=== PATIENT | male | born 1940 | race African-American/Black ===

== ENCOUNTER 2017-01-29 12:52 | Inpatient (IN) | payer OTHER ==
[2017-01-29 13:03] VITALS: BMI 38.0
--- NOTE | 2017-01-29 13:22 | PDOC ---
History of Present Illness - General History Source: Patient, EMS Exam Limitations: No Limitations <Jaden Ponce - Last Filed: 01/29/17 14:12> - History of Present Illness Initial Comments: 01/29/17 13:28 The patient is a 76 year old male with a past medical hx of diabetes, pulmonary HTN, hyperlipidemia, CHF, coronary artery disease s/p stent placement who presents to the ED via EMS from Dr. Sigala office for evaluation of tachycardia. The patient notes he had a routine check up today with his Raw Products Director, Dr. Lyle, who noticed he was tachycardic. He states he was then sent to the ED for further work up and evaluation. The patient reports he has been feel short of breath for the past few days but denies any chest pain or palpitations. The patient denies any nausea, vomiting, diarrhea, fever, chills Raw Products Director: Dr. Lyle <Pam Corrigan - Last Filed: 01/29/17 14:51> - General Chief Complaint: Shortness of Breath Stated Complaint: TACHYCARDIA Time Seen by Provider: 01/29/17 13:02 Past History - Past Medical History Cardiac Disorders: Yes (cardiomyopathy,cad) Diabetes: Yes HTN: Yes Hypercholesterolemia: Yes - Surgical History Cardiac Surgery: Yes - Psycho/Social/Smoking Cessation Hx Anxiety: No Suicidal Ideation: No Smoking Status: No Smoking History: Never smoked Have you smoked in the past 12 months: No Number of Cigarettes Smoked Daily: 0 Information on smoking cessation initiated: No Hx Alcohol Use: No Drug/Substance Use Hx: No Substance Use Type: None Hx Substance Use Treatment: No <Jaden Ponce - Last Filed: 01/29/17 14:12> <Pam Corrigan - Last Filed: 01/29/17 14:51> - Past Medical History Allergies/Adverse Reactions: Allergies Allergy/AdvReac Type Severity Reaction Status Date / Time No Known Allergies Allergy Unverified 01/29/17 12:58 Home Medications: Ambulatory Orders Alendronate Na [Fosamax] 70 mg PO Q7D 01/29/17 Amlodipine Besylate [Norvasc -] 5 mg PO DAILY 01/29/17 Aspirin [Ecotrin] 81 mg PO HS 01/29/17 Atorvastatin Calcium 40 mg PO DAILY 01/29/17 Escitalopram Oxalate [Lexapro -] 10 mg PO DAILY 01/29/17 Furosemide [Lasix] 80 mg PO DAILY 01/29/17 Isosorbide Mononitrate [Imdur -] 0 mg PO DAILY 01/29/17 Linagliptin [Tradjenta] 5 mg PO DAILY 01/29/17 Metoclopramide HCl [Reglan] 5 mg PO BID 01/29/17 Sacubitril/Valsartan [Entresto 24 mg-26 mg Tablet] 1 tab PO BID 01/29/17 Tamsulosin HCl [Flomax] 0.4 mg PO HS 01/29/17 Review of Systems - Review of Systems Able to Perform ROS?: Yes Comments:: 01/29/17 13:29 GENERAL/CONSTITUTIONAL: No fever or chills. No weakness. HEAD, EYES, EARS, NOSE AND THROAT: No change in vision. No ear pain or discharge. No sore throat. CARDIOVASCULAR: No chest pain, palpitations RESPIRATORY: +Shortness of breath. No cough, wheezing, or hemoptysis. GASTROINTESTINAL: No nausea, vomiting, diarrhea or constipation. GENITOURINARY: No dysuria, frequency, or change in urination. MUSCULOSKELETAL: No joint or muscle swelling or pain. No neck or back pain. SKIN: No rash NEUROLOGIC: No headache, vertigo, loss of consciousness, or change in strength/ sensation. ENDOCRINE: No increased thirst. No abnormal weight change. HEMATOLOGIC/LYMPHATIC: No anemia, easy bleeding, or history of blood clots. ALLERGIC/IMMUNOLOGIC: No hives or skin allergy. <Pam Corrigan - Last Filed: 01/29/17 14:51> *Physical Exam - Vital Signs Last Vital Signs Temp Pulse Resp BP Pulse Ox 98.4 F 91 H 22 138/95 100 01/29/17 12:59 01/29/17 12:59 01/29/17 12:59 01/29/17 12:59 01/29/17 12:59 <Jaden Ponce - Last Filed: 01/29/17 14:12> - Vital Signs Last Vital Signs Temp Pulse Resp BP Pulse Ox 98.4 F 91 H 22 138/95 98 01/29/17 12:59 01/29/17 12:59 01/29/17 12:59 01/29/17 12:59 01/29/17 13:17 - Physical Exam Comments: 01/29/17 13:29 GENERAL: Awake, alert, and fully oriented, in no acute distress HEAD: No signs of trauma EYES: PERRLA, EOMI, sclera anicteric, conjunctiva clear ENT: Auricles normal inspection, hearing grossly normal, nares patent, oropharynx clear without exudates. Moist mucosa NECK: Normal ROM, supple, no lymphadenopathy, JVD, or masses LUNGS: Breath sounds equal, clear to auscultation bilaterally. No wheezes, and no crackles HEART: Regular rate and rhythm, normal S1 and S2, no murmurs, rubs or gallops ABDOMEN: Soft, nontender, normoactive bowel sounds. No guarding, no rebound. No masses EXTREMITIES: +Bilateral trace lower extremity edema. Normal range of motion. No clubbing or cyanosis. No cords, erythema, or tenderness NEUROLOGICAL: Cranial nerves II through XII grossly intact. Normal speech, normal gait SKIN: Warm, Dry, normal turgor, no rashes or lesions noted. <Pam Corrigan - Last Filed: 01/29/17 14:51> Heart Score/ECG Review #1 ECG reviewed & interpreted by me at: 13:05 01/29/17 13:17 NSR 86, left axis deviation, RBBB, Q wave V1, no std/ccee, T wave flat III, avF, QTC 512 msec <Jaden Ponce - Last Filed: 01/29/17 14:12> ED Treatment Course - LABORATORY CBC & Chemistry Diagram: 01/29/17 13:25 01/29/17 13:25 - RADIOLOGY Radiology Studies Ordered: Category Date Time Status CHEST X-RAY PORTABLE* [RAD] Stat Radiology 01/29/17 13:03 Ordered <Jaden Ponce - Last Filed: 01/29/17 14:12> - LABORATORY CBC & Chemistry Diagram: 01/29/17 13:25 01/29/17 13:25 - RADIOLOGY Radiograph Interpretation: 01/29/17 14:51 RAD/CHEST X-RAY PORTABLE* Chest: HISTORY: Tachycardia. Frontal view of the chest is provided. Cardiac silhouette appears markedly enlarged and recommend clinical correlation for possible pericardial effusion. There is suspected elevation of the left hemidiaphragm which is at least partially obscured raising possibility of left base infiltrate and/or effusion. There is some cephalization of the vasculature which may reflect pulmonary venous congestion. Right lung appears clear. IMPRESSION: Markedly enlarged cardiac silhouette and recommend clinical correlation for pericardial effusion. Elevation of the left hemidiaphragm is suspected and the left hemidiaphragm is not clearly delineated raising possibility of infiltrate/effusion. Reported By: Pola Davenport MD 01/29/17 1420 <Pam Corrigan - Last Filed: 01/29/17 14:51> Medical Decision Making - Medical Decision Making 01/29/17 13:17 \A portion of this note was documented by scribe services under my direction. I have reviewed the details of the note, within reason, and agree with the documentation with the following case summary and management plan written by me. Patient treated in the ED. Patient arrives by ambulance to the emergency department. Nursing notes are reviewed and incorporated into the medical decision-making. Vital signs reviewed. Peripheral IV access obtained by the nurse, laboratory studies are drawn and sent, reviewed and interpreted by myself. Vital Signs Temp Pulse Resp BP Pulse Ox 98.4 F 91 H 22 138/95 100 01/29/17 12:59 01/29/17 12:59 01/29/17 12:59 01/29/17 12:59 01/29/17 12:59 76-year-old male with past medical history of hypertension, diabetes, hyperlipidemia, coronary disease status post stent, congestive heart failure, pulmonary hypertension sent in by computer programmer Dr. Lyle for SVT. Patient reports feeling short of breath for the last several days but denies any chest pain. Patient went to the computer programmer office and was noted to be SVT at a heart rate 162 with a right bundle branch block. He was given IV adenosine 6 mg and then 5 mg of Lopressor which eventually slowed her heart rate down. Patient' s BNP was checked and was 115. Patient denied palpitations or chest pain. Denies recent illnesses. Came into the ED for further evaluation. Patient continues to report some shortness of breath but denies other symptoms. I suspected that the SVT was the source of the patient's symptoms. However, at the office, patient's SVT appear to be refractory and intermittent tachycardic and normal. Given the nature of the tachycardia, the patient will be admitted. He is complaining of persistent of SOB. Differential includes ACS, CHF, fluid overload. 01/29/17 14:13 CBC, BMP 01/29/17 13:25 01/29/17 13:25 CMP Sodium 144 mmol/L (136-145) 01/29/17 13:25 Potassium 3.9 mmol/L (3.5-5.1) 01/29/17 13:25 Chloride 99 mmol/L (98-107) 01/29/17 13:25 Carbon Dioxide 35 mmol/L (21-32) H 01/29/17 13:25 Anion Gap 10 (8-16) 01/29/17 13:25 BUN 30 mg/dL (7-18) H D 01/29/17 13:25 Creatinine 1.4 mg/dL (0.7-1.3) H 01/29/17 13:25 Creat Clearance w eGFR 49.41 (>60) 01/29/17 13:25 Random Glucose 174 mg/dL (74-106) H D 01/29/17 13:25 Calcium 9.2 mg/dL (8.5-10.1) 01/29/17 13:25 Magnesium 1.5 mg/dL (1.8-2.4) L 01/29/17 13:25 Total Bilirubin 0.5 mg/dL (0.2-1.0) D 01/29/17 13:25 AST 21 U/L (15-37) D 01/29/17 13:25 ALT 30 U/L (12-78) D 01/29/17 13:25 Alkaline Phosphatase 132 U/L (45-117) H D 01/29/17 13:25 Creatine Kinase 147 IU/L (39-308) 01/29/17 13:25 Troponin I 0.07 ng/ml (0.00-0.05) H D 01/29/17 13:25 B-Natriuretic Peptide 504.25 pg/ml (5-450) H 01/29/17 13:25 Total Protein 6.6 g/dl (6.4-8.2) 01/29/17 13:25 Albumin 4.1 g/dl (3.4-5.0) 01/29/17 13:25 Magnesium repletion ordered. Trop 0.07. Likely demand. Pt seen and examined by Dr. Alvarado. Recommends 40 mg IV lasix and aspirin. Case discussed with Dr. Matos who accepts patient for tele observation. <Jaden Ponce - Last Filed: 01/29/17 14:12> *DC/Admit/Observation/Transfer - Discharge Dispostion Admit: Yes <Jaden Ponce - Last Filed: 01/29/17 14:12> - Attestations Scribe Attestion: 01/29/17 13:29 Documentation prepared by Pam Corrigan, acting as medical records coordinator for Jaden Ponce MD, MD/DO. <Pam Corrigan - Last Filed: 01/29/17 14:51> Diagnosis at time of Disposition: Congestive heart failure, Supraventricular tachycardia - Referrals Referrals: Hung Friedman MD [Primary Care Provider] -
[2017-01-29 13:40] LABS: BASOPHIL 0.6 % (0-2.0); EOSINOPHIL 2.6 % (0-4.5); MCH 33.8 pg (25.7-33.7); MCHC 32.6 g/dl (32.0-35.9); MEAN CELL VOLUME 103.7 fl (80-96); MEAN PLT VOLUME 8.6 fl (7.5-11.1); NEUTROPHILS 71.4 % (42.8-82.8); PLATELET COUNT 194 K/MM3 (134-434); RDW 14.2 % (11.9-15.9); WHITE BLOOD COUNT 6.7 K/mm3 (4.0-10.0)
[2017-01-29 13:53] LABS: INR 1.2 (0.82-1.09); PROTHROMBIN TIME (PATIENT) 13.2 SEC (9.98-11.88)
[2017-01-29 13:58] LABS: ALBUMIN 4.1 g/dl (3.4-5.0); BILIRUBIN,TOTAL 0.5 mg/dL (0.2-1.0); CALCIUM 9.2 mg/dL (8.5-10.1); CREATININE 1.4 mg/dL (0.7-1.3); MAGNESIUM 1.5 mg/dL (1.8-2.4); TOT PROT 6.6 g/dl (6.4-8.2)
[2017-01-29 14:01] LABS: TROPONIN I 0.07 ng/ml (0.00-0.05)
[2017-01-29] MEDS ORDERED: ASPIRIN 81 MG CHEWABLE TABLETS PO ONE (14:02)
[2017-01-29] MEDS ORDERED: FUROSEMIDE 40 MG/4 ML INJECTABLE VIAL IVPB ONE (14:02)
[2017-01-29] MEDS ORDERED: ASPIRIN 81 MG CHEWABLE TABLETS ONE (14:06)
[2017-01-29] MEDS ORDERED: FUROSEMIDE 40 MG/4 ML INJECTABLE VIAL ONE (14:06)
--- NOTE | 2017-01-29 14:11 | CON.CARD ---
Consult Consult Specialty:: Cardiology Referred by:: Dr. Friedman/ER Reason for Consultation:: SVT - History of Present Illness Chief Complaint: sent from PMD for SVT History of Present Illness: 75 year old man with a history of HTN, HLD, DM II, CAD with prior stent, chronic diastolic CHF, pulm HTN seen by PMD today found to have in SVT 170bpm, given adenosine x 2 in office but SVT recurred thus referred to ER. Pt. seen and examined in the er in nad. pt c/o sob that has worsened recently, le edema. no chest pain. +palpitations. +edema - History Source History Provided By: Patient, Medical Record Limitations to Obtaining History: No Limitations - Past Medical History Cardio/Vascular: Yes: CAD, HTN, Hyperlipdemia, Pulmonary Hypertension Endocrine: Yes: Diabetes Mellitus - Alcohol/Substance Use Hx Alcohol Use: No - Smoking History Smoking history: Never smoked Have you smoked in the past 12 months: No Aproximately how many cigarettes per day: 0 - Social History Usual Living Arrangement: With Spouse ADL: Independent History of Recent Travel: No Home Medications - Allergies Allergies/Adverse Reactions: Allergies Allergy/AdvReac Type Severity Reaction Status Date / Time No Known Allergies Allergy Unverified 01/29/17 12:58 - Home Medications Home Medications: Ambulatory Orders Alendronate Na [Fosamax] 70 mg PO Q7D 01/29/17 Amlodipine Besylate [Norvasc -] 5 mg PO DAILY 01/29/17 Aspirin [Ecotrin] 81 mg PO HS 01/29/17 Atorvastatin Calcium 40 mg PO DAILY 01/29/17 Escitalopram Oxalate [Lexapro -] 10 mg PO DAILY 01/29/17 Furosemide [Lasix] 80 mg PO DAILY 01/29/17 Isosorbide Mononitrate [Imdur -] 30 mg PO BID 01/29/17 Linagliptin [Tradjenta] 5 mg PO DAILY 01/29/17 Metoclopramide HCl [Reglan] 5 mg PO BID 01/29/17 Sacubitril/Valsartan [Entresto 24 mg-26 mg Tablet] 1 tab PO BID 01/29/17 Tamsulosin HCl [Flomax] 0.4 mg PO HS 01/29/17 Family Disease History - Family Disease History Family History: Denies Review of Systems - Review of Systems Constitutional: reports: Weakness. denies: No Symptoms, Chills, Diaphoresis, Fever, Lethargy, Loss of Appetite, Malaise, Night Sweats, Unintentional Wgt. Loss, Other Eyes: denies: No Symptoms, Blind Spots, Blurred Vision, Double Vision, Eye Pain , Floaters, Photophobia, Recent Change in Vision, Other HENT: denies: No Symptoms, Difficult Swallowing, Ear Discharge, Ear Pain, Epistaxis, Gingival Bleeding, Hearing Loss, Mouth Swelling, Nasal Congestion, Ocular Prosthesis, Throat Pain, Toothache, Ringing in Ears, Other Neck: denies: No Symptoms, Decreased ROM, Lumps, Pain on Movement, Stiffness, Swollen Glands, Tenderness, Other Cardiovascular: reports: Edema, Palpitations, Shortness of Breath. denies: No Symptoms, Chest Pain, Other Respiratory: reports: Exercise Intolerance, Orthopnea, SOB, SOB on Exertion. denies: No Symptoms, Cough, Hemoptysis, PND, Snoring, Wheezing, Other Gastrointestinal: reports: Bloating. denies: No Symptoms, Abdominal Pain, Constipation, Diarrhea, Dysphagia, Indigestion, Melena, Nausea, Rectal Bleeding , Vomiting, Vomiting Blood, Other Breasts: denies: No Symptoms Reported, See HPI, Breast Implants, Discharge from Nipple, Lumps, Pain, Skin Changes, Other Musculoskeletal: denies: No Symptoms, Back Pain, Crepitus, Decreased ROM, Extremity Pain, Joint Pain, Joint Swelling, Muscle Pain, Muscle Cramps, Muscle Weakness, Other Integumentary: denies: No Symptoms, Blister, Bruising, Change in Color, Eczema, Erythema, Incision, Lesions, Lump, Pallor, Pruritis, Rash, Wound, Other Neurological: denies: No Symptoms, Change in LOC, Change in Speech, Confusion, Dizziness, Headache, Incoordination, Numbness, Parasthesia, Pre-Existing Deficit , Seizure, Syncope, Tremors, Unsteady Gait, Weakness, Other Endocrine: denies: No Symptoms, Excessive Sweating, Flushing, Increased Hunger, Increased Thirst, Intolerance to Cold, Intolerance to Heat, Unexplained Weight Gain, Unexplained Weight Loss, Other Hematology/Lymphatic: denies: No Symptoms, Easily Bruised, Excessive Bleeding, Swollen Glands, Other Psychiatric: denies: No Symptoms, Altered Sleep Pattern, Anxiety, Depression, Hallucinations, Panic, Paranoia, Suicidal, Other - Risk Factors Known Risk Factors: Yes: Diabetes Mellitus, Hypercholesterolemia, Hypertension Vital Signs: Vital Signs Temperature 98.4 F 01/29/17 12:59 Pulse Rate 91 H 01/29/17 12:59 Respiratory Rate 22 01/29/17 12:59 Blood Pressure 138/95 01/29/17 12:59 O2 Sat by Pulse Oximetry (%) 98 01/29/17 13:17 Constitutional: Yes: No Distress, Calm, Obese Eyes: Yes: Conjunctiva Clear, EOM Intact, PERRL HENT: Yes: Atraumatic, Normocephalic Neck: Yes: Supple, Trachea Midline Respiratory: Yes: Regular, Diminished, On Nasal O2, Rales. No: Rhonchi, SOB, Wheezes Gastrointestinal: Yes: Normal Bowel Sounds, Soft. No: Distention, Tenderness Cardiovascular: Yes: Regular Rate and Rhythm. No: Bradycardia, Tachycardia, Pulse Irregular, Gallop, Rub, Varicosities JVD: No Carotid Bruit: No PMI: Non-Displaced Heart Sounds: Yes: S1, S2. No: Split S2, S3, S4, Clicks, Gallop, Rub, Bruit Murmur: No: Systolic Murmur, Diastolic Murmur Extremities: Yes: WNL Edema: Yes Edema: LLE: 1+, RLE: 1+ Peripheral Pulses WNL: Yes Peripheral Pulses: 2+ Left Doralis Pedis, 2+ Right Dorsalis Pedis Integumentary: Yes: WNL Neurological: Yes: Alert, Oriented Psychiatric: Yes: Alert, Oriented - Other Data Labs, Other Data: CBC, BMP 01/29/17 13:25 01/29/17 13:25 INR, PTT INR 1.20 (0.82-1.09) H 01/29/17 13:25 Troponin, BNP 01/29/17 13:25 Troponin I 0.07 H D B-Natriuretic Peptide 504.25 H Troponin, BNP 01/29/17 13:25 Troponin I 0.07 H D B-Natriuretic Peptide 504.25 H ekg-nsr Echo: Report Reviewed Prior Cardiac Procedures: PTCA with Stent Imaging - Results Chest X-ray: Report Reviewed, Image Reviewed EKG: Report Reviewed, Image Reviewed Other: Report Reviewed, Image Reviewed Assessment/Plan 75 year old man with a history of HTN, HLD, DM II, CAD with prior stent, chronic diastolic CHF, pulm HTN seen by PMD today found to have in SVT 170bpm, given adenosine x 2 in office but SVT recurred thus referred to ER. Pt. seen and examined in the er in nad. pt c/o sob that has worsened recently, le edema. no chest pain. +palpitations. +edema PSVT-broke to NSR after adenosine in office -tele monitoring -plan to start bblocker if tolerates from pulm perspective SOB-Acute on chronic combined systolic/diastolic chf, pulm hnt -start IV lasix -cont other home meds -supp O2 -follow up pulm htn at [facility] -cont adcirca CAD- prior cath as below Cardiac cath 12/08/14 One vessel CAD, left circumflex, patent intervention sites of proximal LAD diag1 and ramus intermedius, minimal systolic dysfunction of the left ventricle, right sided pressures are elevated. Pulmonary capillary wedge pressures increased. LVEDP is moderately elevated, post-nitroglycerin right-sided pressures are increased, mild pulmonary hypertension, pulmonary capillary wedge pressure is increased likely consistent with LV diastolic dysfunction as opposed to primary pulmonary hypertension.
[2017-01-29] MEDS ORDERED: MAGNESIUM SULF 50% (8.12 MEQ/2 ML-1 GM VIAL) IVPB ONE (14:13)
[2017-01-29] MEDS ORDERED: MAGNESIUM SULF 50% (8.12 MEQ/2 ML-1 GM VIAL) ONE (14:25)
[2017-01-29 15:12] LABS: THYROID STIMULATING HORMONE 2.48 uIU/ml (0.358-3.74)
--- NOTE | 2017-01-29 17:07 | EKG ---
Test Reason : Blood Pressure : / mmHG Vent. Rate : 086 BPM Atrial Rate : 086 BPM P-R Int : 164 ms QRS Dur : 168 ms QT Int : 428 ms P-R-T Axes : 052 -51 020 degrees QTc Int : 512 ms SINUS RHYTHM WITH PREMATURE ATRIAL COMPLEXES WITH ABERRANT CONDUCTION LEFT AXIS DEVIATION RIGHT BUNDLE BRANCH BLOCK SEPTAL INFARCT , AGE UNDETERMINED ABNORMAL ECG WHEN COMPARED WITH ECG OF 11-AUG-2013 09:37, SEPTAL INFARCT IS NOW PRESENT CRITERIA FOR INFERIOR INFARCT ARE NO LONGER PRESENT NONSPECIFIC T WAVE ABNORMALITY HAS REPLACED INVERTED T WAVES IN INFERIOR LEADS T WAVE INVERSION NO LONGER EVIDENT IN ANTERIOR LEADS Confirmed by RUDDY HO MD ([id number]) on 01/29/2017 5:07:15 PM Referred By: Confirmed By:RUDDY HO MD
[2017-01-29] MEDS ORDERED: PT OWN MED DRAWER 7, Y5N ONE (21:50)
--- NOTE | 2017-01-30 01:00 | HP ---
Admitting History and Physical - Admission Chief Complaint: Tachycardia History of Present Illness: Pt is a 76 y/o morbidly obese male w/ PMH significant for HTN, HLD, CAD s/p cardiac stents, CHF, anxiety and diabetes. 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 In the ER pt found to have heart rate of 90's. However pt complained of generalized abdominal pain w/ nausea. Pt denies any chest pain, sob or palpitationss. Pt is anxious. History Source: Patient - Past Medical History Cardiovascular: Yes: CAD, HTN, Hyperlipdemia, Pulmonary Hypertension Endocrine: Yes: Diabetes Mellitus - Smoking History Smoking history: Never smoked Have you smoked in the past 12 months: No Aproximately how many cigarettes per day: 0 - Alcohol/Substance Use Hx Alcohol Use: No - Social History ADL: Independent History of Recent Travel: No Home Medications - Allergies Allergies/Adverse Reactions: Allergies Allergy/AdvReac Type Severity Reaction Status Date / Time No Known Allergies Allergy Unverified 01/29/17 12:58 - Home Medications Home Medications: Ambulatory Orders Alendronate Na [Fosamax] 70 mg PO Q7D 01/29/17 Amlodipine Besylate [Norvasc -] 5 mg PO DAILY 01/29/17 Aspirin [Ecotrin] 81 mg PO HS 01/29/17 Atorvastatin Calcium 40 mg PO DAILY 01/29/17 Escitalopram Oxalate [Lexapro -] 10 mg PO DAILY 01/29/17 Furosemide [Lasix] 80 mg PO DAILY 01/29/17 Isosorbide Mononitrate [Imdur -] 30 mg PO BID 01/29/17 Linagliptin [Tradjenta] 5 mg PO DAILY 01/29/17 Metoclopramide HCl [Reglan] 5 mg PO BID 01/29/17 Sacubitril/Valsartan [Entresto 24 mg-26 mg Tablet] 1 tab PO BID 01/29/17 Tamsulosin HCl [Flomax] 0.4 mg PO HS 01/29/17 Family Disease History - Family Disease History Family History: Unremarkable Review of Systems - Review of Systems Constitutional: reports: No Symptoms Eyes: reports: No Symptoms HENT: reports: No Symptoms Neck: reports: No Symptoms Cardiovascular: reports: Palpitations Respiratory: reports: No Symptoms Gastrointestinal: reports: Abdominal Pain Physical Examination Vital Signs: Vital Signs Temperature 98 F 01/29/17 21:55 Pulse Rate 84 01/29/17 21:55 Respiratory Rate 16 01/29/17 21:55 Blood Pressure 155/67 01/29/17 21:55 O2 Sat by Pulse Oximetry (%) 100 01/29/17 20:16 Constitutional: Yes: Well Nourished, Obese Eyes: Yes: WNL HENT: Yes: WNL Neck: Yes: Supple Cardiovascular: Yes: Tachycardia Respiratory: Yes: WNL, Regular, CTA Bilaterally Gastrointestinal: Yes: WNL, Normal Bowel Sounds, Soft, Abdomen, Obese Musculoskeletal: Yes: WNL Extremities: Yes: WNL Edema: No Neurological: Yes: WNL, Alert, Oriented ...Motor Strength: WNL Problem List - Problems (1) PSVT (paroxysmal supraventricular tachycardia) Assessment/Plan: Admitted to tele Elevated troponin due to demand iscxhemia Cardio consult Code(s): I47.1 - SUPRAVENTRICULAR TACHYCARDIA (2) CHF (congestive heart failure) Assessment/Plan: Cont lasix/entresta Check echo Cardio consult Code(s): I50.9 - HEART FAILURE, UNSPECIFIED (3) Diabetes Assessment/Plan: Cont tradjenta Code(s): E11.9 - TYPE 2 DIABETES MELLITUS WITHOUT COMPLICATIONS (4) Hypertension Assessment/Plan: BP stable Cont asa/norvasc/imdur Code(s): I10 - ESSENTIAL (PRIMARY) HYPERTENSION (5) HLD (hyperlipidemia) Assessment/Plan: Cont lipitor Code(s): E78.5 - HYPERLIPIDEMIA, UNSPECIFIED (6) BPH (benign prostatic hyperplasia) Assessment/Plan: Cont flomax Code(s): N40.0 - BENIGN PROSTATIC HYPERPLASIA WITHOUT LOWER URINRY TRACT SYMP (7) Depression Assessment/Plan: Contr lexapro Code(s): F32.9 - MAJOR DEPRESSIVE DISORDER, SINGLE EPISODE, UNSPECIFIED (8) Morbid obesity Code(s): E66.01 - MORBID (SEVERE) OBESITY DUE TO EXCESS CALORIES
[2017-01-30] MEDS ORDERED: PT OWN MED DRAWER 7, Y5N ONE ×3 (02:17→21:22)
[2017-01-30] MEDS: sitaGLIPtin PHOSPHATE 100 MG TABLET (FP) PO SCH (06:20)
[2017-01-30] MEDS: METOCLOPRAMIDE HCL 10 MG TABLET (FP) PO SCH ×2 (06:20→16:50)
[2017-01-30 07:42] LABS: TROPONIN I 0.06 ng/ml (0.00-0.05)
--- NOTE | 2017-01-30 09:08 | PN ---
Progress Note, Physician Chief Complaint: no distress History of Present Illness: recurrent PSVT overnight broke w/ valsalva - Current Medication List Current Medications: Active Medications Amlodipine Besylate (Norvasc -) 5 mg PO DAILY [facility] Aspirin (Ecotrin -) 81 mg PO HS [facility] Atorvastatin Calcium (Lipitor -) 40 mg PO HS [facility] Escitalopram Oxalate (Lexapro -) 10 mg PO DAILY [facility] Furosemide (Lasix Injection -) 40 mg IVPB DAILY [facility] Heparin Sodium (Porcine) (Heparin -) 5,000 unit SQ BID [facility] Isosorbide Mononitrate (Imdur -) 30 mg PO BID [facility] Metoclopramide HCl (Reglan -) 5 mg PO BIDAC [facility] Last Admin: 01/30/17 06:20 Dose: 5 mg Metoprolol Succinate (Toprol Xl -) 25 mg PO DAILY [facility] Non-Formulary Medication (Alendronate Na [Fosamax (Weekly)]) 70 mg PO Mo@0630 [facility] Sitagliptin Phosphate (Januvia -) 100 mg PO DAILY@0700 [facility] Last Admin: 01/30/17 06:20 Dose: 100 mg Tamsulosin HCl (Flomax -) 0.4 mg PO HS [facility] - Objective Vital Signs: Vital Signs Temperature 98.4 F 01/30/17 06:00 Pulse Rate 81 01/30/17 06:00 Respiratory Rate 20 01/30/17 06:00 Blood Pressure 129/65 01/30/17 06:00 O2 Sat by Pulse Oximetry (%) 100 01/29/17 20:16 Constitutional: Yes: No Distress Eyes: Yes: Conjunctiva Clear Cardiovascular: Yes: Regular Rate and Rhythm Respiratory: Yes: CTA Bilaterally Gastrointestinal: Yes: Soft, Abdomen, Obese Edema: No Neurological: Yes: Alert Labs: INR, PTT INR 1.20 (0.82-1.09) H 01/29/17 13:25 Assessment/Plan PSVT PHTN REC: Add Toprol 25mg daily Continue tele. Echo today.
[2017-01-30] MEDS: SACUBITRIL/VALSARTAN 24 MG-26 MG TABLET PO SCH ×2 (09:32→21:27)
[2017-01-30] MEDS: METOPROLOL SUCCINATE 25 MG TAB.SR.24H (FP) PO SCH (09:32)
[2017-01-30] MEDS: ISOSORBIDE MONONITRATE 30 MG TAB.SR.24H (FP) PO SCH ×2 (09:32→21:27)
[2017-01-30] MEDS: amLODIPine BESYLATE 5 MG TABLET (FP) PO SCH (09:32)
[2017-01-30] MEDS: ESCITALOPRAM OXALATE 10 MG TABLET (FP) PO SCH (09:32)
[2017-01-30] MEDS: HEPARIN NA (PORCINE) 5,000 UNITS/ML 1ML VIAL SQ SCH ×2 (09:33→21:27)
[2017-01-30] MEDS: FUROSEMIDE 40 MG/4 ML INJECTABLE VIAL IVPB SCH (09:33)
[2017-01-30] MEDS ORDERED: PATIENT'S OWN MEDICATION (NON-FORMULARY) (Furosemide [Lasix] 80 MG) PO SCH (10:00)
[2017-01-30] MEDS ORDERED: METOPROLOL TARTRATE 5 MG/5 ML VIAL ONE (10:11)
[2017-01-30] MEDS ORDERED: METOPROLOL TARTRATE 5 MG/5 ML VIAL IVPUSH ONE (10:30)
[2017-01-30 13:24] LABS: THYROID STIMULATING HORMONE 1.85 uIU/ml (0.358-3.74)
--- NOTE | 2017-01-30 15:44 | PN ---
Progress Note (short form) - Note Progress Note: PULMONARY CONSULTATION DICTATED 01/30/17 IMP DYSPNEA DECOMPENSATED CHF PULMONARY HTN DM HTN MORBID OBESITY LIKELY OSAS PLAN LASIX O2 INHALED BRONCHODILATORS PRN DAILY WTS CHEST CT SLEEP STUDIES OUTPATIENT DR CARPENTER Problem List - Problems (1) CHF (congestive heart failure) Code(s): I50.9 - HEART FAILURE, UNSPECIFIED (2) Pulmonary HTN Code(s): I27.2 - OTHER SECONDARY PULMONARY HYPERTENSION (3) Diabetes Code(s): E11.9 - TYPE 2 DIABETES MELLITUS WITHOUT COMPLICATIONS (4) Hypertension Code(s): I10 - ESSENTIAL (PRIMARY) HYPERTENSION (5) Morbid obesity Code(s): E66.01 - MORBID (SEVERE) OBESITY DUE TO EXCESS CALORIES
--- NOTE | 2017-01-30 17:16 | CONS ---
DATE OF CONSULTATION: 01/30/2017 PULMONARY CONSULTATION REFERRING PHYSICIAN: Ariana Matos M.D. HISTORY OF PRESENT ILLNESS: The patient is a 76-year-old black male past medical history of chronic diastolic CHF, pulmonary hypertension, chronic hypoxemia maintained on home O2, hypertension, hyperlipidemia, type 2 diabetes mellitus, ASHD status post stent, admitted to [facility], found by PMD to have SVT with a heart rate of 170. The patient was given adenosine in the office, but the SVT recurred, at which time the patient presented to the emergency room. Patient also noticed the past month or so progressive increasing shortness of breath and dyspnea on exertion, also having increasing lower extremity edema. He complained of no chest pain, had some palpitations. He also noted increasing lower extremity swelling. Denies any nausea, vomiting, diaphoresis. Denies any fevers or chills. He is a nonsmoker. He denies any history of COPD or asthma in the past. Patient complains of orthopnea, states that he snores, and has occasional daytime sleepiness. PAST MEDICAL HISTORY: Again, was hypertension, hyperlipidemia, type 2 diabetes mellitus, ASHD status post stent, chronic diastolic CHF, pulmonary hypertension. SOCIAL HISTORY: Nonsmoker. 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 REVIEW OF SYSTEMS: Positive orthopnea. Positive dyspnea. Positive palpitations. No chest pain. No nausea. No vomiting. Positive lower extremity edema. CURRENT MEDICATIONS: Include Flomax, heparin, lexapro, Toprol, Norvasc, Januvia , Lipitor, Lasix, Imdur, Ecotrin, and Reglan. PHYSICAL EXAMINATION: General: The patient is a well-developed, male, awake, alert, in no acute distress. He is out of bed in chair. Vital signs: He is afebrile. Blood pressure is 119/72, respiratory rate 20, O2 saturation is 100% on 3 L, and heart rate is 78. HEENT: Head is normocephalic, atraumatic. Neck: Supple. Heart: Regular. S1, S2. Chest: Bilateral crackles throughout. Abdomen: Soft. Bowel sounds positive. Extremities: 1+ edema bilaterally. LABORATORY: WBCs 6.7, hematocrit 11.5, hematocrit 35.4, platelet count 194, 000. INR 1.2 BUN 30, creatinine 1.4, hemoglobin A1c is 7.3. BNP is 504. Chest x-ray, cardiomegaly, marked cardiomegaly. Elevated left hemidiaphragm. Mild pulmonary vascular congestion. IMPRESSION: 1. Dyspnea, most likely secondary to mild decompensated congestive heart failure. 2. Pulmonary hypertension. 3. Atherosclerotic heart disease status post stent. 4. Diabetes. PLAN: Continue IV Lasix. Supplemental O2. Daily weights. Inhaled bronchodilators p.r.n. Followup chest x-ray. Also consider sleep study as an outpatient to rule out obstructive sleep apnea. Also will get a CT scan of the chest to further evaluate pulmonary parenchyma . RAFAL CARPENTER M.D. [id number] MTDD
[2017-01-30] MEDS ORDERED: KETOROLAC TROMETHAMINE 30 MG/1 ML VIAL IVPB ONE (20:00)
[2017-01-30] MEDS ORDERED: KETOROLAC TROMETHAMINE 30 MG/1 ML VIAL IVPUSH ONE (20:15)
[2017-01-30] MEDS: ASPIRIN COATED 81 MG TABLET.EC PO SCH (21:27)
[2017-01-30] MEDS: ATORVASTATIN CA 40 MG TABLET (FP) PO SCH (21:27)
[2017-01-30] MEDS: TAMSULOSIN HCL 0.4 MG CAP.ER.24H (FP) PO SCH (21:27)
--- NOTE | 2017-01-30 23:32 | PN ---
Progress Note, Physician History of Present Illness: No new complaints - Current Medication List Current Medications: Active Medications Amlodipine Besylate (Norvasc -) 5 mg PO DAILY [facility] Last Admin: 01/30/17 09:32 Dose: 5 mg Aspirin (Ecotrin -) 81 mg PO HS [facility] Last Admin: 01/30/17 21:27 Dose: 81 mg Atorvastatin Calcium (Lipitor -) 40 mg PO HS [facility] Last Admin: 01/30/17 21:27 Dose: 40 mg Escitalopram Oxalate (Lexapro -) 10 mg PO DAILY [facility] Last Admin: 01/30/17 09:32 Dose: 10 mg Furosemide (Lasix Injection -) 40 mg IVPB DAILY [facility] Last Admin: 01/30/17 09:33 Dose: 40 mg Heparin Sodium (Porcine) (Heparin -) 5,000 unit SQ BID [facility] Last Admin: 01/30/17 21:27 Dose: 5,000 unit Isosorbide Mononitrate (Imdur -) 30 mg PO BID [facility] Last Admin: 01/30/17 21:27 Dose: 30 mg Metoclopramide HCl (Reglan -) 5 mg PO BIDAC [facility] Last Admin: 01/30/17 16:50 Dose: Not Given Metoprolol Succinate (Toprol Xl -) 25 mg PO DAILY [facility] Last Admin: 01/30/17 09:32 Dose: 25 mg Sitagliptin Phosphate (Januvia -) 100 mg PO DAILY@0700 [facility] Last Admin: 01/30/17 06:20 Dose: 100 mg Tamsulosin HCl (Flomax -) 0.4 mg PO HS [facility] Last Admin: 01/30/17 21:27 Dose: 0.4 mg - Objective Vital Signs: Vital Signs Temperature 98.6 F 01/30/17 22:00 Pulse Rate 74 01/30/17 22:00 Respiratory Rate 18 01/30/17 22:00 Blood Pressure 130/74 01/30/17 22:00 O2 Sat by Pulse Oximetry (%) 100 01/30/17 20:45 Constitutional: Yes: Well Nourished, Obese Neck: Yes: WNL Cardiovascular: Yes: WNL, Regular Rate and Rhythm Respiratory: Yes: WNL, Regular, CTA Bilaterally Gastrointestinal: Yes: WNL, Normal Bowel Sounds, Soft, Abdomen, Obese Labs: INR, PTT INR 1.20 (0.82-1.09) H 01/29/17 13:25 Problem List - Problems (1) BPH (benign prostatic hyperplasia) Code(s): N40.0 - BENIGN PROSTATIC HYPERPLASIA WITHOUT LOWER URINRY TRACT SYMP (2) CHF (congestive heart failure) Code(s): I50.9 - HEART FAILURE, UNSPECIFIED (3) Diabetes Code(s): E11.9 - TYPE 2 DIABETES MELLITUS WITHOUT COMPLICATIONS (4) HLD (hyperlipidemia) Code(s): E78.5 - HYPERLIPIDEMIA, UNSPECIFIED (5) Hypertension Code(s): I10 - ESSENTIAL (PRIMARY) HYPERTENSION (6) PSVT (paroxysmal supraventricular tachycardia) Code(s): I47.1 - SUPRAVENTRICULAR TACHYCARDIA
[2017-01-31] MEDS: sitaGLIPtin PHOSPHATE 100 MG TABLET (FP) PO SCH (06:05)
[2017-01-31] MEDS: METOCLOPRAMIDE HCL 10 MG TABLET (FP) PO SCH ×2 (06:05→16:29)
[2017-01-31 07:56] LABS: BASOPHIL 0.5 % (0-2.0); EOSINOPHIL 3.8 % (0-4.5); MCH 33.5 pg (25.7-33.7); MCHC 32.1 g/dl (32.0-35.9); MEAN CELL VOLUME 104.2 fl (80-96); MEAN PLT VOLUME 8.7 fl (7.5-11.1); NEUTROPHILS 67.6 % (42.8-82.8); PLATELET COUNT 168 K/MM3 (134-434); RDW 14.5 % (11.9-15.9); WHITE BLOOD COUNT 5.3 K/mm3 (4.0-10.0)
[2017-01-31 08:15] LABS: ALBUMIN 3.5 g/dl (3.4-5.0); CALCIUM 8.6 mg/dL (8.5-10.1); CREATININE 1.2 mg/dL (0.7-1.3)
[2017-01-31 08:17] LABS: BILIRUBIN,TOTAL 0.5 mg/dL (0.2-1.0); TOT PROT 6.1 g/dl (6.4-8.2)
[2017-01-31] MEDS: ESCITALOPRAM OXALATE 10 MG TABLET (FP) PO SCH (09:01)
[2017-01-31] MEDS: ISOSORBIDE MONONITRATE 30 MG TAB.SR.24H (FP) PO SCH ×2 (09:01→21:23)
[2017-01-31] MEDS: FUROSEMIDE 40 MG/4 ML INJECTABLE VIAL IVPB SCH (09:02)
[2017-01-31] MEDS: HEPARIN NA (PORCINE) 5,000 UNITS/ML 1ML VIAL SQ SCH ×2 (09:02→21:20)
[2017-01-31] MEDS: METOPROLOL SUCCINATE 25 MG TAB.SR.24H (FP) PO SCH (09:02)
[2017-01-31] MEDS: amLODIPine BESYLATE 5 MG TABLET (FP) PO SCH (09:02)
[2017-01-31] MEDS: SACUBITRIL/VALSARTAN 24 MG-26 MG TABLET PO SCH ×2 (09:02→21:22)
--- NOTE | 2017-01-31 09:37 | PN ---
Progress Note, Physician Chief Complaint: Pt A&OX3; occasional palpitations and SOB; sitting up at bedside. History of Present Illness: The patient is a 76 year old black male with a past medical hx of diabetes, pulmonary HTN, hyperlipidemia, obesity, CHF, coronary artery disease s/p stent placement (x 2; the latest about 4 yrs ago at [facility], per pt's ), who presents to the ED via EMS from Dr. Sigala office for evaluation of tachycardia. The patient notes he had a routine check up today with his Sustainment Logistics Analyst, Dr. Lyle, who noticed he was tachycardic. He states he was then sent to the ED for further work up and evaluation. The patient reports he has been feel short of breath for the past few days but denies any chest pain or palpitations. The patient denies any nausea, vomiting, diarrhea, fever, chills Sustainment Logistics Analyst: Dr. Lyle - Current Medication List Current Medications: Active Medications Amlodipine Besylate (Norvasc -) 5 mg PO DAILY [facility] Last Admin: 01/31/17 09:02 Dose: 5 mg Aspirin (Ecotrin -) 81 mg PO HS [facility] Last Admin: 01/30/17 21:27 Dose: 81 mg Atorvastatin Calcium (Lipitor -) 40 mg PO HS [facility] Last Admin: 01/30/17 21:27 Dose: 40 mg Escitalopram Oxalate (Lexapro -) 10 mg PO DAILY [facility] Last Admin: 01/31/17 09:01 Dose: 10 mg Furosemide (Lasix Injection -) 40 mg IVPB DAILY [facility] Last Admin: 01/31/17 09:02 Dose: 40 mg Heparin Sodium (Porcine) (Heparin -) 5,000 unit SQ BID [facility] Last Admin: 01/31/17 09:02 Dose: 5,000 unit Isosorbide Mononitrate (Imdur -) 30 mg PO BID [facility] Last Admin: 01/31/17 09:01 Dose: 30 mg Metoclopramide HCl (Reglan -) 5 mg PO BIDAC [facility] Last Admin: 01/31/17 06:05 Dose: 5 mg Metoprolol Succinate (Toprol Xl -) 25 mg PO DAILY [facility] Last Admin: 01/31/17 09:02 Dose: 25 mg Sitagliptin Phosphate (Januvia -) 100 mg PO DAILY@0700 [facility] Last Admin: 01/31/17 06:05 Dose: 100 mg Tamsulosin HCl (Flomax -) 0.4 mg PO HS [facility] Last Admin: 01/30/17 21:27 Dose: 0.4 mg - Objective Vital Signs: Vital Signs Temperature 98.8 F 01/31/17 06:22 Pulse Rate 88 01/31/17 06:22 Respiratory Rate 20 01/31/17 06:22 Blood Pressure 126/78 01/31/17 06:22 O2 Sat by Pulse Oximetry (%) 100 01/30/17 20:45 Constitutional: Yes: No Distress Eyes: Yes: WNL HENT: Yes: WNL Neck: Yes: WNL Respiratory: Yes: Regular Gastrointestinal: Yes: Soft ...Rectal Exam: Yes: Deferred Genitourinary: No: Anuria Breast(s): Yes: WNL Musculoskeletal: Yes: WNL Extremities: Yes: WNL Edema: Yes Edema: LLE: Trace, RLE: Trace Peripheral Pulses WNL: Yes Integumentary: Yes: WNL Neurological: Yes: Alert, Oriented Labs: CBC, BMP 01/31/17 05:35 01/31/17 05:35 INR, PTT INR 1.20 (0.82-1.09) H 01/29/17 13:25 Problem List - Problems (1) Diabetes Code(s): E11.9 - TYPE 2 DIABETES MELLITUS WITHOUT COMPLICATIONS (2) Hypertension Code(s): I10 - ESSENTIAL (PRIMARY) HYPERTENSION (3) Morbid obesity Code(s): E66.01 - MORBID (SEVERE) OBESITY DUE TO EXCESS CALORIES (4) Pulmonary HTN Code(s): I27.2 - OTHER SECONDARY PULMONARY HYPERTENSION (5) PSVT (paroxysmal supraventricular tachycardia) Assessment/Plan: recurrent PSVT this morning; pt "bears down" to make it stop. Will increase metoprolol ER to 50 mg daily. F/u electrolytes (Mg 1.5 recently). Code(s): I47.1 - SUPRAVENTRICULAR TACHYCARDIA
[2017-01-31 10:25] LABS: MAGNESIUM 1.8 mg/dL (1.8-2.4)
[2017-01-31] MEDS: METOPROLOL SUCCINATE 50 MG TAB.SR.24H (FP) PO SCH (10:40)
[2017-01-31] MEDS ORDERED: METOPROLOL SUCCINATE 25 MG TAB.SR.24H (FP) ONE (10:41)
--- NOTE | 2017-01-31 11:32 | PN ---
Progress Note, Physician History of Present Illness: PULMONARY ALERT,FEELING BETTER ,LESS DYSPNEIC. - Current Medication List Current Medications: Active Medications Amlodipine Besylate (Norvasc -) 5 mg PO DAILY [facility] Last Admin: 01/31/17 09:02 Dose: 5 mg Aspirin (Ecotrin -) 81 mg PO HS [facility] Last Admin: 01/30/17 21:27 Dose: 81 mg Atorvastatin Calcium (Lipitor -) 40 mg PO HS [facility] Last Admin: 01/30/17 21:27 Dose: 40 mg Escitalopram Oxalate (Lexapro -) 10 mg PO DAILY [facility] Last Admin: 01/31/17 09:01 Dose: 10 mg Furosemide (Lasix Injection -) 40 mg IVPB DAILY [facility] Last Admin: 01/31/17 09:02 Dose: 40 mg Heparin Sodium (Porcine) (Heparin -) 5,000 unit SQ BID [facility] Last Admin: 01/31/17 09:02 Dose: 5,000 unit Isosorbide Mononitrate (Imdur -) 30 mg PO BID [facility] Last Admin: 01/31/17 09:01 Dose: 30 mg Metoclopramide HCl (Reglan -) 5 mg PO BIDAC [facility] Last Admin: 01/31/17 06:05 Dose: 5 mg Metoprolol Succinate (Toprol Xl -) 50 mg PO DAILY [facility] Last Admin: 01/31/17 10:40 Dose: Not Given Sitagliptin Phosphate (Januvia -) 100 mg PO DAILY@0700 [facility] Last Admin: 01/31/17 06:05 Dose: 100 mg Tamsulosin HCl (Flomax -) 0.4 mg PO HS [facility] Last Admin: 01/30/17 21:27 Dose: 0.4 mg - Objective Vital Signs: Vital Signs Temperature 98.8 F 01/31/17 09:00 Pulse Rate 77 01/31/17 09:00 Respiratory Rate 20 01/31/17 09:00 Blood Pressure 124/66 01/31/17 09:00 O2 Sat by Pulse Oximetry (%) 100 01/31/17 09:00 Constitutional: Yes: Well Nourished, Calm Eyes: Yes: WNL HENT: Yes: WNL Neck: Yes: WNL Cardiovascular: Yes: Regular Rate and Rhythm, S1, S2 Respiratory: Yes: Rales (BILATERAL CRACKLES) Gastrointestinal: Yes: Normal Bowel Sounds, Soft Extremities: Yes: WNL Edema: Yes Labs: CBC, BMP 01/31/17 05:35 01/31/17 05:35 INR, PTT INR 1.20 (0.82-1.09) H 01/29/17 13:25 Problem List - Problems (1) CHF (congestive heart failure) Code(s): I50.9 - HEART FAILURE, UNSPECIFIED (2) Pulmonary HTN Code(s): I27.2 - OTHER SECONDARY PULMONARY HYPERTENSION (3) Diabetes Code(s): E11.9 - TYPE 2 DIABETES MELLITUS WITHOUT COMPLICATIONS (4) Hypertension Code(s): I10 - ESSENTIAL (PRIMARY) HYPERTENSION (5) Morbid obesity Code(s): E66.01 - MORBID (SEVERE) OBESITY DUE TO EXCESS CALORIES Assessment/Plan IMP DYSPNEA DECOMPENSATED CHF PULMONARY HTN DM HTN MORBID OBESITY LIKELY OSAS PLAN LASIX O2 INHALED BRONCHODILATORS PRN DAILY WTS CHEST CT SLEEP STUDIES OUTPATIENT DR CARPENTER Problem List - Problems (1) CHF (congestive heart failure) Code(s): I50.9 - HEART FAILURE, UNSPECIFIED (2) Pulmonary HTN Code(s): I27.2 - OTHER SECONDARY PULMONARY HYPERTENSION (3) Diabetes Code(s): E11.9 - TYPE 2 DIABETES MELLITUS WITHOUT COMPLICATIONS (4) Hypertension Code(s): I10 - ESSENTIAL (PRIMARY) HYPERTENSION (5) Morbid obesity Code(s): E66.01 - MORBID (SEVERE) OBESITY DUE TO EXCESS CALORIES
[2017-01-31 15:52] LABS: URINE APPEARANCE CLEAR; URINE BILIRUBIN NEGATIVE (NEGATIVE); URINE BLOOD NEGATIVE (NEGATIVE); URINE COLOR YELLOW; URINE GLUCOSE (UA) NEGATIVE (NEGATIVE); URINE KETONE NEGATIVE (NEGATIVE); URINE LEUK ESTERASE NEGATIVE (NEGATIVE); URINE NITRITE NEGATIVE (NEGATIVE); URINE PROTEIN NEGATIVE (NEGATIVE); URINE UROBILINOGEN NEGATIVE E.U./dl (0.2-1.0)
[2017-01-31] MEDS ORDERED: PT OWN MED DRAWER 7, Y5N ONE (21:11)
[2017-01-31] MEDS: ATORVASTATIN CA 40 MG TABLET (FP) PO SCH (21:21)
[2017-01-31] MEDS: TAMSULOSIN HCL 0.4 MG CAP.ER.24H (FP) PO SCH (21:22)
[2017-01-31] MEDS: ASPIRIN COATED 81 MG TABLET.EC PO SCH (21:22)
[2017-01-31] MEDS ORDERED: KETOROLAC TROMETHAMINE 30 MG/1 ML VIAL IVPUSH ONE (22:30)
--- NOTE | 2017-01-31 23:21 | PN ---
Progress Note, Physician History of Present Illness: Pt is anxious w/ multiple complaints: generalized abdominal pain and pain tingling in his fingers and sob - Current Medication List Current Medications: Active Medications Amlodipine Besylate (Norvasc -) 5 mg PO DAILY [facility] Last Admin: 01/31/17 09:02 Dose: 5 mg Aspirin (Ecotrin -) 81 mg PO HS [facility] Last Admin: 01/31/17 21:22 Dose: 81 mg Atorvastatin Calcium (Lipitor -) 40 mg PO HS [facility] Last Admin: 01/31/17 21:21 Dose: 40 mg Escitalopram Oxalate (Lexapro -) 10 mg PO DAILY [facility] Last Admin: 01/31/17 09:01 Dose: 10 mg Furosemide (Lasix Injection -) 40 mg IVPB DAILY [facility] Last Admin: 01/31/17 09:02 Dose: 40 mg Heparin Sodium (Porcine) (Heparin -) 5,000 unit SQ BID [facility] Last Admin: 01/31/17 21:20 Dose: 5,000 unit Isosorbide Mononitrate (Imdur -) 30 mg PO BID [facility] Last Admin: 01/31/17 21:23 Dose: 30 mg Metoclopramide HCl (Reglan -) 5 mg PO BIDAC [facility] Last Admin: 01/31/17 16:29 Dose: 5 mg Metoprolol Succinate (Toprol Xl -) 50 mg PO DAILY [facility] Last Admin: 01/31/17 10:40 Dose: Not Given Sitagliptin Phosphate (Januvia -) 100 mg PO DAILY@0700 [facility] Last Admin: 01/31/17 06:05 Dose: 100 mg Tamsulosin HCl (Flomax -) 0.4 mg PO HS [facility] Last Admin: 01/31/17 21:22 Dose: 0.4 mg - Objective Vital Signs: Vital Signs Temperature 97.8 F 01/31/17 18:40 Pulse Rate 78 01/31/17 18:40 Respiratory Rate 20 01/31/17 21:00 Blood Pressure 112/69 01/31/17 18:40 O2 Sat by Pulse Oximetry (%) 100 01/31/17 21:00 Constitutional: Yes: Well Nourished, Obese Neck: Yes: Supple Cardiovascular: Yes: WNL, Regular Rate and Rhythm Respiratory: Yes: WNL, Regular, CTA Bilaterally Gastrointestinal: Yes: WNL, Normal Bowel Sounds, Soft Labs: CBC, BMP 01/31/17 05:35 01/31/17 05:35 INR, PTT INR 1.20 (0.82-1.09) H 01/29/17 13:25 Problem List - Problems (1) Abdominal discomfort Code(s): R10.9 - UNSPECIFIED ABDOMINAL PAIN (2) BPH (benign prostatic hyperplasia) Code(s): N40.0 - BENIGN PROSTATIC HYPERPLASIA WITHOUT LOWER URINRY TRACT SYMP (3) CHF (congestive heart failure) Code(s): I50.9 - HEART FAILURE, UNSPECIFIED (4) Depression Code(s): F32.9 - MAJOR DEPRESSIVE DISORDER, SINGLE EPISODE, UNSPECIFIED (5) Diabetes Code(s): E11.9 - TYPE 2 DIABETES MELLITUS WITHOUT COMPLICATIONS (6) HLD (hyperlipidemia) Code(s): E78.5 - HYPERLIPIDEMIA, UNSPECIFIED (7) Hypertension Code(s): I10 - ESSENTIAL (PRIMARY) HYPERTENSION (8) Morbid obesity Code(s): E66.01 - MORBID (SEVERE) OBESITY DUE TO EXCESS CALORIES (9) PSVT (paroxysmal supraventricular tachycardia) Code(s): I47.1 - SUPRAVENTRICULAR TACHYCARDIA (10) Dyspnea Code(s): R06.00 - DYSPNEA, UNSPECIFIED
[2017-02-01] MEDS: sitaGLIPtin PHOSPHATE 100 MG TABLET (FP) PO SCH (06:04)
[2017-02-01] MEDS: METOCLOPRAMIDE HCL 10 MG TABLET (FP) PO SCH ×2 (06:04→17:28)
[2017-02-01] MEDS: SACUBITRIL/VALSARTAN 24 MG-26 MG TABLET PO SCH ×2 (09:35→21:20)
[2017-02-01] MEDS: HEPARIN NA (PORCINE) 5,000 UNITS/ML 1ML VIAL SQ SCH ×2 (09:35→21:20)
[2017-02-01] MEDS: ISOSORBIDE MONONITRATE 30 MG TAB.SR.24H (FP) PO SCH ×2 (09:35→21:20)
[2017-02-01] MEDS: amLODIPine BESYLATE 5 MG TABLET (FP) PO SCH (09:35)
[2017-02-01] MEDS: METOPROLOL SUCCINATE 50 MG TAB.SR.24H (FP) PO SCH (09:35)
[2017-02-01] MEDS: ESCITALOPRAM OXALATE 10 MG TABLET (FP) PO SCH (09:35)
[2017-02-01] MEDS: FUROSEMIDE 40 MG/4 ML INJECTABLE VIAL IVPB SCH (09:36)
--- NOTE | 2017-02-01 10:10 | PN ---
Progress Note, Physician Chief Complaint: Pt A&OX3; c/o abdominal discomfort (x one month), with no BM x 2 days; no palpitations, chest pain, or dyspnea. History of Present Illness: The patient is a 76 year old black male with a past medical hx of diabetes, pulmonary HTN, hyperlipidemia, obesity, CHF, coronary artery disease s/p stent placement (x 2; the latest about 4 yrs ago at [facility], per pt's ), who presents to the ED via EMS from Dr. Sigala office for evaluation of tachycardia. The patient notes he had a routine check up today with his Technology Training Associate, Dr. Lyle, who noticed he was tachycardic. He states he was then sent to the ED for further work up and evaluation. The patient reports he has been feel short of breath for the past few days but denies any chest pain or palpitations. The patient denies any nausea, vomiting, diarrhea, fever, chills Technology Training Associate: Dr. Lyle - Current Medication List Current Medications: Active Medications Amlodipine Besylate (Norvasc -) 5 mg PO DAILY [facility] Last Admin: 02/01/17 09:35 Dose: 5 mg Aspirin (Ecotrin -) 81 mg PO HS [facility] Last Admin: 01/31/17 21:22 Dose: 81 mg Atorvastatin Calcium (Lipitor -) 40 mg PO HS [facility] Last Admin: 01/31/17 21:21 Dose: 40 mg Escitalopram Oxalate (Lexapro -) 10 mg PO DAILY [facility] Last Admin: 02/01/17 09:35 Dose: 10 mg Furosemide (Lasix Injection -) 40 mg IVPB DAILY [facility] Last Admin: 02/01/17 09:36 Dose: 40 mg Heparin Sodium (Porcine) (Heparin -) 5,000 unit SQ BID [facility] Last Admin: 02/01/17 09:35 Dose: 5,000 unit Isosorbide Mononitrate (Imdur -) 30 mg PO BID [facility] Last Admin: 02/01/17 09:35 Dose: 30 mg Metoclopramide HCl (Reglan -) 5 mg PO BIDAC [facility] Last Admin: 02/01/17 06:04 Dose: 5 mg Metoprolol Succinate (Toprol Xl -) 50 mg PO DAILY [facility] Last Admin: 02/01/17 09:35 Dose: 50 mg Sitagliptin Phosphate (Januvia -) 100 mg PO DAILY@0700 [facility] Last Admin: 02/01/17 06:04 Dose: 100 mg Tamsulosin HCl (Flomax -) 0.4 mg PO HS [facility] Last Admin: 01/31/17 21:22 Dose: 0.4 mg - Objective Vital Signs: Vital Signs Temperature 98 F 02/01/17 06:00 Pulse Rate 75 02/01/17 06:00 Respiratory Rate 16 02/01/17 06:00 Blood Pressure 123/68 02/01/17 06:00 O2 Sat by Pulse Oximetry (%) 100 01/31/17 21:00 Constitutional: Yes: Mild Distress Eyes: Yes: WNL HENT: Yes: WNL Neck: Yes: WNL Cardiovascular: Yes: Regular Rate and Rhythm Respiratory: Yes: Regular Gastrointestinal: Yes: Soft, Abdomen, Obese ...Rectal Exam: Yes: Deferred Genitourinary: No: Anuria Breast(s): Yes: Gynecomastia Musculoskeletal: Yes: WNL Extremities: Yes: Cool Edema: Yes Edema: LLE: Trace, RLE: Trace Peripheral Pulses WNL: Yes Integumentary: Yes: WNL Neurological: Yes: WNL Psychiatric: Yes: WNL Labs: CBC, BMP 01/31/17 05:35 01/31/17 05:35 INR, PTT INR 1.20 (0.82-1.09) H 01/29/17 13:25 - ....Imaging Other: Image Reviewed (telemetry: NSR; frequent PVCs, couplets; no PSVT since yesterday) Problem List - Problems (1) Diabetes Code(s): E11.9 - TYPE 2 DIABETES MELLITUS WITHOUT COMPLICATIONS (2) Hypertension Code(s): I10 - ESSENTIAL (PRIMARY) HYPERTENSION (3) Morbid obesity Code(s): E66.01 - MORBID (SEVERE) OBESITY DUE TO EXCESS CALORIES (4) Pulmonary HTN Code(s): I27.2 - OTHER SECONDARY PULMONARY HYPERTENSION (5) PSVT (paroxysmal supraventricular tachycardia) Assessment/Plan: increased metoprolol ER to 50 mg daily; frequent PVCs and couplets; no significant PSVT since dose increase. K and Mg nl yesterday. Code(s): I47.1 - SUPRAVENTRICULAR TACHYCARDIA (6) Abdominal discomfort Assessment/Plan: f/u with GI; for imaging study. Code(s): R10.9 - UNSPECIFIED ABDOMINAL PAIN
--- NOTE | 2017-02-01 11:14 | PN ---
Progress Note, Physician History of Present Illness: PULMONARY ALERT,STILL DYSPNEIC WITH MIN EXERTION,-CP - Current Medication List Current Medications: Active Medications Amlodipine Besylate (Norvasc -) 5 mg PO DAILY [facility] Last Admin: 02/01/17 09:35 Dose: 5 mg Aspirin (Ecotrin -) 81 mg PO HS [facility] Last Admin: 01/31/17 21:22 Dose: 81 mg Atorvastatin Calcium (Lipitor -) 40 mg PO HS [facility] Last Admin: 01/31/17 21:21 Dose: 40 mg Escitalopram Oxalate (Lexapro -) 10 mg PO DAILY [facility] Last Admin: 02/01/17 09:35 Dose: 10 mg Furosemide (Lasix Injection -) 40 mg IVPB DAILY [facility] Last Admin: 02/01/17 09:36 Dose: 40 mg Heparin Sodium (Porcine) (Heparin -) 5,000 unit SQ BID [facility] Last Admin: 02/01/17 09:35 Dose: 5,000 unit Isosorbide Mononitrate (Imdur -) 30 mg PO BID [facility] Last Admin: 02/01/17 09:35 Dose: 30 mg Metoclopramide HCl (Reglan -) 5 mg PO BIDAC [facility] Last Admin: 02/01/17 06:04 Dose: 5 mg Metoprolol Succinate (Toprol Xl -) 50 mg PO DAILY [facility] Last Admin: 02/01/17 09:35 Dose: 50 mg Sitagliptin Phosphate (Januvia -) 100 mg PO DAILY@0700 [facility] Last Admin: 02/01/17 06:04 Dose: 100 mg Tamsulosin HCl (Flomax -) 0.4 mg PO HS [facility] Last Admin: 01/31/17 21:22 Dose: 0.4 mg - Objective Vital Signs: Vital Signs Temperature 98 F 02/01/17 06:00 Pulse Rate 75 02/01/17 06:00 Respiratory Rate 16 02/01/17 06:00 Blood Pressure 123/68 02/01/17 06:00 O2 Sat by Pulse Oximetry (%) 100 01/31/17 21:00 Constitutional: Yes: Well Nourished, Calm Eyes: Yes: WNL HENT: Yes: WNL Neck: Yes: WNL Cardiovascular: Yes: Regular Rate and Rhythm, S1, S2 Respiratory: Yes: Diminished Gastrointestinal: Yes: Normal Bowel Sounds, Soft, Abdomen, Obese Extremities: Yes: WNL Edema: Yes Labs: CBC, BMP 03/25/17 05:35 01/31/17 05:35 INR, PTT INR 1.20 (0.82-1.09) H 01/29/17 13:25 Problem List - Problems (1) CHF (congestive heart failure) Code(s): I50.9 - HEART FAILURE, UNSPECIFIED (2) Pulmonary HTN Code(s): I27.2 - OTHER SECONDARY PULMONARY HYPERTENSION (3) Diabetes Code(s): E11.9 - TYPE 2 DIABETES MELLITUS WITHOUT COMPLICATIONS (4) Hypertension Code(s): I10 - ESSENTIAL (PRIMARY) HYPERTENSION (5) Morbid obesity Code(s): E66.01 - MORBID (SEVERE) OBESITY DUE TO EXCESS CALORIES Assessment/Plan IMP DYSPNEA DECOMPENSATED CHF PULMONARY HTN DM HTN MORBID OBESITY LIKELY OSAS PLAN LASIX O2 INHALED BRONCHODILATORS PRN DAILY WTS CHEST CT SLEEP STUDIES OUTPATIENT DR CARPENTER Problem List - Problems (1) CHF (congestive heart failure) Code(s): I50.9 - HEART FAILURE, UNSPECIFIED (2) Pulmonary HTN Code(s): I27.2 - OTHER SECONDARY PULMONARY HYPERTENSION (3) Diabetes Code(s): E11.9 - TYPE 2 DIABETES MELLITUS WITHOUT COMPLICATIONS (4) Hypertension Code(s): I10 - ESSENTIAL (PRIMARY) HYPERTENSION (5) Morbid obesity Code(s): E66.01 - MORBID (SEVERE) OBESITY DUE TO EXCESS CALORIES
[2017-02-01] MEDS ORDERED: LORAZEPAM CARPU-JECT 2 MG/ML DISP.SYRIN IVPUSH SCH (16:30)
[2017-02-01] MEDS: ATORVASTATIN CA 40 MG TABLET (FP) PO SCH (21:20)
[2017-02-01] MEDS: ASPIRIN COATED 81 MG TABLET.EC PO SCH (21:20)
[2017-02-01] MEDS: TAMSULOSIN HCL 0.4 MG CAP.ER.24H (FP) PO SCH (21:20)
--- NOTE | 2017-02-01 22:17 | PN ---
Progress Note, Physician History of Present Illness: Pt is anxious w/ multiple complaints: generalized abdominal pain and pain tingling in his fingers and sob - Current Medication List Current Medications: Active Medications Amlodipine Besylate (Norvasc -) 5 mg PO DAILY [facility] Last Admin: 02/01/17 09:35 Dose: 5 mg Aspirin (Ecotrin -) 81 mg PO HS [facility] Last Admin: 02/01/17 21:20 Dose: 81 mg Atorvastatin Calcium (Lipitor -) 40 mg PO HS [facility] Last Admin: 02/01/17 21:20 Dose: 40 mg Escitalopram Oxalate (Lexapro -) 10 mg PO DAILY [facility] Last Admin: 02/01/17 09:35 Dose: 10 mg Furosemide (Lasix Injection -) 40 mg IVPB DAILY [facility] Last Admin: 02/01/17 09:36 Dose: 40 mg Heparin Sodium (Porcine) (Heparin -) 5,000 unit SQ BID [facility] Last Admin: 02/01/17 21:20 Dose: 5,000 unit Isosorbide Mononitrate (Imdur -) 30 mg PO BID [facility] Last Admin: 02/01/17 21:20 Dose: 30 mg Metoclopramide HCl (Reglan -) 5 mg PO BIDAC [facility] Last Admin: 02/01/17 17:28 Dose: 5 mg Metoprolol Succinate (Toprol Xl -) 50 mg PO DAILY [facility] Last Admin: 02/01/17 09:35 Dose: 50 mg Sitagliptin Phosphate (Januvia -) 100 mg PO DAILY@0700 [facility] Last Admin: 02/01/17 06:04 Dose: 100 mg Tamsulosin HCl (Flomax -) 0.4 mg PO HS [facility] Last Admin: 02/01/17 21:20 Dose: 0.4 mg - Objective Vital Signs: Vital Signs Temperature 98.2 F 02/01/17 20:52 Pulse Rate 82 02/01/17 20:52 Respiratory Rate 18 02/01/17 21:00 Blood Pressure 113/68 02/01/17 20:52 O2 Sat by Pulse Oximetry (%) 100 02/01/17 21:00 Constitutional: Yes: Well Nourished, Obese Neck: Yes: Supple Cardiovascular: Yes: WNL, Regular Rate and Rhythm Respiratory: Yes: WNL, Regular, CTA Bilaterally Gastrointestinal: Yes: WNL, Normal Bowel Sounds, Soft, Abdomen, Obese Musculoskeletal: Yes: WNL Extremities: Yes: WNL Edema: No Labs: CBC, BMP 01/31/17 05:35 01/31/17 05:35 INR, PTT INR 1.20 (0.82-1.09) H 01/29/17 13:25 Problem List - Problems (1) PSVT (paroxysmal supraventricular tachycardia) Assessment/Plan: Metoprolol dose increased Code(s): I47.1 - SUPRAVENTRICULAR TACHYCARDIA (2) Dyspnea Assessment/Plan: Multifactorial Sleep study as outpt Encpourage OOB PT eval Ct scan chest pending Code(s): R06.00 - DYSPNEA, UNSPECIFIED (3) Abdominal discomfort Assessment/Plan: CT scan abd/pelvis pending Will get GI consult Start protonix Pt also has some constipation Will start miralx also Encourage OOB Code(s): R10.9 - UNSPECIFIED ABDOMINAL PAIN (4) CHF (congestive heart failure) Assessment/Plan: Cont IVlasix Cont entresta Check echo As per cardio Code(s): I50.9 - HEART FAILURE, UNSPECIFIED (5) Hypertension Assessment/Plan: BP stable Cont asa/norvasc/imdur Code(s): I10 - ESSENTIAL (PRIMARY) HYPERTENSION (6) HLD (hyperlipidemia) Code(s): E78.5 - HYPERLIPIDEMIA, UNSPECIFIED (7) Diabetes Assessment/Plan: Cont tradjenta Code(s): E11.9 - TYPE 2 DIABETES MELLITUS WITHOUT COMPLICATIONS (8) BPH (benign prostatic hyperplasia) Assessment/Plan: Cont flomax Code(s): N40.0 - BENIGN PROSTATIC HYPERPLASIA WITHOUT LOWER URINRY TRACT SYMP (9) Depression Assessment/Plan: Contr lexapro Code(s): F32.9 - MAJOR DEPRESSIVE DISORDER, SINGLE EPISODE, UNSPECIFIED (10) Morbid obesity Code(s): E66.01 - MORBID (SEVERE) OBESITY DUE TO EXCESS CALORIES
[2017-02-02] MEDS: METOCLOPRAMIDE HCL 10 MG TABLET (FP) PO SCH ×2 (06:23→16:40)
[2017-02-02] MEDS: sitaGLIPtin PHOSPHATE 100 MG TABLET (FP) PO SCH (06:23)
[2017-02-02] MEDS ORDERED: PATIENT'S OWN MEDICATION (NON-FORMULARY) (Alendronate Na [Fosamax (Weekly)] 70 MG) PO SCH (06:30)
[2017-02-02 07:42] LABS: BASOPHIL 0.4 % (0-2.0); EOSINOPHIL 3.7 % (0-4.5); MCH 34.1 pg (25.7-33.7); MCHC 32.5 g/dl (32.0-35.9); MEAN CELL VOLUME 104.8 fl (80-96); MEAN PLT VOLUME 8.4 fl (7.5-11.1); NEUTROPHILS 70.8 % (42.8-82.8); PLATELET COUNT 167 K/MM3 (134-434); RDW 14.6 % (11.9-15.9); WHITE BLOOD COUNT 5.8 K/mm3 (4.0-10.0)
[2017-02-02 07:53] LABS: ALBUMIN 3.6 g/dl (3.4-5.0); AMYLASE 88 U/L (25-115); ANION GAP 6 (8-16); BILIRUBIN,TOTAL 0.4 mg/dL (0.2-1.0); CO2 38 mmol/L (21-32); GLUCOSE,RANDOM 142 mg/dL (74-106); SGOT/AST 21 U/L (15-37); SGPT/ALT 38 U/L (12-78)
[2017-02-02 07:55] LABS: ALK PHOS 138 U/L (45-117); CREATININE 1.1 mg/dL (0.7-1.3)
[2017-02-02] MEDS ORDERED: PT OWN MED DRAWER 7, Y5N ONE (09:29)
[2017-02-02] MEDS: ESCITALOPRAM OXALATE 10 MG TABLET (FP) PO SCH (09:37)
[2017-02-02] MEDS: ISOSORBIDE MONONITRATE 30 MG TAB.SR.24H (FP) PO SCH ×2 (09:37→22:34)
[2017-02-02] MEDS: PANTOPRAZOLE 40 MG TABLET (FP) PO SCH (09:37)
[2017-02-02] MEDS: SACUBITRIL/VALSARTAN 24 MG-26 MG TABLET PO SCH ×2 (09:37→22:35)
[2017-02-02] MEDS: METOPROLOL SUCCINATE 50 MG TAB.SR.24H (FP) PO SCH (09:37)
[2017-02-02] MEDS: amLODIPine BESYLATE 5 MG TABLET (FP) PO SCH (09:37)
[2017-02-02] MEDS: FUROSEMIDE 40 MG/4 ML INJECTABLE VIAL IVPB SCH (09:40)
[2017-02-02] MEDS: HEPARIN NA (PORCINE) 5,000 UNITS/ML 1ML VIAL SQ SCH ×2 (09:40→22:35)
[2017-02-02] MEDS ORDERED: POLYETHYLENE GLYCOL 3350 119 GM BTL PO SCH (10:00)
--- NOTE | 2017-02-02 10:59 | PN ---
Progress Note, Physician History of Present Illness: PULMONARY ALERT,+PATEL (SHORT DISTANCE),+ GENERALIZED ABD DISCOMFORT - Current Medication List Current Medications: Active Medications Amlodipine Besylate (Norvasc -) 5 mg PO DAILY [facility] Last Admin: 02/02/17 09:37 Dose: 5 mg Aspirin (Ecotrin -) 81 mg PO HS [facility] Last Admin: 02/01/17 21:20 Dose: 81 mg Atorvastatin Calcium (Lipitor -) 40 mg PO HS [facility] Last Admin: 02/01/17 21:20 Dose: 40 mg Escitalopram Oxalate (Lexapro -) 10 mg PO DAILY [facility] Last Admin: 02/02/17 09:37 Dose: 10 mg Furosemide (Lasix Injection -) 40 mg IVPB DAILY [facility] Last Admin: 02/02/17 09:40 Dose: 40 mg Heparin Sodium (Porcine) (Heparin -) 5,000 unit SQ BID [facility] Last Admin: 02/02/17 09:40 Dose: 5,000 unit Isosorbide Mononitrate (Imdur -) 30 mg PO BID [facility] Last Admin: 02/02/17 09:37 Dose: 30 mg Metoclopramide HCl (Reglan -) 5 mg PO BIDAC [facility] Last Admin: 02/02/17 06:23 Dose: 5 mg Metoprolol Succinate (Toprol Xl -) 50 mg PO DAILY [facility] Last Admin: 02/02/17 09:37 Dose: 50 mg Pantoprazole Sodium (Protonix -) 40 mg PO DAILY [facility] Last Admin: 02/02/17 09:37 Dose: 40 mg Polyethylene Glycol (Miralax (For Daily Use) -) 17 gm PO DAILY [facility] Last Admin: 02/02/17 09:38 Dose: 17 grams Sitagliptin Phosphate (Januvia -) 100 mg PO DAILY@0700 [facility] Last Admin: 02/02/17 06:23 Dose: 100 mg Tamsulosin HCl (Flomax -) 0.4 mg PO HS [facility] Last Admin: 02/01/17 21:20 Dose: 0.4 mg - Objective Vital Signs: Vital Signs Temperature 97.9 F 02/02/17 09:33 Pulse Rate 73 02/02/17 09:33 Respiratory Rate 18 02/02/17 09:33 Blood Pressure 105/70 02/02/17 09:33 O2 Sat by Pulse Oximetry (%) 98 02/02/17 09:00 Constitutional: Yes: Well Nourished, Calm Eyes: Yes: WNL HENT: Yes: WNL Neck: Yes: WNL Cardiovascular: Yes: Regular Rate and Rhythm, S1, S2 Respiratory: Yes: Diminished Gastrointestinal: Yes: Normal Bowel Sounds, Soft Extremities: Yes: WNL Edema: Yes Labs: CBC, BMP 02/02/17 05:32 02/02/17 05:32 INR, PTT INR 1.20 (0.82-1.09) H 01/29/17 13:25 Problem List - Problems (1) CHF (congestive heart failure) Code(s): I50.9 - HEART FAILURE, UNSPECIFIED (2) Pulmonary HTN Code(s): I27.2 - OTHER SECONDARY PULMONARY HYPERTENSION (3) Diabetes Code(s): E11.9 - TYPE 2 DIABETES MELLITUS WITHOUT COMPLICATIONS (4) Hypertension Code(s): I10 - ESSENTIAL (PRIMARY) HYPERTENSION (5) Morbid obesity Code(s): E66.01 - MORBID (SEVERE) OBESITY DUE TO EXCESS CALORIES Assessment/Plan IMP DYSPNEA DECOMPENSATED CHF PULMONARY HTN DM HTN MORBID OBESITY LIKELY OSAS PLAN LASIX O2 INHALED BRONCHODILATORS PRN DAILY WTS SLEEP STUDIES OUTPATIENT PFTS OUTPATIENT DR CARPENTER Problem List - Problems (1) CHF (congestive heart failure) Code(s): I50.9 - HEART FAILURE, UNSPECIFIED (2) Pulmonary HTN Code(s): I27.2 - OTHER SECONDARY PULMONARY HYPERTENSION (3) Diabetes Code(s): E11.9 - TYPE 2 DIABETES MELLITUS WITHOUT COMPLICATIONS (4) Hypertension Code(s): I10 - ESSENTIAL (PRIMARY) HYPERTENSION (5) Morbid obesity Code(s): E66.01 - MORBID (SEVERE) OBESITY DUE TO EXCESS CALORIES
--- NOTE | 2017-02-02 11:08 | PN ---
Progress Note, Physician History of Present Illness: seen and examined today in nad. no overnight events. no new complaints. - Current Medication List Current Medications: Active Medications Amlodipine Besylate (Norvasc -) 5 mg PO DAILY [facility] Last Admin: 02/02/17 09:37 Dose: 5 mg Aspirin (Ecotrin -) 81 mg PO HS [facility] Last Admin: 02/01/17 21:20 Dose: 81 mg Atorvastatin Calcium (Lipitor -) 40 mg PO HS [facility] Last Admin: 02/01/17 21:20 Dose: 40 mg Escitalopram Oxalate (Lexapro -) 10 mg PO DAILY [facility] Last Admin: 02/02/17 09:37 Dose: 10 mg Furosemide (Lasix Injection -) 40 mg IVPB DAILY [facility] Last Admin: 02/02/17 09:40 Dose: 40 mg Heparin Sodium (Porcine) (Heparin -) 5,000 unit SQ BID [facility] Last Admin: 02/02/17 09:40 Dose: 5,000 unit Isosorbide Mononitrate (Imdur -) 30 mg PO BID [facility] Last Admin: 02/02/17 09:37 Dose: 30 mg Metoclopramide HCl (Reglan -) 5 mg PO BIDAC [facility] Last Admin: 02/02/17 06:23 Dose: 5 mg Metoprolol Succinate (Toprol Xl -) 50 mg PO DAILY [facility] Last Admin: 02/02/17 09:37 Dose: 50 mg Pantoprazole Sodium (Protonix -) 40 mg PO DAILY [facility] Last Admin: 02/02/17 09:37 Dose: 40 mg Polyethylene Glycol (Miralax (For Daily Use) -) 17 gm PO DAILY [facility] Last Admin: 02/02/17 09:38 Dose: 17 grams Sitagliptin Phosphate (Januvia -) 100 mg PO DAILY@0700 [facility] Last Admin: 02/02/17 06:23 Dose: 100 mg Tamsulosin HCl (Flomax -) 0.4 mg PO HS [facility] Last Admin: 02/01/17 21:20 Dose: 0.4 mg - Objective Vital Signs: Vital Signs Temperature 97.9 F 02/02/17 09:33 Pulse Rate 73 02/02/17 09:33 Respiratory Rate 18 02/02/17 09:33 Blood Pressure 105/70 02/02/17 09:33 O2 Sat by Pulse Oximetry (%) 98 02/02/17 09:00 Constitutional: Yes: No Distress, Calm, Obese Eyes: Yes: Conjunctiva Clear, EOM Intact, PERRL HENT: Yes: Atraumatic, Normocephalic Neck: Yes: Supple, Trachea Midline Cardiovascular: Yes: Regular Rate and Rhythm, S1, S2. No: Bradycardia, Tachycardia, Pulse Irregular, Bruit, JVD, Gallop, Murmur, Rub, S3, S4, Varicosities Respiratory: Yes: Regular, Diminished. No: Rales, Rhonchi, Wheezes Gastrointestinal: Yes: Normal Bowel Sounds, Soft. No: Distention, Tenderness Genitourinary: Yes: Other (dysuria) Musculoskeletal: Yes: WNL Extremities: Yes: WNL Edema: Yes Edema: LLE: Trace, RLE: Trace Peripheral Pulses WNL: Yes Peripheral Pulses: Left Doralis Pedis: 2+, Right Dorsalis Pedis: 2+ Integumentary: Yes: WNL Neurological: Yes: Alert, Oriented, Cran Nerves II-XII Intact Psychiatric: Yes: Alert, Oriented Labs: CBC, BMP 02/02/17 05:32 02/02/17 05:32 INR, PTT INR 1.20 (0.82-1.09) H 01/29/17 13:25 - ....Imaging Chest X-ray: Report Reviewed, Image Reviewed EKG: Report Reviewed, Image Reviewed Other: Report Reviewed, Image Reviewed (tele-nsr, frequent pvcs, couplets, no further psvt overnight) Assessment/Plan 75 year old man with a history of HTN, HLD, DM II, CAD with prior stent, chronic diastolic CHF, pulm HTN, admitted with PSVT, sob, chf. PSVT-broke to NSR after adenosine in office -adequately suppressed currently with Toprol XL 50mg daily -cont tele monitoring as long as remains inpatient -no additional work up needed at this point for this condition SOB-Acute on chronic combined systolic/diastolic chf, pulm htn -cont IV lasix -monitor strict I/Os and daily weights -monitor bun/creat, electrolytes closely and replete as needed -cont supp O2 -follow up pulm htn [facility] -resume home adcirca when possible CAD-stable -cont home medical regimen Abdominal distention-reported foul smelling urine -UA wnl -f/up abd CT
--- NOTE | 2017-02-02 15:48 | CON.GI ---
Consult Consult Specialty:: GI Referred by:: Dr Mendieta Reason for Consultation:: Abdominal bloating - History of Present Illness Chief Complaint: SOB History of Present Illness: 75 M with metastatic prostate ca s/p radioactive seed placement, HTN, HLD, CAD, DM, s/p PCI, admitted with SVT diagnosed at PCP. Given adenosine x 2 but recurred and admitted. Now called for abdominal distention. Currently no CP or SOB. - History Source History Provided By: Patient, Medical Record Limitations to Obtaining History: No Limitations - Past Medical History Cardio/Vascular: Yes: CAD, HTN, Hyperlipdemia, Pulmonary Hypertension Endocrine: Yes: Diabetes Mellitus - Alcohol/Substance Use Hx Alcohol Use: No - Smoking History Smoking history: Never smoked Have you smoked in the past 12 months: No Aproximately how many cigarettes per day: 0 - Social History Usual Living Arrangement: With Spouse ADL: Independent History of Recent Travel: No Home Medications - Allergies Allergies/Adverse Reactions: Allergies Allergy/AdvReac Type Severity Reaction Status Date / Time No Known Allergies Allergy Unverified 01/29/17 12:58 - Home Medications Home Medications: Ambulatory Orders Alendronate Na [Fosamax] 70 mg PO Q7D 01/29/17 Amlodipine Besylate [Norvasc -] 5 mg PO DAILY 01/29/17 Aspirin [Ecotrin] 81 mg PO HS 01/29/17 Atorvastatin Calcium 40 mg PO DAILY 01/29/17 Escitalopram Oxalate [Lexapro -] 10 mg PO DAILY 01/29/17 Furosemide [Lasix] 80 mg PO DAILY 01/29/17 Isosorbide Mononitrate [Imdur -] 30 mg PO BID 01/29/17 Linagliptin [Tradjenta] 5 mg PO DAILY 01/29/17 Metoclopramide HCl [Reglan] 5 mg PO BID 01/29/17 Sacubitril/Valsartan [Entresto 24 mg-26 mg Tablet] 1 tab PO BID 01/29/17 Tamsulosin HCl [Flomax] 0.4 mg PO HS 01/29/17 Physical Exam-GI Vital Signs: Vital Signs Temperature 98.3 F 02/02/17 15:27 Pulse Rate 78 02/02/17 15:27 Respiratory Rate 20 02/02/17 15:27 Blood Pressure 108/53 02/02/17 15:27 O2 Sat by Pulse Oximetry (%) 98 02/02/17 09:00 Constitutional: Yes: No Distress, Obese HENT: Yes: Normocephalic Neck: Yes: Supple Cardiovascular: Yes: Regular Rate and Rhythm Respiratory: Yes: CTA Bilaterally Gastrointestinal Inspection: Yes: Distention ...Auscultate: Yes: Normoactive Bowel Sounds ...Palpate: No: Tenderness ...Percussion: Yes: Tympanitic Labs: CBC, BMP 02/02/17 05:32 02/02/17 05:32 INR, PTT INR 1.20 (0.82-1.09) H 01/29/17 13:25 Hepatic Panel Total Bilirubin 0.4 mg/dL (0.2-1.0) 02/02/17 05:32 AST 21 U/L (15-37) D 02/02/17 05:32 ALT 38 U/L (12-78) D 02/02/17 05:32 Alkaline Phosphatase 138 U/L (45-117) H 02/02/17 05:32 Albumin 3.6 g/dl (3.4-5.0) 02/02/17 05:32 Imaging - Results Cat Scan: Report Reviewed (paraumbilical hernia noted with loop of sigmoid but no obstruction noted.) Assessment/Plan 78 M with above history with prostate ca with mets to bone on CT done this admission, now with distention. Likely related to fecal impaction. Will order laxative regimen. Avoid narcotic pain meds
[2017-02-02] MEDS ORDERED: BISACODYL 5 MG TABLET.DR (FP) PO PRN (16:02)
[2017-02-02] MEDS: ATORVASTATIN CA 40 MG TABLET (FP) PO SCH (22:34)
[2017-02-02] MEDS: LACTULOSE 20 GM/30 ML UDC (FOR ORAL USE ONLY) PO SCH (22:35)
[2017-02-02] MEDS: ASPIRIN COATED 81 MG TABLET.EC PO SCH (22:35)
[2017-02-02] MEDS: TAMSULOSIN HCL 0.4 MG CAP.ER.24H (FP) PO SCH (22:35)
[2017-02-02] MEDS: POLYETHYLENE GLYCOL 3350 119 GM BTL PO SCH (22:36)
--- NOTE | 2017-02-02 23:31 | PN ---
Progress Note, Physician - Current Medication List Current Medications: Active Medications Amlodipine Besylate (Norvasc -) 5 mg PO DAILY [facility] Last Admin: 02/02/17 09:37 Dose: 5 mg Aspirin (Ecotrin -) 81 mg PO HS [facility] Last Admin: 02/02/17 22:35 Dose: 81 mg Atorvastatin Calcium (Lipitor -) 40 mg PO HS [facility] Last Admin: 02/02/17 22:34 Dose: 40 mg Bisacodyl (Dulcolax -) 5 mg PO DAILY PRN PRN Reason: CONSTIPATION Escitalopram Oxalate (Lexapro -) 10 mg PO DAILY [facility] Last Admin: 02/02/17 09:37 Dose: 10 mg Furosemide (Lasix Injection -) 40 mg IVPB DAILY [facility] Last Admin: 02/02/17 09:40 Dose: 40 mg Heparin Sodium (Porcine) (Heparin -) 5,000 unit SQ BID [facility] Last Admin: 02/02/17 22:35 Dose: 5,000 unit Isosorbide Mononitrate (Imdur -) 30 mg PO BID [facility] Last Admin: 02/02/17 22:34 Dose: 30 mg Lactulose (Cephulac (Oral Use)) 20 gm PO BID [facility] Last Admin: 02/02/17 22:35 Dose: Not Given Metoclopramide HCl (Reglan -) 5 mg PO BIDAC [facility] Last Admin: 02/02/17 16:40 Dose: 5 mg Metoprolol Succinate (Toprol Xl -) 50 mg PO DAILY [facility] Last Admin: 02/02/17 09:37 Dose: 50 mg Pantoprazole Sodium (Protonix -) 40 mg PO DAILY [facility] Last Admin: 02/02/17 09:37 Dose: 40 mg Polyethylene Glycol (Miralax (For Daily Use) -) 17 gm PO BID [facility] Last Admin: 02/02/17 22:36 Dose: Not Given Sitagliptin Phosphate (Januvia -) 100 mg PO DAILY@0700 [facility] Last Admin: 02/02/17 06:23 Dose: 100 mg Tamsulosin HCl (Flomax -) 0.4 mg PO HS [facility] Last Admin: 02/02/17 22:35 Dose: 0.4 mg - Objective Vital Signs: Vital Signs Temperature 98.8 F 02/02/17 17:00 Pulse Rate 64 02/02/17 17:00 Respiratory Rate 18 02/02/17 17:00 Blood Pressure 106/63 02/02/17 17:00 O2 Sat by Pulse Oximetry (%) 98 02/02/17 09:00 Labs: CBC, BMP 02/02/17 05:32 02/02/17 05:32 INR, PTT INR 1.20 (0.82-1.09) H 01/29/17 13:25 Problem List - Problems (1) PSVT (paroxysmal supraventricular tachycardia) Code(s): I47.1 - SUPRAVENTRICULAR TACHYCARDIA (2) Dyspnea Code(s): R06.00 - DYSPNEA, UNSPECIFIED (3) Abdominal discomfort Code(s): R10.9 - UNSPECIFIED ABDOMINAL PAIN (4) CHF (congestive heart failure) Code(s): I50.9 - HEART FAILURE, UNSPECIFIED (5) Hypertension Code(s): I10 - ESSENTIAL (PRIMARY) HYPERTENSION (6) HLD (hyperlipidemia) Code(s): E78.5 - HYPERLIPIDEMIA, UNSPECIFIED (7) Diabetes Code(s): E11.9 - TYPE 2 DIABETES MELLITUS WITHOUT COMPLICATIONS (8) BPH (benign prostatic hyperplasia) Code(s): N40.0 - BENIGN PROSTATIC HYPERPLASIA WITHOUT LOWER URINRY TRACT SYMP (9) Depression Code(s): F32.9 - MAJOR DEPRESSIVE DISORDER, SINGLE EPISODE, UNSPECIFIED (10) Morbid obesity Code(s): E66.01 - MORBID (SEVERE) OBESITY DUE TO EXCESS CALORIES
[2017-02-03] MEDS: METOCLOPRAMIDE HCL 10 MG TABLET (FP) PO SCH ×2 (06:44→17:30)
[2017-02-03] MEDS: sitaGLIPtin PHOSPHATE 100 MG TABLET (FP) PO SCH (06:45)
[2017-02-03] MEDS ORDERED: PT OWN MED DRAWER 7, Y5N ONE (08:30)
--- NOTE | 2017-02-03 09:46 | PN ---
Progress Note, Physician Chief Complaint: continues to have short bursts PSVT, self limited. Overall burden PSVT improved. - Current Medication List Current Medications: Active Medications Amlodipine Besylate (Norvasc -) 5 mg PO DAILY [facility] Last Admin: 02/02/17 09:37 Dose: 5 mg Aspirin (Ecotrin -) 81 mg PO HS [facility] Last Admin: 02/02/17 22:35 Dose: 81 mg Atorvastatin Calcium (Lipitor -) 40 mg PO HS [facility] Last Admin: 02/02/17 22:34 Dose: 40 mg Bisacodyl (Dulcolax -) 5 mg PO DAILY PRN PRN Reason: CONSTIPATION Escitalopram Oxalate (Lexapro -) 10 mg PO DAILY [facility] Last Admin: 02/02/17 09:37 Dose: 10 mg Furosemide (Lasix Injection -) 40 mg IVPB DAILY [facility] Last Admin: 02/02/17 09:40 Dose: 40 mg Heparin Sodium (Porcine) (Heparin -) 5,000 unit SQ BID [facility] Last Admin: 02/02/17 22:35 Dose: 5,000 unit Isosorbide Mononitrate (Imdur -) 30 mg PO BID [facility] Last Admin: 02/02/17 22:34 Dose: 30 mg Lactulose (Cephulac (Oral Use)) 20 gm PO BID [facility] Last Admin: 02/02/17 22:35 Dose: Not Given Metoclopramide HCl (Reglan -) 5 mg PO BIDAC [facility] Last Admin: 02/03/17 06:44 Dose: 5 mg Metoprolol Succinate (Toprol Xl -) 50 mg PO DAILY [facility] Last Admin: 02/02/17 09:37 Dose: 50 mg Pantoprazole Sodium (Protonix -) 40 mg PO DAILY [facility] Last Admin: 02/02/17 09:37 Dose: 40 mg Polyethylene Glycol (Miralax (For Daily Use) -) 17 gm PO BID [facility] Last Admin: 02/02/17 22:36 Dose: Not Given Sitagliptin Phosphate (Januvia -) 100 mg PO DAILY@0700 [facility] Last Admin: 02/03/17 06:45 Dose: 100 mg Tamsulosin HCl (Flomax -) 0.4 mg PO HS [facility] Last Admin: 02/02/17 22:35 Dose: 0.4 mg - Objective Vital Signs: Vital Signs Temperature 98.4 F 02/03/17 06:00 Pulse Rate 70 02/03/17 06:00 Respiratory Rate 20 02/03/17 06:00 Blood Pressure 124/64 02/03/17 06:00 O2 Sat by Pulse Oximetry (%) 100 02/02/17 21:00 Constitutional: Yes: No Distress, Calm Cardiovascular: Yes: Regular Rate and Rhythm Respiratory: Yes: CTA Bilaterally (decreased basilar breath sounds) Gastrointestinal: Yes: Soft, Abdomen, Obese Edema: Yes Edema: LLE: 1+, RLE: 1+ Neurological: Yes: Alert, Oriented Labs: CBC, BMP 02/02/17 05:32 02/02/17 05:32 INR, PTT INR 1.20 (0.82-1.09) H 01/29/17 13:25 - ....Imaging EKG: Image Reviewed (NSR. Short self limited bursts PSVT) Assessment/Plan Assessment/Plan 75 year old man with a history of HTN, HLD, DM II, CAD with prior stent, chronic diastolic CHF, pulm HTN, admitted with PSVT, sob, chf. PSVT-broke to NSR after adenosine in office -adequately suppressed currently with Toprol XL 50mg daily -cont tele monitoring as long as remains inpatient -no additional work up needed at this point for this condition SOB-Acute on chronic combined systolic/diastolic chf, pulm htn -cont IV lasix -cont supp O2 -[facility] -resume home adcirca when possible -Could not lay flat for V/Q scan (to r/o chronic PE) -Could not have CTA chest due to elevated creatinine -Will check LE venous duplex CAD-stable -cont home medical regimen Abdominal distention-reported foul smelling urine -no obstruction on CT, but mixed blastic/lytic lesions in pelvis suggestive metastatic disease.
[2017-02-03] MEDS: LACTULOSE 20 GM/30 ML UDC (FOR ORAL USE ONLY) PO SCH ×2 (10:01→22:25)
[2017-02-03] MEDS: HEPARIN NA (PORCINE) 5,000 UNITS/ML 1ML VIAL SQ SCH ×2 (10:02→22:26)
[2017-02-03] MEDS: SACUBITRIL/VALSARTAN 24 MG-26 MG TABLET PO SCH ×2 (10:02→22:25)
[2017-02-03] MEDS: FUROSEMIDE 40 MG/4 ML INJECTABLE VIAL IVPB SCH (10:03)
[2017-02-03] MEDS: ISOSORBIDE MONONITRATE 30 MG TAB.SR.24H (FP) PO SCH ×2 (10:03→22:25)
[2017-02-03] MEDS: ESCITALOPRAM OXALATE 10 MG TABLET (FP) PO SCH (10:03)
[2017-02-03] MEDS: POLYETHYLENE GLYCOL 3350 119 GM BTL PO SCH ×2 (10:04→22:30)
[2017-02-03] MEDS: PANTOPRAZOLE 40 MG TABLET (FP) PO SCH (10:04)
[2017-02-03] MEDS: METOPROLOL SUCCINATE 50 MG TAB.SR.24H (FP) PO SCH (10:04)
[2017-02-03] MEDS: amLODIPine BESYLATE 5 MG TABLET (FP) PO SCH (10:04)
--- NOTE | 2017-02-03 13:33 | PN ---
Progress Note (short form) - Note Progress Note: PULMONARY Still short of breath. No cough or wheezing. LE dopplers done today negative. Last Vital Signs Temp Pulse Resp BP Pulse Ox 98.4 F 70 20 124/64 100 02/03/17 06:00 02/03/17 06:00 02/03/17 06:00 02/03/17 06:00 02/02/17 21:00 Gen: NAD at rest Heart: RRR Lung: decreased breath sounds at the bases Abd: soft, nontender, obese Ext: + edema CBC, BMP 02/02/17 05:32 02/02/17 05:32 Active Medications Amlodipine Besylate (Norvasc -) 5 mg PO DAILY [facility] Last Admin: 02/03/17 10:04 Dose: 5 mg Aspirin (Ecotrin -) 81 mg PO HS [facility] Last Admin: 02/02/17 22:35 Dose: 81 mg Atorvastatin Calcium (Lipitor -) 40 mg PO HS [facility] Last Admin: 02/02/17 22:34 Dose: 40 mg Bisacodyl (Dulcolax -) 5 mg PO DAILY PRN PRN Reason: CONSTIPATION Escitalopram Oxalate (Lexapro -) 10 mg PO DAILY [facility] Last Admin: 02/03/17 10:03 Dose: 10 mg Furosemide (Lasix Injection -) 40 mg IVPB DAILY [facility] Last Admin: 02/03/17 10:03 Dose: 40 mg Heparin Sodium (Porcine) (Heparin -) 5,000 unit SQ BID [facility] Last Admin: 02/03/17 10:02 Dose: 5,000 unit Isosorbide Mononitrate (Imdur -) 30 mg PO BID [facility] Last Admin: 02/03/17 10:03 Dose: 30 mg Lactulose (Cephulac (Oral Use)) 20 gm PO BID [facility] Last Admin: 02/03/17 10:01 Dose: 20 gm Metoclopramide HCl (Reglan -) 5 mg PO BIDAC [facility] Last Admin: 02/03/17 06:44 Dose: 5 mg Metoprolol Succinate (Toprol Xl -) 50 mg PO DAILY [facility] Last Admin: 02/03/17 10:04 Dose: 50 mg Pantoprazole Sodium (Protonix -) 40 mg PO DAILY [facility] Last Admin: 02/03/17 10:04 Dose: 40 mg Polyethylene Glycol (Miralax (For Daily Use) -) 17 gm PO BID [facility] Last Admin: 02/03/17 10:04 Dose: 17 gm Sitagliptin Phosphate (Januvia -) 100 mg PO DAILY@0700 [facility] Last Admin: 02/03/17 06:45 Dose: 100 mg Tamsulosin HCl (Flomax -) 0.4 mg PO HS [facility] Last Admin: 02/02/17 22:35 Dose: 0.4 mg A/P Pulmonary HTN Mitral Regurgitation HTN DM Morbid Obesity Likely ALY - continue lasix - monitor urine output, creatinine - beta quirino - discuss with cardiology EUGENIA-I - O2 as needed - will need PSG, PFTs as outpt - DVT prophylaxis
--- NOTE | 2017-02-03 20:27 | PN ---
Progress Note, Physician - Current Medication List Current Medications: Active Medications Amlodipine Besylate (Norvasc -) 5 mg PO DAILY [facility] Last Admin: 02/03/17 10:04 Dose: 5 mg Aspirin (Ecotrin -) 81 mg PO HS [facility] Last Admin: 02/02/17 22:35 Dose: 81 mg Atorvastatin Calcium (Lipitor -) 40 mg PO HS [facility] Last Admin: 02/02/17 22:34 Dose: 40 mg Bisacodyl (Dulcolax -) 5 mg PO DAILY PRN PRN Reason: CONSTIPATION Escitalopram Oxalate (Lexapro -) 10 mg PO DAILY [facility] Last Admin: 02/03/17 10:03 Dose: 10 mg Furosemide (Lasix Injection -) 40 mg IVPB DAILY [facility] Last Admin: 02/03/17 10:03 Dose: 40 mg Heparin Sodium (Porcine) (Heparin -) 5,000 unit SQ BID [facility] Last Admin: 02/03/17 10:02 Dose: 5,000 unit Isosorbide Mononitrate (Imdur -) 30 mg PO BID [facility] Last Admin: 02/03/17 10:03 Dose: 30 mg Lactulose (Cephulac (Oral Use)) 20 gm PO BID [facility] Last Admin: 02/03/17 10:01 Dose: 20 gm Metoclopramide HCl (Reglan -) 5 mg PO BIDAC [facility] Last Admin: 02/03/17 17:30 Dose: 5 mg Metoprolol Succinate (Toprol Xl -) 50 mg PO DAILY [facility] Last Admin: 02/03/17 10:04 Dose: 50 mg Pantoprazole Sodium (Protonix -) 40 mg PO DAILY [facility] Last Admin: 02/03/17 10:04 Dose: 40 mg Polyethylene Glycol (Miralax (For Daily Use) -) 17 gm PO BID [facility] Last Admin: 02/03/17 10:04 Dose: 17 gm Sitagliptin Phosphate (Januvia -) 100 mg PO DAILY@0700 [facility] Last Admin: 02/03/17 06:45 Dose: 100 mg Tamsulosin HCl (Flomax -) 0.4 mg PO HS [facility] Last Admin: 02/02/17 22:35 Dose: 0.4 mg - Objective Vital Signs: Vital Signs Temperature 98.8 F 02/03/17 17:00 Pulse Rate 65 02/03/17 17:00 Respiratory Rate 18 02/03/17 17:00 Blood Pressure 103/45 02/03/17 17:00 O2 Sat by Pulse Oximetry (%) 98 02/03/17 10:00 Labs: CBC, BMP 02/02/17 05:32 02/02/17 05:32 INR, PTT INR 1.20 (0.82-1.09) H 01/29/17 13:25 Problem List - Problems (1) PSVT (paroxysmal supraventricular tachycardia) Code(s): I47.1 - SUPRAVENTRICULAR TACHYCARDIA (2) Dyspnea Code(s): R06.00 - DYSPNEA, UNSPECIFIED (3) Abdominal discomfort Code(s): R10.9 - UNSPECIFIED ABDOMINAL PAIN (4) CHF (congestive heart failure) Code(s): I50.9 - HEART FAILURE, UNSPECIFIED (5) Hypertension Code(s): I10 - ESSENTIAL (PRIMARY) HYPERTENSION (6) HLD (hyperlipidemia) Code(s): E78.5 - HYPERLIPIDEMIA, UNSPECIFIED (7) Diabetes Code(s): E11.9 - TYPE 2 DIABETES MELLITUS WITHOUT COMPLICATIONS (8) BPH (benign prostatic hyperplasia) Code(s): N40.0 - BENIGN PROSTATIC HYPERPLASIA WITHOUT LOWER URINRY TRACT SYMP (9) Depression Code(s): F32.9 - MAJOR DEPRESSIVE DISORDER, SINGLE EPISODE, UNSPECIFIED (10) Morbid obesity Code(s): E66.01 - MORBID (SEVERE) OBESITY DUE TO EXCESS CALORIES
[2017-02-03] MEDS: TAMSULOSIN HCL 0.4 MG CAP.ER.24H (FP) PO SCH (22:25)
[2017-02-03] MEDS: ATORVASTATIN CA 40 MG TABLET (FP) PO SCH (22:25)
[2017-02-03] MEDS: ASPIRIN COATED 81 MG TABLET.EC PO SCH (22:25)
[2017-02-04] MEDS: METOCLOPRAMIDE HCL 10 MG TABLET (FP) PO SCH ×2 (06:01→18:32)
[2017-02-04] MEDS: sitaGLIPtin PHOSPHATE 100 MG TABLET (FP) PO SCH (06:01)
--- NOTE | 2017-02-04 09:45 | PN ---
Progress Note, Physician Chief Complaint: TELE: NSR, Rare VPCs - Current Medication List Current Medications: Active Medications Amlodipine Besylate (Norvasc -) 5 mg PO DAILY [facility] Last Admin: 02/03/17 10:04 Dose: 5 mg Aspirin (Ecotrin -) 81 mg PO HS [facility] Last Admin: 02/03/17 22:25 Dose: 81 mg Atorvastatin Calcium (Lipitor -) 40 mg PO HS [facility] Last Admin: 02/03/17 22:25 Dose: 40 mg Bisacodyl (Dulcolax -) 5 mg PO DAILY PRN PRN Reason: CONSTIPATION Escitalopram Oxalate (Lexapro -) 10 mg PO DAILY [facility] Last Admin: 02/03/17 10:03 Dose: 10 mg Furosemide (Lasix Injection -) 40 mg IVPB DAILY [facility] Last Admin: 02/03/17 10:03 Dose: 40 mg Heparin Sodium (Porcine) (Heparin -) 5,000 unit SQ BID [facility] Last Admin: 02/03/17 22:26 Dose: 5,000 unit Isosorbide Mononitrate (Imdur -) 30 mg PO BID [facility] Last Admin: 02/03/17 22:25 Dose: 30 mg Lactulose (Cephulac (Oral Use)) 20 gm PO BID [facility] Last Admin: 02/03/17 22:25 Dose: 20 gm Metoclopramide HCl (Reglan -) 5 mg PO BIDAC [facility] Last Admin: 02/04/17 06:01 Dose: 5 mg Metoprolol Succinate (Toprol Xl -) 50 mg PO DAILY [facility] Last Admin: 02/03/17 10:04 Dose: 50 mg Pantoprazole Sodium (Protonix -) 40 mg PO DAILY [facility] Last Admin: 02/03/17 10:04 Dose: 40 mg Polyethylene Glycol (Miralax (For Daily Use) -) 17 gm PO BID [facility] Last Admin: 02/03/17 22:30 Dose: 17 gm Sitagliptin Phosphate (Januvia -) 100 mg PO DAILY@0700 [facility] Last Admin: 02/04/17 06:01 Dose: 100 mg Tamsulosin HCl (Flomax -) 0.4 mg PO HS [facility] Last Admin: 02/03/17 22:25 Dose: 0.4 mg - Objective Vital Signs: Vital Signs Temperature 97.5 F L 02/04/17 06:00 Pulse Rate 72 02/04/17 06:00 Respiratory Rate 18 02/04/17 06:00 Blood Pressure 116/75 02/04/17 06:00 O2 Sat by Pulse Oximetry (%) 100 02/04/17 06:00 Constitutional: Yes: Calm Cardiovascular: Yes: Regular Rate and Rhythm Respiratory: Yes: Regular, CTA Bilaterally Gastrointestinal: Yes: Soft, Abdomen, Obese Edema: No Neurological: Yes: Alert Labs: CBC, BMP 02/02/17 05:32 02/02/17 05:32 INR, PTT INR 1.20 (0.82-1.09) H 01/29/17 13:25 - ....Imaging EKG: Image Reviewed Assessment/Plan Assessment/Plan 75 year old man with a history of HTN, HLD, DM II, CAD with prior stent, chronic diastolic CHF, pulm HTN, admitted with PSVT, sob, chf. PSVT-now controlled -adequately suppressed currently with Toprol XL 50mg daily -cont tele monitoring as long as remains inpatient -no additional work up needed at this point for this condition SOB-Acute on chronic combined systolic/diastolic chf, pulm htn -cont IV lasix another day. Plan to switch to PO tomorrow -cont supp O2 -follow up pulm htn at [facility] -resume home adcirca when possible -Could not lay flat for V/Q scan (to r/o chronic PE) -Could not have CTA chest due to elevated creatinine -LE venous dopplers negative CAD-stable -cont home medical regimen Abdominal distention-reported foul smelling urine -no obstruction on CT, but mixed blastic/lytic lesions in pelvis suggestive metastatic disease. -D/W patient. Outpatient f/u Dr. Friedman
[2017-02-04] MEDS: LACTULOSE 20 GM/30 ML UDC (FOR ORAL USE ONLY) PO SCH ×4 (10:00→21:50)
[2017-02-04] MEDS: HEPARIN NA (PORCINE) 5,000 UNITS/ML 1ML VIAL SQ SCH ×2 (10:05→22:00)
[2017-02-04] MEDS: FUROSEMIDE 40 MG/4 ML INJECTABLE VIAL IVPB SCH (10:05)
[2017-02-04] MEDS: SACUBITRIL/VALSARTAN 24 MG-26 MG TABLET PO SCH ×2 (10:05→21:59)
[2017-02-04] MEDS: ISOSORBIDE MONONITRATE 30 MG TAB.SR.24H (FP) PO SCH ×2 (10:05→21:59)
[2017-02-04] MEDS: POLYETHYLENE GLYCOL 3350 119 GM BTL PO SCH ×2 (10:05→21:51)
[2017-02-04] MEDS: ESCITALOPRAM OXALATE 10 MG TABLET (FP) PO SCH (10:06)
[2017-02-04] MEDS: PANTOPRAZOLE 40 MG TABLET (FP) PO SCH (10:06)
[2017-02-04] MEDS: METOPROLOL SUCCINATE 50 MG TAB.SR.24H (FP) PO SCH (10:06)
[2017-02-04] MEDS: amLODIPine BESYLATE 5 MG TABLET (FP) PO SCH (10:06)
--- NOTE | 2017-02-04 12:22 | PN ---
Progress Note, Physician History of Present Illness: PULMONARY ALERT,FEELING BETTER,LESS DYSPNEIC - Current Medication List Current Medications: Active Medications Amlodipine Besylate (Norvasc -) 5 mg PO DAILY [facility] Last Admin: 02/04/17 10:06 Dose: 5 mg Aspirin (Ecotrin -) 81 mg PO HS [facility] Last Admin: 02/03/17 22:25 Dose: 81 mg Atorvastatin Calcium (Lipitor -) 40 mg PO HS [facility] Last Admin: 02/03/17 22:25 Dose: 40 mg Bisacodyl (Dulcolax -) 5 mg PO DAILY PRN PRN Reason: CONSTIPATION Escitalopram Oxalate (Lexapro -) 10 mg PO DAILY [facility] Last Admin: 02/04/17 10:06 Dose: 10 mg Furosemide (Lasix Injection -) 40 mg IVPB DAILY [facility] Last Admin: 02/04/17 10:05 Dose: 40 mg Heparin Sodium (Porcine) (Heparin -) 5,000 unit SQ BID [facility] Last Admin: 02/04/17 10:05 Dose: 5,000 unit Isosorbide Mononitrate (Imdur -) 30 mg PO BID [facility] Last Admin: 02/04/17 10:05 Dose: 30 mg Lactulose (Cephulac (Oral Use)) 20 gm PO BID [facility] Last Admin: 02/04/17 10:04 Dose: 20 gm Metoclopramide HCl (Reglan -) 5 mg PO BIDAC [facility] Last Admin: 02/04/17 06:01 Dose: 5 mg Metoprolol Succinate (Toprol Xl -) 50 mg PO DAILY [facility] Last Admin: 02/04/17 10:06 Dose: 50 mg Pantoprazole Sodium (Protonix -) 40 mg PO DAILY [facility] Last Admin: 02/04/17 10:06 Dose: 40 mg Polyethylene Glycol (Miralax (For Daily Use) -) 17 gm PO BID [facility] Last Admin: 02/04/17 10:05 Dose: 17 gm Sitagliptin Phosphate (Januvia -) 100 mg PO DAILY@0700 [facility] Last Admin: 02/04/17 06:01 Dose: 100 mg Tamsulosin HCl (Flomax -) 0.4 mg PO HS [facility] Last Admin: 02/03/17 22:25 Dose: 0.4 mg - Objective Vital Signs: Vital Signs Temperature 97.5 F L 02/04/17 06:00 Pulse Rate 72 02/04/17 06:00 Respiratory Rate 18 02/04/17 06:00 Blood Pressure 116/75 02/04/17 06:00 O2 Sat by Pulse Oximetry (%) 100 02/04/17 06:00 Constitutional: Yes: Well Nourished, Calm Eyes: Yes: WNL HENT: Yes: WNL Neck: Yes: Supple Cardiovascular: Yes: Regular Rate and Rhythm, S1, S2 Respiratory: Yes: Diminished Gastrointestinal: Yes: Normal Bowel Sounds, Soft Extremities: Yes: WNL Edema: Yes Labs: Problem List - Problems (1) CHF (congestive heart failure) Code(s): I50.9 - HEART FAILURE, UNSPECIFIED (2) Pulmonary HTN Code(s): I27.2 - OTHER SECONDARY PULMONARY HYPERTENSION (3) Diabetes Code(s): E11.9 - TYPE 2 DIABETES MELLITUS WITHOUT COMPLICATIONS (4) Hypertension Code(s): I10 - ESSENTIAL (PRIMARY) HYPERTENSION (5) Morbid obesity Code(s): E66.01 - MORBID (SEVERE) OBESITY DUE TO EXCESS CALORIES Assessment/Plan IMP DYSPNEA DECOMPENSATED CHF PULMONARY HTN DM HTN MORBID OBESITY LIKELY OSAS R/O CA PLAN LASIX O2 INHALED BRONCHODILATORS PRN DAILY WTS SLEEP STUDIES OUTPATIENT PFTS OUTPATIENT BONE SCAN DR CARPENTER Problem List - Problems (1) CHF (congestive heart failure) Code(s): I50.9 - HEART FAILURE, UNSPECIFIED (2) Pulmonary HTN Code(s): I27.2 - OTHER SECONDARY PULMONARY HYPERTENSION (3) Diabetes Code(s): E11.9 - TYPE 2 DIABETES MELLITUS WITHOUT COMPLICATIONS (4) Hypertension Code(s): I10 - ESSENTIAL (PRIMARY) HYPERTENSION (5) Morbid obesity Code(s): E66.01 - MORBID (SEVERE) OBESITY DUE TO EXCESS CALORIES
[2017-02-04] MEDS ORDERED: LORAZEPAM CARPU-JECT 2 MG/ML DISP.SYRIN IVPUSH ONE (12:30)
[2017-02-04] MEDS: ATORVASTATIN CA 40 MG TABLET (FP) PO SCH (21:59)
[2017-02-04] MEDS: ASPIRIN COATED 81 MG TABLET.EC PO SCH (21:59)
[2017-02-04] MEDS: TAMSULOSIN HCL 0.4 MG CAP.ER.24H (FP) PO SCH (21:59)
--- NOTE | 2017-02-04 22:48 | PN ---
Progress Note, Physician - Current Medication List Current Medications: Active Medications Amlodipine Besylate (Norvasc -) 5 mg PO DAILY [facility] Last Admin: 02/04/17 10:06 Dose: 5 mg Aspirin (Ecotrin -) 81 mg PO HS [facility] Last Admin: 02/04/17 21:59 Dose: 81 mg Atorvastatin Calcium (Lipitor -) 40 mg PO HS [facility] Last Admin: 02/04/17 21:59 Dose: 40 mg Bisacodyl (Dulcolax -) 5 mg PO DAILY PRN PRN Reason: CONSTIPATION Last Admin: 02/04/17 18:34 Dose: 5 mg Escitalopram Oxalate (Lexapro -) 10 mg PO DAILY [facility] Last Admin: 02/04/17 10:06 Dose: 10 mg Furosemide (Lasix Injection -) 40 mg IVPB DAILY [facility] Last Admin: 02/04/17 10:05 Dose: 40 mg Heparin Sodium (Porcine) (Heparin -) 5,000 unit SQ BID [facility] Last Admin: 02/04/17 22:00 Dose: 5,000 unit Isosorbide Mononitrate (Imdur -) 30 mg PO BID [facility] Last Admin: 02/04/17 21:59 Dose: 30 mg Lactulose (Cephulac (Oral Use)) 20 gm PO BID [facility] Last Admin: 02/04/17 21:50 Dose: Not Given Metoclopramide HCl (Reglan -) 5 mg PO BIDAC [facility] Last Admin: 02/04/17 18:32 Dose: 5 mg Metoprolol Succinate (Toprol Xl -) 50 mg PO DAILY [facility] Last Admin: 02/04/17 10:06 Dose: 50 mg Pantoprazole Sodium (Protonix -) 40 mg PO DAILY [facility] Last Admin: 02/04/17 10:06 Dose: 40 mg Polyethylene Glycol (Miralax (For Daily Use) -) 17 gm PO BID [facility] Last Admin: 02/04/17 21:51 Dose: Not Given Sitagliptin Phosphate (Januvia -) 100 mg PO DAILY@0700 [facility] Last Admin: 02/04/17 06:01 Dose: 100 mg Tamsulosin HCl (Flomax -) 0.4 mg PO HS [facility] Last Admin: 02/04/17 21:59 Dose: 0.4 mg - Objective Vital Signs: Vital Signs Temperature 98.8 F 02/04/17 17:00 Pulse Rate 73 02/04/17 17:00 Respiratory Rate 18 02/04/17 17:00 Blood Pressure 134/81 02/04/17 17:00 O2 Sat by Pulse Oximetry (%) 100 02/04/17 10:00 Labs: CBC, BMP 02/02/17 05:32 02/02/17 05:32 INR, PTT INR 1.20 (0.82-1.09) H 01/29/17 13:25 Problem List - Problems (1) PSVT (paroxysmal supraventricular tachycardia) Code(s): I47.1 - SUPRAVENTRICULAR TACHYCARDIA (2) Dyspnea Code(s): R06.00 - DYSPNEA, UNSPECIFIED (3) Abdominal discomfort Code(s): R10.9 - UNSPECIFIED ABDOMINAL PAIN (4) CHF (congestive heart failure) Code(s): I50.9 - HEART FAILURE, UNSPECIFIED (5) Hypertension Code(s): I10 - ESSENTIAL (PRIMARY) HYPERTENSION (6) HLD (hyperlipidemia) Code(s): E78.5 - HYPERLIPIDEMIA, UNSPECIFIED (7) Diabetes Code(s): E11.9 - TYPE 2 DIABETES MELLITUS WITHOUT COMPLICATIONS (8) BPH (benign prostatic hyperplasia) Code(s): N40.0 - BENIGN PROSTATIC HYPERPLASIA WITHOUT LOWER URINRY TRACT SYMP (9) Depression Code(s): F32.9 - MAJOR DEPRESSIVE DISORDER, SINGLE EPISODE, UNSPECIFIED (10) Morbid obesity Code(s): E66.01 - MORBID (SEVERE) OBESITY DUE TO EXCESS CALORIES
[2017-02-05] MEDS: METOCLOPRAMIDE HCL 10 MG TABLET (FP) PO SCH ×2 (06:53→17:28)
[2017-02-05] MEDS: sitaGLIPtin PHOSPHATE 100 MG TABLET (FP) PO SCH (06:55)
[2017-02-05] MEDS: ISOSORBIDE MONONITRATE 30 MG TAB.SR.24H (FP) PO SCH ×2 (09:07→22:49)
[2017-02-05] MEDS: amLODIPine BESYLATE 5 MG TABLET (FP) PO SCH (09:08)
[2017-02-05] MEDS: METOPROLOL SUCCINATE 50 MG TAB.SR.24H (FP) PO SCH (09:08)
[2017-02-05] MEDS: ESCITALOPRAM OXALATE 10 MG TABLET (FP) PO SCH (09:08)
[2017-02-05] MEDS: FUROSEMIDE 40 MG/4 ML INJECTABLE VIAL IVPB SCH (09:08)
[2017-02-05] MEDS: PANTOPRAZOLE 40 MG TABLET (FP) PO SCH (09:08)
[2017-02-05] MEDS: HEPARIN NA (PORCINE) 5,000 UNITS/ML 1ML VIAL SQ SCH ×2 (09:09→22:49)
[2017-02-05] MEDS: LACTULOSE 20 GM/30 ML UDC (FOR ORAL USE ONLY) PO SCH ×2 (09:09→22:49)
[2017-02-05] MEDS: POLYETHYLENE GLYCOL 3350 119 GM BTL PO SCH ×2 (09:10→22:49)
[2017-02-05] MEDS: SACUBITRIL/VALSARTAN 24 MG-26 MG TABLET PO SCH ×2 (09:21→22:49)
--- NOTE | 2017-02-05 09:40 | PN ---
Progress Note, Physician Chief Complaint: TELE: NSR, rare VPC Some self limited PSVT but overall much improved Bone scan noted, lesions felt to be less likely metastatic. - Current Medication List Current Medications: Active Medications Amlodipine Besylate (Norvasc -) 5 mg PO DAILY [facility] Last Admin: 02/05/17 09:08 Dose: 5 mg Aspirin (Ecotrin -) 81 mg PO HS [facility] Last Admin: 02/04/17 21:59 Dose: 81 mg Atorvastatin Calcium (Lipitor -) 40 mg PO HS [facility] Last Admin: 02/04/17 21:59 Dose: 40 mg Bisacodyl (Dulcolax -) 5 mg PO DAILY PRN PRN Reason: CONSTIPATION Last Admin: 02/04/17 18:34 Dose: 5 mg Escitalopram Oxalate (Lexapro -) 10 mg PO DAILY [facility] Last Admin: 02/05/17 09:08 Dose: 10 mg Furosemide (Lasix Injection -) 40 mg IVPB DAILY [facility] Last Admin: 02/05/17 09:08 Dose: 40 mg Heparin Sodium (Porcine) (Heparin -) 5,000 unit SQ BID [facility] Last Admin: 02/05/17 09:09 Dose: 5,000 unit Isosorbide Mononitrate (Imdur -) 30 mg PO BID [facility] Last Admin: 02/05/17 09:07 Dose: 30 mg Lactulose (Cephulac (Oral Use)) 20 gm PO BID [facility] Last Admin: 02/05/17 09:09 Dose: Not Given Metoclopramide HCl (Reglan -) 5 mg PO BIDAC [facility] Last Admin: 02/05/17 06:53 Dose: 5 mg Metoprolol Succinate (Toprol Xl -) 50 mg PO DAILY [facility] Last Admin: 02/05/17 09:08 Dose: 50 mg Pantoprazole Sodium (Protonix -) 40 mg PO DAILY [facility] Last Admin: 02/05/17 09:08 Dose: 40 mg Polyethylene Glycol (Miralax (For Daily Use) -) 17 gm PO BID [facility] Last Admin: 02/05/17 09:10 Dose: 17 gm Sitagliptin Phosphate (Januvia -) 100 mg PO DAILY@0700 [facility] Last Admin: 02/05/17 06:55 Dose: 100 mg Tamsulosin HCl (Flomax -) 0.4 mg PO HS [facility] Last Admin: 02/04/17 21:59 Dose: 0.4 mg - Objective Vital Signs: Vital Signs Temperature 97.9 F 02/05/17 02:00 Pulse Rate 76 02/05/17 02:00 Respiratory Rate 20 02/05/17 02:00 Blood Pressure 118/80 02/05/17 02:00 O2 Sat by Pulse Oximetry (%) 98 02/04/17 21:00 Constitutional: Yes: No Distress Cardiovascular: Yes: Regular Rate and Rhythm Respiratory: Yes: CTA Bilaterally Gastrointestinal: Yes: Soft, Abdomen, Obese Edema: No Neurological: Yes: Alert Labs: CBC, BMP 02/02/17 05:32 02/02/17 05:32 INR, PTT INR 1.20 (0.82-1.09) H 01/29/17 13:25 - ....Imaging EKG: Image Reviewed Assessment/Plan Assessment/Plan 75 year old man with a history of HTN, HLD, DM II, CAD with prior stent, chronic diastolic CHF, pulm HTN, admitted with PSVT, sob, chf. PSVT-now controlled -adequately suppressed currently with Toprol XL 50mg daily -no additional work up needed at this point for this condition, will follow closely as outpatient SOB-Acute on chronic combined systolic/diastolic chf, pulm htn -switch to PO Lasix -cont supp O2; evaluate for home O2 -follow up pulm htn [facility] -resume home adcirca when possible -Could not lay flat for V/Q scan (to r/o chronic PE) -Could not have CTA chest due to elevated creatinine -LE venous dopplers negative CAD-stable -cont home medical regimen Abdominal distention -GI following -bone scan noted.
--- NOTE | 2017-02-05 12:55 | PN ---
Progress Note (short form) - Note Progress Note: PULMONARY Breathing better today. No cough or wheezing. Last Vital Signs Temp Pulse Resp BP Pulse Ox 97.9 F 96 H 18 118/80 94 L 02/05/17 02:00 02/05/17 11:51 02/05/17 08:00 02/05/17 02:00 02/05/17 11:51 Gen: NAD at rest Heart: RRR Lung: decreased breath sounds at the bases Abd: soft, nontender, obese Ext: + edema CBC, BMP 02/02/17 05:32 02/02/17 05:32 Active Medications Amlodipine Besylate (Norvasc -) 5 mg PO DAILY [facility] Last Admin: 02/05/17 09:08 Dose: 5 mg Aspirin (Ecotrin -) 81 mg PO HS [facility] Last Admin: 02/04/17 21:59 Dose: 81 mg Atorvastatin Calcium (Lipitor -) 40 mg PO HS [facility] Last Admin: 02/04/17 21:59 Dose: 40 mg Bisacodyl (Dulcolax -) 5 mg PO DAILY PRN PRN Reason: CONSTIPATION Last Admin: 02/04/17 18:34 Dose: 5 mg Escitalopram Oxalate (Lexapro -) 10 mg PO DAILY [facility] Last Admin: 02/05/17 09:08 Dose: 10 mg Furosemide (Lasix Injection -) 40 mg IVPB DAILY [facility] Last Admin: 02/05/17 09:08 Dose: 40 mg Heparin Sodium (Porcine) (Heparin -) 5,000 unit SQ BID [facility] Last Admin: 02/05/17 09:09 Dose: 5,000 unit Isosorbide Mononitrate (Imdur -) 30 mg PO BID [facility] Last Admin: 02/05/17 09:07 Dose: 30 mg Lactulose (Cephulac (Oral Use)) 20 gm PO BID [facility] Last Admin: 02/05/17 09:09 Dose: Not Given Metoclopramide HCl (Reglan -) 5 mg PO BIDAC [facility] Last Admin: 02/05/17 06:53 Dose: 5 mg Metoprolol Succinate (Toprol Xl -) 50 mg PO DAILY [facility] Last Admin: 02/05/17 09:08 Dose: 50 mg Pantoprazole Sodium (Protonix -) 40 mg PO DAILY [facility] Last Admin: 02/05/17 09:08 Dose: 40 mg Polyethylene Glycol (Miralax (For Daily Use) -) 17 gm PO BID [facility] Last Admin: 02/05/17 09:10 Dose: 17 gm Sitagliptin Phosphate (Januvia -) 100 mg PO DAILY@0700 [facility] Last Admin: 02/05/17 06:55 Dose: 100 mg Tamsulosin HCl (Flomax -) 0.4 mg PO HS [facility] Last Admin: 02/04/17 21:59 Dose: 0.4 mg A/P Pulmonary HTN Mitral Regurgitation HTN DM Morbid Obesity Likely ALY - continue lasix - monitor urine output, creatinine - beta quirino - discuss with cardiology EUGENIA-I/ARB - resume adcirca as outpt - O2 as needed - will need PSG, PFTs as outpt - DVT prophylaxis - can discharge home from pulmonary standpoint
[2017-02-05] MEDS ORDERED: PT OWN MED DRAWER 7, Y5N ONE (22:44)
[2017-02-05] MEDS: ASPIRIN COATED 81 MG TABLET.EC PO SCH (22:48)
[2017-02-05] MEDS: ATORVASTATIN CA 40 MG TABLET (FP) PO SCH (22:49)
[2017-02-05] MEDS: TAMSULOSIN HCL 0.4 MG CAP.ER.24H (FP) PO SCH (22:49)
--- NOTE | 2017-02-05 23:40 | PN ---
Progress Note, Physician - Current Medication List Current Medications: Active Medications Amlodipine Besylate (Norvasc -) 5 mg PO DAILY [facility] Last Admin: 02/05/17 09:08 Dose: 5 mg Aspirin (Ecotrin -) 81 mg PO HS [facility] Last Admin: 02/05/17 22:48 Dose: 81 mg Atorvastatin Calcium (Lipitor -) 40 mg PO HS [facility] Last Admin: 02/05/17 22:49 Dose: 40 mg Bisacodyl (Dulcolax -) 5 mg PO DAILY PRN PRN Reason: CONSTIPATION Last Admin: 02/04/17 18:34 Dose: 5 mg Escitalopram Oxalate (Lexapro -) 10 mg PO DAILY [facility] Last Admin: 02/05/17 09:08 Dose: 10 mg Furosemide (Lasix Injection -) 40 mg IVPB DAILY [facility] Last Admin: 02/05/17 09:08 Dose: 40 mg Heparin Sodium (Porcine) (Heparin -) 5,000 unit SQ BID [facility] Last Admin: 02/05/17 22:49 Dose: 5,000 unit Isosorbide Mononitrate (Imdur -) 30 mg PO BID [facility] Last Admin: 02/05/17 22:49 Dose: 30 mg Lactulose (Cephulac (Oral Use)) 20 gm PO BID [facility] Last Admin: 02/05/17 22:49 Dose: 20 gm Metoclopramide HCl (Reglan -) 5 mg PO BIDAC [facility] Last Admin: 02/05/17 17:28 Dose: 5 mg Metoprolol Succinate (Toprol Xl -) 50 mg PO DAILY [facility] Last Admin: 02/05/17 09:08 Dose: 50 mg Pantoprazole Sodium (Protonix -) 40 mg PO DAILY [facility] Last Admin: 02/05/17 09:08 Dose: 40 mg Polyethylene Glycol (Miralax (For Daily Use) -) 17 gm PO BID [facility] Last Admin: 02/05/17 22:49 Dose: Not Given Sitagliptin Phosphate (Januvia -) 100 mg PO DAILY@0700 [facility] Last Admin: 02/05/17 06:55 Dose: 100 mg Tamsulosin HCl (Flomax -) 0.4 mg PO HS [facility] Last Admin: 02/05/17 22:49 Dose: 0.4 mg - Objective Vital Signs: Vital Signs Temperature 98.8 F 02/05/17 17:00 Pulse Rate 83 02/05/17 17:00 Respiratory Rate 18 02/05/17 17:00 Blood Pressure 111/60 02/05/17 17:00 O2 Sat by Pulse Oximetry (%) 94 L 02/05/17 11:51 Labs: CBC, BMP 02/02/17 05:32 02/02/17 05:32 INR, PTT INR 1.20 (0.82-1.09) H 01/29/17 13:25 Problem List - Problems (1) PSVT (paroxysmal supraventricular tachycardia) Code(s): I47.1 - SUPRAVENTRICULAR TACHYCARDIA (2) Dyspnea Code(s): R06.00 - DYSPNEA, UNSPECIFIED (3) Abdominal discomfort Code(s): R10.9 - UNSPECIFIED ABDOMINAL PAIN (4) CHF (congestive heart failure) Code(s): I50.9 - HEART FAILURE, UNSPECIFIED (5) Hypertension Code(s): I10 - ESSENTIAL (PRIMARY) HYPERTENSION (6) HLD (hyperlipidemia) Code(s): E78.5 - HYPERLIPIDEMIA, UNSPECIFIED (7) Diabetes Code(s): E11.9 - TYPE 2 DIABETES MELLITUS WITHOUT COMPLICATIONS (8) BPH (benign prostatic hyperplasia) Code(s): N40.0 - BENIGN PROSTATIC HYPERPLASIA WITHOUT LOWER URINRY TRACT SYMP (9) Depression Code(s): F32.9 - MAJOR DEPRESSIVE DISORDER, SINGLE EPISODE, UNSPECIFIED (10) Morbid obesity Code(s): E66.01 - MORBID (SEVERE) OBESITY DUE TO EXCESS CALORIES
[2017-02-06] MEDS: METOCLOPRAMIDE HCL 10 MG TABLET (FP) PO SCH ×2 (07:01→16:50)
[2017-02-06] MEDS: sitaGLIPtin PHOSPHATE 100 MG TABLET (FP) PO SCH (07:01)
[2017-02-06] MEDS: FUROSEMIDE 40 MG/4 ML INJECTABLE VIAL IVPB SCH (09:27)
[2017-02-06] MEDS: SACUBITRIL/VALSARTAN 24 MG-26 MG TABLET PO SCH (09:27)
[2017-02-06] MEDS: HEPARIN NA (PORCINE) 5,000 UNITS/ML 1ML VIAL SQ SCH (09:27)
[2017-02-06] MEDS: PANTOPRAZOLE 40 MG TABLET (FP) PO SCH (09:28)
[2017-02-06] MEDS: ISOSORBIDE MONONITRATE 30 MG TAB.SR.24H (FP) PO SCH (09:28)
[2017-02-06] MEDS: amLODIPine BESYLATE 5 MG TABLET (FP) PO SCH (09:28)
[2017-02-06] MEDS: LACTULOSE 20 GM/30 ML UDC (FOR ORAL USE ONLY) PO SCH (09:28)
[2017-02-06] MEDS: POLYETHYLENE GLYCOL 3350 119 GM BTL PO SCH (09:28)
[2017-02-06] MEDS: METOPROLOL SUCCINATE 50 MG TAB.SR.24H (FP) PO SCH (09:28)
[2017-02-06] MEDS: ESCITALOPRAM OXALATE 10 MG TABLET (FP) PO SCH (09:28)
--- NOTE | 2017-02-06 09:51 | PN ---
Progress Note, Physician Chief Complaint: no new complaints TELE: NSR, frequent APCs and VPCs - Current Medication List Current Medications: Active Medications Amlodipine Besylate (Norvasc -) 5 mg PO DAILY [facility] Last Admin: 02/06/17 09:28 Dose: 5 mg Aspirin (Ecotrin -) 81 mg PO HS [facility] Last Admin: 02/05/17 22:48 Dose: 81 mg Atorvastatin Calcium (Lipitor -) 40 mg PO HS [facility] Last Admin: 02/05/17 22:49 Dose: 40 mg Bisacodyl (Dulcolax -) 5 mg PO DAILY PRN PRN Reason: CONSTIPATION Last Admin: 02/04/17 18:34 Dose: 5 mg Escitalopram Oxalate (Lexapro -) 10 mg PO DAILY [facility] Last Admin: 02/06/17 09:28 Dose: 10 mg Furosemide (Lasix Injection -) 40 mg IVPB DAILY [facility] Last Admin: 02/06/17 09:27 Dose: 40 mg Heparin Sodium (Porcine) (Heparin -) 5,000 unit SQ BID [facility] Last Admin: 02/06/17 09:27 Dose: 5,000 unit Isosorbide Mononitrate (Imdur -) 30 mg PO BID [facility] Last Admin: 02/06/17 09:28 Dose: 30 mg Lactulose (Cephulac (Oral Use)) 20 gm PO BID [facility] Last Admin: 02/06/17 09:28 Dose: Not Given Metoclopramide HCl (Reglan -) 5 mg PO BIDAC [facility] Last Admin: 02/06/17 07:01 Dose: 5 mg Metoprolol Succinate (Toprol Xl -) 50 mg PO DAILY [facility] Last Admin: 02/06/17 09:28 Dose: 50 mg Pantoprazole Sodium (Protonix -) 40 mg PO DAILY [facility] Last Admin: 02/06/17 09:28 Dose: 40 mg Polyethylene Glycol (Miralax (For Daily Use) -) 17 gm PO BID [facility] Last Admin: 02/06/17 09:28 Dose: Not Given Sitagliptin Phosphate (Januvia -) 100 mg PO DAILY@0700 [facility] Last Admin: 02/06/17 07:01 Dose: 100 mg Tamsulosin HCl (Flomax -) 0.4 mg PO HS [facility] Last Admin: 02/05/17 22:49 Dose: 0.4 mg - Objective Vital Signs: Vital Signs Temperature 98.7 F 02/06/17 06:00 Pulse Rate 65 02/06/17 06:00 Respiratory Rate 18 02/06/17 06:00 Blood Pressure 124/66 02/06/17 06:00 O2 Sat by Pulse Oximetry (%) 100 02/05/17 21:00 Constitutional: Yes: No Distress Cardiovascular: Yes: Regular Rate and Rhythm Respiratory: Yes: CTA Bilaterally Gastrointestinal: Yes: Soft, Abdomen, Obese Edema: No Labs: CBC, BMP 02/02/17 05:32 02/02/17 05:32 INR, PTT INR 1.20 (0.82-1.09) H 01/29/17 13:25 - ....Imaging EKG: Image Reviewed Assessment/Plan Assessment/Plan 75 year old man with a history of HTN, HLD, DM II, CAD with prior stent, chronic diastolic CHF, pulm HTN, admitted with PSVT, sob, chf. PSVT-now controlled -adequately suppressed currently with Toprol XL 50mg daily -no additional work up needed at this point for this condition, will follow closely as outpatient SOB-Acute on chronic combined systolic/diastolic chf, pulm htn -switch to PO Lasix -cont supp O2; evaluate for home O2 -follow up pulm htn at [facility] -resume home adcirca when possible -Could not lay flat for V/Q scan (to r/o chronic PE) -Could not have CTA chest due to elevated creatinine -LE venous dopplers negative CAD-stable -cont home medical regimen Abdominal distention -GI following -bone scan noted. D/C planning
[2017-02-06] MEDS ORDERED: FUROSEMIDE 40 MG TABLET (FP) PO SCH (10:00)
--- NOTE | 2017-02-06 11:54 | PN ---
Progress Note, Physician History of Present Illness: pulmonary alert feeling better,ambulating, less dyspneic. - Current Medication List Current Medications: Active Medications Amlodipine Besylate (Norvasc -) 5 mg PO DAILY [facility] Last Admin: 02/06/17 09:28 Dose: 5 mg Aspirin (Ecotrin -) 81 mg PO HS [facility] Last Admin: 02/05/17 22:48 Dose: 81 mg Atorvastatin Calcium (Lipitor -) 40 mg PO HS [facility] Last Admin: 02/05/17 22:49 Dose: 40 mg Bisacodyl (Dulcolax -) 5 mg PO DAILY PRN PRN Reason: CONSTIPATION Last Admin: 02/04/17 18:34 Dose: 5 mg Escitalopram Oxalate (Lexapro -) 10 mg PO DAILY [facility] Last Admin: 02/06/17 09:28 Dose: 10 mg Furosemide (Lasix -) 80 mg PO DAILY [facility] Last Admin: 02/06/17 10:09 Dose: Not Given Isosorbide Mononitrate (Imdur -) 30 mg PO BID [facility] Last Admin: 02/06/17 09:28 Dose: 30 mg Lactulose (Cephulac (Oral Use)) 20 gm PO BID [facility] Last Admin: 02/06/17 09:28 Dose: Not Given Metoclopramide HCl (Reglan -) 5 mg PO BIDAC [facility] Last Admin: 02/06/17 07:01 Dose: 5 mg Metoprolol Succinate (Toprol Xl -) 50 mg PO DAILY [facility] Last Admin: 02/06/17 09:28 Dose: 50 mg Pantoprazole Sodium (Protonix -) 40 mg PO DAILY [facility] Last Admin: 02/06/17 09:28 Dose: 40 mg Polyethylene Glycol (Miralax (For Daily Use) -) 17 gm PO BID [facility] Last Admin: 02/06/17 09:28 Dose: Not Given Sitagliptin Phosphate (Januvia -) 100 mg PO DAILY@0700 [facility] Last Admin: 02/06/17 07:01 Dose: 100 mg Tamsulosin HCl (Flomax -) 0.4 mg PO HS [facility] Last Admin: 02/05/17 22:49 Dose: 0.4 mg - Objective Vital Signs: Vital Signs Temperature 98.7 F 02/06/17 06:00 Pulse Rate 65 02/06/17 06:00 Respiratory Rate 18 02/06/17 08:00 Blood Pressure 124/66 02/06/17 06:00 O2 Sat by Pulse Oximetry (%) 98 02/06/17 08:00 Constitutional: Yes: Well Nourished, Calm Eyes: Yes: WNL HENT: Yes: WNL Neck: Yes: WNL Cardiovascular: Yes: Regular Rate and Rhythm, S1, S2 Respiratory: Yes: Diminished Gastrointestinal: Yes: Normal Bowel Sounds, Soft Extremities: Yes: WNL Edema: Yes Labs: CBC, BMP Problem List - Problems (1) CHF (congestive heart failure) Code(s): I50.9 - HEART FAILURE, UNSPECIFIED (2) Pulmonary HTN Code(s): I27.2 - OTHER SECONDARY PULMONARY HYPERTENSION (3) Diabetes Code(s): E11.9 - TYPE 2 DIABETES MELLITUS WITHOUT COMPLICATIONS (4) Hypertension Code(s): I10 - ESSENTIAL (PRIMARY) HYPERTENSION (5) Morbid obesity Code(s): E66.01 - MORBID (SEVERE) OBESITY DUE TO EXCESS CALORIES Assessment/Plan IMP DYSPNEA IMPROVING DECOMPENSATED CHF PULMONARY HTN DM HTN MORBID OBESITY LIKELY OSAS R/O CA PLAN LASIX O2 INHALED BRONCHODILATORS PRN DAILY WTS SLEEP STUDIES OUTPATIENT PFTS OUTPATIENT DR CARPENTER Problem List - Problems (1) CHF (congestive heart failure) Code(s): I50.9 - HEART FAILURE, UNSPECIFIED (2) Pulmonary HTN Code(s): I27.2 - OTHER SECONDARY PULMONARY HYPERTENSION (3) Diabetes Code(s): E11.9 - TYPE 2 DIABETES MELLITUS WITHOUT COMPLICATIONS (4) Hypertension Code(s): I10 - ESSENTIAL (PRIMARY) HYPERTENSION (5) Morbid obesity Code(s): E66.01 - MORBID (SEVERE) OBESITY DUE TO EXCESS CALORIES
[2017-02-06 14:38] VITALS: BP 110/53; PULSE 67; TEMP 98.3
== END 2017-02-06 17:12 | disposition home or self-care (01) | DRG 308 ==
LOC: JER 12:52 → JERBED 14:14 → J4W 15:55 → OBSVTOIN 01-30 00:57
PROVIDERS: ADMIT Internal Medicine; ATTEND Internal Medicine
DX: I47.1 Supraventricular tachycardia (principal); I50.43 Acute on chronic combined systolic (congestive) and diastolic (congestive) heart failure; I27.2 Other secondary pulmonary hypertension; E11.9 Type 2 diabetes mellitus without complications; E66.01 Morbid (severe) obesity due to excess calories; Z68.38 Body mass index [BMI] 38.0-38.9, adult; I25.10 Atherosclerotic heart disease of native coronary artery without angina pectoris; N40.0 Benign prostatic hyperplasia without lower urinary tract symptoms; F32.9 Major depressive disorder, single episode, unspecified; I34.0 Nonrheumatic mitral (valve) insufficiency; Z98.61 Coronary angioplasty status; I11.0 Hypertensive heart disease with heart failure; E78.5 Hyperlipidemia, unspecified
CPT/HCPCS: 36415; 71010-TC; 71250-TC; 74177-TC; 78306-TC; 80053; 81003; 82150; 82550; 83690; 83735; 83880; 84443; 84484; 85025; 85610; 85730; 87086; 93005; 93010; 93306-TC; 93970-TC; 94761; 97116-GP; 97161-GP; 99285-25; A9503; G0378; J1644

== ENCOUNTER 2017-10-28 12:32 | Inpatient (IN) | payer OTHER ==
[2017-10-28] MEDS ORDERED: AZITHROMYCIN IVPB 500 MG in DEXTROSE 5%-WATER - 250 ML IVPB ONE (13:27)
[2017-10-28] MEDS ORDERED: cefTRIAXone 1 GM/50 ML BAG (PRE-DOCKED) IVPB ONE (13:27)
[2017-10-28 14:35] LABS: INR 1.38 (0.82-1.09); PROTHROMBIN TIME (PATIENT) 15.6 SEC (9.98-11.88)
[2017-10-28 14:37] LABS: ACTIVATED PTT 30.9 SECONDS (26.9-34.4)
--- NOTE | 2017-10-28 14:40 | PDOC ---
History of Present Illness <Sue Fuller - Last Filed: 10/28/17 14:46> - General History Source: Patient Exam Limitations: No Limitations - History of Present Illness Initial Comments: 10/28/17 14:52 The patient is a 76-year-old male, with a past medical hx of diabetes, pulmonary HTN, hyperlipidemia, CHF, coronary artery disease s/p stent placement , who presents to the ED with shortness of breath and cough today. The patient visited Dr. Hung Friedman yesterday, had a workup done with labs and Chest X-Ray , and was diagnosed with pneumonia. Pt was given an extra dose of Lasix while in the office and has been peeing more often. Today the pt reports experiencing burning with urination and noted that his urine was foul smelling. On exam, pt states that he is experiencing left-sided chest discomfort and shortness of breath. Cough is productive of blood tinged sputum. Pt is on 5 liters of O2 at home. Denies any fever, chills, nausea, vomiting, diarrhea, or abdominal pain. <Trinidad Ferrari - Last Filed: 10/28/17 14:52> <Marycarmen Cruz - Last Filed: 10/28/17 19:06> - General Chief Complaint: Respiratory Stated Complaint: SOB Time Seen by Provider: 10/28/17 12:58 Past History - Past Medical History Cardiac Disorders: Yes (cardiomyopathy,cad) COPD: No CHF: Yes Diabetes: Yes HTN: Yes Hypercholesterolemia: Yes - Surgical History Cardiac Surgery: Yes (STENT PLACEMENT) - Suicide/Smoking/Psychosocial Hx Smoking Status: No Smoking History: Never smoked Have you smoked in the past 12 months: No Number of Cigarettes Smoked Daily: 0 Hx Alcohol Use: Yes (SOCIAL) Drug/Substance Use Hx: No Substance Use Type: None Hx Substance Use Treatment: No <Sue Fuller - Last Filed: 10/28/17 14:46> <Trinidad Ferrari - Last Filed: 10/28/17 14:52> <Marycarmen Cruz - Last Filed: 10/28/17 19:06> - Past Medical History Allergies/Adverse Reactions: Allergies Allergy/AdvReac Type Severity Reaction Status Date / Time No Known Allergies Allergy Unverified 10/28/17 12:38 Home Medications: Ambulatory Orders Alendronate Na [Fosamax (Weekly)] 70 mg PO WE 01/29/17 Amlodipine Besylate [Norvasc -] 5 mg PO DAILY 01/29/17 Aspirin [Ecotrin] 81 mg PO HS 01/29/17 Atorvastatin Calcium 40 mg PO DAILY 01/29/17 Escitalopram Oxalate [Lexapro -] 10 mg PO DAILY 01/29/17 Furosemide [Lasix] 80 mg PO DAILY 01/29/17 Isosorbide Mononitrate [Imdur -] 60 mg PO DAILY 01/29/17 Linagliptin [Tradjenta] 5 mg PO DAILY 01/29/17 Sacubitril/Valsartan [Entresto 24 mg-26 mg Tablet] 1 tab PO BID 01/29/17 Tamsulosin HCl [Flomax -] 0.4 mg PO HS 01/29/17 Metoprolol Succinate [Toprol XL -] 50 mg PO DAILY #30 tab 02/06/17 Doxycycline Hyclate [Vibramycin -] 50 mg PO BID 10/28/17 Levofloxacin [Levaquin] 500 mg PO DAILY 10/28/17 Review of Systems - Review of Systems Able to Perform ROS?: Yes Comments:: 10/28/17 14:53 GENERAL/CONSTITUTIONAL: No fever or chills. No weakness. HEAD, EYES, EARS, NOSE AND THROAT: No change in vision. No ear pain or discharge. No sore throat. CARDIOVASCULAR: (+)left-sided chest discomfort, shortness of breath. RESPIRATORY:(+)Productive cough. No wheezing, or hemoptysis. GASTROINTESTINAL: No nausea, vomiting, diarrhea or constipation. GENITOURINARY: (+)frequency, dysuria, foul-smelling urine. MUSCULOSKELETAL: No joint or muscle swelling or pain. No neck or back pain. SKIN: No rash NEUROLOGIC: No headache, vertigo, loss of consciousness, or change in strength/ sensation. ENDOCRINE: No increased thirst. No abnormal weight change. HEMATOLOGIC/LYMPHATIC: No anemia, easy bleeding, or history of blood clots. ALLERGIC/IMMUNOLOGIC: No hives or skin allergy. <Trinidad Ferrari - Last Filed: 10/28/17 14:52> *Physical Exam - Vital Signs Last Vital Signs Temp Pulse Resp BP Pulse Ox 97.8 F 88 22 163/85 96 10/28/17 12:33 10/28/17 12:33 10/28/17 12:33 10/28/17 12:33 10/28/17 12:33 <Sue Fuller - Last Filed: 10/28/17 14:46> - Vital Signs Last Vital Signs Temp Pulse Resp BP Pulse Ox 97.8 F 88 22 163/85 96 10/28/17 12:33 10/28/17 12:33 10/28/17 12:33 10/28/17 12:33 10/28/17 12:33 - Physical Exam Comments: 10/28/17 14:55 GENERAL: Awake, alert, and fully oriented, in no acute distress HEAD: No signs of trauma EYES: PERRLA, EOMI, sclera anicteric, conjunctiva clear ENT: Auricles normal inspection, hearing grossly normal, nares patent, oropharynx clear without exudates. Moist mucosa NECK: Normal ROM, supple, no lymphadenopathy, JVD, or masses LUNGS: (+)Lungs very crackly and rhonchorous, diminished at the right base HEART: Regular rate and rhythm, normal S1 and S2, no murmurs, rubs or gallops ABDOMEN: Soft, nontender, normoactive bowel sounds. No guarding, no rebound. No masses EXTREMITIES: (+)2+ pitting edema in legs bilaterally. Normal range of motion. No clubbing or cyanosis. No cords, erythema, or tenderness NEUROLOGICAL: Cranial nerves II through XII grossly intact. Normal speech, normal gait SKIN: Warm, Dry, normal turgor, no rashes or lesions noted <Trinidad Ferrari - Last Filed: 10/28/17 14:52> - Vital Signs Last Vital Signs Temp Pulse Resp BP Pulse Ox 97.8 F 85 18 123/65 96 10/28/17 12:33 10/28/17 17:15 10/28/17 17:15 10/28/17 17:15 10/28/17 17:15 <Marycarmen Cruz - Last Filed: 10/28/17 19:06> Heart Score/ECG Review - ECG Intrepretation Comment:: 10/28/17 14:46 sinus at 87, rbbb, lafb, q waves septally that are age indeterminate, no acute changes <Sue Fuller - Last Filed: 10/28/17 14:46> #2 General ECG Interpretation: Sinus Rhythm, Normal Rate (87), Normal Intervals, No acute ischemic changes Compared to previous ECG there are: No significant change (comparison 01/29/17) <Marycarmen Cruz - Last Filed: 10/28/17 19:06> ED Treatment Course - LABORATORY CBC & Chemistry Diagram: 10/28/17 14:00 10/28/17 14:00 - ADDITIONAL ORDERS Additional order review: 10/28/17 14:00 RBC TNP MCV TNP MCHC TNP RDW TNP MPV TNP Neutrophils % No Result Required. Lymphocytes % No Result Required. - RADIOLOGY Radiology Studies Ordered: Category Date Time Status CHEST X-RAY PORTABLE* [RAD] Stat Radiology 10/28/17 13:28 Taken <Sue Fuller - Last Filed: 10/28/17 14:46> - LABORATORY CBC & Chemistry Diagram: 10/28/17 14:00 10/28/17 14:00 - ADDITIONAL ORDERS Additional order review: Laboratory Results 10/28/17 14:00 Creatine Kinase 207 Troponin I 0.02 D 10/28/17 14:00 RBC TNP MCV TNP MCHC TNP RDW TNP MPV TNP Neutrophils % No Result Required. Lymphocytes % No Result Required. <Trinidad Ferrari - Last Filed: 10/28/17 14:52> - LABORATORY CBC & Chemistry Diagram: 10/28/17 18:10 10/28/17 14:00 - ADDITIONAL ORDERS Additional order review: Laboratory Results 10/28/17 10/28/17 10/28/17 14:00 14:00 14:00 PT with INR INR PTT (Actin FS) Sodium Potassium Chloride Carbon Dioxide Anion Gap BUN Creatinine Creat Clearance w eGFR Random Glucose Lactic Acid 3.9 H* Calcium Magnesium Total Bilirubin AST ALT Alkaline Phosphatase Creatine Kinase 207 Creatine Kinase Index 0.9 CK-MB (CK-2) 2.062 Troponin I 0.02 D B-Natriuretic Peptide 653.47 H Total Protein Albumin Urine Color Urine Appearance Urine pH Ur Specific [place] Urine Protein Urine Glucose (UA) Urine Ketones Urine Blood Urine Nitrite Urine Bilirubin Urine Urobilinogen Ur Leukocyte Esterase Urine WBC (Auto) Urine RBC (Auto) Ur Epithelial Cells 10/28/17 10/28/17 10/28/17 14:00 14:00 13:25 PT with INR 15.60 H INR 1.38 H PTT (Actin FS) 30.9 Sodium 140 Potassium 4.1 Chloride 96 L Carbon Dioxide 36 H Anion Gap 8 BUN 22 H Creatinine 1.2 Creat Clearance w eGFR 59.02 Random Glucose 219 H D Lactic Acid Calcium 9.3 Magnesium 1.6 L Total Bilirubin 0.6 D AST 26 D ALT 26 D Alkaline Phosphatase 116 Creatine Kinase Creatine Kinase Index CK-MB (CK-2) Troponin I B-Natriuretic Peptide Total Protein 6.9 Albumin 3.4 Urine Color Yellow Urine Appearance Clear Urine pH 6.0 Ur Specific [place] 1.026 Urine Protein 1+ H Urine Glucose (UA) Negative Urine Ketones Negative Urine Blood Negative Urine Nitrite Negative Urine Bilirubin Negative Urine Urobilinogen Negative Ur Leukocyte Esterase Negative Urine WBC (Auto) <1 Urine RBC (Auto) <1 Ur Epithelial Cells Rare 10/28/17 14:00 RBC TNP MCV TNP MCHC TNP RDW TNP MPV TNP Neutrophils % No Result Required. Lymphocytes % No Result Required. - Medications Given in the ED: ED Medications Discontinued Medications Generic Name Dose Route Start Last Admin Trade Name Nehemias PRN Reason Stop Dose Admin Ceftriaxone Sodium 1 gm 10/28/17 13:27 10/28/17 15:57 Rocephin 1gm Ivpb (Pre-Docked) IVPB 10/28/17 13:28 1 gm ONCE ONE Administration Protocol Furosemide 80 mg 10/28/17 16:19 10/28/17 16:23 Lasix Injection - IVPUSH 10/28/17 16:20 80 mg ONCE ONE Administration Azithromycin 500 mg/ Dextrose 250 mls @ 250 mls/hr 10/28/17 13:27 10/28/17 15 :57 IVPB 10/28/17 14:26 250 mls/hr ONCE ONE Administration <Marycarmen Cruz - Last Filed: 10/28/17 19:06> Medical Decision Making - Medical Decision Making 10/28/17 14:36 a/p: 76yo male with cough, congestion, sob -sent by Dr. Mirtha Friedman for admission for 15k wbc and LLL infiltrate PNA -will repeat labs, ekg, cxr -will start abx -started doxy and levaquin yesterday - only 1 dose will send cultures will admit to [facility] 10/28/17 14:[address] chowdhury - accepts pt to service <Sue Fuller - Last Filed: 10/28/17 14:46> *DC/Admit/Observation/Transfer - Discharge Dispostion Admit: Yes - Attestations Physician Attestion: 10/28/17 14:47 I, Dr. Sue Fuller DO, attest that this document has been prepared under my direction and personally reviewed by me in its entirety. I further attest, that it accurately reflects all work, treatment, procedures and medical decision -making performed by me. <Sue Fuller - Last Filed: 10/28/17 14:46> - Attestations Scribe Attestion: 10/28/17 14:59 Documentation prepared by Trinidad Ferrari, acting as medical leader for Sue Fuller DO, MD. <Trinidad Ferrari - Last Filed: 10/28/17 14:52> <Marycarmen Cruz - Last Filed: 10/28/17 19:06> Diagnosis at time of Disposition: Pneumonia - Discharge Dispostion Condition at time of disposition: Fair
[2017-10-28 14:45] LABS: TROPONIN I 0.02 ng/ml (0.00-0.05)
[2017-10-28 14:53] LABS: ALBUMIN 3.4 g/dl (3.4-5.0); ANION GAP 8 (8-16); BILIRUBIN,TOTAL 0.6 mg/dL (0.2-1.0); CALCIUM 9.3 mg/dL (8.5-10.1); CO2 36 mmol/L (21-32); CREATININE 1.2 mg/dL (0.7-1.3); GLUCOSE,RANDOM 219 mg/dL (74-106); SGPT/ALT 26 U/L (12-78); TOT PROT 6.9 g/dl (6.4-8.2)
[2017-10-28 14:54] LABS: ALK PHOS 116 U/L (45-117)
[2017-10-28 14:55] LABS: MAGNESIUM 1.6 mg/dL (1.8-2.4); SGOT/AST 26 U/L (15-37)
[2017-10-28 15:40] LABS: URINE APPEARANCE CLEAR; URINE BILIRUBIN NEGATIVE (NEGATIVE); URINE BLOOD NEGATIVE (NEGATIVE); URINE COLOR YELLOW; URINE GLUCOSE (UA) NEGATIVE (NEGATIVE); URINE KETONE NEGATIVE (NEGATIVE); URINE LEUK ESTERASE NEGATIVE (NEGATIVE); URINE NITRITE NEGATIVE (NEGATIVE); URINE UROBILINOGEN NEGATIVE mg/dL (0.2-1.0)
[2017-10-28] MEDS ORDERED: CEFTRIAXONE 2 GM/100 ML BAG IVPB ONE (15:40)
[2017-10-28 15:47] LABS: URINE PROTEIN 1+ (NEGATIVE)
[2017-10-28 15:49] LABS: URINE RBC <1 /hpf (0-3); URINE WBC <1 /hpf (3-5)
[2017-10-28] MEDS ORDERED: FUROSEMIDE 40 MG/4 ML INJECTABLE VIAL IVPUSH ONE (16:19)
[2017-10-28] MEDS ORDERED: FUROSEMIDE 40 MG/4 ML INJECTABLE VIAL ONE (16:24)
[2017-10-28 17:43] LABS: URINE LEUK ESTERASE Negative (NEGATIVE)
[2017-10-28 18:02] VITALS: BMI 35.6
[2017-10-28 18:23] LABS: MCH 33.4 pg (25.7-33.7); MCHC 32.1 g/dl (32.0-35.9); MEAN CELL VOLUME 104.1 fl (80-96); MEAN PLT VOLUME 9.5 fl (7.5-11.1); PLATELET COUNT 190 K/MM3 (134-434); RDW 14.4 % (11.9-15.9)
[2017-10-28 21:02] LABS: ANISOCYTOSIS 1+; BAND % 0.8 %; HYPOCHROMIA 0; MACROCYTOSIS 1+; METAMYELOCYTE 0 % (0-2); MICROCYTOSIS 0; MYELOCYTE 0 % (0-2); PLATELET ESTIMATE NORMAL; POIKILOCYTOSIS 0; POLYCHROMASIA 1+; REACTIVE LYMPHOCYTES 0 % (0-80)
[2017-10-29] MEDS ORDERED: ALBUTEROL SO4 2.5/IPRATROPIUM 0.5 INH SOL 3 ML VIAL.NEB. NEB PRN (02:19)
[2017-10-29] MEDS ORDERED: sitaGLIPtin PHOSPHATE 50 MG TABLET ONE (07:40)
[2017-10-29] MEDS: sitaGLIPtin PHOSPHATE 100 MG TABLET (FP) PO SCH (07:44)
[2017-10-29] MEDS ORDERED: ALBUTEROL SO4 2.5/IPRATROPIUM 0.5 INH SOL 3 ML VIAL.NEB. NEB ONE (08:56)
[2017-10-29] MEDS ORDERED: CEFTRIAXONE 1 GM/50 ML BAG ONE (08:56)
[2017-10-29] MEDS ORDERED: ATORVASTATIN CA 40 MG TABLET (FP) ONE (09:04)
[2017-10-29] MEDS: CEFTRIAXONE 1 G/50 ML PREMIX 50 ML IVPB SCH (09:20)
[2017-10-29] MEDS: SACUBITRIL/VALSARTAN 24 MG-26 MG TABLET PO SCH ×2 (09:21→23:45)
[2017-10-29] MEDS: ISOSORBIDE MONONITRATE 60 MG TAB.SR.24H (FP) PO SCH (09:21)
[2017-10-29] MEDS: amLODIPine BESYLATE 5 MG TABLET (FP) PO SCH (09:21)
[2017-10-29] MEDS: HEPARIN NA (PORCINE) 5,000 UNITS/ML 1ML VIAL SQ SCH ×2 (09:21→23:08)
[2017-10-29] MEDS: ATORVASTATIN CA 40 MG TABLET (FP) PO SCH (09:21)
[2017-10-29] MEDS: METOPROLOL SUCCINATE 50 MG TAB.SR.24H (FP) PO SCH (09:21)
[2017-10-29] MEDS: FUROSEMIDE 40 MG TABLET (FP) PO SCH (09:21)
[2017-10-29] MEDS: ESCITALOPRAM OXALATE 10 MG TABLET (FP) PO SCH (09:21)
[2017-10-29] MEDS: AZITHROMYCIN IVPB 250 MG in DEXTROSE 5%-WATER - 250 ML IVPB SCH (10:03)
--- NOTE | 2017-10-29 12:13 | CON.CARD ---
Consult Consult Specialty:: Cardiology Referred by:: Dr. Matos Reason for Consultation:: SOB, arrhythmia - History of Present Illness Chief Complaint: sent by Dr. Friedman for pneumonia History of Present Illness: 76-year-old man with the history of hypertension, hyperlipidemia, diabetes type II, CAD with prior stents, chronic combined systolic and diastolic heart failure , pulmonary hypertension, paroxysmal SVT, chronic shortness of breath, COPD, pulmonary hypertension, sent from Dr. Friedman office for PNA. Pt seen and examined in the ER in nad. coughing, mild sob, mild pleuritic chest pain. denies palpitations, no change in chronic sob/anderson. mild LE edema which is chronic, no lightheadedness, dizziness, syncope or near syncope. - History Source History Provided By: Patient, Medical Record Limitations to Obtaining History: No Limitations - Past Medical History Cardio/Vascular: Yes: CAD, HTN, Hyperlipdemia, Pulmonary Hypertension Endocrine: Yes: Diabetes Mellitus - Alcohol/Substance Use Hx Alcohol Use: Yes (SOCIAL) - Smoking History Smoking history: Never smoked Have you smoked in the past 12 months: No Aproximately how many cigarettes per day: 0 - Social History Usual Living Arrangement: With Spouse ADL: Independent History of Recent Travel: No Home Medications - Allergies Allergies/Adverse Reactions: Allergies Allergy/AdvReac Type Severity Reaction Status Date / Time No Known Allergies Allergy Unverified 10/28/17 12:38 - Home Medications Home Medications: Ambulatory Orders Alendronate Na [Fosamax (Weekly)] 70 mg PO WE 01/29/17 Amlodipine Besylate [Norvasc -] 5 mg PO DAILY 01/29/17 Aspirin [Ecotrin] 81 mg PO HS 01/29/17 Atorvastatin Calcium 40 mg PO DAILY 01/29/17 Escitalopram Oxalate [Lexapro -] 10 mg PO DAILY 01/29/17 Furosemide [Lasix] 80 mg PO DAILY 01/29/17 Isosorbide Mononitrate [Imdur -] 60 mg PO DAILY 01/29/17 Linagliptin [Tradjenta] 5 mg PO DAILY 01/29/17 Sacubitril/Valsartan [Entresto 24 mg-26 mg Tablet] 1 tab PO BID 01/29/17 Tamsulosin HCl [Flomax -] 0.4 mg PO HS 01/29/17 Metoprolol Succinate [Toprol XL -] 50 mg PO DAILY #30 tab 02/06/17 Doxycycline Hyclate [Vibramycin -] 50 mg PO BID 10/28/17 Levofloxacin [Levaquin] 500 mg PO DAILY 10/28/17 Family Disease History - Family Disease History Family History: Denies Review of Systems - Review of Systems Constitutional: denies: No Symptoms, Chills, Diaphoresis, Fever, Lethargy, Loss of Appetite, Malaise, Night Sweats, Unintentional Wgt. Loss, Weakness, Other Eyes: denies: No Symptoms, Blind Spots, Blurred Vision, Double Vision, Eye Pain , Floaters, Photophobia, Recent Change in Vision, Other HENT: denies: No Symptoms, Difficult Swallowing, Ear Discharge, Ear Pain, Epistaxis, Gingival Bleeding, Hearing Loss, Mouth Swelling, Nasal Congestion, Ocular Prosthesis, Throat Pain, Toothache, Ringing in Ears, Other Neck: denies: No Symptoms, Decreased ROM, Lumps, Pain on Movement, Stiffness, Swollen Glands, Tenderness, Other Cardiovascular: denies: No Symptoms, Chest Pain, Edema, Palpitations, Shortness of Breath, Other Respiratory: reports: Cough, Exercise Intolerance, Orthopnea, SOB, SOB on Exertion. denies: No Symptoms, Hemoptysis, PND, Snoring, Wheezing, Other Gastrointestinal: denies: No Symptoms, Abdominal Pain, Bloating, Constipation, Diarrhea, Dysphagia, Indigestion, Melena, Nausea, Rectal Bleeding, Vomiting, Vomiting Blood, Other Genitourinary: denies: No Symptoms, Burning, Discharge, Dysuria, Flank Pain, Frequency, Hematuria, Incontinence, Lesions, Menses, Pain, Testicular Mass, Testicular Pain, Testicular Swelling, Urgency, Vaginal Bleeding, Other Breasts: denies: No Symptoms Reported, See HPI, Breast Implants, Discharge from Nipple, Lumps, Pain, Skin Changes, Other Musculoskeletal: denies: No Symptoms, Back Pain, Crepitus, Decreased ROM, Extremity Pain, Joint Pain, Joint Swelling, Muscle Pain, Muscle Cramps, Muscle Weakness, Other Integumentary: denies: No Symptoms, Blister, Bruising, Change in Color, Eczema, Erythema, Incision, Lesions, Lump, Pallor, Pruritis, Rash, Wound, Other Neurological: denies: No Symptoms, Change in LOC, Change in Speech, Confusion, Dizziness, Headache, Incoordination, Numbness, Parasthesia, Pre-Existing Deficit , Seizure, Syncope, Tremors, Unsteady Gait, Weakness, Other Endocrine: denies: No Symptoms, Excessive Sweating, Flushing, Increased Hunger, Increased Thirst, Intolerance to Cold, Intolerance to Heat, Unexplained Weight Gain, Unexplained Weight Loss, Other Hematology/Lymphatic: denies: No Symptoms, Easily Bruised, Excessive Bleeding, Swollen Glands, Other Psychiatric: denies: No Symptoms, Altered Sleep Pattern, Anxiety, Depression, Hallucinations, Panic, Paranoia, Suicidal, Other - Risk Factors Known Risk Factors: Yes: Age, Hypercholesterolemia, Hypertension, Physical Inactivity Vital Signs: Vital Signs Temperature 98.6 F 10/29/17 09:41 Pulse Rate 106 H 10/29/17 09:41 Respiratory Rate 16 10/29/17 09:41 Blood Pressure 123/60 10/29/17 09:41 O2 Sat by Pulse Oximetry (%) 96 10/29/17 09:41 Constitutional: Yes: No Distress, Calm, Obese Eyes: Yes: WNL, Conjunctiva Clear, EOM Intact, PERRL HENT: Yes: WNL, Atraumatic, Normocephalic Neck: Yes: WNL, Supple, Trachea Midline Respiratory: Yes: Regular, Cough, Diminished, On Nasal O2, Rhonchi. No: Rales, Wheezes Gastrointestinal: Yes: WNL, Normal Bowel Sounds, Soft. No: Distention, Tenderness Renal/: Yes: WNL Cardiovascular: Yes: Regular Rate and Rhythm. No: Bradycardia, Tachycardia, Pulse Irregular, Gallop, Rub, Varicosities JVD: No Carotid Bruit: No PMI: Non-Displaced Heart Sounds: Yes: S1, S2. No: Split S2, S3, S4, Clicks, Gallop, Rub, Bruit Murmur: No: Systolic Murmur Musculoskeletal: Yes: WNL Extremities: Yes: WNL Edema: Yes Edema: LLE: Trace, RLE: Trace Peripheral Pulses WNL: Yes Peripheral Pulses: 2+ Left Doralis Pedis, 2+ Right Dorsalis Pedis Integumentary: Yes: WNL Neurological: Yes: WNL, Alert, Oriented, Cran Nerves II-XII Intact Psychiatric: Yes: Alert, Oriented - Other Data Labs, Other Data: CBC, BMP 10/28/17 18:10 10/28/17 14:00 INR, PTT INR 1.38 (0.82-1.09) H 10/28/17 14:00 Troponin, BNP 10/28/17 10/28/17 14:00 14:00 Troponin I 0.02 D B-Natriuretic Peptide 653.47 H Troponin, BNP 10/28/17 10/28/17 14:00 14:00 Troponin I 0.02 D B-Natriuretic Peptide 653.47 H 1. possible afib 112bpm, rbbb, lafb 2. nsr 87bpm rbbb, lafb Echo: Report Reviewed Prior Cardiac Procedures: PTCA with Stent Imaging - Results Chest X-ray: Report Reviewed, Image Reviewed EKG: Report Reviewed, Image Reviewed Other: Report Reviewed, Image Reviewed Assessment/Plan 76-year-old man with the history of hypertension, hyperlipidemia, diabetes type II, CAD with prior stents, chronic combined systolic and diastolic heart failure , pulmonary hypertension, paroxysmal SVT, chronic shortness of breath, COPD, pulmonary hypertension, sent from Dr. Friedman office for PNA. Pt seen and examined in the ER in nad. coughing, mild sob, mild pleuritic chest pain. denies palpitations, no change in chronic sob/anderson. mild LE edema which is chronic, no lightheadedness, dizziness, syncope or near syncope. ASSESSMENT PLAN IMPRESSION: 1. Pneumonia -Abx as per PMD 2.Arrhythmia-h/o PSVT, ekg here possible AFib -currently there are no telemetry beds available and pt is here for Pneumonia -will Dc tele so pt does not remain in ER. Will order Holter monitor to further evaluate if arrhythmia -if truly Afib will need to consdier anticoagulation -cont Toprol Xl 50mg daily for which he is on for PSVT 3. Shortness of breath COPD, pulmonary hypertension on home O2 as well as chronic combined systolic and diastolic heart failure. -current PNA - Currently overall euvolemic with trace Le edema - Continue Lasix 80 mg po daily for now - Continue Entresto for now. - Need to clarify if he was taking Adcirca as it will review previous was for his pulmonary hypertension. 4.Coronary artery disease with prior stent -Currently stable. - Continue aspirin, statin, and beta quirino. 5. Hypertension Adequately controlled. -Continue current medical regimen
[2017-10-29 13:08] LABS: ALBUMIN 3.3 g/dl (3.4-5.0); ANION GAP 10 (8-16); BILIRUBIN,TOTAL 0.3 mg/dL (0.2-1.0); CALCIUM 8.8 mg/dL (8.5-10.1); CO2 35 mmol/L (21-32); CREATININE 1.3 mg/dL (0.7-1.3); GLUCOSE,RANDOM 294 mg/dL (74-106); SGOT/AST 14 U/L (15-37); SGPT/ALT 24 U/L (12-78); TOT PROT 6.7 g/dl (6.4-8.2)
[2017-10-29 13:09] LABS: ALK PHOS 111 U/L (45-117); TROPONIN I 0.03 ng/ml (0.00-0.05)
--- NOTE | 2017-10-29 15:07 | CON.PULM ---
Consult Consult Specialty:: PULMONARY Referred by:: Dr. Matos Reason for Consultation:: pneumonia - History of Present Illness Chief Complaint: shortness of breath History of Present Illness: 76yo male with h/o DM, hyperlipidemia, LV diastolic dysfunction, mitral regurgitation, pulmonary HTN, CAD s/p stents, chronic hypoxic respiratory failure on home O2 who presents with worsening shortness of breath and cough. Reports cough productive of clear sputum mixed with bloody streaks. Denies subjective fevers or chills but with chest pain associated with cough. No sick contacts or recent travel. No recent antibiotics or hospitalizations. No nausea , vomiting or diarrhea. He denies any prior pulmonary problems but is on home O2. 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 - Past Medical History Cardio/Vascular: Yes: CAD, HTN, Hyperlipdemia, Pulmonary Hypertension Endocrine: Yes: Diabetes Mellitus - Alcohol/Substance Use Hx Alcohol Use: Yes (SOCIAL) - Smoking History Smoking history: Never smoked Have you smoked in the past 12 months: No Aproximately how many cigarettes per day: 0 - Social History Usual Living Arrangement: With Spouse ADL: Independent History of Recent Travel: No Home Medications - Allergies Allergies/Adverse Reactions: Allergies Allergy/AdvReac Type Severity Reaction Status Date / Time No Known Allergies Allergy Unverified 10/28/17 12:38 - Home Medications Home Medications: Ambulatory Orders Alendronate Na [Fosamax (Weekly)] 70 mg PO WE 01/29/17 Amlodipine Besylate [Norvasc -] 5 mg PO DAILY 01/29/17 Aspirin [Ecotrin] 81 mg PO HS 01/29/17 Atorvastatin Calcium 40 mg PO DAILY 01/29/17 Escitalopram Oxalate [Lexapro -] 10 mg PO DAILY 01/29/17 Furosemide [Lasix] 80 mg PO DAILY 01/29/17 Isosorbide Mononitrate [Imdur -] 60 mg PO DAILY 01/29/17 Linagliptin [Tradjenta] 5 mg PO DAILY 01/29/17 Sacubitril/Valsartan [Entresto 24 mg-26 mg Tablet] 1 tab PO BID 01/29/17 Tamsulosin HCl [Flomax -] 0.4 mg PO HS 01/29/17 Metoprolol Succinate [Toprol XL -] 50 mg PO DAILY #30 tab 02/06/17 Doxycycline Hyclate [Vibramycin -] 50 mg PO BID 10/28/17 Levofloxacin [Levaquin] 500 mg PO DAILY 10/28/17 Review of Systems - Review of Systems Constitutional: reports: Weakness. denies: Chills, Fever Eyes: denies: Recent Change in Vision HENT: denies: Nasal Congestion, Throat Pain Neck: denies: Stiffness, Tenderness Cardiovascular: reports: Chest Pain, Shortness of Breath. denies: Edema, Palpitations Respiratory: reports: Cough, Exercise Intolerance, Hemoptysis, SOB on Exertion. denies: Wheezing Gastrointestinal: denies: Abdominal Pain, Nausea, Vomiting Genitourinary: denies: Dysuria, Hematuria Neurological: denies: Dizziness, Headache Physical Exam Vital Sings: Vital Signs Temperature 98.4 F 10/29/17 14:46 Pulse Rate 79 10/29/17 14:46 Respiratory Rate 20 10/29/17 14:46 Blood Pressure 108/61 10/29/17 14:46 O2 Sat by Pulse Oximetry (%) 96 10/29/17 14:46 Constitutional: Yes: Calm Eyes: Yes: Conjunctiva Clear, EOM Intact HENT: Yes: Atraumatic, Normocephalic Neck: Yes: Supple, Trachea Midline Cardiovascular: Yes: Regular Rate and Rhythm Respiratory: Yes: Regular, Diminished (decreased breath sounds left base) ...Clubbing: No Gastrointestinal: Yes: Normal Bowel Sounds, Soft. No: Tenderness Edema: Yes (trace) Labs: CBC, BMP 10/28/17 18:10 10/29/17 12:30 Imaging - Results Chest X-ray: Report Reviewed, Image Reviewed (LLL infiltrate) Problem List - Problems (1) Pneumonia Code(s): J18.9 - PNEUMONIA, UNSPECIFIED ORGANISM (2) Diabetes Code(s): E11.9 - TYPE 2 DIABETES MELLITUS WITHOUT COMPLICATIONS (3) HLD (hyperlipidemia) Code(s): E78.5 - HYPERLIPIDEMIA, UNSPECIFIED (4) Hypertension Code(s): I10 - ESSENTIAL (PRIMARY) HYPERTENSION (5) Pulmonary HTN Code(s): I27.2 - OTHER SECONDARY PULMONARY HYPERTENSION * DO NOT USE * Assessment/Plan Pneumonia Pulmonary HTN Mitral Regurgitation Chronic Hypoxic Respiratory Failure DM CAD - agree with antibiotic coverage for community acquired pneumonia - f/u cultures - send urinary antigens - monitor fever curve, WBC trend - O2 to keep SpO2 >90% - inhaled bronchodilators - continue cardiac meds - DVT prophylaxis Thank you for this consult Beto Silva MD
--- NOTE | 2017-10-29 16:32 | EKG ---
Test Reason : Blood Pressure : / mmHG Vent. 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
[2017-10-29] MEDS ORDERED: ASPIRIN COATED 81 MG TABLET.EC PO SCH (22:00)
[2017-10-29] MEDS ORDERED: TAMSULOSIN HCL 0.4 MG CAP.ER.24H (FP) PO SCH (22:00)
[2017-10-29] MEDS: ALBUTEROL SO4 2.5/IPRATROPIUM 0.5 INH SOL 3 ML VIAL.NEB. NEB SCH (22:08)
--- NOTE | 2017-10-29 23:04 | HP ---
Admitting History and Physical - Past Medical History Cardiovascular: Yes: CAD, HTN, Hyperlipdemia, Pulmonary Hypertension Endocrine: Yes: Diabetes Mellitus - Smoking History Smoking history: Never smoked Have you smoked in the past 12 months: No Aproximately how many cigarettes per day: 0 - Alcohol/Substance Use Hx Alcohol Use: Yes (SOCIAL) - Social History ADL: Independent History of Recent Travel: No Home Medications - Allergies Allergies/Adverse Reactions: Allergies Allergy/AdvReac Type Severity Reaction Status Date / Time No Known Allergies Allergy Unverified 10/28/17 12:38 - Home Medications Home Medications: Ambulatory Orders Alendronate Na [Fosamax (Weekly)] 70 mg PO WE 01/29/17 Amlodipine Besylate [Norvasc -] 5 mg PO DAILY 01/29/17 Aspirin [Ecotrin] 81 mg PO HS 01/29/17 Atorvastatin Calcium 40 mg PO DAILY 01/29/17 Escitalopram Oxalate [Lexapro -] 10 mg PO DAILY 01/29/17 Furosemide [Lasix] 80 mg PO DAILY 01/29/17 Isosorbide Mononitrate [Imdur -] 60 mg PO DAILY 01/29/17 Linagliptin [Tradjenta] 5 mg PO DAILY 01/29/17 Sacubitril/Valsartan [Entresto 24 mg-26 mg Tablet] 1 tab PO BID 01/29/17 Tamsulosin HCl [Flomax -] 0.4 mg PO HS 01/29/17 Metoprolol Succinate [Toprol XL -] 50 mg PO DAILY #30 tab 02/06/17 Doxycycline Hyclate [Vibramycin -] 50 mg PO BID 10/28/17 Levofloxacin [Levaquin] 500 mg PO DAILY 10/28/17 Physical Examination Vital Signs: Vital Signs Temperature 98.5 F 10/29/17 17:05 Pulse Rate 90 10/29/17 17:05 Respiratory Rate 20 10/29/17 17:05 Blood Pressure 138/63 10/29/17 17:05 O2 Sat by Pulse Oximetry (%) 96 10/29/17 14:46 Labs: CBC, BMP 10/28/17 18:10 10/29/17 12:30
[2017-10-30] MEDS: ALBUTEROL SO4 2.5/IPRATROPIUM 0.5 INH SOL 3 ML VIAL.NEB. NEB SCH ×3 (06:01→21:40)
[2017-10-30] MEDS: sitaGLIPtin PHOSPHATE 100 MG TABLET (FP) PO SCH (06:27)
[2017-10-30 08:55] LABS: BASO # 0.1 # (0.1-1); BASO % 0.4 % (0-2.0); EOS % 0.1 % (0-4.5); LYMPH # 0.9 (8-40); MCH 32.7 pg (25.7-33.7); MCHC 31.5 g/dl (32.0-35.9); MEAN CELL VOLUME 103.7 fl (80-96); MEAN PLT VOLUME 8.9 fl (7.5-11.1); MONO # 0.8 # (3.8-10.2); NEUT # 16.7 # (42.8-82.8); NEUT % 90.3 % (42.8-82.8); PLATELET COUNT 216 K/MM3 (134-434); RDW 14.1 % (11.9-15.9); WHITE BLOOD COUNT 18.5 K/mm3 (4.0-10.0)
[2017-10-30 09:35] LABS: ALBUMIN 3.1 g/dl (3.4-5.0); ANION GAP 7 (8-16); BILIRUBIN,TOTAL 0.5 mg/dL (0.2-1.0); CALCIUM 8.3 mg/dL (8.5-10.1); CO2 38 mmol/L (21-32); CREATININE 1.1 mg/dL (0.7-1.3); GLUCOSE,RANDOM 235 mg/dL (74-106); SGOT/AST 12 U/L (15-37); SGPT/ALT 24 U/L (12-78); TOT PROT 6.3 g/dl (6.4-8.2)
[2017-10-30 09:36] LABS: ALK PHOS 110 U/L (45-117)
[2017-10-30] MEDS ORDERED: PT OWN MED DRAWER 7, Y5N ONE ×3 (09:57→21:38)
--- NOTE | 2017-10-30 10:04 | PN ---
Progress Note (short form) - Note Progress Note: PULMONARY OOB TO CHAIR VSS/AFEBRILE COUGHING BLOOD STREAKED SPUTUM ANICTERIC DIMINISHED BREATH SOUNDS LEFT BASE S1S2 OBESE NO EDEMA WBC 18.5 HGB 11.5 BUN 38 CR 1.1 LACTIC ACID 0.8 CXR/MEDS/MICRO REVIEWED/CT CHEST FROM 01/2017 REVIEWED ELEVATED LEFT HEMIDIAPHRAGM URINE AGS NEGATIVE BLOOD CULTURES NEGATIVE Pneumonia Pulmonary HTN/TR Mitral Regurgitation Chronic Hypoxic Respiratory Failure/ON HOME O2 DM CAD/PCI STENTS/LVD ?GERD - antibiotic coverage for community acquired pneumonia - monitor fever curve, WBC trend - O2 to keep SpO2 >90% - inhaled bronchodilators - continue cardiac meds - DVT prophylaxis - GI beata LEWIS MD -
[2017-10-30] MEDS: CEFTRIAXONE 1 G/50 ML PREMIX 50 ML IVPB SCH (10:22)
[2017-10-30] MEDS: AZITHROMYCIN IVPB 250 MG in DEXTROSE 5%-WATER - 250 ML IVPB SCH (10:23)
[2017-10-30] MEDS: HEPARIN NA (PORCINE) 5,000 UNITS/ML 1ML VIAL SQ SCH ×2 (10:24→22:31)
[2017-10-30] MEDS: ISOSORBIDE MONONITRATE 60 MG TAB.SR.24H (FP) PO SCH (10:27)
[2017-10-30] MEDS: ATORVASTATIN CA 40 MG TABLET (FP) PO SCH (10:27)
[2017-10-30] MEDS: amLODIPine BESYLATE 5 MG TABLET (FP) PO SCH (10:27)
[2017-10-30] MEDS: FUROSEMIDE 40 MG TABLET (FP) PO SCH (10:27)
[2017-10-30] MEDS: SACUBITRIL/VALSARTAN 24 MG-26 MG TABLET PO SCH ×2 (10:28→18:34)
[2017-10-30] MEDS: ESCITALOPRAM OXALATE 10 MG TABLET (FP) PO SCH (10:28)
--- NOTE | 2017-10-30 10:30 | PN ---
Progress Note, Physician Chief Complaint: no acute distress - Current Medication List Current Medications: Active Medications Albuterol Sulfate (Ventolin 0.083% Nebulizer Soln -) 1 amp NEB Q4H PRN PRN Reason: SHORT OF BREATH/WHEEZING Albuterol/Ipratropium (Duoneb -) 1 amp NEB TIDR [facility] Last Admin: 10/30/17 06:01 Dose: 1 amp Amlodipine Besylate (Norvasc -) 5 mg PO DAILY [facility] Last Admin: 10/29/17 09:21 Dose: 5 mg Aspirin (Ecotrin -) 81 mg PO HS [facility] Last Admin: 10/29/17 23:08 Dose: 81 mg Atorvastatin Calcium (Lipitor -) 40 mg PO DAILY [facility] Last Admin: 10/29/17 09:21 Dose: 40 mg Escitalopram Oxalate (Lexapro -) 10 mg PO DAILY [facility] Last Admin: 10/29/17 09:21 Dose: 10 mg Furosemide (Lasix -) 80 mg PO DAILY [facility] Last Admin: 10/29/17 09:21 Dose: 80 mg Heparin Sodium (Porcine) (Heparin -) 5,000 unit SQ BID [facility] Last Admin: 10/29/17 23:08 Dose: 5,000 unit Azithromycin 250 mg/ Dextrose 250 mls @ 250 mls/hr IVPB DAILY [facility] Last Admin: 10/29/17 10:03 Dose: 250 mls/hr CEFTRIAXONE 1 G/50 ML PREMIX (Ceftriaxone 1 Gm-D5w Bag) 50 mls @ 100 mls/hr IVPB DAILY [facility] Last Admin: 10/29/17 09:20 Dose: 100 mls/hr Isosorbide Mononitrate (Imdur -) 60 mg PO DAILY [facility] Last Admin: 10/29/17 09:21 Dose: 60 mg Metoprolol Succinate (Toprol Xl -) 50 mg PO DAILY [facility] Last Admin: 10/29/17 09:21 Dose: 50 mg Sitagliptin Phosphate (Januvia -) 100 mg PO DAILY@0700 [facility] Last Admin: 10/30/17 06:27 Dose: 100 mg Tamsulosin HCl (Flomax -) 0.4 mg PO HS [facility] Last Admin: 10/29/17 23:07 Dose: 0.4 mg - Objective Vital Signs: Vital Signs Temperature 98.1 F 10/30/17 06:00 Pulse Rate 84 10/30/17 06:00 Respiratory Rate 20 10/30/17 06:00 Blood Pressure 118/58 10/30/17 06:00 O2 Sat by Pulse Oximetry (%) 96 10/29/17 21:00 Constitutional: Yes: No Distress Cardiovascular: Yes: Regular Rate and Rhythm Respiratory: Yes: Other (decreased breath sounds left base) Gastrointestinal: Yes: Soft, Abdomen, Obese Edema: No Labs: CBC, BMP 10/30/17 08:00 10/30/17 08:00 INR, PTT INR 1.38 (0.82-1.09) H 10/28/17 14:00 Microbiology 10/28/17 13:45 Blood - Peripheral Venous Blood Culture - Preliminary NO GROWTH OBTAINED AFTER 24 HOURS, INCUBATION TO CONTINUE FOR 4 DAYS. 10/28/17 13:45 Blood - Peripheral Venous Blood Culture - Preliminary NO GROWTH OBTAINED AFTER 24 HOURS, INCUBATION TO CONTINUE FOR 4 DAYS. Laboratory Tests 10/29/17 10/30/17 10/30/17 12:30 08:00 08:00 WBC 18.5 H Hgb 11.5 L Plt Count 216 Sodium 140 BUN 38 H Creatinine 1.1 Troponin I 0.03 D Assessment/Plan ASSESSMENT/ PLAN: 1. Pneumonia -Abx as per PMD 2.Arrhythmia-h/o PSVT, ekg here possible AFib - Holter monitor to further evaluate if arrhythmia -cont Toprol Xl 50mg daily for which he is on for PSVT 3. Shortness of breath COPD, pulmonary hypertension on home O2 as well as chronic combined systolic and diastolic heart failure. -current PNA - Currently overall euvolemic with trace Le edema - Continue Lasix 80 mg po daily for now - Continue Entresto for now. 4.Coronary artery disease with prior stent -Currently stable. - Continue aspirin, statin, and beta quirino. 5. Hypertension Adequately controlled. -Continue current medical regimen
[2017-10-30] MEDS: METOPROLOL SUCCINATE 50 MG TAB.SR.24H (FP) PO SCH (10:31)
--- NOTE | 2017-10-30 10:52 | CON.ID ---
Consult Consult Specialty:: infectious diseases Referred by:: Reason for Consultation:: pneumonia - History of Present Illness Chief Complaint: cough weakness History of Present Illness: 76-year-old man with the history of hypertension, hyperlipidemia, diabetes type II, CAD with prior stents, chronic combined systolic and diastolic heart failure , pulmonary hypertension, paroxysmal SVT, chronic shortness of breath, COPD, pulmonary hypertension, admitted for cough and yellowish sputum production According tot he patient he has been sick for last 3 weeks and recently had a flu shot taken.He is also feeling very weak patient was worked up here and started on abx currently patient has noticed that he has been producing blood tinged sputum feels better denies any other issues or travel has also known history of pul HTN - History Source History Provided By: Patient Limitations to Obtaining History: No Limitations - Past Medical History Cardio/Vascular: Yes: CAD, HTN, Hyperlipdemia, Pulmonary Hypertension Endocrine: Yes: Diabetes Mellitus - Alcohol/Substance Use Hx Alcohol Use: Yes (SOCIAL) - Smoking History Smoking history: Never smoked Have you smoked in the past 12 months: No Aproximately how many cigarettes per day: 0 - Social History Usual Living Arrangement: With Spouse ADL: Independent History of Recent Travel: No Home Medications - Allergies Allergies/Adverse Reactions: Allergies Allergy/AdvReac Type Severity Reaction Status Date / Time No Known Allergies Allergy Unverified 10/28/17 12:38 - Home Medications Home Medications: Ambulatory Orders Alendronate Na [Fosamax (Weekly)] 70 mg PO WE 01/29/17 Amlodipine Besylate [Norvasc -] 5 mg PO DAILY 01/29/17 Aspirin [Ecotrin] 81 mg PO HS 01/29/17 Atorvastatin Calcium 40 mg PO DAILY 01/29/17 Escitalopram Oxalate [Lexapro -] 10 mg PO DAILY 01/29/17 Furosemide [Lasix] 80 mg PO DAILY 01/29/17 Isosorbide Mononitrate [Imdur -] 60 mg PO DAILY 01/29/17 Linagliptin [Tradjenta] 5 mg PO DAILY 01/29/17 Sacubitril/Valsartan [Entresto 24 mg-26 mg Tablet] 1 tab PO BID 01/29/17 Tamsulosin HCl [Flomax -] 0.4 mg PO HS 01/29/17 Metoprolol Succinate [Toprol XL -] 50 mg PO DAILY #30 tab 02/06/17 Doxycycline Hyclate [Vibramycin -] 50 mg PO BID 10/28/17 Levofloxacin [Levaquin] 500 mg PO DAILY 10/28/17 Review of Systems - Review of Systems Constitutional: reports: No Symptoms Eyes: reports: No Symptoms HENT: reports: No Symptoms Neck: reports: No Symptoms Cardiovascular: reports: No Symptoms Respiratory: reports: Cough, Hemoptysis Gastrointestinal: reports: No Symptoms Genitourinary: reports: No Symptoms Musculoskeletal: reports: No Symptoms Integumentary: reports: No Symptoms Neurological: reports: No Symptoms Endocrine: reports: No Symptoms Hematology/Lymphatic: reports: No Symptoms Psychiatric: reports: No Symptoms Physical Exam Vital Signs: Vital Signs Temperature 98.1 F 10/30/17 06:00 Pulse Rate 84 10/30/17 06:00 Respiratory Rate 20 10/30/17 06:00 Blood Pressure 118/58 10/30/17 06:00 O2 Sat by Pulse Oximetry (%) 96 10/29/17 21:00 Constitutional: Yes: Calm, Mild Distress Eyes: Yes: Conjunctiva Clear HENT: Yes: Atraumatic, Normocephalic Neck: Yes: Supple, Trachea Midline Cardiovascular: Yes: S1, S2 Respiratory: Yes: On Nasal O2, Poor Air Entry (left lower lobe) Gastrointestinal: Yes: Normal Bowel Sounds, Soft Musculoskeletal: Yes: WNL Extremities: Yes: WNL Neurological: Yes: Alert, Oriented Psychiatric: Yes: Alert, Oriented Labs: CBC, BMP 10/30/17 08:00 10/30/17 08:00 Imaging - Results Chest X-ray: Report Reviewed, Image Reviewed Assessment/Plan Problem List - Problems (1) Pneumonia Code(s): J18.9 - PNEUMONIA, UNSPECIFIED ORGANISM (2) Diabetes Code(s): E11.9 - TYPE 2 DIABETES MELLITUS WITHOUT COMPLICATIONS (3) HLD (hyperlipidemia) Code(s): E78.5 - HYPERLIPIDEMIA, UNSPECIFIED (4) Hypertension Code(s): I10 - ESSENTIAL (PRIMARY) HYPERTENSION (5) Pulmonary HTN Code(s): I27.2 - OTHER SECONDARY PULMONARY HYPERTENSION * DO NOT USE * i am a bit worried about the blood tinged sputum.patient does ahve pul HTN plan continue current line of abx if patient does not improve or has any more blood tinged sputum i would consider getting CT scan to make sure we are not missing anything rest continue current mgmt incentive crow
[2017-10-30] MEDS ORDERED: POTASSIUM CHLORIDE 30 MEQ in SODIUM CHLORIDE 300 ML IVPB ONE (11:15)
[2017-10-30] MEDS: PANTOPRAZOLE 40 MG TABLET (FP) PO SCH (12:53)
--- NOTE | 2017-10-30 13:53 | EKG ---
Test Reason : Blood Pressure : / mmHG Vent. Rate : 112 BPM Atrial Rate : 141 BPM P-R Int : 000 ms QRS Dur : 160 ms QT Int : 440 ms P-R-T Axes : 000 -86 019 degrees QTc Int : 600 ms POOR DATA QUALITY, INTERPRETATION MAY BE ADVERSELY AFFECTED PROBABLE SINUS RHYTHM WITH FREQUENT ATRIAL PREMATURE CONTRACTIONS RIGHT BUNDLE BRANCH BLOCK NONSPECIFIC ST ABNORMALITY Confirmed by DINORA LUIS MD ([id number]) on 10/30/2017 1:52:35 PM Referred By: Confirmed By:DINORA LUIS MD
[2017-10-30] MEDS ORDERED: ZINC OXIDE/PANTHENOL/VITAMIN E 56 GM TUBE TP PRN (16:32)
--- NOTE | 2017-10-30 17:03 | CON.GI ---
Consult Consult Specialty:: gastroenterology Referred by:: Dr Hung Friedman - History of Present Illness History of Present Illness: 76 y/o male with COPD was admitted because of hemoptysis and shortness of breath. He was asked to be seen because of abdominal pain. He complains of early satiety , heartburns and atyupical shest pain. He also complains of excessive abdominal bloating and occaisonal constipation. He denies rectal bleeding, melena, weight loss and dysphagia. - History Source History Provided By: Patient - Past Medical History Cardio/Vascular: Yes: CAD, HTN, Hyperlipdemia, Pulmonary Hypertension Endocrine: Yes: Diabetes Mellitus - Alcohol/Substance Use Hx Alcohol Use: Yes (SOCIAL) - Smoking History Smoking history: Never smoked Have you smoked in the past 12 months: No Aproximately how many cigarettes per day: 0 - Social History Usual Living Arrangement: With Spouse ADL: Independent History of Recent Travel: No Home Medications - Allergies Allergies/Adverse Reactions: Allergies Allergy/AdvReac Type Severity Reaction Status Date / Time No Known Allergies Allergy Unverified 10/28/17 12:38 - Home Medications Home Medications: Ambulatory Orders Alendronate Na [Fosamax (Weekly)] 70 mg PO WE 01/29/17 Amlodipine Besylate [Norvasc -] 5 mg PO DAILY 01/29/17 Aspirin [Ecotrin] 81 mg PO HS 01/29/17 Atorvastatin Calcium 40 mg PO DAILY 01/29/17 Escitalopram Oxalate [Lexapro -] 10 mg PO DAILY 01/29/17 Furosemide [Lasix] 80 mg PO DAILY 01/29/17 Isosorbide Mononitrate [Imdur -] 60 mg PO DAILY 01/29/17 Linagliptin [Tradjenta] 5 mg PO DAILY 01/29/17 Sacubitril/Valsartan [Entresto 24 mg-26 mg Tablet] 1 tab PO BID 01/29/17 Tamsulosin HCl [Flomax -] 0.4 mg PO HS 01/29/17 Metoprolol Succinate [Toprol XL -] 50 mg PO DAILY #30 tab 02/06/17 Doxycycline Hyclate [Vibramycin -] 50 mg PO BID 10/28/17 Levofloxacin [Levaquin] 500 mg PO DAILY 10/28/17 Review of Systems - Review of Systems Constitutional: denies: No Symptoms, Chills, Diaphoresis, Fever, Lethargy, Loss of Appetite, Malaise, Night Sweats, Unintentional Wgt. Loss, Weakness, Other Eyes: denies: No Symptoms, Blind Spots, Blurred Vision, Double Vision, Eye Pain , Floaters, Photophobia, Recent Change in Vision, Other Respiratory: reports: Cough, Hemoptysis Gastrointestinal: reports: Bloating. denies: Abdominal Pain, Constipation, Diarrhea, Dysphagia, Indigestion, Melena, Nausea, Rectal Bleeding, Vomiting Physical Exam-GI Vital Signs: Vital Signs Temperature 98.6 F 10/30/17 10:00 Pulse Rate 67 10/30/17 10:00 Respiratory Rate 18 10/30/17 10:00 Blood Pressure 109/57 10/30/17 10:00 O2 Sat by Pulse Oximetry (%) 99 10/30/17 09:00 Constitutional: Yes: Obese Eyes: Yes: Conjunctiva Clear HENT: Yes: Atraumatic Neck: Yes: Trachea Midline Respiratory: Yes: CTA Bilaterally ...Palpate: No: Firm/Rigid, Guarding, Hepatomegaly, Mass, Pulsatile Mass, Splenomegaly, Tenderness Labs: CBC, BMP 10/30/17 08:00 10/30/17 08:00 INR, PTT INR 1.38 (0.82-1.09) H 10/28/17 14:00 Hepatic Panel Total Bilirubin 0.5 mg/dL (0.2-1.0) D 10/30/17 08:00 AST 12 U/L (15-37) L 10/30/17 08:00 ALT 24 U/L (12-78) 10/30/17 08:00 Alkaline Phosphatase 110 U/L (45-117) 10/30/17 08:00 Albumin 3.1 g/dl (3.4-5.0) L 10/30/17 08:00 Problem List - Problems (1) Abdominal bloating Assessment/Plan: r/o small bowel bacterial overgrowth R>Flagyl 250mg tid Creon 36.000 with meals Code(s): R14.0 - ABDOMINAL DISTENSION (GASEOUS) (2) Early satiety Assessment/Plan: r/o gastroparesis, dyspepsia R> Reglan 5mg 30 min ac Protonix 40 mg daily Code(s): R68.81 - EARLY SATIETY
[2017-10-30] MEDS: ASPIRIN COATED 81 MG TABLET.EC PO SCH (17:29)
[2017-10-30] MEDS: NYSTATIN 100000 UNIT/GM TOPICAL OINTMENT 15 GM TUBE TP SCH ×2 (17:29→22:32)
[2017-10-30] MEDS ORDERED: POTASSIUM CHLORIDE TABS 20 MEQ TABLET.ER (FP) PO ONE (18:00)
[2017-10-30] MEDS: TAMSULOSIN HCL 0.4 MG CAP.ER.24H (FP) PO SCH (18:34)
[2017-10-30] MEDS: LIPASE/PROTEASE/AMYLASE 36,000 UNIT CAPSULE PO SCH (19:20)
[2017-10-30] MEDS: metroNIDAZOLE 250 MG TABLET PO SCH (22:31)
--- NOTE | 2017-10-31 00:19 | PN ---
Progress Note, Physician - Current Medication List Current Medications: Active Medications Albuterol Sulfate (Ventolin 0.083% Nebulizer Soln -) 1 amp NEB Q4H PRN PRN Reason: SHORT OF BREATH/WHEEZING Albuterol/Ipratropium (Duoneb -) 1 amp NEB TIDR [facility] Last Admin: 10/30/17 21:40 Dose: 1 amp Amlodipine Besylate (Norvasc -) 5 mg PO DAILY [facility] Last Admin: 10/30/17 10:27 Dose: 5 mg Aspirin (Ecotrin -) 81 mg PO DAILY [facility] Last Admin: 10/30/17 17:29 Dose: 81 mg Atorvastatin Calcium (Lipitor -) 40 mg PO DAILY [facility] Last Admin: 10/30/17 10:27 Dose: 40 mg Escitalopram Oxalate (Lexapro -) 10 mg PO DAILY [facility] Last Admin: 10/30/17 10:28 Dose: 10 mg Furosemide (Lasix -) 80 mg PO DAILY [facility] Last Admin: 10/30/17 10:27 Dose: 80 mg Heparin Sodium (Porcine) (Heparin -) 5,000 unit SQ BID [facility] Last Admin: 10/30/17 22:31 Dose: 5,000 unit Azithromycin 250 mg/ Dextrose 250 mls @ 250 mls/hr IVPB DAILY [facility] Last Admin: 10/30/17 10:23 Dose: 250 mls/hr CEFTRIAXONE 1 G/50 ML PREMIX (Ceftriaxone 1 Gm-D5w Bag) 50 mls @ 100 mls/hr IVPB DAILY [facility] Last Admin: 10/30/17 10:22 Dose: 100 mls/hr Isosorbide Mononitrate (Imdur -) 60 mg PO DAILY [facility] Last Admin: 10/30/17 10:27 Dose: 60 mg Metoprolol Succinate (Toprol Xl -) 50 mg PO DAILY [facility] Last Admin: 10/30/17 10:31 Dose: 50 mg Metronidazole (Flagyl -) 250 mg PO TID [facility] Last Admin: 10/30/17 22:31 Dose: 250 mg Nystatin (Mycostatin Ointment -) 1 applic TP BID [facility] Last Admin: 10/30/17 22:32 Dose: 1 applic Pancrelipase (Creon Dr 36,000 Units Capsule) 1 cap PO TIDCM [facility] Last Admin: 10/30/17 19:20 Dose: Not Given Pantoprazole Sodium (Protonix -) 40 mg PO DAILY [facility] Last Admin: 10/30/17 12:53 Dose: 40 mg Sitagliptin Phosphate (Januvia -) 100 mg PO DAILY@0700 [facility] Last Admin: 10/30/17 06:27 Dose: 100 mg Tamsulosin HCl (Flomax -) 0.4 mg PO DAILY@0830 [facility] Last Admin: 10/30/17 18:34 Dose: 0.4 mg Zinc Oxide/Panthenol/Vitamin E (Balmex Cream -) 1 applic TP DAILY PRN PRN Reason: APPLY TO RECTUM - Objective Vital Signs: Vital Signs Temperature 98.1 F 10/30/17 22:00 Pulse Rate 89 10/30/17 22:00 Respiratory Rate 18 10/30/17 22:00 Blood Pressure 119/69 10/30/17 22:00 O2 Sat by Pulse Oximetry (%) 96 10/30/17 21:00 Labs: CBC, BMP 10/30/17 08:00 10/30/17 08:00 INR, PTT INR 1.38 (0.82-1.09) H 10/28/17 14:00
[2017-10-31] MEDS: ALBUTEROL SO4 2.5/IPRATROPIUM 0.5 INH SOL 3 ML VIAL.NEB. NEB SCH ×3 (06:14→22:53)
[2017-10-31] MEDS ORDERED: PT OWN MED DRAWER 7, Y5N ONE ×5 (06:35→22:50)
[2017-10-31] MEDS: metroNIDAZOLE 250 MG TABLET PO SCH ×3 (06:45→23:12)
[2017-10-31] MEDS: SACUBITRIL/VALSARTAN 24 MG-26 MG TABLET PO SCH ×2 (06:45→17:30)
[2017-10-31] MEDS: sitaGLIPtin PHOSPHATE 100 MG TABLET (FP) PO SCH (06:45)
[2017-10-31] MEDS ORDERED: INSULIN (NOVOLOG) ASPART 100 UNITS/ML 10ML VIAL ONE (08:15)
[2017-10-31] MEDS: TAMSULOSIN HCL 0.4 MG CAP.ER.24H (FP) PO SCH (09:01)
[2017-10-31] MEDS: LIPASE/PROTEASE/AMYLASE 36,000 UNIT CAPSULE PO SCH ×3 (09:01→17:29)
[2017-10-31] MEDS: amLODIPine BESYLATE 5 MG TABLET (FP) PO SCH (10:59)
[2017-10-31] MEDS: ISOSORBIDE MONONITRATE 60 MG TAB.SR.24H (FP) PO SCH (10:59)
[2017-10-31] MEDS: CEFTRIAXONE 1 G/50 ML PREMIX 50 ML IVPB SCH (10:59)
[2017-10-31] MEDS: ATORVASTATIN CA 40 MG TABLET (FP) PO SCH (11:00)
[2017-10-31] MEDS: PANTOPRAZOLE 40 MG TABLET (FP) PO SCH (11:00)
[2017-10-31] MEDS: FUROSEMIDE 40 MG TABLET (FP) PO SCH (11:00)
[2017-10-31] MEDS: NYSTATIN 100000 UNIT/GM TOPICAL OINTMENT 15 GM TUBE TP SCH ×2 (11:00→23:14)
[2017-10-31] MEDS: ASPIRIN COATED 81 MG TABLET.EC PO SCH (11:01)
[2017-10-31] MEDS: METOPROLOL SUCCINATE 50 MG TAB.SR.24H (FP) PO SCH (11:01)
[2017-10-31] MEDS: HEPARIN NA (PORCINE) 5,000 UNITS/ML 1ML VIAL SQ SCH ×2 (11:01→23:14)
[2017-10-31] MEDS: ESCITALOPRAM OXALATE 10 MG TABLET (FP) PO SCH (11:01)
[2017-10-31] MEDS: AZITHROMYCIN IVPB 250 MG in DEXTROSE 5%-WATER - 250 ML IVPB SCH (11:50)
--- NOTE | 2017-10-31 12:21 | PN ---
Progress Note (short form) - Note Progress Note: PULMONARY States breathing is improving. Still with cough with bloody specks. No fevers recorded. Last Vital Signs Temp Pulse Resp BP Pulse Ox 98.0 F 99 H 20 126/72 96 10/31/17 06:00 10/31/17 06:00 10/31/17 06:00 10/31/17 06:00 10/30/17 21:00 Gen: NAD at rest Heart: RRR Lung: distant breath sounds Abd: soft, nontender Ext: no edema CBC, BMP 10/30/17 08:00 10/30/17 08:00 Active Medications Albuterol Sulfate (Ventolin 0.083% Nebulizer Soln -) 1 amp NEB Q4H PRN PRN Reason: SHORT OF BREATH/WHEEZING Albuterol/Ipratropium (Duoneb -) 1 amp NEB TIDR [facility] [place] Last Admin: 10/31/17 06:14 Dose: 1 amp Amlodipine Besylate (Norvasc -) 5 mg PO DAILY [facility] [place] Last Admin: 10/31/17 10:59 Dose: 5 mg Aspirin (Ecotrin -) 81 mg PO DAILY [facility] [place] Last Admin: 10/31/17 11:01 Dose: 81 mg Atorvastatin Calcium (Lipitor -) 40 mg PO DAILY [facility] [place] Last Admin: 10/31/17 11:00 Dose: 40 mg Escitalopram Oxalate (Lexapro -) 10 mg PO DAILY [facility] [place] Last Admin: 10/31/17 11:01 Dose: 10 mg Furosemide (Lasix -) 80 mg PO DAILY [facility] [place] Last Admin: 10/31/17 11:00 Dose: 80 mg Heparin Sodium (Porcine) (Heparin -) 5,000 unit SQ BID [facility] [place] Last Admin: 10/31/17 11:01 Dose: 5,000 unit Azithromycin 250 mg/ Dextrose 250 mls @ 250 mls/hr IVPB DAILY [facility] [place] Last Admin: 10/31/17 11:50 Dose: 250 mls/hr CEFTRIAXONE 1 G/50 ML PREMIX (Ceftriaxone 1 Gm-D5w Bag) 50 mls @ 100 mls/hr IVPB DAILY [facility] [place] Last Admin: 10/31/17 10:59 Dose: 100 mls/hr Isosorbide Mononitrate (Imdur -) 60 mg PO DAILY [facility] [place] Last Admin: 10/31/17 10:59 Dose: 60 mg Metoprolol Succinate (Toprol Xl -) 50 mg PO DAILY [facility] [place] Last Admin: 10/31/17 11:01 Dose: 50 mg Metronidazole (Flagyl -) 250 mg PO TID [facility] [place] Last Admin: 10/31/17 06:45 Dose: 250 mg Nystatin (Mycostatin Ointment -) 1 applic TP BID [facility] [place] Last Admin: 10/31/17 11:00 Dose: 1 applic Pancrelipase (Creon Dr 36,000 Units Capsule) 1 cap PO TIDCM [facility] [place] Last Admin: 10/31/17 12:08 Dose: 1 cap Pantoprazole Sodium (Protonix -) 40 mg PO DAILY [facility] [place] Last Admin: 10/31/17 11:00 Dose: 40 mg Sitagliptin Phosphate (Januvia -) 100 mg PO DAILY@0700 [facility] [place] Last Admin: 10/31/17 06:45 Dose: 100 mg Tamsulosin HCl (Flomax -) 0.4 mg PO DAILY@0830 [facility] [place] Last Admin: 10/31/17 09:01 Dose: 0.4 mg Zinc Oxide/Panthenol/Vitamin E (Balmex Cream -) 1 applic TP DAILY PRN PRN Reason: APPLY TO RECTUM Last Admin: 10/31/17 11:00 Dose: 1 applic A/P Pneumonia Pulmonary HTN Mitral Regurgitation Chronic Hypoxic Respiratory Failure DM CAD - continue antibiotics - f/u cultures - send urinary antigens - monitor fever curve, WBC trend - O2 to keep SpO2 >90% - replete lytes, ordered labs for today - inhaled bronchodilators - continue cardiac meds - DVT prophylaxis Problem List - Problems (1) Pneumonia Code(s): J18.9 - PNEUMONIA, UNSPECIFIED ORGANISM (2) Diabetes Code(s): E11.9 - TYPE 2 DIABETES MELLITUS WITHOUT COMPLICATIONS (3) HLD (hyperlipidemia) Code(s): E78.5 - HYPERLIPIDEMIA, UNSPECIFIED (4) Hypertension Code(s): I10 - ESSENTIAL (PRIMARY) HYPERTENSION (5) Pulmonary HTN Code(s): I27.2 - OTHER SECONDARY PULMONARY HYPERTENSION * DO NOT USE *
[2017-10-31 13:07] LABS: BASO # 0.1 # (0.1-1); BASO % 0.8 % (0-2.0); EOS # 0.1 # (0-4.5); EOS % 0.8 % (0-4.5); LYMPH # 0.6 (8-40); MCH 32.1 pg (25.7-33.7); MCHC 30.9 g/dl (32.0-35.9); MEAN PLT VOLUME 8.6 fl (7.5-11.1); MONO # 0.6 # (3.8-10.2); NEUT % 87.9 % (42.8-82.8); PLATELET COUNT 227 K/MM3 (134-434); RDW 13.9 % (11.9-15.9); WHITE BLOOD COUNT 11.4 K/mm3 (4.0-10.0)
--- NOTE | 2017-10-31 13:25 | PN ---
Progress Note, Physician Chief Complaint: Pt A&Ox3; OOB in chair; frequent gastric discomfort and eructation; dyspneic on mild exertion; frustrated that he has no many medical problems. History of Present Illness: 76-year-old man with PMHx of hypertension, hyperlipidemia, diabetes type II, CAD with prior stents, chronic combined systolic and diastolic heart failure, pulmonary hypertension, paroxysmal SVT, chronic shortness of breath, COPD, pulmonary hypertension, sent from Dr. Friemdan office for PNA. Pt seen and examined in the ER in nad. coughing, mild sob, mild pleuritic chest pain. denies palpitations, no change in chronic sob/anderson. mild LE edema which is chronic, no lightheadedness, dizziness, syncope or near syncope. - Current Medication List Current Medications: Active Medications Albuterol Sulfate (Ventolin 0.083% Nebulizer Soln -) 1 amp NEB Q4H PRN PRN Reason: SHORT OF BREATH/WHEEZING Albuterol/Ipratropium (Duoneb -) 1 amp NEB TIDR [facility] Last Admin: 10/31/17 06:14 Dose: 1 amp Amlodipine Besylate (Norvasc -) 5 mg PO DAILY [facility] Last Admin: 10/31/17 10:59 Dose: 5 mg Aspirin (Ecotrin -) 81 mg PO DAILY [facility] Last Admin: 10/31/17 11:01 Dose: 81 mg Atorvastatin Calcium (Lipitor -) 40 mg PO DAILY [facility] Last Admin: 10/31/17 11:00 Dose: 40 mg Escitalopram Oxalate (Lexapro -) 10 mg PO DAILY [facility] Last Admin: 10/31/17 11:01 Dose: 10 mg Furosemide (Lasix -) 80 mg PO DAILY [facility] Last Admin: 10/31/17 11:00 Dose: 80 mg Heparin Sodium (Porcine) (Heparin -) 5,000 unit SQ BID [facility] Last Admin: 10/31/17 11:01 Dose: 5,000 unit Azithromycin 250 mg/ Dextrose 250 mls @ 250 mls/hr IVPB DAILY [facility] Last Admin: 10/31/17 11:50 Dose: 250 mls/hr CEFTRIAXONE 1 G/50 ML PREMIX (Ceftriaxone 1 Gm-D5w Bag) 50 mls @ 100 mls/hr IVPB DAILY [facility] Last Admin: 10/31/17 10:59 Dose: 100 mls/hr Isosorbide Mononitrate (Imdur -) 60 mg PO DAILY [facility] Last Admin: 10/31/17 10:59 Dose: 60 mg Metoprolol Succinate (Toprol Xl -) 50 mg PO DAILY [facility] Last Admin: 10/31/17 11:01 Dose: 50 mg Metronidazole (Flagyl -) 250 mg PO TID [facility] Last Admin: 10/31/17 13:09 Dose: 250 mg Nystatin (Mycostatin Ointment -) 1 applic TP BID [facility] Last Admin: 10/31/17 11:00 Dose: 1 applic Pancrelipase (Creon Dr 36,000 Units Capsule) 1 cap PO TIDCM [facility] Last Admin: 10/31/17 12:08 Dose: 1 cap Pantoprazole Sodium (Protonix -) 40 mg PO DAILY [facility] Last Admin: 10/31/17 11:00 Dose: 40 mg Sitagliptin Phosphate (Januvia -) 100 mg PO DAILY@0700 [facility] Last Admin: 10/31/17 06:45 Dose: 100 mg Tamsulosin HCl (Flomax -) 0.4 mg PO DAILY@0830 [facility] Last Admin: 10/31/17 09:01 Dose: 0.4 mg Zinc Oxide/Panthenol/Vitamin E (Balmex Cream -) 1 applic TP DAILY PRN PRN Reason: APPLY TO RECTUM Last Admin: 10/31/17 11:00 Dose: 1 applic - Objective Vital Signs: Vital Signs Temperature 98.5 F 10/31/17 10:00 Pulse Rate 89 10/31/17 10:00 Respiratory Rate 18 10/31/17 10:00 Blood Pressure 155/85 10/31/17 10:00 O2 Sat by Pulse Oximetry (%) 96 10/30/17 21:00 Constitutional: Yes: Anxious Eyes: Yes: WNL HENT: Yes: WNL Neck: Yes: WNL Cardiovascular: Yes: WNL, Regular Rate and Rhythm Respiratory: Yes: WNL, Regular, CTA Bilaterally Gastrointestinal: Yes: Soft ...Rectal Exam: Yes: Deferred Genitourinary: No: Anuria Musculoskeletal: Yes: WNL Extremities: Yes: WNL Edema: No Integumentary: Yes: WNL Neurological: Yes: WNL, Alert, Oriented ...Motor Strength: WNL Psychiatric: Yes: WNL Labs: CBC, BMP 10/31/17 12:38 INR, PTT INR 1.38 (0.82-1.09) H 10/28/17 14:00 Problem List - Problems (1) Abdominal bloating Assessment/Plan: f/u with GI Code(s): R14.0 - ABDOMINAL DISTENSION (GASEOUS) (2) Early satiety Code(s): R68.81 - EARLY SATIETY (3) Pneumonia Code(s): J18.9 - PNEUMONIA, UNSPECIFIED ORGANISM (4) Depression Code(s): F32.9 - MAJOR DEPRESSIVE DISORDER, SINGLE EPISODE, UNSPECIFIED (5) Diabetes Code(s): E11.9 - TYPE 2 DIABETES MELLITUS WITHOUT COMPLICATIONS (6) HLD (hyperlipidemia) Assessment/Plan: f/u triglycerides (elevated yesterday nonfasting). Code(s): E78.5 - HYPERLIPIDEMIA, UNSPECIFIED (7) Hypertension Code(s): I10 - ESSENTIAL (PRIMARY) HYPERTENSION (8) PSVT (paroxysmal supraventricular tachycardia) Assessment/Plan: Hx PSVT. Prelminary, partial Holter report notes prolonged (many episodes, some as long as several minutes) of PSVT; frequent APCs, PVCs) Await full reading to help r/o AF. Recommend transfer to telemetry. Increase metoprolol ER to 100 mg daily. Discontinue amlodipine, unless BP difficult to control on present regimen ( metoprolol; Entresto; furosemide). Keep K 4-4.5; Mg 2-2.3; PO4 2.5-3.5. Code(s): I47.1 - SUPRAVENTRICULAR TACHYCARDIA (9) Pulmonary HTN Code(s): I27.2 - OTHER SECONDARY PULMONARY HYPERTENSION * DO NOT USE * (10) Chronic combined systolic and diastolic CHF, NYHA class 4 Assessment/Plan: Continue beta blockers, entresto. Consider spironolactone. F/u BUN/Cr, electrolytes (low potassium repleted); Is and Os, daily weight. Code(s): I50.42 - CHRONIC COMBINED SYSTOLIC AND DIASTOLIC HRT FAIL
[2017-10-31 13:27] LABS: ANION GAP 4 (8-16); CALCIUM 8.8 mg/dL (8.5-10.1); CO2 38 mmol/L (21-32); CREATININE 1.1 mg/dL (0.7-1.3); GLUCOSE,RANDOM 268 mg/dL (74-106); MAGNESIUM 2.1 mg/dL (1.8-2.4); PHOSPHOROUS 2.3 mg/dL (2.5-4.9)
[2017-10-31 14:57] LABS: CHOLESTEROL 105 mg/dL (50-200)
--- NOTE | 2017-10-31 15:14 | PN ---
Physical Exam: Medicine coverage for Dr. Matos SUBJECTIVE: Patient seen and examined. He says his lower abdominal pain makes him feel short of breath. OBJECTIVE: Vital Signs Period Temp Pulse Resp BP Sys/[place] Pulse Ox Last 24 Hr 97.9 F-98.5 F 82-99 18-20 119-155/46-85 96 PE Neuro: alert, awake, cn 2-12intact Pulm: distant, diminished CV: s1 s2 rrr no mrg Abd: diffuse lower abdominal tenderness, refers upwards Ext: Warm, no le edema Laboratory Results - last 24 hr 10/30/17 10/31/17 10/31/17 17:28 06:49 12:38 WBC RBC Hgb Hct MCV MCH MCHC RDW Plt Count MPV Neutrophils % Lymphocytes % Monocytes % Eosinophils % Basophils % Sodium 141 Potassium 3.9 D Chloride 99 Carbon Dioxide 38 H Anion Gap 4 L BUN 27 H D Creatinine 1.1 POC Glucometer 289 247 Random Glucose 268 H Calcium 8.8 Phosphorus 2.3 L Magnesium 2.1 D Triglycerides Cholesterol Total LDL Cholesterol HDL Cholesterol 10/31/17 10/31/17 12:38 14:03 WBC 11.4 H D RBC 3.47 L Hgb 11.2 L Hct 36.1 MCV 104.0 H MCH 32.1 MCHC 30.9 L RDW 13.9 Plt Count 227 MPV 8.6 Neutrophils % 87.9 H Lymphocytes % 5.0 L Monocytes % 5.5 Eosinophils % 0.8 D Basophils % 0.8 Sodium Potassium Chloride Carbon Dioxide Anion Gap BUN Creatinine POC Glucometer Random Glucose Calcium Phosphorus Magnesium Triglycerides Cancelled Cholesterol Cancelled Total LDL Cholesterol Cancelled HDL Cholesterol Cancelled Active Medications Generic Name Dose Route Start Last Admin Trade Name Nehemias PRN Reason Stop Dose Admin Albuterol Sulfate 1 amp 10/29/17 15:15 Ventolin 0.083% Nebulizer Soln - NEB Q4H PRN SHORT OF BREATH/WHEEZING Albuterol/Ipratropium 1 amp 10/29/17 22:00 10/31/17 14:15 Duoneb - NEB 1 amp TIDR [facility] Administration Amlodipine Besylate 5 mg 10/29/17 10:00 10/31/17 10:59 Norvasc - PO 5 mg DAILY [facility] Administration Aspirin 81 mg 10/30/17 18:00 10/31/17 11:01 Ecotrin - PO 81 mg DAILY [facility] Administration Atorvastatin Calcium 40 mg 10/29/17 10:00 10/31/17 11:00 Lipitor - PO 40 mg DAILY [facility] Administration Escitalopram Oxalate 10 mg 10/29/17 10:00 10/31/17 11:01 Lexapro - PO 10 mg DAILY [facility] Administration Furosemide 80 mg 10/29/17 10:00 10/31/17 11:00 Lasix - PO 80 mg DAILY [facility] Administration Heparin Sodium (Porcine) 5,000 unit 10/29/17 10:00 10/31/17 11:01 Heparin - SQ 5,000 unit BID [facility] Administration Azithromycin 250 mg/ Dextrose 250 mls @ 250 mls/hr 10/29/17 10:00 10/31/17 11 :50 IVPB 250 mls/hr DAILY [facility] Administration CEFTRIAXONE 1 G/50 ML PREMIX 50 mls @ 100 mls/hr 10/29/17 10:00 10/31/17 10: 59 Ceftriaxone 1 Gm-D5w Bag IVPB 100 mls/hr DAILY [facility] Administration Isosorbide Mononitrate 60 mg 10/29/17 10:00 10/31/17 10:59 Imdur - PO 60 mg DAILY [facility] Administration Metoprolol Succinate 50 mg 10/29/17 10:00 10/31/17 11:01 Toprol Xl - PO 50 mg DAILY [facility] Administration Metronidazole 250 mg 10/30/17 22:00 10/31/17 13:09 Flagyl - PO 250 mg TID [facility] Administration Nystatin 1 applic 10/30/17 13:30 10/31/17 11:00 Mycostatin Ointment - TP 1 applic BID [facility] Administration Pancrelipase 1 cap 10/30/17 17:30 10/31/17 12:08 Figueroa Browning 36,000 Units Capsule PO 1 cap TIDCM [facility] Administration Pantoprazole Sodium 40 mg 10/30/17 12:45 10/31/17 11:00 Protonix - PO 40 mg DAILY [facility] Administration Sitagliptin Phosphate 100 mg 10/29/17 07:00 10/31/17 06:45 Januvia - PO 100 mg DAILY@0700 [facility] Administration Tamsulosin HCl 0.4 mg 10/31/17 08:30 10/31/17 09:01 Flomax - PO 0.4 mg DAILY@0830 [facility] Administration Zinc Oxide/Panthenol/Vitamin E 1 applic 10/30/17 16:32 10/31/17 11:00 Balmex Cream - TP 1 applic DAILY PRN Administration APPLY TO RECTUM Assessment: 76 year old male with PMHx of hypertension, hyperlipidemia, DM II, CAD with prior stents, chronic combined systolic and diastolic heart failure, pulmonary hypertension, paroxysmal SVT, chronic shortness of breath, COPD, pulmonary hypertension admitted from PCP for PNA. Plan: 1. PNA - Leukocytosis improving - Continue ceftriaxone/azithro - Nebs prn 2. Abdominal bloating - Continue flagyl 250mg TID r/o small bowel bacterial overgrowth - Pancrelipase TID 3. CAD w/ stents - Lipitor, ASA 4. Systolic, Diastolic CHF - Entresto - Imdur 60mg qday - Toprolxl 50mg daily - Lasix 80mg daily 5. Early satiety - Continued dyspepsia - Continue regular 5mg AC - Protonix daily 6. DM II - Continue PO antidiabetics 7. HTN - Norvasc 5mg daily 8. DVT ppx - Increase Heparin TID 9. Hypophosphatemia - Replete w/ k phos Visit type - Emergency Visit Emergency Visit: Yes ED Registration Date: 10/28/17 Care time: The patient presented to the Emergency Department on the above date and was hospitalized for further evaluation of their emergent condition. - New Patient This patient is new to me today: Yes Date on this admission: 10/31/17 - Critical Care Critical Care patient: No
[2017-10-31] MEDS ORDERED: NAPH,MB-DB/K PH,MBDB POWDER PACKET PO ONE (15:28)
--- NOTE | 2017-10-31 15:44 | PN ---
Progress Note, Physician History of Present Illness: Pt seen and examined. Events, lab and radiology results noted. He is feeling the same as yesterday, still with blood-tinged sputum. Currently afebrile. No other specific complaints. - Current Medication List Current Medications: Active Medications Albuterol Sulfate (Ventolin 0.083% Nebulizer Soln -) 1 amp NEB Q4H PRN PRN Reason: SHORT OF BREATH/WHEEZING Albuterol/Ipratropium (Duoneb -) 1 amp NEB TIDR [facility] Last Admin: 10/31/17 14:15 Dose: 1 amp Amlodipine Besylate (Norvasc -) 5 mg PO DAILY [facility] Last Admin: 10/31/17 10:59 Dose: 5 mg Aspirin (Ecotrin -) 81 mg PO DAILY [facility] Last Admin: 10/31/17 11:01 Dose: 81 mg Atorvastatin Calcium (Lipitor -) 40 mg PO DAILY [facility] Last Admin: 10/31/17 11:00 Dose: 40 mg Escitalopram Oxalate (Lexapro -) 10 mg PO DAILY [facility] Last Admin: 10/31/17 11:01 Dose: 10 mg Furosemide (Lasix -) 80 mg PO DAILY [facility] Last Admin: 10/31/17 11:00 Dose: 80 mg Heparin Sodium (Porcine) (Heparin -) 5,000 unit SQ TID [facility] Azithromycin 250 mg/ Dextrose 250 mls @ 250 mls/hr IVPB DAILY [facility] Last Admin: 10/31/17 11:50 Dose: 250 mls/hr CEFTRIAXONE 1 G/50 ML PREMIX (Ceftriaxone 1 Gm-D5w Bag) 50 mls @ 100 mls/hr IVPB DAILY [facility] Last Admin: 10/31/17 10:59 Dose: 100 mls/hr Isosorbide Mononitrate (Imdur -) 60 mg PO DAILY [facility] Last Admin: 10/31/17 10:59 Dose: 60 mg Metoprolol Succinate (Toprol Xl -) 50 mg PO DAILY [facility] Last Admin: 10/31/17 11:01 Dose: 50 mg Metronidazole (Flagyl -) 250 mg PO TID [facility] Last Admin: 10/31/17 13:09 Dose: 250 mg Nystatin (Mycostatin Ointment -) 1 applic TP BID [facility] Last Admin: 10/31/17 11:00 Dose: 1 applic Pancrelipase (Creon Dr 36,000 Units Capsule) 1 cap PO TIDCM [facility] Last Admin: 10/31/17 12:08 Dose: 1 cap Pantoprazole Sodium (Protonix -) 40 mg PO DAILY [facility] Last Admin: 10/31/17 11:00 Dose: 40 mg Potassium Phos/Sodium Phos (Phos-Nak Packet -) 2 packet PO ONCE ONE Stop: 10/31/17 15:29 Sitagliptin Phosphate (Januvia -) 100 mg PO DAILY@0700 [facility] Last Admin: 10/31/17 06:45 Dose: 100 mg Tamsulosin HCl (Flomax -) 0.4 mg PO DAILY@0830 [facility] Last Admin: 10/31/17 09:01 Dose: 0.4 mg Zinc Oxide/Panthenol/Vitamin E (Balmex Cream -) 1 applic TP DAILY PRN PRN Reason: APPLY TO RECTUM Last Admin: 10/31/17 11:00 Dose: 1 applic - Objective Vital Signs: Vital Signs Temperature 98.6 F 10/31/17 15:23 Pulse Rate 86 10/31/17 15:23 Respiratory Rate 18 10/31/17 10:00 Blood Pressure 155/85 10/31/17 10:00 O2 Sat by Pulse Oximetry (%) 96 10/30/17 21:00 Constitutional: Yes: No Distress, Calm Cardiovascular: Yes: Regular Rate and Rhythm Respiratory: Yes: CTA Bilaterally Gastrointestinal: Yes: Normal Bowel Sounds, Soft, Other (mild lower abd tenderness) Genitourinary: Yes: WNL Extremities: Yes: WNL Integumentary: Yes: WNL Neurological: Yes: Alert, Oriented Labs: CBC, BMP 10/31/17 12:38 10/31/17 12:38 INR, PTT INR 1.38 (0.82-1.09) H 10/28/17 14:00 Microbiology 10/28/17 13:45 Blood - Peripheral Venous Blood Culture - Preliminary NO GROWTH OBTAINED AFTER 72 HOURS, INCUBATION TO CONTINUE FOR 2 DAYS. 10/28/17 13:45 Blood - Peripheral Venous Blood Culture - Preliminary NO GROWTH OBTAINED AFTER 72 HOURS, INCUBATION TO CONTINUE FOR 2 DAYS. 10/28/17 13:25 Urine - Urine Clean Catch Urine Culture - Final NO GROWTH OBTAINED 10/29/17 19:15 Urine For Antigen Detection Legionella Antigen - Final 10/29/17 19:15 Urine For Antigen Detection Streptococcus pneumoniae Antigen (M - Final - ....Imaging Chest X-ray: Report Reviewed Problem List - Problems (1) Chronic combined systolic and diastolic CHF, NYHA class 4 Code(s): I50.42 - CHRONIC COMBINED SYSTOLIC AND DIASTOLIC HRT FAIL (2) Pneumonia Code(s): J18.9 - PNEUMONIA, UNSPECIFIED ORGANISM (3) Abdominal discomfort Code(s): R10.9 - UNSPECIFIED ABDOMINAL PAIN (4) BPH (benign prostatic hyperplasia) Code(s): N40.0 - BENIGN PROSTATIC HYPERPLASIA WITHOUT LOWER URINRY TRACT SYMP (5) CHF (congestive heart failure) Code(s): I50.9 - HEART FAILURE, UNSPECIFIED (6) Diabetes Code(s): E11.9 - TYPE 2 DIABETES MELLITUS WITHOUT COMPLICATIONS (7) HLD (hyperlipidemia) Code(s): E78.5 - HYPERLIPIDEMIA, UNSPECIFIED (8) Hypertension Code(s): I10 - ESSENTIAL (PRIMARY) HYPERTENSION (9) Pulmonary HTN Code(s): I27.2 - OTHER SECONDARY PULMONARY HYPERTENSION * DO NOT USE * Assessment/Plan 76 y.o. male presenting with c/o productive cough x 3 wks admitted with leukocytosis, now with blood-tinged sputum -- cont current antibiotics -- suggest CT chest continue monitor
[2017-10-31] MEDS ORDERED: METOPROLOL SUCCINATE 50 MG TAB.SR.24H (FP) PO ONE (16:35)
[2017-10-31] MEDS: ALBUTEROL SO4 0.083% IH SOL 2.5 MG/3 ML VIAL.NEB. NEB PRN (20:12)
[2017-11-01] MEDS: HEPARIN NA (PORCINE) 5,000 UNITS/ML 1ML VIAL SQ SCH ×3 (06:15→22:27)
[2017-11-01] MEDS: SACUBITRIL/VALSARTAN 24 MG-26 MG TABLET PO SCH ×2 (06:16→17:38)
[2017-11-01] MEDS: metroNIDAZOLE 250 MG TABLET PO SCH ×3 (06:16→22:27)
[2017-11-01] MEDS: sitaGLIPtin PHOSPHATE 100 MG TABLET (FP) PO SCH (06:16)
[2017-11-01] MEDS: ALBUTEROL SO4 2.5/IPRATROPIUM 0.5 INH SOL 3 ML VIAL.NEB. NEB SCH ×3 (06:25→22:02)
--- NOTE | 2017-11-01 07:45 | PN ---
Progress Note, Physician - Current Medication List Current Medications: Active Medications Albuterol Sulfate (Ventolin 0.083% Nebulizer Soln -) 1 amp NEB Q4H PRN PRN Reason: SHORT OF BREATH/WHEEZING Last Admin: 10/31/17 20:12 Dose: 1 amp Albuterol/Ipratropium (Duoneb -) 1 amp NEB TIDR [facility] Last Admin: 11/01/17 06:25 Dose: 1 amp Aspirin (Ecotrin -) 81 mg PO DAILY [facility] Last Admin: 10/31/17 11:01 Dose: 81 mg Atorvastatin Calcium (Lipitor -) 40 mg PO DAILY [facility] Last Admin: 10/31/17 11:00 Dose: 40 mg Escitalopram Oxalate (Lexapro -) 10 mg PO DAILY [facility] Last Admin: 10/31/17 11:01 Dose: 10 mg Furosemide (Lasix -) 80 mg PO DAILY [facility] Last Admin: 10/31/17 11:00 Dose: 80 mg Heparin Sodium (Porcine) (Heparin -) 5,000 unit SQ TID [facility] Last Admin: 11/01/17 06:15 Dose: 5,000 unit Azithromycin 250 mg/ Dextrose 250 mls @ 250 mls/hr IVPB DAILY [facility] Last Admin: 10/31/17 11:50 Dose: 250 mls/hr CEFTRIAXONE 1 G/50 ML PREMIX (Ceftriaxone 1 Gm-D5w Bag) 50 mls @ 100 mls/hr IVPB DAILY [facility] Last Admin: 10/31/17 10:59 Dose: 100 mls/hr Isosorbide Mononitrate (Imdur -) 60 mg PO DAILY [facility] Last Admin: 10/31/17 10:59 Dose: 60 mg Metoprolol Succinate (Toprol Xl -) 100 mg PO DAILY [facility] Metronidazole (Flagyl -) 250 mg PO TID [facility] Last Admin: 11/01/17 06:16 Dose: 250 mg Nystatin (Mycostatin Ointment -) 1 applic TP BID [facility] Last Admin: 10/31/17 23:14 Dose: 1 applic Pancrelipase (Creon Dr 36,000 Units Capsule) 1 cap PO TIDCM [facility] Last Admin: 10/31/17 17:29 Dose: 1 cap Pantoprazole Sodium (Protonix -) 40 mg PO DAILY [facility] Last Admin: 10/31/17 11:00 Dose: 40 mg Sitagliptin Phosphate (Januvia -) 100 mg PO DAILY@0700 [facility] Last Admin: 11/01/17 06:16 Dose: 100 mg Tamsulosin HCl (Flomax -) 0.4 mg PO DAILY@0830 [facility] Last Admin: 10/31/17 09:01 Dose: 0.4 mg Zinc Oxide/Panthenol/Vitamin E (Balmex Cream -) 1 applic TP DAILY PRN PRN Reason: APPLY TO RECTUM Last Admin: 10/31/17 11:00 Dose: 1 applic - Objective Vital Signs: Vital Signs Temperature 98.5 F 11/01/17 02:48 Pulse Rate 83 11/01/17 05:45 Respiratory Rate 20 11/01/17 05:45 Blood Pressure 129/78 11/01/17 05:45 O2 Sat by Pulse Oximetry (%) 95 10/31/17 21:00 Labs: CBC, BMP 10/31/17 12:38 10/31/17 12:38 INR, PTT INR 1.38 (0.82-1.09) H 10/28/17 14:00 Problem List - Problems (1) Abdominal bloating Code(s): R14.0 - ABDOMINAL DISTENSION (GASEOUS) (2) Chronic combined systolic and diastolic CHF, NYHA class 4 Code(s): I50.42 - CHRONIC COMBINED SYSTOLIC AND DIASTOLIC HRT FAIL (3) BPH (benign prostatic hyperplasia) Code(s): N40.0 - BENIGN PROSTATIC HYPERPLASIA WITHOUT LOWER URINRY TRACT SYMP (4) CHF (congestive heart failure) Code(s): I50.9 - HEART FAILURE, UNSPECIFIED (5) Depression Code(s): F32.9 - MAJOR DEPRESSIVE DISORDER, SINGLE EPISODE, UNSPECIFIED (6) HLD (hyperlipidemia) Code(s): E78.5 - HYPERLIPIDEMIA, UNSPECIFIED (7) Hypertension Code(s): I10 - ESSENTIAL (PRIMARY) HYPERTENSION (8) Morbid obesity Code(s): E66.01 - MORBID (SEVERE) OBESITY DUE TO EXCESS CALORIES Assessment/Plan Assessment: 76 year old male with PMHx of hypertension, hyperlipidemia, DM II, CAD with prior stents, chronic combined systolic and diastolic heart failure, pulmonary hypertension, paroxysmal SVT, chronic shortness of breath, COPD, pulmonary hypertension admitted from PCP for PNA. Plan: 1. Pneumonia - Leukocytosis improving - Continue ceftriaxone/azithro - Nebs as needed 2. Abdominal bloating - Continue flagyl 250mg TID r/o small bowel bacterial overgrowth - Pancrelipase TID 3. CAD w/ stents - Lipitor, ASA 4. Systolic, Diastolic CHF - sacubartil/valsartan - Imdur 60mg qday - Toprolxl 50mg daily - furosemide 80mg daily 5. Early satiety - Continued dyspepsia - Continue regular 5mg AC - Pantaprezole daily 6. DM II - Continue PO antidiabetics 7. HTN - amlodipine 5mg daily 8. DVT ppx - Increase Heparin TID 9. Hypophosphatemia - Replete w/ k phos
[2017-11-01 08:01] LABS: BASO % 0.4 % (0-2.0); EOS # 0.2 # (0-4.5); EOS % 1.8 % (0-4.5); LYMPH # 0.7 (8-40); MCH 33.1 pg (25.7-33.7); MCHC 32.1 g/dl (32.0-35.9); MEAN CELL VOLUME 103.3 fl (80-96); MEAN PLT VOLUME 8.7 fl (7.5-11.1); MONO # 0.8 # (3.8-10.2); NEUT # 7.9 # (42.8-82.8); NEUT % 82.2 % (42.8-82.8); PLATELET COUNT 203 K/MM3 (134-434); WHITE BLOOD COUNT 9.6 K/mm3 (4.0-10.0)
[2017-11-01] MEDS ORDERED: PT OWN MED DRAWER 7, Y5N ONE (08:10)
[2017-11-01] MEDS: LIPASE/PROTEASE/AMYLASE 36,000 UNIT CAPSULE PO SCH ×3 (08:19→17:38)
[2017-11-01] MEDS: TAMSULOSIN HCL 0.4 MG CAP.ER.24H (FP) PO SCH (08:19)
[2017-11-01 08:38] LABS: ALBUMIN 3.2 g/dl (3.4-5.0); ANION GAP 8 (8-16); CALCIUM 8.7 mg/dL (8.5-10.1); CO2 36 mmol/L (21-32); GLUCOSE,RANDOM 259 mg/dL (74-106); MAGNESIUM 1.9 mg/dL (1.8-2.4)
[2017-11-01 08:42] LABS: ALK PHOS 114 U/L (45-117); BILIRUBIN,TOTAL 0.6 mg/dL (0.2-1.0); CREATININE 0.9 mg/dL (0.7-1.3); PHOSPHOROUS 2.6 mg/dL (2.5-4.9); SGOT/AST 11 U/L (15-37); SGPT/ALT 23 U/L (12-78); TOT PROT 6.1 g/dl (6.4-8.2)
--- NOTE | 2017-11-01 09:24 | PN ---
Progress Note, Physician History of Present Illness: PULMONARY ALERT,FEELING BETTER,LESS COUGH, + BLOODY SPUTUM LESS QUANTITY - Current Medication List Current Medications: Active Medications Albuterol Sulfate (Ventolin 0.083% Nebulizer Soln -) 1 amp NEB Q4H PRN PRN Reason: SHORT OF BREATH/WHEEZING Last Admin: 10/31/17 20:12 Dose: 1 amp Albuterol/Ipratropium (Duoneb -) 1 amp NEB TIDR [facility] Last Admin: 11/01/17 06:25 Dose: 1 amp Aspirin (Ecotrin -) 81 mg PO DAILY [facility] Last Admin: 10/31/17 11:01 Dose: 81 mg Atorvastatin Calcium (Lipitor -) 40 mg PO DAILY [facility] Last Admin: 10/31/17 11:00 Dose: 40 mg Escitalopram Oxalate (Lexapro -) 10 mg PO DAILY [facility] Last Admin: 10/31/17 11:01 Dose: 10 mg Furosemide (Lasix -) 80 mg PO DAILY [facility] Last Admin: 10/31/17 11:00 Dose: 80 mg Heparin Sodium (Porcine) (Heparin -) 5,000 unit SQ TID [facility] Last Admin: 11/01/17 06:15 Dose: 5,000 unit Azithromycin 250 mg/ Dextrose 250 mls @ 250 mls/hr IVPB DAILY [facility] Last Admin: 10/31/17 11:50 Dose: 250 mls/hr CEFTRIAXONE 1 G/50 ML PREMIX (Ceftriaxone 1 Gm-D5w Bag) 50 mls @ 100 mls/hr IVPB DAILY [facility] Last Admin: 10/31/17 10:59 Dose: 100 mls/hr Isosorbide Mononitrate (Imdur -) 60 mg PO DAILY [facility] Last Admin: 10/31/17 10:59 Dose: 60 mg Metoprolol Succinate (Toprol Xl -) 100 mg PO DAILY [facility] Metronidazole (Flagyl -) 250 mg PO TID [facility] Last Admin: 11/01/17 06:16 Dose: 250 mg Nystatin (Mycostatin Ointment -) 1 applic TP BID [facility] Last Admin: 10/31/17 23:14 Dose: 1 applic Pancrelipase (Creon Dr 36,000 Units Capsule) 1 cap PO TIDCM [facility] Last Admin: 11/01/17 08:19 Dose: 1 cap Pantoprazole Sodium (Protonix -) 40 mg PO DAILY [facility] Last Admin: 10/31/17 11:00 Dose: 40 mg Sitagliptin Phosphate (Januvia -) 100 mg PO DAILY@0700 [facility] Last Admin: 11/01/17 06:16 Dose: 100 mg Tamsulosin HCl (Flomax -) 0.4 mg PO DAILY@0830 [facility] Last Admin: 11/01/17 08:19 Dose: 0.4 mg Zinc Oxide/Panthenol/Vitamin E (Balmex Cream -) 1 applic TP DAILY PRN PRN Reason: APPLY TO RECTUM Last Admin: 10/31/17 11:00 Dose: 1 applic - Objective Vital Signs: Vital Signs Temperature 98.5 F 11/01/17 02:48 Pulse Rate 83 11/01/17 05:45 Respiratory Rate 20 11/01/17 05:45 Blood Pressure 129/78 11/01/17 05:45 O2 Sat by Pulse Oximetry (%) 95 10/31/17 21:00 Constitutional: Yes: Well Nourished, Calm Eyes: Yes: WNL HENT: Yes: WNL Neck: Yes: WNL Cardiovascular: Yes: Regular Rate and Rhythm, S1, S2 Respiratory: Yes: Rales (RALE AND CRACKLESLEFT FEW RHONCHI), Rhonchi Gastrointestinal: Yes: Normal Bowel Sounds, Soft Extremities: Yes: WNL Edema: No Labs: CBC, BMP 11/01/17 06:38 11/01/17 06:38 INR, PTT INR 1.38 (0.82-1.09) H 10/28/17 14:00 Assessment/Plan A/P Pneumonia Pulmonary HTN Mitral Regurgitation Chronic Hypoxic Respiratory Failure DM CAD - antibiotics - monitor fever curve, WBC trend - O2 to keep SpO2 >90% - inhaled bronchodilators - continue cardiac meds - DVT prophylaxis - Chest ct Problem List - Problems (1) Pneumonia Code(s): J18.9 - PNEUMONIA, UNSPECIFIED ORGANISM (2) Diabetes Code(s): E11.9 - TYPE 2 DIABETES MELLITUS WITHOUT COMPLICATIONS (3) HLD (hyperlipidemia) Code(s): E78.5 - HYPERLIPIDEMIA, UNSPECIFIED (4) Hypertension Code(s): I10 - ESSENTIAL (PRIMARY) HYPERTENSION (5) Pulmonary HTN Code(s): I27.2 - OTHER SECONDARY PULMONARY HYPERTENSION * DO NOT USE *
[2017-11-01] MEDS: ALBUTEROL SO4 0.083% IH SOL 2.5 MG/3 ML VIAL.NEB. NEB PRN (10:00)
--- NOTE | 2017-11-01 10:32 | PN ---
Progress Note, Physician Chief Complaint: Pt A&Ox3; OOB in chair; still with frequent gastric discomfort and eructatiion; no palpitations, dizziness, or chest pain. 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 Friedman office for PNA. Pt seen and examined in the ER in nad. coughing, mild sob, mild pleuritic chest pain. denies palpitations, no change in chronic sob/anderson. mild LE edema which is chronic, no lightheadedness, dizziness, syncope or near syncope. - Current Medication List Current Medications: Active Medications Albuterol Sulfate (Ventolin 0.083% Nebulizer Soln -) 1 amp NEB Q4H PRN PRN Reason: SHORT OF BREATH/WHEEZING Last Admin: 10/31/17 20:12 Dose: 1 amp Albuterol/Ipratropium (Duoneb -) 1 amp NEB TIDR [facility] Last Admin: 11/01/17 06:25 Dose: 1 amp Aspirin (Ecotrin -) 81 mg PO DAILY [facility] Last Admin: 10/31/17 11:01 Dose: 81 mg Atorvastatin Calcium (Lipitor -) 40 mg PO DAILY [facility] Last Admin: 10/31/17 11:00 Dose: 40 mg Escitalopram Oxalate (Lexapro -) 10 mg PO DAILY [facility] Last Admin: 10/31/17 11:01 Dose: 10 mg Furosemide (Lasix -) 80 mg PO DAILY [facility] Last Admin: 10/31/17 11:00 Dose: 80 mg Heparin Sodium (Porcine) (Heparin -) 5,000 unit SQ TID [facility] Last Admin: 11/01/17 06:15 Dose: 5,000 unit Azithromycin 250 mg/ Dextrose 250 mls @ 250 mls/hr IVPB DAILY [facility] Last Admin: 10/31/17 11:50 Dose: 250 mls/hr CEFTRIAXONE 1 G/50 ML PREMIX (Ceftriaxone 1 Gm-D5w Bag) 50 mls @ 100 mls/hr IVPB DAILY [facility] Last Admin: 10/31/17 10:59 Dose: 100 mls/hr Isosorbide Mononitrate (Imdur -) 60 mg PO DAILY [facility] Last Admin: 10/31/17 10:59 Dose: 60 mg Metoprolol Succinate (Toprol Xl -) 100 mg PO DAILY [facility] Metronidazole (Flagyl -) 250 mg PO TID [facility] Last Admin: 11/01/17 06:16 Dose: 250 mg Nystatin (Mycostatin Ointment -) 1 applic TP BID [facility] Last Admin: 10/31/17 23:14 Dose: 1 applic Pancrelipase (Creon Dr 36,000 Units Capsule) 1 cap PO TIDCM [facility] Last Admin: 11/01/17 08:19 Dose: 1 cap Pantoprazole Sodium (Protonix -) 40 mg PO DAILY [facility] Last Admin: 10/31/17 11:00 Dose: 40 mg Sitagliptin Phosphate (Januvia -) 100 mg PO DAILY@0700 [facility] Last Admin: 11/01/17 06:16 Dose: 100 mg Tamsulosin HCl (Flomax -) 0.4 mg PO DAILY@0830 [facility] Last Admin: 11/01/17 08:19 Dose: 0.4 mg Zinc Oxide/Panthenol/Vitamin E (Balmex Cream -) 1 applic TP DAILY PRN PRN Reason: APPLY TO RECTUM Last Admin: 10/31/17 11:00 Dose: 1 applic - Objective Vital Signs: Vital Signs Temperature 98.5 F 11/01/17 02:48 Pulse Rate 83 11/01/17 05:45 Respiratory Rate 20 11/01/17 05:45 Blood Pressure 129/78 11/01/17 05:45 O2 Sat by Pulse Oximetry (%) 95 10/31/17 21:00 Constitutional: Yes: Calm Eyes: Yes: WNL HENT: Yes: WNL Neck: Yes: WNL Cardiovascular: Yes: Pulse Irregular, S1, S2 (split) Respiratory: Yes: Diminished Gastrointestinal: Yes: Soft ...Rectal Exam: Yes: Deferred Genitourinary: No: Anuria Breast(s): Yes: WNL Musculoskeletal: Yes: Joint Stiffness Extremities: Yes: Cool Edema: Yes Edema: LLE: Trace, RLE: Trace Peripheral Pulses WNL: Yes Integumentary: Yes: WNL Neurological: Yes: Alert, Weakness Psychiatric: Yes: WNL Labs: CBC, BMP 11/01/17 06:38 11/01/17 06:38 INR, PTT INR 1.38 (0.82-1.09) H 10/28/17 14:00 Abnormal Lab Results 11/01/17 11/01/17 06:38 06:38 RBC 3.22 L Hgb 10.7 L Hct 33.2 L MCV 103.3 H Lymphocytes % 7.5 L D Carbon Dioxide 36 H BUN 19 H D Random Glucose 259 H AST 11 L Total Protein 6.1 L Albumin 3.2 L Triglycerides 179 H D - ....Imaging Other: Image Reviewed (telemetry: NSR; brief periods of wide-complex tachycardia.) Problem List - Problems (1) Abdominal bloating Assessment/Plan: f/u with GI Code(s): R14.0 - ABDOMINAL DISTENSION (GASEOUS) (2) Early satiety Code(s): R68.81 - EARLY SATIETY (3) Pneumonia Assessment/Plan: on antibiotics. Blood-tinged sputum. Code(s): J18.9 - PNEUMONIA, UNSPECIFIED ORGANISM (4) Depression Code(s): F32.9 - MAJOR DEPRESSIVE DISORDER, SINGLE EPISODE, UNSPECIFIED (5) Diabetes Code(s): E11.9 - TYPE 2 DIABETES MELLITUS WITHOUT COMPLICATIONS (6) HLD (hyperlipidemia) Assessment/Plan: Fasting triglycerides mildly elevated; change diet, increase exercise. Code(s): E78.5 - HYPERLIPIDEMIA, UNSPECIFIED (7) Hypertension Code(s): I10 - ESSENTIAL (PRIMARY) HYPERTENSION (8) PSVT (paroxysmal supraventricular tachycardia) Assessment/Plan: Holter monitor: NSR; frequent periods of wide-complex tachycardia (pt has resting bifascicular block, both RBBB and LAFB), to >200 bpm; cannot entirely r/ o AF or NSVT, though patterns likelier wide-complex PSVT and PAT. HR better-controlled on increased metoprolol (no prolonged arrhythmias noted on telemetry). Will continue metoprolol; and consider start IV heparin when pt has no contraindications (blood-tinged sputum and anemia presently). Code(s): I47.1 - SUPRAVENTRICULAR TACHYCARDIA (9) Pulmonary HTN Code(s): I27.2 - OTHER SECONDARY PULMONARY HYPERTENSION * DO NOT USE * (10) Chronic combined systolic and diastolic CHF, NYHA class 4 Assessment/Plan: Continue beta blockers, entresto. Consider spironolactone. F/u BUN/Cr, electrolytes (low potassium repleted); Is and Os, daily weight. Code(s): I50.42 - CHRONIC COMBINED SYSTOLIC AND DIASTOLIC HRT FAIL
[2017-11-01] MEDS: FUROSEMIDE 40 MG TABLET (FP) PO SCH (10:48)
[2017-11-01] MEDS: METOPROLOL SUCCINATE 100 MG TAB.SR.24H (FP) PO SCH (10:48)
[2017-11-01] MEDS: ATORVASTATIN CA 40 MG TABLET (FP) PO SCH (10:48)
[2017-11-01] MEDS: ASPIRIN COATED 81 MG TABLET.EC PO SCH (10:48)
[2017-11-01] MEDS: ISOSORBIDE MONONITRATE 60 MG TAB.SR.24H (FP) PO SCH (10:48)
[2017-11-01] MEDS: PANTOPRAZOLE 40 MG TABLET (FP) PO SCH (10:48)
[2017-11-01] MEDS: ESCITALOPRAM OXALATE 10 MG TABLET (FP) PO SCH (10:48)
[2017-11-01] MEDS: NYSTATIN 100000 UNIT/GM TOPICAL OINTMENT 15 GM TUBE TP SCH ×2 (10:49→22:29)
[2017-11-01] MEDS: AZITHROMYCIN IVPB 250 MG in DEXTROSE 5%-WATER - 250 ML IVPB SCH (13:24)
[2017-11-01] MEDS: CEFTRIAXONE 1 G/50 ML PREMIX 50 ML IVPB SCH (13:24)
--- NOTE | 2017-11-01 15:03 | PN ---
Progress Note, Physician History of Present Illness: Pt with less cough, still with blood-tinged sputum but less. No acute SOB, remains afebrile. - Current Medication List Current Medications: Active Medications Albuterol Sulfate (Ventolin 0.083% Nebulizer Soln -) 1 amp NEB Q4H PRN PRN Reason: SHORT OF BREATH/WHEEZING Last Admin: 10/31/17 20:12 Dose: 1 amp Albuterol/Ipratropium (Duoneb -) 1 amp NEB TIDR [facility] Last Admin: 11/01/17 06:25 Dose: 1 amp Aspirin (Ecotrin -) 81 mg PO DAILY [facility] Last Admin: 11/01/17 10:48 Dose: 81 mg Atorvastatin Calcium (Lipitor -) 40 mg PO DAILY [facility] Last Admin: 11/01/17 10:48 Dose: 40 mg Escitalopram Oxalate (Lexapro -) 10 mg PO DAILY [facility] Last Admin: 11/01/17 10:48 Dose: 10 mg Furosemide (Lasix -) 80 mg PO DAILY [facility] Last Admin: 11/01/17 10:48 Dose: 80 mg Heparin Sodium (Porcine) (Heparin -) 5,000 unit SQ TID [facility] Last Admin: 11/01/17 13:27 Dose: 5,000 unit Azithromycin 250 mg/ Dextrose 250 mls @ 250 mls/hr IVPB DAILY [facility] Last Admin: 11/01/17 13:24 Dose: 250 mls/hr CEFTRIAXONE 1 G/50 ML PREMIX (Ceftriaxone 1 Gm-D5w Bag) 50 mls @ 100 mls/hr IVPB DAILY [facility] Last Admin: 11/01/17 13:24 Dose: 100 mls/hr Isosorbide Mononitrate (Imdur -) 60 mg PO DAILY [facility] Last Admin: 11/01/17 10:48 Dose: 60 mg Metoprolol Succinate (Toprol Xl -) 100 mg PO DAILY [facility] Last Admin: 11/01/17 10:48 Dose: 100 mg Metronidazole (Flagyl -) 250 mg PO TID [facility] Last Admin: 11/01/17 13:25 Dose: 250 mg Nystatin (Mycostatin Ointment -) 1 applic TP BID [facility] Last Admin: 11/01/17 10:49 Dose: 1 applic Pancrelipase (Creon Dr 36,000 Units Capsule) 1 cap PO TIDCM [facility] Last Admin: 11/01/17 12:00 Dose: 1 cap Pantoprazole Sodium (Protonix -) 40 mg PO DAILY [facility] Last Admin: 11/01/17 10:48 Dose: 40 mg Sitagliptin Phosphate (Januvia -) 100 mg PO DAILY@0700 [facility] Last Admin: 11/01/17 06:16 Dose: 100 mg Tamsulosin HCl (Flomax -) 0.4 mg PO DAILY@0830 [facility] Last Admin: 11/01/17 08:19 Dose: 0.4 mg Zinc Oxide/Panthenol/Vitamin E (Balmex Cream -) 1 applic TP DAILY PRN PRN Reason: APPLY TO RECTUM Last Admin: 10/31/17 11:00 Dose: 1 applic - Objective Vital Signs: Vital Signs Temperature 97.5 F L 11/01/17 14:00 Pulse Rate 86 11/01/17 14:00 Respiratory Rate 18 11/01/17 14:00 Blood Pressure 124/50 11/01/17 14:00 O2 Sat by Pulse Oximetry (%) 95 10/31/17 21:00 Constitutional: Yes: No Distress Cardiovascular: Yes: Regular Rate and Rhythm Respiratory: Yes: CTA Bilaterally Gastrointestinal: Yes: Normal Bowel Sounds, Soft Genitourinary: Yes: WNL Neurological: Yes: Alert, Oriented Labs: CBC, BMP 11/01/17 06:38 11/01/17 06:38 INR, PTT INR 1.38 (0.82-1.09) H 10/28/17 14:00 Microbiology 10/28/17 13:45 Blood - Peripheral Venous Blood Culture - Preliminary NO GROWTH OBTAINED AFTER 96 HOURS, INCUBATION TO CONTINUE FOR 1 DAYS. 10/28/17 13:45 Blood - Peripheral Venous Blood Culture - Preliminary NO GROWTH OBTAINED AFTER 96 HOURS, INCUBATION TO CONTINUE FOR 1 DAYS. 10/28/17 13:25 Urine - Urine Clean Catch Urine Culture - Final NO GROWTH OBTAINED 10/29/17 19:15 Urine For Antigen Detection Legionella Antigen - Final 10/29/17 19:15 Urine For Antigen Detection Streptococcus pneumoniae Antigen (M - Final Problem List - Problems (1) Chronic combined systolic and diastolic CHF, NYHA class 4 Code(s): I50.42 - CHRONIC COMBINED SYSTOLIC AND DIASTOLIC HRT FAIL (2) Pneumonia Code(s): J18.9 - PNEUMONIA, UNSPECIFIED ORGANISM (3) Abdominal discomfort Code(s): R10.9 - UNSPECIFIED ABDOMINAL PAIN (4) BPH (benign prostatic hyperplasia) Code(s): N40.0 - BENIGN PROSTATIC HYPERPLASIA WITHOUT LOWER URINRY TRACT SYMP (5) CHF (congestive heart failure) Code(s): I50.9 - HEART FAILURE, UNSPECIFIED (6) Diabetes Code(s): E11.9 - TYPE 2 DIABETES MELLITUS WITHOUT COMPLICATIONS (7) HLD (hyperlipidemia) Code(s): E78.5 - HYPERLIPIDEMIA, UNSPECIFIED (8) Hypertension Code(s): I10 - ESSENTIAL (PRIMARY) HYPERTENSION (9) Pulmonary HTN Code(s): I27.2 - OTHER SECONDARY PULMONARY HYPERTENSION * DO NOT USE * Assessment/Plan 76 y.o. male presenting with c/o productive cough x 3 wks admitted with leukocytosis, still with blood-tinged sputum -- cont antibiotics, -- chest CT ordered currently afebrile, stable, with less productive cough continue monitor
--- NOTE | 2017-11-01 16:58 | EKG ---
Test Reason : Blood Pressure : / mmHG Vent. Rate : 084 BPM Atrial Rate : 084 BPM P-R Int : 170 ms QRS Dur : 172 ms QT Int : 442 ms P-R-T Axes : 134 -74 020 degrees QTc Int : 522 ms UNUSUAL P AXIS, POSSIBLE ECTOPIC ATRIAL RHYTHM WITH PREMATURE ATRIAL COMPLEXES WITH ABERRANT CONDUCTION RIGHT BUNDLE BRANCH BLOCK LEFT ANTERIOR FASCICULAR BLOCK BIFASCICULAR BLOCK SEPTAL INFARCT (CITED ON OR BEFORE 01-NOV-2017) ABNORMAL ECG WHEN COMPARED WITH ECG OF 29-OCT-2017 09:45, PREVIOUS ECG HAS UNDETERMINED RHYTHM, NEEDS REVIEW Confirmed by CARMEL OLIVEIRA MD ([id number]) on 11/01/2017 4:58:40 PM Referred By: Kvng AGUILAR Confirmed By:CARMEL OLIVEIRA MD
--- NOTE | 2017-11-01 17:03 | EKG ---
Test Reason : Blood Pressure : / mmHG Vent. Rate : 087 BPM Atrial Rate : 087 BPM P-R Int : 174 ms QRS Dur : 178 ms QT Int : 452 ms P-R-T Axes : 040 -71 012 degrees QTc Int : 543 ms SINUS RHYTHM WITH ; CANNOT EXCLUDE ATRIAL TACHYCARDIA RIGHT BUNDLE BRANCH BLOCK LEFT ANTERIOR FASCICULAR BLOCK BIFASCICULAR BLOCK SEPTAL INFARCT (CITED ON OR BEFORE 10-AUG-2013) ABNORMAL ECG WHEN COMPARED WITH ECG OF 28-OCT-2017 13:20, PREMATURE ATRIAL COMPLEXES ARE NOW PRESENT Confirmed by CARMEL OLIVEIRA MD ([id number]) on 11/01/2017 5:03:30 PM Referred By: Confirmed By:CARMEL OLIVEIRA MD
[2017-11-01] MEDS ORDERED: LORazepam 2 MG/ML SDV VIAL IVPUSH ONE (20:23)
[2017-11-02] MEDS: ALBUTEROL SO4 2.5/IPRATROPIUM 0.5 INH SOL 3 ML VIAL.NEB. NEB SCH ×3 (05:32→23:18)
[2017-11-02] MEDS: HEPARIN NA (PORCINE) 5,000 UNITS/ML 1ML VIAL SQ SCH ×3 (06:10→21:48)
[2017-11-02] MEDS: SACUBITRIL/VALSARTAN 24 MG-26 MG TABLET PO SCH ×2 (06:10→17:23)
[2017-11-02] MEDS: metroNIDAZOLE 250 MG TABLET PO SCH ×3 (06:10→21:48)
[2017-11-02] MEDS: sitaGLIPtin PHOSPHATE 100 MG TABLET (FP) PO SCH (06:10)
[2017-11-02] MEDS ORDERED: PT OWN MED DRAWER 7, Y5N ONE ×5 (08:23→21:45)
[2017-11-02] MEDS: LIPASE/PROTEASE/AMYLASE 36,000 UNIT CAPSULE PO SCH ×3 (09:24→17:21)
[2017-11-02] MEDS: TAMSULOSIN HCL 0.4 MG CAP.ER.24H (FP) PO SCH (09:24)
[2017-11-02] MEDS: CEFTRIAXONE 1 G/50 ML PREMIX 50 ML IVPB SCH (09:24)
[2017-11-02] MEDS: ATORVASTATIN CA 40 MG TABLET (FP) PO SCH (09:24)
[2017-11-02] MEDS: PANTOPRAZOLE 40 MG TABLET (FP) PO SCH (09:25)
[2017-11-02] MEDS: ASPIRIN COATED 81 MG TABLET.EC PO SCH (09:25)
[2017-11-02] MEDS: METOPROLOL SUCCINATE 100 MG TAB.SR.24H (FP) PO SCH (09:25)
[2017-11-02] MEDS: ESCITALOPRAM OXALATE 10 MG TABLET (FP) PO SCH (09:25)
[2017-11-02] MEDS: FUROSEMIDE 40 MG TABLET (FP) PO SCH (09:25)
[2017-11-02] MEDS: ISOSORBIDE MONONITRATE 60 MG TAB.SR.24H (FP) PO SCH (09:25)
[2017-11-02] MEDS: AZITHROMYCIN IVPB 250 MG in DEXTROSE 5%-WATER - 250 ML IVPB SCH (09:43)
--- NOTE | 2017-11-02 09:46 | PN ---
Progress Note, Physician History of Present Illness: pulmonary alert,feeling better,hemoptysis resolved - Current Medication List Current Medications: Active Medications Albuterol Sulfate (Ventolin 0.083% Nebulizer Soln -) 1 amp NEB Q4H PRN PRN Reason: SHORT OF BREATH/WHEEZING Last Admin: 11/01/17 10:00 Dose: 1 amp Albuterol/Ipratropium (Duoneb -) 1 amp NEB TIDR [facility] Last Admin: 11/02/17 05:32 Dose: 1 amp Aspirin (Ecotrin -) 81 mg PO DAILY [facility] Last Admin: 11/02/17 09:25 Dose: 81 mg Atorvastatin Calcium (Lipitor -) 40 mg PO DAILY [facility] Last Admin: 11/02/17 09:24 Dose: 40 mg Escitalopram Oxalate (Lexapro -) 10 mg PO DAILY [facility] Last Admin: 11/02/17 09:25 Dose: 10 mg Furosemide (Lasix -) 80 mg PO DAILY [facility] Last Admin: 11/02/17 09:25 Dose: 80 mg Heparin Sodium (Porcine) (Heparin -) 5,000 unit SQ TID [facility] Last Admin: 11/02/17 06:10 Dose: 5,000 unit Azithromycin 250 mg/ Dextrose 250 mls @ 250 mls/hr IVPB DAILY [facility] Last Admin: 11/01/17 13:24 Dose: 250 mls/hr CEFTRIAXONE 1 G/50 ML PREMIX (Ceftriaxone 1 Gm-D5w Bag) 50 mls @ 100 mls/hr IVPB DAILY [facility] Last Admin: 11/02/17 09:24 Dose: 100 mls/hr Isosorbide Mononitrate (Imdur -) 60 mg PO DAILY [facility] Last Admin: 11/02/17 09:25 Dose: 60 mg Metoprolol Succinate (Toprol Xl -) 100 mg PO DAILY [facility] Last Admin: 11/02/17 09:25 Dose: 100 mg Metronidazole (Flagyl -) 250 mg PO TID [facility] Last Admin: 11/02/17 06:10 Dose: 250 mg Nystatin (Mycostatin Ointment -) 1 applic TP BID [facility] Last Admin: 11/01/17 22:29 Dose: 1 applic Pancrelipase (Creon Dr 36,000 Units Capsule) 1 cap PO TIDCM [facility] Last Admin: 11/02/17 09:24 Dose: 1 cap Pantoprazole Sodium (Protonix -) 40 mg PO DAILY [facility] Last Admin: 11/02/17 09:25 Dose: 40 mg Sitagliptin Phosphate (Januvia -) 100 mg PO DAILY@0700 [facility] Last Admin: 11/02/17 06:10 Dose: 100 mg Tamsulosin HCl (Flomax -) 0.4 mg PO DAILY@0830 [facility] Last Admin: 11/02/17 09:24 Dose: 0.4 mg Zinc Oxide/Panthenol/Vitamin E (Balmex Cream -) 1 applic TP DAILY PRN PRN Reason: APPLY TO RECTUM Last Admin: 10/31/17 11:00 Dose: 1 applic - Objective Vital Signs: Vital Signs Temperature 98.4 F 11/02/17 06:00 Pulse Rate 82 11/02/17 06:00 Respiratory Rate 20 11/02/17 06:00 Blood Pressure 145/80 11/02/17 06:00 O2 Sat by Pulse Oximetry (%) 93 L 11/01/17 21:00 Constitutional: Yes: Well Nourished, Calm Eyes: Yes: WNL HENT: Yes: WNL Neck: Yes: WNL Cardiovascular: Yes: Regular Rate and Rhythm, S1, S2 Respiratory: Yes: Rhonchi (few scattered prasad rhonchi) Gastrointestinal: Yes: Normal Bowel Sounds, Soft Extremities: Yes: WNL Edema: No Labs: CBC, BMP Assessment/Plan A/P Pneumonia LLL Pulmonary HTN Mitral Regurgitation Chronic Hypoxic Respiratory Failure DM CAD - antibiotics - monitor fever curve, WBC trend - O2 to keep SpO2 >90% - inhaled bronchodilators - continue cardiac meds - DVT prophylaxis Problem List - Problems (1) Pneumonia Code(s): J18.9 - PNEUMONIA, UNSPECIFIED ORGANISM (2) Diabetes Code(s): E11.9 - TYPE 2 DIABETES MELLITUS WITHOUT COMPLICATIONS (3) HLD (hyperlipidemia) Code(s): E78.5 - HYPERLIPIDEMIA, UNSPECIFIED (4) Hypertension Code(s): I10 - ESSENTIAL (PRIMARY) HYPERTENSION (5) Pulmonary HTN Code(s): I27.2 - OTHER SECONDARY PULMONARY HYPERTENSION * DO NOT USE *
--- NOTE | 2017-11-02 11:51 | PN ---
Progress Note, Physician History of Present Illness: stable still with blood tinged sputum - Current Medication List Current Medications: Active Medications Albuterol Sulfate (Ventolin 0.083% Nebulizer Soln -) 1 amp NEB Q4H PRN PRN Reason: SHORT OF BREATH/WHEEZING Last Admin: 11/01/17 10:00 Dose: 1 amp Albuterol/Ipratropium (Duoneb -) 1 amp NEB TIDR [facility] Last Admin: 11/02/17 05:32 Dose: 1 amp Aspirin (Ecotrin -) 81 mg PO DAILY [facility] Last Admin: 11/02/17 09:25 Dose: 81 mg Atorvastatin Calcium (Lipitor -) 40 mg PO DAILY [facility] Last Admin: 11/02/17 09:24 Dose: 40 mg Escitalopram Oxalate (Lexapro -) 10 mg PO DAILY [facility] Last Admin: 11/02/17 09:25 Dose: 10 mg Furosemide (Lasix -) 80 mg PO DAILY [facility] Last Admin: 11/02/17 09:25 Dose: 80 mg Heparin Sodium (Porcine) (Heparin -) 5,000 unit SQ TID [facility] Last Admin: 11/02/17 06:10 Dose: 5,000 unit Azithromycin 250 mg/ Dextrose 250 mls @ 250 mls/hr IVPB DAILY [facility] Last Admin: 11/02/17 09:43 Dose: 250 mls/hr CEFTRIAXONE 1 G/50 ML PREMIX (Ceftriaxone 1 Gm-D5w Bag) 50 mls @ 100 mls/hr IVPB DAILY [facility] Last Admin: 11/02/17 09:24 Dose: 100 mls/hr Isosorbide Mononitrate (Imdur -) 60 mg PO DAILY [facility] Last Admin: 11/02/17 09:25 Dose: 60 mg Metoprolol Succinate (Toprol Xl -) 100 mg PO DAILY [facility] Last Admin: 11/02/17 09:25 Dose: 100 mg Metronidazole (Flagyl -) 250 mg PO TID [facility] Last Admin: 11/02/17 06:10 Dose: 250 mg Nystatin (Mycostatin Ointment -) 1 applic TP BID [facility] Last Admin: 11/01/17 22:29 Dose: 1 applic Pancrelipase (Creon Dr 36,000 Units Capsule) 1 cap PO TIDCM [facility] Last Admin: 11/02/17 09:24 Dose: 1 cap Pantoprazole Sodium (Protonix -) 40 mg PO DAILY [facility] Last Admin: 11/02/17 09:25 Dose: 40 mg Sitagliptin Phosphate (Januvia -) 100 mg PO DAILY@0700 [facility] Last Admin: 11/02/17 06:10 Dose: 100 mg Tamsulosin HCl (Flomax -) 0.4 mg PO DAILY@0830 [facility] Last Admin: 11/02/17 09:24 Dose: 0.4 mg Zinc Oxide/Panthenol/Vitamin E (Balmex Cream -) 1 applic TP DAILY PRN PRN Reason: APPLY TO RECTUM Last Admin: 10/31/17 11:00 Dose: 1 applic - Objective Vital Signs: Vital Signs Temperature 98.4 F 11/02/17 06:00 Pulse Rate 82 11/02/17 06:00 Respiratory Rate 20 11/02/17 06:00 Blood Pressure 145/80 11/02/17 06:00 O2 Sat by Pulse Oximetry (%) 93 L 11/01/17 21:00 Constitutional: Yes: No Distress, Calm Cardiovascular: Yes: Regular Rate and Rhythm Respiratory: Yes: Poor Air Entry, Rhonchi Gastrointestinal: Yes: Normal Bowel Sounds, Soft Musculoskeletal: Yes: WNL Extremities: Yes: WNL Neurological: Yes: Alert, Oriented Psychiatric: Yes: Alert, Oriented Labs: CBC, BMP 11/01/17 06:38 11/01/17 06:38 INR, PTT INR 1.38 (0.82-1.09) H 10/28/17 14:00 - ....Imaging Cat Scan: Report Reviewed, Image Reviewed Assessment/Plan Problem List - Problems (1) Pneumonia Code(s): J18.9 - PNEUMONIA, UNSPECIFIED ORGANISM (2) Diabetes Code(s): E11.9 - TYPE 2 DIABETES MELLITUS WITHOUT COMPLICATIONS (3) HLD (hyperlipidemia) Code(s): E78.5 - HYPERLIPIDEMIA, UNSPECIFIED (4) Hypertension Code(s): I10 - ESSENTIAL (PRIMARY) HYPERTENSION (5) Pulmonary HTN Code(s): I27.2 - OTHER SECONDARY PULMONARY HYPERTENSION * DO NOT USE * MR fernando am a bit worried about the blood tinged sputum.patient does ahve pul HTN plan continue abx incentive crow rest as per primary
[2017-11-02] MEDS: NYSTATIN 100000 UNIT/GM TOPICAL OINTMENT 15 GM TUBE TP SCH ×2 (12:38→21:49)
[2017-11-02] MEDS: traMADol HCL 50 MG TABLET PO PRN (19:50)
--- NOTE | 2017-11-02 23:57 | PN ---
Progress Note, Physician History of Present Illness: Pt w/ hemoptysis - Current Medication List Current Medications: Active Medications Albuterol Sulfate (Ventolin 0.083% Nebulizer Soln -) 1 amp NEB Q4H PRN PRN Reason: SHORT OF BREATH/WHEEZING Last Admin: 11/01/17 10:00 Dose: 1 amp Albuterol/Ipratropium (Duoneb -) 1 amp NEB TIDR [facility] Last Admin: 11/02/17 23:18 Dose: 1 amp Aspirin (Ecotrin -) 81 mg PO DAILY [facility] Last Admin: 11/02/17 09:25 Dose: 81 mg Atorvastatin Calcium (Lipitor -) 40 mg PO DAILY [facility] Last Admin: 11/02/17 09:24 Dose: 40 mg Escitalopram Oxalate (Lexapro -) 10 mg PO DAILY [facility] Last Admin: 11/02/17 09:25 Dose: 10 mg Furosemide (Lasix -) 80 mg PO DAILY [facility] Last Admin: 11/02/17 09:25 Dose: 80 mg Heparin Sodium (Porcine) (Heparin -) 5,000 unit SQ TID [facility] Last Admin: 11/02/17 21:48 Dose: 5,000 unit Azithromycin 250 mg/ Dextrose 250 mls @ 250 mls/hr IVPB DAILY [facility] Last Admin: 11/02/17 09:43 Dose: 250 mls/hr CEFTRIAXONE 1 G/50 ML PREMIX (Ceftriaxone 1 Gm-D5w Bag) 50 mls @ 100 mls/hr IVPB DAILY [facility] Last Admin: 11/02/17 09:24 Dose: 100 mls/hr Isosorbide Mononitrate (Imdur -) 60 mg PO DAILY [facility] Last Admin: 11/02/17 09:25 Dose: 60 mg Metoprolol Succinate (Toprol Xl -) 100 mg PO DAILY [facility] Last Admin: 11/02/17 09:25 Dose: 100 mg Metronidazole (Flagyl -) 250 mg PO TID [facility] Last Admin: 11/02/17 21:48 Dose: 250 mg Nystatin (Mycostatin Ointment -) 1 applic TP BID [facility] Last Admin: 11/02/17 21:49 Dose: 1 applic Pancrelipase (Creon Dr 36,000 Units Capsule) 1 cap PO TIDCM [facility] Last Admin: 11/02/17 17:21 Dose: 1 cap Pantoprazole Sodium (Protonix -) 40 mg PO DAILY [facility] Last Admin: 11/02/17 09:25 Dose: 40 mg Sitagliptin Phosphate (Januvia -) 100 mg PO DAILY@0700 [facility] Last Admin: 11/02/17 06:10 Dose: 100 mg Tamsulosin HCl (Flomax -) 0.4 mg PO DAILY@0830 [facility] Last Admin: 11/02/17 09:24 Dose: 0.4 mg Tramadol HCl (Ultram -) 50 mg PO Q12H PRN Last Admin: 11/02/17 19:50 Dose: 50 mg Zinc Oxide/Panthenol/Vitamin E (Balmex Cream -) 1 applic TP DAILY PRN PRN Reason: APPLY TO RECTUM Last Admin: 10/31/17 11:00 Dose: 1 applic - Objective Vital Signs: Vital Signs Temperature 97.9 F 11/02/17 22:00 Pulse Rate 81 11/02/17 22:00 Respiratory Rate 20 11/02/17 22:00 Blood Pressure 153/74 11/02/17 22:00 O2 Sat by Pulse Oximetry (%) 93 L 11/02/17 21:00 Constitutional: Yes: Well Nourished Neck: Yes: WNL, Supple Cardiovascular: Yes: WNL, Regular Rate and Rhythm Respiratory: Yes: WNL, Regular, CTA Bilaterally Gastrointestinal: Yes: WNL, Normal Bowel Sounds, Soft Extremities: Yes: WNL Edema: No Labs: CBC, BMP 11/01/17 06:38 11/01/17 06:38 INR, PTT INR 1.38 (0.82-1.09) H 10/28/17 14:00 Problem List - Problems (1) Pneumonia Assessment/Plan: Cont IV ceftriaxone/zithro CT scan chest showed LLL consolidaiton As per pulmonary Code(s): J18.9 - PNEUMONIA, UNSPECIFIED ORGANISM (2) Abdominal discomfort Assessment/Plan: Pt on metronidazole Code(s): R10.9 - UNSPECIFIED ABDOMINAL PAIN (3) BPH (benign prostatic hyperplasia) Assessment/Plan: Cont flomax Code(s): N40.0 - BENIGN PROSTATIC HYPERPLASIA WITHOUT LOWER URINRY TRACT SYMP (4) Hypertension Assessment/Plan: BP stable Cont antihypertensives Code(s): I10 - ESSENTIAL (PRIMARY) HYPERTENSION (5) HLD (hyperlipidemia) Assessment/Plan: Cont lipitor Code(s): E78.5 - HYPERLIPIDEMIA, UNSPECIFIED (6) Morbid obesity Code(s): E66.01 - MORBID (SEVERE) OBESITY DUE TO EXCESS CALORIES
[2017-11-03] MEDS ORDERED: PT OWN MED DRAWER 7, Y5N ONE (06:18)
[2017-11-03] MEDS: ALBUTEROL SO4 2.5/IPRATROPIUM 0.5 INH SOL 3 ML VIAL.NEB. NEB SCH ×2 (06:20→20:09)
[2017-11-03] MEDS: SACUBITRIL/VALSARTAN 24 MG-26 MG TABLET PO SCH ×2 (06:28→17:31)
[2017-11-03] MEDS: metroNIDAZOLE 250 MG TABLET PO SCH ×3 (06:28→21:16)
[2017-11-03] MEDS: HEPARIN NA (PORCINE) 5,000 UNITS/ML 1ML VIAL SQ SCH ×3 (06:28→21:15)
[2017-11-03] MEDS: sitaGLIPtin PHOSPHATE 100 MG TABLET (FP) PO SCH (06:28)
--- NOTE | 2017-11-03 06:48 | PN ---
Progress Note, Physician Chief Complaint: Pt A&Ox3; OOB in chair; no chest pain or dyspnea; no palpitations. 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 Friedman office for PNA. Pt seen and examined in the ER in nad. coughing, mild sob, mild pleuritic chest pain. denies palpitations, no change in chronic sob/anderson. mild LE edema which is chronic, no lightheadedness, dizziness, syncope or near syncope. - Current Medication List Current Medications: Active Medications Albuterol Sulfate (Ventolin 0.083% Nebulizer Soln -) 1 amp NEB Q4H PRN PRN Reason: SHORT OF BREATH/WHEEZING Last Admin: 11/01/17 10:00 Dose: 1 amp Albuterol/Ipratropium (Duoneb -) 1 amp NEB TIDR [facility] Last Admin: 11/03/17 06:20 Dose: 1 amp Aspirin (Ecotrin -) 81 mg PO DAILY [facility] Last Admin: 11/02/17 09:25 Dose: 81 mg Atorvastatin Calcium (Lipitor -) 40 mg PO DAILY [facility] Last Admin: 11/02/17 09:24 Dose: 40 mg Escitalopram Oxalate (Lexapro -) 10 mg PO DAILY [facility] Last Admin: 11/02/17 09:25 Dose: 10 mg Furosemide (Lasix -) 80 mg PO DAILY [facility] Last Admin: 11/02/17 09:25 Dose: 80 mg Heparin Sodium (Porcine) (Heparin -) 5,000 unit SQ TID [facility] Last Admin: 11/03/17 06:28 Dose: 5,000 unit Azithromycin 250 mg/ Dextrose 250 mls @ 250 mls/hr IVPB DAILY [facility] Last Admin: 11/02/17 09:43 Dose: 250 mls/hr CEFTRIAXONE 1 G/50 ML PREMIX (Ceftriaxone 1 Gm-D5w Bag) 50 mls @ 100 mls/hr IVPB DAILY [facility] Last Admin: 11/02/17 09:24 Dose: 100 mls/hr Isosorbide Mononitrate (Imdur -) 60 mg PO DAILY [facility] Last Admin: 12/25/17 09:25 Dose: 60 mg Metoprolol Succinate (Toprol Xl -) 100 mg PO DAILY [facility] Last Admin: 11/02/17 09:25 Dose: 100 mg Metronidazole (Flagyl -) 250 mg PO TID [facility] Last Admin: 11/03/17 06:28 Dose: 250 mg Nystatin (Mycostatin Ointment -) 1 applic TP BID [facility] Last Admin: 11/02/17 21:49 Dose: 1 applic Pancrelipase (Creon Dr 36,000 Units Capsule) 1 cap PO TIDCM [facility] Last Admin: 11/02/17 17:21 Dose: 1 cap Pantoprazole Sodium (Protonix -) 40 mg PO DAILY [facility] Last Admin: 11/02/17 09:25 Dose: 40 mg Sitagliptin Phosphate (Januvia -) 100 mg PO DAILY@0700 [facility] Last Admin: 11/03/17 06:28 Dose: 100 mg Tamsulosin HCl (Flomax -) 0.4 mg PO DAILY@0830 [facility] Last Admin: 11/02/17 09:24 Dose: 0.4 mg Tramadol HCl (Ultram -) 50 mg PO Q12H PRN Last Admin: 11/02/17 19:50 Dose: 50 mg Zinc Oxide/Panthenol/Vitamin E (Balmex Cream -) 1 applic TP DAILY PRN PRN Reason: APPLY TO RECTUM Last Admin: 10/31/17 11:00 Dose: 1 applic - Objective Vital Signs: Vital Signs Temperature 98.8 F 11/03/17 06:00 Pulse Rate 98 H 11/03/17 06:00 Respiratory Rate 20 11/03/17 06:00 Blood Pressure 109/71 11/03/17 06:00 O2 Sat by Pulse Oximetry (%) 93 L 11/02/17 21:00 Constitutional: Yes: No Distress Eyes: Yes: WNL HENT: Yes: WNL Neck: Yes: WNL Cardiovascular: Yes: Pulse Irregular, S1 (varies in intensity) Respiratory: Yes: Diminished Gastrointestinal: Yes: Soft. No: Tenderness ...Rectal Exam: Yes: Deferred Genitourinary: No: Anuria Musculoskeletal: Yes: Joint Stiffness Extremities: Yes: Cool Edema: Yes Edema: LLE: Trace, RLE: Trace Peripheral Pulses WNL: Yes Integumentary: Yes: Venous Stasis Changes Neurological: Yes: Alert, Oriented, Weakness Psychiatric: Yes: Other Labs: CBC, BMP 11/01/17 06:38 11/01/17 06:38 INR, PTT INR 1.38 (0.82-1.09) H 10/28/17 14:00 - ....Imaging Cat Scan: Image Reviewed (CT chest: left pleural effusion; +consolidation and infiltrate) Problem List - Problems (1) Abdominal bloating Assessment/Plan: f/u with GI Code(s): R14.0 - ABDOMINAL DISTENSION (GASEOUS) (2) Early satiety Code(s): R68.81 - EARLY SATIETY (3) Depression Code(s): F32.9 - MAJOR DEPRESSIVE DISORDER, SINGLE EPISODE, UNSPECIFIED (4) Pneumonia Assessment/Plan: on antibiotics. No further blood-tinged sputum Code(s): J18.9 - PNEUMONIA, UNSPECIFIED ORGANISM (5) Diabetes Code(s): E11.9 - TYPE 2 DIABETES MELLITUS WITHOUT COMPLICATIONS (6) HLD (hyperlipidemia) Assessment/Plan: Fasting triglycerides mildly elevated; change diet, increase exercise. Code(s): E78.5 - HYPERLIPIDEMIA, UNSPECIFIED (7) Hypertension Code(s): I10 - ESSENTIAL (PRIMARY) HYPERTENSION (8) PSVT (paroxysmal supraventricular tachycardia) Assessment/Plan: Holter monitor: NSR; frequent periods of wide-complex tachycardia (pt has resting bifascicular block, both RBBB and LAFB), to >200 bpm; cannot entirely r/ o AF or NSVT, though patterns likelier wide-complex PSVT and PAT). HR better-controlled on increased metoprolol (no prolonged arrhythmias noted on telemetry). Will continue metoprolol. Also on Entresto; consider spironolactone. Code(s): I47.1 - SUPRAVENTRICULAR TACHYCARDIA (9) Pulmonary HTN Code(s): I27.2 - OTHER SECONDARY PULMONARY HYPERTENSION * DO NOT USE * (10) Chronic combined systolic and diastolic CHF, NYHA class 4 Assessment/Plan: Continue beta blockers, entresto. Consider spironolactone. F/u BUN/Cr, electrolytes (low potassium repleted); Is and Os, daily weight. Code(s): I50.42 - CHRONIC COMBINED SYSTOLIC AND DIASTOLIC HRT FAIL
[2017-11-03 06:56] LABS: BASO % 0.3 % (0-2.0); EOS # 0.2 # (0-4.5); EOS % 2.5 % (0-4.5); LYMPH # 0.7 (8-40); MCH 33.7 pg (25.7-33.7); MCHC 32.5 g/dl (32.0-35.9); MEAN CELL VOLUME 103.9 fl (80-96); MEAN PLT VOLUME 8.5 fl (7.5-11.1); MONO # 0.7 # (3.8-10.2); NEUT # 7.4 # (42.8-82.8); PLATELET COUNT 249 K/MM3 (134-434); RDW 14.1 % (11.9-15.9)
[2017-11-03 07:37] LABS: ALBUMIN 3.1 g/dl (3.4-5.0); ALK PHOS 126 U/L (45-117); ANION GAP 9 (8-16); BILIRUBIN,TOTAL 0.6 mg/dL (0.2-1.0); CALCIUM 8.8 mg/dL (8.5-10.1); CO2 35 mmol/L (21-32); CREATININE 0.9 mg/dL (0.7-1.3); GLUCOSE,RANDOM 198 mg/dL (74-106); SGOT/AST 13 U/L (15-37); SGPT/ALT 25 U/L (12-78); TOT PROT 5.8 g/dl (6.4-8.2)
[2017-11-03] MEDS: TAMSULOSIN HCL 0.4 MG CAP.ER.24H (FP) PO SCH (08:07)
[2017-11-03] MEDS: LIPASE/PROTEASE/AMYLASE 36,000 UNIT CAPSULE PO SCH ×3 (08:07→17:31)
--- NOTE | 2017-11-03 09:31 | PN ---
Progress Note, Physician Chief Complaint: Appears more comfortable TELE: NSR, APCs, short bouts PAT - Current Medication List Current Medications: Active Medications Albuterol Sulfate (Ventolin 0.083% Nebulizer Soln -) 1 amp NEB Q4H PRN PRN Reason: SHORT OF BREATH/WHEEZING Last Admin: 11/01/17 10:00 Dose: 1 amp Albuterol/Ipratropium (Duoneb -) 1 amp NEB TIDR [facility] Last Admin: 11/03/17 06:20 Dose: 1 amp Aspirin (Ecotrin -) 81 mg PO DAILY [facility] Last Admin: 11/02/17 09:25 Dose: 81 mg Atorvastatin Calcium (Lipitor -) 40 mg PO DAILY [facility] Last Admin: 11/02/17 09:24 Dose: 40 mg Escitalopram Oxalate (Lexapro -) 10 mg PO DAILY [facility] Last Admin: 11/02/17 09:25 Dose: 10 mg Furosemide (Lasix -) 80 mg PO DAILY [facility] Last Admin: 11/02/17 09:25 Dose: 80 mg Heparin Sodium (Porcine) (Heparin -) 5,000 unit SQ TID [facility] Last Admin: 11/03/17 06:28 Dose: 5,000 unit Azithromycin 250 mg/ Dextrose 250 mls @ 250 mls/hr IVPB DAILY [facility] Last Admin: 11/02/17 09:43 Dose: 250 mls/hr CEFTRIAXONE 1 G/50 ML PREMIX (Ceftriaxone 1 Gm-D5w Bag) 50 mls @ 100 mls/hr IVPB DAILY [facility] Last Admin: 11/02/17 09:24 Dose: 100 mls/hr Isosorbide Mononitrate (Imdur -) 60 mg PO DAILY [facility] Last Admin: 11/02/17 09:25 Dose: 60 mg Metoprolol Succinate (Toprol Xl -) 100 mg PO DAILY [facility] Last Admin: 11/02/17 09:25 Dose: 100 mg Metronidazole (Flagyl -) 250 mg PO TID [facility] Last Admin: 11/03/17 06:28 Dose: 250 mg Nystatin (Mycostatin Ointment -) 1 applic TP BID [facility] Last Admin: 11/02/17 21:49 Dose: 1 applic Pancrelipase (Creon Dr 36,000 Units Capsule) 1 cap PO TIDCM [facility] Last Admin: 11/03/17 08:07 Dose: 1 cap Pantoprazole Sodium (Protonix -) 40 mg PO DAILY [facility] Last Admin: 11/02/17 09:25 Dose: 40 mg Sitagliptin Phosphate (Januvia -) 100 mg PO DAILY@0700 [facility] Last Admin: 11/03/17 06:28 Dose: 100 mg Tamsulosin HCl (Flomax -) 0.4 mg PO DAILY@0830 [facility] Last Admin: 11/03/17 08:07 Dose: 0.4 mg Tramadol HCl (Ultram -) 50 mg PO Q12H PRN Last Admin: 11/02/17 19:50 Dose: 50 mg Zinc Oxide/Panthenol/Vitamin E (Balmex Cream -) 1 applic TP DAILY PRN PRN Reason: APPLY TO RECTUM Last Admin: 10/31/17 11:00 Dose: 1 applic - Objective Vital Signs: Vital Signs Temperature 98.6 F 11/03/17 08:00 Pulse Rate 80 11/03/17 08:00 Respiratory Rate 16 11/03/17 08:00 Blood Pressure 128/68 11/03/17 08:00 O2 Sat by Pulse Oximetry (%) 93 L 11/02/17 21:00 Constitutional: Yes: No Distress, Calm Eyes: Yes: Conjunctiva Clear, EOM Intact Cardiovascular: Yes: Regular Rate and Rhythm Respiratory: Yes: Other (decreased basilar breath sounds) Gastrointestinal: Yes: Soft, Abdomen, Obese Edema: No Neurological: Yes: Alert, Oriented Labs: CBC, BMP 11/03/17 06:40 11/03/17 06:40 INR, PTT INR 1.38 (0.82-1.09) H 10/28/17 14:00 Microbiology 10/28/17 13:45 Blood - Peripheral Venous Blood Culture - Final NO GROWTH AFTER 5 DAYS INCUBATION 10/28/17 13:45 Blood - Peripheral Venous Blood Culture - Final NO GROWTH AFTER 5 DAYS INCUBATION 10/28/17 13:25 Urine - Urine Clean Catch Urine Culture - Final NO GROWTH OBTAINED Laboratory Tests 11/03/17 11/03/17 06:40 06:40 WBC 9.0 Hgb 10.5 L Plt Count 249 D Potassium 3.9 Creatinine 0.9 - ....Imaging MRI: Image Reviewed Assessment/Plan (1) Abdominal bloating Assessment/Plan: f/u with GI Code(s): R14.0 - ABDOMINAL DISTENSION (GASEOUS) (2) Early satiety Code(s): R68.81 - EARLY SATIETY Chronic, F/u GI (3) Depression Code(s): F32.9 - MAJOR DEPRESSIVE DISORDER, SINGLE EPISODE, UNSPECIFIED -F/u PMD (4) Pneumonia Assessment/Plan: on antibiotics. No further blood-tinged sputum Code(s): J18.9 - PNEUMONIA, UNSPECIFIED ORGANISM (5) Diabetes Code(s): E11.9 - TYPE 2 DIABETES MELLITUS WITHOUT COMPLICATIONS -F/u PMD (6) HLD (hyperlipidemia) Assessment/Plan: Fasting triglycerides mildly elevated; change diet, increase exercise. Code(s): E78.5 - HYPERLIPIDEMIA, UNSPECIFIED (7) Hypertension Code(s): I10 - ESSENTIAL (PRIMARY) HYPERTENSION -Currently well controlled (8) PSVT (paroxysmal supraventricular tachycardia) Assessment/Plan: -PAT/PSVT is chronic, cont. Toprol -Seems well controlled on tele last 24-48 hours Code(s): I47.1 - SUPRAVENTRICULAR TACHYCARDIA (9) Pulmonary HTN Code(s): I27.2 - OTHER SECONDARY PULMONARY HYPERTENSION * DO NOT USE * -Chronic, f/u Pulm as outpatient (10) Chronic combined systolic and diastolic CHF, NYHA class 4 Assessment/Plan: -Continue beta blockers, entresto. -Euvolemic, cont. PO Lasix
[2017-11-03] MEDS: ATORVASTATIN CA 40 MG TABLET (FP) PO SCH (10:37)
[2017-11-03] MEDS: CEFTRIAXONE 1 G/50 ML PREMIX 50 ML IVPB SCH (10:37)
[2017-11-03] MEDS: FUROSEMIDE 40 MG TABLET (FP) PO SCH (10:37)
[2017-11-03] MEDS: ESCITALOPRAM OXALATE 10 MG TABLET (FP) PO SCH (10:38)
[2017-11-03] MEDS: ASPIRIN COATED 81 MG TABLET.EC PO SCH (10:38)
[2017-11-03] MEDS: METOPROLOL SUCCINATE 100 MG TAB.SR.24H (FP) PO SCH (10:38)
[2017-11-03] MEDS: PANTOPRAZOLE 40 MG TABLET (FP) PO SCH (10:38)
[2017-11-03] MEDS: ISOSORBIDE MONONITRATE 60 MG TAB.SR.24H (FP) PO SCH (10:38)
[2017-11-03] MEDS: NYSTATIN 100000 UNIT/GM TOPICAL OINTMENT 15 GM TUBE TP SCH ×2 (10:38→21:16)
[2017-11-03] MEDS: AZITHROMYCIN IVPB 250 MG in DEXTROSE 5%-WATER - 250 ML IVPB SCH (10:39)
--- NOTE | 2017-11-03 10:46 | PN ---
Progress Note, Physician History of Present Illness: pulmonary alert,oob-chair,less congested,less dyspneic - Current Medication List Current Medications: Active Medications Albuterol Sulfate (Ventolin 0.083% Nebulizer Soln -) 1 amp NEB Q4H PRN PRN Reason: SHORT OF BREATH/WHEEZING Last Admin: 11/01/17 10:00 Dose: 1 amp Albuterol/Ipratropium (Duoneb -) 1 amp NEB TIDR [facility] Last Admin: 11/03/17 06:20 Dose: 1 amp Aspirin (Ecotrin -) 81 mg PO DAILY [facility] Last Admin: 11/03/17 10:38 Dose: 81 mg Atorvastatin Calcium (Lipitor -) 40 mg PO DAILY [facility] Last Admin: 11/03/17 10:37 Dose: 40 mg Escitalopram Oxalate (Lexapro -) 10 mg PO DAILY [facility] Last Admin: 11/03/17 10:38 Dose: 10 mg Furosemide (Lasix -) 80 mg PO DAILY [facility] Last Admin: 11/03/17 10:37 Dose: 80 mg Heparin Sodium (Porcine) (Heparin -) 5,000 unit SQ TID [facility] Last Admin: 11/03/17 06:28 Dose: 5,000 unit Azithromycin 250 mg/ Dextrose 250 mls @ 250 mls/hr IVPB DAILY [facility] Last Admin: 11/03/17 10:39 Dose: 250 mls/hr CEFTRIAXONE 1 G/50 ML PREMIX (Ceftriaxone 1 Gm-D5w Bag) 50 mls @ 100 mls/hr IVPB DAILY [facility] Last Admin: 11/03/17 10:37 Dose: 100 mls/hr Isosorbide Mononitrate (Imdur -) 60 mg PO DAILY [facility] Last Admin: 11/03/17 10:38 Dose: 60 mg Metoprolol Succinate (Toprol Xl -) 100 mg PO DAILY [facility] Last Admin: 11/03/17 10:38 Dose: 100 mg Metronidazole (Flagyl -) 250 mg PO TID [facility] Last Admin: 11/03/17 06:28 Dose: 250 mg Nystatin (Mycostatin Ointment -) 1 applic TP BID [facility] Last Admin: 11/03/17 10:38 Dose: 1 applic Pancrelipase (Creon Dr 36,000 Units Capsule) 1 cap PO TIDCM [facility] Last Admin: 11/03/17 08:07 Dose: 1 cap Pantoprazole Sodium (Protonix -) 40 mg PO DAILY [facility] Last Admin: 11/03/17 10:38 Dose: 40 mg Sitagliptin Phosphate (Januvia -) 100 mg PO DAILY@0700 [facility] Last Admin: 11/03/17 06:28 Dose: 100 mg Tamsulosin HCl (Flomax -) 0.4 mg PO DAILY@0830 [facility] Last Admin: 11/03/17 08:07 Dose: 0.4 mg Tramadol HCl (Ultram -) 50 mg PO Q12H PRN Last Admin: 11/02/17 19:50 Dose: 50 mg Zinc Oxide/Panthenol/Vitamin E (Balmex Cream -) 1 applic TP DAILY PRN PRN Reason: APPLY TO RECTUM Last Admin: 10/31/17 11:00 Dose: 1 applic - Objective Vital Signs: Vital Signs Temperature 98.6 F 11/03/17 08:00 Pulse Rate 80 11/03/17 08:00 Respiratory Rate 16 11/03/17 08:00 Blood Pressure 128/68 11/03/17 08:00 O2 Sat by Pulse Oximetry (%) 93 L 11/02/17 21:00 Constitutional: Yes: Calm, Obese Eyes: Yes: WNL HENT: Yes: WNL Neck: Yes: WNL Cardiovascular: Yes: Regular Rate and Rhythm, S1, S2 Respiratory: Yes: Rhonchi (few rhonchi) Gastrointestinal: Yes: Normal Bowel Sounds, Soft Extremities: Yes: WNL Edema: Yes Labs: CBC, BMP 11/03/17 06:40 11/03/17 06:40 INR, PTT INR 1.38 (0.82-1.09) H 10/28/17 14:00 Assessment/Plan A/P Pneumonia LLL Pulmonary HTN Mitral Regurgitation Chronic Hypoxic Respiratory Failure DM CAD - antibiotics - O2 to keep SpO2 >90% - inhaled bronchodilators - continue cardiac meds - DVT prophylaxis Problem List - Problems (1) Pneumonia Code(s): J18.9 - PNEUMONIA, UNSPECIFIED ORGANISM (2) Diabetes Code(s): E11.9 - TYPE 2 DIABETES MELLITUS WITHOUT COMPLICATIONS (3) HLD (hyperlipidemia) Code(s): E78.5 - HYPERLIPIDEMIA, UNSPECIFIED (4) Hypertension Code(s): I10 - ESSENTIAL (PRIMARY) HYPERTENSION (5) Pulmonary HTN Code(s): I27.2 - OTHER SECONDARY PULMONARY HYPERTENSION * DO NOT USE *
--- NOTE | 2017-11-03 15:24 | PN ---
Progress Note, Physician History of Present Illness: stable no new issues - Current Medication List Current Medications: Active Medications Albuterol/Ipratropium (Duoneb -) 1 amp NEB TIDR [facility] Last Admin: 11/03/17 06:20 Dose: 1 amp Aspirin (Ecotrin -) 81 mg PO DAILY [facility] Last Admin: 11/03/17 10:38 Dose: 81 mg Atorvastatin Calcium (Lipitor -) 40 mg PO DAILY [facility] Last Admin: 11/03/17 10:37 Dose: 40 mg Escitalopram Oxalate (Lexapro -) 10 mg PO DAILY [facility] Last Admin: 11/03/17 10:38 Dose: 10 mg Furosemide (Lasix -) 80 mg PO DAILY [facility] Last Admin: 11/03/17 10:37 Dose: 80 mg Heparin Sodium (Porcine) (Heparin -) 5,000 unit SQ TID [facility] Last Admin: 11/03/17 06:28 Dose: 5,000 unit Azithromycin 250 mg/ Dextrose 250 mls @ 250 mls/hr IVPB DAILY [facility] Last Admin: 11/03/17 10:39 Dose: 250 mls/hr CEFTRIAXONE 1 G/50 ML PREMIX (Ceftriaxone 1 Gm-D5w Bag) 50 mls @ 100 mls/hr IVPB DAILY [facility] Last Admin: 11/03/17 10:37 Dose: 100 mls/hr Isosorbide Mononitrate (Imdur -) 60 mg PO DAILY [facility] Last Admin: 11/03/17 10:38 Dose: 60 mg Metoprolol Succinate (Toprol Xl -) 100 mg PO DAILY [facility] Last Admin: 11/03/17 10:38 Dose: 100 mg Metronidazole (Flagyl -) 250 mg PO TID [facility] Last Admin: 11/03/17 06:28 Dose: 250 mg Nystatin (Mycostatin Ointment -) 1 applic TP BID [facility] Last Admin: 11/03/17 10:38 Dose: 1 applic Pancrelipase (Creon Dr 36,000 Units Capsule) 1 cap PO TIDCM [facility] Last Admin: 11/03/17 12:30 Dose: 1 cap Pantoprazole Sodium (Protonix -) 40 mg PO DAILY [facility] Last Admin: 11/03/17 10:38 Dose: 40 mg Sitagliptin Phosphate (Januvia -) 100 mg PO DAILY@0700 [facility] Last Admin: 11/03/17 06:28 Dose: 100 mg Tamsulosin HCl (Flomax -) 0.4 mg PO DAILY@0830 [facility] Last Admin: 11/03/17 08:07 Dose: 0.4 mg Tramadol HCl (Ultram -) 50 mg PO Q12H PRN Last Admin: 11/02/17 19:50 Dose: 50 mg Zinc Oxide/Panthenol/Vitamin E (Balmex Cream -) 1 applic TP DAILY PRN PRN Reason: APPLY TO RECTUM Last Admin: 10/31/17 11:00 Dose: 1 applic - Objective Vital Signs: Vital Signs Temperature 98.6 F 11/03/17 08:00 Pulse Rate 80 11/03/17 08:00 Respiratory Rate 16 11/03/17 08:00 Blood Pressure 128/68 11/03/17 08:00 O2 Sat by Pulse Oximetry (%) 95 11/03/17 08:00 Constitutional: Yes: No Distress, Calm Cardiovascular: Yes: Regular Rate and Rhythm Respiratory: Yes: Regular, CTA Bilaterally Gastrointestinal: Yes: Normal Bowel Sounds, Soft Musculoskeletal: Yes: WNL Extremities: Yes: WNL Neurological: Yes: Alert, Oriented Psychiatric: Yes: Alert, Oriented Labs: CBC, BMP 11/03/17 06:40 11/03/17 06:40 INR, PTT INR 1.38 (0.82-1.09) H 10/28/17 14:00 Assessment/Plan Problem List - Problems (1) Pneumonia Code(s): J18.9 - PNEUMONIA, UNSPECIFIED ORGANISM (2) Diabetes Code(s): E11.9 - TYPE 2 DIABETES MELLITUS WITHOUT COMPLICATIONS (3) HLD (hyperlipidemia) Code(s): E78.5 - HYPERLIPIDEMIA, UNSPECIFIED (4) Hypertension Code(s): I10 - ESSENTIAL (PRIMARY) HYPERTENSION (5) Pulmonary HTN Code(s): I27.2 - OTHER SECONDARY PULMONARY HYPERTENSION * DO NOT USE * MR i am a bit worried about the blood tinged sputum.patient does ahve pul HTN plan continue abx incentive crow rest as per primary
[2017-11-03] MEDS: traMADol HCL 50 MG TABLET PO PRN (20:15)
--- NOTE | 2017-11-03 23:31 | PN ---
Progress Note, Physician History of Present Illness: No further hemoptysis Pt states that he still feels slightly SOB - Current Medication List Current Medications: Active Medications Aspirin (Ecotrin -) 81 mg PO DAILY [facility] Last Admin: 11/03/17 10:38 Dose: 81 mg Atorvastatin Calcium (Lipitor -) 40 mg PO DAILY [facility] Last Admin: 11/03/17 10:37 Dose: 40 mg Escitalopram Oxalate (Lexapro -) 10 mg PO DAILY [facility] Last Admin: 11/03/17 10:38 Dose: 10 mg Furosemide (Lasix -) 80 mg PO DAILY [facility] Last Admin: 11/03/17 10:37 Dose: 80 mg Heparin Sodium (Porcine) (Heparin -) 5,000 unit SQ TID [facility] Last Admin: 11/03/17 21:15 Dose: 5,000 unit Azithromycin 250 mg/ Dextrose 250 mls @ 250 mls/hr IVPB DAILY [facility] Last Admin: 11/03/17 10:39 Dose: 250 mls/hr CEFTRIAXONE 1 G/50 ML PREMIX (Ceftriaxone 1 Gm-D5w Bag) 50 mls @ 100 mls/hr IVPB DAILY [facility] Last Admin: 11/03/17 10:37 Dose: 100 mls/hr Isosorbide Mononitrate (Imdur -) 60 mg PO DAILY [facility] Last Admin: 11/03/17 10:38 Dose: 60 mg Metoprolol Succinate (Toprol Xl -) 100 mg PO DAILY [facility] Last Admin: 11/03/17 10:38 Dose: 100 mg Metronidazole (Flagyl -) 250 mg PO TID [facility] Last Admin: 11/03/17 21:16 Dose: 250 mg Nystatin (Mycostatin Ointment -) 1 applic TP BID [facility] Last Admin: 11/03/17 21:16 Dose: 1 applic Pancrelipase (Creon Dr 36,000 Units Capsule) 1 cap PO TIDCM [facility] Last Admin: 11/03/17 17:31 Dose: 1 cap Pantoprazole Sodium (Protonix -) 40 mg PO DAILY [facility] Last Admin: 11/03/17 10:38 Dose: 40 mg Sitagliptin Phosphate (Januvia -) 100 mg PO DAILY@0700 [facility] Last Admin: 11/03/17 06:28 Dose: 100 mg Tamsulosin HCl (Flomax -) 0.4 mg PO DAILY@0830 [facility] Last Admin: 11/03/17 08:07 Dose: 0.4 mg Tramadol HCl (Ultram -) 50 mg PO Q12H PRN Last Admin: 11/03/17 20:15 Dose: 50 mg Zinc Oxide/Panthenol/Vitamin E (Balmex Cream -) 1 applic TP DAILY PRN PRN Reason: APPLY TO RECTUM Last Admin: 10/31/17 11:00 Dose: 1 applic - Objective Vital Signs: Vital Signs Temperature 98.2 F 11/03/17 20:39 Pulse Rate 80 11/03/17 20:39 Respiratory Rate 20 11/03/17 20:41 Blood Pressure 113/61 11/03/17 20:39 O2 Sat by Pulse Oximetry (%) 95 11/03/17 20:41 Constitutional: Yes: Well Nourished Neck: Yes: WNL, Supple Cardiovascular: Yes: WNL, Regular Rate and Rhythm Respiratory: Yes: Diminished Gastrointestinal: Yes: WNL, Normal Bowel Sounds, Soft, Abdomen, Obese Edema: No Labs: CBC, BMP 11/03/17 06:40 11/03/17 06:40 INR, PTT INR 1.38 (0.82-1.09) H 10/28/17 14:00 Problem List - Problems (1) Pneumonia Assessment/Plan: Cont IV ceftriaxone/zithro Cont nebulizers Encourage ambulation CT scan chest showed LLL consolidaiton As per pulmonary Code(s): J18.9 - PNEUMONIA, UNSPECIFIED ORGANISM (2) Abdominal discomfort Assessment/Plan: Pt on metronidazole GI consult as outpt Code(s): R10.9 - UNSPECIFIED ABDOMINAL PAIN (3) BPH (benign prostatic hyperplasia) Assessment/Plan: Cont flomax Code(s): N40.0 - BENIGN PROSTATIC HYPERPLASIA WITHOUT LOWER URINRY TRACT SYMP (4) Hypertension Code(s): I10 - ESSENTIAL (PRIMARY) HYPERTENSION (5) HLD (hyperlipidemia) Code(s): E78.5 - HYPERLIPIDEMIA, UNSPECIFIED (6) Morbid obesity Code(s): E66.01 - MORBID (SEVERE) OBESITY DUE TO EXCESS CALORIES (7) PSVT (paroxysmal supraventricular tachycardia) Assessment/Plan: Cont toprol Code(s): I47.1 - SUPRAVENTRICULAR TACHYCARDIA
[2017-11-04] MEDS: HEPARIN NA (PORCINE) 5,000 UNITS/ML 1ML VIAL SQ SCH ×3 (05:10→21:49)
[2017-11-04] MEDS: metroNIDAZOLE 250 MG TABLET PO SCH ×3 (05:10→21:49)
[2017-11-04] MEDS: SACUBITRIL/VALSARTAN 24 MG-26 MG TABLET PO SCH ×2 (06:03→17:52)
[2017-11-04] MEDS: sitaGLIPtin PHOSPHATE 100 MG TABLET (FP) PO SCH (06:03)
[2017-11-04] MEDS ORDERED: PATIENT'S OWN MEDICATION (NON-FORMULARY) (Alendronate Na [Fosamax (Weekly)] 70 MG) PO SCH (06:30)
[2017-11-04] MEDS: ALBUTEROL SO4 2.5/IPRATROPIUM 0.5 INH SOL 3 ML VIAL.NEB. NEB SCH (06:58)
--- NOTE | 2017-11-04 09:40 | PN ---
Progress Note, Physician Chief Complaint: feeling better TELE: NSR, IVCD. APCs. Couplets History of Present Illness: WBC coming down - Current Medication List Current Medications: Active Medications Albuterol/Ipratropium (Duoneb -) 1 amp NEB QIDR [facility] Last Admin: 11/04/17 06:58 Dose: 1 amp Aspirin (Ecotrin -) 81 mg PO DAILY [facility] Last Admin: 11/03/17 10:38 Dose: 81 mg Atorvastatin Calcium (Lipitor -) 40 mg PO DAILY [facility] Last Admin: 11/03/17 10:37 Dose: 40 mg Escitalopram Oxalate (Lexapro -) 10 mg PO DAILY [facility] Last Admin: 11/03/17 10:38 Dose: 10 mg Furosemide (Lasix -) 80 mg PO DAILY [facility] Last Admin: 11/03/17 10:37 Dose: 80 mg Heparin Sodium (Porcine) (Heparin -) 5,000 unit SQ TID [facility] Last Admin: 11/04/17 05:10 Dose: 5,000 unit Azithromycin 250 mg/ Dextrose 250 mls @ 250 mls/hr IVPB DAILY [facility] Last Admin: 11/03/17 10:39 Dose: 250 mls/hr CEFTRIAXONE 1 G/50 ML PREMIX (Ceftriaxone 1 Gm-D5w Bag) 50 mls @ 100 mls/hr IVPB DAILY [facility] Last Admin: 11/03/17 10:37 Dose: 100 mls/hr Isosorbide Mononitrate (Imdur -) 60 mg PO DAILY [facility] Last Admin: 11/03/17 10:38 Dose: 60 mg Metoprolol Succinate (Toprol Xl -) 100 mg PO DAILY [facility] Last Admin: 11/03/17 10:38 Dose: 100 mg Metronidazole (Flagyl -) 250 mg PO TID [facility] Last Admin: 11/04/17 05:10 Dose: 250 mg Nystatin (Mycostatin Ointment -) 1 applic TP BID [facility] Last Admin: 11/03/17 21:16 Dose: 1 applic Pancrelipase (Creon Dr 36,000 Units Capsule) 1 cap PO TIDCM [facility] Last Admin: 11/03/17 17:31 Dose: 1 cap Pantoprazole Sodium (Protonix -) 40 mg PO DAILY [facility] Last Admin: 11/03/17 10:38 Dose: 40 mg Sitagliptin Phosphate (Januvia -) 100 mg PO DAILY@0700 [facility] Last Admin: 11/04/17 06:03 Dose: 100 mg Tamsulosin HCl (Flomax -) 0.4 mg PO DAILY@0830 [facility] Last Admin: 11/03/17 08:07 Dose: 0.4 mg Tramadol HCl (Ultram -) 50 mg PO Q12H PRN Last Admin: 11/03/17 20:15 Dose: 50 mg Zinc Oxide/Panthenol/Vitamin E (Balmex Cream -) 1 applic TP DAILY PRN PRN Reason: APPLY TO RECTUM Last Admin: 10/31/17 11:00 Dose: 1 applic - Objective Vital Signs: Vital Signs Temperature 98.1 F 11/04/17 05:07 Pulse Rate 85 11/04/17 05:07 Respiratory Rate 20 11/04/17 05:07 Blood Pressure 113/65 11/04/17 05:07 O2 Sat by Pulse Oximetry (%) 95 11/03/17 20:41 Constitutional: Yes: No Distress Eyes: Yes: Conjunctiva Clear Cardiovascular: Yes: Regular Rate and Rhythm Respiratory: Yes: Other (decreased breath sounds b/l, no wheezing) Gastrointestinal: Yes: Soft, Abdomen, Obese (non-tender) Edema: No Neurological: Yes: Alert, Oriented ...Motor Strength: WNL Labs: CBC, BMP 11/03/17 06:40 11/03/17 06:40 INR, PTT INR 1.38 (0.82-1.09) H 10/28/17 14:00 Microbiology 10/28/17 13:45 Blood - Peripheral Venous Blood Culture - Final NO GROWTH AFTER 5 DAYS INCUBATION 10/28/17 13:45 Blood - Peripheral Venous Blood Culture - Final NO GROWTH AFTER 5 DAYS INCUBATION Laboratory Tests 10/30/17 11/03/17 11/03/17 08:00 06:40 06:40 WBC 18.5 H 9.0 Hgb 10.5 L Plt Count 249 D Potassium 3.9 Creatinine 0.9 Assessment/Plan Assessment/Plan (1) Pneumonia Assessment/Plan: on antibiotics. No further blood-tinged sputum Code(s): J18.9 - PNEUMONIA, UNSPECIFIED ORGANISM (2) Hypertension Code(s): I10 - ESSENTIAL (PRIMARY) HYPERTENSION -Currently well controlled (3) PSVT (paroxysmal supraventricular tachycardia) Assessment/Plan: -PAT/PSVT is chronic, cont. Toprol -Seems well controlled on tele last 24-48 hours Code(s): I47.1 - SUPRAVENTRICULAR TACHYCARDIA (4) Pulmonary HTN Code(s): I27.2 - OTHER SECONDARY PULMONARY HYPERTENSION * DO NOT USE * -Chronic, f/u Pulm as outpatient (5) Chronic combined systolic and diastolic CHF, NYHA class 4 Assessment/Plan: -Continue beta blockers, entresto. -Euvolemic, cont. PO Lasix
[2017-11-04] MEDS: LIPASE/PROTEASE/AMYLASE 36,000 UNIT CAPSULE PO SCH ×3 (10:24→17:52)
[2017-11-04] MEDS: AZITHROMYCIN IVPB 250 MG in DEXTROSE 5%-WATER - 250 ML IVPB SCH (10:25)
[2017-11-04] MEDS: CEFTRIAXONE 1 G/50 ML PREMIX 50 ML IVPB SCH (10:25)
[2017-11-04] MEDS: FUROSEMIDE 40 MG TABLET (FP) PO SCH (10:26)
[2017-11-04] MEDS: PANTOPRAZOLE 40 MG TABLET (FP) PO SCH (10:26)
[2017-11-04] MEDS: ESCITALOPRAM OXALATE 10 MG TABLET (FP) PO SCH (10:27)
[2017-11-04] MEDS: NYSTATIN 100000 UNIT/GM TOPICAL OINTMENT 15 GM TUBE TP SCH ×2 (10:27→21:51)
[2017-11-04] MEDS: TAMSULOSIN HCL 0.4 MG CAP.ER.24H (FP) PO SCH (10:27)
[2017-11-04] MEDS: ASPIRIN COATED 81 MG TABLET.EC PO SCH (10:27)
[2017-11-04] MEDS: ATORVASTATIN CA 40 MG TABLET (FP) PO SCH (10:27)
[2017-11-04] MEDS: ISOSORBIDE MONONITRATE 60 MG TAB.SR.24H (FP) PO SCH (10:27)
[2017-11-04] MEDS: METOPROLOL SUCCINATE 100 MG TAB.SR.24H (FP) PO SCH (10:27)
--- NOTE | 2017-11-04 11:08 | PN ---
Progress Note, Physician History of Present Illness: pulmonary alert,feeling better,-resp distress,less cough - Current Medication List Current Medications: Active Medications Albuterol/Ipratropium (Duoneb -) 1 amp NEB QIDR [facility] Last Admin: 11/04/17 06:58 Dose: 1 amp Aspirin (Ecotrin -) 81 mg PO DAILY [facility] Last Admin: 11/04/17 10:27 Dose: 81 mg Atorvastatin Calcium (Lipitor -) 40 mg PO DAILY [facility] Last Admin: 11/04/17 10:27 Dose: 40 mg Colchicine (Colcrys -) 0.6 mg PO DAILY [facility] Escitalopram Oxalate (Lexapro -) 10 mg PO DAILY [facility] Last Admin: 11/04/17 10:27 Dose: 10 mg Furosemide (Lasix -) 80 mg PO DAILY [facility] Last Admin: 11/04/17 10:26 Dose: 80 mg Heparin Sodium (Porcine) (Heparin -) 5,000 unit SQ TID [facility] Last Admin: 11/04/17 05:10 Dose: 5,000 unit Azithromycin 250 mg/ Dextrose 250 mls @ 250 mls/hr IVPB DAILY [facility] Last Admin: 11/04/17 10:25 Dose: 250 mls/hr CEFTRIAXONE 1 G/50 ML PREMIX (Ceftriaxone 1 Gm-D5w Bag) 50 mls @ 100 mls/hr IVPB DAILY [facility] Last Admin: 11/04/17 10:25 Dose: 100 mls/hr Isosorbide Mononitrate (Imdur -) 60 mg PO DAILY [facility] Last Admin: 11/04/17 10:27 Dose: 60 mg Metoprolol Succinate (Toprol Xl -) 100 mg PO DAILY [facility] Last Admin: 11/04/17 10:27 Dose: 100 mg Metronidazole (Flagyl -) 250 mg PO TID [facility] Last Admin: 11/04/17 05:10 Dose: 250 mg Nystatin (Mycostatin Ointment -) 1 applic TP BID [facility] Last Admin: 11/04/17 10:27 Dose: 1 applic Pancrelipase (Creon Dr 36,000 Units Capsule) 1 cap PO TIDCM [facility] Last Admin: 11/04/17 10:24 Dose: Not Given Pantoprazole Sodium (Protonix -) 40 mg PO DAILY [facility] Last Admin: 11/04/17 10:26 Dose: 40 mg Sitagliptin Phosphate (Januvia -) 100 mg PO DAILY@0700 [facility] Last Admin: 12/27/17 06:03 Dose: 100 mg Tamsulosin HCl (Flomax -) 0.4 mg PO DAILY@0830 [facility] Last Admin: 11/04/17 10:27 Dose: 0.4 mg Tramadol HCl (Ultram -) 50 mg PO Q12H PRN Last Admin: 11/03/17 20:15 Dose: 50 mg Zinc Oxide/Panthenol/Vitamin E (Balmex Cream -) 1 applic TP DAILY PRN PRN Reason: APPLY TO RECTUM Last Admin: 10/31/17 11:00 Dose: 1 applic - Objective Vital Signs: Vital Signs Temperature 98.1 F 11/04/17 05:07 Pulse Rate 85 11/04/17 05:07 Respiratory Rate 20 11/04/17 05:07 Blood Pressure 113/65 11/04/17 05:07 O2 Sat by Pulse Oximetry (%) 95 11/03/17 20:41 Constitutional: Yes: Calm, Obese Eyes: Yes: WNL HENT: Yes: WNL Neck: Yes: WNL Cardiovascular: Yes: Regular Rate and Rhythm, S1, S2 Respiratory: Yes: Diminished, Rhonchi (few scattered rhonchi) Gastrointestinal: Yes: Normal Bowel Sounds, Soft Extremities: Yes: WNL Edema: Yes Labs: Assessment/Plan A/P Pneumonia LLL Pulmonary HTN Mitral Regurgitation Chronic Hypoxic Respiratory Failure DM CAD - antibiotics - O2 to keep SpO2 >90% - inhaled bronchodilators - continue cardiac meds - DVT prophylaxis Problem List - Problems (1) Pneumonia Code(s): J18.9 - PNEUMONIA, UNSPECIFIED ORGANISM (2) Diabetes Code(s): E11.9 - TYPE 2 DIABETES MELLITUS WITHOUT COMPLICATIONS (3) HLD (hyperlipidemia) Code(s): E78.5 - HYPERLIPIDEMIA, UNSPECIFIED (4) Hypertension Code(s): I10 - ESSENTIAL (PRIMARY) HYPERTENSION (5) Pulmonary HTN Code(s): I27.2 - OTHER SECONDARY PULMONARY HYPERTENSION * DO NOT USE *
[2017-11-04] MEDS: COLCHICINE 0.6 MG TABLET (FP) PO SCH (11:16)
--- NOTE | 2017-11-04 15:57 | HOL ---
Hook-up date: 2017-10-29 14:30:00 Duration: 15:54:00 Test Indications: ARRHYTHMIA Medications: [id number] QRS complexes 2309 Ventricular ectopics which represent 2 % of total QRS comp. 225 Supraventricular ectopics which represent <1 % of total QRS comp. * Paced QRS complexs which represent % of total QRS comp. 1 % of Time Classified as Noise VENTRICULAR ECTOPY 1747 Isolated 18 Bigeminal Cycles 204 Couplets 44 Runs 154 Beats in Runs 9 Beats LONGEST at 185 BPM at 03:08:42 2017-10-30 3 Beats FASTEST at 214 BPM at 04:44:21 2017-10-30 SUPRAVENTRICULAR ECTOPY 151 Isolated 18 Couplets 11 Runs 38 Beats in Runs 6 Beats LONGEST at 145 BPM at 18:39:55 2017-10-29 3 Beats FASTEST at 172 BPM at 15:29:23 2017-10-29 HEART RATES 55 MIN at 05:15:18 2017-10-30 109 AVG 200 MAX at 17:39:09 2017-10-29 LONGEST RR 1.488 secs at 16:05:48 2017-10-29 HOLTER RAN FOR ONLY 15 HOURS AND 54 MINUTES DUE TO ARTIFACT 1. BASELINE EKG: SINUS RHYTHM WITH ATRIAL PREMATURE CONTRACTIONS; RIGHT BUNDLE-BRANCH BLOCK; LEFT ANTERIOR FASCICULAR BLOCK, SEPTAL INFARCT HOLTER: THE UNDERLYING RHYTHM IS SINUS WITH FREQUENT ATRIAL PREMATURE CONTRACTIONS. MULTIPLE RUNS OF PSVT AND PAT. (NSVT AND ATRIAL FIBRILLATION , WHILE LESS LIKELY CANNOT BE ENTIRELY EXCLUDED, SUGGEST LONGER-TERM MONITORING. Confirmed by TEE TORRES, CARMEL ([id number]), staff editor ESHA CHRIS ([id number]) on 11/04/2017 3:56:12 PM Referred By: Melanie KIRAN Overread By: CARMEL OLIVEIRA MD
--- NOTE | 2017-11-04 18:01 | PN ---
Progress Note, Physician History of Present Illness: patient doing well no complaints no blood anymore in sputum breathing better - Current Medication List Current Medications: Active Medications Albuterol/Ipratropium (Duoneb -) 1 amp NEB QIDR [facility] Last Admin: 11/04/17 06:58 Dose: 1 amp Aspirin (Ecotrin -) 81 mg PO DAILY [facility] Last Admin: 11/04/17 10:27 Dose: 81 mg Atorvastatin Calcium (Lipitor -) 40 mg PO DAILY [facility] Last Admin: 11/04/17 10:27 Dose: 40 mg Colchicine (Colcrys -) 0.6 mg PO DAILY [facility] Last Admin: 11/04/17 11:16 Dose: 0.6 mg Escitalopram Oxalate (Lexapro -) 10 mg PO DAILY [facility] Last Admin: 11/04/17 10:27 Dose: 10 mg Furosemide (Lasix -) 80 mg PO DAILY [facility] Last Admin: 11/04/17 10:26 Dose: 80 mg Heparin Sodium (Porcine) (Heparin -) 5,000 unit SQ TID [facility] Last Admin: 11/04/17 15:12 Dose: 5,000 unit Azithromycin 250 mg/ Dextrose 250 mls @ 250 mls/hr IVPB DAILY [facility] Last Admin: 11/04/17 10:25 Dose: 250 mls/hr CEFTRIAXONE 1 G/50 ML PREMIX (Ceftriaxone 1 Gm-D5w Bag) 50 mls @ 100 mls/hr IVPB DAILY [facility] Last Admin: 11/04/17 10:25 Dose: 100 mls/hr Isosorbide Mononitrate (Imdur -) 60 mg PO DAILY [facility] Last Admin: 11/04/17 10:27 Dose: 60 mg Metoprolol Succinate (Toprol Xl -) 100 mg PO DAILY [facility] Last Admin: 11/04/17 10:27 Dose: 100 mg Metronidazole (Flagyl -) 250 mg PO TID [facility] Last Admin: 11/04/17 15:11 Dose: 250 mg Nystatin (Mycostatin Ointment -) 1 applic TP BID [facility] Last Admin: 11/04/17 10:27 Dose: 1 applic Pancrelipase (Creon Dr 36,000 Units Capsule) 1 cap PO TIDCM [facility] Last Admin: 11/04/17 17:52 Dose: 1 cap Pantoprazole Sodium (Protonix -) 40 mg PO DAILY [facility] Last Admin: 11/04/17 10:26 Dose: 40 mg Sitagliptin Phosphate (Januvia -) 100 mg PO DAILY@0700 [facility] Last Admin: 11/04/17 06:03 Dose: 100 mg Tamsulosin HCl (Flomax -) 0.4 mg PO DAILY@0830 [facility] Last Admin: 11/04/17 10:27 Dose: 0.4 mg Tramadol HCl (Ultram -) 50 mg PO Q12H PRN Last Admin: 11/03/17 20:15 Dose: 50 mg Zinc Oxide/Panthenol/Vitamin E (Balmex Cream -) 1 applic TP DAILY PRN PRN Reason: APPLY TO RECTUM Last Admin: 10/31/17 11:00 Dose: 1 applic - Objective Vital Signs: Vital Signs Temperature 98.4 F 11/04/17 08:00 Pulse Rate 78 11/04/17 12:15 Respiratory Rate 20 11/04/17 08:00 Blood Pressure 145/65 11/04/17 08:00 O2 Sat by Pulse Oximetry (%) 98 11/04/17 12:15 Constitutional: Yes: No Distress, Calm Cardiovascular: Yes: Regular Rate and Rhythm Respiratory: Yes: Regular, On Nasal O2 Gastrointestinal: Yes: Normal Bowel Sounds, Soft Musculoskeletal: Yes: WNL Extremities: Yes: WNL Neurological: Yes: Alert, Oriented Psychiatric: Yes: Alert, Oriented Labs: CBC, BMP 11/03/17 06:40 11/03/17 06:40 INR, PTT INR 1.38 (0.82-1.09) H 10/28/17 14:00 Assessment/Plan Problem List - Problems (1) Pneumonia Code(s): J18.9 - PNEUMONIA, UNSPECIFIED ORGANISM (2) Diabetes Code(s): E11.9 - TYPE 2 DIABETES MELLITUS WITHOUT COMPLICATIONS (3) HLD (hyperlipidemia) Code(s): E78.5 - HYPERLIPIDEMIA, UNSPECIFIED (4) Hypertension Code(s): I10 - ESSENTIAL (PRIMARY) HYPERTENSION (5) Pulmonary HTN Code(s): I27.2 - OTHER SECONDARY PULMONARY HYPERTENSION * DO NOT USE * MR plan continue abx switched to oral abx from tomorrow stopped zithro augmentin for another 4 days
[2017-11-04] MEDS ORDERED: PT OWN MED DRAWER 7, Y5N ONE (20:37)
[2017-11-05] MEDS: ALBUTEROL SO4 2.5/IPRATROPIUM 0.5 INH SOL 3 ML VIAL.NEB. NEB SCH ×3 (00:02→11:30)
--- NOTE | 2017-11-05 01:52 | PN ---
Progress Note, Physician History of Present Illness: Pt seen and examined 11/04/17 however note was entered late - Current Medication List Current Medications: Active Medications Albuterol/Ipratropium (Duoneb -) 1 amp NEB QIDR [facility] Last Admin: 11/05/17 00:02 Dose: 1 amp Amoxicillin/Clavulanate Potassium (Augmentin - 875mg Tablet) 1 tab PO BID@0800, 1730 [facility] Aspirin (Ecotrin -) 81 mg PO DAILY [facility] Last Admin: 11/04/17 10:27 Dose: 81 mg Atorvastatin Calcium (Lipitor -) 40 mg PO DAILY [facility] Last Admin: 11/04/17 10:27 Dose: 40 mg Colchicine (Colcrys -) 0.6 mg PO DAILY [facility] Last Admin: 11/04/17 11:16 Dose: 0.6 mg Escitalopram Oxalate (Lexapro -) 10 mg PO DAILY [facility] Last Admin: 11/04/17 10:27 Dose: 10 mg Furosemide (Lasix -) 80 mg PO DAILY [facility] Last Admin: 11/04/17 10:26 Dose: 80 mg Heparin Sodium (Porcine) (Heparin -) 5,000 unit SQ TID [facility] Last Admin: 11/04/17 21:49 Dose: 5,000 unit Isosorbide Mononitrate (Imdur -) 60 mg PO DAILY [facility] Last Admin: 11/04/17 10:27 Dose: 60 mg Metoprolol Succinate (Toprol Xl -) 100 mg PO DAILY [facility] Last Admin: 11/04/17 10:27 Dose: 100 mg Metronidazole (Flagyl -) 250 mg PO TID [facility] Last Admin: 11/04/17 21:49 Dose: 250 mg Nystatin (Mycostatin Ointment -) 1 applic TP BID [facility] Last Admin: 11/04/17 21:51 Dose: 1 applic Pancrelipase (Creon Dr 36,000 Units Capsule) 1 cap PO TIDCM [facility] Last Admin: 11/04/17 17:52 Dose: 1 cap Pantoprazole Sodium (Protonix -) 40 mg PO DAILY [facility] Last Admin: 11/04/17 10:26 Dose: 40 mg Sitagliptin Phosphate (Januvia -) 100 mg PO DAILY@0700 [facility] Last Admin: 11/04/17 06:03 Dose: 100 mg Tamsulosin HCl (Flomax -) 0.4 mg PO DAILY@0830 [facility] Last Admin: 11/04/17 10:27 Dose: 0.4 mg Tramadol HCl (Ultram -) 50 mg PO Q12H PRN Last Admin: 11/03/17 20:15 Dose: 50 mg Zinc Oxide/Panthenol/Vitamin E (Balmex Cream -) 1 applic TP DAILY PRN PRN Reason: APPLY TO RECTUM Last Admin: 10/31/17 11:00 Dose: 1 applic - Objective Vital Signs: Vital Signs Temperature 98.0 F 11/04/17 20:57 Pulse Rate 86 11/04/17 20:57 Respiratory Rate 18 11/04/17 20:58 Blood Pressure 99/68 11/04/17 20:57 O2 Sat by Pulse Oximetry (%) 98 11/04/17 20:58 Constitutional: Yes: Well Nourished HENT: Yes: WNL Neck: Yes: WNL, Supple Cardiovascular: Yes: WNL, Regular Rate and Rhythm Respiratory: Yes: WNL, Regular, CTA Bilaterally Gastrointestinal: Yes: WNL, Normal Bowel Sounds, Soft Edema: No Labs: CBC, BMP 11/03/17 06:40 11/03/17 06:40 INR, PTT INR 1.38 (0.82-1.09) H 10/28/17 14:00 Problem List - Problems (1) Pneumonia Assessment/Plan: Change to po antibx in am DC planning for am Cont nebulizers Encourage ambulation CT scan chest showed LLL consolidaiton Code(s): J18.9 - PNEUMONIA, UNSPECIFIED ORGANISM (2) Abdominal discomfort Assessment/Plan: Resolved Code(s): R10.9 - UNSPECIFIED ABDOMINAL PAIN (3) BPH (benign prostatic hyperplasia) Assessment/Plan: Cont flomax Code(s): N40.0 - BENIGN PROSTATIC HYPERPLASIA WITHOUT LOWER URINRY TRACT SYMP (4) Hypertension Assessment/Plan: BP stable Cont antihypertensives Code(s): I10 - ESSENTIAL (PRIMARY) HYPERTENSION (5) HLD (hyperlipidemia) Code(s): E78.5 - HYPERLIPIDEMIA, UNSPECIFIED (6) Morbid obesity Code(s): E66.01 - MORBID (SEVERE) OBESITY DUE TO EXCESS CALORIES (7) PSVT (paroxysmal supraventricular tachycardia) Code(s): I47.1 - SUPRAVENTRICULAR TACHYCARDIA
[2017-11-05] MEDS: metroNIDAZOLE 250 MG TABLET PO SCH (06:39)
[2017-11-05] MEDS: HEPARIN NA (PORCINE) 5,000 UNITS/ML 1ML VIAL SQ SCH (06:39)
[2017-11-05] MEDS: sitaGLIPtin PHOSPHATE 100 MG TABLET (FP) PO SCH (06:39)
[2017-11-05] MEDS: SACUBITRIL/VALSARTAN 24 MG-26 MG TABLET PO SCH (06:40)
[2017-11-05] MEDS ORDERED: PT OWN MED DRAWER 7, Y5N ONE ×2 (06:49→09:05)
[2017-11-05] MEDS ORDERED: AMOX TR/POT CLAV 875MG/125MG TABLETS (FP) PO SCH (08:00)
[2017-11-05] MEDS: ESCITALOPRAM OXALATE 10 MG TABLET (FP) PO SCH (09:19)
[2017-11-05] MEDS: ISOSORBIDE MONONITRATE 60 MG TAB.SR.24H (FP) PO SCH (09:19)
[2017-11-05] MEDS: COLCHICINE 0.6 MG TABLET (FP) PO SCH (09:20)
[2017-11-05] MEDS: PANTOPRAZOLE 40 MG TABLET (FP) PO SCH (09:20)
[2017-11-05] MEDS: METOPROLOL SUCCINATE 100 MG TAB.SR.24H (FP) PO SCH (09:20)
[2017-11-05] MEDS: TAMSULOSIN HCL 0.4 MG CAP.ER.24H (FP) PO SCH (09:20)
[2017-11-05] MEDS: ASPIRIN COATED 81 MG TABLET.EC PO SCH (09:20)
[2017-11-05] MEDS: ATORVASTATIN CA 40 MG TABLET (FP) PO SCH (09:20)
[2017-11-05] MEDS: LIPASE/PROTEASE/AMYLASE 36,000 UNIT CAPSULE PO SCH (09:22)
[2017-11-05] MEDS: FUROSEMIDE 40 MG TABLET (FP) PO SCH (09:27)
[2017-11-05] MEDS: NYSTATIN 100000 UNIT/GM TOPICAL OINTMENT 15 GM TUBE TP SCH (09:28)
--- NOTE | 2017-11-05 10:22 | PN ---
Progress Note, Physician History of Present Illness: seen and examined today in nad. states he is feeling better and feels ready to go home. no new complaints. no overnight events. - Current Medication List Current Medications: Active Medications Albuterol/Ipratropium (Duoneb -) 1 amp NEB QIDR [facility] Last Admin: 11/05/17 06:46 Dose: 1 amp Amoxicillin/Clavulanate Potassium (Augmentin - 875mg Tablet) 1 tab PO BID@0800, 1730 [facility] Last Admin: 11/05/17 09:19 Dose: 1 tab Aspirin (Ecotrin -) 81 mg PO DAILY [facility] Last Admin: 11/05/17 09:20 Dose: 81 mg Atorvastatin Calcium (Lipitor -) 40 mg PO DAILY [facility] Last Admin: 11/05/17 09:20 Dose: 40 mg Colchicine (Colcrys -) 0.6 mg PO DAILY [facility] Last Admin: 11/05/17 09:20 Dose: 0.6 mg Escitalopram Oxalate (Lexapro -) 10 mg PO DAILY [facility] Last Admin: 11/05/17 09:19 Dose: 10 mg Furosemide (Lasix -) 80 mg PO DAILY [facility] Last Admin: 11/05/17 09:27 Dose: Not Given Heparin Sodium (Porcine) (Heparin -) 5,000 unit SQ TID [facility] Last Admin: 11/05/17 06:39 Dose: 5,000 unit Isosorbide Mononitrate (Imdur -) 60 mg PO DAILY [facility] Last Admin: 11/05/17 09:19 Dose: 60 mg Metoprolol Succinate (Toprol Xl -) 100 mg PO DAILY [facility] Last Admin: 11/05/17 09:20 Dose: 100 mg Metronidazole (Flagyl -) 250 mg PO TID [facility] Last Admin: 11/05/17 06:39 Dose: 250 mg Nystatin (Mycostatin Ointment -) 1 applic TP BID [facility] Last Admin: 11/05/17 09:28 Dose: 1 applic Pancrelipase (Creon Dr 36,000 Units Capsule) 1 cap PO TIDCM [facility] Last Admin: 11/05/17 09:22 Dose: 1 cap Pantoprazole Sodium (Protonix -) 40 mg PO DAILY [facility] Last Admin: 11/05/17 09:20 Dose: 40 mg Sitagliptin Phosphate (Januvia -) 100 mg PO DAILY@0700 [facility] Last Admin: 11/05/17 06:39 Dose: 100 mg Tamsulosin HCl (Flomax -) 0.4 mg PO DAILY@0830 [facility] Last Admin: 11/05/17 09:20 Dose: 0.4 mg Tramadol HCl (Ultram -) 50 mg PO Q12H PRN Last Admin: 11/03/17 20:15 Dose: 50 mg Zinc Oxide/Panthenol/Vitamin E (Balmex Cream -) 1 applic TP DAILY PRN PRN Reason: APPLY TO RECTUM Last Admin: 10/31/17 11:00 Dose: 1 applic - Objective Vital Signs: Vital Signs Temperature 98.8 F 11/05/17 05:52 Pulse Rate 79 11/05/17 05:52 Respiratory Rate 18 11/05/17 05:52 Blood Pressure 152/77 11/05/17 05:52 O2 Sat by Pulse Oximetry (%) 98 11/04/17 20:58 Constitutional: Yes: No Distress, Calm, Obese Eyes: Yes: Conjunctiva Clear, EOM Intact, PERRL HENT: Yes: Atraumatic, Normocephalic Neck: Yes: Supple, Trachea Midline Cardiovascular: Yes: Pulse Irregular, S1, S2. No: Bradycardia, Tachycardia, Bruit, JVD, Gallop, Murmur, Rub, S3, S4, Varicosities Respiratory: Yes: Regular, Diminished, On Nasal O2, Rhonchi. No: Rales, SOB, Wheezes Gastrointestinal: Yes: Normal Bowel Sounds, Soft. No: Distention, Tenderness Musculoskeletal: Yes: WNL Extremities: Yes: WNL Edema: LLE: Trace, RLE: Trace Peripheral Pulses WNL: Yes Peripheral Pulses: Left Doralis Pedis: 2+, Right Dorsalis Pedis: 2+ Neurological: Yes: Alert, Oriented Psychiatric: Yes: Alert, Oriented Labs: CBC, BMP 11/03/17 06:40 11/03/17 06:40 INR, PTT INR 1.38 (0.82-1.09) H 10/28/17 14:00 - ....Imaging Chest X-ray: Report Reviewed, Image Reviewed EKG: Report Reviewed, Image Reviewed Other: Report Reviewed, Image Reviewed (tele-nsr, frequent apcs and pvcs, V couplets) Assessment/Plan 76-year-old man with the history of hypertension, hyperlipidemia, diabetes type II, CAD with prior stents, chronic combined systolic and diastolic heart failure , pulmonary hypertension, paroxysmal SVT, chronic shortness of breath, COPD, pulmonary hypertension,admitted with PNA. 1. Pneumonia -receiving Abx to be transitioned to po on discharge 2. Arrhythmia-h/o PSVT, HR adequately controlled -cont Toprol Xl 100mg daily -outpatient f/up and will consider further event monitoring as outpatient 3. Shortness of breath COPD, pulmonary hypertension on home O2 as well as chronic combined systolic and diastolic heart failure. - PNA and chronic combined systolic/diastolic CHF - Currently overall euvolemic with trace Le edema - Continue Lasix 80 mg po daily and Entresto for now. - as outpatient Need to clarify if he was taking Adcirca as he was previously for his pulmonary hypertension. 4.Coronary artery disease with prior stent - Currently stable. - Continue aspirin, statin, and beta quirino, imdur. 5. Hypertension Adequately controlled currently -Continue current medical regimen -outpatient f/up
--- NOTE | 2017-11-05 12:16 | PN ---
Progress Note, Physician History of Present Illness: pulmonary alert,sitting up in bed,nad,dyspnea improving - Current Medication List Current Medications: Active Medications Albuterol/Ipratropium (Duoneb -) 1 amp NEB QIDR [facility] Last Admin: 11/05/17 06:46 Dose: 1 amp Amoxicillin/Clavulanate Potassium (Augmentin - 875mg Tablet) 1 tab PO BID@0800, 1730 [facility] Last Admin: 11/05/17 09:19 Dose: 1 tab Aspirin (Ecotrin -) 81 mg PO DAILY [facility] Last Admin: 11/05/17 09:20 Dose: 81 mg Atorvastatin Calcium (Lipitor -) 40 mg PO DAILY [facility] Last Admin: 11/05/17 09:20 Dose: 40 mg Colchicine (Colcrys -) 0.6 mg PO DAILY [facility] Last Admin: 11/05/17 09:20 Dose: 0.6 mg Escitalopram Oxalate (Lexapro -) 10 mg PO DAILY [facility] Last Admin: 11/05/17 09:19 Dose: 10 mg Furosemide (Lasix -) 80 mg PO DAILY [facility] Last Admin: 11/05/17 09:27 Dose: Not Given Heparin Sodium (Porcine) (Heparin -) 5,000 unit SQ TID [facility] Last Admin: 11/05/17 06:39 Dose: 5,000 unit Isosorbide Mononitrate (Imdur -) 60 mg PO DAILY [facility] Last Admin: 11/05/17 09:19 Dose: 60 mg Metoprolol Succinate (Toprol Xl -) 100 mg PO DAILY [facility] Last Admin: 11/05/17 09:20 Dose: 100 mg Metronidazole (Flagyl -) 250 mg PO TID [facility] Last Admin: 11/05/17 06:39 Dose: 250 mg Nystatin (Mycostatin Ointment -) 1 applic TP BID [facility] Last Admin: 11/05/17 09:28 Dose: 1 applic Pancrelipase (Creon Dr 36,000 Units Capsule) 1 cap PO TIDCM [facility] Last Admin: 11/05/17 09:22 Dose: 1 cap Pantoprazole Sodium (Protonix -) 40 mg PO DAILY [facility] Last Admin: 11/05/17 09:20 Dose: 40 mg Sitagliptin Phosphate (Januvia -) 100 mg PO DAILY@0700 [facility] Last Admin: 11/05/17 06:39 Dose: 100 mg Tamsulosin HCl (Flomax -) 0.4 mg PO DAILY@0830 [facility] Last Admin: 11/05/17 09:20 Dose: 0.4 mg Tramadol HCl (Ultram -) 50 mg PO Q12H PRN Last Admin: 11/03/17 20:15 Dose: 50 mg Zinc Oxide/Panthenol/Vitamin E (Balmex Cream -) 1 applic TP DAILY PRN PRN Reason: APPLY TO RECTUM Last Admin: 10/31/17 11:00 Dose: 1 applic - Objective Vital Signs: Vital Signs Temperature 98.8 F 11/05/17 05:52 Pulse Rate 79 11/05/17 05:52 Respiratory Rate 18 11/05/17 05:52 Blood Pressure 152/77 11/05/17 05:52 O2 Sat by Pulse Oximetry (%) 98 11/04/17 20:58 Constitutional: Yes: Calm, Obese Eyes: Yes: WNL HENT: Yes: WNL Neck: Yes: WNL Cardiovascular: Yes: Regular Rate and Rhythm, S1, S2 Respiratory: Yes: Rhonchi (few rhonchi) Gastrointestinal: Yes: Normal Bowel Sounds, Soft Extremities: Yes: WNL Edema: Yes Labs: CBC, BMP 11/03/17 06:40 11/03/17 06:40 INR, PTT INR 1.38 (0.82-1.09) H 10/28/17 14:00 Assessment/Plan A/P Pneumonia LLL Pulmonary HTN Mitral Regurgitation Chronic Hypoxic Respiratory Failure DM CAD - antibiotics - O2 to keep SpO2 >90% - inhaled bronchodilators - continue cardiac meds - DVT prophylaxis - 02 sat at rest and exercise on ra Problem List - Problems (1) Pneumonia Code(s): J18.9 - PNEUMONIA, UNSPECIFIED ORGANISM (2) Diabetes Code(s): E11.9 - TYPE 2 DIABETES MELLITUS WITHOUT COMPLICATIONS (3) HLD (hyperlipidemia) Code(s): E78.5 - HYPERLIPIDEMIA, UNSPECIFIED (4) Hypertension Code(s): I10 - ESSENTIAL (PRIMARY) HYPERTENSION (5) Pulmonary HTN Code(s): I27.2 - OTHER SECONDARY PULMONARY HYPERTENSION * DO NOT USE *
[2017-11-05 13:39] VITALS: PULSE 104
[2017-11-05 16:00] VITALS: BP 118/67; TEMP 98.4
--- NOTE | 2017-11-06 16:57 | DS ---
Physical Examination Vital Signs: Vital Signs Temperature 98.4 F 11/05/17 10:00 Pulse Rate 104 H 11/05/17 13:33 Respiratory Rate 18 11/05/17 10:00 Blood Pressure 118/67 11/05/17 10:00 O2 Sat by Pulse Oximetry (%) 93 L 11/05/17 13:33 Labs: CBC, BMP 11/03/17 06:40 11/03/17 06:40 Discharge Summary Reason For Visit: PNEUMONIA Condition: Good - Instructions Diet, Activity, Other Instructions: 2 gram sodium and 2200 [address] diabetic diet See Dr Friedman in 1 week [phone] Referrals: Jeanette Bae MD [Staff Physician] - Rivera Gomes MD [Staff Physician] - Jaime Alvarado MD [Staff Physician] - Hung Friedman MD [Primary Care Provider] - Disposition: HOME - Home Medications Comprehensive Discharge Medication List: Ambulatory Orders Alendronate Na [Fosamax (Weekly)] 70 mg PO WE 01/29/17 Aspirin [Ecotrin] 81 mg PO HS 01/29/17 Atorvastatin Calcium 40 mg PO DAILY 01/29/17 Escitalopram Oxalate [Lexapro -] 10 mg PO DAILY 01/29/17 Furosemide [Lasix] 80 mg PO DAILY 01/29/17 Isosorbide Mononitrate [Imdur -] 60 mg PO DAILY 01/29/17 Linagliptin [Tradjenta] 5 mg PO DAILY 01/29/17 Sacubitril/Valsartan [Entresto 24 mg-26 mg Tablet] 1 tab PO BID 01/29/17 Tamsulosin HCl [Flomax -] 0.4 mg PO HS 01/29/17 Amox-Tr/K Cl [Augmentin 875-125mg Tablet -] 1 tab PO BID@0800,1730 #14 tablet Aspirin Coated [Ecotrin -] 81 mg PO DAILY tablet.ec 11/05/17 Colchicine [Colcrys -] 0.6 mg PO DAILY #30 tablet 11/05/17 Lipase/Protease/Amylase [Figueroa Browning 36,000 Units Capsule] 1 cap PO TIDCM #90 capsule. 11/05/17 Metoprolol Succinate [Toprol XL -] 100 mg PO DAILY #30 tab.sr.24h 11/05/17 Nystatin Ointment [Mycostatin Ointment -] 1 applic TP BID #60 applic 11/05/17 Pantoprazole Sodium [Protonix -] 40 mg PO DAILY #30 tablet.ec 11/05/17 Sacubitril/Valsartan [Entresto 24 mg-26 mg Tablet] 1 tab PO BID@0700,1800 #30 tablet 11/05/17 Tamsulosin HCl [Flomax -] 0.4 mg PO DAILY@0830 #30 cap.er.24h 11/05/17
== END 2017-11-05 14:03 | disposition home or self-care (01) | DRG 194 ==
LOC: JER 12:32 → JERBED 14:48 → J8W 10-29 15:00 → J4W 10-31 18:58
PROVIDERS: ADMIT Internal Medicine; ATTEND Internal Medicine
DX: J18.9 Pneumonia, unspecified organism (principal); I50.42 Chronic combined systolic (congestive) and diastolic (congestive) heart failure; J96.11 Chronic respiratory failure with hypoxia; I45.2 Bifascicular block; I47.1 Supraventricular tachycardia; I42.9 Cardiomyopathy, unspecified; I11.0 Hypertensive heart disease with heart failure; I27.20 Pulmonary hypertension, unspecified; E78.5 Hyperlipidemia, unspecified; E11.9 Type 2 diabetes mellitus without complications; I25.10 Atherosclerotic heart disease of native coronary artery without angina pectoris; Z95.5 Presence of coronary angioplasty implant and graft; I34.0 Nonrheumatic mitral (valve) insufficiency; I36.1 Nonrheumatic tricuspid (valve) insufficiency; J44.9 Chronic obstructive pulmonary disease, unspecified; E66.9 Obesity, unspecified; Z68.35 Body mass index [BMI] 35.0-35.9, adult; R14.0 Abdominal distension (gaseous); K59.00 Constipation, unspecified; R68.81 Early satiety; E83.39 Other disorders of phosphorus metabolism; Z79.84 Long term (current) use of oral hypoglycemic drugs
CPT/HCPCS: 36415; 71010-TC; 71250-TC; 80048; 80053; 80061; 81003; 81015; 82550; 82553; 83605; 83721; 83735; 83880; 84100; 84478; 84484; 84550; 85025; 85610; 85730; 87040; 87086; 87899; 93005; 93010; 93225; 93226; 94640; 94761; 99285-25; J1644

== ENCOUNTER 2019-02-24 05:14 | Inpatient (IN) | payer OTHER ==
--- NOTE | 2019-02-24 05:19 | PDOC ---
History of Present Illness - General Stated Complaint: FALL Time Seen by Provider: 02/24/19 05:19 History Source: Patient Exam Limitations: No Limitations - History of Present Illness Initial Comments: 02/24/19 05:30 78 year old male with PMH CAD, HTN, HLD, pulmonary HTN on 2L O2, prostate CA presented to ED for fall. He stated he accidentally rolled out of bed, faceplanting onto the ground, and was unable to get himself up off the ground. He denied LOC or vomiting. He complained of left sided anterior chest wall pain , neck pain, right shoulder pain. Allergies: NKDA Past History - Past Medical History Allergies/Adverse Reactions: Allergies Allergy/AdvReac Type Severity Reaction Status Date / Time No Known Allergies Allergy Unverified 02/24/19 05:18 Home Medications: Ambulatory Orders Alendronate Na [Fosamax (Weekly)] 70 mg PO WE 01/29/17 Atorvastatin Calcium 40 mg PO DAILY 01/29/17 Escitalopram Oxalate [Lexapro -] 10 mg PO DAILY 01/29/17 Isosorbide Mononitrate [Imdur -] 60 mg PO DAILY 01/29/17 Linagliptin [Tradjenta] 5 mg PO DAILY 01/29/17 Sacubitril/Valsartan [Entresto 24 mg-26 mg Tablet] 1 tab PO BID 01/29/17 Aspirin Coated [Ecotrin -] 81 mg PO DAILY tablet.ec 11/05/17 Tamsulosin HCl [Flomax -] 0.4 mg PO DAILY@0830 #30 cap.er.24h 11/05/17 Amlodipine Besylate 5 mg PO DAILY 05/04/18 Furosemide [Lasix -] 40 mg PO DAILY 05/04/18 Metoprolol Succinate 50 mg PO DAILY 05/04/18 Insulin Glargine,Hum.rec.anlog [Basaglar Kwikpen U-100] 20 unit SQ DAILY Cardiac Disorders: Yes (cardiomyopathy,cad) COPD: Yes (3L) CHF: Yes Diabetes: Yes HTN: Yes Hypercholesterolemia: Yes - Surgical History Cardiac Surgery: Yes (STENT PLACEMENT) - Immunization History Immunization Up to Date: No - Suicide/Smoking/Psychosocial Hx Smoking Status: No Smoking History: Never smoked Have you smoked in the past 12 months: No Number of Cigarettes Smoked Daily: 0 Hx Alcohol Use: No Drug/Substance Use Hx: No Substance Use Type: None Hx Substance Use Treatment: No Review of Systems - Review of Systems Able to Perform ROS?: Yes Comments:: 02/24/19 05:31 General: denied fever, chills, generalized weakness. HEENT: denied sore throat, rhinorrhea, ear pain. Neck: admitted to neck pain. Heart: admitted to chest pain. denied palpitations, syncope, diaphoresis. Respiratory: admitted to shortness of breath. denied cough, sputum production, hemoptysis. Abdomen: denied abdominal pain, nausea, vomiting, diarrhea, constipation, blood in stool. : denied dysuria, increased urinary frequency, hematuria, urinary incontinence , flank pain. Back: denied back pain. Musculoskeletal: admitted to right shoulder pain. Neurological: denied headache, dizziness, numbness, tingling, weakness. Skin: denied rash, laceration, abrasion. *Physical Exam - Physical Exam Comments: 02/24/19 05:32 Constitutional: Well-nourished, Well-developed, appearing stated age. HEENT: head is normocephalic, atraumatic. EOMI. PERRLA. no scalp hematomas. no facial bone tenderness bilaterally. Neck: supple. Full ROM. no midline c-spine tenderness. Heart: regular rhythm. no murmurs, rubs or gallops. Lungs: clear to auscultation bilaterally. no crackles, rhonchi or wheezing. no stridor. Chest: reproduction of pain with palpation of left anterior chest wall. no bruising to chest wall. bilateral gynecomastia. Back: positive midline T-spine and L-spine tenderness to palpation. Pelvis: no tenderness to palpation of bilateral hip. LE equal in length, no external rotation bilaterally. Abdomen: soft, nontender. normal bowel sounds. no rebound, guarding, masses. Extremities: peripheral pulses intact. 4+ pitting edema bilaterally. Neurological: CN 2-12 grossly intact. moves all four extremities. Psych: awake, alert, oriented x3. follows commands. answers questions appropriately. ED Treatment Course - LABORATORY CBC & Chemistry Diagram: 02/24/19 06:00 02/24/19 06:00 Medical Decision Making - Medical Decision Making 02/24/19 05:33 78 year old male with above PMH presented to ED for fall out of bed, complaining of neck and chest pain, positive for thoracic and lumbar tenderness on examination. Initial Vital Signs Temp Pulse Resp BP Pulse Ox 98.8 F 107 H 17 104/51 L 93 L 02/24/19 05:19 02/24/19 05:19 02/24/19 05:19 02/24/19 05:19 02/24/19 05:19 Afebrile. Tachycardic. No tachypnea. Mild hypotension. Hypoxia on room air. -Currently satting 100% on 6L O2 Normal EF on ECHO 04/2018 Medications ordered: flexeril, tylenol IV, lidoderm patch Imaging ordered: CT head, CT cervical spine, right shoulder XR, lumbar and thoracic spine XR EKG performed at 0524: rate 104, regular rhythm, RBBB, nonspecific ST changes. Similar to prior EKG performed 05/04/18. VBG: respiratory acidosis. CO2 retention. -BIPAP ordered -10/13/40%/16 02/24/19 07:11 CBC WBC 6.4 K/mm3 (4.0-10.0) 02/24/19 06:00 RBC 2.74 M/mm3 (4.00-5.60) L 02/24/19 06:00 Hgb 9.2 GM/dL (11.7-16.9) L 02/24/19 06:00 Hct 28.8 % (35.4-49) L 02/24/19 06:00 MCV 104.8 fl (80-96) H 02/24/19 06:00 MCH 33.6 pg (25.7-33.7) 02/24/19 06:00 MCHC 32.0 g/dl (32.0-35.9) 02/24/19 06:00 RDW 14.3 % (11.9-15.9) 02/24/19 06:00 Plt Count 181 K/MM3 (134-434) 02/24/19 06:00 MPV 7.3 fl (7.5-11.1) L D 02/24/19 06:00 Absolute Neuts (auto) 5.6 K/mm3 (1.5-8.0) 02/24/19 06:00 Neutrophils % 86.5 % (42.8-82.8) H 02/24/19 06:00 Lymphocytes % 5.8 % (8-40) L D 02/24/19 06:00 Monocytes % 6.5 % (3.8-10.2) 02/24/19 06:00 Eosinophils % 0.9 % (0-4.5) 02/24/19 06:00 Basophils % 0.3 % (0-2.0) 02/24/19 06:00 Nucleated RBC % 0 % (0-0) 02/24/19 06:00 CMP Sodium 142 mmol/L (136-145) 02/24/19 06:00 Potassium 4.0 mmol/L (3.5-5.1) 02/24/19 06:00 Chloride 101 mmol/L (98-107) 02/24/19 06:00 Carbon Dioxide 36 mmol/L (21-32) H 02/24/19 06:00 Anion Gap 5 MMOL/L (8-16) L 02/24/19 06:00 BUN 27 mg/dL (7-18) H 02/24/19 06:00 Creatinine 1.3 mg/dL (0.55-1.3) 02/24/19 06:00 Creat Clearance w eGFR 53.53 (>60) 02/24/19 06:00 Random Glucose 210 mg/dL (74-106) H 02/24/19 06:00 Calcium 9.3 mg/dL (8.5-10.1) 02/24/19 06:00 Magnesium 1.6 mg/dL (1.8-2.4) L 02/24/19 06:00 Total Bilirubin 0.4 mg/dL (0.2-1) 02/24/19 06:00 AST 25 U/L (15-37) 02/24/19 06:00 ALT 29 U/L (13-61) 02/24/19 06:00 Alkaline Phosphatase 209 U/L (45-117) H 02/24/19 06:00 Troponin I 0.06 ng/ml (0.00-0.05) H 02/24/19 06:00 Total Protein 6.9 g/dl (6.4-8.2) 02/24/19 06:00 Albumin 3.6 g/dl (3.4-5.0) 02/24/19 06:00 Macrocytic anemia. BEKA -Cr 04/2018 0.9 Mild elevation of troponin Hypomagnesium Pt signed out to Dr. Reynolds. Pending admission for acute hypoxic hypercapnic respiratory failure, elevated troponin, hypomagensium Pending imaging: CT head, CT cervical spine, XR lumbar and thoracic spine, XR right shoulder Medications ordered: mag, ASA 162 mg chew *DC/Admit/Observation/Transfer Diagnosis at time of Disposition: Acute respiratory failure with hypoxia and hypercapnia, Elevated troponin, Hypomagnesemia - Discharge Dispostion Condition at time of disposition: Guarded Decision to Admit order: Yes - Referrals - Patient Instructions - Post Discharge Activity
[2019-02-24 06:13] LABS: BASO % 0.3 % (0-2.0); EOS % 0.9 % (0-4.5); HEMATOCRIT 28.8 % (35.4-49); HEMOGLOBIN 9.2 GM/dL (11.7-16.9); LYMPH % 5.8 % (8-40); MCH 33.6 pg (25.7-33.7); MEAN CELL VOLUME 104.8 fl (80-96); MEAN PLT VOLUME 7.3 fl (7.5-11.1); MONO % 6.5 % (3.8-10.2); NEUT % 86.5 % (42.8-82.8); PLATELET COUNT 181 K/MM3 (134-434); RBC 2.74 M/mm3 (4.00-5.60); RDW 14.3 % (11.9-15.9); WHITE BLOOD COUNT 6.4 K/mm3 (4.0-10.0)
[2019-02-24] MEDS ORDERED: CYCLOBENZAPRINE HCL 10 MG TABLET (FP) PO ONE (06:16)
[2019-02-24] MEDS ORDERED: ACETAMINOPHEN 1000 MG/100 ML VIAL (NON FORMULARY) IVPB ONE (06:16)
[2019-02-24] MEDS ORDERED: LIDOCAINE 5% TOPICAL PATCH TP ONE (06:16)
--- NOTE | 2019-02-24 06:16 | PDOC ---
Attending Attestation - Resident Resident Name: Farhana Plaza - ED Attending Attestation I have performed the following: I have examined & evaluated the patient, The case was reviewed & discussed with the resident, I agree w/resident's findings & plan - HPI HPI: 02/24/19 06:11 78 year old male with PMH CAD, HTN, HLD, pulmonary HTN on 2L O2 presented to ED for fall. He stated he accidentally rolled out of bed, faceplanting onto the ground, and was unable to get himself up off the ground. no LOC or AMS/sz activity. c/o left shoulder pain, facial pain, neck and back pain. denies prodromal sx. - Physicial Exam PE: 02/24/19 06:12 General: GCS 15 NAD, well appearing HEENT: NCAT, PERRL, EOMI. Airway intact. No battles sign or raccoon eyes. Dentition intact. No e/o septal hematoma, nasal bridge stable. Neck: neck supple, +midline C spine tenderness, no deformity, ROM intact. No anterior mass or crepitus, trachea midline. Resp: Lungs clear bilaterally, on 6L O2 via nasal cannula, mildly tachypneic. Chest: no clavicle or chest wall tenderness or crepitus CVS: mild tachycardia, 2+ pulses throughout. regular rhythm Abdomen: Abdomen soft, nontender, protuberant and obese. Back: Back with spinal tenderness along thoracic/lumbar spine, FROM, no stepoffs. MSK: Pelvis stable, Extremities symmetric, no focal areas of tenderness or deformities, proximal and distally; no pain on axial loading. FROM in all extrem. Left AC joint/anterior Shoulder Tenderness, shoulder abduction/adduction /flexion/extension and prox strength 5/5 actively against resistance. 5/5 shoulder shrug strength. deltoid sensation intact; sensation grossly intact in median/radial/ulnar distribution. distal research physiologist strength 5/5. 2+ radialis pulses bilaterally and symmetric. Neuro: Alert, oriented appropriately. CN II-XII grossly symmetric and intact. no focal neuro deficits. Sensation and strength intact throughout. Skin: intact, normal color and well perfused. 02/24/19 06:17 02/24/19 06:34 - Medical Decision Making 02/24/19 06:17 hpi as documented VS reviewed, baseline on 2L supp O2 for pulm htn, sp O2 allowed in the low 90s , mildly tachypneic. now on 6L O2. Trauma ddx: ICH, SDH/ EDH, C spine injury/strain, extremity sprain/fracture, pelvis fracture. MSK contusion, msk spasms. Rib fractures. electrolyte/ metabolic derangements Clinically doubt Intra abdominal and thoracic injuries/bleed basic labs and lytes with low Mg, repleted. cards panel with elevated trop to 0.06, no acute ekg changes, ASA given and trend, tele monitor VBG with acute CO2 retention, acidosis - possibly from pain/poor respiratory effort. EKG nonischemic similar to prior with old RBBB, neg sgarbossa's criteria, nonspecific T wave abnormalities. Xray CTs of facial,head and C spine neg for acute fx/bleed or injuries. analgesia here, reassess bipap to blow off CO2, for the retention and acute respiratory acidosis, anticipate admission for fall, possibly from AM CO2 retention, pulmonary htn flare, NSTEMI. requiring Bipap to blow off excess CO2. 02/24/19 06:33 02/24/19 07:37 Heart Score/ECG Review #1 ECG reviewed & interpreted by me at: 05:25 General ECG Interpretation: Sinus Rhythm, Normal Rate Compared to previous ECG there are: No significant change 02/24/19 06:19 EKG sinus tachycardia at 104 bpm, no interval abnormalities, RBBB, neg sgarbossa 's criteria, ST and T wave segments and morphology normal. Nonspecific T wave abnormalities
[2019-02-24 06:21] LABS: VENOUS PH 7.29 (7.31-7.41); VENOUS PO2 32.4 mmHg (30-40)
[2019-02-24 06:22] LABS: VENOUS PC02 78.8 mmHg (41-51)
[2019-02-24 06:34] LABS: INR 1.11 (0.83-1.09); PROTHROMBIN TIME (PATIENT) 13.1 SEC (9.7-13.0)
[2019-02-24 06:37] LABS: ACTIVATED PTT 30.1 SECONDS (25.2-36.5)
[2019-02-24 06:48] LABS: ALBUMIN 3.6 g/dl (3.4-5.0); ALK PHOS 209 U/L (45-117); ANION GAP 5 MMOL/L (8-16); BILIRUBIN,TOTAL 0.4 mg/dL (0.2-1); BLOOD UREA NITROGEN 27 mg/dL (7-18); CALCIUM 9.3 mg/dL (8.5-10.1); CHLORIDE 101 mmol/L (98-107); CO2 36 mmol/L (21-32); CREATININE 1.3 mg/dL (0.55-1.3); GLUCOSE,RANDOM 210 mg/dL (74-106); SGOT/AST 25 U/L (15-37); SGPT/ALT 29 U/L (13-61); SODIUM 142 mmol/L (136-145); TOT PROT 6.9 g/dl (6.4-8.2)
[2019-02-24 06:51] LABS: MAGNESIUM 1.6 mg/dL (1.8-2.4)
[2019-02-24] MEDS ORDERED: MAGNESIUM SULF 50% (8.12 MEQ/2 ML-1 GM VIAL) IVPB ONE (07:00)
[2019-02-24] MEDS ORDERED: ASPIRIN 81 MG CHEWABLE TABLETS PO ONE (07:00)
--- NOTE | 2019-02-24 07:16 | PDOC ---
History of Present Illness - General Chief Complaint: Injury Stated Complaint: FALL Time Seen by Provider: 02/24/19 05:19 Past History - Past Medical History Allergies/Adverse Reactions: Allergies Allergy/AdvReac Type Severity Reaction Status Date / Time No Known Allergies Allergy Unverified 02/24/19 05:18 Home Medications: Ambulatory Orders Alendronate Na [Fosamax (Weekly)] 70 mg PO WE 01/29/17 Atorvastatin Calcium 40 mg PO DAILY 01/29/17 Escitalopram Oxalate [Lexapro -] 10 mg PO DAILY 01/29/17 Isosorbide Mononitrate [Imdur -] 60 mg PO DAILY 01/29/17 Linagliptin [Tradjenta] 5 mg PO DAILY 01/29/17 Sacubitril/Valsartan [Entresto 24 mg-26 mg Tablet] 1 tab PO BID 01/29/17 Aspirin Coated [Ecotrin -] 81 mg PO DAILY tablet.ec 11/05/17 Tamsulosin HCl [Flomax -] 0.4 mg PO DAILY@0830 #30 cap.er.24h 11/05/17 Amlodipine Besylate 5 mg PO DAILY 05/04/18 Furosemide [Lasix -] 40 mg PO DAILY 05/04/18 Metoprolol Succinate 50 mg PO DAILY 05/04/18 Insulin Glargine,Hum.rec.anlog [Basaglar Kwikpen U-100] 20 unit SQ DAILY Cardiac Disorders: Yes (cardiomyopathy,cad) COPD: Yes (3L) CHF: Yes Diabetes: Yes HTN: Yes Hypercholesterolemia: Yes - Surgical History Cardiac Surgery: Yes (STENT PLACEMENT) - Immunization History Immunization Up to Date: No - Suicide/Smoking/Psychosocial Hx Smoking Status: No Smoking History: Never smoked Have you smoked in the past 12 months: No Number of Cigarettes Smoked Daily: 0 Hx Alcohol Use: No Drug/Substance Use Hx: No Substance Use Type: None Hx Substance Use Treatment: No *Physical Exam - Vital Signs Last Vital Signs Temp Pulse Resp BP Pulse Ox 98.8 F 107 H 17 104/51 L 98 02/24/19 05:19 02/24/19 05:19 02/24/19 05:19 02/24/19 05:19 02/24/19 07:15 ED Treatment Course - LABORATORY CBC & Chemistry Diagram: 02/24/19 06:00 02/24/19 06:00 - ADDITIONAL ORDERS Additional order review: Laboratory Results 02/24/19 02/24/19 02/24/19 06:00 06:00 06:00 PT with INR INR PTT (Actin FS) VBG pH 7.29 L POC VBG pCO2 78.8 H* POC VBG pO2 32.4 VBG HCO3 36.4 H VBG O2 Sat (Amy) 51.4 L VBG Base Excess 8.5 H Sodium 142 Potassium 4.0 Chloride 101 Carbon Dioxide 36 H Anion Gap 5 L BUN 27 H Creatinine 1.3 Creat Clearance w eGFR 53.53 Random Glucose 210 H Calcium 9.3 Magnesium 1.6 L Total Bilirubin 0.4 AST 25 ALT 29 Alkaline Phosphatase 209 H Troponin I 0.06 H Total Protein 6.9 Albumin 3.6 02/24/19 06:00 PT with INR 13.10 H INR 1.11 H PTT (Actin FS) 30.1 VBG pH POC VBG pCO2 POC VBG pO2 VBG HCO3 VBG O2 Sat (Amy) VBG Base Excess Sodium Potassium Chloride Carbon Dioxide Anion Gap BUN Creatinine Creat Clearance w eGFR Random Glucose Calcium Magnesium Total Bilirubin AST ALT Alkaline Phosphatase Troponin I Total Protein Albumin 02/24/19 06:00 RBC 2.74 L MCV 104.8 H MCHC 32.0 RDW 14.3 MPV 7.3 L D Neutrophils % 86.5 H Lymphocytes % 5.8 L D Monocytes % 6.5 Eosinophils % 0.9 Basophils % 0.3 Medical Decision Making - Medical Decision Making 02/24/19 07:17 Patient signed out by resident Dr. Plaza. In short patient with Pending admission for acute hypoxic hypercapnic respiratory failure, elevated troponin, hypomagensium Pending imaging: CT head, CT cervical spine, XR lumbar and thoracic spine, XR right shoulder Medications ordered: mag, ASA 162 mg chew *DC/Admit/Observation/Transfer Diagnosis at time of Disposition: Acute respiratory failure with hypoxia and hypercapnia, Elevated troponin, Hypomagnesemia - Discharge Dispostion Condition at time of disposition: Guarded - Referrals - Patient Instructions - Post Discharge Activity
--- NOTE | 2019-02-24 07:22 | PDOC ---
*Physical Exam - Vital Signs Last Vital Signs Temp Pulse Resp BP Pulse Ox 98.8 F 107 H 17 104/51 L 98 02/24/19 05:19 02/24/19 05:19 02/24/19 05:19 02/24/19 05:19 02/24/19 07:15 ED Treatment Course - LABORATORY CBC & Chemistry Diagram: 02/24/19 06:00 02/24/19 06:00 - ADDITIONAL ORDERS Additional order review: Laboratory Results 02/24/19 02/24/19 02/24/19 06:00 06:00 06:00 PT with INR INR PTT (Actin FS) VBG pH 7.29 L POC VBG pCO2 78.8 H* POC VBG pO2 32.4 VBG HCO3 36.4 H VBG O2 Sat (Amy) 51.4 L VBG Base Excess 8.5 H Sodium 142 Potassium 4.0 Chloride 101 Carbon Dioxide 36 H Anion Gap 5 L BUN 27 H Creatinine 1.3 Creat Clearance w eGFR 53.53 Random Glucose 210 H Calcium 9.3 Magnesium 1.6 L Total Bilirubin 0.4 AST 25 ALT 29 Alkaline Phosphatase 209 H Troponin I 0.06 H Total Protein 6.9 Albumin 3.6 02/24/19 06:00 PT with INR 13.10 H INR 1.11 H PTT (Actin FS) 30.1 VBG pH POC VBG pCO2 POC VBG pO2 VBG HCO3 VBG O2 Sat (Amy) VBG Base Excess Sodium Potassium Chloride Carbon Dioxide Anion Gap BUN Creatinine Creat Clearance w eGFR Random Glucose Calcium Magnesium Total Bilirubin AST ALT Alkaline Phosphatase Troponin I Total Protein Albumin 02/24/19 06:00 RBC 2.74 L MCV 104.8 H MCHC 32.0 RDW 14.3 MPV 7.3 L D Neutrophils % 86.5 H Lymphocytes % 5.8 L D Monocytes % 6.5 Eosinophils % 0.9 Basophils % 0.3 Medical Decision Making - Medical Decision Making 02/24/19 07:19 Patient signed out by resident Dr. Plaza. In short patient is a 78 year old man with a history of CAD, HTN, HLD on home 2L O2 who presents after rolling off bed onto [place] [facility] and complaining of L chest wall pain, neck pain and R shoulder pain. At presentaton requiring more O2 up to 6L w/u in ED showed CO2 retention, started on bipap tropinemia to 0.06, no ST elevations on EKG hypomagnesium ED Course: Pending admission for acute hypoxic hypercapnic respiratory failure, elevated troponin, hypomagensium Pending imaging: CT head, CT cervical spine, XR lumbar and thoracic spine, XR right shoulder Medications ordered: mag, ASA 162 mg chew 02/24/19 07:[address]: unremarkable CXR: elevated L hemidiaphragm from CT on 05/05/2018, cardiomegaly and prominent aorta and kuldeep Hip and pelvis XR: no fracture, incerased bone density in the spine and L hemipelvis 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 Case discussed with Dr. 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 *DC/Admit/Observation/Transfer Diagnosis at time of Disposition: Acute respiratory failure with hypoxia and hypercapnia, Elevated troponin, Hypomagnesemia - Discharge Dispostion Condition at time of disposition: Guarded - Referrals - Patient Instructions - Post Discharge Activity
[2019-02-24] MEDS ORDERED: ASPIRIN 81 MG CHEWABLE TABLETS ONE (07:41)
[2019-02-24] MEDS ORDERED: ACETAMINOPHEN INJECTION 100 ML IVPB ONE (07:58)
[2019-02-24] MEDS ORDERED: CYCLOBENZAPRINE HCL 10 MG TABLET (FP) ONE (07:58)
[2019-02-24] MEDS ORDERED: LIDOCAINE 5% TOPICAL PATCH ONE (07:59)
[2019-02-24] MEDS ORDERED: MAGNESIUM SULF 50% (8.12 MEQ/2 ML-1 GM VIAL) ONE (08:24)
[2019-02-24 08:28] LABS: N-TERMINAL BNP 279.9 pg/ml (5-450)
--- NOTE | 2019-02-24 12:11 | EKG ---
Test Reason : Blood Pressure : / mmHG Vent. Rate : 104 BPM Atrial Rate : 101 BPM P-R Int : 000 ms QRS Dur : 162 ms QT Int : 432 ms P-R-T Axes : 000 258 003 degrees QTc Int : 568 ms POOR DATA QUALITY, INTERPRETATION MAY BE ADVERSELY AFFECTED UNDETERMINED RHYTHM RIGHT BUNDLE BRANCH BLOCK ABNORMAL ECG Confirmed by [place] TORRES, RUDDY ([id number]) on 02/24/2019 12:11:33 PM Referred By: JESIKA Confirmed By:RUDDY HO MD
--- NOTE | 2019-02-24 12:16 | EKG ---
Test Reason : Blood Pressure : / mmHG Vent. Rate : 092 BPM Atrial Rate : 093 BPM P-R Int : 186 ms QRS Dur : 168 ms QT Int : 408 ms P-R-T Axes : 019 -77 010 degrees QTc Int : 504 ms UNDETERMINED RHYTHM LEFT AXIS DEVIATION RIGHT BUNDLE BRANCH BLOCK SEPTAL INFARCT , AGE UNDETERMINED ABNORMAL ECG WHEN COMPARED WITH ECG OF 24-FEB-2019 05:24, CURRENT UNDETERMINED RHYTHM PRECLUDES RHYTHM COMPARISON, NEEDS REVIEW Confirmed by [place] TORRES, RUDDY ([id number]) on 02/24/2019 12:15:44 PM Referred By: Confirmed By:RUDDY HO MD
[2019-02-24] MEDS: ALBUTEROL SO4 2.5/IPRATROPIUM 0.5 INH SOL 3 ML VIAL.NEB. NEB SCH (21:55)
[2019-02-24] MEDS: methylPREDNISolone NA SUCC 40 MG/1 ML VIAL IVPUSH SCH (22:00)
[2019-02-24] MEDS ORDERED: HEPARIN NA (PORCINE) 5,000 UNITS/ML 1ML VIAL SQ SCH (22:00)
[2019-02-24] MEDS ORDERED: ALBUTEROL SO4 2.5/IPRATROPIUM 0.5 INH SOL 3 ML VIAL.NEB. NEB ONE (22:43)
[2019-02-24] MEDS ORDERED: ATORVASTATIN CA 10 MG TABLET (FP) ONE (22:43)
[2019-02-24] MEDS ORDERED: HEPARIN NA (PORCINE) 5,000 UNITS/ML 1ML VIAL ONE (22:44)
[2019-02-24] MEDS ORDERED: methylPREDNISolone NA SUCC 40 MG/1 ML VIAL ONE (22:44)
[2019-02-24] MEDS: ATORVASTATIN CA 40 MG TABLET (FP) PO SCH (23:00)
[2019-02-24] MEDS: LIDOCAINE PATCH REMOVAL MC SCH (23:00)
[2019-02-24] MEDS: SACUBITRIL/VALSARTAN 24 MG-26 MG TABLET PO SCH (23:00)
[2019-02-24] MEDS: INSULIN SLIDING SCALE (NOVOLOG) 1 VIAL SQ SCH (23:00)
--- NOTE | 2019-02-24 23:17 | HP ---
Admitting History and Physical - Admission History of Present Illness: Pt is a 78 y/o male with PMH significant for CAD, HTN, HLD, pulmonary HTN(on 2L O2) and prostate CA. Pt presented to ED for fall. He stated he accidentally rolled out of bed onto the ground and was unable to get himself up off the ground. He denied LOC or vomiting. He complained of left sided anterior chest wall pain, neck pain, right shoulder pain. In the ER pt had CT scan head/chest wc were unremarkable however ot found to have respiratory distress/hypoxemia and was put on BIPAP. - Past Medical History Cardiovascular: Yes: CAD, HTN, Hyperlipdemia, Pulmonary Hypertension Renal/: Yes: BPH Endocrine: Yes: Diabetes Mellitus - Smoking History Smoking history: Never smoked Have you smoked in the past 12 months: No Aproximately how many cigarettes per day: 0 - Alcohol/Substance Use Hx Alcohol Use: No - Social History ADL: Independent History of Recent Travel: No Home Medications - Allergies Allergies/Adverse Reactions: Allergies Allergy/AdvReac Type Severity Reaction Status Date / Time No Known Allergies Allergy Unverified 02/24/19 05:18 - Home Medications Home Medications: Ambulatory Orders Alendronate Na [Fosamax (Weekly)] 70 mg PO WE 01/29/17 Atorvastatin Calcium 40 mg PO DAILY 01/29/17 Escitalopram Oxalate [Lexapro -] 10 mg PO DAILY 01/29/17 Isosorbide Mononitrate [Imdur -] 60 mg PO DAILY 01/29/17 Linagliptin [Tradjenta] 5 mg PO DAILY 01/29/17 Sacubitril/Valsartan [Entresto 24 mg-26 mg Tablet] 1 tab PO BID 01/29/17 Aspirin Coated [Ecotrin -] 81 mg PO DAILY tablet.ec 11/05/17 Tamsulosin HCl [Flomax -] 0.4 mg PO DAILY@0830 #30 cap.er.24h 11/05/17 Amlodipine Besylate 5 mg PO DAILY 05/04/18 Furosemide [Lasix -] 40 mg PO DAILY 05/04/18 Metoprolol Succinate 50 mg PO DAILY 05/04/18 Insulin Glargine,Hum.rec.anlog [Basaglar Kwikpen U-100] 20 unit SQ DAILY Family Disease History - Family Disease History Family History: Unremarkable Review of Systems - Review of Systems Constitutional: reports: No Symptoms HENT: reports: No Symptoms Cardiovascular: reports: Chest Pain, Shortness of Breath Respiratory: reports: SOB Gastrointestinal: reports: No Symptoms Physical Examination Vital Signs: Vital Signs Temperature 98.8 F 02/24/19 05:19 Pulse Rate 100 H 02/24/19 21:46 Respiratory Rate 30 H 02/24/19 21:46 Blood Pressure 138/62 02/24/19 21:46 O2 Sat by Pulse Oximetry (%) 98 02/24/19 21:46 Constitutional: Yes: Well Nourished Neck: Yes: WNL, Supple Cardiovascular: Yes: WNL, Regular Rate and Rhythm Respiratory: Yes: Diminished Gastrointestinal: Yes: WNL, Normal Bowel Sounds, Soft, Abdomen, Obese Edema: Yes Edema: LLE: 1+, RLE: 1+ Neurological: Yes: WNL, Alert, Oriented ...Motor Strength: WNL Labs: CBC, BMP 02/24/19 06:00 02/24/19 06:00 Problem List - Problems (1) Acute respiratory failure with hypoxia and hypercapnia Code(s): J96.01 - ACUTE RESPIRATORY FAILURE WITH HYPOXIA; J96.02 - ACUTE RESPIRATORY FAILURE WITH HYPERCAPNIA (2) BPH (benign prostatic hyperplasia) Code(s): N40.0 - BENIGN PROSTATIC HYPERPLASIA WITHOUT LOWER URINRY TRACT SYMP (3) Diabetes Code(s): E11.9 - TYPE 2 DIABETES MELLITUS WITHOUT COMPLICATIONS Qualifiers: Diabetes mellitus type: type 2 Diabetes mellitus complication status: without complication (4) HLD (hyperlipidemia) Code(s): E78.5 - HYPERLIPIDEMIA, UNSPECIFIED (5) Hypertension Code(s): I10 - ESSENTIAL (PRIMARY) HYPERTENSION (6) Morbid obesity Code(s): E66.01 - MORBID (SEVERE) OBESITY DUE TO EXCESS CALORIES (7) Pulmonary HTN Code(s): I27.2 - OTHER SECONDARY PULMONARY HYPERTENSION * DO NOT USE *
[2019-02-25 06:26] LABS: HEMOGLOBIN 9.7 GM/dL (11.7-16.9); RBC 2.82 M/mm3 (4.00-5.60); WHITE BLOOD COUNT 7.7 K/mm3 (4.0-10.0)
[2019-02-25 06:27] LABS: BASO % 0.1 % (0-2.0); EOS % 0.1 % (0-4.5); HEMATOCRIT 29.5 % (35.4-49); MCH 34.3 pg (25.7-33.7); MCHC 32.9 g/dl (32.0-35.9); MEAN CELL VOLUME 104.3 fl (80-96); MEAN PLT VOLUME 8.5 fl (7.5-11.1); MONO % 2.1 % (3.8-10.2); NEUT % 93.7 % (42.8-82.8); PLATELET COUNT 182 K/MM3 (134-434); RDW 14.2 % (11.9-15.9)
[2019-02-25] MEDS: INSULIN SLIDING SCALE (NOVOLOG) 1 VIAL SQ SCH ×4 (07:11→22:44)
[2019-02-25] MEDS: ALBUTEROL SO4 2.5/IPRATROPIUM 0.5 INH SOL 3 ML VIAL.NEB. NEB SCH ×4 (07:29→21:14)
[2019-02-25 07:55] LABS: ALBUMIN 3.6 g/dl (3.4-5.0); ALK PHOS 188 U/L (45-117); ANION GAP 6 MMOL/L (8-16); BILIRUBIN,TOTAL 0.9 mg/dL (0.2-1); BLOOD UREA NITROGEN 17 mg/dL (7-18); CALCIUM 9.2 mg/dL (8.5-10.1); CHLORIDE 99 mmol/L (98-107); CO2 35 mmol/L (21-32); GLUCOSE,RANDOM 209 mg/dL (74-106); SGOT/AST 23 U/L (15-37); SGPT/ALT 28 U/L (13-61); SODIUM 139 mmol/L (136-145); TOT PROT 6.8 g/dl (6.4-8.2)
[2019-02-25] MEDS ORDERED: ALBUTEROL SO4 2.5/IPRATROPIUM 0.5 INH SOL 3 ML VIAL.NEB. NEB SCH (08:00)
[2019-02-25] MEDS ORDERED: PT OWN MED DRAWER 7, Y5N ONE (08:17)
--- NOTE | 2019-02-25 09:21 | CON.CARD ---
Consult Consult Specialty:: Cardiology Referred by:: Dr. Matos Reason for Consultation:: Fall - History of Present Illness Chief Complaint: Fall History of Present Illness: 78M with PAF, obesity, CAD s/p PCI (remote), PHTN presents after fall out of bed with diffuse body pains. Multiple scans done- no fracture. He denies antecedent CP, SOB, palpitations but states he has significant weight gain over last month and abdominal distension. - History Source History Provided By: Patient - Past Medical History Cardio/Vascular: Yes: CAD, HTN, Hyperlipdemia, Pulmonary Hypertension Endocrine: Yes: Diabetes Mellitus - Alcohol/Substance Use Hx Alcohol Use: No - Smoking History Smoking history: Never smoked Have you smoked in the past 12 months: No Aproximately how many cigarettes per day: 0 - Social History Usual Living Arrangement: With Spouse ADL: Independent History of Recent Travel: No Home Medications - Allergies Allergies/Adverse Reactions: Allergies Allergy/AdvReac Type Severity Reaction Status Date / Time No Known Allergies Allergy Unverified 02/24/19 05:18 - Home Medications Home Medications: Ambulatory Orders Alendronate Na [Fosamax (Weekly)] 70 mg PO WE 01/29/17 Atorvastatin Calcium 40 mg PO DAILY 01/29/17 Escitalopram Oxalate [Lexapro -] 10 mg PO DAILY 01/29/17 Isosorbide Mononitrate [Imdur -] 60 mg PO DAILY 01/29/17 Linagliptin [Tradjenta] 5 mg PO DAILY 01/29/17 Sacubitril/Valsartan [Entresto 24 mg-26 mg Tablet] 1 tab PO BID 01/29/17 Aspirin Coated [Ecotrin -] 81 mg PO DAILY tablet.ec 11/05/17 Tamsulosin HCl [Flomax -] 0.4 mg PO DAILY@0830 #30 cap.er.24h 11/05/17 Amlodipine Besylate 5 mg PO DAILY 05/04/18 Furosemide [Lasix -] 40 mg PO DAILY 05/04/18 Metoprolol Succinate 50 mg PO DAILY 05/04/18 Insulin Glargine,Hum.rec.anlog [Basaglar Kwikpen U-100] 20 unit SQ DAILY Family Disease History - Family Disease History Family History: Unremarkable Review of Systems - Review of Systems Constitutional: reports: No Symptoms HENT: reports: No Symptoms Cardiovascular: reports: Shortness of Breath Respiratory: reports: Exercise Intolerance Gastrointestinal: reports: Bloating Genitourinary: reports: No Symptoms Breasts: reports: No Symptoms Reported Musculoskeletal: reports: No Symptoms Integumentary: reports: No Symptoms Neurological: reports: No Symptoms Endocrine: reports: No Symptoms Hematology/Lymphatic: reports: No Symptoms Psychiatric: reports: No Symptoms - Risk Factors Known Risk Factors: Yes: Diabetes Mellitus, Hypertension, Other (CAD) Vital Signs: Vital Signs Temperature 99.0 F 02/25/19 01:25 Pulse Rate 93 H 02/25/19 06:00 Respiratory Rate 20 02/25/19 06:00 Blood Pressure 149/92 02/25/19 06:00 O2 Sat by Pulse Oximetry (%) 95 02/25/19 07:41 Constitutional: Yes: No Distress, Calm Eyes: Yes: Conjunctiva Clear Neck: Yes: Trachea Midline Respiratory: Yes: Other (decreased breath sounds at bases) Gastrointestinal: Yes: Soft, Abdomen, Obese, Other (distended) Cardiovascular: Yes: Regular Rate and Rhythm JVD: No Carotid Bruit: No Heart Sounds: Yes: S1, S2 Edema: Yes Edema: LLE: 1+, RLE: 1+ Neurological: Yes: Alert, Oriented ...Motor Strength: WNL - Other Data Labs, Other Data: CBC, BMP 02/25/19 05:30 02/25/19 05:30 INR, PTT INR 1.11 (0.83-1.09) H 02/24/19 06:00 Troponin, BNP 02/25/19 02/25/19 00:00 05:30 Troponin I 0.36 H 0.20 H Troponin, BNP 02/25/19 02/25/19 00:00 05:30 Troponin I 0.36 H 0.20 H Echo: Pending Prior Cardiac Procedures: PTCA with Stent Imaging - Results Chest X-ray: Report Reviewed EKG: Image Reviewed Problem List - Problems (1) Elevated troponin Code(s): R74.8 - ABNORMAL LEVELS OF OTHER SERUM ENZYMES (2) Abdominal bloating Code(s): R14.0 - ABDOMINAL DISTENSION (GASEOUS) (3) Chronic combined systolic and diastolic CHF, NYHA class 4 Code(s): I50.42 - CHRONIC COMBINED SYSTOLIC AND DIASTOLIC HRT FAIL (4) Diabetes Code(s): E11.9 - TYPE 2 DIABETES MELLITUS WITHOUT COMPLICATIONS Qualifiers: Diabetes mellitus type: type 2 Diabetes mellitus complication status: without complication (5) Dyspnea Code(s): R06.00 - DYSPNEA, UNSPECIFIED Qualifiers: Dyspnea type: unspecified Qualified Code(s): R06.00 - Dyspnea, unspecified (6) Morbid obesity Code(s): E66.01 - MORBID (SEVERE) OBESITY DUE TO EXCESS CALORIES (7) PSVT (paroxysmal supraventricular tachycardia) Code(s): I47.1 - SUPRAVENTRICULAR TACHYCARDIA (8) Pulmonary HTN Code(s): I27.2 - OTHER SECONDARY PULMONARY HYPERTENSION * DO NOT USE * (9) Atrial fibrillation Code(s): I48.91 - UNSPECIFIED ATRIAL FIBRILLATION Assessment/Plan IMP: 1. PSVT 2. H/o PAF 3. CAD s/p remote h/o coronary PCI 4. Chronic PHTN 5. Chronic combined diastolic/systolic CHF 6. DM 7. Fall, probably mechanical 8. Elevated TnI REC: 1. Elevated TnI unlikely represents ACS as ECG not ischemic and no chest pain symptoms, normal CK Likely due to chronic combined systolic/diastolic CHF and chronic severe PHTN. 2. Echo to assess LVEF, PHTN. 3. Case d/w outpt Cardio Dr. Mayer: Eliquis was started November 2018. Resume Eliquis as [id number] score is elevated. 4. Tele to r/o arrhythmia. 5. IV Lasix with daily BMP and weights to monitor renal fx Will follow
[2019-02-25 09:34] LABS: ANISOCYTOSIS 0; MACROCYTOSIS 1+; PLATELET ESTIMATE NORMAL
[2019-02-25] MEDS: methylPREDNISolone NA SUCC 40 MG/1 ML VIAL IVPUSH SCH (10:25)
[2019-02-25] MEDS: FUROSEMIDE 40 MG/4 ML INJECTABLE VIAL IVPUSH SCH (10:25)
[2019-02-25] MEDS: SACUBITRIL/VALSARTAN 24 MG-26 MG TABLET PO SCH ×2 (10:26→22:45)
[2019-02-25] MEDS: ASPIRIN COATED 81 MG TABLET.EC PO SCH (10:26)
[2019-02-25] MEDS: ESCITALOPRAM OXALATE 10 MG TABLET (FP) PO SCH (10:26)
[2019-02-25] MEDS: amLODIPine BESYLATE 5 MG TABLET (FP) PO SCH (10:26)
[2019-02-25] MEDS: TAMSULOSIN HCL 0.4 MG CAP PO SCH (10:26)
[2019-02-25] MEDS: ISOSORBIDE MONONITRATE 30 MG TAB.SR.24H (FP) PO SCH (10:26)
[2019-02-25] MEDS: APIXABAN 5 MG TABLET PO SCH ×2 (10:26→22:45)
--- NOTE | 2019-02-25 12:03 | ECHO ---
Name: KAYLEEN CORBETT Exam:Adult Echocardiogram Study Date: 02/25/2019 08:09 AM Age: 78 yrs Reason For Study: DYSPNEA Height: 71 in Weight: 325 lb BSA: 2.6 m2 MMode/2D Measurements & Calculations IVSd: 0.88 cm Ao root diam: 3.0 cm LVIDd: 4.8 cm LA dimension: 3.7 cm LVIDs: 3.5 cm LVPWd: 0.83 cm EDV(Teich): 107.5 ml LVOT diam: 2.2 cm ESV(Teich): 52.3 ml Doppler Measurements & Calculations MV E max ryan: 79.5 cm/sec Ao V2 max: 230.0 cm/sec MV A max ryan: 81.5 cm/sec Ao max P.2 mmHg MV E/A: 0.98 Ao V2 mean: 155.0 cm/sec MV dec time: 0.13 sec Ao mean P.0 mmHg Ao V2 VTI: 42.0 cm VIKKI(I,D): 1.3 cm2 VIKKI(V,D): 1.3 cm2 LV V1 max P.4 mmHg MR max ryan: 542.2 cm/sec LV V1 mean P.0 mmHg MR max P.6 mmHg LV V1 max: 77.2 cm/sec LV V1 mean: 50.8 cm/sec LV V1 VTI: 13.9 cm SV(LVOT): 52.8 ml TR max ryan: 274.0 cm/sec TR max P.1 mmHg Med Peak E' Ryan: 5.6 cm/sec Med E/e': 14.3 Lat Peak E' Ryan: 7.9 cm/sec Lat E/e': 10.1 Procedure The study was technically difficult with many images being suboptimal in quality. Left Ventricle Left ventricular systolic function is low normal. Ejection Fraction = 50%. Regional wall motion abnor malities cannot be excluded due to limited visualization. Right Ventricle The right ventricle is mild to moderately dilated. Right ventricular function cannot be assessed due to poor image quality. Atria The left atrium is borderline dilated. Mitral Valve There is mild mitral annular calcification. There is no mitral valve stenosis. There is mild mitral regurgitation. Tricuspid Valve The tricuspid valve is not well visualized, but is grossly normal. There is mild tricuspid regurgitat ion. Right ventricular systolic pressure is elevated at 30-40mmHg. Aortic Valve There is mild aortic sclerosis.;. No hemodynamically significant valvular aortic stenosis. No aortic regurgitation is present. Pulmonic Valve The pulmonic valve is not well seen, but is grossly normal. There is no pulmonic valvular stenosis. Great Vessels The aortic root is normal size. Pericardium/Pleura There is no pericardial effusion. Interpretation Summary The study was technically difficult with many images being suboptimal in quality. Regional wall motion abnormalities cannot be excluded due to limited visualization. Left ventricular systolic function is low normal. Ejection Fraction = 50%. The right ventricle is mild to moderately dilated. Right ventricular function cannot be assessed due to poor image quality. There is mild mitral regurgitation. There is mild tricuspid regurgitation. Right ventricular systolic pressure is elevated at 30-40mmHg. There is no pericardial effusion. MD Cantu *Valdo 02/25/2019 12:02 PM
--- NOTE | 2019-02-25 12:27 | CON.PULM ---
Consult Consult Specialty:: PULMONARY Referred by:: DANY Reason for Consultation:: CHRONIC HYPOXEMIC RESP FAILURE - History of Present Illness Chief Complaint: FALL WITH INABILITY TO GET UP History of Present Illness: 78 year old male with PMH CAD, HTN, HLD, pulmonary HTN on 2L O2, prostate CA was born in [place], worked in [employer] in [facility] for 36 years,was never in the service, presented to ED for fall. He stated he accidentally rolled out of bed, and was unable to get himself up off the floor. He denied LOC or vomiting. He complained of left sided anterior chest wall pain , neck pain, right shoulder pain. All imaging studies of concern were negative. 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 Cardio/Vascular: Yes: CAD, HTN, Hyperlipdemia, Pulmonary Hypertension Pulmonary: Yes: COPD, O2 Dependent, Other (pulmonary htn) Gastrointestinal: No: Ascites Hepatobiliary: No: Cirrhosis Renal/: No: Renal Failure Heme/Onc: Yes: Anemia Psych: No: Addictions Rheumatology: No: Fibromyalgia Endocrine: Yes: Diabetes Mellitus - Past Surgical History Past Surgical History: Yes: Stent - Alcohol/Substance Use Hx Alcohol Use: No - Smoking History Smoking history: Never smoked Have you smoked in the past 12 months: No Aproximately how many cigarettes per day: 0 - Social History Usual Living Arrangement: With Spouse ADL: Independent History of Recent Travel: No Home Medications - Allergies Allergies/Adverse Reactions: Allergies Allergy/AdvReac Type Severity Reaction Status Date / Time No Known Allergies Allergy Unverified 02/24/19 05:18 - Home Medications Home Medications: Ambulatory Orders Alendronate Na [Fosamax (Weekly)] 70 mg PO WE 01/29/17 Atorvastatin Calcium 40 mg PO DAILY 01/29/17 Escitalopram Oxalate [Lexapro -] 10 mg PO DAILY 01/29/17 Isosorbide Mononitrate [Imdur -] 60 mg PO DAILY 01/29/17 Linagliptin [Tradjenta] 5 mg PO DAILY 01/29/17 Sacubitril/Valsartan [Entresto 24 mg-26 mg Tablet] 1 tab PO BID 01/29/17 Aspirin Coated [Ecotrin -] 81 mg PO DAILY tablet.ec 11/05/17 Tamsulosin HCl [Flomax -] 0.4 mg PO DAILY@0830 #30 cap.er.24h 11/05/17 Amlodipine Besylate 5 mg PO DAILY 05/04/18 Furosemide [Lasix -] 40 mg PO DAILY 05/04/18 Metoprolol Succinate 50 mg PO DAILY 05/04/18 Insulin Glargine,Hum.rec.anlog [Basaglar Kwikpen U-100] 20 unit SQ DAILY Family Disease History - Family Disease History Family History: Unremarkable Review of Systems - Review of Systems Constitutional: denies: Fever Eyes: denies: Blurred Vision HENT: denies: Difficult Swallowing Neck: denies: Decreased ROM Cardiovascular: denies: Chest Pain Respiratory: reports: Exercise Intolerance, SOB on Exertion. denies: Cough, Hemoptysis Gastrointestinal: denies: Abdominal Pain Genitourinary: denies: Burning Breasts: reports: No Symptoms Reported Physical Exam Vital Sings: Vital Signs Temperature 98.9 F 02/25/19 09:45 Pulse Rate 91 H 02/25/19 09:45 Respiratory Rate 20 02/25/19 09:45 Blood Pressure 129/63 02/25/19 09:45 O2 Sat by Pulse Oximetry (%) 98 02/25/19 08:00 Constitutional: Yes: Calm Eyes: Yes: EOM Intact HENT: Yes: Normocephalic Neck: Yes: Trachea Midline Cardiovascular: Yes: Regular Rate and Rhythm, S1, S2 Respiratory: Yes: Diminished ...Clubbing: No Gastrointestinal: Yes: Normal Bowel Sounds Renal/: Yes: WNL Breast(s): Yes: WNL Musculoskeletal: Yes: Back Pain Extremities: Yes: WNL Edema: No Neurological: Yes: Alert Psychiatric: Yes: Alert Labs: CBC, BMP 02/25/19 05:30 02/25/19 05:30 rest reviewed Imaging - Results Chest X-ray: Report Reviewed, Image Reviewed Cat Scan: Report Reviewed EKG: Report Reviewed, Image Reviewed Other: Report Reviewed Problem List - Problems (1) Fall Code(s): W19.XXXA - UNSPECIFIED FALL, INITIAL ENCOUNTER (2) Acute respiratory failure with hypoxia and hypercapnia Code(s): J96.01 - ACUTE RESPIRATORY FAILURE WITH HYPOXIA; J96.02 - ACUTE RESPIRATORY FAILURE WITH HYPERCAPNIA (3) Elevated troponin Code(s): R74.8 - ABNORMAL LEVELS OF OTHER SERUM ENZYMES (4) Abdominal bloating Code(s): R14.0 - ABDOMINAL DISTENSION (GASEOUS) (5) CHF (congestive heart failure) Code(s): I50.9 - HEART FAILURE, UNSPECIFIED Qualifiers: Heart failure type: systolic Heart failure chronicity: acute on chronic Qualified Code(s): I50.23 - Acute on chronic systolic (congestive) heart failure (6) Chronic hypoxemic respiratory failure Code(s): J96.11 - CHRONIC RESPIRATORY FAILURE WITH HYPOXIA (7) Diabetes Code(s): E11.9 - TYPE 2 DIABETES MELLITUS WITHOUT COMPLICATIONS Qualifiers: Diabetes mellitus type: type 2 Diabetes mellitus complication status: without complication (8) Morbid obesity Code(s): E66.01 - MORBID (SEVERE) OBESITY DUE TO EXCESS CALORIES (9) Pulmonary HTN Code(s): I27.2 - OTHER SECONDARY PULMONARY HYPERTENSION * DO NOT USE * Assessment/Plan FALL WITHOUT RADIOGRAPHIC EVIDENCE OF FRACTURE CHRONIC HYPERCAPNEIC HYPOXEMIC RESPIRATORY FAILURE ON HOME 02 3-4 L/M [facility]ELY OSAS/OHS BUT SELF REPORTS A NEGATIVE SLEEP STUDY 3 YEARS AGO AT AN OUTSIDE INSTITUTION CXR REVEALS LARGE HEART AND ELEVATED LEFT HEMIDIAPHRAGM NO EVIDENCE TO SUPPORT ACUTE PULMONARY PROCESS CARDIOLOGY INPUT APPRECIATED WOULD STOP STEROIDS AT THIS POINT CONTINUE NIPPV HS NEEDED NEBS/O2 SUPPLEMENTATION CONTINUE TRIAL OF DIURETICS Fabio LEWIS MD
--- NOTE | 2019-02-25 21:37 | PN ---
Progress Note, Physician - Current Medication List Current Medications: Active Medications Albuterol/Ipratropium (Duoneb -) 1 amp NEB RQID [facility] Last Admin: 02/25/19 21:14 Dose: 1 amp Amlodipine Besylate (Norvasc -) 5 mg PO DAILY [facility] Last Admin: 02/25/19 10:26 Dose: 5 mg Apixaban (Eliquis -) 5 mg PO BID [facility] Last Admin: 02/25/19 10:26 Dose: 5 mg Aspirin (Ecotrin -) 81 mg PO DAILY [facility] Last Admin: 02/25/19 10:26 Dose: 81 mg Atorvastatin Calcium (Lipitor -) 40 mg PO HS [facility] Last Admin: 02/24/19 23:00 Dose: 40 mg Budesonide/Formoterol Fumarate (Symbicort 160/4.5mcg -) 2 puff IH BID [facility] Digoxin (Lanoxin -) 0.125 mg PO DAILY [facility] Escitalopram Oxalate (Lexapro -) 10 mg PO DAILY [facility] Last Admin: 02/25/19 10:26 Dose: 10 mg Furosemide (Lasix Injection -) 40 mg IVPUSH DAILY [facility] Last Admin: 02/25/19 10:25 Dose: 40 mg Insulin Aspart (Novolog Vial Sliding Scale -) 1 vial SQ [facility]; Protocol Last Admin: 02/25/19 17:22 Dose: 8 unit Isosorbide Mononitrate (Imdur -) 60 mg PO DAILY [facility] Last Admin: 02/25/19 10:26 Dose: 60 mg Metoprolol Succinate (Toprol Xl -) 75 mg PO DAILY [facility] Miscellaneous (Lidoderm Patch Removal) 1 each MC DAILY@2200 [facility] Last Admin: 02/24/19 23:00 Dose: 1 each Sacubitril/Valsartan (Entresto 24 Mg-26 Mg Tablet) 1 tab PO BID [facility] Last Admin: 02/25/19 10:26 Dose: 1 tab Tamsulosin HCl (Flomax -) 0.4 mg PO DAILY@0830 [facility] Last Admin: 02/25/19 10:26 Dose: 0.4 mg - Objective Vital Signs: Vital Signs Temperature 98.4 F 02/25/19 14:10 Pulse Rate 92 H 02/25/19 14:10 Respiratory Rate 20 02/25/19 14:10 Blood Pressure 137/75 02/25/19 14:10 O2 Sat by Pulse Oximetry (%) 100 02/25/19 21:13 Labs: CBC, BMP 02/25/19 05:30 02/25/19 05:30 INR, PTT INR 1.11 (0.83-1.09) H 02/24/19 06:00
[2019-02-25] MEDS: BUDESONIDE/FORMETEROL FUMARATE 160/4.5 mcg INHALER IH SCH (22:45)
[2019-02-25] MEDS: ATORVASTATIN CA 40 MG TABLET (FP) PO SCH (22:45)
[2019-02-26] MEDS: INSULIN SLIDING SCALE (NOVOLOG) 1 VIAL SQ SCH ×4 (06:46→21:02)
[2019-02-26] MEDS: ALBUTEROL SO4 2.5/IPRATROPIUM 0.5 INH SOL 3 ML VIAL.NEB. NEB SCH ×4 (07:20→21:00)
[2019-02-26] MEDS: ISOSORBIDE MONONITRATE 30 MG TAB.SR.24H (FP) PO SCH (10:40)
[2019-02-26] MEDS: DIGOXIN 0.125 MG TABLET (FP) PO SCH (10:41)
[2019-02-26] MEDS: APIXABAN 5 MG TABLET PO SCH ×2 (10:41→21:02)
[2019-02-26] MEDS: amLODIPine BESYLATE 5 MG TABLET (FP) PO SCH (10:41)
[2019-02-26] MEDS: TAMSULOSIN HCL 0.4 MG CAP PO SCH (10:41)
[2019-02-26] MEDS: ASPIRIN COATED 81 MG TABLET.EC PO SCH (10:41)
[2019-02-26] MEDS: ESCITALOPRAM OXALATE 10 MG TABLET (FP) PO SCH (10:41)
[2019-02-26] MEDS: metoPROLOL SUCCINATE 25 MG TAB.SR.24H (FP) PO SCH (10:41)
[2019-02-26] MEDS: BUDESONIDE/FORMETEROL FUMARATE 160/4.5 mcg INHALER IH SCH ×2 (10:42→21:03)
[2019-02-26] MEDS: FUROSEMIDE 40 MG/4 ML INJECTABLE VIAL IVPUSH SCH (10:42)
[2019-02-26] MEDS: SACUBITRIL/VALSARTAN 24 MG-26 MG TABLET PO SCH ×2 (10:42→21:03)
--- NOTE | 2019-02-26 11:25 | PN ---
Progress Note (short form) - Note Progress Note: PULMONARY Subjective improvement VSS Constitutional: Yes: Calm Eyes: Yes: EOM Intact HENT: Yes: Normocephalic Neck: Yes: Trachea Midline Cardiovascular: Yes: Regular Rate and Rhythm, S1, S2 Respiratory: Yes: Diminished ...Clubbing: No Gastrointestinal: Yes: Normal Bowel Sounds Renal/: Yes: WNL Breast(s): Yes: WNL Musculoskeletal: Yes: Back Pain Extremities: Yes: WNL Edema: No Neurological: Yes: Alert Psychiatric: Yes: Alert Labs/meds/notes/images reviewed Problem List - Problems (1) Fall Code(s): W19.XXXA - UNSPECIFIED FALL, INITIAL ENCOUNTER (2) Acute respiratory failure with hypoxia and hypercapnia Code(s): J96.01 - ACUTE RESPIRATORY FAILURE WITH HYPOXIA; J96.02 - ACUTE RESPIRATORY FAILURE WITH HYPERCAPNIA (3) Elevated troponin Code(s): R74.8 - ABNORMAL LEVELS OF OTHER SERUM ENZYMES (4) Abdominal bloating Code(s): R14.0 - ABDOMINAL DISTENSION (GASEOUS) (5) CHF (congestive heart failure) Code(s): I50.9 - HEART FAILURE, UNSPECIFIED Qualifiers: Heart failure type: systolic Heart failure chronicity: acute on chronic Qualified Code(s): I50.23 - Acute on chronic systolic (congestive) heart failure (6) Chronic hypoxemic respiratory failure Code(s): J96.11 - CHRONIC RESPIRATORY FAILURE WITH HYPOXIA (7) Diabetes Code(s): E11.9 - TYPE 2 DIABETES MELLITUS WITHOUT COMPLICATIONS Qualifiers: Diabetes mellitus type: type 2 Diabetes mellitus complication status: without complication (8) Morbid obesity Code(s): E66.01 - MORBID (SEVERE) OBESITY DUE TO EXCESS CALORIES (9) Pulmonary HTN Code(s): I27.2 - OTHER SECONDARY PULMONARY HYPERTENSION * DO NOT USE * Assessment/Plan FALL WITHOUT RADIOGRAPHIC EVIDENCE OF FRACTURE CHRONIC HYPERCAPNEIC HYPOXEMIC RESPIRATORY FAILURE ON HOME 02 3-4 L/M [facility]ELY OSAS/OHS BUT SELF REPORTS A NEGATIVE SLEEP STUDY 3 YEARS AGO AT AN OUTSIDE INSTITUTION CXR REVEALS LARGE HEART AND ELEVATED LEFT HEMIDIAPHRAGM NO EVIDENCE TO SUPPORT ACUTE PULMONARY PROCESS CARDIOLOGY INPUT APPRECIATED WOULD STOP STEROIDS AT THIS POINT CONTINUE NIPPV HS NEEDED NEBS/O2 SUPPLEMENTATION CONTINUE TRIAL OF DIURETICS/ANTICOAGULATION Fabio LEWIS MD Problem List - Problems (1) Fall Code(s): W19.XXXA - UNSPECIFIED FALL, INITIAL ENCOUNTER (2) Acute respiratory failure with hypoxia and hypercapnia Code(s): J96.01 - ACUTE RESPIRATORY FAILURE WITH HYPOXIA; J96.02 - ACUTE RESPIRATORY FAILURE WITH HYPERCAPNIA (3) Elevated troponin Code(s): R74.8 - ABNORMAL LEVELS OF OTHER SERUM ENZYMES (4) Abdominal bloating Code(s): R14.0 - ABDOMINAL DISTENSION (GASEOUS) (5) CHF (congestive heart failure) Code(s): I50.9 - HEART FAILURE, UNSPECIFIED Qualifiers: Heart failure type: systolic Heart failure chronicity: acute on chronic Qualified Code(s): I50.23 - Acute on chronic systolic (congestive) heart failure (6) Chronic hypoxemic respiratory failure Code(s): J96.11 - CHRONIC RESPIRATORY FAILURE WITH HYPOXIA (7) Diabetes Code(s): E11.9 - TYPE 2 DIABETES MELLITUS WITHOUT COMPLICATIONS Qualifiers: Diabetes mellitus type: type 2 Diabetes mellitus complication status: without complication (8) Morbid obesity Code(s): E66.01 - MORBID (SEVERE) OBESITY DUE TO EXCESS CALORIES (9) Pulmonary HTN Code(s): I27.2 - OTHER SECONDARY PULMONARY HYPERTENSION * DO NOT USE *
--- NOTE | 2019-02-26 12:33 | PN ---
Progress Note (short form) - Note Progress Note: s: still with sob but improving. no chest pain, palps, dizziness, lightheadedness tele: afib, rate ok Current Medications Albuterol/Ipratropium (Duoneb -) 1 amp NEB RQID [facility] Last Admin: 02/26/19 11:35 Dose: 1 amp Amlodipine Besylate (Norvasc -) 5 mg PO DAILY [facility] Last Admin: 02/26/19 10:41 Dose: 5 mg Apixaban (Eliquis -) 5 mg PO BID [facility] Last Admin: 02/26/19 10:41 Dose: 5 mg Aspirin (Ecotrin -) 81 mg PO DAILY [facility] Last Admin: 02/26/19 10:41 Dose: 81 mg Atorvastatin Calcium (Lipitor -) 40 mg PO HS [facility] Last Admin: 02/25/19 22:45 Dose: 40 mg Budesonide/Formoterol Fumarate (Symbicort 160/4.5mcg -) 2 puff IH BID [facility] Last Admin: 02/26/19 10:42 Dose: 2 puff Digoxin (Lanoxin -) 0.125 mg PO DAILY [facility] Last Admin: 02/26/19 10:41 Dose: 0.125 mg Escitalopram Oxalate (Lexapro -) 10 mg PO DAILY [facility] Last Admin: 02/26/19 10:41 Dose: 10 mg Furosemide (Lasix Injection -) 40 mg IVPUSH DAILY [facility] Last Admin: 02/26/19 10:42 Dose: 40 mg Insulin Aspart (Novolog Vial Sliding Scale -) 1 vial SQ [facility]; Protocol Last Admin: 02/26/19 06:46 Dose: 4 units Isosorbide Mononitrate (Imdur -) 60 mg PO DAILY [facility] Last Admin: 02/26/19 10:40 Dose: 60 mg Metoprolol Succinate (Toprol Xl -) 75 mg PO DAILY [facility] Last Admin: 02/26/19 10:41 Dose: 75 mg Miscellaneous (Lidoderm Patch Removal) 1 each MC DAILY@2200 [facility] Last Admin: 02/24/19 23:00 Dose: 1 each Sacubitril/Valsartan (Entresto 24 Mg-26 Mg Tablet) 1 tab PO BID [facility] Last Admin: 02/26/19 10:42 Dose: 1 tab Tamsulosin HCl (Flomax -) 0.4 mg PO DAILY@0830 [facility] Last Admin: 04/20/19 10:41 Dose: 0.4 mg Vital Signs: Vital Signs Period Temp Pulse Resp BP Sys/Enamorado Pulse Ox Last 24 Hr 98 F-98.4 F 85-92 20-20 120-137/51-75 96-100 Constitutional: Yes: No Distress, Calm Eyes: Yes: Conjunctiva Clear Neck: Yes: Trachea Midline Respiratory: Yes: Other (decreased breath sounds at bases) Gastrointestinal: Yes: Soft, Abdomen, Obese, Other (distended) Cardiovascular: Yes: Regular Rate and Rhythm JVD: No Carotid Bruit: No Heart Sounds: Yes: S1, S2 Edema: Yes Edema: LLE: 1+, RLE: 1+ Neurological: Yes: Alert, Oriented ...Motor Strength: WNL Prior Cardiac Procedures: PTCA with Stent Imaging - Results Chest X-ray: Report Reviewed EKG: Image Reviewed echo tds, EF 50%, RV mild to mod dilated, mild MR, mild TR, RVSP 30-40mmHg Problem List - Problems (1) Elevated troponin Code(s): R74.8 - ABNORMAL LEVELS OF OTHER SERUM ENZYMES (2) Abdominal bloating Code(s): R14.0 - ABDOMINAL DISTENSION (GASEOUS) (3) Chronic combined systolic and diastolic CHF, NYHA class 4 Code(s): I50.42 - CHRONIC COMBINED SYSTOLIC AND DIASTOLIC HRT FAIL (4) Diabetes Code(s): E11.9 - TYPE 2 DIABETES MELLITUS WITHOUT COMPLICATIONS Qualifiers: Diabetes mellitus type: type 2 Diabetes mellitus complication status: without complication (5) Dyspnea Code(s): R06.00 - DYSPNEA, UNSPECIFIED Qualifiers: Dyspnea type: unspecified Qualified Code(s): R06.00 - Dyspnea, unspecified (6) Morbid obesity Code(s): E66.01 - MORBID (SEVERE) OBESITY DUE TO EXCESS CALORIES (7) PSVT (paroxysmal supraventricular tachycardia) Code(s): I47.1 - SUPRAVENTRICULAR TACHYCARDIA (8) Pulmonary HTN Code(s): I27.2 - OTHER SECONDARY PULMONARY HYPERTENSION * DO NOT USE * (9) Atrial fibrillation Code(s): I48.91 - UNSPECIFIED ATRIAL FIBRILLATION Assessment/Plan IMP: 1. PSVT 2. H/o PAF 3. CAD s/p remote h/o coronary PCI 4. Chronic PHTN 5. Chronic combined diastolic/systolic CHF 6. DM 7. Fall, probably mechanical 8. Elevated TnI REC: 1. Elevated TnI unlikely represents ACS as ECG not ischemic and no chest pain symptoms, normal CK Likely due to chronic combined systolic/diastolic CHF and chronic severe PHTN. 2. Echo - tds with EF 50%, unable to evaluate RV function 3. per Dr. Lyle, case d/w outpt Cardio Dr. Mayer: Eliquis was started November 2018. Resume Eliquis as [id number] score is elevated. 4. continue tele 5. continue IV Lasix with daily BMP and standing weights to monitor renal fx, remains short of breath
[2019-02-26] MEDS: ATORVASTATIN CA 40 MG TABLET (FP) PO SCH (21:03)
[2019-02-26] MEDS: LIDOCAINE PATCH REMOVAL MC SCH (21:03)
--- NOTE | 2019-02-26 21:43 | PN ---
Progress Note, Physician - Current Medication List Current Medications: Active Medications Albuterol/Ipratropium (Duoneb -) 1 amp NEB RQID [facility] Last Admin: 02/26/19 21:00 Dose: 1 amp Amlodipine Besylate (Norvasc -) 5 mg PO DAILY [facility] Last Admin: 02/26/19 10:41 Dose: 5 mg Apixaban (Eliquis -) 5 mg PO BID [facility] Last Admin: 02/26/19 21:02 Dose: 5 mg Aspirin (Ecotrin -) 81 mg PO DAILY [facility] Last Admin: 02/26/19 10:41 Dose: 81 mg Atorvastatin Calcium (Lipitor -) 40 mg PO HS [facility] Last Admin: 02/26/19 21:03 Dose: 40 mg Budesonide/Formoterol Fumarate (Symbicort 160/4.5mcg -) 2 puff IH BID [facility] Last Admin: 02/26/19 21:03 Dose: 2 puff Digoxin (Lanoxin -) 0.125 mg PO DAILY [facility] Last Admin: 02/26/19 10:41 Dose: 0.125 mg Escitalopram Oxalate (Lexapro -) 10 mg PO DAILY [facility] Last Admin: 02/26/19 10:41 Dose: 10 mg Furosemide (Lasix Injection -) 40 mg IVPUSH DAILY [facility] Last Admin: 02/26/19 10:42 Dose: 40 mg Insulin Aspart (Novolog Vial Sliding Scale -) 1 vial SQ ACHS [facility]; Protocol Last Admin: 02/26/19 21:02 Dose: Not Given Isosorbide Mononitrate (Imdur -) 60 mg PO DAILY [facility] Last Admin: 02/26/19 10:40 Dose: 60 mg Metoprolol Succinate (Toprol Xl -) 75 mg PO DAILY [facility] Last Admin: 02/26/19 10:41 Dose: 75 mg Miscellaneous (Lidoderm Patch Removal) 1 each MC DAILY@2200 [facility] Last Admin: 02/26/19 21:03 Dose: Not Given Sacubitril/Valsartan (Entresto 24 Mg-26 Mg Tablet) 1 tab PO BID [facility] Last Admin: 02/26/19 21:03 Dose: 1 tab Tamsulosin HCl (Flomax -) 0.4 mg PO DAILY@0830 [facility] Last Admin: 02/26/19 10:41 Dose: 0.4 mg - Objective Vital Signs: Vital Signs Temperature 98.0 F 02/26/19 18:00 Pulse Rate 90 02/26/19 18:00 Respiratory Rate 18 02/26/19 18:00 Blood Pressure 114/60 02/26/19 18:00 O2 Sat by Pulse Oximetry (%) 100 02/26/19 20:05 Labs: CBC, BMP 02/25/19 05:30 02/25/19 05:30 INR, PTT INR 1.11 (0.83-1.09) H 02/24/19 06:00
[2019-02-27] MEDS: INSULIN SLIDING SCALE (NOVOLOG) 1 VIAL SQ SCH ×4 (06:46→22:40)
[2019-02-27] MEDS: TAMSULOSIN HCL 0.4 MG CAP PO SCH (08:16)
[2019-02-27] MEDS: ALBUTEROL SO4 2.5/IPRATROPIUM 0.5 INH SOL 3 ML VIAL.NEB. NEB SCH ×4 (08:26→21:30)
[2019-02-27 08:29] LABS: ANION GAP 4 MMOL/L (8-16); BLOOD UREA NITROGEN 23 mg/dL (7-18); CALCIUM 9.3 mg/dL (8.5-10.1); CHLORIDE 100 mmol/L (98-107); CO2 39 mmol/L (21-32); CREATININE 1.1 mg/dL (0.55-1.3); GLUCOSE,RANDOM 194 mg/dL (74-106); POTASSIUM 4.1 mmol/L (3.5-5.1); SODIUM 143 mmol/L (136-145)
[2019-02-27] MEDS: ISOSORBIDE MONONITRATE 30 MG TAB.SR.24H (FP) PO SCH (09:09)
[2019-02-27] MEDS: DIGOXIN 0.125 MG TABLET (FP) PO SCH (09:09)
[2019-02-27] MEDS: metoPROLOL SUCCINATE 25 MG TAB.SR.24H (FP) PO SCH (09:09)
[2019-02-27] MEDS: APIXABAN 5 MG TABLET PO SCH ×2 (09:09→22:40)
[2019-02-27] MEDS: amLODIPine BESYLATE 5 MG TABLET (FP) PO SCH (09:09)
[2019-02-27] MEDS: ASPIRIN COATED 81 MG TABLET.EC PO SCH (09:09)
[2019-02-27] MEDS: ESCITALOPRAM OXALATE 10 MG TABLET (FP) PO SCH (09:09)
[2019-02-27] MEDS: BUDESONIDE/FORMETEROL FUMARATE 160/4.5 mcg INHALER IH SCH ×2 (09:10→22:43)
[2019-02-27] MEDS: FUROSEMIDE 40 MG/4 ML INJECTABLE VIAL IVPUSH SCH ×2 (09:10→15:16)
[2019-02-27] MEDS: SACUBITRIL/VALSARTAN 24 MG-26 MG TABLET PO SCH ×2 (09:11→22:40)
--- NOTE | 2019-02-27 11:01 | PN ---
Progress Note (short form) - Note Progress Note: s: sob improving. no chest pain, palps, dizziness, lightheadedness tele: afib, rate ok Current Medications Albuterol/Ipratropium (Duoneb -) 1 amp NEB RQID [facility] Last Admin: 02/26/19 11:35 Dose: 1 amp Amlodipine Besylate (Norvasc -) 5 mg PO DAILY [facility] Last Admin: 02/26/19 10:41 Dose: 5 mg Apixaban (Eliquis -) 5 mg PO BID [facility] Last Admin: 02/26/19 10:41 Dose: 5 mg Aspirin (Ecotrin -) 81 mg PO DAILY [facility] Last Admin: 02/26/19 10:41 Dose: 81 mg Atorvastatin Calcium (Lipitor -) 40 mg PO HS [facility] Last Admin: 02/25/19 22:45 Dose: 40 mg Budesonide/Formoterol Fumarate (Symbicort 160/4.5mcg -) 2 puff IH BID [facility] Last Admin: 02/26/19 10:42 Dose: 2 puff Digoxin (Lanoxin -) 0.125 mg PO DAILY [facility] Last Admin: 02/26/19 10:41 Dose: 0.125 mg Escitalopram Oxalate (Lexapro -) 10 mg PO DAILY [facility] Last Admin: 02/26/19 10:41 Dose: 10 mg Furosemide (Lasix Injection -) 40 mg IVPUSH DAILY [facility] Last Admin: 02/26/19 10:42 Dose: 40 mg Insulin Aspart (Novolog Vial Sliding Scale -) 1 vial SQ [facility]; Protocol Last Admin: 02/26/19 06:46 Dose: 4 units Isosorbide Mononitrate (Imdur -) 60 mg PO DAILY [facility] Last Admin: 02/26/19 10:40 Dose: 60 mg Metoprolol Succinate (Toprol Xl -) 75 mg PO DAILY [facility] Last Admin: 02/26/19 10:41 Dose: 75 mg Miscellaneous (Lidoderm Patch Removal) 1 each MC DAILY@2200 [facility] Last Admin: 02/24/19 23:00 Dose: 1 each Sacubitril/Valsartan (Entresto 24 Mg-26 Mg Tablet) 1 tab PO BID [facility] Last Admin: 02/26/19 10:42 Dose: 1 tab Tamsulosin HCl (Flomax -) 0.4 mg PO DAILY@0830 [facility] Last Admin: 02/26/19 10:41 Dose: 0.4 mg Vital Signs: Vital Signs Period Temp Pulse Resp BP Sys/Enamorado Pulse Ox Last 24 Hr 98 F-98.4 F 85-92 20-20 120-137/51-75 96-100 Constitutional: Yes: No Distress, Calm Eyes: Yes: Conjunctiva Clear Neck: Yes: Trachea Midline Respiratory: Yes: Other (decreased breath sounds at bases) Gastrointestinal: Yes: Soft, Abdomen, Obese, Other (distended) Cardiovascular: Yes: Regular Rate and Rhythm JVD: No Carotid Bruit: No Heart Sounds: Yes: S1, S2 Edema: Yes Edema: LLE: 1+, RLE: 1+ Neurological: Yes: Alert, Oriented ...Motor Strength: WNL Prior Cardiac Procedures: PTCA with Stent Imaging - Results Chest X-ray: Report Reviewed EKG: Image Reviewed echo tds, EF 50%, RV mild to mod dilated, mild MR, mild TR, RVSP 30-40mmHg Problem List - Problems (1) Elevated troponin Code(s): R74.8 - ABNORMAL LEVELS OF OTHER SERUM ENZYMES (2) Abdominal bloating Code(s): R14.0 - ABDOMINAL DISTENSION (GASEOUS) (3) Chronic combined systolic and diastolic CHF, NYHA class 4 Code(s): I50.42 - CHRONIC COMBINED SYSTOLIC AND DIASTOLIC HRT FAIL (4) Diabetes Code(s): E11.9 - TYPE 2 DIABETES MELLITUS WITHOUT COMPLICATIONS Qualifiers: Diabetes mellitus type: type 2 Diabetes mellitus complication status: without complication (5) Dyspnea Code(s): R06.00 - DYSPNEA, UNSPECIFIED Qualifiers: Dyspnea type: unspecified Qualified Code(s): R06.00 - Dyspnea, unspecified (6) Morbid obesity Code(s): E66.01 - MORBID (SEVERE) OBESITY DUE TO EXCESS CALORIES (7) PSVT (paroxysmal supraventricular tachycardia) Code(s): I47.1 - SUPRAVENTRICULAR TACHYCARDIA (8) Pulmonary HTN Code(s): I27.2 - OTHER SECONDARY PULMONARY HYPERTENSION * DO NOT USE * (9) Atrial fibrillation Code(s): I48.91 - UNSPECIFIED ATRIAL FIBRILLATION Assessment/Plan IMP: 1. PSVT 2. H/o PAF 3. CAD s/p remote h/o coronary PCI 4. Chronic PHTN 5. Chronic combined diastolic/systolic CHF 6. DM 7. Fall, probably mechanical 8. Elevated TnI REC: 1. Elevated TnI unlikely represents ACS as ECG not ischemic and no chest pain symptoms, normal CK Likely due to chronic combined systolic/diastolic CHF and chronic severe PHTN. 2. Echo - tds with EF 50%, unable to evaluate RV function 3. per Dr. Lyle, case d/w outpt Cardio Dr. Mayer: Eliquis was started November 2018. Resume Eliquis as [id number] score is elevated. 4. continue tele 5. continue IV Lasix with daily BMP and standing weights to monitor renal fx, remains short of breath. weight inc today, still has dyspnea but improving. will increase lasix to 40 mg IV BID
[2019-02-27] MEDS ORDERED: FUROSEMIDE 40 MG/4 ML INJECTABLE VIAL IVPUSH SCH (14:00)
[2019-02-27] MEDS: ACETAMINOPHEN 325 MG TABLET (FP) PO PRN ×2 (15:16→22:56)
--- NOTE | 2019-02-27 15:34 | PN ---
Progress Note, Physician History of Present Illness: covering dr Matos today - Current Medication List Current Medications: Active Medications Acetaminophen (Tylenol -) 650 mg PO Q6H PRN PRN Reason: FEVER Last Admin: 02/27/19 15:16 Dose: 650 mg Albuterol/Ipratropium (Duoneb -) 1 amp NEB RQID [facility] Last Admin: 02/27/19 12:05 Dose: 1 amp Amlodipine Besylate (Norvasc -) 5 mg PO DAILY [facility] Last Admin: 02/27/19 09:09 Dose: 5 mg Apixaban (Eliquis -) 5 mg PO BID [facility] Last Admin: 02/27/19 09:09 Dose: 5 mg Aspirin (Ecotrin -) 81 mg PO DAILY [facility] Last Admin: 02/27/19 09:09 Dose: 81 mg Atorvastatin Calcium (Lipitor -) 40 mg PO HS [facility] Last Admin: 02/26/19 21:03 Dose: 40 mg Budesonide/Formoterol Fumarate (Symbicort 160/4.5mcg -) 2 puff IH BID [facility] Last Admin: 02/27/19 09:10 Dose: 2 puff Digoxin (Lanoxin -) 0.125 mg PO DAILY [facility] Last Admin: 02/27/19 09:09 Dose: 0.125 mg Escitalopram Oxalate (Lexapro -) 10 mg PO DAILY [facility] Last Admin: 02/27/19 09:09 Dose: 10 mg Furosemide (Lasix Injection -) 40 mg IVPUSH BID@0600,1400 [facility] Last Admin: 02/27/19 15:16 Dose: 40 mg Insulin Aspart (Novolog Vial Sliding Scale -) 1 vial SQ [facility]; Protocol Last Admin: 02/27/19 11:31 Dose: 2 units Isosorbide Mononitrate (Imdur -) 60 mg PO DAILY [facility] Last Admin: 02/27/19 09:09 Dose: 60 mg Metoprolol Succinate (Toprol Xl -) 75 mg PO DAILY [facility] Last Admin: 02/27/19 09:09 Dose: 75 mg Miscellaneous (Lidoderm Patch Removal) 1 each MC DAILY@2200 [facility] Last Admin: 02/26/19 21:03 Dose: Not Given Sacubitril/Valsartan (Entresto 24 Mg-26 Mg Tablet) 1 tab PO BID [facility] Last Admin: 04/21/19 09:11 Dose: 1 tab Tamsulosin HCl (Flomax -) 0.4 mg PO DAILY@0830 [facility] Last Admin: 02/27/19 08:16 Dose: 0.4 mg - Objective Vital Signs: Vital Signs Temperature 98.5 F 02/27/19 15:13 Pulse Rate 82 02/27/19 15:13 Respiratory Rate 20 02/27/19 15:13 Blood Pressure 110/61 02/27/19 15:13 O2 Sat by Pulse Oximetry (%) 99 02/27/19 12:05 Constitutional: Yes: No Distress HENT: Yes: Atraumatic Neck: Yes: Supple Cardiovascular: Yes: Regular Rate and Rhythm Respiratory: Yes: CTA Bilaterally Gastrointestinal: Yes: Normal Bowel Sounds Extremities: Yes: WNL Edema: No Peripheral Pulses WNL: Yes Neurological: Yes: Alert, Oriented Labs: CBC, BMP 02/25/19 05:30 02/27/19 05:00 INR, PTT INR 1.11 (0.83-1.09) H 02/24/19 06:00 Problem List - Problems (1) Acute respiratory failure with hypoxia and hypercapnia Code(s): J96.01 - ACUTE RESPIRATORY FAILURE WITH HYPOXIA; J96.02 - ACUTE RESPIRATORY FAILURE WITH HYPERCAPNIA (2) Atrial fibrillation Code(s): I48.91 - UNSPECIFIED ATRIAL FIBRILLATION (3) Elevated troponin Code(s): R74.8 - ABNORMAL LEVELS OF OTHER SERUM ENZYMES (4) Fall Code(s): W19.XXXA - UNSPECIFIED FALL, INITIAL ENCOUNTER (5) Diabetes Code(s): E11.9 - TYPE 2 DIABETES MELLITUS WITHOUT COMPLICATIONS Qualifiers: Diabetes mellitus type: type 2 Diabetes mellitus complication status: without complication (6) HLD (hyperlipidemia) Code(s): E78.5 - HYPERLIPIDEMIA, UNSPECIFIED (7) Hypertension Code(s): I10 - ESSENTIAL (PRIMARY) HYPERTENSION Assessment/Plan all meds reviewed continue home meds PT for R elbow monitor blood sugars
[2019-02-27] MEDS: LIDOCAINE PATCH REMOVAL MC SCH (22:39)
[2019-02-27] MEDS: ATORVASTATIN CA 40 MG TABLET (FP) PO SCH (22:40)
[2019-02-28] MEDS: FUROSEMIDE 40 MG/4 ML INJECTABLE VIAL IVPUSH SCH ×2 (06:50→13:19)
[2019-02-28] MEDS: INSULIN SLIDING SCALE (NOVOLOG) 1 VIAL SQ SCH ×4 (07:08→22:30)
[2019-02-28] MEDS: ALBUTEROL SO4 2.5/IPRATROPIUM 0.5 INH SOL 3 ML VIAL.NEB. NEB SCH ×4 (07:15→20:35)
[2019-02-28] MEDS: TAMSULOSIN HCL 0.4 MG CAP PO SCH (08:38)
[2019-02-28] MEDS: ASPIRIN COATED 81 MG TABLET.EC PO SCH (09:25)
[2019-02-28] MEDS: APIXABAN 5 MG TABLET PO SCH ×2 (09:25→21:59)
[2019-02-28] MEDS: ISOSORBIDE MONONITRATE 30 MG TAB.SR.24H (FP) PO SCH (09:25)
[2019-02-28] MEDS: ESCITALOPRAM OXALATE 10 MG TABLET (FP) PO SCH (09:25)
[2019-02-28] MEDS: DIGOXIN 0.125 MG TABLET (FP) PO SCH (09:25)
[2019-02-28] MEDS: metoPROLOL SUCCINATE 25 MG TAB.SR.24H (FP) PO SCH (09:25)
[2019-02-28] MEDS: amLODIPine BESYLATE 5 MG TABLET (FP) PO SCH (09:26)
[2019-02-28] MEDS: BUDESONIDE/FORMETEROL FUMARATE 160/4.5 mcg INHALER IH SCH ×2 (09:26→21:59)
--- NOTE | 2019-02-28 09:46 | PN ---
Progress Note, Physician Chief Complaint: Still SOB with exertion. TELE: AF, rare bursts to 120s- 130s, self limited. - Current Medication List Current Medications: Active Medications Acetaminophen (Tylenol -) 650 mg PO Q6H PRN PRN Reason: FEVER Last Admin: 02/27/19 22:56 Dose: 650 mg Albuterol/Ipratropium (Duoneb -) 1 amp NEB RQID [facility] Last Admin: 02/28/19 07:15 Dose: 1 amp Amlodipine Besylate (Norvasc -) 5 mg PO DAILY [facility] Last Admin: 02/28/19 09:26 Dose: 5 mg Apixaban (Eliquis -) 5 mg PO BID [facility] Last Admin: 02/28/19 09:25 Dose: 5 mg Aspirin (Ecotrin -) 81 mg PO DAILY [facility] Last Admin: 02/28/19 09:25 Dose: 81 mg Atorvastatin Calcium (Lipitor -) 40 mg PO HS [facility] Last Admin: 02/27/19 22:40 Dose: 40 mg Budesonide/Formoterol Fumarate (Symbicort 160/4.5mcg -) 2 puff IH BID [facility] Last Admin: 02/28/19 09:26 Dose: 2 puff Digoxin (Lanoxin -) 0.125 mg PO DAILY [facility] Last Admin: 02/28/19 09:25 Dose: 0.125 mg Escitalopram Oxalate (Lexapro -) 10 mg PO DAILY [facility] Last Admin: 02/28/19 09:25 Dose: 10 mg Furosemide (Lasix Injection -) 40 mg IVPUSH BID@0600,1400 [facility] Last Admin: 02/28/19 06:50 Dose: 40 mg Insulin Aspart (Novolog Vial Sliding Scale -) 1 vial SQ ACHS [facility]; Protocol Last Admin: 02/28/19 07:08 Dose: 2 units Isosorbide Mononitrate (Imdur -) 60 mg PO DAILY [facility] Last Admin: 02/28/19 09:25 Dose: 60 mg Metoprolol Succinate (Toprol Xl -) 75 mg PO DAILY [facility] Last Admin: 02/28/19 09:25 Dose: 75 mg Miscellaneous (Lidoderm Patch Removal) 1 each MC DAILY@2200 [facility] Last Admin: 02/27/19 22:39 Dose: Not Given Sacubitril/Valsartan (Entresto 24 Mg-26 Mg Tablet) 1 tab PO BID [facility] Last Admin: 02/27/19 22:40 Dose: 1 tab Tamsulosin HCl (Flomax -) 0.4 mg PO DAILY@0830 [facility] Last Admin: 02/28/19 08:38 Dose: 0.4 mg - Objective Vital Signs: Vital Signs Temperature 98.1 F 02/28/19 01:44 Pulse Rate 101 H 02/28/19 09:25 Respiratory Rate 20 02/28/19 06:00 Blood Pressure 118/74 02/28/19 06:00 O2 Sat by Pulse Oximetry (%) 98 02/27/19 22:00 Constitutional: Yes: No Distress Cardiovascular: Yes: Pulse Irregular Gastrointestinal: Yes: Soft, Abdomen, Obese, Pulsatile Mass (bibasilar rales 1/ 3 up) Edema: Yes Edema: LLE: 2+, RLE: 2+ Neurological: Yes: Alert, Oriented Labs: CBC, BMP 02/25/19 05:30 02/27/19 05:00 INR, PTT INR 1.11 (0.83-1.09) H 02/24/19 06:00 Laboratory Tests 02/24/19 02/24/19 02/25/19 06:00 06:00 00:00 WBC Hgb Hct Plt Count INR 1.11 H Sodium Potassium BUN Creatinine Calcium Creatine Kinase 272 Troponin I 0.06 H 0.36 H 02/25/19 02/25/19 02/27/19 05:30 05:30 05:00 WBC 7.7 Hgb 9.7 L Hct 29.5 L Plt Count 182 INR Sodium 139 143 Potassium 4.0 4.1 BUN 17 23 H Creatinine 1.0 1.1 Calcium 9.3 Creatine Kinase 240 Troponin I 0.20 H - ....Imaging EKG: Image Reviewed Problem List - Problems (1) Elevated troponin Code(s): R74.8 - ABNORMAL LEVELS OF OTHER SERUM ENZYMES (2) Abdominal bloating Code(s): R14.0 - ABDOMINAL DISTENSION (GASEOUS) (3) Chronic combined systolic and diastolic CHF, NYHA class 4 Code(s): I50.42 - CHRONIC COMBINED SYSTOLIC AND DIASTOLIC HRT FAIL (4) Diabetes Code(s): E11.9 - TYPE 2 DIABETES MELLITUS WITHOUT COMPLICATIONS Qualifiers: Diabetes mellitus type: type 2 Diabetes mellitus complication status: without complication (5) Dyspnea Code(s): R06.00 - DYSPNEA, UNSPECIFIED Qualifiers: Dyspnea type: unspecified Qualified Code(s): R06.00 - Dyspnea, unspecified (6) Morbid obesity Code(s): E66.01 - MORBID (SEVERE) OBESITY DUE TO EXCESS CALORIES (7) PSVT (paroxysmal supraventricular tachycardia) Code(s): I47.1 - SUPRAVENTRICULAR TACHYCARDIA (8) Pulmonary HTN Code(s): I27.2 - OTHER SECONDARY PULMONARY HYPERTENSION * DO NOT USE * (9) Atrial fibrillation Code(s): I48.91 - UNSPECIFIED ATRIAL FIBRILLATION Assessment/Plan IMP: 1. PSVT 2. H/o PAF 3. CAD s/p remote h/o coronary PCI 4. Chronic PHTN 5. Chronic combined diastolic/systolic CHF 6. DM 7. Fall, probably mechanical 8. Elevated TnI REC: 1. Elevated TnI unlikely represents ACS as ECG not ischemic and no chest pain symptoms, normal CK Likely due to chronic combined systolic/diastolic CHF and chronic severe PHTN. 2. Echo - tds with EF 50%, unable to evaluate RV function 3. Continue Eliquis as [id number] score is elevated. 4. continue tele 5. Agree with increase in Lasix dose. Daily weights and daily BMP monitor renal fx
[2019-02-28] MEDS: SACUBITRIL/VALSARTAN 24 MG-26 MG TABLET PO SCH ×2 (10:28→21:59)
[2019-02-28] MEDS ORDERED: PT OWN MED DRAWER 7, Y5N ONE ×2 (10:28→21:02)
--- NOTE | 2019-02-28 11:02 | PN ---
Progress Note, Physician History of Present Illness: PULMONARY ALERT,OOB-CHAIR,LESS DYSPNEIC,-CP - Current Medication List Current Medications: Active Medications Acetaminophen (Tylenol -) 650 mg PO Q6H PRN PRN Reason: FEVER Last Admin: 02/27/19 22:56 Dose: 650 mg Albuterol/Ipratropium (Duoneb -) 1 amp NEB RQID [facility] Last Admin: 02/28/19 07:15 Dose: 1 amp Amlodipine Besylate (Norvasc -) 5 mg PO DAILY [facility] Last Admin: 02/28/19 09:26 Dose: 5 mg Apixaban (Eliquis -) 5 mg PO BID [facility] Last Admin: 02/28/19 09:25 Dose: 5 mg Aspirin (Ecotrin -) 81 mg PO DAILY [facility] Last Admin: 02/28/19 09:25 Dose: 81 mg Atorvastatin Calcium (Lipitor -) 40 mg PO HS [facility] Last Admin: 02/27/19 22:40 Dose: 40 mg Budesonide/Formoterol Fumarate (Symbicort 160/4.5mcg -) 2 puff IH BID [facility] Last Admin: 02/28/19 09:26 Dose: 2 puff Digoxin (Lanoxin -) 0.125 mg PO DAILY [facility] Last Admin: 02/28/19 09:25 Dose: 0.125 mg Escitalopram Oxalate (Lexapro -) 10 mg PO DAILY [facility] Last Admin: 02/28/19 09:25 Dose: 10 mg Furosemide (Lasix Injection -) 40 mg IVPUSH BID@0600,1400 [facility] Last Admin: 02/28/19 06:50 Dose: 40 mg Insulin Aspart (Novolog Vial Sliding Scale -) 1 vial SQ [facility]; Protocol Last Admin: 02/28/19 07:08 Dose: 2 units Isosorbide Mononitrate (Imdur -) 60 mg PO DAILY [facility] Last Admin: 02/28/19 09:25 Dose: 60 mg Metoprolol Succinate (Toprol Xl -) 75 mg PO DAILY [facility] Last Admin: 02/28/19 09:25 Dose: 75 mg Miscellaneous (Lidoderm Patch Removal) 1 each MC DAILY@2200 [facility] Last Admin: 02/27/19 22:39 Dose: Not Given Sacubitril/Valsartan (Entresto 24 Mg-26 Mg Tablet) 1 tab PO BID [facility] Last Admin: 02/28/19 10:28 Dose: 1 tab Tamsulosin HCl (Flomax -) 0.4 mg PO DAILY@0830 [facility] Last Admin: 02/28/19 08:38 Dose: 0.4 mg - Objective Vital Signs: Vital Signs Temperature 98.1 F 02/28/19 01:44 Pulse Rate 101 H 02/28/19 09:25 Respiratory Rate 20 02/28/19 06:00 Blood Pressure 118/74 02/28/19 06:00 O2 Sat by Pulse Oximetry (%) 98 02/27/19 22:00 Constitutional: Yes: Well Nourished, Calm Eyes: Yes: WNL HENT: Yes: WNL Neck: Yes: WNL Cardiovascular: Yes: Pulse Irregular, S1, S2 Respiratory: Yes: Diminished, Rales Gastrointestinal: Yes: Normal Bowel Sounds, Soft Extremities: Yes: WNL Edema: Yes Labs: CBC, BMP Assessment/Plan Problem List - Problems (1) Fall Code(s): W19.XXXA - UNSPECIFIED FALL, INITIAL ENCOUNTER (2) Acute respiratory failure with hypoxia and hypercapnia Code(s): J96.01 - ACUTE RESPIRATORY FAILURE WITH HYPOXIA; J96.02 - ACUTE RESPIRATORY FAILURE WITH HYPERCAPNIA (3) Elevated troponin Code(s): R74.8 - ABNORMAL LEVELS OF OTHER SERUM ENZYMES (4) Abdominal bloating Code(s): R14.0 - ABDOMINAL DISTENSION (GASEOUS) (5) CHF (congestive heart failure) Code(s): I50.9 - HEART FAILURE, UNSPECIFIED Qualifiers: Heart failure type: systolic Heart failure chronicity: acute on chronic Qualified Code(s): I50.23 - Acute on chronic systolic (congestive) heart failure (6) Chronic hypoxemic respiratory failure Code(s): J96.11 - CHRONIC RESPIRATORY FAILURE WITH HYPOXIA (7) Diabetes Code(s): E11.9 - TYPE 2 DIABETES MELLITUS WITHOUT COMPLICATIONS Qualifiers: Diabetes mellitus type: type 2 Diabetes mellitus complication status: without complication (8) Morbid obesity Code(s): E66.01 - MORBID (SEVERE) OBESITY DUE TO EXCESS CALORIES (9) Pulmonary HTN Code(s): I27.2 - OTHER SECONDARY PULMONARY HYPERTENSION * DO NOT USE * Assessment/Plan S/P FALL CHRONIC HYPERCAPNEIC HYPOXEMIC RESPIRATORY FAILURE ON HOME 02 3-4 L/M LIKELY [facility]/OHS PLAN CONTINUE NIPPV HS NEEDED NEBS O2 SUPPLEMENTATION DIURETICS DAILY WT NIPPV NEEDED DR CARPENTER
[2019-02-28] MEDS: LIDOCAINE PATCH REMOVAL MC SCH (21:58)
[2019-02-28] MEDS: ATORVASTATIN CA 40 MG TABLET (FP) PO SCH (21:59)
--- NOTE | 2019-02-28 23:00 | PN ---
Progress Note, Physician History of Present Illness: Pt still with exertional SOB Pt also complains of RUE pain mostly when moving/lifting RUE - Current Medication List Current Medications: Active Medications Acetaminophen (Tylenol -) 650 mg PO Q6H PRN PRN Reason: FEVER Last Admin: 02/27/19 22:56 Dose: 650 mg Albuterol/Ipratropium (Duoneb -) 1 amp NEB RQID [facility] Last Admin: 02/28/19 20:35 Dose: 1 amp Amlodipine Besylate (Norvasc -) 5 mg PO DAILY [facility] Last Admin: 02/28/19 09:26 Dose: 5 mg Apixaban (Eliquis -) 5 mg PO BID [facility] Last Admin: 02/28/19 21:59 Dose: 5 mg Aspirin (Ecotrin -) 81 mg PO DAILY [facility] Last Admin: 02/28/19 09:25 Dose: 81 mg Atorvastatin Calcium (Lipitor -) 40 mg PO HS [facility] Last Admin: 02/28/19 21:59 Dose: 40 mg Budesonide/Formoterol Fumarate (Symbicort 160/4.5mcg -) 2 puff IH BID [facility] Last Admin: 02/28/19 21:59 Dose: 2 puff Digoxin (Lanoxin -) 0.125 mg PO DAILY [facility] Last Admin: 02/28/19 09:25 Dose: 0.125 mg Escitalopram Oxalate (Lexapro -) 10 mg PO DAILY [facility] Last Admin: 02/28/19 09:25 Dose: 10 mg Furosemide (Lasix Injection -) 40 mg IVPUSH BID@0600,1400 [facility] Last Admin: 02/28/19 13:19 Dose: 40 mg Insulin Aspart (Novolog Vial Sliding Scale -) 1 vial SQ ACHS [facility]; Protocol Last Admin: 02/28/19 22:30 Dose: 4 units Isosorbide Mononitrate (Imdur -) 60 mg PO DAILY [facility] Last Admin: 02/28/19 09:25 Dose: 60 mg Metoprolol Succinate (Toprol Xl -) 75 mg PO DAILY [facility] Last Admin: 02/28/19 09:25 Dose: 75 mg Miscellaneous (Lidoderm Patch Removal) 1 each MC DAILY@2200 [facility] Last Admin: 02/28/19 21:58 Dose: Not Given Sacubitril/Valsartan (Entresto 24 Mg-26 Mg Tablet) 1 tab PO BID [facility] Last Admin: 02/28/19 21:59 Dose: 1 tab Tamsulosin HCl (Flomax -) 0.4 mg PO DAILY@0830 [facility] Last Admin: 02/28/19 08:38 Dose: 0.4 mg - Objective Vital Signs: Vital Signs Temperature 97.7 F 02/28/19 17:00 Pulse Rate 88 02/28/19 17:00 Respiratory Rate 20 02/28/19 17:00 Blood Pressure 122/94 02/28/19 17:00 O2 Sat by Pulse Oximetry (%) 96 02/28/19 20:07 Constitutional: Yes: Well Nourished Neck: Yes: WNL, Supple Cardiovascular: Yes: WNL, Regular Rate and Rhythm Respiratory: Yes: WNL, Regular, CTA Bilaterally Gastrointestinal: Yes: WNL, Normal Bowel Sounds, Soft, Abdomen, Obese Extremities: Yes: Other ((+) Pain on movement of RUE) Edema: Yes Edema: LLE: 1+, RLE: 1+ Labs: CBC, BMP 02/25/19 05:30 02/27/19 05:00 INR, PTT INR 1.11 (0.83-1.09) H 02/24/19 06:00 Problem List - Problems (1) Chronic combined systolic and diastolic CHF, NYHA class 4 Assessment/Plan: Cont IV lasix Monitor electrolytes Code(s): I50.42 - CHRONIC COMBINED SYSTOLIC AND DIASTOLIC HRT FAIL (2) Extremity pain Assessment/Plan: Check xray RUE PT eval Ortho consult Code(s): M79.609 - PAIN IN UNSPECIFIED LIMB (3) Paroxysmal A-fib Assessment/Plan: Heart rate controlled Cont dig/BB/eliquis Code(s): I48.0 - PAROXYSMAL ATRIAL FIBRILLATION (4) Acute respiratory failure with hypoxia and hypercapnia Assessment/Plan: Cont inhalers nebulizer/symbicort Cont BIPAP as needed Code(s): J96.01 - ACUTE RESPIRATORY FAILURE WITH HYPOXIA; J96.02 - ACUTE RESPIRATORY FAILURE WITH HYPERCAPNIA (5) Diabetes Assessment/Plan: Cont sliding scale w/ coverage Code(s): E11.9 - TYPE 2 DIABETES MELLITUS WITHOUT COMPLICATIONS Qualifiers: Diabetes mellitus type: type 2 Diabetes mellitus complication status: without complication (6) Hypertension Assessment/Plan: BP stable Cont asa/norvasc/imdur/toprol Code(s): I10 - ESSENTIAL (PRIMARY) HYPERTENSION (7) HLD (hyperlipidemia) Assessment/Plan: Cont lipitor Code(s): E78.5 - HYPERLIPIDEMIA, UNSPECIFIED (8) Pulmonary HTN Code(s): I27.2 - OTHER SECONDARY PULMONARY HYPERTENSION * DO NOT USE * (9) BPH (benign prostatic hyperplasia) Assessment/Plan: Cont flomax Code(s): N40.0 - BENIGN PROSTATIC HYPERPLASIA WITHOUT LOWER URINRY TRACT SYMP (10) Morbid obesity Code(s): E66.01 - MORBID (SEVERE) OBESITY DUE TO EXCESS CALORIES
[2019-03-01] MEDS: FUROSEMIDE 40 MG/4 ML INJECTABLE VIAL IVPUSH SCH ×2 (07:02→14:23)
[2019-03-01] MEDS: INSULIN SLIDING SCALE (NOVOLOG) 1 VIAL SQ SCH ×4 (07:03→21:54)
[2019-03-01] MEDS: ALBUTEROL SO4 2.5/IPRATROPIUM 0.5 INH SOL 3 ML VIAL.NEB. NEB SCH ×4 (07:40→21:35)
[2019-03-01 08:09] LABS: BASO % 0.2 % (0-2.0); EOS % 1.2 % (0-4.5); HEMATOCRIT 26.6 % (35.4-49); HEMOGLOBIN 8.8 GM/dL (11.7-16.9); LYMPH % 6.7 % (8-40); MCH 34.5 pg (25.7-33.7); MCHC 33.2 g/dl (32.0-35.9); MEAN CELL VOLUME 103.9 fl (80-96); MEAN PLT VOLUME 8.6 fl (7.5-11.1); MONO % 8.9 % (3.8-10.2); PLATELET COUNT 174 K/MM3 (134-434); RBC 2.56 M/mm3 (4.00-5.60); RDW 14.6 % (11.9-15.9)
[2019-03-01 08:29] LABS: ALBUMIN 3.2 g/dl (3.4-5.0); ALK PHOS 162 U/L (45-117); ANION GAP 2 MMOL/L (8-16); BILIRUBIN,TOTAL 1.2 mg/dL (0.2-1); BLOOD UREA NITROGEN 22 mg/dL (7-18); CALCIUM 8.9 mg/dL (8.5-10.1); CHLORIDE 97 mmol/L (98-107); CO2 41 mmol/L (21-32); CREATININE 1.1 mg/dL (0.55-1.3); GLUCOSE,RANDOM 195 mg/dL (74-106); MAGNESIUM 1.7 mg/dL (1.8-2.4); POTASSIUM 3.9 mmol/L (3.5-5.1); SGOT/AST 36 U/L (15-37); SGPT/ALT 24 U/L (13-61); SODIUM 140 mmol/L (136-145); TOT PROT 6.1 g/dl (6.4-8.2)
[2019-03-01] MEDS: ISOSORBIDE MONONITRATE 30 MG TAB.SR.24H (FP) PO SCH (10:16)
[2019-03-01] MEDS: ASPIRIN COATED 81 MG TABLET.EC PO SCH (10:16)
[2019-03-01] MEDS: ESCITALOPRAM OXALATE 10 MG TABLET (FP) PO SCH (10:16)
[2019-03-01] MEDS: amLODIPine BESYLATE 5 MG TABLET (FP) PO SCH (10:16)
[2019-03-01] MEDS: metoPROLOL SUCCINATE 25 MG TAB.SR.24H (FP) PO SCH (10:16)
[2019-03-01] MEDS: TAMSULOSIN HCL 0.4 MG CAP PO SCH (10:16)
[2019-03-01] MEDS: DIGOXIN 0.125 MG TABLET (FP) PO SCH (10:16)
[2019-03-01] MEDS: APIXABAN 5 MG TABLET PO SCH ×2 (10:17→21:54)
[2019-03-01] MEDS: SACUBITRIL/VALSARTAN 24 MG-26 MG TABLET PO SCH ×2 (10:17→21:54)
[2019-03-01] MEDS: BUDESONIDE/FORMETEROL FUMARATE 160/4.5 mcg INHALER IH SCH ×2 (10:18→21:55)
--- NOTE | 2019-03-01 10:33 | PN ---
Progress Note, Physician History of Present Illness: PULMONARY ALERT,OOB-CHAIR,LESS DYSPNEIC. - Current Medication List Current Medications: Active Medications Acetaminophen (Tylenol -) 650 mg PO Q6H PRN PRN Reason: FEVER Last Admin: 02/27/19 22:56 Dose: 650 mg Albuterol/Ipratropium (Duoneb -) 1 amp NEB RQID [facility] Last Admin: 03/01/19 07:40 Dose: 1 amp Amlodipine Besylate (Norvasc -) 5 mg PO DAILY [facility] Last Admin: 03/01/19 10:16 Dose: 5 mg Apixaban (Eliquis -) 5 mg PO BID [facility] Last Admin: 03/01/19 10:17 Dose: 5 mg Aspirin (Ecotrin -) 81 mg PO DAILY [facility] Last Admin: 03/01/19 10:16 Dose: 81 mg Atorvastatin Calcium (Lipitor -) 40 mg PO HS [facility] Last Admin: 02/28/19 21:59 Dose: 40 mg Budesonide/Formoterol Fumarate (Symbicort 160/4.5mcg -) 2 puff IH BID [facility] Last Admin: 03/01/19 10:18 Dose: 2 puff Digoxin (Lanoxin -) 0.125 mg PO DAILY [facility] Last Admin: 03/01/19 10:16 Dose: 0.125 mg Escitalopram Oxalate (Lexapro -) 10 mg PO DAILY [facility] Last Admin: 03/01/19 10:16 Dose: 10 mg Furosemide (Lasix Injection -) 40 mg IVPUSH BID@0600,1400 [facility] Last Admin: 03/01/19 07:02 Dose: 40 mg Insulin Aspart (Novolog Vial Sliding Scale -) 1 vial SQ [facility]; Protocol Last Admin: 03/01/19 07:03 Dose: Not Given Isosorbide Mononitrate (Imdur -) 60 mg PO DAILY [facility] Last Admin: 03/01/19 10:16 Dose: 60 mg Metoprolol Succinate (Toprol Xl -) 75 mg PO DAILY [facility] Last Admin: 03/01/19 10:16 Dose: 75 mg Miscellaneous (Lidoderm Patch Removal) 1 each MC DAILY@2200 [facility] Last Admin: 02/28/19 21:58 Dose: Not Given Sacubitril/Valsartan (Entresto 24 Mg-26 Mg Tablet) 1 tab PO BID [facility] Last Admin: 03/01/19 10:17 Dose: 1 tab Tamsulosin HCl (Flomax -) 0.4 mg PO DAILY@0830 [facility] Last Admin: 03/01/19 10:16 Dose: 0.4 mg - Objective Vital Signs: Vital Signs Temperature 97.8 F 03/01/19 01:30 Pulse Rate 95 H 03/01/19 10:16 Respiratory Rate 20 03/01/19 06:00 Blood Pressure 124/63 03/01/19 06:00 O2 Sat by Pulse Oximetry (%) 96 02/28/19 20:07 Constitutional: Yes: Well Nourished, Calm Eyes: Yes: WNL HENT: Yes: WNL Neck: Yes: WNL Cardiovascular: Yes: Regular Rate and Rhythm, S1, S2 Respiratory: Yes: Diminished Gastrointestinal: Yes: Normal Bowel Sounds, Soft Extremities: Yes: WNL Edema: Yes Labs: CBC, BMP 03/01/19 07:08 03/01/19 07:08 INR, PTT INR 1.11 (0.83-1.09) H 02/24/19 06:00 Assessment/Plan Problem List - Problems (1) Fall Code(s): W19.XXXA - UNSPECIFIED FALL, INITIAL ENCOUNTER (2) Acute respiratory failure with hypoxia and hypercapnia Code(s): J96.01 - ACUTE RESPIRATORY FAILURE WITH HYPOXIA; J96.02 - ACUTE RESPIRATORY FAILURE WITH HYPERCAPNIA (3) Elevated troponin Code(s): R74.8 - ABNORMAL LEVELS OF OTHER SERUM ENZYMES (4) Abdominal bloating Code(s): R14.0 - ABDOMINAL DISTENSION (GASEOUS) (5) CHF (congestive heart failure) Code(s): I50.9 - HEART FAILURE, UNSPECIFIED Qualifiers: Heart failure type: systolic Heart failure chronicity: acute on chronic Qualified Code(s): I50.23 - Acute on chronic systolic (congestive) heart failure (6) Chronic hypoxemic respiratory failure Code(s): J96.11 - CHRONIC RESPIRATORY FAILURE WITH HYPOXIA (7) Diabetes Code(s): E11.9 - TYPE 2 DIABETES MELLITUS WITHOUT COMPLICATIONS Qualifiers: Diabetes mellitus type: type 2 Diabetes mellitus complication status: without complication (8) Morbid obesity Code(s): E66.01 - MORBID (SEVERE) OBESITY DUE TO EXCESS CALORIES (9) Pulmonary HTN Code(s): I27.2 - OTHER SECONDARY PULMONARY HYPERTENSION * DO NOT USE * Assessment/Plan S/P FALL CHRONIC HYPERCAPNEIC HYPOXEMIC RESPIRATORY FAILURE ON HOME 02 3-4 L/M LIKELY [facility] PAF PLAN INHALED BRONCHODILATORS O2 SUPPLEMENTATION DIURETICS DAILY WT NIPPV NEEDED AC DR CARPENTER
--- NOTE | 2019-03-01 10:34 | PN ---
Progress Note (short form) - Note Progress Note: Chief Complaint: sob improving, edema improving. no chest pain, palps, dizziness TELE: AF, rare bursts to 120s- 130s, self limited. Current Medications Acetaminophen (Tylenol -) 650 mg PO Q6H PRN PRN Reason: FEVER Last Admin: 02/27/19 22:56 Dose: 650 mg Albuterol/Ipratropium (Duoneb -) 1 amp NEB RQID [facility] Last Admin: 03/01/19 07:40 Dose: 1 amp Amlodipine Besylate (Norvasc -) 5 mg PO DAILY [facility] Last Admin: 03/01/19 10:16 Dose: 5 mg Apixaban (Eliquis -) 5 mg PO BID [facility] Last Admin: 03/01/19 10:17 Dose: 5 mg Aspirin (Ecotrin -) 81 mg PO DAILY [facility] Last Admin: 03/01/19 10:16 Dose: 81 mg Atorvastatin Calcium (Lipitor -) 40 mg PO HS [facility] Last Admin: 02/28/19 21:59 Dose: 40 mg Budesonide/Formoterol Fumarate (Symbicort 160/4.5mcg -) 2 puff IH BID [facility] Last Admin: 03/01/19 10:18 Dose: 2 puff Digoxin (Lanoxin -) 0.125 mg PO DAILY [facility] Last Admin: 03/01/19 10:16 Dose: 0.125 mg Escitalopram Oxalate (Lexapro -) 10 mg PO DAILY [facility] Last Admin: 03/01/19 10:16 Dose: 10 mg Furosemide (Lasix Injection -) 40 mg IVPUSH BID@0600,1400 [facility] Last Admin: 03/01/19 07:02 Dose: 40 mg Insulin Aspart (Novolog Vial Sliding Scale -) 1 vial SQ [facility]; Protocol Last Admin: 03/01/19 07:03 Dose: Not Given Isosorbide Mononitrate (Imdur -) 60 mg PO DAILY [facility] Last Admin: 03/01/19 10:16 Dose: 60 mg Metoprolol Succinate (Toprol Xl -) 75 mg PO DAILY [facility] Last Admin: 03/01/19 10:16 Dose: 75 mg Miscellaneous (Lidoderm Patch Removal) 1 each MC DAILY@2200 [facility] Last Admin: 02/28/19 21:58 Dose: Not Given Sacubitril/Valsartan (Entresto 24 Mg-26 Mg Tablet) 1 tab PO BID [facility] Last Admin: 03/01/19 10:17 Dose: 1 tab Tamsulosin HCl (Flomax -) 0.4 mg PO DAILY@0830 [facility] Last Admin: 03/01/19 10:16 Dose: 0.4 mg Vital Signs Period Temp Pulse Resp BP Sys/Enamorado Pulse Ox Last 24 Hr 97.7 F-98.6 F 81-95 20-20 121-150/55-94 96 Constitutional: Yes: No Distress Cardiovascular: Yes: Pulse Irregular Gastrointestinal: Yes: Soft, Abdomen, Obese, Pulsatile Mass (bibasilar rales 1/ 3 up) Edema: Yes Edema: LLE: 2+, RLE: 2+ Neurological: Yes: Alert, Oriented - ....Imaging EKG: Image Reviewed Problem List - Problems (1) Elevated troponin Code(s): R74.8 - ABNORMAL LEVELS OF OTHER SERUM ENZYMES (2) Abdominal bloating Code(s): R14.0 - ABDOMINAL DISTENSION (GASEOUS) (3) Chronic combined systolic and diastolic CHF, NYHA class 4 Code(s): I50.42 - CHRONIC COMBINED SYSTOLIC AND DIASTOLIC HRT FAIL (4) Diabetes Code(s): E11.9 - TYPE 2 DIABETES MELLITUS WITHOUT COMPLICATIONS Qualifiers: Diabetes mellitus type: type 2 Diabetes mellitus complication status: without complication (5) Dyspnea Code(s): R06.00 - DYSPNEA, UNSPECIFIED Qualifiers: Dyspnea type: unspecified Qualified Code(s): R06.00 - Dyspnea, unspecified (6) Morbid obesity Code(s): E66.01 - MORBID (SEVERE) OBESITY DUE TO EXCESS CALORIES (7) PSVT (paroxysmal supraventricular tachycardia) Code(s): I47.1 - SUPRAVENTRICULAR TACHYCARDIA (8) Pulmonary HTN Code(s): I27.2 - OTHER SECONDARY PULMONARY HYPERTENSION * DO NOT USE * (9) Atrial fibrillation Code(s): I48.91 - UNSPECIFIED ATRIAL FIBRILLATION Assessment/Plan IMP: 1. PSVT 2. H/o PAF 3. CAD s/p remote h/o coronary PCI 4. Chronic PHTN 5. Chronic combined diastolic/systolic CHF 6. DM 7. Fall, probably mechanical 8. Elevated TnI REC: 1. Elevated TnI unlikely represents ACS as ECG not ischemic and no chest pain symptoms, normal CK Likely due to chronic combined systolic/diastolic CHF and chronic severe PHTN. 2. Echo - tds with EF 50%, unable to evaluate RV function 3. Continue Eliquis as [id number] score is elevated. 4. continue tele 5. Wt down, Cr stable. complains of dyspnea but improving. continue lasix 40 mg IV BID. Daily weights and daily BMP monitor renal fx
--- NOTE | 2019-03-01 15:42 | PN ---
Progress Note (short form) - Note Progress Note: Pt seen and examined. In short he is a 78 year old male patient with multiple medical problems including CHF, + h/o gout, and several recent falls. He c/o severe pain in the right wrist and elbow. He does not c/o severe pain in the right shoulder, T or LS spine. PE Right elbow, wrist and hand are swollen, very tender globally, non specific RUE is grossly NVI. 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 Possible exacerbation of the gout, and/or OA. Rec Right wrist x-rays, rule out fracture Right wrist cock up wrist splint, shoulder sling Ice to right wrist and elbow and elevate right hand Range of motion as tolerated, no restrictions
[2019-03-01] MEDS ORDERED: PT OWN MED DRAWER 7, Y5N ONE (21:09)
--- NOTE | 2019-03-01 21:17 | PN ---
Progress Note, Physician History of Present Illness: Pt still with exertional SOB Pt also complains of RUE pain mostly when moving/lifting RUE - Current Medication List Current Medications: Active Medications Acetaminophen (Tylenol -) 650 mg PO Q6H PRN PRN Reason: FEVER Last Admin: 02/27/19 22:56 Dose: 650 mg Amlodipine Besylate (Norvasc -) 5 mg PO DAILY [facility] Last Admin: 03/01/19 10:16 Dose: 5 mg Apixaban (Eliquis -) 5 mg PO BID [facility] Last Admin: 03/01/19 10:17 Dose: 5 mg Aspirin (Ecotrin -) 81 mg PO DAILY [facility] Last Admin: 03/01/19 10:16 Dose: 81 mg Atorvastatin Calcium (Lipitor -) 40 mg PO HS [facility] Last Admin: 02/28/19 21:59 Dose: 40 mg Budesonide/Formoterol Fumarate (Symbicort 160/4.5mcg -) 2 puff IH BID [facility] Last Admin: 03/01/19 10:18 Dose: 2 puff Digoxin (Lanoxin -) 0.125 mg PO DAILY [facility] Last Admin: 03/01/19 10:16 Dose: 0.125 mg Escitalopram Oxalate (Lexapro -) 10 mg PO DAILY [facility] Last Admin: 03/01/19 10:16 Dose: 10 mg Furosemide (Lasix Injection -) 40 mg IVPUSH BID@0600,1400 [facility] Last Admin: 03/01/19 14:23 Dose: 40 mg Insulin Aspart (Novolog Vial Sliding Scale -) [address] [facility]; Protocol Last Admin: 03/01/19 17:29 Dose: 4 units Isosorbide Mononitrate (Imdur -) 60 mg PO DAILY [facility] Last Admin: 03/01/19 10:16 Dose: 60 mg Metoprolol Succinate (Toprol Xl -) 75 mg PO DAILY [facility] Last Admin: 03/01/19 10:16 Dose: 75 mg Miscellaneous (Lidoderm Patch Removal) 1 each MC DAILY@2200 [facility] Last Admin: 02/28/19 21:58 Dose: Not Given Sacubitril/Valsartan (Entresto 24 Mg-26 Mg Tablet) 1 tab PO BID [facility] Last Admin: 03/01/19 10:17 Dose: 1 tab Tamsulosin HCl (Flomax -) 0.4 mg PO DAILY@0830 [facility] Last Admin: 03/01/19 10:16 Dose: 0.4 mg - Objective Vital Signs: Vital Signs Temperature 100.0 F H 03/01/19 17:00 Pulse Rate 98 H 03/01/19 17:00 Respiratory Rate 20 03/01/19 17:00 Blood Pressure 124/62 03/01/19 17:00 O2 Sat by Pulse Oximetry (%) 97 03/01/19 10:00 Neck: Yes: WNL, Supple Cardiovascular: Yes: WNL, Regular Rate and Rhythm Respiratory: Yes: Diminished Gastrointestinal: Yes: WNL, Normal Bowel Sounds, Soft, Abdomen, Obese Extremities: Yes: Other ((+) swelling rt wrist w/ limited ROM RUE due to pain) Labs: CBC, BMP 03/01/19 07:08 03/01/19 07:08 INR, PTT INR 1.11 (0.83-1.09) H 02/24/19 06:00 Problem List - Problems (1) Chronic combined systolic and diastolic CHF, NYHA class 4 Assessment/Plan: Cont IV lasix Cont entresto Monitor electrolytes Pt still SOB Code(s): I50.42 - CHRONIC COMBINED SYSTOLIC AND DIASTOLIC HRT FAIL (2) Extremity pain Assessment/Plan: Check xray Rt wrist/hand Splint as per ortho Ortho consult noted Cont PT Code(s): M79.609 - PAIN IN UNSPECIFIED LIMB (3) Paroxysmal A-fib Assessment/Plan: Heart rate controlled Cont dig/BB/eliquis Code(s): I48.0 - PAROXYSMAL ATRIAL FIBRILLATION (4) Acute respiratory failure with hypoxia and hypercapnia Assessment/Plan: Cont inhalers nebulizer/symbicort Cont BIPAP as needed wc pt is using at night Code(s): J96.01 - ACUTE RESPIRATORY FAILURE WITH HYPOXIA; J96.02 - ACUTE RESPIRATORY FAILURE WITH HYPERCAPNIA (5) Diabetes Assessment/Plan: Cont sliding scale w/ coverage Code(s): E11.9 - TYPE 2 DIABETES MELLITUS WITHOUT COMPLICATIONS Qualifiers: Diabetes mellitus type: type 2 Diabetes mellitus complication status: without complication (6) Hypertension Assessment/Plan: BP stable Cont asa/norvasc/imdur/toprol Code(s): I10 - ESSENTIAL (PRIMARY) HYPERTENSION (7) HLD (hyperlipidemia) Assessment/Plan: Cont lipitor Code(s): E78.5 - HYPERLIPIDEMIA, UNSPECIFIED (8) Pulmonary HTN Code(s): I27.2 - OTHER SECONDARY PULMONARY HYPERTENSION * DO NOT USE * (9) BPH (benign prostatic hyperplasia) Assessment/Plan: Cont flomax Code(s): N40.0 - BENIGN PROSTATIC HYPERPLASIA WITHOUT LOWER URINRY TRACT SYMP (10) Morbid obesity Code(s): E66.01 - MORBID (SEVERE) OBESITY DUE TO EXCESS CALORIES
[2019-03-01] MEDS: ATORVASTATIN CA 40 MG TABLET (FP) PO SCH (21:54)
[2019-03-02] MEDS: FUROSEMIDE 40 MG/4 ML INJECTABLE VIAL IVPUSH SCH ×2 (06:36→14:23)
[2019-03-02] MEDS: INSULIN SLIDING SCALE (NOVOLOG) 1 VIAL SQ SCH ×4 (06:36→21:47)
[2019-03-02] MEDS: TAMSULOSIN HCL 0.4 MG CAP PO SCH ×2 (08:30→08:52)
--- NOTE | 2019-03-02 08:50 | PN ---
Progress Note (short form) - Note Progress Note: covering for Dr Matos patient examined and chart reviewed patient sitting in bed O2 inplace states " not feeling so well " seems to be voiding "less" Vital Signs Period Temp Pulse Resp BP Sys/Enamorado Pulse Ox Last 24 Hr 98.1 F-100.0 F 85-98 20-20 104-148/49-73 97-97 heart s1/S2 lungs decreased BS throughout some scattered coarse wheezing abd obese Ext + edema CBC, BMP 03/02/19 10:30 03/02/19 10:30 Active Medications Acetaminophen (Tylenol -) 650 mg PO Q6H PRN PRN Reason: FEVER Last Admin: 02/27/19 22:56 Dose: 650 mg Amlodipine Besylate (Norvasc -) 5 mg PO DAILY [facility] Last Admin: 03/02/19 09:57 Dose: 5 mg Apixaban (Eliquis -) 5 mg PO BID [facility] Last Admin: 03/02/19 09:55 Dose: 5 mg Aspirin (Ecotrin -) 81 mg PO DAILY [facility] Last Admin: 03/02/19 09:54 Dose: 81 mg Atorvastatin Calcium (Lipitor -) 40 mg PO HS [facility] Last Admin: 03/01/19 21:54 Dose: 40 mg Budesonide/Formoterol Fumarate (Symbicort 160/4.5mcg -) 2 puff IH BID [facility] Last Admin: 03/02/19 09:58 Dose: 2 puff Digoxin (Lanoxin -) 0.125 mg PO DAILY [facility] Last Admin: 03/02/19 09:57 Dose: 0.125 mg Escitalopram Oxalate (Lexapro -) 10 mg PO DAILY [facility] Last Admin: 03/02/19 09:57 Dose: 10 mg Furosemide (Lasix Injection -) 80 mg IVPUSH BID@0600,1400 [facility] Insulin Aspart (Novolog Vial Sliding Scale -) 1 vial SQ ACHS [facility]; Protocol Last Admin: 03/02/19 11:56 Dose: 2 units Isosorbide Mononitrate (Imdur -) 60 mg PO DAILY [facility] Last Admin: 03/02/19 09:56 Dose: 60 mg Metoprolol Succinate (Toprol Xl -) 75 mg PO DAILY [facility] Last Admin: 03/02/19 09:58 Dose: 75 mg Miscellaneous (Lidoderm Patch Removal) 1 each MC DAILY@2200 [facility] Last Admin: 02/28/19 21:58 Dose: Not Given Sacubitril/Valsartan (Entresto 24 Mg-26 Mg Tablet) 1 tab PO BID [facility] Last Admin: 03/02/19 09:55 Dose: 1 tab Tamsulosin HCl (Flomax -) 0.4 mg PO DAILY@0830 [facility] Last Admin: 03/02/19 08:52 Dose: 0.4 mg MP: 1. PSVT 2. H/o PAF 3. CAD s/p remote h/o coronary PCI 4. Chronic PHTN 5. Chronic combined diastolic/systolic CHF 6. DM 7. Fall, probably mechanical 8. Elevated TnI REC: 1. Elevated TnI unlikely represents ACS as ECG not ischemic and no chest pain symptoms, normal CK Likely due to chronic combined systolic/diastolic CHF and chronic severe PHTN. 2. Echo - tds with EF 50%, unable to evaluate RV function 3. Continue Eliquis as [id number] score is elevated. 4. continue tele 5. Cr stable. complains of dyspnea but improving. has baseline dyspnea on exertion on home O2 but does not feel at baseline, weight up today and feels he is urinating less. increase lasix to 80 mg IV BID. Daily weights and daily BMP monitor renal fx
[2019-03-02] MEDS ORDERED: PT OWN MED DRAWER 7, Y5N ONE ×2 (09:38→21:16)
[2019-03-02] MEDS: ASPIRIN COATED 81 MG TABLET.EC PO SCH (09:54)
[2019-03-02] MEDS: SACUBITRIL/VALSARTAN 24 MG-26 MG TABLET PO SCH ×2 (09:55→21:47)
[2019-03-02] MEDS: APIXABAN 5 MG TABLET PO SCH ×2 (09:55→21:47)
[2019-03-02] MEDS: ISOSORBIDE MONONITRATE 30 MG TAB.SR.24H (FP) PO SCH (09:56)
[2019-03-02] MEDS: amLODIPine BESYLATE 5 MG TABLET (FP) PO SCH (09:57)
[2019-03-02] MEDS: DIGOXIN 0.125 MG TABLET (FP) PO SCH (09:57)
[2019-03-02] MEDS: ESCITALOPRAM OXALATE 10 MG TABLET (FP) PO SCH (09:57)
[2019-03-02] MEDS: BUDESONIDE/FORMETEROL FUMARATE 160/4.5 mcg INHALER IH SCH ×2 (09:58→21:48)
[2019-03-02] MEDS: metoPROLOL SUCCINATE 25 MG TAB.SR.24H (FP) PO SCH (09:58)
--- NOTE | 2019-03-02 10:37 | PN ---
Progress Note (short form) - Note Progress Note: Pt seen and examined. He states this am that his right shoulder and elbow are feeling better. He has ice on his right wrist. 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 Imp Right shoulder and elbow are improved. Right wrist is doing ok, no fracture, no surgery needed. Rec Ice to all 3. Brace to right wrist. Range of motion exercises as tolerated to all 3. P.T. if needed. No specific restrictions. Can be DC'd from an ortho pov
[2019-03-02 10:53] LABS: BASO % 0.5 % (0-2.0); EOS % 0.6 % (0-4.5); HEMATOCRIT 27.7 % (35.4-49); HEMOGLOBIN 9.2 GM/dL (11.7-16.9); LYMPH % 5.6 % (8-40); MCH 34.4 pg (25.7-33.7); MCHC 33.1 g/dl (32.0-35.9); MEAN CELL VOLUME 103.8 fl (80-96); MEAN PLT VOLUME 8.2 fl (7.5-11.1); MONO % 7.9 % (3.8-10.2); NEUT % 85.4 % (42.8-82.8); PLATELET COUNT 204 K/MM3 (134-434); RBC 2.67 M/mm3 (4.00-5.60); RDW 14.6 % (11.9-15.9); WHITE BLOOD COUNT 10.4 K/mm3 (4.0-10.0)
--- NOTE | 2019-03-02 10:58 | PN ---
Progress Note (short form) - Note Progress Note: Chief Complaint: sob improving, edema improving. no chest pain, palps, dizziness. feels like not urinating as much today TELE: AF, rare bursts to 120s- 130s, self limited. Current Medications Acetaminophen (Tylenol -) 650 mg PO Q6H PRN PRN Reason: FEVER Last Admin: 02/27/19 22:56 Dose: 650 mg Amlodipine Besylate (Norvasc -) 5 mg PO DAILY [facility] Last Admin: 03/02/19 09:57 Dose: 5 mg Apixaban (Eliquis -) 5 mg PO BID [facility] Last Admin: 03/02/19 09:55 Dose: 5 mg Aspirin (Ecotrin -) 81 mg PO DAILY [facility] Last Admin: 03/02/19 09:54 Dose: 81 mg Atorvastatin Calcium (Lipitor -) 40 mg PO HS [facility] Last Admin: 03/01/19 21:54 Dose: 40 mg Budesonide/Formoterol Fumarate (Symbicort 160/4.5mcg -) 2 puff IH BID [facility] Last Admin: 03/02/19 09:58 Dose: 2 puff Digoxin (Lanoxin -) 0.125 mg PO DAILY [facility] Last Admin: 03/02/19 09:57 Dose: 0.125 mg Escitalopram Oxalate (Lexapro -) 10 mg PO DAILY [facility] Last Admin: 03/02/19 09:57 Dose: 10 mg Furosemide (Lasix Injection -) 40 mg IVPUSH BID@0600,1400 [facility] Last Admin: 03/02/19 06:36 Dose: 40 mg Insulin Aspart (Novolog Vial Sliding Scale -) 1 vial SQ [facility]; Protocol Last Admin: 03/02/19 06:36 Dose: 4 units Isosorbide Mononitrate (Imdur -) 60 mg PO DAILY [facility] Last Admin: 03/02/19 09:56 Dose: 60 mg Metoprolol Succinate (Toprol Xl -) 75 mg PO DAILY [facility] Last Admin: 03/02/19 09:58 Dose: 75 mg Miscellaneous (Lidoderm Patch Removal) 1 each MC DAILY@2200 [facility] Last Admin: 02/28/19 21:58 Dose: Not Given Sacubitril/Valsartan (Entresto 24 Mg-26 Mg Tablet) 1 tab PO BID [facility] Last Admin: 03/02/19 09:55 Dose: 1 tab Tamsulosin HCl (Flomax -) 0.4 mg PO DAILY@0830 [facility] Last Admin: 03/02/19 08:52 Dose: 0.4 mg Vital Signs Period Temp Pulse Resp BP Sys/Enamorado Pulse Ox Last 24 Hr 98.1 F-100.0 F 83-98 20-20 104-148/50-73 97 Constitutional: Yes: No Distress Cardiovascular: Yes: Pulse Irregular Gastrointestinal: Yes: Soft, Abdomen, Obese, Pulsatile Mass (bibasilar rales 1/ 3 up) Edema: Yes Edema: LLE: 2+, RLE: 2+ Neurological: Yes: Alert, Oriented - ....Imaging EKG: Image Reviewed Problem List - Problems (1) Elevated troponin Code(s): R74.8 - ABNORMAL LEVELS OF OTHER SERUM ENZYMES (2) Abdominal bloating Code(s): R14.0 - ABDOMINAL DISTENSION (GASEOUS) (3) Chronic combined systolic and diastolic CHF, NYHA class 4 Code(s): I50.42 - CHRONIC COMBINED SYSTOLIC AND DIASTOLIC HRT FAIL (4) Diabetes Code(s): E11.9 - TYPE 2 DIABETES MELLITUS WITHOUT COMPLICATIONS Qualifiers: Diabetes mellitus type: type 2 Diabetes mellitus complication status: without complication (5) Dyspnea Code(s): R06.00 - DYSPNEA, UNSPECIFIED Qualifiers: Dyspnea type: unspecified Qualified Code(s): R06.00 - Dyspnea, unspecified (6) Morbid obesity Code(s): E66.01 - MORBID (SEVERE) OBESITY DUE TO EXCESS CALORIES (7) PSVT (paroxysmal supraventricular tachycardia) Code(s): I47.1 - SUPRAVENTRICULAR TACHYCARDIA (8) Pulmonary HTN Code(s): I27.2 - OTHER SECONDARY PULMONARY HYPERTENSION * DO NOT USE * (9) Atrial fibrillation Code(s): I48.91 - UNSPECIFIED ATRIAL FIBRILLATION Assessment/Plan IMP: 1. PSVT 2. H/o PAF 3. CAD s/p remote h/o coronary PCI 4. Chronic PHTN 5. Chronic combined diastolic/systolic CHF 6. DM 7. Fall, probably mechanical 8. Elevated TnI REC: 1. Elevated TnI unlikely represents ACS as ECG not ischemic and no chest pain symptoms, normal CK Likely due to chronic combined systolic/diastolic CHF and chronic severe PHTN. 2. Echo - tds with EF 50%, unable to evaluate RV function 3. Continue Eliquis as [id number] score is elevated. 4. continue tele 5. Cr stable. complains of dyspnea but improving. has baseline dyspnea on exertion on home O2 but does not feel at baseline, weight up today and feels he is urinating less. increase lasix to 80 mg IV BID. Daily weights and daily BMP monitor renal fx
--- NOTE | 2019-03-02 11:15 | PN ---
Progress Note, Physician History of Present Illness: PULMONARY ALERT,SITTING UP IN BED ,COMFORTABLE,-RESP DISTRESS - Current Medication List Current Medications: Active Medications Acetaminophen (Tylenol -) 650 mg PO Q6H PRN PRN Reason: FEVER Last Admin: 02/27/19 22:56 Dose: 650 mg Amlodipine Besylate (Norvasc -) 5 mg PO DAILY [facility] Last Admin: 03/02/19 09:57 Dose: 5 mg Apixaban (Eliquis -) 5 mg PO BID [facility] Last Admin: 03/02/19 09:55 Dose: 5 mg Aspirin (Ecotrin -) 81 mg PO DAILY [facility] Last Admin: 03/02/19 09:54 Dose: 81 mg Atorvastatin Calcium (Lipitor -) 40 mg PO HS [facility] Last Admin: 03/01/19 21:54 Dose: 40 mg Budesonide/Formoterol Fumarate (Symbicort 160/4.5mcg -) 2 puff IH BID [facility] Last Admin: 03/02/19 09:58 Dose: 2 puff Digoxin (Lanoxin -) 0.125 mg PO DAILY [facility] Last Admin: 03/02/19 09:57 Dose: 0.125 mg Escitalopram Oxalate (Lexapro -) 10 mg PO DAILY [facility] Last Admin: 03/02/19 09:57 Dose: 10 mg Furosemide (Lasix Injection -) 40 mg IVPUSH BID@0600,1400 [facility] Last Admin: 03/02/19 06:36 Dose: 40 mg Insulin Aspart (Novolog Vial Sliding Scale -) 1 vial SQ [facility]; Protocol Last Admin: 03/02/19 06:36 Dose: 4 units Isosorbide Mononitrate (Imdur -) 60 mg PO DAILY [facility] Last Admin: 03/02/19 09:56 Dose: 60 mg Metoprolol Succinate (Toprol Xl -) 75 mg PO DAILY [facility] Last Admin: 03/02/19 09:58 Dose: 75 mg Miscellaneous (Lidoderm Patch Removal) 1 each MC DAILY@2200 [facility] Last Admin: 02/28/19 21:58 Dose: Not Given Sacubitril/Valsartan (Entresto 24 Mg-26 Mg Tablet) 1 tab PO BID [facility] Last Admin: 03/02/19 09:55 Dose: 1 tab Tamsulosin HCl (Flomax -) 0.4 mg PO DAILY@0830 [facility] Last Admin: 03/02/19 08:52 Dose: 0.4 mg - Objective Vital Signs: Vital Signs Temperature 98.6 F 03/02/19 09:50 Pulse Rate 83 03/02/19 09:57 Respiratory Rate 20 03/02/19 09:50 Blood Pressure 108/72 03/02/19 09:50 O2 Sat by Pulse Oximetry (%) 97 03/01/19 22:00 Constitutional: Yes: Well Nourished, Calm Eyes: Yes: WNL HENT: Yes: WNL Neck: Yes: WNL Cardiovascular: Yes: Pulse Irregular, S1, S2 Respiratory: Yes: Diminished Gastrointestinal: Yes: Normal Bowel Sounds, Soft Extremities: Yes: WNL Edema: Yes Labs: CBC, BMP 03/02/19 10:30 INR, PTT INR 1.11 (0.83-1.09) H 02/24/19 06:00 Assessment/Plan Problem List - Problems (1) Fall Code(s): W19.XXXA - UNSPECIFIED FALL, INITIAL ENCOUNTER (2) Acute respiratory failure with hypoxia and hypercapnia Code(s): J96.01 - ACUTE RESPIRATORY FAILURE WITH HYPOXIA; J96.02 - ACUTE RESPIRATORY FAILURE WITH HYPERCAPNIA (3) Elevated troponin Code(s): R74.8 - ABNORMAL LEVELS OF OTHER SERUM ENZYMES (4) Abdominal bloating Code(s): R14.0 - ABDOMINAL DISTENSION (GASEOUS) (5) CHF (congestive heart failure) Code(s): I50.9 - HEART FAILURE, UNSPECIFIED Qualifiers: Heart failure type: systolic Heart failure chronicity: acute on chronic Qualified Code(s): I50.23 - Acute on chronic systolic (congestive) heart failure (6) Chronic hypoxemic respiratory failure Code(s): J96.11 - CHRONIC RESPIRATORY FAILURE WITH HYPOXIA (7) Diabetes Code(s): E11.9 - TYPE 2 DIABETES MELLITUS WITHOUT COMPLICATIONS Qualifiers: Diabetes mellitus type: type 2 Diabetes mellitus complication status: without complication (8) Morbid obesity Code(s): E66.01 - MORBID (SEVERE) OBESITY DUE TO EXCESS CALORIES (9) Pulmonary HTN Code(s): I27.2 - OTHER SECONDARY PULMONARY HYPERTENSION * DO NOT USE * Assessment/Plan S/P FALL CHRONIC HYPERCAPNEIC HYPOXEMIC RESPIRATORY FAILURE ON HOME 02 3-4 L/M LIKELY [facility] PAF PLAN INHALED BRONCHODILATORS O2 SUPPLEMENTATION DIURETICS DAILY WT NIPPV NEEDED AC DR CARPENTER
[2019-03-02 11:21] LABS: ANION GAP 4 MMOL/L (8-16); BLOOD UREA NITROGEN 27 mg/dL (7-18); CALCIUM 9.2 mg/dL (8.5-10.1); CHLORIDE 95 mmol/L (98-107); CO2 38 mmol/L (21-32); CREATININE 1.2 mg/dL (0.55-1.3); GLUCOSE,RANDOM 218 mg/dL (74-106); POTASSIUM 3.7 mmol/L (3.5-5.1); SODIUM 136 mmol/L (136-145)
[2019-03-02] MEDS: ATORVASTATIN CA 40 MG TABLET (FP) PO SCH (21:47)
[2019-03-02] MEDS: LIDOCAINE PATCH REMOVAL MC SCH (21:47)
[2019-03-02] MEDS: ACETAMINOPHEN 325 MG TABLET (FP) PO PRN (22:01)
[2019-03-03] MEDS: INSULIN SLIDING SCALE (NOVOLOG) 1 VIAL SQ SCH ×4 (06:12→22:37)
[2019-03-03 06:37] LABS: BASO % 0.3 % (0-2.0); EOS % 1.4 % (0-4.5); HEMATOCRIT 24.4 % (35.4-49); HEMOGLOBIN 8.2 GM/dL (11.7-16.9); LYMPH % 6.2 % (8-40); MCH 34.7 pg (25.7-33.7); MCHC 33.5 g/dl (32.0-35.9); MEAN CELL VOLUME 103.3 fl (80-96); MEAN PLT VOLUME 8.5 fl (7.5-11.1); MONO % 9.5 % (3.8-10.2); NEUT % 82.6 % (42.8-82.8); PLATELET COUNT 214 K/MM3 (134-434); RBC 2.36 M/mm3 (4.00-5.60); RDW 14.4 % (11.9-15.9); WHITE BLOOD COUNT 8.6 K/mm3 (4.0-10.0)
[2019-03-03] MEDS: FUROSEMIDE 40 MG/4 ML INJECTABLE VIAL IVPUSH SCH ×2 (06:47→14:32)
[2019-03-03 07:04] LABS: ANION GAP 4 MMOL/L (8-16); BLOOD UREA NITROGEN 26 mg/dL (7-18); CHLORIDE 96 mmol/L (98-107); CO2 37 mmol/L (21-32); GLUCOSE,RANDOM 164 mg/dL (74-106); POTASSIUM 3.5 mmol/L (3.5-5.1); SODIUM 136 mmol/L (136-145)
--- NOTE | 2019-03-03 09:55 | PN ---
Progress Note (short form) - Note Progress Note: covering for Dr Matos patient examined and chart reviewed patient sitting in bed O2 inplace states " not feeling so well " better than yesterday seems to be voiding more today ( lasix was increased yesterday ) Vital Signs Period Temp Pulse Resp BP Sys/Enamorado Pulse Ox Last 24 Hr 97.8 F-99.1 F 83-96 20-20 104-136/46-74 98-99 heart s1/S2 lungs decreased BS throughout some scattered wheezing abd obese Ext + 2 edema bilat LE CBC, BMP 03/03/19 05:30 03/03/19 05:30 CBC, BMP 03/02/19 10:30 03/02/19 10:30 Active Medications Acetaminophen (Tylenol -) 650 mg PO Q6H PRN PRN Reason: FEVER Last Admin: 03/02/19 22:01 Dose: 650 mg Amlodipine Besylate (Norvasc -) 5 mg PO DAILY [facility] Last Admin: 03/02/19 09:57 Dose: 5 mg Apixaban (Eliquis -) 5 mg PO BID [facility] Last Admin: 03/02/19 21:47 Dose: 5 mg Aspirin (Ecotrin -) 81 mg PO DAILY [facility] Last Admin: 03/02/19 09:54 Dose: 81 mg Atorvastatin Calcium (Lipitor -) 40 mg PO HS [facility] Last Admin: 03/02/19 21:47 Dose: 40 mg Budesonide/Formoterol Fumarate (Symbicort 160/4.5mcg -) 2 puff IH BID [facility] Last Admin: 03/02/19 21:48 Dose: 2 puff Digoxin (Lanoxin -) 0.125 mg PO DAILY [facility] Last Admin: 03/02/19 09:57 Dose: 0.125 mg Escitalopram Oxalate (Lexapro -) 10 mg PO DAILY [facility] Last Admin: 03/02/19 09:57 Dose: 10 mg Furosemide (Lasix Injection -) 80 mg IVPUSH BID@0600,1400 [facility] Last Admin: 03/03/19 06:47 Dose: 80 mg Insulin Aspart (Novolog Vial Sliding Scale -) 1 vial SQ ACHS [facility]; Protocol Last Admin: 03/03/19 06:12 Dose: Not Given Isosorbide Mononitrate (Imdur -) 60 mg PO DAILY [facility] Last Admin: 03/02/19 09:56 Dose: 60 mg Metoprolol Succinate (Toprol Xl -) 75 mg PO DAILY [facility] Last Admin: 03/02/19 09:58 Dose: 75 mg Miscellaneous (Lidoderm Patch Removal) 1 each MC DAILY@2200 [facility] Last Admin: 03/02/19 21:47 Dose: Not Given Sacubitril/Valsartan (Entresto 24 Mg-26 Mg Tablet) 1 tab PO BID [facility] Last Admin: 03/02/19 21:47 Dose: 1 tab Tamsulosin HCl (Flomax -) 0.4 mg PO DAILY@0830 [facility] Last Admin: 03/02/19 08:52 Dose: 0.4 mg MP: 1. PSVT 2. H/o PAF 3. CAD s/p remote h/o coronary PCI 4. Chronic PHTN 5. Chronic combined diastolic/systolic CHF 6. DM 7. Fall, probably mechanical 8. Elevated TnI REC: 1. Elevated TnI unlikely represents ACS as ECG not ischemic and no chest pain symptoms, normal CK Likely due to chronic combined systolic/diastolic CHF and chronic severe PHTN. 2. Echo - tds with EF 50%, unable to evaluate RV function 3. Continue Eliquis as [id number] score is elevated. 4. continue tele 5. Cr stable. complains of dyspnea but improving. has baseline dyspnea on exertion on home O2 but does not feel at baseline, weight up today and feels he is urinating less. increase lasix to 80 mg IV BID. Daily weights and daily BMP monitor renal fx
[2019-03-03] MEDS: ASPIRIN COATED 81 MG TABLET.EC PO SCH (10:06)
[2019-03-03] MEDS: TAMSULOSIN HCL 0.4 MG CAP PO SCH (10:06)
[2019-03-03] MEDS: amLODIPine BESYLATE 5 MG TABLET (FP) PO SCH (10:06)
[2019-03-03] MEDS: ISOSORBIDE MONONITRATE 30 MG TAB.SR.24H (FP) PO SCH (10:06)
[2019-03-03] MEDS: APIXABAN 5 MG TABLET PO SCH ×2 (10:06→22:36)
[2019-03-03] MEDS: metoPROLOL SUCCINATE 25 MG TAB.SR.24H (FP) PO SCH (10:06)
[2019-03-03] MEDS: ESCITALOPRAM OXALATE 10 MG TABLET (FP) PO SCH (10:06)
[2019-03-03] MEDS: DIGOXIN 0.125 MG TABLET (FP) PO SCH (10:07)
[2019-03-03] MEDS: SACUBITRIL/VALSARTAN 24 MG-26 MG TABLET PO SCH ×2 (10:07→22:36)
[2019-03-03] MEDS: BUDESONIDE/FORMETEROL FUMARATE 160/4.5 mcg INHALER IH SCH ×2 (10:10→22:38)
--- NOTE | 2019-03-03 11:18 | PN ---
Progress Note (short form) - Note Progress Note: s: sob improving, edema improving. no chest pain, palps, dizziness. TELE: AF, rate ok Current Medications Generic Name Dose Route Start Last Admin Trade Name Freq PRN Reason Stop Dose Admin Acetaminophen 650 mg 02/27/19 15:05 03/02/19 22:01 Tylenol - PO 650 mg Q6H PRN Administration FEVER Amlodipine Besylate 5 mg 02/25/19 10:00 03/03/19 10:06 Norvasc - PO 5 mg DAILY [facility] Administration Apixaban 5 mg 02/25/19 10:00 03/03/19 10:06 Eliquis - PO 5 mg BID [facility] Administration Aspirin 81 mg 02/25/19 10:00 03/03/19 10:06 Ecotrin - PO 81 mg DAILY [facility] Administration Atorvastatin Calcium 40 mg 02/24/19 22:00 03/02/19 21:47 Lipitor - PO 40 mg HS [facility] Administration Budesonide/Formoterol Fumarate 2 puff 02/25/19 22:00 03/03/19 10:10 Symbicort 160/4.5mcg - IH 2 puff BID [facility] Administration Digoxin 0.125 mg 02/26/19 10:00 03/03/19 10:07 Lanoxin - PO 0.125 mg DAILY [facility] Administration Escitalopram Oxalate 10 mg 02/25/19 10:00 03/03/19 10:06 Lexapro - PO 10 mg DAILY [facility] Administration Furosemide 80 mg 03/02/19 11:30 03/03/19 06:47 Lasix Injection - IVPUSH 80 mg BID@0600,1400 [facility] Administration Insulin Aspart 1 vial 02/24/19 22:00 03/03/19 06:12 Novolog Vial Sliding Scale - SQ Not Given ACHS [facility] Protocol Isosorbide Mononitrate 60 mg 02/25/19 10:00 03/03/19 10:06 Imdur - PO 60 mg DAILY [facility] Administration Metoprolol Succinate 75 mg 02/26/19 10:00 03/03/19 10:06 Toprol Xl - PO 75 mg DAILY [facility] Administration Miscellaneous 1 each 02/24/19 22:00 03/02/19 21:47 Lidoderm Patch Removal MC Not Given DAILY@2200 [facility] Sacubitril/Valsartan 1 tab 02/24/19 22:00 03/03/19 10:07 Entresto 24 Mg-26 Mg Tablet PO 1 tab BID [facility] Administration Tamsulosin HCl 0.4 mg 02/25/19 08:30 03/03/19 10:06 Flomax - PO 0.4 mg DAILY@0830 [facility] Administration Vital Signs Period Temp Pulse Resp BP Sys/Enam[place]ado Pulse Ox Last 24 Hr 97.8 F-99.1 F 83-96 20-20 104-136/50-74 98-99 Constitutional: Yes: No Distress Cardiovascular: Yes: Pulse Irregular Gastrointestinal: Yes: Soft, Abdomen, Obese, Pulsatile Mass (bibasilar rales 1/ 3 up) Edema: Yes Edema: LLE: 2+, RLE: 2+ Neurological: Yes: Alert, Oriented - ....Imaging EKG: Image Reviewed CBC, BMP 03/03/19 05:30 03/03/19 05:30 Problem List - Problems (1) Elevated troponin Code(s): R74.8 - ABNORMAL LEVELS OF OTHER SERUM ENZYMES (2) Abdominal bloating Code(s): R14.0 - ABDOMINAL DISTENSION (GASEOUS) (3) Chronic combined systolic and diastolic CHF, NYHA class 4 Code(s): I50.42 - CHRONIC COMBINED SYSTOLIC AND DIASTOLIC HRT FAIL (4) Diabetes Code(s): E11.9 - TYPE 2 DIABETES MELLITUS WITHOUT COMPLICATIONS Qualifiers: Diabetes mellitus type: type 2 Diabetes mellitus complication status: without complication (5) Dyspnea Code(s): R06.00 - DYSPNEA, UNSPECIFIED Qualifiers: Dyspnea type: unspecified Qualified Code(s): R06.00 - Dyspnea, unspecified (6) Morbid obesity Code(s): E66.01 - MORBID (SEVERE) OBESITY DUE TO EXCESS CALORIES (7) PSVT (paroxysmal supraventricular tachycardia) Code(s): I47.1 - SUPRAVENTRICULAR TACHYCARDIA (8) Pulmonary HTN Code(s): I27.2 - OTHER SECONDARY PULMONARY HYPERTENSION * DO NOT USE * (9) Atrial fibrillation Code(s): I48.91 - UNSPECIFIED ATRIAL FIBRILLATION Assessment/Plan IMP: 1. PSVT 2. H/o PAF 3. CAD s/p remote h/o coronary PCI 4. Chronic PHTN 5. Chronic combined diastolic/systolic CHF 6. DM 7. Fall, probably mechanical 8. Elevated TnI REC: 1. Elevated TnI unlikely represents ACS as ECG not ischemic and no chest pain symptoms, normal CK Likely due to chronic combined systolic/diastolic CHF and chronic severe PHTN. 2. Echo - tds with EF 50%, unable to evaluate RV function 3. Continue Eliquis as [id number] score is elevated. 4. can dc tele 5. Cr stable. complains of dyspnea but improving. has baseline dyspnea on exertion on home O2 but does not feel at baseline. cont lasix 80 mg IV BID. Daily weights and daily BMP monitor renal fx
--- NOTE | 2019-03-03 13:53 | PN ---
Progress Note, Physician History of Present Illness: PULMONARY ALERT,OOB-CHAIR,FEELING BETTER LESS SOB, - Current Medication List Current Medications: Active Medications Acetaminophen (Tylenol -) 650 mg PO Q6H PRN PRN Reason: FEVER Last Admin: 03/02/19 22:01 Dose: 650 mg Amlodipine Besylate (Norvasc -) 5 mg PO DAILY [facility] Last Admin: 03/03/19 10:06 Dose: 5 mg Apixaban (Eliquis -) 5 mg PO BID [facility] Last Admin: 03/03/19 10:06 Dose: 5 mg Aspirin (Ecotrin -) 81 mg PO DAILY [facility] Last Admin: 03/03/19 10:06 Dose: 81 mg Atorvastatin Calcium (Lipitor -) 40 mg PO HS [facility] Last Admin: 03/02/19 21:47 Dose: 40 mg Budesonide/Formoterol Fumarate (Symbicort 160/4.5mcg -) 2 puff IH BID [facility] Last Admin: 03/03/19 10:10 Dose: 2 puff Digoxin (Lanoxin -) 0.125 mg PO DAILY [facility] Last Admin: 03/03/19 10:07 Dose: 0.125 mg Escitalopram Oxalate (Lexapro -) 10 mg PO DAILY [facility] Last Admin: 03/03/19 10:06 Dose: 10 mg Furosemide (Lasix Injection -) 80 mg IVPUSH BID@0600,1400 [facility] Last Admin: 03/03/19 06:47 Dose: 80 mg Insulin Aspart (Novolog Vial Sliding Scale -) [address] [facility]; Protocol Last Admin: 03/03/19 12:14 Dose: 2 units Isosorbide Mononitrate (Imdur -) 60 mg PO DAILY [facility] Last Admin: 03/03/19 10:06 Dose: 60 mg Metoprolol Succinate (Toprol Xl -) 75 mg PO DAILY [facility] Last Admin: 03/03/19 10:06 Dose: 75 mg Miscellaneous (Lidoderm Patch Removal) 1 each MC DAILY@2200 [facility] Last Admin: 03/02/19 21:47 Dose: Not Given Sacubitril/Valsartan (Entresto 24 Mg-26 Mg Tablet) 1 tab PO BID [facility] Last Admin: 03/03/19 10:07 Dose: 1 tab Tamsulosin HCl (Flomax -) 0.4 mg PO DAILY@0830 [facility] Last Admin: 03/03/19 10:06 Dose: 0.4 mg - Objective Vital Signs: Vital Signs Temperature 98.8 F 03/03/19 09:00 Pulse Rate 95 H 03/03/19 10:07 Respiratory Rate 20 03/03/19 10:00 Blood Pressure 118/46 L 03/03/19 09:00 O2 Sat by Pulse Oximetry (%) 99 03/03/19 10:00 Constitutional: Yes: Well Nourished, Calm Eyes: Yes: WNL HENT: Yes: WNL Neck: Yes: WNL Cardiovascular: Yes: Pulse Irregular, S1, S2 Respiratory: Yes: Rales (BILATERAL RALES 1/3 UP) Gastrointestinal: Yes: Normal Bowel Sounds, Soft Extremities: Yes: WNL Edema: Yes Labs: CBC, BMP 03/03/19 05:30 03/03/19 05:30 INR, PTT INR 1.11 (0.83-1.09) H 02/24/19 06:00 Assessment/Plan Problem List - Problems (1) Fall Code(s): W19.XXXA - UNSPECIFIED FALL, INITIAL ENCOUNTER (2) Acute respiratory failure with hypoxia and hypercapnia Code(s): J96.01 - ACUTE RESPIRATORY FAILURE WITH HYPOXIA; J96.02 - ACUTE RESPIRATORY FAILURE WITH HYPERCAPNIA (3) Elevated troponin Code(s): R74.8 - ABNORMAL LEVELS OF OTHER SERUM ENZYMES (4) Abdominal bloating Code(s): R14.0 - ABDOMINAL DISTENSION (GASEOUS) (5) CHF (congestive heart failure) Code(s): I50.9 - HEART FAILURE, UNSPECIFIED Qualifiers: Heart failure type: systolic Heart failure chronicity: acute on chronic Qualified Code(s): I50.23 - Acute on chronic systolic (congestive) heart failure (6) Chronic hypoxemic respiratory failure Code(s): J96.11 - CHRONIC RESPIRATORY FAILURE WITH HYPOXIA (7) Diabetes Code(s): E11.9 - TYPE 2 DIABETES MELLITUS WITHOUT COMPLICATIONS Qualifiers: Diabetes mellitus type: type 2 Diabetes mellitus complication status: without complication (8) Morbid obesity Code(s): E66.01 - MORBID (SEVERE) OBESITY DUE TO EXCESS CALORIES (9) Pulmonary HTN Code(s): I27.2 - OTHER SECONDARY PULMONARY HYPERTENSION * DO NOT USE * Assessment/Plan S/P FALL CHRONIC HYPERCAPNEIC HYPOXEMIC RESPIRATORY FAILURE ON HOME 02 3-4 L/M LIKELY [facility] PAF PLAN INHALED BRONCHODILATORS O2 SUPPLEMENTATION DIURETICS DAILY WT NIPPV NEEDED AC DR CARPENTER
[2019-03-03] MEDS: ATORVASTATIN CA 40 MG TABLET (FP) PO SCH (22:36)
[2019-03-03] MEDS: LIDOCAINE PATCH REMOVAL MC SCH (22:37)
[2019-03-04] MEDS: INSULIN SLIDING SCALE (NOVOLOG) 1 VIAL SQ SCH ×4 (07:12→21:46)
[2019-03-04] MEDS: FUROSEMIDE 40 MG/4 ML INJECTABLE VIAL IVPUSH SCH ×2 (07:18→14:02)
--- NOTE | 2019-03-04 09:59 | PN ---
Progress Note, Physician Chief Complaint: weight is down TELE: MARIELA campbell PACs - Current Medication List Current Medications: Active Medications Acetaminophen (Tylenol -) 650 mg PO Q6H PRN PRN Reason: FEVER Last Admin: 03/02/19 22:01 Dose: 650 mg Amlodipine Besylate (Norvasc -) 5 mg PO DAILY [facility] Last Admin: 03/03/19 10:06 Dose: 5 mg Apixaban (Eliquis -) 5 mg PO BID [facility] Last Admin: 03/03/19 22:36 Dose: 5 mg Aspirin (Ecotrin -) 81 mg PO DAILY [facility] Last Admin: 03/03/19 10:06 Dose: 81 mg Atorvastatin Calcium (Lipitor -) 40 mg PO HS [facility] Last Admin: 03/03/19 22:36 Dose: 40 mg Budesonide/Formoterol Fumarate (Symbicort 160/4.5mcg -) 2 puff IH BID [facility] Last Admin: 03/03/19 22:38 Dose: 2 puff Digoxin (Lanoxin -) 0.125 mg PO DAILY [facility] Last Admin: 03/03/19 10:07 Dose: 0.125 mg Escitalopram Oxalate (Lexapro -) 10 mg PO DAILY [facility] Last Admin: 03/03/19 10:06 Dose: 10 mg Furosemide (Lasix Injection -) 80 mg IVPUSH BID@0600,1400 [facility] Last Admin: 03/04/19 07:18 Dose: 80 mg Insulin Aspart (Novolog Vial Sliding Scale -) 1 vial SQ [facility]; Protocol Last Admin: 03/04/19 07:12 Dose: Not Given Isosorbide Mononitrate (Imdur -) 60 mg PO DAILY [facility] Last Admin: 03/03/19 10:06 Dose: 60 mg Metoprolol Succinate (Toprol Xl -) 75 mg PO DAILY [facility] Last Admin: 03/03/19 10:06 Dose: 75 mg Miscellaneous (Lidoderm Patch Removal) 1 each MC DAILY@2200 [facility] Last Admin: 03/03/19 22:37 Dose: Not Given Sacubitril/Valsartan (Entresto 24 Mg-26 Mg Tablet) 1 tab PO BID [facility] Last Admin: 03/03/19 22:36 Dose: 1 tab Tamsulosin HCl (Flomax -) 0.4 mg PO DAILY@0830 [facility] Last Admin: 03/03/19 10:06 Dose: 0.4 mg - Objective Vital Signs: Vital Signs Temperature 98.8 F 03/04/19 06:25 Pulse Rate 92 H 03/04/19 06:25 Respiratory Rate 20 03/04/19 06:25 Blood Pressure 148/70 03/04/19 06:25 O2 Sat by Pulse Oximetry (%) 98 03/04/19 08:57 Constitutional: Yes: No Distress Cardiovascular: Yes: Regular Rate and Rhythm Respiratory: Yes: Other (decreased breath sounds at bases, no wheezing) Gastrointestinal: Yes: Soft, Abdomen, Obese Edema: Yes Edema: LLE: 1+, RLE: 1+ Neurological: Yes: Alert, Oriented Labs: CBC, BMP 03/03/19 05:30 03/03/19 05:30 INR, PTT INR 1.11 (0.83-1.09) H 02/24/19 06:00 Laboratory Tests 03/03/19 05:30 WBC 8.6 Hgb 8.2 L Plt Count 214 - ....Imaging EKG: Image Reviewed Problem List - Problems (1) Elevated troponin Code(s): R74.8 - ABNORMAL LEVELS OF OTHER SERUM ENZYMES (2) Abdominal bloating Code(s): R14.0 - ABDOMINAL DISTENSION (GASEOUS) (3) Chronic combined systolic and diastolic CHF, NYHA class 4 Code(s): I50.42 - CHRONIC COMBINED SYSTOLIC AND DIASTOLIC HRT FAIL (4) Diabetes Code(s): E11.9 - TYPE 2 DIABETES MELLITUS WITHOUT COMPLICATIONS Qualifiers: Diabetes mellitus type: type 2 Diabetes mellitus complication status: without complication (5) Dyspnea Code(s): R06.00 - DYSPNEA, UNSPECIFIED Qualifiers: Dyspnea type: unspecified Qualified Code(s): R06.00 - Dyspnea, unspecified (6) Morbid obesity Code(s): E66.01 - MORBID (SEVERE) OBESITY DUE TO EXCESS CALORIES (7) PSVT (paroxysmal supraventricular tachycardia) Code(s): I47.1 - SUPRAVENTRICULAR TACHYCARDIA (8) Pulmonary HTN Code(s): I27.2 - OTHER SECONDARY PULMONARY HYPERTENSION * DO NOT USE * (9) Atrial fibrillation Code(s): I48.91 - UNSPECIFIED ATRIAL FIBRILLATION Assessment/Plan IMP: 1. PSVT 2. H/o PAF 3. CAD s/p remote h/o coronary PCI 4. Chronic PHTN 5. Chronic combined diastolic/systolic CHF 6. DM 7. Fall, probably mechanical 8. Elevated TnI REC: 1. Elevated TnI unlikely represents ACS as ECG not ischemic and no chest pain symptoms, normal CK Likely due to chronic combined systolic/diastolic CHF and chronic severe PHTN. 2. Echo - tds with EF 50%, unable to evaluate RV function 3. Continue Eliquis as [id number] score is elevated. 4. Tele discontinued 5. Cr stable. Cont lasix 80 mg IV BID. Daily weights and daily BMP monitor renal fx Will aim to convert to PO Lasix over weekend.
[2019-03-04] MEDS ORDERED: PT OWN MED DRAWER 7, Y5N ONE (10:08)
[2019-03-04] MEDS: TAMSULOSIN HCL 0.4 MG CAP PO SCH (10:14)
[2019-03-04] MEDS: ISOSORBIDE MONONITRATE 30 MG TAB.SR.24H (FP) PO SCH (10:14)
[2019-03-04] MEDS: amLODIPine BESYLATE 5 MG TABLET (FP) PO SCH (10:15)
[2019-03-04] MEDS: ESCITALOPRAM OXALATE 10 MG TABLET (FP) PO SCH (10:15)
[2019-03-04] MEDS: metoPROLOL SUCCINATE 25 MG TAB.SR.24H (FP) PO SCH (10:15)
[2019-03-04] MEDS: DIGOXIN 0.125 MG TABLET (FP) PO SCH (10:16)
[2019-03-04] MEDS: ASPIRIN COATED 81 MG TABLET.EC PO SCH (10:16)
[2019-03-04] MEDS: SACUBITRIL/VALSARTAN 24 MG-26 MG TABLET PO SCH ×2 (10:21→22:12)
[2019-03-04] MEDS: APIXABAN 5 MG TABLET PO SCH ×2 (10:21→21:45)
[2019-03-04] MEDS: BUDESONIDE/FORMETEROL FUMARATE 160/4.5 mcg INHALER IH SCH ×2 (10:21→21:49)
--- NOTE | 2019-03-04 16:13 | PN ---
Progress Note, Physician History of Present Illness: PULMONARY ALERT,SITTING UP IN BED,C/O SOB,INCREASED LOWER EXT EDEMA - Current Medication List Current Medications: Active Medications Acetaminophen (Tylenol -) 650 mg PO Q6H PRN PRN Reason: FEVER Last Admin: 03/02/19 22:01 Dose: 650 mg Amlodipine Besylate (Norvasc -) 5 mg PO DAILY [facility] Last Admin: 03/04/19 10:15 Dose: 5 mg Apixaban (Eliquis -) 5 mg PO BID [facility] Last Admin: 03/04/19 10:21 Dose: 5 mg Aspirin (Ecotrin -) 81 mg PO DAILY [facility] Last Admin: 03/04/19 10:16 Dose: 81 mg Atorvastatin Calcium (Lipitor -) 40 mg PO HS [facility] Last Admin: 03/03/19 22:36 Dose: 40 mg Budesonide/Formoterol Fumarate (Symbicort 160/4.5mcg -) 2 puff IH BID [facility] Last Admin: 03/04/19 10:21 Dose: 2 puff Digoxin (Lanoxin -) 0.125 mg PO DAILY [facility] Last Admin: 03/04/19 10:16 Dose: 0.125 mg Escitalopram Oxalate (Lexapro -) 10 mg PO DAILY [facility] Last Admin: 03/04/19 10:15 Dose: 10 mg Furosemide (Lasix Injection -) 80 mg IVPUSH BID@0600,1400 [facility] Last Admin: 03/04/19 14:02 Dose: 80 mg Insulin Aspart (Novolog Vial Sliding Scale -) 1 vial SQ [facility]; Protocol Last Admin: 03/04/19 12:43 Dose: 4 units Isosorbide Mononitrate (Imdur -) 60 mg PO DAILY [facility] Last Admin: 03/04/19 10:14 Dose: 60 mg Metoprolol Succinate (Toprol Xl -) 75 mg PO DAILY [facility] Last Admin: 03/04/19 10:15 Dose: 75 mg Miscellaneous (Lidoderm Patch Removal) 1 each MC DAILY@2200 [facility] Last Admin: 03/03/19 22:37 Dose: Not Given Sacubitril/Valsartan (Entresto 24 Mg-26 Mg Tablet) 1 tab PO BID [facility] Last Admin: 03/04/19 10:21 Dose: 1 tab Tamsulosin HCl (Flomax -) 0.4 mg PO DAILY@0830 [facility] Last Admin: 03/04/19 10:14 Dose: 0.4 mg - Objective Vital Signs: Vital Signs Temperature 97.5 F L 03/04/19 13:43 Pulse Rate 86 03/04/19 13:43 Respiratory Rate 20 03/04/19 06:25 Blood Pressure 146/72 03/04/19 13:43 O2 Sat by Pulse Oximetry (%) 100 03/04/19 10:00 Constitutional: Yes: Well Nourished, Calm Eyes: Yes: WNL HENT: Yes: WNL Neck: Yes: WNL Cardiovascular: Yes: Pulse Irregular, S1, S2 Respiratory: Yes: Rales, Wheezes (BILATERAL RALES AND SCATTERED WHEEZES) Gastrointestinal: Yes: Normal Bowel Sounds, Soft Extremities: Yes: WNL Edema: Yes Edema: LLE: 3+, RLE: 3+ Labs: CBC, BMP Assessment/Plan Problem List - Problems (1) Fall Code(s): W19.XXXA - UNSPECIFIED FALL, INITIAL ENCOUNTER (2) Acute respiratory failure with hypoxia and hypercapnia Code(s): J96.01 - ACUTE RESPIRATORY FAILURE WITH HYPOXIA; J96.02 - ACUTE RESPIRATORY FAILURE WITH HYPERCAPNIA (3) Elevated troponin Code(s): R74.8 - ABNORMAL LEVELS OF OTHER SERUM ENZYMES (4) Abdominal bloating Code(s): R14.0 - ABDOMINAL DISTENSION (GASEOUS) (5) CHF (congestive heart failure) Code(s): I50.9 - HEART FAILURE, UNSPECIFIED Qualifiers: Heart failure type: systolic Heart failure chronicity: acute on chronic Qualified Code(s): I50.23 - Acute on chronic systolic (congestive) heart failure (6) Chronic hypoxemic respiratory failure Code(s): J96.11 - CHRONIC RESPIRATORY FAILURE WITH HYPOXIA (7) Diabetes Code(s): E11.9 - TYPE 2 DIABETES MELLITUS WITHOUT COMPLICATIONS Qualifiers: Diabetes mellitus type: type 2 Diabetes mellitus complication status: without complication (8) Morbid obesity Code(s): E66.01 - MORBID (SEVERE) OBESITY DUE TO EXCESS CALORIES (9) Pulmonary HTN Code(s): I27.2 - OTHER SECONDARY PULMONARY HYPERTENSION * DO NOT USE * Assessment/Plan S/P FALL CHRONIC HYPERCAPNEIC HYPOXEMIC RESPIRATORY FAILURE ON HOME 02 3-4 L/M LIKELY [facility] PAF PLAN INHALED BRONCHODILATORS O2 SUPPLEMENTATION DIURETICS DAILY WT NIPPV NEEDED AC DR CARPENTER
[2019-03-04] MEDS: LIDOCAINE PATCH REMOVAL MC SCH (21:45)
[2019-03-04] MEDS: ATORVASTATIN CA 40 MG TABLET (FP) PO SCH (21:46)
--- NOTE | 2019-03-04 23:29 | PN ---
Progress Note, Physician - Current Medication List Current Medications: Active Medications Acetaminophen (Tylenol -) 650 mg PO Q6H PRN PRN Reason: FEVER Last Admin: 03/02/19 22:01 Dose: 650 mg Amlodipine Besylate (Norvasc -) 5 mg PO DAILY [facility] Last Admin: 03/04/19 10:15 Dose: 5 mg Apixaban (Eliquis -) 5 mg PO BID [facility] Last Admin: 03/04/19 21:45 Dose: 5 mg Aspirin (Ecotrin -) 81 mg PO DAILY [facility] Last Admin: 03/04/19 10:16 Dose: 81 mg Atorvastatin Calcium (Lipitor -) 40 mg PO HS [facility] Last Admin: 03/04/19 21:46 Dose: 40 mg Budesonide/Formoterol Fumarate (Symbicort 160/4.5mcg -) 2 puff IH BID [facility] Last Admin: 03/04/19 21:49 Dose: 2 puff Digoxin (Lanoxin -) 0.125 mg PO DAILY [facility] Last Admin: 03/04/19 10:16 Dose: 0.125 mg Escitalopram Oxalate (Lexapro -) 10 mg PO DAILY [facility] Last Admin: 03/04/19 10:15 Dose: 10 mg Furosemide (Lasix Injection -) 80 mg IVPUSH BID@0600,1400 [facility] Last Admin: 03/04/19 14:02 Dose: 80 mg Insulin Aspart (Novolog Vial Sliding Scale -) [address] [facility]; Protocol Last Admin: 03/04/19 21:46 Dose: 6 units Isosorbide Mononitrate (Imdur -) 60 mg PO DAILY [facility] Last Admin: 03/04/19 10:14 Dose: 60 mg Metoprolol Succinate (Toprol Xl -) 75 mg PO DAILY [facility] Last Admin: 03/04/19 10:15 Dose: 75 mg Miscellaneous (Lidoderm Patch Removal) 1 each MC DAILY@2200 [facility] Last Admin: 03/04/19 21:45 Dose: Not Given Sacubitril/Valsartan (Entresto 24 Mg-26 Mg Tablet) 1 tab PO BID [facility] Last Admin: 03/04/19 22:12 Dose: 1 tab Tamsulosin HCl (Flomax -) 0.4 mg PO DAILY@0830 [facility] Last Admin: 03/04/19 10:14 Dose: 0.4 mg - Objective Vital Signs: Vital Signs Temperature 98.3 F 03/04/19 18:00 Pulse Rate 62 03/04/19 18:00 Respiratory Rate 20 03/04/19 18:00 Blood Pressure 128/72 03/04/19 18:00 O2 Sat by Pulse Oximetry (%) 100 03/04/19 10:00 Labs: CBC, BMP 03/03/19 05:30 03/03/19 05:30 INR, PTT INR 1.11 (0.83-1.09) H 02/24/19 06:00 Problem List - Problems (1) Chronic combined systolic and diastolic CHF, NYHA class 4 Code(s): I50.42 - CHRONIC COMBINED SYSTOLIC AND DIASTOLIC HRT FAIL (2) Extremity pain Code(s): M79.609 - PAIN IN UNSPECIFIED LIMB (3) Paroxysmal A-fib Code(s): I48.0 - PAROXYSMAL ATRIAL FIBRILLATION (4) Acute respiratory failure with hypoxia and hypercapnia Code(s): J96.01 - ACUTE RESPIRATORY FAILURE WITH HYPOXIA; J96.02 - ACUTE RESPIRATORY FAILURE WITH HYPERCAPNIA (5) Diabetes Code(s): E11.9 - TYPE 2 DIABETES MELLITUS WITHOUT COMPLICATIONS Qualifiers: Diabetes mellitus type: type 2 Diabetes mellitus complication status: without complication (6) Hypertension Code(s): I10 - ESSENTIAL (PRIMARY) HYPERTENSION (7) HLD (hyperlipidemia) Code(s): E78.5 - HYPERLIPIDEMIA, UNSPECIFIED (8) Pulmonary HTN Code(s): I27.2 - OTHER SECONDARY PULMONARY HYPERTENSION * DO NOT USE * (9) BPH (benign prostatic hyperplasia) Code(s): N40.0 - BENIGN PROSTATIC HYPERPLASIA WITHOUT LOWER URINRY TRACT SYMP (10) Morbid obesity Code(s): E66.01 - MORBID (SEVERE) OBESITY DUE TO EXCESS CALORIES
[2019-03-05] MEDS: INSULIN SLIDING SCALE (NOVOLOG) 1 VIAL SQ SCH ×4 (06:49→22:01)
[2019-03-05] MEDS: FUROSEMIDE 40 MG/4 ML INJECTABLE VIAL IVPUSH SCH (06:49)
[2019-03-05] MEDS ORDERED: PT OWN MED DRAWER 7, Y5N ONE (09:14)
[2019-03-05] MEDS: amLODIPine BESYLATE 5 MG TABLET (FP) PO SCH (09:52)
[2019-03-05] MEDS: ASPIRIN COATED 81 MG TABLET.EC PO SCH (09:53)
[2019-03-05] MEDS: ISOSORBIDE MONONITRATE 30 MG TAB.SR.24H (FP) PO SCH (09:53)
[2019-03-05] MEDS: APIXABAN 5 MG TABLET PO SCH ×2 (09:53→22:01)
[2019-03-05] MEDS: metoPROLOL SUCCINATE 25 MG TAB.SR.24H (FP) PO SCH (09:54)
[2019-03-05] MEDS: TAMSULOSIN HCL 0.4 MG CAP PO SCH (09:54)
[2019-03-05] MEDS: ESCITALOPRAM OXALATE 10 MG TABLET (FP) PO SCH (09:54)
[2019-03-05] MEDS: DIGOXIN 0.125 MG TABLET (FP) PO SCH (09:55)
[2019-03-05] MEDS: SACUBITRIL/VALSARTAN 24 MG-26 MG TABLET PO SCH ×2 (09:55→22:00)
--- NOTE | 2019-03-05 10:05 | PN ---
Progress Note, Physician Chief Complaint: seen and examined No distress - Current Medication List Current Medications: Active Medications Acetaminophen (Tylenol -) 650 mg PO Q6H PRN PRN Reason: FEVER Last Admin: 03/02/19 22:01 Dose: 650 mg Amlodipine Besylate (Norvasc -) 5 mg PO DAILY [facility] Last Admin: 03/05/19 09:52 Dose: 5 mg Apixaban (Eliquis -) 5 mg PO BID [facility] Last Admin: 03/05/19 09:53 Dose: 5 mg Aspirin (Ecotrin -) 81 mg PO DAILY [facility] Last Admin: 03/05/19 09:53 Dose: 81 mg Atorvastatin Calcium (Lipitor -) 40 mg PO HS [facility] Last Admin: 03/04/19 21:46 Dose: 40 mg Budesonide/Formoterol Fumarate (Symbicort 160/4.5mcg -) 2 puff IH BID [facility] Last Admin: 03/04/19 21:49 Dose: 2 puff Digoxin (Lanoxin -) 0.125 mg PO DAILY [facility] Last Admin: 03/05/19 09:55 Dose: 0.125 mg Escitalopram Oxalate (Lexapro -) 10 mg PO DAILY [facility] Last Admin: 03/05/19 09:54 Dose: 10 mg Furosemide (Lasix Injection -) 80 mg IVPUSH BID@0600,1400 [facility] Last Admin: 03/05/19 06:49 Dose: 80 mg Insulin Aspart (Novolog Vial Sliding Scale -) 1 vial SQ [facility]; Protocol Last Admin: 03/05/19 06:49 Dose: 4 units Isosorbide Mononitrate (Imdur -) 60 mg PO DAILY [facility] Last Admin: 03/05/19 09:53 Dose: 60 mg Metoprolol Succinate (Toprol Xl -) 75 mg PO DAILY [facility] Last Admin: 03/05/19 09:54 Dose: 75 mg Miscellaneous (Lidoderm Patch Removal) 1 each MC DAILY@2200 [facility] Last Admin: 03/04/19 21:45 Dose: Not Given Sacubitril/Valsartan (Entresto 24 Mg-26 Mg Tablet) 1 tab PO BID [facility] Last Admin: 03/05/19 09:55 Dose: 1 tab Tamsulosin HCl (Flomax -) 0.4 mg PO DAILY@0830 [facility] Last Admin: 03/05/19 09:54 Dose: 0.4 mg - Objective Vital Signs: Vital Signs Temperature 98.9 F 03/05/19 06:00 Pulse Rate 97 H 03/05/19 09:55 Respiratory Rate 18 03/05/19 06:00 Blood Pressure 145/72 03/05/19 06:00 O2 Sat by Pulse Oximetry (%) 90 L 03/04/19 21:00 Constitutional: Yes: No Distress Cardiovascular: Yes: Regular Rate and Rhythm Respiratory: Yes: CTA Bilaterally Gastrointestinal: Yes: Soft, Abdomen, Obese Edema: Yes Edema: LLE: 1+, RLE: 1+ Neurological: Yes: Alert, Oriented Labs: CBC, BMP 03/03/19 05:30 03/03/19 05:30 INR, PTT INR 1.11 (0.83-1.09) H 02/24/19 06:00 Problem List - Problems (1) Elevated troponin Code(s): R74.8 - ABNORMAL LEVELS OF OTHER SERUM ENZYMES (2) Abdominal bloating Code(s): R14.0 - ABDOMINAL DISTENSION (GASEOUS) (3) Chronic combined systolic and diastolic CHF, NYHA class 4 Code(s): I50.42 - CHRONIC COMBINED SYSTOLIC AND DIASTOLIC HRT FAIL (4) Diabetes Code(s): E11.9 - TYPE 2 DIABETES MELLITUS WITHOUT COMPLICATIONS Qualifiers: Diabetes mellitus type: type 2 Diabetes mellitus complication status: without complication (5) Dyspnea Code(s): R06.00 - DYSPNEA, UNSPECIFIED Qualifiers: Dyspnea type: unspecified Qualified Code(s): R06.00 - Dyspnea, unspecified (6) Morbid obesity Code(s): E66.01 - MORBID (SEVERE) OBESITY DUE TO EXCESS CALORIES (7) PSVT (paroxysmal supraventricular tachycardia) Code(s): I47.1 - SUPRAVENTRICULAR TACHYCARDIA (8) Pulmonary HTN Code(s): I27.2 - OTHER SECONDARY PULMONARY HYPERTENSION * DO NOT USE * (9) Atrial fibrillation Code(s): I48.91 - UNSPECIFIED ATRIAL FIBRILLATION Assessment/Plan IMP: 1. PSVT 2. H/o PAF 3. CAD s/p remote h/o coronary PCI 4. Chronic PHTN 5. Chronic combined diastolic/systolic CHF 6. DM 7. Fall, probably mechanical 8. Elevated TnI REC: 1. Elevated TnI unlikely represents ACS as ECG not ischemic and no chest pain symptoms, normal CK Likely due to chronic combined systolic/diastolic CHF and chronic severe PHTN. 2. Echo - tds with EF 50%, unable to evaluate RV function 3. Continue Eliquis as [id number] score is elevated. 4. Tele discontinued 5. Cr stable. Switch to PO Lasix; check BMP
[2019-03-05] MEDS: BUDESONIDE/FORMETEROL FUMARATE 160/4.5 mcg INHALER IH SCH ×2 (10:07→23:13)
--- NOTE | 2019-03-05 14:34 | PN ---
Progress Note (short form) - Note Progress Note: No acute events overnight. Less SOB. (+) LE edema Intake & Output 03/02/19 03/03/19 03/04/19 03/05/19 23:59 23:59 23:59 23:59 Intake Total 1010 280 260 Output Total 950 300 325 Balance -950 710 280 -65 Weight 278 lb 12.8 oz 273 lb 272 lb 6.4 oz 272 lb 3.2 oz Last Vital Signs Temp Pulse Resp BP Pulse Ox 98.8 F 86 18 120/55 L 95 03/05/19 10:00 03/05/19 10:00 03/05/19 10:00 03/05/19 10:00 03/05/19 10:00 Active Medications Acetaminophen (Tylenol -) 650 mg PO Q6H PRN PRN Reason: FEVER Last Admin: 03/02/19 22:01 Dose: 650 mg Amlodipine Besylate (Norvasc -) 5 mg PO DAILY [facility] Last Admin: 03/05/19 09:52 Dose: 5 mg Apixaban (Eliquis -) 5 mg PO BID [facility] Last Admin: 03/05/19 09:53 Dose: 5 mg Aspirin (Ecotrin -) 81 mg PO DAILY [facility] Last Admin: 03/05/19 09:53 Dose: 81 mg Atorvastatin Calcium (Lipitor -) 40 mg PO HS [facility] Last Admin: 03/04/19 21:46 Dose: 40 mg Budesonide/Formoterol Fumarate (Symbicort 160/4.5mcg -) 2 puff IH BID [facility] Last Admin: 03/05/19 10:07 Dose: 2 puff Digoxin (Lanoxin -) 0.125 mg PO DAILY [facility] Last Admin: 03/05/19 09:55 Dose: 0.125 mg Escitalopram Oxalate (Lexapro -) 10 mg PO DAILY [facility] Last Admin: 03/05/19 09:54 Dose: 10 mg Furosemide (Lasix -) 80 mg PO DAILY [facility] Insulin Aspart (Novolog Vial Sliding Scale -) 1 vial SQ ACHS [facility]; Protocol Last Admin: 03/05/19 11:24 Dose: 2 units Isosorbide Mononitrate (Imdur -) 60 mg PO DAILY [facility] Last Admin: 03/05/19 09:53 Dose: 60 mg Metoprolol Succinate (Toprol Xl -) 75 mg PO DAILY [facility] Last Admin: 03/05/19 09:54 Dose: 75 mg Sacubitril/Valsartan (Entresto 24 Mg-26 Mg Tablet) 1 tab PO BID [facility] Last Admin: 03/05/19 09:55 Dose: 1 tab Tamsulosin HCl (Flomax -) 0.4 mg PO DAILY@0830 [facility] Last Admin: 03/05/19 09:54 Dose: 0.4 mg Constitutional: Yes: NAD Eyes: Yes: WNL HENT: Yes: WNL Neck: Yes: WNL Cardiovascular: Yes: Pulse Irregular, S1, S2 Respiratory: Yes: Bilateral Rales & Wheezes Gastrointestinal: Yes: Normal Bowel Sounds, Soft Extremities: Yes: WNL Edema: Yes Edema: LLE: 3+, RLE: 3+ Labs: Laboratory Results - last 24 hr 03/04/19 03/04/19 03/05/19 16:59 21:44 06:14 POC Glucometer 204 252 214 03/05/19 11:23 POC Glucometer 198 Assessment/Plan Problem List - Problems (1) Fall Code(s): W19.XXXA - UNSPECIFIED FALL, INITIAL ENCOUNTER (2) Acute respiratory failure with hypoxia and hypercapnia Code(s): J96.01 - ACUTE RESPIRATORY FAILURE WITH HYPOXIA; J96.02 - ACUTE RESPIRATORY FAILURE WITH HYPERCAPNIA (3) Elevated troponin Code(s): R74.8 - ABNORMAL LEVELS OF OTHER SERUM ENZYMES (4) Abdominal bloating Code(s): R14.0 - ABDOMINAL DISTENSION (GASEOUS) (5) CHF (congestive heart failure) Code(s): I50.9 - HEART FAILURE, UNSPECIFIED Qualifiers: Heart failure type: systolic Heart failure chronicity: acute on chronic Qualified Code(s): I50.23 - Acute on chronic systolic (congestive) heart failure (6) Chronic hypoxemic respiratory failure Code(s): J96.11 - CHRONIC RESPIRATORY FAILURE WITH HYPOXIA (7) Diabetes Code(s): E11.9 - TYPE 2 DIABETES MELLITUS WITHOUT COMPLICATIONS Qualifiers: Diabetes mellitus type: type 2 Diabetes mellitus complication status: without complication (8) Morbid obesity Code(s): E66.01 - MORBID (SEVERE) OBESITY DUE TO EXCESS CALORIES (9) Pulmonary HTN Code(s): I27.2 - OTHER SECONDARY PULMONARY HYPERTENSION * DO NOT USE * Assessment/Plan S/P FALL CHRONIC HYPERCAPNEIC HYPOXEMIC RESPIRATORY FAILURE ON HOME 3-4 L/M LIKELY OSAS/[facility] PAF ENTRESTO INHALED BRONCHODILATORS PRN O2 SUPPLEMENTATION LASIX DAILY WT AC WITH TOMÁS GORDILLO
[2019-03-05] MEDS ORDERED: INSULIN (NOVOLOG) ASPART 100 UNITS/ML 10ML VIAL ONE (17:15)
[2019-03-05] MEDS: ACETAMINOPHEN 325 MG TABLET (FP) PO PRN (17:20)
[2019-03-05] MEDS: ATORVASTATIN CA 40 MG TABLET (FP) PO SCH (22:01)
--- NOTE | 2019-03-05 22:11 | PN ---
Progress Note, Physician - Current Medication List Current Medications: Active Medications Acetaminophen (Tylenol -) 650 mg PO Q6H PRN PRN Reason: FEVER Last Admin: 03/05/19 17:20 Dose: 650 mg Amlodipine Besylate (Norvasc -) 5 mg PO DAILY [facility] Last Admin: 03/05/19 09:52 Dose: 5 mg Apixaban (Eliquis -) 5 mg PO BID [facility] Last Admin: 03/05/19 22:01 Dose: 5 mg Aspirin (Ecotrin -) 81 mg PO DAILY [facility] Last Admin: 03/05/19 09:53 Dose: 81 mg Atorvastatin Calcium (Lipitor -) 40 mg PO HS [facility] Last Admin: 03/05/19 22:01 Dose: 40 mg Budesonide/Formoterol Fumarate (Symbicort 160/4.5mcg -) 2 puff IH BID [facility] Last Admin: 03/05/19 10:07 Dose: 2 puff Digoxin (Lanoxin -) 0.125 mg PO DAILY [facility] Last Admin: 03/05/19 09:55 Dose: 0.125 mg Escitalopram Oxalate (Lexapro -) 10 mg PO DAILY [facility] Last Admin: 03/05/19 09:54 Dose: 10 mg Furosemide (Lasix -) 80 mg PO DAILY [facility] Insulin Aspart (Novolog Vial Sliding Scale -) 1 vial SQ ACHS [facility]; Protocol Last Admin: 03/05/19 22:01 Dose: 6 units Isosorbide Mononitrate (Imdur -) 60 mg PO DAILY [facility] Last Admin: 03/05/19 09:53 Dose: 60 mg Metoprolol Succinate (Toprol Xl -) 75 mg PO DAILY [facility] Last Admin: 03/05/19 09:54 Dose: 75 mg Sacubitril/Valsartan (Entresto 24 Mg-26 Mg Tablet) 1 tab PO BID [facility] Last Admin: 03/05/19 22:00 Dose: 1 tab Tamsulosin HCl (Flomax -) 0.4 mg PO DAILY@0830 [facility] Last Admin: 03/05/19 09:54 Dose: 0.4 mg - Objective Vital Signs: Vital Signs Temperature 98.4 F 03/05/19 17:50 Pulse Rate 96 H 03/05/19 17:50 Respiratory Rate 18 03/05/19 17:50 Blood Pressure 108/77 03/05/19 17:50 O2 Sat by Pulse Oximetry (%) 95 03/05/19 12:19 Labs: CBC, BMP 03/03/19 05:30 03/03/19 05:30 INR, PTT INR 1.11 (0.83-1.09) H 02/24/19 06:00 Problem List - Problems (1) Chronic combined systolic and diastolic CHF, NYHA class 4 Code(s): I50.42 - CHRONIC COMBINED SYSTOLIC AND DIASTOLIC HRT FAIL (2) Extremity pain Code(s): M79.609 - PAIN IN UNSPECIFIED LIMB (3) Paroxysmal A-fib Code(s): I48.0 - PAROXYSMAL ATRIAL FIBRILLATION (4) Acute respiratory failure with hypoxia and hypercapnia Code(s): J96.01 - ACUTE RESPIRATORY FAILURE WITH HYPOXIA; J96.02 - ACUTE RESPIRATORY FAILURE WITH HYPERCAPNIA (5) Diabetes Code(s): E11.9 - TYPE 2 DIABETES MELLITUS WITHOUT COMPLICATIONS Qualifiers: Diabetes mellitus type: type 2 Diabetes mellitus complication status: without complication (6) Hypertension Code(s): I10 - ESSENTIAL (PRIMARY) HYPERTENSION (7) HLD (hyperlipidemia) Code(s): E78.5 - HYPERLIPIDEMIA, UNSPECIFIED (8) Pulmonary HTN Code(s): I27.2 - OTHER SECONDARY PULMONARY HYPERTENSION * DO NOT USE * (9) BPH (benign prostatic hyperplasia) Code(s): N40.0 - BENIGN PROSTATIC HYPERPLASIA WITHOUT LOWER URINRY TRACT SYMP (10) Morbid obesity Code(s): E66.01 - MORBID (SEVERE) OBESITY DUE TO EXCESS CALORIES
[2019-03-06] MEDS: ACETAMINOPHEN 325 MG TABLET (FP) PO PRN ×2 (02:34→10:13)
[2019-03-06] MEDS: INSULIN SLIDING SCALE (NOVOLOG) 1 VIAL SQ SCH ×4 (06:23→22:07)
[2019-03-06 09:09] LABS: ANION GAP 7 MMOL/L (8-16); BLOOD UREA NITROGEN 28 mg/dL (7-18); CALCIUM 9.5 mg/dL (8.5-10.1); CHLORIDE 95 mmol/L (98-107); CO2 37 mmol/L (21-32); CREATININE 1.1 mg/dL (0.55-1.3); GLUCOSE,RANDOM 197 mg/dL (74-106); POTASSIUM 3.3 mmol/L (3.5-5.1); SODIUM 139 mmol/L (136-145)
[2019-03-06] MEDS ORDERED: PT OWN MED DRAWER 7, Y5N ONE (10:10)
[2019-03-06] MEDS: metoPROLOL SUCCINATE 25 MG TAB.SR.24H (FP) PO SCH (10:11)
[2019-03-06] MEDS: ASPIRIN COATED 81 MG TABLET.EC PO SCH (10:12)
[2019-03-06] MEDS: amLODIPine BESYLATE 5 MG TABLET (FP) PO SCH (10:12)
[2019-03-06] MEDS: APIXABAN 5 MG TABLET PO SCH ×2 (10:12→22:07)
[2019-03-06] MEDS: ESCITALOPRAM OXALATE 10 MG TABLET (FP) PO SCH (10:12)
[2019-03-06] MEDS: DIGOXIN 0.125 MG TABLET (FP) PO SCH (10:12)
[2019-03-06] MEDS: TAMSULOSIN HCL 0.4 MG CAP PO SCH (10:12)
[2019-03-06] MEDS: ISOSORBIDE MONONITRATE 30 MG TAB.SR.24H (FP) PO SCH (10:13)
[2019-03-06] MEDS: SACUBITRIL/VALSARTAN 24 MG-26 MG TABLET PO SCH ×2 (10:13→22:07)
[2019-03-06] MEDS: FUROSEMIDE 40 MG TABLET (FP) PO SCH (10:15)
[2019-03-06] MEDS: BUDESONIDE/FORMETEROL FUMARATE 160/4.5 mcg INHALER IH SCH ×2 (10:16→22:04)
[2019-03-06] MEDS ORDERED: INSULIN (NOVOLOG) ASPART 100 UNITS/ML 10ML VIAL ONE ×2 (12:14→17:02)
[2019-03-06] MEDS: POTASSIUM CHLORIDE TABS 20 MEQ TABLET.ER (FP) PO SCH (12:46)
--- NOTE | 2019-03-06 12:56 | PN ---
Progress Note (short form) - Note Progress Note: No acute events overnight. Less SOB. Intake & Output 03/03/19 03/04/19 03/05/19 03/06/19 23:59 23:59 23:59 23:59 Intake Total 1010 280 260 120 Output Total 300 325 Balance 710 280 -65 120 Weight 273 lb 272 lb 6.4 oz 272 lb 3.2 oz Last Vital Signs Temp Pulse Resp BP Pulse Ox 98.2 F 91 H 20 138/62 100 03/06/19 10:10 03/06/19 10:12 03/06/19 10:10 03/06/19 10:10 03/05/19 22:00 Active Medications Acetaminophen (Tylenol -) 650 mg PO Q6H PRN PRN Reason: FEVER Last Admin: 03/06/19 10:13 Dose: 650 mg Amlodipine Besylate (Norvasc -) 5 mg PO DAILY [facility] Last Admin: 03/06/19 10:12 Dose: 5 mg Apixaban (Eliquis -) 5 mg PO BID [facility] Last Admin: 03/06/19 10:12 Dose: 5 mg Aspirin (Ecotrin -) 81 mg PO DAILY [facility] Last Admin: 03/06/19 10:12 Dose: 81 mg Atorvastatin Calcium (Lipitor -) 40 mg PO HS [facility] Last Admin: 03/05/19 22:01 Dose: 40 mg Budesonide/Formoterol Fumarate (Symbicort 160/4.5mcg -) 2 puff IH BID [facility] Last Admin: 03/06/19 10:16 Dose: 2 puff Digoxin (Lanoxin -) 0.125 mg PO DAILY [facility] Last Admin: 03/06/19 10:12 Dose: 0.125 mg Escitalopram Oxalate (Lexapro -) 10 mg PO DAILY [facility] Last Admin: 03/06/19 10:12 Dose: 10 mg Furosemide (Lasix -) 80 mg PO DAILY [facility] Last Admin: 03/06/19 10:15 Dose: 80 mg Insulin Aspart (Novolog Vial Sliding Scale -) 1 vial SQ ACHS [facility]; Protocol Last Admin: 03/06/19 12:18 Dose: 4 units Isosorbide Mononitrate (Imdur -) 60 mg PO DAILY [facility] Last Admin: 03/06/19 10:13 Dose: 60 mg Metoprolol Succinate (Toprol Xl -) 75 mg PO DAILY [facility] Last Admin: 03/06/19 10:11 Dose: 75 mg Potassium Chloride (K-Dur -) 40 meq PO DAILY [facility] Last Admin: 03/06/19 12:46 Dose: 40 meq Sacubitril/Valsartan (Entresto 24 Mg-26 Mg Tablet) 1 tab PO BID [facility] Last Admin: 03/06/19 10:13 Dose: 1 tab Tamsulosin HCl (Flomax -) 0.4 mg PO DAILY@0830 [facility] Last Admin: 03/06/19 10:12 Dose: 0.4 mg Constitutional: Yes: NAD Eyes: Yes: WNL HENT: Yes: WNL Neck: Yes: WNL Cardiovascular: Yes: Pulse Irregular, S1, S2 Respiratory: Yes: Bilateral Rales & Wheezes Gastrointestinal: Yes: Normal Bowel Sounds, Soft Extremities: Yes: WNL Edema: Yes Edema: LLE: 3+, RLE: 3+ Labs: Laboratory Results - last 24 hr 03/05/19 03/05/19 03/06/19 17:00 21:18 06:19 Sodium Potassium Chloride Carbon Dioxide Anion Gap BUN Creatinine Creat Clearance w eGFR POC Glucometer 205 262 187 Random Glucose Calcium 03/06/19 03/06/19 07:00 12:07 Sodium 139 Potassium 3.3 L Chloride 95 L Carbon Dioxide 37 H Anion Gap 7 L BUN 28 H Creatinine 1.1 Creat Clearance w eGFR 64.91 POC Glucometer 218 Random Glucose 197 H Calcium 9.5 Assessment/Plan Problem List - Problems (1) Fall Code(s): W19.XXXA - UNSPECIFIED FALL, INITIAL ENCOUNTER (2) Acute respiratory failure with hypoxia and hypercapnia Code(s): J96.01 - ACUTE RESPIRATORY FAILURE WITH HYPOXIA; J96.02 - ACUTE RESPIRATORY FAILURE WITH HYPERCAPNIA (3) Elevated troponin Code(s): R74.8 - ABNORMAL LEVELS OF OTHER SERUM ENZYMES (4) Abdominal bloating Code(s): R14.0 - ABDOMINAL DISTENSION (GASEOUS) (5) CHF (congestive heart failure) Code(s): I50.9 - HEART FAILURE, UNSPECIFIED Qualifiers: Heart failure type: systolic Heart failure chronicity: acute on chronic Qualified Code(s): I50.23 - Acute on chronic systolic (congestive) heart failure (6) Chronic hypoxemic respiratory failure Code(s): J96.11 - CHRONIC RESPIRATORY FAILURE WITH HYPOXIA (7) Diabetes Code(s): E11.9 - TYPE 2 DIABETES MELLITUS WITHOUT COMPLICATIONS Qualifiers: Diabetes mellitus type: type 2 Diabetes mellitus complication status: without complication (8) Morbid obesity Code(s): E66.01 - MORBID (SEVERE) OBESITY DUE TO EXCESS CALORIES (9) Pulmonary HTN Code(s): I27.2 - OTHER SECONDARY PULMONARY HYPERTENSION * DO NOT USE * Assessment/Plan S/P FALL CHRONIC HYPERCAPNEIC HYPOXEMIC RESPIRATORY FAILURE ON HOME 02 3-4 L/M LIKELY OSAS/[facility] PAF ENTRESTO INHALED BRONCHODILATORS PRN O2 SUPPLEMENTATION LASIX DAILY WT AC WITH TOMÁS GORDILLO
--- NOTE | 2019-03-06 21:41 | PN.GI ---
GI Progress Note - Objective Vital Signs: Vital Signs Temperature 98.2 F 03/06/19 18:45 Pulse Rate 91 H 03/06/19 18:45 Respiratory Rate 20 03/06/19 18:45 Blood Pressure 148/69 03/06/19 18:45 O2 Sat by Pulse Oximetry (%) 100 03/06/19 10:10 Labs: CBC, BMP 03/03/19 05:30 03/06/19 07:00 INR, PTT INR 1.11 (0.83-1.09) H 02/24/19 06:00 Problem List - Problems (1) Chronic combined systolic and diastolic CHF, NYHA class 4 Code(s): I50.42 - CHRONIC COMBINED SYSTOLIC AND DIASTOLIC HRT FAIL (2) Extremity pain Code(s): M79.609 - PAIN IN UNSPECIFIED LIMB (3) Paroxysmal A-fib Code(s): I48.0 - PAROXYSMAL ATRIAL FIBRILLATION (4) Acute respiratory failure with hypoxia and hypercapnia Code(s): J96.01 - ACUTE RESPIRATORY FAILURE WITH HYPOXIA; J96.02 - ACUTE RESPIRATORY FAILURE WITH HYPERCAPNIA (5) Diabetes Code(s): E11.9 - TYPE 2 DIABETES MELLITUS WITHOUT COMPLICATIONS Qualifiers: Diabetes mellitus type: type 2 Diabetes mellitus complication status: without complication (6) Hypertension Code(s): I10 - ESSENTIAL (PRIMARY) HYPERTENSION (7) HLD (hyperlipidemia) Code(s): E78.5 - HYPERLIPIDEMIA, UNSPECIFIED (8) Pulmonary HTN Code(s): I27.2 - OTHER SECONDARY PULMONARY HYPERTENSION * DO NOT USE * (9) BPH (benign prostatic hyperplasia) Code(s): N40.0 - BENIGN PROSTATIC HYPERPLASIA WITHOUT LOWER URINRY TRACT SYMP (10) Morbid obesity Code(s): E66.01 - MORBID (SEVERE) OBESITY DUE TO EXCESS CALORIES
[2019-03-06] MEDS: ATORVASTATIN CA 40 MG TABLET (FP) PO SCH (22:07)
--- NOTE | 2019-03-06 22:48 | PN ---
Progress Note, Physician History of Present Illness: No new complaints Pt having difficulty ambulating bc of feeling weak and edema of extremities - Current Medication List Current Medications: Active Medications Acetaminophen (Tylenol -) 650 mg PO Q6H PRN PRN Reason: FEVER Last Admin: 03/06/19 10:13 Dose: 650 mg Amlodipine Besylate (Norvasc -) 5 mg PO DAILY [facility] Last Admin: 03/06/19 10:12 Dose: 5 mg Apixaban (Eliquis -) 5 mg PO BID [facility] Last Admin: 03/06/19 22:07 Dose: 5 mg Aspirin (Ecotrin -) 81 mg PO DAILY [facility] Last Admin: 03/06/19 10:12 Dose: 81 mg Atorvastatin Calcium (Lipitor -) 40 mg PO HS [facility] Last Admin: 03/06/19 22:07 Dose: 40 mg Budesonide/Formoterol Fumarate (Symbicort 160/4.5mcg -) 2 puff IH BID [facility] Last Admin: 03/06/19 22:04 Dose: 2 puff Digoxin (Lanoxin -) 0.125 mg PO DAILY [facility] Last Admin: 03/06/19 10:12 Dose: 0.125 mg Escitalopram Oxalate (Lexapro -) 10 mg PO DAILY [facility] Last Admin: 03/06/19 10:12 Dose: 10 mg Furosemide (Lasix -) 80 mg PO DAILY [facility] Last Admin: 03/06/19 10:15 Dose: 80 mg Insulin Aspart (Novolog Vial Sliding Scale -) [address] [facility]; Protocol Last Admin: 03/06/19 22:07 Dose: 4 units Isosorbide Mononitrate (Imdur -) 60 mg PO DAILY [facility] Last Admin: 03/06/19 10:13 Dose: 60 mg Metoprolol Succinate (Toprol Xl -) 75 mg PO DAILY [facility] Last Admin: 03/06/19 10:11 Dose: 75 mg Potassium Chloride (K-Dur -) 40 meq PO DAILY [facility] Last Admin: 03/06/19 12:46 Dose: 40 meq Sacubitril/Valsartan (Entresto 24 Mg-26 Mg Tablet) 1 tab PO BID [facility] Last Admin: 03/06/19 22:07 Dose: 1 tab Tamsulosin HCl (Flomax -) 0.4 mg PO DAILY@0830 [facility] Last Admin: 03/06/19 10:12 Dose: 0.4 mg - Objective Vital Signs: Vital Signs Temperature 98.2 F 03/06/19 18:45 Pulse Rate 91 H 03/06/19 18:45 Respiratory Rate 20 03/06/19 18:45 Blood Pressure 148/69 03/06/19 18:45 O2 Sat by Pulse Oximetry (%) 100 03/06/19 10:10 Neck: Yes: WNL, Supple Cardiovascular: Yes: WNL, Regular Rate and Rhythm Respiratory: Yes: Diminished Gastrointestinal: Yes: WNL, Normal Bowel Sounds, Soft, Abdomen, Obese Edema: LLE: 2+, RLE: 2+ Labs: CBC, BMP 03/03/19 05:30 03/06/19 07:00 INR, PTT INR 1.11 (0.83-1.09) H 02/24/19 06:00 Problem List - Problems (1) Chronic combined systolic and diastolic CHF, NYHA class 4 Assessment/Plan: Cont po lasix Cont entresto Monitor electrolytes DC planning to STR in am Code(s): I50.42 - CHRONIC COMBINED SYSTOLIC AND DIASTOLIC HRT FAIL (2) Extremity pain Assessment/Plan: Splint as per ortho Ortho consult noted Cont PT Code(s): M79.609 - PAIN IN UNSPECIFIED LIMB (3) Paroxysmal A-fib Assessment/Plan: Heart rate controlled Cont dig/BB/eliquis Code(s): I48.0 - PAROXYSMAL ATRIAL FIBRILLATION (4) Acute respiratory failure with hypoxia and hypercapnia Assessment/Plan: Cont inhalers nebulizer/symbicort Cont BIPAP as needed wc pt is using at night Code(s): J96.01 - ACUTE RESPIRATORY FAILURE WITH HYPOXIA; J96.02 - ACUTE RESPIRATORY FAILURE WITH HYPERCAPNIA (5) Diabetes Assessment/Plan: Cont sliding scale w/ coverage Code(s): E11.9 - TYPE 2 DIABETES MELLITUS WITHOUT COMPLICATIONS Qualifiers: Diabetes mellitus type: type 2 Diabetes mellitus complication status: without complication (6) Hypertension Assessment/Plan: BP stable Cont asa/norvasc/imdur/toprol Code(s): I10 - ESSENTIAL (PRIMARY) HYPERTENSION (7) HLD (hyperlipidemia) Assessment/Plan: Cont lipitor Code(s): E78.5 - HYPERLIPIDEMIA, UNSPECIFIED (8) Pulmonary HTN Code(s): I27.2 - OTHER SECONDARY PULMONARY HYPERTENSION * DO NOT USE * (9) BPH (benign prostatic hyperplasia) Assessment/Plan: Cont flomax Code(s): N40.0 - BENIGN PROSTATIC HYPERPLASIA WITHOUT LOWER URINRY TRACT SYMP (10) Morbid obesity Code(s): E66.01 - MORBID (SEVERE) OBESITY DUE TO EXCESS CALORIES
[2019-03-06] MEDS: KCL 10 MEQ IVPB 10 MEQ/100 ML INFUS.BAG IVPB SCH (23:22)
[2019-03-07] MEDS: KCL 10 MEQ IVPB 10 MEQ/100 ML INFUS.BAG IVPB SCH (00:28)
[2019-03-07] MEDS: ACETAMINOPHEN 325 MG TABLET (FP) PO PRN ×2 (04:17→13:55)
[2019-03-07] MEDS: INSULIN SLIDING SCALE (NOVOLOG) 1 VIAL SQ SCH ×4 (06:49→22:01)
[2019-03-07 07:24] LABS: BASO % 0.3 % (0-2.0); EOS % 1.4 % (0-4.5); HEMATOCRIT 23.9 % (35.4-49); HEMOGLOBIN 7.8 GM/dL (11.7-16.9); LYMPH % 6.4 % (8-40); MCH 34.5 pg (25.7-33.7); MCHC 32.7 g/dl (32.0-35.9); MEAN CELL VOLUME 105.4 fl (80-96); MEAN PLT VOLUME 8.1 fl (7.5-11.1); MONO % 7.9 % (3.8-10.2); PLATELET COUNT 280 K/MM3 (134-434); RBC 2.27 M/mm3 (4.00-5.60); RDW 14.9 % (11.9-15.9); WHITE BLOOD COUNT 8.7 K/mm3 (4.0-10.0)
[2019-03-07 07:46] LABS: ALBUMIN 2.6 g/dl (3.4-5.0); ALK PHOS 237 U/L (45-117); ANION GAP 4 MMOL/L (8-16); BILIRUBIN,TOTAL 0.8 mg/dL (0.2-1); BLOOD UREA NITROGEN 31 mg/dL (7-18); CALCIUM 9.5 mg/dL (8.5-10.1); CHLORIDE 97 mmol/L (98-107); CO2 38 mmol/L (21-32); CREATININE 1.1 mg/dL (0.55-1.3); GLUCOSE,RANDOM 206 mg/dL (74-106); POTASSIUM 3.8 mmol/L (3.5-5.1); SGOT/AST 45 U/L (15-37); SGPT/ALT 41 U/L (13-61); SODIUM 139 mmol/L (136-145); TOT PROT 5.9 g/dl (6.4-8.2)
[2019-03-07] MEDS: TAMSULOSIN HCL 0.4 MG CAP PO SCH (09:27)
[2019-03-07] MEDS ORDERED: PT OWN MED DRAWER 7, Y5N ONE (11:15)
[2019-03-07] MEDS: POTASSIUM CHLORIDE TABS 20 MEQ TABLET.ER (FP) PO SCH (11:20)
[2019-03-07] MEDS: metoPROLOL SUCCINATE 25 MG TAB.SR.24H (FP) PO SCH (11:20)
[2019-03-07] MEDS: ISOSORBIDE MONONITRATE 30 MG TAB.SR.24H (FP) PO SCH (11:21)
[2019-03-07] MEDS: DIGOXIN 0.125 MG TABLET (FP) PO SCH (11:21)
[2019-03-07] MEDS: ESCITALOPRAM OXALATE 10 MG TABLET (FP) PO SCH (11:21)
[2019-03-07] MEDS: FUROSEMIDE 40 MG TABLET (FP) PO SCH (11:21)
[2019-03-07] MEDS: amLODIPine BESYLATE 5 MG TABLET (FP) PO SCH (11:22)
[2019-03-07] MEDS: APIXABAN 5 MG TABLET PO SCH ×2 (11:22→22:00)
[2019-03-07] MEDS: ASPIRIN COATED 81 MG TABLET.EC PO SCH (11:22)
[2019-03-07] MEDS: SACUBITRIL/VALSARTAN 24 MG-26 MG TABLET PO SCH ×2 (11:22→22:01)
[2019-03-07] MEDS: BUDESONIDE/FORMETEROL FUMARATE 160/4.5 mcg INHALER IH SCH ×2 (11:23→22:02)
[2019-03-07 11:36] LABS: ANISOCYTOSIS 1+; MACROCYTOSIS 1+; PLATELET ESTIMATE NORMAL
--- NOTE | 2019-03-07 11:52 | PN ---
Progress Note, Physician Chief Complaint: pain, weakness History of Present Illness: pain in R >> L hand, both feet. tender as well, hurts to move. R hand swollen. doesn't feel like his prior gout. feels weak and less mobile than baseline. denies sob, cp, palpit - Current Medication List Current Medications: Active Medications Acetaminophen (Tylenol -) 650 mg PO Q6H PRN PRN Reason: FEVER Last Admin: 03/07/19 04:17 Dose: 650 mg Amlodipine Besylate (Norvasc -) 5 mg PO DAILY [facility] Last Admin: 03/07/19 11:22 Dose: 5 mg Apixaban (Eliquis -) 5 mg PO BID [facility] Last Admin: 03/07/19 11:22 Dose: 5 mg Aspirin (Ecotrin -) 81 mg PO DAILY [facility] Last Admin: 03/07/19 11:22 Dose: 81 mg Atorvastatin Calcium (Lipitor -) 40 mg PO HS [facility] Last Admin: 03/06/19 22:07 Dose: 40 mg Budesonide/Formoterol Fumarate (Symbicort 160/4.5mcg -) 2 puff IH BID [facility] Last Admin: 03/07/19 11:23 Dose: 2 puff Digoxin (Lanoxin -) 0.125 mg PO DAILY [facility] Last Admin: 03/07/19 11:21 Dose: 0.125 mg Escitalopram Oxalate (Lexapro -) 10 mg PO DAILY [facility] Last Admin: 03/07/19 11:21 Dose: 10 mg Furosemide (Lasix -) 80 mg PO DAILY [facility] Last Admin: 03/07/19 11:21 Dose: 80 mg Insulin Aspart (Novolog Vial Sliding Scale -) 1 vial SQ [facility]; Protocol Last Admin: 03/07/19 06:49 Dose: 2 units Isosorbide Mononitrate (Imdur -) 60 mg PO DAILY [facility] Last Admin: 03/07/19 11:21 Dose: 60 mg Metoprolol Succinate (Toprol Xl -) 75 mg PO DAILY [facility] Last Admin: 03/07/19 11:20 Dose: 75 mg Potassium Chloride (K-Dur -) 40 meq PO DAILY [facility] Last Admin: 03/07/19 11:20 Dose: 40 meq Sacubitril/Valsartan (Entresto 24 Mg-26 Mg Tablet) 1 tab PO BID [facility] Last Admin: 03/07/19 11:22 Dose: 1 tab Tamsulosin HCl (Flomax -) 0.4 mg PO DAILY@0830 [facility] Last Admin: 03/07/19 09:27 Dose: 0.4 mg - Objective Vital Signs: Vital Signs Temperature 97.8 F 03/07/19 10:00 Pulse Rate 78 03/07/19 11:21 Respiratory Rate 20 03/07/19 10:00 Blood Pressure 151/66 03/07/19 10:00 O2 Sat by Pulse Oximetry (%) 99 03/06/19 22:00 Constitutional: Yes: Well Nourished, No Distress, Calm Cardiovascular: Yes: Regular Rate and Rhythm, S1, S2. No: JVD (tds habitus), Gallop, Murmur Respiratory: Yes: Regular, CTA Bilaterally. No: Accessory Muscle Use, Rales, Wheezes Extremities: No: Cold Edema: Yes (1+ ankle, +R hand) Neurological: Yes: Alert, Oriented Psychiatric: No: Agitated Labs: CBC, BMP 03/07/19 06:30 03/07/19 06:30 INR, PTT INR 1.11 (0.83-1.09) H 02/24/19 06:00 Assessment/Plan Echo: low-nl LVEF. RV dilated, TDS for fxn. mild MR/TR. RVSP 30-40 1. PSVT 2. H/o PAF 3. CAD s/p remote h/o coronary PCI 4. Chronic PHTN 5. Chronic combined diastolic/systolic CHF--stable 6. DM 7. Fall, probably mechanical 8. Elevated TnI 9. bilateral feet pain, R hand pain/swelling REC: 1. Elevated TnI (indeterminate range, flat trend) unlikely represents ACS; ECG not ischemic and no chest pain symptoms, normal CK Likely due to chronic combined systolic/diastolic CHF and chronic severe PHTN. 2. Echo - tds with EF 50%, unable to evaluate RV function though RV appears dilated--rec outpt cardio f/u and repeat echo ? with Definity contrast agent 3. Continue Eliquis (5mg dose) as [id number] score is elevated. 5. treated with lasix 80 iv bid here, wt trend 279 to 272--changed 03/05 to PO 80 qd. appears well compensated--continue same diuretic regimen 6. w/u and tx of arthralgias per primary team
--- NOTE | 2019-03-07 12:02 | PN ---
Progress Note, Physician History of Present Illness: PULMONARY ALERT,WEAK,LESS DYSPNEIC,OOB-CHAIR - Current Medication List Current Medications: Active Medications Acetaminophen (Tylenol -) 650 mg PO Q6H PRN PRN Reason: FEVER Last Admin: 03/07/19 04:17 Dose: 650 mg Amlodipine Besylate (Norvasc -) 5 mg PO DAILY REPLACED BY [facility] Last Admin: 03/07/19 11:22 Dose: 5 mg Apixaban (Eliquis -) 5 mg PO BID REPLACED BY [facility] Last Admin: 03/07/19 11:22 Dose: 5 mg Aspirin (Ecotrin -) 81 mg PO DAILY REPLACED BY [facility] Last Admin: 03/07/19 11:22 Dose: 81 mg Atorvastatin Calcium (Lipitor -) 40 mg PO HS REPLACED BY [facility] Last Admin: 03/06/19 22:07 Dose: 40 mg Budesonide/Formoterol Fumarate (Symbicort 160/4.5mcg -) 2 puff IH BID REPLACED BY [facility] Last Admin: 03/07/19 11:23 Dose: 2 puff Digoxin (Lanoxin -) 0.125 mg PO DAILY REPLACED BY [facility] Last Admin: 03/07/19 11:21 Dose: 0.125 mg Escitalopram Oxalate (Lexapro -) 10 mg PO DAILY REPLACED BY [facility] Last Admin: 03/07/19 11:21 Dose: 10 mg Furosemide (Lasix -) 80 mg PO DAILY REPLACED BY [facility] Last Admin: 03/07/19 11:21 Dose: 80 mg Insulin Aspart (Novolog Vial Sliding Scale -) 1 vial SQ ACHS REPLACED BY [facility]; Protocol Last Admin: 03/07/19 06:49 Dose: 2 units Isosorbide Mononitrate (Imdur -) 60 mg PO DAILY REPLACED BY [facility] Last Admin: 03/07/19 11:21 Dose: 60 mg Metoprolol Succinate (Toprol Xl -) 75 mg PO DAILY REPLACED BY [facility] Last Admin: 03/07/19 11:20 Dose: 75 mg Potassium Chloride (K-Dur -) 40 meq PO DAILY REPLACED BY [facility] Last Admin: 03/07/19 11:20 Dose: 40 meq Sacubitril/Valsartan (Entresto 24 Mg-26 Mg Tablet) 1 tab PO BID REPLACED BY [facility] Last Admin: 03/07/19 11:22 Dose: 1 tab Tamsulosin HCl (Flomax -) 0.4 mg PO DAILY@0830 REPLACED BY [facility] Last Admin: 03/07/19 09:27 Dose: 0.4 mg - Objective Vital Signs: Vital Signs Temperature 97.8 F 03/07/19 10:00 Pulse Rate 78 03/07/19 11:21 Respiratory Rate 20 03/07/19 10:00 Blood Pressure 151/66 03/07/19 10:00 O2 Sat by Pulse Oximetry (%) 99 03/06/19 22:00 Constitutional: Yes: Well Nourished, Calm Eyes: Yes: WNL HENT: Yes: WNL Neck: Yes: WNL Cardiovascular: Yes: Pulse Irregular, S1, S2 Respiratory: Yes: Rhonchi (FEW SCATTERED RHONCHI) Gastrointestinal: Yes: Normal Bowel Sounds, Soft Extremities: Yes: WNL Edema: Yes Labs: CBC, BMP 03/07/19 06:30 03/07/19 06:30 INR, PTT INR 1.11 (0.83-1.09) H 02/24/19 06:00 Assessment/Plan Problem List - Problems (1) Fall Code(s): W19.XXXA - UNSPECIFIED FALL, INITIAL ENCOUNTER (2) Acute respiratory failure with hypoxia and hypercapnia Code(s): J96.01 - ACUTE RESPIRATORY FAILURE WITH HYPOXIA; J96.02 - ACUTE RESPIRATORY FAILURE WITH HYPERCAPNIA (3) Elevated troponin Code(s): R74.8 - ABNORMAL LEVELS OF OTHER SERUM ENZYMES (4) Abdominal bloating Code(s): R14.0 - ABDOMINAL DISTENSION (GASEOUS) (5) CHF (congestive heart failure) Code(s): I50.9 - HEART FAILURE, UNSPECIFIED Qualifiers: Heart failure type: systolic Heart failure chronicity: acute on chronic Qualified Code(s): I50.23 - Acute on chronic systolic (congestive) heart failure (6) Chronic hypoxemic respiratory failure Code(s): J96.11 - CHRONIC RESPIRATORY FAILURE WITH HYPOXIA (7) Diabetes Code(s): E11.9 - TYPE 2 DIABETES MELLITUS WITHOUT COMPLICATIONS Qualifiers: Diabetes mellitus type: type 2 Diabetes mellitus complication status: without complication (8) Morbid obesity Code(s): E66.01 - MORBID (SEVERE) OBESITY DUE TO EXCESS CALORIES (9) Pulmonary HTN Code(s): I27.2 - OTHER SECONDARY PULMONARY HYPERTENSION * DO NOT USE * Assessment/Plan S/P FALL CHRONIC HYPERCAPNEIC HYPOXEMIC RESPIRATORY FAILURE ON HOME 02 3-4 L/M [facility] PAF PLAN INHALED BRONCHODILATORS O2 SUPPLEMENTATION DIURETICS ENTRESTO DAILY WT NIPPV NEEDED AC DR CARPENTER
--- NOTE | 2019-03-07 12:19 | DS ---
Physical Examination Vital Signs: Vital Signs Temperature 97.8 F 03/07/19 10:00 Pulse Rate 78 03/07/19 11:21 Respiratory Rate 20 03/07/19 10:00 Blood Pressure 151/66 03/07/19 10:00 O2 Sat by Pulse Oximetry (%) 99 03/06/19 22:00 Labs: CBC, BMP 03/07/19 06:30 03/07/19 06:30 Discharge Summary Reason For Visit: ACUTE RESPIRATORY FAILURE WITH HYPOXIA AND Current Active Problems Acute respiratory failure with hypoxia and hypercapnia (Acute) Atrial fibrillation (Acute) Elevated troponin (Acute) Extremity pain (Acute) Fall (Acute) Hypomagnesemia (Acute) Paroxysmal A-fib (Acute) Acute o chronic combined ystolic and diastolic heart failure ALY Morbid obesity Hospital Course: 78 year old male with PMH CAD, HTN, HLD, pulmonary HTN on 2L O2, prostate CA presented to ED for fall. He stated he accidentally rolled out of bed, faceplanting onto the ground, and was unable to get himself up off the ground. He denied LOC or vomiting. He complained of left sided anterior chest wall pain , neck pain, right shoulder pain. Pt had ct scan head wc was negative and multiple xrays including XRAY of rt hand/wrist/hip/shoulder/LS spine/Cspine wc were negative for any fractures. Pt does still complain of Rt shoulder pain and was seen by ortho who recommended physical therapy. Pt was admitted to [facility] for acute on chronic combined diastolic and systolic heart failure. Pt was followed by cardio and his lasix was given IV and then changed to PO. Pt still continues to have edema of lower extremities. Pt was also followed by pulmonary for his ALY and uses BIPAP at night. Condition: Good - Instructions Diet, Activity, Other Instructions: 2 gram sodium and 2200 calorie diabetic diet Disposition: [facility] - Home Medications Comprehensive Discharge Medication List: Ambulatory Orders Alendronate Na [Fosamax (Weekly)] 70 mg PO WE 01/29/17 Atorvastatin Calcium 40 mg PO DAILY 01/29/17 Escitalopram Oxalate [Lexapro -] 10 mg PO DAILY 01/29/17 Isosorbide Mononitrate [Imdur -] 60 mg PO DAILY 01/29/17 Sacubitril/Valsartan [Entresto 24 mg-26 mg Tablet] 1 tab PO BID 01/29/17 Aspirin Coated [Ecotrin -] 81 mg PO DAILY tablet.ec 11/05/17 Tamsulosin HCl [Flomax -] 0.4 mg PO DAILY@0830 #30 cap.er.24h 11/05/17 Amlodipine Besylate 5 mg PO DAILY 05/04/18 Metoprolol Succinate 50 mg PO DAILY 05/04/18 Insulin Glargine,Hum.rec.anlog [Basaglar Kwikpen U-100] 20 unit SQ DAILY Acetaminophen [Tylenol .Regular Strength -] 650 mg PO Q6H PRN tablet 03/07/19 Apixaban [Eliquis -] 5 mg PO BID tablet 03/07/19 Budesonide/Formeterol Fumarate [SYMBICORT 160/4.5mcg -] 2 puff IH BID inhaler 03/07/19 Digoxin [Lanoxin -] 0.125 mg PO DAILY tablet 03/07/19 Furosemide [Lasix -] 80 mg PO DAILY tablet 03/07/19 Insulin Sliding Scale [Novolog Vial Sliding Scale -] 1 vial SQ ACHS units 03/07 Potassium Chloride [K-Dur -] 40 meq PO DAILY tablet.er 03/07/19
[2019-03-07] MEDS ORDERED: INSULIN (NOVOLOG) ASPART 100 UNITS/ML 10ML VIAL ONE (12:31)
[2019-03-07] MEDS: ATORVASTATIN CA 40 MG TABLET (FP) PO SCH (22:00)
--- NOTE | 2019-03-07 23:04 | PN ---
Progress Note, Physician - Current Medication List Current Medications: Active Medications Acetaminophen (Tylenol -) 650 mg PO Q6H PRN PRN Reason: FEVER Last Admin: 03/07/19 13:55 Dose: 650 mg Amlodipine Besylate (Norvasc -) 5 mg PO DAILY [facility] Last Admin: 03/07/19 11:22 Dose: 5 mg Apixaban (Eliquis -) 5 mg PO BID [facility] Last Admin: 03/07/19 22:00 Dose: 5 mg Aspirin (Ecotrin -) 81 mg PO DAILY [facility] Last Admin: 03/07/19 11:22 Dose: 81 mg Atorvastatin Calcium (Lipitor -) 40 mg PO HS [facility] Last Admin: 03/07/19 22:00 Dose: 40 mg Budesonide/Formoterol Fumarate (Symbicort 160/4.5mcg -) 2 puff IH BID [facility] Last Admin: 03/07/19 22:02 Dose: 2 puff Digoxin (Lanoxin -) 0.125 mg PO DAILY [facility] Last Admin: 03/07/19 11:21 Dose: 0.125 mg Escitalopram Oxalate (Lexapro -) 10 mg PO DAILY [facility] Last Admin: 03/07/19 11:21 Dose: 10 mg Furosemide (Lasix -) 80 mg PO DAILY [facility] Last Admin: 03/07/19 11:21 Dose: 80 mg Insulin Aspart (Novolog Vial Sliding Scale -) 1 vial SQ ACHS [facility]; Protocol Last Admin: 03/07/19 22:01 Dose: 4 units Isosorbide Mononitrate (Imdur -) 60 mg PO DAILY [facility] Last Admin: 03/07/19 11:21 Dose: 60 mg Metoprolol Succinate (Toprol Xl -) 75 mg PO DAILY [facility] Last Admin: 03/07/19 11:20 Dose: 75 mg Potassium Chloride (K-Dur -) 40 meq PO DAILY [facility] Last Admin: 03/07/19 11:20 Dose: 40 meq Sacubitril/Valsartan (Entresto 24 Mg-26 Mg Tablet) 1 tab PO BID [facility] Last Admin: 03/07/19 22:01 Dose: 1 tab Tamsulosin HCl (Flomax -) 0.4 mg PO DAILY@0830 [facility] Last Admin: 03/07/19 09:27 Dose: 0.4 mg - Objective Vital Signs: Vital Signs Temperature 98.2 F 03/07/19 18:00 Pulse Rate 91 H 03/07/19 18:00 Respiratory Rate 19 03/07/19 18:00 Blood Pressure 118/68 03/07/19 18:00 O2 Sat by Pulse Oximetry (%) 98 03/07/19 10:00 Labs: CBC, BMP 03/07/19 06:30 03/07/19 06:30 INR, PTT INR 1.11 (0.83-1.09) H 02/24/19 06:00 Problem List - Problems (1) Chronic combined systolic and diastolic CHF, NYHA class 4 Code(s): I50.42 - CHRONIC COMBINED SYSTOLIC AND DIASTOLIC HRT FAIL (2) Extremity pain Code(s): M79.609 - PAIN IN UNSPECIFIED LIMB (3) Paroxysmal A-fib Code(s): I48.0 - PAROXYSMAL ATRIAL FIBRILLATION (4) Acute respiratory failure with hypoxia and hypercapnia Code(s): J96.01 - ACUTE RESPIRATORY FAILURE WITH HYPOXIA; J96.02 - ACUTE RESPIRATORY FAILURE WITH HYPERCAPNIA (5) Diabetes Code(s): E11.9 - TYPE 2 DIABETES MELLITUS WITHOUT COMPLICATIONS Qualifiers: Diabetes mellitus type: type 2 Diabetes mellitus complication status: without complication (6) Hypertension Code(s): I10 - ESSENTIAL (PRIMARY) HYPERTENSION (7) HLD (hyperlipidemia) Code(s): E78.5 - HYPERLIPIDEMIA, UNSPECIFIED (8) Pulmonary HTN Code(s): I27.2 - OTHER SECONDARY PULMONARY HYPERTENSION * DO NOT USE * (9) BPH (benign prostatic hyperplasia) Code(s): N40.0 - BENIGN PROSTATIC HYPERPLASIA WITHOUT LOWER URINRY TRACT SYMP (10) Morbid obesity Code(s): E66.01 - MORBID (SEVERE) OBESITY DUE TO EXCESS CALORIES
[2019-03-08] MEDS: INSULIN SLIDING SCALE (NOVOLOG) 1 VIAL SQ SCH ×4 (07:08→22:29)
[2019-03-08] MEDS ORDERED: INSULIN (NOVOLOG) ASPART 100 UNITS/ML 10ML VIAL ONE ×2 (07:11→12:11)
[2019-03-08 08:17] LABS: BASO % 0.3 % (0-2.0); EOS % 1.9 % (0-4.5); HEMOGLOBIN 7.4 GM/dL (11.7-16.9); LYMPH % 6.1 % (8-40); MCH 33.7 pg (25.7-33.7); MCHC 32.3 g/dl (32.0-35.9); MEAN CELL VOLUME 104.5 fl (80-96); MEAN PLT VOLUME 7.6 fl (7.5-11.1); MONO % 7.3 % (3.8-10.2); NEUT % 84.4 % (42.8-82.8); PLATELET COUNT 341 K/MM3 (134-434); RDW 15.1 % (11.9-15.9); WHITE BLOOD COUNT 10.6 K/mm3 (4.0-10.0)
[2019-03-08] MEDS ORDERED: PT OWN MED DRAWER 7, Y5N ONE (08:59)
[2019-03-08] MEDS: amLODIPine BESYLATE 5 MG TABLET (FP) PO SCH (09:09)
[2019-03-08] MEDS: FUROSEMIDE 40 MG TABLET (FP) PO SCH (09:09)
[2019-03-08] MEDS: metoPROLOL SUCCINATE 25 MG TAB.SR.24H (FP) PO SCH (09:09)
[2019-03-08] MEDS: POTASSIUM CHLORIDE TABS 20 MEQ TABLET.ER (FP) PO SCH (09:09)
[2019-03-08] MEDS: ISOSORBIDE MONONITRATE 30 MG TAB.SR.24H (FP) PO SCH (09:09)
[2019-03-08] MEDS: ASPIRIN COATED 81 MG TABLET.EC PO SCH ×2 (09:10→11:56)
[2019-03-08] MEDS: TAMSULOSIN HCL 0.4 MG CAP PO SCH (09:10)
[2019-03-08] MEDS: DIGOXIN 0.125 MG TABLET (FP) PO SCH (09:10)
[2019-03-08] MEDS: ESCITALOPRAM OXALATE 10 MG TABLET (FP) PO SCH (09:10)
[2019-03-08] MEDS: SACUBITRIL/VALSARTAN 24 MG-26 MG TABLET PO SCH ×2 (09:11→22:30)
[2019-03-08] MEDS: BUDESONIDE/FORMETEROL FUMARATE 160/4.5 mcg INHALER IH SCH ×2 (09:11→22:26)
[2019-03-08] MEDS: APIXABAN 5 MG TABLET PO SCH ×2 (11:56→22:30)
[2019-03-08] MEDS ORDERED: FUROSEMIDE 40 MG/4 ML INJECTABLE VIAL IVPUSH ONE ×2 (13:44→22:15)
--- NOTE | 2019-03-08 13:48 | PN ---
Progress Note, Physician History of Present Illness: pulmonary alert,feeling better,less dyspneic - Current Medication List Current Medications: Active Medications Acetaminophen (Tylenol -) 650 mg PO Q6H PRN PRN Reason: FEVER Last Admin: 03/07/19 13:55 Dose: 650 mg Amlodipine Besylate (Norvasc -) 5 mg PO DAILY [facility] Last Admin: 03/08/19 09:09 Dose: 5 mg Apixaban (Eliquis -) 5 mg PO BID [facility] Last Admin: 03/08/19 11:56 Dose: 5 mg Aspirin (Ecotrin -) 81 mg PO DAILY [facility] Last Admin: 03/08/19 11:56 Dose: 81 mg Atorvastatin Calcium (Lipitor -) 40 mg PO HS [facility] Last Admin: 03/07/19 22:00 Dose: 40 mg Budesonide/Formoterol Fumarate (Symbicort 160/4.5mcg -) 2 puff IH BID [facility] Last Admin: 03/08/19 09:11 Dose: 2 puff Digoxin (Lanoxin -) 0.125 mg PO DAILY [facility] Last Admin: 03/08/19 09:10 Dose: 0.125 mg Escitalopram Oxalate (Lexapro -) 10 mg PO DAILY [facility] Last Admin: 03/08/19 09:10 Dose: 10 mg Furosemide (Lasix -) 80 mg PO DAILY [facility] Last Admin: 03/08/19 09:09 Dose: 80 mg Insulin Aspart (Novolog Vial Sliding Scale -) [address] [facility]; Protocol Last Admin: 03/08/19 12:12 Dose: 2 units Isosorbide Mononitrate (Imdur -) 60 mg PO DAILY [facility] Last Admin: 03/08/19 09:09 Dose: 60 mg Metoprolol Succinate (Toprol Xl -) 75 mg PO DAILY [facility] Last Admin: 03/08/19 09:09 Dose: 75 mg Potassium Chloride (K-Dur -) 40 meq PO DAILY [facility] Last Admin: 03/08/19 09:09 Dose: 40 meq Sacubitril/Valsartan (Entresto 24 Mg-26 Mg Tablet) 1 tab PO BID [facility] Last Admin: 03/08/19 09:11 Dose: 1 tab Tamsulosin HCl (Flomax -) 0.4 mg PO DAILY@0830 [facility] Last Admin: 03/08/19 09:10 Dose: 0.4 mg - Objective Vital Signs: Vital Signs Temperature 98.6 F 03/08/19 10:00 Pulse Rate 81 03/08/19 10:00 Respiratory Rate 19 03/08/19 10:00 Blood Pressure 137/74 03/08/19 10:00 O2 Sat by Pulse Oximetry (%) 97 03/08/19 10:00 Constitutional: Yes: Well Nourished, Calm Eyes: Yes: WNL HENT: Yes: WNL Neck: Yes: WNL Cardiovascular: Yes: Pulse Irregular, S1, S2 Respiratory: Yes: Wheezes (few wheezes) Gastrointestinal: Yes: Normal Bowel Sounds, Soft Extremities: Yes: WNL Edema: Yes Labs: CBC, BMP 03/08/19 07:40 Assessment/Plan Problem List - Problems (1) Fall Code(s): W19.XXXA - UNSPECIFIED FALL, INITIAL ENCOUNTER (2) Acute respiratory failure with hypoxia and hypercapnia Code(s): J96.01 - ACUTE RESPIRATORY FAILURE WITH HYPOXIA; J96.02 - ACUTE RESPIRATORY FAILURE WITH HYPERCAPNIA (3) Elevated troponin Code(s): R74.8 - ABNORMAL LEVELS OF OTHER SERUM ENZYMES (4) Abdominal bloating Code(s): R14.0 - ABDOMINAL DISTENSION (GASEOUS) (5) CHF (congestive heart failure) Code(s): I50.9 - HEART FAILURE, UNSPECIFIED Qualifiers: Heart failure type: systolic Heart failure chronicity: acute on chronic Qualified Code(s): I50.23 - Acute on chronic systolic (congestive) heart failure (6) Chronic hypoxemic respiratory failure Code(s): J96.11 - CHRONIC RESPIRATORY FAILURE WITH HYPOXIA (7) Diabetes Code(s): E11.9 - TYPE 2 DIABETES MELLITUS WITHOUT COMPLICATIONS Qualifiers: Diabetes mellitus type: type 2 Diabetes mellitus complication status: without complication (8) Morbid obesity Code(s): E66.01 - MORBID (SEVERE) OBESITY DUE TO EXCESS CALORIES (9) Pulmonary HTN Code(s): I27.2 - OTHER SECONDARY PULMONARY HYPERTENSION * DO NOT USE * Assessment/Plan S/P FALL CHRONIC HYPERCAPNEIC HYPOXEMIC RESPIRATORY FAILURE ON HOME 02 3-4 L/M [facility] PAF PLAN INHALED BRONCHODILATORS O2 SUPPLEMENTATION DIURETICS ENTRESTO DAILY WT NIPPV NEEDED TRANSFUSION AC DR CARPENTER
[2019-03-08 14:50] VITALS: BMI 38.2
--- NOTE | 2019-03-08 15:20 | PN ---
Progress Note (short form) - Note Progress Note: s: sob improved, edema improved. no chest pain, palps, dizziness. Current Medications Generic Name Dose Route Start Last Admin Trade Name Freq PRN Reason Stop Dose Admin Acetaminophen 650 mg 02/27/19 15:05 03/07/19 13:55 Tylenol - PO 650 mg Q6H PRN Administration FEVER Amlodipine Besylate 5 mg 02/25/19 10:00 03/08/19 09:09 Norvasc - PO 5 mg DAILY [facility] Administration Apixaban 5 mg 02/25/19 10:00 03/08/19 11:56 Eliquis - PO 5 mg BID [facility] Administration Aspirin 81 mg 02/25/19 10:00 03/08/19 11:56 Ecotrin - PO 81 mg DAILY [facility] Administration Atorvastatin Calcium 40 mg 02/24/19 22:00 03/07/19 22:00 Lipitor - PO 40 mg HS [facility] Administration Budesonide/Formoterol Fumarate 2 puff 02/25/19 22:00 03/08/19 09:11 Symbicort 160/4.5mcg - IH 2 puff BID [facility] Administration Digoxin 0.125 mg 02/26/19 10:00 03/08/19 09:10 Lanoxin - PO 0.125 mg DAILY [facility] Administration Escitalopram Oxalate 10 mg 02/25/19 10:00 03/08/19 09:10 Lexapro - PO 10 mg DAILY [facility] Administration Furosemide 80 mg 03/06/19 10:00 03/08/19 09:09 Lasix - PO 80 mg DAILY [facility] Administration Insulin Aspart 1 vial 02/24/19 22:00 03/08/19 12:12 Novolog Vial Sliding Scale - SQ 2 units ACHS [facility] Administration Protocol Isosorbide Mononitrate 60 mg 02/25/19 10:00 03/08/19 09:09 Imdur - PO 60 mg DAILY [facility] Administration Metoprolol Succinate 75 mg 02/26/19 10:00 03/08/19 09:09 Toprol Xl - PO 75 mg DAILY [facility] Administration Potassium Chloride 40 meq 03/06/19 12:15 03/08/19 09:09 K-Dur - PO 40 meq DAILY [facility] Administration Sacubitril/Valsartan 1 tab 02/24/19 22:00 03/08/19 09:11 Entresto 24 Mg-26 Mg Tablet PO 1 tab BID [facility] Administration Tamsulosin HCl 0.4 mg 02/25/19 08:30 03/08/19 09:10 Flomax - PO 0.4 mg DAILY@0830 [facility] Administration Vital Signs Period Temp Pulse Resp BP Sys/[place] Pulse Ox Last 24 Hr 98.2 F-99.8 F 81-94 19-20 112-137/60-74 95-100 Constitutional: Yes: No Distress Cardiovascular: Yes: Pulse Irregular Gastrointestinal: Yes: Soft, Abdomen, Obese cta bl nl eff Edema: Yes Edema: trace bl Neurological: Yes: Alert, Oriented no jaundice diaphoresis - ....Imaging EKG: Image Reviewed CBC, BMP 03/08/19 07:40 03/07/19 06:30 Assessment/Plan Echo: low-nl LVEF. RV dilated, TDS for fxn. mild MR/TR. RVSP 30-40 1. PSVT 2. H/o PAF 3. CAD s/p remote h/o coronary PCI 4. Chronic PHTN 5. Chronic combined diastolic/systolic CHF--stable 6. DM 7. Fall, probably mechanical 8. Elevated TnI 9. bilateral feet pain, R hand pain/swelling REC: 1. Elevated TnI (indeterminate range, flat trend) unlikely represents ACS; ECG not ischemic and no chest pain symptoms, normal CK Likely due to chronic combined systolic/diastolic CHF and chronic severe PHTN. 2. Echo - tds with EF 50%, unable to evaluate RV function though RV appears dilated--rec outpt cardio f/u and repeat echo ? with Definity contrast agent 3. Continue Eliquis (5mg dose) as [id number] score is elevated. 5. treated with lasix 80 iv bid here, wt trend 279 to 272--changed 03/05 to PO 80 qd. appears well compensated--continue same diuretic regimen 6. w/u and tx of arthralgias per primary team
--- NOTE | 2019-03-08 21:54 | PN ---
Progress Note, Physician History of Present Illness: No new complaints - Current Medication List Current Medications: Active Medications Acetaminophen (Tylenol -) 650 mg PO Q6H PRN PRN Reason: FEVER Last Admin: 03/07/19 13:55 Dose: 650 mg Amlodipine Besylate (Norvasc -) 5 mg PO DAILY [facility] Last Admin: 03/08/19 09:09 Dose: 5 mg Apixaban (Eliquis -) 5 mg PO BID [facility] Last Admin: 03/08/19 11:56 Dose: 5 mg Aspirin (Ecotrin -) 81 mg PO DAILY [facility] Last Admin: 03/08/19 11:56 Dose: 81 mg Atorvastatin Calcium (Lipitor -) 40 mg PO HS [facility] Last Admin: 03/07/19 22:00 Dose: 40 mg Budesonide/Formoterol Fumarate (Symbicort 160/4.5mcg -) 2 puff IH BID [facility] Last Admin: 03/08/19 09:11 Dose: 2 puff Digoxin (Lanoxin -) 0.125 mg PO DAILY [facility] Last Admin: 03/08/19 09:10 Dose: 0.125 mg Escitalopram Oxalate (Lexapro -) 10 mg PO DAILY [facility] Last Admin: 03/08/19 09:10 Dose: 10 mg Furosemide (Lasix -) 80 mg PO DAILY [facility] Last Admin: 03/08/19 09:09 Dose: 80 mg Insulin Aspart (Novolog Vial Sliding Scale -) 1 vial SQ [facility]; Protocol Last Admin: 03/08/19 17:05 Dose: 2 units Isosorbide Mononitrate (Imdur -) 60 mg PO DAILY [facility] Last Admin: 03/08/19 09:09 Dose: 60 mg Metoprolol Succinate (Toprol Xl -) 75 mg PO DAILY [facility] Last Admin: 03/08/19 09:09 Dose: 75 mg Potassium Chloride (K-Dur -) 40 meq PO DAILY [facility] Last Admin: 03/08/19 09:09 Dose: 40 meq Sacubitril/Valsartan (Entresto 24 Mg-26 Mg Tablet) 1 tab PO BID [facility] Last Admin: 03/08/19 09:11 Dose: 1 tab Tamsulosin HCl (Flomax -) 0.4 mg PO DAILY@0830 [facility] Last Admin: 03/08/19 09:10 Dose: 0.4 mg - Objective Vital Signs: Vital Signs Temperature 98.6 F 03/08/19 18:00 Pulse Rate 93 H 03/08/19 18:00 Respiratory Rate 20 03/08/19 18:00 Blood Pressure 107/49 L 03/08/19 18:00 O2 Sat by Pulse Oximetry (%) 98 03/08/19 19:55 Neck: Yes: WNL, Supple Cardiovascular: Yes: WNL, Regular Rate and Rhythm Respiratory: Yes: WNL, Regular, CTA Bilaterally Gastrointestinal: Yes: WNL, Normal Bowel Sounds, Soft Extremities: Yes: Other ((+) swelling Rt hand) Edema: LLE: 1+, RLE: 1+ Labs: CBC, BMP 03/08/19 07:40 03/07/19 06:30 INR, PTT INR 1.11 (0.83-1.09) H 02/24/19 06:00 Problem List - Problems (1) Anemia Assessment/Plan: Transfuse 1 unit PRBC's DC planning for am Code(s): D64.9 - ANEMIA, UNSPECIFIED (2) Chronic combined systolic and diastolic CHF, NYHA class 4 Assessment/Plan: Cont po lasix Cont entresto Monitor electrolytes DC planning to STR in am Code(s): I50.42 - CHRONIC COMBINED SYSTOLIC AND DIASTOLIC HRT FAIL (3) Extremity pain Assessment/Plan: Splint as per ortho Ortho consult noted Cont PT Code(s): M79.609 - PAIN IN UNSPECIFIED LIMB (4) Paroxysmal A-fib Assessment/Plan: Heart rate controlled Cont dig/BB/eliquis Code(s): I48.0 - PAROXYSMAL ATRIAL FIBRILLATION (5) Acute respiratory failure with hypoxia and hypercapnia Assessment/Plan: Cont inhalers nebulizer/symbicort Cont BIPAP as needed wc pt is using at night Code(s): J96.01 - ACUTE RESPIRATORY FAILURE WITH HYPOXIA; J96.02 - ACUTE RESPIRATORY FAILURE WITH HYPERCAPNIA (6) Diabetes Assessment/Plan: Cont sliding scale w/ coverage Code(s): E11.9 - TYPE 2 DIABETES MELLITUS WITHOUT COMPLICATIONS Qualifiers: Diabetes mellitus type: type 2 Diabetes mellitus complication status: without complication (7) Hypertension Code(s): I10 - ESSENTIAL (PRIMARY) HYPERTENSION (8) HLD (hyperlipidemia) Code(s): E78.5 - HYPERLIPIDEMIA, UNSPECIFIED (9) Pulmonary HTN Code(s): I27.2 - OTHER SECONDARY PULMONARY HYPERTENSION * DO NOT USE * (10) BPH (benign prostatic hyperplasia) Code(s): N40.0 - BENIGN PROSTATIC HYPERPLASIA WITHOUT LOWER URINRY TRACT SYMP (11) Morbid obesity Code(s): E66.01 - MORBID (SEVERE) OBESITY DUE TO EXCESS CALORIES
[2019-03-08] MEDS: ATORVASTATIN CA 40 MG TABLET (FP) PO SCH (22:30)
[2019-03-09] MEDS: ACETAMINOPHEN 325 MG TABLET (FP) PO PRN (00:46)
[2019-03-09] MEDS: INSULIN SLIDING SCALE (NOVOLOG) 1 VIAL SQ SCH ×4 (06:33→21:53)
[2019-03-09 07:18] LABS: BASO % 0.5 % (0-2.0); HEMATOCRIT 26.9 % (35.4-49); HEMOGLOBIN 8.8 GM/dL (11.7-16.9); LYMPH % 8.6 % (8-40); MCH 33.8 pg (25.7-33.7); MCHC 32.7 g/dl (32.0-35.9); MEAN CELL VOLUME 103.3 fl (80-96); MEAN PLT VOLUME 8.1 fl (7.5-11.1); MONO % 7.5 % (3.8-10.2); NEUT % 81.4 % (42.8-82.8); PLATELET COUNT 375 K/MM3 (134-434); RDW 16.4 % (11.9-15.9); WHITE BLOOD COUNT 10.6 K/mm3 (4.0-10.0)
[2019-03-09 07:25] LABS: ALBUMIN 2.6 g/dl (3.4-5.0); ALK PHOS 255 U/L (45-117); ANION GAP 3 MMOL/L (8-16); BLOOD UREA NITROGEN 21 mg/dL (7-18); CALCIUM 9.8 mg/dL (8.5-10.1); CHLORIDE 98 mmol/L (98-107); CO2 38 mmol/L (21-32); CREATININE 0.9 mg/dL (0.55-1.3); GLUCOSE,RANDOM 173 mg/dL (74-106); POTASSIUM 4.4 mmol/L (3.5-5.1); SGOT/AST 33 U/L (15-37); SGPT/ALT 35 U/L (13-61); SODIUM 139 mmol/L (136-145); TOT PROT 6.4 g/dl (6.4-8.2)
[2019-03-09] MEDS: TAMSULOSIN HCL 0.4 MG CAP PO SCH (09:06)
[2019-03-09] MEDS ORDERED: PT OWN MED DRAWER 7, Y5N ONE ×3 (10:49→21:48)
[2019-03-09] MEDS: metoPROLOL SUCCINATE 25 MG TAB.SR.24H (FP) PO SCH (10:52)
[2019-03-09] MEDS: APIXABAN 5 MG TABLET PO SCH ×2 (10:52→21:53)
[2019-03-09] MEDS: ISOSORBIDE MONONITRATE 30 MG TAB.SR.24H (FP) PO SCH (10:53)
[2019-03-09] MEDS: FUROSEMIDE 40 MG TABLET (FP) PO SCH (10:53)
[2019-03-09] MEDS: DIGOXIN 0.125 MG TABLET (FP) PO SCH (10:53)
[2019-03-09] MEDS: ESCITALOPRAM OXALATE 10 MG TABLET (FP) PO SCH (10:53)
[2019-03-09] MEDS: POTASSIUM CHLORIDE TABS 20 MEQ TABLET.ER (FP) PO SCH (10:53)
[2019-03-09] MEDS: amLODIPine BESYLATE 5 MG TABLET (FP) PO SCH (10:54)
[2019-03-09] MEDS: SACUBITRIL/VALSARTAN 24 MG-26 MG TABLET PO SCH ×2 (10:54→21:53)
[2019-03-09] MEDS: ASPIRIN COATED 81 MG TABLET.EC PO SCH (10:54)
[2019-03-09] MEDS: BUDESONIDE/FORMETEROL FUMARATE 160/4.5 mcg INHALER IH SCH ×2 (10:55→21:52)
--- NOTE | 2019-03-09 11:23 | PN ---
Progress Note, Physician History of Present Illness: pulmonary alert,oob-chair,less dyspneic - Current Medication List Current Medications: Active Medications Acetaminophen (Tylenol -) 650 mg PO Q6H PRN PRN Reason: FEVER Last Admin: 03/09/19 00:46 Dose: 650 mg Amlodipine Besylate (Norvasc -) 5 mg PO DAILY [facility] Last Admin: 03/09/19 10:54 Dose: 5 mg Apixaban (Eliquis -) 5 mg PO BID [facility] Last Admin: 03/09/19 10:52 Dose: 5 mg Aspirin (Ecotrin -) 81 mg PO DAILY [facility] Last Admin: 03/09/19 10:54 Dose: 81 mg Atorvastatin Calcium (Lipitor -) 40 mg PO HS [facility] Last Admin: 03/08/19 22:30 Dose: 40 mg Budesonide/Formoterol Fumarate (Symbicort 160/4.5mcg -) 2 puff IH BID [facility] Last Admin: 03/09/19 10:55 Dose: 2 puff Digoxin (Lanoxin -) 0.125 mg PO DAILY [facility] Last Admin: 03/09/19 10:53 Dose: 0.125 mg Escitalopram Oxalate (Lexapro -) 10 mg PO DAILY [facility] Last Admin: 03/09/19 10:53 Dose: 10 mg Furosemide (Lasix -) 80 mg PO DAILY [facility] Last Admin: 03/09/19 10:53 Dose: 80 mg Insulin Aspart (Novolog Vial Sliding Scale -) 1 vial SQ [facility]; Protocol Last Admin: 03/09/19 06:33 Dose: 2 units Isosorbide Mononitrate (Imdur -) 60 mg PO DAILY [facility] Last Admin: 03/09/19 10:53 Dose: 60 mg Metoprolol Succinate (Toprol Xl -) 75 mg PO DAILY [facility] Last Admin: 03/09/19 10:52 Dose: 75 mg Potassium Chloride (K-Dur -) 40 meq PO DAILY [facility] Last Admin: 03/09/19 10:53 Dose: 40 meq Sacubitril/Valsartan (Entresto 24 Mg-26 Mg Tablet) 1 tab PO BID [facility] Last Admin: 03/09/19 10:54 Dose: 1 tab Tamsulosin HCl (Flomax -) 0.4 mg PO DAILY@0830 [facility] Last Admin: 03/09/19 09:06 Dose: 0.4 mg - Objective Vital Signs: Vital Signs Temperature 97.7 F 03/09/19 10:51 Pulse Rate 89 03/09/19 10:53 Respiratory Rate 24 H 03/09/19 10:51 Blood Pressure 136/81 03/09/19 10:51 O2 Sat by Pulse Oximetry (%) 98 03/09/19 08:15 Constitutional: Yes: Well Nourished, Calm Eyes: Yes: WNL HENT: Yes: WNL Neck: Yes: WNL Cardiovascular: Yes: Pulse Irregular, S1, S2 Respiratory: Yes: Rales (few bibasilar rales) Gastrointestinal: Yes: Normal Bowel Sounds, Soft Extremities: Yes: WNL Edema: Yes Labs: CBC, BMP 03/09/19 06:00 03/09/19 06:00 INR, PTT INR 1.11 (0.83-1.09) H 02/24/19 06:00 Assessment/Plan Problem List - Problems (1) Fall Code(s): W19.XXXA - UNSPECIFIED FALL, INITIAL ENCOUNTER (2) Acute respiratory failure with hypoxia and hypercapnia Code(s): J96.01 - ACUTE RESPIRATORY FAILURE WITH HYPOXIA; J96.02 - ACUTE RESPIRATORY FAILURE WITH HYPERCAPNIA (3) Elevated troponin Code(s): R74.8 - ABNORMAL LEVELS OF OTHER SERUM ENZYMES (4) Abdominal bloating Code(s): R14.0 - ABDOMINAL DISTENSION (GASEOUS) (5) CHF (congestive heart failure) Code(s): I50.9 - HEART FAILURE, UNSPECIFIED Qualifiers: Heart failure type: systolic Heart failure chronicity: acute on chronic Qualified Code(s): I50.23 - Acute on chronic systolic (congestive) heart failure (6) Chronic hypoxemic respiratory failure Code(s): J96.11 - CHRONIC RESPIRATORY FAILURE WITH HYPOXIA (7) Diabetes Code(s): E11.9 - TYPE 2 DIABETES MELLITUS WITHOUT COMPLICATIONS Qualifiers: Diabetes mellitus type: type 2 Diabetes mellitus complication status: without complication (8) Morbid obesity Code(s): E66.01 - MORBID (SEVERE) OBESITY DUE TO EXCESS CALORIES (9) Pulmonary HTN Code(s): I27.2 - OTHER SECONDARY PULMONARY HYPERTENSION * DO NOT USE * Assessment/Plan S/P FALL CHRONIC HYPERCAPNEIC HYPOXEMIC RESPIRATORY FAILURE ON HOME 02 3-4 L/M [facility] PAF PLAN INHALED BRONCHODILATORS O2 SUPPLEMENTATION DIURETICS ENTRESTO DAILY WT NIPPV NEEDED TRANSFUSION AC DR CARPENTER
[2019-03-09 14:23] LABS: ARTERIAL BLD GAS O2 SATURATION 97.5 % (95-98); ARTERIAL BLOOD GAS PCO2 59.1 mmHg (35-45); ARTERIAL BLOOD GAS PO2 93.6 mmHg (80-105)
[2019-03-09 14:29] LABS: ALLENS TEST POSITIVE
--- NOTE | 2019-03-09 15:02 | PN ---
Progress Note, Physician Chief Complaint: no distress legs a bit more swollen - Current Medication List Current Medications: Active Medications Acetaminophen (Tylenol -) 650 mg PO Q6H PRN PRN Reason: FEVER Last Admin: 03/09/19 00:46 Dose: 650 mg Amlodipine Besylate (Norvasc -) 5 mg PO DAILY [facility] Last Admin: 03/09/19 10:54 Dose: 5 mg Apixaban (Eliquis -) 5 mg PO BID [facility] Last Admin: 03/09/19 10:52 Dose: 5 mg Aspirin (Ecotrin -) 81 mg PO DAILY [facility] Last Admin: 03/09/19 10:54 Dose: 81 mg Atorvastatin Calcium (Lipitor -) 40 mg PO HS [facility] Last Admin: 03/08/19 22:30 Dose: 40 mg Budesonide/Formoterol Fumarate (Symbicort 160/4.5mcg -) 2 puff IH BID [facility] Last Admin: 03/09/19 10:55 Dose: 2 puff Digoxin (Lanoxin -) 0.125 mg PO DAILY [facility] Last Admin: 03/09/19 10:53 Dose: 0.125 mg Escitalopram Oxalate (Lexapro -) 10 mg PO DAILY [facility] Last Admin: 03/09/19 10:53 Dose: 10 mg Furosemide (Lasix -) 80 mg PO DAILY [facility] Last Admin: 03/09/19 10:53 Dose: 80 mg Insulin Aspart (Novolog Vial Sliding Scale -) 1 vial SQ [facility]; Protocol Last Admin: 03/09/19 11:59 Dose: 4 units Isosorbide Mononitrate (Imdur -) 60 mg PO DAILY [facility] Last Admin: 03/09/19 10:53 Dose: 60 mg Metoprolol Succinate (Toprol Xl -) 75 mg PO DAILY [facility] Last Admin: 03/09/19 10:52 Dose: 75 mg Potassium Chloride (K-Dur -) 40 meq PO DAILY [facility] Last Admin: 03/09/19 10:53 Dose: 40 meq Sacubitril/Valsartan (Entresto 24 Mg-26 Mg Tablet) 1 tab PO BID [facility] Last Admin: 03/09/19 10:54 Dose: 1 tab Tamsulosin HCl (Flomax -) 0.4 mg PO DAILY@0830 [facility] Last Admin: 03/09/19 09:06 Dose: 0.4 mg - Objective Vital Signs: Vital Signs Temperature 97.7 F 05/01/19 10:51 Pulse Rate 89 03/09/19 10:53 Respiratory Rate 24 H 03/09/19 10:51 Blood Pressure 136/81 03/09/19 10:51 O2 Sat by Pulse Oximetry (%) 98 03/09/19 08:15 Constitutional: Yes: No Distress Cardiovascular: Yes: Pulse Irregular Respiratory: Yes: CTA Bilaterally Gastrointestinal: Yes: Soft, Abdomen, Obese Edema: Yes Edema: LLE: 2+, RLE: 2+ Neurological: Yes: Alert, Oriented Labs: CBC, BMP 03/09/19 06:00 03/09/19 06:00 INR, PTT INR 1.11 (0.83-1.09) H 02/24/19 06:00 Laboratory Tests 03/09/19 03/09/19 06:00 06:00 WBC 10.6 H Hgb 8.8 L MPV 8.1 Sodium 139 Potassium 4.4 BUN 21 H Creatinine 0.9 Problem List - Problems (1) Elevated troponin Code(s): R74.8 - ABNORMAL LEVELS OF OTHER SERUM ENZYMES (2) Abdominal bloating Code(s): R14.0 - ABDOMINAL DISTENSION (GASEOUS) (3) Chronic combined systolic and diastolic CHF, NYHA class 4 Code(s): I50.42 - CHRONIC COMBINED SYSTOLIC AND DIASTOLIC HRT FAIL (4) Diabetes Code(s): E11.9 - TYPE 2 DIABETES MELLITUS WITHOUT COMPLICATIONS Qualifiers: Diabetes mellitus type: type 2 Diabetes mellitus complication status: without complication (5) Dyspnea Code(s): R06.00 - DYSPNEA, UNSPECIFIED Qualifiers: Dyspnea type: unspecified Qualified Code(s): R06.00 - Dyspnea, unspecified (6) Morbid obesity Code(s): E66.01 - MORBID (SEVERE) OBESITY DUE TO EXCESS CALORIES (7) PSVT (paroxysmal supraventricular tachycardia) Code(s): I47.1 - SUPRAVENTRICULAR TACHYCARDIA (8) Pulmonary HTN Code(s): I27.2 - OTHER SECONDARY PULMONARY HYPERTENSION * DO NOT USE * (9) Atrial fibrillation Code(s): I48.91 - UNSPECIFIED ATRIAL FIBRILLATION Assessment/Plan Assessment/Plan Echo: low-nl LVEF. RV dilated, TDS for fxn. mild MR/TR. RVSP 30-40 1. PSVT 2. H/o PAF 3. CAD s/p remote h/o coronary PCI 4. Chronic PHTN 5. Chronic combined diastolic/systolic CHF--stable 6. DM 7. Fall, probably mechanical 8. Elevated TnI 9. bilateral feet pain, R hand pain/swelling REC: 1. Elevated TnI (indeterminate range, flat trend) unlikely represents ACS; ECG not ischemic and no chest pain symptoms, normal CK Likely due to chronic combined systolic/diastolic CHF and chronic severe PHTN. 2. Echo - tds with EF 50%, unable to evaluate RV function though RV appears dilated--rec outpt cardio f/u and repeat echo ? with Definity contrast agent 3. Continue Eliquis (5mg dose) as [id number] score is elevated. 5. Add Zaroxolyn 2.5 mg TIW and follow renal function and lytes
--- NOTE | 2019-03-09 20:02 | PN ---
Progress Note, Physician History of Present Illness: No new complaints - Current Medication List Current Medications: Active Medications Acetaminophen (Tylenol -) 650 mg PO Q6H PRN PRN Reason: FEVER Last Admin: 03/09/19 00:46 Dose: 650 mg Amlodipine Besylate (Norvasc -) 5 mg PO DAILY [facility] Last Admin: 03/09/19 10:54 Dose: 5 mg Apixaban (Eliquis -) 5 mg PO BID [facility] Last Admin: 03/09/19 10:52 Dose: 5 mg Aspirin (Ecotrin -) 81 mg PO DAILY [facility] Last Admin: 03/09/19 10:54 Dose: 81 mg Atorvastatin Calcium (Lipitor -) 40 mg PO HS [facility] Last Admin: 03/08/19 22:30 Dose: 40 mg Budesonide/Formoterol Fumarate (Symbicort 160/4.5mcg -) 2 puff IH BID [facility] Last Admin: 03/09/19 10:55 Dose: 2 puff Digoxin (Lanoxin -) 0.125 mg PO DAILY [facility] Last Admin: 03/09/19 10:53 Dose: 0.125 mg Escitalopram Oxalate (Lexapro -) 10 mg PO DAILY [facility] Last Admin: 03/09/19 10:53 Dose: 10 mg Furosemide (Lasix -) 80 mg PO DAILY [facility] Last Admin: 03/09/19 10:53 Dose: 80 mg Insulin Aspart (Novolog Vial Sliding Scale -) 1 vial SQ [facility]; Protocol Last Admin: 03/09/19 17:00 Dose: 2 units Isosorbide Mononitrate (Imdur -) 60 mg PO DAILY [facility] Last Admin: 03/09/19 10:53 Dose: 60 mg Metolazone (Zaroxolyn -) 2.5 mg PO MoWeFr@0930 [facility] Metoprolol Succinate (Toprol Xl -) 75 mg PO DAILY [facility] Last Admin: 03/09/19 10:52 Dose: 75 mg Potassium Chloride (K-Dur -) 40 meq PO DAILY [facility] Last Admin: 03/09/19 10:53 Dose: 40 meq Sacubitril/Valsartan (Entresto 24 Mg-26 Mg Tablet) 1 tab PO BID [facility] Last Admin: 03/09/19 10:54 Dose: 1 tab Tamsulosin HCl (Flomax -) 0.4 mg PO DAILY@0830 [facility] Last Admin: 03/09/19 09:06 Dose: 0.4 mg - Objective Vital Signs: Vital Signs Temperature 98.1 F 03/09/19 18:00 Pulse Rate 98 H 03/09/19 18:00 Respiratory Rate 20 03/09/19 18:00 Blood Pressure 147/86 03/09/19 18:00 O2 Sat by Pulse Oximetry (%) 96 03/09/19 16:33 Constitutional: Yes: Well Nourished Neck: Yes: WNL, Supple Cardiovascular: Yes: WNL, Regular Rate and Rhythm Respiratory: Yes: WNL, Regular, CTA Bilaterally Gastrointestinal: Yes: WNL, Normal Bowel Sounds, Soft, Abdomen, Obese Edema: LLE: 1+, RLE: 1+ Labs: CBC, BMP 03/09/19 06:00 03/09/19 06:00 INR, PTT INR 1.11 (0.83-1.09) H 02/24/19 06:00 Problem List - Problems (1) Anemia Assessment/Plan: Transfused 1 unit PRBC's DC planning for am Code(s): D64.9 - ANEMIA, UNSPECIFIED (2) Chronic combined systolic and diastolic CHF, NYHA class 4 Assessment/Plan: Cont po lasix/zaroxolyn Cont entresto Monitor electrolytes DC planning to STR in am Code(s): I50.42 - CHRONIC COMBINED SYSTOLIC AND DIASTOLIC HRT FAIL (3) Extremity pain Assessment/Plan: Splint as per ortho Ortho consult noted Cont PT Code(s): M79.609 - PAIN IN UNSPECIFIED LIMB (4) Paroxysmal A-fib Assessment/Plan: Heart rate controlled Cont dig/BB/eliquis Code(s): I48.0 - PAROXYSMAL ATRIAL FIBRILLATION (5) Acute respiratory failure with hypoxia and hypercapnia Assessment/Plan: Cont inhalers nebulizer/symbicort Cont BIPAP as needed wc pt is using at night Code(s): J96.01 - ACUTE RESPIRATORY FAILURE WITH HYPOXIA; J96.02 - ACUTE RESPIRATORY FAILURE WITH HYPERCAPNIA (6) Diabetes Assessment/Plan: Cont sliding scale w/ coverage Code(s): E11.9 - TYPE 2 DIABETES MELLITUS WITHOUT COMPLICATIONS Qualifiers: Diabetes mellitus type: type 2 Diabetes mellitus complication status: without complication (7) Hypertension Assessment/Plan: BP stable Cont asa/norvasc/imdur/toprol Code(s): I10 - ESSENTIAL (PRIMARY) HYPERTENSION (8) HLD (hyperlipidemia) Assessment/Plan: Cont lipitor Code(s): E78.5 - HYPERLIPIDEMIA, UNSPECIFIED (9) Pulmonary HTN Code(s): I27.2 - OTHER SECONDARY PULMONARY HYPERTENSION * DO NOT USE * (10) BPH (benign prostatic hyperplasia) Code(s): N40.0 - BENIGN PROSTATIC HYPERPLASIA WITHOUT LOWER URINRY TRACT SYMP (11) Morbid obesity Code(s): E66.01 - MORBID (SEVERE) OBESITY DUE TO EXCESS CALORIES
[2019-03-09] MEDS ORDERED: INSULIN (NOVOLOG) ASPART 100 UNITS/ML 10ML VIAL ONE (21:47)
[2019-03-09] MEDS: ATORVASTATIN CA 40 MG TABLET (FP) PO SCH (21:53)
[2019-03-10] MEDS: INSULIN SLIDING SCALE (NOVOLOG) 1 VIAL SQ SCH ×2 (06:17→11:44)
[2019-03-10] MEDS ORDERED: INSULIN (NOVOLOG) ASPART 100 UNITS/ML 10ML VIAL ONE ×2 (06:22→11:23)
[2019-03-10] MEDS: ACETAMINOPHEN 325 MG TABLET (FP) PO PRN (08:50)
[2019-03-10] MEDS: TAMSULOSIN HCL 0.4 MG CAP PO SCH (08:50)
--- NOTE | 2019-03-10 09:38 | PN ---
Progress Note (short form) - Note Progress Note: Pt seen and examined. He states his right wrist is doing better, less pain, better ROM. He has found it difficult to keep it elevated. PE Right wrist still moderately swollen. He needs to keep it better elevated more of the day Definitely better ROM at the right wrist, fingers, thumb, with a lot less pain. Rec Better elevation ROM exercises, he can probably do it on his own F/u with us as an out patient PRN
[2019-03-10] MEDS ORDERED: PT OWN MED DRAWER 7, Y5N ONE (09:56)
[2019-03-10] MEDS: SACUBITRIL/VALSARTAN 24 MG-26 MG TABLET PO SCH (10:00)
[2019-03-10] MEDS: ISOSORBIDE MONONITRATE 30 MG TAB.SR.24H (FP) PO SCH (10:00)
[2019-03-10] MEDS: DIGOXIN 0.125 MG TABLET (FP) PO SCH (10:00)
[2019-03-10] MEDS: ESCITALOPRAM OXALATE 10 MG TABLET (FP) PO SCH (10:01)
[2019-03-10] MEDS: ASPIRIN COATED 81 MG TABLET.EC PO SCH (10:01)
[2019-03-10] MEDS: amLODIPine BESYLATE 5 MG TABLET (FP) PO SCH (10:01)
[2019-03-10] MEDS: POTASSIUM CHLORIDE TABS 20 MEQ TABLET.ER (FP) PO SCH (10:01)
[2019-03-10] MEDS: metoPROLOL SUCCINATE 25 MG TAB.SR.24H (FP) PO SCH (10:01)
[2019-03-10] MEDS: APIXABAN 5 MG TABLET PO SCH (10:01)
[2019-03-10] MEDS: FUROSEMIDE 40 MG TABLET (FP) PO SCH (10:01)
[2019-03-10] MEDS: BUDESONIDE/FORMETEROL FUMARATE 160/4.5 mcg INHALER IH SCH (10:57)
[2019-03-10] MEDS ORDERED: traMADol HCL 50 MG TABLET PO ONE (11:15)
--- NOTE | 2019-03-10 13:39 | PN ---
Progress Note, Physician History of Present Illness: pulmonary alert,feeling better,comfortable,-sob - Current Medication List Current Medications: Active Medications Acetaminophen (Tylenol -) 650 mg PO Q6H PRN PRN Reason: FEVER Last Admin: 03/10/19 08:50 Dose: 650 mg Amlodipine Besylate (Norvasc -) 5 mg PO DAILY [facility] Last Admin: 03/10/19 10:01 Dose: 5 mg Apixaban (Eliquis -) 5 mg PO BID [facility] Last Admin: 03/10/19 10:01 Dose: 5 mg Aspirin (Ecotrin -) 81 mg PO DAILY [facility] Last Admin: 03/10/19 10:01 Dose: 81 mg Atorvastatin Calcium (Lipitor -) 40 mg PO HS [facility] Last Admin: 03/09/19 21:53 Dose: 40 mg Budesonide/Formoterol Fumarate (Symbicort 160/4.5mcg -) 2 puff IH BID [facility] Last Admin: 03/10/19 10:57 Dose: 2 puff Digoxin (Lanoxin -) 0.125 mg PO DAILY [facility] Last Admin: 03/10/19 10:00 Dose: 0.125 mg Escitalopram Oxalate (Lexapro -) 10 mg PO DAILY [facility] Last Admin: 03/10/19 10:01 Dose: 10 mg Furosemide (Lasix -) 80 mg PO DAILY [facility] Last Admin: 03/10/19 10:01 Dose: 80 mg Insulin Aspart (Novolog Vial Sliding Scale -) 1 vial SQ [facility]; Protocol Last Admin: 03/10/19 11:44 Dose: 4 units Isosorbide Mononitrate (Imdur -) 60 mg PO DAILY [facility] Last Admin: 03/10/19 10:00 Dose: 60 mg Metolazone (Zaroxolyn -) 2.5 mg PO MoWeFr@0930 [facility] Metoprolol Succinate (Toprol Xl -) 75 mg PO DAILY [facility] Last Admin: 03/10/19 10:01 Dose: 75 mg Potassium Chloride (K-Dur -) 40 meq PO DAILY [facility] Last Admin: 03/10/19 10:01 Dose: 40 meq Sacubitril/Valsartan (Entresto 24 Mg-26 Mg Tablet) 1 tab PO BID [facility] Last Admin: 03/10/19 10:00 Dose: 1 tab Tamsulosin HCl (Flomax -) 0.4 mg PO DAILY@0830 [facility] Last Admin: 03/10/19 08:50 Dose: 0.4 mg - Objective Vital Signs: Vital Signs Temperature 98.5 F 03/10/19 09:41 Pulse Rate 87 03/10/19 10:00 Respiratory Rate 24 H 03/10/19 09:41 Blood Pressure 134/54 L 03/10/19 09:41 O2 Sat by Pulse Oximetry (%) 98 03/10/19 08:34 Constitutional: Yes: Well Nourished, Calm Eyes: Yes: WNL HENT: Yes: WNL Neck: Yes: WNL Cardiovascular: Yes: Regular Rate and Rhythm, Pulse Irregular, S1, S2 Respiratory: Yes: Diminished Gastrointestinal: Yes: Normal Bowel Sounds, Soft Extremities: Yes: WNL Edema: Yes Labs: CBC, BMP 03/09/19 06:00 Laboratory Tests 03/09/19 14:14 ABG pH 7.40 ABG pCO2 at Pt Temp 59.1 H ABG pO2 at Pt Temp 93.6 ABG HCO3 35.9 H ABG O2 Sat (Measured) 97.5 O2 Delivery Device Nasal Oxygen Flow Rate 3 Assessment/Plan Problem List - Problems (1) Fall Code(s): W19.XXXA - UNSPECIFIED FALL, INITIAL ENCOUNTER (2) Acute respiratory failure with hypoxia and hypercapnia Code(s): J96.01 - ACUTE RESPIRATORY FAILURE WITH HYPOXIA; J96.02 - ACUTE RESPIRATORY FAILURE WITH HYPERCAPNIA (3) Elevated troponin Code(s): R74.8 - ABNORMAL LEVELS OF OTHER SERUM ENZYMES (4) Abdominal bloating Code(s): R14.0 - ABDOMINAL DISTENSION (GASEOUS) (5) CHF (congestive heart failure) Code(s): I50.9 - HEART FAILURE, UNSPECIFIED Qualifiers: Heart failure type: systolic Heart failure chronicity: acute on chronic Qualified Code(s): I50.23 - Acute on chronic systolic (congestive) heart failure (6) Chronic hypoxemic respiratory failure Code(s): J96.11 - CHRONIC RESPIRATORY FAILURE WITH HYPOXIA (7) Diabetes Code(s): E11.9 - TYPE 2 DIABETES MELLITUS WITHOUT COMPLICATIONS Qualifiers: Diabetes mellitus type: type 2 Diabetes mellitus complication status: without complication (8) Morbid obesity Code(s): E66.01 - MORBID (SEVERE) OBESITY DUE TO EXCESS CALORIES (9) Pulmonary HTN Code(s): I27.2 - OTHER SECONDARY PULMONARY HYPERTENSION * DO NOT USE * Assessment/Plan S/P FALL CHRONIC HYPERCAPNEIC HYPOXEMIC RESPIRATORY FAILURE ON HOME 02 3-4 L/M [facility] PAF PLAN INHALED BRONCHODILATORS O2 SUPPLEMENTATION DIURETICS ENTRESTO DAILY WT NIPPV NEEDED TRANSFUSION AC DR CARPENTER
--- NOTE | 2019-03-10 15:28 | PN ---
Progress Note (short form) - Note Progress Note: s: stable edema, no sob, palps, chest pain Current Medications Acetaminophen (Tylenol -) 650 mg PO Q6H PRN PRN Reason: FEVER Last Admin: 03/10/19 08:50 Dose: 650 mg Amlodipine Besylate (Norvasc -) 5 mg PO DAILY [facility] Last Admin: 03/10/19 10:01 Dose: 5 mg Apixaban (Eliquis -) 5 mg PO BID [facility] Last Admin: 03/10/19 10:01 Dose: 5 mg Aspirin (Ecotrin -) 81 mg PO DAILY [facility] Last Admin: 03/10/19 10:01 Dose: 81 mg Atorvastatin Calcium (Lipitor -) 40 mg PO HS [facility] Last Admin: 03/09/19 21:53 Dose: 40 mg Budesonide/Formoterol Fumarate (Symbicort 160/4.5mcg -) 2 puff IH BID [facility] Last Admin: 03/10/19 10:57 Dose: 2 puff Digoxin (Lanoxin -) 0.125 mg PO DAILY [facility] Last Admin: 03/10/19 10:00 Dose: 0.125 mg Escitalopram Oxalate (Lexapro -) 10 mg PO DAILY [facility] Last Admin: 03/10/19 10:01 Dose: 10 mg Furosemide (Lasix -) 80 mg PO DAILY [facility] Last Admin: 03/10/19 10:01 Dose: 80 mg Insulin Aspart (Novolog Vial Sliding Scale -) 1 vial SQ [facility]; Protocol Last Admin: 03/10/19 11:44 Dose: 4 units Isosorbide Mononitrate (Imdur -) 60 mg PO DAILY [facility] Last Admin: 03/10/19 10:00 Dose: 60 mg Metolazone (Zaroxolyn -) 2.5 mg PO MoWeFr@0930 [facility] Metoprolol Succinate (Toprol Xl -) 75 mg PO DAILY [facility] Last Admin: 03/10/19 10:01 Dose: 75 mg Potassium Chloride (K-Dur -) 40 meq PO DAILY [facility] Last Admin: 03/10/19 10:01 Dose: 40 meq Sacubitril/Valsartan (Entresto 24 Mg-26 Mg Tablet) 1 tab PO BID [facility] Last Admin: 03/10/19 10:00 Dose: 1 tab Tamsulosin HCl (Flomax -) 0.4 mg PO DAILY@0830 [facility] Last Admin: 03/10/19 08:50 Dose: 0.4 mg - Objective Vital Signs: Vital Signs Period Temp Pulse Resp BP Sys/[place] Pulse Ox Last 24 Hr 97.9 F-98.5 F 82-98 20-24 134-147/54-86 96-98 Constitutional: Yes: No Distress Cardiovascular: Yes: Pulse Irregular Respiratory: Yes: CTA Bilaterally Gastrointestinal: Yes: Soft, Abdomen, Obese Edema: Yes Edema: LLE: 2+, RLE: 2+ Neurological: Yes: Alert, Oriented no jaundice not agitated Problem List - Problems (1) Elevated troponin Code(s): R74.8 - ABNORMAL LEVELS OF OTHER SERUM ENZYMES (2) Abdominal bloating Code(s): R14.0 - ABDOMINAL DISTENSION (GASEOUS) (3) Chronic combined systolic and diastolic CHF, NYHA class 4 Code(s): I50.42 - CHRONIC COMBINED SYSTOLIC AND DIASTOLIC HRT FAIL (4) Diabetes Code(s): E11.9 - TYPE 2 DIABETES MELLITUS WITHOUT COMPLICATIONS Qualifiers: Diabetes mellitus type: type 2 Diabetes mellitus complication status: without complication (5) Dyspnea Code(s): R06.00 - DYSPNEA, UNSPECIFIED Qualifiers: Dyspnea type: unspecified Qualified Code(s): R06.00 - Dyspnea, unspecified (6) Morbid obesity Code(s): E66.01 - MORBID (SEVERE) OBESITY DUE TO EXCESS CALORIES (7) PSVT (paroxysmal supraventricular tachycardia) Code(s): I47.1 - SUPRAVENTRICULAR TACHYCARDIA (8) Pulmonary HTN Code(s): I27.2 - OTHER SECONDARY PULMONARY HYPERTENSION * DO NOT USE * (9) Atrial fibrillation Code(s): I48.91 - UNSPECIFIED ATRIAL FIBRILLATION Assessment/Plan Assessment/Plan Echo: low-nl LVEF. RV dilated, TDS for fxn. mild MR/TR. RVSP 30-40 1. PSVT 2. H/o PAF 3. CAD s/p remote h/o coronary PCI 4. Chronic PHTN 5. Chronic combined diastolic/systolic CHF--stable 6. DM 7. Fall, probably mechanical 8. Elevated TnI 9. bilateral feet pain, R hand pain/swelling REC: 1. Elevated TnI (indeterminate range, flat trend) unlikely represents ACS; ECG not ischemic and no chest pain symptoms, normal CK Likely due to chronic combined systolic/diastolic CHF and chronic severe PHTN. 2. Echo - tds with EF 50%, unable to evaluate RV function though RV appears dilated--rec outpt cardio f/u and repeat echo ? with Definity contrast agent 3. Continue Eliquis (5mg dose) as [id number] score is elevated. 5. continue Zaroxolyn 2.5 mg TIW, lasix and follow renal function and lytes
[2019-03-10 15:37] VITALS: BP 117/63; PULSE 86; TEMP 98.6
[2019-03-11] MEDS ORDERED: METOLAZONE 2.5 MG TABLET (FP) PO SCH (09:30)
== END 2019-03-10 18:03 | DRG 291 ==
LOC: JER 05:14 → JERBED 02-25 01:25 → J4W 02-25 01:32 → J5S 03-05 11:41
PROVIDERS: ADMIT Internal Medicine; ATTEND Internal Medicine
PROC: 5A09357 Assistance with Respiratory Ventilation, Less than 24 Consecutive Hours, Continuous Positive Airway Pressure (ICD-10-PCS; principal; 2019-02-25)
PROC: 2W3AXYZ Immobilization of Right Upper Arm using Other Device (ICD-10-PCS; 2019-03-01)
PROC: 2W3EX1Z Immobilization of Right Hand using Splint (ICD-10-PCS; 2019-03-01)
DX: I11.0 Hypertensive heart disease with heart failure (principal); J96.02 Acute respiratory failure with hypercapnia; J96.01 Acute respiratory failure with hypoxia; I47.1 Supraventricular tachycardia; E87.2 Acidosis; I27.20 Pulmonary hypertension, unspecified; I50.43 Acute on chronic combined systolic (congestive) and diastolic (congestive) heart failure; J44.9 Chronic obstructive pulmonary disease, unspecified; I25.10 Atherosclerotic heart disease of native coronary artery without angina pectoris; R74.8 Abnormal levels of other serum enzymes; E11.9 Type 2 diabetes mellitus without complications; E83.42 Hypomagnesemia; E66.01 Morbid (severe) obesity due to excess calories; Z79.4 Long term (current) use of insulin; I42.9 Cardiomyopathy, unspecified; E78.5 Hyperlipidemia, unspecified; Z95.5 Presence of coronary angioplasty implant and graft; S19.89XA Other specified injuries of other specified part of neck, initial encounter; W06.XXXA Fall from bed, initial encounter; Y93.89 Activity, other specified; Y92.032 Bedroom in apartment as the place of occurrence of the external cause; Y99.8 Other external cause status; N62 Hypertrophy of breast; Z85.46 Personal history of malignant neoplasm of prostate; I95.9 Hypotension, unspecified; D53.9 Nutritional anemia, unspecified; N40.0 Benign prostatic hyperplasia without lower urinary tract symptoms; Z68.37 Body mass index [BMI] 37.0-37.9, adult; E66.9 Obesity, unspecified; I50.42 Chronic combined systolic (congestive) and diastolic (congestive) heart failure; I48.0 Paroxysmal atrial fibrillation
CPT/HCPCS: 36415; 36430; 36511; 36600; 70450-TC; 70486-TC; 71045-TC-FY; 72070-TC-FY; 72100-TC-FY; 72125-TC; 72170-TC-FY; 73030-TC-RT-FY; 73070-TC-RT-FY; 73110-TC-RT-FY; 73130-TC-RT-FY; 80048; 80053; 82550; 82553; 82803; 82962; 83735; 83880; 84484; 85025; 85610; 85730; 86850; 86900; 86901; 86922; 93005; 93010; 93306-TC; 94640; 94660; 97116-GP; 97161-GP; 99285-25; J0131; J1644; P9038; P9058

== ENCOUNTER 2019-06-23 11:34 | Inpatient (IN) | payer OTHER ==
--- NOTE | 2019-06-23 11:49 | PDOC ---
Attending Attestation - Resident Resident Name: Min Giordano - ED Attending Attestation I have performed the following: I have examined & evaluated the patient, The case was reviewed & discussed with the resident, I agree w/resident's findings & plan, Exceptions are as noted - HPI HPI: 06/23/19 12:07 Mr. Orozco is a 78 yo M who presents from the [facility] due to anemia He has a PMH of CAD, HTN, HLD, pulmonary HTN on 2L O2, CHF, prostate CA, ALY on BiPAP s/p fall with no resulting fracture but a lot of pain resulting in an admission to [facility]. Pt reports that he has noticed fatigue for the past month He feels like he falls asleep almost as soon as he sits down He denies chest pain He denies palpitations He denies rectal bleeding, or melena - Physicial Exam PE: 06/23/19 12:11 GENERAL: The patient is in no acute distress. EYES: Pale conjunctiva, EOMI, PERRLA ENT: Ears normal, nares patent, oropharynx clear without exudates. Moist mucous membranes. NECK: Normal range of motion, supple, no nuchal rigidity LUNGS: Breath sounds equal, clear to auscultation bilaterally. No wheezes, and no crackles. HEART:Regular rate and rhythm, normal S1 and S2 without murmur, rub or gallop. ABDOMEN: Soft, nontender, normoactive bowel sounds. EXTREMITIES: Pitting edema Left > right, Normal range of motion NEUROLOGICAL: Cranial nerves II through XII grossly intact. Normal speech. No focal neurological deficits. SKIN: Warm, Dry, normal turgor, no rashes or lesions noted. - Medical Decision Making 06/23/19 12:13 Pt sent to the ER for possible anemia DD: UGIB, LGIB, Anemia secondary to bone marrow pathology Will do: Labs, Stool for occult blood, Pre admission 06/23/19 13:19 EKG : Afib rate of 71 bpm, LAD, RBBB, no st elevation or depression 06/23/19 13:20 Laboratory Tests 06/23/19 12:20 Stool Occult Blood Negative Laboratory Tests 06/23/19 06/23/19 06/23/19 13:00 13:00 13:00 WBC 7.1 Hgb 7.4 L Hct 23.4 L Plt Count 296 D INR 2.02 H BUN 24.7 H Creatinine 0.8 Urine Ketones Urine Blood Urine Nitrite Ur Leukocyte Esterase 06/23/19 14:27 WBC Hgb Hct Plt Count INR BUN Creatinine Urine Ketones Negative Urine Blood Negative Urine Nitrite Negative Ur Leukocyte Esterase Negative Case reviewed with Dr Matos Pt will benefit from admission and transfusion (despite his Hgb chronically being near 7.4) Will admit to her service Clinical impression: Symptomatic anemia, initial presentation
[2019-06-23 12:06] VITALS: BMI 33.5
--- NOTE | 2019-06-23 12:49 | PDOC ---
History of Present Illness - General Chief Complaint: Abnormal Lab Results (Outside) Stated Complaint: LOW BLOOD COUNT Time Seen by Provider: 06/23/19 11:48 - History of Present Illness Initial Comments: The pt is a 78M w/ a history of T2DM, CHF, a-fib, anemia who presents from [facility] for evaluation of Hgb 6 per EMS. The pt only reports feeling more cold over the last 3 months. He denies fevers/chills, dizziness, vision changes, chest pain, palpitations, trouble breathing, abdominal pain, N/V/C/D, blood in her stool, or changes in sensation. He reports seeing Dr. Scott (?) for GI but doesn't recall the last time he went Last colonoscopy was [address] Elizabeth (but does not recall the results, but does not remember anything being wrong) 06/23/19 12:33 Past History - Past Medical History Allergies/Adverse Reactions: Allergies Allergy/AdvReac Type Severity Reaction Status Date / Time No Known Allergies Allergy Verified 06/23/19 11:50 Home Medications: Ambulatory Orders Alendronate Na [Fosamax (Weekly)] 70 mg PO WE 01/29/17 Atorvastatin Calcium 40 mg PO DAILY 01/29/17 Isosorbide Mononitrate [Imdur -] 60 mg PO DAILY 01/29/17 Sacubitril/Valsartan [Entresto 24 mg-26 mg Tablet] 1 tab PO BID 01/29/17 Aspirin Coated [Ecotrin -] 81 mg PO DAILY tablet.ec 11/05/17 Amlodipine Besylate 5 mg PO DAILY 05/04/18 Metoprolol Succinate 50 mg PO DAILY 05/04/18 Acetaminophen [Tylenol .Regular Strength -] 650 mg PO Q6H PRN tablet 03/07/19 Apixaban [Eliquis -] 5 mg PO BID tablet 03/07/19 Digoxin [Lanoxin -] 0.125 mg PO DAILY tablet 03/07/19 Furosemide [Lasix -] 80 mg PO DAILY tablet 03/07/19 Insulin Sliding Scale [Novolog Vial Sliding Scale -] 1 vial SQ ACHS units 03/07 Potassium Chloride [K-Dur -] 40 meq PO DAILY tablet.er 03/07/19 Docusate Sodium [Colace] 300 mg PO HS 06/23/19 Gabapentin 300 mg PO TID 06/23/19 Insulin Glargine,Hum.rec.anlog [Basaglar Annetteikpen U-100] 20 unit SQ DAILY Metolazone 2.5 mg PO ASDIR 06/23/19 Polyethylene Glycol 3350 [Miralax (For Daily Use) -] 17 gm PO DAILY 06/23/19 Tamsulosin HCl [Flomax] 0.4 mg PO DAILY 06/23/19 Cancer: Yes (prostate) Cardiac Disorders: Yes (cardiomyopathy,cad) COPD: Yes (3L) CHF: Yes Diabetes: Yes Disorders: Yes (prostate CA) HTN: Yes Hypercholesterolemia: Yes - Surgical History Cardiac Surgery: Yes (STENT PLACEMENT) - Immunization History Immunization Up to Date: No - Suicide/Smoking/Psychosocial Hx Smoking Status: No Smoking History: Unknown if ever smoked Have you smoked in the past 12 months: No Number of Cigarettes Smoked Daily: 0 Hx Alcohol Use: No Drug/Substance Use Hx: No Substance Use Type: None Hx Substance Use Treatment: No Review of Systems - Review of Systems Able to Perform ROS?: Yes Comments:: GENERAL/CONSTITUTIONAL: No fever or chills. No weakness HEAD, EYES, EARS, NOSE AND THROAT: No change in vision. No sore throat CARDIOVASCULAR: No chest pain or shortness of breath RESPIRATORY: Denies cough, hemoptysis GASTROINTESTINAL: No nausea, vomiting, diarrhea or constipation GENITOURINARY: No dysuria, frequency, or change in urination MUSCULOSKELETAL: Chronic left knee pain SKIN: No rash NEUROLOGIC: No headache, vertigo, loss of consciousness, or change in strength/ sensation ENDOCRINE: No increased thirst. No abnormal weight change HEMATOLOGIC/LYMPHATIC: +xarelto and chronic anemia ALLERGIC/IMMUNOLOGIC: No hives or skin allergy 06/23/19 12:49 Is the patient limited Portuguese proficient: No *Physical Exam - Vital Signs Last Vital Signs Temp Pulse Resp BP Pulse Ox 98.4 F 82 18 126/91 100 06/23/19 11:50 06/23/19 11:50 06/23/19 11:50 06/23/19 11:50 06/23/19 11:50 - Physical Exam Comments: GENERAL: Awake, alert, and oriented to person/place/time, in no acute distress HEAD: No signs of trauma, normocephalic, atraumatic EYES: PERRLA, EOMI, sclera anicteric, conjunctiva clear ENT: Hearing grossly normal, nares patent, oropharynx clear without exudates. Moist mucosa LUNGS: No distress, speaks in full sentences, clear to auscultation bilaterally HEART: Irregularly irregular rhythm, regular rate, normal S1 and S2, no murmurs appreciated, peripheral pulses normal and equal bilaterally ABDOMEN: Soft, nontender, normoactive bowel sounds. No guarding, no rebound EXTREMITIES: Normal inspection, Normal range of motion, no edema. No clubbing or cyanosis NEUROLOGICAL: Cranial nerves II through XII grossly intact. Normal speech, no focal sensorimotor deficits SKIN: Warm, Dry 06/23/19 12:50 ED Treatment Course - LABORATORY CBC & Chemistry Diagram: 06/23/19 13:00 06/23/19 13:00 Medical Decision Making - Medical Decision Making The pt is a 78M w/ a history of HTN, CHF, a-fib (xarelto), and anemia who presents for evaluation of reportedly low Hgb ED Course CMP, CBC, T/S FOBT CXR ECG 06/23/19 12:51 FOBT neg 06/23/19 12:53 Hgb 7.4, has had similar findings before Plan for transfusion and admission Paged placed to Dr. Matos's service 06/23/19 14:33 Pt signed out to Dr. Matos 2u pRBC ordered Consent obtained Dispo: admit 06/23/19 15:22 *DC/Admit/Observation/Transfer Diagnosis at time of Disposition: CHF (congestive heart failure) Qualifiers: Heart failure type: unspecified Heart failure chronicity: chronic Qualified Code(s): I50.9 - Heart failure, unspecified Diabetes Qualifiers: Diabetes mellitus type: other specified (including TAN) Diabetes mellitus jail insulin use: unspecified jail insulin use status Diabetes mellitus complication status: with other specified complication Qualified Code(s ): E13.69 - Other specified diabetes mellitus with other specified complication Hypertension Qualifiers: Hypertension type: unspecified Qualified Code(s): I10 - Essential (primary) hypertension - Discharge Dispostion Condition at time of disposition: Good Decision to Admit order: Yes - Referrals Referrals: Jaz Mendieta MD [Primary Care Provider] - - Patient Instructions - Post Discharge Activity
[2019-06-23 13:17] LABS: BASO % 0.9 % (0-2.0); EOS % 3.9 % (0-4.5); HEMATOCRIT 23.4 % (35.4-49); HEMOGLOBIN 7.4 GM/dL (11.7-16.9); LYMPH % 10.6 % (8-40); MCH 29.6 pg (25.7-33.7); MCHC 31.7 g/dl (32.0-35.9); MEAN CELL VOLUME 93.4 fl (80-96); MEAN PLT VOLUME 7.7 fl (7.5-11.1); NEUT % 78.6 % (42.8-82.8); PLATELET COUNT 296 K/MM3 (134-434); RDW 16.3 % (11.9-15.9); WHITE BLOOD COUNT 7.1 K/mm3 (4.0-10.0)
[2019-06-23 13:31] LABS: INR 2.02 (0.83-1.09)
[2019-06-23 13:44] LABS: BILIRUBIN,TOTAL 0.4 mg/dL (0.2-1); BLOOD UREA NITROGEN 24.7 mg/dL (7-18); CALCIUM 9.5 mg/dL (8.5-10.1); CREATININE 0.8 mg/dL (0.55-1.3); POTASSIUM 4.1 mmol/L (3.5-5.1); TOT PROT 6.6 g/dl (6.4-8.2)
[2019-06-23 14:47] LABS: PH,URINE 7.5 (5.0-8.0); URINE APPEARANCE CLEAR; URINE BILIRUBIN NEGATIVE (NEGATIVE); URINE COLOR YELLOW; URINE GLUCOSE (UA) NEGATIVE (NEGATIVE); URINE KETONE NEGATIVE (NEGATIVE); URINE LEUK ESTERASE NEGATIVE (NEGATIVE); URINE NITRITE NEGATIVE (NEGATIVE); URINE PROTEIN NEGATIVE (NEGATIVE); URINE UROBILINOGEN 0.2 mg/dL (0.2-1.0)
[2019-06-23] MEDS ORDERED: METOLAZONE 2.5 MG TABLET (FP) PO SCH (23:45)
[2019-06-24] MEDS: APIXABAN 5 MG TABLET PO SCH ×3 (01:39→21:47)
[2019-06-24] MEDS: ACETAMINOPHEN 325 MG TABLET (FP) PO PRN (01:39)
[2019-06-24] MEDS: INSULIN SLIDING SCALE (NOVOLOG) 1 VIAL SQ SCH ×4 (06:34→21:47)
[2019-06-24] MEDS: INSULIN (LEVEMIR) 100 UNITS/ML UNITS SQ SCH (06:34)
[2019-06-24] MEDS: GABAPENTIN 300 MG CAPSULE (FP) PO SCH ×3 (06:34→21:47)
[2019-06-24 08:12] LABS: BASO % 0.7 % (0-2.0); EOS % 3.9 % (0-4.5); HEMOGLOBIN 9.2 GM/dL (11.7-16.9); LYMPH % 13.5 % (8-40); MCH 30.3 pg (25.7-33.7); MCHC 32.9 g/dl (32.0-35.9); MEAN CELL VOLUME 92.1 fl (80-96); MEAN PLT VOLUME 7.8 fl (7.5-11.1); MONO % 5.9 % (3.8-10.2); PLATELET COUNT 302 K/MM3 (134-434); RBC 3.04 M/mm3 (4.00-5.60); RDW 15.6 % (11.9-15.9); WHITE BLOOD COUNT 7.7 K/mm3 (4.0-10.0)
[2019-06-24 08:39] LABS: ALBUMIN 2.9 g/dl (3.4-5.0); BILIRUBIN,TOTAL 0.8 mg/dL (0.2-1); BLOOD UREA NITROGEN 24.2 mg/dL (7-18); CALCIUM 9.5 mg/dL (8.5-10.1); CREATININE 0.8 mg/dL (0.55-1.3); POTASSIUM 3.9 mmol/L (3.5-5.1); TOT PROT 6.4 g/dl (6.4-8.2)
--- NOTE | 2019-06-24 09:28 | CON.CARD ---
Consult Consult Specialty:: cardiology Reason for Consultation:: hx CHF, PSVT, ?PAF; SOB - History of Present Illness History of Present Illness: Mr. Orozco is a 78 yo M who presents from the [facility] due to anemia He has a PMH of CAD, HTN, HLD, pulmonary HTN on 2L O2, CHF, prostate CA, ALY on BiPAP s/p fall with no resulting fracture but a lot of pain resulting in an admission to [facility]. Pt reports that he has noticed fatigue for the past month He feels like he falls asleep almost as soon as he sits down He denies chest pain He denies palpitations He denies rectal bleeding, or melena - History Source History Provided By: Patient, Medical Record - Past Medical History Cardio/Vascular: Yes: CAD, CHF (low normal LVEF on 02/25 ECHO), HTN, Hyperlipdemia, Pulmonary Hypertension Pulmonary: Yes: COPD, O2 Dependent, Other (pulmonary htn) Renal/: Yes: BPH Endocrine: Yes: Diabetes Mellitus - Past Surgical History Past Surgical History: Yes: Stent - Alcohol/Substance Use Hx Alcohol Use: No - Smoking History Smoking history: Unknown if ever smoked Have you smoked in the past 12 months: No Aproximately how many cigarettes per day: 0 - Social History Usual Living Arrangement: With Spouse ADL: Independent History of Recent Travel: No Home Medications - Allergies Allergies/Adverse Reactions: Allergies Allergy/AdvReac Type Severity Reaction Status Date / Time No Known Allergies Allergy Verified 06/23/19 11:50 - Home Medications Home Medications: Ambulatory Orders Alendronate Na [Fosamax (Weekly)] 70 mg PO WEEKLY 01/29/17 Atorvastatin Calcium 40 mg PO DAILY 01/29/17 Isosorbide Mononitrate [Imdur -] 60 mg PO DAILY 01/29/17 Sacubitril/Valsartan [Entresto 24 mg-26 mg Tablet] 1 tab PO BID 01/29/17 Aspirin Coated [Ecotrin -] 81 mg PO DAILY tablet.ec 11/05/17 Amlodipine Besylate 5 mg PO DAILY 05/04/18 Metoprolol Succinate 50 mg PO DAILY 05/04/18 Acetaminophen [Tylenol .Regular Strength -] 650 mg PO Q6H PRN tablet 03/07/19 Apixaban [Eliquis -] 5 mg PO BID tablet 03/07/19 Digoxin [Lanoxin -] 0.125 mg PO DAILY tablet 03/07/19 Furosemide [Lasix -] 80 mg PO DAILY tablet 03/07/19 Insulin Sliding Scale [Novolog Vial Sliding Scale -] 1 vial SQ ACHS units 03/07 Potassium Chloride [K-Dur -] 40 meq PO DAILY tablet.er 03/07/19 Docusate Sodium [Colace] 300 mg PO HS 06/23/19 Dulcolax 10 mg NC DAILY PRN 06/23/19 Gabapentin 300 mg PO TID 06/23/19 Insulin Glargine,Hum.rec.anlog [Basaglar Kwikpen U-100] 20 unit SQ DAILY Iprat-Albut 0.5-3(2.5) mg/3 ml 3 ml NEB QID 06/23/19 Metolazone 2.5 mg PO ASDIR 06/23/19 Milk of Magnesia 5 5ml PO DAILY PRN 06/23/19 Oxycodone-Acetaminophen 10-325 10 mg PO Q8H PRN 06/23/19 Polyethylene Glycol 3350 [Miralax (For Daily Use) -] 17 gm PO DAILY 06/23/19 Tamsulosin HCl [Flomax] 0.4 mg PO DAILY 06/23/19 Zinc Oxide 20% Topical Oint 1 appful DAILY PRN 06/23/19 Vital Signs: Vital Signs Temperature 97.8 F 06/24/19 07:40 Pulse Rate 77 06/24/19 07:40 Respiratory Rate 15 06/24/19 07:40 Blood Pressure 117/70 06/24/19 07:40 O2 Sat by Pulse Oximetry (%) 100 06/23/19 21:00 - Other Data Labs, Other Data: CBC, BMP 06/24/19 07:05 06/24/19 07:05 INR, PTT INR 2.02 (0.83-1.09) H 06/23/19 13:00
[2019-06-24] MEDS ORDERED: FUROSEMIDE 40 MG TABLET (FP) PO SCH (10:00)
[2019-06-24] MEDS ORDERED: FUROSEMIDE 100 MG/10 ML INJECTABLE VIAL IVPB SCH (10:00)
[2019-06-24] MEDS ORDERED: DIGOXIN 0.125 MG TABLET (FP) PO SCH (10:00)
[2019-06-24] MEDS ORDERED: PATIENT'S OWN MEDICATION (NON-FORMULARY) (Insulin Glargine,Hum.Rec.Anlog [Basaglar Kwikpen SQ SCH (10:00)
[2019-06-24] MEDS ORDERED: PT OWN MED DRAWER 7, Y5N ONE ×3 (10:05→21:19)
[2019-06-24] MEDS: ASPIRIN COATED 81 MG TABLET.EC PO SCH (10:11)
[2019-06-24] MEDS: SACUBITRIL/VALSARTAN 24 MG-26 MG TABLET PO SCH ×2 (10:12→21:47)
[2019-06-24] MEDS: amLODIPine BESYLATE 5 MG TABLET (FP) PO SCH (10:12)
[2019-06-24] MEDS: POLYETHYLENE GLYCOL 3350 119 GM BTL PO SCH (10:12)
[2019-06-24] MEDS: ISOSORBIDE MONONITRATE 60 MG TAB.SR.24H (FP) PO SCH (10:12)
[2019-06-24] MEDS ORDERED: FUROSEMIDE 40 MG/4 ML INJECTABLE VIAL IVPUSH ONE (10:53)
[2019-06-24] MEDS: POTASSIUM CHLORIDE TABS 20 MEQ TABLET.ER (FP) PO SCH (11:10)
--- NOTE | 2019-06-24 11:33 | EKG ---
Test Reason : Blood Pressure : / mmHG Vent. Rate : 086 BPM Atrial Rate : 127 BPM P-R Int : 000 ms QRS Dur : 160 ms QT Int : 398 ms P-R-T Axes : 000 241 004 degrees QTc Int : 476 ms ATRIAL FIBRILLATION RIGHT BUNDLE BRANCH BLOCK ABNORMAL ECG WHEN COMPARED WITH ECG OF 23-JUN-2019 12:29, QUESTIONABLE CHANGE IN INITIAL FORCES OF SEPTAL LEADS Confirmed by DINORA LUIS MD ([id number]) on 06/24/2019 11:33:07 AM Referred By: CARMEL OLIVEIRA Confirmed By:DINORA LUIS MD
[2019-06-24 11:36] LABS: MAGNESIUM 1.8 mg/dL (1.8-2.4)
--- NOTE | 2019-06-24 11:49 | EKG ---
Test Reason : Blood Pressure : / mmHG Vent. Rate : 071 BPM Atrial Rate : 062 BPM P-R Int : 000 ms QRS Dur : 162 ms QT Int : 408 ms P-R-T Axes : 000 -80 029 degrees QTc Int : 443 ms ATRIAL FIBRILLATION LEFT AXIS DEVIATION RIGHT BUNDLE BRANCH BLOCK ABNORMAL ECG Confirmed by DINORA LUIS MD ([id number]) on 06/24/2019 11:49:22 AM Referred By: Confirmed By:DINORA LUIS MD
--- NOTE | 2019-06-24 12:25 | ECHO ---
Name: KAYLEEN CORBETT Exam:Adult Echocardiogram Study Date: 06/24/2019 11:16 AM Age: 78 yrs Reason For Study: CHF Height: 70 in Weight: 234 lb BSA: 2.2 m2 MMode/2D Measurements & Calculations IVSd: 1.2 cm Ao root diam: 3.0 cm LVIDd: 5.8 cm LA dimension: 3.2 cm LVIDs: 3.5 cm LVPWd: 0.92 cm EDV(Teich): 164.3 ml LVOT diam: 2.1 cm ESV(Teich): 52.4 ml Doppler Measurements & Calculations MV E max ryan: 41.0 cm/sec Ao V2 max: 184.6 cm/sec MV A max ryan: 61.7 cm/sec Ao max P.6 mmHg MV E/A: 0.66 Ao V2 mean: 116.9 cm/sec MV dec time: 0.29 sec Ao mean P.3 mmHg Ao V2 VTI: 29.6 cm VIKKI(I,D): 1.9 cm2 AI P1/2t: 679.2 msec VIKKI(V,D): 1.5 cm2 AI max ryan: 316.2 cm/sec LV V1 max P.8 mmHg AI max P.1 mmHg LV V1 mean P.4 mmHg AI dec slope: 136.4 cm/sec2 LV V1 max: 84.3 cm/sec LV V1 mean: 52.7 cm/sec LV V1 VTI: 16.7 cm MR max ryan: 512.1 cm/sec SV(LVOT): 55.4 ml MR max P.1 mmHg TR max ryan: 252.2 cm/sec Med Peak E' Ryan: 6.4 cm/sec TR max P.7 mmHg Med E/e': 6.4 Lat Peak E' Ryan: 6.2 cm/sec Lat E/e': 6.6 Left Ventricle The left ventricle is mildly dilated. Left ventricular systolic function is mildly reduced. Ejection Fraction = 45-50%. The transmitral spectral Doppler flow pattern is suggestive of impaired LV relaxation. Sept al motion is consistent with conduction abnormality. Right Ventricle The right ventricle is mildly dilated. The right ventricular systolic function is borderline reduced. Atria The left atrium is mildly dilated. The right atrium is mildly dilated. Mitral Valve The mitral valve is normal in structure and function. There is no mitral valve stenosis. There is mod erate mitral regurgitation. Tricuspid Valve The tricuspid valve is not well visualized, but is grossly normal. There is moderate tricuspid regurg itation. Right ventricular systolic pressure is elevated at 40-50mmHg. Aortic Valve The aortic valve opens well. No hemodynamically significant valvular aortic stenosis. Mild aortic regurgitation. Pulmonic Valve The pulmonic valve is not well seen, but is grossly normal. There is no pulmonic valvular stenosis. T race to mild pulmonic valvular regurgitation. Great Vessels The aortic root is normal size. Pericardium/Pleura There is no pericardial effusion. Interpretation Summary Septal motion is consistent with conduction abnormality. The left atrium is mildly dilated. The left ventricle is mildly dilated. There is moderate tricuspid regurgitation. Left ventricular systolic function is mildly reduced. Ejection Fraction = 45-50%. The right ventricle is mildly dilated. There is moderate mitral regurgitation. Mild aortic regurgitation. Right ventricular systolic pressure is elevated at 40-50mmHg. MD Cantu *Valdo 06/24/2019 12:25 PM
--- NOTE | 2019-06-24 17:47 | PN ---
Progress Note (short form) - Note Progress Note: Consult dictated 78 year old presents with anemia. Review of past records reveals that from 10/2017 thru 03/2019, patient had macrocytosis . Anemia has deveoped some time between 2018 when Hct- 35% and recent labs with Hct low 20"s. Recent CBC - nc/nc. Patient has already received 2 units of packed cells . Multiple co-morbid medical problems: ASHD/CAD/S/P stents- on ASA and eliquis Pulmonary hypertension ALY Prostate ca -receiving hormonal injections monthly Cirrhosis- past heavy ETOH abuse Paget's HBP HPL DM Left knee effusion S/P fall from bed In view of past macrocytosis-- to exclude megaloblastosis and will need to do flow cytometry Will need to evaluate stool guaics as Fe++ studies will be obscured by transfusion therapy In view of reverse albumin /globulin ratio -- for protein studies.
--- NOTE | 2019-06-24 18:14 | CON.GI ---
Consult Consult Specialty:: GI: For Dr. Elizabeth who resumes care 06/27 Referred by:: Dr. Matos Reason for Consultation:: Anemia - History of Present Illness Chief Complaint: "I feel weak" History of Present Illness: 78M admitted through [facility] for evaluation of Anemia. He apparently has a chronic macrocytic anemia. Patient states feeling weak. He denies any bowel complaints. he states having had EGD/Colonoscopy with Dr. Elizabeth about 7 years ago and that they were "OK". He denies rectal bleeding, unintentional weight loss, early satiety, melena. He received 2 U PRBC. There is no family history of colon cancer or other GI malignancy. - History Source History Provided By: Patient - Past Medical History Cardio/Vascular: Yes: AFIB, CAD, CHF (low normal LVEF on 02/25 ECHO), HTN, Hyperlipdemia, Pulmonary Hypertension Pulmonary: Yes: COPD, O2 Dependent, Other (pulmonary htn) Renal/: Yes: BPH Heme/Onc: Yes: Anemia Endocrine: Yes: Diabetes Mellitus - Past Surgical History Past Surgical History: Yes: Stent - Alcohol/Substance Use Hx Alcohol Use: Yes History of Substance Use: reports: None - Smoking History Smoking history: Never smoked Have you smoked in the past 12 months: No Aproximately how many cigarettes per day: 0 - Social History Usual Living Arrangement: With Spouse ADL: Independent Place of : Other ([place]) Came to [place] (year): 1969 History of Recent Travel: No Home Medications - Allergies Allergies/Adverse Reactions: Allergies Allergy/AdvReac Type Severity Reaction Status Date / Time No Known Allergies Allergy Verified 06/23/19 11:50 - Home Medications Home Medications: Ambulatory Orders Alendronate Na [Fosamax (Weekly)] 70 mg PO WEEKLY 01/29/17 Atorvastatin Calcium 40 mg PO DAILY 01/29/17 Isosorbide Mononitrate [Imdur -] 60 mg PO DAILY 01/29/17 Sacubitril/Valsartan [Entresto 24 mg-26 mg Tablet] 1 tab PO BID 01/29/17 Aspirin Coated [Ecotrin -] 81 mg PO DAILY tablet.ec 11/05/17 Amlodipine Besylate 5 mg PO DAILY 05/04/18 Metoprolol Succinate 50 mg PO DAILY 05/04/18 Acetaminophen [Tylenol .Regular Strength -] 650 mg PO Q6H PRN tablet 03/07/19 Apixaban [Eliquis -] 5 mg PO BID tablet 03/07/19 Digoxin [Lanoxin -] 0.125 mg PO DAILY tablet 03/07/19 Furosemide [Lasix -] 80 mg PO DAILY tablet 03/07/19 Insulin Sliding Scale [Novolog Vial Sliding Scale -] 1 vial SQ ACHS units 03/07 Potassium Chloride [K-Dur -] 40 meq PO DAILY tablet.er 03/07/19 Docusate Sodium [Colace] 300 mg PO HS 06/23/19 Dulcolax 10 mg MO DAILY PRN 06/23/19 Gabapentin 300 mg PO TID 06/23/19 Insulin Glargine,Hum.rec.anlog [Basaglar Kwikpen U-100] 20 unit SQ DAILY Iprat-Albut 0.5-3(2.5) mg/3 ml 3 ml NEB QID 06/23/19 Metolazone 2.5 mg PO ASDIR 06/23/19 Milk of Magnesia 5 5ml PO DAILY PRN 06/23/19 Oxycodone-Acetaminophen 10-325 10 mg PO Q8H PRN 06/23/19 Polyethylene Glycol 3350 [Miralax (For Daily Use) -] 17 gm PO DAILY 06/23/19 Tamsulosin HCl [Flomax] 0.4 mg PO DAILY 06/23/19 Zinc Oxide 20% Topical Oint 1 appful DAILY PRN 06/23/19 Family Disease History - Family Disease History Family Disease History: Other: Father (: did not know his medical history), Mother (: age 71: uncertain cause), Son (4, healthy), Daughter (2, healthy) Other Family History: No family history of colorectal cancer, anemia, other GI malignancy Review of Systems - Review of Systems Constitutional: denies: Fever, Unintentional Wgt. Loss Cardiovascular: denies: Chest Pain Respiratory: reports: SOB (Chronic) Gastrointestinal: denies: Abdominal Pain, Diarrhea, Melena, Nausea, Rectal Bleeding Musculoskeletal: reports: Joint Pain, Joint Swelling Physical Exam-GI Vital Signs: Vital Signs Temperature 97.8 F 06/24/19 07:40 Pulse Rate 77 06/24/19 07:40 Respiratory Rate 15 06/24/19 07:40 Blood Pressure 117/70 06/24/19 07:40 O2 Sat by Pulse Oximetry (%) 100 06/24/19 09:00 Constitutional: Yes: Calm Eyes: No: Sclera Icterus Cardiovascular: Yes: Pulse Irregular, Other Respiratory: Yes: Diminished (at bases bilaterally) Gastrointestinal Inspection: No: Distention, Scars ...Auscultate: Yes: Normoactive Bowel Sounds ...Palpate: Yes: Soft. No: Hepatomegaly, Splenomegaly, Tenderness ...Percussion: No: Tympanitic ...Rectal Exam: Yes: Other (No external lesions, no masses, light jo stool in rectal vault. guaiac negative 2+ prostate) Breast(s): Yes: Gynecomastia Extremities: Yes: Other (left knee edema) Edema: Yes Neurological: Yes: Alert Labs: CBC, BMP 06/24/19 07:05 06/24/19 07:05 INR, PTT INR 2.02 (0.83-1.09) H 06/23/19 13:00 Hepatic Panel Total Bilirubin 0.8 mg/dL (0.2-1) 06/24/19 07:05 AST 13 U/L (15-37) L 06/24/19 07:05 ALT 11 U/L (13-61) L 06/24/19 07:05 Alkaline Phosphatase 149 U/L (45-117) H 06/24/19 07:05 Albumin 2.9 g/dl (3.4-5.0) L 06/24/19 07:05 Problem List - Problems (1) Anemia Assessment/Plan: Guaiac negative on exam without forcal GI complaints. Heme work-up in progress. Dr. Elizabeth to review previous records and reassess for timing of repeat EGD / colonoscopy Ordered abdominal US for evaluation of elevated ALP. GGT ordered by Dr. Garcia. Code(s): D64.9 - ANEMIA, UNSPECIFIED
--- NOTE | 2019-06-24 18:24 | CONS ---
DATE OF CONSULTATION: DATE OF DICTATION: 06/24/2019 HISTORY OF PRESENT ILLNESS: This is a 78-year-old who presents with anemia. The patient is a former nonsmoker, heavy drinker, admitting to 6 to 8 beers per week as well as an equal number of rums per week for many, many years. 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 He is , states he has 6 children, although he has to think about this. FAMILY HISTORY: The patient is unable to provide any significant family history. PAST MEDICAL HISTORY: Includes hypertension, hyperlipidemia, pulmonary hypertension, coronary artery disease with stents. The patient says he does not have prostate cancer, although has had injections monthly and has gynecomastia typical of prostate cancer. Patient is on oxygen periodically at home. Patient has obstructive sleep apnea. The patient fell, sustaining pains presented to ER and was found to be profoundly anemic. The patient has received 2 units of packed cells. PAST MEDICAL HISTORY: As aforementioned, ASHD, coronary artery disease status post stents, CHF, hypertension, hyperlipidemia, pulmonary hypertension, prostate cancer, sugar diabetes. PAST SURGICAL HISTORY: Includes stents. Alcohol abuse excessive in the past. Smoking history denies. Illicit drugs denies. 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 SOCIAL HISTORY: Patient lives with his . ALLERGIES: No known allergies. MEDICATION: Home medications include Fosamax. Atorvastatin. Isosorbide. Entresto. Aspirin. Amlodipine. Metoprolol. Tylenol. Eliquis. Digoxin. Lasix. Insulin. Potassium. Dulcolax and Colace. Gabapentin. Albuterol. Metolazone. Percocet. Miralax. Flomax. REVIEW OF SYSTEMS: Patient denies headaches, diplopia, epistaxis, dysphagia. Denies chest pain. Has shortness of breath. Denies nausea, vomiting. Denies diarrhea , constipation. Has nocturia. No dysuria. Does have significant left knee pain. Has a left knee effusion. Has trauma status post fall. CURRENT PHYSICAL EXAMINATION: VITAL SIGNS: Blood pressure 117/70, pulse 77, respirations 15, afebrile. HEENT: JAE, EOM intact. Oropharynx decreased papillation of the tongue. LUNGS: Relatively clear. CARDIAC: RSR. BREAST: Bilateral gynecomastia. ABDOMEN: Soft abdomen, no organomegaly. GENITOURINARY: Testes atrophic, descended, circumcised male. EXTREMITIES: Left knee effusion. LABORATORY: WBC 7.7, hematocrit 23.4, currently 28, status post 2 units. MCV 93 and 92, but previously from 2016 until March of this year, 2018, patient had a persistent macrocytosis. Differential relatively normal. Chemistries: 141 sodium, potassium 3.9, chloride 100, CO2 of 36, BUN 5, creatinine 0.8, A1c 6.4, calcium 9.5, magnesium 1.8, bilirubin 0.8, AST 13, ALT 11, alkaline phosphatase 149, protein 6.4, albumin 2.9, triglycerides 90, cholesterol , HDL 37, TSH 1.89. Chest x-ray reviewed, elevation of left hemidiaphragm. Old CT reviewed, cirrhosis with fatty liver on abdominal CT, dilated pulmonary vessels compatible with pulmonary hypertension. Abdominal pelvic x-rays compatible with Paget's disease. IMPRESSION: Multiple comorbid medical problems. Anemia previously macrocytic dating back from October 2017 until March 2019, currently normocytic, normochromic. Patient has received 2 units of packed cells such that iron studies will be difficult to interpret. In view of macrocytosis previously, usual megaloblastic evaluation as well as potential evaluation for myelodysplasia to be performed. ADDITIONAL PROBLEMS: 1. Prostate cancer. 2. Arteriosclerotic heart disease. Coronary artery disease. 3. Status post stents. 4. Hypertension. 5. Hyperlipidemia. 6. Pulmonary hypertension. 7. Obstructive sleep apnea. 8. History of congestive heart failure. Patient on laboratory does have prior macrocytosis and will have screening tests. Patient also would reverse albumin to globulin ratio and protein studies to be obtained. 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 Consider pulmonary evaluation, especially in light of abnormal chest CT. Patient with history of cirrhosis and fatty liver on prior CT scan. 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 Patient with large left knee effusion and consider orthopedic consult. LACIE GIBSON M.D. [id number] MTDD
[2019-06-24] MEDS ORDERED: INSULIN (NOVOLOG) ASPART 100 UNITS/ML 10ML VIAL ONE (21:19)
[2019-06-24] MEDS: ATORVASTATIN CA 40 MG TABLET (FP) PO SCH (21:47)
[2019-06-24] MEDS: DOCUSATE SODIUM 100 MG CAPSULE (FP) PO SCH (21:47)
--- NOTE | 2019-06-24 22:39 | HP ---
Admitting History and Physical - Past Medical History Cardiovascular: Yes: AFIB, CAD, CHF (low normal LVEF on 02/25 ECHO), HTN, Hyperlipdemia, Pulmonary Hypertension Pulmonary: Yes: COPD, O2 Dependent, Other (pulmonary htn) Renal/: Yes: BPH Heme/Onc: Yes: Anemia Endocrine: Yes: Diabetes Mellitus - Past Surgical History Past Surgical History: Yes: Stent - Smoking History Smoking history: Never smoked Have you smoked in the past 12 months: No Aproximately how many cigarettes per day: 0 - Alcohol/Substance Use Hx Alcohol Use: Yes History of Substance Use: reports: None - Social History ADL: Independent History of Recent Travel: No Home Medications - Allergies Allergies/Adverse Reactions: Allergies Allergy/AdvReac Type Severity Reaction Status Date / Time No Known Allergies Allergy Verified 06/23/19 11:50 - Home Medications Home Medications: Ambulatory Orders Alendronate Na [Fosamax (Weekly)] 70 mg PO WEEKLY 01/29/17 Atorvastatin Calcium 40 mg PO DAILY 01/29/17 Isosorbide Mononitrate [Imdur -] 60 mg PO DAILY 01/29/17 Sacubitril/Valsartan [Entresto 24 mg-26 mg Tablet] 1 tab PO BID 01/29/17 Aspirin Coated [Ecotrin -] 81 mg PO DAILY tablet.ec 11/05/17 Amlodipine Besylate 5 mg PO DAILY 05/04/18 Metoprolol Succinate 50 mg PO DAILY 05/04/18 Acetaminophen [Tylenol .Regular Strength -] 650 mg PO Q6H PRN tablet 03/07/19 Apixaban [Eliquis -] 5 mg PO BID tablet 03/07/19 Digoxin [Lanoxin -] 0.125 mg PO DAILY tablet 03/07/19 Furosemide [Lasix -] 80 mg PO DAILY tablet 03/07/19 Insulin Sliding Scale [Novolog Vial Sliding Scale -] 1 vial SQ ACHS units 03/07 Potassium Chloride [K-Dur -] 40 meq PO DAILY tablet.er 03/07/19 Docusate Sodium [Colace] 300 mg PO HS 06/23/19 Dulcolax 10 mg SD DAILY PRN 06/23/19 Gabapentin 300 mg PO TID 06/23/19 Insulin Glargine,Hum.rec.anlog [Basaglar Kwikpen U-100] 20 unit SQ DAILY Iprat-Albut 0.5-3(2.5) mg/3 ml 3 ml NEB QID 06/23/19 Metolazone 2.5 mg PO ASDIR 06/23/19 Milk of Magnesia 5 5ml PO DAILY PRN 06/23/19 Oxycodone-Acetaminophen 10-325 10 mg PO Q8H PRN 06/23/19 Polyethylene Glycol 3350 [Miralax (For Daily Use) -] 17 gm PO DAILY 06/23/19 Tamsulosin HCl [Flomax] 0.4 mg PO DAILY 06/23/19 Zinc Oxide 20% Topical Oint 1 appful DAILY PRN 06/23/19 Family Disease History - Family Disease History Family Disease History: Other: Father (: did not know his medical history), Mother (: age 71: uncertain cause), Son (4, healthy), Daughter (2, healthy) Other Family History: No family history of colorectal cancer, anemia, other GI malignancy Physical Examination Vital Signs: Vital Signs Temperature 98.3 F 06/24/19 19:00 Pulse Rate 74 06/24/19 21:54 Respiratory Rate 18 06/24/19 21:00 Blood Pressure 120/63 06/24/19 21:54 O2 Sat by Pulse Oximetry (%) 100 06/24/19 21:00 Labs: CBC, BMP 06/24/19 07:05 06/24/19 07:05
[2019-06-25] MEDS: INSULIN (LEVEMIR) 100 UNITS/ML UNITS SQ SCH (06:28)
[2019-06-25] MEDS: GABAPENTIN 300 MG CAPSULE (FP) PO SCH ×3 (06:28→21:12)
[2019-06-25] MEDS: INSULIN SLIDING SCALE (NOVOLOG) 1 VIAL SQ SCH ×4 (06:28→21:17)
--- NOTE | 2019-06-25 08:04 | PN.GI ---
GI Progress Note Subjective: NO NEW COMPLAINTS -DENIES ABDOMINAL PAIN / NAUSEA/ VOMITING/ BLOOD IN THE STOOL - Objective Vital Signs: Vital Signs Temperature 98.7 F 06/25/19 06:00 Pulse Rate 90 06/25/19 06:00 Respiratory Rate 18 06/25/19 06:00 Blood Pressure 152/91 06/25/19 06:00 O2 Sat by Pulse Oximetry (%) 100 06/24/19 21:00 Constitutional: Well Nourished, No Distress, Calm Eyes: Yes: WNL HENT: Yes: WNL Neck: Yes: WNL Cardiovascular: Yes: WNL Respiratory: Yes: WNL, Regular Gastrointestinal Inspection: Yes: WNL ...Auscultate: Yes: Normoactive Bowel Sounds ...Palpate: Yes: Soft Extremities: Yes: WNL Labs: CBC, BMP 06/24/19 07:05 06/24/19 07:05 INR, PTT INR 2.02 (0.83-1.09) H 06/23/19 13:00 Problem List - Problems (1) Abnormal liver enzymes Assessment/Plan: H/H STABLE - REPEAT SCOPES PER DR. MOHAN (WHO WILL RETURN ON THURSDAY) - FURTHER ANEMIA WORK UP PER HEME . ULTRASOUND REVIEWED - GALLSTONES WITHOUT GB THICKENING OR EDEMA. CONTINUE TO TREND LFT AND ALP - FRACTIONATE ALP,MRCP ORDERED TO FURTHER EVALUATE THE BILIARY TREE DIET TOLERATED Code(s): R74.8 - ABNORMAL LEVELS OF OTHER SERUM ENZYMES (2) Diabetes Code(s): E11.9 - TYPE 2 DIABETES MELLITUS WITHOUT COMPLICATIONS Qualifiers: Diabetes mellitus type: other specified (including TAN) Diabetes mellitus intermediate teacher insulin use: unspecified intermediate teacher insulin use status Diabetes mellitus complication status: with other specified complication Qualified Code (s): E13.69 - Other specified diabetes mellitus with other specified complication (3) Anemia Code(s): D64.9 - ANEMIA, UNSPECIFIED
[2019-06-25] MEDS ORDERED: PT OWN MED DRAWER 7, Y5N ONE ×2 (09:55→10:47)
[2019-06-25] MEDS: POTASSIUM CHLORIDE TABS 20 MEQ TABLET.ER (FP) PO SCH (10:11)
[2019-06-25] MEDS: APIXABAN 5 MG TABLET PO SCH ×2 (10:12→21:12)
[2019-06-25] MEDS: SACUBITRIL/VALSARTAN 24 MG-26 MG TABLET PO SCH ×2 (10:12→21:19)
[2019-06-25] MEDS: ASPIRIN COATED 81 MG TABLET.EC PO SCH (10:12)
[2019-06-25] MEDS: amLODIPine BESYLATE 5 MG TABLET (FP) PO SCH (10:12)
[2019-06-25] MEDS: ISOSORBIDE MONONITRATE 60 MG TAB.SR.24H (FP) PO SCH (10:12)
[2019-06-25] MEDS: POLYETHYLENE GLYCOL 3350 119 GM BTL PO SCH (10:14)
[2019-06-25 10:22] LABS: BASO % 0.6 % (0-2.0); EOS % 4.6 % (0-4.5); HEMATOCRIT 30.9 % (35.4-49); HEMOGLOBIN 9.9 GM/dL (11.7-16.9); LYMPH % 12.5 % (8-40); MCHC 32.2 g/dl (32.0-35.9); MEAN CELL VOLUME 93.2 fl (80-96); MEAN PLT VOLUME 7.6 fl (7.5-11.1); MONO % 6.2 % (3.8-10.2); NEUT % 76.1 % (42.8-82.8); PLATELET COUNT 321 K/MM3 (134-434); RBC 3.32 M/mm3 (4.00-5.60); RDW 15.5 % (11.9-15.9); RETICULOCYTES 1.67 % (0.5-1.5); WHITE BLOOD COUNT 7.7 K/mm3 (4.0-10.0)
[2019-06-25] MEDS ORDERED: INSULIN (NOVOLOG) ASPART 100 UNITS/ML 10ML VIAL ONE ×2 (10:26→20:32)
[2019-06-25 10:56] LABS: ALBUMIN 3.1 g/dl (3.4-5.0); BILIRUBIN,TOTAL 0.7 mg/dL (0.2-1); BLOOD UREA NITROGEN 20.1 mg/dL (7-18); CALCIUM 9.7 mg/dL (8.5-10.1); CREATININE 0.8 mg/dL (0.55-1.3); POTASSIUM 4.2 mmol/L (3.5-5.1)
--- NOTE | 2019-06-25 21:06 | PN ---
Progress Note, Physician - Current Medication List Current Medications: Active Medications Acetaminophen (Tylenol -) 650 mg PO Q6H PRN PRN Reason: pain 3-10 Last Admin: 06/24/19 01:39 Dose: 650 mg Amlodipine Besylate (Norvasc -) 5 mg PO DAILY [facility] Last Admin: 06/25/19 10:12 Dose: 5 mg Apixaban (Eliquis -) 5 mg PO BID [facility] Last Admin: 06/25/19 10:12 Dose: 5 mg Aspirin (Ecotrin -) 81 mg PO DAILY [facility] Last Admin: 06/25/19 10:12 Dose: 81 mg Atorvastatin Calcium (Lipitor -) 40 mg PO HS [facility] Last Admin: 06/24/19 21:47 Dose: 40 mg Docusate Sodium (Colace -) 300 mg PO HS [facility] Last Admin: 06/24/19 21:47 Dose: 300 mg Gabapentin (Neurontin -) 300 mg PO TID [facility] Last Admin: 06/25/19 15:40 Dose: 300 mg Insulin Aspart (Novolog Vial Sliding Scale -) 1 vial SQ [facility]; Protocol Last Admin: 06/25/19 11:12 Dose: Not Given Insulin Detemir (Levemir Vial) 20 units SQ ACBK [facility] Last Admin: 06/25/19 06:28 Dose: Not Given Isosorbide Mononitrate (Imdur -) 60 mg PO DAILY [facility] Last Admin: 06/25/19 10:12 Dose: 60 mg Metoprolol Succinate (Toprol Xl -) 50 mg PO DAILY [facility] Last Admin: 06/25/19 10:11 Dose: 50 mg Polyethylene Glycol (Miralax (For Daily Use) -) 17 gm PO DAILY [facility] Last Admin: 06/25/19 10:14 Dose: Not Given Potassium Chloride (K-Dur -) 40 meq PO DAILY [facility] Last Admin: 06/25/19 10:11 Dose: 40 meq Sacubitril/Valsartan (Entresto 24 Mg-26 Mg Tablet) 1 tab PO BID [facility] Last Admin: 06/25/19 10:12 Dose: 1 tab - Objective Vital Signs: Vital Signs Temperature 97.9 F 06/25/19 09:30 Pulse Rate 87 06/25/19 09:30 Respiratory Rate 18 06/25/19 09:30 Blood Pressure 105/67 06/25/19 09:30 O2 Sat by Pulse Oximetry (%) 100 06/25/19 09:30 Labs: CBC, BMP 06/25/19 09:10 06/25/19 09:10 INR, PTT INR 2.02 (0.83-1.09) H 06/23/19 13:00
[2019-06-25] MEDS: ATORVASTATIN CA 40 MG TABLET (FP) PO SCH (21:12)
[2019-06-25] MEDS: DOCUSATE SODIUM 100 MG CAPSULE (FP) PO SCH (21:12)
[2019-06-26] MEDS: GABAPENTIN 300 MG CAPSULE (FP) PO SCH ×3 (06:09→21:00)
[2019-06-26] MEDS: INSULIN (LEVEMIR) 100 UNITS/ML UNITS SQ SCH (06:22)
[2019-06-26] MEDS ORDERED: INSULIN (NOVOLOG) ASPART 100 UNITS/ML 10ML VIAL ONE ×3 (06:33→20:48)
[2019-06-26] MEDS: INSULIN SLIDING SCALE (NOVOLOG) 1 VIAL SQ SCH ×4 (07:00→21:10)
[2019-06-26 07:48] LABS: BASO % 0.6 % (0-2.0); EOS % 5.7 % (0-4.5); HEMATOCRIT 26.9 % (35.4-49); HEMOGLOBIN 8.7 GM/dL (11.7-16.9); LYMPH % 15.1 % (8-40); MCHC 32.4 g/dl (32.0-35.9); MEAN CELL VOLUME 92.6 fl (80-96); MEAN PLT VOLUME 7.2 fl (7.5-11.1); MONO % 7.9 % (3.8-10.2); NEUT % 70.7 % (42.8-82.8); PLATELET COUNT 286 K/MM3 (134-434); RBC 2.91 M/mm3 (4.00-5.60); RDW 15.5 % (11.9-15.9)
--- NOTE | 2019-06-26 08:27 | PN.GI ---
GI Progress Note Subjective: NO NEW COMPLAINTS - Objective Vital Signs: Vital Signs Temperature 98.5 F 06/26/19 06:00 Pulse Rate 77 06/26/19 06:00 Respiratory Rate 18 06/26/19 06:00 Blood Pressure 103/48 L 06/26/19 06:00 O2 Sat by Pulse Oximetry (%) 99 06/25/19 21:00 Constitutional: Well Nourished, No Distress, Calm Eyes: Yes: WNL HENT: Yes: WNL Neck: Yes: WNL Cardiovascular: Yes: WNL Respiratory: Yes: WNL, Regular, CTA Bilaterally Gastrointestinal Inspection: Yes: WNL ...Auscultate: Yes: Normoactive Bowel Sounds Extremities: Yes: WNL Edema: No Labs: CBC, BMP 06/26/19 07:30 INR, PTT INR 2.02 (0.83-1.09) H 06/23/19 13:00 Problem List - Problems (1) Abnormal liver enzymes Assessment/Plan: H/H STABLE - REPEAT SCOPES PER DR. MOHAN (WHO WILL RETURN ON THURSDAY) - FURTHER ANEMIA WORK UP PER HEME . MRCP REVIEWED -- R3EC SURGERY EVALUATION FOR COMPLETENESS CONTINUE TO TREND LFT AND ALP DIET TOLERATED Code(s): R74.8 - ABNORMAL LEVELS OF OTHER SERUM ENZYMES (2) Diabetes Code(s): E11.9 - TYPE 2 DIABETES MELLITUS WITHOUT COMPLICATIONS Qualifiers: Diabetes mellitus type: other specified (including TAN) Diabetes mellitus correction insulin use: unspecified continuous churn buttermaker insulin use status Diabetes mellitus complication status: with other specified complication Qualified Code (s): E13.69 - Other specified diabetes mellitus with other specified complication (3) Anemia Code(s): D64.9 - ANEMIA, UNSPECIFIED
[2019-06-26 08:40] LABS: ALBUMIN 2.8 g/dl (3.4-5.0); BILIRUBIN,TOTAL 0.4 mg/dL (0.2-1); CREATININE 1.1 mg/dL (0.55-1.3); TOT PROT 6.1 g/dl (6.4-8.2)
[2019-06-26] MEDS ORDERED: PT OWN MED DRAWER 7, Y5N ONE ×2 (09:41→21:06)
[2019-06-26] MEDS: POTASSIUM CHLORIDE TABS 20 MEQ TABLET.ER (FP) PO SCH (09:45)
[2019-06-26] MEDS: amLODIPine BESYLATE 5 MG TABLET (FP) PO SCH (09:45)
[2019-06-26] MEDS: ISOSORBIDE MONONITRATE 60 MG TAB.SR.24H (FP) PO SCH (09:45)
[2019-06-26] MEDS: APIXABAN 5 MG TABLET PO SCH ×2 (09:45→21:00)
[2019-06-26] MEDS: SACUBITRIL/VALSARTAN 24 MG-26 MG TABLET PO SCH ×2 (09:45→21:07)
[2019-06-26] MEDS: ASPIRIN COATED 81 MG TABLET.EC PO SCH (09:46)
[2019-06-26] MEDS: POLYETHYLENE GLYCOL 3350 119 GM BTL PO SCH (09:46)
--- NOTE | 2019-06-26 17:40 | PN ---
Progress Note (short form) - Note Progress Note: 78 year old gentleman presenting with anemia. Review of past records reveals that from 10/2017 thru 03/2019, patient had macrocytosis . Anemia has deveoped some time between 2018 when Hct- 35% and recent labs with Hct low 20"s. Recent CBC - nc/nc. Patient has already received 2 units of packed cells . Subjective (06/26): No new complaints. mentioned felt a bit down ROS: 14 point elicited in detail and negative or as per above Last Vital Signs Temp Pulse Resp BP Pulse Ox 98.0 F 73 19 108/56 L 99 06/26/19 14:24 06/26/19 14:24 06/26/19 10:00 06/26/19 14:24 06/26/19 09:00 Physical Exam: General: NAD HEENT: MMM CVS: S1, S2 Lungs: CTAB Abdomen: Soft, NT, ND Extremities: No edema Neuro: moves all extremities Psych: AO, conversant pleasant Skin: No rash Labs: Laboratory Last Values WBC 7.0 K/mm3 (4.0-10.0) 06/26/19 07:30 RBC 2.91 M/mm3 (4.00-5.60) L 06/26/19 07:30 Hgb 8.7 GM/dL (11.7-16.9) L 06/26/19 07:30 Hct 26.9 % (35.4-49) L 06/26/19 07:30 MCV 92.6 fl (80-96) 06/26/19 07:30 MCH 30.0 pg (25.7-33.7) 06/26/19 07:30 MCHC 32.4 g/dl (32.0-35.9) 06/26/19 07:30 RDW 15.5 % (11.9-15.9) 06/26/19 07:30 Plt Count 286 K/MM3 (134-434) 06/26/19 07:30 MPV 7.2 fl (7.5-11.1) L 06/26/19 07:30 Absolute Neuts (auto) 5.0 K/mm3 (1.5-8.0) 06/26/19 07:30 Neutrophils % 70.7 % (42.8-82.8) 06/26/19 07:30 Lymphocytes % 15.1 % (8-40) D 06/26/19 07:30 Monocytes % 7.9 % (3.8-10.2) 06/26/19 07:30 Eosinophils % 5.7 % (0-4.5) H 06/26/19 07:30 Basophils % 0.6 % (0-2.0) 06/26/19 07:30 Nucleated RBC % 0 % (0-0) 06/26/19 07:30 Retic Count 1.67 % (0.5-1.5) H 06/25/19 09:10 PT with INR 24.00 SEC (9.7-13.0) H 06/23/19 13:00 INR 2.02 (0.83-1.09) H 06/23/19 13:00 Sodium 142 mmol/L (136-145) 06/26/19 07:30 Potassium 4.0 mmol/L (3.5-5.1) 06/26/19 07:30 Chloride 100 mmol/L (98-107) 06/26/19 07:30 Carbon Dioxide 37 mmol/L (21-32) H 06/26/19 07:30 Anion Gap 5 MMOL/L (8-16) L 06/26/19 07:30 BUN 31.0 mg/dL (7-18) H 06/26/19 07:30 Creatinine 1.1 mg/dL (0.55-1.3) 06/26/19 07:30 Est GFR (CKD-EPI)AfAm 74.65 06/26/19 07:30 Est GFR (CKD-EPI)NonAf 64.41 06/26/19 07:30 POC Glucometer 103 UNITS (80-120) 06/26/19 17:05 Random Glucose 112 mg/dL (74-106) H 06/26/19 07:30 Hemoglobin A1c % 6.4 % (4.2-6.3) H 06/24/19 07:05 Calcium 9.0 mg/dL (8.5-10.1) 06/26/19 07:30 Magnesium 1.8 mg/dL (1.8-2.4) 06/24/19 07:05 Total Bilirubin 0.4 mg/dL (0.2-1) 06/26/19 07:30 GGT 95 U/L (5-85) H 06/25/19 09:10 AST 9 U/L (15-37) L 06/26/19 07:30 ALT 12 U/L (13-61) L 06/26/19 07:30 Alkaline Phosphatase 145 U/L (45-117) H 06/26/19 07:30 LD Total 159 U/L (87-246) 06/25/19 09:10 Total Protein 6.1 g/dl (6.4-8.2) L 06/26/19 07:30 Albumin 2.8 g/dl (3.4-5.0) L 06/26/19 07:30 Triglycerides 90 mg/dL (0-150) 06/24/19 07:05 Cholesterol 122 mg/dL (50-200) 06/24/19 07:05 Total LDL Cholesterol 70 mg/dL (5-100) 06/24/19 07:05 HDL Cholesterol 37 mg/dL (40-60) L 06/24/19 07:05 Prostate Specific Ag < 0.10 ng/ml (0.0-4.0) 06/25/19 09:10 Vitamin B12 633 pg/ml (193-986) 06/25/19 09:10 Serum Folate 7 ng/mL (3.1-17.5) 06/25/19 09:10 TSH 1.89 uIU/ml (0.358-3.74) 06/25/19 09:10 Urine Color Yellow 06/23/19 14:27 Urine Appearance Clear 06/23/19 14:27 Urine pH 7.5 (5.0-8.0) 06/23/19 14:27 Ur Specific [place] 1.006 (1.010-1.035) L 06/23/19 14:27 Urine Protein Negative (NEGATIVE) 06/23/19 14:27 Urine Glucose (UA) Negative (NEGATIVE) 06/23/19 14:27 Urine Ketones Negative (NEGATIVE) 06/23/19 14:27 Urine Blood Negative (NEGATIVE) 06/23/19 14:27 Urine Nitrite Negative (NEGATIVE) 06/23/19 14:27 Urine Bilirubin Negative (NEGATIVE) 06/23/19 14:27 Urine Urobilinogen 0.2 mg/dL (0.2-1.0) 06/23/19 14:27 Ur Leukocyte Esterase Negative (NEGATIVE) 06/23/19 14:27 Stool Occult Blood Negative (NEGATIVE) 06/25/19 18:45 Blood Type O POSITIVE 06/23/19 13:00 Antibody Screen Negative 06/23/19 13:00 Crossmatch See Detail 06/23/19 13:00 Meds: Current Medications Generic Name Dose Route Start Last Admin Trade Name Chiq PRN Reason Stop Dose Admin Acetaminophen 650 mg 06/24/19 01:33 06/24/19 01:39 Tylenol - PO 650 mg Q6H PRN Administration pain 3-10 Amlodipine Besylate 5 mg 06/24/19 10:00 06/26/19 09:45 Norvasc - PO 5 mg DAILY [facility] Administration Apixaban 5 mg 06/23/19 23:45 06/26/19 09:45 Eliquis - PO 5 mg BID [facility] Administration Aspirin 81 mg 06/24/19 10:00 06/26/19 09:46 Ecotrin - PO 81 mg DAILY [facility] Administration Atorvastatin Calcium 40 mg 06/24/19 22:00 06/25/19 21:12 Lipitor - PO 40 mg HS [facility] Administration Docusate Sodium 300 mg 06/24/19 22:00 06/25/19 21:12 Colace - PO 300 mg HS [facility] Administration Gabapentin 300 mg 06/24/19 06:00 06/26/19 14:47 Neurontin - PO 300 mg TID [facility] Administration Insulin Aspart 1 vial 06/24/19 07:00 06/26/19 17:06 Novolog Vial Sliding Scale - SQ Not Given ACHS [facility] Protocol Insulin Detemir 20 units 06/24/19 07:00 06/26/19 06:22 Levemir Vial SQ 20 units ACBK [facility] Administration Isosorbide Mononitrate 60 mg 06/24/19 10:00 06/26/19 09:45 Imdur - PO 60 mg DAILY [facility] Administration Metoprolol Succinate 50 mg 06/24/19 10:00 06/26/19 09:45 Toprol Xl - PO 50 mg DAILY [facility] Administration Polyethylene Glycol 17 gm 06/24/19 10:00 06/26/19 09:46 Miralax (For Daily Use) - PO Not Given DAILY [facility] Potassium Chloride 40 meq 06/24/19 10:00 06/26/19 09:45 K-Dur - PO 40 meq DAILY [facility] Administration Sacubitril/Valsartan 1 tab 06/24/19 10:00 06/26/19 09:45 Entresto 24 Mg-26 Mg Tablet PO 1 tab BID [facility] Administration Multiple co-morbid medical problems: ASHD/CAD/S/P stents- on ASA and eliquis Pulmonary hypertension ALY Prostate ca -receiving hormonal injections monthly Cirrhosis- past heavy ETOH abuse Paget's HBP HPL DM Left knee effusion S/P fall from bed In view of past macrocytosis-- to exclude megaloblastosis and will need to do flow cytometry Stool guaiac negative (06/23 and 06/25) In view of reverse albumin /globulin ratio -- for protein studies. Will follow
[2019-06-26] MEDS: DOCUSATE SODIUM 100 MG CAPSULE (FP) PO SCH (20:59)
[2019-06-26] MEDS: ATORVASTATIN CA 40 MG TABLET (FP) PO SCH (21:00)
--- NOTE | 2019-06-26 23:48 | PN ---
Progress Note, Physician - Current Medication List Current Medications: Active Medications Acetaminophen (Tylenol -) 650 mg PO Q6H PRN PRN Reason: pain 3-10 Last Admin: 06/24/19 01:39 Dose: 650 mg Amlodipine Besylate (Norvasc -) 5 mg PO DAILY [facility] Last Admin: 06/26/19 09:45 Dose: 5 mg Apixaban (Eliquis -) 5 mg PO BID [facility] Last Admin: 06/26/19 21:00 Dose: 5 mg Aspirin (Ecotrin -) 81 mg PO DAILY [facility] Last Admin: 06/26/19 09:46 Dose: 81 mg Atorvastatin Calcium (Lipitor -) [address] [facility] Last Admin: 06/26/19 21:00 Dose: 40 mg Docusate Sodium (Colace -) 300 mg PO HS [facility] Last Admin: 06/26/19 20:59 Dose: 300 mg Gabapentin (Neurontin -) 300 mg PO TID [facility] Last Admin: 06/26/19 21:00 Dose: 300 mg Insulin Aspart (Novolog Vial Sliding Scale -) 1 vial SQ [facility]; Protocol Last Admin: 06/26/19 21:10 Dose: Not Given Insulin Detemir (Levemir Vial) 20 units SQ ACBK [facility] Last Admin: 06/26/19 06:22 Dose: 20 units Isosorbide Mononitrate (Imdur -) 60 mg PO DAILY [facility] Last Admin: 06/26/19 09:45 Dose: 60 mg Metoprolol Succinate (Toprol Xl -) 50 mg PO DAILY [facility] Last Admin: 06/26/19 09:45 Dose: 50 mg Polyethylene Glycol (Miralax (For Daily Use) -) 17 gm PO DAILY [facility] Last Admin: 06/26/19 09:46 Dose: Not Given Potassium Chloride (K-Dur -) 40 meq PO DAILY [facility] Last Admin: 06/26/19 09:45 Dose: 40 meq Sacubitril/Valsartan (Entresto 24 Mg-26 Mg Tablet) 1 tab PO BID [facility] Last Admin: 06/26/19 21:07 Dose: 1 tab - Objective Vital Signs: Vital Signs Temperature 98.0 F 06/26/19 18:29 Pulse Rate 87 06/26/19 18:29 Respiratory Rate 18 06/26/19 18:29 Blood Pressure 107/57 L 06/26/19 18:29 O2 Sat by Pulse Oximetry (%) 99 06/26/19 21:00 Labs: CBC, BMP 06/26/19 07:30 06/26/19 07:30 INR, PTT INR 2.02 (0.83-1.09) H 06/23/19 13:00
[2019-06-27] MEDS: ACETAMINOPHEN 325 MG TABLET (FP) PO PRN ×3 (06:10→21:28)
[2019-06-27] MEDS: INSULIN (LEVEMIR) 100 UNITS/ML UNITS SQ SCH (06:12)
[2019-06-27] MEDS: GABAPENTIN 300 MG CAPSULE (FP) PO SCH ×3 (06:12→21:27)
[2019-06-27] MEDS: INSULIN SLIDING SCALE (NOVOLOG) 1 VIAL SQ SCH ×4 (06:23→22:28)
[2019-06-27 08:12] LABS: BASO % 0.6 % (0-2.0); EOS % 4.9 % (0-4.5); HEMATOCRIT 26.1 % (35.4-49); HEMOGLOBIN 8.5 GM/dL (11.7-16.9); LYMPH % 10.3 % (8-40); MCH 30.5 pg (25.7-33.7); MCHC 32.7 g/dl (32.0-35.9); MEAN CELL VOLUME 93.4 fl (80-96); MEAN PLT VOLUME 7.7 fl (7.5-11.1); MONO % 7.3 % (3.8-10.2); NEUT % 76.9 % (42.8-82.8); PLATELET COUNT 286 K/MM3 (134-434); RBC 2.79 M/mm3 (4.00-5.60); RDW 15.7 % (11.9-15.9); WHITE BLOOD COUNT 8.2 K/mm3 (4.0-10.0)
[2019-06-27 08:50] LABS: ALBUMIN 2.8 g/dl (3.4-5.0); BILIRUBIN,TOTAL 0.4 mg/dL (0.2-1); BLOOD UREA NITROGEN 38.8 mg/dL (7-18); CALCIUM 8.9 mg/dL (8.5-10.1); POTASSIUM 3.9 mmol/L (3.5-5.1); TOT PROT 6.1 g/dl (6.4-8.2)
--- NOTE | 2019-06-27 09:27 | PN ---
Progress Note, Physician History of Present Illness: Mr. Orozco is a 78 yo M who presents from the [facility] due to anemia He has a PMH of CAD, HTN, HLD, pulmonary HTN on 2L O2, CHF, prostate CA, ALY on BiPAP s/p fall with no resulting fracture but a lot of pain resulting in an admission to [facility]. Pt reports that he has noticed fatigue for the past month He feels like he falls asleep almost as soon as he sits down He denies chest pain He denies palpitations He denies rectal bleeding, or melena - Current Medication List Current Medications: Active Medications Acetaminophen (Tylenol -) 650 mg PO Q6H PRN PRN Reason: pain 3-10 Last Admin: 06/27/19 06:10 Dose: 650 mg Amlodipine Besylate (Norvasc -) 5 mg PO DAILY [facility] Last Admin: 06/26/19 09:45 Dose: 5 mg Apixaban (Eliquis -) 5 mg PO BID [facility] Last Admin: 06/26/19 21:00 Dose: 5 mg Aspirin (Ecotrin -) 81 mg PO DAILY [facility] Last Admin: 06/26/19 09:46 Dose: 81 mg Atorvastatin Calcium (Lipitor -) 40 mg PO HS [facility] Last Admin: 06/26/19 21:00 Dose: 40 mg Docusate Sodium (Colace -) 300 mg PO HS [facility] Last Admin: 06/26/19 20:59 Dose: 300 mg Gabapentin (Neurontin -) 300 mg PO TID [facility] Last Admin: 06/27/19 06:12 Dose: 300 mg Insulin Aspart (Novolog Vial Sliding Scale -) 1 vial SQ [facility]; Protocol Last Admin: 06/27/19 06:23 Dose: Not Given Insulin Detemir (Levemir Vial) 20 units SQ ACBK [facility] Last Admin: 06/27/19 06:12 Dose: 20 units Isosorbide Mononitrate (Imdur -) 60 mg PO DAILY [facility] Last Admin: 06/26/19 09:45 Dose: 60 mg Metoprolol Succinate (Toprol Xl -) 50 mg PO DAILY [facility] Last Admin: 06/26/19 09:45 Dose: 50 mg Polyethylene Glycol (Miralax (For Daily Use) -) 17 gm PO DAILY [facility] Last Admin: 06/26/19 09:46 Dose: Not Given Potassium Chloride (K-Dur -) 40 meq PO DAILY [facility] Last Admin: 06/26/19 09:45 Dose: 40 meq Sacubitril/Valsartan (Entresto 24 Mg-26 Mg Tablet) 1 tab PO BID [facility] Last Admin: 06/26/19 21:07 Dose: 1 tab - Objective Vital Signs: Vital Signs Temperature 99.1 F 06/27/19 06:00 Pulse Rate 83 06/27/19 06:00 Respiratory Rate 18 06/26/19 18:29 Blood Pressure 118/57 L 06/27/19 06:00 O2 Sat by Pulse Oximetry (%) 99 06/26/19 21:00 Labs: CBC, BMP 06/27/19 07:29 06/27/19 07:29 INR, PTT INR 2.02 (0.83-1.09) H 06/23/19 13:00 Assessment/Plan ASHD/CAD/S/P stents- on ASA and eliquis Pulmonary hypertension ALY Prostate ca -receiving hormonal injections monthly Cirrhosis- past heavy ETOH abuse Paget's HBP HPL DM Left knee effusion S/P fall from bed
[2019-06-27] MEDS: APIXABAN 5 MG TABLET PO SCH ×2 (10:29→21:28)
[2019-06-27] MEDS: POTASSIUM CHLORIDE TABS 20 MEQ TABLET.ER (FP) PO SCH (10:29)
[2019-06-27] MEDS: ASPIRIN COATED 81 MG TABLET.EC PO SCH (10:29)
[2019-06-27] MEDS: amLODIPine BESYLATE 5 MG TABLET (FP) PO SCH (10:29)
[2019-06-27] MEDS: ISOSORBIDE MONONITRATE 60 MG TAB.SR.24H (FP) PO SCH (10:29)
[2019-06-27] MEDS: SACUBITRIL/VALSARTAN 24 MG-26 MG TABLET PO SCH ×2 (11:20→21:29)
[2019-06-27] MEDS: POLYETHYLENE GLYCOL 3350 119 GM BTL PO SCH (11:20)
--- NOTE | 2019-06-27 17:49 | PN ---
Progress Note, Physician History of Present Illness: GI FOLLOW UP NOTE Patient examined and case discussed with Dr Elizabeth Patient is alert and awake in bed. Denies abdominal pain, nausea, or vomiting. Denies rectal bleeding, blood in stool, or melena. Complains of intermittent dysphagia. Labs reviewed and Hg 8.5. - Current Medication List Current Medications: Active Medications Acetaminophen (Tylenol -) 650 mg PO Q6H PRN PRN Reason: pain 3-10 Last Admin: 06/27/19 11:22 Dose: 650 mg Amlodipine Besylate (Norvasc -) 5 mg PO DAILY [facility] Last Admin: 06/27/19 10:29 Dose: 5 mg Apixaban (Eliquis -) 5 mg PO BID [facility] Last Admin: 06/27/19 10:29 Dose: 5 mg Aspirin (Ecotrin -) 81 mg PO DAILY [facility] Last Admin: 06/27/19 10:29 Dose: 81 mg Atorvastatin Calcium (Lipitor -) 40 mg PO HS [facility] Last Admin: 06/26/19 21:00 Dose: 40 mg Docusate Sodium (Colace -) 300 mg PO HS [facility] Last Admin: 06/26/19 20:59 Dose: 300 mg Gabapentin (Neurontin -) 300 mg PO TID [facility] Last Admin: 06/27/19 14:32 Dose: 300 mg Insulin Aspart (Novolog Vial Sliding Scale -) 1 vial SQ [facility]; Protocol Last Admin: 06/27/19 16:51 Dose: Not Given Insulin Detemir (Levemir Vial) 20 units SQ ACBK [facility] Last Admin: 06/27/19 06:12 Dose: 20 units Isosorbide Mononitrate (Imdur -) 60 mg PO DAILY [facility] Last Admin: 06/27/19 10:29 Dose: 60 mg Metoprolol Succinate (Toprol Xl -) 50 mg PO DAILY [facility] Last Admin: 06/27/19 10:29 Dose: 50 mg Polyethylene Glycol (Miralax (For Daily Use) -) 17 gm PO DAILY [facility] Last Admin: 06/27/19 11:20 Dose: Not Given Potassium Chloride (K-Dur -) 40 meq PO DAILY [facility] Last Admin: 06/27/19 10:29 Dose: 40 meq Sacubitril/Valsartan (Entresto 24 Mg-26 Mg Tablet) 1 tab PO BID [facility] Last Admin: 06/27/19 11:20 Dose: 1 tab - Objective Vital Signs: Vital Signs Temperature 97.8 F 06/27/19 15:10 Pulse Rate 73 06/27/19 15:10 Respiratory Rate 20 06/27/19 15:10 Blood Pressure 106/44 L 06/27/19 15:10 O2 Sat by Pulse Oximetry (%) 99 06/27/19 09:00 Constitutional: Yes: No Distress, Calm Eyes: Yes: Conjunctiva Clear Neck: Yes: Supple Cardiovascular: Yes: Regular Rate and Rhythm Respiratory: Yes: Regular, CTA Bilaterally Gastrointestinal: Yes: Normal Bowel Sounds, Soft, Other (LUQ tender) Neurological: Yes: Alert Psychiatric: Yes: Alert Labs: CBC, BMP 06/27/19 07:29 06/27/19 07:29 INR, PTT INR 2.02 (0.83-1.09) H 06/23/19 13:00 Problem List - Problems (1) Abnormal liver enzymes Assessment/Plan: >AST 9, ALT 12, Alk Phos 145 >continue to monitor LFTs daily >Abdominal MRI and US reviewed Code(s): R74.8 - ABNORMAL LEVELS OF OTHER SERUM ENZYMES (2) Abdominal discomfort Assessment/Plan: >Abdominal MRI shows partly distended gallbladder without gallstones, without dilatation of intrahepatic duct, CBD, pancreatic duct, loss of signal of liver on T2 weighted images raising possible iron deposition disease >Abdominal US shows small gallstones layering posteriorly and gallbladder partially fill with sludge without wall thickening or pericholecystic fluid suggest acute cholecystitis >surgical consult Code(s): R10.9 - UNSPECIFIED ABDOMINAL PAIN (3) Anemia Assessment/Plan: >Hg 8.5 >monitor Hg daily >transfuse for Hg <8.0 to avoid fluid overload >chronic use of Eliquis due to Afib, will need cardiology clearance prior to EGD Code(s): D64.9 - ANEMIA, UNSPECIFIED
[2019-06-27] MEDS ORDERED: PT OWN MED DRAWER 7, Y5N ONE (21:22)
[2019-06-27] MEDS: DOCUSATE SODIUM 100 MG CAPSULE (FP) PO SCH (21:26)
[2019-06-27] MEDS: ATORVASTATIN CA 40 MG TABLET (FP) PO SCH (21:27)
--- NOTE | 2019-06-27 22:04 | PN ---
Progress Note, Physician History of Present Illness: Pt feeling weak - Current Medication List Current Medications: Active Medications Acetaminophen (Tylenol -) 650 mg PO Q6H PRN PRN Reason: pain 3-10 Last Admin: 06/27/19 21:28 Dose: 650 mg Amlodipine Besylate (Norvasc -) 5 mg PO DAILY [facility] Last Admin: 06/27/19 10:29 Dose: 5 mg Apixaban (Eliquis -) 5 mg PO BID [facility] Last Admin: 06/27/19 21:28 Dose: 5 mg Aspirin (Ecotrin -) 81 mg PO DAILY [facility] Last Admin: 06/27/19 10:29 Dose: 81 mg Atorvastatin Calcium (Lipitor -) 40 mg PO HS [facility] Last Admin: 06/27/19 21:27 Dose: 40 mg Docusate Sodium (Colace -) 300 mg PO HS [facility] Last Admin: 06/27/19 21:26 Dose: 300 mg Gabapentin (Neurontin -) 300 mg PO TID [facility] Last Admin: 06/27/19 21:27 Dose: 300 mg Insulin Aspart (Novolog Vial Sliding Scale -) 1 vial SQ [facility]; Protocol Last Admin: 06/27/19 16:51 Dose: Not Given Insulin Detemir (Levemir Vial) 20 units SQ ACBK [facility] Last Admin: 06/27/19 06:12 Dose: 20 units Isosorbide Mononitrate (Imdur -) 60 mg PO DAILY [facility] Last Admin: 06/27/19 10:29 Dose: 60 mg Metoprolol Succinate (Toprol Xl -) 50 mg PO DAILY [facility] Last Admin: 06/27/19 10:29 Dose: 50 mg Polyethylene Glycol (Miralax (For Daily Use) -) 17 gm PO DAILY [facility] Last Admin: 06/27/19 11:20 Dose: Not Given Potassium Chloride (K-Dur -) 40 meq PO DAILY [facility] Last Admin: 06/27/19 10:29 Dose: 40 meq Sacubitril/Valsartan (Entresto 24 Mg-26 Mg Tablet) 1 tab PO BID [facility] Last Admin: 06/27/19 21:29 Dose: 1 tab - Objective Vital Signs: Vital Signs Temperature 97.8 F 06/27/19 15:10 Pulse Rate 73 06/27/19 15:10 Respiratory Rate 20 06/27/19 15:10 Blood Pressure 106/44 L 06/27/19 15:10 O2 Sat by Pulse Oximetry (%) 100 06/27/19 21:00 Constitutional: Yes: Obese HENT: Yes: WNL Neck: Yes: WNL, Supple Cardiovascular: Yes: WNL, Regular Rate and Rhythm Respiratory: Yes: Diminished Gastrointestinal: Yes: WNL, Normal Bowel Sounds, Soft, Abdomen, Obese Labs: CBC, BMP 06/27/19 07:29 06/27/19 07:29 INR, PTT INR 2.02 (0.83-1.09) H 06/23/19 13:00 Problem List - Problems (1) Symptomatic anemia Assessment/Plan: H/H stable from yesterday Pt w/ h/o cardio dz will probably need to be transfused 1 more unit of PRBC's prior to DC Will check CBC in am Await GI recommendations for EGD MRI showed distended gallbladder w/ gallstones US abd showed gallstones w/ sludge Await surgical consult Code(s): D64.9 - ANEMIA, UNSPECIFIED (2) Diabetes Assessment/Plan: Cont sliding scale w/ coverage Cont levemir Code(s): E11.9 - TYPE 2 DIABETES MELLITUS WITHOUT COMPLICATIONS Qualifiers: Diabetes mellitus type: other specified (including TAN) Diabetes mellitus assisted insulin use: 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 Diabetes mellitus complication status: with other specified complication Qualified Code (s): E13.69 - Other specified diabetes mellitus with other specified complication (3) Hypertension Assessment/Plan: BP stable Cont toprol/imdur/norvasc Code(s): I10 - ESSENTIAL (PRIMARY) HYPERTENSION Qualifiers: Hypertension type: unspecified Qualified Code(s): I10 - Essential (primary ) hypertension (4) BPH (benign prostatic hyperplasia) Code(s): N40.0 - BENIGN PROSTATIC HYPERPLASIA WITHOUT LOWER URINRY TRACT SYMP (5) Chronic combined systolic and diastolic CHF, NYHA class 4 Assessment/Plan: Cont entresto Code(s): I50.42 - CHRONIC COMBINED SYSTOLIC AND DIASTOLIC HRT FAIL (6) HLD (hyperlipidemia) Assessment/Plan: Cont lipitor Code(s): E78.5 - HYPERLIPIDEMIA, UNSPECIFIED (7) Paroxysmal A-fib Assessment/Plan: Heart rate controlled Clnt toprol Cont eliquis Code(s): I48.0 - PAROXYSMAL ATRIAL FIBRILLATION
[2019-06-28] MEDS: GABAPENTIN 300 MG CAPSULE (FP) PO SCH ×3 (05:26→21:43)
[2019-06-28] MEDS: ACETAMINOPHEN 325 MG TABLET (FP) PO PRN ×2 (05:26→12:35)
[2019-06-28] MEDS: INSULIN (LEVEMIR) 100 UNITS/ML UNITS SQ SCH (06:11)
[2019-06-28] MEDS: INSULIN SLIDING SCALE (NOVOLOG) 1 VIAL SQ SCH ×4 (06:11→22:51)
[2019-06-28 07:07] LABS: FREE KAP CHN UR 57.3 mg/L (1.35-24.19); KAPPA LAMBDA RATIO URIN 35.37 (2.04-10.37)
[2019-06-28 08:40] LABS: BASO % 0.5 % (0-2.0); EOS % 4.2 % (0-4.5); HEMATOCRIT 26.7 % (35.4-49); HEMOGLOBIN 8.6 GM/dL (11.7-16.9); LYMPH % 10.6 % (8-40); MCH 30.2 pg (25.7-33.7); MCHC 32.3 g/dl (32.0-35.9); MEAN CELL VOLUME 93.7 fl (80-96); MEAN PLT VOLUME 7.9 fl (7.5-11.1); MONO % 6.6 % (3.8-10.2); NEUT % 78.1 % (42.8-82.8); PLATELET COUNT 276 K/MM3 (134-434); RBC 2.85 M/mm3 (4.00-5.60); RDW 15.4 % (11.9-15.9); WHITE BLOOD COUNT 7.5 K/mm3 (4.0-10.0)
[2019-06-28 09:04] LABS: ALBUMIN 2.7 g/dl (3.4-5.0); BILIRUBIN,TOTAL 0.4 mg/dL (0.2-1); BLOOD UREA NITROGEN 34.3 mg/dL (7-18); CREATININE 0.8 mg/dL (0.55-1.3); POTASSIUM 4.1 mmol/L (3.5-5.1)
[2019-06-28] MEDS: POTASSIUM CHLORIDE TABS 20 MEQ TABLET.ER (FP) PO SCH (09:34)
[2019-06-28] MEDS: ASPIRIN COATED 81 MG TABLET.EC PO SCH (09:34)
[2019-06-28] MEDS: APIXABAN 5 MG TABLET PO SCH ×2 (09:34→21:43)
[2019-06-28] MEDS: SACUBITRIL/VALSARTAN 24 MG-26 MG TABLET PO SCH ×2 (09:34→21:43)
[2019-06-28] MEDS: ISOSORBIDE MONONITRATE 60 MG TAB.SR.24H (FP) PO SCH (09:34)
[2019-06-28] MEDS: amLODIPine BESYLATE 5 MG TABLET (FP) PO SCH (09:34)
[2019-06-28] MEDS: POLYETHYLENE GLYCOL 3350 119 GM BTL PO SCH (09:42)
[2019-06-28 17:07] LABS: FREE KAPPA,SERUM 38.2 mg/L (3.3-19.4)
--- NOTE | 2019-06-28 19:29 | PN ---
Progress Note, Physician History of Present Illness: GI FOLLOW UP NOTE Patient examined and case discussed with Dr Elizabeth Patient is alert and awake in bed. Denies abdominal pain, nausea, or vomiting. Denies rectal bleeding, blood in stool, or melena. Continues with complaints of intermittent dysphagia. Labs reviewed and Hg 8.6. - Current Medication List Current Medications: Active Medications Acetaminophen (Tylenol -) 650 mg PO Q6H PRN PRN Reason: pain 3-10 Last Admin: 06/28/19 12:35 Dose: 650 mg Amlodipine Besylate (Norvasc -) 5 mg PO DAILY [facility] Last Admin: 06/28/19 09:34 Dose: 5 mg Apixaban (Eliquis -) 5 mg PO BID [facility] Last Admin: 06/28/19 09:34 Dose: 5 mg Aspirin (Ecotrin -) 81 mg PO DAILY [facility] Last Admin: 06/28/19 09:34 Dose: 81 mg Atorvastatin Calcium (Lipitor -) 40 mg PO HS [facility] Last Admin: 06/27/19 21:27 Dose: 40 mg Docusate Sodium (Colace -) 300 mg PO HS [facility] Last Admin: 06/27/19 21:26 Dose: 300 mg Gabapentin (Neurontin -) 300 mg PO TID [facility] Last Admin: 06/28/19 16:12 Dose: 300 mg Insulin Aspart (Novolog Vial Sliding Scale -) 1 vial SQ [facility]; Protocol Last Admin: 06/28/19 17:55 Dose: Not Given Insulin Detemir (Levemir Vial) 20 units SQ ACBK [facility] Last Admin: 06/28/19 06:11 Dose: 20 units Isosorbide Mononitrate (Imdur -) 60 mg PO DAILY [facility] Last Admin: 06/28/19 09:34 Dose: 60 mg Metoprolol Succinate (Toprol Xl -) 50 mg PO DAILY [facility] Last Admin: 06/28/19 09:34 Dose: 50 mg Polyethylene Glycol (Miralax (For Daily Use) -) 17 gm PO DAILY [facility] Last Admin: 06/28/19 09:42 Dose: Not Given Potassium Chloride (K-Dur -) 40 meq PO DAILY [facility] Last Admin: 06/28/19 09:34 Dose: 40 meq Sacubitril/Valsartan (Entresto 24 Mg-26 Mg Tablet) 1 tab PO BID [facility] Last Admin: 06/28/19 09:34 Dose: 1 tab - Objective Vital Signs: Vital Signs Temperature 98.2 F 06/28/19 15:04 Pulse Rate 76 06/28/19 15:04 Respiratory Rate 20 06/28/19 15:04 Blood Pressure 116/65 06/28/19 15:04 O2 Sat by Pulse Oximetry (%) 100 06/27/19 21:00 Constitutional: Yes: No Distress, Calm Eyes: Yes: Conjunctiva Clear HENT: Yes: Atraumatic Cardiovascular: Yes: Regular Rate and Rhythm Respiratory: Yes: Regular, CTA Bilaterally Gastrointestinal: Yes: Normal Bowel Sounds, Soft, Tenderness (RUQ, LUQ) Extremities: Yes: WNL Neurological: Yes: Alert Psychiatric: Yes: Alert Labs: CBC, BMP 06/28/19 07:40 06/28/19 07:40 INR, PTT INR 2.02 (0.83-1.09) H 06/23/19 13:00 <Marina Harrison - Last Filed: 06/28/19 19:38> - Current Medication List Current Medications: Active Medications Acetaminophen (Tylenol -) 650 mg PO Q6H PRN PRN Reason: pain 3-10 Last Admin: 06/28/19 12:35 Dose: 650 mg Amlodipine Besylate (Norvasc -) 5 mg PO DAILY [facility] Last Admin: 06/29/19 11:02 Dose: 5 mg Apixaban (Eliquis -) 5 mg PO BID [facility] Last Admin: 06/29/19 11:02 Dose: 5 mg Aspirin (Ecotrin -) 81 mg PO DAILY [facility] Last Admin: 06/29/19 11:03 Dose: 81 mg Atorvastatin Calcium (Lipitor -) 40 mg PO HS [facility] Last Admin: 06/28/19 21:43 Dose: 40 mg Docusate Sodium (Colace -) 300 mg PO HS [facility] Last Admin: 06/28/19 21:43 Dose: 300 mg Fluticasone Propionate (Flonase -) 1 spray NS BID [facility] Last Admin: 06/29/19 15:48 Dose: 1 spray Gabapentin (Neurontin -) 300 mg PO TID [facility] Last Admin: 06/29/19 14:06 Dose: 300 mg Insulin Aspart (Novolog Vial Sliding Scale -) 1 vial SQ ACHS [facility]; Protocol Last Admin: 06/29/19 16:49 Dose: 2 units Insulin Detemir (Levemir Vial) 20 units SQ ACBK [facility] Last Admin: 06/29/19 06:56 Dose: Not Given Isosorbide Mononitrate (Imdur -) 60 mg PO DAILY [facility] Last Admin: 06/29/19 11:03 Dose: 60 mg Lidocaine (Lidoderm Patch -) 1 patch TP DAILY [facility] Last Admin: 06/29/19 14:07 Dose: 1 patch Metoprolol Succinate (Toprol Xl -) 50 mg PO DAILY [facility] Last Admin: 06/29/19 11:03 Dose: 50 mg Miscellaneous (Lidoderm Patch Removal) 1 each MC DAILY@2200 [facility] Polyethylene Glycol (Miralax (For Daily Use) -) 17 gm PO DAILY [facility] Last Admin: 06/29/19 11:04 Dose: Not Given Potassium Chloride (K-Dur -) 40 meq PO DAILY [facility] Last Admin: 06/29/19 11:02 Dose: 40 meq Sacubitril/Valsartan (Entresto 24 Mg-26 Mg Tablet) 1 tab PO BID [facility] Last Admin: 06/29/19 11:03 Dose: 1 tab Sodium Phosphate (Fleet Adult Rectal Enema -) 133 ml ID ONCE ONE Stop: 06/30/19 04:01 - Objective Vital Signs: Vital Signs Temperature 98.3 F 06/29/19 14:23 Pulse Rate 69 06/29/19 14:23 Respiratory Rate 18 06/29/19 14:23 Blood Pressure 108/57 L 06/29/19 14:23 O2 Sat by Pulse Oximetry (%) 100 06/29/19 09:00 Labs: CBC, BMP 06/28/19 07:40 06/28/19 07:40 INR, PTT INR 2.02 (0.83-1.09) H 06/23/19 13:00 <Denis Elizabeth - Last Filed: 06/29/19 19:31> Problem List - Problems (1) Abnormal liver enzymes Assessment/Plan: >AST 10, ALT 13, Alk Phos 142 >continue to monitor LFTs daily >Abdominal MRI and US reviewed Code(s): R74.8 - ABNORMAL LEVELS OF OTHER SERUM ENZYMES (2) Abdominal discomfort Assessment/Plan: >Abdominal MRI shows partly distended gallbladder without gallstones, without dilatation of intrahepatic duct, CBD, pancreatic duct, loss of signal of liver on T2 weighted images raising possible iron deposition disease >Abdominal US shows small gallstones layering posteriorly and gallbladder partially fill with sludge without wall thickening or pericholecystic fluid suggest acute cholecystitis >surgical consult Code(s): R10.9 - UNSPECIFIED ABDOMINAL PAIN (3) Anemia Assessment/Plan: >Hg 8.6 >monitor Hg daily >transfuse for Hg <8.0 to avoid fluid overload >chronic use of Eliquis due to Afib, will need cardiology clearance prior to EGD Code(s): D64.9 - ANEMIA, UNSPECIFIED <Marina Harrison - Last Filed: 06/28/19 19:38>
[2019-06-28] MEDS ORDERED: INSULIN (NOVOLOG) ASPART 100 UNITS/ML 10ML VIAL ONE (21:12)
[2019-06-28] MEDS ORDERED: PT OWN MED DRAWER 7, Y5N ONE (21:12)
[2019-06-28] MEDS: DOCUSATE SODIUM 100 MG CAPSULE (FP) PO SCH (21:43)
[2019-06-28] MEDS: ATORVASTATIN CA 40 MG TABLET (FP) PO SCH (21:43)
--- NOTE | 2019-06-28 22:54 | PN ---
Progress Note, Physician - Current Medication List Current Medications: Active Medications Acetaminophen (Tylenol -) 650 mg PO Q6H PRN PRN Reason: pain 3-10 Last Admin: 06/28/19 12:35 Dose: 650 mg Amlodipine Besylate (Norvasc -) 5 mg PO DAILY [facility] Last Admin: 06/28/19 09:34 Dose: 5 mg Apixaban (Eliquis -) 5 mg PO BID [facility] Last Admin: 06/28/19 21:43 Dose: 5 mg Aspirin (Ecotrin -) 81 mg PO DAILY [facility] Last Admin: 06/28/19 09:34 Dose: 81 mg Atorvastatin Calcium (Lipitor -) 40 mg PO HS [facility] Last Admin: 06/28/19 21:43 Dose: 40 mg Docusate Sodium (Colace -) 300 mg PO HS [facility] Last Admin: 06/28/19 21:43 Dose: 300 mg Gabapentin (Neurontin -) 300 mg PO TID [facility] Last Admin: 06/28/19 21:43 Dose: 300 mg Insulin Aspart (Novolog Vial Sliding Scale -) [address] [facility]; Protocol Last Admin: 06/28/19 22:51 Dose: Not Given Insulin Detemir (Levemir Vial) 20 units SQ ACBK [facility] Last Admin: 06/28/19 06:11 Dose: 20 units Isosorbide Mononitrate (Imdur -) 60 mg PO DAILY [facility] Last Admin: 06/28/19 09:34 Dose: 60 mg Metoprolol Succinate (Toprol Xl -) 50 mg PO DAILY [facility] Last Admin: 06/28/19 09:34 Dose: 50 mg Polyethylene Glycol (Miralax (For Daily Use) -) 17 gm PO DAILY [facility] Last Admin: 06/28/19 09:42 Dose: Not Given Potassium Chloride (K-Dur -) 40 meq PO DAILY [facility] Last Admin: 06/28/19 09:34 Dose: 40 meq Sacubitril/Valsartan (Entresto 24 Mg-26 Mg Tablet) 1 tab PO BID [facility] Last Admin: 06/28/19 21:43 Dose: 1 tab - Objective Vital Signs: Vital Signs Temperature 98.2 F 06/28/19 15:04 Pulse Rate 81 06/28/19 21:50 Respiratory Rate 18 06/28/19 21:50 Blood Pressure 138/66 06/28/19 21:50 O2 Sat by Pulse Oximetry (%) 100 06/27/19 21:00 Labs: CBC, BMP 06/28/19 07:40 06/28/19 07:40 INR, PTT INR 2.02 (0.83-1.09) H 06/23/19 13:00 Problem List - Problems (1) Symptomatic anemia Code(s): D64.9 - ANEMIA, UNSPECIFIED (2) Diabetes Code(s): E11.9 - TYPE 2 DIABETES MELLITUS WITHOUT COMPLICATIONS Qualifiers: Diabetes mellitus type: other specified (including TAN) Diabetes mellitus intermediate insulin use: 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 Diabetes mellitus complication status: with other specified complication Qualified Code (s): E13.69 - Other specified diabetes mellitus with other specified complication (3) Hypertension Code(s): I10 - ESSENTIAL (PRIMARY) HYPERTENSION Qualifiers: Hypertension type: unspecified Qualified Code(s): I10 - Essential (primary ) hypertension (4) BPH (benign prostatic hyperplasia) Code(s): N40.0 - BENIGN PROSTATIC HYPERPLASIA WITHOUT LOWER URINRY TRACT SYMP (5) Chronic combined systolic and diastolic CHF, NYHA class 4 Code(s): I50.42 - CHRONIC COMBINED SYSTOLIC AND DIASTOLIC HRT FAIL (6) HLD (hyperlipidemia) Code(s): E78.5 - HYPERLIPIDEMIA, UNSPECIFIED (7) Paroxysmal A-fib Code(s): I48.0 - PAROXYSMAL ATRIAL FIBRILLATION
[2019-06-29] MEDS: GABAPENTIN 300 MG CAPSULE (FP) PO SCH ×3 (06:54→21:26)
[2019-06-29] MEDS: INSULIN SLIDING SCALE (NOVOLOG) 1 VIAL SQ SCH ×4 (06:56→21:27)
[2019-06-29] MEDS: INSULIN (LEVEMIR) 100 UNITS/ML UNITS SQ SCH (06:56)
[2019-06-29] MEDS ORDERED: INSULIN (LEVEMIR) 100 UNITS/ML UNITS SQ ONE (07:05)
[2019-06-29] MEDS ORDERED: POLYETHYLENE GLYCOL 3350 255 GM BTL PO ONE (07:15)
--- NOTE | 2019-06-29 07:59 | PN ---
Progress Note, Physician Chief Complaint: Pt OOB in chair; A&OX3; no chest pain or dyspnea. + Intermittent abdominal discomfort. Denies chest pain or dyspnea. History of Present Illness: Mr. Orozco is a 78 yo M who presents from the [facility] due to anemia He has a PMH of CAD, AF, HTN, HLD, pulmonary HTN on 2L O2, mild systolic CHF, prostate CA, ALY on BiPAP s/p fall with no resulting fracture but a lot of pain resulting in an admission to [facility]. Pt reports that he has noticed fatigue for the past month He feels like he falls asleep almost as soon as he sits down He denies chest pain He denies palpitations He denies rectal bleeding, or melena - Current Medication List Current Medications: Active Medications Acetaminophen (Tylenol -) 650 mg PO Q6H PRN PRN Reason: pain 3-10 Last Admin: 06/28/19 12:35 Dose: 650 mg Amlodipine Besylate (Norvasc -) 5 mg PO DAILY [facility] Last Admin: 06/28/19 09:34 Dose: 5 mg Apixaban (Eliquis -) 5 mg PO BID [facility] Last Admin: 06/28/19 21:43 Dose: 5 mg Aspirin (Ecotrin -) 81 mg PO DAILY [facility] Last Admin: 06/28/19 09:34 Dose: 81 mg Atorvastatin Calcium (Lipitor -) 40 mg PO HS [facility] Last Admin: 06/28/19 21:43 Dose: 40 mg Docusate Sodium (Colace -) 300 mg PO HS [facility] Last Admin: 06/28/19 21:43 Dose: 300 mg Gabapentin (Neurontin -) 300 mg PO TID [facility] Last Admin: 06/29/19 06:54 Dose: 300 mg Insulin Aspart (Novolog Vial Sliding Scale -) 1 vial SQ ACHS [facility]; Protocol Last Admin: 06/29/19 06:56 Dose: Not Given Insulin Detemir (Levemir Vial) 20 units SQ ACBK [facility] Last Admin: 06/29/19 06:56 Dose: Not Given Isosorbide Mononitrate (Imdur -) 60 mg PO DAILY [facility] Last Admin: 06/28/19 09:34 Dose: 60 mg Metoprolol Succinate (Toprol Xl -) 50 mg PO DAILY [facility] Last Admin: 06/28/19 09:34 Dose: 50 mg Polyethylene Glycol (Miralax (For Daily Use) -) 17 gm PO DAILY [facility] Last Admin: 06/28/19 09:42 Dose: Not Given Potassium Chloride (K-Dur -) 40 meq PO DAILY [facility] Last Admin: 06/28/19 09:34 Dose: 40 meq Sacubitril/Valsartan (Entresto 24 Mg-26 Mg Tablet) 1 tab PO BID [facility] Last Admin: 06/28/19 21:43 Dose: 1 tab Sodium Phosphate (Fleet Adult Rectal Enema -) 133 ml [place] ONCE ONE Stop: 06/30/19 04:01 - Objective Vital Signs: Vital Signs Temperature 98.2 F 06/28/19 15:04 Pulse Rate 81 06/28/19 21:50 Respiratory Rate 18 06/28/19 21:50 Blood Pressure 138/66 06/28/19 21:50 O2 Sat by Pulse Oximetry (%) 100 06/28/19 21:00 Constitutional: Yes: Calm Eyes: Yes: WNL HENT: Yes: WNL Neck: Yes: WNL Cardiovascular: Yes: S1 (varies in intensity), S2 Respiratory: Yes: WNL Gastrointestinal: Yes: Soft. No: Tenderness ...Rectal Exam: Yes: Deferred Genitourinary: No: Anuria Breast(s): Yes: WNL Musculoskeletal: Yes: Joint Stiffness Extremities: Yes: Cool Edema: No Peripheral Pulses WNL: Yes Integumentary: Yes: WNL Neurological: Yes: WNL Psychiatric: Yes: WNL Labs: CBC, BMP 06/28/19 07:40 06/28/19 07:40 INR, PTT INR 2.02 (0.83-1.09) H 06/23/19 13:00 Abnormal Lab Results 06/25/19 06/28/19 06/28/19 09:10 07:40 07:40 RBC 2.85 L Hgb 8.6 L Hct 26.7 L Carbon Dioxide 35 H Anion Gap 4 L BUN 34.3 H AST 10 L Alkaline Phosphatase 142 H Total Protein 6.0 L Albumin 2.7 L Free [place] LC, Quant 38.2 H Free [place]/Lambda Ratio 2.16 H Problem List - Problems (1) Diabetes Code(s): E11.9 - TYPE 2 DIABETES MELLITUS WITHOUT COMPLICATIONS Qualifiers: Diabetes mellitus type: other specified (including TAN) Diabetes mellitus intermediate insulin use: unspecified intermediate insulin use status Diabetes mellitus complication status: with other specified complication Qualified Code (s): E13.69 - Other specified diabetes mellitus with other specified complication (2) Hypertension Code(s): I10 - ESSENTIAL (PRIMARY) HYPERTENSION Qualifiers: Hypertension type: unspecified Qualified Code(s): I10 - Essential (primary ) hypertension (3) Symptomatic anemia Assessment/Plan: GI workup in progress. On apixaban for AF. INR 2.0. Code(s): D64.9 - ANEMIA, UNSPECIFIED (4) Abdominal discomfort Assessment/Plan: From a cardiac perspective, there are no absolute contraindications for Mr. Orozco to undergo GI endoscopy and/or colonoscopy. Code(s): R10.9 - UNSPECIFIED ABDOMINAL PAIN (5) Atrial fibrillation Code(s): I48.91 - UNSPECIFIED ATRIAL FIBRILLATION (6) BPH (benign prostatic hyperplasia) Code(s): N40.0 - BENIGN PROSTATIC HYPERPLASIA WITHOUT LOWER URINRY TRACT SYMP (7) Depression Code(s): F32.9 - MAJOR DEPRESSIVE DISORDER, SINGLE EPISODE, UNSPECIFIED (8) HLD (hyperlipidemia) Assessment/Plan: On atorvastatin. Code(s): E78.5 - HYPERLIPIDEMIA, UNSPECIFIED (9) Pulmonary HTN Code(s): I27.2 - OTHER SECONDARY PULMONARY HYPERTENSION * DO NOT USE * (10) Gallstones Assessment/Plan: see under "abdominal discomfort" Code(s): K80.20 - CALCULUS OF GALLBLADDER W/O CHOLECYSTITIS W/O OBSTRUCTION (11) Systolic CHF Assessment/Plan: Continue Entresto, spironolactone; furosemide prn. On amlodipine; if low BP becomes an issue, this agent may be reduced or discontinued. Code(s): I50.20 - UNSPECIFIED SYSTOLIC (CONGESTIVE) HEART FAILURE
--- NOTE | 2019-06-29 09:54 | PN ---
Progress Note, Physician History of Present Illness: GI FOLLOW UP NOTE Patient examined and case discussed with Dr Elizabeth Patient is alert and awake in bed. Denies abdominal pain, nausea, or vomiting. Denies rectal bleeding, blood in stool, or melena. Continues with complaints of intermittent dysphagia. Placed on clear liquid diet and will start Miralax prep for endoscopy and colonoscopy in AM tomorrow with Dr Elizabeth. - Current Medication List Current Medications: Active Medications Acetaminophen (Tylenol -) 650 mg PO Q6H PRN PRN Reason: pain 3-10 Last Admin: 06/28/19 12:35 Dose: 650 mg Amlodipine Besylate (Norvasc -) 5 mg PO DAILY [facility] Last Admin: 06/28/19 09:34 Dose: 5 mg Apixaban (Eliquis -) 5 mg PO BID [facility] Last Admin: 06/28/19 21:43 Dose: 5 mg Aspirin (Ecotrin -) 81 mg PO DAILY [facility] Last Admin: 06/28/19 09:34 Dose: 81 mg Atorvastatin Calcium (Lipitor -) 40 mg PO HS [facility] Last Admin: 06/28/19 21:43 Dose: 40 mg Docusate Sodium (Colace -) 300 mg PO HS [facility] Last Admin: 06/28/19 21:43 Dose: 300 mg Gabapentin (Neurontin -) 300 mg PO TID [facility] Last Admin: 06/29/19 06:54 Dose: 300 mg Insulin Aspart (Novolog Vial Sliding Scale -) 1 vial SQ [facility]; Protocol Last Admin: 06/29/19 06:56 Dose: Not Given Insulin Detemir (Levemir Vial) 20 units SQ ACBK [facility] Last Admin: 06/29/19 06:56 Dose: Not Given Isosorbide Mononitrate (Imdur -) 60 mg PO DAILY [facility] Last Admin: 06/28/19 09:34 Dose: 60 mg Metoprolol Succinate (Toprol Xl -) 50 mg PO DAILY [facility] Last Admin: 06/28/19 09:34 Dose: 50 mg Polyethylene Glycol (Miralax (For Daily Use) -) 17 gm PO DAILY [facility] Last Admin: 06/28/19 09:42 Dose: Not Given Potassium Chloride (K-Dur -) 40 meq PO DAILY [facility] Last Admin: 06/28/19 09:34 Dose: 40 meq Sacubitril/Valsartan (Entresto 24 Mg-26 Mg Tablet) 1 tab PO BID [facility] Last Admin: 06/28/19 21:43 Dose: 1 tab Sodium Phosphate (Fleet Adult Rectal Enema -) 133 ml [place] ONCE ONE Stop: 06/30/19 04:01 - Objective Vital Signs: Vital Signs Temperature 98.2 F 06/28/19 15:04 Pulse Rate 81 06/28/19 21:50 Respiratory Rate 18 06/28/19 21:50 Blood Pressure 138/66 06/28/19 21:50 O2 Sat by Pulse Oximetry (%) 100 06/28/19 21:00 Constitutional: Yes: No Distress, Calm Eyes: Yes: Conjunctiva Clear HENT: Yes: Atraumatic Cardiovascular: Yes: Regular Rate and Rhythm Respiratory: Yes: Regular, CTA Bilaterally, On Nasal O2 Gastrointestinal: Yes: Normal Bowel Sounds, Soft, Tenderness (RUQ and LLQ) Neurological: Yes: Alert, Oriented Psychiatric: Yes: Alert, Oriented Labs: CBC, BMP 06/28/19 07:40 06/28/19 07:40 INR, PTT INR 2.02 (0.83-1.09) H 06/23/19 13:00 <Marina Harrison - Last Filed: 06/29/19 09:51> - Current Medication List Current Medications: Active Medications Acetaminophen (Tylenol -) 650 mg PO Q6H PRN PRN Reason: pain 3-10 Last Admin: 06/30/19 21:48 Dose: 650 mg Amlodipine Besylate (Norvasc -) 5 mg PO DAILY [facility] Last Admin: 07/01/19 09:18 Dose: 5 mg Apixaban (Eliquis -) 5 mg PO BID [facility] Last Admin: 07/01/19 09:18 Dose: 5 mg Aspirin (Ecotrin -) 81 mg PO DAILY [facility] Last Admin: 07/01/19 09:18 Dose: 81 mg Atorvastatin Calcium (Lipitor -) 40 mg PO HS [facility] Last Admin: 06/30/19 21:48 Dose: 40 mg Docusate Sodium (Colace -) 300 mg PO HS [facility] Last Admin: 06/30/19 21:48 Dose: 300 mg Fluticasone Propionate (Flonase -) 1 spray NS BID [facility] Last Admin: 07/01/19 09:19 Dose: 1 spray Gabapentin (Neurontin -) 300 mg PO TID [facility] Last Admin: 07/01/19 06:09 Dose: 300 mg Insulin Aspart (Novolog Vial Sliding Scale -) 1 vial SQ ACHS [facility]; Protocol Last Admin: 07/01/19 11:21 Dose: Not Given Insulin Detemir (Levemir Vial) 20 units SQ ACBK [facility] Last Admin: 07/01/19 06:10 Dose: 20 units Isosorbide Mononitrate (Imdur -) 60 mg PO DAILY [facility] Last Admin: 07/01/19 09:18 Dose: 60 mg Lidocaine (Lidoderm Patch -) 1 patch TP DAILY [facility] Last Admin: 07/01/19 09:19 Dose: 1 patch Metoprolol Succinate (Toprol Xl -) 50 mg PO DAILY [facility] Last Admin: 07/01/19 09:18 Dose: 50 mg Miscellaneous (Lidoderm Patch Removal) 1 each MC DAILY@2200 [facility] Last Admin: 06/30/19 21:49 Dose: 1 each Polyethylene Glycol (Miralax (For Daily Use) -) 17 gm PO DAILY [facility] Last Admin: 07/01/19 09:21 Dose: Not Given Potassium Chloride (K-Dur -) 40 meq PO DAILY [facility] Last Admin: 07/01/19 09:17 Dose: 40 meq Sacubitril/Valsartan (Entresto 24 Mg-26 Mg Tablet) 1 tab PO BID [facility] Last Admin: 07/01/19 09:18 Dose: 1 tab - Objective Vital Signs: Vital Signs Temperature 98.5 F 06/30/19 18:00 Pulse Rate 75 07/01/19 10:00 Respiratory Rate 20 07/01/19 10:00 Blood Pressure 122/60 07/01/19 10:00 O2 Sat by Pulse Oximetry (%) 99 07/01/19 09:00 Labs: CBC, BMP 07/01/19 07:35 07/01/19 07:20 INR, PTT INR 1.46 (0.83-1.09) H 06/30/19 11:55 <Denis Elizabeth - Last Filed: 07/01/19 12:50> Problem List - Problems (1) Abnormal liver enzymes Assessment/Plan: >AST 10, ALT 13, Alk Phos 142 >continue to monitor LFTs daily >Abdominal MRI and US reviewed Code(s): R74.8 - ABNORMAL LEVELS OF OTHER SERUM ENZYMES (2) Abdominal discomfort Assessment/Plan: >Abdominal MRI shows partly distended gallbladder without gallstones, without dilatation of intrahepatic duct, CBD, pancreatic duct, loss of signal of liver on T2 weighted images raising possible iron deposition disease >Abdominal US shows small gallstones layering posteriorly and gallbladder partially fill with sludge without wall thickening or pericholecystic fluid suggest acute cholecystitis >surgical consult Code(s): R10.9 - UNSPECIFIED ABDOMINAL PAIN (3) Anemia Assessment/Plan: >Hg 8.6 >monitor Hg daily >transfuse for Hg <8.0 to avoid fluid overload >chronic use of Eliquis due to Afib, will need cardiology clearance prior to EGD >patient will begin clear liquid diet and bowel prep for endoscopy/colonoscopy tomorrow Code(s): D64.9 - ANEMIA, UNSPECIFIED <Marina Harrison - Last Filed: 06/29/19 09:51>
[2019-06-29] MEDS ORDERED: PT OWN MED DRAWER 7, Y5N ONE ×2 (10:51→20:59)
[2019-06-29] MEDS: POTASSIUM CHLORIDE TABS 20 MEQ TABLET.ER (FP) PO SCH (11:02)
[2019-06-29] MEDS: amLODIPine BESYLATE 5 MG TABLET (FP) PO SCH (11:02)
[2019-06-29] MEDS: APIXABAN 5 MG TABLET PO SCH ×2 (11:02→21:25)
[2019-06-29] MEDS: ASPIRIN COATED 81 MG TABLET.EC PO SCH (11:03)
[2019-06-29] MEDS: ISOSORBIDE MONONITRATE 60 MG TAB.SR.24H (FP) PO SCH (11:03)
[2019-06-29] MEDS: SACUBITRIL/VALSARTAN 24 MG-26 MG TABLET PO SCH ×2 (11:03→21:25)
[2019-06-29] MEDS: POLYETHYLENE GLYCOL 3350 119 GM BTL PO SCH (11:04)
[2019-06-29] MEDS ORDERED: INSULIN (NOVOLOG) ASPART 100 UNITS/ML 10ML VIAL ONE (11:26)
--- NOTE | 2019-06-29 11:33 | PN ---
Progress Note, Physician History of Present Illness: Mr. Orozco is a 78 yo M who presents from the [facility] due to anemia He has a PMH of CAD, HTN, HLD, pulmonary HTN on 2L O2, CHF, prostate CA, ALY on BiPAP s/p fall with no resulting fracture but a lot of pain resulting in an admission to [facility]. Pt reports that he has noticed fatigue for the past month He feels like he falls asleep almost as soon as he sits down He denies chest pain He denies palpitations He denies rectal bleeding, or melena - Current Medication List Current Medications: Active Medications Acetaminophen (Tylenol -) 650 mg PO Q6H PRN PRN Reason: pain 3-10 Last Admin: 06/28/19 12:35 Dose: 650 mg Amlodipine Besylate (Norvasc -) 5 mg PO DAILY [facility] Last Admin: 06/29/19 11:02 Dose: 5 mg Apixaban (Eliquis -) 5 mg PO BID [facility] Last Admin: 06/29/19 11:02 Dose: 5 mg Aspirin (Ecotrin -) 81 mg PO DAILY [facility] Last Admin: 06/29/19 11:03 Dose: 81 mg Atorvastatin Calcium (Lipitor -) 40 mg PO HS [facility] Last Admin: 06/28/19 21:43 Dose: 40 mg Docusate Sodium (Colace -) 300 mg PO HS [facility] Last Admin: 06/28/19 21:43 Dose: 300 mg Gabapentin (Neurontin -) 300 mg PO TID [facility] Last Admin: 06/29/19 06:54 Dose: 300 mg Insulin Aspart (Novolog Vial Sliding Scale -) 1 vial SQ [facility]; Protocol Last Admin: 06/29/19 11:12 Dose: Not Given Insulin Detemir (Levemir Vial) 20 units SQ ACBK [facility] Last Admin: 06/29/19 06:56 Dose: Not Given Isosorbide Mononitrate (Imdur -) 60 mg PO DAILY [facility] Last Admin: 06/29/19 11:03 Dose: 60 mg Metoprolol Succinate (Toprol Xl -) 50 mg PO DAILY [facility] Last Admin: 06/29/19 11:03 Dose: 50 mg Polyethylene Glycol (Miralax (For Daily Use) -) 17 gm PO DAILY [facility] Last Admin: 06/29/19 11:04 Dose: Not Given Potassium Chloride (K-Dur -) 40 meq PO DAILY [facility] Last Admin: 06/29/19 11:02 Dose: 40 meq Sacubitril/Valsartan (Entresto 24 Mg-26 Mg Tablet) 1 tab PO BID [facility] Last Admin: 06/29/19 11:03 Dose: 1 tab Sodium Phosphate (Fleet Adult Rectal Enema -) 133 ml [place] ONCE ONE Stop: 06/30/19 04:01 - Objective Vital Signs: Vital Signs Temperature 98.2 F 06/28/19 15:04 Pulse Rate 81 06/28/19 21:50 Respiratory Rate 18 06/28/19 21:50 Blood Pressure 138/66 06/28/19 21:50 O2 Sat by Pulse Oximetry (%) 100 06/28/19 21:00 Eyes: Yes: WNL, Conjunctiva Clear, EOM Intact HENT: Yes: WNL, Atraumatic, Normocephalic Neck: Yes: WNL, Supple, Trachea Midline Cardiovascular: Yes: WNL, Regular Rate and Rhythm Respiratory: Yes: WNL, Regular, CTA Bilaterally Gastrointestinal: Yes: WNL, Normal Bowel Sounds Genitourinary: Yes: WNL Musculoskeletal: Yes: WNL Extremities: Yes: WNL Edema: Yes Integumentary: Yes: WNL Neurological: Yes: WNL, Alert, Oriented ...Motor Strength: WNL Psychiatric: Yes: WNL Labs: CBC, BMP 06/28/19 07:40 06/28/19 07:40 INR, PTT INR 2.02 (0.83-1.09) H 06/23/19 13:00 Assessment/Plan - Problems (1) Diabetes Code(s): E11.9 - TYPE 2 DIABETES MELLITUS WITHOUT COMPLICATIONS Qualifiers: Diabetes mellitus type: other specified (including TAN) Diabetes mellitus fci insulin use: 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 On apixaban for AF. INR 2.0. Code(s): D64.9 - ANEMIA, UNSPECIFIED (4) Abdominal discomfort Assessment/Plan: From a cardiac perspective, there are no absolute contraindications for Mr. Orozco to undergo GI endoscopy and/or colonoscopy. Code(s): R10.9 - UNSPECIFIED ABDOMINAL PAIN (5) Atrial fibrillation Code(s): I48.91 - UNSPECIFIED ATRIAL FIBRILLATION (6) BPH (benign prostatic hyperplasia) Code(s): N40.0 - BENIGN PROSTATIC HYPERPLASIA WITHOUT LOWER URINRY TRACT SYMP (7) Depression Code(s): F32.9 - MAJOR DEPRESSIVE DISORDER, SINGLE EPISODE, UNSPECIFIED (8) HLD (hyperlipidemia) Assessment/Plan: On atorvastatin. Code(s): E78.5 - HYPERLIPIDEMIA, UNSPECIFIED (9) Pulmonary HTN Code(s): I27.2 - OTHER SECONDARY PULMONARY HYPERTENSION * DO NOT USE * (10) Gallstones Assessment/Plan: see under "abdominal discomfort" Code(s): K80.20 - CALCULUS OF GALLBLADDER W/O CHOLECYSTITIS W/O OBSTRUCTION (11) Systolic CHF Assessment/Plan: Continue Entresto, spironolactone; furosemide prn. On amlodipine; if low BP becomes an issue, this agent may be reduced or discontinued. Code(s): I50.20 - UNSPECIFIED SYSTOLIC (CONGESTIVE) HEART FAILURE
--- NOTE | 2019-06-29 11:56 | PN ---
Progress Note, Physician History of Present Illness: The pt is a 78M w/ a history of diabetes, CHF, a-fib, anemia who presents from [facility] for evaluation symptomatic anemia. He is being followed by GI and will be getting a colonoscopy tomorrow. - Current Medication List Current Medications: Active Medications Acetaminophen (Tylenol -) 650 mg PO Q6H PRN PRN Reason: pain 3-10 Last Admin: 06/28/19 12:35 Dose: 650 mg Amlodipine Besylate (Norvasc -) 5 mg PO DAILY [facility] Last Admin: 06/29/19 11:02 Dose: 5 mg Apixaban (Eliquis -) 5 mg PO BID [facility] Last Admin: 06/29/19 11:02 Dose: 5 mg Aspirin (Ecotrin -) 81 mg PO DAILY [facility] Last Admin: 06/29/19 11:03 Dose: 81 mg Atorvastatin Calcium (Lipitor -) 40 mg PO HS [facility] Last Admin: 06/28/19 21:43 Dose: 40 mg Docusate Sodium (Colace -) 300 mg PO HS [facility] Last Admin: 06/28/19 21:43 Dose: 300 mg Fluticasone Propionate (Flonase -) 1 spray NS BID [facility] Gabapentin (Neurontin -) 300 mg PO TID [facility] Last Admin: 06/29/19 06:54 Dose: 300 mg Insulin Aspart (Novolog Vial Sliding Scale -) 1 vial SQ [facility]; Protocol Last Admin: 06/29/19 11:12 Dose: Not Given Insulin Detemir (Levemir Vial) 20 units SQ ACBK [facility] Last Admin: 06/29/19 06:56 Dose: Not Given Isosorbide Mononitrate (Imdur -) 60 mg PO DAILY [facility] Last Admin: 06/29/19 11:03 Dose: 60 mg Metoprolol Succinate (Toprol Xl -) 50 mg PO DAILY [facility] Last Admin: 06/29/19 11:03 Dose: 50 mg Polyethylene Glycol (Miralax (For Daily Use) -) 17 gm PO DAILY [facility] Last Admin: 06/29/19 11:04 Dose: Not Given Potassium Chloride (K-Dur -) 40 meq PO DAILY [facility] Last Admin: 06/29/19 11:02 Dose: 40 meq Sacubitril/Valsartan (Entresto 24 Mg-26 Mg Tablet) 1 tab PO BID [facility] Last Admin: 06/29/19 11:03 Dose: 1 tab Sodium Phosphate (Fleet Adult Rectal Enema -) 133 ml [place] ONCE ONE Stop: 06/30/19 04:01 - Objective Vital Signs: Vital Signs Temperature 98.2 F 06/28/19 15:04 Pulse Rate 81 06/28/19 21:50 Respiratory Rate 18 06/28/19 21:50 Blood Pressure 138/66 06/28/19 21:50 O2 Sat by Pulse Oximetry (%) 100 06/28/19 21:00 Constitutional: Yes: Well Nourished, No Distress HENT: Yes: Atraumatic Neck: Yes: Supple Cardiovascular: Yes: Regular Rate and Rhythm Respiratory: Yes: Regular, CTA Bilaterally Gastrointestinal: Yes: Normal Bowel Sounds, Soft ...Rectal Exam: Yes: Deferred Musculoskeletal: Yes: Back Pain, Muscle Weakness Extremities: Yes: Other (left knee pain) Edema: Yes Edema: LLE: Trace, RLE: Trace Integumentary: Yes: WNL Wound/Incision: Yes: Clean/Dry Neurological: Yes: Alert, Oriented ...Motor Strength: WNL Psychiatric: Yes: Alert, Oriented Labs: CBC, BMP 06/28/19 07:40 06/28/19 07:40 INR, PTT INR 2.02 (0.83-1.09) H 06/23/19 13:00 Problem List - Problems (1) Symptomatic anemia Assessment/Plan: H/H stable from yesterday, recheck cbc today patient for egd/colonoscopy tomorrow npo at midnight US abd showed gallstones w/ sludge Await surgical consult Code(s): D64.9 - ANEMIA, UNSPECIFIED (2) Abnormal liver enzymes Assessment/Plan: monitor ast/alt Code(s): R74.8 - ABNORMAL LEVELS OF OTHER SERUM ENZYMES (3) CHF (congestive heart failure) Code(s): I50.9 - HEART FAILURE, UNSPECIFIED Qualifiers: Heart failure type: unspecified Heart failure chronicity: chronic Qualified Code(s): I50.9 - Heart failure, unspecified (4) Diabetes Assessment/Plan: Cont sliding scale w/ coverage Cont levemir Code(s): E11.9 - TYPE 2 DIABETES MELLITUS WITHOUT COMPLICATIONS Qualifiers: Diabetes mellitus type: other specified (including TAN) Diabetes mellitus prison insulin use: unspecified logistics/shipper insulin use status Diabetes mellitus complication status: with other specified complication Qualified Code (s): E13.69 - Other specified diabetes mellitus with other specified complication (5) Systolic CHF Assessment/Plan: cardiology following Cont toprol/imdur/norvasc Code(s): I50.20 - UNSPECIFIED SYSTOLIC (CONGESTIVE) HEART FAILURE (6) HLD (hyperlipidemia) Code(s): E78.5 - HYPERLIPIDEMIA, UNSPECIFIED (7) Hypertension Assessment/Plan: BP stable Code(s): I10 - ESSENTIAL (PRIMARY) HYPERTENSION Qualifiers: Hypertension type: unspecified Qualified Code(s): I10 - Essential (primary ) hypertension (8) Chronic combined systolic and diastolic CHF, NYHA class 4 Assessment/Plan: Cont entresto Code(s): I50.42 - CHRONIC COMBINED SYSTOLIC AND DIASTOLIC HRT FAIL (9) Chronic hypoxemic respiratory failure Code(s): J96.11 - CHRONIC RESPIRATORY FAILURE WITH HYPOXIA (10) Paroxysmal A-fib Assessment/Plan: Heart rate controlled Cont toprol Cont eliquis Code(s): I48.0 - PAROXYSMAL ATRIAL FIBRILLATION Visit type - Emergency Visit Emergency Visit: Yes ED Registration Date: 06/23/19 Care time: The patient presented to the Emergency Department on the above date and was hospitalized for further evaluation of their emergent condition. - New Patient This patient is new to me today: Yes Date on this admission: 06/29/19 - Critical Care Critical Care patient: No - Discharge Referral Referred to [facility] Med P.C.: No
[2019-06-29] MEDS: LIDOCAINE 5% TOPICAL PATCH TP SCH (14:07)
[2019-06-29] MEDS: FLUTICASONE PROP 0.05% 16 GM NASAL SPRAY NS SCH ×2 (15:48→21:26)
--- NOTE | 2019-06-29 19:37 | PN ---
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
[2019-06-29 20:54] LABS: BASO % 0.7 % (0-2.0); EOS % 4.4 % (0-4.5); HEMATOCRIT 29.8 % (35.4-49); HEMOGLOBIN 9.4 GM/dL (11.7-16.9); LYMPH % 12.7 % (8-40); MCHC 31.4 g/dl (32.0-35.9); MEAN CELL VOLUME 95.8 fl (80-96); MEAN PLT VOLUME 8.6 fl (7.5-11.1); MONO % 5.5 % (3.8-10.2); NEUT % 76.7 % (42.8-82.8); PLATELET COUNT 335 K/MM3 (134-434); RBC 3.11 M/mm3 (4.00-5.60); RDW 15.7 % (11.9-15.9); WHITE BLOOD COUNT 8.5 K/mm3 (4.0-10.0)
[2019-06-29 21:20] LABS: ALBUMIN 3.1 g/dl (3.4-5.0); BILIRUBIN,TOTAL 0.4 mg/dL (0.2-1); BLOOD UREA NITROGEN 24.6 mg/dL (7-18); CALCIUM 9.5 mg/dL (8.5-10.1); CREATININE 0.8 mg/dL (0.55-1.3); POTASSIUM 4.5 mmol/L (3.5-5.1); TOT PROT 6.9 g/dl (6.4-8.2)
[2019-06-29] MEDS: ATORVASTATIN CA 40 MG TABLET (FP) PO SCH (21:25)
[2019-06-29] MEDS: LIDOCAINE PATCH REMOVAL MC SCH (21:26)
[2019-06-29] MEDS: DOCUSATE SODIUM 100 MG CAPSULE (FP) PO SCH (21:26)
[2019-06-30] MEDS ORDERED: SODIUM PHOSPHATE/NA BIPHOS 133 ML ENEMA PR ONE (04:00)
[2019-06-30] MEDS: GABAPENTIN 300 MG CAPSULE (FP) PO SCH ×3 (05:59→21:49)
[2019-06-30] MEDS: INSULIN SLIDING SCALE (NOVOLOG) 1 VIAL SQ SCH ×4 (05:59→22:00)
[2019-06-30] MEDS: INSULIN (LEVEMIR) 100 UNITS/ML UNITS SQ SCH (06:01)
[2019-06-30] MEDS ORDERED: ETOMIDATE 20 MG/10 ML AMPUL IVPUSH ONE (08:02)
[2019-06-30] MEDS: ASPIRIN COATED 81 MG TABLET.EC PO SCH (10:51)
[2019-06-30] MEDS: SACUBITRIL/VALSARTAN 24 MG-26 MG TABLET PO SCH ×2 (10:51→21:54)
[2019-06-30] MEDS: ISOSORBIDE MONONITRATE 60 MG TAB.SR.24H (FP) PO SCH (10:51)
[2019-06-30] MEDS: amLODIPine BESYLATE 5 MG TABLET (FP) PO SCH (10:51)
[2019-06-30] MEDS: FLUTICASONE PROP 0.05% 16 GM NASAL SPRAY NS SCH ×2 (10:51→22:00)
[2019-06-30] MEDS: POTASSIUM CHLORIDE TABS 20 MEQ TABLET.ER (FP) PO SCH (10:51)
[2019-06-30] MEDS: APIXABAN 5 MG TABLET PO SCH ×2 (10:51→23:23)
[2019-06-30] MEDS: LIDOCAINE 5% TOPICAL PATCH TP SCH (10:52)
[2019-06-30] MEDS: POLYETHYLENE GLYCOL 3350 119 GM BTL PO SCH (10:52)
[2019-06-30] MEDS ORDERED: INSULIN (NOVOLOG) ASPART 100 UNITS/ML 10ML VIAL ONE (10:59)
[2019-06-30 13:10] LABS: BASO % 0.4 % (0-2.0); EOS % 1.8 % (0-4.5); HEMATOCRIT 26.8 % (35.4-49); HEMOGLOBIN 8.7 GM/dL (11.7-16.9); LYMPH % 6.9 % (8-40); MCH 30.3 pg (25.7-33.7); MCHC 32.5 g/dl (32.0-35.9); MEAN CELL VOLUME 93.5 fl (80-96); MEAN PLT VOLUME 8.1 fl (7.5-11.1); MONO % 5.3 % (3.8-10.2); NEUT % 85.6 % (42.8-82.8); PLATELET COUNT 303 K/MM3 (134-434); RBC 2.87 M/mm3 (4.00-5.60); RDW 15.7 % (11.9-15.9); WHITE BLOOD COUNT 8.8 K/mm3 (4.0-10.0)
[2019-06-30 13:56] LABS: INR 1.46 (0.83-1.09); PROTHROMBIN TIME (PATIENT) 17.3 SEC (9.7-13.0)
[2019-06-30 14:16] LABS: ALBUMIN 2.7 g/dl (3.4-5.0); BILIRUBIN,TOTAL 0.5 mg/dL (0.2-1); BLOOD UREA NITROGEN 18.4 mg/dL (7-18); CALCIUM 9.5 mg/dL (8.5-10.1); CREATININE 0.8 mg/dL (0.55-1.3); MAGNESIUM 1.8 mg/dL (1.8-2.4); POTASSIUM 4.1 mmol/L (3.5-5.1); TOT PROT 6.1 g/dl (6.4-8.2)
--- NOTE | 2019-06-30 21:42 | PN ---
Progress Note, Physician History of Present Illness: The pt is a 78M w/ a history of diabetes, CHF, a-fib, anemia who presents from [facility] for evaluation symptomatic anemia. He is being followed by GI will be getting a colonoscopy today. - Current Medication List Current Medications: Active Medications Acetaminophen (Tylenol -) 650 mg PO Q6H PRN PRN Reason: pain 3-10 Last Admin: 06/28/19 12:35 Dose: 650 mg Amlodipine Besylate (Norvasc -) 5 mg PO DAILY [facility] Last Admin: 06/30/19 10:51 Dose: 5 mg Apixaban (Eliquis -) 5 mg PO BID [facility] Last Admin: 06/30/19 10:51 Dose: 5 mg Aspirin (Ecotrin -) 81 mg PO DAILY [facility] Last Admin: 06/30/19 10:51 Dose: 81 mg Atorvastatin Calcium (Lipitor -) 40 mg PO HS [facility] Last Admin: 06/29/19 21:25 Dose: 40 mg Docusate Sodium (Colace -) 300 mg PO HS [facility] Last Admin: 06/29/19 21:26 Dose: 300 mg Fluticasone Propionate (Flonase -) 1 spray NS BID [facility] Last Admin: 06/30/19 10:51 Dose: 1 spray Gabapentin (Neurontin -) 300 mg PO TID [facility] Last Admin: 06/30/19 14:01 Dose: 300 mg Insulin Aspart (Novolog Vial Sliding Scale -) 1 vial SQ [facility]; Protocol Last Admin: 06/30/19 17:20 Dose: Not Given Insulin Detemir (Levemir Vial) 20 units SQ ACBK [facility] Last Admin: 06/30/19 06:01 Dose: Not Given Isosorbide Mononitrate (Imdur -) 60 mg PO DAILY [facility] Last Admin: 06/30/19 10:51 Dose: 60 mg Lidocaine (Lidoderm Patch -) 1 patch TP DAILY [facility] Last Admin: 06/30/19 10:52 Dose: 1 patch Metoprolol Succinate (Toprol Xl -) 50 mg PO DAILY [facility] Last Admin: 06/30/19 10:51 Dose: 50 mg Miscellaneous (Lidoderm Patch Removal) 1 each MC DAILY@2200 [facility] Last Admin: 06/29/19 21:26 Dose: 1 each Polyethylene Glycol (Miralax (For Daily Use) -) 17 gm PO DAILY [facility] Last Admin: 06/30/19 10:52 Dose: Not Given Potassium Chloride (K-Dur -) 40 meq PO DAILY [facility] Last Admin: 06/30/19 10:51 Dose: 40 meq Sacubitril/Valsartan (Entresto 24 Mg-26 Mg Tablet) 1 tab PO BID [facility] Last Admin: 06/30/19 10:51 Dose: 1 tab - Objective Vital Signs: Vital Signs Temperature 98.7 F 06/30/19 13:30 Pulse Rate 87 06/30/19 13:30 Respiratory Rate 18 06/30/19 13:30 Blood Pressure 117/65 06/30/19 13:30 O2 Sat by Pulse Oximetry (%) 100 06/30/19 09:23 Constitutional: Yes: Well Nourished, No Distress HENT: Yes: Atraumatic Neck: Yes: Supple Cardiovascular: Yes: Regular Rate and Rhythm Respiratory: Yes: Regular, Diminished Gastrointestinal: Yes: Normal Bowel Sounds ...Rectal Exam: Yes: Deferred Genitourinary: Yes: WNL Peripheral Pulses WNL: Yes Neurological: Yes: Alert, Oriented Psychiatric: Yes: WNL, Alert, Oriented Labs: CBC, BMP 06/30/19 11:55 06/30/19 11:55 INR, PTT INR 1.46 (0.83-1.09) H 06/30/19 11:55 Problem List - Problems (1) Symptomatic anemia Assessment/Plan: H/H stable, transfuse for hmg <8 patient for egd/colonoscopy today US abd showed gallstones w/ sludge Code(s): D64.9 - ANEMIA, UNSPECIFIED (2) Abnormal liver enzymes Assessment/Plan: monitor ast/alt Code(s): R74.8 - ABNORMAL LEVELS OF OTHER SERUM ENZYMES (3) CHF (congestive heart failure) Code(s): I50.9 - HEART FAILURE, UNSPECIFIED Qualifiers: Heart failure type: unspecified Heart failure chronicity: chronic Qualified Code(s): I50.9 - Heart failure, unspecified (4) Diabetes Assessment/Plan: Cont sliding scale w/ coverage Cont levemir Code(s): E11.9 - TYPE 2 DIABETES MELLITUS WITHOUT COMPLICATIONS Qualifiers: Diabetes mellitus type: other specified (including TAN) Diabetes mellitus 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 terminal manager insulin use: unspecified half-way insulin use status Diabetes mellitus complication status: with other specified complication Qualified Code (s): E13.69 - Other specified diabetes mellitus with other specified complication (5) Systolic CHF Assessment/Plan: cardiology following Cont toprol/imdur/norvasc Code(s): I50.20 - UNSPECIFIED SYSTOLIC (CONGESTIVE) HEART FAILURE (6) HLD (hyperlipidemia) Code(s): E78.5 - HYPERLIPIDEMIA, UNSPECIFIED (7) Hypertension Assessment/Plan: BP stable Code(s): I10 - ESSENTIAL (PRIMARY) HYPERTENSION Qualifiers: Hypertension type: unspecified Qualified Code(s): I10 - Essential (primary ) hypertension (8) Chronic combined systolic and diastolic CHF, NYHA class 4 Assessment/Plan: Cont entresto Code(s): I50.42 - CHRONIC COMBINED SYSTOLIC AND DIASTOLIC HRT FAIL (9) Chronic hypoxemic respiratory failure Code(s): J96.11 - CHRONIC RESPIRATORY FAILURE WITH HYPOXIA (10) Paroxysmal A-fib Assessment/Plan: Heart rate controlled Cont toprol Cont eliquis Code(s): I48.0 - PAROXYSMAL ATRIAL FIBRILLATION (11) Prophylactic measure Assessment/Plan: fen low salt diet monitor electrolytes prophy on eliquis Code(s): Z29.9 - ENCOUNTER FOR PROPHYLACTIC MEASURES, UNSPECIFIED Visit type - Emergency Visit Emergency Visit: Yes ED Registration Date: 06/23/19 Care time: The patient presented to the Emergency Department on the above date and was hospitalized for further evaluation of their emergent condition. - New Patient This patient is new to me today: No - Critical Care Critical Care patient: No - Discharge Referral Referred to [facility] Med P.C.: No
[2019-06-30] MEDS: ATORVASTATIN CA 40 MG TABLET (FP) PO SCH (21:48)
[2019-06-30] MEDS: ACETAMINOPHEN 325 MG TABLET (FP) PO PRN (21:48)
[2019-06-30] MEDS: DOCUSATE SODIUM 100 MG CAPSULE (FP) PO SCH (21:48)
[2019-06-30] MEDS: LIDOCAINE PATCH REMOVAL MC SCH (21:49)
[2019-07-01] VITALS: TEMP 98.5
[2019-07-01] MEDS: GABAPENTIN 300 MG CAPSULE (FP) PO SCH ×3 (06:09→21:12)
[2019-07-01] MEDS: INSULIN SLIDING SCALE (NOVOLOG) 1 VIAL SQ SCH ×2 (06:10→11:21)
[2019-07-01] MEDS: INSULIN (LEVEMIR) 100 UNITS/ML UNITS SQ SCH (06:10)
[2019-07-01 08:09] LABS: BASO % 0.4 % (0-2.0); EOS % 0.1 % (0-4.5); HEMATOCRIT 32.4 % (35.4-49); HEMOGLOBIN 10.5 GM/dL (11.7-16.9); LYMPH % 9.8 % (8-40); MCH 27.2 pg (25.7-33.7); MCHC 32.5 g/dl (32.0-35.9); MEAN CELL VOLUME 83.7 fl (80-96); MEAN PLT VOLUME 7.7 fl (7.5-11.1); MONO % 7.2 % (3.8-10.2); NEUT % 82.5 % (42.8-82.8); PLATELET COUNT 413 K/MM3 (134-434); RBC 3.87 M/mm3 (4.00-5.60); RDW 16.3 % (11.9-15.9); WHITE BLOOD COUNT 13.7 K/mm3 (4.0-10.0)
[2019-07-01 08:41] LABS: ALBUMIN 2.6 g/dl (3.4-5.0); BILIRUBIN,TOTAL 0.5 mg/dL (0.2-1); BLOOD UREA NITROGEN 20.6 mg/dL (7-18); CALCIUM 9.4 mg/dL (8.5-10.1); CREATININE 0.8 mg/dL (0.55-1.3); MAGNESIUM 1.7 mg/dL (1.8-2.4); POTASSIUM 4.4 mmol/L (3.5-5.1)
[2019-07-01] MEDS: POTASSIUM CHLORIDE TABS 20 MEQ TABLET.ER (FP) PO SCH (09:17)
[2019-07-01] MEDS: amLODIPine BESYLATE 5 MG TABLET (FP) PO SCH (09:18)
[2019-07-01] MEDS: APIXABAN 5 MG TABLET PO SCH ×2 (09:18→21:11)
[2019-07-01] MEDS: ISOSORBIDE MONONITRATE 60 MG TAB.SR.24H (FP) PO SCH (09:18)
[2019-07-01] MEDS: SACUBITRIL/VALSARTAN 24 MG-26 MG TABLET PO SCH ×2 (09:18→21:12)
[2019-07-01] MEDS: ASPIRIN COATED 81 MG TABLET.EC PO SCH (09:18)
[2019-07-01] MEDS: FLUTICASONE PROP 0.05% 16 GM NASAL SPRAY NS SCH ×2 (09:19→21:11)
[2019-07-01] MEDS: LIDOCAINE 5% TOPICAL PATCH TP SCH (09:19)
[2019-07-01] MEDS: POLYETHYLENE GLYCOL 3350 119 GM BTL PO SCH (09:21)
[2019-07-01] MEDS ORDERED: MAGNESIUM OXIDE 400 MG TABLET (FP) PO ONE (11:15)
[2019-07-01 12:07] VITALS: BP 122/60; PULSE 75
--- NOTE | 2019-07-01 14:25 | PN ---
Progress Note (short form) - Note Progress Note: EGD and coloonoscopy fail to show any active bleeding. Patient is on Eliquis, there were no attempts to remove a small rectal polyp. He was made aware of the findings and agrees to follow up for flexible sigmoidoscopy with removal of the rectal polyp
--- NOTE | 2019-07-01 15:27 | DS ---
Physical Exam: SUBJECTIVE: Patient seen and examined OBJECTIVE: Vital Signs Period Temp Pulse Resp BP Sys/[place] Pulse Ox Last 24 Hr 98.5 F 75-83 19-20 106-122/60-64 99-100 PHYSICAL EXAM GENERAL: The patient is awake, alert, and fully oriented, in no acute distress. HEAD: Normal with no signs of trauma. EYES: PERRL, extraocular movements intact, sclera anicteric, conjunctiva clear. ENT: Ears normal, nares patent, oropharynx clear without exudates, moist mucous membranes. NECK: Trachea midline, full range of motion, supple. LUNGS: Breath sounds equal, clear to auscultation bilaterally, no wheezes, no crackles, no accessory muscle use. HEART: Regular rate and rhythm, S1, S2 without murmur, rub or gallop. ABDOMEN: Soft, nontender, nondistended, normoactive bowel sounds, no guarding, no rebound, no hepatosplenomegaly, no masses. EXTREMITIES: 2+ pulses, warm, well-perfused, no edema. NEUROLOGICAL: Cranial nerves II through XII grossly intact. Normal speech, gait not observed. PSYCH: Normal mood, normal affect. SKIN: Warm, dry, normal turgor, no rashes or lesions noted. LABS Laboratory Results - last 24 hr 06/30/19 06/30/19 07/01/19 17:24 21:58 06:02 WBC RBC Hgb Hct MCV MCH MCHC RDW Plt Count MPV Absolute Neuts (auto) Neutrophils % Lymphocytes % Monocytes % Eosinophils % Basophils % Nucleated RBC % Sodium Potassium Chloride Carbon Dioxide Anion Gap BUN Creatinine Est GFR (CKD-EPI)AfAm Est GFR (CKD-EPI)NonAf POC Glucometer 123 126 101 Random Glucose Calcium Magnesium Total Bilirubin AST ALT Alkaline Phosphatase Total Protein Albumin 07/01/19 07/01/19 07/01/19 07:20 07:35 11:18 WBC 13.7 H RBC 3.87 L Hgb 10.5 L Hct 32.4 L D MCV 83.7 D MCH 27.2 D MCHC 32.5 RDW 16.3 H Plt Count 413 D MPV 7.7 Absolute Neuts (auto) 11.3 H Neutrophils % 82.5 Lymphocytes % 9.8 D Monocytes % 7.2 Eosinophils % 0.1 D Basophils % 0.4 Nucleated RBC % 0 Sodium 143 Potassium 4.4 Chloride 107 Carbon Dioxide 30 Anion Gap 6 L BUN 20.6 H Creatinine 0.8 Est GFR (CKD-EPI)AfAm 99.87 Est GFR (CKD-EPI)NonAf 86.17 POC Glucometer 109 Random Glucose 88 Calcium 9.4 Magnesium 1.7 L Total Bilirubin 0.5 AST 10 L ALT 11 L Alkaline Phosphatase 134 H Total Protein 6.0 L Albumin 2.6 L HOSPITAL COURSE: Date of Admission:06/23/19 Date of Discharge: 07/01/19 Discharge Summary Reason For Visit: DM ANEMIA AFIB Current Active Problems Abnormal liver enzymes (Acute) CHF (congestive heart failure) (Acute) Diabetes (Acute) Gallstones (Acute) Hypertension (Acute) Prophylactic measure (Acute) Symptomatic anemia (Acute) Systolic CHF (Acute) Condition: Good - Instructions Diet, Activity, Other Instructions: Mr. Peguero: You were admitted for symptomatic anemia and you had a colonosocopy on 2018. Please follow up with Dr. Elizabeth for a follow up and a possibleflexible sigmoidoscopy for possible removal of the rectal polyp. Next steps: Please follow up with Dr. Elizabeth by calling his office to make an appointment Please follow up with Dr. Garcia by calling his office You were also found to have an enlarged prostate. A referral to a urologist has been made for you. Thank you for allowing us to care for you. Referrals: Edwar Hill MD., MD [Staff Physician] - (urologist. please make an appointment for enlarged prostate) Denis Elizabeth MD [Staff Physician] - Kong Garcia MD [Staff Physician] - Disposition: HOME - Home Medications Comprehensive Discharge Medication List: Ambulatory Orders Alendronate Na [Fosamax (Weekly)] 70 mg PO WEEKLY 01/29/17 Atorvastatin Calcium 40 mg PO DAILY 01/29/17 Isosorbide Mononitrate [Imdur -] 60 mg PO DAILY 01/29/17 Sacubitril/Valsartan [Entresto 24 mg-26 mg Tablet] 1 tab PO BID 01/29/17 Aspirin Coated [Ecotrin -] 81 mg PO DAILY tablet.ec 11/05/17 Amlodipine Besylate 5 mg PO DAILY 05/04/18 Metoprolol Succinate 50 mg PO DAILY 05/04/18 Acetaminophen [Tylenol .Regular Strength -] 650 mg PO Q6H PRN tablet 03/07/19 Apixaban [Eliquis -] 5 mg PO BID tablet 03/07/19 Digoxin [Lanoxin -] 0.125 mg PO DAILY tablet 03/07/19 Furosemide [Lasix -] 80 mg PO DAILY tablet 03/07/19 Insulin Sliding Scale [Novolog Vial Sliding Scale -] 1 vial SQ ACHS units 03/07 Potassium Chloride [K-Dur -] 40 meq PO DAILY tablet.er 03/07/19 Docusate Sodium [Colace] 300 mg PO HS 06/23/19 Dulcolax 10 mg [place] DAILY PRN 06/23/19 Gabapentin 300 mg PO TID 06/23/19 Insulin Glargine,Hum.rec.anlog [Basaglar Kwikpen U-100] 20 unit SQ DAILY Iprat-Albut 0.5-3(2.5) mg/3 ml 3 ml NEB QID 06/23/19 Metolazone 2.5 mg PO ASDIR 06/23/19 Milk of Magnesia 5 5ml PO DAILY PRN 06/23/19 Oxycodone-Acetaminophen 10-325 10 mg PO Q8H PRN 06/23/19 Polyethylene Glycol 3350 [Miralax 119 gm Btl -] 17 gm PO DAILY 06/23/19 Tamsulosin HCl [Flomax] 0.4 mg PO DAILY 06/23/19 Zinc Oxide 20% Topical Oint 1 appful DAILY PRN 06/23/19 Lidocaine 5% Patch [Lidoderm -] 1 patch TP DAILY patch 07/01/19 Problem List - Problems (1) Symptomatic anemia Code(s): D64.9 - ANEMIA, UNSPECIFIED (2) Abnormal liver enzymes Code(s): R74.8 - ABNORMAL LEVELS OF OTHER SERUM ENZYMES (3) CHF (congestive heart failure) Code(s): I50.9 - HEART FAILURE, UNSPECIFIED Qualifiers: Heart failure type: unspecified Heart failure chronicity: chronic Qualified Code(s): I50.9 - Heart failure, unspecified (4) Diabetes Code(s): E11.9 - TYPE 2 DIABETES MELLITUS WITHOUT COMPLICATIONS Qualifiers: Diabetes mellitus type: other specified (including TAN) Diabetes mellitus salvage determiner insulin use: unspecified salvage determiner insulin use status Diabetes mellitus complication status: with other specified complication Qualified Code (s): E13.69 - Other specified diabetes mellitus with other specified complication (5) Systolic CHF Code(s): I50.20 - UNSPECIFIED SYSTOLIC (CONGESTIVE) HEART FAILURE (6) HLD (hyperlipidemia) Code(s): E78.5 - HYPERLIPIDEMIA, UNSPECIFIED (7) Hypertension Code(s): I10 - ESSENTIAL (PRIMARY) HYPERTENSION Qualifiers: Hypertension type: unspecified Qualified Code(s): I10 - Essential (primary ) hypertension (8) Chronic combined systolic and diastolic CHF, NYHA class 4 Code(s): I50.42 - CHRONIC COMBINED SYSTOLIC AND DIASTOLIC HRT FAIL (9) Chronic hypoxemic respiratory failure Code(s): J96.11 - CHRONIC RESPIRATORY FAILURE WITH HYPOXIA (10) Paroxysmal A-fib Code(s): I48.0 - PAROXYSMAL ATRIAL FIBRILLATION (11) Prophylactic measure Code(s): Z29.9 - ENCOUNTER FOR PROPHYLACTIC MEASURES, UNSPECIFIED - Discharge Referral Referred to [facility] No
[2019-07-01] MEDS ORDERED: PT OWN MED DRAWER 7, Y5N ONE (21:07)
[2019-07-01] MEDS: DOCUSATE SODIUM 100 MG CAPSULE (FP) PO SCH (21:11)
[2019-07-01] MEDS: ATORVASTATIN CA 40 MG TABLET (FP) PO SCH (21:12)
[2019-07-01] MEDS: LIDOCAINE PATCH REMOVAL MC SCH (21:12)
== END 2019-07-01 21:41 | DRG 811 ==
LOC: JER 11:34 → JERBED 14:44 → J6S 18:16
PROVIDERS: ADMIT Internal Medicine; ATTEND Nurse Practitioner Family
PROC: 30233N1 Transfusion of Nonautologous Red Blood Cells into Peripheral Vein, Percutaneous Approach (ICD-10-PCS; principal; 2019-06-23)
PROC: 0DJ08ZZ Inspection of Upper Intestinal Tract, Via Natural or Artificial Opening Endoscopic (ICD-10-PCS; 2019-06-30)
PROC: 0DJD8ZZ Inspection of Lower Intestinal Tract, Via Natural or Artificial Opening Endoscopic (ICD-10-PCS; 2019-06-30)
DX: D64.9 Anemia, unspecified (principal); I50.43 Acute on chronic combined systolic (congestive) and diastolic (congestive) heart failure; I50.42 Chronic combined systolic (congestive) and diastolic (congestive) heart failure; J96.11 Chronic respiratory failure with hypoxia; I25.10 Atherosclerotic heart disease of native coronary artery without angina pectoris; I27.20 Pulmonary hypertension, unspecified; E11.9 Type 2 diabetes mellitus without complications; K74.60 Unspecified cirrhosis of liver; G47.33 Obstructive sleep apnea (adult) (pediatric); C61 Malignant neoplasm of prostate; D75.89 Other specified diseases of blood and blood-forming organs; R13.10 Dysphagia, unspecified; I48.0 Paroxysmal atrial fibrillation; E78.5 Hyperlipidemia, unspecified; N40.0 Benign prostatic hyperplasia without lower urinary tract symptoms; K44.9 Diaphragmatic hernia without obstruction or gangrene
CPT/HCPCS: 36415; 36430; 36511; 71045-TC-FY; 71250-TC; 73700-TC-RT; 74181-TC; 76705-TC; 80053; 80061; 81003; 82272; 82607; 82746; 82784; 82962; 82977; 83036; 83615; 83721; 83735; 83883; 84153; 84155; 84165; 84443; 85025; 85044; 85610; 86850; 86900; 86901; 86922; 87086; 93005; 93010; 93306-TC; 99284-25; P9038; P9058

== ENCOUNTER 2019-08-31 10:33 | Inpatient (IN) | payer OTHER ==
[2019-08-31 12:42] LABS: BASO % 0.3 % (0-2.0); EOS % 0.1 % (0-4.5); HEMATOCRIT 28.8 % (35.4-49); HEMOGLOBIN 9.2 GM/dL (11.7-16.9); LYMPH % 2.7 % (8-40); MCH 30.2 pg (25.7-33.7); MCHC 31.9 g/dl (32.0-35.9); MEAN CELL VOLUME 94.4 fl (80-96); MEAN PLT VOLUME 8.3 fl (7.5-11.1); MONO % 5.6 % (3.8-10.2); NEUT % 91.3 % (42.8-82.8); PLATELET COUNT 195 K/MM3 (134-434); RBC 3.05 M/mm3 (4.00-5.60); RDW 15.7 % (11.9-15.9); WHITE BLOOD COUNT 11.5 K/mm3 (4.0-10.0)
[2019-08-31 12:58] LABS: INR 1.53 (0.83-1.09); PROTHROMBIN TIME (PATIENT) 18.1 SEC (9.7-13.0)
[2019-08-31 13:21] LABS: ALBUMIN 3.6 g/dl (3.4-5.0); BILIRUBIN,TOTAL 0.7 mg/dL (0.2-1); BLOOD UREA NITROGEN 35.3 mg/dL (7-18); CALCIUM 9.3 mg/dL (8.5-10.1); CREATININE 1.9 mg/dL (0.55-1.3); POTASSIUM 3.9 mmol/L (3.5-5.1); TOT PROT 6.6 g/dl (6.4-8.2)
[2019-08-31 13:33] LABS: ANISOCYTOSIS 0; MACROCYTOSIS 0; PLATELET ESTIMATE NORMAL
[2019-08-31 14:46] LABS: PH,URINE >= 9.0 (5.0-8.0); URINE BILIRUBIN 3+ (NEGATIVE); URINE GLUCOSE (UA) Trace (NEGATIVE); URINE KETONE 2+ (NEGATIVE); URINE LEUK ESTERASE 3+ (NEGATIVE); URINE NITRITE Positive (NEGATIVE); URINE PROTEIN 3+ (NEGATIVE); URINE UROBILINOGEN 4.0 E.U/dl mg/dL (0.2-1.0)
[2019-08-31 14:47] LABS: URINE APPEARANCE BLOODY; URINE COLOR RED
[2019-08-31] MEDS ORDERED: ONDANSETRON 4 MG/2 ML VIAL ONE (14:52)
[2019-08-31 14:53] LABS: EPI CELLS 0.3 /HPF (0-5/HPF); URINE RBC 2798.9 /hpf (0-4); URINE WBC 341.1 /hpf (0-5)
--- NOTE | 2019-08-31 14:53 | PDOC ---
Documentation entered by Chioma Frazier SCRIBE, acting as scribe for Jimenez Ramirez MD. Jimenez Ramirez MD: This documentation has been prepared by the Karin cardona Sammi, SCRIBE, under my direction and personally reviewed by me in its entirety. I confirm that the documentation accurately reflects all work, treatment, procedures, and medical decision making performed by me. History of Present Illness - General Chief Complaint: Hematuria Stated Complaint: BLOOD IN Urine Time Seen by Provider: 08/31/19 11:26 - History of Present Illness Initial Comments: 08/31/19 11:52 The patient is a 78 year old male with history of diabetes, CHF, atrial fibrillation anemia who presents to the emergency department for evaluation of dysuria, hematuria, and urinary Retention since last night. Patient denies fever /chills/nausea/vomiting/melena.He comes from [facility] where a thomas was placed this morning. Urologist: Negin Friedman Past History - Past Medical History Allergies/Adverse Reactions: Allergies Allergy/AdvReac Type Severity Reaction Status Date / Time No Known Allergies Allergy Verified 08/31/19 10:49 Home Medications: Ambulatory Orders Alendronate Na [Fosamax (Weekly)] 70 mg PO WEEKLY 01/29/17 Atorvastatin Calcium 40 mg PO DAILY 01/29/17 Isosorbide Mononitrate [Imdur -] 60 mg PO DAILY 01/29/17 Sacubitril/Valsartan [Entresto 24 mg-26 mg Tablet] 1 tab PO BID 01/29/17 Aspirin Coated [Ecotrin -] 81 mg PO DAILY tablet.ec 11/05/17 Amlodipine Besylate 5 mg PO DAILY 05/04/18 Acetaminophen [Tylenol .Regular Strength -] 650 mg PO Q6H PRN tablet 03/07/19 Apixaban [Eliquis -] 5 mg PO BID tablet 03/07/19 Furosemide [Lasix -] 80 mg PO DAILY tablet 03/07/19 Insulin Sliding Scale [Novolog Vial Sliding Scale -] 1 vial SQ ACHS units 03/07 Potassium Chloride [K-Dur -] 40 meq PO DAILY tablet.er 03/07/19 Docusate Sodium [Colace] 300 mg PO HS 06/23/19 Dulcolax 10 mg [place] DAILY PRN 06/23/19 Gabapentin 300 mg PO TID 06/23/19 Insulin Glargine,Hum.rec.anlog [Basaglar Kwikpen U-100] 20 unit SQ DAILY Iprat-Albut 0.5-3(2.5) mg/3 ml 3 ml NEB QID 06/23/19 Metolazone 2.5 mg PO ASDIR 06/23/19 Milk of Magnesia 5 5ml PO DAILY PRN 06/23/19 Oxycodone-Acetaminophen 10-325 10 mg PO Q8H PRN 06/23/19 Polyethylene Glycol 3350 [Miralax 119 gm Btl -] 17 gm PO DAILY 06/23/19 Tamsulosin HCl [Flomax] 0.4 mg PO DAILY 06/23/19 Zinc Oxide 20% Topical Oint 1 appful DAILY PRN 06/23/19 Lidocaine 5% Patch [Lidoderm -] 1 patch TP DAILY patch 07/01/19 Digoxin [Lanoxin -] 125 mcg PO DAILY 08/31/19 Mag Hydrox/Al Hydrox/Simeth [Mylanta Oral Suspension -] 30 ml PO QID 08/31/19 Melatonin 3 mg PO HS 08/31/19 Metoprolol Tartrate 25 mg PO BID 08/31/19 Multivitamin [Multiple Vitamins] 1 each PO DAILY 08/31/19 Anemia: Yes Asthma: No Cancer: Yes (prostate) Cardiac Disorders: Yes (cardiomyopathy,cad) CVA: No COPD: Yes (3L) CHF: Yes Dementia: No Diabetes: Yes GI Disorders: No Disorders: Yes (prostate CA) HTN: Yes Hypercholesterolemia: Yes Liver Disease: No Seizures: No Thyroid Disease: No - Surgical History Abdominal Surgery: No Appendectomy: No Cardiac Surgery: Yes (STENT PLACEMENT) Cholecystectomy: No Lung Surgery: No Neurologic Surgery: No Orthopedic Surgery: No - Immunization History Immunization Up to Date: No - Psycho Social/Smoking Cessation Hx Smoking Status: No Smoking History: Never smoked Have you smoked in the past 12 months: No Number of Cigarettes Smoked Daily: 0 Information on smoking cessation initiated: No Hx Alcohol Use: No Drug/Substance Use Hx: No Substance Use Type: None Hx Substance Use Treatment: No Review of Systems - Review of Systems Comments:: 08/31/19 11:54 CONSTITUTIONAL: No fever, no chills, no fatigue CARDIOVASCULAR: No chest pain, no palpitations RESPIRATORY: No cough, no SOB GI: No abdominal pain, no nausea, no vomiting, no constipation, no diarrhea GENITOURINARY: +dysuria +hematuria +urinary incontinence MUSKULOSKELETAL: No backpain, no joint pain, no myalgias SKIN: No rash NEURO: No headache *Physical Exam - Vital Signs Last Vital Signs Temp Pulse Resp BP Pulse Ox 97.7 F 100 H 18 138/61 100 08/31/19 10:46 08/31/19 10:46 08/31/19 10:46 08/31/19 10:46 08/31/19 10:46 - Physical Exam Comments: 08/31/19 14:30 CONSTITUTIONAL: Well-appearing; well-nourished; in no apparent distress NECK: Supple; non-tender; no cervical lymphadenopathy CARD: Irregularly irregular; no murmurs, rubs, or gallops RESP: Normal chest excursion with respiration; breath sounds clear and equal bilaterally; no wheezes, rhonchi, or rales ABD: +distended bladder palpable up to the umbilicus with tenderness. EXT: Normal ROM in all four extremities; non-tender to palpation; distal pulses intact SKIN: Warm, dry, no rash NEURO: No focal neurological deficiencies. 08/31/19 14:49 ED Treatment Course - LABORATORY CBC & Chemistry Diagram: 08/31/19 12:31 08/31/19 12:31 - ADDITIONAL ORDERS Additional order review: Laboratory Results 08/31/19 08/31/19 08/31/19 12:39 12:31 12:31 PT with INR 18.10 H INR 1.53 H Sodium Potassium Chloride Carbon Dioxide Anion Gap BUN Creatinine Est GFR (CKD-EPI)AfAm Est GFR (CKD-EPI)NonAf Random Glucose Calcium Total Bilirubin AST ALT Alkaline Phosphatase Total Protein Albumin Urine Color Red Urine Appearance Bloody Urine pH >= 9.0 H Ur Specific [place] 1.015 Urine Protein 3+ H Urine Glucose (UA) Trace Urine Ketones 2+ H Urine Blood 3+ H Urine Nitrite Positive Urine Bilirubin 3+ H Urine Urobilinogen 4.0 e.u/dl Ur Leukocyte Esterase 3+ H Blood Type O POSITIVE Antibody Screen Negative 08/31/19 12:31 PT with INR INR Sodium 138 Potassium 3.9 Chloride 99 Carbon Dioxide 33 H Anion Gap 5 L BUN 35.3 H Creatinine 1.9 H Est GFR (CKD-EPI)AfAm 38.55 Est GFR (CKD-EPI)NonAf 33.26 Random Glucose 157 H Calcium 9.3 Total Bilirubin 0.7 AST 11 L ALT 19 Alkaline Phosphatase 153 H Total Protein 6.6 Albumin 3.6 Urine Color Urine Appearance Urine pH Ur Specific [place] Urine Protein Urine Glucose (UA) Urine Ketones Urine Blood Urine Nitrite Urine Bilirubin Urine Urobilinogen Ur Leukocyte Esterase Blood Type Antibody Screen 08/31/19 12:31 RBC 3.05 L MCV 94.4 D MCHC 31.9 L RDW 15.7 MPV 8.3 Neutrophils % 91.3 H Lymphocytes % 2.7 L D Monocytes % 5.6 Eosinophils % 0.1 Basophils % 0.3 - RADIOLOGY Radiology Studies Ordered: Category Date Time Status CHEST X-RAY PORTABLE* [RAD] Stat Radiology 08/31/19 13:09 Completed Medical Decision Making - Medical Decision Making 08/31/19 14:49 Patient is a 78-year-old male with multiple comorbidities who presents to the ER of acute urinary retention and gross hematuria. I placed a 24-gauge three- way Thomas catheter with CBI. Hemoglobin is noted to be 9.2 and no indication for packed RBC transfusion is present at this time. Will hold aspirin and Eliquis. Will consult urology. Will admit. Discharge - Discharge Information Problems reviewed: Yes Clinical Impression/Diagnosis: Gross hematuria, Acute urinary retention Condition: Fair - Admission Yes - Follow up/Referral Referrals: Jaz Mendieta MD [Primary Care Provider] - - Patient Discharge Instructions - Post Discharge Activity
[2019-08-31 14:54] LABS: HYALINE CASTS 2.03 /lpf (0-8); URINE BACTERIA 758.6 /hpf (NEGATIVE)
[2019-08-31] MEDS ORDERED: ONDANSETRON 4 MG/2 ML VIAL IVPUSH ONE (15:08)
[2019-08-31] MEDS ORDERED: SODIUM CHLORIDE 500 ML IV STA (15:08)
--- NOTE | 2019-08-31 15:14 | EKG ---
Test Reason : Blood Pressure : / mmHG Vent. Rate : 097 BPM Atrial Rate : 097 BPM P-R Int : 110 ms QRS Dur : 166 ms QT Int : 416 ms P-R-T Axes : 036 -70 021 degrees QTc Int : 528 ms SINUS RHYTHM WITH SHORT CA WITH PREMATURE ATRIAL COMPLEXES LEFT AXIS DEVIATION NON-SPECIFIC INTRA-VENTRICULAR CONDUCTION BLOCK ABNORMAL ECG WHEN COMPARED WITH ECG OF 24-JUN-2019 10:05, SINUS RHYTHM HAS REPLACED ATRIAL FIBRILLATION CRITERIA FOR SEPTAL INFARCT ARE NO LONGER PRESENT T WAVE AMPLITUDE HAS INCREASED IN ANTERIOR LEADS QT HAS LENGTHENED Confirmed by XIAO TORRES, HARSH ([id number]) on 08/31/2019 3:13:42 PM Referred By: Confirmed By:HARSH HAGEN MD
--- NOTE | 2019-08-31 16:06 | HP ---
Admitting History and Physical - Primary Care Physician PCP: Jaz Mendieta - Admission Chief Complaint: Hematuria History of Present Illness: Patient is a 78 y/o male with past medical history of DM, CHF, Afib, Anemia. Patient presented to ER from [facility] for hematuria. Last night patient developed urinary retention, dysuria, and hematuria. Denies fever, chills but states having lower abdominal pain. Iqbal catheter was placed in ER and CBI started. History Source: Patient Limitations to Obtaining History: No Limitations - Past Medical History Cardiovascular: Yes: AFIB, CAD, CHF (low normal LVEF on 02/25 ECHO), HTN, Hyperlipdemia, Pulmonary Hypertension Pulmonary: Yes: COPD, O2 Dependent, Other (pulmonary htn) Renal/: Yes: BPH Heme/Onc: Yes: Anemia Endocrine: Yes: Diabetes Mellitus - Past Surgical History Past Surgical History: Yes: Stent - Smoking History Smoking history: Never smoked Have you smoked in the past 12 months: No Aproximately how many cigarettes per day: 0 - Alcohol/Substance Use Hx Alcohol Use: No History of Substance Use: reports: None - Social History Usual Living Arrangement: Yes: Alf ADL: Independent History of Recent Travel: No Home Medications - Allergies Allergies/Adverse Reactions: Allergies Allergy/AdvReac Type Severity Reaction Status Date / Time No Known Allergies Allergy Verified 08/31/19 10:49 - Home Medications Home Medications: Ambulatory Orders Alendronate Na [Fosamax (Weekly)] 70 mg PO WEEKLY 01/29/17 Atorvastatin Calcium 40 mg PO DAILY 01/29/17 Isosorbide Mononitrate [Imdur -] 60 mg PO DAILY 01/29/17 Sacubitril/Valsartan [Entresto 24 mg-26 mg Tablet] 1 tab PO BID 01/29/17 Aspirin Coated [Ecotrin -] 81 mg PO DAILY tablet.ec 11/05/17 Amlodipine Besylate 5 mg PO DAILY 05/04/18 Acetaminophen [Tylenol .Regular Strength -] 650 mg PO Q6H PRN tablet 03/07/19 Apixaban [Eliquis -] 5 mg PO BID tablet 03/07/19 Furosemide [Lasix -] 80 mg PO DAILY tablet 03/07/19 Insulin Sliding Scale [Novolog Vial Sliding Scale -] 1 vial SQ ACHS units 03/07 Potassium Chloride [K-Dur -] 40 meq PO DAILY tablet.er 03/07/19 Docusate Sodium [Colace] 300 mg PO HS 06/23/19 Dulcolax 10 mg [place] DAILY PRN 06/23/19 Gabapentin 300 mg PO TID 06/23/19 Insulin Glargine,Hum.rec.anlog [Basaglar Kwikpen U-100] 20 unit SQ DAILY Iprat-Albut 0.5-3(2.5) mg/3 ml 3 ml NEB QID 06/23/19 Metolazone 2.5 mg PO ASDIR 06/23/19 Milk of Magnesia 5 5ml PO DAILY PRN 06/23/19 Oxycodone-Acetaminophen 10-325 10 mg PO Q8H PRN 06/23/19 Polyethylene Glycol 3350 [Miralax 119 gm Btl -] 17 gm PO DAILY 06/23/19 Tamsulosin HCl [Flomax] 0.4 mg PO DAILY 06/23/19 Zinc Oxide 20% Topical Oint 1 appful DAILY PRN 06/23/19 Lidocaine 5% Patch [Lidoderm -] 1 patch TP DAILY patch 07/01/19 Digoxin [Lanoxin -] 125 mcg PO DAILY 08/31/19 Mag Hydrox/Al Hydrox/Simeth [Mylanta Oral Suspension -] 30 ml PO QID 08/31/19 Melatonin 3 mg PO HS 08/31/19 Metoprolol Tartrate 25 mg PO BID 08/31/19 Multivitamin [Multiple Vitamins] 1 each PO DAILY 08/31/19 Review of Systems - Review of Systems Constitutional: reports: No Symptoms Eyes: reports: No Symptoms HENT: reports: No Symptoms Neck: reports: No Symptoms Cardiovascular: reports: No Symptoms Respiratory: reports: No Symptoms Gastrointestinal: reports: Abdominal Pain (lower abdomen) Genitourinary: reports: Dysuria, Hematuria, Other (retention) Breasts: reports: No Symptoms Reported Musculoskeletal: reports: No Symptoms Integumentary: reports: No Symptoms Neurological: reports: No Symptoms Endocrine: reports: No Symptoms Hematology/Lymphatic: reports: No Symptoms Psychiatric: reports: No Symptoms Physical Examination Vital Signs: Vital Signs Temperature 97.7 F 08/31/19 10:46 Pulse Rate 93 H 08/31/19 15:01 Respiratory Rate 18 08/31/19 15:01 Blood Pressure 105/54 L 08/31/19 15:01 O2 Sat by Pulse Oximetry (%) 100 08/31/19 15:01 Constitutional: Yes: No Distress, Calm Eyes: Yes: Conjunctiva Clear HENT: Yes: Atraumatic Cardiovascular: Yes: Regular Rate and Rhythm Respiratory: Yes: Regular, CTA Bilaterally Gastrointestinal: Yes: Normal Bowel Sounds, Soft, Tenderness (diffuse) Renal/: Yes: Iqbal Present, Hematuria Musculoskeletal: Yes: Muscle Weakness Extremities: Yes: WNL Edema: No Neurological: Yes: Alert, Oriented Psychiatric: Yes: Alert, Oriented Labs: CBC, BMP 08/31/19 12:31 08/31/19 12:31 Problem List - Problems (1) Acute urinary retention Assessment/Plan: -Urology consult -FC -CBI Code(s): R33.8 - OTHER RETENTION OF URINE (2) Gross hematuria Assessment/Plan: -Urology consult -CBI -monitor Hg daily -Eliquis held Code(s): R31.0 - GROSS HEMATURIA (3) Abdominal discomfort Assessment/Plan: -Abdominal US Code(s): R10.9 - UNSPECIFIED ABDOMINAL PAIN (4) Anemia Assessment/Plan: -Hg 9.2 -monitor Hg daily -transfuse for Hg <8.0 Code(s): D64.9 - ANEMIA, UNSPECIFIED (5) Atrial fibrillation Assessment/Plan: -Digoxin, Metoprolol -Eliquis held due to hematuria Code(s): I48.91 - UNSPECIFIED ATRIAL FIBRILLATION (6) BPH (benign prostatic hyperplasia) Assessment/Plan: -Tamsulosin -Urology consult Code(s): N40.0 - BENIGN PROSTATIC HYPERPLASIA WITHOUT LOWER URINRY TRACT SYMP (7) CHF (congestive heart failure) Assessment/Plan: -Furosemide -daily weights -strict I&O -fluid restriction Code(s): I50.9 - HEART FAILURE, UNSPECIFIED Qualifiers: Heart failure type: unspecified Heart failure chronicity: chronic Qualified Code(s): I50.9 - Heart failure, unspecified (8) Diabetes Assessment/Plan: -BGM ACHS -ISS -HgA1c Code(s): E11.9 - TYPE 2 DIABETES MELLITUS WITHOUT COMPLICATIONS Qualifiers: Diabetes mellitus type: other specified (including TAN) Diabetes mellitus skilled nursing insulin use: unspecified buttermaker insulin use status Diabetes mellitus complication status: with other specified complication Qualified Code (s): E13.69 - Other specified diabetes mellitus with other specified complication (9) HLD (hyperlipidemia) Assessment/Plan: -Atorvastatin Code(s): E78.5 - HYPERLIPIDEMIA, UNSPECIFIED (10) Hypertension Assessment/Plan: -Amlodipine, Imdur Code(s): I10 - ESSENTIAL (PRIMARY) HYPERTENSION Qualifiers: Hypertension type: unspecified Qualified Code(s): I10 - Essential (primary ) hypertension (11) BEKA (acute kidney injury) Assessment/Plan: -Renal consult -BUN/Cr 35.3/1.9 -monitor renal function Code(s): N17.9 - ACUTE KIDNEY FAILURE, UNSPECIFIED (12) Leukocytosis Assessment/Plan: -ID consult -WBC 11.5 -UA shows 3+ leuks, 3+ bilirubin, 3+ protein, 2+ ketones, 3+ blood -UC pending -afebrile Code(s): D72.829 - ELEVATED WHITE BLOOD CELL COUNT, UNSPECIFIED Assessment/Plan see problem list
[2019-08-31] MEDS: INSULIN SLIDING SCALE (NOVOLOG) 1 VIAL SQ SCH ×2 (16:33→23:48)
[2019-08-31] MEDS ORDERED: CEFTRIAXONE 1 GM/50 ML BAG ONE (17:33)
[2019-08-31] MEDS: CEFTRIAXONE 1,000 MG in DEXTROSE 5%-WATER - 50 ML IVPB ONE ×2 (17:38→19:16)
[2019-08-31] MEDS ORDERED: cefTRIAXone SODIUM 1 GM VIAL ONE (19:01)
[2019-08-31] MEDS ORDERED: DEXTROSE 5%-WATER - 50 ML IVPB ONE (19:02)
[2019-08-31] MEDS: CEFTRIAXONE 1 GM in DEXTROSE 5%-WATER - 50 ML IVPB SCH (19:15)
[2019-08-31] MEDS: ACETAMINOPHEN 325 MG TABLET (FP) PO PRN (19:16)
[2019-08-31] MEDS: MAG HYDROX/AL HYDROX/SIMETH 30 ML UNIT-DOSE CUP PO PRN (19:17)
[2019-08-31] MEDS: ALBUTEROL SO4 2.5/IPRATROPIUM 0.5 INH SOL 3 ML VIAL.NEB. NEB SCH (20:44)
[2019-08-31] MEDS ORDERED: SACUBITRIL/VALSARTAN 24 MG-26 MG TABLET PO SCH (22:00)
--- NOTE | 2019-08-31 22:58 | CON.CARD ---
Consult Consult Specialty:: Cardiology - History of Present Illness History of Present Illness: The patient is a 78 year old male with history of diabetes, CHF, atrial fibrillation anemia who presents to the emergency department for evaluation of dysuria, hematuria, and urinary Retention since last night. Patient denies fever /chills/nausea/vomiting/melena.He comes from [facility] where a thomas was placed this morning. - History Source History Provided By: Medical Record - Past Medical History Cardio/Vascular: Yes: AFIB, CAD, CHF (low normal LVEF on 02/25 ECHO), HTN, Hyperlipdemia, Pulmonary Hypertension Pulmonary: Yes: COPD, O2 Dependent, Other (pulmonary htn) Renal/: Yes: BPH Endocrine: Yes: Diabetes Mellitus - Past Surgical History Past Surgical History: Yes: Stent - Alcohol/Substance Use Hx Alcohol Use: No History of Substance Use: reports: None - Smoking History Smoking history: Never smoked Have you smoked in the past 12 months: No Aproximately how many cigarettes per day: 0 - Social History Usual Living Arrangement: With Spouse ADL: Independent History of Recent Travel: No Home Medications - Allergies Allergies/Adverse Reactions: Allergies Allergy/AdvReac Type Severity Reaction Status Date / Time No Known Allergies Allergy Verified 08/31/19 10:49 - Home Medications Home Medications: Ambulatory Orders Alendronate Na [Fosamax (Weekly)] 70 mg PO WEEKLY 01/29/17 Atorvastatin Calcium 40 mg PO DAILY 01/29/17 Isosorbide Mononitrate [Imdur -] 60 mg PO DAILY 01/29/17 Sacubitril/Valsartan [Entresto 24 mg-26 mg Tablet] 1 tab PO BID 01/29/17 Aspirin Coated [Ecotrin -] 81 mg PO DAILY tablet.ec 11/05/17 Amlodipine Besylate 5 mg PO DAILY 05/04/18 Acetaminophen [Tylenol .Regular Strength -] 650 mg PO Q6H PRN tablet 03/07/19 Apixaban [Eliquis -] 5 mg PO BID tablet 03/07/19 Furosemide [Lasix -] 80 mg PO DAILY tablet 03/07/19 Insulin Sliding Scale [Novolog Vial Sliding Scale -] 1 vial SQ ACHS units 03/07 Potassium Chloride [K-Dur -] 40 meq PO DAILY tablet.er 03/07/19 Docusate Sodium [Colace] 300 mg PO HS 06/23/19 Dulcolax 10 mg [place] DAILY PRN 06/23/19 Gabapentin 300 mg PO TID 06/23/19 Insulin Glargine,Hum.rec.anlog [Basaglar Kwikpen U-100] 20 unit SQ DAILY Iprat-Albut 0.5-3(2.5) mg/3 ml 3 ml NEB QID 06/23/19 Metolazone 2.5 mg PO ASDIR 06/23/19 Milk of Magnesia 5 5ml PO DAILY PRN 06/23/19 Oxycodone-Acetaminophen 10-325 10 mg PO Q8H PRN 06/23/19 Polyethylene Glycol 3350 [Miralax 119 gm Btl -] 17 gm PO DAILY 06/23/19 Tamsulosin HCl [Flomax] 0.4 mg PO DAILY 06/23/19 Zinc Oxide 20% Topical Oint 1 appful DAILY PRN 06/23/19 Lidocaine 5% Patch [Lidoderm -] 1 patch TP DAILY patch 07/01/19 Digoxin [Lanoxin -] 125 mcg PO DAILY 08/31/19 Mag Hydrox/Al Hydrox/Simeth [Mylanta Oral Suspension -] 30 ml PO QID 08/31/19 Melatonin 3 mg PO HS 08/31/19 Metoprolol Tartrate 25 mg PO BID 08/31/19 Multivitamin [Multiple Vitamins] 1 each PO DAILY 08/31/19 Review of Systems - Review of Systems Constitutional: reports: No Symptoms Eyes: reports: No Symptoms HENT: reports: No Symptoms Neck: reports: No Symptoms Cardiovascular: reports: No Symptoms Gastrointestinal: reports: No Symptoms Genitourinary: reports: No Symptoms Breasts: reports: No Symptoms Reported Musculoskeletal: reports: No Symptoms Integumentary: reports: No Symptoms Neurological: reports: No Symptoms Endocrine: reports: No Symptoms Hematology/Lymphatic: reports: No Symptoms Psychiatric: reports: No Symptoms Vital Signs: Vital Signs Temperature 99.2 F 08/31/19 19:19 Pulse Rate 102 H 08/31/19 19:19 Respiratory Rate 20 08/31/19 19:19 Blood Pressure 108/41 L 08/31/19 19:19 O2 Sat by Pulse Oximetry (%) 100 08/31/19 15:01 - Other Data Labs, Other Data: CBC, BMP 08/31/19 12:31 08/31/19 12:31 INR, PTT INR 1.53 (0.83-1.09) H 08/31/19 12:31 Imaging - Results Chest X-ray: Image Reviewed (cm pleural effusions) EKG: Image Reviewed (sr short pr rep abn ivcd) Problem List - Problems (1) BEKA (acute kidney injury) Code(s): N17.9 - ACUTE KIDNEY FAILURE, UNSPECIFIED (2) Acute urinary retention Code(s): R33.8 - OTHER RETENTION OF URINE (3) Gross hematuria Code(s): R31.0 - GROSS HEMATURIA (4) Leukocytosis Code(s): D72.829 - ELEVATED WHITE BLOOD CELL COUNT, UNSPECIFIED (5) Abdominal bloating Code(s): R14.0 - ABDOMINAL DISTENSION (GASEOUS) (6) Abdominal discomfort Code(s): R10.9 - UNSPECIFIED ABDOMINAL PAIN (7) Abnormal liver enzymes Code(s): R74.8 - ABNORMAL LEVELS OF OTHER SERUM ENZYMES (8) Acute respiratory failure with hypoxia and hypercapnia Code(s): J96.01 - ACUTE RESPIRATORY FAILURE WITH HYPOXIA; J96.02 - ACUTE RESPIRATORY FAILURE WITH HYPERCAPNIA (9) Anemia Code(s): D64.9 - ANEMIA, UNSPECIFIED (10) Atrial fibrillation Code(s): I48.91 - UNSPECIFIED ATRIAL FIBRILLATION (11) BPH (benign prostatic hyperplasia) Code(s): N40.0 - BENIGN PROSTATIC HYPERPLASIA WITHOUT LOWER URINRY TRACT SYMP (12) CHF (congestive heart failure) Code(s): I50.9 - HEART FAILURE, UNSPECIFIED Qualifiers: Heart failure type: unspecified Heart failure chronicity: chronic Qualified Code(s): I50.9 - Heart failure, unspecified (13) Chronic combined systolic and diastolic CHF, NYHA class 4 Code(s): I50.42 - CHRONIC COMBINED SYSTOLIC AND DIASTOLIC HRT FAIL (14) Chronic hypoxemic respiratory failure Code(s): J96.11 - CHRONIC RESPIRATORY FAILURE WITH HYPOXIA (15) Depression Code(s): F32.9 - MAJOR DEPRESSIVE DISORDER, SINGLE EPISODE, UNSPECIFIED (16) Diabetes Code(s): E11.9 - TYPE 2 DIABETES MELLITUS WITHOUT COMPLICATIONS Qualifiers: Diabetes mellitus type: other specified (including TAN) Diabetes mellitus prison insulin use: unspecified prison insulin use status Diabetes mellitus complication status: with other specified complication Qualified Code (s): E13.69 - Other specified diabetes mellitus with other specified complication (17) Dyspnea Code(s): R06.00 - DYSPNEA, UNSPECIFIED Qualifiers: Dyspnea type: unspecified Qualified Code(s): R06.00 - Dyspnea, unspecified (18) Early satiety Code(s): R68.81 - EARLY SATIETY (19) Elevated troponin Code(s): R74.8 - ABNORMAL LEVELS OF OTHER SERUM ENZYMES (20) Extremity pain Code(s): M79.609 - PAIN IN UNSPECIFIED LIMB (21) Fall Code(s): W19.XXXA - UNSPECIFIED FALL, INITIAL ENCOUNTER (22) Gallstones Code(s): K80.20 - CALCULUS OF GALLBLADDER W/O CHOLECYSTITIS W/O OBSTRUCTION (23) HLD (hyperlipidemia) Code(s): E78.5 - HYPERLIPIDEMIA, UNSPECIFIED (24) Hypertension Code(s): I10 - ESSENTIAL (PRIMARY) HYPERTENSION Qualifiers: Hypertension type: unspecified Qualified Code(s): I10 - Essential (primary ) hypertension (25) Hypomagnesemia Code(s): E83.42 - HYPOMAGNESEMIA (26) Increased oxygen demand Code(s): R06.89 - OTHER ABNORMALITIES OF BREATHING (27) Morbid obesity Code(s): E66.01 - MORBID (SEVERE) OBESITY DUE TO EXCESS CALORIES (28) PSVT (paroxysmal supraventricular tachycardia) Code(s): I47.1 - SUPRAVENTRICULAR TACHYCARDIA (29) Paroxysmal A-fib Code(s): I48.0 - PAROXYSMAL ATRIAL FIBRILLATION (30) Pneumonia Code(s): J18.9 - PNEUMONIA, UNSPECIFIED ORGANISM (31) Prophylactic measure Code(s): Z29.9 - ENCOUNTER FOR PROPHYLACTIC MEASURES, UNSPECIFIED (32) Pulmonary HTN Code(s): I27.2 - OTHER SECONDARY PULMONARY HYPERTENSION * DO NOT USE * (33) Splenic artery aneurysm Code(s): I72.8 - ANEURYSM OF OTHER SPECIFIED ARTERIES (34) Symptomatic anemia Code(s): D64.9 - ANEMIA, UNSPECIFIED (35) Systolic CHF Code(s): I50.20 - UNSPECIFIED SYSTOLIC (CONGESTIVE) HEART FAILURE Assessment/Plan 78 y/o male with past medical history of DM, CHF, Afib, Anemia. Patient presented to ER from [facility] for hematuria. Currently patient in NSR Plan; AGREE WITH HOLDING ELIQUIS. D/C ENTRESTO D/c Digoxin repeat ECHO cont Kelsey and BB
[2019-08-31] MEDS: METOPROLOL TARTRATE 25 MG TABLET (FP) PO SCH (23:47)
[2019-08-31] MEDS: DOCUSATE SODIUM 100 MG CAPSULE (FP) PO SCH (23:47)
[2019-08-31] MEDS: ATORVASTATIN CA 40 MG TABLET (FP) PO SCH (23:47)
[2019-08-31] MEDS: GABAPENTIN 300 MG CAPSULE (FP) PO SCH (23:47)
[2019-08-31] MEDS: MELATONIN 1 MG TABLET PO SCH (23:48)
[2019-09-01] MEDS: INSULIN SLIDING SCALE (NOVOLOG) 1 VIAL SQ SCH ×4 (06:12→23:36)
[2019-09-01] MEDS: GABAPENTIN 300 MG CAPSULE (FP) PO SCH ×3 (06:12→23:15)
--- NOTE | 2019-09-01 07:17 | CONS ---
DATE OF CONSULTATION: DATE OF DICTATION: 08/31/2019 HISTORY OF PRESENT ILLNESS: The patient is a 78-year-old male admitted via the emergency room with a history of urinary retention. A Iqbal catheter was placed and grossly bloody urine was drained. The patient was then commenced on continuous bladder irrigation with normal saline. The patient denies any trauma. PAST MEDICAL HISTORY: He does have a history of diabetes, congestive heart failure, anemia, and atrial fibrillation for which he takes an anticoagulant. The patient also has a history of coronary artery disease as well as COPD. He also has been diagnosed with pulmonary hypertension. He has been having a history of prostatism, including frequency, urgency, terminal dribbling, nocturia x4 and feelings of incomplete bladder emptying. PAST SURGICAL HISTORY: The patient has undergone angioplasty and stent placements in the past. HABITS: He denies ethanolism or tobacco use. SOCIAL HISTORY: He is presently a resident of a longterm. ALLERGIES: He denies any allergies. MEDICATIONS: He is on multiple medications, including Fosamax, a statin, isosorbide, Entresto, Ecotrin, Norvasc, Eliquis, Lasix, insulin, stool softeners, gabapentin, Flomax, and Advair inhaler. The patient also takes Lanoxin, melatonin and metoprolol. PHYSICAL EXAMINATION: Vital Signs: In the emergency room, his temperature was 97.7, blood pressure 105/54. General: He did not appear in any distress. Abdomen: Soft. Genitourinary: Presently he has a Iqbal catheter with continuous bladder irrigation. DIAGNOSTIC STUDIES: His urine is blood-tinged. There are no clots. The patient's white count is 11,500, hemoglobin 9.2, hematocrit 28.8, platelets 195. BUN 35, creatinine 1.9. Random glucose was 157. The patient has an ultrasound of the abdomen which revealed normal upper tracts, but proper visualization of the kidneys was unable to be made due to bowel gas. He does appear to have cholelithiasis. IMPRESSION: This is a 78-year-old male with a history of prostatism, presents with gross scrotal pain with hematuria. He is presently on a Iqbal catheter with continuous bladder irrigation. PLAN: The patient should undergo a cystoscopy, possible bladder biopsy, possible TURP when he is medically stable. Recommend discontinuing his anticoagulation and possibly bridging him with heparin. I will follow with you. CHUY CHAVARRIA M.D. CORINNE/[id number]
[2019-09-01] MEDS: ALBUTEROL SO4 2.5/IPRATROPIUM 0.5 INH SOL 3 ML VIAL.NEB. NEB SCH ×4 (08:00→20:38)
[2019-09-01 08:02] LABS: BASO % 0.2 % (0-2.0); EOS % 0.1 % (0-4.5); HEMATOCRIT 25.7 % (35.4-49); HEMOGLOBIN 8.3 GM/dL (11.7-16.9); LYMPH % 3.2 % (8-40); MCH 30.4 pg (25.7-33.7); MCHC 32.4 g/dl (32.0-35.9); MEAN CELL VOLUME 93.8 fl (80-96); MEAN PLT VOLUME 8.5 fl (7.5-11.1); MONO % 5.1 % (3.8-10.2); NEUT % 91.4 % (42.8-82.8); PLATELET COUNT 174 K/MM3 (134-434); RBC 2.74 M/mm3 (4.00-5.60); RDW 15.8 % (11.9-15.9); WHITE BLOOD COUNT 14.9 K/mm3 (4.0-10.0)
[2019-09-01] MEDS: TAMSULOSIN HCL 0.4 MG CAP PO SCH (08:47)
[2019-09-01 09:01] LABS: ALBUMIN 2.9 g/dl (3.4-5.0); BILIRUBIN,TOTAL 0.6 mg/dL (0.2-1); BLOOD UREA NITROGEN 35.6 mg/dL (7-18); CALCIUM 9.2 mg/dL (8.5-10.1); CREATININE 1.8 mg/dL (0.55-1.3); MAGNESIUM 2.4 mg/dL (1.8-2.4); PHOSPHOROUS 4.1 mg/dL (2.5-4.9); POTASSIUM 3.9 mmol/L (3.5-5.1); TOT PROT 5.6 g/dl (6.4-8.2); URIC ACID 10.6 mg/dL (2.6-7.2)
[2019-09-01] MEDS ORDERED: DEXTROSE 5%-WATER - 50 ML IVPB ONE (09:25)
[2019-09-01] MEDS ORDERED: cefTRIAXone SODIUM 1 GM VIAL ONE (09:25)
[2019-09-01] MEDS ORDERED: DIGOXIN 0.125 MG TABLET (FP) PO SCH (10:00)
[2019-09-01] MEDS: METOPROLOL TARTRATE 25 MG TABLET (FP) PO SCH ×2 (10:47→23:12)
[2019-09-01] MEDS: amLODIPine BESYLATE 5 MG TABLET (FP) PO SCH (10:48)
[2019-09-01] MEDS: ASPIRIN COATED 81 MG TABLET.EC PO SCH (10:48)
[2019-09-01] MEDS: ISOSORBIDE MONONITRATE 60 MG TAB.SR.24H (FP) PO SCH (10:48)
[2019-09-01] MEDS: FUROSEMIDE 40 MG TABLET (FP) PO SCH (10:48)
[2019-09-01] MEDS: MULTIVITAMINS (DAILY MVI) TABLET (FP) PO SCH (10:48)
[2019-09-01] MEDS: LIDOCAINE 5% TOPICAL PATCH TP SCH (10:49)
[2019-09-01] MEDS: CEFTRIAXONE 1 GM in DEXTROSE 5%-WATER - 50 ML IVPB SCH (10:49)
[2019-09-01] MEDS: POTASSIUM CHLORIDE TABS 20 MEQ TABLET.ER (FP) PO SCH (10:49)
[2019-09-01 11:22] LABS: ANISOCYTOSIS 1+; MACROCYTOSIS 0; PLATELET ESTIMATE NORMAL; TEAR DROP CELLS 1+
[2019-09-01] MEDS: POLYETHYLENE GLYCOL 3350 119 GM BTL PO SCH (12:01)
--- NOTE | 2019-09-01 13:34 | EKG ---
Test Reason : Blood Pressure : / mmHG Vent. Rate : 097 BPM Atrial Rate : 097 BPM P-R Int : 118 ms QRS Dur : 174 ms QT Int : 396 ms P-R-T Axes : 021 269 018 degrees QTc Int : 502 ms SINUS RHYTHM WITH PREMATURE ATRIAL COMPLEXES RIGHT BUNDLE BRANCH BLOCK SEPTAL INFARCT , AGE UNDETERMINED ABNORMAL ECG WHEN COMPARED WITH ECG OF 31-AUG-2019 11:15, SEPTAL INFARCT IS NOW PRESENT NONSPECIFIC T WAVE ABNORMALITY NOW EVIDENT IN ANTERIOR LEADS Confirmed by RUDDY HO MD ([id number]) on 09/01/2019 1:33:26 PM Referred By: HARSH HAGEN Confirmed By:RUDDY HO MD
--- NOTE | 2019-09-01 14:38 | CONSULT ---
Consult - text type - Consultation Consultation Note: Renal consult for BEKA This is a 78 year old gentleman with history of CHF with reduced LVEF, Afib, Anemia and DM who presented from OR with gross hematuria and found to have BEKA. Pt has normal renal function at baseline. Seen and examined at the bedside. Reports feeling weak. Denies any sob, chest pain, abd pain, fever or chills. Has CBI in place. No flank pain. No Hx of NSAID use. No recent contrast exposure. Pt is on ARB and multiple diuretics as an outpatient. PMHx: as above Allergies: NKDA Family Hx: NC Social Hx: No T/A/D ROS: as per HPI, all other pertinent ros negative Home Medications Medication Instructions Recorded Alendronate Na [Fosamax (Weekly)] 70 mg PO WEEKLY 01/29/17 Atorvastatin Calcium 40 mg PO DAILY 01/29/17 Isosorbide Mononitrate [Imdur -] 60 mg PO DAILY 01/29/17 Sacubitril/Valsartan [Entresto 24 1 tab PO BID 01/29/17 mg-26 mg Tablet] Aspirin Coated [Ecotrin -] 81 mg PO DAILY tablet.ec 11/05/17 Amlodipine Besylate 5 mg PO DAILY 05/04/18 Acetaminophen [Tylenol .Regular 650 mg PO Q6H PRN tablet 03/07/19 Strength -] Apixaban [Eliquis -] 5 mg PO BID tablet 03/07/19 Furosemide [Lasix -] 80 mg PO DAILY tablet 03/07/19 Insulin Sliding Scale [Novolog 1 vial SQ ACHS units 03/07/19 Vial Sliding Scale -] Potassium Chloride [K-Dur -] 40 meq PO DAILY tablet.er 03/07/19 Docusate Sodium [Colace] 300 mg PO HS 06/23/19 Dulcolax 10 mg IN DAILY PRN 06/23/19 Gabapentin 300 mg PO TID 06/23/19 Insulin Glargine,Hum.rec.anlog 20 unit SQ DAILY 06/23/19 [Basaglar Kwikpen U-100] Iprat-Albut 0.5-3(2.5) mg/3 ml 3 ml NEB QID 06/23/19 Metolazone 2.5 mg PO ASDIR 06/23/19 Milk of Magnesia 5 5ml PO DAILY PRN 06/23/19 Oxycodone-Acetaminophen 10-325 10 mg PO Q8H PRN 06/23/19 Polyethylene Glycol 3350 [Miralax 17 gm PO DAILY 06/23/19 119 gm Btl -] Tamsulosin HCl [Flomax] 0.4 mg PO DAILY 06/23/19 Zinc Oxide 20% Topical Oint 1 appful DAILY PRN 06/23/19 Lidocaine 5% Patch [Lidoderm -] 1 patch TP DAILY patch 07/01/19 Digoxin [Lanoxin -] 125 mcg PO DAILY 08/31/19 Mag Hydrox/Al Hydrox/Simeth 30 ml PO QID 08/31/19 [Mylanta Oral Suspension -] Melatonin 3 mg PO HS 08/31/19 Metoprolol Tartrate 25 mg PO BID 08/31/19 Multivitamin [Multiple Vitamins] 1 each PO DAILY 08/31/19 Vital Signs Temperature 98.9 F 09/01/19 06:00 Pulse Rate 102 H 09/01/19 06:00 Respiratory Rate 20 09/01/19 08:54 Blood Pressure 117/60 09/01/19 06:00 O2 Sat by Pulse Oximetry (%) 98 09/01/19 08:54 Intake & Output 08/29/19 08/30/19 08/31/19 09/01/19 23:59 23:59 23:59 23:59 Intake Total 3900 1200 Output Total 6800 2100 Balance -2900 -900 Weight 102.058 kg NAD awake and alert neck supple irregular, no M/R CTA soft NT/ND no LE edema, clubbing or cyanosis thomas in place no bladder distension CBC, BMP 09/01/19 07:08 09/01/19 07:08 Current Medications Acetaminophen (Tylenol -) 650 mg PO Q6H PRN PRN Reason: FEVER Last Admin: 08/31/19 19:16 Dose: 650 mg Al Hydroxide/Mg Hydroxide (Mylanta Oral Suspension -) 30 ml PO Q6H PRN PRN Reason: DYSPEPSIA Albuterol/Ipratropium (Duoneb -) 1 amp NEB RQID [facility] Last Admin: 09/01/19 12:00 Dose: 1 amp Amlodipine Besylate (Norvasc -) 5 mg PO DAILY [facility] Last Admin: 09/01/19 10:48 Dose: 5 mg Apixaban (Eliquis -) 5 mg PO BID [facility] Aspirin (Ecotrin -) 81 mg PO DAILY [facility] Last Admin: 09/01/19 10:48 Dose: 81 mg Atorvastatin Calcium (Lipitor -) 40 mg PO HS [facility] Last Admin: 08/31/19 23:47 Dose: 40 mg Docusate Sodium (Colace -) 300 mg PO HS [facility] Last Admin: 08/31/19 23:47 Dose: 300 mg Furosemide (Lasix -) 80 mg PO DAILY [facility] Last Admin: 09/01/19 10:48 Dose: 80 mg Gabapentin (Neurontin -) 300 mg PO TID [facility] Last Admin: 09/01/19 13:14 Dose: 300 mg Ceftriaxone Sodium 1 gm/ (Dextrose) 50 mls @ 100 mls/hr IVPB DAILY [facility]; Protocol Last Admin: 09/01/19 10:49 Dose: 100 mls/hr Insulin Aspart (Novolog Vial Sliding Scale -) 1 vial SQ ACHS [facility]; Protocol Last Admin: 09/01/19 12:48 Dose: Not Given Isosorbide Mononitrate (Imdur -) 60 mg PO DAILY [facility] Last Admin: 09/01/19 10:48 Dose: 60 mg Lidocaine (Lidoderm Patch -) 1 patch TP DAILY [facility] Last Admin: 09/01/19 10:49 Dose: 1 patch Melatonin (Melatonin) 3 mg PO [facility] Last Admin: 08/31/19 23:48 Dose: 3 mg Metolazone (Zaroxolyn -) 2.5 mg PO MoWeFr@0900 [facility] Metoprolol Tartrate (Lopressor -) 25 mg PO BID [facility] Last Admin: 09/01/19 10:47 Dose: 25 mg Miscellaneous (Lidoderm Patch Removal) 1 each MC DAILY@2200 [facility] Multivitamins/Minerals/Vitamin C (Tab-A-Vit -) 1 tab PO DAILY [facility] Last Admin: 09/01/19 10:48 Dose: 1 tab Polyethylene Glycol (Miralax (For Daily Use) -) 17 gm PO DAILY [facility] Last Admin: 09/01/19 12:01 Dose: 17 gm Potassium Chloride (K-Dur -) 40 meq PO DAILY [facility] Last Admin: 09/01/19 10:49 Dose: 40 meq Tamsulosin HCl (Flomax -) 0.4 mg PO DAILY@0830 [facility] Last Admin: 09/01/19 08:47 Dose: 0.4 mg 78 year old gentleman with history of CHF with reduced LVEF, Afib, Anemia and DM who presented from OR with gross hematuria and found to have BEKA. 1. Acute kidney injury likely due to intravascular volume depletion (diuretics/ anemia) 2. Hematuria 3. CHF with reduced LVEF 4. Afib on Eliquis 5. Anemia CHeck urine studies for FeUrea, Urine Eosinophils Abd US showed no obstruction in urine output flow or hydronephrosis would hold Metozone for at least 24 hours and monitor renal function continue Lasix as pt does have some chest congestion no acute need for [employer] no overt electrolyte or acid base disturbance noted Check iron studies for anemia Thank you Saul Diaz DO
--- NOTE | 2019-09-01 14:48 | ECHO ---
Name: KAYLEEN CORBETT Exam:Adult Echocardiogram Study Date: 09/01/2019 11:58 AM Age: 78 yrs Reason For Study: ef Height: 71 in Weight: 225 lb BSA: 2.2 m2 Doppler Measurements & Calculations MV E max ryan: 81.0 cm/sec Ao V2 max: 213.1 cm/sec MV A max ryan: 95.6 cm/sec Ao max P.3 mmHg MV E/A: 0.85 Ao V2 mean: 154.6 cm/sec MV dec time: 0.14 sec Ao mean P.7 mmHg Ao V2 VTI: 35.4 cm AI P1/2t: 891.6 msec AI max ryan: 123.5 cm/sec LV V1 max P.8 mmHg AI max P.1 mmHg LV V1 mean P.6 mmHg LV V1 max: 108.9 cm/sec AI dec slope: 40.6 cm/sec2 LV V1 mean: 77.7 cm/sec LV V1 VTI: 13.7 cm TR max ryan: 248.9 cm/sec PA V2 max: 162.9 cm/sec TR max P.3 mmHg PA max P.6 mmHg Med Peak E' Ryan: 3.6 cm/sec PI Vmax: 243.0 cm/sec Med E/e': 22.6 Lat Peak E' Ryan: 12.8 cm/sec Lat E/e': 6.3 Procedure A complete two-dimensional transthoracic echocardiogram was performed (2D, M-mode, Doppler and color flow Doppler). The study was technically limited with all images being suboptimal in quality. Left Ventricle Left ventricular systolic function is grossly normal. Regional wall motion abnormalities cannot be ex cluded due to limited visualization. Right Ventricle The right ventricular systolic function is grossly normal. Atria Normal left and right atrial size and function. Mitral Valve There is no mitral regurgitation noted. Tricuspid Valve There is trace tricuspid regurgitation. There was insufficient TR detected to calculate RV systolic p ressure. Aortic Valve The aortic valve is not well visualized. Pulmonic Valve The pulmonic valve is not well visualized. Great Vessels The aortic root is not well visualized. Pericardium/Pleura There is no pericardial effusion. Interpretation Summary The study was technically limited with all images being suboptimal in quality. Left ventricular systolic function is grossly normal. The right ventricular systolic function is grossly normal. There is trace tricuspid regurgitation. MD Vimal Schmidt 09/01/2019 02:47 PM
[2019-09-01] MEDS: ACETAMINOPHEN 325 MG TABLET (FP) PO PRN ×2 (15:36→23:14)
--- NOTE | 2019-09-01 15:40 | PN ---
Progress Note, Physician Chief Complaint: patient seen and examined just got back from cystoscopy on CBI - Current Medication List Current Medications: Active Medications Acetaminophen (Tylenol -) 650 mg PO Q6H PRN PRN Reason: FEVER Last Admin: 09/01/19 15:36 Dose: 650 mg Al Hydroxide/Mg Hydroxide (Mylanta Oral Suspension -) 30 ml PO Q6H PRN PRN Reason: DYSPEPSIA Albuterol/Ipratropium (Duoneb -) 1 amp NEB RQID [facility] Last Admin: 09/01/19 12:00 Dose: 1 amp Amlodipine Besylate (Norvasc -) 5 mg PO DAILY [facility] Last Admin: 09/01/19 10:48 Dose: 5 mg Apixaban (Eliquis -) 5 mg PO BID [facility] Aspirin (Ecotrin -) 81 mg PO DAILY [facility] Last Admin: 09/01/19 10:48 Dose: 81 mg Atorvastatin Calcium (Lipitor -) 40 mg PO HS [facility] Last Admin: 08/31/19 23:47 Dose: 40 mg Docusate Sodium (Colace -) 300 mg PO HS [facility] Last Admin: 08/31/19 23:47 Dose: 300 mg Furosemide (Lasix -) 80 mg PO DAILY [facility] Last Admin: 09/01/19 10:48 Dose: 80 mg Gabapentin (Neurontin -) 300 mg PO TID [facility] Last Admin: 09/01/19 13:14 Dose: 300 mg Ceftriaxone Sodium 1 gm/ (Dextrose) 50 mls @ 100 mls/hr IVPB DAILY [facility]; Protocol Last Admin: 09/01/19 10:49 Dose: 100 mls/hr Insulin Aspart (Novolog Vial Sliding Scale -) 1 vial SQ ACHS [facility]; Protocol Last Admin: 09/01/19 12:48 Dose: Not Given Isosorbide Mononitrate (Imdur -) 60 mg PO DAILY [facility] Last Admin: 09/01/19 10:48 Dose: 60 mg Lidocaine (Lidoderm Patch -) 1 patch TP DAILY [facility] Last Admin: 09/01/19 10:49 Dose: 1 patch Melatonin (Melatonin) 3 mg PO HS [facility] Last Admin: 08/31/19 23:48 Dose: 3 mg Metoprolol Tartrate (Lopressor -) 25 mg PO BID [facility] Last Admin: 09/01/19 10:47 Dose: 25 mg Miscellaneous (Lidoderm Patch Removal) 1 each MC DAILY@2200 [facility] Multivitamins/Minerals/Vitamin C (Tab-A-Vit -) 1 tab PO DAILY [facility] Last Admin: 09/01/19 10:48 Dose: 1 tab Polyethylene Glycol (Miralax (For Daily Use) -) 17 gm PO DAILY [facility] Last Admin: 09/01/19 12:01 Dose: 17 gm Potassium Chloride (K-Dur -) 40 meq PO DAILY [facility] Last Admin: 09/01/19 10:49 Dose: 40 meq Tamsulosin HCl (Flomax -) 0.4 mg PO DAILY@0830 [facility] Last Admin: 09/01/19 08:47 Dose: 0.4 mg - Objective Vital Signs: Vital Signs Temperature 98.9 F 09/01/19 06:00 Pulse Rate 102 H 09/01/19 06:00 Respiratory Rate 20 09/01/19 08:54 Blood Pressure 117/60 09/01/19 06:00 O2 Sat by Pulse Oximetry (%) 98 09/01/19 08:54 Constitutional: Yes: Calm Cardiovascular: Yes: Regular Rate and Rhythm, S1, S2 Respiratory: Yes: CTA Bilaterally Gastrointestinal: Yes: Normal Bowel Sounds, Soft Labs: CBC, BMP 09/01/19 07:08 09/01/19 07:08 INR, PTT INR 1.53 (0.83-1.09) H 08/31/19 12:31 Problem List - Problems (1) BEKA (acute kidney injury) Assessment/Plan: renal sono Code(s): N17.9 - ACUTE KIDNEY FAILURE, UNSPECIFIED (2) Gross hematuria Assessment/Plan: CBI Code(s): R31.0 - GROSS HEMATURIA (3) UTI (urinary tract infection) Assessment/Plan: Microbiology 08/31/19 12:39 Urine - Urine Iqbal Urine Culture - Preliminary Proteus Species iv abx Code(s): N39.0 - URINARY TRACT INFECTION, SITE NOT SPECIFIED
--- NOTE | 2019-09-01 15:56 | PN ---
Progress Note, Physician Chief Complaint: Pt alert; no more abdominal pain presently. History of Present Illness: The patient is a 78 year old black male with history of diabetes, diastolic CHF , CAD-->?2 coronary stents in ?2015 at ?[facility], atrial fibrillation, anemia who presents to the emergency department for evaluation of dysuria, hematuria, and urinary retention since last night. Patient denies fever/chills/nausea/ vomiting/melena.He comes from [facility] where a thomas was placed this morning. Urologist: Negin Friedman PCP: Hung Friedman - Current Medication List Current Medications: Active Medications Acetaminophen (Tylenol -) 650 mg PO Q6H PRN PRN Reason: FEVER Last Admin: 09/01/19 15:36 Dose: 650 mg Al Hydroxide/Mg Hydroxide (Mylanta Oral Suspension -) 30 ml PO Q6H PRN PRN Reason: DYSPEPSIA Albuterol/Ipratropium (Duoneb -) 1 amp NEB RQID [facility] Last Admin: 09/01/19 12:00 Dose: 1 amp Amlodipine Besylate (Norvasc -) 5 mg PO DAILY [facility] Last Admin: 09/01/19 10:48 Dose: 5 mg Apixaban (Eliquis -) 5 mg PO BID [facility] Aspirin (Ecotrin -) 81 mg PO DAILY [facility] Last Admin: 09/01/19 10:48 Dose: 81 mg Atorvastatin Calcium (Lipitor -) 40 mg PO HS [facility] Last Admin: 08/31/19 23:47 Dose: 40 mg Docusate Sodium (Colace -) 300 mg PO HS [facility] Last Admin: 08/31/19 23:47 Dose: 300 mg Furosemide (Lasix -) 80 mg PO DAILY [facility] Last Admin: 09/01/19 10:48 Dose: 80 mg Gabapentin (Neurontin -) 300 mg PO TID [facility] Last Admin: 09/01/19 13:14 Dose: 300 mg Ceftriaxone Sodium 1 gm/ (Dextrose) 50 mls @ 100 mls/hr IVPB DAILY [facility]; Protocol Last Admin: 09/01/19 10:49 Dose: 100 mls/hr Insulin Aspart (Novolog Vial Sliding Scale -) 1 vial SQ ACHS [facility]; Protocol Last Admin: 09/01/19 12:48 Dose: Not Given Isosorbide Mononitrate (Imdur -) 60 mg PO DAILY [facility] Last Admin: 09/01/19 10:48 Dose: 60 mg Lidocaine (Lidoderm Patch -) 1 patch TP DAILY [facility] Last Admin: 09/01/19 10:49 Dose: 1 patch Melatonin (Melatonin) 3 mg PO HS [facility] Last Admin: 08/31/19 23:48 Dose: 3 mg Metoprolol Tartrate (Lopressor -) 25 mg PO BID [facility] Last Admin: 09/01/19 10:47 Dose: 25 mg Miscellaneous (Lidoderm Patch Removal) 1 each MC DAILY@2200 [facility] Multivitamins/Minerals/Vitamin C (Tab-A-Vit -) 1 tab PO DAILY [facility] Last Admin: 09/01/19 10:48 Dose: 1 tab Polyethylene Glycol (Miralax (For Daily Use) -) 17 gm PO DAILY [facility] Last Admin: 09/01/19 12:01 Dose: 17 gm Potassium Chloride (K-Dur -) 40 meq PO DAILY [facility] Last Admin: 09/01/19 10:49 Dose: 40 meq Tamsulosin HCl (Flomax -) 0.4 mg PO DAILY@0830 [facility] Last Admin: 09/01/19 08:47 Dose: 0.4 mg - Objective Vital Signs: Vital Signs Temperature 99.3 F 09/01/19 14:00 Pulse Rate 84 09/01/19 14:00 Respiratory Rate 20 09/01/19 14:00 Blood Pressure 82/42 L 09/01/19 14:00 O2 Sat by Pulse Oximetry (%) 98 09/01/19 08:54 Constitutional: Yes: No Distress Eyes: Yes: WNL HENT: Yes: Pharyngeal Erythema Cardiovascular: Yes: S1, S2 (split), S4 Respiratory: Yes: WNL Gastrointestinal: Yes: Soft ...Rectal Exam: Yes: Deferred Genitourinary: No: Anuria Extremities: Yes: Cool Edema: Yes Edema: LLE: 1+, RLE: 1+ Peripheral Pulses WNL: No Peripheral Pulses: Left Doralis Pedis: 1+, Right Dorsalis Pedis: 1+ Integumentary: Yes: Venous Stasis Changes Neurological: Yes: Alert, Oriented Psychiatric: Yes: Other Labs: CBC, BMP 09/01/19 07:08 09/01/19 07:08 INR, PTT INR 1.53 (0.83-1.09) H 08/31/19 12:31 - ....Imaging Chest X-ray: Image Reviewed Ultrasound: Report Reviewed EKG: Image Reviewed Problem List - Problems (1) UTI (urinary tract infection) Code(s): N39.0 - URINARY TRACT INFECTION, SITE NOT SPECIFIED (2) Paroxysmal A-fib Assessment/Plan: On metoprolol for HR control. On apixaban for anticoagulation. ECHO: normla LVEF. Code(s): I48.0 - PAROXYSMAL ATRIAL FIBRILLATION (3) Renal dysfunction Assessment/Plan: f/u with floorwalker. Code(s): N28.9 - DISORDER OF KIDNEY AND URETER, UNSPECIFIED (4) Obesity (BMI 30.0-34.9) Code(s): E66.9 - OBESITY, UNSPECIFIED (5) Anemia Code(s): D64.9 - ANEMIA, UNSPECIFIED
--- NOTE | 2019-09-01 16:02 | PN ---
Progress Note (short form) - Note Progress Note: ID CONSULT DICTATED ACUTE URINARY RETENTION GROSS HEMATURIA UTI PROTEUS SP. FEVER/ LEUKOCYTOSIS R/O SEPSIS SECONDARY TO SOURCE AWAIT C/S CONTINUE CEFTRIAXONE
--- NOTE | 2019-09-01 16:42 | CONS ---
DATE OF CONSULTATION: DATE OF DICTATION: 09/01/2019 INFECTIOUS DISEASE CONSULTATION HISTORY OF PRESENT ILLNESS: The patient is a 78-year-old male who is evaluated for urinary tract infection, possible sepsis. He is a resident of a nursing home facility. He developed acute onset of urinary retention at the long term. Patient was unable to void and had increasing suprapubic pain. He presented to the emergency room where a Iqbal catheter was inserted, and patient was noted to have gross hematuria. Cultures were obtained, and he was empirically treated with antibiotics. His course was complicated by low-grade fever and elevated white blood cell count. At the present time, he has a catheter in place and is receiving continuous bladder irrigation. Patient had experienced some dysuria prior to the insertion of the Iqbal catheter. He denied any high-grade fever or shaking chills. Urine culture now is growing a proteus species, blood cultures pending. He was empirically treated with ceftriaxone. PAST MEDICAL HISTORY: Positive for diabetes mellitus, atrial fibrillation, congestive heart failure, COPD, obstructive sleep apnea, coronary artery disease. PAST SURGICAL HISTORY: Status post coronary artery stent, left knee Makoplasty. ALLERGIES: No known allergies. MEDICATION: Tylenol, Norvasc, Eliquis, Ecotrin, Lipitor, ceftriaxone, Imdur, Lopressor, Flomax. SOCIAL HISTORY: He resides in a nursing home facility. Nonsmoker, nondrinker. SYSTEMS REVIEW: Neurologic: No loss of consciousness, seizure activity, or focal weakness. Cardiac: Negative for chest pain or palpitations. Respiratory: Negative for cough or sputum production. Gastrointestinal: Negative vomiting or diarrhea. Genitourinary: As per HPI. LABORATORY DATA: White count 14.9 with left shift, hematocrit 25.7, platelets 174, liver enzymes normal. Creatinine 1.8. Blood cultures pending. Urine culture growing a proteus species. Urine: pH greater than 9, 341 white cells. PHYSICAL EXAMINATION: General: On exam, he is awake and alert, in no acute distress. Vital signs: Temperature 98.9, T-max 100.5, blood pressure 117/60, pulse 102 regular, respirations 20 per minute. HEENT: Sclerae anicteric. Cardiovascular: Irregular S1, S2. Lungs: Clear. Abdomen: Soft. Positive suprapubic tenderness. Genitourinary: A Iqbal catheter is in place with the CBI in progress. Urine is blood tinged. Extremities: Positive for edema. IMPRESSION: 1. Acute urinary retention. 2. Gross hematuria. 3. Urinary tract infection. 4. Fever, leukocytosis, possible sepsis secondary to urinary tract infection. Await culture results. Continue empiric ceftriaxone. Urology followup. Further recommendations pending cultures. Will follow. Thank you for the kind referral. DINORA NEWBY M.D. [id number]
--- NOTE | 2019-09-01 20:53 | PN ---
Progress Note (short form) - Note Progress Note: UFULGERATION,POSS. PROSTATEDROLOGY NOTE. PT. WITH H/O GROSS, TOTAL PAINLESS HEMATURIA AND ACUTE URINARY RETENTION. WILL NEED CYSTO, POSS. FULGERATION, POSS. TURP/TUVP IN AM IF MED. OK.
[2019-09-01] MEDS: MELATONIN 1 MG TABLET PO SCH (23:15)
[2019-09-01] MEDS: LIDOCAINE PATCH REMOVAL MC SCH (23:15)
[2019-09-01] MEDS: ATORVASTATIN CA 40 MG TABLET (FP) PO SCH (23:15)
[2019-09-01] MEDS: DOCUSATE SODIUM 100 MG CAPSULE (FP) PO SCH (23:15)
[2019-09-02] MEDS: INSULIN SLIDING SCALE (NOVOLOG) 1 VIAL SQ SCH ×4 (06:41→22:43)
[2019-09-02] MEDS: GABAPENTIN 300 MG CAPSULE (FP) PO SCH ×3 (06:41→22:46)
[2019-09-02] MEDS: ALBUTEROL SO4 2.5/IPRATROPIUM 0.5 INH SOL 3 ML VIAL.NEB. NEB SCH ×4 (08:15→20:30)
[2019-09-02 08:37] LABS: BASO % 0.2 % (0-2.0); EOS % 0.6 % (0-4.5); HEMATOCRIT 23.5 % (35.4-49); HEMOGLOBIN 7.3 GM/dL (11.7-16.9); LYMPH % 3.6 % (8-40); MCH 29.7 pg (25.7-33.7); MCHC 31.1 g/dl (32.0-35.9); MEAN CELL VOLUME 95.4 fl (80-96); MEAN PLT VOLUME 9.2 fl (7.5-11.1); MONO % 4.7 % (3.8-10.2); NEUT % 90.9 % (42.8-82.8); PLATELET COUNT 172 K/MM3 (134-434); RBC 2.46 M/mm3 (4.00-5.60); WHITE BLOOD COUNT 11.4 K/mm3 (4.0-10.0)
[2019-09-02] MEDS ORDERED: METOLAZONE 2.5 MG TABLET (FP) PO SCH (09:00)
[2019-09-02 09:18] LABS: ALBUMIN 2.5 g/dl (3.4-5.0); BILIRUBIN,TOTAL 0.6 mg/dL (0.2-1); BLOOD UREA NITROGEN 47.1 mg/dL (7-18); CALCIUM 8.4 mg/dL (8.5-10.1); MAGNESIUM 2.6 mg/dL (1.8-2.4); PHOSPHOROUS 3.6 mg/dL (2.5-4.9); POTASSIUM 3.9 mmol/L (3.5-5.1); TOT PROT 5.3 g/dl (6.4-8.2)
[2019-09-02] MEDS ORDERED: DEXTROSE 5%-WATER - 50 ML IVPB ONE (09:50)
[2019-09-02] MEDS ORDERED: cefTRIAXone SODIUM 1 GM VIAL ONE (09:50)
[2019-09-02] MEDS: LIDOCAINE 5% TOPICAL PATCH TP SCH (10:43)
--- NOTE | 2019-09-02 10:46 | PN ---
Progress Note, Physician History of Present Illness: The patient is a 78 year old male with history of diabetes, CHF, atrial fibrillation anemia who presents to the emergency department for evaluation of dysuria, hematuria, and urinary Retention since last night. Patient denies fever /chills/nausea/vomiting/melena.He comes from [facility] where a thomas was placed this morning. - Current Medication List Current Medications: Active Medications Acetaminophen (Tylenol -) 650 mg PO Q6H PRN PRN Reason: FEVER Last Admin: 09/01/19 23:14 Dose: 650 mg Al Hydroxide/Mg Hydroxide (Mylanta Oral Suspension -) 30 ml PO Q6H PRN PRN Reason: DYSPEPSIA Albuterol/Ipratropium (Duoneb -) 1 amp NEB RQID [facility] Last Admin: 09/02/19 08:15 Dose: 1 amp Amlodipine Besylate (Norvasc -) 5 mg PO DAILY [facility] Last Admin: 09/01/19 10:48 Dose: 5 mg Apixaban (Eliquis -) 5 mg PO BID [facility] Aspirin (Ecotrin -) 81 mg PO DAILY [facility] Last Admin: 09/01/19 10:48 Dose: 81 mg Atorvastatin Calcium (Lipitor -) 40 mg PO HS [facility] Last Admin: 09/01/19 23:15 Dose: 40 mg Docusate Sodium (Colace -) 300 mg PO HS [facility] Last Admin: 09/01/19 23:15 Dose: 300 mg Furosemide (Lasix -) 80 mg PO DAILY [facility] Last Admin: 09/01/19 10:48 Dose: 80 mg Gabapentin (Neurontin -) 300 mg PO TID [facility] Last Admin: 09/02/19 06:41 Dose: Not Given Ceftriaxone Sodium 1 gm/ (Dextrose) 50 mls @ 100 mls/hr IVPB DAILY [facility]; Protocol Last Admin: 09/01/19 10:49 Dose: 100 mls/hr Insulin Aspart (Novolog Vial Sliding Scale -) 1 vial SQ ACHS [facility]; Protocol Last Admin: 09/02/19 06:41 Dose: Not Given Isosorbide Mononitrate (Imdur -) 60 mg PO DAILY [facility] Last Admin: 09/01/19 10:48 Dose: 60 mg Lidocaine (Lidoderm Patch -) 1 patch TP DAILY [facility] Last Admin: 09/01/19 10:49 Dose: 1 patch Melatonin (Melatonin) 3 mg PO HS [facility] Last Admin: 10/24/19 23:15 Dose: 3 mg Metoprolol Tartrate (Lopressor -) 25 mg PO BID [facility] Last Admin: 09/01/19 23:12 Dose: Not Given Miscellaneous (Lidoderm Patch Removal) 1 each MC DAILY@2200 [facility] Last Admin: 09/01/19 23:15 Dose: 1 each Multivitamins/Minerals/Vitamin C (Tab-A-Vit -) 1 tab PO DAILY [facility] Last Admin: 09/01/19 10:48 Dose: 1 tab Polyethylene Glycol (Miralax (For Daily Use) -) 17 gm PO DAILY [facility] Last Admin: 09/01/19 12:01 Dose: 17 gm Potassium Chloride (K-Dur -) 40 meq PO DAILY [facility] Last Admin: 09/01/19 10:49 Dose: 40 meq Tamsulosin HCl (Flomax -) 0.4 mg PO DAILY@0830 [facility] Last Admin: 09/01/19 08:47 Dose: 0.4 mg - Objective Vital Signs: Vital Signs Temperature 99 F 09/02/19 07:52 Pulse Rate 92 H 09/02/19 07:52 Respiratory Rate 18 09/02/19 09:00 Blood Pressure 104/56 L 09/02/19 07:52 O2 Sat by Pulse Oximetry (%) 97 09/02/19 09:00 Eyes: Yes: WNL, Conjunctiva Clear, EOM Intact HENT: Yes: WNL, Atraumatic, Normocephalic Neck: Yes: WNL, Supple, Trachea Midline Cardiovascular: Yes: WNL, Regular Rate and Rhythm Respiratory: Yes: WNL, Regular, CTA Bilaterally Gastrointestinal: Yes: WNL, Normal Bowel Sounds Genitourinary: Yes: WNL Musculoskeletal: Yes: WNL Extremities: Yes: WNL Edema: No Integumentary: Yes: WNL Neurological: Yes: WNL, Alert, Oriented ...Motor Strength: WNL Psychiatric: Yes: WNL Labs: CBC, BMP 09/02/19 06:55 09/02/19 06:55 INR, PTT INR 1.53 (0.83-1.09) H 08/31/19 12:31 Problem List - Problems (1) BEKA (acute kidney injury) Code(s): N17.9 - ACUTE KIDNEY FAILURE, UNSPECIFIED (2) Acute urinary retention Code(s): R33.8 - OTHER RETENTION OF URINE (3) Gross hematuria Code(s): R31.0 - GROSS HEMATURIA (4) Leukocytosis Code(s): D72.829 - ELEVATED WHITE BLOOD CELL COUNT, UNSPECIFIED (5) Abdominal bloating Code(s): R14.0 - ABDOMINAL DISTENSION (GASEOUS) (6) Abdominal discomfort Code(s): R10.9 - UNSPECIFIED ABDOMINAL PAIN (7) Abnormal liver enzymes Code(s): R74.8 - ABNORMAL LEVELS OF OTHER SERUM ENZYMES (8) Acute respiratory failure with hypoxia and hypercapnia Code(s): J96.01 - ACUTE RESPIRATORY FAILURE WITH HYPOXIA; J96.02 - ACUTE RESPIRATORY FAILURE WITH HYPERCAPNIA (9) Anemia Code(s): D64.9 - ANEMIA, UNSPECIFIED (10) Atrial fibrillation Code(s): I48.91 - UNSPECIFIED ATRIAL FIBRILLATION (11) BPH (benign prostatic hyperplasia) Code(s): N40.0 - BENIGN PROSTATIC HYPERPLASIA WITHOUT LOWER URINRY TRACT SYMP (12) CHF (congestive heart failure) Code(s): I50.9 - HEART FAILURE, UNSPECIFIED Qualifiers: Heart failure type: unspecified Heart failure chronicity: chronic Qualified Code(s): I50.9 - Heart failure, unspecified (13) Chronic combined systolic and diastolic CHF, NYHA class 4 Code(s): I50.42 - CHRONIC COMBINED SYSTOLIC AND DIASTOLIC HRT FAIL (14) Chronic hypoxemic respiratory failure Code(s): J96.11 - CHRONIC RESPIRATORY FAILURE WITH HYPOXIA (15) Depression Code(s): F32.9 - MAJOR DEPRESSIVE DISORDER, SINGLE EPISODE, UNSPECIFIED (16) Diabetes Code(s): E11.9 - TYPE 2 DIABETES MELLITUS WITHOUT COMPLICATIONS Qualifiers: Diabetes mellitus type: other specified (including TAN) Diabetes mellitus continuous churn buttermaker insulin use: unspecified continuous churn buttermaker insulin use status Diabetes mellitus complication status: with other specified complication Qualified Code (s): E13.69 - Other specified diabetes mellitus with other specified complication (17) Dyspnea Code(s): R06.00 - DYSPNEA, UNSPECIFIED Qualifiers: Dyspnea type: unspecified Qualified Code(s): R06.00 - Dyspnea, unspecified (18) Early satiety Code(s): R68.81 - EARLY SATIETY (19) Elevated troponin Code(s): R74.8 - ABNORMAL LEVELS OF OTHER SERUM ENZYMES (20) Extremity pain Code(s): M79.609 - PAIN IN UNSPECIFIED LIMB (21) Fall Code(s): W19.XXXA - UNSPECIFIED FALL, INITIAL ENCOUNTER (22) Gallstones Code(s): K80.20 - CALCULUS OF GALLBLADDER W/O CHOLECYSTITIS W/O OBSTRUCTION (23) HLD (hyperlipidemia) Code(s): E78.5 - HYPERLIPIDEMIA, UNSPECIFIED (24) Hypertension Code(s): I10 - ESSENTIAL (PRIMARY) HYPERTENSION Qualifiers: Hypertension type: unspecified Qualified Code(s): I10 - Essential (primary ) hypertension (25) Hypomagnesemia Code(s): E83.42 - HYPOMAGNESEMIA (26) Increased oxygen demand Code(s): R06.89 - OTHER ABNORMALITIES OF BREATHING (27) Morbid obesity Code(s): E66.01 - MORBID (SEVERE) OBESITY DUE TO EXCESS CALORIES (28) PSVT (paroxysmal supraventricular tachycardia) Code(s): I47.1 - SUPRAVENTRICULAR TACHYCARDIA (29) Paroxysmal A-fib Code(s): I48.0 - PAROXYSMAL ATRIAL FIBRILLATION (30) Pneumonia Code(s): J18.9 - PNEUMONIA, UNSPECIFIED ORGANISM (31) Prophylactic measure Code(s): Z29.9 - ENCOUNTER FOR PROPHYLACTIC MEASURES, UNSPECIFIED (32) Pulmonary HTN Code(s): I27.2 - OTHER SECONDARY PULMONARY HYPERTENSION * DO NOT USE * (33) Splenic artery aneurysm Code(s): I72.8 - ANEURYSM OF OTHER SPECIFIED ARTERIES (34) Symptomatic anemia Code(s): D64.9 - ANEMIA, UNSPECIFIED (35) Systolic CHF Code(s): I50.20 - UNSPECIFIED SYSTOLIC (CONGESTIVE) HEART FAILURE Assessment/Plan 78 y/o male with past medical history of DM, CHF, Afib, Anemia. Patient presented to ER from [facility] for hematuria. Currently patient in NSR Plan; AGREE WITH HOLDING ELIQUIS. D/C ENTRESTO D/c Digoxin repeat ECHO cont Lasix and BB cleared from cardiac point of view for cysto/TURP
[2019-09-02] MEDS: POTASSIUM CHLORIDE TABS 20 MEQ TABLET.ER (FP) PO SCH (11:00)
[2019-09-02] MEDS: ASPIRIN COATED 81 MG TABLET.EC PO SCH (11:00)
[2019-09-02] MEDS: MULTIVITAMINS (DAILY MVI) TABLET (FP) PO SCH (11:00)
[2019-09-02] MEDS: TAMSULOSIN HCL 0.4 MG CAP PO SCH (11:00)
[2019-09-02] MEDS: POLYETHYLENE GLYCOL 3350 119 GM BTL PO SCH (11:01)
[2019-09-02] MEDS: CEFTRIAXONE 1 GM in DEXTROSE 5%-WATER - 50 ML IVPB SCH (11:07)
--- NOTE | 2019-09-02 12:46 | PN ---
Progress Note (short form) - Note Progress Note: Renal follow up for BEKA Seen and examined at the bedside reports discomfort in his heels denies any shortness of breath at rest but says that his breathing is not normal no cough no abd pain, fever or chills making urine Cysto was canceled due to low Hgb levels Vital Signs Temperature 99 F 09/02/19 07:52 Pulse Rate 92 H 09/02/19 07:52 Respiratory Rate 18 09/02/19 09:00 Blood Pressure 104/56 L 09/02/19 07:52 O2 Sat by Pulse Oximetry (%) 97 09/02/19 09:00 Intake & Output 08/30/19 08/31/19 09/01/19 09/02/19 23:59 23:59 23:59 23:59 Intake Total 3900 2400 2000 Output Total 6800 7300 2600 Balance -2900 -4900 -600 Weight 102.058 kg 102.784 kg NAD awake and alert neck supple RRR CTA soft NT/ND no LE edema CBC, BMP 09/02/19 06:55 09/02/19 06:55 Current Medications Acetaminophen (Tylenol -) 650 mg PO Q6H PRN PRN Reason: FEVER Last Admin: 09/01/19 23:14 Dose: 650 mg Al Hydroxide/Mg Hydroxide (Mylanta Oral Suspension -) 30 ml PO Q6H PRN PRN Reason: DYSPEPSIA Albuterol/Ipratropium (Duoneb -) 1 amp NEB RQID [facility] Last Admin: 09/02/19 08:15 Dose: 1 amp Amlodipine Besylate (Norvasc -) 5 mg PO DAILY [facility] Last Admin: 09/01/19 10:48 Dose: 5 mg Apixaban (Eliquis -) 5 mg PO BID [facility] Aspirin (Ecotrin -) 81 mg PO DAILY [facility] Last Admin: 09/02/19 11:00 Dose: 81 mg Atorvastatin Calcium (Lipitor -) 40 mg PO HS [facility] Last Admin: 09/01/19 23:15 Dose: 40 mg Docusate Sodium (Colace -) 300 mg PO HS [facility] Last Admin: 09/01/19 23:15 Dose: 300 mg Furosemide (Lasix -) 80 mg PO DAILY [facility] Last Admin: 09/01/19 10:48 Dose: 80 mg Gabapentin (Neurontin -) 300 mg PO TID [facility] Last Admin: 09/02/19 06:41 Dose: Not Given Ceftriaxone Sodium 1 gm/ (Dextrose) 50 mls @ 100 mls/hr IVPB DAILY [facility]; Protocol Last Admin: 09/02/19 11:07 Dose: 100 mls/hr Insulin Aspart (Novolog Vial Sliding Scale -) 1 vial SQ ACHS [facility]; Protocol Last Admin: 09/02/19 06:41 Dose: Not Given Isosorbide Mononitrate (Imdur -) 60 mg PO DAILY [facility] Last Admin: 09/01/19 10:48 Dose: 60 mg Lidocaine (Lidoderm Patch -) 1 patch TP DAILY [facility] Last Admin: 09/01/19 10:49 Dose: 1 patch Melatonin (Melatonin) 3 mg PO HS [facility] Last Admin: 09/01/19 23:15 Dose: 3 mg Metoprolol Tartrate (Lopressor -) 25 mg PO BID [facility] Last Admin: 09/01/19 23:12 Dose: Not Given Miscellaneous (Lidoderm Patch Removal) 1 each MC DAILY@2200 [facility] Last Admin: 09/01/19 23:15 Dose: 1 each Multivitamins/Minerals/Vitamin C (Tab-A-Vit -) 1 tab PO DAILY [facility] Last Admin: 09/02/19 11:00 Dose: 1 tab Polyethylene Glycol (Miralax (For Daily Use) -) 17 gm PO DAILY [facility] Last Admin: 09/02/19 11:01 Dose: Not Given Potassium Chloride (K-Dur -) 40 meq PO DAILY [facility] Last Admin: 09/02/19 11:00 Dose: 40 meq Tamsulosin HCl (Flomax -) 0.4 mg PO DAILY@0830 [facility] Last Admin: 09/02/19 11:00 Dose: 0.4 mg 78 year old gentleman with history of CHF with reduced LVEF, Afib, Anemia and DM who presented from [place] with gross hematuria and found to have BEKA. 1. Acute kidney injury likely due to intravascular volume depletion (diuretics/ anemia) 2. Hematuria 3. CHF with reduced LVEF 4. Afib on Eliquis 5. 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
--- NOTE | 2019-09-02 13:12 | PN ---
Progress Note, Physician Chief Complaint: cystoocopy postponed bc of low h/h cbi in progress - Current Medication List Current Medications: Active Medications Acetaminophen (Tylenol -) 650 mg PO Q6H PRN PRN Reason: FEVER Last Admin: 09/01/19 23:14 Dose: 650 mg Al Hydroxide/Mg Hydroxide (Mylanta Oral Suspension -) 30 ml PO Q6H PRN PRN Reason: DYSPEPSIA Albuterol/Ipratropium (Duoneb -) 1 amp NEB RQID [facility] Last Admin: 09/02/19 08:15 Dose: 1 amp Amlodipine Besylate (Norvasc -) 5 mg PO DAILY [facility] Last Admin: 09/01/19 10:48 Dose: 5 mg Apixaban (Eliquis -) 5 mg PO BID [facility] Aspirin (Ecotrin -) 81 mg PO DAILY [facility] Last Admin: 09/02/19 11:00 Dose: 81 mg Atorvastatin Calcium (Lipitor -) 40 mg PO HS [facility] Last Admin: 09/01/19 23:15 Dose: 40 mg Docusate Sodium (Colace -) 300 mg PO HS [facility] Last Admin: 09/01/19 23:15 Dose: 300 mg Gabapentin (Neurontin -) 300 mg PO TID [facility] Last Admin: 09/02/19 06:41 Dose: Not Given Ceftriaxone Sodium 1 gm/ (Dextrose) 50 mls @ 100 mls/hr IVPB DAILY [facility]; Protocol Last Admin: 09/02/19 11:07 Dose: 100 mls/hr Insulin Aspart (Novolog Vial Sliding Scale -) 1 vial SQ ACHS [facility]; Protocol Last Admin: 09/02/19 06:41 Dose: Not Given Isosorbide Mononitrate (Imdur -) 60 mg PO DAILY [facility] Last Admin: 09/01/19 10:48 Dose: 60 mg Lidocaine (Lidoderm Patch -) 1 patch TP DAILY [facility] Last Admin: 09/01/19 10:49 Dose: 1 patch Melatonin (Melatonin) 3 mg PO HS [facility] Last Admin: 09/01/19 23:15 Dose: 3 mg Metoprolol Tartrate (Lopressor -) 25 mg PO BID [facility] Last Admin: 09/01/19 23:12 Dose: Not Given Miscellaneous (Lidoderm Patch Removal) 1 each MC DAILY@2200 [facility] Last Admin: 09/01/19 23:15 Dose: 1 each Multivitamins/Minerals/Vitamin C (Tab-A-Vit -) 1 tab PO DAILY [facility] Last Admin: 09/02/19 11:00 Dose: 1 tab Polyethylene Glycol (Miralax (For Daily Use) -) 17 gm PO DAILY [facility] Last Admin: 09/02/19 11:01 Dose: Not Given Potassium Chloride (K-Dur -) 40 meq PO DAILY [facility] Last Admin: 09/02/19 11:00 Dose: 40 meq Tamsulosin HCl (Flomax -) 0.4 mg PO DAILY@0830 [facility] Last Admin: 09/02/19 11:00 Dose: 0.4 mg - Objective Vital Signs: Vital Signs Temperature 99 F 09/02/19 07:52 Pulse Rate 92 H 09/02/19 07:52 Respiratory Rate 18 09/02/19 09:00 Blood Pressure 104/56 L 09/02/19 07:52 O2 Sat by Pulse Oximetry (%) 97 09/02/19 09:00 Constitutional: Yes: Calm Cardiovascular: Yes: Regular Rate and Rhythm, S1, S2 Respiratory: Yes: CTA Bilaterally Gastrointestinal: Yes: Normal Bowel Sounds, Soft Genitourinary: Yes: Other (CBI) Labs: CBC, BMP 09/02/19 06:55 09/02/19 06:55 INR, PTT INR 1.53 (0.83-1.09) H 08/31/19 12:31 Problem List - Problems (1) Gross hematuria Assessment/Plan: Cysto on hold bc of low h/h prbc today and then iv venofer for 3 doses monitor h/h urology on board Code(s): R31.0 - GROSS HEMATURIA (2) BEKA (acute kidney injury) Assessment/Plan: renal sono- normal kidney no hydronephrosis Code(s): N17.9 - ACUTE KIDNEY FAILURE, UNSPECIFIED (3) UTI (urinary tract infection) Assessment/Plan: Microbiology 08/31/19 12:39 Urine - Urine Iqbal Urine Culture - Preliminary Proteus Species iv abx Code(s): N39.0 - URINARY TRACT INFECTION, SITE NOT SPECIFIED
[2019-09-02] MEDS ORDERED: IRON SUCROSE INJECTION 200 MG in SODIUM CHLORIDE 90 ML IVPB ONE (13:19)
--- NOTE | 2019-09-02 14:16 | PN ---
Progress Note, Physician History of Present Illness: C/O SUPRAPUBIC PAIN WITH COUGH CBI IN PROGRESS URINE CLEAR LOW GRADE TEMP WBC IMPROVED CR 2.0 BC (-) URINE C/S PROTEUS SP - Current Medication List Current Medications: Active Medications Acetaminophen (Tylenol -) 650 mg PO Q6H PRN PRN Reason: FEVER Last Admin: 09/01/19 23:14 Dose: 650 mg Al Hydroxide/Mg Hydroxide (Mylanta Oral Suspension -) 30 ml PO Q6H PRN PRN Reason: DYSPEPSIA Albuterol/Ipratropium (Duoneb -) 1 amp NEB RQID [facility] Last Admin: 09/02/19 11:50 Dose: 1 amp Amlodipine Besylate (Norvasc -) 5 mg PO DAILY [facility] Last Admin: 09/01/19 10:48 Dose: 5 mg Apixaban (Eliquis -) 5 mg PO BID [facility] Aspirin (Ecotrin -) 81 mg PO DAILY [facility] Last Admin: 09/02/19 11:00 Dose: 81 mg Atorvastatin Calcium (Lipitor -) 40 mg PO HS [facility] Last Admin: 09/01/19 23:15 Dose: 40 mg Docusate Sodium (Colace -) 300 mg PO HS [facility] Last Admin: 09/01/19 23:15 Dose: 300 mg Gabapentin (Neurontin -) 300 mg PO TID [facility] Last Admin: 09/02/19 13:40 Dose: 300 mg Ceftriaxone Sodium 1 gm/ (Dextrose) 50 mls @ 100 mls/hr IVPB DAILY [facility]; Protocol Last Admin: 09/02/19 11:07 Dose: 100 mls/hr Iron Sucrose 200 mg/ Sodium (Chloride) 100 mls @ 100 mls/hr IVPB ONCE ONE Stop: 09/02/19 14:18 Insulin Aspart (Novolog Vial Sliding Scale -) 1 vial SQ ACHS [facility]; Protocol Last Admin: 09/02/19 13:39 Dose: Not Given Isosorbide Mononitrate (Imdur -) 60 mg PO DAILY [facility] Last Admin: 09/01/19 10:48 Dose: 60 mg Lidocaine (Lidoderm Patch -) 1 patch TP DAILY [facility] Last Admin: 09/02/19 10:43 Dose: 1 patch Melatonin (Melatonin) 3 mg PO HS [facility] Last Admin: 09/01/19 23:15 Dose: 3 mg Metoprolol Tartrate (Lopressor -) 25 mg PO BID [facility] Last Admin: 09/01/19 23:12 Dose: Not Given Miscellaneous (Lidoderm Patch Removal) 1 each MC DAILY@2200 [facility] Last Admin: 09/01/19 23:15 Dose: 1 each Multivitamins/Minerals/Vitamin C (Tab-A-Vit -) 1 tab PO DAILY [facility] Last Admin: 09/02/19 11:00 Dose: 1 tab Polyethylene Glycol (Miralax (For Daily Use) -) 17 gm PO DAILY [facility] Last Admin: 09/02/19 11:01 Dose: Not Given Potassium Chloride (K-Dur -) 40 meq PO DAILY [facility] Last Admin: 09/02/19 11:00 Dose: 40 meq Tamsulosin HCl (Flomax -) 0.4 mg PO DAILY@0830 [facility] Last Admin: 09/02/19 11:00 Dose: 0.4 mg - Objective Vital Signs: Vital Signs Temperature 99 F 09/02/19 07:52 Pulse Rate 92 H 09/02/19 07:52 Respiratory Rate 18 09/02/19 09:00 Blood Pressure 104/56 L 09/02/19 07:52 O2 Sat by Pulse Oximetry (%) 97 09/02/19 09:00 Constitutional: Yes: No Distress Eyes: Yes: Conjunctiva Clear Cardiovascular: Yes: Regular Rate and Rhythm, S1, S2 Respiratory: Yes: CTA Bilaterally Gastrointestinal: Yes: Normal Bowel Sounds, Soft, Tenderness, Other (+ SUPRAPUBIC TENDERNESS) Labs: CBC, BMP 09/02/19 06:55 09/02/19 06:55 INR, PTT INR 1.53 (0.83-1.09) H 08/31/19 12:31 Assessment/Plan UTI PROTEUS ACUTE URINARY RETENTION S/P HEMATURIA AZOTEMIA CONTINUE CEFTRIAXONE
[2019-09-02] MEDS ORDERED: PT OWN MED DRAWER 7, Y5N ONE ×2 (17:19→22:28)
[2019-09-02] MEDS: amLODIPine BESYLATE 5 MG TABLET (FP) PO SCH (17:57)
[2019-09-02] MEDS: METOPROLOL TARTRATE 25 MG TABLET (FP) PO SCH ×2 (17:57→22:45)
[2019-09-02] MEDS: ISOSORBIDE MONONITRATE 60 MG TAB.SR.24H (FP) PO SCH (17:57)
[2019-09-02] MEDS: FUROSEMIDE 40 MG TABLET (FP) PO SCH (17:59)
[2019-09-02] MEDS: ATORVASTATIN CA 40 MG TABLET (FP) PO SCH (22:43)
[2019-09-02] MEDS: MELATONIN 1 MG TABLET PO SCH (22:44)
[2019-09-02] MEDS: DOCUSATE SODIUM 100 MG CAPSULE (FP) PO SCH (22:46)
[2019-09-02] MEDS: LIDOCAINE PATCH REMOVAL MC SCH (22:46)
[2019-09-03] MEDS: GABAPENTIN 300 MG CAPSULE (FP) PO SCH ×3 (06:28→22:06)
[2019-09-03] MEDS: INSULIN SLIDING SCALE (NOVOLOG) 1 VIAL SQ SCH ×3 (06:29→17:10)
[2019-09-03 07:01] LABS: BASO % 0.2 % (0-2.0); EOS % 2.1 % (0-4.5); HEMATOCRIT 24.3 % (35.4-49); LYMPH % 6.2 % (8-40); MCH 30.4 pg (25.7-33.7); MCHC 32.8 g/dl (32.0-35.9); MEAN CELL VOLUME 92.7 fl (80-96); MEAN PLT VOLUME 8.4 fl (7.5-11.1); MONO % 6.9 % (3.8-10.2); NEUT % 84.6 % (42.8-82.8); PLATELET COUNT 181 K/MM3 (134-434); RBC 2.62 M/mm3 (4.00-5.60); RDW 17.6 % (11.9-15.9); WHITE BLOOD COUNT 10.6 K/mm3 (4.0-10.0)
[2019-09-03 08:13] LABS: BLOOD UREA NITROGEN 49.8 mg/dL (7-18); CALCIUM 8.8 mg/dL (8.5-10.1); CREATININE 1.7 mg/dL (0.55-1.3); MAGNESIUM 2.8 mg/dL (1.8-2.4); PHOSPHOROUS 3.9 mg/dL (2.5-4.9); POTASSIUM 4.1 mmol/L (3.5-5.1)
[2019-09-03] MEDS: ALBUTEROL SO4 2.5/IPRATROPIUM 0.5 INH SOL 3 ML VIAL.NEB. NEB SCH ×4 (08:25→20:35)
--- NOTE | 2019-09-03 09:08 | PN ---
Progress Note, Physician Chief Complaint: Hematuria BEKA UTI History of Present Illness: NAD CBI clear Awaiting UTI to clear for Urology to do cystoscopy - Current Medication List Current Medications: Active Medications Acetaminophen (Tylenol -) 650 mg PO Q6H PRN PRN Reason: FEVER Last Admin: 09/01/19 23:14 Dose: 650 mg Al Hydroxide/Mg Hydroxide (Mylanta Oral Suspension -) 30 ml PO Q6H PRN PRN Reason: DYSPEPSIA Albuterol/Ipratropium (Duoneb -) 1 amp NEB RQID [facility] Last Admin: 09/03/19 08:25 Dose: 1 amp Amlodipine Besylate (Norvasc -) 5 mg PO DAILY [facility] Last Admin: 09/02/19 17:57 Dose: Not Given Apixaban (Eliquis -) 5 mg PO BID [facility] Aspirin (Ecotrin -) 81 mg PO DAILY [facility] Last Admin: 09/02/19 11:00 Dose: 81 mg Atorvastatin Calcium (Lipitor -) 40 mg PO HS [facility] Last Admin: 09/02/19 22:43 Dose: 40 mg Docusate Sodium (Colace -) 300 mg PO [facility] Last Admin: 09/02/19 22:46 Dose: 300 mg Gabapentin (Neurontin -) 300 mg PO TID [facility] Last Admin: 09/03/19 06:28 Dose: 300 mg Ceftriaxone Sodium 1 gm/ (Dextrose) 50 mls @ 100 mls/hr IVPB DAILY [facility]; Protocol Last Admin: 09/02/19 11:07 Dose: 100 mls/hr Insulin Aspart (Novolog Vial Sliding Scale -) 1 vial SQ ACHS [facility]; Protocol Last Admin: 09/03/19 06:29 Dose: Not Given Isosorbide Mononitrate (Imdur -) 60 mg PO DAILY [facility] Last Admin: 09/02/19 17:57 Dose: Not Given Lidocaine (Lidoderm Patch -) 1 patch TP DAILY [facility] Last Admin: 09/02/19 10:43 Dose: 1 patch Melatonin (Melatonin) 3 mg PO HS [facility] Last Admin: 09/02/19 22:44 Dose: 3 mg Metoprolol Tartrate (Lopressor -) 25 mg PO BID [facility] Last Admin: 09/02/19 22:45 Dose: Not Given Miscellaneous (Lidoderm Patch Removal) 1 each MC DAILY@2200 [facility] Last Admin: 09/02/19 22:46 Dose: 1 each Multivitamins/Minerals/Vitamin C (Tab-A-Vit -) 1 tab PO DAILY [facility] Last Admin: 09/02/19 11:00 Dose: 1 tab Polyethylene Glycol (Miralax (For Daily Use) -) 17 gm PO DAILY [facility] Last Admin: 09/02/19 11:01 Dose: Not Given Potassium Chloride (K-Dur -) 40 meq PO DAILY [facility] Last Admin: 09/02/19 11:00 Dose: 40 meq Tamsulosin HCl (Flomax -) 0.4 mg PO DAILY@0830 [facility] Last Admin: 09/02/19 11:00 Dose: 0.4 mg - Objective Vital Signs: Vital Signs Temperature 98.4 F 09/03/19 05:00 Pulse Rate 86 09/03/19 05:00 Respiratory Rate 18 09/03/19 05:00 Blood Pressure 102/49 L 09/03/19 05:00 O2 Sat by Pulse Oximetry (%) 97 09/02/19 09:00 Constitutional: Yes: Well Nourished, No Distress, Calm Cardiovascular: Yes: Regular Rate and Rhythm Respiratory: Yes: Regular Gastrointestinal: Yes: Normal Bowel Sounds, Soft Genitourinary: Yes: Iqbal Present Musculoskeletal: Yes: WNL Extremities: Yes: WNL Edema: No Peripheral Pulses WNL: Yes Neurological: Yes: Alert, Oriented Psychiatric: Yes: Alert, Oriented Labs: CBC, BMP 09/03/19 06:30 09/03/19 06:30 INR, PTT INR 1.53 (0.83-1.09) H 08/31/19 12:31 Problem List - Problems (1) BEKA (acute kidney injury) Assessment/Plan: -Cr improved -Nephrology on board -Monitor trend -likely 2/2 to UTI Problems reviewed: Yes Code(s): N17.9 - ACUTE KIDNEY FAILURE, UNSPECIFIED (2) Gross hematuria Assessment/Plan: -resolved -H/H stable -CBI cleared -Seen by Urology -Await UTI to clear before urology can do cystoscopy Problems reviewed: Yes Code(s): R31.0 - GROSS HEMATURIA (3) UTI (urinary tract infection) Assessment/Plan: -ID on board -IV abx -UC: Microbiology 08/31/19 20:00 Blood - Peripheral Venous Blood Culture - Preliminary NO GROWTH OBTAINED AFTER 48 HOURS, INCUBATION TO CONTINUE FOR 3 DAYS. 10/23/19 20:00 Blood - Peripheral Venous Blood Culture - Preliminary NO GROWTH OBTAINED AFTER 48 HOURS, INCUBATION TO CONTINUE FOR 3 DAYS. 08/31/19 12:39 Urine - Urine Iqbal Urine Culture - Final Proteus Mirabilis -afebrile Problems reviewed: Yes Code(s): N39.0 - URINARY TRACT INFECTION, SITE NOT SPECIFIED Assessment/Plan see problem list
[2019-09-03] MEDS ORDERED: cefTRIAXone SODIUM 1 GM VIAL ONE (09:23)
[2019-09-03] MEDS ORDERED: DEXTROSE 5%-WATER - 50 ML IVPB ONE (09:23)
[2019-09-03] MEDS: CEFTRIAXONE 1 GM in DEXTROSE 5%-WATER - 50 ML IVPB SCH (09:47)
[2019-09-03] MEDS: ASPIRIN COATED 81 MG TABLET.EC PO SCH (09:47)
[2019-09-03] MEDS: ISOSORBIDE MONONITRATE 60 MG TAB.SR.24H (FP) PO SCH (09:47)
[2019-09-03] MEDS: TAMSULOSIN HCL 0.4 MG CAP PO SCH (09:48)
[2019-09-03] MEDS: amLODIPine BESYLATE 5 MG TABLET (FP) PO SCH (09:52)
[2019-09-03] MEDS: METOPROLOL TARTRATE 25 MG TABLET (FP) PO SCH ×2 (09:52→22:06)
[2019-09-03] MEDS: POTASSIUM CHLORIDE TABS 20 MEQ TABLET.ER (FP) PO SCH (10:01)
[2019-09-03] MEDS: MULTIVITAMINS (DAILY MVI) TABLET (FP) PO SCH (10:02)
[2019-09-03] MEDS: LIDOCAINE 5% TOPICAL PATCH TP SCH (10:02)
[2019-09-03] MEDS: POLYETHYLENE GLYCOL 3350 119 GM BTL PO SCH (10:05)
--- NOTE | 2019-09-03 14:56 | PN ---
Progress Note, Physician History of Present Illness: Pt seen and examined at bedside. He is awake and alert. He denies shortness of breath. He is getting CBI. - Current Medication List Current Medications: Active Medications Acetaminophen (Tylenol -) 650 mg PO Q6H PRN PRN Reason: FEVER Last Admin: 09/01/19 23:14 Dose: 650 mg Al Hydroxide/Mg Hydroxide (Mylanta Oral Suspension -) 30 ml PO Q6H PRN PRN Reason: DYSPEPSIA Albuterol/Ipratropium (Duoneb -) 1 amp NEB RQID [facility] Last Admin: 09/03/19 11:34 Dose: 1 amp Amlodipine Besylate (Norvasc -) 5 mg PO DAILY [facility] Last Admin: 09/03/19 09:52 Dose: Not Given Apixaban (Eliquis -) 5 mg PO BID [facility] Aspirin (Ecotrin -) 81 mg PO DAILY [facility] Last Admin: 09/03/19 09:47 Dose: 81 mg Atorvastatin Calcium (Lipitor -) 40 mg PO HS [facility] Last Admin: 09/02/19 22:43 Dose: 40 mg Docusate Sodium (Colace -) 300 mg PO HS [facility] Last Admin: 09/02/19 22:46 Dose: 300 mg Gabapentin (Neurontin -) 300 mg PO TID [facility] Last Admin: 09/03/19 14:27 Dose: 300 mg Ceftriaxone Sodium 1 gm/ (Dextrose) 50 mls @ 100 mls/hr IVPB DAILY [facility]; Protocol Last Admin: 09/03/19 09:47 Dose: 100 mls/hr Insulin Aspart (Novolog Vial Sliding Scale -) 1 vial SQ ACHS [facility]; Protocol Last Admin: 09/03/19 12:00 Dose: Not Given Isosorbide Mononitrate (Imdur -) 60 mg PO DAILY [facility] Last Admin: 09/03/19 09:47 Dose: 60 mg Lidocaine (Lidoderm Patch -) 1 patch TP DAILY [facility] Last Admin: 09/03/19 10:02 Dose: 1 patch Melatonin (Melatonin) 3 mg PO HS [facility] Last Admin: 09/02/19 22:44 Dose: 3 mg Metoprolol Tartrate (Lopressor -) 25 mg PO BID [facility] Last Admin: 09/03/19 09:52 Dose: Not Given Miscellaneous (Lidoderm Patch Removal) 1 each MC DAILY@2200 [facility] Last Admin: 09/02/19 22:46 Dose: 1 each Multivitamins/Minerals/Vitamin C (Tab-A-Vit -) 1 tab PO DAILY [facility] Last Admin: 09/03/19 10:02 Dose: 1 tab Polyethylene Glycol (Miralax (For Daily Use) -) 17 gm PO DAILY [facility] Last Admin: 09/03/19 10:05 Dose: 17 gm Potassium Chloride (K-Dur -) 40 meq PO DAILY [facility] Last Admin: 09/03/19 10:01 Dose: 40 meq Tamsulosin HCl (Flomax -) 0.4 mg PO DAILY@0830 [facility] Last Admin: 09/03/19 09:48 Dose: 0.4 mg - Objective Vital Signs: Vital Signs Temperature 98.6 F 09/03/19 13:58 Pulse Rate 92 H 09/03/19 13:58 Respiratory Rate 18 09/03/19 13:58 Blood Pressure 107/50 L 09/03/19 13:58 O2 Sat by Pulse Oximetry (%) 97 09/02/19 09:00 Constitutional: Yes: Calm Eyes: Yes: Conjunctiva Clear HENT: Yes: Atraumatic Neck: Yes: Supple Cardiovascular: Yes: S1, S2 Respiratory: Yes: CTA Bilaterally Gastrointestinal: Yes: Normal Bowel Sounds, Soft Genitourinary: Yes: Other (CBI). No: Hematuria Musculoskeletal: Yes: WNL Edema: No Integumentary: Yes: WNL Neurological: Yes: Oriented Psychiatric: Yes: Oriented Labs: CBC, BMP 09/03/19 06:30 09/03/19 06:30 INR, PTT INR 1.53 (0.83-1.09) H 08/31/19 12:31 Assessment/Plan Current Medications Generic Name Dose Route Start Last Admin Trade Name Freq PRN Reason Stop Dose Admin Acetaminophen 650 mg 08/31/19 15:53 09/01/19 23:14 Tylenol - PO 650 mg Q6H PRN Administration FEVER Al Hydroxide/Mg Hydroxide 30 ml 08/31/19 18:00 Mylanta Oral Suspension - PO Q6H PRN DYSPEPSIA Albuterol/Ipratropium 1 amp 08/31/19 20:00 09/03/19 11:34 Duoneb - NEB 1 amp RQID [facility] Administration Amlodipine Besylate 5 mg 09/01/19 10:00 09/03/19 09:52 Norvasc - PO Not Given DAILY [facility] Apixaban 5 mg 08/31/19 22:00 Eliquis - PO BID [facility] Aspirin 81 mg 09/01/19 10:00 09/03/19 09:47 Ecotrin - PO 81 mg DAILY [facility] Administration Atorvastatin Calcium 40 mg 08/31/19 22:00 09/02/19 22:43 Lipitor - PO 40 mg HS [facility] Administration Docusate Sodium 300 mg 08/31/19 22:00 09/02/19 22:46 Colace - PO 300 mg HS [facility] Administration Gabapentin 300 mg 08/31/19 22:00 09/03/19 14:27 Neurontin - PO 300 mg TID [facility] Administration Ceftriaxone Sodium 1 gm/ 50 mls @ 100 mls/hr 08/31/19 18:30 09/03/19 09:47 Dextrose IVPB 100 mls/hr DAILY [facility] Administration Protocol Insulin Aspart 1 vial 08/31/19 16:30 09/03/19 12:00 Novolog Vial Sliding Scale - SQ Not Given ACHS [facility] Protocol Isosorbide Mononitrate 60 mg 09/01/19 10:00 09/03/19 09:47 Imdur - PO 60 mg DAILY [facility] Administration Lidocaine 1 patch 09/01/19 10:00 09/03/19 10:02 Lidoderm Patch - TP 1 patch DAILY [facility] Administration Melatonin 3 mg 08/31/19 22:00 09/02/19 22:44 Melatonin PO 3 mg HS [facility] Administration Metoprolol Tartrate 25 mg 08/31/19 22:00 09/03/19 09:52 Lopressor - PO Not Given BID [facility] Miscellaneous 1 each 09/01/19 22:00 09/02/19 22:46 Lidoderm Patch Removal MC 1 each DAILY@2200 [facility] Administration Multivitamins/Minerals/Vitamin C 1 tab 09/01/19 10:00 09/03/19 10:02 Tab-A-Vit - PO 1 tab DAILY [facility] Administration Polyethylene Glycol 17 gm 09/01/19 10:00 09/03/19 10:05 Miralax (For Daily Use) - PO 17 gm DAILY [facility] Administration Potassium Chloride 40 meq 09/01/19 10:00 09/03/19 10:01 K-Dur - PO 40 meq DAILY [facility] Administration Tamsulosin HCl 0.4 mg 09/01/19 08:30 09/03/19 09:48 Flomax - PO 0.4 mg DAILY@0830 [facility] Administration Laboratory Tests 09/02/19 06:55 Iron 17 L TIBC 133 L Iron Saturation 12 L Laboratory Tests 09/02/19 06:55 Ferritin 506.4 H 1. BEKA 2. Hematuria 3. CHF with reduced LVEF 4. Afib on Eliquis 5. Anemia Plan - will need repeat ua once off of cbi - metolazone on hold, will monitor volume status - renal function is improving - repeat labs in am - start iron supplements and colace for constipation
--- NOTE | 2019-09-03 15:43 | PN ---
Progress Note, Physician History of Present Illness: The patient is a 78 year old male with history of diabetes, CHF, atrial fibrillation anemia who presents to the emergency department for evaluation of dysuria, hematuria, and urinary Retention since last night. Patient denies fever /chills/nausea/vomiting/melena.He comes from [facility] where a thomas was placed this morning. - Current Medication List Current Medications: Active Medications Acetaminophen (Tylenol -) 650 mg PO Q6H PRN PRN Reason: FEVER Last Admin: 09/01/19 23:14 Dose: 650 mg Al Hydroxide/Mg Hydroxide (Mylanta Oral Suspension -) 30 ml PO Q6H PRN PRN Reason: DYSPEPSIA Albuterol/Ipratropium (Duoneb -) 1 amp NEB RQID [facility] Last Admin: 09/03/19 15:25 Dose: 1 amp Amlodipine Besylate (Norvasc -) 5 mg PO DAILY [facility] Last Admin: 09/03/19 09:52 Dose: Not Given Apixaban (Eliquis -) 5 mg PO BID [facility] Aspirin (Ecotrin -) 81 mg PO DAILY [facility] Last Admin: 09/03/19 09:47 Dose: 81 mg Atorvastatin Calcium (Lipitor -) 40 mg PO HS [facility] Last Admin: 09/02/19 22:43 Dose: 40 mg Docusate Sodium (Colace -) 300 mg PO HS [facility] Last Admin: 09/02/19 22:46 Dose: 300 mg Ferrous Sulfate (Feosol -) 325 mg PO BID [facility] Gabapentin (Neurontin -) 300 mg PO TID [facility] Last Admin: 09/03/19 14:27 Dose: 300 mg Ceftriaxone Sodium 1 gm/ (Dextrose) 50 mls @ 100 mls/hr IVPB DAILY [facility]; Protocol Last Admin: 09/03/19 09:47 Dose: 100 mls/hr Insulin Aspart (Novolog Vial Sliding Scale -) 1 vial SQ ACHS [facility]; Protocol Last Admin: 09/03/19 12:00 Dose: Not Given Isosorbide Mononitrate (Imdur -) 60 mg PO DAILY [facility] Last Admin: 09/03/19 09:47 Dose: 60 mg Lidocaine (Lidoderm Patch -) 1 patch TP DAILY [facility] Last Admin: 09/03/19 10:02 Dose: 1 patch Melatonin (Melatonin) 3 mg PO HS [facility] Last Admin: 09/02/19 22:44 Dose: 3 mg Metoprolol Tartrate (Lopressor -) 25 mg PO BID [facility] Last Admin: 09/03/19 09:52 Dose: Not Given Miscellaneous (Lidoderm Patch Removal) 1 each MC DAILY@2200 [facility] Last Admin: 09/02/19 22:46 Dose: 1 each Multivitamins/Minerals/Vitamin C (Tab-A-Vit -) 1 tab PO DAILY [facility] Last Admin: 09/03/19 10:02 Dose: 1 tab Polyethylene Glycol (Miralax (For Daily Use) -) 17 gm PO DAILY [facility] Last Admin: 09/03/19 10:05 Dose: 17 gm Potassium Chloride (K-Dur -) 40 meq PO DAILY [facility] Last Admin: 09/03/19 10:01 Dose: 40 meq Tamsulosin HCl (Flomax -) 0.4 mg PO DAILY@0830 [facility] Last Admin: 09/03/19 09:48 Dose: 0.4 mg - Objective Vital Signs: Vital Signs Temperature 98.6 F 09/03/19 13:58 Pulse Rate 92 H 09/03/19 13:58 Respiratory Rate 18 09/03/19 13:58 Blood Pressure 107/50 L 09/03/19 13:58 O2 Sat by Pulse Oximetry (%) 97 09/02/19 09:00 Eyes: Yes: WNL, Conjunctiva Clear, EOM Intact HENT: Yes: WNL, Atraumatic, Normocephalic Neck: Yes: WNL, Supple, Trachea Midline Cardiovascular: Yes: WNL, Regular Rate and Rhythm Respiratory: Yes: WNL, Regular, CTA Bilaterally Gastrointestinal: Yes: WNL, Normal Bowel Sounds Genitourinary: Yes: WNL Musculoskeletal: Yes: WNL Extremities: Yes: WNL Edema: No Integumentary: Yes: WNL Neurological: Yes: WNL, Alert, Oriented ...Motor Strength: WNL Psychiatric: Yes: WNL Labs: CBC, BMP 09/03/19 06:30 09/03/19 06:30 INR, PTT INR 1.53 (0.83-1.09) H 08/31/19 12:31 Problem List - Problems (1) BEKA (acute kidney injury) Code(s): N17.9 - ACUTE KIDNEY FAILURE, UNSPECIFIED (2) Acute urinary retention Code(s): R33.8 - OTHER RETENTION OF URINE (3) Gross hematuria Code(s): R31.0 - GROSS HEMATURIA (4) Leukocytosis Code(s): D72.829 - ELEVATED WHITE BLOOD CELL COUNT, UNSPECIFIED (5) Abdominal bloating Code(s): R14.0 - ABDOMINAL DISTENSION (GASEOUS) (6) Abdominal discomfort Code(s): R10.9 - UNSPECIFIED ABDOMINAL PAIN (7) Abnormal liver enzymes Code(s): R74.8 - ABNORMAL LEVELS OF OTHER SERUM ENZYMES (8) Acute respiratory failure with hypoxia and hypercapnia Code(s): J96.01 - ACUTE RESPIRATORY FAILURE WITH HYPOXIA; J96.02 - ACUTE RESPIRATORY FAILURE WITH HYPERCAPNIA (9) Anemia Code(s): D64.9 - ANEMIA, UNSPECIFIED (10) Atrial fibrillation Code(s): I48.91 - UNSPECIFIED ATRIAL FIBRILLATION (11) BPH (benign prostatic hyperplasia) Code(s): N40.0 - BENIGN PROSTATIC HYPERPLASIA WITHOUT LOWER URINRY TRACT SYMP (12) CHF (congestive heart failure) Code(s): I50.9 - HEART FAILURE, UNSPECIFIED Qualifiers: Heart failure type: unspecified Heart failure chronicity: chronic Qualified Code(s): I50.9 - Heart failure, unspecified (13) Chronic combined systolic and diastolic CHF, NYHA class 4 Code(s): I50.42 - CHRONIC COMBINED SYSTOLIC AND DIASTOLIC HRT FAIL (14) Chronic hypoxemic respiratory failure Code(s): J96.11 - CHRONIC RESPIRATORY FAILURE WITH HYPOXIA (15) Depression Code(s): F32.9 - MAJOR DEPRESSIVE DISORDER, SINGLE EPISODE, UNSPECIFIED (16) Diabetes Code(s): E11.9 - TYPE 2 DIABETES MELLITUS WITHOUT COMPLICATIONS Qualifiers: Diabetes mellitus type: other specified (including TAN) Diabetes mellitus half-way 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 Diabetes mellitus complication status: with other specified complication Qualified Code (s): E13.69 - Other specified diabetes mellitus with other specified complication (17) Dyspnea Code(s): R06.00 - DYSPNEA, UNSPECIFIED Qualifiers: Dyspnea type: unspecified Qualified Code(s): R06.00 - Dyspnea, unspecified (18) Early satiety Code(s): R68.81 - EARLY SATIETY (19) Elevated troponin Code(s): R74.8 - ABNORMAL LEVELS OF OTHER SERUM ENZYMES (20) Extremity pain Code(s): M79.609 - PAIN IN UNSPECIFIED LIMB (21) Fall Code(s): W19.XXXA - UNSPECIFIED FALL, INITIAL ENCOUNTER (22) Gallstones Code(s): K80.20 - CALCULUS OF GALLBLADDER W/O CHOLECYSTITIS W/O OBSTRUCTION (23) HLD (hyperlipidemia) Code(s): E78.5 - HYPERLIPIDEMIA, UNSPECIFIED (24) Hypertension Code(s): I10 - ESSENTIAL (PRIMARY) HYPERTENSION Qualifiers: Hypertension type: unspecified Qualified Code(s): I10 - Essential (primary ) hypertension (25) Hypomagnesemia Code(s): E83.42 - HYPOMAGNESEMIA (26) Increased oxygen demand Code(s): R06.89 - OTHER ABNORMALITIES OF BREATHING (27) Morbid obesity Code(s): E66.01 - MORBID (SEVERE) OBESITY DUE TO EXCESS CALORIES (28) PSVT (paroxysmal supraventricular tachycardia) Code(s): I47.1 - SUPRAVENTRICULAR TACHYCARDIA (29) Paroxysmal A-fib Code(s): I48.0 - PAROXYSMAL ATRIAL FIBRILLATION (30) Pneumonia Code(s): J18.9 - PNEUMONIA, UNSPECIFIED ORGANISM (31) Prophylactic measure Code(s): Z29.9 - ENCOUNTER FOR PROPHYLACTIC MEASURES, UNSPECIFIED (32) Pulmonary HTN Code(s): I27.2 - OTHER SECONDARY PULMONARY HYPERTENSION * DO NOT USE * (33) Splenic artery aneurysm Code(s): I72.8 - ANEURYSM OF OTHER SPECIFIED ARTERIES (34) Symptomatic anemia Code(s): D64.9 - ANEMIA, UNSPECIFIED (35) Systolic CHF Code(s): I50.20 - UNSPECIFIED SYSTOLIC (CONGESTIVE) HEART FAILURE Assessment/Plan 78 y/o male with past medical history of DM, CHF, Afib, Anemia. Patient presented to ER from [facility] for hematuria. Currently patient in NSR Plan; AGREE WITH HOLDING ELIQUIS. D/C ENTRESTO D/c Digoxin repeat ECHO cont Lasix and BB
--- NOTE | 2019-09-03 18:03 | PN ---
Progress Note (short form) - Note Progress Note: UROLOGY NOTE. PT. WITH H/O GROSS HEMATURIA AND REC. UTI. WILL NEED CYSTO. POSS. BLADDER BX. AND FULGERATION ON THURSDAY IF MED. OK.
[2019-09-03] MEDS ORDERED: PHENAZOPYRIDINE HCL 100 MG TABLET (FP) PO ONE (19:05)
[2019-09-03] MEDS ORDERED: PT OWN MED DRAWER 7, Y5N ONE ×2 (20:08→21:56)
[2019-09-03] MEDS: DOCUSATE SODIUM 100 MG CAPSULE (FP) PO SCH (22:05)
[2019-09-03] MEDS: FERROUS SO4 325 MG TABLET (FP) PO SCH (22:06)
[2019-09-03] MEDS: ATORVASTATIN CA 40 MG TABLET (FP) PO SCH (22:06)
[2019-09-03] MEDS: ACETAMINOPHEN 325 MG TABLET (FP) PO PRN (22:07)
[2019-09-03] MEDS: MELATONIN 1 MG TABLET PO SCH (22:45)
[2019-09-03] MEDS: LIDOCAINE PATCH REMOVAL MC SCH (22:45)
[2019-09-04] MEDS: GABAPENTIN 300 MG CAPSULE (FP) PO SCH ×3 (06:48→21:37)
[2019-09-04 07:55] LABS: ALBUMIN 2.6 g/dl (3.4-5.0); BILIRUBIN,TOTAL 0.4 mg/dL (0.2-1); BLOOD UREA NITROGEN 47.6 mg/dL (7-18); CALCIUM 8.7 mg/dL (8.5-10.1); CREATININE 1.5 mg/dL (0.55-1.3); POTASSIUM 4.3 mmol/L (3.5-5.1); TOT PROT 5.6 g/dl (6.4-8.2)
[2019-09-04 08:06] LABS: BASO % 0.4 % (0-2.0); EOS % 2.8 % (0-4.5); HEMATOCRIT 25.3 % (35.4-49); LYMPH % 10.3 % (8-40); MCH 29.6 pg (25.7-33.7); MCHC 31.5 g/dl (32.0-35.9); MEAN CELL VOLUME 94.1 fl (80-96); MEAN PLT VOLUME 8.6 fl (7.5-11.1); MONO % 7.6 % (3.8-10.2); NEUT % 78.9 % (42.8-82.8); PLATELET COUNT 237 K/MM3 (134-434); RBC 2.69 M/mm3 (4.00-5.60); RDW 17.8 % (11.9-15.9); WHITE BLOOD COUNT 9.4 K/mm3 (4.0-10.0)
[2019-09-04] MEDS ORDERED: PT OWN MED DRAWER 7, Y5N ONE ×4 (08:08→21:25)
[2019-09-04] MEDS ORDERED: cefTRIAXone SODIUM 1 GM VIAL ONE (08:09)
[2019-09-04] MEDS ORDERED: DEXTROSE 5%-WATER - 50 ML IVPB ONE (08:09)
[2019-09-04] MEDS: ALBUTEROL SO4 2.5/IPRATROPIUM 0.5 INH SOL 3 ML VIAL.NEB. NEB SCH ×4 (08:14→20:15)
[2019-09-04] MEDS: TAMSULOSIN HCL 0.4 MG CAP PO SCH (09:39)
[2019-09-04] MEDS: METOPROLOL TARTRATE 25 MG TABLET (FP) PO SCH ×2 (09:40→21:37)
[2019-09-04] MEDS: POTASSIUM CHLORIDE TABS 20 MEQ TABLET.ER (FP) PO SCH (09:40)
[2019-09-04] MEDS: ASPIRIN COATED 81 MG TABLET.EC PO SCH (09:41)
[2019-09-04] MEDS: FERROUS SO4 325 MG TABLET (FP) PO SCH ×2 (09:41→21:37)
[2019-09-04] MEDS: amLODIPine BESYLATE 5 MG TABLET (FP) PO SCH (09:43)
[2019-09-04] MEDS: ISOSORBIDE MONONITRATE 60 MG TAB.SR.24H (FP) PO SCH (09:43)
[2019-09-04] MEDS: MULTIVITAMINS (DAILY MVI) TABLET (FP) PO SCH (09:44)
[2019-09-04] MEDS: CEFTRIAXONE 1 GM in DEXTROSE 5%-WATER - 50 ML IVPB SCH (09:49)
--- NOTE | 2019-09-04 10:22 | PN ---
Progress Note, Physician Chief Complaint: Hematuria BEKA UTI History of Present Illness: NAD CBI clear Cystoscopy planned for Thursday - Current Medication List Current Medications: Active Medications Acetaminophen (Tylenol -) 650 mg PO Q6H PRN PRN Reason: FEVER Last Admin: 09/03/19 22:07 Dose: 650 mg Al Hydroxide/Mg Hydroxide (Mylanta Oral Suspension -) 30 ml PO Q6H PRN PRN Reason: DYSPEPSIA Albuterol/Ipratropium (Duoneb -) [address] [facility] Last Admin: 09/04/19 08:14 Dose: 1 amp Amlodipine Besylate (Norvasc -) [address] [facility] Last Admin: 09/04/19 09:43 Dose: Not Given Apixaban (Eliquis -) [address] [facility] Aspirin (Ecotrin -) [address] [facility] Last Admin: 09/04/19 09:41 Dose: 81 mg Atorvastatin Calcium (Lipitor -) [address] [facility] Last Admin: 09/03/19 22:06 Dose: 40 mg Docusate Sodium (Colace -) [address] [facility] Last Admin: 09/03/19 22:05 Dose: 300 mg Ferrous Sulfate (Feosol -) [address] [facility] Last Admin: 09/04/19 09:41 Dose: 325 mg Gabapentin (Neurontin -) [address] [facility] Last Admin: 09/04/19 06:48 Dose: 300 mg Ceftriaxone Sodium 1 gm/ (Dextrose) 50 mls @ 100 mls/hr IVPB DAILY [facility]; Protocol Last Admin: 09/04/19 09:49 Dose: 100 mls/hr Isosorbide Mononitrate (Imdur -) [address] [facility] Last Admin: 09/04/19 09:43 Dose: 60 mg Lidocaine (Lidoderm Patch -) [address] [facility] Last Admin: 09/03/19 10:02 Dose: 1 patch Melatonin (Melatonin) [address] [facility] Last Admin: 09/03/19 22:45 Dose: 3 mg Metoprolol Tartrate (Lopressor -) [address] [facility] Last Admin: 09/04/19 09:40 Dose: Not Given Miscellaneous (Lidoderm Patch Removal) 1 each MC DAILY@2200 [facility] Last Admin: 09/03/19 22:45 Dose: 1 each Multivitamins/Minerals/Vitamin C (Tab-A-Vit -) [address] [facility] Last Admin: 09/04/19 09:44 Dose: 1 tab Polyethylene Glycol (Miralax (For Daily Use) -) [address] [facility] Last Admin: 09/03/19 10:05 Dose: 17 gm Potassium Chloride (K-Dur -) [address] [facility] Last Admin: 09/04/19 09:40 Dose: 40 meq Sitagliptin Phosphate (Januvia -) 25 mg PO DAILY@0700 [facility] Last Admin: 09/04/19 06:48 Dose: 25 mg Tamsulosin HCl (Flomax -) 0.4 mg PO DAILY@0830 [facility] Last Admin: 09/04/19 09:39 Dose: 0.4 mg - Objective Vital Signs: Vital Signs Temperature 98.8 F 09/04/19 06:00 Pulse Rate 77 09/04/19 06:00 Respiratory Rate 18 09/04/19 06:00 Blood Pressure 128/59 L 09/04/19 06:00 O2 Sat by Pulse Oximetry (%) 99 09/04/19 08:11 Constitutional: Yes: Well Nourished, No Distress, Calm Cardiovascular: Yes: Regular Rate and Rhythm Respiratory: Yes: Regular, On Nasal O2, Rales (BLL), SOB on Exertion Gastrointestinal: Yes: Normal Bowel Sounds, Soft Genitourinary: Yes: Iqbal Present Musculoskeletal: Yes: WNL Extremities: Yes: WNL Edema: No Peripheral Pulses WNL: Yes Neurological: Yes: Alert, Oriented Psychiatric: Yes: Alert, Oriented Labs: CBC, BMP 09/04/19 06:45 09/04/19 06:45 INR, PTT INR 1.53 (0.83-1.09) H 08/31/19 12:31 Problem List - Problems (1) BEKA (acute kidney injury) Assessment/Plan: -Cr improved -Nephrology on board -Monitor trend -likely 2/2 to UTI Problems reviewed: Yes Code(s): N17.9 - ACUTE KIDNEY FAILURE, UNSPECIFIED (2) Gross hematuria Assessment/Plan: -resolved -H/H stable -CBI clear -Seen by Urology -Cystoscopy on Thursday -Pt is medically stable for cystoscopy with acceptable OR risks Problems reviewed: Yes Code(s): R31.0 - GROSS HEMATURIA (3) UTI (urinary tract infection) Assessment/Plan: -ID on board -IV abx -UC: Microbiology 08/31/19 20:00 Blood - Peripheral Venous Blood Culture - Preliminary NO GROWTH OBTAINED AFTER 48 HOURS, INCUBATION TO CONTINUE FOR 3 DAYS. 08/31/19 20:00 Blood - Peripheral Venous Blood Culture - Preliminary NO GROWTH OBTAINED AFTER 48 HOURS, INCUBATION TO CONTINUE FOR 3 DAYS. 08/31/19 12:39 Urine - Urine Iqbal Urine Culture - Final Proteus Mirabilis -afebrile -Pyridium 200 mg po tid prn for dysuria Problems reviewed: Yes Code(s): N39.0 - URINARY TRACT INFECTION, SITE NOT SPECIFIED (4) CHF (congestive heart failure) Assessment/Plan: -Seen by cardiology -entresto discontinue -CXR shows congestive changes and possible Left infiltrate -Furosemide 40 mg IVP once Problems reviewed: Yes Code(s): I50.9 - HEART FAILURE, UNSPECIFIED Qualifiers: Heart failure type: unspecified Heart failure chronicity: chronic Qualified Code(s): I50.9 - Heart failure, unspecified (5) Paroxysmal A-fib Assessment/Plan: -Eliquis on hold -resume once hemodynamically stable Problems reviewed: Yes Code(s): I48.0 - PAROXYSMAL ATRIAL FIBRILLATION (6) Anemia Assessment/Plan: -H/H is stable -Already on ferrous sulfate BID -monitor trend Problems reviewed: Yes Code(s): D64.9 - ANEMIA, UNSPECIFIED Assessment/Plan see problem list
[2019-09-04] MEDS ORDERED: FUROSEMIDE 40 MG/4 ML INJECTABLE VIAL IVPUSH ONE (10:25)
[2019-09-04] MEDS ORDERED: MORPHINE SULFATE 2 MG/ML VIAL IVPUSH PRN (10:26)
[2019-09-04] MEDS ORDERED: SENNOSIDES 8.6MG TABLET (FP) PO PRN (10:32)
[2019-09-04] MEDS: PHENAZOPYRIDINE HCL 100 MG TABLET (FP) PO PRN (11:28)
[2019-09-04] MEDS: POLYETHYLENE GLYCOL 3350 119 GM BTL PO SCH (11:33)
[2019-09-04] MEDS: LIDOCAINE 5% TOPICAL PATCH TP SCH (11:34)
--- NOTE | 2019-09-04 11:56 | PN ---
Progress Note, Physician History of Present Illness: The patient is a 78 year old male with history of diabetes, CHF, atrial fibrillation anemia who presents to the emergency department for evaluation of dysuria, hematuria, and urinary Retention since last night. Patient denies fever /chills/nausea/vomiting/melena.He comes from [facility] where a thomas was placed this morning. - Current Medication List Current Medications: Active Medications Acetaminophen (Tylenol -) 650 mg PO Q6H PRN PRN Reason: FEVER Last Admin: 09/03/19 22:07 Dose: 650 mg Al Hydroxide/Mg Hydroxide (Mylanta Oral Suspension -) 30 ml PO Q6H PRN PRN Reason: DYSPEPSIA Albuterol/Ipratropium (Duoneb -) 1 amp NEB RQID [facility] Last Admin: 09/04/19 08:14 Dose: 1 amp Amlodipine Besylate (Norvasc -) 5 mg PO DAILY [facility] Last Admin: 09/04/19 09:43 Dose: Not Given Apixaban (Eliquis -) 5 mg PO BID [facility] Aspirin (Ecotrin -) 81 mg PO DAILY [facility] Last Admin: 09/04/19 09:41 Dose: 81 mg Atorvastatin Calcium (Lipitor -) 40 mg PO HS [facility] Last Admin: 09/03/19 22:06 Dose: 40 mg Docusate Sodium (Colace -) 300 mg PO HS [facility] Last Admin: 09/03/19 22:05 Dose: 300 mg Ferrous Sulfate (Feosol -) 325 mg PO BID [facility] Last Admin: 09/04/19 09:41 Dose: 325 mg Gabapentin (Neurontin -) 300 mg PO TID [facility] Last Admin: 09/04/19 06:48 Dose: 300 mg Ceftriaxone Sodium 1 gm/ (Dextrose) 50 mls @ 100 mls/hr IVPB DAILY [facility]; Protocol Last Admin: 09/04/19 09:49 Dose: 100 mls/hr Isosorbide Mononitrate (Imdur -) 60 mg PO DAILY [facility] Last Admin: 09/04/19 09:43 Dose: 60 mg Lidocaine (Lidoderm Patch -) 1 patch TP DAILY [facility] Last Admin: 09/04/19 11:34 Dose: 1 patch Melatonin (Melatonin) 3 mg PO HS [facility] Last Admin: 09/03/19 22:45 Dose: 3 mg Metoprolol Tartrate (Lopressor -) 25 mg PO BID [facility] Last Admin: 09/04/19 09:40 Dose: Not Given Miscellaneous (Lidoderm Patch Removal) 1 each MC DAILY@2200 [facility] Last Admin: 09/03/19 22:45 Dose: 1 each Morphine Sulfate (Morphine Sulfate) 1 mg IVPUSH Q4H PRN PRN Reason: PAIN LEVEL 7 - 10 Last Admin: 09/04/19 11:31 Dose: 1 mg Multivitamins/Minerals/Vitamin C (Tab-A-Vit -) 1 tab PO DAILY [facility] Last Admin: 09/04/19 09:44 Dose: 1 tab Phenazopyridine HCl (Pyridium -) 200 mg PO TID PRN PRN Reason: dysuria Last Admin: 09/04/19 11:28 Dose: 200 mg Polyethylene Glycol (Miralax (For Daily Use) -) 17 gm PO DAILY [facility] Last Admin: 09/04/19 11:33 Dose: 17 gm Potassium Chloride (K-Dur -) 40 meq PO DAILY [facility] Last Admin: 09/04/19 09:40 Dose: 40 meq Senna (Senna -) 2 tab PO HS PRN PRN Reason: CONSTIPATION Last Admin: 09/04/19 11:29 Dose: 2 tab Sitagliptin Phosphate (Januvia -) 25 mg PO DAILY@0700 [facility] Last Admin: 09/04/19 06:48 Dose: 25 mg Tamsulosin HCl (Flomax -) 0.4 mg PO DAILY@0830 [facility] Last Admin: 09/04/19 09:39 Dose: 0.4 mg - Objective Vital Signs: Vital Signs Temperature 98.8 F 09/04/19 06:00 Pulse Rate 77 09/04/19 06:00 Respiratory Rate 18 09/04/19 06:00 Blood Pressure 128/59 L 09/04/19 06:00 O2 Sat by Pulse Oximetry (%) 99 09/04/19 08:11 Eyes: Yes: WNL, Conjunctiva Clear, EOM Intact HENT: Yes: WNL, Atraumatic, Normocephalic Neck: Yes: WNL, Supple, Trachea Midline Cardiovascular: Yes: WNL, Regular Rate and Rhythm Respiratory: Yes: WNL, Regular, CTA Bilaterally Gastrointestinal: Yes: WNL, Normal Bowel Sounds Genitourinary: Yes: WNL Musculoskeletal: Yes: WNL Extremities: Yes: WNL Edema: No Integumentary: Yes: WNL Neurological: Yes: WNL, Alert, Oriented ...Motor Strength: WNL Psychiatric: Yes: WNL Labs: CBC, BMP 09/04/19 06:45 09/04/19 06:45 INR, PTT INR 1.53 (0.83-1.09) H 08/31/19 12:31 Problem List - Problems (1) BEKA (acute kidney injury) Code(s): N17.9 - ACUTE KIDNEY FAILURE, UNSPECIFIED (2) Acute urinary retention Code(s): R33.8 - OTHER RETENTION OF URINE (3) Gross hematuria Code(s): R31.0 - GROSS HEMATURIA (4) Leukocytosis Code(s): D72.829 - ELEVATED WHITE BLOOD CELL COUNT, UNSPECIFIED (5) Abdominal bloating Code(s): R14.0 - ABDOMINAL DISTENSION (GASEOUS) (6) Abdominal discomfort Code(s): R10.9 - UNSPECIFIED ABDOMINAL PAIN (7) Abnormal liver enzymes Code(s): R74.8 - ABNORMAL LEVELS OF OTHER SERUM ENZYMES (8) Acute respiratory failure with hypoxia and hypercapnia Code(s): J96.01 - ACUTE RESPIRATORY FAILURE WITH HYPOXIA; J96.02 - ACUTE RESPIRATORY FAILURE WITH HYPERCAPNIA (9) Anemia Code(s): D64.9 - ANEMIA, UNSPECIFIED (10) Atrial fibrillation Code(s): I48.91 - UNSPECIFIED ATRIAL FIBRILLATION (11) BPH (benign prostatic hyperplasia) Code(s): N40.0 - BENIGN PROSTATIC HYPERPLASIA WITHOUT LOWER URINRY TRACT SYMP (12) CHF (congestive heart failure) Code(s): I50.9 - HEART FAILURE, UNSPECIFIED Qualifiers: Heart failure type: unspecified Heart failure chronicity: chronic Qualified Code(s): I50.9 - Heart failure, unspecified (13) Chronic combined systolic and diastolic CHF, NYHA class 4 Code(s): I50.42 - CHRONIC COMBINED SYSTOLIC AND DIASTOLIC HRT FAIL (14) Chronic hypoxemic respiratory failure Code(s): J96.11 - CHRONIC RESPIRATORY FAILURE WITH HYPOXIA (15) Depression Code(s): F32.9 - MAJOR DEPRESSIVE DISORDER, SINGLE EPISODE, UNSPECIFIED (16) Diabetes Code(s): E11.9 - TYPE 2 DIABETES MELLITUS WITHOUT COMPLICATIONS Qualifiers: Diabetes mellitus type: other specified (including TAN) Diabetes mellitus group home insulin use: unspecified extermination inspector insulin use status Diabetes mellitus complication status: with other specified complication Qualified Code (s): E13.69 - Other specified diabetes mellitus with other specified complication (17) Dyspnea Code(s): R06.00 - DYSPNEA, UNSPECIFIED Qualifiers: Dyspnea type: unspecified Qualified Code(s): R06.00 - Dyspnea, unspecified (18) Early satiety Code(s): R68.81 - EARLY SATIETY (19) Elevated troponin Code(s): R74.8 - ABNORMAL LEVELS OF OTHER SERUM ENZYMES (20) Extremity pain Code(s): M79.609 - PAIN IN UNSPECIFIED LIMB (21) Fall Code(s): W19.XXXA - UNSPECIFIED FALL, INITIAL ENCOUNTER (22) Gallstones Code(s): K80.20 - CALCULUS OF GALLBLADDER W/O CHOLECYSTITIS W/O OBSTRUCTION (23) HLD (hyperlipidemia) Code(s): E78.5 - HYPERLIPIDEMIA, UNSPECIFIED (24) Hypertension Code(s): I10 - ESSENTIAL (PRIMARY) HYPERTENSION Qualifiers: Hypertension type: unspecified Qualified Code(s): I10 - Essential (primary ) hypertension (25) Hypomagnesemia Code(s): E83.42 - HYPOMAGNESEMIA (26) Increased oxygen demand Code(s): R06.89 - OTHER ABNORMALITIES OF BREATHING (27) Morbid obesity Code(s): E66.01 - MORBID (SEVERE) OBESITY DUE TO EXCESS CALORIES (28) PSVT (paroxysmal supraventricular tachycardia) Code(s): I47.1 - SUPRAVENTRICULAR TACHYCARDIA (29) Paroxysmal A-fib Code(s): I48.0 - PAROXYSMAL ATRIAL FIBRILLATION (30) Pneumonia Code(s): J18.9 - PNEUMONIA, UNSPECIFIED ORGANISM (31) Prophylactic measure Code(s): Z29.9 - ENCOUNTER FOR PROPHYLACTIC MEASURES, UNSPECIFIED (32) Pulmonary HTN Code(s): I27.2 - OTHER SECONDARY PULMONARY HYPERTENSION * DO NOT USE * (33) Splenic artery aneurysm Code(s): I72.8 - ANEURYSM OF OTHER SPECIFIED ARTERIES (34) Symptomatic anemia Code(s): D64.9 - ANEMIA, UNSPECIFIED (35) Systolic CHF Code(s): I50.20 - UNSPECIFIED SYSTOLIC (CONGESTIVE) HEART FAILURE Assessment/Plan 78 y/o male with past medical history of DM, CHF, Afib, Anemia. Patient presented to ER from [facility] for hematuria. Currently patient in NSR Plan; AGREE WITH HOLDING ELIQUIS. D/C ENTRESTO D/c Digoxin repeat ECHO cont Lasix and BB cleared from cardiac point of view for cysto/TURP
--- NOTE | 2019-09-04 16:06 | PN ---
Progress Note, Physician History of Present Illness: Pt seen and examined at bedside. He is awake and alert. He denies shortness of breath. - Current Medication List Current Medications: Active Medications Acetaminophen (Tylenol -) 650 mg PO Q6H PRN PRN Reason: FEVER Last Admin: 09/03/19 22:07 Dose: 650 mg Al Hydroxide/Mg Hydroxide (Mylanta Oral Suspension -) 30 ml PO Q6H PRN PRN Reason: DYSPEPSIA Albuterol/Ipratropium (Duoneb -) 1 amp NEB RQID [facility] Last Admin: 09/04/19 12:25 Dose: 1 amp Amlodipine Besylate (Norvasc -) 5 mg PO DAILY [facility] Last Admin: 09/04/19 09:43 Dose: Not Given Apixaban (Eliquis -) 5 mg PO BID [facility] Aspirin (Ecotrin -) 81 mg PO DAILY [facility] Last Admin: 09/04/19 09:41 Dose: 81 mg Atorvastatin Calcium (Lipitor -) 40 mg PO HS [facility] Last Admin: 09/03/19 22:06 Dose: 40 mg Docusate Sodium (Colace -) 300 mg PO HS [facility] Last Admin: 09/03/19 22:05 Dose: 300 mg Ferrous Sulfate (Feosol -) 325 mg PO BID [facility] Last Admin: 09/04/19 09:41 Dose: 325 mg Gabapentin (Neurontin -) 300 mg PO TID [facility] Last Admin: 09/04/19 15:14 Dose: 300 mg Ceftriaxone Sodium 1 gm/ (Dextrose) 50 mls @ 100 mls/hr IVPB DAILY [facility]; Protocol Last Admin: 09/04/19 09:49 Dose: 100 mls/hr Isosorbide Mononitrate (Imdur -) 60 mg PO DAILY [facility] Last Admin: 09/04/19 09:43 Dose: 60 mg Lidocaine (Lidoderm Patch -) 1 patch TP DAILY [facility] Last Admin: 09/04/19 11:34 Dose: 1 patch Melatonin (Melatonin) 3 mg PO [facility] Last Admin: 09/03/19 22:45 Dose: 3 mg Metoprolol Tartrate (Lopressor -) 25 mg PO BID [facility] Last Admin: 09/04/19 09:40 Dose: Not Given Miscellaneous (Lidoderm Patch Removal) 1 each MC DAILY@2200 [facility] Last Admin: 09/03/19 22:45 Dose: 1 each Morphine Sulfate (Morphine Sulfate) 2 mg IVPUSH Q4H PRN PRN Reason: PAIN LEVEL 7 - 10 Multivitamins/Minerals/Vitamin C (Tab-A-Vit -) 1 tab PO DAILY [facility] Last Admin: 09/04/19 09:44 Dose: 1 tab Phenazopyridine HCl (Pyridium -) 200 mg PO TID PRN PRN Reason: dysuria Last Admin: 09/04/19 11:28 Dose: 200 mg Polyethylene Glycol (Miralax (For Daily Use) -) 17 gm PO DAILY [facility] Last Admin: 09/04/19 11:33 Dose: 17 gm Potassium Chloride (K-Dur -) 40 meq PO DAILY [facility] Last Admin: 09/04/19 09:40 Dose: 40 meq Senna (Senna -) 2 tab PO HS PRN PRN Reason: CONSTIPATION Last Admin: 09/04/19 11:29 Dose: 2 tab Sitagliptin Phosphate (Januvia -) 25 mg PO DAILY@0700 [facility] Last Admin: 09/04/19 06:48 Dose: 25 mg Tamsulosin HCl (Flomax -) 0.4 mg PO DAILY@0830 [facility] Last Admin: 09/04/19 09:39 Dose: 0.4 mg - Objective Vital Signs: Vital Signs Temperature 99.4 F 09/04/19 14:00 Pulse Rate 91 H 09/04/19 14:00 Respiratory Rate 18 09/04/19 14:00 Blood Pressure 129/52 L 09/04/19 14:00 O2 Sat by Pulse Oximetry (%) 99 09/04/19 08:11 Constitutional: Yes: Calm Eyes: Yes: Conjunctiva Clear HENT: Yes: Atraumatic Neck: Yes: Supple Cardiovascular: Yes: S1, S2 Respiratory: Yes: CTA Bilaterally Gastrointestinal: Yes: Soft Genitourinary: Yes: Other (pt on cbi) Extremities: Yes: WNL Edema: No Neurological: Yes: Oriented Psychiatric: Yes: Oriented Labs: CBC, BMP 09/04/19 06:45 09/04/19 06:45 INR, PTT INR 1.53 (0.83-1.09) H 08/31/19 12:31 Problem List - Problems (1) BEKA (acute kidney injury) Code(s): N17.9 - ACUTE KIDNEY FAILURE, UNSPECIFIED (2) Gross hematuria Code(s): R31.0 - GROSS HEMATURIA Assessment/Plan Current Medications Generic Name Dose Route Start Last Admin Trade Name Freq PRN Reason Stop Dose Admin Acetaminophen 650 mg 08/31/19 15:53 09/03/19 22:07 Tylenol - PO 650 mg Q6H PRN Administration FEVER Al Hydroxide/Mg Hydroxide 30 ml 08/31/19 18:00 Mylanta Oral Suspension - PO Q6H PRN DYSPEPSIA Albuterol/Ipratropium 1 amp 08/31/19 20:00 09/04/19 12:25 Duoneb - NEB 1 amp RQID [facility] Administration Amlodipine Besylate 5 mg 09/01/19 10:00 09/04/19 09:43 Norvasc - PO Not Given DAILY [facility] Apixaban 5 mg 08/31/19 22:00 Eliquis - PO BID [facility] Aspirin 81 mg 09/01/19 10:00 09/04/19 09:41 Ecotrin - PO 81 mg DAILY [facility] Administration Atorvastatin Calcium 40 mg 08/31/19 22:00 09/03/19 22:06 Lipitor - PO 40 mg HS [facility] Administration Docusate Sodium 300 mg 08/31/19 22:00 09/03/19 22:05 Colace - PO 300 mg HS [facility] Administration Ferrous Sulfate 325 mg 09/03/19 22:00 09/04/19 09:41 Feosol - PO 325 mg BID [facility] Administration Gabapentin 300 mg 08/31/19 22:00 09/04/19 15:14 Neurontin - PO 300 mg TID [facility] Administration Ceftriaxone Sodium 1 gm/ 50 mls @ 100 mls/hr 08/31/19 18:30 09/04/19 09:49 Dextrose IVPB 100 mls/hr DAILY [facility] Administration Protocol Isosorbide Mononitrate 60 mg 09/01/19 10:00 09/04/19 09:43 Imdur - PO 60 mg DAILY [facility] Administration Lidocaine 1 patch 09/01/19 10:00 09/04/19 11:34 Lidoderm Patch - TP 1 patch DAILY [facility] Administration Melatonin 3 mg 08/31/19 22:00 09/03/19 22:45 Melatonin PO 3 mg HS [facility] Administration Metoprolol Tartrate 25 mg 08/31/19 22:00 09/04/19 09:40 Lopressor - PO Not Given BID [facility] Miscellaneous 1 each 09/01/19 22:00 09/03/19 22:45 Lidoderm Patch Removal MC 1 each DAILY@2200 [facility] Administration Morphine Sulfate 2 mg 09/04/19 13:30 Morphine Sulfate IVPUSH Q4H PRN PAIN LEVEL 7 - 10 Multivitamins/Minerals/Vitamin C 1 tab 09/01/19 10:00 09/04/19 09:44 Tab-A-Vit - PO 1 tab DAILY [facility] Administration Phenazopyridine HCl 200 mg 09/04/19 10:22 09/04/19 11:28 Pyridium - PO 200 mg TID PRN Administration dysuria Polyethylene Glycol 17 gm 09/01/19 10:00 09/04/19 11:33 Miralax (For Daily Use) - PO 17 gm DAILY [facility] Administration Potassium Chloride 40 meq 09/01/19 10:00 09/04/19 09:40 K-Dur - PO 40 meq DAILY [facility] Administration Senna 2 tab 09/04/19 10:32 09/04/19 11:29 Senna - PO 2 tab HS PRN Administration CONSTIPATION Sitagliptin Phosphate 25 mg 09/04/19 07:00 09/04/19 06:48 Januvia - PO 25 mg DAILY@0700 [facility] Administration Tamsulosin HCl 0.4 mg 09/01/19 08:30 09/04/19 09:39 Flomax - PO 0.4 mg DAILY@0830 [facility] Administration 1. BEKA 2. Hematuria 3. CHF with reduced LVEF 4. Afib on Eliquis 5. Anemia Plan - renal function is improving - hold potassium supplements until diuretics restarted - repeat ua once off of cbi - metolazone on hold for now - cont iron supps
[2019-09-04] MEDS: MORPHINE SULFATE 2 MG/ML VIAL IVPUSH PRN (16:40)
[2019-09-04] MEDS: ACETAMINOPHEN 325 MG TABLET (FP) PO PRN (21:31)
[2019-09-04] MEDS: LIDOCAINE PATCH REMOVAL MC SCH (21:37)
[2019-09-04] MEDS: ATORVASTATIN CA 40 MG TABLET (FP) PO SCH (21:37)
[2019-09-04] MEDS: DOCUSATE SODIUM 100 MG CAPSULE (FP) PO SCH (21:37)
[2019-09-04] MEDS: MELATONIN 1 MG TABLET PO SCH (22:04)
[2019-09-04] MEDS: MAG HYDROX/AL HYDROX/SIMETH 30 ML UNIT-DOSE CUP PO PRN (22:09)
[2019-09-05] MEDS: GABAPENTIN 300 MG CAPSULE (FP) PO SCH ×3 (06:38→22:46)
[2019-09-05] MEDS: ALBUTEROL SO4 2.5/IPRATROPIUM 0.5 INH SOL 3 ML VIAL.NEB. NEB SCH ×4 (08:00→19:40)
[2019-09-05] MEDS: TAMSULOSIN HCL 0.4 MG CAP PO SCH (09:00)
[2019-09-05] MEDS ORDERED: cefTRIAXone SODIUM 1 GM VIAL ONE (09:02)
[2019-09-05] MEDS ORDERED: DEXTROSE 5%-WATER - 50 ML IVPB ONE (09:02)
[2019-09-05] MEDS: CEFTRIAXONE 1 GM in DEXTROSE 5%-WATER - 50 ML IVPB SCH (11:21)
--- NOTE | 2019-09-05 11:42 | PN ---
Progress Note, Physician Chief Complaint: patient seen and examined NPO for possible bladder biopsy and fulgration today h/h stable on iv antiobiotics - Current Medication List Current Medications: Active Medications Acetaminophen (Tylenol -) 650 mg PO Q6H PRN PRN Reason: FEVER Last Admin: 09/04/19 21:31 Dose: 650 mg Al Hydroxide/Mg Hydroxide (Mylanta Oral Suspension -) 30 ml PO Q6H PRN PRN Reason: DYSPEPSIA Last Admin: 09/04/19 22:09 Dose: 30 ml Albuterol/Ipratropium (Duoneb -) 1 amp NEB RQID [facility] Last Admin: 09/05/19 08:00 Dose: 1 amp Amlodipine Besylate (Norvasc -) 5 mg PO DAILY [facility] Last Admin: 09/04/19 09:43 Dose: Not Given Apixaban (Eliquis -) 5 mg PO BID [facility] Aspirin (Ecotrin -) 81 mg PO DAILY [facility] Last Admin: 09/04/19 09:41 Dose: 81 mg Atorvastatin Calcium (Lipitor -) 40 mg PO HS [facility] Last Admin: 09/04/19 21:37 Dose: 40 mg Docusate Sodium (Colace -) 300 mg PO HS [facility] Last Admin: 09/04/19 21:37 Dose: 300 mg Ferrous Sulfate (Feosol -) 325 mg PO BID [facility] Last Admin: 09/04/19 21:37 Dose: 325 mg Gabapentin (Neurontin -) 300 mg PO TID [facility] Last Admin: 09/05/19 06:38 Dose: Not Given Ceftriaxone Sodium 1 gm/ (Dextrose) 50 mls @ 100 mls/hr IVPB DAILY [facility]; Protocol Last Admin: 09/05/19 11:21 Dose: 100 mls/hr Isosorbide Mononitrate (Imdur -) 60 mg PO DAILY [facility] Last Admin: 09/04/19 09:43 Dose: 60 mg Lidocaine (Lidoderm Patch -) 1 patch TP DAILY [facility] Last Admin: 09/04/19 11:34 Dose: 1 patch Melatonin (Melatonin) 3 mg PO HS [facility] Last Admin: 09/04/19 22:04 Dose: 3 mg Metoprolol Tartrate (Lopressor -) 25 mg PO BID [facility] Last Admin: 09/04/19 21:37 Dose: 25 mg Miscellaneous (Lidoderm Patch Removal) 1 each MC DAILY@2200 [facility] Last Admin: 09/04/19 21:37 Dose: 1 each Morphine Sulfate (Morphine Sulfate) 2 mg IVPUSH Q4H PRN PRN Reason: PAIN LEVEL 7 - 10 Last Admin: 09/04/19 16:40 Dose: 2 mg Multivitamins/Minerals/Vitamin C (Tab-A-Vit -) 1 tab PO DAILY [facility] Last Admin: 09/04/19 09:44 Dose: 1 tab Phenazopyridine HCl (Pyridium -) 200 mg PO TID PRN PRN Reason: dysuria Last Admin: 09/04/19 11:28 Dose: 200 mg Polyethylene Glycol (Miralax (For Daily Use) -) 17 gm PO DAILY [facility] Last Admin: 09/04/19 11:33 Dose: 17 gm Potassium Chloride (K-Dur -) 40 meq PO DAILY [facility] Last Admin: 09/04/19 09:40 Dose: 40 meq Senna (Senna -) 2 tab PO HS PRN PRN Reason: CONSTIPATION Last Admin: 09/04/19 11:29 Dose: 2 tab Sitagliptin Phosphate (Januvia -) 25 mg PO DAILY@0700 [facility] Last Admin: 09/05/19 06:38 Dose: Not Given Tamsulosin HCl (Flomax -) 0.4 mg PO DAILY@0830 [facility] Last Admin: 09/05/19 09:00 Dose: 0.4 mg - Objective Vital Signs: Vital Signs Temperature 99.3 F 09/05/19 06:00 Pulse Rate 70 09/05/19 06:00 Respiratory Rate 20 09/05/19 06:00 Blood Pressure 136/62 09/05/19 06:00 O2 Sat by Pulse Oximetry (%) 99 09/05/19 04:00 Constitutional: Yes: Calm Neck: Yes: Trachea Midline Cardiovascular: Yes: Regular Rate and Rhythm, S1, S2 Respiratory: Yes: CTA Bilaterally Gastrointestinal: Yes: Normal Bowel Sounds, Soft Labs: CBC, BMP 09/04/19 06:45 09/04/19 06:45 INR, PTT INR 1.53 (0.83-1.09) H 08/31/19 12:31 Problem List - Problems (1) Gross hematuria Assessment/Plan: NPO for bladder biopsy and fulgration today monitor h/h po iron Code(s): R31.0 - GROSS HEMATURIA (2) BEKA (acute kidney injury) Assessment/Plan: renal sono- normal kidney no hydronephrosis creatinine trending down Code(s): N17.9 - ACUTE KIDNEY FAILURE, UNSPECIFIED (3) UTI (urinary tract infection) Assessment/Plan: Microbiology 08/31/19 12:39 Urine - Urine Iqbal Urine Culture - Preliminary Proteus Species iv abx Code(s): N39.0 - URINARY TRACT INFECTION, SITE NOT SPECIFIED (4) Anemia Assessment/Plan: s/p venofer and prbc now on po iron Code(s): D64.9 - ANEMIA, UNSPECIFIED Qualifiers: Anemia type: iron deficiency (5) Diabetes Assessment/Plan: januvia bgm noted in range Code(s): E11.9 - TYPE 2 DIABETES MELLITUS WITHOUT COMPLICATIONS Qualifiers: Diabetes mellitus type: other specified (including TAN) Diabetes mellitus snf insulin use: unspecified long term care pharmacist insulin use status Diabetes mellitus complication status: with other specified complication Qualified Code (s): E13.69 - Other specified diabetes mellitus with other specified complication Assessment/Plan patient is depressed juaquin have psych see patient
--- NOTE | 2019-09-05 12:45 | PN ---
Progress Note (short form) - Note Progress Note: Renal follow up for BEKA Seen and examined at the bedside continues to have generalized discomfort denies any sob, cp, abd pain, fever or chills awaiting cystoscopy today Vital Signs Temperature 99.3 F 09/05/19 06:00 Pulse Rate 70 09/05/19 06:00 Respiratory Rate 20 09/05/19 06:00 Blood Pressure 136/62 09/05/19 06:00 O2 Sat by Pulse Oximetry (%) 99 09/05/19 04:00 Intake & Output 09/02/19 09/03/19 09/04/19 09/05/19 23:59 23:59 23:59 23:59 Intake Total 2950 2910 3970 2000 Output Total 4900 5300 2300 2600 Balance -1950 -2390 1670 -600 Weight 102.784 kg 102.421 kg 117.934 kg NAD awake and alert neck supple RRR CTA soft NT/ND no LE edema CBC, BMP 09/04/19 06:45 09/04/19 06:45 Current Medications Acetaminophen (Tylenol -) 650 mg PO Q6H PRN PRN Reason: FEVER Last Admin: 09/04/19 21:31 Dose: 650 mg Al Hydroxide/Mg Hydroxide (Mylanta Oral Suspension -) 30 ml PO Q6H PRN PRN Reason: DYSPEPSIA Last Admin: 09/04/19 22:09 Dose: 30 ml Albuterol/Ipratropium (Duoneb -) 1 amp NEB RQID [facility] Last Admin: 09/05/19 11:57 Dose: 1 amp Amlodipine Besylate (Norvasc -) 5 mg PO DAILY [facility] Last Admin: 09/04/19 09:43 Dose: Not Given Apixaban (Eliquis -) 5 mg PO BID [facility] Aspirin (Ecotrin -) 81 mg PO DAILY [facility] Last Admin: 09/04/19 09:41 Dose: 81 mg Atorvastatin Calcium (Lipitor -) 40 mg PO HS [facility] Last Admin: 09/04/19 21:37 Dose: 40 mg Docusate Sodium (Colace -) 300 mg PO HS [facility] Last Admin: 09/04/19 21:37 Dose: 300 mg Ferrous Sulfate (Feosol -) 325 mg PO BID [facility] Last Admin: 09/04/19 21:37 Dose: 325 mg Gabapentin (Neurontin -) 300 mg PO TID [facility] Last Admin: 09/05/19 06:38 Dose: Not Given Ceftriaxone Sodium 1 gm/ (Dextrose) 50 mls @ 100 mls/hr IVPB DAILY [facility]; Protocol Last Admin: 09/05/19 11:21 Dose: 100 mls/hr Isosorbide Mononitrate (Imdur -) 60 mg PO DAILY [facility] Last Admin: 09/04/19 09:43 Dose: 60 mg Lidocaine (Lidoderm Patch -) 1 patch TP DAILY [facility] Last Admin: 09/04/19 11:34 Dose: 1 patch Melatonin (Melatonin) 3 mg PO HS [facility] Last Admin: 09/04/19 22:04 Dose: 3 mg Metoprolol Tartrate (Lopressor -) 25 mg PO BID [facility] Last Admin: 09/04/19 21:37 Dose: 25 mg Miscellaneous (Lidoderm Patch Removal) 1 each MC DAILY@2200 [facility] Last Admin: 09/04/19 21:37 Dose: 1 each Morphine Sulfate (Morphine Sulfate) 2 mg IVPUSH Q4H PRN PRN Reason: PAIN LEVEL 7 - 10 Last Admin: 09/04/19 16:40 Dose: 2 mg Multivitamins/Minerals/Vitamin C (Tab-A-Vit -) 1 tab PO DAILY [facility] Last Admin: 09/04/19 09:44 Dose: 1 tab Phenazopyridine HCl (Pyridium -) 200 mg PO TID PRN PRN Reason: dysuria Last Admin: 09/04/19 11:28 Dose: 200 mg Polyethylene Glycol (Miralax (For Daily Use) -) 17 gm PO DAILY [facility] Last Admin: 09/04/19 11:33 Dose: 17 gm Potassium Chloride (K-Dur -) 40 meq PO DAILY [facility] Last Admin: 09/04/19 09:40 Dose: 40 meq Senna (Senna -) 2 tab PO HS PRN PRN Reason: CONSTIPATION Last Admin: 09/04/19 11:29 Dose: 2 tab Sitagliptin Phosphate (Januvia -) 25 mg PO DAILY@0700 [facility] Last Admin: 09/05/19 06:38 Dose: Not Given Tamsulosin HCl (Flomax -) 0.4 mg PO DAILY@0830 [facility] Last Admin: 09/05/19 09:00 Dose: 0.4 mg 78 year old gentleman with history of CHF with reduced LVEF, Afib, Anemia and DM who presented from [place] with gross hematuria and found to have BEKA. 1. Acute kidney injury likely due to intravascular volume depletion (diuretics/ anemia) 2. Hematuria 3. CHF with reduced LVEF 4. Afib on Eliquis 5. 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
[2019-09-05] MEDS ORDERED: ONDANSETRON 4 MG/2 ML VIAL IVPUSH PRN (14:26)
[2019-09-05] MEDS ORDERED: PROPOFOL 20 ML ONE (14:29)
[2019-09-05] MEDS ORDERED: DEXAMETHASONE SOD PHOSPHATE 4 MG/1 ML VIAL ONE (14:30)
[2019-09-05] MEDS ORDERED: LIDOCAINE HCL/PF 2% SDV 5ML VIAL ONE (14:30)
[2019-09-05] MEDS ORDERED: ETOMIDATE 20 MG/10 ML AMPUL IVPUSH ONE (14:30)
[2019-09-05] MEDS ORDERED: ROCURONIUM BROMIDE 50 MG/5 ML SYRINGE ONE (14:32)
[2019-09-05] MEDS ORDERED: ceFAZolin SODIUM 1 GM VIAL IVPB ONE (14:45)
[2019-09-05] MEDS ORDERED: ceFAZolin SODIUM 1 GM VIAL ONE (14:57)
[2019-09-05] MEDS ORDERED: NEOSTIGMINE METHYLSULFATE 0.5 MG/1 ML - 10 ML MDV ONE (15:12)
[2019-09-05] MEDS ORDERED: GLYCOPYRROLATE 0.2 MG/1 ML VIAL ONE (15:12)
--- NOTE | 2019-09-05 15:36 | OP ---
Operative Note - Note: Operative Date: 09/05/19 Pre-Operative Diagnosis: bph, aur, gross hematuria, h/o ca. prostate Operation: cysto, clot evacuation,turp/tuvp Findings: Trilobar prostate hypertrophy/trabeculated bladder grade 3/bladder clots Post-Operative Diagnosis: Same as Pre-op Surgeon: Omar Friedman Anesthesia: General Specimens Removed: prostate chips Drains & Tubes with Location: [address] thomas w/ cbi Blood Volume Replaced (mls): 0 Fluid Volume Replaced (mls): 0 Operative Report Dictated: Yes
--- NOTE | 2019-09-05 15:59 | PN ---
Progress Note, Physician History of Present Illness: The patient is a 78 year old male with history of diabetes, CHF, atrial fibrillation anemia who presents to the emergency department for evaluation of dysuria, hematuria, and urinary Retention since last night. Patient denies fever /chills/nausea/vomiting/melena.He comes from [facility] where a thomas was placed this morning. - Current Medication List Current Medications: Active Medications Acetaminophen (Tylenol -) 650 mg PO Q6H PRN PRN Reason: PAIN SCALE 1-5 OR FEVER Acetaminophen (Tylenol -) 325 mg PO Q4H PRN PRN Reason: PAIN SCALE 6-10 Al Hydroxide/Mg Hydroxide (Mylanta Oral Suspension -) 30 ml PO Q6H PRN PRN Reason: DYSPEPSIA Last Admin: 09/04/19 22:09 Dose: 30 ml Albuterol/Ipratropium (Duoneb -) 1 amp NEB RQID [facility] Last Admin: 09/05/19 11:57 Dose: 1 amp Amlodipine Besylate (Norvasc -) 5 mg PO DAILY [facility] Last Admin: 09/04/19 09:43 Dose: Not Given Apixaban (Eliquis -) 5 mg PO BID [facility] Aspirin (Ecotrin -) 81 mg PO DAILY [facility] Last Admin: 09/04/19 09:41 Dose: 81 mg Atorvastatin Calcium (Lipitor -) 40 mg PO HS [facility] Last Admin: 09/04/19 21:37 Dose: 40 mg Docusate Sodium (Colace -) 300 mg PO HS [facility] Last Admin: 09/04/19 21:37 Dose: 300 mg Fentanyl (Sublimaze Injection -) 50 mcg IVPUSH [id number] PRN PRN Reason: PAIN-PACU ORDER X 4 DOSES ONLY Ferrous Sulfate (Feosol -) 325 mg PO BID [facility] Last Admin: 09/04/19 21:37 Dose: 325 mg Furosemide (Lasix -) 80 mg PO DAILY [facility] Gabapentin (Neurontin -) 300 mg PO TID [facility] Last Admin: 09/05/19 06:38 Dose: Not Given Ceftriaxone Sodium 1 gm/ (Dextrose) 50 mls @ 100 mls/hr IVPB DAILY [facility]; Protocol Last Admin: 09/05/19 11:21 Dose: 100 mls/hr Lactated Ringer's (Lactated Ringers Solution) 1,000 mls @ 75 mls/hr IV ASDIR [facility] Isosorbide Mononitrate (Imdur -) 60 mg PO DAILY [facility] Last Admin: 09/04/19 09:43 Dose: 60 mg Lidocaine (Lidoderm Patch -) 1 patch TP DAILY [facility] Last Admin: 09/04/19 11:34 Dose: 1 patch Melatonin (Melatonin) 3 mg PO HS [facility] Last Admin: 09/04/19 22:04 Dose: 3 mg Metoprolol Tartrate (Lopressor -) 25 mg PO BID [facility] Last Admin: 09/04/19 21:37 Dose: 25 mg Miscellaneous (Lidoderm Patch Removal) 1 each MC DAILY@2200 [facility] Last Admin: 09/04/19 21:37 Dose: 1 each Morphine Sulfate (Morphine Sulfate) 2 mg IVPUSH Q4H PRN PRN Reason: PAIN LEVEL 7 - 10 Last Admin: 09/04/19 16:40 Dose: 2 mg Multivitamins/Minerals/Vitamin C (Tab-A-Vit -) 1 tab PO DAILY [facility] Last Admin: 09/04/19 09:44 Dose: 1 tab Ondansetron HCl (Zofran Injection) 4 mg IVPUSH Q6H PRN PRN Reason: NAUSEA AND/OR VOMITING Oxycodone HCl (Roxicodone -) 5 mg PO Q4H PRN PRN Reason: PAIN SCALE 6-10 Phenazopyridine HCl (Pyridium -) 200 mg PO TID PRN PRN Reason: dysuria Last Admin: 09/04/19 11:28 Dose: 200 mg Polyethylene Glycol (Miralax (For Daily Use) -) 17 gm PO DAILY [facility] Last Admin: 09/04/19 11:33 Dose: 17 gm Potassium Chloride (K-Dur -) 40 meq PO DAILY [facility] Last Admin: 09/04/19 09:40 Dose: 40 meq Senna (Senna -) 2 tab PO HS PRN PRN Reason: CONSTIPATION Last Admin: 09/04/19 11:29 Dose: 2 tab Sitagliptin Phosphate (Januvia -) 25 mg PO DAILY@0700 [facility] Last Admin: 09/05/19 06:38 Dose: Not Given Tamsulosin HCl (Flomax -) 0.4 mg PO DAILY@0830 [facility] Last Admin: 09/05/19 09:00 Dose: 0.4 mg - Objective Vital Signs: Vital Signs Temperature 99.3 F 09/05/19 06:00 Pulse Rate 70 10/28/19 06:00 Respiratory Rate 20 09/05/19 06:00 Blood Pressure 136/62 09/05/19 06:00 O2 Sat by Pulse Oximetry (%) 99 09/05/19 04:00 Eyes: Yes: WNL, Conjunctiva Clear, EOM Intact HENT: Yes: WNL, Atraumatic, Normocephalic Neck: Yes: WNL, Supple, Trachea Midline Cardiovascular: Yes: WNL, Regular Rate and Rhythm Respiratory: Yes: WNL, Regular, CTA Bilaterally Gastrointestinal: Yes: WNL, Normal Bowel Sounds Genitourinary: Yes: WNL Musculoskeletal: Yes: WNL Extremities: Yes: WNL Edema: No Integumentary: Yes: WNL Neurological: Yes: WNL, Alert, Oriented ...Motor Strength: WNL Psychiatric: Yes: WNL Labs: CBC, BMP 09/04/19 06:45 09/04/19 06:45 INR, PTT INR 1.53 (0.83-1.09) H 08/31/19 12:31 Problem List - Problems (1) BEKA (acute kidney injury) Code(s): N17.9 - ACUTE KIDNEY FAILURE, UNSPECIFIED (2) Acute urinary retention Code(s): R33.8 - OTHER RETENTION OF URINE (3) Gross hematuria Code(s): R31.0 - GROSS HEMATURIA (4) Leukocytosis Code(s): D72.829 - ELEVATED WHITE BLOOD CELL COUNT, UNSPECIFIED (5) Abdominal bloating Code(s): R14.0 - ABDOMINAL DISTENSION (GASEOUS) (6) Abdominal discomfort Code(s): R10.9 - UNSPECIFIED ABDOMINAL PAIN (7) Abnormal liver enzymes Code(s): R74.8 - ABNORMAL LEVELS OF OTHER SERUM ENZYMES (8) Acute respiratory failure with hypoxia and hypercapnia Code(s): J96.01 - ACUTE RESPIRATORY FAILURE WITH HYPOXIA; J96.02 - ACUTE RESPIRATORY FAILURE WITH HYPERCAPNIA (9) Anemia Code(s): D64.9 - ANEMIA, UNSPECIFIED Qualifiers: Anemia type: iron deficiency (10) Atrial fibrillation Code(s): I48.91 - UNSPECIFIED ATRIAL FIBRILLATION (11) BPH (benign prostatic hyperplasia) Code(s): N40.0 - BENIGN PROSTATIC HYPERPLASIA WITHOUT LOWER URINRY TRACT SYMP (12) CHF (congestive heart failure) Code(s): I50.9 - HEART FAILURE, UNSPECIFIED Qualifiers: Heart failure type: unspecified Heart failure chronicity: chronic Qualified Code(s): I50.9 - Heart failure, unspecified (13) Chronic combined systolic and diastolic CHF, NYHA class 4 Code(s): I50.42 - CHRONIC COMBINED SYSTOLIC AND DIASTOLIC HRT FAIL (14) Chronic hypoxemic respiratory failure Code(s): J96.11 - CHRONIC RESPIRATORY FAILURE WITH HYPOXIA (15) Depression Code(s): F32.9 - MAJOR DEPRESSIVE DISORDER, SINGLE EPISODE, UNSPECIFIED (16) Diabetes Code(s): E11.9 - TYPE 2 DIABETES MELLITUS WITHOUT COMPLICATIONS Qualifiers: Diabetes mellitus type: other specified (including TAN) Diabetes mellitus custodial insulin use: unspecified custodial insulin use status Diabetes mellitus complication status: with other specified complication Qualified Code (s): E13.69 - Other specified diabetes mellitus with other specified complication (17) Dyspnea Code(s): R06.00 - DYSPNEA, UNSPECIFIED Qualifiers: Dyspnea type: unspecified Qualified Code(s): R06.00 - Dyspnea, unspecified (18) Early satiety Code(s): R68.81 - EARLY SATIETY (19) Elevated troponin Code(s): R74.8 - ABNORMAL LEVELS OF OTHER SERUM ENZYMES (20) Extremity pain Code(s): M79.609 - PAIN IN UNSPECIFIED LIMB (21) Fall Code(s): W19.XXXA - UNSPECIFIED FALL, INITIAL ENCOUNTER (22) Gallstones Code(s): K80.20 - CALCULUS OF GALLBLADDER W/O CHOLECYSTITIS W/O OBSTRUCTION (23) HLD (hyperlipidemia) Code(s): E78.5 - HYPERLIPIDEMIA, UNSPECIFIED (24) Hypertension Code(s): I10 - ESSENTIAL (PRIMARY) HYPERTENSION Qualifiers: Hypertension type: unspecified Qualified Code(s): I10 - Essential (primary ) hypertension (25) Hypomagnesemia Code(s): E83.42 - HYPOMAGNESEMIA (26) Increased oxygen demand Code(s): R06.89 - OTHER ABNORMALITIES OF BREATHING (27) Morbid obesity Code(s): E66.01 - MORBID (SEVERE) OBESITY DUE TO EXCESS CALORIES (28) PSVT (paroxysmal supraventricular tachycardia) Code(s): I47.1 - SUPRAVENTRICULAR TACHYCARDIA (29) Paroxysmal A-fib Code(s): I48.0 - PAROXYSMAL ATRIAL FIBRILLATION (30) Pneumonia Code(s): J18.9 - PNEUMONIA, UNSPECIFIED ORGANISM (31) Prophylactic measure Code(s): Z29.9 - ENCOUNTER FOR PROPHYLACTIC MEASURES, UNSPECIFIED (32) Pulmonary HTN Code(s): I27.2 - OTHER SECONDARY PULMONARY HYPERTENSION * DO NOT USE * (33) Splenic artery aneurysm Code(s): I72.8 - ANEURYSM OF OTHER SPECIFIED ARTERIES (34) Symptomatic anemia Code(s): D64.9 - ANEMIA, UNSPECIFIED (35) Systolic CHF Code(s): I50.20 - UNSPECIFIED SYSTOLIC (CONGESTIVE) HEART FAILURE Assessment/Plan 78 y/o male with past medical history of DM, CHF, Afib, Anemia. Patient presented to ER from [facility] for hematuria. Currently patient in NSR Plan; AGREE WITH HOLDING Volance. D/C ENTRESTO D/c Digoxin repeat ECHO cont Lasix and BB cleared from cardiac point of view for cysto/TURP
[2019-09-05] MEDS ORDERED: ONDANSETRON 4 MG/2 ML VIAL ONE (16:50)
[2019-09-05] MEDS: LACTATED RINGERS SOLUTION 1,000 ML IV SCH (17:00)
[2019-09-05] MEDS: LIDOCAINE 5% TOPICAL PATCH TP SCH (17:00)
[2019-09-05] MEDS: POTASSIUM CHLORIDE TABS 20 MEQ TABLET.ER (FP) PO SCH (17:28)
[2019-09-05] MEDS: ISOSORBIDE MONONITRATE 60 MG TAB.SR.24H (FP) PO SCH (17:29)
[2019-09-05] MEDS: MULTIVITAMINS (DAILY MVI) TABLET (FP) PO SCH (17:29)
[2019-09-05] MEDS: ASPIRIN COATED 81 MG TABLET.EC PO SCH (17:29)
[2019-09-05] MEDS: FERROUS SO4 325 MG TABLET (FP) PO SCH ×2 (17:29→22:45)
[2019-09-05] MEDS: METOPROLOL TARTRATE 25 MG TABLET (FP) PO SCH ×2 (17:30→22:43)
[2019-09-05] MEDS: amLODIPine BESYLATE 5 MG TABLET (FP) PO SCH (17:30)
[2019-09-05] MEDS: POLYETHYLENE GLYCOL 3350 119 GM BTL PO SCH (17:31)
--- NOTE | 2019-09-05 18:15 | CONS ---
DATE OF CONSULTATION: DATE OF DICTATION: 09/05/2019 Patient is a 78-year-old male with history of prostatism including frequency, urgency, nocturia, terminal dribbling. He developed acute urinary retention with gross hematuria on August 31, 2019, was sent over from the [facility], where a 3-way Iqbal catheter with continuous bladder irrigation was commenced. The patient's hemoglobin and hematocrit had dropped to 7.3/23.8. He did receive 2 units of packed red blood cells. His latest hemoglobin is 8 and hematocrit 2.5.3; platelets are 237. BUN is 47 and creatinine 1.5. Random glucose is 126. The patient's urine and blood cultures showed no growth. The patient's ultrasound of his kidneys revealed normal kidneys, no hydronephrosis or stones. The bladder was collapsed because of a Iqbal catheter. Presently, the patient will undergo a cystoscopy, possible bladder biopsy, possible TUR bladder tumor, possible prostate resection and vaporization. This was explained fully to patient, and he agrees. Seema [id number]
--- NOTE | 2019-09-05 18:22 | OP ---
DATE OF OPERATION: 09/05/2019 PREOPERATIVE DIAGNOSES: Acute urinary retention; gross, total, painless hematuria; history of prostate cancer; history of radiation seed implantation. POSTOPERATIVE DIAGNOSES: Acute urinary retention; gross, total, painless hematuria; history of prostate cancer; history of radiation seed implantation. OPERATIVE PROCEDURE: Cystourethroscopy, evacuation of clot, transurethral resection of the prostate, and transurethral vaporization of the prostate. ANESTHESIA: General. Under above-stated anesthesia, patient was prepped and draped in the usual sterile manner. He is placed in the dorsal lithotomy position. Cystoscopy revealed a normal anterior urethra. Prostatic urethra revealed trilobar hypertrophy with lateral lobe kissing. The bladder was entered. A large organized clot was found in the bladder. An Opp.io evacuator was used, and the clot was evacuated. No bladder lesions were seen. There was a grade 2-3 trabeculation of the bladder. No stones were seen. Ureteral orifices were within normal limits with efflux of clear urine. Dome and lateral painting were clear of lesions. A bipolar resectoscope was introduced, and resection of the prostate was commenced at the 6 o'clock position of the right lateral lobe. This was carried on up to the 12 o'clock position. Same thing was done to the left lateral lobe. Hemostasis was secured with electrocoagulation. Prostate chips were evacuated with an Opp.io evacuator. A bipolar Vaportrode button was introduced, and excess tissue was vaporized. Again, bleeders were cauterized. No active bleeding was noted. The bladder was emptied. The scope was removed. A 24-Nigerian, 3-way, 30-mL Iqbal catheter was introduced. The patient tolerated the procedure well. He returned to the recovery room in good condition. Seema [id number]
[2019-09-05] MEDS ORDERED: PT OWN MED DRAWER 7, Y5N ONE (18:58)
[2019-09-05] MEDS: PHENAZOPYRIDINE HCL 100 MG TABLET (FP) PO PRN (19:03)
[2019-09-05] MEDS: ACETAMINOPHEN 325 MG TABLET (FP) PO PRN (20:21)
[2019-09-05] MEDS: MELATONIN 1 MG TABLET PO SCH (22:44)
[2019-09-05] MEDS: ATORVASTATIN CA 40 MG TABLET (FP) PO SCH (22:44)
[2019-09-05] MEDS: DOCUSATE SODIUM 100 MG CAPSULE (FP) PO SCH (22:46)
[2019-09-05] MEDS: LIDOCAINE PATCH REMOVAL MC SCH (23:00)
[2019-09-06] MEDS: LACTATED RINGERS SOLUTION 1,000 ML IV SCH ×2 (06:32→14:30)
[2019-09-06] MEDS: oxyCODONE HCL 5 MG TABLET PO PRN (06:39)
[2019-09-06] MEDS: GABAPENTIN 300 MG CAPSULE (FP) PO SCH ×3 (06:39→23:09)
[2019-09-06] MEDS: ACETAMINOPHEN 325 MG TABLET (FP) PO PRN (06:41)
[2019-09-06] MEDS: ALBUTEROL SO4 2.5/IPRATROPIUM 0.5 INH SOL 3 ML VIAL.NEB. NEB SCH ×4 (08:14→19:40)
[2019-09-06 08:28] LABS: BASO % 0.3 % (0-2.0); EOS % 0.8 % (0-4.5); HEMATOCRIT 24.6 % (35.4-49); HEMOGLOBIN 7.6 GM/dL (11.7-16.9); LYMPH % 5.4 % (8-40); MCH 29.3 pg (25.7-33.7); MEAN CELL VOLUME 94.5 fl (80-96); MEAN PLT VOLUME 8.3 fl (7.5-11.1); MONO % 6.5 % (3.8-10.2); PLATELET COUNT 307 K/MM3 (134-434); RBC 2.61 M/mm3 (4.00-5.60); RDW 16.7 % (11.9-15.9); WHITE BLOOD COUNT 12.7 K/mm3 (4.0-10.0)
[2019-09-06] MEDS: TAMSULOSIN HCL 0.4 MG CAP PO SCH (08:47)
[2019-09-06 09:01] LABS: ALBUMIN 2.5 g/dl (3.4-5.0); BILIRUBIN,TOTAL 0.7 mg/dL (0.2-1); BLOOD UREA NITROGEN 31.5 mg/dL (7-18); CALCIUM 9.3 mg/dL (8.5-10.1); CREATININE 1.3 mg/dL (0.55-1.3); MAGNESIUM 2.2 mg/dL (1.8-2.4); POTASSIUM 4.7 mmol/L (3.5-5.1); TOT PROT 5.6 g/dl (6.4-8.2)
[2019-09-06] MEDS ORDERED: cefTRIAXone SODIUM 1 GM VIAL ONE (09:17)
[2019-09-06] MEDS ORDERED: DEXTROSE 5%-WATER - 50 ML IVPB ONE (09:17)
[2019-09-06] MEDS: ISOSORBIDE MONONITRATE 60 MG TAB.SR.24H (FP) PO SCH (09:18)
[2019-09-06] MEDS: amLODIPine BESYLATE 5 MG TABLET (FP) PO SCH (09:19)
[2019-09-06] MEDS: FERROUS SO4 325 MG TABLET (FP) PO SCH ×2 (09:19→23:07)
[2019-09-06] MEDS: FUROSEMIDE 40 MG TABLET (FP) PO SCH (09:19)
[2019-09-06] MEDS: METOPROLOL TARTRATE 25 MG TABLET (FP) PO SCH ×2 (09:19→23:08)
[2019-09-06] MEDS: CEFTRIAXONE 1 GM in DEXTROSE 5%-WATER - 50 ML IVPB SCH (09:19)
[2019-09-06] MEDS: MULTIVITAMINS (DAILY MVI) TABLET (FP) PO SCH (09:19)
[2019-09-06] MEDS: POLYETHYLENE GLYCOL 3350 119 GM BTL PO SCH (09:19)
[2019-09-06] MEDS: POTASSIUM CHLORIDE TABS 20 MEQ TABLET.ER (FP) PO SCH (09:20)
[2019-09-06] MEDS: LIDOCAINE 5% TOPICAL PATCH TP SCH (09:20)
[2019-09-06] MEDS: MORPHINE SULFATE 2 MG/ML VIAL IVPUSH PRN ×2 (09:40→13:47)
--- NOTE | 2019-09-06 11:13 | PN ---
Progress Note (short form) - Note Progress Note: Anesthesia Post Op Note Pt awake alert s/p GA for TURP Pt denies n/v, no puritis Iqbal in situ, awaiting PT for ambulation VSS no apparent anesthesia complications Negro Glover.
[2019-09-06 11:14] LABS: ANISOCYTOSIS 0; MACROCYTOSIS 0; PLATELET ESTIMATE NORMAL
--- NOTE | 2019-09-06 13:28 | PN ---
Progress Note, Physician Chief Complaint: Hematuria UTI BEKA History of Present Illness: Previous notes and events reviewed awake and alert NAD complain lower abdominal pain hematuria noted in FC s/p cystourethroscopy, TURP/TUVP - Current Medication List Current Medications: Active Medications Acetaminophen (Tylenol -) 650 mg PO Q6H PRN PRN Reason: PAIN SCALE 1-5 OR FEVER Last Admin: 09/05/19 20:21 Dose: 650 mg Acetaminophen (Tylenol -) 325 mg PO Q4H PRN PRN Reason: PAIN SCALE 6-10 Last Admin: 09/06/19 06:41 Dose: 325 mg Al Hydroxide/Mg Hydroxide (Mylanta Oral Suspension -) 30 ml PO Q6H PRN PRN Reason: DYSPEPSIA Last Admin: 09/04/19 22:09 Dose: 30 ml Albuterol/Ipratropium (Duoneb -) 1 amp NEB RQID [facility] Last Admin: 09/06/19 11:36 Dose: 1 amp Amlodipine Besylate (Norvasc -) 5 mg PO DAILY [facility] Last Admin: 09/06/19 09:19 Dose: 5 mg Apixaban (Eliquis -) 5 mg PO BID [facility] Aspirin (Ecotrin -) 81 mg PO DAILY [facility] Last Admin: 09/05/19 17:29 Dose: 81 mg Atorvastatin Calcium (Lipitor -) 40 mg PO HS [facility] Last Admin: 09/05/19 22:44 Dose: 40 mg Docusate Sodium (Colace -) 300 mg PO HS [facility] Last Admin: 09/05/19 22:46 Dose: 300 mg Fentanyl (Sublimaze Injection -) 50 mcg IVPUSH [id number] PRN PRN Reason: PAIN-PACU ORDER X 4 DOSES ONLY Last Admin: 09/05/19 16:00 Dose: 50 mcg Ferrous Sulfate (Feosol -) 325 mg PO BID [facility] Last Admin: 09/06/19 09:19 Dose: 325 mg Furosemide (Lasix -) 80 mg PO DAILY [facility] Last Admin: 09/06/19 09:19 Dose: 80 mg Gabapentin (Neurontin -) 300 mg PO TID [facility] Last Admin: 09/06/19 06:39 Dose: 300 mg Ceftriaxone Sodium 1 gm/ (Dextrose) 50 mls @ 100 mls/hr IVPB DAILY [facility]; Protocol Last Admin: 09/06/19 09:19 Dose: 100 mls/hr Lactated Ringer's (Lactated Ringers Solution) 1,000 mls @ 75 mls/hr IV ASDIR [facility] Last Admin: 09/06/19 06:32 Dose: 75 mls/hr Isosorbide Mononitrate (Imdur -) 60 mg PO DAILY [facility] Last Admin: 09/06/19 09:18 Dose: 60 mg Lidocaine (Lidoderm Patch -) 1 patch TP DAILY [facility] Last Admin: 09/06/19 09:20 Dose: 1 patch Melatonin (Melatonin) 3 mg PO HS [facility] Last Admin: 09/05/19 22:44 Dose: 3 mg Metoprolol Tartrate (Lopressor -) 25 mg PO BID [facility] Last Admin: 09/06/19 09:19 Dose: 25 mg Miscellaneous (Lidoderm Patch Removal) 1 each MC DAILY@2200 [facility] Last Admin: 09/05/19 23:00 Dose: 1 each Morphine Sulfate (Morphine Sulfate) 2 mg IVPUSH Q4H PRN PRN Reason: PAIN LEVEL 7 - 10 Last Admin: 09/06/19 09:40 Dose: 2 mg Multivitamins/Minerals/Vitamin C (Tab-A-Vit -) 1 tab PO DAILY [facility] Last Admin: 09/06/19 09:19 Dose: 1 tab Ondansetron HCl (Zofran Injection) 4 mg IVPUSH Q6H PRN PRN Reason: NAUSEA AND/OR VOMITING Last Admin: 09/05/19 16:45 Dose: 4 mg Oxycodone HCl (Roxicodone -) 5 mg PO Q4H PRN PRN Reason: PAIN SCALE 6-10 Last Admin: 09/06/19 06:39 Dose: 5 mg Phenazopyridine HCl (Pyridium -) 200 mg PO TID PRN PRN Reason: dysuria Last Admin: 09/05/19 19:03 Dose: 200 mg Polyethylene Glycol (Miralax (For Daily Use) -) 17 gm PO DAILY [facility] Last Admin: 09/06/19 09:19 Dose: 17 gm Potassium Chloride (K-Dur -) 40 meq PO DAILY [facility] Last Admin: 09/06/19 09:20 Dose: 40 meq Senna (Senna -) 2 tab PO HS PRN PRN Reason: CONSTIPATION Last Admin: 09/04/19 11:29 Dose: 2 tab Sitagliptin Phosphate (Januvia -) 25 mg PO DAILY@0700 [facility] Last Admin: 09/06/19 07:31 Dose: 25 mg Tamsulosin HCl (Flomax -) 0.4 mg PO DAILY@0830 [facility] Last Admin: 09/06/19 08:47 Dose: 0.4 mg - Objective Vital Signs: Vital Signs Temperature 98.7 F 09/06/19 09:02 Pulse Rate 83 09/06/19 09:02 Respiratory Rate 20 09/06/19 09:02 Blood Pressure 128/55 L 09/06/19 09:02 O2 Sat by Pulse Oximetry (%) 98 09/06/19 00:00 Constitutional: Yes: No Distress, Calm Eyes: Yes: Conjunctiva Clear HENT: Yes: Atraumatic Cardiovascular: Yes: Regular Rate and Rhythm Respiratory: Yes: Regular, CTA Bilaterally, On Nasal O2 Gastrointestinal: Yes: Normal Bowel Sounds, Soft, Tenderness (lower abdomen) Genitourinary: Yes: Iqbal Present, Hematuria Musculoskeletal: Yes: Muscle Weakness Extremities: Yes: WNL Edema: No Neurological: Yes: Alert, Oriented Psychiatric: Yes: Alert, Oriented Labs: CBC, BMP 09/06/19 07:45 09/06/19 07:45 INR, PTT INR 1.53 (0.83-1.09) H 08/31/19 12:31 Microbiology 08/31/19 20:00 Blood - Peripheral Venous Blood Culture - Final NO GROWTH AFTER 5 DAYS INCUBATION 08/31/19 20:00 Blood - Peripheral Venous Blood Culture - Final NO GROWTH AFTER 5 DAYS INCUBATION 08/31/19 12:39 Urine - Urine Iqbal Urine Culture - Final Proteus Mirabilis Problem List - Problems (1) Acute urinary retention Assessment/Plan: -Urology on board -FC -Tamsulosin Code(s): R33.8 - OTHER RETENTION OF URINE (2) Gross hematuria Assessment/Plan: -Urology on board -POD #1 Cystourethroscopy, TURP/TUVP -monitor Hg daily -Hg 7.6 Code(s): R31.0 - GROSS HEMATURIA (3) Abdominal discomfort Assessment/Plan: -Abdominal US reviewed Code(s): R10.9 - UNSPECIFIED ABDOMINAL PAIN (4) Anemia Assessment/Plan: -Hg 7.6 -monitor Hg daily -transfuse for Hg <7.0 -Ferrous Sulfate Code(s): D64.9 - ANEMIA, UNSPECIFIED Qualifiers: Anemia type: iron deficiency (5) Atrial fibrillation Assessment/Plan: -Digoxin, Metoprolol -Eliquis held due to hematuria Code(s): I48.91 - UNSPECIFIED ATRIAL FIBRILLATION (6) BPH (benign prostatic hyperplasia) Assessment/Plan: -Tamsulosin -Urology consult Code(s): N40.0 - BENIGN PROSTATIC HYPERPLASIA WITHOUT LOWER URINRY TRACT SYMP (7) CHF (congestive heart failure) Assessment/Plan: -Furosemide -daily weights -strict I&O -fluid restriction Code(s): I50.9 - HEART FAILURE, UNSPECIFIED Qualifiers: Heart failure type: unspecified Heart failure chronicity: chronic Qualified Code(s): I50.9 - Heart failure, unspecified (8) Diabetes Assessment/Plan: -[facility] -[facility] -HgA1c -Sitagliptan Code(s): E11.9 - TYPE 2 DIABETES MELLITUS WITHOUT COMPLICATIONS Qualifiers: Diabetes mellitus type: other specified (including TAN) Diabetes mellitus half-way insulin use: unspecified half-way insulin use status Diabetes mellitus complication status: with other specified complication Qualified Code (s): E13.69 - Other specified diabetes mellitus with other specified complication (9) HLD (hyperlipidemia) Assessment/Plan: -Atorvastatin Code(s): E78.5 - HYPERLIPIDEMIA, UNSPECIFIED (10) Hypertension Assessment/Plan: -Amlodipine, Imdur Code(s): I10 - ESSENTIAL (PRIMARY) HYPERTENSION Qualifiers: Hypertension type: unspecified Qualified Code(s): I10 - Essential (primary ) hypertension (11) BEKA (acute kidney injury) Assessment/Plan: -BUN/Cr 31.5/1.3 -monitor renal function Code(s): N17.9 - ACUTE KIDNEY FAILURE, UNSPECIFIED (12) Leukocytosis Assessment/Plan: -ID consult -WBC 12.7 -UA shows 3+ leuks, 3+ bilirubin, 3+ protein, 2+ ketones, 3+ blood -UC positive -afebrile -Ceftriaxone Code(s): D72.829 - ELEVATED WHITE BLOOD CELL COUNT, UNSPECIFIED (13) UTI (urinary tract infection) Assessment/Plan: -ID consult -WBC 12.7 -UA shows 3+ leuks, 3+ bilirubin, 3+ protein, 2+ ketones, 3+ blood -UC positive -afebrile -Ceftriaxone Code(s): N39.0 - URINARY TRACT INFECTION, SITE NOT SPECIFIED Assessment/Plan see problem list dvt ppx
[2019-09-06] MEDS: ASPIRIN COATED 81 MG TABLET.EC PO SCH ×2 (15:21→15:22)
[2019-09-06] MEDS: APIXABAN 5 MG TABLET PO SCH ×2 (15:21→23:07)
--- NOTE | 2019-09-06 15:23 | PN ---
Progress Note (short form) - Note Progress Note: Renal follow up for BEKA Seen and examined at the bedside awake and alert offers no acute complaints s/p cysto yesterday with irrigation of clots Vital Signs Temperature 98.7 F 09/06/19 09:02 Pulse Rate 78 09/06/19 13:41 Respiratory Rate 24 H 09/06/19 13:41 Blood Pressure 125/64 09/06/19 13:41 O2 Sat by Pulse Oximetry (%) 98 09/06/19 00:00 Intake & Output 09/03/19 09/04/19 09/05/19 09/06/19 23:59 23:59 23:59 23:59 Intake Total 2910 3970 2150 7250 Output Total 5300 2300 4450 8700 Balance -2390 1670 -2300 -1450 Weight 102.421 kg 117.934 kg 117.934 kg NAD awake and alert neck supple RRR CTA soft NT/ND no LE edema CBC, BMP 09/06/19 07:45 09/06/19 07:45 Current Medications Acetaminophen (Tylenol -) 650 mg PO Q6H PRN PRN Reason: PAIN SCALE 1-5 OR FEVER Last Admin: 09/05/19 20:21 Dose: 650 mg Acetaminophen (Tylenol -) 325 mg PO Q4H PRN PRN Reason: PAIN SCALE 6-10 Last Admin: 09/06/19 06:41 Dose: 325 mg Al Hydroxide/Mg Hydroxide (Mylanta Oral Suspension -) 30 ml PO Q6H PRN PRN Reason: DYSPEPSIA Last Admin: 09/04/19 22:09 Dose: 30 ml Albuterol/Ipratropium (Duoneb -) 1 amp NEB RQID [facility] Last Admin: 09/06/19 11:36 Dose: 1 amp Amlodipine Besylate (Norvasc -) 5 mg PO DAILY [facility] Last Admin: 09/06/19 09:19 Dose: 5 mg Apixaban (Eliquis -) 5 mg PO BID [facility] Aspirin (Ecotrin -) 81 mg PO DAILY [facility] Last Admin: 09/05/19 17:29 Dose: 81 mg Atorvastatin Calcium (Lipitor -) 40 mg PO HS [facility] Last Admin: 09/05/19 22:44 Dose: 40 mg Docusate Sodium (Colace -) 300 mg PO HS [facility] Last Admin: 09/05/19 22:46 Dose: 300 mg Fentanyl (Sublimaze Injection -) 50 mcg IVPUSH [id number] PRN PRN Reason: PAIN-PACU ORDER X 4 DOSES ONLY Last Admin: 09/05/19 16:00 Dose: 50 mcg Ferrous Sulfate (Feosol -) 325 mg PO BID [facility] Last Admin: 09/06/19 09:19 Dose: 325 mg Furosemide (Lasix -) 80 mg PO DAILY [facility] Last Admin: 09/06/19 09:19 Dose: 80 mg Gabapentin (Neurontin -) 300 mg PO TID [facility] Last Admin: 09/06/19 13:52 Dose: 300 mg Ceftriaxone Sodium 1 gm/ (Dextrose) 50 mls @ 100 mls/hr IVPB DAILY [facility]; Protocol Last Admin: 09/06/19 09:19 Dose: 100 mls/hr Lactated Ringer's (Lactated Ringers Solution) 1,000 mls @ 75 mls/hr IV ASDIR [facility] Last Admin: 09/06/19 06:32 Dose: 75 mls/hr Isosorbide Mononitrate (Imdur -) 60 mg PO DAILY [facility] Last Admin: 09/06/19 09:18 Dose: 60 mg Lidocaine (Lidoderm Patch -) 1 patch TP DAILY [facility] Last Admin: 09/06/19 09:20 Dose: 1 patch Melatonin (Melatonin) 3 mg PO HS [facility] Last Admin: 09/05/19 22:44 Dose: 3 mg Metoprolol Tartrate (Lopressor -) 25 mg PO BID [facility] Last Admin: 09/06/19 09:19 Dose: 25 mg Miscellaneous (Lidoderm Patch Removal) 1 each MC DAILY@2200 [facility] Last Admin: 09/05/19 23:00 Dose: 1 each Morphine Sulfate (Morphine Sulfate) 2 mg IVPUSH Q4H PRN PRN Reason: PAIN LEVEL 7 - 10 Last Admin: 09/06/19 13:47 Dose: 2 mg Multivitamins/Minerals/Vitamin C (Tab-A-Vit -) 1 tab PO DAILY [facility] Last Admin: 09/06/19 09:19 Dose: 1 tab Ondansetron HCl (Zofran Injection) 4 mg IVPUSH Q6H PRN PRN Reason: NAUSEA AND/OR VOMITING Last Admin: 09/05/19 16:45 Dose: 4 mg Oxycodone HCl (Roxicodone -) 5 mg PO Q4H PRN PRN Reason: PAIN SCALE 6-10 Last Admin: 09/06/19 06:39 Dose: 5 mg Phenazopyridine HCl (Pyridium -) 200 mg PO TID PRN PRN Reason: dysuria Last Admin: 09/05/19 19:03 Dose: 200 mg Polyethylene Glycol (Miralax (For Daily Use) -) 17 gm PO DAILY [facility] Last Admin: 09/06/19 09:19 Dose: 17 gm Potassium Chloride (K-Dur -) 40 meq PO DAILY [facility] Last Admin: 09/06/19 09:20 Dose: 40 meq Senna (Senna -) 2 tab PO HS PRN PRN Reason: CONSTIPATION Last Admin: 09/04/19 11:29 Dose: 2 tab Sitagliptin Phosphate (Januvia -) 25 mg PO DAILY@0700 [facility] Last Admin: 09/06/19 07:31 Dose: 25 mg Tamsulosin HCl (Flomax -) 0.4 mg PO DAILY@0830 [facility] Last Admin: 09/06/19 08:47 Dose: 0.4 mg 78 year old gentleman with history of CHF with reduced LVEF, Afib, Anemia and DM who presented from [place] with gross hematuria and found to have BEKA. 1. Acute kidney injury likely due to intravascular volume depletion (diuretics/ anemia) 2. Hematuria 3. CHF with reduced LVEF 4. Afib on Eliquis 5. Anemia Renal function is improved to baseline D/C IVF and trend renal function Continue Lasix PO Daily Renal/Bladder US w/o obstruction no acute need for [employer] no overt electrolyte or acid base disturbance noted Trend H/H, iron saturation is 11%, continue PO iron urology follow up for CBI management Thank you Saul Diaz DO
[2019-09-06] MEDS ORDERED: PT OWN MED DRAWER 7, Y5N ONE (20:46)
[2019-09-06] MEDS: DOCUSATE SODIUM 100 MG CAPSULE (FP) PO SCH (23:06)
[2019-09-06] MEDS: ATORVASTATIN CA 40 MG TABLET (FP) PO SCH (23:07)
[2019-09-06] MEDS: MELATONIN 1 MG TABLET PO SCH (23:09)
[2019-09-06] MEDS: LIDOCAINE PATCH REMOVAL MC SCH (23:10)
[2019-09-07] MEDS: LACTATED RINGERS SOLUTION 1,000 ML IV SCH ×3 (00:22→21:23)
[2019-09-07] MEDS: GABAPENTIN 300 MG CAPSULE (FP) PO SCH ×3 (05:32→21:33)
[2019-09-07] MEDS: ACETAMINOPHEN 325 MG TABLET (FP) PO PRN (05:32)
[2019-09-07] MEDS: ALBUTEROL SO4 2.5/IPRATROPIUM 0.5 INH SOL 3 ML VIAL.NEB. NEB SCH ×4 (08:32→20:51)
[2019-09-07 08:39] LABS: HEMOGLOBIN 7.2 GM/dL (11.7-16.9); MCH 30.3 pg (25.7-33.7); MCHC 32.6 g/dl (32.0-35.9); MEAN PLT VOLUME 7.9 fl (7.5-11.1); PLATELET COUNT 332 K/MM3 (134-434); RBC 2.36 M/mm3 (4.00-5.60); RDW 16.7 % (11.9-15.9); WHITE BLOOD COUNT 10.7 K/mm3 (4.0-10.0)
[2019-09-07] MEDS: TAMSULOSIN HCL 0.4 MG CAP PO SCH (08:53)
[2019-09-07 09:27] LABS: ALBUMIN 2.3 g/dl (3.4-5.0); BILIRUBIN,TOTAL 0.4 mg/dL (0.2-1); BLOOD UREA NITROGEN 26.7 mg/dL (7-18); CALCIUM 9.1 mg/dL (8.5-10.1); CREATININE 1.1 mg/dL (0.55-1.3); MAGNESIUM 1.8 mg/dL (1.8-2.4); PHOSPHOROUS 4.4 mg/dL (2.5-4.9); POTASSIUM 4.2 mmol/L (3.5-5.1); TOT PROT 5.3 g/dl (6.4-8.2)
[2019-09-07] MEDS ORDERED: cefTRIAXone SODIUM 1 GM VIAL ONE (10:11)
[2019-09-07] MEDS ORDERED: DEXTROSE 5%-WATER - 50 ML IVPB ONE (10:12)
[2019-09-07] MEDS: CEFTRIAXONE 1 GM in DEXTROSE 5%-WATER - 50 ML IVPB SCH (10:25)
[2019-09-07] MEDS: FUROSEMIDE 40 MG TABLET (FP) PO SCH (10:25)
[2019-09-07] MEDS: LIDOCAINE 5% TOPICAL PATCH TP SCH (10:25)
[2019-09-07] MEDS: MULTIVITAMINS (DAILY MVI) TABLET (FP) PO SCH (10:26)
[2019-09-07] MEDS: POTASSIUM CHLORIDE TABS 20 MEQ TABLET.ER (FP) PO SCH (10:26)
[2019-09-07] MEDS: METOPROLOL TARTRATE 25 MG TABLET (FP) PO SCH ×2 (10:26→21:33)
[2019-09-07] MEDS: FERROUS SO4 325 MG TABLET (FP) PO SCH ×2 (10:26→21:32)
[2019-09-07] MEDS: amLODIPine BESYLATE 5 MG TABLET (FP) PO SCH (10:26)
[2019-09-07] MEDS: MORPHINE SULFATE 2 MG/ML VIAL IVPUSH PRN (10:37)
--- NOTE | 2019-09-07 11:14 | PN ---
Progress Note, Physician History of Present Illness: The patient is a 78 year old male with history of diabetes, CHF, atrial fibrillation anemia who presents to the emergency department for evaluation of dysuria, hematuria, and urinary Retention since last night. Patient denies fever /chills/nausea/vomiting/melena.He comes from [facility] where a thomas was placed this morning. - Current Medication List Current Medications: Active Medications Acetaminophen (Tylenol -) 650 mg PO Q6H PRN PRN Reason: PAIN SCALE 1-5 OR FEVER Last Admin: 09/07/19 05:32 Dose: 650 mg Acetaminophen (Tylenol -) 325 mg PO Q4H PRN PRN Reason: PAIN SCALE 6-10 Last Admin: 09/06/19 06:41 Dose: 325 mg Al Hydroxide/Mg Hydroxide (Mylanta Oral Suspension -) 30 ml PO Q6H PRN PRN Reason: DYSPEPSIA Last Admin: 09/04/19 22:09 Dose: 30 ml Albuterol/Ipratropium (Duoneb -) 1 amp NEB RQID [facility] Last Admin: 09/07/19 08:32 Dose: 1 amp Amlodipine Besylate (Norvasc -) 5 mg PO DAILY [facility] Last Admin: 09/07/19 10:26 Dose: 5 mg Apixaban (Eliquis -) 5 mg PO BID [facility] Last Admin: 09/06/19 23:07 Dose: 5 mg Aspirin (Ecotrin -) 81 mg PO DAILY [facility] Last Admin: 09/06/19 15:22 Dose: 81 mg Atorvastatin Calcium (Lipitor -) 40 mg PO [facility] Last Admin: 09/06/19 23:07 Dose: 40 mg Docusate Sodium (Colace -) 300 mg PO [facility] Last Admin: 09/06/19 23:06 Dose: 300 mg Fentanyl (Sublimaze Injection -) 50 mcg IVPUSH [id number] PRN PRN Reason: PAIN-PACU ORDER X 4 DOSES ONLY Last Admin: 09/05/19 16:00 Dose: 50 mcg Ferrous Sulfate (Feosol -) 325 mg PO BID [facility] Last Admin: 09/07/19 10:26 Dose: 325 mg Furosemide (Lasix -) 80 mg PO DAILY [facility] Last Admin: 09/07/19 10:25 Dose: 80 mg Gabapentin (Neurontin -) 300 mg PO TID [facility] Last Admin: 09/07/19 05:32 Dose: 300 mg Ceftriaxone Sodium 1 gm/ (Dextrose) 50 mls @ 100 mls/hr IVPB DAILY [facility]; Protocol Last Admin: 09/07/19 10:25 Dose: 100 mls/hr Lactated Ringer's (Lactated Ringers Solution) 1,000 mls @ 75 mls/hr IV ASDIR [facility] Last Admin: 09/07/19 00:22 Dose: 75 mls/hr Lidocaine (Lidoderm Patch -) 1 patch TP DAILY [facility] Last Admin: 09/07/19 10:25 Dose: 1 patch Melatonin (Melatonin) 3 mg PO HS [facility] Last Admin: 09/06/19 23:09 Dose: 3 mg Metoprolol Tartrate (Lopressor -) 25 mg PO BID [facility] Last Admin: 09/07/19 10:26 Dose: 25 mg Miscellaneous (Lidoderm Patch Removal) 1 each MC DAILY@2200 [facility] Last Admin: 09/06/19 23:10 Dose: 1 each Morphine Sulfate (Morphine Sulfate) 2 mg IVPUSH Q4H PRN PRN Reason: PAIN LEVEL 7 - 10 Last Admin: 09/07/19 10:37 Dose: 2 mg Multivitamins/Minerals/Vitamin C (Tab-A-Vit -) 1 tab PO DAILY [facility] Last Admin: 09/07/19 10:26 Dose: 1 tab Ondansetron HCl (Zofran Injection) 4 mg IVPUSH Q6H PRN PRN Reason: NAUSEA AND/OR VOMITING Last Admin: 09/05/19 16:45 Dose: 4 mg Oxycodone HCl (Roxicodone -) 5 mg PO Q4H PRN PRN Reason: PAIN SCALE 6-10 Last Admin: 09/06/19 06:39 Dose: 5 mg Phenazopyridine HCl (Pyridium -) 200 mg PO TID PRN PRN Reason: dysuria Last Admin: 09/05/19 19:03 Dose: 200 mg Polyethylene Glycol (Miralax (For Daily Use) -) 17 gm PO DAILY [facility] Last Admin: 09/06/19 09:19 Dose: 17 gm Potassium Chloride (K-Dur -) 40 meq PO DAILY [facility] Last Admin: 09/07/19 10:26 Dose: 40 meq Senna (Senna -) 2 tab PO HS PRN PRN Reason: CONSTIPATION Last Admin: 09/04/19 11:29 Dose: 2 tab Sitagliptin Phosphate (Januvia -) 25 mg PO DAILY@0700 [facility] Last Admin: 09/07/19 06:57 Dose: 25 mg Tamsulosin HCl (Flomax -) 0.4 mg PO DAILY@0830 [facility] Last Admin: 09/07/19 08:53 Dose: 0.4 mg - Objective Vital Signs: Vital Signs Temperature 99.3 F 09/07/19 10:23 Pulse Rate 86 09/07/19 10:23 Respiratory Rate 20 09/07/19 10:23 Blood Pressure 119/68 09/07/19 10:23 O2 Sat by Pulse Oximetry (%) 95 09/07/19 08:31 Eyes: Yes: WNL, Conjunctiva Clear, EOM Intact HENT: Yes: WNL, Atraumatic, Normocephalic Neck: Yes: WNL, Supple, Trachea Midline Cardiovascular: Yes: WNL, Regular Rate and Rhythm Respiratory: Yes: WNL, Regular, CTA Bilaterally Gastrointestinal: Yes: WNL, Normal Bowel Sounds Genitourinary: Yes: WNL Musculoskeletal: Yes: WNL Extremities: Yes: WNL Edema: No Integumentary: Yes: WNL Neurological: Yes: WNL, Alert, Oriented ...Motor Strength: WNL Psychiatric: Yes: WNL Labs: CBC, BMP 09/07/19 08:00 09/07/19 08:00 INR, PTT INR 1.53 (0.83-1.09) H 08/31/19 12:31 Problem List - Problems (1) BEKA (acute kidney injury) Code(s): N17.9 - ACUTE KIDNEY FAILURE, UNSPECIFIED (2) Acute urinary retention Code(s): R33.8 - OTHER RETENTION OF URINE (3) Gross hematuria Code(s): R31.0 - GROSS HEMATURIA (4) Leukocytosis Code(s): D72.829 - ELEVATED WHITE BLOOD CELL COUNT, UNSPECIFIED (5) Abdominal bloating Code(s): R14.0 - ABDOMINAL DISTENSION (GASEOUS) (6) Abdominal discomfort Code(s): R10.9 - UNSPECIFIED ABDOMINAL PAIN (7) Abnormal liver enzymes Code(s): R74.8 - ABNORMAL LEVELS OF OTHER SERUM ENZYMES (8) Acute respiratory failure with hypoxia and hypercapnia Code(s): J96.01 - ACUTE RESPIRATORY FAILURE WITH HYPOXIA; J96.02 - ACUTE RESPIRATORY FAILURE WITH HYPERCAPNIA (9) Anemia Code(s): D64.9 - ANEMIA, UNSPECIFIED Qualifiers: Anemia type: iron deficiency (10) Atrial fibrillation Code(s): I48.91 - UNSPECIFIED ATRIAL FIBRILLATION (11) BPH (benign prostatic hyperplasia) Code(s): N40.0 - BENIGN PROSTATIC HYPERPLASIA WITHOUT LOWER URINRY TRACT SYMP (12) CHF (congestive heart failure) Code(s): I50.9 - HEART FAILURE, UNSPECIFIED Qualifiers: Heart failure type: unspecified Heart failure chronicity: chronic Qualified Code(s): I50.9 - Heart failure, unspecified (13) Chronic combined systolic and diastolic CHF, NYHA class 4 Code(s): I50.42 - CHRONIC COMBINED SYSTOLIC AND DIASTOLIC HRT FAIL (14) Chronic hypoxemic respiratory failure Code(s): J96.11 - CHRONIC RESPIRATORY FAILURE WITH HYPOXIA (15) Depression Code(s): F32.9 - MAJOR DEPRESSIVE DISORDER, SINGLE EPISODE, UNSPECIFIED (16) Diabetes Code(s): E11.9 - TYPE 2 DIABETES MELLITUS WITHOUT COMPLICATIONS Qualifiers: Diabetes mellitus type: other specified (including TAN) Diabetes mellitus intermediate accountant insulin use: unspecified jail insulin use status Diabetes mellitus complication status: with other specified complication Qualified Code (s): E13.69 - Other specified diabetes mellitus with other specified complication (17) Dyspnea Code(s): R06.00 - DYSPNEA, UNSPECIFIED Qualifiers: Dyspnea type: unspecified Qualified Code(s): R06.00 - Dyspnea, unspecified (18) Early satiety Code(s): R68.81 - EARLY SATIETY (19) Elevated troponin Code(s): R74.8 - ABNORMAL LEVELS OF OTHER SERUM ENZYMES (20) Extremity pain Code(s): M79.609 - PAIN IN UNSPECIFIED LIMB (21) Fall Code(s): W19.XXXA - UNSPECIFIED FALL, INITIAL ENCOUNTER (22) Gallstones Code(s): K80.20 - CALCULUS OF GALLBLADDER W/O CHOLECYSTITIS W/O OBSTRUCTION (23) HLD (hyperlipidemia) Code(s): E78.5 - HYPERLIPIDEMIA, UNSPECIFIED (24) Hypertension Code(s): I10 - ESSENTIAL (PRIMARY) HYPERTENSION Qualifiers: Hypertension type: unspecified Qualified Code(s): I10 - Essential (primary ) hypertension (25) Hypomagnesemia Code(s): E83.42 - HYPOMAGNESEMIA (26) Increased oxygen demand Code(s): R06.89 - OTHER ABNORMALITIES OF BREATHING (27) Morbid obesity Code(s): E66.01 - MORBID (SEVERE) OBESITY DUE TO EXCESS CALORIES (28) PSVT (paroxysmal supraventricular tachycardia) Code(s): I47.1 - SUPRAVENTRICULAR TACHYCARDIA (29) Paroxysmal A-fib Code(s): I48.0 - PAROXYSMAL ATRIAL FIBRILLATION (30) Pneumonia Code(s): J18.9 - PNEUMONIA, UNSPECIFIED ORGANISM (31) Prophylactic measure Code(s): Z29.9 - ENCOUNTER FOR PROPHYLACTIC MEASURES, UNSPECIFIED (32) Pulmonary HTN Code(s): I27.2 - OTHER SECONDARY PULMONARY HYPERTENSION * DO NOT USE * (33) Splenic artery aneurysm Code(s): I72.8 - ANEURYSM OF OTHER SPECIFIED ARTERIES (34) Symptomatic anemia Code(s): D64.9 - ANEMIA, UNSPECIFIED (35) Systolic CHF Code(s): I50.20 - UNSPECIFIED SYSTOLIC (CONGESTIVE) HEART FAILURE Assessment/Plan 78 y/o male with past medical history of DM, CHF, Afib, Anemia. Patient presented to ER from [facility] for hematuria. Currently patient in NSR Plan; AGREE WITH HOLDING ELIQUIS. D/C ENTRESTO D/c Digoxin repeat ECHO cont Lasix and BB cleared from cardiac point of view for cysto/TURP
[2019-09-07] MEDS: POLYETHYLENE GLYCOL 3350 119 GM BTL PO SCH (11:20)
--- NOTE | 2019-09-07 11:45 | PN ---
Progress Note, Physician Chief Complaint: Hematuria BEKA UTI History of Present Illness: NAD CBI color improving Still complaining of abd pain On morphine+ Pyridium+ tramadol - Current Medication List Current Medications: Active Medications Acetaminophen (Tylenol -) 650 mg PO Q6H PRN PRN Reason: PAIN SCALE 1-5 OR FEVER Last Admin: 09/07/19 05:32 Dose: 650 mg Acetaminophen (Tylenol -) 325 mg PO Q4H PRN PRN Reason: PAIN SCALE 6-10 Last Admin: 09/06/19 06:41 Dose: 325 mg Al Hydroxide/Mg Hydroxide (Mylanta Oral Suspension -) 30 ml PO Q6H PRN PRN Reason: DYSPEPSIA Last Admin: 09/04/19 22:09 Dose: 30 ml Albuterol/Ipratropium (Duoneb -) 1 amp NEB RQID [facility] Last Admin: 09/07/19 08:32 Dose: 1 amp Amlodipine Besylate (Norvasc -) 5 mg PO DAILY [facility] Last Admin: 09/07/19 10:26 Dose: 5 mg Apixaban (Eliquis -) 5 mg PO BID [facility] Last Admin: 09/06/19 23:07 Dose: 5 mg Aspirin (Ecotrin -) 81 mg PO DAILY [facility] Last Admin: 09/06/19 15:22 Dose: 81 mg Atorvastatin Calcium (Lipitor -) 40 mg PO HS [facility] Last Admin: 09/06/19 23:07 Dose: 40 mg Docusate Sodium (Colace -) 300 mg PO HS [facility] Last Admin: 09/06/19 23:06 Dose: 300 mg Fentanyl (Sublimaze Injection -) 50 mcg IVPUSH [id number] PRN PRN Reason: PAIN-PACU ORDER X 4 DOSES ONLY Last Admin: 09/05/19 16:00 Dose: 50 mcg Ferrous Sulfate (Feosol -) 325 mg PO BID [facility] Last Admin: 09/07/19 10:26 Dose: 325 mg Furosemide (Lasix -) 80 mg PO DAILY [facility] Last Admin: 09/07/19 10:25 Dose: 80 mg Gabapentin (Neurontin -) 300 mg PO TID [facility] Last Admin: 09/07/19 05:32 Dose: 300 mg Ceftriaxone Sodium 1 gm/ (Dextrose) 50 mls @ 100 mls/hr IVPB DAILY [facility]; Protocol Last Admin: 09/07/19 10:25 Dose: 100 mls/hr Lactated Ringer's (Lactated Ringers Solution) 1,000 mls @ 75 mls/hr IV ASDIR [facility] Last Admin: 09/07/19 00:22 Dose: 75 mls/hr Iron Sucrose 300 mg/ Sodium (Chloride) 250 mls @ 250 mls/hr IVPB ONCE ONE Stop: 09/07/19 12:43 Lidocaine (Lidoderm Patch -) 1 patch TP DAILY [facility] Last Admin: 09/07/19 10:25 Dose: 1 patch Melatonin (Melatonin) 3 mg PO HS [facility] Last Admin: 09/06/19 23:09 Dose: 3 mg Metoprolol Tartrate (Lopressor -) 25 mg PO BID [facility] Last Admin: 09/07/19 10:26 Dose: 25 mg Miscellaneous (Lidoderm Patch Removal) 1 each MC DAILY@2200 [facility] Last Admin: 09/06/19 23:10 Dose: 1 each Morphine Sulfate (Morphine Sulfate) 2 mg IVPUSH Q4H PRN PRN Reason: PAIN LEVEL 7 - 10 Last Admin: 09/07/19 10:37 Dose: 2 mg Multivitamins/Minerals/Vitamin C (Tab-A-Vit -) 1 tab PO DAILY [facility] Last Admin: 09/07/19 10:26 Dose: 1 tab Ondansetron HCl (Zofran Injection) 4 mg IVPUSH Q6H PRN PRN Reason: NAUSEA AND/OR VOMITING Last Admin: 09/05/19 16:45 Dose: 4 mg Oxycodone HCl (Roxicodone -) 5 mg PO Q4H PRN PRN Reason: PAIN SCALE 6-10 Last Admin: 09/06/19 06:39 Dose: 5 mg Phenazopyridine HCl (Pyridium -) 200 mg PO TID PRN PRN Reason: dysuria Last Admin: 09/05/19 19:03 Dose: 200 mg Polyethylene Glycol (Miralax (For Daily Use) -) 17 gm PO DAILY [facility] Last Admin: 09/07/19 11:20 Dose: 17 gm Potassium Chloride (K-Dur -) 40 meq PO DAILY [facility] Last Admin: 09/07/19 10:26 Dose: 40 meq Senna (Senna -) 2 tab PO HS PRN PRN Reason: CONSTIPATION Last Admin: 09/04/19 11:29 Dose: 2 tab Sitagliptin Phosphate (Januvia -) 25 mg PO DAILY@0700 [facility] Last Admin: 09/07/19 06:57 Dose: 25 mg Tamsulosin HCl (Flomax -) 0.4 mg PO DAILY@0830 [facility] Last Admin: 09/07/19 08:53 Dose: 0.4 mg - Objective Vital Signs: Vital Signs Temperature 99.3 F 09/07/19 10:23 Pulse Rate 86 09/07/19 10:23 Respiratory Rate 20 09/07/19 10:23 Blood Pressure 119/68 09/07/19 10:23 O2 Sat by Pulse Oximetry (%) 95 09/07/19 08:31 Constitutional: Yes: Well Nourished, No Distress, Calm Cardiovascular: Yes: Regular Rate and Rhythm Respiratory: Yes: Regular Gastrointestinal: Yes: Abdomen, Obese, Tenderness (diffuse) Genitourinary: Yes: Iqbal Present, Hematuria Musculoskeletal: Yes: Muscle Weakness Extremities: Yes: WNL Edema: No Peripheral Pulses WNL: Yes Neurological: Yes: Alert, Oriented Psychiatric: Yes: Alert, Oriented Labs: CBC, BMP 09/07/19 08:00 09/07/19 08:00 INR, PTT INR 1.53 (0.83-1.09) H 08/31/19 12:31 Problem List - Problems (1) BEKA (acute kidney injury) Assessment/Plan: -Cr improved -Nephrology on board -Monitor trend -likely 2/2 to UTI Problems reviewed: Yes Code(s): N17.9 - ACUTE KIDNEY FAILURE, UNSPECIFIED (2) Gross hematuria Assessment/Plan: -resolved -H/H stable -CBI clear -Seen by Urology -Cystoscopy on Thursday -Pt is medically stable for cystoscopy with acceptable OR risks Problems reviewed: Yes Code(s): R31.0 - GROSS HEMATURIA (3) UTI (urinary tract infection) Assessment/Plan: -ID on board -IV abx -UC: Microbiology 08/31/19 20:00 Blood - Peripheral Venous Blood Culture - Preliminary NO GROWTH OBTAINED AFTER 48 HOURS, INCUBATION TO CONTINUE FOR 3 DAYS. 08/31/19 20:00 Blood - Peripheral Venous Blood Culture - Preliminary NO GROWTH OBTAINED AFTER 48 HOURS, INCUBATION TO CONTINUE FOR 3 DAYS. 08/31/19 12:39 Urine - Urine Iqbal Urine Culture - Final Proteus Mirabilis -afebrile -Pyridium 200 mg po tid for dysuria -Morphine PRN -Tramadol PRN Problems reviewed: Yes Code(s): N39.0 - URINARY TRACT INFECTION, SITE NOT SPECIFIED (4) CHF (congestive heart failure) Assessment/Plan: -Seen by cardiology -entresto discontinued -CXR shows congestive changes and possible Left infiltrate -Furosemide 80 mg PO daily Problems reviewed: Yes Code(s): I50.9 - HEART FAILURE, UNSPECIFIED Qualifiers: Heart failure type: unspecified Heart failure chronicity: chronic Qualified Code(s): I50.9 - Heart failure, unspecified (5) Paroxysmal A-fib Assessment/Plan: -Eliquis resumed Problems reviewed: Yes Code(s): I48.0 - PAROXYSMAL ATRIAL FIBRILLATION (6) Anemia Assessment/Plan: -monitor H/H trend -Transfure for Hg<7.0 to avoid fluid overload -Venofer x 1 -Already on ferrous sulfate BID -monitor trend -hematology consult Code(s): D64.9 - ANEMIA, UNSPECIFIED Qualifiers: Anemia type: iron deficiency (7) Abdominal pain Assessment/Plan: -CT abd Problems reviewed: Yes Code(s): R10.9 - UNSPECIFIED ABDOMINAL PAIN Assessment/Plan see problem list PT
[2019-09-07] MEDS ORDERED: IRON SUCROSE INJECTION 300 MG in SODIUM CHLORIDE 235 ML IVPB ONE (12:15)
[2019-09-07] MEDS: ASPIRIN COATED 81 MG TABLET.EC PO SCH (12:23)
[2019-09-07] MEDS: APIXABAN 5 MG TABLET PO SCH ×2 (12:23→21:32)
--- NOTE | 2019-09-07 13:18 | PN ---
Progress Note (short form) - Note Progress Note: Renal follow up for BEKA Seen and examined at the bedside reports feeling of abdominal fullness no pain, nausea or vomiting CBI in place continues to have hematuria Vital Signs Temperature 99.3 F 09/07/19 10:23 Pulse Rate 86 09/07/19 10:23 Respiratory Rate 20 09/07/19 10:23 Blood Pressure 119/68 09/07/19 10:23 O2 Sat by Pulse Oximetry (%) 95 09/07/19 08:31 Intake & Output 09/04/19 09/05/19 09/06/19 09/07/19 23:59 23:59 23:59 23:59 Intake Total 3970 2150 50327 4320 Output Total 2300 4450 21692 5600 Balance 1670 -2300 -725 -1280 Weight 102.421 kg 117.934 kg 117.934 kg 99.79 kg NAD awake and alert neck supple RRR CTA soft NT/ND no LE edema CBC, BMP 09/07/19 08:00 09/07/19 08:00 Current Medications Acetaminophen (Tylenol -) 650 mg PO Q6H PRN PRN Reason: PAIN SCALE 1-5 OR FEVER Last Admin: 09/07/19 05:32 Dose: 650 mg Acetaminophen (Tylenol -) 325 mg PO Q4H PRN PRN Reason: PAIN SCALE 6-10 Last Admin: 09/06/19 06:41 Dose: 325 mg Al Hydroxide/Mg Hydroxide (Mylanta Oral Suspension -) 30 ml PO Q6H PRN PRN Reason: DYSPEPSIA Last Admin: 09/04/19 22:09 Dose: 30 ml Albuterol/Ipratropium (Duoneb -) 1 amp NEB RQID [facility] Last Admin: 09/07/19 11:49 Dose: 1 amp Amlodipine Besylate (Norvasc -) 5 mg PO DAILY [facility] Last Admin: 09/07/19 10:26 Dose: 5 mg Apixaban (Eliquis -) 5 mg PO BID [facility] Last Admin: 09/07/19 12:23 Dose: 5 mg Aspirin (Ecotrin -) 81 mg PO DAILY [facility] Last Admin: 09/07/19 12:23 Dose: 81 mg Atorvastatin Calcium (Lipitor -) 40 mg PO HS [facility] Last Admin: 09/06/19 23:07 Dose: 40 mg Docusate Sodium (Colace -) 300 mg PO HS [facility] Last Admin: 09/06/19 23:06 Dose: 300 mg Fentanyl (Sublimaze Injection -) 50 mcg IVPUSH [id number] PRN PRN Reason: PAIN-PACU ORDER X 4 DOSES ONLY Last Admin: 09/05/19 16:00 Dose: 50 mcg Ferrous Sulfate (Feosol -) 325 mg PO BID [facility] Last Admin: 09/07/19 10:26 Dose: 325 mg Furosemide (Lasix -) 80 mg PO DAILY [facility] Last Admin: 09/07/19 10:25 Dose: 80 mg Gabapentin (Neurontin -) 300 mg PO TID [facility] Last Admin: 09/07/19 05:32 Dose: 300 mg Ceftriaxone Sodium 1 gm/ (Dextrose) 50 mls @ 100 mls/hr IVPB DAILY [facility]; Protocol Last Admin: 09/07/19 10:25 Dose: 100 mls/hr Lactated Ringer's (Lactated Ringers Solution) 1,000 mls @ 75 mls/hr IV ASDIR [facility] Last Admin: 09/07/19 00:22 Dose: 75 mls/hr Lidocaine (Lidoderm Patch -) 1 patch TP DAILY [facility] Last Admin: 09/07/19 10:25 Dose: 1 patch Melatonin (Melatonin) 3 mg PO [facility] Last Admin: 09/06/19 23:09 Dose: 3 mg Metoprolol Tartrate (Lopressor -) 25 mg PO BID [facility] Last Admin: 09/07/19 10:26 Dose: 25 mg Miscellaneous (Lidoderm Patch Removal) 1 each MC DAILY@2200 [facility] Last Admin: 09/06/19 23:10 Dose: 1 each Morphine Sulfate (Morphine Sulfate) 2 mg IVPUSH Q4H PRN PRN Reason: PAIN LEVEL 7 - 10 Last Admin: 09/07/19 10:37 Dose: 2 mg Multivitamins/Minerals/Vitamin C (Tab-A-Vit -) 1 tab PO DAILY [facility] Last Admin: 09/07/19 10:26 Dose: 1 tab Ondansetron HCl (Zofran Injection) 4 mg IVPUSH Q6H PRN PRN Reason: NAUSEA AND/OR VOMITING Last Admin: 09/05/19 16:45 Dose: 4 mg Oxycodone HCl (Roxicodone -) 5 mg PO Q4H PRN PRN Reason: PAIN SCALE 6-10 Last Admin: 09/06/19 06:39 Dose: 5 mg Phenazopyridine HCl (Pyridium -) 200 mg PO TID PRN PRN Reason: dysuria Last Admin: 09/05/19 19:03 Dose: 200 mg Polyethylene Glycol (Miralax (For Daily Use) -) 17 gm PO DAILY [facility] Last Admin: 09/07/19 11:20 Dose: 17 gm Potassium Chloride (K-Dur -) 40 meq PO DAILY [facility] Last Admin: 09/07/19 10:26 Dose: 40 meq Senna (Senna -) 2 tab PO HS PRN PRN Reason: CONSTIPATION Last Admin: 09/04/19 11:29 Dose: 2 tab Sitagliptin Phosphate (Januvia -) 25 mg PO DAILY@0700 [facility] Last Admin: 09/07/19 06:57 Dose: 25 mg Tamsulosin HCl (Flomax -) 0.4 mg PO DAILY@0830 [facility] Last Admin: 09/07/19 08:53 Dose: 0.4 mg 78 year old gentleman with history of CHF with reduced LVEF, Afib, Anemia and DM who presented from [place] with gross hematuria and found to have BEKA. 1. Acute kidney injury likely due to intravascular volume depletion (diuretics/ anemia) 2. Hematuria 3. CHF with reduced LVEF 4. Afib 5. Anemia Renal function is improved and stable IVF was restarted yesterday, can consider d/c as pt has oral intake Continue Lasix PO Daily Renal/Bladder US w/o obstruction no overt electrolyte or acid base disturbance noted Trend H/H, iron saturation is 11%, continue PO iron urology follow up for CBI management Thank you Saul Diaz DO
[2019-09-07] MEDS ORDERED: MORPHINE SULFATE 2 MG/ML VIAL IVPUSH PRN (15:09)
[2019-09-07] MEDS ORDERED: PT OWN MED DRAWER 7, Y5N ONE ×2 (19:10→20:43)
--- NOTE | 2019-09-07 19:34 | CONSULT ---
Consult - text type - Consultation Consultation Note: 78 year old male with history of diabetes, CHF, atrial fibrillation , anemia who presents to the emergency department for evaluation of dysuria, hematuria, and urinary Retention . Patient denies fever/chills/nausea/vomiting/melena.He comes from [facility] where a thomas was placed h/o bph,gross hematuria, h/o ca. prostate s/p cysto, clot evacuation,turp/tuvp Trilobar prostate hypertrophy/trabeculated bladder grade 3/bladder clots We have been consulted for anemia. - Past Medical History Cardiovascular: Yes: AFIB, CAD, CHF (low normal LVEF on 02/25 ECHO), HTN, Hyperlipdemia, Pulmonary Hypertension Pulmonary: Yes: COPD, O2 Dependent, Other (pulmonary htn) Renal/: Yes: BPH Heme/Onc: Yes: Anemia Endocrine: Yes: Diabetes Mellitus - Past Surgical History Past Surgical History: Yes: Stent - Smoking History Smoking history: Never smoked - Social History Usual Living Arrangement: Yes: Prison ADL: Independent - Allergies Allergies/Adverse Reactions: Allergies Allergy/AdvReac Type Severity Reaction Status Date / Time No Known Allergies Allergy Verified 08/31/19 10:49 - Home Medications Home Medications: Ambulatory Orders Alendronate Na [Fosamax (Weekly)] 70 mg PO WEEKLY 01/29/17 Atorvastatin Calcium 40 mg PO DAILY 01/29/17 Isosorbide Mononitrate [Imdur -] 60 mg PO DAILY 01/29/17 Sacubitril/Valsartan [Entresto 24 mg-26 mg Tablet] 1 tab PO BID 01/29/17 Aspirin Coated [Ecotrin -] 81 mg PO DAILY tablet.ec 11/05/17 Amlodipine Besylate 5 mg PO DAILY 05/04/18 Acetaminophen [Tylenol .Regular Strength -] 650 mg PO Q6H PRN tablet 03/07/19 Apixaban [Eliquis -] 5 mg PO BID tablet 03/07/19 Furosemide [Lasix -] 80 mg PO DAILY tablet 03/07/19 Insulin Sliding Scale [Novolog Vial Sliding Scale -] 1 vial SQ ACHS units 03/07 Potassium Chloride [K-Dur -] 40 meq PO DAILY tablet.er 03/07/19 Docusate Sodium [Colace] 300 mg PO HS 06/23/19 Dulcolax 10 mg OK DAILY PRN 06/23/19 Gabapentin 300 mg PO TID 06/23/19 Insulin Glargine,Hum.rec.anlog [Basaglar Kwikpen U-100] 20 unit SQ DAILY Iprat-Albut 0.5-3(2.5) mg/3 ml 3 ml NEB QID 06/23/19 Metolazone 2.5 mg PO ASDIR 06/23/19 Milk of Magnesia 5 5ml PO DAILY PRN 06/23/19 Oxycodone-Acetaminophen 10-325 10 mg PO Q8H PRN 06/23/19 Polyethylene Glycol 3350 [Miralax 119 gm Btl -] 17 gm PO DAILY 06/23/19 Tamsulosin HCl [Flomax] 0.4 mg PO DAILY 06/23/19 Zinc Oxide 20% Topical Oint 1 appful DAILY PRN 06/23/19 Lidocaine 5% Patch [Lidoderm -] 1 patch TP DAILY patch 07/01/19 Digoxin [Lanoxin -] 125 mcg PO DAILY 08/31/19 Mag Hydrox/Al Hydrox/Simeth [Mylanta Oral Suspension -] 30 ml PO QID 08/31/19 Melatonin 3 mg PO HS 08/31/19 Metoprolol Tartrate 25 mg PO BID 08/31/19 Multivitamin [Multiple Vitamins] 1 each PO DAILY 08/31/19 Vital Signs: AFVSS Cardiovascular: Yes: Regular Rate and Rhythm Respiratory: Yes: Regular, CTA Bilaterally Gastrointestinal: Yes: Normal Bowel Sounds, Soft, Tenderness (diffuse) Renal/: Yes: Thomas Present, Hematuria Extremities: Yes: WNL Labs/Meds reviewed A/P 78 year old male with history of diabetes, CHF, atrial fibrillation anemia who presents to the emergency department for evaluation of dysuria, hematuria, and urinary Retention . Patient denies fever/chills/nausea/vomiting/melena.He comes from [facility] where a thomas was placed h/o bph,gross hematuria, h/o ca. prostate s/p cysto, clot evacuation,turp/tuvp Trilobar prostate hypertrophy/trabeculated bladder grade 3/bladder clots Anemia : chronic disease due to multiple comorbidities --afib, CHF, DM. On asa/eliquis on feosol f/u iron studies/protein studies/B12/folate/TSH h/o prostate cancer per chart, patient denies
[2019-09-07] MEDS: ATORVASTATIN CA 40 MG TABLET (FP) PO SCH (21:32)
[2019-09-07] MEDS: MAGNESIUM HYDROX 2400MG/30ML ORAL SUSPENSION 30 ML CUP PO PRN (21:32)
[2019-09-07] MEDS: DOCUSATE SODIUM 100 MG CAPSULE (FP) PO SCH (21:33)
[2019-09-07] MEDS: PHENAZOPYRIDINE HCL 100 MG TABLET (FP) PO SCH (21:33)
[2019-09-07] MEDS: LIDOCAINE PATCH REMOVAL MC SCH (21:33)
[2019-09-07] MEDS: MELATONIN 1 MG TABLET PO SCH (23:26)
[2019-09-08] MEDS ORDERED: PT OWN MED DRAWER 7, Y5N ONE ×3 (06:13→20:29)
[2019-09-08] MEDS: GABAPENTIN 300 MG CAPSULE (FP) PO SCH ×3 (06:20→21:23)
[2019-09-08] MEDS: PHENAZOPYRIDINE HCL 100 MG TABLET (FP) PO SCH ×3 (06:20→21:24)
[2019-09-08] MEDS: ALBUTEROL SO4 2.5/IPRATROPIUM 0.5 INH SOL 3 ML VIAL.NEB. NEB SCH ×4 (08:00→20:26)
[2019-09-08 08:35] LABS: BASO % 0.3 % (0-2.0); EOS % 2.9 % (0-4.5); HEMATOCRIT 22.5 % (35.4-49); HEMOGLOBIN 7.1 GM/dL (11.7-16.9); LYMPH % 6.7 % (8-40); MCH 29.6 pg (25.7-33.7); MCHC 31.4 g/dl (32.0-35.9); MEAN CELL VOLUME 94.3 fl (80-96); MEAN PLT VOLUME 7.6 fl (7.5-11.1); MONO % 6.2 % (3.8-10.2); NEUT % 83.9 % (42.8-82.8); PLATELET COUNT 384 K/MM3 (134-434); RBC 2.38 M/mm3 (4.00-5.60); RDW 17.2 % (11.9-15.9); WHITE BLOOD COUNT 11.1 K/mm3 (4.0-10.0)
[2019-09-08 10:45] LABS: BLOOD UREA NITROGEN 22.4 mg/dL (7-18); CALCIUM 8.9 mg/dL (8.5-10.1); MAGNESIUM 1.7 mg/dL (1.8-2.4); PHOSPHOROUS 3.6 mg/dL (2.5-4.9); POTASSIUM 4.2 mmol/L (3.5-5.1)
[2019-09-08 11:18] LABS: ANISOCYTOSIS 1+; MACROCYTOSIS 0; PLATELET ESTIMATE NORMAL
[2019-09-08] MEDS: TAMSULOSIN HCL 0.4 MG CAP PO SCH (11:35)
[2019-09-08] MEDS: FERROUS SO4 325 MG TABLET (FP) PO SCH ×2 (11:36→21:22)
[2019-09-08] MEDS: amLODIPine BESYLATE 5 MG TABLET (FP) PO SCH (11:36)
[2019-09-08] MEDS: FUROSEMIDE 40 MG TABLET (FP) PO SCH (11:36)
[2019-09-08] MEDS: APIXABAN 5 MG TABLET PO SCH ×2 (11:36→21:22)
[2019-09-08] MEDS: ASPIRIN COATED 81 MG TABLET.EC PO SCH (11:36)
[2019-09-08] MEDS: MULTIVITAMINS (DAILY MVI) TABLET (FP) PO SCH (11:37)
[2019-09-08] MEDS: METOPROLOL TARTRATE 25 MG TABLET (FP) PO SCH ×2 (11:37→21:23)
[2019-09-08] MEDS: POTASSIUM CHLORIDE TABS 20 MEQ TABLET.ER (FP) PO SCH (11:37)
[2019-09-08] MEDS: POLYETHYLENE GLYCOL 3350 119 GM BTL PO SCH (11:37)
[2019-09-08] MEDS: LIDOCAINE 5% TOPICAL PATCH TP SCH (11:38)
[2019-09-08] MEDS: LACTATED RINGERS SOLUTION 1,000 ML IV SCH (12:30)
[2019-09-08] MEDS: MAGNESIUM HYDROX 2400MG/30ML ORAL SUSPENSION 30 ML CUP PO PRN (12:44)
[2019-09-08] MEDS ORDERED: MAGNESIUM SULF 50% (8.12 MEQ/2 ML-1 GM VIAL) IVPB ONE (13:07)
--- NOTE | 2019-09-08 13:13 | PN ---
Progress Note, Physician Chief Complaint: patient complaiining abdominal fullness he hasnt passed gas in a few days but passed a little stool today - Current Medication List Current Medications: Active Medications Acetaminophen (Tylenol -) 650 mg PO Q6H PRN PRN Reason: PAIN SCALE 1-5 OR FEVER Last Admin: 09/07/19 05:32 Dose: 650 mg Acetaminophen (Tylenol -) 325 mg PO Q4H PRN PRN Reason: PAIN SCALE 6-10 Last Admin: 09/06/19 06:41 Dose: 325 mg Al Hydroxide/Mg Hydroxide (Mylanta Oral Suspension -) 30 ml PO Q6H PRN PRN Reason: DYSPEPSIA Last Admin: 09/04/19 22:09 Dose: 30 ml Albuterol/Ipratropium (Duoneb -) 1 amp NEB RQID [facility] Last Admin: 09/08/19 11:45 Dose: 1 amp Amlodipine Besylate (Norvasc -) 5 mg PO DAILY [facility] Last Admin: 09/08/19 11:36 Dose: 5 mg Apixaban (Eliquis -) 5 mg PO BID [facility] Last Admin: 09/08/19 11:36 Dose: 5 mg Aspirin (Ecotrin -) 81 mg PO DAILY [facility] Last Admin: 09/08/19 11:36 Dose: 81 mg Atorvastatin Calcium (Lipitor -) 40 mg PO HS [facility] Last Admin: 09/07/19 21:32 Dose: 40 mg Docusate Sodium (Colace -) 300 mg PO HS [facility] Last Admin: 09/07/19 21:33 Dose: 300 mg Fentanyl (Sublimaze Injection -) 50 mcg IVPUSH [id number] PRN PRN Reason: PAIN-PACU ORDER X 4 DOSES ONLY Last Admin: 09/05/19 16:00 Dose: 50 mcg Ferrous Sulfate (Feosol -) 325 mg PO BID [facility] Last Admin: 09/08/19 11:36 Dose: 325 mg Furosemide (Lasix -) 80 mg PO DAILY [facility] Last Admin: 09/08/19 11:36 Dose: 80 mg Gabapentin (Neurontin -) 300 mg PO TID [facility] Last Admin: 09/08/19 06:20 Dose: 300 mg Lactated Ringer's (Lactated Ringers Solution) 1,000 mls @ 75 mls/hr IV ASDIR [facility] Last Admin: 09/07/19 21:23 Dose: 75 mls/hr Lidocaine (Lidoderm Patch -) 1 patch TP DAILY [facility] Last Admin: 09/08/19 11:38 Dose: 1 patch Magnesium Hydroxide (Milk Of Magnesia -) 30 ml PO DAILY PRN PRN Reason: CONSTIPATION Last Admin: 09/08/19 12:44 Dose: 30 ml Magnesium Sulfate (Magnesium Sulfate) 1 gm IVPB ONCE ONE Stop: 09/08/19 13:08 Melatonin (Melatonin) 3 mg PO HS [facility] Last Admin: 09/07/19 23:26 Dose: Not Given Metoprolol Tartrate (Lopressor -) 25 mg PO BID [facility] Last Admin: 09/08/19 11:37 Dose: 25 mg Miscellaneous (Lidoderm Patch Removal) 1 each MC DAILY@2200 [facility] Last Admin: 09/07/19 21:33 Dose: 1 each Morphine Sulfate (Morphine Sulfate) 2 mg IVPUSH Q4H PRN PRN Reason: PAIN LEVEL 6-10 Last Admin: 09/07/19 15:39 Dose: 2 mg Multivitamins/Minerals/Vitamin C (Tab-A-Vit -) 1 tab PO DAILY [facility] Last Admin: 09/08/19 11:37 Dose: 1 tab Ondansetron HCl (Zofran Injection) 4 mg IVPUSH Q6H PRN PRN Reason: NAUSEA AND/OR VOMITING Last Admin: 09/05/19 16:45 Dose: 4 mg Oxycodone HCl (Roxicodone -) 5 mg PO Q4H PRN PRN Reason: PAIN SCALE 6-10 Last Admin: 09/06/19 06:39 Dose: 5 mg Phenazopyridine HCl (Pyridium -) 200 mg PO TID [facility] Last Admin: 09/08/19 06:20 Dose: 200 mg Polyethylene Glycol (Miralax (For Daily Use) -) 17 gm PO DAILY [facility] Last Admin: 09/08/19 11:37 Dose: 17 gm Potassium Chloride (K-Dur -) 40 meq PO DAILY [facility] Last Admin: 09/08/19 11:37 Dose: 40 meq Senna (Senna -) 2 tab PO HS PRN PRN Reason: CONSTIPATION Last Admin: 09/04/19 11:29 Dose: 2 tab Sitagliptin Phosphate (Januvia -) 25 mg PO DAILY@0700 [facility] Last Admin: 09/08/19 06:20 Dose: 25 mg Tamsulosin HCl (Flomax -) 0.4 mg PO DAILY@0830 [facility] Last Admin: 09/08/19 11:35 Dose: 0.4 mg - Objective Vital Signs: Vital Signs Temperature 97.4 F L 09/08/19 05:00 Pulse Rate 99 H 09/08/19 05:00 Respiratory Rate 18 09/08/19 05:00 Blood Pressure 135/68 09/08/19 05:00 O2 Sat by Pulse Oximetry (%) 97 09/07/19 10:45 Constitutional: Yes: Calm Cardiovascular: Yes: Regular Rate and Rhythm, S1, S2 Respiratory: Yes: CTA Bilaterally Gastrointestinal: Yes: Normal Bowel Sounds, Soft, Distention Genitourinary: Yes: Iqbal Present, Hematuria Labs: CBC, BMP 09/08/19 07:50 09/08/19 07:50 INR, PTT INR 1.53 (0.83-1.09) H 08/31/19 12:31 Problem List - Problems (1) Gross hematuria Assessment/Plan: Operative Date: 09/05/19 Pre-Operative Diagnosis: bph, aur, gross hematuria, h/o ca. prostate Operation: cysto, clot evacuation,turp/tuvp Findings: Trilobar prostate hypertrophy/trabeculated bladder grade 3/bladder clots CBI in progress urology follow up and trend h/h Code(s): R31.0 - GROSS HEMATURIA (2) BEKA (acute kidney injury) Assessment/Plan: renal sono- normal kidney no hydronephrosis creatinine trending down and now normal Code(s): N17.9 - ACUTE KIDNEY FAILURE, UNSPECIFIED (3) UTI (urinary tract infection) Assessment/Plan: Microbiology 08/31/19 12:39 Urine - Urine Iqbal Urine Culture - Preliminary Proteus Species iv abx Code(s): N39.0 - URINARY TRACT INFECTION, SITE NOT SPECIFIED (4) Anemia Assessment/Plan: s/p venofer and prbc heme on board UPEP and SPEP ordered Code(s): D64.9 - ANEMIA, UNSPECIFIED Qualifiers: Anemia type: iron deficiency (5) Diabetes Assessment/Plan: januvia bgm noted in range Code(s): E11.9 - TYPE 2 DIABETES MELLITUS WITHOUT COMPLICATIONS Qualifiers: Diabetes mellitus type: other specified (including TAN) Diabetes mellitus intermediate insulin use: unspecified intermediate insulin use status Diabetes mellitus complication status: with other specified complication Qualified Code (s): E13.69 - Other specified diabetes mellitus with other specified complication
[2019-09-08] MEDS ORDERED: cefTRIAXone SODIUM 1 GM VIAL ONE (13:52)
[2019-09-08] MEDS ORDERED: DEXTROSE 5%-WATER - 50 ML IVPB ONE (13:52)
[2019-09-08] MEDS: CEFTRIAXONE 1 GM in DEXTROSE 5%-WATER - 50 ML IVPB SCH (13:55)
[2019-09-08] MEDS: MAG HYDROX/AL HYDROX/SIMETH 30 ML UNIT-DOSE CUP PO PRN (13:55)
[2019-09-08] MEDS ORDERED: MINERAL OIL ENEMA 133 ML ENEMA PR ONE (14:12)
--- NOTE | 2019-09-08 15:16 | PATH ---
Surgical Pathology Report Patient Name: KAYLEEN CORBETT Med. Rec. #: [id number] /Age/Gender: 1940 (Age: 78) / M Account: [id number] Location: [address] [place] [address]/[facility] Taken: 09/05/2019 Received: 09/06/2019 Reported: 09/08/2019 Physicians: Omar Friedman M.D. Specimen(s) Received PROSTATE CHIPS Clinical History Gross hematuria, urinary retention, prostate cancer Final Diagnosis PROSTATE, TRANSURETHRAL RESECTION OF PROSTATE: BENIGN PROSTATIC TISSUE WITH FOCAL ACUTE AND CHRONIC INFLAMMATION, REACTIVE CHANGES, AND STROMAL HYPERPLASIA. Comment: Immunohistochemical stains performed and interpreted at [facility] for p63 show preserved basal cells. Positive and negative controls (internal if applicable) show appropriate results. Electronically Signed Nazanin Garcia M.D. Gross Description Received in formalin labeled "prostate," is a 2 g, 4.5 x 3.0 x 0.4 cm aggregate of jo, firm to rubbery portions of tissue, consistent with prostate chips. The specimen is entirely submitted in 3 cassettes. DL/09/06/2019 saudi/09/06/2019
--- NOTE | 2019-09-08 15:28 | PN ---
Progress Note (short form) - Note Progress Note: Hematology and oncology follow up Subjective: Patient seen and examined at bedside. No new complaints, no events overnight. Patient states that his hematuria has resolved. Objective: Vital Signs Temperature 97.4 F L 09/08/19 05:00 Pulse Rate 99 H 09/08/19 05:00 Respiratory Rate 18 09/08/19 05:00 Blood Pressure 135/68 09/08/19 05:00 O2 Sat by Pulse Oximetry (%) 97 09/07/19 10:45 Physical Exam: General: patient well appearing in NAD lungs: clear to ausculation b/l down to the bases Heart: RRR, s1, s2 heard. No murmurs, gallops, rubs abdomen: soft, nontender, not distended, bowel sounds heard. Active Medications Acetaminophen (Tylenol -) 650 mg PO Q6H PRN PRN Reason: PAIN SCALE 1-5 OR FEVER Last Admin: 09/07/19 05:32 Dose: 650 mg Acetaminophen (Tylenol -) 325 mg PO Q4H PRN PRN Reason: PAIN SCALE 6-10 Last Admin: 09/06/19 06:41 Dose: 325 mg Al Hydroxide/Mg Hydroxide (Mylanta Oral Suspension -) 30 ml PO Q6H PRN PRN Reason: DYSPEPSIA Last Admin: 09/08/19 13:55 Dose: 30 ml Albuterol/Ipratropium (Duoneb -) 1 amp NEB RQID [facility] Last Admin: 09/08/19 11:45 Dose: 1 amp Amlodipine Besylate (Norvasc -) 5 mg PO DAILY [facility] Last Admin: 09/08/19 11:36 Dose: 5 mg Apixaban (Eliquis -) 5 mg PO BID [facility] Last Admin: 09/08/19 11:36 Dose: 5 mg Aspirin (Ecotrin -) 81 mg PO DAILY [facility] Last Admin: 09/08/19 11:36 Dose: 81 mg Atorvastatin Calcium (Lipitor -) 40 mg PO HS [facility] Last Admin: 09/07/19 21:32 Dose: 40 mg Docusate Sodium (Colace -) 300 mg PO HS [facility] Last Admin: 09/07/19 21:33 Dose: 300 mg Fentanyl (Sublimaze Injection -) 50 mcg IVPUSH [id number] PRN PRN Reason: PAIN-PACU ORDER X 4 DOSES ONLY Last Admin: 09/05/19 16:00 Dose: 50 mcg Ferrous Sulfate (Feosol -) 325 mg PO BID [facility] Last Admin: 09/08/19 11:36 Dose: 325 mg Furosemide (Lasix -) 80 mg PO DAILY [facility] Last Admin: 09/08/19 11:36 Dose: 80 mg Gabapentin (Neurontin -) 300 mg PO TID [facility] Last Admin: 09/08/19 13:56 Dose: 300 mg Lactated Ringer's (Lactated Ringers Solution) 1,000 mls @ 75 mls/hr IV ASDIR [facility] Last Admin: 09/07/19 21:23 Dose: 75 mls/hr Ceftriaxone Sodium 1 gm/ (Dextrose) 50 mls @ 200 mls/hr IVPB DAILY [facility]; Protocol Last Admin: 09/08/19 13:55 Dose: 200 mls/hr Lidocaine (Lidoderm Patch -) 1 patch TP DAILY [facility] Last Admin: 09/08/19 11:38 Dose: 1 patch Magnesium Hydroxide (Milk Of Magnesia -) 30 ml PO DAILY PRN PRN Reason: CONSTIPATION Last Admin: 09/08/19 12:44 Dose: 30 ml Melatonin (Melatonin) 3 mg PO HS [facility] Last Admin: 09/07/19 23:26 Dose: Not Given Metoprolol Tartrate (Lopressor -) 25 mg PO BID [facility] Last Admin: 09/08/19 11:37 Dose: 25 mg Miscellaneous (Lidoderm Patch Removal) 1 each MC DAILY@2200 [facility] Last Admin: 09/07/19 21:33 Dose: 1 each Morphine Sulfate (Morphine Sulfate) 2 mg IVPUSH Q4H PRN PRN Reason: PAIN LEVEL 6-10 Last Admin: 09/07/19 15:39 Dose: 2 mg Multivitamins/Minerals/Vitamin C (Tab-A-Vit -) 1 tab PO DAILY [facility] Last Admin: 09/08/19 11:37 Dose: 1 tab Ondansetron HCl (Zofran Injection) 4 mg IVPUSH Q6H PRN PRN Reason: NAUSEA AND/OR VOMITING Last Admin: 09/05/19 16:45 Dose: 4 mg Oxycodone HCl (Roxicodone -) 5 mg PO Q4H PRN PRN Reason: PAIN SCALE 6-10 Last Admin: 09/06/19 06:39 Dose: 5 mg Phenazopyridine HCl (Pyridium -) 200 mg PO TID [facility] Last Admin: 09/08/19 06:20 Dose: 200 mg Polyethylene Glycol (Miralax (For Daily Use) -) 17 gm PO DAILY [facility] Last Admin: 09/08/19 11:37 Dose: 17 gm Potassium Chloride (K-Dur -) 40 meq PO DAILY [facility] Last Admin: 09/08/19 11:37 Dose: 40 meq Senna (Senna -) 2 tab PO HS PRN PRN Reason: CONSTIPATION Last Admin: 09/04/19 11:29 Dose: 2 tab Sitagliptin Phosphate (Januvia -) 25 mg PO DAILY@0700 [facility] Last Admin: 09/08/19 06:20 Dose: 25 mg Tamsulosin HCl (Flomax -) 0.4 mg PO DAILY@0830 [facility] Last Admin: 09/08/19 11:35 Dose: 0.4 mg Home Medications Medication Instructions Recorded Alendronate Na [Fosamax (Weekly)] 70 mg PO WEEKLY 01/29/17 Atorvastatin Calcium 40 mg PO DAILY 01/29/17 Isosorbide Mononitrate [Imdur -] 60 mg PO DAILY 01/29/17 Sacubitril/Valsartan [Entresto 24 1 tab PO BID 01/29/17 mg-26 mg Tablet] Aspirin Coated [Ecotrin -] 81 mg PO DAILY tablet.ec 11/05/17 Amlodipine Besylate 5 mg PO DAILY 05/04/18 Acetaminophen [Tylenol .Regular 650 mg PO Q6H PRN tablet 03/07/19 Strength -] Apixaban [Eliquis -] 5 mg PO BID tablet 03/07/19 Furosemide [Lasix -] 80 mg PO DAILY tablet 03/07/19 Insulin Sliding Scale [Novolog 1 vial SQ ACHS units 03/07/19 Vial Sliding Scale -] Potassium Chloride [K-Dur -] 40 meq PO DAILY tablet.er 03/07/19 Docusate Sodium [Colace] 300 mg PO HS 06/23/19 Dulcolax 10 mg [place] DAILY PRN 06/23/19 Gabapentin 300 mg PO TID 06/23/19 Insulin Glargine,Hum.rec.anlog 20 unit SQ DAILY 06/23/19 [Basaglar Kwikpen U-100] Iprat-Albut 0.5-3(2.5) mg/3 ml 3 ml NEB QID 06/23/19 Metolazone 2.5 mg PO ASDIR 06/23/19 Milk of Magnesia 5 5ml PO DAILY PRN 06/23/19 Oxycodone-Acetaminophen 10-325 10 mg PO Q8H PRN 06/23/19 Polyethylene Glycol 3350 [Miralax 17 gm PO DAILY 06/23/19 119 gm Btl -] Tamsulosin HCl [Flomax] 0.4 mg PO DAILY 06/23/19 Zinc Oxide 20% Topical Oint 1 appful DAILY PRN 06/23/19 Lidocaine 5% Patch [Lidoderm -] 1 patch TP DAILY patch 07/01/19 Digoxin [Lanoxin -] 125 mcg PO DAILY 08/31/19 Mag Hydrox/Al Hydrox/Simeth 30 ml PO QID 08/31/19 [Mylanta Oral Suspension -] Melatonin 3 mg PO HS 08/31/19 Metoprolol Tartrate 25 mg PO BID 08/31/19 Multivitamin [Multiple Vitamins] 1 each PO DAILY 08/31/19 Allergies Allergy/AdvReac Type Severity Reaction Status Date / Time No Known Allergies Allergy Verified 08/31/19 10:49 CBC, BMP 09/08/19 07:50 09/08/19 07:50 Assessment and plan: Patient is a 78 y/o male with past medical history of DM, CHF, Afib, Anemia. Patient presented to ER from [facility] for hematuria. he was found to be anemic. #anemia likely 2/2 hematuria r/o blood malignancy or occult GI loss -iron studies low -s/p venofer yesterday -SPEP, UPEP sent -flow cytometry sent today -monitor CBC daily -Hb 7.1 today; slowly dropping over the past few days -transfuse to maintain Hb >7
[2019-09-08] MEDS: DOCUSATE SODIUM 100 MG CAPSULE (FP) PO SCH (21:21)
[2019-09-08] MEDS: ATORVASTATIN CA 40 MG TABLET (FP) PO SCH (21:22)
[2019-09-08] MEDS: LIDOCAINE PATCH REMOVAL MC SCH (21:24)
[2019-09-08] MEDS: MELATONIN 1 MG TABLET PO SCH (21:43)
[2019-09-09] MEDS: LACTATED RINGERS SOLUTION 1,000 ML IV SCH (03:50)
[2019-09-09] MEDS: GABAPENTIN 300 MG CAPSULE (FP) PO SCH ×3 (06:34→21:45)
[2019-09-09] MEDS: PHENAZOPYRIDINE HCL 100 MG TABLET (FP) PO SCH ×3 (06:34→21:45)
[2019-09-09 08:20] LABS: BASO % 0.6 % (0-2.0); EOS % 2.1 % (0-4.5); HEMATOCRIT 21.8 % (35.4-49); LYMPH % 5.7 % (8-40); MCH 30.4 pg (25.7-33.7); MEAN PLT VOLUME 7.4 fl (7.5-11.1); MONO % 4.1 % (3.8-10.2); NEUT % 87.5 % (42.8-82.8); PLATELET COUNT 397 K/MM3 (134-434); RBC 2.29 M/mm3 (4.00-5.60); RDW 16.6 % (11.9-15.9); WHITE BLOOD COUNT 14.1 K/mm3 (4.0-10.0)
[2019-09-09] MEDS: ALBUTEROL SO4 2.5/IPRATROPIUM 0.5 INH SOL 3 ML VIAL.NEB. NEB SCH ×4 (08:20→20:40)
[2019-09-09 09:20] LABS: ALBUMIN 2.4 g/dl (3.4-5.0); BILIRUBIN,TOTAL 0.6 mg/dL (0.2-1); BLOOD UREA NITROGEN 18.6 mg/dL (7-18); CREATININE 1.1 mg/dL (0.55-1.3); MAGNESIUM 1.9 mg/dL (1.8-2.4); POTASSIUM 4.5 mmol/L (3.5-5.1); TOT PROT 5.7 g/dl (6.4-8.2)
[2019-09-09] MEDS ORDERED: DEXTROSE 5%-WATER - 50 ML IVPB ONE (09:33)
[2019-09-09] MEDS ORDERED: cefTRIAXone SODIUM 1 GM VIAL ONE (09:33)
[2019-09-09] MEDS: MAGNESIUM HYDROX 2400MG/30ML ORAL SUSPENSION 30 ML CUP PO PRN (09:37)
[2019-09-09] MEDS: TAMSULOSIN HCL 0.4 MG CAP PO SCH (09:38)
[2019-09-09] MEDS: ASPIRIN COATED 81 MG TABLET.EC PO SCH (09:38)
[2019-09-09] MEDS: FUROSEMIDE 40 MG TABLET (FP) PO SCH (09:38)
[2019-09-09] MEDS: CEFTRIAXONE 1 GM in DEXTROSE 5%-WATER - 50 ML IVPB SCH (09:38)
[2019-09-09] MEDS: POTASSIUM CHLORIDE TABS 20 MEQ TABLET.ER (FP) PO SCH (09:38)
[2019-09-09] MEDS: APIXABAN 5 MG TABLET PO SCH ×2 (09:39→21:46)
[2019-09-09] MEDS: amLODIPine BESYLATE 5 MG TABLET (FP) PO SCH (09:39)
[2019-09-09] MEDS: POLYETHYLENE GLYCOL 3350 119 GM BTL PO SCH (09:39)
[2019-09-09] MEDS: METOPROLOL TARTRATE 25 MG TABLET (FP) PO SCH ×2 (09:39→21:48)
[2019-09-09] MEDS: FERROUS SO4 325 MG TABLET (FP) PO SCH ×2 (09:39→21:45)
[2019-09-09] MEDS: MULTIVITAMINS (DAILY MVI) TABLET (FP) PO SCH (09:39)
[2019-09-09] MEDS: LIDOCAINE 5% TOPICAL PATCH TP SCH (09:40)
[2019-09-09] MEDS: ACETAMINOPHEN 325 MG TABLET (FP) PO PRN (12:05)
[2019-09-09] MEDS: oxyCODONE HCL 5 MG TABLET PO PRN (12:06)
[2019-09-09] MEDS: MAG HYDROX/AL HYDROX/SIMETH 30 ML UNIT-DOSE CUP PO PRN (12:07)
[2019-09-09] MEDS ORDERED: IRON SUCROSE INJECTION 200 MG in SODIUM CHLORIDE 90 ML IVPB ONE (13:00)
[2019-09-09] MEDS ORDERED: MINERAL OIL ENEMA 133 ML ENEMA PR PRN (13:02)
--- NOTE | 2019-09-09 13:04 | PN ---
Progress Note, Physician Chief Complaint: patient seen and examined h/h trending down had a bm after the enema yesterday evening abdominal fullness improved - Current Medication List Current Medications: Active Medications Acetaminophen (Tylenol -) 650 mg PO Q6H PRN PRN Reason: PAIN SCALE 1-5 OR FEVER Last Admin: 09/07/19 05:32 Dose: 650 mg Acetaminophen (Tylenol -) 325 mg PO Q4H PRN PRN Reason: PAIN SCALE 6-10 Last Admin: 09/09/19 12:05 Dose: 325 mg Al Hydroxide/Mg Hydroxide (Mylanta Oral Suspension -) 30 ml PO Q6H PRN PRN Reason: DYSPEPSIA Last Admin: 09/09/19 12:07 Dose: 30 ml Albuterol/Ipratropium (Duoneb -) 1 amp NEB RQID [facility] Last Admin: 09/09/19 12:13 Dose: 1 amp Amlodipine Besylate (Norvasc -) 5 mg PO DAILY [facility] Last Admin: 09/09/19 09:39 Dose: 5 mg Apixaban (Eliquis -) 5 mg PO BID [facility] Last Admin: 09/09/19 09:39 Dose: 5 mg Aspirin (Ecotrin -) 81 mg PO DAILY [facility] Last Admin: 09/09/19 09:38 Dose: 81 mg Atorvastatin Calcium (Lipitor -) 40 mg PO HS [facility] Last Admin: 09/08/19 21:22 Dose: 40 mg Docusate Sodium (Colace -) 300 mg PO HS [facility] Last Admin: 09/08/19 21:21 Dose: 300 mg Fentanyl (Sublimaze Injection -) 50 mcg IVPUSH [id number] PRN PRN Reason: PAIN-PACU ORDER X 4 DOSES ONLY Last Admin: 09/05/19 16:00 Dose: 50 mcg Ferrous Sulfate (Feosol -) 325 mg PO BID [facility] Last Admin: 09/09/19 09:39 Dose: 325 mg Furosemide (Lasix -) 80 mg PO DAILY [facility] Last Admin: 09/09/19 09:38 Dose: 80 mg Gabapentin (Neurontin -) 300 mg PO TID [facility] Last Admin: 09/09/19 06:34 Dose: 300 mg Lactated Ringer's (Lactated Ringers Solution) 1,000 mls @ 75 mls/hr IV ASDIR [facility] Last Admin: 09/09/19 03:50 Dose: 75 mls/hr Ceftriaxone Sodium 1 gm/ (Dextrose) 50 mls @ 200 mls/hr IVPB DAILY [facility]; Protocol Last Admin: 09/09/19 09:38 Dose: 200 mls/hr Iron Sucrose 200 mg/ Sodium (Chloride) 100 mls @ 100 mls/hr IVPB ONCE ONE Stop: 09/09/19 13:59 Lidocaine (Lidoderm Patch -) 1 patch TP DAILY [facility] Last Admin: 09/09/19 09:40 Dose: 1 patch Magnesium Hydroxide (Milk Of Magnesia -) 30 ml PO DAILY PRN PRN Reason: CONSTIPATION Last Admin: 09/09/19 09:37 Dose: 30 ml Melatonin (Melatonin) 3 mg PO HS [facility] Last Admin: 09/08/19 21:43 Dose: 3 mg Metoprolol Tartrate (Lopressor -) 25 mg PO BID [facility] Last Admin: 09/09/19 09:39 Dose: 25 mg Miscellaneous (Lidoderm Patch Removal) 1 each MC DAILY@2200 [facility] Last Admin: 09/08/19 21:24 Dose: 1 each Morphine Sulfate (Morphine Sulfate) 2 mg IVPUSH Q4H PRN PRN Reason: PAIN LEVEL 6-10 Last Admin: 09/07/19 15:39 Dose: 2 mg Multivitamins/Minerals/Vitamin C (Tab-A-Vit -) 1 tab PO DAILY [facility] Last Admin: 09/09/19 09:39 Dose: 1 tab Ondansetron HCl (Zofran Injection) 4 mg IVPUSH Q6H PRN PRN Reason: NAUSEA AND/OR VOMITING Last Admin: 09/05/19 16:45 Dose: 4 mg Oxycodone HCl (Roxicodone -) 5 mg PO Q4H PRN PRN Reason: PAIN SCALE 6-10 Last Admin: 09/09/19 12:06 Dose: 5 mg Phenazopyridine HCl (Pyridium -) 200 mg PO TID [facility] Last Admin: 09/09/19 06:34 Dose: 200 mg Polyethylene Glycol (Miralax (For Daily Use) -) 17 gm PO DAILY [facility] Last Admin: 09/09/19 09:39 Dose: 17 gm Potassium Chloride (K-Dur -) 40 meq PO DAILY [facility] Last Admin: 09/09/19 09:38 Dose: 40 meq Senna (Senna -) 2 tab PO HS PRN PRN Reason: CONSTIPATION Last Admin: 09/04/19 11:29 Dose: 2 tab Sitagliptin Phosphate (Januvia -) 25 mg PO DAILY@0700 [facility] Last Admin: 09/09/19 06:34 Dose: 25 mg Tamsulosin HCl (Flomax -) 0.4 mg PO DAILY@0830 [facility] Last Admin: 09/09/19 09:38 Dose: 0.4 mg - Objective Vital Signs: Vital Signs Temperature 98.2 F 09/09/19 06:00 Pulse Rate 80 09/09/19 06:00 Respiratory Rate 09/09/19 06:00 Blood Pressure 132/69 09/09/19 06:00 O2 Sat by Pulse Oximetry (%) 99 09/09/19 08:20 Constitutional: Yes: Calm Cardiovascular: Yes: Regular Rate and Rhythm, S1, S2 Respiratory: Yes: CTA Bilaterally, Diminished (at bases) Gastrointestinal: Yes: Normal Bowel Sounds, Soft Genitourinary: Yes: Iqbal Present Labs: CBC, BMP 09/09/19 07:40 09/09/19 07:40 INR, PTT INR 1.53 (0.83-1.09) H 08/31/19 12:31 Problem List - Problems (1) Gross hematuria Assessment/Plan: Operative Date: 09/05/19 Pre-Operative Diagnosis: bph, aur, gross hematuria, h/o ca. prostate Operation: cysto, clot evacuation,turp/tuvp Findings: Trilobar prostate hypertrophy/trabeculated bladder grade 3/bladder clots CBI in progress urology follow up and trend h/h prbc with venofer today Code(s): R31.0 - GROSS HEMATURIA (2) BEKA (acute kidney injury) Assessment/Plan: improved dc ivf Code(s): N17.9 - ACUTE KIDNEY FAILURE, UNSPECIFIED (3) UTI (urinary tract infection) Assessment/Plan: Microbiology 08/31/19 12:39 Urine - Urine Iqbal Urine Culture - Preliminary Proteus Species iv abx Code(s): N39.0 - URINARY TRACT INFECTION, SITE NOT SPECIFIED (4) Anemia Assessment/Plan: prbc and 2nd dose of venofer heme on board UPEP and SPEP ordered Code(s): D64.9 - ANEMIA, UNSPECIFIED Qualifiers: Anemia type: iron deficiency (5) Diabetes Assessment/Plan: januvia bgm noted in range Code(s): E11.9 - TYPE 2 DIABETES MELLITUS WITHOUT COMPLICATIONS Qualifiers: Diabetes mellitus type: other specified (including TAN) Diabetes mellitus jail insulin use: 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
--- NOTE | 2019-09-09 13:25 | PN ---
Progress Note (short form) - Note Progress Note: UROLOGY NOTE. PT. WITH H/O CA. PROSTATE, S/P TURP MONSON WITH CBI IS CLEAR, NO CLOTS,ABD. IS SOFT, N/T, BS++ PLAN-D/C MONSON IN AM.
--- NOTE | 2019-09-09 14:23 | PN ---
Progress Note, Physician History of Present Illness: The patient is a 78 year old male with history of diabetes, CHF, atrial fibrillation anemia who presents to the emergency department for evaluation of dysuria, hematuria, and urinary Retention since last night. Patient denies fever /chills/nausea/vomiting/melena.He comes from [facility] where a thomas was placed this morning. - Current Medication List Current Medications: Active Medications Acetaminophen (Tylenol -) 650 mg PO Q6H PRN PRN Reason: PAIN SCALE 1-5 OR FEVER Last Admin: 09/07/19 05:32 Dose: 650 mg Acetaminophen (Tylenol -) 325 mg PO Q4H PRN PRN Reason: PAIN SCALE 6-10 Last Admin: 09/09/19 12:05 Dose: 325 mg Al Hydroxide/Mg Hydroxide (Mylanta Oral Suspension -) 30 ml PO Q6H PRN PRN Reason: DYSPEPSIA Last Admin: 09/09/19 12:07 Dose: 30 ml Albuterol/Ipratropium (Duoneb -) 1 amp NEB RQID [facility] Last Admin: 09/09/19 12:13 Dose: 1 amp Amlodipine Besylate (Norvasc -) 5 mg PO DAILY [facility] Last Admin: 09/09/19 09:39 Dose: 5 mg Apixaban (Eliquis -) 5 mg PO BID [facility] Last Admin: 09/09/19 09:39 Dose: 5 mg Aspirin (Ecotrin -) 81 mg PO DAILY [facility] Last Admin: 09/09/19 09:38 Dose: 81 mg Atorvastatin Calcium (Lipitor -) 40 mg PO [facility] Last Admin: 09/08/19 21:22 Dose: 40 mg Docusate Sodium (Colace -) 300 mg PO [facility] Last Admin: 09/08/19 21:21 Dose: 300 mg Fentanyl (Sublimaze Injection -) 50 mcg IVPUSH [id number] PRN PRN Reason: PAIN-PACU ORDER X 4 DOSES ONLY Last Admin: 09/05/19 16:00 Dose: 50 mcg Ferrous Sulfate (Feosol -) 325 mg PO BID [facility] Last Admin: 09/09/19 09:39 Dose: 325 mg Furosemide (Lasix -) 80 mg PO DAILY [facility] Last Admin: 09/09/19 09:38 Dose: 80 mg Gabapentin (Neurontin -) 300 mg PO TID [facility] Last Admin: 09/09/19 06:34 Dose: 300 mg Ceftriaxone Sodium 1 gm/ (Dextrose) 50 mls @ 200 mls/hr IVPB DAILY [facility]; Protocol Last Admin: 09/09/19 09:38 Dose: 200 mls/hr Lidocaine (Lidoderm Patch -) 1 patch TP DAILY [facility] Last Admin: 09/09/19 09:40 Dose: 1 patch Magnesium Hydroxide (Milk Of Magnesia -) 30 ml PO DAILY PRN PRN Reason: CONSTIPATION Last Admin: 09/09/19 09:37 Dose: 30 ml Melatonin (Melatonin) 3 mg PO HS [facility] Last Admin: 09/08/19 21:43 Dose: 3 mg Metoprolol Tartrate (Lopressor -) 25 mg PO BID [facility] Last Admin: 09/09/19 09:39 Dose: 25 mg Mineral Oil (Fleet Mineral Oil Rectal Enema -) 133 ml PA NOW PRN PRN Reason: CONSTIPATION Miscellaneous (Lidoderm Patch Removal) 1 each MC DAILY@2200 [facility] Last Admin: 09/08/19 21:24 Dose: 1 each Morphine Sulfate (Morphine Sulfate) 2 mg IVPUSH Q4H PRN PRN Reason: PAIN LEVEL 6-10 Last Admin: 09/07/19 15:39 Dose: 2 mg Multivitamins/Minerals/Vitamin C (Tab-A-Vit -) 1 tab PO DAILY [facility] Last Admin: 09/09/19 09:39 Dose: 1 tab Ondansetron HCl (Zofran Injection) 4 mg IVPUSH Q6H PRN PRN Reason: NAUSEA AND/OR VOMITING Last Admin: 09/05/19 16:45 Dose: 4 mg Oxycodone HCl (Roxicodone -) 5 mg PO Q4H PRN PRN Reason: PAIN SCALE 6-10 Last Admin: 09/09/19 12:06 Dose: 5 mg Phenazopyridine HCl (Pyridium -) 200 mg PO TID [facility] Last Admin: 09/09/19 06:34 Dose: 200 mg Polyethylene Glycol (Miralax (For Daily Use) -) 17 gm PO DAILY [facility] Last Admin: 09/09/19 09:39 Dose: 17 gm Potassium Chloride (K-Dur -) 40 meq PO DAILY [facility] Last Admin: 09/09/19 09:38 Dose: 40 meq Senna (Senna -) 2 tab PO HS PRN PRN Reason: CONSTIPATION Last Admin: 09/04/19 11:29 Dose: 2 tab Sitagliptin Phosphate (Januvia -) 25 mg PO DAILY@0700 [facility] Last Admin: 09/09/19 06:34 Dose: 25 mg Tamsulosin HCl (Flomax -) 0.4 mg PO DAILY@0830 [facility] Last Admin: 09/09/19 09:38 Dose: 0.4 mg - Objective Vital Signs: Vital Signs Temperature 98.4 F 09/09/19 10:00 Pulse Rate 88 09/09/19 10:00 Respiratory Rate 18 09/09/19 10:00 Blood Pressure 132/59 L 09/09/19 10:00 O2 Sat by Pulse Oximetry (%) 99 09/09/19 08:20 Eyes: Yes: WNL, Conjunctiva Clear, EOM Intact HENT: Yes: WNL, Atraumatic, Normocephalic Neck: Yes: WNL, Supple, Trachea Midline Cardiovascular: Yes: WNL, Regular Rate and Rhythm Respiratory: Yes: WNL, Regular, CTA Bilaterally Gastrointestinal: Yes: WNL, Normal Bowel Sounds Genitourinary: Yes: WNL Musculoskeletal: Yes: WNL Extremities: Yes: WNL Edema: No Integumentary: Yes: WNL Neurological: Yes: WNL, Alert, Oriented ...Motor Strength: WNL Psychiatric: Yes: WNL Labs: CBC, BMP 09/09/19 07:40 09/09/19 07:40 INR, PTT INR 1.53 (0.83-1.09) H 08/31/19 12:31 Problem List - Problems (1) BEKA (acute kidney injury) Code(s): N17.9 - ACUTE KIDNEY FAILURE, UNSPECIFIED (2) Acute urinary retention Code(s): R33.8 - OTHER RETENTION OF URINE (3) Gross hematuria Code(s): R31.0 - GROSS HEMATURIA (4) Leukocytosis Code(s): D72.829 - ELEVATED WHITE BLOOD CELL COUNT, UNSPECIFIED (5) Abdominal bloating Code(s): R14.0 - ABDOMINAL DISTENSION (GASEOUS) (6) Abdominal discomfort Code(s): R10.9 - UNSPECIFIED ABDOMINAL PAIN (7) Abnormal liver enzymes Code(s): R74.8 - ABNORMAL LEVELS OF OTHER SERUM ENZYMES (8) Acute respiratory failure with hypoxia and hypercapnia Code(s): J96.01 - ACUTE RESPIRATORY FAILURE WITH HYPOXIA; J96.02 - ACUTE RESPIRATORY FAILURE WITH HYPERCAPNIA (9) Anemia Code(s): D64.9 - ANEMIA, UNSPECIFIED Qualifiers: Anemia type: iron deficiency (10) Atrial fibrillation Code(s): I48.91 - UNSPECIFIED ATRIAL FIBRILLATION (11) BPH (benign prostatic hyperplasia) Code(s): N40.0 - BENIGN PROSTATIC HYPERPLASIA WITHOUT LOWER URINRY TRACT SYMP (12) CHF (congestive heart failure) Code(s): I50.9 - HEART FAILURE, UNSPECIFIED Qualifiers: Heart failure type: unspecified Heart failure chronicity: chronic Qualified Code(s): I50.9 - Heart failure, unspecified (13) Chronic combined systolic and diastolic CHF, NYHA class 4 Code(s): I50.42 - CHRONIC COMBINED SYSTOLIC AND DIASTOLIC HRT FAIL (14) Chronic hypoxemic respiratory failure Code(s): J96.11 - CHRONIC RESPIRATORY FAILURE WITH HYPOXIA (15) Depression Code(s): F32.9 - MAJOR DEPRESSIVE DISORDER, SINGLE EPISODE, UNSPECIFIED (16) Diabetes Code(s): E11.9 - TYPE 2 DIABETES MELLITUS WITHOUT COMPLICATIONS Qualifiers: Diabetes mellitus type: other specified (including TAN) Diabetes mellitus lobsterman insulin use: unspecified lobsterman insulin use status Diabetes mellitus complication status: with other specified complication Qualified Code (s): E13.69 - Other specified diabetes mellitus with other specified complication (17) Dyspnea Code(s): R06.00 - DYSPNEA, UNSPECIFIED Qualifiers: Dyspnea type: unspecified Qualified Code(s): R06.00 - Dyspnea, unspecified (18) Early satiety Code(s): R68.81 - EARLY SATIETY (19) Elevated troponin Code(s): R74.8 - ABNORMAL LEVELS OF OTHER SERUM ENZYMES (20) Extremity pain Code(s): M79.609 - PAIN IN UNSPECIFIED LIMB (21) Fall Code(s): W19.XXXA - UNSPECIFIED FALL, INITIAL ENCOUNTER (22) Gallstones Code(s): K80.20 - CALCULUS OF GALLBLADDER W/O CHOLECYSTITIS W/O OBSTRUCTION (23) HLD (hyperlipidemia) Code(s): E78.5 - HYPERLIPIDEMIA, UNSPECIFIED (24) Hypertension Code(s): I10 - ESSENTIAL (PRIMARY) HYPERTENSION Qualifiers: Hypertension type: unspecified Qualified Code(s): I10 - Essential (primary ) hypertension (25) Hypomagnesemia Code(s): E83.42 - HYPOMAGNESEMIA (26) Increased oxygen demand Code(s): R06.89 - OTHER ABNORMALITIES OF BREATHING (27) Morbid obesity Code(s): E66.01 - MORBID (SEVERE) OBESITY DUE TO EXCESS CALORIES (28) PSVT (paroxysmal supraventricular tachycardia) Code(s): I47.1 - SUPRAVENTRICULAR TACHYCARDIA (29) Paroxysmal A-fib Code(s): I48.0 - PAROXYSMAL ATRIAL FIBRILLATION (30) Pneumonia Code(s): J18.9 - PNEUMONIA, UNSPECIFIED ORGANISM (31) Prophylactic measure Code(s): Z29.9 - ENCOUNTER FOR PROPHYLACTIC MEASURES, UNSPECIFIED (32) Pulmonary HTN Code(s): I27.2 - OTHER SECONDARY PULMONARY HYPERTENSION * DO NOT USE * (33) Splenic artery aneurysm Code(s): I72.8 - ANEURYSM OF OTHER SPECIFIED ARTERIES (34) Symptomatic anemia Code(s): D64.9 - ANEMIA, UNSPECIFIED (35) Systolic CHF Code(s): I50.20 - UNSPECIFIED SYSTOLIC (CONGESTIVE) HEART FAILURE Assessment/Plan 78 y/o male with past medical history of DM, CHF, Afib, Anemia. Patient presented to ER from [facility] for hematuria. Currently patient in NSR Plan; AGREE WITH HOLDING ELIPulsity. D/C ENTRESTO D/c Digoxin repeat ECHO cont Lasix and BB cleared from cardiac point of view for cysto/TURP
--- NOTE | 2019-09-09 14:43 | PN ---
Progress Note (short form) - Note Progress Note: Renal follow up for BEKA Seen and examined at the bedside no acute complaints making urine via thomas/CBI no sob, cp, abd pain Vital Signs Temperature 98.4 F 09/09/19 10:00 Pulse Rate 88 09/09/19 10:00 Respiratory Rate 18 09/09/19 10:00 Blood Pressure 132/59 L 09/09/19 10:00 O2 Sat by Pulse Oximetry (%) 99 09/09/19 08:20 Intake & Output 09/06/19 09/07/19 09/08/19 09/09/19 23:59 23:59 23:59 23:59 Intake Total 92940 56231 94682 2900 Output Total 30026 99459 79612 5300 Balance -725 -445 -5400 -2400 Weight 117.934 kg 99.79 kg 99.337 kg NAD awake and alert neck supple RRR CTA soft NT/ND no LE edema CBC, BMP 09/09/19 07:40 09/09/19 07:40 Current Medications Acetaminophen (Tylenol -) 650 mg PO Q6H PRN PRN Reason: PAIN SCALE 1-5 OR FEVER Last Admin: 09/07/19 05:32 Dose: 650 mg Acetaminophen (Tylenol -) 325 mg PO Q4H PRN PRN Reason: PAIN SCALE 6-10 Last Admin: 09/09/19 12:05 Dose: 325 mg Al Hydroxide/Mg Hydroxide (Mylanta Oral Suspension -) 30 ml PO Q6H PRN PRN Reason: DYSPEPSIA Last Admin: 09/09/19 12:07 Dose: 30 ml Albuterol/Ipratropium (Duoneb -) 1 amp NEB RQID [facility] Last Admin: 09/09/19 12:13 Dose: 1 amp Amlodipine Besylate (Norvasc -) 5 mg PO DAILY [facility] Last Admin: 09/09/19 09:39 Dose: 5 mg Apixaban (Eliquis -) 5 mg PO BID [facility] Last Admin: 09/09/19 09:39 Dose: 5 mg Aspirin (Ecotrin -) 81 mg PO DAILY [facility] Last Admin: 09/09/19 09:38 Dose: 81 mg Atorvastatin Calcium (Lipitor -) 40 mg PO HS [facility] Last Admin: 09/08/19 21:22 Dose: 40 mg Docusate Sodium (Colace -) 300 mg PO HS [facility] Last Admin: 09/08/19 21:21 Dose: 300 mg Fentanyl (Sublimaze Injection -) 50 mcg IVPUSH [id number] PRN PRN Reason: PAIN-PACU ORDER X 4 DOSES ONLY Last Admin: 09/05/19 16:00 Dose: 50 mcg Ferrous Sulfate (Feosol -) 325 mg PO BID [facility] Last Admin: 09/09/19 09:39 Dose: 325 mg Furosemide (Lasix -) 80 mg PO DAILY [facility] Last Admin: 09/09/19 09:38 Dose: 80 mg Gabapentin (Neurontin -) 300 mg PO TID [facility] Last Admin: 09/09/19 06:34 Dose: 300 mg Ceftriaxone Sodium 1 gm/ (Dextrose) 50 mls @ 200 mls/hr IVPB DAILY [facility]; Protocol Last Admin: 09/09/19 09:38 Dose: 200 mls/hr Lidocaine (Lidoderm Patch -) 1 patch TP DAILY [facility] Last Admin: 09/09/19 09:40 Dose: 1 patch Magnesium Hydroxide (Milk Of Magnesia -) 30 ml PO DAILY PRN PRN Reason: CONSTIPATION Last Admin: 09/09/19 09:37 Dose: 30 ml Melatonin (Melatonin) 3 mg PO [facility] Last Admin: 09/08/19 21:43 Dose: 3 mg Metoprolol Tartrate (Lopressor -) 25 mg PO BID [facility] Last Admin: 09/09/19 09:39 Dose: 25 mg Mineral Oil (Fleet Mineral Oil Rectal Enema -) 133 ml MS NOW PRN PRN Reason: CONSTIPATION Miscellaneous (Lidoderm Patch Removal) 1 each MC DAILY@2200 [facility] Last Admin: 09/08/19 21:24 Dose: 1 each Morphine Sulfate (Morphine Sulfate) 2 mg IVPUSH Q4H PRN PRN Reason: PAIN LEVEL 6-10 Last Admin: 09/07/19 15:39 Dose: 2 mg Multivitamins/Minerals/Vitamin C (Tab-A-Vit -) 1 tab PO DAILY [facility] Last Admin: 09/09/19 09:39 Dose: 1 tab Ondansetron HCl (Zofran Injection) 4 mg IVPUSH Q6H PRN PRN Reason: NAUSEA AND/OR VOMITING Last Admin: 09/05/19 16:45 Dose: 4 mg Oxycodone HCl (Roxicodone -) 5 mg PO Q4H PRN PRN Reason: PAIN SCALE 6-10 Last Admin: 09/09/19 12:06 Dose: 5 mg Phenazopyridine HCl (Pyridium -) 200 mg PO TID [facility] Last Admin: 09/09/19 06:34 Dose: 200 mg Polyethylene Glycol (Miralax (For Daily Use) -) 17 gm PO DAILY [facility] Last Admin: 09/09/19 09:39 Dose: 17 gm Potassium Chloride (K-Dur -) 40 meq PO DAILY [facility] Last Admin: 09/09/19 09:38 Dose: 40 meq Senna (Senna -) 2 tab PO HS PRN PRN Reason: CONSTIPATION Last Admin: 09/04/19 11:29 Dose: 2 tab Sitagliptin Phosphate (Januvia -) 25 mg PO DAILY@0700 [facility] Last Admin: 09/09/19 06:34 Dose: 25 mg Tamsulosin HCl (Flomax -) 0.4 mg PO DAILY@0830 [facility] Last Admin: 09/09/19 09:38 Dose: 0.4 mg 78 year old gentleman with history of CHF with reduced LVEF, Afib, Anemia and DM who presented from [place] with gross hematuria and found to have BEKA. 1. Acute kidney injury likely due to intravascular volume depletion (diuretics/ anemia) 2. Hematuria 3. CHF with reduced LVEF 4. Afib 5. Anemia Renal function is improved and stable Continue Lasix PO Daily and potassium supplementation trend renal function and electrolyte daily while inpatient, no overt electrolyte or acid base disturbance noted thus far off IVF, tolerating oral intake Renal/Bladder US w/o obstruction transfuse PRBC as per primary team urology follow up for CBI management, possible discontinuation tomorrow Renal function and electrolytes stable at this time. Will follow up as needed. Please call with any questions or concerns. Thank you Saul Diaz DO
[2019-09-09] MEDS: ATORVASTATIN CA 40 MG TABLET (FP) PO SCH (21:45)
[2019-09-09] MEDS: DOCUSATE SODIUM 100 MG CAPSULE (FP) PO SCH (21:45)
[2019-09-09] MEDS: MELATONIN 1 MG TABLET PO SCH (21:45)
[2019-09-09] MEDS: LIDOCAINE PATCH REMOVAL MC SCH (22:14)
[2019-09-10] MEDS: PHENAZOPYRIDINE HCL 100 MG TABLET (FP) PO SCH ×3 (06:13→21:48)
[2019-09-10] MEDS: GABAPENTIN 300 MG CAPSULE (FP) PO SCH ×3 (06:13→21:47)
[2019-09-10] MEDS: ALBUTEROL SO4 2.5/IPRATROPIUM 0.5 INH SOL 3 ML VIAL.NEB. NEB SCH ×4 (08:00→19:53)
[2019-09-10] MEDS: TAMSULOSIN HCL 0.4 MG CAP PO SCH (08:49)
[2019-09-10 09:41] LABS: BASO % 0.6 % (0-2.0); EOS % 1.4 % (0-4.5); HEMOGLOBIN 7.4 GM/dL (11.7-16.9); LYMPH % 6.6 % (8-40); MEAN CELL VOLUME 93.7 fl (80-96); MEAN PLT VOLUME 7.5 fl (7.5-11.1); MONO % 2.9 % (3.8-10.2); NEUT % 88.5 % (42.8-82.8); PLATELET COUNT 406 K/MM3 (134-434); RBC 2.46 M/mm3 (4.00-5.60); RDW 17.4 % (11.9-15.9); WHITE BLOOD COUNT 16.9 K/mm3 (4.0-10.0)
[2019-09-10] MEDS ORDERED: DEXTROSE 5%-WATER - 50 ML IVPB ONE (10:00)
[2019-09-10] MEDS ORDERED: cefTRIAXone SODIUM 1 GM VIAL ONE (10:00)
[2019-09-10] MEDS: CEFTRIAXONE 1 GM in DEXTROSE 5%-WATER - 50 ML IVPB SCH (10:30)
[2019-09-10] MEDS ORDERED: PT OWN MED DRAWER 7, Y5N ONE ×2 (11:16→20:10)
[2019-09-10] MEDS: ASPIRIN COATED 81 MG TABLET.EC PO SCH (11:19)
[2019-09-10] MEDS: FERROUS SO4 325 MG TABLET (FP) PO SCH ×2 (11:19→21:48)
[2019-09-10] MEDS: METOPROLOL TARTRATE 25 MG TABLET (FP) PO SCH ×2 (11:19→21:48)
[2019-09-10] MEDS: APIXABAN 5 MG TABLET PO SCH ×2 (11:19→21:47)
[2019-09-10] MEDS: MULTIVITAMINS (DAILY MVI) TABLET (FP) PO SCH (11:19)
[2019-09-10] MEDS: FUROSEMIDE 40 MG TABLET (FP) PO SCH (11:19)
[2019-09-10] MEDS: amLODIPine BESYLATE 5 MG TABLET (FP) PO SCH (11:20)
[2019-09-10] MEDS: LIDOCAINE 5% TOPICAL PATCH TP SCH (11:20)
[2019-09-10] MEDS: POTASSIUM CHLORIDE TABS 20 MEQ TABLET.ER (FP) PO SCH (11:20)
[2019-09-10] MEDS: POLYETHYLENE GLYCOL 3350 119 GM BTL PO SCH (11:20)
--- NOTE | 2019-09-10 12:01 | PN ---
Progress Note, Physician Chief Complaint: Hematuria UTI BEKA History of Present Illness: Previous notes and events reviewed awake and alert NAD complain of SOB, denies chest pain or palpitations Hg 7.0 yesterday, received 1U PRBC transfusion and increase Hg 7.4 CBI ongoing - Current Medication List Current Medications: Active Medications Acetaminophen (Tylenol -) 650 mg PO Q6H PRN PRN Reason: PAIN SCALE 1-5 OR FEVER Last Admin: 09/07/19 05:32 Dose: 650 mg Acetaminophen (Tylenol -) 325 mg PO Q4H PRN PRN Reason: PAIN SCALE 6-10 Last Admin: 09/09/19 12:05 Dose: 325 mg Al Hydroxide/Mg Hydroxide (Mylanta Oral Suspension -) 30 ml PO Q6H PRN PRN Reason: DYSPEPSIA Last Admin: 09/09/19 12:07 Dose: 30 ml Albuterol/Ipratropium (Duoneb -) 1 amp NEB RQID [facility] Last Admin: 09/10/19 08:00 Dose: 1 amp Amlodipine Besylate (Norvasc -) 5 mg PO DAILY [facility] Last Admin: 09/10/19 11:20 Dose: 5 mg Apixaban (Eliquis -) 5 mg PO BID [facility] Last Admin: 09/10/19 11:19 Dose: 5 mg Aspirin (Ecotrin -) 81 mg PO DAILY [facility] Last Admin: 09/10/19 11:19 Dose: 81 mg Atorvastatin Calcium (Lipitor -) 40 mg PO HS [facility] Last Admin: 09/09/19 21:45 Dose: 40 mg Docusate Sodium (Colace -) 300 mg PO HS [facility] Last Admin: 09/09/19 21:45 Dose: 300 mg Fentanyl (Sublimaze Injection -) 50 mcg IVPUSH [id number] PRN PRN Reason: PAIN-PACU ORDER X 4 DOSES ONLY Last Admin: 09/05/19 16:00 Dose: 50 mcg Ferrous Sulfate (Feosol -) 325 mg PO BID [facility] Last Admin: 09/10/19 11:19 Dose: 325 mg Furosemide (Lasix -) 80 mg PO DAILY [facility] Last Admin: 09/10/19 11:19 Dose: 80 mg Gabapentin (Neurontin -) 300 mg PO TID [facility] Last Admin: 09/10/19 06:13 Dose: 300 mg Ceftriaxone Sodium 1 gm/ (Dextrose) 50 mls @ 200 mls/hr IVPB DAILY [facility]; Protocol Last Admin: 09/10/19 10:30 Dose: 200 mls/hr Lidocaine (Lidoderm Patch -) 1 patch TP DAILY [facility] Last Admin: 09/10/19 11:20 Dose: 1 patch Magnesium Hydroxide (Milk Of Magnesia -) 30 ml PO DAILY PRN PRN Reason: CONSTIPATION Last Admin: 09/09/19 09:37 Dose: 30 ml Melatonin (Melatonin) 3 mg PO HS [facility] Last Admin: 09/09/19 21:45 Dose: 3 mg Metoprolol Tartrate (Lopressor -) 25 mg PO BID [facility] Last Admin: 09/10/19 11:19 Dose: 25 mg Mineral Oil (Fleet Mineral Oil Rectal Enema -) 133 ml OK NOW PRN PRN Reason: CONSTIPATION Miscellaneous (Lidoderm Patch Removal) 1 each MC DAILY@2200 [facility] Last Admin: 09/09/19 22:14 Dose: 1 each Morphine Sulfate (Morphine Sulfate) 2 mg IVPUSH Q4H PRN PRN Reason: PAIN LEVEL 6-10 Last Admin: 09/07/19 15:39 Dose: 2 mg Multivitamins/Minerals/Vitamin C (Tab-A-Vit -) 1 tab PO DAILY [facility] Last Admin: 09/10/19 11:19 Dose: 1 tab Ondansetron HCl (Zofran Injection) 4 mg IVPUSH Q6H PRN PRN Reason: NAUSEA AND/OR VOMITING Last Admin: 09/05/19 16:45 Dose: 4 mg Oxycodone HCl (Roxicodone -) 5 mg PO Q4H PRN PRN Reason: PAIN SCALE 6-10 Last Admin: 09/09/19 12:06 Dose: 5 mg Phenazopyridine HCl (Pyridium -) 200 mg PO TID [facility] Last Admin: 09/10/19 06:13 Dose: 200 mg Polyethylene Glycol (Miralax (For Daily Use) -) 17 gm PO DAILY [facility] Last Admin: 09/10/19 11:20 Dose: 17 gm Potassium Chloride (K-Dur -) 40 meq PO DAILY [facility] Last Admin: 09/10/19 11:20 Dose: 40 meq Senna (Senna -) 2 tab PO HS PRN PRN Reason: CONSTIPATION Last Admin: 09/04/19 11:29 Dose: 2 tab Sitagliptin Phosphate (Januvia -) 25 mg PO DAILY@0700 [facility] Last Admin: 09/10/19 06:13 Dose: 25 mg Tamsulosin HCl (Flomax -) 0.4 mg PO DAILY@0830 [facility] Last Admin: 09/10/19 08:49 Dose: 0.4 mg - Objective Vital Signs: Vital Signs Temperature 99.5 F 09/10/19 10:52 Pulse Rate 82 09/10/19 10:52 Respiratory Rate 24 H 09/10/19 10:52 Blood Pressure 118/59 L 09/10/19 10:52 O2 Sat by Pulse Oximetry (%) 97 09/10/19 10:53 Constitutional: Yes: No Distress, Calm Eyes: Yes: Conjunctiva Clear HENT: Yes: Atraumatic Cardiovascular: Yes: Regular Rate and Rhythm Respiratory: Yes: Regular, On Nasal O2, Wheezes Gastrointestinal: Yes: Normal Bowel Sounds, Soft Genitourinary: Yes: Iqbal Present (CBI on going) Musculoskeletal: Yes: Muscle Weakness Extremities: Yes: WNL Edema: No Neurological: Yes: Alert, Oriented Psychiatric: Yes: Alert, Oriented Labs: CBC, BMP 09/10/19 08:15 09/09/19 07:40 INR, PTT INR 1.53 (0.83-1.09) H 08/31/19 12:31 Microbiology 08/31/19 20:00 Blood - Peripheral Venous Blood Culture - Final NO GROWTH AFTER 5 DAYS INCUBATION 08/31/19 20:00 Blood - Peripheral Venous Blood Culture - Final NO GROWTH AFTER 5 DAYS INCUBATION 08/31/19 12:39 Urine - Urine Iqbal Urine Culture - Final Proteus Mirabilis Problem List - Problems (1) Acute urinary retention Assessment/Plan: -Urology on board -FC with CBI -Tamsulosin Code(s): R33.8 - OTHER RETENTION OF URINE (2) Gross hematuria Assessment/Plan: -Urology on board -resolved -s/p Cystourethroscopy, TURP/TUVP -monitor Hg daily -Hg 7.4 Code(s): R31.0 - GROSS HEMATURIA (3) Abdominal discomfort Assessment/Plan: -Abdominal US reviewed Code(s): R10.9 - UNSPECIFIED ABDOMINAL PAIN (4) Anemia Assessment/Plan: -Hg 7.4 -monitor Hg daily -transfuse for Hg <7.0 -Ferrous Sulfate -Hematology on board -s/p 1U PRBC transfusion yesterday -will order 1U PRBC for transfusion due to Hg 7.4 Code(s): D64.9 - ANEMIA, UNSPECIFIED Qualifiers: Anemia type: iron deficiency (5) Atrial fibrillation Assessment/Plan: -Metoprolol -Eliquis held due to hematuria Code(s): I48.91 - UNSPECIFIED ATRIAL FIBRILLATION (6) BPH (benign prostatic hyperplasia) Assessment/Plan: -Tamsulosin -Urology consult Code(s): N40.0 - BENIGN PROSTATIC HYPERPLASIA WITHOUT LOWER URINRY TRACT SYMP (7) CHF (congestive heart failure) Assessment/Plan: -Furosemide -daily weights -strict I&O -fluid restriction Code(s): I50.9 - HEART FAILURE, UNSPECIFIED Qualifiers: Heart failure type: unspecified Heart failure chronicity: chronic Qualified Code(s): I50.9 - Heart failure, unspecified (8) Diabetes Assessment/Plan: -BG ACHS -ISS -HgA1c -Sitagliptan Code(s): E11.9 - TYPE 2 DIABETES MELLITUS WITHOUT COMPLICATIONS Qualifiers: Diabetes mellitus type: other specified (including TAN) Diabetes mellitus mcc insulin use: unspecified bed bug exterminator insulin use status Diabetes mellitus complication status: with other specified complication Qualified Code (s): E13.69 - Other specified diabetes mellitus with other specified complication (9) HLD (hyperlipidemia) Assessment/Plan: -Atorvastatin Code(s): E78.5 - HYPERLIPIDEMIA, UNSPECIFIED (10) Hypertension Assessment/Plan: -Amlodipine, Imdur Code(s): I10 - ESSENTIAL (PRIMARY) HYPERTENSION Qualifiers: Hypertension type: unspecified Qualified Code(s): I10 - Essential (primary ) hypertension (11) BEKA (acute kidney injury) Assessment/Plan: -renal on board -BUN/Cr 18.6/1.1 -monitor renal function Code(s): N17.9 - ACUTE KIDNEY FAILURE, UNSPECIFIED (12) Leukocytosis Assessment/Plan: -ID consult -WBC 16.9 -UA shows 3+ leuks, 3+ bilirubin, 3+ protein, 2+ ketones, 3+ blood -UC positive -afebrile -Ceftriaxone Code(s): D72.829 - ELEVATED WHITE BLOOD CELL COUNT, UNSPECIFIED (13) UTI (urinary tract infection) Assessment/Plan: -ID consult -WBC 16.9 -UA shows 3+ leuks, 3+ bilirubin, 3+ protein, 2+ ketones, 3+ blood -UC positive -afebrile -Ceftriaxone Code(s): N39.0 - URINARY TRACT INFECTION, SITE NOT SPECIFIED Assessment/Plan see problem list SCDs
--- NOTE | 2019-09-10 13:51 | CON.PULM ---
Consult Consult Specialty:: PULMONARY Referred by:: DANY Reason for Consultation:: SOB - History of Present Illness Chief Complaint: SOB History of Present Illness: Patient is a 78 y/o male with past medical history of DM, CHF, Afib, Anemia prostate ca,well known by our service. Patient presented to ER from [facility] for hematuria. Patient developed urinary retention, dysuria, and hematuria. Denies fever, chills but states having lower abdominal pain. Iqbal catheter was placed in ER and CBI started. Subsequently underwent TURP. We have been asked to evaluate sob . - History Source History Provided By: Patient, Medical Record Limitations to Obtaining History: Clinical Condition - Past Medical History TAKER OFF BRAKER MACHINE: No: Dementia Cardio/Vascular: Yes: AFIB, CAD, CHF (low normal LVEF on 02/25 ECHO), HTN, Hyperlipdemia, Pulmonary Hypertension Pulmonary: Yes: COPD, O2 Dependent, Other (pulmonary htn) Gastrointestinal: No: Ascites Hepatobiliary: No: Cirrhosis Renal/: Yes: BPH, Other (prostate ca) Heme/Onc: Yes: Anemia Infectious Disease: No: AIDS Psych: No: Addictions Endocrine: Yes: Diabetes Mellitus - Past Surgical History Past Surgical History: Yes: Stent - Alcohol/Substance Use Hx Alcohol Use: No History of Substance Use: reports: None - Smoking History Smoking history: Never smoked Have you smoked in the past 12 months: No Aproximately how many cigarettes per day: 0 - Social History Usual Living Arrangement: With Spouse ADL: Independent History of Recent Travel: No Home Medications - Allergies Allergies/Adverse Reactions: Allergies Allergy/AdvReac Type Severity Reaction Status Date / Time No Known Allergies Allergy Verified 08/31/19 10:49 - Home Medications Home Medications: Ambulatory Orders Alendronate Na [Fosamax (Weekly)] 70 mg PO WEEKLY 01/29/17 Atorvastatin Calcium 40 mg PO DAILY 01/29/17 Isosorbide Mononitrate [Imdur -] 60 mg PO DAILY 01/29/17 Sacubitril/Valsartan [Entresto 24 mg-26 mg Tablet] 1 tab PO BID 01/29/17 Aspirin Coated [Ecotrin -] 81 mg PO DAILY tablet.ec 11/05/17 Amlodipine Besylate 5 mg PO DAILY 05/04/18 Acetaminophen [Tylenol .Regular Strength -] 650 mg PO Q6H PRN tablet 03/07/19 Apixaban [Eliquis -] 5 mg PO BID tablet 03/07/19 Furosemide [Lasix -] 80 mg PO DAILY tablet 03/07/19 Insulin Sliding Scale [Novolog Vial Sliding Scale -] 1 vial SQ ACHS units 03/07 Potassium Chloride [K-Dur -] 40 meq PO DAILY tablet.er 03/07/19 Docusate Sodium [Colace] 300 mg PO HS 06/23/19 Dulcolax 10 mg FL DAILY PRN 06/23/19 Gabapentin 300 mg PO TID 06/23/19 Insulin Glargine,Hum.rec.anlog [Basaglar Kwikpen U-100] 20 unit SQ DAILY Iprat-Albut 0.5-3(2.5) mg/3 ml 3 ml NEB QID 06/23/19 Metolazone 2.5 mg PO ASDIR 06/23/19 Milk of Magnesia 5 5ml PO DAILY PRN 06/23/19 Oxycodone-Acetaminophen 10-325 10 mg PO Q8H PRN 06/23/19 Polyethylene Glycol 3350 [Miralax 119 gm Btl -] 17 gm PO DAILY 06/23/19 Tamsulosin HCl [Flomax] 0.4 mg PO DAILY 06/23/19 Zinc Oxide 20% Topical Oint 1 appful DAILY PRN 06/23/19 Lidocaine 5% Patch [Lidoderm -] 1 patch TP DAILY patch 07/01/19 Digoxin [Lanoxin -] 125 mcg PO DAILY 08/31/19 Mag Hydrox/Al Hydrox/Simeth [Mylanta Oral Suspension -] 30 ml PO QID 08/31/19 Melatonin 3 mg PO HS 08/31/19 Metoprolol Tartrate 25 mg PO BID 08/31/19 Multivitamin [Multiple Vitamins] 1 each PO DAILY 08/31/19 Family Medical History Family History: Unremarkable Review of Systems - Review of Systems Constitutional: reports: Fever, Lethargy, Loss of Appetite, Malaise Eyes: denies: Blurred Vision HENT: denies: Ear Discharge Neck: denies: Lumps Cardiovascular: denies: Edema Respiratory: reports: Exercise Intolerance, SOB. denies: Hemoptysis, Orthopnea Gastrointestinal: denies: Abdominal Pain Genitourinary: reports: Burning Physical Exam Vital Sings: Vital Signs Temperature 98.2 F 09/10/19 13:18 Pulse Rate 81 09/10/19 13:18 Respiratory Rate 24 H 09/10/19 13:18 Blood Pressure 114/44 L 09/10/19 13:18 O2 Sat by Pulse Oximetry (%) 97 09/10/19 10:53 Constitutional: Yes: Mild Distress Eyes: Yes: EOM Intact HENT: Yes: Normocephalic Neck: Yes: Trachea Midline Cardiovascular: Yes: Regular Rate and Rhythm Respiratory: Yes: Diminished Gastrointestinal: Yes: Abdomen, Obese Edema: No Integumentary: Yes: WNL Neurological: Yes: WNL Psychiatric: Yes: WNL Labs: CBC, BMP 09/10/19 08:15 09/09/19 07:40 rest reviewed Imaging - Results Chest X-ray: Report Reviewed, Image Reviewed Problem List - Problems (1) Acute urinary retention Code(s): R33.8 - OTHER RETENTION OF URINE (2) Gross hematuria Code(s): R31.0 - GROSS HEMATURIA (3) Anemia Code(s): D64.9 - ANEMIA, UNSPECIFIED Qualifiers: Anemia type: iron deficiency (4) BPH (benign prostatic hyperplasia) Code(s): N40.0 - BENIGN PROSTATIC HYPERPLASIA WITHOUT LOWER URINRY TRACT SYMP (5) Depression Code(s): F32.9 - MAJOR DEPRESSIVE DISORDER, SINGLE EPISODE, UNSPECIFIED (6) Diabetes Code(s): E11.9 - TYPE 2 DIABETES MELLITUS WITHOUT COMPLICATIONS Qualifiers: Diabetes mellitus type: other specified (including TAN) Diabetes mellitus chcf insulin use: unspecified chcf insulin use status Diabetes mellitus complication status: with other specified complication Qualified Code (s): E13.69 - Other specified diabetes mellitus with other specified complication Assessment/Plan ANEMIA IS CONTRIBUTING TO DYSPNEA WOULD TRANSFUSE TO 8GMS OR ABOVE CONTINUE O2/BRONCHODILATORS/ANTIBIOTICS/ANTICOAGULATION CBI PER UROLOGY WILL FOLLOW Fabio LEWIS MD
[2019-09-10 15:01] LABS: ANISOCYTOSIS 2+; MACROCYTOSIS 1+; PLATELET ESTIMATE NORMAL; TEAR DROP CELLS 1+
--- NOTE | 2019-09-10 16:35 | PN ---
Progress Note (short form) - Note Progress Note: Labs reviewed On asa/eliquis/feosol IRon saturation low B12 /folate/TSH--nl IGG k monoclonal protein --check SFLCA CT pelvis shows -- lytic/sclerotic changes in sacrum and pelvis. ? Pagets Will check bone scan
[2019-09-10] MEDS: DOCUSATE SODIUM 100 MG CAPSULE (FP) PO SCH (21:48)
[2019-09-10] MEDS: ATORVASTATIN CA 40 MG TABLET (FP) PO SCH (21:48)
[2019-09-10] MEDS: MELATONIN 1 MG TABLET PO SCH (21:48)
[2019-09-10] MEDS: LIDOCAINE PATCH REMOVAL MC SCH (23:15)
[2019-09-11] MEDS: ACETAMINOPHEN 325 MG TABLET (FP) PO PRN (00:30)
[2019-09-11] MEDS ORDERED: oxyCODONE HCL 5 MG TABLET PO PRN (01:16)
[2019-09-11] MEDS: GABAPENTIN 300 MG CAPSULE (FP) PO SCH ×3 (06:15→22:59)
[2019-09-11] MEDS: PHENAZOPYRIDINE HCL 100 MG TABLET (FP) PO SCH ×3 (06:15→22:59)
[2019-09-11] MEDS: ALBUTEROL SO4 2.5/IPRATROPIUM 0.5 INH SOL 3 ML VIAL.NEB. NEB SCH ×4 (07:15→19:59)
[2019-09-11 07:45] LABS: HEMATOCRIT 24.7 % (35.4-49); MCHC 32.5 g/dl (32.0-35.9); MEAN CELL VOLUME 92.3 fl (80-96); MEAN PLT VOLUME 7.5 fl (7.5-11.1); PLATELET COUNT 417 K/MM3 (134-434); RBC 2.68 M/mm3 (4.00-5.60); RDW 18.6 % (11.9-15.9); WHITE BLOOD COUNT 16.2 K/mm3 (4.0-10.0)
[2019-09-11 08:03] LABS: ALBUMIN 2.5 g/dl (3.4-5.0); BILIRUBIN,TOTAL 0.8 mg/dL (0.2-1); BLOOD UREA NITROGEN 17.6 mg/dL (7-18); POTASSIUM 4.3 mmol/L (3.5-5.1); TOT PROT 5.7 g/dl (6.4-8.2)
[2019-09-11] MEDS: TAMSULOSIN HCL 0.4 MG CAP PO SCH (08:37)
[2019-09-11] MEDS ORDERED: AZITHROMYCIN 250 MG TABLET PO ONE (10:45)
--- NOTE | 2019-09-11 10:56 | PN ---
Progress Note, Physician Chief Complaint: AWAKE ALERT FEELS SOB LETHARGIC DENIES CHEST PAIN EVENTS AND NOTES REVIEWED - Current Medication List Current Medications: Active Medications Acetaminophen (Tylenol -) 650 mg PO Q6H PRN PRN Reason: PAIN SCALE 1-5 OR FEVER Last Admin: 09/11/19 00:30 Dose: 650 mg Acetaminophen (Tylenol -) 325 mg PO Q4H PRN PRN Reason: PAIN SCALE 6-10 Last Admin: 09/09/19 12:05 Dose: 325 mg Al Hydroxide/Mg Hydroxide (Mylanta Oral Suspension -) 30 ml PO Q6H PRN PRN Reason: DYSPEPSIA Last Admin: 09/09/19 12:07 Dose: 30 ml Albuterol/Ipratropium (Duoneb -) 1 amp NEB RQID [facility] Last Admin: 09/11/19 07:15 Dose: 1 amp Amlodipine Besylate (Norvasc -) 5 mg PO DAILY [facility] Last Admin: 09/10/19 11:20 Dose: 5 mg Apixaban (Eliquis -) 5 mg PO BID [facility] Last Admin: 09/10/19 21:47 Dose: 5 mg Aspirin (Ecotrin -) 81 mg PO DAILY [facility] Last Admin: 09/10/19 11:19 Dose: 81 mg Atorvastatin Calcium (Lipitor -) 40 mg PO HS [facility] Last Admin: 09/10/19 21:48 Dose: 40 mg Azithromycin (Zithromax -) 500 mg PO ONCE ONE Stop: 09/11/19 10:46 Azithromycin (Zithromax -) 250 mg PO DAILY [facility] Docusate Sodium (Colace -) 300 mg PO HS [facility] Last Admin: 09/10/19 21:48 Dose: 300 mg Fentanyl (Sublimaze Injection -) 50 mcg IVPUSH [id number] PRN PRN Reason: PAIN-PACU ORDER X 4 DOSES ONLY Last Admin: 09/05/19 16:00 Dose: 50 mcg Ferrous Sulfate (Feosol -) 325 mg PO BID [facility] Last Admin: 09/10/19 21:48 Dose: 325 mg Furosemide (Lasix Injection -) 40 mg IVPUSH BID@0600,1400 [facility] Gabapentin (Neurontin -) 300 mg PO TID [facility] Last Admin: 09/11/19 06:15 Dose: 300 mg Ceftriaxone Sodium 1 gm/ (Dextrose) 50 mls @ 200 mls/hr IVPB DAILY [facility]; Protocol Last Admin: 09/10/19 10:30 Dose: 200 mls/hr Ferric Carboxymaltose 750 mg/ (Sodium Chloride) 265 mls @ 530 mls/hr IVPB ONCE ONE Stop: 09/11/19 11:18 Lidocaine (Lidoderm Patch -) 1 patch TP DAILY [facility] Last Admin: 09/10/19 11:20 Dose: 1 patch Magnesium Hydroxide (Milk Of Magnesia -) 30 ml PO DAILY PRN PRN Reason: CONSTIPATION Last Admin: 09/09/19 09:37 Dose: 30 ml Melatonin (Melatonin) 3 mg PO HS [facility] Last Admin: 09/10/19 21:48 Dose: 3 mg Metoprolol Tartrate (Lopressor -) 25 mg PO BID [facility] Last Admin: 09/10/19 21:48 Dose: 25 mg Mineral Oil (Fleet Mineral Oil Rectal Enema -) 133 ml HI NOW PRN PRN Reason: CONSTIPATION Miscellaneous (Lidoderm Patch Removal) 1 each MC DAILY@2200 [facility] Last Admin: 09/10/19 23:15 Dose: 1 each Multivitamins/Minerals/Vitamin C (Tab-A-Vit -) 1 tab PO DAILY [facility] Last Admin: 09/10/19 11:19 Dose: 1 tab Ondansetron HCl (Zofran Injection) 4 mg IVPUSH Q6H PRN PRN Reason: NAUSEA AND/OR VOMITING Last Admin: 09/05/19 16:45 Dose: 4 mg Oxycodone HCl (Roxicodone -) 5 mg PO Q4H PRN PRN Reason: PAIN LEVEL 6-10 Phenazopyridine HCl (Pyridium -) 200 mg PO TID [facility] Last Admin: 09/11/19 06:15 Dose: 200 mg Polyethylene Glycol (Miralax (For Daily Use) -) 17 gm PO DAILY [facility] Last Admin: 09/10/19 11:20 Dose: 17 gm Potassium Chloride (K-Dur -) 40 meq PO DAILY [facility] Last Admin: 09/10/19 11:20 Dose: 40 meq Senna (Senna -) 2 tab PO HS PRN PRN Reason: CONSTIPATION Last Admin: 09/04/19 11:29 Dose: 2 tab Sitagliptin Phosphate (Januvia -) 25 mg PO DAILY@0700 [facility] Last Admin: 09/11/19 06:15 Dose: 25 mg Tamsulosin HCl (Flomax -) 0.4 mg PO DAILY@0830 [facility] Last Admin: 09/11/19 08:37 Dose: 0.4 mg - Objective Vital Signs: Vital Signs Temperature 98.7 F 09/11/19 10:24 Pulse Rate 76 09/11/19 10:24 Respiratory Rate 24 H 09/11/19 10:24 Blood Pressure 120/68 09/11/19 10:24 O2 Sat by Pulse Oximetry (%) 97 09/11/19 00:00 Constitutional: Yes: Mild Distress Cardiovascular: Yes: Pulse Irregular Respiratory: Yes: Diminished, On Nasal O2, Rhonchi Gastrointestinal: Yes: Soft Genitourinary: Yes: [place]on Present, Hematuria Musculoskeletal: Yes: Muscle Weakness Edema: Yes Edema: LLE: Trace, RLE: Trace Peripheral Pulses WNL: Yes Neurological: Yes: Pre-Existing Deficit, Weakness ...Motor Strength: LLE, RLE Psychiatric: Yes: WNL Labs: CBC, BMP 09/11/19 06:50 09/11/19 06:50 INR, PTT INR 1.53 (0.83-1.09) H 08/31/19 12:31 Problem List - Problems (1) Acute urinary retention Code(s): R33.8 - OTHER RETENTION OF URINE (2) Gross hematuria Code(s): R31.0 - GROSS HEMATURIA (3) Renal dysfunction Code(s): N28.9 - DISORDER OF KIDNEY AND URETER, UNSPECIFIED (4) UTI (urinary tract infection) Code(s): N39.0 - URINARY TRACT INFECTION, SITE NOT SPECIFIED (5) Anemia Code(s): D64.9 - ANEMIA, UNSPECIFIED Qualifiers: Anemia type: iron deficiency (6) Atrial fibrillation Code(s): I48.91 - UNSPECIFIED ATRIAL FIBRILLATION (7) BPH (benign prostatic hyperplasia) Code(s): N40.0 - BENIGN PROSTATIC HYPERPLASIA WITHOUT LOWER URINRY TRACT SYMP (8) Chronic combined systolic and diastolic CHF, NYHA class 4 Code(s): I50.42 - CHRONIC COMBINED SYSTOLIC AND DIASTOLIC HRT FAIL (9) Diabetes Code(s): E11.9 - TYPE 2 DIABETES MELLITUS WITHOUT COMPLICATIONS Qualifiers: Diabetes mellitus type: other specified (including TAN) Diabetes mellitus jail insulin use: unspecified long term acute care registered nurse insulin use status Diabetes mellitus complication status: with other specified complication Qualified Code (s): E13.69 - Other specified diabetes mellitus with other specified complication (10) Dyspnea Code(s): R06.00 - DYSPNEA, UNSPECIFIED Qualifiers: Dyspnea type: unspecified Qualified Code(s): R06.00 - Dyspnea, unspecified (11) HLD (hyperlipidemia) Code(s): E78.5 - HYPERLIPIDEMIA, UNSPECIFIED (12) Hypertension Code(s): I10 - ESSENTIAL (PRIMARY) HYPERTENSION Qualifiers: Hypertension type: unspecified Qualified Code(s): I10 - Essential (primary ) hypertension (13) Symptomatic anemia Code(s): D64.9 - ANEMIA, UNSPECIFIED Assessment/Plan CXR REVIEWED + CHF/PNA ADD LASIX 40MG IV BID ON CEFTRIAXONE WILL ADD AZITHROMYCIN NEBS OOB TO CHAIR WITH PT INCENTIVE SPIROMETRY DAILY WEIGHT, SPULM/CARDIO WORKUP ADD BNP LEVEL ANEMIA WORKUP S/P PRBC TRANSFUSION IRON 750MG INJECTOFER X 1 UROLOGY TO RETURN FOR URINE RETENTION MONSON IN PLACE ON AC
[2019-09-11] MEDS ORDERED: FERRIC CARBOXYMALTOSE 750 MG in SODIUM CHLORIDE 250 ML IVPB ONE (11:15)
[2019-09-11] MEDS ORDERED: DEXTROSE 5%-WATER - 50 ML IVPB ONE (11:24)
[2019-09-11] MEDS ORDERED: cefTRIAXone SODIUM 1 GM VIAL ONE (11:24)
[2019-09-11] MEDS: FUROSEMIDE 40 MG TABLET (FP) PO SCH (11:27)
[2019-09-11] MEDS: LIDOCAINE 5% TOPICAL PATCH TP SCH (11:29)
[2019-09-11] MEDS: POTASSIUM CHLORIDE TABS 20 MEQ TABLET.ER (FP) PO SCH (11:32)
[2019-09-11] MEDS: FUROSEMIDE 40 MG/4 ML INJECTABLE VIAL IVPUSH SCH (11:32)
[2019-09-11] MEDS: CEFTRIAXONE 1 GM in DEXTROSE 5%-WATER - 50 ML IVPB SCH (11:33)
[2019-09-11] MEDS: METOPROLOL TARTRATE 25 MG TABLET (FP) PO SCH ×2 (11:33→22:59)
[2019-09-11] MEDS: FERROUS SO4 325 MG TABLET (FP) PO SCH ×2 (11:33→22:59)
[2019-09-11] MEDS: ASPIRIN COATED 81 MG TABLET.EC PO SCH (11:33)
[2019-09-11] MEDS: APIXABAN 5 MG TABLET PO SCH ×2 (11:33→23:00)
[2019-09-11] MEDS: MULTIVITAMINS (DAILY MVI) TABLET (FP) PO SCH (11:33)
[2019-09-11] MEDS: amLODIPine BESYLATE 5 MG TABLET (FP) PO SCH (11:33)
[2019-09-11] MEDS: POLYETHYLENE GLYCOL 3350 119 GM BTL PO SCH (11:36)
[2019-09-11 12:37] LABS: N-TERMINAL BNP 2704.8 pg/ml (5-450)
--- NOTE | 2019-09-11 12:53 | PN ---
Progress Note (short form) - Note Progress Note: PULMONARY COMPLAINING OF INCREASED SOB AFEBRILE ANICTERIC DIMINISHED BREATH SOUNDS LEFT BASE S1S2 BS+ OBESE MILD EDEMA LOWER EXT LABS/MEDS/NOTES/IMAGES REVIEWED Problem List - Problems (1) Acute urinary retention Code(s): R33.8 - OTHER RETENTION OF URINE (2) Gross hematuria Code(s): R31.0 - GROSS HEMATURIA (3) Anemia Code(s): D64.9 - ANEMIA, UNSPECIFIED Qualifiers: Anemia type: iron deficiency (4) BPH (benign prostatic hyperplasia) Code(s): N40.0 - BENIGN PROSTATIC HYPERPLASIA WITHOUT LOWER URINRY TRACT SYMP (5) Depression Code(s): F32.9 - MAJOR DEPRESSIVE DISORDER, SINGLE EPISODE, UNSPECIFIED (6) Diabetes Code(s): E11.9 - TYPE 2 DIABETES MELLITUS WITHOUT COMPLICATIONS Qualifiers: Diabetes mellitus type: other specified (including TAN) Diabetes mellitus roasterman insulin use: unspecified snf insulin use status Diabetes mellitus complication status: with other specified complication Qualified Code (s): E13.69 - Other specified diabetes mellitus with other specified complication Assessment/Plan CONGESTIVE CHANGES/LLL PROCESS CHEST ANEMIA ALSO CONTRIBUTING TO DYSPNEA KEEP 8GMS OR ABOVE CONTINUE O2/BRONCHODILATORS/ANTIBIOTICS/ANTICOAGULATION CBI PER UROLOGY AGREE WITH PMD KEITH JUSTICE/MARYLIN LEWIS MD Problem List - Problems (1) Acute urinary retention Code(s): R33.8 - OTHER RETENTION OF URINE (2) Gross hematuria Code(s): R31.0 - GROSS HEMATURIA (3) Anemia Code(s): D64.9 - ANEMIA, UNSPECIFIED Qualifiers: Anemia type: iron deficiency (4) BPH (benign prostatic hyperplasia) Code(s): N40.0 - BENIGN PROSTATIC HYPERPLASIA WITHOUT LOWER URINRY TRACT SYMP (5) Depression Code(s): F32.9 - MAJOR DEPRESSIVE DISORDER, SINGLE EPISODE, UNSPECIFIED (6) Diabetes Code(s): E11.9 - TYPE 2 DIABETES MELLITUS WITHOUT COMPLICATIONS Qualifiers: Diabetes mellitus type: other specified (including TAN) Diabetes mellitus roasterman insulin use: unspecified snf insulin use status Diabetes mellitus complication status: with other specified complication Qualified Code (s): E13.69 - Other specified diabetes mellitus with other specified complication
[2019-09-11] MEDS ORDERED: PT OWN MED DRAWER 7, Y5N ONE ×3 (13:04→22:24)
[2019-09-11] MEDS ORDERED: FUROSEMIDE 40 MG/4 ML INJECTABLE VIAL IVPUSH SCH ×2 (14:00)
[2019-09-11] MEDS ORDERED: FUROSEMIDE 40 MG/4 ML INJECTABLE VIAL IVPUSH ONE (14:44)
[2019-09-11 17:54] LABS: ALLENS TEST POSITIVE; ARTERIAL BLOOD GAS BASE EXCESS 7.3 meq/l (-2-2); ARTERIAL BLOOD GAS PCO2 50.6 mmHg (35-45); ARTERIAL BLOOD GAS PO2 67.2 mmHg (80-100); ARTERIAL BLOOD GAS pH 7.42 (7.35-7.45)
--- NOTE | 2019-09-11 18:17 | RAPID ---
Physical Examination Vital Signs: Vital Signs Temperature 98.7 F 09/11/19 15:00 Pulse Rate 87 09/11/19 15:00 Respiratory Rate 24 H 09/11/19 15:00 Blood Pressure 126/78 09/11/19 15:00 O2 Sat by Pulse Oximetry (%) 97 09/11/19 00:00 HR 88, BP 131/89, 99% on 2L NC Findings/Remarks: Rapid Response called for increase SOB. Patient endorsing no increased SOB. Denies CP, palpitations, cough. Constitutional: Yes: Well Nourished, No Distress, Calm Eyes: Yes: Other (pale conjunctiva). No: Sclera Icterus HENT: Yes: Atraumatic, Normocephalic Neck: Yes: Trachea Midline Cardiovascular: Yes: S1, S2. No: Tachycardia, Pulse Irregular Respiratory: Yes: On Nasal O2 (2L), Other (mild expiratory wheezes, mild crackles). No: Accessory Muscle Use, Cough Gastrointestinal: Yes: Soft. No: Distention Edema: No (no pitting edema of BLE) Neurological: Yes: Alert, Oriented (oriented to person, year, president) ...Motor Strength: WNL Psychiatric: No: Agitated Labs: CBC, BMP 09/11/19 06:50 09/11/19 06:50 Rapid Response - Rapid Response Assessment: likely 2/2 fluid overload Recommendations/Interventions: > CXR: neg for changes - lasix 40mg IVP x1 Primary Physician Notified: Kendy Grace
[2019-09-11] MEDS ORDERED: ACETAMINOPHEN 1000 MG/100 ML VIAL (NON FORMULARY) IVPB ONE (18:45)
[2019-09-11] MEDS: ATORVASTATIN CA 40 MG TABLET (FP) PO SCH (22:59)
[2019-09-11] MEDS: DOCUSATE SODIUM 100 MG CAPSULE (FP) PO SCH (22:59)
[2019-09-11] MEDS: LIDOCAINE PATCH REMOVAL MC SCH (23:00)
[2019-09-11] MEDS: MELATONIN 1 MG TABLET PO SCH (23:02)
[2019-09-12] MEDS: ACETAMINOPHEN 325 MG TABLET (FP) PO PRN (01:20)
[2019-09-12] MEDS ORDERED: PT OWN MED DRAWER 7, Y5N ONE ×4 (06:30→21:02)
[2019-09-12] MEDS: PHENAZOPYRIDINE HCL 100 MG TABLET (FP) PO SCH ×3 (06:35→21:37)
[2019-09-12] MEDS: GABAPENTIN 300 MG CAPSULE (FP) PO SCH ×3 (06:36→21:36)
[2019-09-12] MEDS: FUROSEMIDE 40 MG/4 ML INJECTABLE VIAL IVPUSH SCH ×2 (06:37→15:00)
[2019-09-12] MEDS: ALBUTEROL SO4 2.5/IPRATROPIUM 0.5 INH SOL 3 ML VIAL.NEB. NEB SCH ×2 (07:30→11:47)
--- NOTE | 2019-09-12 08:00 | PN ---
Progress Note, Physician History of Present Illness: The patient is a 78 year old male with history of diabetes, CHF, atrial fibrillation anemia who presents to the emergency department for evaluation of dysuria, hematuria, and urinary Retention since last night. Patient denies fever /chills/nausea/vomiting/melena.He comes from [facility] where a thomas was placed this morning. - Current Medication List Current Medications: Active Medications Acetaminophen (Tylenol -) 650 mg PO Q6H PRN PRN Reason: PAIN SCALE 1-5 OR FEVER Last Admin: 09/12/19 01:20 Dose: 650 mg Acetaminophen (Tylenol -) 325 mg PO Q4H PRN PRN Reason: PAIN SCALE 6-10 Last Admin: 09/09/19 12:05 Dose: 325 mg Al Hydroxide/Mg Hydroxide (Mylanta Oral Suspension -) 30 ml PO Q6H PRN PRN Reason: DYSPEPSIA Last Admin: 09/09/19 12:07 Dose: 30 ml Albuterol/Ipratropium (Duoneb -) 1 amp NEB RQID [facility] Last Admin: 09/11/19 19:59 Dose: 1 amp Amlodipine Besylate (Norvasc -) 5 mg PO DAILY [facility] Last Admin: 09/11/19 11:33 Dose: 5 mg Apixaban (Eliquis -) 5 mg PO BID [facility] Last Admin: 09/11/19 23:00 Dose: 5 mg Aspirin (Ecotrin -) 81 mg PO DAILY [facility] Last Admin: 09/11/19 11:33 Dose: 81 mg Atorvastatin Calcium (Lipitor -) 40 mg PO [facility] Last Admin: 09/11/19 22:59 Dose: 40 mg Azithromycin (Zithromax -) 250 mg PO DAILY [facility] Docusate Sodium (Colace -) 300 mg PO [facility] Last Admin: 09/11/19 22:59 Dose: 300 mg Fentanyl (Sublimaze Injection -) 50 mcg IVPUSH [id number] PRN PRN Reason: PAIN-PACU ORDER X 4 DOSES ONLY Last Admin: 09/05/19 16:00 Dose: 50 mcg Ferrous Sulfate (Feosol -) 325 mg PO BID [facility] Last Admin: 09/11/19 22:59 Dose: 325 mg Furosemide (Lasix Injection -) 40 mg IVPUSH BID@0600,1400 [facility] Last Admin: 09/12/19 06:37 Dose: 40 mg Gabapentin (Neurontin -) 300 mg PO TID [facility] Last Admin: 09/12/19 06:36 Dose: 300 mg Ceftriaxone Sodium 1 gm/ (Dextrose) 50 mls @ 200 mls/hr IVPB DAILY [facility]; Protocol Last Admin: 09/11/19 11:33 Dose: 200 mls/hr Lidocaine (Lidoderm Patch -) 1 patch TP DAILY [facility] Last Admin: 09/11/19 11:29 Dose: 1 patch Magnesium Hydroxide (Milk Of Magnesia -) 30 ml PO DAILY PRN PRN Reason: CONSTIPATION Last Admin: 09/09/19 09:37 Dose: 30 ml Melatonin (Melatonin) 3 mg PO HS [facility] Last Admin: 09/11/19 23:02 Dose: 3 mg Metoprolol Tartrate (Lopressor -) 25 mg PO BID [facility] Last Admin: 09/11/19 22:59 Dose: 25 mg Mineral Oil (Fleet Mineral Oil Rectal Enema -) 133 ml MA NOW PRN PRN Reason: CONSTIPATION Miscellaneous (Lidoderm Patch Removal) 1 each MC DAILY@2200 [facility] Last Admin: 09/11/19 23:00 Dose: 1 each Multivitamins/Minerals/Vitamin C (Tab-A-Vit -) 1 tab PO DAILY [facility] Last Admin: 09/11/19 11:33 Dose: 1 tab Ondansetron HCl (Zofran Injection) 4 mg IVPUSH Q6H PRN PRN Reason: NAUSEA AND/OR VOMITING Last Admin: 09/05/19 16:45 Dose: 4 mg Phenazopyridine HCl (Pyridium -) 200 mg PO TID [facility] Last Admin: 09/12/19 06:35 Dose: 200 mg Polyethylene Glycol (Miralax (For Daily Use) -) 17 gm PO DAILY [facility] Last Admin: 09/11/19 11:36 Dose: Not Given Potassium Chloride (K-Dur -) 40 meq PO DAILY [facility] Last Admin: 09/11/19 11:32 Dose: 40 meq Senna (Senna -) 2 tab PO HS PRN PRN Reason: CONSTIPATION Last Admin: 09/04/19 11:29 Dose: 2 tab Sitagliptin Phosphate (Januvia -) 25 mg PO DAILY@0700 [facility] Last Admin: 09/12/19 06:37 Dose: 25 mg Tamsulosin HCl (Flomax -) 0.4 mg PO DAILY@0830 [facility] Last Admin: 09/11/19 08:37 Dose: 0.4 mg - Objective Vital Signs: Vital Signs Temperature 98.7 F 09/12/19 06:00 Pulse Rate 74 09/12/19 06:00 Respiratory Rate 18 09/12/19 06:00 Blood Pressure 135/61 09/12/19 06:00 O2 Sat by Pulse Oximetry (%) 96 09/11/19 10:00 Eyes: Yes: WNL, Conjunctiva Clear, EOM Intact HENT: Yes: WNL, Atraumatic, Normocephalic Neck: Yes: WNL, Supple, Trachea Midline Cardiovascular: Yes: WNL, Regular Rate and Rhythm Respiratory: Yes: WNL, Regular, CTA Bilaterally Gastrointestinal: Yes: WNL, Normal Bowel Sounds Genitourinary: Yes: WNL Musculoskeletal: Yes: WNL Extremities: Yes: WNL Edema: No Integumentary: Yes: WNL Neurological: Yes: WNL, Alert, Oriented ...Motor Strength: WNL Psychiatric: Yes: WNL Labs: INR, PTT INR 1.53 (0.83-1.09) H 08/31/19 12:31 Problem List - Problems (1) BEKA (acute kidney injury) Code(s): N17.9 - ACUTE KIDNEY FAILURE, UNSPECIFIED (2) Acute urinary retention Code(s): R33.8 - OTHER RETENTION OF URINE (3) Gross hematuria Code(s): R31.0 - GROSS HEMATURIA (4) Leukocytosis Code(s): D72.829 - ELEVATED WHITE BLOOD CELL COUNT, UNSPECIFIED (5) Abdominal bloating Code(s): R14.0 - ABDOMINAL DISTENSION (GASEOUS) (6) Abdominal discomfort Code(s): R10.9 - UNSPECIFIED ABDOMINAL PAIN (7) Abnormal liver enzymes Code(s): R74.8 - ABNORMAL LEVELS OF OTHER SERUM ENZYMES (8) Acute respiratory failure with hypoxia and hypercapnia Code(s): J96.01 - ACUTE RESPIRATORY FAILURE WITH HYPOXIA; J96.02 - ACUTE RESPIRATORY FAILURE WITH HYPERCAPNIA (9) Anemia Code(s): D64.9 - ANEMIA, UNSPECIFIED Qualifiers: Anemia type: iron deficiency (10) Atrial fibrillation Code(s): I48.91 - UNSPECIFIED ATRIAL FIBRILLATION (11) BPH (benign prostatic hyperplasia) Code(s): N40.0 - BENIGN PROSTATIC HYPERPLASIA WITHOUT LOWER URINRY TRACT SYMP (12) CHF (congestive heart failure) Code(s): I50.9 - HEART FAILURE, UNSPECIFIED Qualifiers: Heart failure type: unspecified Heart failure chronicity: chronic Qualified Code(s): I50.9 - Heart failure, unspecified (13) Chronic combined systolic and diastolic CHF, NYHA class 4 Code(s): I50.42 - CHRONIC COMBINED SYSTOLIC AND DIASTOLIC HRT FAIL (14) Chronic hypoxemic respiratory failure Code(s): J96.11 - CHRONIC RESPIRATORY FAILURE WITH HYPOXIA (15) Depression Code(s): F32.9 - MAJOR DEPRESSIVE DISORDER, SINGLE EPISODE, UNSPECIFIED (16) Diabetes Code(s): E11.9 - TYPE 2 DIABETES MELLITUS WITHOUT COMPLICATIONS Qualifiers: Diabetes mellitus type: other specified (including TAN) Diabetes mellitus longwall headgate operator insulin use: unspecified longwall headgate operator insulin use status Diabetes mellitus complication status: with other specified complication Qualified Code (s): E13.69 - Other specified diabetes mellitus with other specified complication (17) Dyspnea Code(s): R06.00 - DYSPNEA, UNSPECIFIED Qualifiers: Dyspnea type: unspecified Qualified Code(s): R06.00 - Dyspnea, unspecified (18) Early satiety Code(s): R68.81 - EARLY SATIETY (19) Elevated troponin Code(s): R74.8 - ABNORMAL LEVELS OF OTHER SERUM ENZYMES (20) Extremity pain Code(s): M79.609 - PAIN IN UNSPECIFIED LIMB (21) Fall Code(s): W19.XXXA - UNSPECIFIED FALL, INITIAL ENCOUNTER (22) Gallstones Code(s): K80.20 - CALCULUS OF GALLBLADDER W/O CHOLECYSTITIS W/O OBSTRUCTION (23) HLD (hyperlipidemia) Code(s): E78.5 - HYPERLIPIDEMIA, UNSPECIFIED (24) Hypertension Code(s): I10 - ESSENTIAL (PRIMARY) HYPERTENSION Qualifiers: Hypertension type: unspecified Qualified Code(s): I10 - Essential (primary ) hypertension (25) Hypomagnesemia Code(s): E83.42 - HYPOMAGNESEMIA (26) Increased oxygen demand Code(s): R06.89 - OTHER ABNORMALITIES OF BREATHING (27) Morbid obesity Code(s): E66.01 - MORBID (SEVERE) OBESITY DUE TO EXCESS CALORIES (28) PSVT (paroxysmal supraventricular tachycardia) Code(s): I47.1 - SUPRAVENTRICULAR TACHYCARDIA (29) Paroxysmal A-fib Code(s): I48.0 - PAROXYSMAL ATRIAL FIBRILLATION (30) Pneumonia Code(s): J18.9 - PNEUMONIA, UNSPECIFIED ORGANISM (31) Prophylactic measure Code(s): Z29.9 - ENCOUNTER FOR PROPHYLACTIC MEASURES, UNSPECIFIED (32) Pulmonary HTN Code(s): I27.2 - OTHER SECONDARY PULMONARY HYPERTENSION * DO NOT USE * (33) Splenic artery aneurysm Code(s): I72.8 - ANEURYSM OF OTHER SPECIFIED ARTERIES (34) Symptomatic anemia Code(s): D64.9 - ANEMIA, UNSPECIFIED (35) Systolic CHF Code(s): I50.20 - UNSPECIFIED SYSTOLIC (CONGESTIVE) HEART FAILURE Assessment/Plan 78 y/o male with past medical history of DM, CHF, Afib, Anemia. Patient presented to ER from [facility] for hematuria. Currently patient in NSR Plan; AGREE WITH HOLDING [place]. D/C ENTRESTO D/c Digoxin repeat ECHO cont Kelsey and DEON
[2019-09-12 08:14] LABS: HEMATOCRIT 25.1 % (35.4-49); HEMOGLOBIN 8.1 GM/dL (11.7-16.9); MCH 29.9 pg (25.7-33.7); MCHC 32.1 g/dl (32.0-35.9); MEAN CELL VOLUME 93.2 fl (80-96); MEAN PLT VOLUME 7.3 fl (7.5-11.1); PLATELET COUNT 409 K/MM3 (134-434); RDW 18.4 % (11.9-15.9); WHITE BLOOD COUNT 13.7 K/mm3 (4.0-10.0)
[2019-09-12 08:27] LABS: BLOOD UREA NITROGEN 16.4 mg/dL (7-18); CREATININE 1.1 mg/dL (0.55-1.3); MAGNESIUM 1.8 mg/dL (1.8-2.4); PHOSPHOROUS 3.8 mg/dL (2.5-4.9); POTASSIUM 4.1 mmol/L (3.5-5.1)
[2019-09-12] MEDS ORDERED: cefTRIAXone SODIUM 1 GM VIAL ONE (09:24)
[2019-09-12] MEDS ORDERED: DEXTROSE 5%-WATER - 50 ML IVPB ONE (09:24)
[2019-09-12] MEDS: ASPIRIN COATED 81 MG TABLET.EC PO SCH (09:28)
[2019-09-12] MEDS: AZITHROMYCIN 250 MG TABLET PO SCH (09:28)
[2019-09-12] MEDS: METOPROLOL TARTRATE 25 MG TABLET (FP) PO SCH ×2 (09:28→21:36)
[2019-09-12] MEDS: APIXABAN 5 MG TABLET PO SCH ×2 (09:28→21:36)
[2019-09-12] MEDS: POTASSIUM CHLORIDE TABS 20 MEQ TABLET.ER (FP) PO SCH (09:28)
[2019-09-12] MEDS: amLODIPine BESYLATE 5 MG TABLET (FP) PO SCH (09:28)
[2019-09-12] MEDS: FERROUS SO4 325 MG TABLET (FP) PO SCH ×2 (09:28→21:36)
[2019-09-12] MEDS: TAMSULOSIN HCL 0.4 MG CAP PO SCH (09:28)
[2019-09-12] MEDS: MULTIVITAMINS (DAILY MVI) TABLET (FP) PO SCH (09:28)
[2019-09-12] MEDS: LIDOCAINE 5% TOPICAL PATCH TP SCH (09:28)
[2019-09-12] MEDS: CEFTRIAXONE 1 GM in DEXTROSE 5%-WATER - 50 ML IVPB SCH (09:29)
--- NOTE | 2019-09-12 10:41 | PN ---
Progress Note (short form) - Note Progress Note: PULMONARY States breathing is better with the increased lasix. No cough or wheezing. No fevers. Vital Signs Period Temp Pulse Resp BP Sys/[place] Pulse Ox Last 24 Hr 97.4 F-99.3 F 71-107 18-26 115-135/45-89 97 Intake & Output 09/10/19 09/11/19 09/11/19 09/12/19 00:59 00:59 23:59 23:59 Intake Total 2650 Output Total 2350 Balance 300 Gen: NAD at rest Heart: RRR Lung: decreased breath sounds at the bases Abd: soft, nontender Ext: trace edema CBC, BMP 09/12/19 07:05 09/12/19 07:05 Active Medications Acetaminophen (Tylenol -) 650 mg PO Q6H PRN PRN Reason: PAIN SCALE 1-5 OR FEVER Last Admin: 09/12/19 01:20 Dose: 650 mg Acetaminophen (Tylenol -) 325 mg PO Q4H PRN PRN Reason: PAIN SCALE 6-10 Last Admin: 09/09/19 12:05 Dose: 325 mg Al Hydroxide/Mg Hydroxide (Mylanta Oral Suspension -) 30 ml PO Q6H PRN PRN Reason: DYSPEPSIA Last Admin: 09/09/19 12:07 Dose: 30 ml Albuterol/Ipratropium (Duoneb -) 1 amp NEB RQID [facility] Last Admin: 09/12/19 07:30 Dose: 1 amp Amlodipine Besylate (Norvasc -) 5 mg PO DAILY [facility] Last Admin: 09/12/19 09:28 Dose: 5 mg Apixaban (Eliquis -) 5 mg PO BID [facility] Last Admin: 09/12/19 09:28 Dose: 5 mg Aspirin (Ecotrin -) 81 mg PO DAILY [facility] Last Admin: 09/12/19 09:28 Dose: 81 mg Atorvastatin Calcium (Lipitor -) 40 mg PO HS [facility] Last Admin: 09/11/19 22:59 Dose: 40 mg Azithromycin (Zithromax -) 250 mg PO DAILY [facility] Last Admin: 09/12/19 09:28 Dose: 250 mg Docusate Sodium (Colace -) 300 mg PO HS [facility] Last Admin: 09/11/19 22:59 Dose: 300 mg Fentanyl (Sublimaze Injection -) 50 mcg IVPUSH [id number] PRN PRN Reason: PAIN-PACU ORDER X 4 DOSES ONLY Last Admin: 09/05/19 16:00 Dose: 50 mcg Ferrous Sulfate (Feosol -) 325 mg PO BID [facility] Last Admin: 09/12/19 09:28 Dose: 325 mg Furosemide (Lasix Injection -) 40 mg IVPUSH BID@0600,1400 [facility] Last Admin: 09/12/19 06:37 Dose: 40 mg Gabapentin (Neurontin -) 300 mg PO TID [facility] Last Admin: 09/12/19 06:36 Dose: 300 mg Ceftriaxone Sodium 1 gm/ (Dextrose) 50 mls @ 200 mls/hr IVPB DAILY [facility]; Protocol Last Admin: 09/12/19 09:29 Dose: 200 mls/hr Lidocaine (Lidoderm Patch -) 1 patch TP DAILY [facility] Last Admin: 09/12/19 09:28 Dose: 1 patch Magnesium Hydroxide (Milk Of Magnesia -) 30 ml PO DAILY PRN PRN Reason: CONSTIPATION Last Admin: 09/09/19 09:37 Dose: 30 ml Melatonin (Melatonin) 3 mg PO HS [facility] Last Admin: 09/11/19 23:02 Dose: 3 mg Metoprolol Tartrate (Lopressor -) 25 mg PO BID [facility] Last Admin: 09/12/19 09:28 Dose: 25 mg Mineral Oil (Fleet Mineral Oil Rectal Enema -) 133 ml ME NOW PRN PRN Reason: CONSTIPATION Miscellaneous (Lidoderm Patch Removal) 1 each MC DAILY@2200 [facility] Last Admin: 09/11/19 23:00 Dose: 1 each Multivitamins/Minerals/Vitamin C (Tab-A-Vit -) 1 tab PO DAILY [facility] Last Admin: 09/12/19 09:28 Dose: 1 tab Ondansetron HCl (Zofran Injection) 4 mg IVPUSH Q6H PRN PRN Reason: NAUSEA AND/OR VOMITING Last Admin: 09/05/19 16:45 Dose: 4 mg Phenazopyridine HCl (Pyridium -) 200 mg PO TID [facility] Last Admin: 09/12/19 06:35 Dose: 200 mg Polyethylene Glycol (Miralax (For Daily Use) -) 17 gm PO DAILY [facility] Last Admin: 09/11/19 11:36 Dose: Not Given Potassium Chloride (K-Dur -) 40 meq PO DAILY [facility] Last Admin: 09/12/19 09:28 Dose: 40 meq Senna (Senna -) 2 tab PO HS PRN PRN Reason: CONSTIPATION Last Admin: 09/04/19 11:29 Dose: 2 tab Sitagliptin Phosphate (Januvia -) 25 mg PO DAILY@0700 [facility] Last Admin: 09/12/19 06:37 Dose: 25 mg Tamsulosin HCl (Flomax -) 0.4 mg PO DAILY@0830 [facility] Last Admin: 09/12/19 09:28 Dose: 0.4 mg A/P Acute on Chronic Diastolic Heart Failure Acute Kidney Injury Atrial Fibrillation BPH s/p Cystoscopy/TURP Hematuria UTI Anemia DM - continue lasix - monitor urine output, creatinine - daily weights - O2 to keep SpO2 >90% - rate control - continue anticoagulation - monitor H/H - complete antibiotics - DVT prophylaxis
[2019-09-12] MEDS: POLYETHYLENE GLYCOL 3350 119 GM BTL PO SCH (12:00)
--- NOTE | 2019-09-12 15:28 | PN ---
Progress Note, Physician Chief Complaint: CBI stopped this morning complaining of bladder pain on bipap says breathing is little better - Current Medication List Current Medications: Active Medications Acetaminophen (Tylenol -) 650 mg PO Q6H PRN PRN Reason: PAIN SCALE 1-5 OR FEVER Last Admin: 09/12/19 01:20 Dose: 650 mg Acetaminophen (Tylenol -) 325 mg PO Q4H PRN PRN Reason: PAIN SCALE 6-10 Last Admin: 09/09/19 12:05 Dose: 325 mg Al Hydroxide/Mg Hydroxide (Mylanta Oral Suspension -) 30 ml PO Q6H PRN PRN Reason: DYSPEPSIA Last Admin: 09/09/19 12:07 Dose: 30 ml Amlodipine Besylate (Norvasc -) 5 mg PO DAILY [facility] Last Admin: 09/12/19 09:28 Dose: 5 mg Apixaban (Eliquis -) 5 mg PO BID [facility] Last Admin: 09/12/19 09:28 Dose: 5 mg Aspirin (Ecotrin -) 81 mg PO DAILY [facility] Last Admin: 09/12/19 09:28 Dose: 81 mg Atorvastatin Calcium (Lipitor -) 40 mg PO HS [facility] Last Admin: 09/11/19 22:59 Dose: 40 mg Azithromycin (Zithromax -) 250 mg PO DAILY [facility] Last Admin: 09/12/19 09:28 Dose: 250 mg Docusate Sodium (Colace -) 300 mg PO HS [facility] Last Admin: 09/11/19 22:59 Dose: 300 mg Fentanyl (Sublimaze Injection -) 50 mcg IVPUSH [id number] PRN PRN Reason: PAIN-PACU ORDER X 4 DOSES ONLY Last Admin: 09/05/19 16:00 Dose: 50 mcg Ferrous Sulfate (Feosol -) 325 mg PO BID [facility] Last Admin: 09/12/19 09:28 Dose: 325 mg Furosemide (Lasix Injection -) 40 mg IVPUSH BID@0600,1400 [facility] Last Admin: 09/12/19 15:00 Dose: 40 mg Gabapentin (Neurontin -) 300 mg PO TID [facility] Last Admin: 09/12/19 15:00 Dose: 300 mg Ceftriaxone Sodium 1 gm/ (Dextrose) 50 mls @ 200 mls/hr IVPB DAILY [facility]; Protocol Last Admin: 09/12/19 09:29 Dose: 200 mls/hr Lidocaine (Lidoderm Patch -) 1 patch TP DAILY [facility] Last Admin: 09/12/19 09:28 Dose: 1 patch Magnesium Hydroxide (Milk Of Magnesia -) 30 ml PO DAILY PRN PRN Reason: CONSTIPATION Last Admin: 09/09/19 09:37 Dose: 30 ml Melatonin (Melatonin) 3 mg PO HS [facility] Last Admin: 09/11/19 23:02 Dose: 3 mg Metoprolol Tartrate (Lopressor -) 25 mg PO BID [facility] Last Admin: 09/12/19 09:28 Dose: 25 mg Mineral Oil (Fleet Mineral Oil Rectal Enema -) 133 ml [place] NOW PRN PRN Reason: CONSTIPATION Miscellaneous (Lidoderm Patch Removal) 1 each MC DAILY@2200 [facility] Last Admin: 09/11/19 23:00 Dose: 1 each Multivitamins/Minerals/Vitamin C (Tab-A-Vit -) 1 tab PO DAILY [facility] Last Admin: 09/12/19 09:28 Dose: 1 tab Ondansetron HCl (Zofran Injection) 4 mg IVPUSH Q6H PRN PRN Reason: NAUSEA AND/OR VOMITING Last Admin: 09/05/19 16:45 Dose: 4 mg Phenazopyridine HCl (Pyridium -) 200 mg PO TID [facility] Last Admin: 09/12/19 15:01 Dose: 200 mg Polyethylene Glycol (Miralax (For Daily Use) -) 17 gm PO DAILY [facility] Last Admin: 09/11/19 11:36 Dose: Not Given Potassium Chloride (K-Dur -) 40 meq PO DAILY [facility] Last Admin: 09/12/19 09:28 Dose: 40 meq Senna (Senna -) 2 tab PO HS PRN PRN Reason: CONSTIPATION Last Admin: 09/04/19 11:29 Dose: 2 tab Sitagliptin Phosphate (Januvia -) 25 mg PO DAILY@0700 [facility] Last Admin: 09/12/19 06:37 Dose: 25 mg Tamsulosin HCl (Flomax -) 0.4 mg PO DAILY@0830 [facility] Last Admin: 09/12/19 09:28 Dose: 0.4 mg - Objective Vital Signs: Vital Signs Temperature 99.3 F 09/12/19 09:05 Pulse Rate 86 09/12/19 14:58 Respiratory Rate 24 H 09/12/19 14:58 Blood Pressure 128/77 09/12/19 14:58 O2 Sat by Pulse Oximetry (%) 97 09/12/19 08:01 Constitutional: Yes: Calm Cardiovascular: Yes: Regular Rate and Rhythm, S1, S2 Respiratory: Yes: Diminished, On BiPap Gastrointestinal: Yes: Normal Bowel Sounds, Soft Genitourinary: Yes: Iqbal Present, Other (suprapubiuc pain) Labs: CBC, BMP 09/12/19 07:05 09/12/19 07:05 INR, PTT INR 1.53 (0.83-1.09) H 08/31/19 12:31 Problem List - Problems (1) Gross hematuria Assessment/Plan: Operative Date: 09/05/19 Pre-Operative Diagnosis: bph, aur, gross hematuria, h/o ca. prostate Operation: cysto, clot evacuation,turp/tuvp Findings: Trilobar prostate hypertrophy/trabeculated bladder grade 3/bladder clots CBI stopped today urology follow upnoted and trend h/h prbc with venofer last week Code(s): R31.0 - GROSS HEMATURIA (2) BEKA (acute kidney injury) Assessment/Plan: improved dc ivf Code(s): N17.9 - ACUTE KIDNEY FAILURE, UNSPECIFIED (3) UTI (urinary tract infection) Assessment/Plan: Microbiology 08/31/19 12:39 Urine - Urine Iqbal Urine Culture - Preliminary Proteus Species iv abx Code(s): N39.0 - URINARY TRACT INFECTION, SITE NOT SPECIFIED (4) Anemia Assessment/Plan: prbc and 2nd dose of venofer last week h/h is stable in 8 range heme on board UPEP and SPEP ordered Code(s): D64.9 - ANEMIA, UNSPECIFIED Qualifiers: Anemia type: iron deficiency (5) Diabetes Assessment/Plan: januvia bgm noted in range Code(s): E11.9 - TYPE 2 DIABETES MELLITUS WITHOUT COMPLICATIONS Qualifiers: Diabetes mellitus type: other specified (including TAN) Diabetes mellitus fpc insulin use: unspecified oil heaterman insulin use status Diabetes mellitus complication status: with other specified complication Qualified Code (s): E13.69 - Other specified diabetes mellitus with other specified complication (6) Shortness of breath Assessment/Plan: iv lasix bid and bipap Code(s): R06.02 - SHORTNESS OF BREATH
[2019-09-12] MEDS: MELATONIN 1 MG TABLET PO SCH (21:36)
[2019-09-12] MEDS: DOCUSATE SODIUM 100 MG CAPSULE (FP) PO SCH (21:36)
[2019-09-12] MEDS: ATORVASTATIN CA 40 MG TABLET (FP) PO SCH (21:36)
[2019-09-12] MEDS: LIDOCAINE PATCH REMOVAL MC SCH (21:37)
[2019-09-13] MEDS: ACETAMINOPHEN 325 MG TABLET (FP) PO PRN ×2 (00:30→13:04)
[2019-09-13] MEDS ORDERED: traZODone HCL 50 MG TABLET (FP) PO ONE (02:07)
[2019-09-13] MEDS: PHENAZOPYRIDINE HCL 100 MG TABLET (FP) PO SCH ×3 (06:29→21:08)
[2019-09-13] MEDS: GABAPENTIN 300 MG CAPSULE (FP) PO SCH ×3 (06:29→21:10)
[2019-09-13] MEDS: FUROSEMIDE 40 MG/4 ML INJECTABLE VIAL IVPUSH SCH (06:29)
[2019-09-13 08:09] LABS: BASO % 0.4 % (0-2.0); EOS % 2.2 % (0-4.5); HEMATOCRIT 25.3 % (35.4-49); HEMOGLOBIN 8.1 GM/dL (11.7-16.9); LYMPH % 7.3 % (8-40); MCH 29.7 pg (25.7-33.7); MCHC 31.9 g/dl (32.0-35.9); MEAN CELL VOLUME 93.1 fl (80-96); MEAN PLT VOLUME 7.4 fl (7.5-11.1); MONO % 3.9 % (3.8-10.2); NEUT % 86.2 % (42.8-82.8); PLATELET COUNT 421 K/MM3 (134-434); RBC 2.71 M/mm3 (4.00-5.60); RDW 18.4 % (11.9-15.9); WHITE BLOOD COUNT 12.5 K/mm3 (4.0-10.0)
[2019-09-13] MEDS ORDERED: DEXTROSE 5%-WATER - 50 ML IVPB ONE (10:17)
[2019-09-13] MEDS ORDERED: cefTRIAXone SODIUM 1 GM VIAL ONE (10:17)
[2019-09-13] MEDS: amLODIPine BESYLATE 5 MG TABLET (FP) PO SCH (10:23)
[2019-09-13] MEDS: METOPROLOL TARTRATE 25 MG TABLET (FP) PO SCH ×2 (10:23→21:09)
[2019-09-13] MEDS: TAMSULOSIN HCL 0.4 MG CAP PO SCH (10:23)
[2019-09-13] MEDS: ASPIRIN COATED 81 MG TABLET.EC PO SCH (10:23)
[2019-09-13] MEDS: APIXABAN 5 MG TABLET PO SCH ×2 (10:23→21:10)
[2019-09-13] MEDS: AZITHROMYCIN 250 MG TABLET PO SCH (10:23)
[2019-09-13] MEDS: POTASSIUM CHLORIDE TABS 20 MEQ TABLET.ER (FP) PO SCH (10:24)
[2019-09-13] MEDS: MULTIVITAMINS (DAILY MVI) TABLET (FP) PO SCH (10:24)
[2019-09-13] MEDS: LIDOCAINE 5% TOPICAL PATCH TP SCH (10:24)
[2019-09-13] MEDS: FERROUS SO4 325 MG TABLET (FP) PO SCH ×2 (10:24→21:10)
[2019-09-13] MEDS: CEFTRIAXONE 1 GM in DEXTROSE 5%-WATER - 50 ML IVPB SCH (10:24)
--- NOTE | 2019-09-13 10:31 | PN ---
Progress Note, Physician Chief Complaint: Hematuria BEKA UTI History of Present Illness: NAD CT abd/pelvis reviewed Now being treated for HAP with IV abx Also bone metastasis vs piaget's is being ruled, bone scan pending - Current Medication List Current Medications: Active Medications Acetaminophen (Tylenol -) 650 mg PO Q6H PRN PRN Reason: PAIN SCALE 1-5 OR FEVER Last Admin: 09/13/19 00:30 Dose: 650 mg Acetaminophen (Tylenol -) 325 mg PO Q4H PRN PRN Reason: PAIN SCALE 6-10 Last Admin: 09/09/19 12:05 Dose: 325 mg Al Hydroxide/Mg Hydroxide (Mylanta Oral Suspension -) 30 ml PO Q6H PRN PRN Reason: DYSPEPSIA Last Admin: 09/09/19 12:07 Dose: 30 ml Amlodipine Besylate (Norvasc -) 5 mg PO DAILY [facility] Last Admin: 09/13/19 10:23 Dose: 5 mg Apixaban (Eliquis -) 5 mg PO BID [facility] Last Admin: 09/13/19 10:23 Dose: 5 mg Aspirin (Ecotrin -) 81 mg PO DAILY [facility] Last Admin: 09/13/19 10:23 Dose: 81 mg Atorvastatin Calcium (Lipitor -) 40 mg PO HS [facility] Last Admin: 09/12/19 21:36 Dose: 40 mg Azithromycin (Zithromax -) 250 mg PO DAILY [facility] Last Admin: 09/13/19 10:23 Dose: 250 mg Docusate Sodium (Colace -) 300 mg PO HS [facility] Last Admin: 09/12/19 21:36 Dose: 300 mg Fentanyl (Sublimaze Injection -) 50 mcg IVPUSH [id number] PRN PRN Reason: PAIN-PACU ORDER X 4 DOSES ONLY Last Admin: 09/05/19 16:00 Dose: 50 mcg Ferrous Sulfate (Feosol -) 325 mg PO BID [facility] Last Admin: 09/13/19 10:24 Dose: 325 mg Furosemide (Lasix Injection -) 40 mg IVPUSH BID@0600,1400 [facility] Last Admin: 09/13/19 06:29 Dose: 40 mg Gabapentin (Neurontin -) 300 mg PO TID [facility] Last Admin: 09/13/19 06:29 Dose: 300 mg Ceftriaxone Sodium 1 gm/ (Dextrose) 50 mls @ 200 mls/hr IVPB DAILY [facility]; Protocol Last Admin: 09/13/19 10:24 Dose: 200 mls/hr Lidocaine (Lidoderm Patch -) 1 patch TP DAILY [facility] Last Admin: 09/13/19 10:24 Dose: 1 patch Magnesium Hydroxide (Milk Of Magnesia -) 30 ml PO DAILY PRN PRN Reason: CONSTIPATION Last Admin: 09/09/19 09:37 Dose: 30 ml Melatonin (Melatonin) 3 mg PO HS [facility] Last Admin: 09/12/19 21:36 Dose: 3 mg Metoprolol Tartrate (Lopressor -) 25 mg PO BID [facility] Last Admin: 09/13/19 10:23 Dose: 25 mg Mineral Oil (Fleet Mineral Oil Rectal Enema -) 133 ml [place] NOW PRN PRN Reason: CONSTIPATION Miscellaneous (Lidoderm Patch Removal) 1 each MC DAILY@2200 [facility] Last Admin: 09/12/19 21:37 Dose: 1 each Multivitamins/Minerals/Vitamin C (Tab-A-Vit -) 1 tab PO DAILY [facility] Last Admin: 09/13/19 10:24 Dose: 1 tab Ondansetron HCl (Zofran Injection) 4 mg IVPUSH Q6H PRN PRN Reason: NAUSEA AND/OR VOMITING Last Admin: 09/05/19 16:45 Dose: 4 mg Phenazopyridine HCl (Pyridium -) 200 mg PO TID [facility] Last Admin: 09/13/19 06:29 Dose: 200 mg Polyethylene Glycol (Miralax (For Daily Use) -) 17 gm PO DAILY [facility] Last Admin: 09/12/19 12:00 Dose: Not Given Potassium Chloride (K-Dur -) 40 meq PO DAILY [facility] Last Admin: 09/13/19 10:24 Dose: 40 meq Senna (Senna -) 2 tab PO HS PRN PRN Reason: CONSTIPATION Last Admin: 09/04/19 11:29 Dose: 2 tab Sitagliptin Phosphate (Januvia -) 25 mg PO DAILY@0700 [facility] Last Admin: 09/13/19 06:29 Dose: 25 mg Tamsulosin HCl (Flomax -) 0.4 mg PO DAILY@0830 [facility] Last Admin: 09/13/19 10:23 Dose: 0.4 mg - Objective Vital Signs: Vital Signs Temperature 97.2 F L 09/13/19 06:00 Pulse Rate 81 09/13/19 06:00 Respiratory Rate 20 09/13/19 06:00 Blood Pressure 122/69 09/13/19 06:00 O2 Sat by Pulse Oximetry (%) 95 09/12/19 21:00 Constitutional: Yes: Well Nourished, No Distress, Calm Cardiovascular: Yes: Regular Rate and Rhythm Respiratory: Yes: Regular Gastrointestinal: Yes: Normal Bowel Sounds, Soft, Abdomen, Obese Genitourinary: Yes: Thomas Present Musculoskeletal: Yes: Muscle Weakness Extremities: Yes: WNL Edema: No Peripheral Pulses WNL: Yes Neurological: Yes: Alert, Oriented Psychiatric: Yes: Alert, Oriented Labs: CBC, BMP 09/13/19 07:20 09/12/19 07:05 INR, PTT INR 1.53 (0.83-1.09) H 08/31/19 12:31 Problem List - Problems (1) BEKA (acute kidney injury) Assessment/Plan: -Cr improved -Nephrology on board -Monitor trend -likely 2/2 to UTI Problems reviewed: Yes Code(s): N17.9 - ACUTE KIDNEY FAILURE, UNSPECIFIED (2) Gross hematuria Assessment/Plan: -resolved -H/H stable -Seen by Urology -s/p cystoscopy -D/C thomas catheter -Bladder scan in 12 hours post discontinuation, re-insert Thomas if retaining > 300 ml of urine Problems reviewed: Yes Code(s): R31.0 - GROSS HEMATURIA (3) UTI (urinary tract infection) Assessment/Plan: -ID on board -IV abx -UC: Microbiology 08/31/19 20:00 Blood - Peripheral Venous Blood Culture - Preliminary NO GROWTH OBTAINED AFTER 48 HOURS, INCUBATION TO CONTINUE FOR 3 DAYS. 08/31/19 20:00 Blood - Peripheral Venous Blood Culture - Preliminary NO GROWTH OBTAINED AFTER 48 HOURS, INCUBATION TO CONTINUE FOR 3 DAYS. 08/31/19 12:39 Urine - Urine Thomas Urine Culture - Final Proteus Mirabilis -afebrile -Pyridium 200 mg po tid for dysuria -Morphine PRN -Tramadol PRN Problems reviewed: Yes Code(s): N39.0 - URINARY TRACT INFECTION, SITE NOT SPECIFIED (4) CHF (congestive heart failure) Assessment/Plan: -Seen by cardiology -entresto discontinued -CXR shows congestive changes and possible Left infiltrate -Furosemide 40 mg IV BID -Repeat Echo to determine EF, previous echo of poor quality Problems reviewed: Yes Code(s): I50.9 - HEART FAILURE, UNSPECIFIED Qualifiers: Heart failure type: unspecified Heart failure chronicity: chronic Qualified Code(s): I50.9 - Heart failure, unspecified (5) Paroxysmal A-fib Assessment/Plan: -Eliquis resumed Problems reviewed: Yes Code(s): I48.0 - PAROXYSMAL ATRIAL FIBRILLATION (6) Anemia Assessment/Plan: -monitor H/H trend -Transfure for Hg<7.0 to avoid fluid overload -Already on ferrous sulfate BID -monitor trend -hematology consult Problems reviewed: Yes Code(s): D64.9 - ANEMIA, UNSPECIFIED Qualifiers: Anemia type: iron deficiency (7) Abdominal pain Assessment/Plan: -CT abd/pelvis reviewed: 1. Left lower lobe consolidation and small pleural effusion. 2. Trace right pleural effusion and basilar atelectasis. 3. Cholelithiasis. 4. Left-sided hydronephrosis without obvious obstruction. 5. Bony changes within the sacrum pelvis that could represent Paget's disease although bony metastases cannot be excluded. Limited study as described above. -Awaiting Bone scan Problems reviewed: Yes Code(s): R10.9 - UNSPECIFIED ABDOMINAL PAIN (8) Diabetes Assessment/Plan: -Last A1c at 6.4 in 06/2019 -D/C BGM -Maintained on low dose Januvia+ diabetic diet-would continue Problems reviewed: Yes Code(s): E11.9 - TYPE 2 DIABETES MELLITUS WITHOUT COMPLICATIONS Qualifiers: Diabetes mellitus type: other specified (including TAN) Diabetes mellitus manager long term care insulin use: unspecified manager long term care insulin use status Diabetes mellitus complication status: with other specified complication Qualified Code (s): E13.69 - Other specified diabetes mellitus with other specified complication (9) Pneumonia Assessment/Plan: -Pulmonary and ID on board -IV abx -Nasal O2 PRN -Bronchodilators Problems reviewed: Yes Code(s): J18.9 - PNEUMONIA, UNSPECIFIED ORGANISM Assessment/Plan see problem list PT
--- NOTE | 2019-09-13 11:22 | PN ---
Progress Note (short form) - Note Progress Note: PULMONARY Denies shortness of breath. No cough or wheezing. No fevers. Vital Signs Period Temp Pulse Resp BP Sys/[place] Pulse Ox Last 24 Hr 97.2 F-98.8 F 79-89 14-28 113-140/55-77 95-97 Intake & Output 09/11/19 09/11/19 09/12/19 09/13/19 00:59 23:59 23:59 23:59 Intake Total 3450 300 Output Total 3900 900 Balance -450 -600 Gen: NAD at rest Heart: RRR Lung: decreased breath sounds at the bases Abd: soft, nontender Ext: trace edema CBC, BMP 09/13/19 07:20 09/12/19 07:05 Active Medications Acetaminophen (Tylenol -) 650 mg PO Q6H PRN PRN Reason: PAIN SCALE 1-5 OR FEVER Last Admin: 09/13/19 00:30 Dose: 650 mg Acetaminophen (Tylenol -) 325 mg PO Q4H PRN PRN Reason: PAIN SCALE 6-10 Last Admin: 09/09/19 12:05 Dose: 325 mg Al Hydroxide/Mg Hydroxide (Mylanta Oral Suspension -) 30 ml PO Q6H PRN PRN Reason: DYSPEPSIA Last Admin: 09/09/19 12:07 Dose: 30 ml Albuterol/Ipratropium (Duoneb -) 1 amp NEB Q4H PRN PRN Reason: SHORTNESS OF BREATH Amlodipine Besylate (Norvasc -) 5 mg PO DAILY [facility] Last Admin: 09/13/19 10:23 Dose: 5 mg Apixaban (Eliquis -) 5 mg PO BID [facility] Last Admin: 09/13/19 10:23 Dose: 5 mg Aspirin (Ecotrin -) 81 mg PO DAILY [facility] Last Admin: 09/13/19 10:23 Dose: 81 mg Atorvastatin Calcium (Lipitor -) 40 mg PO HS [facility] Last Admin: 09/12/19 21:36 Dose: 40 mg Azithromycin (Zithromax -) 250 mg PO DAILY [facility] Last Admin: 09/13/19 10:23 Dose: 250 mg Docusate Sodium (Colace -) 300 mg PO HS [facility] Last Admin: 09/12/19 21:36 Dose: 300 mg Fentanyl (Sublimaze Injection -) 50 mcg IVPUSH [id number] PRN PRN Reason: PAIN-PACU ORDER X 4 DOSES ONLY Last Admin: 09/05/19 16:00 Dose: 50 mcg Ferrous Sulfate (Feosol -) 325 mg PO BID [facility] Last Admin: 09/13/19 10:24 Dose: 325 mg Furosemide (Lasix Injection -) 40 mg IVPUSH BID@0600,1400 [facility] Last Admin: 09/13/19 06:29 Dose: 40 mg Gabapentin (Neurontin -) 300 mg PO TID [facility] Last Admin: 09/13/19 06:29 Dose: 300 mg Ceftriaxone Sodium 1 gm/ (Dextrose) 50 mls @ 200 mls/hr IVPB DAILY [facility]; Protocol Last Admin: 09/13/19 10:24 Dose: 200 mls/hr Lidocaine (Lidoderm Patch -) 1 patch TP DAILY [facility] Last Admin: 09/13/19 10:24 Dose: 1 patch Magnesium Hydroxide (Milk Of Magnesia -) 30 ml PO DAILY PRN PRN Reason: CONSTIPATION Last Admin: 09/09/19 09:37 Dose: 30 ml Melatonin (Melatonin) 3 mg PO HS [facility] Last Admin: 09/12/19 21:36 Dose: 3 mg Metoprolol Tartrate (Lopressor -) 25 mg PO BID [facility] Last Admin: 09/13/19 10:23 Dose: 25 mg Mineral Oil (Fleet Mineral Oil Rectal Enema -) 133 ml [place] NOW PRN PRN Reason: CONSTIPATION Miscellaneous (Lidoderm Patch Removal) 1 each MC DAILY@2200 [facility] Last Admin: 09/12/19 21:37 Dose: 1 each Multivitamins/Minerals/Vitamin C (Tab-A-Vit -) 1 tab PO DAILY [facility] Last Admin: 09/13/19 10:24 Dose: 1 tab Ondansetron HCl (Zofran Injection) 4 mg IVPUSH Q6H PRN PRN Reason: NAUSEA AND/OR VOMITING Last Admin: 09/05/19 16:45 Dose: 4 mg Phenazopyridine HCl (Pyridium -) 200 mg PO TID [facility] Last Admin: 09/13/19 06:29 Dose: 200 mg Polyethylene Glycol (Miralax (For Daily Use) -) 17 gm PO DAILY [facility] Last Admin: 09/12/19 12:00 Dose: Not Given Potassium Chloride (K-Dur -) 40 meq PO DAILY [facility] Last Admin: 09/13/19 10:24 Dose: 40 meq Senna (Senna -) 2 tab PO HS PRN PRN Reason: CONSTIPATION Last Admin: 09/04/19 11:29 Dose: 2 tab Sitagliptin Phosphate (Januvia -) 25 mg PO DAILY@0700 [facility] Last Admin: 09/13/19 06:29 Dose: 25 mg Tamsulosin HCl (Flomax -) 0.4 mg PO DAILY@0830 [facility] Last Admin: 09/13/19 10:23 Dose: 0.4 mg A/P Acute on Chronic Diastolic Heart Failure Acute Kidney Injury Atrial Fibrillation BPH s/p Cystoscopy/TURP Hematuria UTI Anemia DM - continue lasix, can change to daily - monitor urine output, creatinine - daily weights - O2 to keep SpO2 >90% - rate control - continue anticoagulation - monitor H/H - complete antibiotics - DVT prophylaxis
[2019-09-13 12:09] VITALS: BMI 30.5
[2019-09-13] MEDS ORDERED: PT OWN MED DRAWER 7, Y5N ONE ×2 (12:21→20:03)
[2019-09-13] MEDS: ALBUTEROL SO4 2.5/IPRATROPIUM 0.5 INH SOL 3 ML VIAL.NEB. NEB PRN ×2 (13:27→21:05)
--- NOTE | 2019-09-13 14:46 | PATH ---
Surgical Pathology Report Patient Name: KAYLEEN CORBETT [facility]. Rec. #: [id number] /Age/Gender: 1940 (Age: 78) / M Account: [id number] Location: [address] [place] [address] Taken: 09/08/2019 Received: 09/08/2019 Reported: 09/13/2019 Physicians: Sara Cortez M.D. Specimen(s) Received PERIPHERAL BLOOD Clinical History Lymphocytosis Final Diagnosis COMPREHENSIVE FLOW PANEL performed and interpreted at [place], [place] ([id number]) shows the following: INTERPRETATION: GRANULOCYTOSIS WITH MILD LEFT-SHIFT (SEE COMMENT) COMMENT: Correlate with morphologic and clinical findings for further evaluation of the significance of the observed left-shifted granulocytosis. See [facility] report ([id number]) for additional details. MYELODYSPLASIA FISH PANEL performed and interpreted at [place], [place] shows the following: INTERPRETATION: No evidence of deletion 5q or monosomy 5 is present. No evidence of deletion 7q or monosomy 7 is present. No evidence of trisomy 8 (+8) is present. No evidence of deletion 13q14.2 is present. No evidence of rearrangement of 11q23. No evidence of a deletion of the p53 (17p13) locus. No evidence of deletion 20q12 is present See [facility] report ([id number]) for additional details. Electronically Signed Nazanin Garcia M.D. Addendum Reported: 09/19/2019 Addendum Diagnosis CYTOGENETIC KARYOTYPE ANALYSIS performed and interpreted at [facility] shows the following: RESULTS: Tissue Culture Failure INTERPRETATION: This unstimulated peripheral blood specimen did not produce any analyzable metaphase cells and, therefore, chromosome analysis is not possible. A bone marrow aspirate, when clinically appropriate, is recommended. See [facility] report for additional details ([id number]). Nazanin Garcia M.D.
--- NOTE | 2019-09-13 16:08 | ECHO ---
Name: KAYLEEN CORBETT Exam:Adult Echocardiogram Study Date: 09/13/2019 02:17 PM Age: 78 yrs Height: 71 in Weight: 219 lb BSA: 2.2 m2 MMode/2D Measurements & Calculations Ao root diam: 3.8 cm EPSS: 1.6 cm LA dimension: 3.9 cm ACS: 1.8 cm Doppler Measurements & Calculations MV E max ryan: 101.2 cm/sec Ao V2 max: 159.6 cm/sec MV A max ryan: 79.0 cm/sec Ao max P.2 mmHg MV E/A: 1.3 Ao V2 mean: 107.1 cm/sec Ao mean P.3 mmHg Ao V2 VTI: 31.3 cm AI P1/2t: 666.9 msec AI max ryan: 311.3 cm/sec MR max ryan: 467.8 cm/sec AI max P.8 mmHg MR max P.7 mmHg AI dec slope: 136.7 cm/sec2 TR max ryan: 283.2 cm/sec PI end-d ryan: 165.1 cm/sec TR max P.7 mmHg Med Peak E' Ryan: 4.8 cm/sec Med E/e': 21.0 Lat Peak E' Ryan: 10.0 cm/sec Lat E/e': 10.1 Left Ventricle The left ventricular size, thickness and function are normal. Paradoxical septal motion secondary to conduction delay. Right Ventricle The right ventricle is grossly normal size. There is normal right ventricular wall thickness. The rig ht ventricular systolic function is normal. Atria The left atrium is mildly dilated. Right atrial size is normal. Mitral Valve The mitral valve is grossly normal. There is moderate mitral regurgitation. Tricuspid Valve The tricuspid valve is not well visualized, but is grossly normal. There is moderate tricuspid regurg itation. PASP 41 mmHg. Aortic Valve The aortic valve is normal in structure and function. Pulmonic Valve The pulmonic valve is not well visualized. Great Vessels The aortic root is normal size. Pericardium/Pleura Trivial pericardial effusion not hemodynamically significant. Interpretation Summary The left ventricular size, thickness and function are normal There is normal right ventricular wall thickness. The right ventricle is grossly normal size. The right ventricular systolic function is normal. Paradoxical septal motion secondary to conduction delay. The left atrium is mildly dilated. The mitral valve is grossly normal. There is moderate tricuspid regurgitation. PASP 41 mmHg The aortic valve is normal in structure and function. The aortic root is normal size. Trivial pericardial effusion not hemodynamically significant The estimated EF is 53% MD Milan Sepulveda 09/13/2019 04:07 PM
[2019-09-13 17:06] LABS: FREE KAPPA,SERUM 32.3 mg/L (3.3-19.4)
[2019-09-13] MEDS: POLYETHYLENE GLYCOL 3350 119 GM BTL PO SCH (18:54)
[2019-09-13] MEDS: MELATONIN 1 MG TABLET PO SCH (21:09)
[2019-09-13] MEDS: DOCUSATE SODIUM 100 MG CAPSULE (FP) PO SCH (21:09)
[2019-09-13] MEDS: ATORVASTATIN CA 40 MG TABLET (FP) PO SCH (21:09)
[2019-09-13] MEDS: LIDOCAINE PATCH REMOVAL MC SCH (21:11)
--- NOTE | 2019-09-13 23:57 | PN ---
Progress Note, Physician Chief Complaint: Pt alert; on CPAP; no chest pain. History of Present Illness: The patient is a 78 year old black male with history of diabetes, diastolic CHF , CAD-->?2 coronary stents in ?2015 at ?[place], atrial fibrillation, anemia, who presents to the emergency department for evaluation of dysuria, hematuria, and urinary retention since last night. Patient denies fever/chills/nausea/ vomiting/melena.He comes from [facility] where a thomas was placed this morning. Urologist: Omar Friedman PCP: Hung Friedman - Current Medication List Current Medications: Active Medications Acetaminophen (Tylenol -) 650 mg PO Q6H PRN PRN Reason: PAIN SCALE 1-5 OR FEVER Last Admin: 09/13/19 13:04 Dose: 650 mg Acetaminophen (Tylenol -) 325 mg PO Q4H PRN PRN Reason: PAIN SCALE 6-10 Last Admin: 09/09/19 12:05 Dose: 325 mg Al Hydroxide/Mg Hydroxide (Mylanta Oral Suspension -) 30 ml PO Q6H PRN PRN Reason: DYSPEPSIA Last Admin: 09/09/19 12:07 Dose: 30 ml Albuterol/Ipratropium (Duoneb -) 1 amp NEB Q4H PRN PRN Reason: SHORTNESS OF BREATH Last Admin: 09/13/19 21:05 Dose: 1 amp Amlodipine Besylate (Norvasc -) 5 mg PO DAILY [facility] Last Admin: 09/13/19 10:23 Dose: 5 mg Apixaban (Eliquis -) 5 mg PO BID [facility] Last Admin: 09/13/19 21:10 Dose: 5 mg Aspirin (Ecotrin -) 81 mg PO DAILY [facility] Last Admin: 09/13/19 10:23 Dose: 81 mg Atorvastatin Calcium (Lipitor -) 40 mg PO HS [facility] Last Admin: 09/13/19 21:09 Dose: 40 mg Azithromycin (Zithromax -) 250 mg PO DAILY [facility] Last Admin: 09/13/19 10:23 Dose: 250 mg Docusate Sodium (Colace -) 300 mg PO HS [facility] Last Admin: 09/13/19 21:09 Dose: 300 mg Fentanyl (Sublimaze Injection -) 50 mcg IVPUSH [id number] PRN PRN Reason: PAIN-PACU ORDER X 4 DOSES ONLY Last Admin: 09/05/19 16:00 Dose: 50 mcg Ferrous Sulfate (Feosol -) 325 mg PO BID [facility] Last Admin: 09/13/19 21:10 Dose: 325 mg Furosemide (Lasix Injection -) 40 mg IVPUSH DAILY [facility] Gabapentin (Neurontin -) 300 mg PO TID [facility] Last Admin: 09/13/19 21:10 Dose: 300 mg Ceftriaxone Sodium 1 gm/ (Dextrose) 50 mls @ 200 mls/hr IVPB DAILY [facility]; Protocol Last Admin: 09/13/19 10:24 Dose: 200 mls/hr Lidocaine (Lidoderm Patch -) 1 patch TP DAILY [facility] Last Admin: 09/13/19 10:24 Dose: 1 patch Magnesium Hydroxide (Milk Of Magnesia -) 30 ml PO DAILY PRN PRN Reason: CONSTIPATION Last Admin: 09/09/19 09:37 Dose: 30 ml Melatonin (Melatonin) 3 mg PO HS [facility] Last Admin: 09/13/19 21:09 Dose: 3 mg Metoprolol Tartrate (Lopressor -) 25 mg PO BID [facility] Last Admin: 09/13/19 21:09 Dose: 25 mg Mineral Oil (Fleet Mineral Oil Rectal Enema -) 133 ml [place] NOW PRN PRN Reason: CONSTIPATION Miscellaneous (Lidoderm Patch Removal) 1 each MC DAILY@2200 [facility] Last Admin: 09/13/19 21:11 Dose: 1 each Multivitamins/Minerals/Vitamin C (Tab-A-Vit -) 1 tab PO DAILY [facility] Last Admin: 09/13/19 10:24 Dose: 1 tab Ondansetron HCl (Zofran Injection) 4 mg IVPUSH Q6H PRN PRN Reason: NAUSEA AND/OR VOMITING Last Admin: 09/05/19 16:45 Dose: 4 mg Phenazopyridine HCl (Pyridium -) 200 mg PO TID [facility] Last Admin: 09/13/19 21:08 Dose: 200 mg Polyethylene Glycol (Miralax (For Daily Use) -) 17 gm PO DAILY [facility] Last Admin: 09/13/19 18:54 Dose: 17 gm Potassium Chloride (K-Dur -) 40 meq PO DAILY [facility] Last Admin: 09/13/19 10:24 Dose: 40 meq Senna (Senna -) 2 tab PO HS PRN PRN Reason: CONSTIPATION Last Admin: 09/04/19 11:29 Dose: 2 tab Sitagliptin Phosphate (Januvia -) 25 mg PO DAILY@0700 [facility] Last Admin: 09/13/19 06:29 Dose: 25 mg Tamsulosin HCl (Flomax -) 0.4 mg PO DAILY@0830 [facility] Last Admin: 09/13/19 10:23 Dose: 0.4 mg - Objective Vital Signs: Vital Signs Temperature 98.6 F 09/13/19 21:34 Pulse Rate 85 09/13/19 21:34 Respiratory Rate 18 09/13/19 21:34 Blood Pressure 155/65 09/13/19 21:34 O2 Sat by Pulse Oximetry (%) 96 09/13/19 21:00 Constitutional: Yes: Anxious Eyes: Yes: WNL HENT: Yes: WNL Neck: Yes: WNL Cardiovascular: Yes: S1, S2 (split) Respiratory: Yes: WNL Gastrointestinal: Yes: Soft, Abdomen, Obese ...Rectal Exam: Yes: Deferred Genitourinary: Yes: Anuria Breast(s): Yes: WNL Musculoskeletal: Yes: Muscle Weakness Extremities: Yes: WNL Edema: No Peripheral Pulses WNL: Yes Integumentary: Yes: WNL Neurological: Yes: WNL Psychiatric: Yes: Other Labs: CBC, BMP 09/13/19 07:20 09/12/19 07:05 INR, PTT INR 1.53 (0.83-1.09) H 08/31/19 12:31 Abnormal Lab Results 09/16/19 09/16/19 07:40 07:40 WBC 10.6 H RBC 2.63 L Hgb 8.0 L Hct 24.8 L RDW 18.6 H MPV 7.2 L Carbon Dioxide 34 H Anion Gap 3 L BUN 19.0 H AST 11 L Alkaline Phosphatase 157 H Total Protein 5.9 L Albumin 2.8 L - ....Imaging Chest X-ray: Image Reviewed Problem List - Problems (1) UTI (urinary tract infection) Code(s): N39.0 - URINARY TRACT INFECTION, SITE NOT SPECIFIED (2) Paroxysmal A-fib Assessment/Plan: On metoprolol for HR control. On apixaban for anticoagulation. ECHO: normal LVEF; moderate TR; mild LAE. Code(s): I48.0 - PAROXYSMAL ATRIAL FIBRILLATION (3) Renal dysfunction Assessment/Plan: Resolved. Code(s): N28.9 - DISORDER OF KIDNEY AND URETER, UNSPECIFIED (4) Obesity (BMI 30.0-34.9) Code(s): E66.9 - OBESITY, UNSPECIFIED (5) Anemia Code(s): D64.9 - ANEMIA, UNSPECIFIED Qualifiers: Anemia type: iron deficiency (6) Diastolic CHF Code(s): I50.30 - UNSPECIFIED DIASTOLIC (CONGESTIVE) HEART FAILURE
[2019-09-14] MEDS: GABAPENTIN 300 MG CAPSULE (FP) PO SCH ×3 (06:31→22:07)
[2019-09-14] MEDS: PHENAZOPYRIDINE HCL 100 MG TABLET (FP) PO SCH ×3 (06:32→22:08)
[2019-09-14 08:16] LABS: BASO % 0.6 % (0-2.0); EOS % 2.4 % (0-4.5); HEMATOCRIT 25.4 % (35.4-49); HEMOGLOBIN 8.4 GM/dL (11.7-16.9); LYMPH % 8.3 % (8-40); MCHC 32.9 g/dl (32.0-35.9); MEAN CELL VOLUME 94.3 fl (80-96); MEAN PLT VOLUME 7.4 fl (7.5-11.1); MONO % 4.3 % (3.8-10.2); NEUT % 84.4 % (42.8-82.8); PLATELET COUNT 409 K/MM3 (134-434); RBC 2.69 M/mm3 (4.00-5.60); RDW 18.3 % (11.9-15.9); WHITE BLOOD COUNT 10.6 K/mm3 (4.0-10.0)
[2019-09-14 08:45] LABS: ALBUMIN 2.7 g/dl (3.4-5.0); BILIRUBIN,TOTAL 0.4 mg/dL (0.2-1); BLOOD UREA NITROGEN 16.6 mg/dL (7-18); CALCIUM 9.1 mg/dL (8.5-10.1); POTASSIUM 4.4 mmol/L (3.5-5.1)
[2019-09-14] MEDS ORDERED: DEXTROSE 5%-WATER - 50 ML IVPB ONE (09:48)
[2019-09-14] MEDS ORDERED: cefTRIAXone SODIUM 1 GM VIAL ONE (09:48)
--- NOTE | 2019-09-14 10:05 | PN ---
Progress Note, Physician Chief Complaint: Hematuria BEKA UTI History of Present Illness: NAD CT abd/pelvis reviewed Now being treated for HAP with IV abx Also bone metastasis vs piaget's is being ruled, bone scan pending Echo reviewed - Current Medication List Current Medications: Active Medications Acetaminophen (Tylenol -) 650 mg PO Q6H PRN PRN Reason: PAIN SCALE 1-5 OR FEVER Last Admin: 09/13/19 13:04 Dose: 650 mg Acetaminophen (Tylenol -) 325 mg PO Q4H PRN PRN Reason: PAIN SCALE 6-10 Last Admin: 09/09/19 12:05 Dose: 325 mg Al Hydroxide/Mg Hydroxide (Mylanta Oral Suspension -) 30 ml PO Q6H PRN PRN Reason: DYSPEPSIA Last Admin: 09/09/19 12:07 Dose: 30 ml Albuterol/Ipratropium (Duoneb -) 1 amp NEB Q4H PRN PRN Reason: SHORTNESS OF BREATH Last Admin: 09/13/19 21:05 Dose: 1 amp Amlodipine Besylate (Norvasc -) 5 mg PO DAILY [facility] Last Admin: 09/13/19 10:23 Dose: 5 mg Apixaban (Eliquis -) 5 mg PO BID [facility] Last Admin: 09/13/19 21:10 Dose: 5 mg Aspirin (Ecotrin -) 81 mg PO DAILY [facility] Last Admin: 09/13/19 10:23 Dose: 81 mg Atorvastatin Calcium (Lipitor -) 40 mg PO HS [facility] Last Admin: 09/13/19 21:09 Dose: 40 mg Azithromycin (Zithromax -) 250 mg PO DAILY [facility] Last Admin: 09/13/19 10:23 Dose: 250 mg Docusate Sodium (Colace -) 300 mg PO HS [facility] Last Admin: 09/13/19 21:09 Dose: 300 mg Fentanyl (Sublimaze Injection -) 50 mcg IVPUSH [id number] PRN PRN Reason: PAIN-PACU ORDER X 4 DOSES ONLY Last Admin: 09/05/19 16:00 Dose: 50 mcg Ferrous Sulfate (Feosol -) 325 mg PO BID [facility] Last Admin: 09/13/19 21:10 Dose: 325 mg Furosemide (Lasix Injection -) 40 mg IVPUSH DAILY [facility] Gabapentin (Neurontin -) 300 mg PO TID [facility] Last Admin: 09/14/19 06:31 Dose: 300 mg Ceftriaxone Sodium 1 gm/ (Dextrose) 50 mls @ 200 mls/hr IVPB DAILY [facility]; Protocol Last Admin: 09/13/19 10:24 Dose: 200 mls/hr Lidocaine (Lidoderm Patch -) 1 patch TP DAILY [facility] Last Admin: 09/13/19 10:24 Dose: 1 patch Magnesium Hydroxide (Milk Of Magnesia -) 30 ml PO DAILY PRN PRN Reason: CONSTIPATION Last Admin: 09/09/19 09:37 Dose: 30 ml Melatonin (Melatonin) 3 mg PO HS [facility] Last Admin: 09/13/19 21:09 Dose: 3 mg Metoprolol Tartrate (Lopressor -) 25 mg PO BID [facility] Last Admin: 09/13/19 21:09 Dose: 25 mg Mineral Oil (Fleet Mineral Oil Rectal Enema -) 133 ml [place] NOW PRN PRN Reason: CONSTIPATION Miscellaneous (Lidoderm Patch Removal) 1 each MC DAILY@2200 [facility] Last Admin: 09/13/19 21:11 Dose: 1 each Multivitamins/Minerals/Vitamin C (Tab-A-Vit -) 1 tab PO DAILY [facility] Last Admin: 09/13/19 10:24 Dose: 1 tab Ondansetron HCl (Zofran Injection) 4 mg IVPUSH Q6H PRN PRN Reason: NAUSEA AND/OR VOMITING Last Admin: 09/05/19 16:45 Dose: 4 mg Phenazopyridine HCl (Pyridium -) 200 mg PO TID [facility] Last Admin: 09/14/19 06:32 Dose: 200 mg Polyethylene Glycol (Miralax (For Daily Use) -) 17 gm PO DAILY [facility] Last Admin: 09/13/19 18:54 Dose: 17 gm Potassium Chloride (K-Dur -) 40 meq PO DAILY [facility] Last Admin: 09/13/19 10:24 Dose: 40 meq Senna (Senna -) 2 tab PO HS PRN PRN Reason: CONSTIPATION Last Admin: 09/04/19 11:29 Dose: 2 tab Sitagliptin Phosphate (Januvia -) 25 mg PO DAILY@0700 [facility] Last Admin: 09/14/19 06:31 Dose: 25 mg Tamsulosin HCl (Flomax -) 0.4 mg PO DAILY@0830 [facility] Last Admin: 09/13/19 10:23 Dose: 0.4 mg - Objective Vital Signs: Vital Signs Temperature 97.9 F 09/14/19 06:00 Pulse Rate 76 09/14/19 06:00 Respiratory Rate 18 09/14/19 06:00 Blood Pressure 122/69 09/14/19 06:00 O2 Sat by Pulse Oximetry (%) 96 09/13/19 21:00 Constitutional: Yes: Well Nourished, No Distress, Calm Cardiovascular: Yes: Regular Rate and Rhythm Respiratory: Yes: Regular Gastrointestinal: Yes: Normal Bowel Sounds, Soft, Abdomen, Obese Genitourinary: Yes: WNL, Incontinence Musculoskeletal: Yes: Muscle Weakness Extremities: Yes: WNL Edema: No Peripheral Pulses WNL: Yes Neurological: Yes: Alert, Oriented Psychiatric: Yes: Alert, Oriented Labs: CBC, BMP 09/14/19 07:00 09/14/19 06:55 INR, PTT INR 1.53 (0.83-1.09) H 08/31/19 12:31 Problem List - Problems (1) BEKA (acute kidney injury) Assessment/Plan: -Cr improved -Nephrology on board -Monitor trend -likely 2/2 to UTI Problems reviewed: Yes Code(s): N17.9 - ACUTE KIDNEY FAILURE, UNSPECIFIED (2) Gross hematuria Assessment/Plan: -resolved -H/H stable -Seen by Urology -s/p cystoscopy -Iqbal catheter discontinued, no urinary retention on bedside bladder scan Problems reviewed: Yes Code(s): R31.0 - GROSS HEMATURIA (3) UTI (urinary tract infection) Assessment/Plan: -ID on board -IV abx -UC: Microbiology 08/31/19 20:00 Blood - Peripheral Venous Blood Culture - Preliminary NO GROWTH OBTAINED AFTER 48 HOURS, INCUBATION TO CONTINUE FOR 3 DAYS. 08/31/19 20:00 Blood - Peripheral Venous Blood Culture - Preliminary NO GROWTH OBTAINED AFTER 48 HOURS, INCUBATION TO CONTINUE FOR 3 DAYS. 08/31/19 12:39 Urine - Urine Iqbal Urine Culture - Final Proteus Mirabilis -afebrile -Pyridium 200 mg po tid for dysuria -Acetaminophen for pain PRN Problems reviewed: Yes Code(s): N39.0 - URINARY TRACT INFECTION, SITE NOT SPECIFIED (4) CHF (congestive heart failure) Assessment/Plan: -Seen by cardiology -entresto discontinued -Last CXR shows congestive changes and possible Left infiltrate -Furosemide 40 mg IV BID -Repeat Echo reviewed-mild LA dilation, moderate tricuspid regurg, with approx EF 53% Problems reviewed: Yes Code(s): I50.9 - HEART FAILURE, UNSPECIFIED Qualifiers: Heart failure type: unspecified Heart failure chronicity: chronic Qualified Code(s): I50.9 - Heart failure, unspecified (5) Paroxysmal A-fib Assessment/Plan: -Continue Eliquis, maintaining stable H/H Problems reviewed: Yes Code(s): I48.0 - PAROXYSMAL ATRIAL FIBRILLATION (6) Anemia Assessment/Plan: -monitor H/H trend -Transfure for Hg<7.0 to avoid fluid overload -Already on ferrous sulfate BID -monitor trend -hematology consult Problems reviewed: Yes Code(s): D64.9 - ANEMIA, UNSPECIFIED Qualifiers: Anemia type: iron deficiency (7) Abdominal pain Assessment/Plan: -CT abd/pelvis reviewed: 1. Left lower lobe consolidation and small pleural effusion. 2. Trace right pleural effusion and basilar atelectasis. 3. Cholelithiasis. 4. Left-sided hydronephrosis without obvious obstruction. 5. Bony changes within the sacrum pelvis that could represent Paget's disease although bony metastases cannot be excluded. Limited study as described above. -Awaiting Bone scan Problems reviewed: Yes Code(s): R10.9 - UNSPECIFIED ABDOMINAL PAIN (8) Diabetes Assessment/Plan: -Last A1c at 6.4 in 06/2019 -D/C BGM -Maintained on low dose Januvia+ diabetic diet-would continue Problems reviewed: Yes Code(s): E11.9 - TYPE 2 DIABETES MELLITUS WITHOUT COMPLICATIONS Qualifiers: Diabetes mellitus type: other specified (including TAN) Diabetes mellitus ad terminal makeup operator insulin use: unspecified ad terminal makeup operator insulin use status Diabetes mellitus complication status: with other specified complication Qualified Code (s): E13.69 - Other specified diabetes mellitus with other specified complication (9) Pneumonia Assessment/Plan: -Pulmonary and ID on board -IV abx -Nasal O2 PRN -Bronchodilators Problems reviewed: Yes Code(s): J18.9 - PNEUMONIA, UNSPECIFIED ORGANISM Assessment/Plan see problem list PT
[2019-09-14] MEDS: APIXABAN 5 MG TABLET PO SCH ×2 (10:26→22:07)
[2019-09-14] MEDS: MULTIVITAMINS (DAILY MVI) TABLET (FP) PO SCH (10:26)
[2019-09-14] MEDS: FERROUS SO4 325 MG TABLET (FP) PO SCH ×2 (10:26→22:07)
[2019-09-14] MEDS: amLODIPine BESYLATE 5 MG TABLET (FP) PO SCH (10:26)
[2019-09-14] MEDS: METOPROLOL TARTRATE 25 MG TABLET (FP) PO SCH ×2 (10:26→22:07)
[2019-09-14] MEDS: ASPIRIN COATED 81 MG TABLET.EC PO SCH (10:26)
[2019-09-14] MEDS: AZITHROMYCIN 250 MG TABLET PO SCH (10:26)
[2019-09-14] MEDS: POTASSIUM CHLORIDE TABS 20 MEQ TABLET.ER (FP) PO SCH (10:27)
[2019-09-14] MEDS: TAMSULOSIN HCL 0.4 MG CAP PO SCH (10:27)
[2019-09-14] MEDS: FUROSEMIDE 40 MG/4 ML INJECTABLE VIAL IVPUSH SCH (10:27)
[2019-09-14] MEDS: LIDOCAINE 5% TOPICAL PATCH TP SCH (10:28)
[2019-09-14] MEDS: CEFTRIAXONE 1 GM in DEXTROSE 5%-WATER - 50 ML IVPB SCH (10:31)
[2019-09-14] MEDS: POLYETHYLENE GLYCOL 3350 119 GM BTL PO SCH (10:32)
[2019-09-14] MEDS: ALBUTEROL SO4 2.5/IPRATROPIUM 0.5 INH SOL 3 ML VIAL.NEB. NEB PRN ×2 (10:39→18:44)
--- NOTE | 2019-09-14 11:15 | PN ---
Progress Note, Physician History of Present Illness: The patient is a 78 year old male with history of diabetes, CHF, atrial fibrillation anemia who presents to the emergency department for evaluation of dysuria, hematuria, and urinary Retention since last night. Patient denies fever /chills/nausea/vomiting/melena.He comes from [facility] where a thomas was placed this morning. - Current Medication List Current Medications: Active Medications Acetaminophen (Tylenol -) 650 mg PO Q6H PRN PRN Reason: PAIN SCALE 1-5 OR FEVER Last Admin: 09/13/19 13:04 Dose: 650 mg Acetaminophen (Tylenol -) 325 mg PO Q4H PRN PRN Reason: PAIN SCALE 6-10 Last Admin: 09/09/19 12:05 Dose: 325 mg Al Hydroxide/Mg Hydroxide (Mylanta Oral Suspension -) 30 ml PO Q6H PRN PRN Reason: DYSPEPSIA Last Admin: 09/09/19 12:07 Dose: 30 ml Albuterol/Ipratropium (Duoneb -) 1 amp NEB Q4H PRN PRN Reason: SHORTNESS OF BREATH Last Admin: 09/14/19 10:39 Dose: 1 amp Amlodipine Besylate (Norvasc -) 5 mg PO DAILY [facility] Last Admin: 09/14/19 10:26 Dose: 5 mg Apixaban (Eliquis -) 5 mg PO BID [facility] Last Admin: 09/14/19 10:26 Dose: 5 mg Aspirin (Ecotrin -) 81 mg PO DAILY [facility] Last Admin: 09/14/19 10:26 Dose: 81 mg Atorvastatin Calcium (Lipitor -) [address] [facility] Last Admin: 09/13/19 21:09 Dose: 40 mg Azithromycin (Zithromax -) 250 mg PO DAILY [facility] Last Admin: 09/14/19 10:26 Dose: 250 mg Docusate Sodium (Colace -) 300 mg PO HS [facility] Last Admin: 09/13/19 21:09 Dose: 300 mg Fentanyl (Sublimaze Injection -) 50 mcg IVPUSH [id number] PRN PRN Reason: PAIN-PACU ORDER X 4 DOSES ONLY Last Admin: 09/05/19 16:00 Dose: 50 mcg Ferrous Sulfate (Feosol -) 325 mg PO BID [facility] Last Admin: 09/14/19 10:26 Dose: 325 mg Furosemide (Lasix Injection -) 40 mg IVPUSH DAILY [facility] Last Admin: 09/14/19 10:27 Dose: 40 mg Gabapentin (Neurontin -) 300 mg PO TID [facility] Last Admin: 09/14/19 06:31 Dose: 300 mg Ceftriaxone Sodium 1 gm/ (Dextrose) 50 mls @ 200 mls/hr IVPB DAILY [facility]; Protocol Last Admin: 09/14/19 10:31 Dose: 200 mls/hr Lidocaine (Lidoderm Patch -) 1 patch TP DAILY [facility] Last Admin: 09/14/19 10:28 Dose: 1 patch Magnesium Hydroxide (Milk Of Magnesia -) 30 ml PO DAILY PRN PRN Reason: CONSTIPATION Last Admin: 09/09/19 09:37 Dose: 30 ml Melatonin (Melatonin) 3 mg PO HS [facility] Last Admin: 09/13/19 21:09 Dose: 3 mg Metoprolol Tartrate (Lopressor -) 25 mg PO BID [facility] Last Admin: 09/14/19 10:26 Dose: 25 mg Mineral Oil (Fleet Mineral Oil Rectal Enema -) 133 ml [place] NOW PRN PRN Reason: CONSTIPATION Miscellaneous (Lidoderm Patch Removal) 1 each MC DAILY@2200 [facility] Last Admin: 09/13/19 21:11 Dose: 1 each Multivitamins/Minerals/Vitamin C (Tab-A-Vit -) 1 tab PO DAILY [facility] Last Admin: 09/14/19 10:26 Dose: 1 tab Ondansetron HCl (Zofran Injection) 4 mg IVPUSH Q6H PRN PRN Reason: NAUSEA AND/OR VOMITING Last Admin: 09/05/19 16:45 Dose: 4 mg Phenazopyridine HCl (Pyridium -) 200 mg PO TID [facility] Last Admin: 09/14/19 06:32 Dose: 200 mg Polyethylene Glycol (Miralax (For Daily Use) -) 17 gm PO DAILY [facility] Last Admin: 09/14/19 10:32 Dose: 17 gm Potassium Chloride (K-Dur -) 40 meq PO DAILY [facility] Last Admin: 09/14/19 10:27 Dose: 40 meq Senna (Senna -) 2 tab PO HS PRN PRN Reason: CONSTIPATION Last Admin: 09/04/19 11:29 Dose: 2 tab Sitagliptin Phosphate (Januvia -) 25 mg PO DAILY@0700 [facility] Last Admin: 09/14/19 06:31 Dose: 25 mg Tamsulosin HCl (Flomax -) 0.4 mg PO DAILY@0830 [facility] Last Admin: 09/14/19 10:27 Dose: 0.4 mg - Objective Vital Signs: Vital Signs Temperature 98.6 F 09/14/19 10:00 Pulse Rate 90 09/14/19 10:00 Respiratory Rate 20 09/14/19 10:00 Blood Pressure 138/65 09/14/19 10:00 O2 Sat by Pulse Oximetry (%) 96 09/14/19 10:38 Eyes: Yes: WNL, Conjunctiva Clear, EOM Intact HENT: Yes: WNL, Atraumatic, Normocephalic Neck: Yes: WNL, Supple, Trachea Midline Cardiovascular: Yes: Pulse Irregular Respiratory: Yes: WNL, Regular, CTA Bilaterally Gastrointestinal: Yes: WNL, Normal Bowel Sounds Genitourinary: Yes: WNL Musculoskeletal: Yes: WNL Extremities: Yes: WNL Edema: No Integumentary: Yes: WNL Neurological: Yes: WNL, Alert, Oriented ...Motor Strength: WNL Psychiatric: Yes: WNL Labs: CBC, BMP 09/14/19 07:00 09/14/19 06:55 INR, PTT INR 1.53 (0.83-1.09) H 08/31/19 12:31 Problem List - Problems (1) BEKA (acute kidney injury) Code(s): N17.9 - ACUTE KIDNEY FAILURE, UNSPECIFIED (2) Acute urinary retention Code(s): R33.8 - OTHER RETENTION OF URINE (3) Gross hematuria Code(s): R31.0 - GROSS HEMATURIA (4) Leukocytosis Code(s): D72.829 - ELEVATED WHITE BLOOD CELL COUNT, UNSPECIFIED (5) Abdominal bloating Code(s): R14.0 - ABDOMINAL DISTENSION (GASEOUS) (6) Abdominal discomfort Code(s): R10.9 - UNSPECIFIED ABDOMINAL PAIN (7) Abnormal liver enzymes Code(s): R74.8 - ABNORMAL LEVELS OF OTHER SERUM ENZYMES (8) Acute respiratory failure with hypoxia and hypercapnia Code(s): J96.01 - ACUTE RESPIRATORY FAILURE WITH HYPOXIA; J96.02 - ACUTE RESPIRATORY FAILURE WITH HYPERCAPNIA (9) Anemia Code(s): D64.9 - ANEMIA, UNSPECIFIED Qualifiers: Anemia type: iron deficiency (10) Atrial fibrillation Code(s): I48.91 - UNSPECIFIED ATRIAL FIBRILLATION (11) BPH (benign prostatic hyperplasia) Code(s): N40.0 - BENIGN PROSTATIC HYPERPLASIA WITHOUT LOWER URINRY TRACT SYMP (12) CHF (congestive heart failure) Code(s): I50.9 - HEART FAILURE, UNSPECIFIED Qualifiers: Heart failure type: unspecified Heart failure chronicity: chronic Qualified Code(s): I50.9 - Heart failure, unspecified (13) Chronic combined systolic and diastolic CHF, NYHA class 4 Code(s): I50.42 - CHRONIC COMBINED SYSTOLIC AND DIASTOLIC HRT FAIL (14) Chronic hypoxemic respiratory failure Code(s): J96.11 - CHRONIC RESPIRATORY FAILURE WITH HYPOXIA (15) Depression Code(s): F32.9 - MAJOR DEPRESSIVE DISORDER, SINGLE EPISODE, UNSPECIFIED (16) Diabetes Code(s): E11.9 - TYPE 2 DIABETES MELLITUS WITHOUT COMPLICATIONS Qualifiers: Diabetes mellitus type: other specified (including TAN) Diabetes mellitus long-term insulin use: unspecified long term care social worker insulin use status Diabetes mellitus complication status: with other specified complication Qualified Code (s): E13.69 - Other specified diabetes mellitus with other specified complication (17) Dyspnea Code(s): R06.00 - DYSPNEA, UNSPECIFIED Qualifiers: Dyspnea type: unspecified Qualified Code(s): R06.00 - Dyspnea, unspecified (18) Early satiety Code(s): R68.81 - EARLY SATIETY (19) Elevated troponin Code(s): R74.8 - ABNORMAL LEVELS OF OTHER SERUM ENZYMES (20) Extremity pain Code(s): M79.609 - PAIN IN UNSPECIFIED LIMB (21) Fall Code(s): W19.XXXA - UNSPECIFIED FALL, INITIAL ENCOUNTER (22) Gallstones Code(s): K80.20 - CALCULUS OF GALLBLADDER W/O CHOLECYSTITIS W/O OBSTRUCTION (23) HLD (hyperlipidemia) Code(s): E78.5 - HYPERLIPIDEMIA, UNSPECIFIED (24) Hypertension Code(s): I10 - ESSENTIAL (PRIMARY) HYPERTENSION Qualifiers: Hypertension type: unspecified Qualified Code(s): I10 - Essential (primary ) hypertension (25) Hypomagnesemia Code(s): E83.42 - HYPOMAGNESEMIA (26) Increased oxygen demand Code(s): R06.89 - OTHER ABNORMALITIES OF BREATHING (27) Morbid obesity Code(s): E66.01 - MORBID (SEVERE) OBESITY DUE TO EXCESS CALORIES (28) PSVT (paroxysmal supraventricular tachycardia) Code(s): I47.1 - SUPRAVENTRICULAR TACHYCARDIA (29) Paroxysmal A-fib Code(s): I48.0 - PAROXYSMAL ATRIAL FIBRILLATION (30) Pneumonia Code(s): J18.9 - PNEUMONIA, UNSPECIFIED ORGANISM (31) Prophylactic measure Code(s): Z29.9 - ENCOUNTER FOR PROPHYLACTIC MEASURES, UNSPECIFIED (32) Pulmonary HTN Code(s): I27.2 - OTHER SECONDARY PULMONARY HYPERTENSION * DO NOT USE * (33) Splenic artery aneurysm Code(s): I72.8 - ANEURYSM OF OTHER SPECIFIED ARTERIES (34) Symptomatic anemia Code(s): D64.9 - ANEMIA, UNSPECIFIED (35) Systolic CHF Code(s): I50.20 - UNSPECIFIED SYSTOLIC (CONGESTIVE) HEART FAILURE Assessment/Plan - Problems (1) UTI (urinary tract infection) Code(s): N39.0 - URINARY TRACT INFECTION, SITE NOT SPECIFIED (2) Paroxysmal A-fib Assessment/Plan: On metoprolol for HR control. On apixaban for anticoagulation. ECHO: normal LVEF; moderate TR; mild LAE. Code(s): I48.0 - PAROXYSMAL ATRIAL FIBRILLATION (3) Renal dysfunction Assessment/Plan: Resolved. Code(s): N28.9 - DISORDER OF KIDNEY AND URETER, UNSPECIFIED (4) Obesity (BMI 30.0-34.9) Code(s): E66.9 - OBESITY, UNSPECIFIED (5) Anemia Code(s): D64.9 - ANEMIA, UNSPECIFIED Qualifiers: Anemia type: iron deficiency
--- NOTE | 2019-09-14 13:18 | PN ---
Progress Note (short form) - Note Progress Note: PULMONARY Denies shortness of breath or chest pain. No cough or wheezing. No fevers. Vital Signs Period Temp Pulse Resp BP Sys/Enamorado Pulse Ox Last 24 Hr 97.9 F-98.8 F 70-90 14-20 118-155/63-69 96-96 Intake & Output 09/11/19 09/12/19 09/13/19 09/14/19 23:59 23:59 23:59 23:59 Intake Total 3450 1360 400 Output Total 3900 1200 Balance -450 160 400 Gen: NAD at rest Heart: RRR Lung: decreased breath sounds at the bases Abd: soft, nontender Ext: trace edema CBC, BMP 09/14/19 07:00 09/14/19 06:55 Active Medications Acetaminophen (Tylenol -) 650 mg PO Q6H PRN PRN Reason: PAIN SCALE 1-5 OR FEVER Last Admin: 09/13/19 13:04 Dose: 650 mg Acetaminophen (Tylenol -) 325 mg PO Q4H PRN PRN Reason: PAIN SCALE 6-10 Last Admin: 09/09/19 12:05 Dose: 325 mg Al Hydroxide/Mg Hydroxide (Mylanta Oral Suspension -) 30 ml PO Q6H PRN PRN Reason: DYSPEPSIA Last Admin: 09/09/19 12:07 Dose: 30 ml Albuterol/Ipratropium (Duoneb -) 1 amp NEB Q4H PRN PRN Reason: SHORTNESS OF BREATH Last Admin: 09/14/19 10:39 Dose: 1 amp Amlodipine Besylate (Norvasc -) 5 mg PO DAILY [facility] Last Admin: 09/14/19 10:26 Dose: 5 mg Apixaban (Eliquis -) 5 mg PO BID [facility] Last Admin: 09/14/19 10:26 Dose: 5 mg Aspirin (Ecotrin -) 81 mg PO DAILY [facility] Last Admin: 09/14/19 10:26 Dose: 81 mg Atorvastatin Calcium (Lipitor -) 40 mg PO [facility] Last Admin: 09/13/19 21:09 Dose: 40 mg Azithromycin (Zithromax -) 250 mg PO DAILY [facility] Last Admin: 09/14/19 10:26 Dose: 250 mg Docusate Sodium (Colace -) 300 mg PO [facility] Last Admin: 09/13/19 21:09 Dose: 300 mg Fentanyl (Sublimaze Injection -) 50 mcg IVPUSH [id number] PRN PRN Reason: PAIN-PACU ORDER X 4 DOSES ONLY Last Admin: 09/05/19 16:00 Dose: 50 mcg Ferrous Sulfate (Feosol -) 325 mg PO BID [facility] Last Admin: 09/14/19 10:26 Dose: 325 mg Furosemide (Lasix Injection -) 40 mg IVPUSH DAILY [facility] Last Admin: 09/14/19 10:27 Dose: 40 mg Gabapentin (Neurontin -) 300 mg PO TID [facility] Last Admin: 09/14/19 06:31 Dose: 300 mg Ceftriaxone Sodium 1 gm/ (Dextrose) 50 mls @ 200 mls/hr IVPB DAILY [facility]; Protocol Last Admin: 09/14/19 10:31 Dose: 200 mls/hr Lidocaine (Lidoderm Patch -) 1 patch TP DAILY [facility] Last Admin: 09/14/19 10:28 Dose: 1 patch Magnesium Hydroxide (Milk Of Magnesia -) 30 ml PO DAILY PRN PRN Reason: CONSTIPATION Last Admin: 09/09/19 09:37 Dose: 30 ml Melatonin (Melatonin) 3 mg PO HS [facility] Last Admin: 09/13/19 21:09 Dose: 3 mg Metoprolol Tartrate (Lopressor -) 25 mg PO BID [facility] Last Admin: 09/14/19 10:26 Dose: 25 mg Mineral Oil (Fleet Mineral Oil Rectal Enema -) 133 ml [place] NOW PRN PRN Reason: CONSTIPATION Miscellaneous (Lidoderm Patch Removal) 1 each MC DAILY@2200 [facility] Last Admin: 09/13/19 21:11 Dose: 1 each Multivitamins/Minerals/Vitamin C (Tab-A-Vit -) 1 tab PO DAILY [facility] Last Admin: 09/14/19 10:26 Dose: 1 tab Ondansetron HCl (Zofran Injection) 4 mg IVPUSH Q6H PRN PRN Reason: NAUSEA AND/OR VOMITING Last Admin: 09/05/19 16:45 Dose: 4 mg Phenazopyridine HCl (Pyridium -) 200 mg PO TID [facility] Last Admin: 09/14/19 06:32 Dose: 200 mg Polyethylene Glycol (Miralax (For Daily Use) -) 17 gm PO DAILY [facility] Last Admin: 09/14/19 10:32 Dose: 17 gm Potassium Chloride (K-Dur -) 40 meq PO DAILY [facility] Last Admin: 09/14/19 10:27 Dose: 40 meq Senna (Senna -) 2 tab PO HS PRN PRN Reason: CONSTIPATION Last Admin: 09/04/19 11:29 Dose: 2 tab Sitagliptin Phosphate (Januvia -) 25 mg PO DAILY@0700 [facility] Last Admin: 09/14/19 06:31 Dose: 25 mg Tamsulosin HCl (Flomax -) 0.4 mg PO DAILY@0830 [facility] Last Admin: 09/14/19 10:27 Dose: 0.4 mg A/P Acute on Chronic Diastolic Heart Failure Acute Kidney Injury Atrial Fibrillation BPH s/p Cystoscopy/TURP Hematuria UTI Anemia DM - continue lasix - monitor urine output, creatinine - daily weights - O2 to keep SpO2 >90% - rate control - continue anticoagulation - monitor H/H - complete antibiotics - DVT prophylaxis
[2019-09-14] MEDS ORDERED: PT OWN MED DRAWER 7, Y5N ONE ×2 (14:35→19:47)
--- NOTE | 2019-09-14 20:27 | PN ---
Physical Exam: SUBJECTIVE: Patient seen and examined at bedside. Feels relatively well at the moment. OBJECTIVE: Vital Signs Period Temp Pulse Resp BP Sys/Enamorado Pulse Ox Last 24 Hr 97.6 F-98.6 F 76-101 14-20 122-155/62-96 95-96 Gen: AAOx3, nad, sitting at bedside HEENT: EOMI, moist membranes, no erythema Neck: supple, no jvd, no bruits, central trachea, no thyromegally Cardio: rrr, normal s1s2, no mrg noted Abd: soft, nontender, nondistended, normal bs, normal testicular exam Ext: no edema Laboratory Results - last 24 hr 09/12/19 09/14/19 09/14/19 11:30 06:29 06:55 WBC RBC Hgb Hct MCV MCH MCHC RDW Plt Count MPV Absolute Neuts (auto) Neutrophils % Lymphocytes % Monocytes % Eosinophils % Basophils % Nucleated RBC % Sodium 143 Potassium 4.4 Chloride 105 Carbon Dioxide 32 Anion Gap 5 L BUN 16.6 Creatinine 1.0 Est GFR (CKD-EPI)AfAm 83.77 Est GFR (CKD-EPI)NonAf 72.28 POC Glucometer 95 Random Glucose 92 Calcium 9.1 Total Bilirubin 0.4 AST 9 L ALT 12 L Alkaline Phosphatase 156 H Total Protein 6.0 L Albumin 2.7 L Stool Occult Blood Negative 09/14/19 07:00 WBC 10.6 H RBC 2.69 L Hgb 8.4 L Hct 25.4 L MCV 94.3 MCH 31.0 MCHC 32.9 RDW 18.3 H Plt Count 409 MPV 7.4 L Absolute Neuts (auto) 9.0 H Neutrophils % 84.4 H Lymphocytes % 8.3 Monocytes % 4.3 Eosinophils % 2.4 Basophils % 0.6 Nucleated RBC % 0 Sodium Potassium Chloride Carbon Dioxide Anion Gap BUN Creatinine Est GFR (CKD-EPI)AfAm Est GFR (CKD-EPI)NonAf POC Glucometer Random Glucose Calcium Total Bilirubin AST ALT Alkaline Phosphatase Total Protein Albumin Stool Occult Blood Active Medications Generic Name Dose Route Start Last Admin Trade Name Freq PRN Reason Stop Dose Admin Acetaminophen 650 mg 09/05/19 14:01 09/13/19 13:04 Tylenol - PO 650 mg Q6H PRN Administration PAIN SCALE 1-5 OR FEVER Acetaminophen 325 mg 09/05/19 14:08 09/09/19 12:05 Tylenol - PO 325 mg Q4H PRN Administration PAIN SCALE 6-10 Al Hydroxide/Mg Hydroxide 30 ml 08/31/19 18:00 09/09/19 12:07 Mylanta Oral Suspension - PO 30 ml Q6H PRN Administration DYSPEPSIA Albuterol/Ipratropium 1 amp 09/13/19 10:40 09/14/19 18:44 Duoneb - NEB 1 amp Q4H PRN Administration SHORTNESS OF BREATH Amlodipine Besylate 5 mg 09/01/19 10:00 09/14/19 10:26 Norvasc - PO 5 mg DAILY [facility] Administration Apixaban 5 mg 08/31/19 22:00 09/14/19 10:26 Eliquis - PO 5 mg BID [facility] Administration Aspirin 81 mg 09/01/19 10:00 09/14/19 10:26 Ecotrin - PO 81 mg DAILY [facility] Administration Atorvastatin Calcium 40 mg 08/31/19 22:00 09/13/19 21:09 Lipitor - PO 40 mg HS [facility] Administration Azithromycin 250 mg 09/12/19 10:00 09/14/19 10:26 Zithromax - PO 250 mg DAILY [facility] Administration Docusate Sodium 300 mg 08/31/19 22:00 09/13/19 21:09 Colace - PO 300 mg HS [facility] Administration Fentanyl 50 mcg 09/05/19 14:26 09/05/19 16:00 Sublimaze Injection - IVPUSH 50 mcg [id number] PRN Administration PAIN-PACU ORDER X 4 DOSES ONLY Ferrous Sulfate 325 mg 09/03/19 22:00 09/14/19 10:26 Feosol - PO 325 mg BID [facility] Administration Furosemide 40 mg 09/14/19 10:00 09/14/19 10:27 Lasix Injection - IVPUSH 40 mg DAILY [facility] Administration Gabapentin 300 mg 08/31/19 22:00 09/14/19 14:38 Neurontin - PO 300 mg TID [facility] Administration Ceftriaxone Sodium 1 gm/ 50 mls @ 200 mls/hr 09/08/19 13:15 09/14/19 10:31 Dextrose IVPB 200 mls/hr DAILY [facility] Administration Protocol Lidocaine 1 patch 09/01/19 10:00 09/14/19 10:28 Lidoderm Patch - TP 1 patch DAILY [facility] Administration Magnesium Hydroxide 30 ml 09/07/19 15:10 09/09/19 09:37 Milk Of Magnesia - PO 30 ml DAILY PRN Administration CONSTIPATION Melatonin 3 mg 08/31/19 22:00 09/13/19 21:09 Melatonin PO 3 mg HS [facility] Administration Metoprolol Tartrate 25 mg 08/31/19 22:00 09/14/19 10:26 Lopressor - PO 25 mg BID [facility] Administration Mineral Oil 133 ml 09/09/19 13:02 Fleet Mineral Oil Rectal Enema - IN NOW PRN CONSTIPATION Miscellaneous 1 each 09/01/19 22:00 09/13/19 21:11 Lidoderm Patch Removal MC 1 each DAILY@2200 [facility] Administration Multivitamins/Minerals/Vitamin C 1 tab 09/01/19 10:00 09/14/19 10:26 Tab-A-Vit - PO 1 tab DAILY [facility] Administration Ondansetron HCl 4 mg 09/05/19 14:26 09/05/19 16:45 Zofran Injection IVPUSH 4 mg Q6H PRN Administration NAUSEA AND/OR VOMITING Phenazopyridine HCl 200 mg 09/07/19 22:00 09/14/19 14:38 Pyridium - PO 200 mg TID [facility] Administration Polyethylene Glycol 17 gm 09/01/19 10:00 09/14/19 10:32 Miralax (For Daily Use) - PO 17 gm DAILY [facility] Administration Potassium Chloride 40 meq 09/01/19 10:00 09/14/19 10:27 K-Dur - PO 40 meq DAILY [facility] Administration Senna 2 tab 09/04/19 10:32 09/04/19 11:29 Senna - PO 2 tab HS PRN Administration CONSTIPATION Sitagliptin Phosphate 25 mg 09/04/19 07:00 09/14/19 06:31 Januvia - PO 25 mg DAILY@0700 [facility] Administration Tamsulosin HCl 0.4 mg 09/01/19 08:30 09/14/19 10:27 Flomax - PO 0.4 mg DAILY@0830 [facility] Administration ASSESSMENT/PLAN: Pt is a 78 y/o M with PMH DM, CHF, Afib, Anemia who presented to the ED sent from [place] with complaint of hematuria. Heme/Onc was called because of incidental finding of lesions on the sacrum. Sacral jas lesion -r/o Paget's -AlkP elevated -GGT pending -bone scan pending Prostate enlargement -r/o CA -PSA Visit type - Emergency Visit Emergency Visit: No - New Patient This patient is new to me today: Yes Date on this admission: 09/14/19 - Critical Care Critical Care patient: No ATTENDING PHYSICIAN STATEMENT I saw and evaluated the patient. I reviewed the resident's note and discussed the case with the resident. I agree with the resident's findings and plan as documented. SUBJECTIVE: OBJECTIVE: ASSESSMENT AND PLAN:
[2019-09-14] MEDS: MELATONIN 1 MG TABLET PO SCH (22:07)
[2019-09-14] MEDS: DOCUSATE SODIUM 100 MG CAPSULE (FP) PO SCH (22:07)
[2019-09-14] MEDS: ATORVASTATIN CA 40 MG TABLET (FP) PO SCH (22:07)
[2019-09-14] MEDS: LIDOCAINE PATCH REMOVAL MC SCH (22:08)
[2019-09-15] MEDS: GABAPENTIN 300 MG CAPSULE (FP) PO SCH ×3 (06:39→21:31)
[2019-09-15] MEDS: PHENAZOPYRIDINE HCL 100 MG TABLET (FP) PO SCH ×3 (06:39→21:33)
[2019-09-15] MEDS: ALBUTEROL SO4 2.5/IPRATROPIUM 0.5 INH SOL 3 ML VIAL.NEB. NEB PRN (08:15)
[2019-09-15] MEDS ORDERED: PT OWN MED DRAWER 7, Y5N ONE ×4 (08:35→21:23)
[2019-09-15] MEDS ORDERED: cefTRIAXone SODIUM 1 GM VIAL ONE (08:35)
[2019-09-15] MEDS ORDERED: DEXTROSE 5%-WATER - 50 ML IVPB ONE (08:36)
[2019-09-15 09:15] LABS: BASO % 0.7 % (0-2.0); EOS % 2.5 % (0-4.5); HEMATOCRIT 27.8 % (35.4-49); HEMOGLOBIN 8.7 GM/dL (11.7-16.9); LYMPH % 8.3 % (8-40); MCH 30.1 pg (25.7-33.7); MCHC 31.1 g/dl (32.0-35.9); MEAN CELL VOLUME 96.6 fl (80-96); MEAN PLT VOLUME 7.4 fl (7.5-11.1); MONO % 4.1 % (3.8-10.2); NEUT % 84.4 % (42.8-82.8); PLATELET COUNT 382 K/MM3 (134-434); RBC 2.88 M/mm3 (4.00-5.60); RDW 18.7 % (11.9-15.9); WHITE BLOOD COUNT 10.5 K/mm3 (4.0-10.0)
[2019-09-15 09:45] LABS: ALBUMIN 2.8 g/dl (3.4-5.0); BILIRUBIN,TOTAL 0.5 mg/dL (0.2-1); BLOOD UREA NITROGEN 16.7 mg/dL (7-18); CALCIUM 9.2 mg/dL (8.5-10.1); CREATININE 1.1 mg/dL (0.55-1.3); POTASSIUM 4.1 mmol/L (3.5-5.1); TOT PROT 6.1 g/dl (6.4-8.2)
--- NOTE | 2019-09-15 10:12 | PN ---
Progress Note (short form) - Note Progress Note: PULMONARY Denies shortness of breath or chest pain. No cough or wheezing. Used BiPAP overnight. Vital Signs Period Temp Pulse Resp BP Sys/Enamorado Pulse Ox Last 24 Hr 97.6 F-98.8 F 68-101 14-20 113-143/57-96 96-96 Gen: NAD at rest Heart: RRR Lung: decreased breath sounds at the bases Abd: soft, nontender Ext: trace edema CBC, BMP 09/15/19 08:20 09/15/19 08:20 Active Medications Acetaminophen (Tylenol -) 650 mg PO Q6H PRN PRN Reason: PAIN SCALE 1-5 OR FEVER Last Admin: 09/13/19 13:04 Dose: 650 mg Acetaminophen (Tylenol -) 325 mg PO Q4H PRN PRN Reason: PAIN SCALE 6-10 Last Admin: 09/09/19 12:05 Dose: 325 mg Al Hydroxide/Mg Hydroxide (Mylanta Oral Suspension -) 30 ml PO Q6H PRN PRN Reason: DYSPEPSIA Last Admin: 09/09/19 12:07 Dose: 30 ml Albuterol/Ipratropium (Duoneb -) 1 amp NEB Q4H PRN PRN Reason: SHORTNESS OF BREATH Last Admin: 09/15/19 08:15 Dose: 1 amp Amlodipine Besylate (Norvasc -) 5 mg PO DAILY [facility] Last Admin: 09/14/19 10:26 Dose: 5 mg Apixaban (Eliquis -) 5 mg PO BID [facility] Last Admin: 09/14/19 22:07 Dose: 5 mg Aspirin (Ecotrin -) 81 mg PO DAILY [facility] Last Admin: 09/14/19 10:26 Dose: 81 mg Atorvastatin Calcium (Lipitor -) 40 mg PO HS [facility] Last Admin: 09/14/19 22:07 Dose: 40 mg Azithromycin (Zithromax -) 250 mg PO DAILY [facility] Last Admin: 09/14/19 10:26 Dose: 250 mg Docusate Sodium (Colace -) 300 mg PO [facility] Last Admin: 09/14/19 22:07 Dose: 300 mg Fentanyl (Sublimaze Injection -) 50 mcg IVPUSH [id number] PRN PRN Reason: PAIN-PACU ORDER X 4 DOSES ONLY Last Admin: 09/05/19 16:00 Dose: 50 mcg Ferrous Sulfate (Feosol -) 325 mg PO BID [facility] Last Admin: 09/14/19 22:07 Dose: 325 mg Furosemide (Lasix Injection -) 40 mg IVPUSH DAILY [facility] Last Admin: 09/14/19 10:27 Dose: 40 mg Gabapentin (Neurontin -) 300 mg PO TID [facility] Last Admin: 09/15/19 06:39 Dose: 300 mg Ceftriaxone Sodium 1 gm/ (Dextrose) 50 mls @ 200 mls/hr IVPB DAILY [facility]; Protocol Last Admin: 09/14/19 10:31 Dose: 200 mls/hr Lidocaine (Lidoderm Patch -) 1 patch TP DAILY [facility] Last Admin: 09/14/19 10:28 Dose: 1 patch Magnesium Hydroxide (Milk Of Magnesia -) 30 ml PO DAILY PRN PRN Reason: CONSTIPATION Last Admin: 09/09/19 09:37 Dose: 30 ml Melatonin (Melatonin) 3 mg PO HS [facility] Last Admin: 09/14/19 22:07 Dose: 3 mg Metoprolol Tartrate (Lopressor -) 25 mg PO BID [facility] Last Admin: 09/14/19 22:07 Dose: 25 mg Mineral Oil (Fleet Mineral Oil Rectal Enema -) 133 ml [place] NOW PRN PRN Reason: CONSTIPATION Miscellaneous (Lidoderm Patch Removal) 1 each MC DAILY@2200 [facility] Last Admin: 09/14/19 22:08 Dose: 1 each Multivitamins/Minerals/Vitamin C (Tab-A-Vit -) 1 tab PO DAILY [facility] Last Admin: 09/14/19 10:26 Dose: 1 tab Ondansetron HCl (Zofran Injection) 4 mg IVPUSH Q6H PRN PRN Reason: NAUSEA AND/OR VOMITING Last Admin: 09/05/19 16:45 Dose: 4 mg Phenazopyridine HCl (Pyridium -) 200 mg PO TID [facility] Last Admin: 09/15/19 06:39 Dose: 200 mg Polyethylene Glycol (Miralax (For Daily Use) -) 17 gm PO DAILY [facility] Last Admin: 09/14/19 10:32 Dose: 17 gm Potassium Chloride (K-Dur -) 40 meq PO DAILY [facility] Last Admin: 09/14/19 10:27 Dose: 40 meq Senna (Senna -) 2 tab PO HS PRN PRN Reason: CONSTIPATION Last Admin: 09/04/19 11:29 Dose: 2 tab Sitagliptin Phosphate (Januvia -) 25 mg PO DAILY@0700 [facility] Last Admin: 09/15/19 06:39 Dose: 25 mg Tamsulosin HCl (Flomax -) 0.4 mg PO DAILY@0830 [facility] Last Admin: 09/14/19 10:27 Dose: 0.4 mg A/P Acute on Chronic Diastolic Heart Failure Acute Kidney Injury Atrial Fibrillation BPH s/p Cystoscopy/TURP Hematuria UTI Anemia DM - continue lasix - monitor urine output, creatinine - daily weights - O2 to keep SpO2 >90% - rate control - continue anticoagulation - monitor H/H - complete antibiotics - DVT prophylaxis
[2019-09-15] MEDS ORDERED: ALBUTEROL SO4 0.083% IH SOL 2.5 MG/3 ML VIAL.NEB. NEB PRN (10:13)
[2019-09-15] MEDS: APIXABAN 5 MG TABLET PO SCH ×2 (10:43→21:31)
[2019-09-15] MEDS: POTASSIUM CHLORIDE TABS 20 MEQ TABLET.ER (FP) PO SCH (10:43)
[2019-09-15] MEDS: TAMSULOSIN HCL 0.4 MG CAP PO SCH (10:44)
[2019-09-15] MEDS: AZITHROMYCIN 250 MG TABLET PO SCH (10:44)
[2019-09-15] MEDS: amLODIPine BESYLATE 5 MG TABLET (FP) PO SCH (10:44)
[2019-09-15] MEDS: ASPIRIN COATED 81 MG TABLET.EC PO SCH (10:45)
[2019-09-15] MEDS: MULTIVITAMINS (DAILY MVI) TABLET (FP) PO SCH (10:45)
[2019-09-15] MEDS: FERROUS SO4 325 MG TABLET (FP) PO SCH ×2 (10:45→21:31)
[2019-09-15] MEDS: METOPROLOL TARTRATE 25 MG TABLET (FP) PO SCH ×2 (10:45→21:30)
[2019-09-15] MEDS: FUROSEMIDE 40 MG/4 ML INJECTABLE VIAL IVPUSH SCH (10:47)
[2019-09-15] MEDS: CEFTRIAXONE 1 GM in DEXTROSE 5%-WATER - 50 ML IVPB SCH (10:47)
[2019-09-15] MEDS: ALBUTEROL SO4 2.5/IPRATROPIUM 0.5 INH SOL 3 ML VIAL.NEB. NEB SCH ×3 (11:58→21:04)
--- NOTE | 2019-09-15 12:16 | PN ---
Progress Note, Physician Chief Complaint: Hematuria UTI BEKA History of Present Illness: Previous notes and events reviewed awake and alert NAD sts SOB is improving BIpap HS Bone scan done, official results pending - Current Medication List Current Medications: Active Medications Acetaminophen (Tylenol -) 650 mg PO Q6H PRN PRN Reason: PAIN SCALE 1-5 OR FEVER Last Admin: 09/13/19 13:04 Dose: 650 mg Acetaminophen (Tylenol -) 325 mg PO Q4H PRN PRN Reason: PAIN SCALE 6-10 Last Admin: 09/09/19 12:05 Dose: 325 mg Al Hydroxide/Mg Hydroxide (Mylanta Oral Suspension -) 30 ml PO Q6H PRN PRN Reason: DYSPEPSIA Last Admin: 09/09/19 12:07 Dose: 30 ml Albuterol Sulfate (Ventolin 0.083% Nebulizer Soln -) 1 amp NEB Q4H PRN PRN Reason: SHORT OF BREATH/WHEEZING Albuterol/Ipratropium (Duoneb -) 1 amp NEB RQID [facility] Last Admin: 09/15/19 11:58 Dose: 1 amp Amlodipine Besylate (Norvasc -) 5 mg PO DAILY [facility] Last Admin: 09/15/19 10:44 Dose: 5 mg Apixaban (Eliquis -) 5 mg PO BID [facility] Last Admin: 09/15/19 10:43 Dose: 5 mg Aspirin (Ecotrin -) 81 mg PO DAILY [facility] Last Admin: 09/15/19 10:45 Dose: 81 mg Atorvastatin Calcium (Lipitor -) 40 mg PO [facility] Last Admin: 09/14/19 22:07 Dose: 40 mg Azithromycin (Zithromax -) 250 mg PO DAILY [facility] Last Admin: 09/15/19 10:44 Dose: 250 mg Docusate Sodium (Colace -) 300 mg PO [facility] Last Admin: 09/14/19 22:07 Dose: 300 mg Fentanyl (Sublimaze Injection -) 50 mcg IVPUSH [id number] PRN PRN Reason: PAIN-PACU ORDER X 4 DOSES ONLY Last Admin: 09/05/19 16:00 Dose: 50 mcg Ferrous Sulfate (Feosol -) 325 mg PO BID [facility] Last Admin: 09/15/19 10:45 Dose: 325 mg Furosemide (Lasix Injection -) 40 mg IVPUSH DAILY [facility] Last Admin: 09/15/19 10:47 Dose: 40 mg Gabapentin (Neurontin -) 300 mg PO TID [facility] Last Admin: 09/15/19 06:39 Dose: 300 mg Ceftriaxone Sodium 1 gm/ (Dextrose) 50 mls @ 200 mls/hr IVPB DAILY [facility]; Protocol Last Admin: 09/15/19 10:47 Dose: 200 mls/hr Lidocaine (Lidoderm Patch -) 1 patch TP DAILY [facility] Last Admin: 09/14/19 10:28 Dose: 1 patch Magnesium Hydroxide (Milk Of Magnesia -) 30 ml PO DAILY PRN PRN Reason: CONSTIPATION Last Admin: 09/09/19 09:37 Dose: 30 ml Melatonin (Melatonin) 3 mg PO HS [facility] Last Admin: 09/14/19 22:07 Dose: 3 mg Metoprolol Tartrate (Lopressor -) 25 mg PO BID [facility] Last Admin: 09/15/19 10:45 Dose: 25 mg Mineral Oil (Fleet Mineral Oil Rectal Enema -) 133 ml [place] NOW PRN PRN Reason: CONSTIPATION Miscellaneous (Lidoderm Patch Removal) 1 each MC DAILY@2200 [facility] Last Admin: 09/14/19 22:08 Dose: 1 each Multivitamins/Minerals/Vitamin C (Tab-A-Vit -) 1 tab PO DAILY [facility] Last Admin: 09/15/19 10:45 Dose: 1 tab Ondansetron HCl (Zofran Injection) 4 mg IVPUSH Q6H PRN PRN Reason: NAUSEA AND/OR VOMITING Last Admin: 09/05/19 16:45 Dose: 4 mg Phenazopyridine HCl (Pyridium -) 200 mg PO TID [facility] Last Admin: 09/15/19 06:39 Dose: 200 mg Polyethylene Glycol (Miralax (For Daily Use) -) 17 gm PO DAILY [facility] Last Admin: 09/14/19 10:32 Dose: 17 gm Potassium Chloride (K-Dur -) 40 meq PO DAILY [facility] Last Admin: 09/15/19 10:43 Dose: 40 meq Senna (Senna -) 2 tab PO HS PRN PRN Reason: CONSTIPATION Last Admin: 09/04/19 11:29 Dose: 2 tab Sitagliptin Phosphate (Januvia -) 25 mg PO DAILY@0700 [facility] Last Admin: 09/15/19 06:39 Dose: 25 mg Tamsulosin HCl (Flomax -) 0.4 mg PO DAILY@0830 [facility] Last Admin: 09/15/19 10:44 Dose: 0.4 mg - Objective Vital Signs: Vital Signs Temperature 98.5 F 09/15/19 06:00 Pulse Rate 78 09/15/19 06:00 Respiratory Rate 20 09/15/19 06:00 Blood Pressure 123/57 L 09/15/19 06:00 O2 Sat by Pulse Oximetry (%) 96 09/15/19 05:00 Constitutional: Yes: No Distress, Calm Eyes: Yes: Conjunctiva Clear HENT: Yes: Atraumatic Cardiovascular: Yes: Regular Rate and Rhythm Respiratory: Yes: Regular, Diminished, On Nasal O2 Gastrointestinal: Yes: Normal Bowel Sounds, Soft Genitourinary: Yes: Incontinence Musculoskeletal: Yes: Muscle Weakness Extremities: Yes: WNL Edema: No Neurological: Yes: Alert, Oriented Psychiatric: Yes: Alert, Oriented Labs: CBC, BMP 09/15/19 08:20 09/15/19 08:20 INR, PTT INR 1.53 (0.83-1.09) H 08/31/19 12:31 Microbiology 08/31/19 20:00 Blood - Peripheral Venous Blood Culture - Final NO GROWTH AFTER 5 DAYS INCUBATION 08/31/19 20:00 Blood - Peripheral Venous Blood Culture - Final NO GROWTH AFTER 5 DAYS INCUBATION 08/31/19 12:39 Urine - Urine Iqbal Urine Culture - Final Proteus Mirabilis Problem List - Problems (1) Acute urinary retention Assessment/Plan: -Urology on board -Tamsulosin Code(s): R33.8 - OTHER RETENTION OF URINE (2) Gross hematuria Assessment/Plan: -Urology on board -resolved -s/p Cystourethroscopy, TURP/TUVP -monitor Hg daily -FC and CBI discontinued Code(s): R31.0 - GROSS HEMATURIA (3) Abdominal discomfort Assessment/Plan: -Abd/Pelvic CT scan shows LLL consolidation and small pleural effusion, trace right pleural effusion, basilar atelectasis, cholelithiasis, bony changes within the sacrum pelvis that could represent Paget's disease although bony metastases cannot be excluded -Oncology on board -Bone scan done, official results pending -PSA pending Code(s): R10.9 - UNSPECIFIED ABDOMINAL PAIN (4) Anemia Assessment/Plan: -Hg 8.7 -monitor Hg daily -transfuse for Hg <7.0 -Ferrous Sulfate -Hematology on board Code(s): D64.9 - ANEMIA, UNSPECIFIED Qualifiers: Anemia type: iron deficiency (5) Atrial fibrillation Assessment/Plan: -Metoprolol -Eliquis Code(s): I48.91 - UNSPECIFIED ATRIAL FIBRILLATION (6) BPH (benign prostatic hyperplasia) Assessment/Plan: -Tamsulosin -Urology consult -PSA pending Code(s): N40.0 - BENIGN PROSTATIC HYPERPLASIA WITHOUT LOWER URINRY TRACT SYMP (7) CHF (congestive heart failure) Assessment/Plan: -Furosemide -daily weights -strict I&O -fluid restriction Code(s): I50.9 - HEART FAILURE, UNSPECIFIED Qualifiers: Heart failure type: unspecified Heart failure chronicity: chronic Qualified Code(s): I50.9 - Heart failure, unspecified (8) Diabetes Assessment/Plan: [facility] -HgA1c -Sitagliptan Code(s): E11.9 - TYPE 2 DIABETES MELLITUS WITHOUT COMPLICATIONS Qualifiers: Diabetes mellitus type: other specified (including TAN) Diabetes mellitus penitentiary insulin use: unspecified penitentiary insulin use status Diabetes mellitus complication status: with other specified complication Qualified Code (s): E13.69 - Other specified diabetes mellitus with other specified complication (9) HLD (hyperlipidemia) Assessment/Plan: -Atorvastatin Code(s): E78.5 - HYPERLIPIDEMIA, UNSPECIFIED (10) Hypertension Assessment/Plan: -Amlodipine, Imdur Code(s): I10 - ESSENTIAL (PRIMARY) HYPERTENSION Qualifiers: Hypertension type: unspecified Qualified Code(s): I10 - Essential (primary ) hypertension (11) BEKA (acute kidney injury) Assessment/Plan: -renal on board -BUN/Cr 16.7/1.1 -monitor renal function Code(s): N17.9 - ACUTE KIDNEY FAILURE, UNSPECIFIED (12) Leukocytosis Assessment/Plan: -ID consult -WBC 10.5 -UA shows 3+ leuks, 3+ bilirubin, 3+ protein, 2+ ketones, 3+ blood -UC positive -afebrile -Ceftriaxone, Azithromycin -CXR shows left base pleural reaction with atelectasis and/or infiltrate Code(s): D72.829 - ELEVATED WHITE BLOOD CELL COUNT, UNSPECIFIED (13) UTI (urinary tract infection) Assessment/Plan: -ID consult -WBC 16.9 -UA shows 3+ leuks, 3+ bilirubin, 3+ protein, 2+ ketones, 3+ blood -UC positive -afebrile -Ceftriaxone Code(s): N39.0 - URINARY TRACT INFECTION, SITE NOT SPECIFIED (14) Pneumonia Assessment/Plan: -ID consult -WBC 10.5 -afebrile -Ceftriaxone, Azithromycin -CXR shows left base pleural reaction with atelectasis and/or infiltrate Code(s): J18.9 - PNEUMONIA, UNSPECIFIED ORGANISM Assessment/Plan see problem list dvt ppx
[2019-09-15] MEDS: POLYETHYLENE GLYCOL 3350 119 GM BTL PO SCH (12:30)
[2019-09-15] MEDS: LIDOCAINE 5% TOPICAL PATCH TP SCH (12:31)
[2019-09-15] MEDS: ATORVASTATIN CA 40 MG TABLET (FP) PO SCH (21:30)
[2019-09-15] MEDS: DOCUSATE SODIUM 100 MG CAPSULE (FP) PO SCH (21:32)
[2019-09-15] MEDS: LIDOCAINE PATCH REMOVAL MC SCH (21:32)
[2019-09-15] MEDS: MELATONIN 1 MG TABLET PO SCH (21:32)
--- NOTE | 2019-09-16 00:12 | PN ---
Progress Note (short form) - Note Progress Note: Patient seen and examined Feels OK AFVSS Cor: RSR, No murmurs, No gallops Lungs: Clear to P&A Abd: Soft, Normal bowel sounds, No organomegaly Ext:No significant edema Labs/MEds reviewed A/P 78 y/o patient with hematuria/BPH , s/p TURP, HTN,HLD, DM< CHF, afib On asa/eliquis/feosol IRon saturation low B12 /folate/TSH--nl IGG k monoclonal protein --SFLCA --nl ratio PAtient not clear about h/o prostate cancer CT pelvis shows -- lytic/sclerotic changes in sacrum and pelvis. ? Pagets Will check bone scan PSA normal
[2019-09-16] MEDS ORDERED: PT OWN MED DRAWER 7, Y5N ONE ×2 (05:42→14:30)
[2019-09-16] MEDS: PHENAZOPYRIDINE HCL 100 MG TABLET (FP) PO SCH ×3 (06:18→21:08)
[2019-09-16] MEDS: GABAPENTIN 300 MG CAPSULE (FP) PO SCH ×3 (06:18→21:06)
[2019-09-16] MEDS: ALBUTEROL SO4 2.5/IPRATROPIUM 0.5 INH SOL 3 ML VIAL.NEB. NEB SCH ×4 (07:40→19:57)
[2019-09-16 08:11] LABS: HEMATOCRIT 24.8 % (35.4-49); MCH 30.6 pg (25.7-33.7); MCHC 32.3 g/dl (32.0-35.9); MEAN CELL VOLUME 94.6 fl (80-96); MEAN PLT VOLUME 7.2 fl (7.5-11.1); PLATELET COUNT 355 K/MM3 (134-434); RBC 2.63 M/mm3 (4.00-5.60); RDW 18.6 % (11.9-15.9); WHITE BLOOD COUNT 10.6 K/mm3 (4.0-10.0)
[2019-09-16 08:35] LABS: ALBUMIN 2.8 g/dl (3.4-5.0); BILIRUBIN,TOTAL 0.5 mg/dL (0.2-1); CALCIUM 9.3 mg/dL (8.5-10.1); CREATININE 1.1 mg/dL (0.55-1.3); TOT PROT 5.9 g/dl (6.4-8.2)
[2019-09-16] MEDS: POTASSIUM CHLORIDE TABS 20 MEQ TABLET.ER (FP) PO SCH (11:21)
[2019-09-16] MEDS: FERROUS SO4 325 MG TABLET (FP) PO SCH ×2 (11:21→21:05)
[2019-09-16] MEDS: TAMSULOSIN HCL 0.4 MG CAP PO SCH (11:21)
[2019-09-16] MEDS: APIXABAN 5 MG TABLET PO SCH ×2 (11:23→21:05)
[2019-09-16] MEDS: MULTIVITAMINS (DAILY MVI) TABLET (FP) PO SCH (11:23)
[2019-09-16] MEDS: ASPIRIN COATED 81 MG TABLET.EC PO SCH (11:23)
[2019-09-16] MEDS: AZITHROMYCIN 250 MG TABLET PO SCH (11:23)
[2019-09-16] MEDS: amLODIPine BESYLATE 5 MG TABLET (FP) PO SCH (11:23)
[2019-09-16] MEDS: LIDOCAINE 5% TOPICAL PATCH TP SCH (11:24)
[2019-09-16] MEDS: METOPROLOL TARTRATE 25 MG TABLET (FP) PO SCH ×2 (11:24→21:06)
[2019-09-16] MEDS: POLYETHYLENE GLYCOL 3350 119 GM BTL PO SCH (11:28)
--- NOTE | 2019-09-16 11:44 | CON.GI ---
Consult Consult Specialty:: GI: For Dr. Elizabeth Referred by:: Dr. Cortez Reason for Consultation:: Anemia - History of Present Illness Chief Complaint: Hematuria History of Present Illness: 78M admitted for evaluation of gross/ hematuria. Had TURP. Called to evaluate anemia. Noted guaiac negative 09/12. No abdominal compaints. Had EGD/ Colonoscopy performed by Dr. Elizabeth. Results are scanned into [facility] and copy placed in the procedural section of the physical chart - Past Medical History LEGAL ARBITRATOR: No: Dementia Cardio/Vascular: Yes: AFIB, CAD, CHF (low normal LVEF on 02/25 ECHO), HTN, Hyperlipdemia, Pulmonary Hypertension Pulmonary: Yes: COPD, O2 Dependent, Other (pulmonary htn) Gastrointestinal: Yes: Other (colon polyps). No: Ascites Hepatobiliary: No: Cirrhosis Renal/: Yes: BPH, Other (prostate ca) Infectious Disease: No: AIDS Psych: No: Addictions Endocrine: Yes: Diabetes Mellitus - Past Surgical History Past Surgical History: Yes: Stent - Alcohol/Substance Use Hx Alcohol Use: No History of Substance Use: reports: None - Smoking History Smoking history: Never smoked Have you smoked in the past 12 months: No Aproximately how many cigarettes per day: 0 - Social History Usual Living Arrangement: With Spouse ADL: Independent History of Recent Travel: No Home Medications - Allergies Allergies/Adverse Reactions: Allergies Allergy/AdvReac Type Severity Reaction Status Date / Time No Known Allergies Allergy Verified 08/31/19 10:49 - Home Medications Home Medications: Ambulatory Orders Alendronate Na [Fosamax (Weekly)] 70 mg PO WEEKLY 01/29/17 Atorvastatin Calcium 40 mg PO DAILY 01/29/17 Isosorbide Mononitrate [Imdur -] 60 mg PO DAILY 01/29/17 Sacubitril/Valsartan [Entresto 24 mg-26 mg Tablet] 1 tab PO BID 01/29/17 Aspirin Coated [Ecotrin -] 81 mg PO DAILY tablet.ec 11/05/17 Amlodipine Besylate 5 mg PO DAILY 05/04/18 Acetaminophen [Tylenol .Regular Strength -] 650 mg PO Q6H PRN tablet 03/07/19 Apixaban [Eliquis -] 5 mg PO BID tablet 03/07/19 Furosemide [Lasix -] 80 mg PO DAILY tablet 03/07/19 Insulin Sliding Scale [Novolog Vial Sliding Scale -] 1 vial SQ ACHS units 03/07 Potassium Chloride [K-Dur -] 40 meq PO DAILY tablet.er 03/07/19 Docusate Sodium [Colace] 300 mg PO HS 06/23/19 Dulcolax 10 mg ME DAILY PRN 06/23/19 Gabapentin 300 mg PO TID 06/23/19 Insulin Glargine,Hum.rec.anlog [Basaglar Kwikpen U-100] 20 unit SQ DAILY Iprat-Albut 0.5-3(2.5) mg/3 ml 3 ml NEB QID 06/23/19 Metolazone 2.5 mg PO ASDIR 06/23/19 Milk of Magnesia 5 5ml PO DAILY PRN 06/23/19 Oxycodone-Acetaminophen 10-325 10 mg PO Q8H PRN 06/23/19 Polyethylene Glycol 3350 [Miralax 119 gm Btl -] 17 gm PO DAILY 06/23/19 Tamsulosin HCl [Flomax] 0.4 mg PO DAILY 06/23/19 Zinc Oxide 20% Topical Oint 1 appful DAILY PRN 06/23/19 Lidocaine 5% Patch [Lidoderm -] 1 patch TP DAILY patch 07/01/19 Digoxin [Lanoxin -] 125 mcg PO DAILY 08/31/19 Mag Hydrox/Al Hydrox/Simeth [Mylanta Oral Suspension -] 30 ml PO QID 08/31/19 Melatonin 3 mg PO HS 08/31/19 Metoprolol Tartrate 25 mg PO BID 08/31/19 Multivitamin [Multiple Vitamins] 1 each PO DAILY 08/31/19 Review of Systems - Review of Systems Constitutional: denies: Chills Respiratory: reports: Cough, SOB Gastrointestinal: denies: Abdominal Pain, Diarrhea, Melena, Nausea, Rectal Bleeding, Vomiting, Vomiting Blood Physical Exam-GI Vital Signs: Vital Signs Temperature 97.7 F 09/16/19 06:00 Pulse Rate 79 09/16/19 06:00 Respiratory Rate 18 09/16/19 06:00 Blood Pressure 125/56 L 09/16/19 06:00 O2 Sat by Pulse Oximetry (%) 95 09/16/19 08:33 Constitutional: Yes: Calm Eyes: No: Sclera Icterus Cardiovascular: Yes: Pulse Irregular, Other (+ gynecomastia) Respiratory: Yes: Diminished (at bases b/l) Gastrointestinal Inspection: No: Distention ...Auscultate: Yes: Normoactive Bowel Sounds ...Palpate: Yes: Soft. No: Hepatomegaly, Splenomegaly, Tenderness Extremities: Yes: Other (left knee swelling) Labs: CBC, BMP 09/16/19 07:40 09/16/19 07:40 INR, PTT INR 1.53 (0.83-1.09) H 08/31/19 12:31 Problem List - Problems (1) Anemia Assessment/Plan: Multifactorial, including gross urinary blood loss No acute GI interventions planned with patient recent evaluated endoscopically by Dr. Elizabeth Advised outpatient follow-up with Dr. Elizabeth Code(s): D64.9 - ANEMIA, UNSPECIFIED
[2019-09-16] MEDS: FUROSEMIDE 40 MG/4 ML INJECTABLE VIAL IVPUSH SCH (11:59)
--- NOTE | 2019-09-16 12:51 | PN ---
Progress Note (short form) - Note Progress Note: PULMONARY OOB TO CHAIR AFEBRILE ANICTERIC DIMINISHED BREATH SOUNDS LEFT BASE S1S2 BS+ OBESE MILD EDEMA LOWER EXT LABS/MEDS/NOTES/IMAGES REVIEWED Problem List - Problems (1) Acute urinary retention Code(s): R33.8 - OTHER RETENTION OF URINE (2) Gross hematuria Code(s): R31.0 - GROSS HEMATURIA (3) Anemia Code(s): D64.9 - ANEMIA, UNSPECIFIED Qualifiers: Anemia type: iron deficiency (4) BPH (benign prostatic hyperplasia) Code(s): N40.0 - BENIGN PROSTATIC HYPERPLASIA WITHOUT LOWER URINRY TRACT SYMP (5) Depression Code(s): F32.9 - MAJOR DEPRESSIVE DISORDER, SINGLE EPISODE, UNSPECIFIED (6) Diabetes Code(s): E11.9 - TYPE 2 DIABETES MELLITUS WITHOUT COMPLICATIONS Qualifiers: Diabetes mellitus type: other specified (including TAN) Diabetes mellitus skilled nursing insulin use: unspecified skilled nursing insulin use status Diabetes mellitus complication status: with other specified complication Qualified Code (s): E13.69 - Other specified diabetes mellitus with other specified complication Assessment/Plan CONGESTIVE CHANGES/LLL PROCESS CHEST ANEMIA KEEP 8GMS OR ABOVE CONTINUE O2/BRONCHODILATORS/ANTIBIOTICS/ANTICOAGULATION/DIURETICS Fabio LEWIS MD Problem List - Problems (1) Acute urinary retention Code(s): R33.8 - OTHER RETENTION OF URINE (2) Gross hematuria Code(s): R31.0 - GROSS HEMATURIA (3) Anemia Code(s): D64.9 - ANEMIA, UNSPECIFIED Qualifiers: Anemia type: iron deficiency (4) BPH (benign prostatic hyperplasia) Code(s): N40.0 - BENIGN PROSTATIC HYPERPLASIA WITHOUT LOWER URINRY TRACT SYMP (5) Depression Code(s): F32.9 - MAJOR DEPRESSIVE DISORDER, SINGLE EPISODE, UNSPECIFIED (6) Diabetes Code(s): E11.9 - TYPE 2 DIABETES MELLITUS WITHOUT COMPLICATIONS Qualifiers: Diabetes mellitus type: other specified (including TAN) 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
[2019-09-16] MEDS: MAG HYDROX/AL HYDROX/SIMETH 30 ML UNIT-DOSE CUP PO PRN (14:05)
--- NOTE | 2019-09-16 15:24 | PN ---
Progress Note, Physician Chief Complaint: Hematuria UTI BEKA History of Present Illness: Previous notes and events reviewed awake and alert OOB to chair NAD sts breathing is the same, denies cough - Current Medication List Current Medications: Active Medications Acetaminophen (Tylenol -) 650 mg PO Q6H PRN PRN Reason: PAIN SCALE 1-5 OR FEVER Last Admin: 09/13/19 13:04 Dose: 650 mg Acetaminophen (Tylenol -) 325 mg PO Q4H PRN PRN Reason: PAIN SCALE 6-10 Last Admin: 09/09/19 12:05 Dose: 325 mg Al Hydroxide/Mg Hydroxide (Mylanta Oral Suspension -) 30 ml PO Q6H PRN PRN Reason: DYSPEPSIA Last Admin: 09/16/19 14:05 Dose: 30 ml Albuterol Sulfate (Ventolin 0.083% Nebulizer Soln -) 1 amp NEB Q4H PRN PRN Reason: SHORT OF BREATH/WHEEZING Albuterol/Ipratropium (Duoneb -) 1 amp NEB RQID [facility] [place] Last Admin: 09/16/19 15:14 Dose: 1 amp Amlodipine Besylate (Norvasc -) 5 mg PO DAILY [facility] [place] Last Admin: 09/16/19 11:23 Dose: 5 mg Apixaban (Eliquis -) 5 mg PO BID [facility] [place] Last Admin: 09/16/19 11:23 Dose: 5 mg Aspirin (Ecotrin -) 81 mg PO DAILY [facility] [place] Last Admin: 09/16/19 11:23 Dose: 81 mg Atorvastatin Calcium (Lipitor -) 40 mg PO [facility] Last Admin: 09/15/19 21:30 Dose: 40 mg Azithromycin (Zithromax -) 250 mg PO DAILY [facility] [place] Last Admin: 09/16/19 11:23 Dose: 250 mg Docusate Sodium (Colace -) 300 mg PO [facility] Last Admin: 09/15/19 21:32 Dose: 300 mg Fentanyl (Sublimaze Injection -) 50 mcg IVPUSH [id number] PRN PRN Reason: PAIN-PACU ORDER X 4 DOSES ONLY Last Admin: 09/05/19 16:00 Dose: 50 mcg Ferrous Sulfate (Feosol -) 325 mg PO BID [facility] [place] Last Admin: 09/16/19 11:21 Dose: 325 mg Furosemide (Lasix Injection -) 40 mg IVPUSH DAILY [facility] [place] Last Admin: 09/16/19 11:59 Dose: 40 mg Gabapentin (Neurontin -) 300 mg PO TID [facility] [place] Last Admin: 09/16/19 14:47 Dose: 300 mg Lidocaine (Lidoderm Patch -) 1 patch TP DAILY [facility] [place] Last Admin: 09/16/19 11:24 Dose: 1 patch Magnesium Hydroxide (Milk Of Magnesia -) 30 ml PO DAILY PRN PRN Reason: CONSTIPATION Last Admin: 09/09/19 09:37 Dose: 30 ml Melatonin (Melatonin) 3 mg PO HS [facility] [place] Last Admin: 09/15/19 21:32 Dose: 3 mg Metoprolol Tartrate (Lopressor -) 25 mg PO BID [facility] [place] Last Admin: 09/16/19 11:24 Dose: 25 mg Mineral Oil (Fleet Mineral Oil Rectal Enema -) 133 ml ME NOW PRN PRN Reason: CONSTIPATION Miscellaneous (Lidoderm Patch Removal) 1 each MC DAILY@2200 [facility] [place] Last Admin: 09/15/19 21:32 Dose: 1 each Multivitamins/Minerals/Vitamin C (Tab-A-Vit -) 1 tab PO DAILY [facility] [place] Last Admin: 09/16/19 11:23 Dose: 1 tab Ondansetron HCl (Zofran Injection) 4 mg IVPUSH Q6H PRN PRN Reason: NAUSEA AND/OR VOMITING Last Admin: 09/05/19 16:45 Dose: 4 mg Phenazopyridine HCl (Pyridium -) 200 mg PO TID [facility] [place] Last Admin: 09/16/19 14:47 Dose: 200 mg Polyethylene Glycol (Miralax (For Daily Use) -) 17 gm PO DAILY [facility] [place] Last Admin: 09/16/19 11:28 Dose: 17 gm Potassium Chloride (K-Dur -) 40 meq PO DAILY [facility] [place] Last Admin: 09/16/19 11:21 Dose: 40 meq Senna (Senna -) 2 tab PO HS PRN PRN Reason: CONSTIPATION Last Admin: 09/04/19 11:29 Dose: 2 tab Sitagliptin Phosphate (Januvia -) 25 mg PO DAILY@0700 [facility] [place] Last Admin: 09/16/19 06:18 Dose: 25 mg Tamsulosin HCl (Flomax -) 0.4 mg PO DAILY@0830 [facility] [place] Last Admin: 09/16/19 11:21 Dose: 0.4 mg - Objective Vital Signs: Vital Signs Temperature 97.7 F 09/16/19 06:00 Pulse Rate 88 09/16/19 10:00 Respiratory Rate 18 09/16/19 10:00 Blood Pressure 114/62 09/16/19 10:00 O2 Sat by Pulse Oximetry (%) 97 09/16/19 09:00 Constitutional: Yes: No Distress, Calm Eyes: Yes: Conjunctiva Clear HENT: Yes: Atraumatic Cardiovascular: Yes: Pulse Irregular Respiratory: Yes: Regular, Diminished Gastrointestinal: Yes: Normal Bowel Sounds, Soft Musculoskeletal: Yes: Muscle Weakness Extremities: Yes: WNL Edema: No Neurological: Yes: Alert, Oriented Psychiatric: Yes: Alert, Oriented Labs: CBC, BMP 09/16/19 07:40 09/16/19 07:40 INR, PTT INR 1.53 (0.83-1.09) H 08/31/19 12:31 Microbiology 08/31/19 20:00 Blood - Peripheral Venous Blood Culture - Final NO GROWTH AFTER 5 DAYS INCUBATION 08/31/19 20:00 Blood - Peripheral Venous Blood Culture - Final NO GROWTH AFTER 5 DAYS INCUBATION 08/31/19 12:39 Urine - Urine Iqbal Urine Culture - Final Proteus Mirabilis Problem List - Problems (1) Acute urinary retention Assessment/Plan: -Urology on board -Tamsulosin Code(s): R33.8 - OTHER RETENTION OF URINE (2) Gross hematuria Assessment/Plan: -Urology on board -resolved -s/p Cystourethroscopy, TURP/TUVP -monitor Hg daily -FC and CBI discontinued Code(s): R31.0 - GROSS HEMATURIA (3) Abdominal discomfort Assessment/Plan: -Abd/Pelvic CT scan shows LLL consolidation and small pleural effusion, trace right pleural effusion, basilar atelectasis, cholelithiasis, bony changes within the sacrum pelvis that could represent Paget's disease although bony metastases cannot be excluded -Oncology on board -Bone scan shows no definite scintigraphic pattern of osteoblastic bony metastasis, increased uptake in the lower lumbar spine, sacrum, iliac bone not grossly changed since the prior studies and corresponding to enlarged 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 -PSA <.10 Code(s): R10.9 - UNSPECIFIED ABDOMINAL PAIN (4) Anemia Assessment/Plan: -Hg 8.0 -monitor Hg daily -transfuse for Hg <7.0 -Ferrous Sulfate -noted with low Fe -Venofer 200mg IVPB x 1 dose -GI on board -will need close GI and follow up as outpatient -Hematology on board Code(s): D64.9 - ANEMIA, UNSPECIFIED Qualifiers: Anemia type: iron deficiency (5) Atrial fibrillation Assessment/Plan: -Metoprolol -Eliquis Code(s): I48.91 - UNSPECIFIED ATRIAL FIBRILLATION (6) BPH (benign prostatic hyperplasia) Assessment/Plan: -Tamsulosin -Urology consult -PSA <0.10 Code(s): N40.0 - BENIGN PROSTATIC HYPERPLASIA WITHOUT LOWER URINRY TRACT SYMP (7) CHF (congestive heart failure) Assessment/Plan: -Furosemide -daily weights -strict I&O -fluid restriction Code(s): I50.9 - HEART FAILURE, UNSPECIFIED Qualifiers: Heart failure type: unspecified Heart failure chronicity: chronic Qualified Code(s): I50.9 - Heart failure, unspecified (8) Diabetes Assessment/Plan: -[facility] -HgA1c -Sitagliptan Code(s): E11.9 - TYPE 2 DIABETES MELLITUS WITHOUT COMPLICATIONS Qualifiers: Diabetes mellitus type: other specified (including TAN) 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: unspecified termination clerk insulin use status Diabetes mellitus complication status: with other specified complication Qualified Code (s): E13.69 - Other specified diabetes mellitus with other specified complication (9) HLD (hyperlipidemia) Assessment/Plan: -Atorvastatin Code(s): E78.5 - HYPERLIPIDEMIA, UNSPECIFIED (10) Hypertension Assessment/Plan: -Amlodipine, Imdur Code(s): I10 - ESSENTIAL (PRIMARY) HYPERTENSION Qualifiers: Hypertension type: unspecified Qualified Code(s): I10 - Essential (primary ) hypertension (11) BEKA (acute kidney injury) Assessment/Plan: -renal on board -BUN/Cr 19.0/1.1 -monitor renal function Code(s): N17.9 - ACUTE KIDNEY FAILURE, UNSPECIFIED (12) Leukocytosis Assessment/Plan: -ID consult -WBC 10.6 -UA shows 3+ leuks, 3+ bilirubin, 3+ protein, 2+ ketones, 3+ blood -UC positive -afebrile -Ceftriaxone, Azithromycin -CXR shows left base pleural reaction with atelectasis and/or infiltrate Code(s): D72.829 - ELEVATED WHITE BLOOD CELL COUNT, UNSPECIFIED (13) UTI (urinary tract infection) Assessment/Plan: -ID consult -WBC 10.6 -UA shows 3+ leuks, 3+ bilirubin, 3+ protein, 2+ ketones, 3+ blood -UC positive -afebrile -Ceftriaxone Code(s): N39.0 - URINARY TRACT INFECTION, SITE NOT SPECIFIED (14) Pneumonia Assessment/Plan: -ID consult -WBC 10.6 -afebrile -Ceftriaxone, Azithromycin -CXR shows left base pleural reaction with atelectasis and/or infiltrate Code(s): J18.9 - PNEUMONIA, UNSPECIFIED ORGANISM Assessment/Plan see problem list dvt ppx begin d/c planning to SNF
[2019-09-16] MEDS ORDERED: IRON SUCROSE INJECTION 200 MG in SODIUM CHLORIDE 90 ML IVPB ONE (16:32)
--- NOTE | 2019-09-16 16:55 | PN ---
Progress Note (short form) - Note Progress Note: Patient seen and examined Concerned abo Has intermittent incontinence and voids into diaper Last Vital Signs Temp Pulse Resp BP Pulse Ox 99.1 F 68 18 109/55 L 97 09/16/19 14:00 09/16/19 14:00 09/16/19 14:00 09/16/19 14:00 09/16/19 09:00 Gynecomastia [id number]_RSR Lungs -- clear anteriorly , diminished posteriorly Abdomen- enlarged liver No significant LE edema CBC, BMP 09/16/19 07:40 09/16/19 07:40 Current Medications Generic Name Dose Route Start Last Admin Trade Name Freq PRN Reason Stop Dose Admin Acetaminophen 650 mg 09/05/19 14:01 09/13/19 13:04 Tylenol - PO 650 mg Q6H PRN Administration PAIN SCALE 1-5 OR FEVER Acetaminophen 325 mg 09/05/19 14:08 09/09/19 12:05 Tylenol - PO 325 mg Q4H PRN Administration PAIN SCALE 6-10 Al Hydroxide/Mg Hydroxide 30 ml 08/31/19 18:00 09/16/19 14:05 Mylanta Oral Suspension - PO 30 ml Q6H PRN Administration DYSPEPSIA Albuterol Sulfate 1 amp 09/15/19 10:13 Ventolin 0.083% Nebulizer Soln - NEB Q4H PRN SHORT OF BREATH/WHEEZING Albuterol/Ipratropium 1 amp 09/15/19 12:00 09/16/19 15:14 Duoneb - NEB 1 amp RQID [facility] Administration Amlodipine Besylate 5 mg 09/01/19 10:00 09/16/19 11:23 Norvasc - PO 5 mg DAILY [facility] Administration Apixaban 5 mg 08/31/19 22:00 09/16/19 11:23 Eliquis - PO 5 mg BID [facility] Administration Aspirin 81 mg 09/01/19 10:00 09/16/19 11:23 Ecotrin - PO 81 mg DAILY [facility] Administration Atorvastatin Calcium 40 mg 08/31/19 22:00 09/15/19 21:30 Lipitor - PO 40 mg HS [facility] Administration Azithromycin 250 mg 09/12/19 10:00 09/16/19 11:23 Zithromax - PO 250 mg DAILY [facility] Administration Docusate Sodium 300 mg 08/31/19 22:00 09/15/19 21:32 Colace - PO 300 mg HS [facility] Administration Fentanyl 50 mcg 09/05/19 14:26 09/05/19 16:00 Sublimaze Injection - IVPUSH 50 mcg [id number] PRN Administration PAIN-PACU ORDER X 4 DOSES ONLY Ferrous Sulfate 325 mg 09/03/19 22:00 09/16/19 11:21 Feosol - PO 325 mg BID [facility] Administration Furosemide 40 mg 09/14/19 10:00 09/16/19 11:59 Lasix Injection - IVPUSH 40 mg DAILY [facility] Administration Gabapentin 300 mg 08/31/19 22:00 09/16/19 14:47 Neurontin - PO 300 mg TID [facility] Administration Iron Sucrose 200 mg/ Sodium 100 mls @ 100 mls/hr 09/16/19 17:30 Chloride IVPB Q48H [facility] Lidocaine 1 patch 09/01/19 10:00 09/16/19 11:24 Lidoderm Patch - TP 1 patch DAILY [facility] Administration Magnesium Hydroxide 30 ml 09/07/19 15:10 09/09/19 09:37 Milk Of Magnesia - PO 30 ml DAILY PRN Administration CONSTIPATION Melatonin 3 mg 08/31/19 22:00 09/15/19 21:32 Melatonin PO 3 mg HS [facility] Administration Metoprolol Tartrate 25 mg 08/31/19 22:00 09/16/19 11:24 Lopressor - PO 25 mg BID [facility] Administration Mineral Oil 133 ml 09/09/19 13:02 Fleet Mineral Oil Rectal Enema - GA NOW PRN CONSTIPATION Miscellaneous 1 each 09/01/19 22:00 09/15/19 21:32 Lidoderm Patch Removal MC 1 each DAILY@2200 [facility] Administration Multivitamins/Minerals/Vitamin C 1 tab 09/01/19 10:00 09/16/19 11:23 Tab-A-Vit - PO 1 tab DAILY [facility] Administration Ondansetron HCl 4 mg 09/05/19 14:26 09/05/19 16:45 Zofran Injection IVPUSH 4 mg Q6H PRN Administration NAUSEA AND/OR VOMITING Phenazopyridine HCl 200 mg 09/07/19 22:00 09/16/19 14:47 Pyridium - PO 200 mg TID [facility] Administration Polyethylene Glycol 17 gm 09/01/19 10:00 09/16/19 11:28 Miralax (For Daily Use) - PO 17 gm DAILY [facility] Administration Potassium Chloride 40 meq 09/01/19 10:00 09/16/19 11:21 K-Dur - PO 40 meq DAILY [facility] Administration Senna 2 tab 09/04/19 10:32 09/04/19 11:29 Senna - PO 2 tab HS PRN Administration CONSTIPATION Sitagliptin Phosphate 25 mg 09/04/19 07:00 09/16/19 06:18 Januvia - PO 25 mg DAILY@0700 [facility] Administration Tamsulosin HCl 0.4 mg 09/01/19 08:30 09/16/19 11:21 Flomax - PO 0.4 mg DAILY@0830 [facility] Administration Impression: Anemia- multifactorial chronic disease, cannot exclude component of blood loss Bone scan- "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 Adballa ? of monitoring or biopsy of sclerotic bone lesion PSA < 0.10- history of prostate ca LLL consolidation - on antibiotics per pulmonary. Hydronephrosis on CT - suggest - follow up.
[2019-09-16] MEDS ORDERED: IRON SUCROSE INJECTION 200 MG in SODIUM CHLORIDE 90 ML IVPB SCH (17:30)
--- NOTE | 2019-09-16 17:31 | CON.PSY ---
Psychiatry Consult Chief Complaint: 78 Year old Male with extensive multiple chronic medical conditions seen for Psych eval for Depression. Symptoms: reports: Depressed Mood - Previous Psychiatric Treatment Outpatient: None Inpatient: None - Previous Substance Abuse Treatment Outpatient: None Inpatient: None - Current Medications Current Medications: Active Medications Acetaminophen (Tylenol -) 650 mg PO Q6H PRN PRN Reason: PAIN SCALE 1-5 OR FEVER Last Admin: 09/13/19 13:04 Dose: 650 mg Acetaminophen (Tylenol -) 325 mg PO Q4H PRN PRN Reason: PAIN SCALE 6-10 Last Admin: 09/09/19 12:05 Dose: 325 mg Al Hydroxide/Mg Hydroxide (Mylanta Oral Suspension -) 30 ml PO Q6H PRN PRN Reason: DYSPEPSIA Last Admin: 09/16/19 14:05 Dose: 30 ml Albuterol Sulfate (Ventolin 0.083% Nebulizer Soln -) 1 amp NEB Q4H PRN PRN Reason: SHORT OF BREATH/WHEEZING Albuterol/Ipratropium (Duoneb -) 1 amp NEB RQID [facility] Last Admin: 09/16/19 15:14 Dose: 1 amp Amlodipine Besylate (Norvasc -) 5 mg PO DAILY [facility] Last Admin: 09/16/19 11:23 Dose: 5 mg Apixaban (Eliquis -) 5 mg PO BID [facility] Last Admin: 09/16/19 11:23 Dose: 5 mg Aspirin (Ecotrin -) 81 mg PO DAILY [facility] Last Admin: 09/16/19 11:23 Dose: 81 mg Atorvastatin Calcium (Lipitor -) 40 mg PO HS [facility] Last Admin: 09/15/19 21:30 Dose: 40 mg Azithromycin (Zithromax -) 250 mg PO DAILY [facility] Last Admin: 09/16/19 11:23 Dose: 250 mg Docusate Sodium (Colace -) 300 mg PO [facility] Last Admin: 09/15/19 21:32 Dose: 300 mg Fentanyl (Sublimaze Injection -) 50 mcg IVPUSH [id number] PRN PRN Reason: PAIN-PACU ORDER X 4 DOSES ONLY Last Admin: 09/05/19 16:00 Dose: 50 mcg Ferrous Sulfate (Feosol -) 325 mg PO BID [facility] Last Admin: 09/16/19 11:21 Dose: 325 mg Furosemide (Lasix Injection -) 40 mg IVPUSH DAILY [facility] Last Admin: 09/16/19 11:59 Dose: 40 mg Gabapentin (Neurontin -) 300 mg PO TID [facility] Last Admin: 09/16/19 14:47 Dose: 300 mg Iron Sucrose 200 mg/ Sodium (Chloride) 100 mls @ 100 mls/hr IVPB Q48H [facility] Lidocaine (Lidoderm Patch -) 1 patch TP DAILY [facility] Last Admin: 09/16/19 11:24 Dose: 1 patch Magnesium Hydroxide (Milk Of Magnesia -) 30 ml PO DAILY PRN PRN Reason: CONSTIPATION Last Admin: 09/09/19 09:37 Dose: 30 ml Melatonin (Melatonin) 3 mg PO HS [facility] Last Admin: 09/15/19 21:32 Dose: 3 mg Metoprolol Tartrate (Lopressor -) 25 mg PO BID [facility] Last Admin: 09/16/19 11:24 Dose: 25 mg Mineral Oil (Fleet Mineral Oil Rectal Enema -) 133 ml [place] NOW PRN PRN Reason: CONSTIPATION Miscellaneous (Lidoderm Patch Removal) 1 each MC DAILY@2200 [facility] Last Admin: 09/15/19 21:32 Dose: 1 each Multivitamins/Minerals/Vitamin C (Tab-A-Vit -) 1 tab PO DAILY [facility] Last Admin: 09/16/19 11:23 Dose: 1 tab Ondansetron HCl (Zofran Injection) 4 mg IVPUSH Q6H PRN PRN Reason: NAUSEA AND/OR VOMITING Last Admin: 09/05/19 16:45 Dose: 4 mg Phenazopyridine HCl (Pyridium -) 200 mg PO TID [facility] Last Admin: 09/16/19 14:47 Dose: 200 mg Polyethylene Glycol (Miralax (For Daily Use) -) 17 gm PO DAILY [facility] Last Admin: 09/16/19 11:28 Dose: 17 gm Potassium Chloride (K-Dur -) 40 meq PO DAILY [facility] Last Admin: 09/16/19 11:21 Dose: 40 meq Senna (Senna -) 2 tab PO HS PRN PRN Reason: CONSTIPATION Last Admin: 09/04/19 11:29 Dose: 2 tab Sitagliptin Phosphate (Januvia -) 25 mg PO DAILY@0700 [facility] Last Admin: 09/16/19 06:18 Dose: 25 mg Tamsulosin HCl (Flomax -) 0.4 mg PO DAILY@0830 [facility] Last Admin: 09/16/19 11:21 Dose: 0.4 mg - Allergies Allergies: Allergies Allergy/AdvReac Type Severity Reaction Status Date / Time No Known Allergies Allergy Verified 08/31/19 10:49 - Current Living Status Usual Living Arrangement: With Significant Other - Current Mental Status Evaluation Appearance: Well Groomed Attitude: Cooperative - Affect Affect: Constrictive Appropriateness: Appropriate to Content - Mood Mood: Depressed - Speech/Language Expressive: Coherent - Psychomotor Activity Psychomotor Activity: Slowed - Thought Process Thought Process: Intact - Thought Content Hallucinations: Absent Delusions: Absent - Self Perception Self Perception: No Impairment - Cognition Attention: Alert Orientation: Time Memory, Immediate Recall: Intact Memory, Short Term: 2/3 Memory, Remote with Promptin/3 - Concentration Serial Sevens Intact: No Simple Calculations Intact: Yes - Abstraction Proverb Interpretation: Intact Judgement: Intact - Insight Insight: Intact - Impulse Control Impulse Control: Good Control - Suicidal Ideation Suicidal Ideation: No - Homicidal Ideation Homicidal Ideation: No Assessment/Plan 1) start Cymbalta 20 mg po od for DEpression.
[2019-09-16] MEDS: ATORVASTATIN CA 40 MG TABLET (FP) PO SCH (21:05)
[2019-09-16] MEDS: MELATONIN 1 MG TABLET PO SCH (21:06)
[2019-09-16] MEDS: DOCUSATE SODIUM 100 MG CAPSULE (FP) PO SCH (21:06)
--- NOTE | 2019-09-16 22:16 | PN ---
Progress Note, Physician Chief Complaint: Pt alert; frustrated he has to stay in hospital for so long. History of Present Illness: The patient is a 78 year old black male with history of diabetes, diastolic CHF , CAD-->?2 coronary stents in ?2015 at ?[facility], atrial fibrillation, anemia, who presents to the emergency department for evaluation of dysuria, hematuria, and urinary retention since last night. Patient denies fever/chills/nausea/ vomiting/melena.He comes from [facility] where a thomas was placed this morning. Urologist: Omar Friedman PCP: Hung Friedman - Current Medication List Current Medications: Active Medications Acetaminophen (Tylenol -) 650 mg PO Q6H PRN PRN Reason: PAIN SCALE 1-5 OR FEVER Last Admin: 09/13/19 13:04 Dose: 650 mg Acetaminophen (Tylenol -) 325 mg PO Q4H PRN PRN Reason: PAIN SCALE 6-10 Last Admin: 09/09/19 12:05 Dose: 325 mg Al Hydroxide/Mg Hydroxide (Mylanta Oral Suspension -) 30 ml PO Q6H PRN PRN Reason: DYSPEPSIA Last Admin: 09/16/19 14:05 Dose: 30 ml Albuterol Sulfate (Ventolin 0.083% Nebulizer Soln -) 1 amp NEB Q4H PRN PRN Reason: SHORT OF BREATH/WHEEZING Albuterol/Ipratropium (Duoneb -) 1 amp NEB RQID [facility] Last Admin: 09/16/19 19:57 Dose: 1 amp Amlodipine Besylate (Norvasc -) 5 mg PO DAILY [facility] Last Admin: 09/16/19 11:23 Dose: 5 mg Apixaban (Eliquis -) 5 mg PO BID [facility] Last Admin: 09/16/19 21:05 Dose: 5 mg Aspirin (Ecotrin -) 81 mg PO DAILY [facility] Last Admin: 09/16/19 11:23 Dose: 81 mg Atorvastatin Calcium (Lipitor -) 40 mg PO [facility] Last Admin: 09/16/19 21:05 Dose: 40 mg Azithromycin (Zithromax -) 250 mg PO DAILY [facility] Last Admin: 09/16/19 11:23 Dose: 250 mg Docusate Sodium (Colace -) 300 mg PO [facility] Last Admin: 09/16/19 21:06 Dose: 300 mg Duloxetine HCl (Cymbalta -) 20 mg PO DAILY [facility] Fentanyl (Sublimaze Injection -) 50 mcg IVPUSH [id number] PRN PRN Reason: PAIN-PACU ORDER X 4 DOSES ONLY Last Admin: 09/05/19 16:00 Dose: 50 mcg Ferrous Sulfate (Feosol -) 325 mg PO BID [facility] Last Admin: 09/16/19 21:05 Dose: 325 mg Furosemide (Lasix Injection -) 40 mg IVPUSH DAILY [facility] Last Admin: 09/16/19 11:59 Dose: 40 mg Gabapentin (Neurontin -) 300 mg PO TID [facility] Last Admin: 09/16/19 21:06 Dose: 300 mg Iron Sucrose 200 mg/ Sodium (Chloride) 100 mls @ 100 mls/hr IVPB Q48H [facility] Last Admin: 09/16/19 21:07 Dose: 100 mls/hr Lidocaine (Lidoderm Patch -) 1 patch TP DAILY [facility] Last Admin: 09/16/19 11:24 Dose: 1 patch Magnesium Hydroxide (Milk Of Magnesia -) 30 ml PO DAILY PRN PRN Reason: CONSTIPATION Last Admin: 09/09/19 09:37 Dose: 30 ml Melatonin (Melatonin) 3 mg PO HS [facility] Last Admin: 09/16/19 21:06 Dose: 3 mg Metoprolol Tartrate (Lopressor -) 25 mg PO BID [facility] Last Admin: 09/16/19 21:06 Dose: 25 mg Mineral Oil (Fleet Mineral Oil Rectal Enema -) 133 ml [place] NOW PRN PRN Reason: CONSTIPATION Miscellaneous (Lidoderm Patch Removal) 1 each MC DAILY@2200 [facility] Last Admin: 09/15/19 21:32 Dose: 1 each Multivitamins/Minerals/Vitamin C (Tab-A-Vit -) 1 tab PO DAILY [facility] Last Admin: 09/16/19 11:23 Dose: 1 tab Ondansetron HCl (Zofran Injection) 4 mg IVPUSH Q6H PRN PRN Reason: NAUSEA AND/OR VOMITING Last Admin: 09/05/19 16:45 Dose: 4 mg Phenazopyridine HCl (Pyridium -) 200 mg PO TID [facility] Last Admin: 09/16/19 21:08 Dose: 200 mg Polyethylene Glycol (Miralax (For Daily Use) -) 17 gm PO DAILY [facility] Last Admin: 09/16/19 11:28 Dose: 17 gm Potassium Chloride (K-Dur -) 40 meq PO DAILY [facility] Last Admin: 09/16/19 11:21 Dose: 40 meq Senna (Senna -) 2 tab PO HS PRN PRN Reason: CONSTIPATION Last Admin: 09/04/19 11:29 Dose: 2 tab Sitagliptin Phosphate (Januvia -) 25 mg PO DAILY@0700 [facility] Last Admin: 09/16/19 06:18 Dose: 25 mg Tamsulosin HCl (Flomax -) 0.4 mg PO DAILY@0830 [facility] Last Admin: 09/16/19 11:21 Dose: 0.4 mg - Objective Vital Signs: Vital Signs Temperature 98.7 F 09/16/19 18:00 Pulse Rate 79 09/16/19 18:00 Respiratory Rate 18 09/16/19 18:00 Blood Pressure 137/59 L 09/16/19 18:00 O2 Sat by Pulse Oximetry (%) 97 09/16/19 09:00 Constitutional: Yes: Anxious Eyes: Yes: WNL HENT: Yes: WNL Neck: Yes: WNL Cardiovascular: Yes: S1, S2 (split) Respiratory: Yes: Regular, Diminished Gastrointestinal: Yes: Soft ...Rectal Exam: Yes: Deferred Genitourinary: No: Anuria Breast(s): Yes: WNL Musculoskeletal: Yes: Muscle Weakness Extremities: Yes: Cool Edema: No Peripheral Pulses WNL: Yes Integumentary: Yes: WNL Neurological: Yes: Alert, Weakness ...Motor Strength: LLE, RLE (mildly decreased strength) Psychiatric: Yes: Alert Labs: CBC, BMP 09/16/19 07:40 09/16/19 07:40 INR, PTT INR 1.53 (0.83-1.09) H 08/31/19 12:31 - ....Imaging Chest X-ray: Image Reviewed (09/11: prominent bilateral kuldeep; left basal atelectasis/infiltrate (no significant change)) EKG: Image Reviewed (NSR: RBBB) Problem List - Problems (1) UTI (urinary tract infection) Assessment/Plan: BPH; UTI Code(s): N39.0 - URINARY TRACT INFECTION, SITE NOT SPECIFIED (2) Paroxysmal A-fib Assessment/Plan: On metoprolol for HR control. On apixaban for anticoagulation. ECHO: normal LVEF; moderate TR; mild LAE. Code(s): I48.0 - PAROXYSMAL ATRIAL FIBRILLATION (3) Obesity (BMI 30.0-34.9) Code(s): E66.9 - OBESITY, UNSPECIFIED (4) Anemia Assessment/Plan: f/u hematology w/u Code(s): D64.9 - ANEMIA, UNSPECIFIED Qualifiers: Anemia type: iron deficiency (5) Diastolic CHF Assessment/Plan: On metoprolol, amlodipine, and furosemide. Start lisinopril (HTN; CHF; DM); may decrease or discontinue amlodipine if BP decreases too much. F/u BUN/Cr, electrolytes, daily wt, Is and Os. Code(s): I50.30 - UNSPECIFIED DIASTOLIC (CONGESTIVE) HEART FAILURE (6) Diabetes Assessment/Plan: On Januvia. Start ACEI (renal protection with DM; HTN). Code(s): E11.9 - TYPE 2 DIABETES MELLITUS WITHOUT COMPLICATIONS Qualifiers: Diabetes mellitus type: other specified (including TAN) Diabetes mellitus longterm insulin use: unspecified longterm insulin use status Diabetes mellitus complication status: with other specified complication Qualified Code (s): E13.69 - Other specified diabetes mellitus with other specified complication (7) Sleep apnea Assessment/Plan: on BiPAP. Code(s): G47.30 - SLEEP APNEA, UNSPECIFIED (8) Respiratory abnormalities Code(s): R06.9 - UNSPECIFIED ABNORMALITIES OF BREATHING (9) BPH (benign prostatic hyperplasia) Code(s): N40.0 - BENIGN PROSTATIC HYPERPLASIA WITHOUT LOWER URINRY TRACT SYMP (10) Depression Assessment/Plan: On Cymbalta. Code(s): F32.9 - MAJOR DEPRESSIVE DISORDER, SINGLE EPISODE, UNSPECIFIED
[2019-09-16] MEDS: LIDOCAINE PATCH REMOVAL MC SCH (23:17)
[2019-09-17] MEDS: MAG HYDROX/AL HYDROX/SIMETH 30 ML UNIT-DOSE CUP PO PRN ×2 (04:00→11:22)
--- NOTE | 2019-09-17 06:37 | PN ---
Progress Note, Physician Chief Complaint: Pt alert and oriented; no chest pain or dyspnea. History of Present Illness: The patient is a 78 year old black male with history of diabetes, diastolic CHF , CAD-->?2 coronary stents in ?2015 at ?[facility] [place], atrial fibrillation, anemia, who presents to the emergency department for evaluation of dysuria, hematuria, and urinary retention since last night. Patient denies fever/chills/nausea/ vomiting/melena.He comes from [facility] where a thomas was placed this morning. Urologist: Omar Friedman PCP: Hung Friedman - Current Medication List Current Medications: Active Medications Acetaminophen (Tylenol -) 650 mg PO Q6H PRN PRN Reason: PAIN SCALE 1-5 OR FEVER Last Admin: 09/13/19 13:04 Dose: 650 mg Acetaminophen (Tylenol -) 325 mg PO Q4H PRN PRN Reason: PAIN SCALE 6-10 Last Admin: 09/09/19 12:05 Dose: 325 mg Al Hydroxide/Mg Hydroxide (Mylanta Oral Suspension -) 30 ml PO Q6H PRN PRN Reason: DYSPEPSIA Last Admin: 09/17/19 04:00 Dose: 30 ml Albuterol Sulfate (Ventolin 0.083% Nebulizer Soln -) 1 amp NEB Q4H PRN PRN Reason: SHORT OF BREATH/WHEEZING Albuterol/Ipratropium (Duoneb -) 1 amp NEB RQID [facility] Last Admin: 09/16/19 19:57 Dose: 1 amp Amlodipine Besylate (Norvasc -) 5 mg PO DAILY [facility] Last Admin: 09/16/19 11:23 Dose: 5 mg Apixaban (Eliquis -) 5 mg PO BID [facility] Last Admin: 09/16/19 21:05 Dose: 5 mg Aspirin (Ecotrin -) 81 mg PO DAILY [facility] Last Admin: 09/16/19 11:23 Dose: 81 mg Atorvastatin Calcium (Lipitor -) 40 mg PO [facility] Last Admin: 09/16/19 21:05 Dose: 40 mg Azithromycin (Zithromax -) 250 mg PO DAILY [facility] Last Admin: 09/16/19 11:23 Dose: 250 mg Docusate Sodium (Colace -) 300 mg PO [facility] Last Admin: 09/16/19 21:06 Dose: 300 mg Duloxetine HCl (Cymbalta -) 20 mg PO DAILY [facility] Fentanyl (Sublimaze Injection -) 50 mcg IVPUSH [id number] PRN PRN Reason: PAIN-PACU ORDER X 4 DOSES ONLY Last Admin: 09/05/19 16:00 Dose: 50 mcg Ferrous Sulfate (Feosol -) 325 mg PO BID [facility] Last Admin: 09/16/19 21:05 Dose: 325 mg Furosemide (Lasix Injection -) 40 mg IVPUSH DAILY [facility] Last Admin: 09/16/19 11:59 Dose: 40 mg Gabapentin (Neurontin -) 300 mg PO TID [facility] Last Admin: 09/16/19 21:06 Dose: 300 mg Iron Sucrose 200 mg/ Sodium (Chloride) 100 mls @ 100 mls/hr IVPB Q48H [facility] Last Admin: 09/16/19 21:07 Dose: 100 mls/hr Lidocaine (Lidoderm Patch -) 1 patch TP DAILY [facility] Last Admin: 09/16/19 11:24 Dose: 1 patch Magnesium Hydroxide (Milk Of Magnesia -) 30 ml PO DAILY PRN PRN Reason: CONSTIPATION Last Admin: 09/09/19 09:37 Dose: 30 ml Melatonin (Melatonin) 3 mg PO HS [facility] Last Admin: 09/16/19 21:06 Dose: 3 mg Metoprolol Tartrate (Lopressor -) 25 mg PO BID [facility] Last Admin: 09/16/19 21:06 Dose: 25 mg Mineral Oil (Fleet Mineral Oil Rectal Enema -) 133 ml [place] NOW PRN PRN Reason: CONSTIPATION Miscellaneous (Lidoderm Patch Removal) 1 each MC DAILY@2200 [facility] Last Admin: 09/16/19 23:17 Dose: 1 each Multivitamins/Minerals/Vitamin C (Tab-A-Vit -) 1 tab PO DAILY [facility] Last Admin: 09/16/19 11:23 Dose: 1 tab Ondansetron HCl (Zofran Injection) 4 mg IVPUSH Q6H PRN PRN Reason: NAUSEA AND/OR VOMITING Last Admin: 09/05/19 16:45 Dose: 4 mg Phenazopyridine HCl (Pyridium -) 200 mg PO TID [facility] Last Admin: 09/16/19 21:08 Dose: 200 mg Polyethylene Glycol (Miralax (For Daily Use) -) 17 gm PO DAILY [facility] Last Admin: 09/16/19 11:28 Dose: 17 gm Potassium Chloride (K-Dur -) 40 meq PO DAILY [facility] Last Admin: 09/16/19 11:21 Dose: 40 meq Senna (Senna -) 2 tab PO HS PRN PRN Reason: CONSTIPATION Last Admin: 09/04/19 11:29 Dose: 2 tab Sitagliptin Phosphate (Januvia -) 25 mg PO DAILY@0700 [facility] Last Admin: 09/16/19 06:18 Dose: 25 mg Tamsulosin HCl (Flomax -) 0.4 mg PO DAILY@0830 [facility] Last Admin: 09/16/19 11:21 Dose: 0.4 mg - Objective Vital Signs: Vital Signs Temperature 98.7 F 09/16/19 22:00 Pulse Rate 88 09/16/19 22:00 Respiratory Rate 20 09/16/19 22:00 Blood Pressure 148/73 09/16/19 22:00 O2 Sat by Pulse Oximetry (%) 95 09/17/19 03:00 Constitutional: Yes: Obese Cardiovascular: Yes: S1, S2 (split), S4 Respiratory: Yes: Regular Gastrointestinal: Yes: Soft ...Rectal Exam: Yes: Deferred Genitourinary: No: Anuria Breast(s): Yes: WNL Musculoskeletal: Yes: Muscle Weakness Extremities: Yes: Cool Edema: No Peripheral Pulses WNL: Yes Integumentary: Yes: WNL Neurological: Yes: Alert, Oriented, Weakness Psychiatric: Yes: Other (depression) Labs: CBC, BMP 09/16/19 07:40 09/16/19 07:40 INR, PTT INR 1.53 (0.83-1.09) H 08/31/19 12:31 - ....Imaging Chest X-ray: Image Reviewed EKG: Image Reviewed Problem List - Problems (1) UTI (urinary tract infection) Assessment/Plan: BPH; UTI Code(s): N39.0 - URINARY TRACT INFECTION, SITE NOT SPECIFIED (2) Paroxysmal A-fib Assessment/Plan: On metoprolol for HR control. On apixaban for anticoagulation. ECHO: normal LVEF; moderate TR; mild LAE. Code(s): I48.0 - PAROXYSMAL ATRIAL FIBRILLATION (3) Obesity (BMI 30.0-34.9) Code(s): E66.9 - OBESITY, UNSPECIFIED (4) Anemia Assessment/Plan: f/u hematology w/u Code(s): D64.9 - ANEMIA, UNSPECIFIED Qualifiers: Anemia type: iron deficiency (5) Diastolic CHF Assessment/Plan: On metoprolol, amlodipine, and furosemide. Start lisinopril (HTN; CHF; DM); may decrease or discontinue amlodipine if BP decreases too much. F/u CXR. F/u BUN/Cr, electrolytes, daily wt, Is and Os. Code(s): I50.30 - UNSPECIFIED DIASTOLIC (CONGESTIVE) HEART FAILURE (6) Diabetes Assessment/Plan: On Januvia. Start ACEI--lisinopril 2.5 mg daily (renal protection with DM; HTN). Code(s): E11.9 - TYPE 2 DIABETES MELLITUS WITHOUT COMPLICATIONS Qualifiers: Diabetes mellitus type: other specified (including TAN) 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: unspecified jail insulin use status Diabetes mellitus complication status: with other specified complication Qualified Code (s): E13.69 - Other specified diabetes mellitus with other specified complication (7) Sleep apnea Assessment/Plan: on BiPAP. Code(s): G47.30 - SLEEP APNEA, UNSPECIFIED (8) Respiratory abnormalities Code(s): R06.9 - UNSPECIFIED ABNORMALITIES OF BREATHING (9) BPH (benign prostatic hyperplasia) Code(s): N40.0 - BENIGN PROSTATIC HYPERPLASIA WITHOUT LOWER URINRY TRACT SYMP (10) Depression Assessment/Plan: For psychiatric evaluation. Code(s): F32.9 - MAJOR DEPRESSIVE DISORDER, SINGLE EPISODE, UNSPECIFIED
[2019-09-17] MEDS: GABAPENTIN 300 MG CAPSULE (FP) PO SCH ×2 (06:53→14:44)
[2019-09-17] MEDS: PHENAZOPYRIDINE HCL 100 MG TABLET (FP) PO SCH ×2 (06:54→14:44)
[2019-09-17 07:05] VITALS: PULSE 76
[2019-09-17] MEDS: ALBUTEROL SO4 2.5/IPRATROPIUM 0.5 INH SOL 3 ML VIAL.NEB. NEB SCH ×3 (08:00→16:00)
--- NOTE | 2019-09-17 09:30 | PN ---
Progress Note, Physician History of Present Illness: The patient is a 78 year old male with history of diabetes, CHF, atrial fibrillation anemia who presents to the emergency department for evaluation of dysuria, hematuria, and urinary Retention since last night. Patient denies fever /chills/nausea/vomiting/melena.He comes from [facility] where a thomas was placed this morning. - Current Medication List Current Medications: Active Medications Acetaminophen (Tylenol -) 650 mg PO Q6H PRN PRN Reason: PAIN SCALE 1-5 OR FEVER Last Admin: 09/13/19 13:04 Dose: 650 mg Acetaminophen (Tylenol -) 325 mg PO Q4H PRN PRN Reason: PAIN SCALE 6-10 Last Admin: 09/09/19 12:05 Dose: 325 mg Al Hydroxide/Mg Hydroxide (Mylanta Oral Suspension -) 30 ml PO Q6H PRN PRN Reason: DYSPEPSIA Last Admin: 09/17/19 04:00 Dose: 30 ml Albuterol Sulfate (Ventolin 0.083% Nebulizer Soln -) 1 amp NEB Q4H PRN PRN Reason: SHORT OF BREATH/WHEEZING Albuterol/Ipratropium (Duoneb -) 1 amp NEB RQID [facility] Last Admin: 09/17/19 08:00 Dose: 1 amp Amlodipine Besylate (Norvasc -) 5 mg PO DAILY [facility] Last Admin: 09/16/19 11:23 Dose: 5 mg Apixaban (Eliquis -) 5 mg PO BID [facility] Last Admin: 09/16/19 21:05 Dose: 5 mg Aspirin (Ecotrin -) 81 mg PO DAILY [facility] Last Admin: 09/16/19 11:23 Dose: 81 mg Atorvastatin Calcium (Lipitor -) 40 mg PO [facility] Last Admin: 09/16/19 21:05 Dose: 40 mg Azithromycin (Zithromax -) 250 mg PO DAILY [facility] Last Admin: 09/16/19 11:23 Dose: 250 mg Docusate Sodium (Colace -) 300 mg PO [facility] Last Admin: 09/16/19 21:06 Dose: 300 mg Duloxetine HCl (Cymbalta -) 20 mg PO DAILY [facility] Fentanyl (Sublimaze Injection -) 50 mcg IVPUSH [id number] PRN PRN Reason: PAIN-PACU ORDER X 4 DOSES ONLY Last Admin: 09/05/19 16:00 Dose: 50 mcg Ferrous Sulfate (Feosol -) 325 mg PO BID [facility] Last Admin: 09/16/19 21:05 Dose: 325 mg Furosemide (Lasix Injection -) 40 mg IVPUSH DAILY [facility] Last Admin: 09/16/19 11:59 Dose: 40 mg Gabapentin (Neurontin -) 300 mg PO TID [facility] Last Admin: 09/17/19 06:53 Dose: 300 mg Iron Sucrose 200 mg/ Sodium (Chloride) 100 mls @ 100 mls/hr IVPB Q48H [facility] Last Admin: 09/16/19 21:07 Dose: 100 mls/hr Lidocaine (Lidoderm Patch -) 1 patch TP DAILY [facility] Last Admin: 09/16/19 11:24 Dose: 1 patch Lisinopril (Prinivil) 2.5 mg PO DAILY [facility] Magnesium Hydroxide (Milk Of Magnesia -) 30 ml PO DAILY PRN PRN Reason: CONSTIPATION Last Admin: 09/09/19 09:37 Dose: 30 ml Melatonin (Melatonin) 3 mg PO HS [facility] Last Admin: 09/16/19 21:06 Dose: 3 mg Metoprolol Tartrate (Lopressor -) 25 mg PO BID [facility] Last Admin: 09/16/19 21:06 Dose: 25 mg Mineral Oil (Fleet Mineral Oil Rectal Enema -) 133 ml AR NOW PRN PRN Reason: CONSTIPATION Miscellaneous (Lidoderm Patch Removal) 1 each MC DAILY@2200 [facility] Last Admin: 09/16/19 23:17 Dose: 1 each Multivitamins/Minerals/Vitamin C (Tab-A-Vit -) 1 tab PO DAILY [facility] Last Admin: 09/16/19 11:23 Dose: 1 tab Ondansetron HCl (Zofran Injection) 4 mg IVPUSH Q6H PRN PRN Reason: NAUSEA AND/OR VOMITING Last Admin: 09/05/19 16:45 Dose: 4 mg Phenazopyridine HCl (Pyridium -) 200 mg PO TID [facility] Last Admin: 09/17/19 06:54 Dose: 200 mg Polyethylene Glycol (Miralax (For Daily Use) -) 17 gm PO DAILY [facility] Last Admin: 09/16/19 11:28 Dose: 17 gm Potassium Chloride (K-Dur -) 40 meq PO DAILY [facility] Last Admin: 09/16/19 11:21 Dose: 40 meq Senna (Senna -) 2 tab PO HS PRN PRN Reason: CONSTIPATION Last Admin: 09/04/19 11:29 Dose: 2 tab Sitagliptin Phosphate (Januvia -) 25 mg PO DAILY@0700 [facility] Last Admin: 09/17/19 06:53 Dose: 25 mg Tamsulosin HCl (Flomax -) 0.4 mg PO DAILY@0830 [facility] Last Admin: 09/16/19 11:21 Dose: 0.4 mg - Objective Vital Signs: Vital Signs Temperature 98.6 F 09/17/19 06:00 Pulse Rate 76 09/17/19 06:00 Respiratory Rate 20 09/17/19 06:00 Blood Pressure 149/69 09/17/19 06:00 O2 Sat by Pulse Oximetry (%) 95 09/17/19 03:00 Eyes: Yes: WNL, Conjunctiva Clear, EOM Intact HENT: Yes: WNL, Atraumatic, Normocephalic Neck: Yes: WNL, Supple, Trachea Midline Cardiovascular: Yes: WNL, Regular Rate and Rhythm Respiratory: Yes: WNL, Regular, CTA Bilaterally Gastrointestinal: Yes: WNL, Normal Bowel Sounds Genitourinary: Yes: WNL Musculoskeletal: Yes: WNL Extremities: Yes: WNL Edema: No Integumentary: Yes: WNL Neurological: Yes: WNL, Alert, Oriented ...Motor Strength: WNL Psychiatric: Yes: WNL Labs: CBC, BMP 09/16/19 07:40 09/16/19 07:40 INR, PTT INR 1.53 (0.83-1.09) H 08/31/19 12:31 Problem List - Problems (1) BEKA (acute kidney injury) Code(s): N17.9 - ACUTE KIDNEY FAILURE, UNSPECIFIED (2) Acute urinary retention Code(s): R33.8 - OTHER RETENTION OF URINE (3) Gross hematuria Code(s): R31.0 - GROSS HEMATURIA (4) Leukocytosis Code(s): D72.829 - ELEVATED WHITE BLOOD CELL COUNT, UNSPECIFIED (5) Abdominal bloating Code(s): R14.0 - ABDOMINAL DISTENSION (GASEOUS) (6) Abdominal discomfort Code(s): R10.9 - UNSPECIFIED ABDOMINAL PAIN (7) Abnormal liver enzymes Code(s): R74.8 - ABNORMAL LEVELS OF OTHER SERUM ENZYMES (8) Acute respiratory failure with hypoxia and hypercapnia Code(s): J96.01 - ACUTE RESPIRATORY FAILURE WITH HYPOXIA; J96.02 - ACUTE RESPIRATORY FAILURE WITH HYPERCAPNIA (9) Anemia Code(s): D64.9 - ANEMIA, UNSPECIFIED Qualifiers: Anemia type: iron deficiency (10) Atrial fibrillation Code(s): I48.91 - UNSPECIFIED ATRIAL FIBRILLATION (11) BPH (benign prostatic hyperplasia) Code(s): N40.0 - BENIGN PROSTATIC HYPERPLASIA WITHOUT LOWER URINRY TRACT SYMP (12) CHF (congestive heart failure) Code(s): I50.9 - HEART FAILURE, UNSPECIFIED Qualifiers: Heart failure type: unspecified Heart failure chronicity: chronic Qualified Code(s): I50.9 - Heart failure, unspecified (13) Chronic combined systolic and diastolic CHF, NYHA class 4 Code(s): I50.42 - CHRONIC COMBINED SYSTOLIC AND DIASTOLIC HRT FAIL (14) Chronic hypoxemic respiratory failure Code(s): J96.11 - CHRONIC RESPIRATORY FAILURE WITH HYPOXIA (15) Depression Code(s): F32.9 - MAJOR DEPRESSIVE DISORDER, SINGLE EPISODE, UNSPECIFIED (16) Diabetes Code(s): E11.9 - TYPE 2 DIABETES MELLITUS WITHOUT COMPLICATIONS Qualifiers: Diabetes mellitus type: other specified (including TAN) Diabetes mellitus long-term insulin use: unspecified long-term insulin use status Diabetes mellitus complication status: with other specified complication Qualified Code (s): E13.69 - Other specified diabetes mellitus with other specified complication (17) Dyspnea Code(s): R06.00 - DYSPNEA, UNSPECIFIED Qualifiers: Dyspnea type: unspecified Qualified Code(s): R06.00 - Dyspnea, unspecified (18) Early satiety Code(s): R68.81 - EARLY SATIETY (19) Elevated troponin Code(s): R74.8 - ABNORMAL LEVELS OF OTHER SERUM ENZYMES (20) Extremity pain Code(s): M79.609 - PAIN IN UNSPECIFIED LIMB (21) Fall Code(s): W19.XXXA - UNSPECIFIED FALL, INITIAL ENCOUNTER (22) Gallstones Code(s): K80.20 - CALCULUS OF GALLBLADDER W/O CHOLECYSTITIS W/O OBSTRUCTION (23) HLD (hyperlipidemia) Code(s): E78.5 - HYPERLIPIDEMIA, UNSPECIFIED (24) Hypertension Code(s): I10 - ESSENTIAL (PRIMARY) HYPERTENSION Qualifiers: Hypertension type: unspecified Qualified Code(s): I10 - Essential (primary ) hypertension (25) Hypomagnesemia Code(s): E83.42 - HYPOMAGNESEMIA (26) Increased oxygen demand Code(s): R06.89 - OTHER ABNORMALITIES OF BREATHING (27) Morbid obesity Code(s): E66.01 - MORBID (SEVERE) OBESITY DUE TO EXCESS CALORIES (28) PSVT (paroxysmal supraventricular tachycardia) Code(s): I47.1 - SUPRAVENTRICULAR TACHYCARDIA (29) Paroxysmal A-fib Code(s): I48.0 - PAROXYSMAL ATRIAL FIBRILLATION (30) Pneumonia Code(s): J18.9 - PNEUMONIA, UNSPECIFIED ORGANISM (31) Prophylactic measure Code(s): Z29.9 - ENCOUNTER FOR PROPHYLACTIC MEASURES, UNSPECIFIED (32) Pulmonary HTN Code(s): I27.2 - OTHER SECONDARY PULMONARY HYPERTENSION * DO NOT USE * (33) Splenic artery aneurysm Code(s): I72.8 - ANEURYSM OF OTHER SPECIFIED ARTERIES (34) Symptomatic anemia Code(s): D64.9 - ANEMIA, UNSPECIFIED (35) Systolic CHF Code(s): I50.20 - UNSPECIFIED SYSTOLIC (CONGESTIVE) HEART FAILURE Assessment/Plan - Problems (1) UTI (urinary tract infection) Assessment/Plan: BPH; UTI Code(s): N39.0 - URINARY TRACT INFECTION, SITE NOT SPECIFIED (2) Paroxysmal A-fib Assessment/Plan: On metoprolol for HR control. On apixaban for anticoagulation. ECHO: normal LVEF; moderate TR; mild LAE. Code(s): I48.0 - PAROXYSMAL ATRIAL FIBRILLATION (3) Obesity (BMI 30.0-34.9) Code(s): E66.9 - OBESITY, UNSPECIFIED (4) Anemia Assessment/Plan: f/u hematology w/u Code(s): D64.9 - ANEMIA, UNSPECIFIED Qualifiers: Anemia type: iron deficiency (5) Diastolic CHF Assessment/Plan: On metoprolol, amlodipine, and furosemide. Start lisinopril (HTN; CHF; DM); may decrease or discontinue amlodipine if BP decreases too much. F/u BUN/Cr, electrolytes, daily wt, Is and Os. Code(s): I50.30 - UNSPECIFIED DIASTOLIC (CONGESTIVE) HEART FAILURE (6) Diabetes Assessment/Plan: On Januvia. Start ACEI (renal protection with DM; HTN). Code(s): E11.9 - TYPE 2 DIABETES MELLITUS WITHOUT COMPLICATIONS Qualifiers: Diabetes mellitus type: other specified (including TAN) Diabetes mellitus long-term insulin use: unspecified buttermaker helper insulin use status Diabetes mellitus complication status: with other specified complication Qualified Code (s): E13.69 - Other specified diabetes mellitus with other specified complication (7) Sleep apnea Assessment/Plan: on BiPAP. Code(s): G47.30 - SLEEP APNEA, UNSPECIFIED (8) Respiratory abnormalities Code(s): R06.9 - UNSPECIFIED ABNORMALITIES OF BREATHING (9) BPH (benign prostatic hyperplasia) Code(s): N40.0 - BENIGN PROSTATIC HYPERPLASIA WITHOUT LOWER URINRY TRACT SYMP (10) Depression Assessment/Plan: On Cymbalta. Code(s): F32.9 - MAJOR DEPRESSIVE DISORDER, SINGLE EPISODE, UNSPECIFIED
[2019-09-17] MEDS ORDERED: DULoxetine HCL 20 MG CAPSULE.DR PO SCH (10:00)
[2019-09-17] MEDS ORDERED: CEFTRIAXONE 1 GM in DEXTROSE 5%-WATER - 50 ML IVPB SCH (10:00)
[2019-09-17] MEDS ORDERED: LISINOPRIL 5 MG TABLET (FP) PO SCH (10:00)
[2019-09-17] MEDS ORDERED: PT OWN MED DRAWER 7, Y5N ONE (10:12)
[2019-09-17] MEDS: amLODIPine BESYLATE 5 MG TABLET (FP) PO SCH (10:55)
[2019-09-17] MEDS: FERROUS SO4 325 MG TABLET (FP) PO SCH (10:55)
[2019-09-17] MEDS: LIDOCAINE 5% TOPICAL PATCH TP SCH ×2 (10:55→10:56)
[2019-09-17] MEDS: MULTIVITAMINS (DAILY MVI) TABLET (FP) PO SCH (10:55)
[2019-09-17] MEDS: AZITHROMYCIN 250 MG TABLET PO SCH (10:55)
[2019-09-17] MEDS: ASPIRIN COATED 81 MG TABLET.EC PO SCH (10:55)
[2019-09-17] MEDS: FUROSEMIDE 40 MG/4 ML INJECTABLE VIAL IVPUSH SCH (10:55)
[2019-09-17] MEDS: TAMSULOSIN HCL 0.4 MG CAP PO SCH (10:55)
[2019-09-17] MEDS: APIXABAN 5 MG TABLET PO SCH (10:55)
[2019-09-17] MEDS: METOPROLOL TARTRATE 25 MG TABLET (FP) PO SCH (10:55)
[2019-09-17] MEDS: POTASSIUM CHLORIDE TABS 20 MEQ TABLET.ER (FP) PO SCH (10:56)
[2019-09-17] MEDS: POLYETHYLENE GLYCOL 3350 119 GM BTL PO SCH (11:15)
--- NOTE | 2019-09-17 11:17 | PN ---
Progress Note (short form) - Note Progress Note: Resting in NAD. No shortness of breath or chest pain. No cough or wheezing. No acute events overnight. Intake & Output 09/14/19 09/15/19 09/16/19 09/17/19 23:59 23:59 23:59 23:59 Intake Total 850 650 470 100 Balance 850 650 470 100 Last Vital Signs Temp Pulse Resp BP Pulse Ox 98.6 F 76 20 149/69 95 09/17/19 06:00 09/17/19 06:00 09/17/19 06:00 09/17/19 06:00 09/17/19 03:00 Active Medications Acetaminophen (Tylenol -) 650 mg PO Q6H PRN PRN Reason: PAIN SCALE 1-5 OR FEVER Last Admin: 09/13/19 13:04 Dose: 650 mg Acetaminophen (Tylenol -) 325 mg PO Q4H PRN PRN Reason: PAIN SCALE 6-10 Last Admin: 09/09/19 12:05 Dose: 325 mg Al Hydroxide/Mg Hydroxide (Mylanta Oral Suspension -) 30 ml PO Q6H PRN PRN Reason: DYSPEPSIA Last Admin: 09/17/19 04:00 Dose: 30 ml Albuterol Sulfate (Ventolin 0.083% Nebulizer Soln -) 1 amp NEB Q4H PRN PRN Reason: SHORT OF BREATH/WHEEZING Albuterol/Ipratropium (Duoneb -) 1 amp NEB RQID [facility] Last Admin: 09/17/19 08:00 Dose: 1 amp Amlodipine Besylate (Norvasc -) 5 mg PO DAILY [facility] Last Admin: 09/17/19 10:55 Dose: 5 mg Apixaban (Eliquis -) 5 mg PO BID [facility] Last Admin: 09/17/19 10:55 Dose: 5 mg Aspirin (Ecotrin -) 81 mg PO DAILY [facility] Last Admin: 09/17/19 10:55 Dose: 81 mg Atorvastatin Calcium (Lipitor -) 40 mg PO [facility] Last Admin: 09/16/19 21:05 Dose: 40 mg Azithromycin (Zithromax -) 250 mg PO DAILY [facility] Last Admin: 09/17/19 10:55 Dose: 250 mg Docusate Sodium (Colace -) 300 mg PO [facility] Last Admin: 09/16/19 21:06 Dose: 300 mg Duloxetine HCl (Cymbalta -) 20 mg PO DAILY [facility] Last Admin: 09/17/19 10:57 Dose: 20 mg Fentanyl (Sublimaze Injection -) 50 mcg IVPUSH [id number] PRN PRN Reason: PAIN-PACU ORDER X 4 DOSES ONLY Last Admin: 09/05/19 16:00 Dose: 50 mcg Ferrous Sulfate (Feosol -) 325 mg PO BID [facility] Last Admin: 09/17/19 10:55 Dose: 325 mg Furosemide (Lasix Injection -) 40 mg IVPUSH DAILY [facility] Last Admin: 09/17/19 10:55 Dose: 40 mg Gabapentin (Neurontin -) 300 mg PO TID [facility] Last Admin: 09/17/19 06:53 Dose: 300 mg Iron Sucrose 200 mg/ Sodium (Chloride) 100 mls @ 100 mls/hr IVPB Q48H [facility] Last Admin: 09/16/19 21:07 Dose: 100 mls/hr Lidocaine (Lidoderm Patch -) 1 patch TP DAILY [facility] Last Admin: 09/16/19 11:24 Dose: 1 patch Lisinopril (Prinivil) 2.5 mg PO DAILY [facility] Last Admin: 09/17/19 10:55 Dose: 2.5 mg Magnesium Hydroxide (Milk Of Magnesia -) 30 ml PO DAILY PRN PRN Reason: CONSTIPATION Last Admin: 09/09/19 09:37 Dose: 30 ml Melatonin (Melatonin) 3 mg PO HS [facility] Last Admin: 09/16/19 21:06 Dose: 3 mg Metoprolol Tartrate (Lopressor -) 25 mg PO BID [facility] Last Admin: 09/17/19 10:55 Dose: 25 mg Mineral Oil (Fleet Mineral Oil Rectal Enema -) 133 ml ME NOW PRN PRN Reason: CONSTIPATION Miscellaneous (Lidoderm Patch Removal) 1 each MC DAILY@2200 [facility] Last Admin: 09/16/19 23:17 Dose: 1 each Multivitamins/Minerals/Vitamin C (Tab-A-Vit -) 1 tab PO DAILY [facility] Last Admin: 09/17/19 10:55 Dose: 1 tab Ondansetron HCl (Zofran Injection) 4 mg IVPUSH Q6H PRN PRN Reason: NAUSEA AND/OR VOMITING Last Admin: 09/05/19 16:45 Dose: 4 mg Phenazopyridine HCl (Pyridium -) 200 mg PO TID [facility] Last Admin: 09/17/19 06:54 Dose: 200 mg Polyethylene Glycol (Miralax (For Daily Use) -) 17 gm PO DAILY [facility] Last Admin: 09/17/19 11:15 Dose: 17 gm Potassium Chloride (K-Dur -) 40 meq PO DAILY [facility] Last Admin: 09/17/19 10:56 Dose: 40 meq Senna (Senna -) 2 tab PO HS PRN PRN Reason: CONSTIPATION Last Admin: 09/04/19 11:29 Dose: 2 tab Sitagliptin Phosphate (Januvia -) 25 mg PO DAILY@0700 [facility] Last Admin: 09/17/19 06:53 Dose: 25 mg Tamsulosin HCl (Flomax -) 0.4 mg PO DAILY@0830 [facility] Last Admin: 09/17/19 10:55 Dose: 0.4 mg Gen: NAD at rest Heart: RRR Lung: decreased breath sounds at the bases Abd: soft, nontender Ext: trace edema A/P Acute on Chronic Diastolic Heart Failure Acute Kidney Injury Atrial Fibrillation BPH s/p Cystoscopy/TURP Hematuria UTI Anemia DM - Lasix - monitor urine output, creatinine - daily weights - O2 to keep SpO2 >90% - rate control - continue anticoagulation - monitor H/H - PO antibiotics - DVT prophylaxis - DC planning Dr Salgado
--- NOTE | 2019-09-17 13:01 | DS ---
Physical Examination Vital Signs: Vital Signs Temperature 98.6 F 09/17/19 06:00 Pulse Rate 76 09/17/19 06:00 Respiratory Rate 20 09/17/19 06:00 Blood Pressure 149/69 09/17/19 06:00 O2 Sat by Pulse Oximetry (%) 95 09/17/19 03:00 Findings/Remarks: CAN HAVE BONE BX AD ONCOLOGY WORKUP OUTPT CHRONIC PULMONARY ILLNESS 02 SUPPORT Constitutional: Yes: Mild Distress HENT: Yes: WNL Neck: Yes: WNL Cardiovascular: Yes: Regular Rate and Rhythm Respiratory: Yes: Diminished, On Nasal O2 Gastrointestinal: Yes: Soft Musculoskeletal: Yes: Muscle Weakness Edema: No Neurological: Yes: Pre-Existing Deficit Labs: CBC, BMP 09/16/19 07:40 09/16/19 07:40 Discharge Summary Problems reviewed: Yes Reason For Visit: GROSS HEMATURIA,ACUTE RETENTION OF URINE Current Active Problems BEKA (acute kidney injury) (Acute) Abdominal pain (Acute) Acute urinary retention (Acute) Anemia (Acute) Diastolic CHF (Acute) Gross hematuria (Acute) Leukocytosis (Acute) Obesity (BMI 30.0-34.9) (Acute) Respiratory abnormalities (Acute) Shortness of breath (Acute) Sleep apnea (Acute) UTI (urinary tract infection) (Acute) Procedures: Principal: LABS/XRAYS/CT SCANS/BONE SCANS Hospital Course: ADMITTED FOR ANEMIA, WEAKNESS, PULM DISTRESS, TREATED WITH WORKUP FOR PULMONARY/ HEMATOLOGY AND POSSIBLE PAGETS DISEASE. 02 SUPPORT AND PAIN CONTROL Plan of Treatment: FOLLOW UP AT [facility] FOR BONE BIOPSY IF NEEDED AND PULMONARY CARE 02 VIA MASK/NC Condition: Fair - Instructions Diet, Activity, Other Instructions: FOLLOW UP WITH DR PITTS ONCOLOGY FOLLOW UP WITH ANEMIA, IRON TREATMENTS AND CBC/BMP Q 4 DAYS Referrals: Jza Mendieta MD [Primary Care Provider] - Denis Elizabeth MD [Staff Physician] - Disposition: [facility] - Home Medications Comprehensive Discharge Medication List: Ambulatory Orders Alendronate Na [Fosamax (Weekly)] 70 mg PO WEEKLY 01/29/17 Atorvastatin Calcium 40 mg PO DAILY 01/29/17 Isosorbide Mononitrate [Imdur -] 60 mg PO DAILY 01/29/17 Sacubitril/Valsartan [Entresto 24 mg-26 mg Tablet] 1 tab PO BID 01/29/17 Aspirin Coated [Ecotrin -] 81 mg PO DAILY tablet.ec 11/05/17 Amlodipine Besylate 5 mg PO DAILY 05/04/18 Acetaminophen [Tylenol .Regular Strength -] 650 mg PO Q6H PRN tablet 03/07/19 Apixaban [Eliquis -] 5 mg PO BID tablet 03/07/19 Furosemide [Lasix -] 80 mg PO DAILY tablet 03/07/19 Insulin Sliding Scale [Novolog Vial Sliding Scale -] 1 vial SQ ACHS units 03/07 Potassium Chloride [K-Dur -] 40 meq PO DAILY tablet.er 03/07/19 Docusate Sodium [Colace] 300 mg PO HS 06/23/19 Dulcolax 10 mg MO DAILY PRN 06/23/19 Gabapentin 300 mg PO TID 06/23/19 Insulin Glargine,Hum.rec.anlog [Basaglar Kwikpen U-100] 20 unit SQ DAILY Iprat-Albut 0.5-3(2.5) mg/3 ml 3 ml NEB QID 06/23/19 Metolazone 2.5 mg PO ASDIR 06/23/19 Milk of Magnesia 5 5ml PO DAILY PRN 06/23/19 Oxycodone-Acetaminophen 10-325 10 mg PO Q8H PRN 06/23/19 Polyethylene Glycol 3350 [Miralax 119 gm Btl -] 17 gm PO DAILY 06/23/19 Tamsulosin HCl [Flomax] 0.4 mg PO DAILY 06/23/19 Zinc Oxide 20% Topical Oint 1 appful DAILY PRN 06/23/19 Lidocaine 5% Patch [Lidoderm -] 1 patch TP DAILY patch 07/01/19 Digoxin [Lanoxin -] 125 mcg PO DAILY 08/31/19 Mag Hydrox/Al Hydrox/Simeth [Mylanta Oral Suspension -] 30 ml PO QID 08/31/19 Melatonin 3 mg PO HS 08/31/19 Metoprolol Tartrate 25 mg PO BID 08/31/19 Multivitamin [Multiple Vitamins] 1 each PO DAILY 08/31/19 Acetaminophen [Tylenol .Regular Strength -] 325 mg PO Q4H PRN tablet 09/17/19 Albuterol 0.083% Nebulizer Emma [Ventolin 0.083% Nebulizer Soln -] 1 amp NEB Q4H PRN amp 09/17/19 Albuterol 2.5/Ipratropium 0.5 [Duoneb -] 1 amp NEB RQID amp 09/17/19 Azithromycin [Zithromax 250mg Tablets -] 250 mg PO DAILY tablet 09/17/19 Duloxetine HCl [Cymbalta -] 20 mg PO DAILY capsule. 09/17/19 Ferrous Sulfate [Feosol] 325 mg PO BID ud 09/17/19 Lisinopril [Prinivil] 2.5 mg PO DAILY tablet 09/17/19 Magnesium Hydrox 2400MG/30Ml [Milk of Magnesia -] 30 ml PO DAILY PRN cup Phenazopyridine HCl [Pyridium -] 200 mg PO TID tablet 09/17/19 Sennosides [Senna -] 2 tab PO HS PRN tablet 09/17/19 Sitagliptin Phosphate [Januvia -] 25 mg PO DAILY@0700 tab 09/17/19 Prescription Drug Monitoring Program (I-STOP) results: I-STOP not reviewed
[2019-09-17 14:50] VITALS: BP 137/68; TEMP 98.7
== END 2019-09-17 16:00 | DRG 665 ==
LOC: JER 10:33 → JERBED 14:53 → J5S 18:27
PROVIDERS: ADMIT Family Medicine; ATTEND Family Medicine
PROC: 30233N1 Transfusion of Nonautologous Red Blood Cells into Peripheral Vein, Percutaneous Approach (ICD-10-PCS; 2019-09-02)
PROC: 0V508ZZ Destruction of Prostate, Via Natural or Artificial Opening Endoscopic (ICD-10-PCS; principal; 2019-09-05 13:00)
PROC: 0TCB8ZZ Extirpation of Matter from Bladder, Via Natural or Artificial Opening Endoscopic (ICD-10-PCS; 2019-09-05 13:00)
DX: N39.0 Urinary tract infection, site not specified (principal); I50.33 Acute on chronic diastolic (congestive) heart failure; J18.9 Pneumonia, unspecified organism; N17.9 Acute kidney failure, unspecified; I48.0 Paroxysmal atrial fibrillation; D64.9 Anemia, unspecified; E78.5 Hyperlipidemia, unspecified; I10 Essential (primary) hypertension; E11.9 Type 2 diabetes mellitus without complications; D72.829 Elevated white blood cell count, unspecified; E66.9 Obesity, unspecified; R31.0 Gross hematuria; R33.9 Retention of urine, unspecified; N40.0 Benign prostatic hyperplasia without lower urinary tract symptoms; G47.30 Sleep apnea, unspecified; F32.9 Major depressive disorder, single episode, unspecified; E87.70 Fluid overload, unspecified
CPT/HCPCS: 36415; 36430; 36511; 36600; 71045-TC-FY; 74018-TC-FY; 74176-TC; 76700-TC; 76775-TC; 76856-TC; 78306-TC; 80048; 80053; 80162; 81003; 82272; 82565; 82607; 82728; 82747; 82784; 82803; 82962; 82977; 83540; 83550; 83735; 83880; 83883; 84100; 84153; 84155; 84156; 84165; 84436; 84443; 84540; 84550; 85014; 85025; 85027; 85610; 86334; 86850; 86900; 86901; 86922; 87040; 87086; 87186; 88300-TC; 93005; 93010; 93306-TC; 94010; 94640; 94660; 94760; 97116-GP; 97162-GP; 99285-25; A9503; J0131; J1439; J1756; P9038; P9058

== ENCOUNTER 2019-09-20 21:22 | Inpatient (IN) | payer OTHER ==
--- NOTE | 2019-09-20 22:06 | PDOC ---
History of Present Illness - General Chief Complaint: Shortness of Breath Stated Complaint: SOB Time Seen by Provider: 09/20/19 22:06 History Source: Patient, Custodial Records Exam Limitations: Clinical Condition (poor historian) - History of Present Illness Initial Comments: Pt is a 78 yo M, with PMH of COPD (on 3L home O2), DM, CHF (preserved EF), Afib (on eliquis), anemia, prostate CA (remote), and recent work-up/admission for LLL pneumonia and hematuria, who is presenting via EMS from [facility] with increased O2 demand and worsening clinical condition per MD records since his discharge from the hospital. Pt was last seen at [facility] for hematuria, and was found to also have LLL pneumonia and bone scan concerning for Pagett's disease. PT complains currently of "poor breathing and pain all over". Pt also endorses "feeling hot". He denies any productive cough, hemoptysis, leg swelling, chest pain, nausea/vomiting, or diarrhea. Allergies: NKDA PCP: Ida Emery Social: Pt denies any cigarette, alcohol, or drug use. Pt denies any recent travel or sick contacts. Surgical: prior prostate CA Family: no relevant history. 09/21/19 00:47 09/21/19 01:09 Past History - Travel Traveled outside of the country in the last 30 days: No Close contact w/someone who was outside of country & ill: No - Past Medical History Allergies/Adverse Reactions: Allergies Allergy/AdvReac Type Severity Reaction Status Date / Time No Known Allergies Allergy Verified 09/20/19 22:46 Home Medications: Ambulatory Orders Alendronate Na [Fosamax (Weekly)] 70 mg PO WEEKLY 01/29/17 Atorvastatin Calcium 40 mg PO HS 01/29/17 Aspirin Coated [Ecotrin -] 81 mg PO DAILY tablet.ec 11/05/17 Amlodipine Besylate 5 mg PO DAILY 05/04/18 Acetaminophen [Tylenol .Regular Strength -] 650 mg PO Q6H PRN tablet 03/07/19 Apixaban [Eliquis -] 5 mg PO BID tablet 03/07/19 Insulin Sliding Scale [Novolog Vial Sliding Scale -] 1 vial SQ ACHS units 03/07 Docusate Sodium [Colace] 300 mg PO HS 06/23/19 Gabapentin 300 mg PO TID 06/23/19 Insulin Glargine,Hum.rec.anlog [Basaglar Kwikpen U-100] 20 unit SQ DAILY Polyethylene Glycol 3350 [Miralax 119 gm Btl -] 17 gm PO DAILY 06/23/19 Tamsulosin HCl [Flomax] 0.4 mg PO DAILY 06/23/19 Zinc Oxide 20% Topical Oint 1 appful DAILY PRN 06/23/19 Lidocaine 5% Patch [Lidoderm -] 1 patch TP DAILY patch 07/01/19 Melatonin 3 mg PO HS 08/31/19 Metoprolol Tartrate 25 mg PO BID 08/31/19 Multivitamin [Multiple Vitamins] 1 each PO DAILY 08/31/19 Albuterol 2.5/Ipratropium 0.5 [Duoneb -] 1 amp NEB RQID amp 09/17/19 Duloxetine HCl [Cymbalta -] 20 mg PO DAILY capsule. 09/17/19 Ferrous Sulfate [Feosol] 325 mg PO BID ud 09/17/19 Lisinopril [Prinivil] 2.5 mg PO DAILY tablet 09/17/19 Magnesium Hydrox 2400MG/30Ml [Milk of Magnesia -] 30 ml PO DAILY PRN cup Sennosides [Senna -] 2 tab PO HS PRN tablet 09/17/19 Sitagliptin Phosphate [Januvia -] 25 mg PO DAILY@0700 tab 09/17/19 Mag Hydrox/Al Hydrox/Simeth [Mylanta *Suspension*] 30 ml PO Q6H 09/21/19 Oxycodone HCl 10 mg PO Q8H PRN 09/21/19 Phenazopyridine HCl [Pyridium] 200 mg PO TID 09/21/19 Piperacillin/Tazob 3.375 gm [Zosyn 3.375GM Ivpb (Pre-Docked)] 3.375 gm IVPB Q8H 09/21/19 Potassium Chloride [K-Dur -] 40 meq PO DAILY 09/21/19 Prednisone [Deltasone] 20 mg PO DAILY 09/21/19 Silver Sulfadiazine 1% Top Cr [Silvadene -] 1 applic TP DAILY 09/21/19 Anemia: Yes Asthma: No Cancer: Yes (prostate) Cardiac Disorders: Yes (cardiomyopathy,cad) CVA: No COPD: Yes (3L) CHF: Yes Dementia: No Diabetes: Yes GI Disorders: No Disorders: Yes (prostate CA) HTN: Yes Hypercholesterolemia: Yes Liver Disease: No Seizures: No Thyroid Disease: No - Surgical History Abdominal Surgery: No Appendectomy: No Cardiac Surgery: Yes (STENT PLACEMENT) Cholecystectomy: No Lung Surgery: No Neurologic Surgery: No Orthopedic Surgery: No - Immunization History Immunization Up to Date: No - Psycho Social/Smoking Cessation Hx Smoking Status: No Smoking History: Never smoked Have you smoked in the past 12 months: No Number of Cigarettes Smoked Daily: 0 Hx Alcohol Use: No Drug/Substance Use Hx: No Substance Use Type: None Hx Substance Use Treatment: No Respiratory Specific PMHX - Complaint Specific PMHX Hx Asthma: Yes (copd) Hx Intubation: No Hx Pneumonia: Yes Hx TB (Tuberculosis): No Review of Systems - Review of Systems Able to Perform ROS?: No (limited, see HPI) *Physical Exam - Vital Signs Last Vital Signs Temp Pulse Resp BP Pulse Ox 99.9 F H 85 26 H 102/91 99 09/20/19 21:30 09/20/19 21:30 09/20/19 21:30 09/20/19 21:30 09/20/19 21:30 - Physical Exam Comments: Vitals stable, O2 96-97% on 3L NC, pt with low-grade fever (99.9 oral). Pt in NAD, obese body habitus. Pt alert and oriented to person and place. 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 No midline spinal tenderness, step-offs, or crepitus. Edematous hands, wrists b/l with TTP throughout the hand and wrist joints. Head normocephalic, atraumatic. Eyes PERRLA, EOMI. Oropharynx without erythema or exudates, no LAD b/l. No nasal congestion. Hearing intact. Clear heart sounds, S1/S2, no JVD, b/l pedal edema, or heart murmur. Diminished lung sound b/l posterior bases, no crackles or wheezes. No acute respiratory distress or intercostal muscle use. No abdominal or CVA tenderness to palpation, no rebound, no guarding. Abdomen soft, non-distended, and with normoactive bowel sounds. Skin without jaundice or rash. 09/21/19 03:51 ED Treatment Course - LABORATORY CBC & Chemistry Diagram: 09/20/19 22:24 09/20/19 22:12 Medical Decision Making - Medical Decision Making Pt was seen at bedside, also will be seen by attending Dr. Polo. Pt presenting with respiratory distress (per MD records), pt complaining of "pain all over". Will evaluate for continued infection (pneumonia, UTI), COPD exacerbation, ACS, electrolyte imbalances. Provided IV ofirmev for improvement of pain. Will continue to reassess pt and monitor for symptomatic improvement. ECG: Afib RVR, LAD (HR 135, QRS 158, QTC 489). No TWIs or significant ST segment changes. No significant changes from prior ECG (09/01/2019). 09/21/19 04:01 CBC: WBC 18 -- unlikely elevated from recent prednisone (only 20 mg PO x2 days) CMP within pt baseline Trop <.02 with no new ECG changes Chest x-ray with continued LLL infiltrate, elevated WBC -- expanded abx coverage to IV vanc and cefepime and providing IVF NS. Spoke with Dr. Garcia (heme/onc) who did not have any additional recommendations at this time. Placed consult. Pt admitted to hospitalist team (Dr. Lugo) for continued IV abx, blood cultures pending. 09/21/19 04:09 Discharge - Discharge Information Problems reviewed: Yes Clinical Impression/Diagnosis: Paget's bone disease Leukocytosis Qualifiers: Leukocytosis type: unspecified Qualified Code(s): D72.829 - Elevated white blood cell count, unspecified Pneumonia Qualifiers: Pneumonia type: due to unspecified organism Laterality: left Lung location: lower lobe of lung Qualified Code(s): J18.9 - Pneumonia, unspecified organism Condition: Stable - Admission Yes - Follow up/Referral - Patient Discharge Instructions - Post Discharge Activity
[2019-09-20] MEDS ORDERED: ACETAMINOPHEN 1000 MG/100 ML VIAL (NON FORMULARY) IVPB ONE (22:14)
--- NOTE | 2019-09-20 22:21 | PDOC ---
Documentation entered by Milan Hubbard SCRIBE, acting as scribe for Selina Polo MD. Selina Polo MD: This documentation has been prepared by the Stevie cardona Daniel, SCRIBE, under my direction and personally reviewed by me in its entirety. I confirm that the documentation accurately reflects all work, treatment, procedures, and medical decision making performed by me. Attending Attestation - Resident Resident Name: LucienRenetta - ED Attending Attestation I have performed the following: I have examined & evaluated the patient, The case was reviewed & discussed with the resident, I agree w/resident's findings & plan, Exceptions are as noted - HPI HPI: 09/20/19 [id number] male brought in by ambulance from a [facility] for shortness of breath 09/20/19 22:39 The patient is a year old with a past medical history of diabetes, CHF, afib, anemia, COPD, HTN, and HLD here today from [facility] for evaluation of shortness of breath. The patient was recently discharged and was placed at [facility] where he was being treated with antibiotics for pneumonia. While at [facility] the patient was noted to be short of breath since yesterday. Patient denies headache, lightheadedness. Denies fever, chills. Denies chest pain, shortness of breath. Denies nausea, vomiting, diarrhea, abdominal pain. Allergies: NKA PCP: Jaz Mendieta - Physicial Exam PE: 09/20/19 22:39 GENERAL: Frail appearing 78 yo male BIBA for increasing shortness of breath HEENT: Normocephalic, atraumatic. PERRLA, EOMI. No conjunctival pallor. NECK: Supple. Full ROM. No JVD. Carotid pulses 2+ and symmetric, without bruits. CARDIOVASCULAR: Irregular rhythm PULMONARY: +diffuse scant rales. No evidence of respiratory distress. ABDOMINAL: Soft. Non-tender. Non-distended. No rebound or guarding. No organomegaly. Normoactive bowel sounds. MUSCULOSKELETAL No bony deformities or tenderness. No CVA tenderness. EXTREMITIES: No cyanosis. No edema. SKIN: Warm and dry. Normal capillary refill. No rashes. No jaundice. NEUROLOGICAL: Alert, awake, appropriate PSYCHIATRIC: Cooperative. Good eye contact. Appropriate mood and affect. 09/21/19 00:40 - Medical Decision Making 09/20/19 22:13 this pt has a PMH of copd on supplemental oxygen coming from [facility] where he has been receiving antibiotics and steroids for pneumonia/ copd pmh-Anemia, copd,diastolic chf, sleep apnea,urinary retention 09/21/19 01:02 pt admitted med/surg
[2019-09-20] MEDS ORDERED: ACETAMINOPHEN INJECTION 100 ML IVPB ONE (22:44)
[2019-09-20 22:45] LABS: BASO % 0.4 % (0-2.0); HEMATOCRIT 25.3 % (35.4-49); HEMOGLOBIN 7.7 GM/dL (11.7-16.9); LYMPH % 2.4 % (8-40); MCH 30.3 pg (25.7-33.7); MCHC 30.6 g/dl (32.0-35.9); MEAN CELL VOLUME 99.2 fl (80-96); MEAN PLT VOLUME 8.2 fl (7.5-11.1); MONO % 4.5 % (3.8-10.2); NEUT % 92.7 % (42.8-82.8); PLATELET COUNT 339 K/MM3 (134-434); RBC 2.55 M/mm3 (4.00-5.60); RDW 19.3 % (11.9-15.9); WHITE BLOOD COUNT 18.6 K/mm3 (4.0-10.0)
[2019-09-20 22:46] LABS: VENOUS PC02 57.6 mmHg (38-52); VENOUS PH 7.33 (7.31-7.41); VENOUS PO2 64.5 mmHg (28-48)
[2019-09-20 22:59] LABS: INR 3.09 (0.83-1.09); PROTHROMBIN TIME (PATIENT) 36.9 SEC (9.7-13.0)
[2019-09-20 23:31] LABS: ANISOCYTOSIS 1+; MACROCYTOSIS 1+; PLATELET ESTIMATE NORMAL
[2019-09-20] MEDS ORDERED: VANCOMYCIN 1,500 MG in DEXTROSE 5%-WATER - 250 ML IVPB ONE (23:34)
[2019-09-20] MEDS ORDERED: CEFEPIME HCL/D5W 2 GM/50 ML BAG IVPB ONE (23:34)
[2019-09-20 23:38] LABS: ALBUMIN 2.4 g/dl (3.4-5.0); BILIRUBIN,TOTAL 1.5 mg/dL (0.2-1); BLOOD UREA NITROGEN 37.5 mg/dL (7-18); CALCIUM 8.9 mg/dL (8.5-10.1); CREATININE 1.5 mg/dL (0.55-1.3); N-TERMINAL BNP 3352.4 pg/ml (5-450); POTASSIUM 4.7 mmol/L (3.5-5.1); TOT PROT 6.3 g/dl (6.4-8.2)
[2019-09-20] MEDS ORDERED: SODIUM CHLORIDE 1,000 ML IV STA ×2 (23:43→23:45)
--- NOTE | 2019-09-21 01:12 | HP ---
Admitting History and Physical - Primary Care Physician PCP: Jaz Mendieta - Admission Chief Complaint: SOB History of Present Illness: This is a 78 y/o man from [facility] with a PMHx of COPD (3L), HTN, HLD, CAD (s/p Stent), DM, CHF (pEF), Afib (on Eliquis), Anemia, Prostate Ca. Recent admission 08/31-09/17 for Hematuria, Urinary Retention, treated for LLL Pneumonia. Who presents to the ED for SOB. Pt was last seen at [facility] for hematuria, and was found to also have LLL pneumonia and bone scan concerning for Pagett's disease. PT complains currently of "poor breathing and pain all over". Pt also endorses "feeling hot". He denies any productive cough, hemoptysis, leg swelling, chest pain, nausea/vomiting, or diarrhea. History Source: Patient, Transfer Record Limitations to Obtaining History: No Limitations - Past Medical History Cardiovascular: Yes: AFIB, CAD, CHF (low normal LVEF on 02/25 ECHO), HTN, Hyperlipdemia, Pulmonary Hypertension Pulmonary: Yes: COPD, O2 Dependent, Other (pulmonary htn) Gastrointestinal: Yes: Other (colon polyps). No: Ascites Renal/: Yes: BPH, Other (prostate ca) Heme/Onc: Yes: Anemia Endocrine: Yes: Diabetes Mellitus - Past Surgical History Past Surgical History: Yes: Stent - Smoking History Smoking history: Never smoked Have you smoked in the past 12 months: No Aproximately how many cigarettes per day: 0 - Alcohol/Substance Use Hx Alcohol Use: No History of Substance Use: reports: None - Social History Usual Living Arrangement: Yes: Longterm ADL: Support Services History of Recent Travel: No Home Medications - Allergies Allergies/Adverse Reactions: Allergies Allergy/AdvReac Type Severity Reaction Status Date / Time No Known Allergies Allergy Verified 09/20/19 22:46 - Home Medications Home Medications: Ambulatory Orders Alendronate Na [Fosamax (Weekly)] 70 mg PO WEEKLY 01/29/17 Atorvastatin Calcium 40 mg PO HS 01/29/17 Aspirin Coated [Ecotrin -] 81 mg PO DAILY tablet.ec 11/05/17 Amlodipine Besylate 5 mg PO DAILY 05/04/18 Acetaminophen [Tylenol .Regular Strength -] 650 mg PO Q6H PRN tablet 03/07/19 Apixaban [Eliquis -] 5 mg PO BID tablet 03/07/19 Insulin Sliding Scale [Novolog Vial Sliding Scale -] 1 vial SQ ACHS units 03/07 Docusate Sodium [Colace] 300 mg PO HS 06/23/19 Gabapentin 300 mg PO TID 06/23/19 Insulin Glargine,Hum.rec.anlog [Basaglar Kwikpen U-100] 20 unit SQ DAILY Polyethylene Glycol 3350 [Miralax 119 gm Btl -] 17 gm PO DAILY 06/23/19 Tamsulosin HCl [Flomax] 0.4 mg PO DAILY 06/23/19 Zinc Oxide 20% Topical Oint 1 appful DAILY PRN 06/23/19 Lidocaine 5% Patch [Lidoderm -] 1 patch TP DAILY patch 07/01/19 Melatonin 3 mg PO HS 08/31/19 Metoprolol Tartrate 25 mg PO BID 08/31/19 Multivitamin [Multiple Vitamins] 1 each PO DAILY 08/31/19 Albuterol 2.5/Ipratropium 0.5 [Duoneb -] 1 amp NEB RQID amp 09/17/19 Duloxetine HCl [Cymbalta -] 20 mg PO DAILY capsule. 09/17/19 Ferrous Sulfate [Feosol] 325 mg PO BID ud 09/17/19 Lisinopril [Prinivil] 2.5 mg PO DAILY tablet 09/17/19 Magnesium Hydrox 2400MG/30Ml [Milk of Magnesia -] 30 ml PO DAILY PRN cup Sennosides [Senna -] 2 tab PO HS PRN tablet 09/17/19 Sitagliptin Phosphate [Januvia -] 25 mg PO DAILY@0700 tab 09/17/19 Mag Hydrox/Al Hydrox/Simeth [Mylanta *Suspension*] 30 ml PO Q6H 09/21/19 Oxycodone HCl 10 mg PO Q8H PRN 09/21/19 Phenazopyridine HCl [Pyridium] 200 mg PO TID 09/21/19 Piperacillin/Tazob 3.375 gm [Zosyn 3.375GM Ivpb (Pre-Docked)] 3.375 gm IVPB Q8H 09/21/19 Potassium Chloride [K-Dur -] 40 meq PO DAILY 09/21/19 Prednisone [Deltasone] 20 mg PO DAILY 09/21/19 Silver Sulfadiazine 1% Top Cr [Silvadene -] 1 applic TP DAILY 09/21/19 Family Medical History Family History: Unable to Obtain Review of Systems - Review of Systems Constitutional: reports: No Symptoms Eyes: reports: No Symptoms HENT: reports: No Symptoms Neck: reports: No Symptoms Cardiovascular: reports: Shortness of Breath Respiratory: reports: SOB Gastrointestinal: reports: No Symptoms Genitourinary: reports: No Symptoms Breasts: reports: No Symptoms Reported Musculoskeletal: reports: No Symptoms Integumentary: reports: No Symptoms Neurological: reports: No Symptoms Endocrine: reports: No Symptoms Hematology/Lymphatic: reports: No Symptoms Psychiatric: reports: No Symptoms Physical Examination Vital Signs: Vital Signs Temperature 99.9 F H 09/20/19 21:30 Pulse Rate 85 09/20/19 21:30 Respiratory Rate 26 H 09/20/19 21:30 Blood Pressure 102/91 09/20/19 21:30 O2 Sat by Pulse Oximetry (%) 99 09/20/19 21:30 Constitutional: Yes: Mild Distress, Obese Eyes: Yes: WNL, Conjunctiva Clear, EOM Intact, PERRL HENT: Yes: WNL, Atraumatic, Normocephalic Neck: Yes: WNL, Supple, Trachea Midline Cardiovascular: Yes: WNL, Pulse Irregular, S1, S2 Respiratory: Yes: Diminished, On Nasal O2, Rhonchi Gastrointestinal: Yes: WNL, Normal Bowel Sounds, Soft, Abdomen, Obese ...Rectal Exam: Yes: Deferred Renal/: Yes: WNL Breast(s): Yes: WNL Musculoskeletal: Yes: Back Pain, Joint Stiffness, Joint Swelling Extremities: Yes: WNL Peripheral Pulses WNL: Yes Neurological: Yes: WNL, Alert, Oriented, Cran Nerves II-XII Intact ...Motor Strength: WNL Psychiatric: Yes: WNL, Alert, Oriented Labs: CBC, BMP 09/20/19 22:24 09/20/19 22:12 Laboratory Results - last 24 hr 09/20/19 09/20/19 09/20/19 22:12 22:24 22:24 WBC RBC Hgb Hct MCV MCH MCHC RDW Plt Count MPV Absolute Neuts (auto) Neutrophils % Neutrophils % (Manual) Band Neutrophils % Lymphocytes % Lymphocytes % (Manual) Monocytes % Monocytes % (Manual) Eosinophils % Eosinophils % (Manual) Basophils % Basophils % (Manual) Myelocytes % (Man) Promyelocytes % (Man) Blast Cells % (Manual) Nucleated RBC % Metamyelocytes Hypochromia Platelet Estimate Platelet Comment Polychromasia Poikilocytosis Anisocytosis Microcytosis Macrocytosis PT with INR INR VBG pH 7.33 POC VBG pCO2 57.6 H POC VBG pO2 64.5 H VBG HCO3 29.5 H VBG O2 Sat (Amy) 88.0 H VBG Base Excess 3.8 H Sodium 138 Potassium 4.7 Chloride 101 Carbon Dioxide 30 Anion Gap 7 L BUN 37.5 H Creatinine 1.5 H Est GFR (CKD-EPI)AfAm 51.31 Est GFR (CKD-EPI)NonAf 44.27 Random Glucose 185 H Calcium 8.9 Total Bilirubin 1.5 H AST 44 H ALT 41 Alkaline Phosphatase 130 H Creatine Kinase 38 Troponin I 0.03 B-Natriuretic Peptide 3352.4 H Total Protein 6.3 L Albumin 2.4 L Blood Type Antibody Screen 09/20/19 09/20/19 09/20/19 22:24 22:24 22:24 WBC 18.6 H RBC 2.55 L Hgb 7.7 L Hct 25.3 L MCV 99.2 H MCH 30.3 MCHC 30.6 L RDW 19.3 H Plt Count 339 MPV 8.2 D Absolute Neuts (auto) 17.2 H Neutrophils % 92.7 H Neutrophils % (Manual) 93.3 H Band Neutrophils % 0.0 Lymphocytes % 2.4 L D Lymphocytes % (Manual) 2.9 L D Monocytes % 4.5 Monocytes % (Manual) 4 Eosinophils % 0.0 D Eosinophils % (Manual) 0.0 D Basophils % 0.4 Basophils % (Manual) 0.0 Myelocytes % (Man) 0 D Promyelocytes % (Man) 0 Blast Cells % (Manual) 0 Nucleated RBC % 0 Metamyelocytes 0 Hypochromia 1+ Platelet Estimate Normal Platelet Comment No clumping noted Polychromasia 1+ Poikilocytosis 0 Anisocytosis 1+ Microcytosis 0 Macrocytosis 1+ PT with INR INR VBG pH POC VBG pCO2 POC VBG pO2 VBG HCO3 VBG O2 Sat (Amy) VBG Base Excess Sodium Potassium Chloride Carbon Dioxide Anion Gap BUN Creatinine Est GFR (CKD-EPI)AfAm Est GFR (CKD-EPI)NonAf Random Glucose Calcium Total Bilirubin AST ALT Alkaline Phosphatase Creatine Kinase Troponin I B-Natriuretic Peptide Cancelled Total Protein Albumin Blood Type O POSITIVE Antibody Screen Negative 09/20/19 22:24 WBC RBC Hgb Hct MCV MCH MCHC RDW Plt Count MPV Absolute Neuts (auto) Neutrophils % Neutrophils % (Manual) Band Neutrophils % Lymphocytes % Lymphocytes % (Manual) Monocytes % Monocytes % (Manual) Eosinophils % Eosinophils % (Manual) Basophils % Basophils % (Manual) Myelocytes % (Man) Promyelocytes % (Man) Blast Cells % (Manual) Nucleated RBC % Metamyelocytes Hypochromia Platelet Estimate Platelet Comment Polychromasia Poikilocytosis Anisocytosis Microcytosis Macrocytosis PT with INR 36.90 H INR 3.09 H VBG pH POC VBG pCO2 POC VBG pO2 VBG HCO3 VBG O2 Sat (Amy) VBG Base Excess Sodium Potassium Chloride Carbon Dioxide Anion Gap BUN Creatinine Est GFR (CKD-EPI)AfAm Est GFR (CKD-EPI)NonAf Random Glucose Calcium Total Bilirubin AST ALT Alkaline Phosphatase Creatine Kinase Troponin I B-Natriuretic Peptide Total Protein Albumin Blood Type Antibody Screen Intake & Output 09/18/19 09/19/19 09/20/19 09/21/19 23:59 23:59 23:59 23:59 Weight 97.522 kg Imaging - Results Chest X-ray: Image Reviewed EKG: Image Reviewed Problem List - Problems (1) Pneumonia Code(s): J18.9 - PNEUMONIA, UNSPECIFIED ORGANISM Qualifiers: Pneumonia type: due to unspecified organism Laterality: left Lung location: lower lobe of lung Qualified Code(s): J18.9 - Pneumonia, unspecified organism (2) Paget's bone disease Code(s): M88.9 - OSTEITIS DEFORMANS OF UNSPECIFIED BONE (3) BEKA (acute kidney injury) Code(s): N17.9 - ACUTE KIDNEY FAILURE, UNSPECIFIED (4) Anemia Code(s): D64.9 - ANEMIA, UNSPECIFIED (5) Atrial fibrillation Code(s): I48.91 - UNSPECIFIED ATRIAL FIBRILLATION (6) BPH (benign prostatic hyperplasia) Code(s): N40.0 - BENIGN PROSTATIC HYPERPLASIA WITHOUT LOWER URINRY TRACT SYMP (7) Chronic combined systolic and diastolic CHF, NYHA class 4 Code(s): I50.42 - CHRONIC COMBINED SYSTOLIC AND DIASTOLIC HRT FAIL (8) Chronic hypoxemic respiratory failure Code(s): J96.11 - CHRONIC RESPIRATORY FAILURE WITH HYPOXIA (9) Depression Code(s): F32.9 - MAJOR DEPRESSIVE DISORDER, SINGLE EPISODE, UNSPECIFIED (10) Diabetes Code(s): E11.9 - TYPE 2 DIABETES MELLITUS WITHOUT COMPLICATIONS Qualifiers: Diabetes mellitus type: other specified (including TAN) Diabetes mellitus bleach analyst insulin use: unspecified bleach analyst insulin use status Diabetes mellitus complication status: with other specified complication Qualified Code (s): E13.69 - Other specified diabetes mellitus with other specified complication (11) HLD (hyperlipidemia) Code(s): E78.5 - HYPERLIPIDEMIA, UNSPECIFIED (12) Hypertension Code(s): I10 - ESSENTIAL (PRIMARY) HYPERTENSION Qualifiers: Hypertension type: unspecified Qualified Code(s): I10 - Essential (primary ) hypertension (13) Obesity (BMI 30.0-34.9) Code(s): E66.9 - OBESITY, UNSPECIFIED Assessment/Plan This is a 78 y/o man with a PMHx of COPD (3L), HTN, HLD, CAD (s/p Stent), DM, CHF (pEF), Afib (on Eliquis), Anemia, Prostate Ca. Recent admission 08/31-09/17 for Hematuria, Urinary Retention, treated for LLL Pneumonia. Admitted to M/S for Pneumonia, Acute Exacerbation of COPD, UTI, Paget's Disease for further evaluation of their emergent condition. Plan: Admit to M/S Worsening Pneumonia likely secondary to failed outpatient therapy. UA- +3 blood, +3 leukocyte esterase, +nitrates, 67 WBC, 360 Bacteria Blood Cultures-pending Urine Culture-pending Urine Legionella Appreciate ID consult Appreciate Oncology consult for Paget's Disease Appreciate Pulmonology consult Continue Cefipime, Vancomycin Monitor CBC, BMP Monitor vitals O2 Continue home meds FEN- Fluid Restriction, Replete lytes prn, Low Na, Diabetic Diet DVT ppx- OOB, SCDs, Continue Eliquis Dispo: Requires Inpatient Care Visit type - Emergency Visit Emergency Visit: Yes ED Registration Date: 09/20/19 Care time: The patient presented to the Emergency Department on the above date and was hospitalized for further evaluation of their emergent condition. - New Patient This patient is new to me today: Yes Date on this admission: 09/21/19 - Critical Care Critical Care patient: No
[2019-09-21 02:57] LABS: URINE APPEARANCE Cloudy; URINE BILIRUBIN 3+ (NEGATIVE); URINE COLOR Red; URINE GLUCOSE (UA) Trace (NEGATIVE); URINE KETONE 1+ (NEGATIVE); URINE LEUK ESTERASE 3+ (NEGATIVE); URINE NITRITE Positive (NEGATIVE); URINE PROTEIN 3+ (NEGATIVE); URINE UROBILINOGEN 4.0 E.U/dl mg/dL (0.2-1.0)
[2019-09-21 06:15] LABS: EPI CELLS FEW /HPF (0-5/HPF); HYALINE CASTS 9 /lpf (0-8); URINE BACTERIA 360 /hpf (NEGATIVE); URINE RBC 2310 /hpf (0-4); URINE WBC 67 /hpf (0-5)
[2019-09-21] MEDS ORDERED: ACETAMINOPHEN 325 MG TABLET (FP) PO PRN ×3 (06:22→22:06)
[2019-09-21] MEDS: GABAPENTIN 300 MG CAPSULE (FP) PO SCH ×3 (07:31→22:07)
[2019-09-21] MEDS: ALBUTEROL SO4 2.5/IPRATROPIUM 0.5 INH SOL 3 ML VIAL.NEB. NEB SCH ×4 (08:00→21:42)
[2019-09-21] MEDS ORDERED: FERROUS SO4 325 MG TABLET (FP) PO SCH (08:00)
[2019-09-21] MEDS: TAMSULOSIN HCL 0.4 MG CAP PO SCH (08:29)
[2019-09-21 09:10] LABS: BASO % 0.1 % (0-2.0); EOS % 0.1 % (0-4.5); HEMATOCRIT 23.8 % (35.4-49); HEMOGLOBIN 7.4 GM/dL (11.7-16.9); MCH 30.5 pg (25.7-33.7); MEAN CELL VOLUME 98.4 fl (80-96); MEAN PLT VOLUME 7.7 fl (7.5-11.1); MONO % 4.2 % (3.8-10.2); NEUT % 92.6 % (42.8-82.8); PLATELET COUNT 300 K/MM3 (134-434); RBC 2.41 M/mm3 (4.00-5.60); RDW 19.4 % (11.9-15.9); WHITE BLOOD COUNT 15.9 K/mm3 (4.0-10.0)
[2019-09-21 09:39] LABS: BLOOD UREA NITROGEN 44.5 mg/dL (7-18); CALCIUM 8.6 mg/dL (8.5-10.1); CREATININE 1.5 mg/dL (0.55-1.3); POTASSIUM 4.3 mmol/L (3.5-5.1)
[2019-09-21] MEDS ORDERED: HEPARIN NA (PORCINE) 5,000 UNITS/ML 1ML VIAL SQ SCH (10:00)
--- NOTE | 2019-09-21 10:06 | CON.ID ---
Consult Reason for Consultation:: UTI, pneumonia - History of Present Illness Chief Complaint: shortness of breath History of Present Illness: Mr. Peguero is a 78y/o male from [facility] with recent hospital admission (-09/17) for proteus UTI, hematuria, and urinary retention (treated with ceftriaxone and cystoscopy/TURP) as well as LLL pneumonia (started on Zosyn in [place] after discharge). Pt has COPD (3L NC), pulmonary HTN, HFpEF, hx of prostate cancer, BPH, HTN, CAD (s/p stent), HLD, DM2, chronic anemia, and gout. He was to follow up with oncology for potential Paget's disease diagnosis as well per chart. He presents with SOB and generalized arthralgias that have worsened since discharge. He reports being able to ambulate with a walker prior to previous admission and has become progressively weaker and has increased pain. He was able to do PT at [place] in between admissions. He reports the most pain in the left knee and ankle. He denies chills, fever, cough, wheezing, abdominal pain, nausea, or dysuria. - History Source History Provided By: Patient, Medical Record, Transfer Record Limitations to Obtaining History: Poor Historian - Past Medical History Cardio/Vascular: Yes: AFIB, CAD, CHF (low normal LVEF on 02/25 ECHO), HTN, Hyperlipdemia, Pulmonary Hypertension Pulmonary: Yes: COPD, O2 Dependent, Other (pulmonary htn) Gastrointestinal: Yes: Other (colon polyps). No: Ascites Renal/: Yes: BPH, Other Heme/Onc: Yes: Anemia, Cancer (hx prostate cancer) Psych: Yes: Depression (diagnosed 09/2019) Rheumatology: Yes: Gout Endocrine: Yes: Diabetes Mellitus - Past Surgical History Past Surgical History: Yes: Stent - Alcohol/Substance Use Hx Alcohol Use: No History of Substance Use: reports: None - Smoking History Smoking history: Never smoked Have you smoked in the past 12 months: No Aproximately how many cigarettes per day: 0 - Social History Usual Living Arrangement: [facility] ADL: Support Services History of Recent Travel: No Home Medications - Allergies Allergies/Adverse Reactions: Allergies Allergy/AdvReac Type Severity Reaction Status Date / Time No Known Allergies Allergy Verified 09/20/19 22:46 - Home Medications Home Medications: Ambulatory Orders Alendronate Na [Fosamax (Weekly)] 70 mg PO WEEKLY 01/29/17 Atorvastatin Calcium 40 mg PO HS 01/29/17 Aspirin Coated [Ecotrin -] 81 mg PO DAILY tablet.ec 11/05/17 Amlodipine Besylate 5 mg PO DAILY 05/04/18 Acetaminophen [Tylenol .Regular Strength -] 650 mg PO Q6H PRN tablet 03/07/19 Apixaban [Eliquis -] 5 mg PO BID tablet 03/07/19 Insulin Sliding Scale [Novolog Vial Sliding Scale -] 1 vial SQ ACHS units 03/07 Docusate Sodium [Colace] 300 mg PO HS 06/23/19 Gabapentin 300 mg PO TID 06/23/19 Insulin Glargine,Hum.rec.anlog [Basaglar Kwikpen U-100] 20 unit SQ DAILY Polyethylene Glycol 3350 [Miralax 119 gm Btl -] 17 gm PO DAILY 06/23/19 Tamsulosin HCl [Flomax] 0.4 mg PO DAILY 06/23/19 Zinc Oxide 20% Topical Oint 1 appful DAILY PRN 06/23/19 Lidocaine 5% Patch [Lidoderm -] 1 patch TP DAILY patch 07/01/19 Melatonin 3 mg PO HS 08/31/19 Metoprolol Tartrate 25 mg PO BID 08/31/19 Multivitamin [Multiple Vitamins] 1 each PO DAILY 08/31/19 Albuterol 2.5/Ipratropium 0.5 [Duoneb -] 1 amp NEB RQID amp 09/17/19 Duloxetine HCl [Cymbalta -] 20 mg PO DAILY capsule. 09/17/19 Ferrous Sulfate [Feosol] 325 mg PO BID ud 09/17/19 Lisinopril [Prinivil] 2.5 mg PO DAILY tablet 09/17/19 Magnesium Hydrox 2400MG/30Ml [Milk of Magnesia -] 30 ml PO DAILY PRN cup Sennosides [Senna -] 2 tab PO HS PRN tablet 09/17/19 Sitagliptin Phosphate [Januvia -] 25 mg PO DAILY@0700 tab 09/17/19 Mag Hydrox/Al Hydrox/Simeth [Mylanta *Suspension*] 30 ml PO Q6H 09/21/19 Oxycodone HCl 10 mg PO Q8H PRN 09/21/19 Phenazopyridine HCl [Pyridium] 200 mg PO TID 09/21/19 Piperacillin/Tazob 3.375 gm [Zosyn 3.375GM Ivpb (Pre-Docked)] 3.375 gm IVPB Q8H 09/21/19 Potassium Chloride [K-Dur -] 40 meq PO DAILY 09/21/19 Prednisone [Deltasone] 20 mg PO DAILY 09/21/19 Silver Sulfadiazine 1% Top Cr [Silvadene -] 1 applic TP DAILY 09/21/19 Review of Systems - Review of Systems Constitutional: denies: Chills, Fever Cardiovascular: denies: Chest Pain Respiratory: reports: SOB. denies: Cough, Wheezing Gastrointestinal: denies: Abdominal Pain, Nausea Genitourinary: denies: Burning Musculoskeletal: reports: Back Pain, Joint Pain, Joint Swelling Physical Exam Vital Signs: Vital Signs Temperature 98.4 F 09/21/19 04:11 Pulse Rate 108 H 09/21/19 04:11 Respiratory Rate 20 09/21/19 04:35 Blood Pressure 110/66 09/21/19 04:11 O2 Sat by Pulse Oximetry (%) 96 09/21/19 04:35 Constitutional: Yes: Mild Distress Eyes: Yes: Conjunctiva Clear, EOM Intact HENT: Yes: Atraumatic, Normocephalic Neck: Yes: Supple, Trachea Midline. No: Lymphadenopathy Cardiovascular: Yes: Tachycardia, Other (regular rhythm). No: Murmur Respiratory: Yes: Diminished (anterior). No: Wheezes Gastrointestinal: Yes: Normal Bowel Sounds, Abdomen, Obese, Tenderness (mild, generalized) Musculoskeletal: Yes: Joint Swelling (bilateral ankles, knees, wrists) Extremities: No: Cool Edema: LLE: 2+, RLE: 1+ Integumentary: Yes: Other (pressure changes on back per nurse) Psychiatric: Yes: Alert, Oriented Labs: CBC, BMP 09/21/19 07:58 09/21/19 07:58 Imaging - Results Chest X-ray: Report Reviewed (no evidence of active pulmonary disease; organomegaly present; elevated left hemidiaphragm), Image Reviewed EKG: Report Reviewed, Image Reviewed (A-fib with RVR HR 135, LAD, RBBB, old septal infarct, QTc 489) Assessment/Plan Mr. McClarence is a 78y/o male who presents from [facility] with SOB and arthralgias. Pt was discharged on 09/17 after tx for proteus UTI and LLL pneumonia. #polyarticular arthralgia, possibly 2/2 gout #r/o urinary retention #r/o pneumonia -uric acid -ESR, CRP -MRSA screen -vanc level tomorrow morning -Zosyn 3.375mg Q8H -consider steroids for pain management/swelling -rheum consulted by primary
--- NOTE | 2019-09-21 10:24 | EKG ---
Test Reason : Blood Pressure : / mmHG Vent. Rate : 135 BPM Atrial Rate : 144 BPM P-R Int : 000 ms QRS Dur : 158 ms QT Int : 326 ms P-R-T Axes : 000 -81 026 degrees QTc Int : 489 ms ATRIAL FIBRILLATION WITH RAPID VENTRICULAR RESPONSE LEFT AXIS DEVIATION RIGHT BUNDLE BRANCH BLOCK SEPTAL INFARCT (CITED ON OR BEFORE 31-AUG-2019) ABNORMAL ECG WHEN COMPARED WITH ECG OF 01-SEP-2019 08:37, ATRIAL FIBRILLATION HAS REPLACED SINUS RHYTHM Confirmed by XIAO TORRES, HARSH ([id number]) on 09/21/2019 10:23:45 AM Referred By: Confirmed By:HARSH HAGEN MD
[2019-09-21 10:40] LABS: ANISOCYTOSIS 2+; MACROCYTOSIS 0; PLATELET ESTIMATE NORMAL
--- NOTE | 2019-09-21 10:50 | PN ---
Progress Note, Physician Chief Complaint: SOB UTI Anemia History of Present Illness: toxic appearing mild distress, c/o generalized pain polyarticular arthritis with multiple joint swelling SOB on exertion - Current Medication List Current Medications: Active Medications Acetaminophen (Tylenol -) 650 mg PO Q6H PRN PRN Reason: PAIN LEVEL 6-10 Albuterol/Ipratropium (Duoneb -) 1 amp NEB RQID [facility] Amlodipine Besylate (Norvasc -) 5 mg PO DAILY [facility] Apixaban (Eliquis -) 5 mg PO BID [facility] Aspirin (Ecotrin -) 81 mg PO DAILY [facility] Atorvastatin Calcium (Lipitor -) 40 mg PO HS [facility] Docusate Sodium (Colace -) 300 mg PO HS [facility] Duloxetine HCl (Cymbalta -) 20 mg PO DAILY [facility] Ferrous Sulfate (Feosol -) 325 mg PO BIDWM [facility] Gabapentin (Neurontin -) 300 mg PO TID [facility] Last Admin: 09/21/19 07:31 Dose: 300 mg Lidocaine (Lidoderm Patch -) 1 patch TP DAILY [facility] Lisinopril (Prinivil) 2.5 mg PO DAILY [facility] Metoprolol Tartrate (Lopressor -) 25 mg PO BID [facility] Miscellaneous (Lidoderm Patch Removal) 1 each MC DAILY@2200 [facility] Multivitamins/Minerals/Vitamin C (Tab-A-Vit -) 1 tab PO DAILY [facility] Sitagliptin Phosphate (Januvia -) 25 mg PO DAILY@0700 [facility] Last Admin: 09/21/19 07:31 Dose: 25 mg Tamsulosin HCl (Flomax -) 0.4 mg PO DAILY@0830 [facility] - Objective Vital Signs: Vital Signs Temperature 98.4 F 09/21/19 04:11 Pulse Rate 108 H 09/21/19 04:11 Respiratory Rate 20 09/21/19 04:35 Blood Pressure 110/66 09/21/19 04:11 O2 Sat by Pulse Oximetry (%) 96 09/21/19 04:35 Constitutional: Yes: Well Nourished, Calm, Mild Distress, Obese Cardiovascular: Yes: Tachycardia Respiratory: Yes: On Nasal O2, SOB, SOB on Exertion Gastrointestinal: Yes: Normal Bowel Sounds, Soft, Abdomen, Obese Genitourinary: Yes: WNL Musculoskeletal: Yes: Joint Stiffness (generalized), Joint Swelling (generalized , multiple), Muscle Weakness Edema: No Peripheral Pulses WNL: Yes Neurological: Yes: Alert, Oriented Psychiatric: Yes: Alert, Oriented Labs: CBC, BMP 09/21/19 07:58 09/21/19 07:58 INR, PTT INR 3.09 (0.83-1.09) H 09/20/19 22:24 Problem List - Problems (1) Leukocytosis Assessment/Plan: -monitor trend -Seen by ID -Cultures pending -Tylenol for fever>100.0F -Received Vanco in ER Problems reviewed: Yes Code(s): D72.829 - ELEVATED WHITE BLOOD CELL COUNT, UNSPECIFIED Qualifiers: Leukocytosis type: unspecified Qualified Code(s): D72.829 - Elevated white blood cell count, unspecified (2) Paget's bone disease Assessment/Plan: -Hematology consult Problems reviewed: Yes Code(s): M88.9 - OSTEITIS DEFORMANS OF UNSPECIFIED BONE (3) Pneumonia Assessment/Plan: -CXR negative for infiltrates -Pulmonary consult -Bronchodilators -Nasal O2 to keep SpO2>90% -CT chest pending Problems reviewed: Yes Code(s): J18.9 - PNEUMONIA, UNSPECIFIED ORGANISM Qualifiers: Pneumonia type: due to unspecified organism Laterality: left Lung location: lower lobe of lung Qualified Code(s): J18.9 - Pneumonia, unspecified organism (4) BEKA (acute kidney injury) Assessment/Plan: -acute on chronic renal insufficiency -Nephrology consult -Monitor trend Problems reviewed: Yes Code(s): N17.9 - ACUTE KIDNEY FAILURE, UNSPECIFIED (5) Anemia Assessment/Plan: -Chronic -Iron deficiency in the past -already on Feosol BID, would change to iron polysaccharide -May give venofer if BC negative Problems reviewed: Yes Code(s): D64.9 - ANEMIA, UNSPECIFIED Qualifiers: Anemia type: iron deficiency (6) Atrial fibrillation Assessment/Plan: -paroxysmal -chronic -On eliquis 5 mg po bid Problems reviewed: Yes Code(s): I48.91 - UNSPECIFIED ATRIAL FIBRILLATION (7) BPH (benign prostatic hyperplasia) Assessment/Plan: -On tamsulosin -Seen by Dr Omar Friedman in the past Problems reviewed: Yes Code(s): N40.0 - BENIGN PROSTATIC HYPERPLASIA WITHOUT LOWER URINRY TRACT SYMP (8) Diabetes Assessment/Plan: -Last A1c at 6.4 -No indication for oral hypoglycemics -dietary control for now Problems reviewed: Yes Code(s): E11.9 - TYPE 2 DIABETES MELLITUS WITHOUT COMPLICATIONS Qualifiers: Diabetes mellitus type: other specified (including TAN) Diabetes mellitus termite helper insulin use: unspecified termite helper insulin use status Diabetes mellitus complication status: with other specified complication Qualified Code (s): E13.69 - Other specified diabetes mellitus with other specified complication (9) UTI (urinary tract infection) Assessment/Plan: -UA + nitrites -Cultures pending Problems reviewed: Yes Code(s): N39.0 - URINARY TRACT INFECTION, SITE NOT SPECIFIED (10) Polyarthralgia Assessment/Plan: -Rheumatology consult -added Uric acid, ESR, CRP to labs -Start medrol IV Q8H -Acetaminophen 650 mg Q4H PRN for pain 1-3 or fever>100.0 F -Oxycodone 5 mg Q4H PRN for pain 4-6 -Morphine 2 mg q4h PRN for pain 7-10 -Miralax BID + colace 300 mg po HS for bowel regimen Problems reviewed: Yes Code(s): M25.50 - PAIN IN UNSPECIFIED JOINT Assessment/Plan see problem list
--- NOTE | 2019-09-21 11:02 | PN ---
Teaching Attending Note Name of Resident: Elidia Beard ATTENDING PHYSICIAN STATEMENT I saw and evaluated the patient. I reviewed the resident's note and discussed the case with the resident. I agree with the resident's findings and plan as documented. SUBJECTIVE: severe body pain since discharge on 09/17 received 2 weeks of ceftriaxone for proteus UTI and possible pneumonia RLL s/p TURP that admission no cough no urinary symptoms OBJECTIVE: Vital Signs Period Temp Pulse Resp BP Sys/Enamorado Pulse Ox Last 24 Hr 98.4 F-99.9 F 85-112 20-26 102-110/66-91 95-100 cor-rrr lungs decreased at bases abd soft,nt ext multiple joints with warmth and swelling both knees left greater then left, both wrists left greater then right, left ankle worse the right CBC, BMP 09/21/19 07:58 09/21/19 07:58 cultures pending ASSESSMENT AND PLAN: polyarticular arthritis- ?gout (prior history) esr/crp, uric acid suggest rheumatology evaluation empiric steroids given elevated creatinine r/o uti, pneumonia f/u cultures nares swab for MRSA renal/bladder sonogram r/o obstruction urinary antigens chest ct continue zosyn check vancomycin level in am d/w primary doctor
[2019-09-21] MEDS ORDERED: methylPREDNISolone NA SUCC 125 MG/2 ML VIAL ONE (11:17)
[2019-09-21] MEDS ORDERED: MORPHINE SULFATE 2 MG/ML VIAL ONE (11:18)
[2019-09-21] MEDS: methylPREDNISolone NA SUCC 40 MG/1 ML VIAL IVPUSH SCH ×2 (11:26→15:11)
[2019-09-21] MEDS: LIDOCAINE 5% TOPICAL PATCH TP SCH (11:27)
[2019-09-21] MEDS: MORPHINE SULFATE 2 MG/ML VIAL IVPUSH PRN ×2 (11:27→16:33)
[2019-09-21] MEDS: LISINOPRIL 5 MG TABLET (FP) PO SCH (11:29)
[2019-09-21] MEDS: DULoxetine HCL 20 MG CAPSULE.DR PO SCH (11:29)
[2019-09-21] MEDS: amLODIPine BESYLATE 5 MG TABLET (FP) PO SCH (11:30)
[2019-09-21] MEDS: MULTIVITAMINS (DAILY MVI) TABLET (FP) PO SCH (11:30)
[2019-09-21] MEDS: METOPROLOL TARTRATE 25 MG TABLET (FP) PO SCH ×2 (11:30→22:07)
[2019-09-21] MEDS: APIXABAN 5 MG TABLET PO SCH ×2 (11:30→22:07)
[2019-09-21] MEDS: ASPIRIN COATED 81 MG TABLET.EC PO SCH (11:39)
[2019-09-21 12:01] LABS: URIC ACID 7.1 mg/dL (2.6-7.2)
[2019-09-21] MEDS: PIPERACILLIN/TAZOB 3.375 GM 3.375 GM in DEXTROSE 5%-WATER - 50 ML IVPB SCH ×2 (12:14→17:12)
--- NOTE | 2019-09-21 13:08 | PN ---
Progress Note (short form) - Note Progress Note: Renal follow up for BEKA Pt was seen by our service on prior admission for BEKA. Pt was discharged and now presents with diffuse body pain, LE weakness and pain and noted to have Cr of 1.5. Pt was seen outside the radiology suite. Awake and alert, in moderate distress from pain. Most of pain is in left ankle. Denies any sob, cp, abd pain, nausea and vomiting reports urinating w/o difficulty no fever denies any NSAID use. No recent IV contrast exposure. Denies any flank pain or hematuria. Vital Signs Temperature 98.4 F 09/21/19 04:11 Pulse Rate 108 H 09/21/19 04:11 Respiratory Rate 20 09/21/19 04:35 Blood Pressure 110/66 09/21/19 04:11 O2 Sat by Pulse Oximetry (%) 96 09/21/19 04:35 Intake & Output 09/18/19 09/19/19 09/20/19 09/21/19 23:59 23:59 23:59 23:59 Weight 97.522 kg 101.264 kg Mild distress from pain neck supple, no JVD RRR, no M/R CTA (anterior examination) soft, obese, NT/ND no bladder distension + edema in LE + left ankle pain CBC, BMP 09/21/19 07:58 09/21/19 07:58 Current Medications Acetaminophen (Tylenol -) 650 mg PO Q6H PRN PRN Reason: PAIN LEVEL 6-10 Albuterol/Ipratropium (Duoneb -) 1 amp NEB RQID [facility] Last Admin: 09/21/19 12:26 Dose: Not Given Amlodipine Besylate (Norvasc -) 5 mg PO DAILY [facility] Last Admin: 09/21/19 11:30 Dose: 5 mg Apixaban (Eliquis -) 5 mg PO BID [facility] Last Admin: 09/21/19 11:30 Dose: 5 mg Aspirin (Ecotrin -) 81 mg PO DAILY [facility] Last Admin: 09/21/19 11:39 Dose: 81 mg Atorvastatin Calcium (Lipitor -) 40 mg PO HS [facility] Docusate Sodium (Colace -) 300 mg PO HS [facility] Duloxetine HCl (Cymbalta -) 20 mg PO DAILY [facility] Last Admin: 09/21/19 11:29 Dose: 20 mg Gabapentin (Neurontin -) 300 mg PO TID [facility] Last Admin: 09/21/19 07:31 Dose: 300 mg Piperacillin Sod/Tazobactam (Sod 3.375 gm/ Dextrose) 50 mls @ 100 mls/hr IVPB Q8H-IV [facility]; Protocol Lidocaine (Lidoderm Patch -) 1 patch TP DAILY [facility] Last Admin: 09/21/19 11:27 Dose: 1 patch Lisinopril (Prinivil) 2.5 mg PO DAILY [facility] Last Admin: 09/21/19 11:29 Dose: 2.5 mg Methylprednisolone Sodium Succinate (Solu-Medrol -) 40 mg IVPUSH TID [facility] Last Admin: 09/21/19 11:26 Dose: 40 mg Metoprolol Tartrate (Lopressor -) 25 mg PO BID [facility] Last Admin: 09/21/19 11:30 Dose: 25 mg Miscellaneous (Lidoderm Patch Removal) 1 each MC DAILY@2200 [facility] Morphine Sulfate (Morphine Sulfate) 2 mg IVPUSH Q4H PRN PRN Reason: PAIN LEVEL 6-10 Last Admin: 09/21/19 11:27 Dose: 2 mg Multivitamins/Minerals/Vitamin C (Tab-A-Vit -) 1 tab PO DAILY [facility] Last Admin: 09/21/19 11:30 Dose: 1 tab Polysaccharide Iron Complex (Niferex-150 -) 150 mg PO DAILY [facility] Sitagliptin Phosphate (Januvia -) 25 mg PO DAILY@0700 [facility] Last Admin: 09/21/19 07:31 Dose: 25 mg Tamsulosin HCl (Flomax -) 0.4 mg PO DAILY@0830 [facility] Last Admin: 09/21/19 08:29 Dose: 0.4 mg 78 year old gentleman with history of CHF with reduced LVEF, Afib, Anemia and DM with recent admission for gross hematuria and BEKA now presents with diffuse body pain and joint pain with BEKA. 1. Acute kidney injury (differential: obstruvtive uropathy vs. normotensive ATN vs. volume depletion) 2. Joint pains 3. CHF with reduced LVEF 4. Leukocytosis 5. 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
--- NOTE | 2019-09-21 14:04 | PN ---
Progress Note (short form) - Note Progress Note: PULMONARY CONSULTATION DICTATED 09/21/19 IMP DYSPNEA ACUTE ON CHRONIC HYPOXEMIC/HYPERCAPNEIC RESPIRATORY FAILURE COPD CHF LIKELY PNEUMONIA PAGETS DISEASE POLYARTICULAR ARTHRITIS BEKA AFIB DM UTI ANEMIA PLAN ABX PER ID O2 TO MAINTAIN O2 SAT 90% OR GREATER NIPPV NEEDED IVF ANALGESICS MEDROL RHEUMATOLOGY EVALUATION NORMAL TRANSFUSION THRESHOLD CHEST CT MONITOR LYTES,RENAL FUNCTION MONITOR H+H DR CARPENTER Problem List - Problems (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 - OSTEITIS DEFORMANS OF UNSPECIFIED BONE (2) Pneumonia Code(s): J18.9 - PNEUMONIA, UNSPECIFIED ORGANISM Qualifiers: Pneumonia type: due to unspecified organism Laterality: left Lung location: lower lobe of lung Qualified Code(s): J18.9 - Pneumonia, unspecified organism (3) BEKA (acute kidney injury) Code(s): N17.9 - ACUTE KIDNEY FAILURE, UNSPECIFIED (4) Atrial fibrillation Code(s): I48.91 - UNSPECIFIED ATRIAL FIBRILLATION (5) CHF (congestive heart failure) Code(s): I50.9 - HEART FAILURE, UNSPECIFIED Qualifiers: Heart failure type: unspecified Heart failure chronicity: chronic Qualified Code(s): I50.9 - Heart failure, unspecified (6) Diabetes Code(s): E11.9 - TYPE 2 DIABETES MELLITUS WITHOUT COMPLICATIONS Qualifiers: Diabetes mellitus type: other specified (including TAN) Diabetes mellitus director long term care insulin use: unspecified director long term care insulin use status Diabetes mellitus complication status: with other specified complication Qualified Code (s): E13.69 - Other specified diabetes mellitus with other specified complication (7) Extremity pain Code(s): M79.609 - PAIN IN UNSPECIFIED LIMB (8) Shortness of breath Code(s): R06.02 - SHORTNESS OF BREATH (9) Symptomatic anemia Code(s): D64.9 - ANEMIA, UNSPECIFIED (10) Systolic CHF Code(s): I50.20 - UNSPECIFIED SYSTOLIC (CONGESTIVE) HEART FAILURE (11) Acute on chronic respiratory failure with hypoxia and hypercapnia Code(s): J96.21 - ACUTE AND CHRONIC RESPIRATORY FAILURE WITH HYPOXIA; J96.22 - ACUTE AND CHRONIC RESPIRATORY FAILURE WITH HYPERCAPNIA
[2019-09-21] MEDS ORDERED: PIPERACILLIN/TAZOBACTAM 3.375 GM VIAL IVPB ONE ×2 (14:08→17:04)
[2019-09-21] MEDS ORDERED: DEXTROSE 5%-WATER - 50 ML IVPB ONE ×2 (14:08→17:04)
--- NOTE | 2019-09-21 17:23 | CONSULT ---
Consult Consult Specialty:: Rheumatology - History of Present Illness History of Present Illness: 78 y/o man transferred from [facility] with a PMHx of COPD, HTN, HLD, CAD (s/p Stent), DM, CHF (pEF), Gout, Afib (on Eliquis), Anemia, Paget's disease Prostate Ca. admitted with SOB and diffuse joint pain. The patient was previously admitted on 08/31/19 and DC on 09/17/19 for urinary retention and treated for proteus UTI and LLL pneumonia. On the day of discharge he developed severe pain in multiple joints in upper and lower limbs. The pain is present all day and accompanied by stiffness also lasting most of the day. The patient was admitted with joint pain and SOB. He has a 10 year history of gout. On average he has 0 to 2 acute episodes of arthritis per year. History of Paget's disease with involvement of the lumbar sp[ine, sacrum and iliac bone. Bone scan fo 2016 and 09/13/19 were similar and correspond to CT scan changes suggestive of Paget's disease. The patient has history of episode of elevated creatinine and urinalysis with protein 3+ and vlood 3+. On 08/31/19 he had similar changes with creatinine elevation and proteinuria, improved spontaneously. On admission temp 99.9, then normal. Labs: CBC with a WBC of 18.6, Hgb 7.7, HCT 25.3, and platelets 339. AST 44, ALT 41. Uric acid: 7.1. CT chest with atelectasis or infiltration in both bases. The patient was started on Solumedrol 40 mg IV Q 8 hrs (by pulmonary) - History Source History Provided By: Patient, Medical Record - Past Medical History Cardio/Vascular: Yes: AFIB, CAD, CHF (low normal LVEF on 02/25 ECHO), HTN, Hyperlipdemia, Pulmonary Hypertension Pulmonary: Yes: COPD, O2 Dependent, Other (pulmonary htn) Gastrointestinal: Yes: Other (colon polyps). No: Ascites Renal/: Yes: BPH, Other Psych: Yes: Depression (diagnosed 09/2019) Rheumatology: Yes: Gout Endocrine: Yes: Diabetes Mellitus - Past Surgical History Past Surgical History: Yes: Stent - Alcohol/Substance Use Hx Alcohol Use: No History of Substance Use: reports: None - Smoking History Smoking history: Never smoked Have you smoked in the past 12 months: No Aproximately how many cigarettes per day: 0 - Social History Usual Living Arrangement: Halfway ADL: Support Services History of Recent Travel: No Home Medications - Allergies Allergies/Adverse Reactions: Allergies Allergy/AdvReac Type Severity Reaction Status Date / Time No Known Allergies Allergy Verified 09/20/19 22:46 - Home Medications Home Medications: Ambulatory Orders Alendronate Na [Fosamax (Weekly)] 70 mg PO WEEKLY 01/29/17 Atorvastatin Calcium 40 mg PO HS 01/29/17 Aspirin Coated [Ecotrin -] 81 mg PO DAILY tablet.ec 11/05/17 Amlodipine Besylate 5 mg PO DAILY 05/04/18 Acetaminophen [Tylenol .Regular Strength -] 650 mg PO Q6H PRN tablet 03/07/19 Apixaban [Eliquis -] 5 mg PO BID tablet 03/07/19 Insulin Sliding Scale [Novolog Vial Sliding Scale -] 1 vial SQ ACHS units 03/07 Docusate Sodium [Colace] 300 mg PO HS 06/23/19 Gabapentin 300 mg PO TID 06/23/19 Insulin Glargine,Hum.rec.anlog [Basaglar Kwikpen U-100] 20 unit SQ DAILY Polyethylene Glycol 3350 [Miralax 119 gm Btl -] 17 gm PO DAILY 06/23/19 Tamsulosin HCl [Flomax] 0.4 mg PO DAILY 06/23/19 Zinc Oxide 20% Topical Oint 1 appful DAILY PRN 06/23/19 Lidocaine 5% Patch [Lidoderm -] 1 patch TP DAILY patch 07/01/19 Melatonin 3 mg PO HS 08/31/19 Metoprolol Tartrate 25 mg PO BID 08/31/19 Multivitamin [Multiple Vitamins] 1 each PO DAILY 08/31/19 Albuterol 2.5/Ipratropium 0.5 [Duoneb -] 1 amp NEB RQID amp 09/17/19 Duloxetine HCl [Cymbalta -] 20 mg PO DAILY capsule. 09/17/19 Ferrous Sulfate [Feosol] 325 mg PO BID ud 09/17/19 Lisinopril [Prinivil] 2.5 mg PO DAILY tablet 09/17/19 Magnesium Hydrox 2400MG/30Ml [Milk of Magnesia -] 30 ml PO DAILY PRN cup Sennosides [Senna -] 2 tab PO HS PRN tablet 09/17/19 Sitagliptin Phosphate [Januvia -] 25 mg PO DAILY@0700 tab 09/17/19 Mag Hydrox/Al Hydrox/Simeth [Mylanta *Suspension*] 30 ml PO Q6H 09/21/19 Oxycodone HCl 10 mg PO Q8H PRN 09/21/19 Phenazopyridine HCl [Pyridium] 200 mg PO TID 09/21/19 Piperacillin/Tazob 3.375 gm [Zosyn 3.375GM Ivpb (Pre-Docked)] 3.375 gm IVPB Q8H 09/21/19 Potassium Chloride [K-Dur -] 40 meq PO DAILY 09/21/19 Prednisone [Deltasone] 20 mg PO DAILY 09/21/19 Silver Sulfadiazine 1% Top Cr [Silvadene -] 1 applic TP DAILY 09/21/19 Review of Systems - Review of Systems Constitutional: reports: Malaise Eyes: reports: No Symptoms HENT: reports: No Symptoms Neck: reports: No Symptoms Cardiovascular: reports: No Symptoms Respiratory: reports: SOB Musculoskeletal: reports: Other (See HPI) Integumentary: reports: No Symptoms Physical Exam Vital Signs: Vital Signs Temperature 98.7 F 09/21/19 15:00 Pulse Rate 94 H 09/21/19 15:00 Respiratory Rate 20 09/21/19 15:00 Blood Pressure 108/67 09/21/19 15:00 O2 Sat by Pulse Oximetry (%) 96 09/21/19 04:35 Constitutional: Yes: Severe Distress Eyes: Yes: WNL HENT: Yes: WNL Neck: Yes: WNL Cardiovascular: Yes: WNL Respiratory: Yes: WNL Gastrointestinal: Yes: WNL Musculoskeletal: Yes: Other (21 swollen joints (right elbow, both wrists, MCPs: right hanbd 2 and 5, left hand 3 and 5. All PIPs, both knees and both ankles.) Labs: CBC, BMP 09/21/19 07:58 09/21/19 07:58 Laboratory Tests 09/20/19 09/20/19 09/21/19 22:12 22:24 00:28 Est GFR (CKD-EPI)AfAm Uric Acid Calcium 8.9 Total Bilirubin 1.5 H AST 44 H ALT 41 Alkaline Phosphatase 130 H Creatine Kinase 38 B-Natriuretic Peptide 3352.4 H Total Protein 6.3 L Albumin 2.4 L Urine Color Red Urine Appearance Cloudy Urine pH 5.0 D Ur Specific [place] 1.015 Urine Protein 3+ H Urine Glucose (UA) Trace Urine Ketones 1+ H Urine Blood 3+ H Urine Nitrite Positive Urine Bilirubin 3+ H Urine Urobilinogen 4.0 e.u/dl Ur Leukocyte Esterase 3+ H Urine WBC (Auto) 67 Urine RBC (Auto) 2310 Urine Casts (Auto) 9 09/21/19 07:58 Est GFR (CKD-EPI)AfAm 51.31 Uric Acid 7.1 Calcium Total Bilirubin AST ALT Alkaline Phosphatase Creatine Kinase B-Natriuretic Peptide Total Protein Albumin Urine Color Urine Appearance Urine pH Ur Specific [place] Urine Protein Urine Glucose (UA) Urine Ketones Urine Blood Urine Nitrite Urine Bilirubin Urine Urobilinogen Ur Leukocyte Esterase Urine WBC (Auto) Urine RBC (Auto) Urine Casts (Auto) Problem List - Problems (1) Undifferentiated inflammatory arthritis Assessment/Plan: Systemic inflammatory arthritis, acute, etiology to be determined. It is unlikley that he has gout or septic arthritis, I will obtain tomorrow further history and laboratory. PROCEDURE: Under aseptic conditions I aspirated the left knee, obtained 57 mlof brownish opaque fluis and injected 40 mg Depomedrol and 2ml Lidocane 1%. Plan: Synovial fluidfor cell count, crystal analysis and culture. Continue Solumedrol 40 mg IV Q hrs (as per pulmonary). I will obtain further history. Code(s): M06.4 - INFLAMMATORY POLYARTHROPATHY
--- NOTE | 2019-09-21 17:50 | CONS ---
DATE OF CONSULTATION: 09/21/2019 PULMONARY CONSULTATION REFERRING PHYSICIAN: Jaz Mendieta M.D. HISTORY OF PRESENT ILLNESS: The patient is a 78-year-old male with extensive past medical history of ASHD, atrial fibrillation, congestive heart failure with low normal left ventricular ejection fraction, hypertension, hyperlipidemia, COPD oxygen dependent, pulmonary hypertension, anemia, history of prostate CA, depression, diabetes, recently hospitalized to [facility] on August 31 to September 17 secondary to proteus urinary tract infection, hematuria, urinary retention. At the time patient was treated with ceftriaxone. Also patient underwent cysto and a TURP. He was also noted to have a left lower lobe pneumonia, was started on Zosyn in the skilled nursing after discharge. Patient was sent back to [facility] secondary to increasing shortness of breath and generalized arthralgias. The patient denies any fevers or chills, has a cough which is nonproductive. Denies any chest pains or palpitations. On admission, the patient was evaluated by ID and treated with broad-spectrum antibiotics for possible pneumonia. Chest x-ray initially on admission did not show any pneumonia. Chest CT is pending. PAST MEDICAL HISTORY: Again includes history of BPH, prostate CA, pneumonia, pulmonary hypertension, CHF with low normal ejection fraction, hypertension, ASHD status post stents, hyperlipidemia, diabetes, chronic anemia, gout, as well as possible Paget disease, and atrial fibrillation and colonic polyps, depression and diabetes. REVIEW OF SYSTEMS: Positive shortness of breath. Positive generalized arthralgias. No fever. No chills. Positive mild cough. No sputum. No abdominal pain. CURRENT MEDICATIONS: Include Lidoderm, Solu-Medrol, Flomax, Tylenol, Prinivil, piperacillin, Eliquis, Neurontin, Cymbalta, Lidoderm, DuoNeb, Lopressor, Colace, Norvasc, Januvia, Niferex, Tab-A-Nabil, Ecotrin, and morphine sulfate. 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 Denies smoking. PHYSICAL EXAMINATION: General: The patient is an elderly male, awake alert, in discomfort secondary to pain and mildly dyspneic and tachypneic. Vital Signs: Blood pressure is 110/66, respiratory rate 20, O2 saturation is 96 % on 3 L. HEENT: Normocephalic, atraumatic. Neck: Supple. Heart: Irregularly irregular, S1, S2. Chest: A few basilar crackles. Abdomen: Soft, bowel sounds positive. Extremities: No cyanosis, edema. LABORATORY: WBC is 15.9, hemoglobin 7.4, hematocrit 23.8, platelet count of 300 ,000. Venous blood gas: 7.33, pCO2 of 57, pO2 of 64, bicarbonate of 29, INR is 3.09. Chemistry: BUN 44, creatinine 1.5, BNP 3352. Chest x-ray: cardiomegaly, elevated left hemidiaphragm, no acute infiltrates or effusions. IMPRESSION: 1. Dyspnea. Acute on chronic hypercapnic, hypoxemic respiratory failure. 2. Chronic obstructive pulmonary disease, oxygen dependent. 3. Likely pneumonia. 4. Chest congestive heart failure. 5. Paget's. 6. Polyarticular arthritis. 7. Acute kidney injury. 8. Atrial fibrillation. 9. Diabetes. PLAN: Antibiotics as per infectious disease. Supplemental O2 to maintain O2 saturation 90% or greater. NIPPV as needed. IV fluids. Analgesics. Rheumatology evaluation. CT scan of chest. RAFAL CARPENTER M.D. [id number] MTDD
--- NOTE | 2019-09-21 18:15 | PN ---
Progress Note (short form) - Note Progress Note: CONSULT dictated Impression:: Recently hospitilized for hematuria. Had pneumonitis treated with antibiotic therapy . Returns with poly articuar arthritis Underwent left knee aspiration with turbid fluid removed. Multiple co- morbid problems ASHD, CHF, AF on eliquis, HBP, HPL, DM, COPD, history of prostate ca. Recent bone scan- little change from 01/2017 with uptake in lumbosacral spine and pelvis. Enlarged bones -. Picture felt to be consistent with Paget"s disease. Has anemia and BEKA. To check Fe++ studies. Rheumtology/ID management for pneumonia, UTI, and polyarticular arthritis.
--- NOTE | 2019-09-21 19:53 | CONS ---
DATE OF CONSULTATION: 09/21/2019 HISTORY OF PRESENT ILLNESS: This patient was recently discharged from [facility] after he presented with hematuria. He presents now with leukocytosis as well as a polyarthritis. History past history is that of ASHD, atrial fibrillation on Eliquis, CHF, hypertension, hyperlipidemia, COPD, pulmonary hypertension, history of prostate CA. During past hospitalization, the patient underwent bone scan which was essentially unchanged from that of January 2017. He has long bones, suspicion of Paget disease involving the lower lumbar sacral spine as well as the pelvis was raised. REVIEW OF SYSTEMS: Current review of systems includes shortness of breath as well as significant arthritis. CURRENT MEDICATIONS: Include prednisone just initiated, Flomax, Tylenol, Prinivil, Zosyn, Eliquis, Neurontin, Cymbalta, Lidoderm patch, DuoNeb, Lopressor, Norvasc, Januvia, Lipitor, intravenous . CURRENT PHYSICAL EXAMINATION: Vital Signs: Blood pressure 108/67, pulse 94, respirations 20, temperature 98.7. HEENT: JAE, EOM intact. Gynecomastia. Chest: Diminished breath sounds. Cardiology: Irregular rhythm. Abdomen: Soft. Extremities: Polyarticular arthritis with knee aspiration from the left. LABORATORY: WBC 15.9, hematocrit 23.8, platelets 300,000, 92 polycytes. 137 sodium, potassium 4.3, chloride 102, creatinine 1.5, calcium 8.9, bilirubin 1.5, AST 44, ALT 41, alkaline phosphatase 130. BNP 3300. CRP 41. Albumin 2.4, protein 6.3. Chest CT bilateral infiltrates left and right. Urinalysis with 3+ proteinuria, 3+ blood, 3+ leukocyte esterase, 67 polycytes and 2300 red cells. IMPRESSION: This patient with multiple comorbid medical problems recently hospitalized with hematuria, currently enters with fever. He has a polyarticular arthritis involving multiple joints knees, wrists, hands, and ankles. His chest CT revealed bilateral infiltrates left and right. He just recently finished a course of antibiotics, however, while at [facility]. There is an additional history of ASHD, CHF, COPD on oxygen, diabetes, hyperlipidemia, history of prostate CA. Recent bone scan done revealed little change from that in January 2017 with enlarged bone suggestive of Paget disease with increased uptake in the lumbar spine as well as the pelvis. Current management will be directed toward the pneumonia with intravenous antibiotic therapy, as well as his polyarthritis being managed by rheumatology. He will receive systemic steroids. He has had a knee aspiration with injection of steroids as well as Lidoderm in the left knee. LACIE GIBSON M.D. [id number]
[2019-09-21] MEDS: methylPREDNISolone NA SUCC 40 MG/1 ML VIAL IVPB SCH (20:31)
[2019-09-21 21:02] LABS: SYNOVIAL FLUID RBC 23099 /mm3; SYNOVIAL FLUID SOURCE SINOVIAL
[2019-09-21 21:03] LABS: CRYSTALS,SYNOVIAL FLUID POSITIVE
[2019-09-21] MEDS ORDERED: LIDOCAINE PATCH REMOVAL MC SCH (22:00)
[2019-09-21] MEDS ORDERED: ATORVASTATIN CA 40 MG TABLET (FP) PO SCH (22:00)
[2019-09-21] MEDS ORDERED: DOCUSATE SODIUM 100 MG CAPSULE (FP) PO SCH (22:00)
[2019-09-21 22:03] LABS: SYNOVIAL FLUID LYMPHOCYTES 5 %; SYNOVIAL FLUID MACROPHAGES 3 %; SYNOVIAL FLUID MONOCYTES 8 %; SYNOVIAL FLUID NEUTROPHILS 84 %
[2019-09-21] MEDS ORDERED: MORPHINE SULFATE 2 MG/ML VIAL IVPUSH PRN (22:05)
[2019-09-21] MEDS ORDERED: morphine SULFATE 4 MG/ML VIAL IVPUSH PRN (22:14)
--- NOTE | 2019-09-21 22:39 | CONSULT ---
Consultation: REQUESTING PROVIDER: HEME/ONC Service CONSULT REQUEST: We have been asked to medically evaluate this patient for possible Paget's. HISTORY OF PRESENT ILLNESS: 78 y/o man from [facility] with a PMHx of COPD (3L), HTN, HLD, CAD (s/p Stent), DM , CHF (pEF), Afib (on Eliquis), Anemia, Prostate Ca. Recent admission 08/31-09/17 for Hematuria, Urinary Retention, treated for LLL Pneumonia. Heme/Onc was consulted for possible Paget's disease, which was being worked up during patient 's recent admission. On my interview, pt states that since Thursday (day of discharge), he has been experiencing constant worsening pain of his joints, primarily the left knee. Joints feel hot and are painful with any movement to the degree that he has trouble getting out of bed. He states he cannot bear anyone to touch the affected joints. REVIEW OF SYSTEMS: CONSTITUTIONAL: Absent: fever, chills, diaphoresis, generalized weakness, malaise, loss of appetite, weight change HEENT: Absent: rhinorrhea, nasal congestion, throat pain, throat swelling, difficulty swallowing, mouth swelling, ear pain, eye pain, visual changes CARDIOVASCULAR: Absent: chest pain, syncope, palpitations, irregular heart rate, lightheadedness , peripheral edema RESPIRATORY: Absent: cough, shortness of breath, dyspnea with exertion, orthopnea, wheezing, stridor, hemoptysis GASTROINTESTINAL: Absent: abdominal pain, abdominal distension, nausea, vomiting, diarrhea, constipation, melena, hematochezia GENITOURINARY: Absent: dysuria, frequency, urgency, hesitancy, hematuria, flank pain, genital pain MUSCULOSKELETAL: arthralgia,joint swelling Absent: myalgia, , back pain, neck pain SKIN: Absent: rash, itching, pallor HEMATOLOGIC/IMMUNOLOGIC: Absent: easy bleeding, easy bruising, lymphadenopathy, frequent infections ENDOCRINE: Absent: unexplained weight gain, unexplained weight loss, heat intolerance, cold intolerance NEUROLOGIC: Absent: headache, focal weakness or paresthesias, dizziness, unsteady gait, seizure, mental status changes, bladder or bowel incontinence PSYCHIATRIC: Absent: anxiety, depression, suicidal or homicidal ideation, hallucinations. PHYSICAL EXAMINATION Vital Signs - 24 hr 09/21/19 09/21/19 09/21/19 01:20 04:11 04:15 Temperature 99.9 F H 98.4 F Pulse Rate 112 H 108 H Respiratory 24 H 20 Rate Blood Pressure 110/66 O2 Sat by Pulse 100 95 Oximetry (%) 09/21/19 09/21/19 09/21/19 04:35 09:00 15:00 Temperature 98.7 F Pulse Rate 94 H Respiratory 20 20 20 Rate Blood Pressure 108/67 O2 Sat by Pulse 96 100 Oximetry (%) 09/21/19 09/21/19 17:54 18:00 Temperature 99.1 F Pulse Rate 97 H Respiratory 20 Rate Blood Pressure 115/61 O2 Sat by Pulse 100 Oximetry (%) Gen: mild distress from pain, AAOx3 HEENT: NCAT, EOMI, poor dentition Neck: no jvd, no thyromegally noted Cardio: rrr, normal s1s2, no mrg noted Pulm: cta b/l Abd: soft, nontender, nondistended Ext: diffuse painful swelling of joints. B/l hands, jada first MCP, and wrists. B /l knees L>R and ankles. LLE ROM limited by pain. Laboratory Results - last 24 hr 09/20/19 09/20/19 09/20/19 22:12 22:24 22:24 WBC RBC Hgb Hct MCV MCH MCHC RDW Plt Count MPV Absolute Neuts (auto) Neutrophils % Neutrophils % (Manual) Band Neutrophils % Lymphocytes % Lymphocytes % (Manual) Monocytes % Monocytes % (Manual) Eosinophils % Eosinophils % (Manual) Basophils % Basophils % (Manual) Myelocytes % (Man) Promyelocytes % (Man) Blast Cells % (Manual) Nucleated RBC % Metamyelocytes Hypochromia Platelet Estimate Platelet Comment Polychromasia Poikilocytosis Basophilic Stippling Anisocytosis Microcytosis Macrocytosis Fragmented RBCs Schistocytes ESR PT with INR INR VBG pH 7.33 POC VBG pCO2 57.6 H POC VBG pO2 64.5 H VBG HCO3 29.5 H VBG O2 Sat (Amy) 88.0 H VBG Base Excess 3.8 H Sodium 138 Potassium 4.7 Chloride 101 Carbon Dioxide 30 Anion Gap 7 L BUN 37.5 H Creatinine 1.5 H Est GFR (CKD-EPI)AfAm 51.31 Est GFR (CKD-EPI)NonAf 44.27 Random Glucose 185 H Lactic Acid Uric Acid Calcium 8.9 Total Bilirubin 1.5 H AST 44 H ALT 41 Alkaline Phosphatase 130 H Creatine Kinase 38 Troponin I 0.03 C-Reactive Protein B-Natriuretic Peptide 3352.4 H Total Protein 6.3 L Albumin 2.4 L Urine Color Urine Appearance Urine pH Ur Specific [place] Urine Protein Urine Glucose (UA) Urine Ketones Urine Blood Urine Nitrite Urine Bilirubin Urine Urobilinogen Ur Leukocyte Esterase Urine WBC (Auto) Urine RBC (Auto) Urine Casts (Auto) U Epithel Cells (Auto) Urine Bacteria (Auto) Synovial Source Synovial WBC Synovial RBC Synovial Neutrophils Synovial Lymphocytes Synovial Monocytes Synovial Histocytes Synovial Plasma Cells Synovial LE Cells Synovial Macrophages Synovial Other Cells Synovial Diff Comment Synovial Crystals Blood Type Antibody Screen 09/20/19 09/20/19 09/20/19 22:24 22:24 22:24 WBC 18.6 H RBC 2.55 L Hgb 7.7 L Hct 25.3 L MCV 99.2 H MCH 30.3 MCHC 30.6 L RDW 19.3 H Plt Count 339 MPV 8.2 D Absolute Neuts (auto) 17.2 H Neutrophils % 92.7 H Neutrophils % (Manual) 93.3 H Band Neutrophils % 0.0 Lymphocytes % 2.4 L D Lymphocytes % (Manual) 2.9 L D Monocytes % 4.5 Monocytes % (Manual) 4 Eosinophils % 0.0 D Eosinophils % (Manual) 0.0 D Basophils % 0.4 Basophils % (Manual) 0.0 Myelocytes % (Man) 0 D Promyelocytes % (Man) 0 Blast Cells % (Manual) 0 Nucleated RBC % 0 Metamyelocytes 0 Hypochromia 1+ Platelet Estimate Normal Platelet Comment No clumping noted Polychromasia 1+ Poikilocytosis 0 Basophilic Stippling Anisocytosis 1+ Microcytosis 0 Macrocytosis 1+ Fragmented RBCs Schistocytes ESR PT with INR INR VBG pH POC VBG pCO2 POC VBG pO2 VBG HCO3 VBG O2 Sat (Amy) VBG Base Excess Sodium Potassium Chloride Carbon Dioxide Anion Gap BUN Creatinine Est GFR (CKD-EPI)AfAm Est GFR (CKD-EPI)NonAf Random Glucose Lactic Acid Uric Acid Calcium Total Bilirubin AST ALT Alkaline Phosphatase Creatine Kinase Troponin I C-Reactive Protein B-Natriuretic Peptide Cancelled Total Protein Albumin Urine Color Urine Appearance Urine pH Ur Specific [place] Urine Protein Urine Glucose (UA) Urine Ketones Urine Blood Urine Nitrite Urine Bilirubin Urine Urobilinogen Ur Leukocyte Esterase Urine WBC (Auto) Urine RBC (Auto) Urine Casts (Auto) U Epithel Cells (Auto) Urine Bacteria (Auto) Synovial Source Synovial WBC Synovial RBC Synovial Neutrophils Synovial Lymphocytes Synovial Monocytes Synovial Histocytes Synovial Plasma Cells Synovial LE Cells Synovial Macrophages Synovial Other Cells Synovial Diff Comment Synovial Crystals Blood Type O POSITIVE Antibody Screen Negative 09/20/19 09/21/19 09/21/19 22:24 00:28 01:40 WBC RBC Hgb Hct MCV MCH MCHC RDW Plt Count MPV Absolute Neuts (auto) Neutrophils % Neutrophils % (Manual) Band Neutrophils % Lymphocytes % Lymphocytes % (Manual) Monocytes % Monocytes % (Manual) Eosinophils % Eosinophils % (Manual) Basophils % Basophils % (Manual) Myelocytes % (Man) Promyelocytes % (Man) Blast Cells % (Manual) Nucleated RBC % Metamyelocytes Hypochromia Platelet Estimate Platelet Comment Polychromasia Poikilocytosis Basophilic Stippling Anisocytosis Microcytosis Macrocytosis Fragmented RBCs Schistocytes ESR PT with INR 36.90 H INR 3.09 H VBG pH POC VBG pCO2 POC VBG pO2 VBG HCO3 VBG O2 Sat (Amy) VBG Base Excess Sodium Potassium Chloride Carbon Dioxide Anion Gap BUN Creatinine Est GFR (CKD-EPI)AfAm Est GFR (CKD-EPI)NonAf Random Glucose Lactic Acid 1.4 Uric Acid Calcium Total Bilirubin AST ALT Alkaline Phosphatase Creatine Kinase Troponin I C-Reactive Protein B-Natriuretic Peptide Total Protein Albumin Urine Color Red Urine Appearance Cloudy Urine pH 5.0 D Ur Specific [place] 1.015 Urine Protein 3+ H Urine Glucose (UA) Trace Urine Ketones 1+ H Urine Blood 3+ H Urine Nitrite Positive Urine Bilirubin 3+ H Urine Urobilinogen 4.0 e.u/dl Ur Leukocyte Esterase 3+ H Urine WBC (Auto) 67 Urine RBC (Auto) 2310 Urine Casts (Auto) 9 U Epithel Cells (Auto) Few Urine Bacteria (Auto) 360 Synovial Source Synovial WBC Synovial RBC Synovial Neutrophils Synovial Lymphocytes Synovial Monocytes Synovial Histocytes Synovial Plasma Cells Synovial LE Cells Synovial Macrophages Synovial Other Cells Synovial Diff Comment Synovial Crystals Blood Type Antibody Screen 09/21/19 09/21/19 09/21/19 07:55 07:58 07:58 WBC 15.9 H RBC 2.41 L Hgb 7.4 L Hct 23.8 L MCV 98.4 H MCH 30.5 MCHC 31.0 L RDW 19.4 H Plt Count 300 MPV 7.7 Absolute Neuts (auto) 14.8 H Neutrophils % 92.6 H Neutrophils % (Manual) 92.0 H Band Neutrophils % 0.0 Lymphocytes % 3.0 L D Lymphocytes % (Manual) 1.0 L D Monocytes % 4.2 Monocytes % (Manual) 4 Eosinophils % 0.1 D Eosinophils % (Manual) 1.0 D Basophils % 0.1 Basophils % (Manual) 0.0 Myelocytes % (Man) 1 D Promyelocytes % (Man) 0 Blast Cells % (Manual) 0 Nucleated RBC % 0 Metamyelocytes 0 Hypochromia 0 Platelet Estimate Normal Platelet Comment Polychromasia 1+ Poikilocytosis 1+ Basophilic Stippling 2+ Anisocytosis 2+ Microcytosis 2+ Macrocytosis 0 Fragmented RBCs 1+ Schistocytes 1+ ESR > 140 H PT with INR INR VBG pH POC VBG pCO2 POC VBG pO2 VBG HCO3 VBG O2 Sat (Amy) VBG Base Excess Sodium 137 Potassium 4.3 Chloride 102 Carbon Dioxide 30 Anion Gap 5 L BUN 44.5 H Creatinine 1.5 H Est GFR (CKD-EPI)AfAm 51.31 Est GFR (CKD-EPI)NonAf 44.27 Random Glucose 203 H Lactic Acid Uric Acid 7.1 Calcium 8.6 Total Bilirubin AST ALT Alkaline Phosphatase Creatine Kinase Troponin I C-Reactive Protein 41.6 H B-Natriuretic Peptide Total Protein Albumin Urine Color Urine Appearance Urine pH Ur Specific [place] Urine Protein Urine Glucose (UA) Urine Ketones Urine Blood Urine Nitrite Urine Bilirubin Urine Urobilinogen Ur Leukocyte Esterase Urine WBC (Auto) Urine RBC (Auto) Urine Casts (Auto) U Epithel Cells (Auto) Urine Bacteria (Auto) Synovial Source Synovial WBC Synovial RBC Synovial Neutrophils Synovial Lymphocytes Synovial Monocytes Synovial Histocytes Synovial Plasma Cells Synovial LE Cells Synovial Macrophages Synovial Other Cells Synovial Diff Comment Synovial Crystals Blood Type Antibody Screen 09/21/19 18:00 WBC RBC Hgb Hct MCV MCH MCHC RDW Plt Count MPV Absolute Neuts (auto) Neutrophils % Neutrophils % (Manual) Band Neutrophils % Lymphocytes % Lymphocytes % (Manual) Monocytes % Monocytes % (Manual) Eosinophils % Eosinophils % (Manual) Basophils % Basophils % (Manual) Myelocytes % (Man) Promyelocytes % (Man) Blast Cells % (Manual) Nucleated RBC % Metamyelocytes Hypochromia Platelet Estimate Platelet Comment Polychromasia Poikilocytosis Basophilic Stippling Anisocytosis Microcytosis Macrocytosis Fragmented RBCs Schistocytes ESR PT with INR INR VBG pH POC VBG pCO2 POC VBG pO2 VBG HCO3 VBG O2 Sat (Amy) VBG Base Excess Sodium Potassium Chloride Carbon Dioxide Anion Gap BUN Creatinine Est GFR (CKD-EPI)AfAm Est GFR (CKD-EPI)NonAf Random Glucose Lactic Acid Uric Acid Calcium Total Bilirubin AST ALT Alkaline Phosphatase Creatine Kinase Troponin I C-Reactive Protein B-Natriuretic Peptide Total Protein Albumin Urine Color Urine Appearance Urine pH Ur Specific [place] Urine Protein Urine Glucose (UA) Urine Ketones Urine Blood Urine Nitrite Urine Bilirubin Urine Urobilinogen Ur Leukocyte Esterase Urine WBC (Auto) Urine RBC (Auto) Urine Casts (Auto) U Epithel Cells (Auto) Urine Bacteria (Auto) Synovial Source Sinovial Synovial WBC 61.228 Synovial RBC 73400 Synovial Neutrophils 84 Synovial Lymphocytes 5 Synovial Monocytes 8 Synovial Histocytes No Result Required. Synovial Plasma Cells No Result Required. Synovial LE Cells No Result Required. Synovial Macrophages 3 Synovial Other Cells No Result Required. Synovial Diff Comment No Result Required. Synovial Crystals Positive Blood Type Antibody Screen Active Medications Generic Name Dose Route Start Last Admin Trade Name Freq PRN Reason Stop Dose Admin Acetaminophen 650 mg 09/21/19 22:06 Tylenol - PO Q6H PRN FEVER OR PAIN LEVEL 1 - 3 Albuterol/Ipratropium 1 amp 09/21/19 08:00 09/21/19 21:42 Duoneb - NEB 1 amp RQID COLIN Administration Amlodipine Besylate 5 mg 09/21/19 10:00 09/21/19 11:30 Norvasc - PO 5 mg DAILY COLIN Administration Apixaban 5 mg 09/21/19 10:00 09/21/19 22:07 Eliquis - PO 5 mg BID COLIN Administration Aspirin 81 mg 09/21/19 10:00 09/21/19 11:39 Ecotrin - PO 81 mg DAILY COLIN Administration Atorvastatin Calcium 40 mg 09/21/19 22:00 09/21/19 22:07 Lipitor - PO 40 mg HS COLIN Administration Docusate Sodium 300 mg 09/21/19 22:00 09/21/19 22:07 Colace - PO 300 mg HS COLIN Administration Duloxetine HCl 20 mg 09/21/19 10:00 09/21/19 11:29 Cymbalta - PO 20 mg DAILY COLIN Administration Gabapentin 300 mg 09/21/19 07:00 09/21/19 22:07 Neurontin - PO 300 mg TID COLIN Administration Piperacillin Sod/Tazobactam 50 mls @ 100 mls/hr 09/21/19 11:15 09/21/19 17:12 Sod 3.375 gm/ Dextrose IVPB 100 mls/hr Q8H-IV COLIN Administration Protocol Lidocaine 1 patch 09/21/19 10:00 09/21/19 11:27 Lidoderm Patch - TP 1 patch DAILY [facility]IN Administration Lisinopril 2.5 mg 09/21/19 10:00 09/21/19 11:29 Prinivil PO 2.5 mg DAILY [facility]IN Administration Methylprednisolone Sodium Succinate 40 mg 09/21/19 19:00 09/21/19 20:31 Solu-Medrol - IVPB 40 mg Q8H-IV COLIN Administration Metoprolol Tartrate 25 mg 09/21/19 10:00 09/21/19 22:07 Lopressor - PO 25 mg BID COLIN Administration Miscellaneous 1 each 09/21/19 22:00 09/21/19 22:08 Lidoderm Patch Removal MC 1 each DAILY@2200 [facility]IN Administration Morphine Sulfate 4 mg 09/21/19 22:14 Morphine Sulfate IVPUSH Q4H PRN PAIN LEVEL 7 - 10 Multivitamins/Minerals/Vitamin C 1 tab 09/21/19 10:00 09/21/19 11:30 Tab-A-Vit - PO 1 tab DAILY [facility]IN Administration Oxycodone HCl 5 mg 09/21/19 22:04 Roxicodone - PO Q4H PRN PAIN LEVEL 4 - 6 Polyethylene Glycol 17 gm 09/22/19 10:00 Miralax (For Daily Use) - PO BID [facility] Polysaccharide Iron Complex 150 mg 09/22/19 10:00 Niferex-150 - PO DAILY [facility] Sitagliptin Phosphate 25 mg 09/21/19 07:00 09/21/19 07:31 Januvia - PO 25 mg DAILY@0700 [facility]IN Administration Tamsulosin HCl 0.4 mg 09/21/19 08:30 09/21/19 08:29 Flomax - PO 0.4 mg DAILY@0830 [facility]IN Administration ASSESSMENT/PLAN: 78 y/o man from [facility] with a PMHx of COPD (3L), HTN, HLD, CAD (s/p Stent), DM , CHF (pEF), Afib (on Eliquis), Anemia, Prostate Ca. Recent admission 08/31-09/17 for Hematuria, Urinary Retention, treated for LLL Pneumonia. Heme/Onc was consulted for possible Paget's disease Paget's -prior bone scan revealed increased uptake jada in L knee without much change from scan in 2017 -L knee aspiration and lido/steroid injection -f/u fluid studies -will discuss with IR if bone bx should be pursued Anemia -Fe studies from 09/02/2019 reflect deficiency with possible component of chronic disease -home meds include fe Dispo: We will continue to follow the patient. Thank you for this consultative opportunity. Visit type - Emergency Visit Emergency Visit: No - New Patient This patient is new to me today: No - Critical Care Critical Care patient: No ATTENDING PHYSICIAN STATEMENT I saw and evaluated the patient. I reviewed the resident's note and discussed the case with the resident. I agree with the resident's findings and plan as documented. SUBJECTIVE: OBJECTIVE: ASSESSMENT AND PLAN:
[2019-09-22] MEDS ORDERED: PIPERACILLIN/TAZOBACTAM 3.375 GM VIAL IVPB ONE ×3 (00:56→17:19)
[2019-09-22] MEDS ORDERED: DEXTROSE 5%-WATER - 50 ML IVPB ONE ×3 (00:57→17:20)
[2019-09-22] MEDS ORDERED: CEFEPIME HCL/D5W 2 GM/50 ML BAG IVPB SCH (01:00)
[2019-09-22] MEDS ORDERED: VANCOMYCIN 1,250 MG in DEXTROSE 5%-WATER - 250 ML IVPB SCH (01:00)
[2019-09-22] MEDS: methylPREDNISolone NA SUCC 40 MG/1 ML VIAL IVPB SCH ×3 (02:14→17:33)
[2019-09-22] MEDS: PIPERACILLIN/TAZOB 3.375 GM 3.375 GM in DEXTROSE 5%-WATER - 50 ML IVPB SCH ×3 (02:14→17:33)
[2019-09-22] MEDS: oxyCODONE HCL 5 MG TABLET PO PRN ×2 (06:23→13:25)
[2019-09-22] MEDS: GABAPENTIN 300 MG CAPSULE (FP) PO SCH ×3 (06:23→21:43)
[2019-09-22] MEDS: ALBUTEROL SO4 2.5/IPRATROPIUM 0.5 INH SOL 3 ML VIAL.NEB. NEB SCH ×2 (08:00→11:58)
[2019-09-22 08:38] LABS: BASO % 0.1 % (0-2.0); HEMATOCRIT 23.6 % (35.4-49); HEMOGLOBIN 7.2 GM/dL (11.7-16.9); MCH 30.2 pg (25.7-33.7); MCHC 30.6 g/dl (32.0-35.9); MEAN PLT VOLUME 8.1 fl (7.5-11.1); MONO % 2.6 % (3.8-10.2); NEUT % 95.3 % (42.8-82.8); PLATELET COUNT 303 K/MM3 (134-434); RBC 2.39 M/mm3 (4.00-5.60); RDW 19.4 % (11.9-15.9); WHITE BLOOD COUNT 13.3 K/mm3 (4.0-10.0)
[2019-09-22 09:13] LABS: ALBUMIN 2.1 g/dl (3.4-5.0); BILIRUBIN,TOTAL 1.6 mg/dL (0.2-1); BLOOD UREA NITROGEN 56.4 mg/dL (7-18); CALCIUM 9.1 mg/dL (8.5-10.1); CREATININE 1.4 mg/dL (0.55-1.3); PHOSPHOROUS 3.8 mg/dL (2.5-4.9); POTASSIUM 4.4 mmol/L (3.5-5.1)
[2019-09-22 09:16] LABS: IRON SERUM 49 ug/dL (50-175); TOTAL IRON BINDING CAPACITY 101 ug/dL (250-450)
[2019-09-22] MEDS ORDERED: SODIUM CHLORIDE 500 ML IV STA (09:46)
[2019-09-22] MEDS ORDERED: IRON POLYSACCHARIDES 150 MG CAPSULE PO SCH (10:00)
[2019-09-22] MEDS ORDERED: POLYETHYLENE GLYCOL 3350 119 GM BTL PO SCH (10:00)
[2019-09-22] MEDS ORDERED: predniSONE 20 MG TABLET (UD) PO SCH (10:00)
--- NOTE | 2019-09-22 10:01 | PN ---
Progress Note, Physician Chief Complaint: Pneumonia Afib History of Present Illness: Previous notes and events reviewed called by RN for patient being tachycardic, at bedside on examination patient noted with HR 130s, denies chest pain or dizziness but sts having minor pain with respiration~EKG, Trop, D-dimer STAT - Current Medication List Current Medications: Active Medications Acetaminophen (Tylenol -) 650 mg PO Q6H PRN PRN Reason: FEVER OR PAIN LEVEL 1 - 3 Albuterol/Ipratropium (Duoneb -) 1 amp NEB RQID [facility] Last Admin: 09/22/19 08:00 Dose: 1 amp Amlodipine Besylate (Norvasc -) 5 mg PO DAILY [facility] Last Admin: 09/21/19 11:30 Dose: 5 mg Apixaban (Eliquis -) 5 mg PO BID [facility] Last Admin: 09/21/19 22:07 Dose: 5 mg Aspirin (Ecotrin -) 81 mg PO DAILY [facility] Last Admin: 09/21/19 11:39 Dose: 81 mg Atorvastatin Calcium (Lipitor -) 40 mg PO HS [facility] Last Admin: 09/21/19 22:07 Dose: 40 mg Docusate Sodium (Colace -) 300 mg PO HS [facility] Last Admin: 09/21/19 22:07 Dose: 300 mg Duloxetine HCl (Cymbalta -) 20 mg PO DAILY [facility] Last Admin: 09/21/19 11:29 Dose: 20 mg Gabapentin (Neurontin -) 300 mg PO TID [facility] Last Admin: 09/22/19 06:23 Dose: 300 mg Piperacillin Sod/Tazobactam (Sod 3.375 gm/ Dextrose) 50 mls @ 100 mls/hr IVPB Q8H-IV COLIN; Protocol Last Admin: 09/22/19 02:14 Dose: 100 mls/hr Sodium Chloride (Normal Saline -) 500 mls @ 500 mls/hr IV ASDIR STA Stop: 09/22/19 10:45 Lidocaine (Lidoderm Patch -) 1 patch TP DAILY [facility] Last Admin: 09/21/19 11:27 Dose: 1 patch Lisinopril (Prinivil) 2.5 mg PO DAILY [facility] Last Admin: 09/21/19 11:29 Dose: 2.5 mg Methylprednisolone Sodium Succinate (Solu-Medrol -) 40 mg IVPB Q8H-IV [facility] Last Admin: 09/22/19 02:14 Dose: 40 mg Metoprolol Tartrate (Lopressor -) 25 mg PO BID [facility] Last Admin: 09/21/19 22:07 Dose: 25 mg Miscellaneous (Lidoderm Patch Removal) 1 each MC DAILY@2200 [facility] Last Admin: 09/21/19 22:08 Dose: 1 each Morphine Sulfate (Morphine Sulfate) 4 mg IVPUSH Q4H PRN PRN Reason: PAIN LEVEL 7 - 10 Multivitamins/Minerals/Vitamin C (Tab-A-Vit -) 1 tab PO DAILY [facility] Last Admin: 09/21/19 11:30 Dose: 1 tab Oxycodone HCl (Roxicodone -) 5 mg PO Q4H PRN PRN Reason: PAIN LEVEL 4 - 6 Last Admin: 09/22/19 06:23 Dose: 5 mg Polyethylene Glycol (Miralax (For Daily Use) -) 17 gm PO BID [facility] Polysaccharide Iron Complex (Niferex-150 -) 150 mg PO DAILY [facility] Sitagliptin Phosphate (Januvia -) 25 mg PO DAILY@0700 [facility] Last Admin: 09/22/19 06:23 Dose: 25 mg Tamsulosin HCl (Flomax -) 0.4 mg PO DAILY@0830 [facility] Last Admin: 09/21/19 08:29 Dose: 0.4 mg - Objective Vital Signs: Vital Signs Temperature 98 F 09/22/19 09:20 Pulse Rate 140 H 09/22/19 09:44 Respiratory Rate 28 H 09/22/19 09:44 Blood Pressure 106/64 09/22/19 09:44 O2 Sat by Pulse Oximetry (%) 96 09/21/19 21:00 Constitutional: Yes: Mild Distress Eyes: Yes: Conjunctiva Clear Cardiovascular: Yes: Tachycardia Respiratory: Yes: Regular, Diminished, On Nasal O2, Tachypnea Gastrointestinal: Yes: Normal Bowel Sounds, Soft, Abdomen, Obese Genitourinary: Yes: Incontinence Musculoskeletal: Yes: Joint Stiffness, Muscle Weakness Extremities: Yes: WNL Edema: No Neurological: Yes: Alert, Oriented Psychiatric: Yes: Alert, Oriented Labs: CBC, BMP 09/22/19 07:50 09/22/19 07:50 INR, PTT INR 3.09 (0.83-1.09) H 09/20/19 22:24 Microbiology 09/21/19 00:28 Urine - Urine - Catheterized Urine Culture - Final NO GROWTH OBTAINED 09/21/19 00:00 Blood - Peripheral Venous Blood Culture - Preliminary NO GROWTH OBTAINED AFTER 24 HOURS, INCUBATION TO CONTINUE FOR 4 DAYS. 09/21/19 00:00 Blood - Peripheral Venous Blood Culture - Preliminary NO GROWTH OBTAINED AFTER 24 HOURS, INCUBATION TO CONTINUE FOR 4 DAYS. Problem List - Problems (1) Tachycardia Assessment/Plan: -Cardiology consult~spoke with Dr Serra in regards to case -Troponin annd D-dimer ordered -EKG -NS 500cc bolus x 1 -if D-dimer severely elevated will ordered Chest CTA -transfer to telemetry for cardiac monitoring Code(s): R00.0 - TACHYCARDIA, UNSPECIFIED (2) Acute on chronic respiratory failure with hypoxia and hypercapnia Assessment/Plan: -Pulm on board -Bronchodilators -O2 via C -Bipap HS -CHest CT shows atelectasis/infiltration at both bases -Keep SpO2 >90% Code(s): J96.21 - ACUTE AND CHRONIC RESPIRATORY FAILURE WITH HYPOXIA; J96.22 - ACUTE AND CHRONIC RESPIRATORY FAILURE WITH HYPERCAPNIA (3) Leukocytosis Assessment/Plan: -WBC 13.3 -afebrile -BC and UC neg -MRSA screen pending -Vancomycin and Zosyn -ID on board -Tylenol for temp >100F Code(s): D72.829 - ELEVATED WHITE BLOOD CELL COUNT, UNSPECIFIED Qualifiers: Leukocytosis type: unspecified Qualified Code(s): D72.829 - Elevated white blood cell count, unspecified (4) Paget's bone disease Assessment/Plan: -Hematology on board Code(s): M88.9 - OSTEITIS DEFORMANS OF UNSPECIFIED BONE (5) Pneumonia Assessment/Plan: -WBC 13.3 -afebrile -BC neg -MRSA screen pending -Vancomycin and Zosyn -ID on board -Tylenol for temp >100F -Pulm on board -Bronchodilators -O2 via C -Bipap HS -CHest CT shows atelectasis/infiltration at both bases -Keep SpO2 >90% Code(s): J18.9 - PNEUMONIA, UNSPECIFIED ORGANISM Qualifiers: Pneumonia type: due to unspecified organism Laterality: left Lung location: lower lobe of lung Qualified Code(s): J18.9 - Pneumonia, unspecified organism (6) Polyarthralgia Assessment/Plan: -Rheumatology consult -ESR >140, CRP 41.6, Uric Acid wnl -pain control -s/p aspiration L knee~fluid sent for culture -IV medrol Code(s): M25.50 - PAIN IN UNSPECIFIED JOINT (7) Anemia Assessment/Plan: -Iron Polysaccharide -Anemia panel shows low Iron/TIBC -Hg 7.2 -monitor H/H -transfuse for Hg <7.0 to avoid fluid overload -will order 1U PRBC for transfusion Code(s): D64.9 - ANEMIA, UNSPECIFIED (8) Atrial fibrillation Assessment/Plan: -Eliquis BID Code(s): I48.91 - UNSPECIFIED ATRIAL FIBRILLATION (9) HLD (hyperlipidemia) Assessment/Plan: -Atorvastatin Code(s): E78.5 - HYPERLIPIDEMIA, UNSPECIFIED (10) Hypertension Assessment/Plan: -Amlodipine -low Na diet Code(s): I10 - ESSENTIAL (PRIMARY) HYPERTENSION Qualifiers: Hypertension type: unspecified Qualified Code(s): I10 - Essential (primary ) hypertension (11) BPH (benign prostatic hyperplasia) Assessment/Plan: -Tamsulosin Code(s): N40.0 - BENIGN PROSTATIC HYPERPLASIA WITHOUT LOWER URINRY TRACT SYMP (12) Diabetes Assessment/Plan: -diet controlled Code(s): E11.9 - TYPE 2 DIABETES MELLITUS WITHOUT COMPLICATIONS Qualifiers: Diabetes mellitus type: other specified (including TAN) Diabetes mellitus aviation medicine specialist insulin use: unspecified group home insulin use status Diabetes mellitus complication status: with other specified complication Qualified Code (s): E13.69 - Other specified diabetes mellitus with other specified complication (13) UTI (urinary tract infection) Assessment/Plan: -ID on board -leukocytosis -afebrile -UA shows 3+ leuks, 3+ protein, 2+ bilirubin -UC neg Code(s): N39.0 - URINARY TRACT INFECTION, SITE NOT SPECIFIED (14) BEKA (acute kidney injury) Assessment/Plan: -Renal on board -BUN/Cr 56.4/1.4 -monitor real function Code(s): N17.9 - ACUTE KIDNEY FAILURE, UNSPECIFIED Assessment/Plan see problem list
--- NOTE | 2019-09-22 10:33 | CON.CARD ---
Consult Consult Specialty:: cardiology Reason for Consultation:: tachycardia - History of Present Illness Chief Complaint: Pt is alert; anxious; c/o chest pounding, SOB History of Present Illness: The patient is a year old black man with a past medical history of diabetes, diastolic CHF, afib, anemia, COPD, HTN,, HLD, polyarthritis, Paget's disease, who is here today from [facility] ([place], [place]) for evaluation of shortness of breath. The patient was recently discharged and was placed at [facility] ([place], [place]) where he was being treated with antibiotics for pneumonia. While at [facility] ([place], [place]) the patient was noted to be short of breath since yesterday. Patient denies headache, lightheadedness. Denies fever, chills. Denies chest pain, shortness of breath. Denies nausea, vomiting, diarrhea, abdominal pain. Allergies: NKA PCP: Jaz Mendieta - History Source History Provided By: Patient, Medical Record Limitations to Obtaining History: Poor Historian - Past Medical History Cardio/Vascular: Yes: AFIB, CAD, CHF (low normal LVEF on 02/25 ECHO), HTN, Hyperlipdemia, Pulmonary Hypertension Pulmonary: Yes: COPD, O2 Dependent, Other (pulmonary htn) Gastrointestinal: Yes: Other (colon polyps). No: Ascites Renal/: Yes: BPH, Other Heme/Onc: Yes: Anemia Psych: Yes: Depression (diagnosed 09/2019) Rheumatology: Yes: Gout Endocrine: Yes: Diabetes Mellitus - Past Surgical History Past Surgical History: Yes: Stent - Alcohol/Substance Use Hx Alcohol Use: No History of Substance Use: reports: None - Smoking History Smoking history: Never smoked Have you smoked in the past 12 months: No Aproximately how many cigarettes per day: 0 - Social History Usual Living Arrangement: Alf ADL: Support Services History of Recent Travel: No Home Medications - Allergies Allergies/Adverse Reactions: Allergies Allergy/AdvReac Type Severity Reaction Status Date / Time No Known Allergies Allergy Verified 09/20/19 22:46 - Home Medications Home Medications: Ambulatory Orders Alendronate Na [Fosamax (Weekly)] 70 mg PO WEEKLY 01/29/17 Atorvastatin Calcium 40 mg PO HS 01/29/17 Aspirin Coated [Ecotrin -] 81 mg PO DAILY tablet.ec 11/05/17 Amlodipine Besylate 5 mg PO DAILY 05/04/18 Acetaminophen [Tylenol .Regular Strength -] 650 mg PO Q6H PRN tablet 03/07/19 Apixaban [Eliquis -] 5 mg PO BID tablet 03/07/19 Insulin Sliding Scale [Novolog Vial Sliding Scale -] 1 vial SQ ACHS units 03/07 Docusate Sodium [Colace] 300 mg PO HS 06/23/19 Gabapentin 300 mg PO TID 06/23/19 Insulin Glargine,Hum.rec.anlog [Basaglar Kwikpen U-100] 20 unit SQ DAILY Polyethylene Glycol 3350 [Miralax 119 gm Btl -] 17 gm PO DAILY 06/23/19 Tamsulosin HCl [Flomax] 0.4 mg PO DAILY 06/23/19 Zinc Oxide 20% Topical Oint 1 appful DAILY PRN 06/23/19 Lidocaine 5% Patch [Lidoderm -] 1 patch TP DAILY patch 07/01/19 Melatonin 3 mg PO HS 08/31/19 Metoprolol Tartrate 25 mg PO BID 08/31/19 Multivitamin [Multiple Vitamins] 1 each PO DAILY 08/31/19 Albuterol 2.5/Ipratropium 0.5 [Duoneb -] 1 amp NEB RQID amp 09/17/19 Duloxetine HCl [Cymbalta -] 20 mg PO DAILY capsule. 09/17/19 Ferrous Sulfate [Feosol] 325 mg PO BID ud 09/17/19 Lisinopril [Prinivil] 2.5 mg PO DAILY tablet 09/17/19 Magnesium Hydrox 2400MG/30Ml [Milk of Magnesia -] 30 ml PO DAILY PRN cup Sennosides [Senna -] 2 tab PO HS PRN tablet 09/17/19 Sitagliptin Phosphate [Januvia -] 25 mg PO DAILY@0700 tab 09/17/19 Mag Hydrox/Al Hydrox/Simeth [Mylanta *Suspension*] 30 ml PO Q6H 09/21/19 Oxycodone HCl 10 mg PO Q8H PRN 09/21/19 Phenazopyridine HCl [Pyridium] 200 mg PO TID 09/21/19 Piperacillin/Tazob 3.375 gm [Zosyn 3.375GM Ivpb (Pre-Docked)] 3.375 gm IVPB Q8H 09/21/19 Potassium Chloride [K-Dur -] 40 meq PO DAILY 09/21/19 Silver Sulfadiazine 1% Top Cr [Silvadene -] 1 applic TP DAILY 09/21/19 predniSONE [Deltasone] 20 mg PO DAILY 09/21/19 Family Medical History Family History: Denies Review of Systems - Review of Systems Constitutional: reports: Weakness Eyes: reports: No Symptoms HENT: reports: No Symptoms Neck: reports: No Symptoms Cardiovascular: reports: Palpitations, Shortness of Breath Respiratory: reports: SOB Gastrointestinal: reports: No Symptoms Genitourinary: reports: No Symptoms Breasts: reports: No Symptoms Reported Musculoskeletal: reports: Joint Pain (hands; knees), Muscle Weakness Integumentary: reports: No Symptoms Neurological: reports: Weakness Endocrine: reports: No Symptoms Hematology/Lymphatic: reports: No Symptoms Psychiatric: reports: Anxiety - Risk Factors Known Risk Factors: Yes: Age, Diabetes Mellitus, Gender, Hypercholesterolemia, Hypertension, Physical Inactivity, Race Vital Signs: Vital Signs Temperature 98 F 09/22/19 09:20 Pulse Rate 142 H 09/22/19 10:15 Respiratory Rate 28 H 09/22/19 10:15 Blood Pressure 112/78 09/22/19 10:15 O2 Sat by Pulse Oximetry (%) 96 09/21/19 21:00 Constitutional: Yes: Anxious Eyes: Yes: WNL HENT: Yes: WNL Neck: Yes: WNL Respiratory: Yes: Diminished Gastrointestinal: Yes: Soft Renal/: No: Anuria Cardiovascular: Yes: Tachycardia JVD: No Carotid Bruit: No PMI: Non-Displaced Heart Sounds: Yes: S2 Murmur: Yes: Systolic Murmur, Grade 1 Musculoskeletal: Yes: Joint Stiffness, Muscle Weakness Extremities: Yes: Cool Edema: No Peripheral Pulses WNL: Yes Integumentary: Yes: WNL Neurological: Yes: Alert, Oriented, Weakness Psychiatric: Yes: Alert, Oriented, Other (anxioius) - Other Data Labs, Other Data: CBC, BMP 09/22/19 07:50 09/22/19 07:50 INR, PTT INR 3.09 (0.83-1.09) H 09/20/19 22:24 Abnormal Lab Results 09/20/19 09/25/19 09/25/19 22:24 05:48 05:48 Anion Gap 5 L BUN 66.8 H Random Glucose 233 H Ferritin 1938.8 H AST 9 L Creatine Kinase Total Protein 5.9 L Albumin 2.3 L Crossmatch See Detail 09/25/19 05:48 Anion Gap BUN Random Glucose Ferritin AST Creatine Kinase 11 L Total Protein Albumin Crossmatch Ejection Fraction %: LVEF > or = 40 % Imaging - Results Chest X-ray: Image Reviewed EKG: Image Reviewed Problem List - Problems (1) Dehydration Assessment/Plan: BUN markedly elevated since in the past week; CXR: no active pathology. IV fluids; ascertain there is no acute bleed (hx chrnoic anemia). Code(s): E86.0 - DEHYDRATION (2) Acute on chronic respiratory failure with hypoxia and hypercapnia Code(s): J96.21 - ACUTE AND CHRONIC RESPIRATORY FAILURE WITH HYPOXIA; J96.22 - ACUTE AND CHRONIC RESPIRATORY FAILURE WITH HYPERCAPNIA (3) Leukocytosis Code(s): D72.829 - ELEVATED WHITE BLOOD CELL COUNT, UNSPECIFIED Qualifiers: Leukocytosis type: unspecified Qualified Code(s): D72.829 - Elevated white blood cell count, unspecified (4) Paget's bone disease Code(s): M88.9 - OSTEITIS DEFORMANS OF UNSPECIFIED BONE (5) Pneumonia Code(s): J18.9 - PNEUMONIA, UNSPECIFIED ORGANISM Qualifiers: Pneumonia type: due to unspecified organism Laterality: left Lung location: lower lobe of lung Qualified Code(s): J18.9 - Pneumonia, unspecified organism (6) Tachycardia Code(s): R00.0 - TACHYCARDIA, UNSPECIFIED (7) Depression Code(s): F32.9 - MAJOR DEPRESSIVE DISORDER, SINGLE EPISODE, UNSPECIFIED (8) Diabetes Code(s): E11.9 - TYPE 2 DIABETES MELLITUS WITHOUT COMPLICATIONS Qualifiers: Diabetes mellitus type: other specified (including TAN) Diabetes mellitus half-way insulin use: unspecified half-way insulin use status Diabetes mellitus complication status: with other specified complication Qualified Code (s): E13.69 - Other specified diabetes mellitus with other specified complication (9) Diastolic CHF Code(s): I50.30 - UNSPECIFIED DIASTOLIC (CONGESTIVE) HEART FAILURE (10) HLD (hyperlipidemia) Code(s): E78.5 - HYPERLIPIDEMIA, UNSPECIFIED (11) SVT (supraventricular tachycardia) Assessment/Plan: EKG: SVT; no change in QRS morphology compared to prior (AF) EKG. Recommend: Restart metoprolol (held before due to hypotension; now normotensive with IV fluids); IVP metorpolol prn. Transfer to telemetry. Dehydration a likely contributer to this event; for IVF, PRBCs. F/u BUN/Cr, electrolytes. Addendum: Pt received metoprolol ER 25 mg PO, then metoprolol IVP 2.5 mg without change in SVT. Adenosine 6 mg IVP was given; rhythm converted briefly to AF, then returned to SVT at 140 bpm. Several minutes later, HR increased, with periods of NSVT. IV bolus of amiodarone was given; BP increased to 130s systolic, though HR remained elevated. He was transferred to ICU, and started on IV diltiazem, with subsequent HR decreasing to 90s bpm (AF). Will plan to give PO diltiazem while titrating off diltiazem; will continue PO metoprolol in am. F/u TNI serially (0.03 xs 2 as of early this morning); TSH WNL. Rehydrate with IVF and PRBCs (irond deficiency anemia). Code(s): I47.1 - SUPRAVENTRICULAR TACHYCARDIA
[2019-09-22 10:52] LABS: ANISOCYTOSIS 1+; PLATELET ESTIMATE NORMAL
[2019-09-22] MEDS: APIXABAN 5 MG TABLET PO SCH ×2 (11:11→21:42)
[2019-09-22] MEDS: METOPROLOL TARTRATE 25 MG TABLET (FP) PO SCH ×2 (11:11→21:42)
[2019-09-22] MEDS: LISINOPRIL 5 MG TABLET (FP) PO SCH (11:13)
[2019-09-22] MEDS: amLODIPine BESYLATE 5 MG TABLET (FP) PO SCH (11:13)
[2019-09-22] MEDS: ASPIRIN COATED 81 MG TABLET.EC PO SCH (11:14)
[2019-09-22] MEDS: MULTIVITAMINS (DAILY MVI) TABLET (FP) PO SCH (11:26)
[2019-09-22] MEDS: TAMSULOSIN HCL 0.4 MG CAP PO SCH (11:26)
[2019-09-22] MEDS: LIDOCAINE 5% TOPICAL PATCH TP SCH (11:26)
[2019-09-22] MEDS ORDERED: PT OWN MED DRAWER 7, Y5N ONE (11:40)
--- NOTE | 2019-09-22 12:04 | RAPID ---
<Jey Polo - Last Filed: 09/23/19 18:01> Physical Examination Vital Signs: Rapid response was called overhead. Rapid response team arrived to the scene. Pt was in acute distress, w/ ventricular tachycardia and hypotension. Lottery Office Manager and hospitalist were present and pt was started on adenosine 6, amiodarone 150 and lopressor 5 mg for hypotension. BP was controlled, ICU was called and pt was transferred to icu for monitoring. Vital Signs HR 143 BP 131/67 O2Sat 84 to then 90 on Nonrebreather PE General: pt in acute distress HEENT: pt not cyanotic. Moist mucous membranes CV: Ventricular tachy at 150s. No m/g/r Pul: CTAB Extremities: 2+DP, no edema, or cyanosis Labs: CBC, BMP 09/22/19 07:50 09/22/19 07:50 <Be Judge - Last Filed: 09/24/19 16:24> Physical Examination Vital Signs: Labs: CBC, BMP 09/24/19 06:35 09/24/19 06:35 Critical Care Total Critical Care Time (in minutes): 30 Critical Care Statement: The care of this patient involved high complexity decision making to prevent further life threatening deterioration of the patient 's condition and/or to evaluate & treat vital organ system(s) failure or risk of failure.
[2019-09-22] MEDS ORDERED: morphine SULFATE 4 MG/ML VIAL ONE (12:05)
[2019-09-22] MEDS ORDERED: dilTIAZem HCL 50 MG/10 ML - 10 ML VIAL IVPUSH ONE ×2 (12:26→12:37)
[2019-09-22] MEDS ORDERED: AMIODARONE HCL 150 MG/3 ML VIAL IVPUSH ONE (12:30)
[2019-09-22] MEDS ORDERED: IRON SUCROSE INJECTION 200 MG in SODIUM CHLORIDE 90 ML IVPB ONE (12:30)
[2019-09-22] MEDS ORDERED: NICARDIPINE 25 MG in DEXTROSE 5%-WATER - 240 ML IVPB SCH (12:45)
--- NOTE | 2019-09-22 13:07 | CONSULT ---
Consultation: REQUESTING PROVIDER: CONSULT REQUEST: We have been asked to medically evaluate this patient for ICU admission. HISTORY OF PRESENT ILLNESS: 78 y/o/m with a PMHx of COPD, HTN, HLD, CAD (s/p Stent), DM, CHF (pEF), Gout, Afib (on Eliquis), Anemia, Paget's disease Prostate Ca. Patient was recently admitted on 08/31 for hematuria and urinary retention and treated for a LLL PNA. He was discharged to [facility] for further treatment. He was sent to the ED for complaints of SOB. He was admitted for worsening PNA failing outpatient therapy. Rapid response called today for hypoxia and rapid afib. He initially had SVT and was given adenosine which caused him to go into afib. He was given Amiodorone and Lopressor during the rapid response. Patient transferred to ICU for further monitoring. He complains of joint pain. Denies any chest pain, SOB, abd pain, N/V/D, chills , dizziness. REVIEW OF SYSTEMS: As per HPI PHYSICAL EXAMINATION Vital Signs - 24 hr 09/21/19 09/21/19 09/21/19 15:00 17:54 18:00 Temperature 98.7 F 99.1 F Pulse Rate 94 H 97 H Respiratory 20 20 Rate Blood Pressure 108/67 115/61 O2 Sat by Pulse 100 Oximetry (%) 09/21/19 09/22/19 09/22/19 21:00 00:00 06:00 Temperature 97.4 F L 98.2 F Pulse Rate 99 H 104 H Respiratory 20 20 Rate Blood Pressure 145/63 113/64 O2 Sat by Pulse 96 Oximetry (%) 09/22/19 09/22/19 09/22/19 09:20 09:25 09:44 Temperature 98 F Pulse Rate 139 H 140 H 140 H Respiratory 28 H 28 H 28 H Rate Blood Pressure 87/60 L 87/58 L 106/64 O2 Sat by Pulse Oximetry (%) 09/22/19 09/22/19 09/22/19 10:15 11:05 11:35 Temperature 97.9 F Pulse Rate 142 H 139 H 140 H Respiratory 28 H 28 H 28 H Rate Blood Pressure 112/78 95/58 L 96/59 L O2 Sat by Pulse Oximetry (%) GENERAL: Awake, alert, and fully oriented, in no acute distress. HEAD: Normal with no signs of trauma. EYES: PERRL, EOMI EARS, NOSE, THROAT: Dry mucous membranes. NECK: supple, trachea midline, no cervical lymphadenopathy LUNGS: CTA B/L, no wheezing, rales, rhonchi. No accessory muscle use HEART: Regular rate and rhythm, normal S1 and S2 without murmur, rub or gallop. ABDOMEN: mild diffuse tenderness to palpation, soft, nondistended, normoactive bowel sounds MUSCULOSKELETAL: tenderness to palpation over left ankle, no ecchymosis. EXTREMITIES: 2+ pulses, warm, well-perfused. No calf tenderness. No peripheral edema. NEUROLOGICAL: Cranial nerves II-XII intact. Normal speech. 4/5 strength upper and lower extremities PSYCHIATRIC: Cooperative. Good eye contact. Appropriate mood and affect. SKIN: Warm, dry, normal turgor, no rashes or lesions noted. Laboratory Results - last 24 hr 09/20/19 09/21/19 09/22/19 22:24 18:00 05:31 WBC RBC Hgb Hct MCV MCH MCHC RDW Plt Count MPV Absolute Neuts (auto) Neutrophils % Neutrophils % (Manual) Band Neutrophils % Lymphocytes % Lymphocytes % (Manual) Monocytes % Monocytes % (Manual) Eosinophils % Eosinophils % (Manual) Basophils % Basophils % (Manual) Myelocytes % (Man) Promyelocytes % (Man) Blast Cells % (Manual) Nucleated RBC % Metamyelocytes Hypochromia Platelet Estimate Platelet Comment Polychromasia Poikilocytosis Anisocytosis Fragmented RBCs Retic Count D-Dimer Sodium Potassium Chloride Carbon Dioxide Anion Gap BUN Creatinine Est GFR (CKD-EPI)AfAm Est GFR (CKD-EPI)NonAf POC Glucometer 223 Random Glucose Calcium Phosphorus Magnesium Iron TIBC Iron Saturation Unsaturated IBC Ferritin Total Bilirubin AST ALT Alkaline Phosphatase Troponin I Total Protein Albumin Synovial Source Sinovial Synovial WBC 61.228 [place] RBC 850[address] Synovial Neutrophils 84 Synovial Lymphocytes 5 Synovial Monocytes 8 Synovial Histocytes No Result Required. Synovial Plasma Cells No Result Required. Synovial LE Cells No Result Required. Synovial Macrophages 3 Synovial Other Cells No Result Required. Synovial Diff Comment No Result Required. Synovial Crystals Positive Random Vancomycin Blood Type O POSITIVE Antibody Screen Negative Crossmatch See Detail 09/22/19 09/22/19 09/22/19 07:50 07:50 07:50 WBC 13.3 H RBC 2.39 L Hgb 7.2 L Hct 23.6 L MCV 99.0 H MCH 30.2 MCHC 30.6 L RDW 19.4 H Plt Count 303 MPV 8.1 Absolute Neuts (auto) 12.7 H Neutrophils % 95.3 H Neutrophils % (Manual) 98.0 H Band Neutrophils % 0.0 Lymphocytes % 2.0 L D Lymphocytes % (Manual) 1.0 L Monocytes % 2.6 L Monocytes % (Manual) 1 L Eosinophils % 0.0 D Eosinophils % (Manual) 0.0 D Basophils % 0.1 Basophils % (Manual) 0.0 Myelocytes % (Man) 0 D Promyelocytes % (Man) 0 Blast Cells % (Manual) 0 Nucleated RBC % 0 Metamyelocytes 0 Hypochromia 0 Platelet Estimate Normal Platelet Comment Present Polychromasia 1+ Poikilocytosis 0 Anisocytosis 1+ Fragmented RBCs 1+ Retic Count D-Dimer Sodium 139 Potassium 4.4 Chloride 102 Carbon Dioxide 29 Anion Gap 7 L BUN 56.4 H Creatinine 1.4 H Est GFR (CKD-EPI)AfAm 55.77 Est GFR (CKD-EPI)NonAf 48.12 POC Glucometer Random Glucose 247 H Calcium 9.1 Phosphorus 3.8 Magnesium 3.0 H Iron TIBC Iron Saturation Unsaturated IBC Ferritin Total Bilirubin 1.6 H AST 22 ALT 33 Alkaline Phosphatase 105 Troponin I Total Protein 6.0 L Albumin 2.1 L Synovial Source Synovial WBC Synovial RBC Synovial Neutrophils Synovial Lymphocytes Synovial Monocytes Synovial Histocytes Synovial Plasma Cells Synovial LE Cells Synovial Macrophages Synovial Other Cells Synovial Diff Comment Synovial Crystals Random Vancomycin 8.0 L Blood Type Antibody Screen Crossmatch 09/22/19 09/22/19 09/22/19 07:50 07:50 09:34 WBC RBC Hgb Hct MCV MCH MCHC RDW Plt Count MPV Absolute Neuts (auto) Neutrophils % Neutrophils % (Manual) Band Neutrophils % Lymphocytes % Lymphocytes % (Manual) Monocytes % Monocytes % (Manual) Eosinophils % Eosinophils % (Manual) Basophils % Basophils % (Manual) Myelocytes % (Man) Promyelocytes % (Man) Blast Cells % (Manual) Nucleated RBC % Metamyelocytes Hypochromia Platelet Estimate Platelet Comment Polychromasia Poikilocytosis Anisocytosis Fragmented RBCs Retic Count 2.26 H D D-Dimer Sodium Potassium Chloride Carbon Dioxide Anion Gap BUN Creatinine Est GFR (CKD-EPI)AfAm Est GFR (CKD-EPI)NonAf POC Glucometer Random Glucose Calcium Phosphorus Magnesium Iron 49 L TIBC 101 L Iron Saturation 48 H Unsaturated IBC 52 L Ferritin > 2000.0 H Total Bilirubin AST ALT Alkaline Phosphatase Troponin I 0.03 Total Protein Albumin Synovial Source Synovial WBC Synovial RBC Synovial Neutrophils Synovial Lymphocytes Synovial Monocytes Synovial Histocytes Synovial Plasma Cells Synovial LE Cells Synovial Macrophages Synovial Other Cells Synovial Diff Comment Synovial Crystals Random Vancomycin Blood Type Antibody Screen Crossmatch 09/22/19 11:25 WBC RBC Hgb Hct MCV MCH MCHC RDW Plt Count MPV Absolute Neuts (auto) Neutrophils % Neutrophils % (Manual) Band Neutrophils % Lymphocytes % Lymphocytes % (Manual) Monocytes % Monocytes % (Manual) Eosinophils % Eosinophils % (Manual) Basophils % Basophils % (Manual) Myelocytes % (Man) Promyelocytes % (Man) Blast Cells % (Manual) Nucleated RBC % Metamyelocytes Hypochromia Platelet Estimate Platelet Comment Polychromasia Poikilocytosis Anisocytosis Fragmented RBCs Retic Count D-Dimer 2322 H Sodium Potassium Chloride Carbon Dioxide Anion Gap BUN Creatinine Est GFR (CKD-EPI)AfAm Est GFR (CKD-EPI)NonAf POC Glucometer Random Glucose Calcium Phosphorus Magnesium Iron TIBC Iron Saturation Unsaturated IBC Ferritin Total Bilirubin AST ALT Alkaline Phosphatase Troponin I Total Protein Albumin Synovial Source Synovial WBC Synovial RBC Synovial Neutrophils Synovial Lymphocytes Synovial Monocytes Synovial Histocytes Synovial Plasma Cells Synovial LE Cells Synovial Macrophages Synovial Other Cells Synovial Diff Comment Synovial Crystals Random Vancomycin Blood Type Antibody Screen Crossmatch Active Medications Generic Name Dose Route Start Last Admin Trade Name Freq PRN Reason Stop Dose Admin Acetaminophen 650 mg 09/21/19 22:06 Tylenol - PO Q6H PRN FEVER OR PAIN LEVEL 1 - 3 Amlodipine Besylate 5 mg 09/21/19 10:00 09/22/19 11:13 Norvasc - PO Not Given DAILY COLIN Apixaban 5 mg 09/21/19 10:00 09/22/19 11:11 Eliquis - PO 5 mg BID COLIN Administration Aspirin 81 mg 09/21/19 10:00 09/22/19 11:14 Ecotrin - PO Not Given DAILY COLIN Atorvastatin Calcium 40 mg 09/21/19 22:00 09/21/19 22:07 Lipitor - PO 40 mg HS COLIN Administration Chlorhexidine Gluconate 1 applic 09/22/19 22:00 Hibiclens For Decolonization - TP HS COLIN Docusate Sodium 300 mg 09/21/19 22:00 09/21/19 22:07 Colace - PO 300 mg HS COLIN Administration Duloxetine HCl 20 mg 09/21/19 10:00 09/21/19 11:29 Cymbalta - PO 20 mg DAILY COLIN Administration Gabapentin 300 mg 09/21/19 07:00 09/22/19 06:23 Neurontin - PO 300 mg TID COLIN Administration Piperacillin Sod/Tazobactam 50 mls @ 100 mls/hr 09/21/19 11:15 09/22/19 11:27 Sod 3.375 gm/ Dextrose IVPB 100 mls/hr Q8H-IV COLIN Administration Protocol Nicardipine HCl 25 mg/ 250 mls @ 25 mls/hr 09/22/19 12:45 Dextrose IVPB TITR COLIN Protocol 2.5 MG/HR Lidocaine 1 patch 09/21/19 10:00 09/22/19 11:26 Lidoderm Patch - TP 1 patch DAILY COLIN Administration Lisinopril 2.5 mg 09/21/19 10:00 09/22/19 11:13 Prinivil PO Not Given DAILY [facility] Methylprednisolone Sodium Succinate 40 mg 09/21/19 19:00 09/22/19 11:25 Solu-Medrol - IVPB 40 mg Q8H-IV COLIN Administration Metoprolol Tartrate 25 mg 09/21/19 10:00 09/22/19 11:11 Lopressor - PO 25 mg BID COLIN Administration Miscellaneous 1 each 09/21/19 22:00 09/21/19 22:08 Lidoderm Patch Removal MC 1 each DAILY@2200 COLIN Administration Morphine Sulfate 4 mg 09/21/19 22:14 Morphine Sulfate IVPUSH Q4H PRN PAIN LEVEL 7 - 10 Multivitamins/Minerals/Vitamin C 1 tab 09/21/19 10:00 09/22/19 11:26 Tab-A-Vit - PO 1 tab DAILY CLOIN Administration Mupirocin 1 applic 09/22/19 22:00 Bactroban Ointment (For Decolonization) - NS 09/27/19 21:59 BID [facility] Oxycodone HCl 5 mg 09/21/19 22:04 09/22/19 06:23 Roxicodone - PO 5 mg Q4H PRN Administration PAIN LEVEL 4 - 6 Polyethylene Glycol 17 gm 09/22/19 10:00 Miralax (For Daily Use) - PO BID [facility] Polysaccharide Iron Complex 150 mg 09/22/19 10:00 09/22/19 11:26 Niferex-150 - PO 150 mg DAILY COLIN Administration Sitagliptin Phosphate 25 mg 09/21/19 07:00 09/22/19 06:23 Januvia - PO 25 mg DAILY@0700 [facility] Administration Tamsulosin HCl 0.4 mg 09/21/19 08:30 09/22/19 11:26 Flomax - PO 0.4 mg DAILY@0830 [facility] Administration ASSESSMENT/PLAN: 78 y/o/m with a PMHx of COPD, HTN, HLD, CAD (s/p Stent), DM, CHF (pEF), Gout, Afib (on Eliquis), Anemia, Paget's disease, Prostate Ca. He was admitted for worsening PNA failing outpatient therapy and diffuse joint pain. Transferred to ICU for rapid HR and hypoxia. #Neuro - AAOx3, monitor - pain control with oxycodone and morphine #Cardio - history of afib, rapid response called today for rapid HR, patient sent to ICU - Amiodorone and Lopressor given during rapid response with improvement - Diltiazem 10mg x2 given then started on Diltiazem drip with improvement in rate - EKG ordered - Hx of hypertension, continue home dose of Metoprolol and Amlodipine - Hx of HLD, continue atorvastatin - D-dimer at 2322 #Respiratory - respiratory function improved on BIPAP. wean as tolerated - CXR on 09/22 - progressive congestive changes with right sided infiltrate - maintain spO2 >90% #GI - stool for occult blood ordered - Bowel regimen - T bili 1.6 #Heme - Hbg/ Hct 7.2/23.6 - Tranfuse 1 unit PRBC, check CBC after transfusion - Heme onc on board - Iron 49, TIBC 101, Iron saturation 48, Unsaturated IBC 52, Ferritin >2000 #Renal - Renal on board - BUN/Cr at 56.4/1.4 - Renal and bladder US pending - Urine studies pending - Hold ACEi - avoid NSAIDs for pain control - hold IVF due to hypoxia/chest congestion in the setting of rapid afib - monitor renal function #ID - ID on board - afebrile but has leukocytosis - WBC improving, 15.9 -> 13.3 - UA shows 3+ leuks, 3+ protein, 2+ bilirubin - UCx negative - Blood cultures negative - MRSA screen pending - On Zosyn - Vanco x1 given in ED #Rheum - Systemic inflammatory arthritis of unknown etiology - Left knee aspirated, WBC 61, positive crystals, RBC 72067 - Continue Solumedrol 40mg IV - Lyme studies pending # - hx of prostate cancer - continue tamsulosin #Endo - BGMs - ISS #Prophylaxis - Eliquis #FEN - NPO while on BIPAP #Disposition - ICU monitoring Visit type - Emergency Visit Emergency Visit: Yes ED Registration Date: 09/21/19 Care time: The patient presented to the Emergency Department on the above date and was hospitalized for further evaluation of their emergent condition. - New Patient This patient is new to me today: Yes Date on this admission: 09/22/19 - Critical Care Critical Care patient: Yes Total Critical Care Time (in minutes): 36 Critical Care Statement: The care of this patient involved high complexity decision making to prevent further life threatening deterioration of the patient 's condition and/or to evaluate & treat vital organ system(s) failure or risk of failure. ATTENDING PHYSICIAN STATEMENT I saw and evaluated the patient. I reviewed the resident's note and discussed the case with the resident. I agree with the resident's findings and plan as documented. SUBJECTIVE: OBJECTIVE: ASSESSMENT AND PLAN:
[2019-09-22] MEDS ORDERED: DILTIAZEM INJECTION 125 MG in SODIUM CHLORIDE 100 ML IVPB SCH (13:15)
[2019-09-22] MEDS: DULoxetine HCL 20 MG CAPSULE.DR PO SCH (13:28)
[2019-09-22] MEDS ORDERED: oxyCODONE HCL 5 MG TABLET PO PRN (13:32)
[2019-09-22] MEDS ORDERED: ACETAMINOPHEN 325 MG TABLET (FP) PO PRN (13:32)
[2019-09-22] MEDS ORDERED: morphine SULFATE 4 MG/ML VIAL IVPUSH PRN (13:32)
--- NOTE | 2019-09-22 13:42 | PN ---
Teaching Attending Note Name of Resident: Nevaeh Aguirre ATTENDING PHYSICIAN STATEMENT I saw and evaluated the patient. I reviewed the resident's note and discussed the case with the resident. I agree with the resident's findings and plan as documented. SUBJECTIVE: Pt seen and examined in the ICU. Transferred down after rapid response called for rapid atrial fibrillation and hypoxia. Noted to be in rapid atrial fibrillation with VR as high as 160. Saturating low 90s with NRB. Borderline hypotension now on BiPAP. CXR showing acute pulmonary edema. OBJECTIVE: Vital Signs Period Temp Pulse Resp BP Sys/Enamorado Pulse Ox Last 24 Hr 97.4 F-98.2 F 80-142 20-28 87-145/54-81 95-96 Intake & Output 09/19/19 09/20/19 09/21/19 09/22/19 23:59 23:59 23:59 23:59 Intake Total 400 1240 Balance 400 1240 Weight 97.522 kg 101.264 kg Gen: mildly tachypneic on BiPAP Heart: tachycardic, irregular Lung: decreased breath sounds at the bases Abd: soft, nontender Ext: + edema CBC, BMP 09/22/19 07:50 09/22/19 07:50 Active Medications Acetaminophen (Tylenol -) 650 mg PO Q6H PRN PRN Reason: FEVER OR PAIN LEVEL 1 - 3 Amlodipine Besylate (Norvasc -) 5 mg PO DAILY [facility] Apixaban (Eliquis -) 5 mg PO BID [facility] Aspirin (Ecotrin -) 81 mg PO DAILY [facility] Atorvastatin Calcium (Lipitor -) 40 mg PO HS [facility] Chlorhexidine Gluconate (Hibiclens For Decolonization -) 1 applic TP HS [facility] Docusate Sodium (Colace -) 300 mg PO HS [facility] Duloxetine HCl (Cymbalta -) 20 mg PO DAILY [facility] Gabapentin (Neurontin -) 300 mg PO TID [facility] Last Admin: 09/22/19 14:00 Dose: Not Given Diltiazem HCl 125 mg/ Sodium (Chloride) 125 mls @ 5 mls/hr IVPB TITR [facility]; Protocol Last Admin: 09/22/19 13:27 Dose: 5 mg/hr, 5 mls/hr Piperacillin Sod/Tazobactam (Sod 3.375 gm/ Dextrose) 50 mls @ 100 mls/hr IVPB Q8H-IV [facility]; Protocol Last Admin: 09/22/19 17:33 Dose: 100 mls/hr Vancomycin HCl (Vancomycin (Pre-Docked)) 1,000 mg in 250 mls @ 166.667 mls/hr IVPB ONCE ONE; Protocol Stop: 09/22/19 19:47 Insulin Aspart (Novolog Vial Sliding Scale -) 1 vial SQ ACHS [facility]; Protocol Last Admin: 09/22/19 17:33 Dose: 8 units Lidocaine (Lidoderm Patch -) 1 patch TP DAILY [facility] Methylprednisolone Sodium Succinate (Solu-Medrol -) 40 mg IVPB Q8H-IV [facility] Last Admin: 09/22/19 17:33 Dose: 40 mg Metoprolol Tartrate (Lopressor -) 25 mg PO BID [facility] Miscellaneous (Lidoderm Patch Removal) 1 each MC DAILY@2200 [facility] Morphine Sulfate (Morphine Sulfate) 4 mg IVPUSH Q4H PRN PRN Reason: PAIN LEVEL 7 - 10 Multivitamins/Minerals/Vitamin C (Tab-A-Vit -) 1 tab PO DAILY [facility] Mupirocin (Bactroban Ointment (For Decolonization) -) 1 applic NS BID [facility] Stop: 09/27/19 21:59 Oxycodone HCl (Roxicodone -) 5 mg PO Q4H PRN PRN Reason: PAIN LEVEL 4 - 6 Polyethylene Glycol (Miralax (For Daily Use) -) 17 gm PO BID [facility] Polysaccharide Iron Complex (Niferex-150 -) 150 mg PO DAILY [facility] Tamsulosin HCl (Flomax -) 0.4 mg PO DAILY@0830 [facility] ASSESSMENT AND PLAN: Acute Hypoxic and Hypercapneic Respiratory Failure Acute Pulmonary Edema Acute on Chronic Diastolic Heart Failure Atrial Fibrillation with RVR r/o Pneumonia UTI Acute Kidney Injury COPD Paget's Disease DM Anemia - rate control - lasix if BP tolerates - BiPAP to assist in work of breathing - O2 to keep SpO2 >90% - antibiotics per ID - f/u cultures - on empiric medrol - inhaled bronchodilators - continue anticoagulation - hold antihypertensives for now aside from AV paola blockers - ICU monitoring critical care times spent in reviewing chart, evaluating patient and formulating plan 45 min
--- NOTE | 2019-09-22 14:14 | PN ---
Progress Note (short form) - Note Progress Note: Renal follow up for BEKA Pt seen and examined in the ICU s/p [employer] for rapid HR and hypoxia now in ICU on BIPAP feels better continues to have pain and weakness in hands and legs making urine Vital Signs Temperature 97.9 F 09/22/19 11:35 Pulse Rate 140 H 09/22/19 11:35 Respiratory Rate 28 H 09/22/19 11:35 Blood Pressure 96/59 L 09/22/19 11:35 O2 Sat by Pulse Oximetry (%) 96 09/21/19 21:00 Intake & Output 09/19/19 09/20/19 09/21/19 09/22/19 23:59 23:59 23:59 23:59 Intake Total 400 1000 Balance 400 1000 Weight 97.522 kg 101.264 kg Mild distress from pain neck supple, no JVD RRR, no M/R CTA (anterior examination) soft, obese, NT/ND no bladder distension + edema in LE + left ankle pain CBC, BMP 09/21/19 07:58 09/21/19 07:58 Current Medications Acetaminophen (Tylenol -) 650 mg PO Q6H PRN PRN Reason: PAIN LEVEL 6-10 Albuterol/Ipratropium (Duoneb -) 1 amp NEB RQID [facility] Last Admin: 09/21/19 12:26 Dose: Not Given Amlodipine Besylate (Norvasc -) 5 mg PO DAILY [facility] Last Admin: 09/21/19 11:30 Dose: 5 mg Apixaban (Eliquis -) 5 mg PO BID [facility] Last Admin: 09/21/19 11:30 Dose: 5 mg Aspirin (Ecotrin -) 81 mg PO DAILY [facility] Last Admin: 09/21/19 11:39 Dose: 81 mg Atorvastatin Calcium (Lipitor -) 40 mg PO HS [facility] Docusate Sodium (Colace -) 300 mg PO HS [facility] Duloxetine HCl (Cymbalta -) 20 mg PO DAILY [facility] Last Admin: 09/21/19 11:29 Dose: 20 mg Gabapentin (Neurontin -) 300 mg PO TID [facility] Last Admin: 09/21/19 07:31 Dose: 300 mg Piperacillin Sod/Tazobactam (Sod 3.375 gm/ Dextrose) 50 mls @ 100 mls/hr IVPB Q8H-IV [facility]; Protocol Lidocaine (Lidoderm Patch -) 1 patch TP DAILY [facility] Last Admin: 09/21/19 11:27 Dose: 1 patch Lisinopril (Prinivil) 2.5 mg PO DAILY [facility] Last Admin: 09/21/19 11:29 Dose: 2.5 mg Methylprednisolone Sodium Succinate (Solu-Medrol -) 40 mg IVPUSH TID [facility] Last Admin: 09/21/19 11:26 Dose: 40 mg Metoprolol Tartrate (Lopressor -) 25 mg PO BID [facility] Last Admin: 09/21/19 11:30 Dose: 25 mg Miscellaneous (Lidoderm Patch Removal) 1 each MC DAILY@2200 [facility] Morphine Sulfate (Morphine Sulfate) 2 mg IVPUSH Q4H PRN PRN Reason: PAIN LEVEL 6-10 Last Admin: 09/21/19 11:27 Dose: 2 mg Multivitamins/Minerals/Vitamin C (Tab-A-Vit -) 1 tab PO DAILY [facility] Last Admin: 09/21/19 11:30 Dose: 1 tab Polysaccharide Iron Complex (Niferex-150 -) 150 mg PO DAILY [facility] Sitagliptin Phosphate (Januvia -) 25 mg PO DAILY@0700 [facility] Last Admin: 09/21/19 07:31 Dose: 25 mg Tamsulosin HCl (Flomax -) 0.4 mg PO DAILY@0830 [facility] Last Admin: 09/21/19 08:29 Dose: 0.4 mg 78 year old gentleman with history of CHF with reduced LVEF, Afib, Anemia and DM with recent admission for gross hematuria and BEKA now presents with diffuse body pain and joint pain with BEKA. 1. Acute kidney injury (differential: obstruvtive uropathy vs. normotensive ATN vs. volume depletion) 2. Joint pains 3. CHF with reduced LVEF 4. Leukocytosis 5. Anemia Renal function stable, no improvement thus far Check Renal and bladder US pending Urine studies pending Hold ACEi for now given reduced eGFR Pain control w/o NSAIDs off IVF due to hypoxia/chest congestion in setting of rapid afib Trend renal function and electrolytes HR control per cardiology Transfuse as per ICU protocol Thank you Saul Diaz DO
--- NOTE | 2019-09-22 14:46 | EKG ---
Test Reason : Blood Pressure : / mmHG Vent. Rate : 140 BPM Atrial Rate : 140 BPM P-R Int : 056 ms QRS Dur : 156 ms QT Int : 376 ms P-R-T Axes : 075 -84 -05 degrees QTc Int : 574 ms SINUS TACHYCARDIA WITH SHORT OR LEFT AXIS DEVIATION RIGHT BUNDLE BRANCH BLOCK SEPTAL INFARCT (CITED ON OR BEFORE 01-SEP-2019) ABNORMAL ECG WHEN COMPARED WITH ECG OF 20-SEP-2019 22:58, SINUS RHYTHM HAS REPLACED ATRIAL FIBRILLATION Confirmed by RUDDY HO MD ([id number]) on 09/22/2019 2:46:20 PM Referred By: NBA SIMMS DR Confirmed By:RUDDY HO MD
--- NOTE | 2019-09-22 15:40 | PN ---
Physical Exam: SUBJECTIVE: Patient seen and examined at bedside. Pain is decreased from yesterday. Transferred to ICU since last night after rapid response OBJECTIVE: Vital Signs Period Temp Pulse Resp BP Sys/Enamorado Pulse Ox Last 24 Hr 97.4 F-99.1 F 80-142 20-28 87-145/54-81 96-100 Gen: mild distress from pain, AAOx3 HEENT: NCAT, EOMI, poor dentition Neck: no jvd, no thyromegally noted Cardio: rrr, normal s1s2, no mrg noted Pulm: cta b/l Abd: soft, nontender, nondistended Ext: diffuse painful swelling of joints. B/l hands, jada first MCP, and wrists. B /l knees L>R and ankles. LLE ROM limited by pain, but improved since yesterday Laboratory Results - last 24 hr 09/20/19 09/21/19 09/22/19 22:24 18:00 05:31 WBC RBC Hgb Hct MCV MCH MCHC RDW Plt Count MPV Absolute Neuts (auto) Neutrophils % Neutrophils % (Manual) Band Neutrophils % Lymphocytes % Lymphocytes % (Manual) Monocytes % Monocytes % (Manual) Eosinophils % Eosinophils % (Manual) Basophils % Basophils % (Manual) Myelocytes % (Man) Promyelocytes % (Man) Blast Cells % (Manual) Nucleated RBC % Metamyelocytes Hypochromia Platelet Estimate Platelet Comment Polychromasia Poikilocytosis Anisocytosis Fragmented RBCs Retic Count D-Dimer Sodium Potassium Chloride Carbon Dioxide Anion Gap BUN Creatinine Est GFR (CKD-EPI)AfAm Est GFR (CKD-EPI)NonAf POC Glucometer 223 Random Glucose Calcium Phosphorus Magnesium Iron TIBC Iron Saturation Unsaturated IBC Ferritin Total Bilirubin AST ALT Alkaline Phosphatase Troponin I Total Protein Albumin Synovial Source Sinovial Synovial WBC 61.228 [place] RBC 546[address] Synovial Neutrophils 84 Synovial Lymphocytes 5 Synovial Monocytes 8 Synovial Histocytes No Result Required. Synovial Plasma Cells No Result Required. Synovial LE Cells No Result Required. Synovial Macrophages 3 Synovial Other Cells No Result Required. Synovial Diff Comment No Result Required. Synovial Crystals Positive Random Vancomycin Blood Type O POSITIVE Antibody Screen Negative Crossmatch See Detail 09/22/19 09/22/19 09/22/19 07:50 07:50 07:50 WBC 13.3 H RBC 2.39 L Hgb 7.2 L Hct 23.6 L MCV 99.0 H MCH 30.2 MCHC 30.6 L RDW 19.4 H Plt Count 303 MPV 8.1 Absolute Neuts (auto) 12.7 H Neutrophils % 95.3 H Neutrophils % (Manual) 98.0 H Band Neutrophils % 0.0 Lymphocytes % 2.0 L D Lymphocytes % (Manual) 1.0 L Monocytes % 2.6 L Monocytes % (Manual) 1 L Eosinophils % 0.0 D Eosinophils % (Manual) 0.0 D Basophils % 0.1 Basophils % (Manual) 0.0 Myelocytes % (Man) 0 D Promyelocytes % (Man) 0 Blast Cells % (Manual) 0 Nucleated RBC % 0 Metamyelocytes 0 Hypochromia 0 Platelet Estimate Normal Platelet Comment Present Polychromasia 1+ Poikilocytosis 0 Anisocytosis 1+ Fragmented RBCs 1+ Retic Count D-Dimer Sodium 139 Potassium 4.4 Chloride 102 Carbon Dioxide 29 Anion Gap 7 L BUN 56.4 H Creatinine 1.4 H Est GFR (CKD-EPI)AfAm 55.77 Est GFR (CKD-EPI)NonAf 48.12 POC Glucometer Random Glucose 247 H Calcium 9.1 Phosphorus 3.8 Magnesium 3.0 H Iron TIBC Iron Saturation Unsaturated IBC Ferritin Total Bilirubin 1.6 H AST 22 ALT 33 Alkaline Phosphatase 105 Troponin I Total Protein 6.0 L Albumin 2.1 L Synovial Source Synovial WBC Synovial RBC Synovial Neutrophils Synovial Lymphocytes Synovial Monocytes Synovial Histocytes Synovial Plasma Cells Synovial LE Cells Synovial Macrophages Synovial Other Cells Synovial Diff Comment Synovial Crystals Random Vancomycin 8.0 L Blood Type Antibody Screen Crossmatch 09/22/19 09/22/19 09/22/19 07:50 07:50 09:34 WBC RBC Hgb Hct MCV MCH MCHC RDW Plt Count MPV Absolute Neuts (auto) Neutrophils % Neutrophils % (Manual) Band Neutrophils % Lymphocytes % Lymphocytes % (Manual) Monocytes % Monocytes % (Manual) Eosinophils % Eosinophils % (Manual) Basophils % Basophils % (Manual) Myelocytes % (Man) Promyelocytes % (Man) Blast Cells % (Manual) Nucleated RBC % Metamyelocytes Hypochromia Platelet Estimate Platelet Comment Polychromasia Poikilocytosis Anisocytosis Fragmented RBCs Retic Count 2.26 H D D-Dimer Sodium Potassium Chloride Carbon Dioxide Anion Gap BUN Creatinine Est GFR (CKD-EPI)AfAm Est GFR (CKD-EPI)NonAf POC Glucometer Random Glucose Calcium Phosphorus Magnesium Iron 49 L TIBC 101 L Iron Saturation 48 H Unsaturated IBC 52 L Ferritin > 2000.0 H Total Bilirubin AST ALT Alkaline Phosphatase Troponin I 0.03 Total Protein Albumin Synovial Source Synovial WBC Synovial RBC Synovial Neutrophils Synovial Lymphocytes Synovial Monocytes Synovial Histocytes Synovial Plasma Cells Synovial LE Cells Synovial Macrophages Synovial Other Cells Synovial Diff Comment Synovial Crystals Random Vancomycin Blood Type Antibody Screen Crossmatch 09/22/19 11:25 WBC RBC Hgb Hct MCV MCH MCHC RDW Plt Count MPV Absolute Neuts (auto) Neutrophils % Neutrophils % (Manual) Band Neutrophils % Lymphocytes % Lymphocytes % (Manual) Monocytes % Monocytes % (Manual) Eosinophils % Eosinophils % (Manual) Basophils % Basophils % (Manual) Myelocytes % (Man) Promyelocytes % (Man) Blast Cells % (Manual) Nucleated RBC % Metamyelocytes Hypochromia Platelet Estimate Platelet Comment Polychromasia Poikilocytosis Anisocytosis Fragmented RBCs Retic Count D-Dimer 2322 H Sodium Potassium Chloride Carbon Dioxide Anion Gap BUN Creatinine Est GFR (CKD-EPI)AfAm Est GFR (CKD-EPI)NonAf POC Glucometer Random Glucose Calcium Phosphorus Magnesium Iron TIBC Iron Saturation Unsaturated IBC Ferritin Total Bilirubin AST ALT Alkaline Phosphatase Troponin I Total Protein Albumin Synovial Source Synovial WBC Synovial RBC Synovial Neutrophils Synovial Lymphocytes Synovial Monocytes Synovial Histocytes Synovial Plasma Cells Synovial LE Cells Synovial Macrophages Synovial Other Cells Synovial Diff Comment Synovial Crystals Random Vancomycin Blood Type Antibody Screen Crossmatch Active Medications Generic Name Dose Route Start Last Admin Trade Name Freq PRN Reason Stop Dose Admin Acetaminophen 650 mg 09/22/19 13:32 Tylenol - PO Q6H PRN FEVER OR PAIN LEVEL 1 - 3 Amlodipine Besylate 5 mg 09/23/19 10:00 Norvasc - PO DAILY [facility] Apixaban 5 mg 09/22/19 22:00 Eliquis - PO BID [facility] Aspirin 81 mg 09/23/19 10:00 Ecotrin - PO DAILY [facility] Atorvastatin Calcium 40 mg 09/22/19 22:00 Lipitor - PO HS [facility] Chlorhexidine Gluconate 1 applic 09/22/19 22:00 Hibiclens For Decolonization - TP HS [facility] Docusate Sodium 300 mg 09/22/19 22:00 Colace - PO HS [facility] Duloxetine HCl 20 mg 09/23/19 10:00 Cymbalta - PO DAILY [facility] Gabapentin 300 mg 09/22/19 14:00 Neurontin - PO TID [facility] Diltiazem HCl 125 mg/ Sodium 125 mls @ 5 mls/hr 09/22/19 13:15 09/22/19 13:27 Chloride IVPB 5 mg/hr TITR [facility] 5 mls/hr Administration Protocol 5 MG/HR Piperacillin Sod/Tazobactam 50 mls @ 100 mls/hr 09/22/19 18:00 Sod 3.375 gm/ Dextrose IVPB Q8H-IV [facility] Protocol Lidocaine 1 patch 09/23/19 10:00 Lidoderm Patch - TP DAILY [facility] Methylprednisolone Sodium Succinate 40 mg 09/22/19 18:00 Solu-Medrol - IVPB Q8H-IV [facility] Metoprolol Tartrate 25 mg 09/22/19 22:00 Lopressor - PO BID [facility] Miscellaneous 1 each 09/22/19 22:00 Lidoderm Patch Removal MC DAILY@2200 [facility] Morphine Sulfate 4 mg 09/22/19 13:32 Morphine Sulfate IVPUSH Q4H PRN PAIN LEVEL 7 - 10 Multivitamins/Minerals/Vitamin C 1 tab 09/23/19 10:00 Tab-A-Vit - PO DAILY [facility] Mupirocin 1 applic 09/22/19 22:00 Bactroban Ointment (For Decolonization) - NS 09/27/19 21:59 BID [facility] Oxycodone HCl 5 mg 09/22/19 13:32 Roxicodone - PO Q4H PRN PAIN LEVEL 4 - 6 Polyethylene Glycol 17 gm 09/22/19 22:00 Miralax (For Daily Use) - PO BID [facility] Polysaccharide Iron Complex 150 mg 09/23/19 10:00 Niferex-150 - PO DAILY [facility] Sitagliptin Phosphate 25 mg 09/23/19 07:00 Januvia - PO DAILY@0700 [facility] Tamsulosin HCl 0.4 mg 09/23/19 08:30 Flomax - PO DAILY@0830 [facility] ASSESSMENT/PLAN: 78 y/o man from [facility] with a PMHx of COPD (3L), HTN, HLD, CAD (s/p Stent), DM , CHF (pEF), Afib (on Eliquis), Anemia, Prostate Ca. Recent admission 08/31-09/17 for Hematuria, Urinary Retention, treated for LLL Pneumonia. Heme/Onc was consulted for possible Paget's disease SVT -transferred to ICU -currently rate is controlled Paget's -prior bone scan revealed increased uptake jada in L knee without much change from scan in 2017 -L knee aspiration and lido/steroid injection -f/u fluid studies -will discuss with IR if bone bx should be pursued. Left message. Anemia -Fe studies from 09/02/2019 reflect deficiency with possible component of chronic disease -home meds include fe Visit type - Emergency Visit Emergency Visit: No - New Patient This patient is new to me today: No - Critical Care Critical Care patient: No ATTENDING PHYSICIAN STATEMENT I saw and evaluated the patient. I reviewed the resident's note and discussed the case with the resident. I agree with the resident's findings and plan as documented. SUBJECTIVE: OBJECTIVE: ASSESSMENT AND PLAN:
--- NOTE | 2019-09-22 15:55 | PN ---
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 for rapif HR nad hypoxia now in icu in icu feeling better hR better controller still in afib on cardizem drip - Current Medication List Current Medications: Active Medications Acetaminophen (Tylenol -) 650 mg PO Q6H PRN PRN Reason: FEVER OR PAIN LEVEL 1 - 3 Amlodipine Besylate (Norvasc -) 5 mg PO DAILY [facility] Apixaban (Eliquis -) 5 mg PO BID [facility] Aspirin (Ecotrin -) 81 mg PO DAILY [facility] Atorvastatin Calcium (Lipitor -) 40 mg PO HS [facility] Chlorhexidine Gluconate (Hibiclens For Decolonization -) 1 applic TP HS [facility] Docusate Sodium (Colace -) 300 mg PO HS [facility] Duloxetine HCl (Cymbalta -) 20 mg PO DAILY [facility] Gabapentin (Neurontin -) 300 mg PO TID [facility] Diltiazem HCl 125 mg/ Sodium (Chloride) 125 mls @ 5 mls/hr IVPB TITR [facility]; Protocol Last Admin: 09/22/19 13:27 Dose: 5 mg/hr, 5 mls/hr Piperacillin Sod/Tazobactam (Sod 3.375 gm/ Dextrose) 50 mls @ 100 mls/hr IVPB Q8H-IV [facility]; Protocol Insulin Aspart (Novolog Vial Sliding Scale -) 1 vial SQ ACHS [facility]; Protocol Lidocaine (Lidoderm Patch -) 1 patch TP DAILY [facility] Methylprednisolone Sodium Succinate (Solu-Medrol -) 40 mg IVPB Q8H-IV [facility] Metoprolol Tartrate (Lopressor -) 25 mg PO BID [facility] Miscellaneous (Lidoderm Patch Removal) 1 each MC DAILY@2200 [facility] Morphine Sulfate (Morphine Sulfate) 4 mg IVPUSH Q4H PRN PRN Reason: PAIN LEVEL 7 - 10 Multivitamins/Minerals/Vitamin C (Tab-A-Vit -) 1 tab PO DAILY [facility] Mupirocin (Bactroban Ointment (For Decolonization) -) 1 applic NS BID [facility] Stop: 09/27/19 21:59 Oxycodone HCl (Roxicodone -) 5 mg PO Q4H PRN PRN Reason: PAIN LEVEL 4 - 6 Polyethylene Glycol (Miralax (For Daily Use) -) 17 gm PO BID [facility] Polysaccharide Iron Complex (Niferex-150 -) 150 mg PO DAILY [facility] Tamsulosin HCl (Flomax -) 0.4 mg PO DAILY@0830 [facility] - Objective Vital Signs: Vital Signs Temperature 98.1 F 09/22/19 14:00 Pulse Rate 80 09/22/19 14:15 Respiratory Rate 22 H 09/22/19 14:15 Blood Pressure 99/56 L 09/22/19 14:15 O2 Sat by Pulse Oximetry (%) 96 09/21/19 21:00 Constitutional: Yes: Calm Cardiovascular: Yes: Pulse Irregular, S1, S2 Respiratory: Yes: Diminished, On BiPap Gastrointestinal: Yes: Normal Bowel Sounds, Soft Genitourinary: Yes: Iqbal Present Edema: No Labs: CBC, BMP 09/22/19 07:50 09/22/19 07:50 INR, PTT INR 3.09 (0.83-1.09) H 09/20/19 22:24 Assessment/Plan in icu afib monitoring HR cardizem drip BEKA hold acei and avoid NSAId monitor urine output infiltrate/atelectasis on chest CT on iv abx iv medrol anemia iron panel noted got iv venofer
[2019-09-22] MEDS: INSULIN SLIDING SCALE (NOVOLOG) 1 VIAL SQ SCH ×2 (17:33→23:15)
--- NOTE | 2019-09-22 18:17 | PN ---
Progress Note (short form) - Note Progress Note: transferred to ICU after rapid response much more alert s/p rapid afib this am he is alert joint pain much improved Vital Signs Period Temp Pulse Resp BP Sys/Enaomrado Pulse Ox Last 24 Hr 97.4 F-98.2 F 80-142 20-28 87-145/54-81 95-96 cor-rrr lungs decreased bs at bases joints less swollen, lless warm, less tender abd soft,nt ext no edema CBC, BMP 09/22/19 07:50 09/22/19 07:50 Microbiology 09/21/19 18:00 Synovial Fluid - Knee Gram Stain - Final 09/21/19 00:28 Urine - Urine - Catheterized Urine Culture - Final NO GROWTH OBTAINED 09/21/19 00:00 Blood - Peripheral Venous Blood Culture - Preliminary NO GROWTH OBTAINED AFTER 24 HOURS, INCUBATION TO CONTINUE FOR 4 DAYS. 09/21/19 00:00 Blood - Peripheral Venous Blood Culture - Preliminary NO GROWTH OBTAINED AFTER 24 HOURS, INCUBATION TO CONTINUE FOR 4 DAYS. synovial fluid +urate crystals Current Medications Acetaminophen (Tylenol -) 650 mg PO Q6H PRN PRN Reason: FEVER OR PAIN LEVEL 1 - 3 Amlodipine Besylate (Norvasc -) 5 mg PO DAILY [facility] Apixaban (Eliquis -) 5 mg PO BID [facility] Aspirin (Ecotrin -) 81 mg PO DAILY [facility] Atorvastatin Calcium (Lipitor -) 40 mg PO HS [facility] Chlorhexidine Gluconate (Hibiclens For Decolonization -) 1 applic TP HS [facility] Docusate Sodium (Colace -) 300 mg PO HS [facility] Duloxetine HCl (Cymbalta -) 20 mg PO DAILY [facility] Gabapentin (Neurontin -) 300 mg PO TID [facility] Last Admin: 09/22/19 14:00 Dose: Not Given Diltiazem HCl 125 mg/ Sodium (Chloride) 125 mls @ 5 mls/hr IVPB TITR [facility]; Protocol Last Admin: 09/22/19 13:27 Dose: 5 mg/hr, 5 mls/hr Piperacillin Sod/Tazobactam (Sod 3.375 gm/ Dextrose) 50 mls @ 100 mls/hr IVPB Q8H-IV [facility]; Protocol Last Admin: 09/22/19 17:33 Dose: 100 mls/hr Insulin Aspart (Novolog Vial Sliding Scale -) 1 vial SQ ACHS [facility]; Protocol Last Admin: 09/22/19 17:33 Dose: 8 units Lidocaine (Lidoderm Patch -) 1 patch TP DAILY [facility] Methylprednisolone Sodium Succinate (Solu-Medrol -) 40 mg IVPB Q8H-IV [facility] Last Admin: 09/22/19 17:33 Dose: 40 mg Metoprolol Tartrate (Lopressor -) 25 mg PO BID [facility] Miscellaneous (Lidoderm Patch Removal) 1 each MC DAILY@2200 [facility] Morphine Sulfate (Morphine Sulfate) 4 mg IVPUSH Q4H PRN PRN Reason: PAIN LEVEL 7 - 10 Multivitamins/Minerals/Vitamin C (Tab-A-Vit -) 1 tab PO DAILY [facility] Mupirocin (Bactroban Ointment (For Decolonization) -) 1 applic NS BID [facility] Stop: 09/27/19 21:59 Oxycodone HCl (Roxicodone -) 5 mg PO Q4H PRN PRN Reason: PAIN LEVEL 4 - 6 Polyethylene Glycol (Miralax (For Daily Use) -) 17 gm PO BID [facility] Polysaccharide Iron Complex (Niferex-150 -) 150 mg PO DAILY [facility] Tamsulosin HCl (Flomax -) 0.4 mg PO DAILY@0830 [facility] a/p now in ICU for rapid afib on zosyn for pneumonia, redose vancomycin, f/u vanco level in am, f/u MRSA screen 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
[2019-09-22] MEDS ORDERED: VANCOMYCIN 1 GRAM (PRE-DOCKED) 1,000 MG/250 ML BAG IVPB ONE (18:18)
--- NOTE | 2019-09-22 18:22 | PN ---
Progress Note, Physician History of Present Illness: Mr. Peguero is a 78y/o male from [facility] with recent hospital admission (-09/17) for proteus UTI, hematuria, and urinary retention (treated with ceftriaxone and cystoscopy/TURP) as well as LLL pneumonia (started on Zosyn in [place] after discharge). Pt has COPD (3L NC), pulmonary HTN, HFpEF, hx of prostate cancer, BPH, HTN, CAD (s/p stent), HLD, DM2, chronic anemia, and gout. He was to follow up with oncology for potential Paget's disease diagnosis as well per chart. He presents with SOB and generalized arthralgias that have worsened since discharge. He reports being able to ambulate with a walker prior to previous admission and has become progressively weaker and has increased pain. Today rapid response was called for tachycardia and hypotension. Pt was brought to ICU for monitoring of afib and was placed on diltiazem and BiPAP. He reports improved breathing with machine. He also reports less join pain overall compared to yesterday. - Current Medication List Current Medications: Active Medications Acetaminophen (Tylenol -) 650 mg PO Q6H PRN PRN Reason: FEVER OR PAIN LEVEL 1 - 3 Amlodipine Besylate (Norvasc -) 5 mg PO DAILY [facility] Apixaban (Eliquis -) 5 mg PO BID [facility] Aspirin (Ecotrin -) 81 mg PO DAILY [facility] Atorvastatin Calcium (Lipitor -) 40 mg PO HS [facility] Chlorhexidine Gluconate (Hibiclens For Decolonization -) 1 applic TP HS [facility] Docusate Sodium (Colace -) 300 mg PO HS [facility] Duloxetine HCl (Cymbalta -) 20 mg PO DAILY [facility] Gabapentin (Neurontin -) 300 mg PO TID [facility] Last Admin: 09/22/19 14:00 Dose: Not Given Diltiazem HCl 125 mg/ Sodium (Chloride) 125 mls @ 5 mls/hr IVPB TITR [facility]; Protocol Last Admin: 09/22/19 13:27 Dose: 5 mg/hr, 5 mls/hr Piperacillin Sod/Tazobactam (Sod 3.375 gm/ Dextrose) 50 mls @ 100 mls/hr IVPB Q8H-IV [facility]; Protocol Last Admin: 09/22/19 17:33 Dose: 100 mls/hr Insulin Aspart (Novolog Vial Sliding Scale -) 1 vial SQ ACHS [facility]; Protocol Last Admin: 09/22/19 17:33 Dose: 8 units Lidocaine (Lidoderm Patch -) 1 patch TP DAILY [facility] Methylprednisolone Sodium Succinate (Solu-Medrol -) 40 mg IVPB Q8H-IV [facility] Last Admin: 09/22/19 17:33 Dose: 40 mg Metoprolol Tartrate (Lopressor -) 25 mg PO BID [facility] Miscellaneous (Lidoderm Patch Removal) 1 each MC DAILY@2200 [facility] Morphine Sulfate (Morphine Sulfate) 4 mg IVPUSH Q4H PRN PRN Reason: PAIN LEVEL 7 - 10 Multivitamins/Minerals/Vitamin C (Tab-A-Vit -) 1 tab PO DAILY [facility] Mupirocin (Bactroban Ointment (For Decolonization) -) 1 applic NS BID [facility] Stop: 09/27/19 21:59 Oxycodone HCl (Roxicodone -) 5 mg PO Q4H PRN PRN Reason: PAIN LEVEL 4 - 6 Polyethylene Glycol (Miralax (For Daily Use) -) 17 gm PO BID [facility] Polysaccharide Iron Complex (Niferex-150 -) 150 mg PO DAILY [facility] Tamsulosin HCl (Flomax -) 0.4 mg PO DAILY@0830 [facility] - Objective Vital Signs: Vital Signs Temperature 98.1 F 09/22/19 16:15 Pulse Rate 88 09/22/19 16:15 Respiratory Rate 22 H 09/22/19 16:15 Blood Pressure 88/56 L 09/22/19 16:15 O2 Sat by Pulse Oximetry (%) 95 09/22/19 16:18 Constitutional: Yes: Well Nourished, No Distress Eyes: Yes: Conjunctiva Clear, EOM Intact HENT: Yes: Atraumatic, Normocephalic Neck: Yes: Supple, Trachea Midline Cardiovascular: Yes: Regular Rate and Rhythm. No: Murmur Respiratory: Yes: CTA Bilaterally, On BiPap Gastrointestinal: Yes: Normal Bowel Sounds, Abdomen, Obese. No: Tenderness Neurological: Yes: Alert, Oriented Psychiatric: Yes: Other (sad, tearful) Labs: CBC, BMP 09/22/19 07:50 09/22/19 07:50 INR, PTT INR 3.09 (0.83-1.09) H 09/20/19 22:24 Impression/Plan Impression/Plan: Mr. Peguero is a 78y/o male who presents from [facility] with SOB and arthralgias. Pt was discharged on 09/17 after tx for proteus UTI and LLL pneumonia. #pneumonia CT showed ateclectasis bilaterally, new on right side compared to previous imaging -Zosyn 3.375mg Q8H day 2 -MRSA screen pending #polyarticular arthralgia 2/2 gout Left knee aspirate positive for RBCs and uric crystals. Elevated CRP 41.6 and ESR >140. -continue IV solu-medrol #r/o urinary retention urine cx negative Visit type - Emergency Visit Emergency Visit: Yes ED Registration Date: 09/21/19 Care time: The patient presented to the Emergency Department on the above date and was hospitalized for further evaluation of their emergent condition. - New Patient This patient is new to me today: No - Critical Care Critical Care patient: Yes Total Critical Care Time (in minutes): 35 Critical Care Statement: The care of this patient involved high complexity decision making to prevent further life threatening deterioration of the patient 's condition and/or to evaluate & treat vital organ system(s) failure or risk of failure. - Discharge Referral Referred to [facility] Med P.C.: No ATTENDING PHYSICIAN STATEMENT I saw and evaluated the patient. I reviewed the resident's note and discussed the case with the resident. I agree with the resident's findings and plan as documented. SUBJECTIVE: OBJECTIVE: ASSESSMENT AND PLAN:
[2019-09-22] MEDS: MUPIROCIN 2% TOPICAL OINTMENT FOR DECOLONIZATION NS SCH (21:37)
[2019-09-22] MEDS: LIDOCAINE PATCH REMOVAL MC SCH (21:43)
[2019-09-22] MEDS: ATORVASTATIN CA 40 MG TABLET (FP) PO SCH (21:43)
[2019-09-22] MEDS: POLYETHYLENE GLYCOL 3350 119 GM BTL PO SCH (21:45)
[2019-09-22] MEDS ORDERED: LIDOCAINE PATCH REMOVAL MC SCH (22:00)
[2019-09-22] MEDS ORDERED: DOCUSATE SODIUM 100 MG CAPSULE (FP) PO SCH (22:00)
[2019-09-22 22:28] LABS: BASO % 0.2 % (0-2.0); HEMATOCRIT 26.2 % (35.4-49); HEMOGLOBIN 7.9 GM/dL (11.7-16.9); MCH 29.8 pg (25.7-33.7); MCHC 30.2 g/dl (32.0-35.9); MEAN CELL VOLUME 98.7 fl (80-96); MEAN PLT VOLUME 8.2 fl (7.5-11.1); NEUT % 94.8 % (42.8-82.8); PLATELET COUNT 315 K/MM3 (134-434); RBC 2.65 M/mm3 (4.00-5.60); RDW 20.4 % (11.9-15.9); WHITE BLOOD COUNT 15.6 K/mm3 (4.0-10.0)
[2019-09-22] MEDS: CHLORHEXIDINE GLUCONATE 4% CLEANSER FOR DECOLONIZATION TP SCH (23:00)
[2019-09-22 23:45] LABS: ANISOCYTOSIS 2+; MACROCYTOSIS 0; PLATELET ESTIMATE NORMAL
[2019-09-23] MEDS ORDERED: PIPERACILLIN/TAZOBACTAM 3.375 GM VIAL IVPB ONE ×3 (01:41→17:12)
[2019-09-23] MEDS ORDERED: DEXTROSE 5%-WATER - 50 ML IVPB ONE ×3 (01:41→17:12)
[2019-09-23] MEDS: PIPERACILLIN/TAZOB 3.375 GM 3.375 GM in DEXTROSE 5%-WATER - 50 ML IVPB SCH ×3 (01:48→17:13)
[2019-09-23] MEDS: methylPREDNISolone NA SUCC 40 MG/1 ML VIAL IVPB SCH ×3 (01:49→17:14)
[2019-09-23] MEDS: GABAPENTIN 300 MG CAPSULE (FP) PO SCH ×3 (06:09→21:54)
[2019-09-23] MEDS: INSULIN SLIDING SCALE (NOVOLOG) 1 VIAL SQ SCH ×4 (06:09→21:58)
[2019-09-23 06:40] LABS: BASO % 0.1 % (0-2.0); HEMATOCRIT 25.3 % (35.4-49); HEMOGLOBIN 7.9 GM/dL (11.7-16.9); LYMPH % 2.9 % (8-40); MCHC 31.2 g/dl (32.0-35.9); MEAN CELL VOLUME 95.9 fl (80-96); MEAN PLT VOLUME 7.9 fl (7.5-11.1); MONO % 2.8 % (3.8-10.2); NEUT % 94.2 % (42.8-82.8); PLATELET COUNT 342 K/MM3 (134-434); RBC 2.63 M/mm3 (4.00-5.60); RDW 20.1 % (11.9-15.9); WHITE BLOOD COUNT 13.7 K/mm3 (4.0-10.0)
[2019-09-23 06:49] LABS: ALBUMIN 2.2 g/dl (3.4-5.0); BILIRUBIN,TOTAL 1.2 mg/dL (0.2-1); BLOOD UREA NITROGEN 74.3 mg/dL (7-18); CREATININE 1.6 mg/dL (0.55-1.3); POTASSIUM 4.4 mmol/L (3.5-5.1)
[2019-09-23] MEDS: dilTIAZem HCL 30 MG TABLET (FP) PO SCH ×3 (08:34→17:14)
[2019-09-23] MEDS: TAMSULOSIN HCL 0.4 MG CAP PO SCH (08:35)
--- NOTE | 2019-09-23 09:11 | PN ---
Progress Note (short form) - Note Progress Note: awake and alert bipap overnight he is alert joint pain much improved but is still present Vital Signs Period Temp Pulse Resp BP Sys/Enamorado Pulse Ox Last 24 Hr 97.6 F-98.1 F 73-142 14-31 87-112/54-81 95-99 cor-rrr lungs decreased bs at bases abd soft, RUQ discomfort to palpation joint swelling wrists, knees present ext no edema CBC, BMP 09/23/19 05:30 09/23/19 06:00 Microbiology 09/21/19 00:00 Blood - Peripheral Venous Blood Culture - Preliminary NO GROWTH OBTAINED AFTER 48 HOURS, INCUBATION TO CONTINUE FOR 3 DAYS. 09/21/19 00:00 Blood - Peripheral Venous Blood Culture - Preliminary NO GROWTH OBTAINED AFTER 48 HOURS, INCUBATION TO CONTINUE FOR 3 DAYS. 09/21/19 18:00 Synovial Fluid - Knee Gram Stain - Final 09/21/19 00:28 Urine - Urine - Catheterized Urine Culture - Final NO GROWTH OBTAINED synovial fluid +urate crystals Active Medications Acetaminophen (Tylenol -) 650 mg PO Q6H PRN PRN Reason: FEVER OR PAIN LEVEL 1 - 3 Amlodipine Besylate (Norvasc -) 5 mg PO DAILY [facility] Apixaban (Eliquis -) 5 mg PO BID [facility] Last Admin: 09/22/19 21:42 Dose: 5 mg Aspirin (Ecotrin -) 81 mg PO DAILY [facility] Atorvastatin Calcium (Lipitor -) 40 mg PO HS [facility] Last Admin: 09/22/19 21:43 Dose: 40 mg Chlorhexidine Gluconate (Hibiclens For Decolonization -) 1 applic TP HS [facility] Last Admin: 09/22/19 23:00 Dose: 1 applic Diltiazem HCl (Cardizem -) 30 mg PO Q6HPO [facility] Last Admin: 09/23/19 08:34 Dose: 30 mg Docusate Sodium (Colace -) 300 mg PO HS [facility] Last Admin: 09/22/19 21:43 Dose: 300 mg Duloxetine HCl (Cymbalta -) 20 mg PO DAILY [facility] Gabapentin (Neurontin -) 300 mg PO TID [facility] Last Admin: 09/23/19 06:09 Dose: 300 mg Diltiazem HCl 125 mg/ Sodium (Chloride) 125 mls @ 5 mls/hr IVPB TITR [facility]; Protocol Last Titration: 09/22/19 19:30 Dose: 0 mg/hr, 0 mls/hr Piperacillin Sod/Tazobactam (Sod 3.375 gm/ Dextrose) 50 mls @ 100 mls/hr IVPB Q8H-IV [facility]; Protocol Last Admin: 09/23/19 01:48 Dose: 100 mls/hr Insulin Aspart (Novolog Vial Sliding Scale -) 1 vial SQ ACHS [facility]; Protocol Last Admin: 09/23/19 06:09 Dose: 4 units Lidocaine (Lidoderm Patch -) 1 patch TP DAILY [facility] Methylprednisolone Sodium Succinate (Solu-Medrol -) 40 mg IVPB Q8H-IV [facility] Last Admin: 09/23/19 01:49 Dose: 40 mg Metoprolol Tartrate (Lopressor -) 25 mg PO BID [facility] Last Admin: 09/22/19 21:42 Dose: 25 mg Miscellaneous (Lidoderm Patch Removal) 1 each MC DAILY@2200 [facility] Last Admin: 09/22/19 21:43 Dose: 1 each Morphine Sulfate (Morphine Sulfate) 4 mg IVPUSH Q4H PRN PRN Reason: PAIN LEVEL 7 - 10 Multivitamins/Minerals/Vitamin C (Tab-A-Vit -) 1 tab PO DAILY [facility] Mupirocin (Bactroban Ointment (For Decolonization) -) 1 applic NS BID [facility] Stop: 09/27/19 21:59 Last Admin: 09/22/19 21:37 Dose: 1 applic Oxycodone HCl (Roxicodone -) 5 mg PO Q4H PRN PRN Reason: PAIN LEVEL 4 - 6 Polyethylene Glycol (Miralax (For Daily Use) -) 17 gm PO BID [facility] Last Admin: 09/22/19 21:45 Dose: 17 grams Polysaccharide Iron Complex (Niferex-150 -) 150 mg PO DAILY [facility] Tamsulosin HCl (Flomax -) 0.4 mg PO DAILY@0830 [facility] Last Admin: 09/23/19 08:35 Dose: 0.4 mg a/p afib- management per icu/cardiology on zosyn for pneumonia, vancomycin trough 16 this am, will redose, f/u cxray, f /u MRSA screen gouty polyarticular arthritis- improved on steroids anemia- s/p transfusion ele-renal sono ordered intermittenr RUQ pain- gallbladder ultrasound
[2019-09-23] MEDS: DULoxetine HCL 20 MG CAPSULE.DR PO SCH (09:12)
[2019-09-23] MEDS: METOPROLOL TARTRATE 25 MG TABLET (FP) PO SCH ×2 (09:12→21:54)
[2019-09-23] MEDS: amLODIPine BESYLATE 5 MG TABLET (FP) PO SCH (09:12)
[2019-09-23] MEDS: MULTIVITAMINS (DAILY MVI) TABLET (FP) PO SCH (09:12)
[2019-09-23] MEDS: APIXABAN 5 MG TABLET PO SCH ×2 (09:13→21:53)
[2019-09-23] MEDS: LIDOCAINE 5% TOPICAL PATCH TP SCH (09:14)
[2019-09-23] MEDS: ASPIRIN COATED 81 MG TABLET.EC PO SCH (09:16)
[2019-09-23] MEDS ORDERED: LISINOPRIL 5 MG TABLET (FP) PO SCH (10:00)
[2019-09-23] MEDS ORDERED: IRON POLYSACCHARIDES 150 MG CAPSULE PO SCH (10:00)
[2019-09-23 10:28] LABS: ANISOCYTOSIS 2+; MACROCYTOSIS 1+; PLATELET ESTIMATE NORMAL
[2019-09-23] MEDS: POLYETHYLENE GLYCOL 3350 119 GM BTL PO SCH ×2 (10:45→21:55)
--- NOTE | 2019-09-23 10:52 | PN ---
Teaching Attending Note Name of Resident: Rich Regan ATTENDING PHYSICIAN STATEMENT I saw and evaluated the patient. I reviewed the resident's note and discussed the case with the resident. I agree with the resident's findings and plan as documented. SUBJECTIVE: Patient seen and examined in the ICU. Awake and alert. Generalized malaise and fatigue. Breathing feels a little better. Some cough. No CP. AFib rate is better controlled. Intake & Output 09/20/19 09/21/19 09/22/19 09/23/19 23:59 23:59 23:59 23:59 Intake Total 400 1240 305 Output Total 400 Balance 400 840 305 Weight 215 lb 223 lb 4 oz 220 lb 14.451 oz Last Vital Signs Temp Pulse Resp BP Pulse Ox 97.6 F 81 17 112/72 99 09/23/19 02:00 09/23/19 06:00 09/23/19 06:00 09/23/19 06:00 09/23/19 04:26 Active Medications Acetaminophen (Tylenol -) 650 mg PO Q6H PRN PRN Reason: FEVER OR PAIN LEVEL 1 - 3 Amlodipine Besylate (Norvasc -) 5 mg PO DAILY [facility] Last Admin: 09/23/19 09:12 Dose: 5 mg Apixaban (Eliquis -) 5 mg PO BID [facility] Last Admin: 09/23/19 09:13 Dose: 5 mg Aspirin (Ecotrin -) 81 mg PO DAILY [facility] Last Admin: 09/23/19 09:16 Dose: 81 mg Atorvastatin Calcium (Lipitor -) 40 mg PO [facility] Last Admin: 09/22/19 21:43 Dose: 40 mg Chlorhexidine Gluconate (Hibiclens For Decolonization -) 1 applic TP [facility] Last Admin: 09/22/19 23:00 Dose: 1 applic Diltiazem HCl (Cardizem -) 30 mg PO Q6HPO [facility] Last Admin: 09/23/19 08:34 Dose: 30 mg Docusate Sodium (Colace -) 300 mg PO [facility] Last Admin: 09/22/19 21:43 Dose: 300 mg Duloxetine HCl (Cymbalta -) 20 mg PO DAILY [facility] Last Admin: 09/23/19 09:12 Dose: 20 mg Gabapentin (Neurontin -) 300 mg PO TID [facility] Last Admin: 09/23/19 06:09 Dose: 300 mg Diltiazem HCl 125 mg/ Sodium (Chloride) 125 mls @ 5 mls/hr IVPB TITR [facility]; Protocol Last Titration: 09/22/19 19:30 Dose: 0 mg/hr, 0 mls/hr Piperacillin Sod/Tazobactam (Sod 3.375 gm/ Dextrose) 50 mls @ 100 mls/hr IVPB Q8H-IV [facility]; Protocol Last Admin: 09/23/19 09:14 Dose: 100 mls/hr Vancomycin HCl (Vancomycin (Pre-Docked)) 1,000 mg in 250 mls @ 166.667 mls/hr IVPB ONCE ONE; Protocol Stop: 09/23/19 13:29 Insulin Aspart (Novolog Vial Sliding Scale -) 1 vial SQ ACHS [facility]; Protocol Last Admin: 09/23/19 06:09 Dose: 4 units Lidocaine (Lidoderm Patch -) 1 patch TP DAILY [facility] Last Admin: 09/23/19 09:14 Dose: 1 patch Methylprednisolone Sodium Succinate (Solu-Medrol -) 40 mg IVPB Q8H-IV [facility] Last Admin: 09/23/19 09:14 Dose: 40 mg Metoprolol Tartrate (Lopressor -) 25 mg PO BID [facility] Last Admin: 09/23/19 09:12 Dose: 25 mg Miscellaneous (Lidoderm Patch Removal) 1 each MC DAILY@2200 [facility] Last Admin: 09/22/19 21:43 Dose: 1 each Morphine Sulfate (Morphine Sulfate) 4 mg IVPUSH Q4H PRN PRN Reason: PAIN LEVEL 7 - 10 Multivitamins/Minerals/Vitamin C (Tab-A-Vit -) 1 tab PO DAILY [facility] Last Admin: 09/23/19 09:12 Dose: 1 tab Mupirocin (Bactroban Ointment (For Decolonization) -) 1 applic NS BID [facility] Stop: 09/27/19 21:59 Last Admin: 09/22/19 21:37 Dose: 1 applic Oxycodone HCl (Roxicodone -) 5 mg PO Q4H PRN PRN Reason: PAIN LEVEL 4 - 6 Polyethylene Glycol (Miralax (For Daily Use) -) 17 gm PO BID [facility] Last Admin: 09/23/19 10:45 Dose: 17 grams Polysaccharide Iron Complex (Niferex-150 -) 150 mg PO DAILY [facility] Last Admin: 09/23/19 10:42 Dose: 150 mg Tamsulosin HCl (Flomax -) 0.4 mg PO DAILY@0830 [facility] Last Admin: 09/23/19 08:35 Dose: 0.4 mg Gen: Awake and alert, appears mildly uncomfortable Heart: tachycardic, irregular Lung: Bibasilar rhonchi, no wheeze Abd: soft, nontender Ext: + edema Laboratory Results - last 24 hr 09/20/19 09/22/19 09/22/19 22:24 07:50 09:34 WBC RBC Hgb Hct MCV MCH MCHC RDW Plt Count MPV Absolute Neuts (auto) Neutrophils % Neutrophils % (Manual) 98.0 H Band Neutrophils % 0.0 Lymphocytes % Lymphocytes % (Manual) 1.0 L Monocytes % Monocytes % (Manual) 1 L Eosinophils % Eosinophils % (Manual) 0.0 D Basophils % Basophils % (Manual) 0.0 Myelocytes % (Man) 0 D Promyelocytes % (Man) 0 Blast Cells % (Manual) 0 Nucleated RBC % Metamyelocytes 0 Hypochromia 0 Platelet Estimate Normal Platelet Comment Present Polychromasia 1+ Poikilocytosis 0 Anisocytosis 1+ Microcytosis Macrocytosis Fragmented RBCs 1+ D-Dimer Sodium Potassium Chloride Carbon Dioxide Anion Gap BUN Creatinine Est GFR (CKD-EPI)AfAm Est GFR (CKD-EPI)NonAf POC Glucometer Random Glucose Calcium Total Bilirubin AST ALT Alkaline Phosphatase Troponin I 0.03 Total Protein Albumin Ur Random Creatinine U Random Total Protein Ur Random Sodium Ur Random Urea Nitrogn Random Vancomycin Blood Type O POSITIVE Antibody Screen Negative Crossmatch See Detail 09/22/19 09/22/19 09/22/19 11:25 17:32 19:45 WBC RBC Hgb Hct MCV MCH MCHC RDW Plt Count MPV Absolute Neuts (auto) Neutrophils % Neutrophils % (Manual) Band Neutrophils % Lymphocytes % Lymphocytes % (Manual) Monocytes % Monocytes % (Manual) Eosinophils % Eosinophils % (Manual) Basophils % Basophils % (Manual) Myelocytes % (Man) Promyelocytes % (Man) Blast Cells % (Manual) Nucleated RBC % Metamyelocytes Hypochromia Platelet Estimate Platelet Comment Polychromasia Poikilocytosis Anisocytosis Microcytosis Macrocytosis Fragmented RBCs D-Dimer 2322 H Sodium Potassium Chloride Carbon Dioxide Anion Gap BUN Creatinine Est GFR (CKD-EPI)AfAm Est GFR (CKD-EPI)NonAf POC Glucometer 314 Random Glucose Calcium Total Bilirubin AST ALT Alkaline Phosphatase Troponin I Total Protein Albumin Ur Random Creatinine 100.0 U Random Total Protein Ur Random Sodium Ur Random Urea Nitrogn Random Vancomycin Blood Type Antibody Screen Crossmatch 09/22/19 09/22/19 09/22/19 19:45 19:45 19:45 WBC RBC Hgb Hct MCV MCH MCHC RDW Plt Count MPV Absolute Neuts (auto) Neutrophils % Neutrophils % (Manual) Band Neutrophils % Lymphocytes % Lymphocytes % (Manual) Monocytes % Monocytes % (Manual) Eosinophils % Eosinophils % (Manual) Basophils % Basophils % (Manual) Myelocytes % (Man) Promyelocytes % (Man) Blast Cells % (Manual) Nucleated RBC % Metamyelocytes Hypochromia Platelet Estimate Platelet Comment Polychromasia Poikilocytosis Anisocytosis Microcytosis Macrocytosis Fragmented RBCs D-Dimer Sodium Potassium Chloride Carbon Dioxide Anion Gap BUN Creatinine Est GFR (CKD-EPI)AfAm Est GFR (CKD-EPI)NonAf POC Glucometer Random Glucose Calcium Total Bilirubin AST ALT Alkaline Phosphatase Troponin I Total Protein Albumin Ur Random Creatinine U Random Total Protein 174.7 H Ur Random Sodium 9 L Ur Random Urea Nitrogn 747 Random Vancomycin Blood Type Antibody Screen Crossmatch 09/22/19 09/22/19 09/23/19 22:00 22:19 05:30 WBC 15.6 H RBC 2.65 L Hgb 7.9 L Hct 26.2 L MCV 98.7 H MCH 29.8 MCHC 30.2 L RDW 20.4 H Plt Count 315 MPV 8.2 Absolute Neuts (auto) 14.8 H Neutrophils % 94.8 H Neutrophils % (Manual) 93.0 H Band Neutrophils % 0.0 Lymphocytes % 2.0 L Lymphocytes % (Manual) 5.0 L D Monocytes % 3.0 L Monocytes % (Manual) 2 L D Eosinophils % 0.0 Eosinophils % (Manual) 0.0 Basophils % 0.2 Basophils % (Manual) 0.0 Myelocytes % (Man) 0 Promyelocytes % (Man) 0 Blast Cells % (Manual) 0 Nucleated RBC % 0 Metamyelocytes 0 Hypochromia 2+ Platelet Estimate Normal Platelet Comment Polychromasia 1+ Poikilocytosis 3+ Anisocytosis 2+ Microcytosis 1+ Macrocytosis 0 Fragmented RBCs D-Dimer Sodium Potassium Chloride Carbon Dioxide Anion Gap BUN Creatinine Est GFR (CKD-EPI)AfAm Est GFR (CKD-EPI)NonAf POC Glucometer 275 Random Glucose Calcium Total Bilirubin AST ALT Alkaline Phosphatase Troponin I Total Protein Albumin Ur Random Creatinine U Random Total Protein Ur Random Sodium Ur Random Urea Nitrogn Random Vancomycin 16.1 L Blood Type Antibody Screen Crossmatch 09/23/19 09/23/19 09/23/19 05:30 05:50 06:00 WBC 13.7 H RBC 2.63 L Hgb 7.9 L Hct 25.3 L MCV 95.9 MCH 30.0 MCHC 31.2 L RDW 20.1 H Plt Count 342 MPV 7.9 Absolute Neuts (auto) 12.9 H Neutrophils % 94.2 H Neutrophils % (Manual) 94.9 H Band Neutrophils % 0.0 Lymphocytes % 2.9 L D Lymphocytes % (Manual) 3.1 L D Monocytes % 2.8 L Monocytes % (Manual) 2 L Eosinophils % 0.0 Eosinophils % (Manual) 0.0 Basophils % 0.1 Basophils % (Manual) 0.0 Myelocytes % (Man) 0 Promyelocytes % (Man) 0 Blast Cells % (Manual) 0 Nucleated RBC % 0 Metamyelocytes 0 Hypochromia 1+ Platelet Estimate Normal Platelet Comment Polychromasia Poikilocytosis Anisocytosis 2+ Microcytosis Macrocytosis 1+ Fragmented RBCs D-Dimer Sodium 137 Potassium 4.4 Chloride 101 Carbon Dioxide 29 Anion Gap 7 L BUN 74.3 H Creatinine 1.6 H Est GFR (CKD-EPI)AfAm 47.46 Est GFR (CKD-EPI)NonAf 40.95 POC Glucometer 256 Random Glucose 277 H Calcium 9.0 Total Bilirubin 1.2 H AST 12 L ALT 29 Alkaline Phosphatase 98 Troponin I Total Protein 6.0 L Albumin 2.2 L Ur Random Creatinine U Random Total Protein Ur Random Sodium Ur Random Urea Nitrogn Random Vancomycin Blood Type Antibody Screen Crossmatch ASSESSMENT AND PLAN: Acute Hypoxic and Hypercapneic Respiratory Failure Acute Pulmonary Edema Acute on Chronic Diastolic Heart Failure Atrial Fibrillation with RVR r/o Pneumonia UTI Acute Kidney Injury COPD Paget's Disease DM Anemia - Rate control control meds Cardiology - Lasix as tolerated - BiPAP as needed to assist in work of breathing - O2 to keep SpO2 >90% - antibiotics per ID - Medrol - Inhaled bronchodilators - Continue anticoagulation - hold antihypertensives for now aside from AV paola blockers - Cardiac Telemetry monitoring Dr Salgado
[2019-09-23] MEDS: MUPIROCIN 2% TOPICAL OINTMENT FOR DECOLONIZATION NS SCH ×2 (11:00→21:50)
[2019-09-23] MEDS ORDERED: INSULIN (LEVEMIR) 100 UNITS/ML UNITS SQ SCH (11:30)
[2019-09-23] MEDS ORDERED: VANCOMYCIN 1 GRAM (PRE-DOCKED) 1,000 MG/250 ML BAG IVPB ONE (12:00)
--- NOTE | 2019-09-23 12:26 | PN ---
Progress Note, Physician Chief Complaint: patient seen and examined in iCU awake alert no CP feeling better afib better conroled off cardizem drip - Current Medication List Current Medications: Active Medications Acetaminophen (Tylenol -) 650 mg PO Q6H PRN PRN Reason: FEVER OR PAIN LEVEL 1 - 3 Amlodipine Besylate (Norvasc -) 5 mg PO DAILY [facility] Last Admin: 09/23/19 09:12 Dose: 5 mg Apixaban (Eliquis -) 5 mg PO BID [facility] Last Admin: 09/23/19 09:13 Dose: 5 mg Aspirin (Ecotrin -) 81 mg PO DAILY [facility] Last Admin: 09/23/19 09:16 Dose: 81 mg Atorvastatin Calcium (Lipitor -) 40 mg PO HS [facility] Last Admin: 09/22/19 21:43 Dose: 40 mg Chlorhexidine Gluconate (Hibiclens For Decolonization -) 1 applic TP HS [facility] Last Admin: 09/22/19 23:00 Dose: 1 applic Diltiazem HCl (Cardizem -) 30 mg PO Q6HPO [facility] Last Admin: 09/23/19 08:34 Dose: 30 mg Duloxetine HCl (Cymbalta -) 20 mg PO DAILY [facility] Last Admin: 09/23/19 09:12 Dose: 20 mg Gabapentin (Neurontin -) 300 mg PO TID [facility] Last Admin: 09/23/19 06:09 Dose: 300 mg Piperacillin Sod/Tazobactam (Sod 3.375 gm/ Dextrose) 50 mls @ 100 mls/hr IVPB Q8H-IV [facility]; Protocol Last Admin: 09/23/19 09:14 Dose: 100 mls/hr Vancomycin HCl (Vancomycin (Pre-Docked)) 1,000 mg in 250 mls @ 166.667 mls/hr IVPB ONCE ONE; Protocol Stop: 09/23/19 13:29 Insulin Aspart (Novolog Vial Sliding Scale -) 1 vial SQ ACHS [facility]; Protocol Last Admin: 09/23/19 06:09 Dose: 4 units Insulin Detemir (Levemir Vial) 10 units SQ 0700 [facility] Lidocaine (Lidoderm Patch -) 1 patch TP DAILY [facility] Last Admin: 09/23/19 09:14 Dose: 1 patch Methylprednisolone Sodium Succinate (Solu-Medrol -) 40 mg IVPB Q8H-IV [facility] Last Admin: 09/23/19 09:14 Dose: 40 mg Metoprolol Tartrate (Lopressor -) 25 mg PO BID [facility] Last Admin: 09/23/19 09:12 Dose: 25 mg Miscellaneous (Lidoderm Patch Removal) 1 each MC DAILY@2200 [facility] Last Admin: 09/22/19 21:43 Dose: 1 each Morphine Sulfate (Morphine Sulfate) 4 mg IVPUSH Q4H PRN PRN Reason: PAIN LEVEL 7 - 10 Multivitamins/Minerals/Vitamin C (Tab-A-Vit -) 1 tab PO DAILY [facility] Last Admin: 09/23/19 09:12 Dose: 1 tab Mupirocin (Bactroban Ointment (For Decolonization) -) 1 applic NS BID [facility] Stop: 09/27/19 21:59 Last Admin: 09/22/19 21:37 Dose: 1 applic Oxycodone HCl (Roxicodone -) 5 mg PO Q4H PRN PRN Reason: PAIN LEVEL 4 - 6 Polyethylene Glycol (Miralax (For Daily Use) -) 17 gm PO BID [facility] Last Admin: 09/23/19 10:45 Dose: 17 grams Polysaccharide Iron Complex (Niferex-150 -) 150 mg PO DAILY [facility] Last Admin: 09/23/19 10:42 Dose: 150 mg Senna/Docusate Sodium (Pericolace -) 1 tablet PO BID [facility] Tamsulosin HCl (Flomax -) 0.4 mg PO DAILY@0830 [facility] Last Admin: 09/23/19 08:35 Dose: 0.4 mg - Objective Vital Signs: Vital Signs Temperature 97.3 F L 09/23/19 10:00 Pulse Rate 81 09/23/19 10:00 Respiratory Rate 24 H 09/23/19 10:00 Blood Pressure 114/75 09/23/19 10:00 O2 Sat by Pulse Oximetry (%) 99 09/23/19 09:00 Constitutional: Yes: Calm Cardiovascular: Yes: Pulse Irregular, S1, S2 Respiratory: Yes: CTA Bilaterally, Diminished (at bases) Gastrointestinal: Yes: Normal Bowel Sounds, Soft Neurological: Yes: Alert, Oriented Labs: CBC, BMP 09/23/19 05:30 09/23/19 06:00 INR, PTT INR 3.09 (0.83-1.09) H 09/20/19 22:24 Problem List - Problems (1) Acute on chronic respiratory failure with hypoxia and hypercapnia Assessment/Plan: bipap at night nasal canula in day bronchodilators Code(s): J96.21 - ACUTE AND CHRONIC RESPIRATORY FAILURE WITH HYPOXIA; J96.22 - ACUTE AND CHRONIC RESPIRATORY FAILURE WITH HYPERCAPNIA (2) Atrial fibrillation Assessment/Plan: po cardizem eliquis and metorpolol Code(s): I48.91 - UNSPECIFIED ATRIAL FIBRILLATION (3) Pneumonia Assessment/Plan: on zosyn Microbiology 09/21/19 18:40 Nares - Mrsa Screen - Right MRSA Screen - Final NO MRSA ISOLATED 09/21/19 18:40 Nares - Mrsa Screen - Left MRSA Screen - Final NO MRSA ISOLATED 08/31/19 12:39 Urine - Urine Iqbal Urine Culture - Final Proteus Mirabilis Code(s): J18.9 - PNEUMONIA, UNSPECIFIED ORGANISM Qualifiers: Pneumonia type: due to unspecified organism Laterality: left Lung location: lower lobe of lung Qualified Code(s): J18.9 - Pneumonia, unspecified organism (4) Polyarthralgia Assessment/Plan: gouty arthitis on medrol joint fluid with crystals Code(s): M25.50 - PAIN IN UNSPECIFIED JOINT
[2019-09-23] MEDS: SENNOSIDES/DOCUSATE COMBO (SENNA PLUS) TABLET (UD) PO SCH ×2 (12:39→21:54)
--- NOTE | 2019-09-23 13:22 | EKG ---
Test Reason : Blood Pressure : / mmHG Vent. Rate : 087 BPM Atrial Rate : 087 BPM P-R Int : 094 ms QRS Dur : 176 ms QT Int : 436 ms P-R-T Axes : 023 -84 -19 degrees QTc Int : 524 ms SINUS RHYTHM WITH SHORT [place] WITH PREMATURE ATRIAL COMPLEXES WITH ABERRANT CONDUCTION RIGHT BUNDLE BRANCH BLOCK LEFT ANTERIOR FASCICULAR BLOCK BIFASCICULAR BLOCK SEPTAL INFARCT (CITED ON OR BEFORE 01-SEP-2019) INFERIOR INFARCT , AGE UNDETERMINED ABNORMAL ECG Confirmed by DINORA LUIS MD ([id number]) on 09/23/2019 1:22:37 PM Referred By: Confirmed By:DINORA LUIS MD
[2019-09-23] MEDS: INSULIN (LEVEMIR) 100 UNITS/ML UNITS SQ SCH (13:24)
--- NOTE | 2019-09-23 13:32 | PN ---
Physical Exam: SUBJECTIVE: Patient seen and examined. Yesterday rapid response called for SVT and hypotension requiring cardizem drip and ICU transfer. No acute events overnight. Complains of RUQ discomfort OBJECTIVE: Vital Signs Period Temp Pulse Resp BP Sys/[place] Pulse Ox Last 24 Hr 97.3 F-98.1 F 73-89 14-31 88-118/56-81 94-99 GENERAL: Awake, alert, and fully oriented, in no acute distress. LUNGS: Crackles L base. No wheezing, rales No accessory muscle use HEART: Regular rate and irregular rhythm, normal S1 and S2 without murmur, rub or gallop. ABDOMEN: mild discomfort to palpation RUQ. Distended. Soft, normoactive bowel sounds, no masses EXTREMITIES: warm, No calf tenderness. +1 pitting edema prasad NEUROLOGICAL: AOx3. Normal speech Laboratory Results - last 24 hr 09/20/19 09/22/19 09/22/19 22:24 17:32 19:45 WBC RBC Hgb Hct MCV MCH MCHC RDW Plt Count MPV Absolute Neuts (auto) Neutrophils % Neutrophils % (Manual) Band Neutrophils % Lymphocytes % Lymphocytes % (Manual) Monocytes % Monocytes % (Manual) Eosinophils % Eosinophils % (Manual) Basophils % Basophils % (Manual) Myelocytes % (Man) Promyelocytes % (Man) Blast Cells % (Manual) Nucleated RBC % Metamyelocytes Hypochromia Platelet Estimate Polychromasia Poikilocytosis Anisocytosis Microcytosis Macrocytosis Sodium Potassium Chloride Carbon Dioxide Anion Gap BUN Creatinine Est GFR (CKD-EPI)AfAm Est GFR (CKD-EPI)NonAf POC Glucometer 314 Random Glucose Calcium Total Bilirubin AST ALT Alkaline Phosphatase Total Protein Albumin Ur Random Creatinine 100.0 U Random Total Protein Ur Random Sodium Ur Random Urea Nitrogn Random Vancomycin Blood Type O POSITIVE Antibody Screen Negative Crossmatch See Detail 09/22/19 09/22/19 09/22/19 19:45 19:45 19:45 WBC RBC Hgb Hct MCV MCH MCHC RDW Plt Count MPV Absolute Neuts (auto) Neutrophils % Neutrophils % (Manual) Band Neutrophils % Lymphocytes % Lymphocytes % (Manual) Monocytes % Monocytes % (Manual) Eosinophils % Eosinophils % (Manual) Basophils % Basophils % (Manual) Myelocytes % (Man) Promyelocytes % (Man) Blast Cells % (Manual) Nucleated RBC % Metamyelocytes Hypochromia Platelet Estimate Polychromasia Poikilocytosis Anisocytosis Microcytosis Macrocytosis Sodium Potassium Chloride Carbon Dioxide Anion Gap BUN Creatinine Est GFR (CKD-EPI)AfAm Est GFR (CKD-EPI)NonAf POC Glucometer Random Glucose Calcium Total Bilirubin AST ALT Alkaline Phosphatase Total Protein Albumin Ur Random Creatinine U Random Total Protein 174.7 H Ur Random Sodium 9 L Ur Random Urea Nitrogn 747 Random Vancomycin Blood Type Antibody Screen Crossmatch 09/22/19 09/22/19 09/23/19 22:00 22:19 05:30 WBC 15.6 H RBC 2.65 L Hgb 7.9 L Hct 26.2 L MCV 98.7 H MCH 29.8 MCHC 30.2 L RDW 20.4 H Plt Count 315 MPV 8.2 Absolute Neuts (auto) 14.8 H Neutrophils % 94.8 H Neutrophils % (Manual) 93.0 H Band Neutrophils % 0.0 Lymphocytes % 2.0 L Lymphocytes % (Manual) 5.0 L D Monocytes % 3.0 L Monocytes % (Manual) 2 L D Eosinophils % 0.0 Eosinophils % (Manual) 0.0 Basophils % 0.2 Basophils % (Manual) 0.0 Myelocytes % (Man) 0 Promyelocytes % (Man) 0 Blast Cells % (Manual) 0 Nucleated RBC % 0 Metamyelocytes 0 Hypochromia 2+ Platelet Estimate Normal Polychromasia 1+ Poikilocytosis 3+ Anisocytosis 2+ Microcytosis 1+ Macrocytosis 0 Sodium Potassium Chloride Carbon Dioxide Anion Gap BUN Creatinine Est GFR (CKD-EPI)AfAm Est GFR (CKD-EPI)NonAf POC Glucometer 275 Random Glucose Calcium Total Bilirubin AST ALT Alkaline Phosphatase Total Protein Albumin Ur Random Creatinine U Random Total Protein Ur Random Sodium Ur Random Urea Nitrogn Random Vancomycin 16.1 L Blood Type Antibody Screen Crossmatch 09/23/19 09/23/19 09/23/19 05:30 05:50 06:00 WBC 13.7 H RBC 2.63 L Hgb 7.9 L Hct 25.3 L MCV 95.9 MCH 30.0 MCHC 31.2 L RDW 20.1 H Plt Count 342 MPV 7.9 Absolute Neuts (auto) 12.9 H Neutrophils % 94.2 H Neutrophils % (Manual) 94.9 H Band Neutrophils % 0.0 Lymphocytes % 2.9 L D Lymphocytes % (Manual) 3.1 L D Monocytes % 2.8 L Monocytes % (Manual) 2 L Eosinophils % 0.0 Eosinophils % (Manual) 0.0 Basophils % 0.1 Basophils % (Manual) 0.0 Myelocytes % (Man) 0 Promyelocytes % (Man) 0 Blast Cells % (Manual) 0 Nucleated RBC % 0 Metamyelocytes 0 Hypochromia 1+ Platelet Estimate Normal Polychromasia Poikilocytosis Anisocytosis 2+ Microcytosis Macrocytosis 1+ Sodium 137 Potassium 4.4 Chloride 101 Carbon Dioxide 29 Anion Gap 7 L BUN 74.3 H Creatinine 1.6 H Est GFR (CKD-EPI)AfAm 47.46 Est GFR (CKD-EPI)NonAf 40.95 POC Glucometer 256 Random Glucose 277 H Calcium 9.0 Total Bilirubin 1.2 H AST 12 L ALT 29 Alkaline Phosphatase 98 Total Protein 6.0 L Albumin 2.2 L Ur Random Creatinine U Random Total Protein Ur Random Sodium Ur Random Urea Nitrogn Random Vancomycin Blood Type Antibody Screen Crossmatch 09/23/19 12:22 WBC RBC Hgb Hct MCV MCH MCHC RDW Plt Count MPV Absolute Neuts (auto) Neutrophils % Neutrophils % (Manual) Band Neutrophils % Lymphocytes % Lymphocytes % (Manual) Monocytes % Monocytes % (Manual) Eosinophils % Eosinophils % (Manual) Basophils % Basophils % (Manual) Myelocytes % (Man) Promyelocytes % (Man) Blast Cells % (Manual) Nucleated RBC % Metamyelocytes Hypochromia Platelet Estimate Polychromasia Poikilocytosis Anisocytosis Microcytosis Macrocytosis Sodium Potassium Chloride Carbon Dioxide Anion Gap BUN Creatinine Est GFR (CKD-EPI)AfAm Est GFR (CKD-EPI)NonAf POC Glucometer 259 Random Glucose Calcium Total Bilirubin AST ALT Alkaline Phosphatase Total Protein Albumin Ur Random Creatinine U Random Total Protein Ur Random Sodium Ur Random Urea Nitrogn Random Vancomycin Blood Type Antibody Screen Crossmatch Active Medications Generic Name Dose Route Start Last Admin Trade Name Freq PRN Reason Stop Dose Admin Acetaminophen 650 mg 09/22/19 13:32 Tylenol - PO Q6H PRN FEVER OR PAIN LEVEL 1 - 3 Amlodipine Besylate 5 mg 09/23/19 10:00 09/23/19 09:12 Norvasc - PO 5 mg DAILY [facility] Administration Apixaban 5 mg 09/22/19 22:00 09/23/19 09:13 Eliquis - PO 5 mg BID [facility] Administration Aspirin 81 mg 09/23/19 10:00 09/23/19 09:16 Ecotrin - PO 81 mg DAILY [facility] Administration Atorvastatin Calcium 40 mg 09/22/19 22:00 09/22/19 21:43 Lipitor - PO 40 mg HS [facility] Administration Chlorhexidine Gluconate 1 applic 09/22/19 22:00 09/22/19 23:00 Hibiclens For Decolonization - TP 1 applic HS [facility] Administration Diltiazem HCl 30 mg 09/23/19 08:15 09/23/19 12:40 Cardizem - PO 30 mg Q6HPO [facility] Administration Duloxetine HCl 20 mg 09/23/19 10:00 09/23/19 09:12 Cymbalta - PO 20 mg DAILY [facility] Administration Gabapentin 300 mg 09/22/19 14:00 09/23/19 13:30 Neurontin - PO 300 mg TID [facility] Administration Piperacillin Sod/Tazobactam 50 mls @ 100 mls/hr 09/22/19 18:00 09/23/19 09:14 Sod 3.375 gm/ Dextrose IVPB 100 mls/hr Q8H-IV [facility] Administration Protocol Insulin Aspart 1 vial 09/22/19 16:30 09/23/19 12:37 Novolog Vial Sliding Scale - SQ 6 units ACHS [facility] Administration Protocol Insulin Detemir 10 units 09/23/19 11:30 09/23/19 13:24 Levemir Vial SQ 10 units 0700 [facility] Administration Lidocaine 1 patch 09/23/19 10:00 09/23/19 09:14 Lidoderm Patch - TP 1 patch DAILY [facility] Administration Methylprednisolone Sodium Succinate 40 mg 09/22/19 18:00 09/23/19 09:14 Solu-Medrol - IVPB 40 mg Q8H-IV [facility] Administration Metoprolol Tartrate 25 mg 09/22/19 22:00 09/23/19 09:12 Lopressor - PO 25 mg BID [facility] Administration Miscellaneous 1 each 09/22/19 22:00 09/22/19 21:43 Lidoderm Patch Removal MC 1 each DAILY@2200 [facility] Administration Morphine Sulfate 4 mg 09/22/19 13:32 Morphine Sulfate IVPUSH Q4H PRN PAIN LEVEL 7 - 10 Multivitamins/Minerals/Vitamin C 1 tab 09/23/19 10:00 09/23/19 09:12 Tab-A-Vit - PO 1 tab DAILY [facility] Administration Mupirocin 1 applic 09/22/19 22:00 09/23/19 11:00 Bactroban Ointment (For Decolonization) - NS 09/27/19 21:59 1 applic BID [facility] Administration Oxycodone HCl 5 mg 09/22/19 13:32 Roxicodone - PO Q4H PRN PAIN LEVEL 4 - 6 Polyethylene Glycol 17 gm 09/22/19 22:00 09/23/19 10:45 Miralax (For Daily Use) - PO 17 grams BID [facility] Administration Polysaccharide Iron Complex 150 mg 09/23/19 10:00 09/23/19 10:42 Niferex-150 - PO 150 mg DAILY [facility] Administration Senna/Docusate Sodium 1 tablet 09/23/19 11:30 09/23/19 12:39 Pericolace - PO 1 tablet BID [facility] Administration Tamsulosin HCl 0.4 mg 09/23/19 08:30 09/23/19 08:35 Flomax - PO 0.4 mg DAILY@0830 [facility] Administration ASSESSMENT/PLAN: 78 y/o/m with a PMHx of COPD, HTN, HLD, CAD (s/p Stent), DM, CHF (pEF), Gout, Afib (on Eliquis), Anemia, Paget's disease, Prostate Ca. He was admitted for worsening PNA failing outpatient therapy and diffuse joint pain. Transferred to ICU for SVT and hypotension #Neuro - AOx3, monitor - pain control with oxycodone, morphine, gabapentin - continue duloxetine #Cardio - hx of afib, HTN, HLD - switched cardizem drip to 30 cardizem q6h PO for rate control - rapid response called 09/22 for SVT and hypotension, given adenosine, amiodarone, lopressor, subsequently transferred to ICU - continue home Metoprolol, Norvasc, ASA, Amlodipine, atorvastatin - DVT ppx #Respiratory - on 3L NC, nighttime BiPAP - CXR 09/22 shows L lower lung consolidation, effusion, cardiomegaly #GI - total bili 1.2, RUQ discomfort - RUQ US 09/23 showed distended gallbadder 9cm, multiple gallstones w wall thickening 9mm, trace pericholecystic fluid, normal CBD concerning for acute cholecystitis - continue miralax, senna - NPO for possible surgery - appreciate GI, surgery recs #Heme - stable Hgb 7.9 - given 1u pRBC on 09/22 for Hgb 7.2, responded up to 7.9 - Heme onc on board #Renal - BEKA 2/2 UTI, obstruction - Cr 1.5 to 1.6 - Renal and bladder US 09/23 showed distended bladder w 355cc volume without wall thickening, prostate gland 4.8cc volume - placed thomas for retention - appreciate renal recs #ID - downtrending WBC 15 to 13.7 - continue zosyn for PNA, UTI - blood/urine/MRSA negative - appreciate ID recs #Rheum - Systemic inflammatory arthritis of unknown etiology - Left knee aspirated, WBC 61, positive crystals, RBC [address]40 - Continue Solumedrol - Lyme studies pending # - hx of prostate cancer - continue tamsulosin #Endo - hx DM - added levemir for better BG control - continue ISS #Prophylaxis - Eliquis - no GI ppx #FEN - no fluids - no electrolyte disturbances - NPO #Disposition - transfer to tele Visit type - Emergency Visit Emergency Visit: Yes ED Registration Date: 09/21/19 Care time: The patient presented to the Emergency Department on the above date and was hospitalized for further evaluation of their emergent condition. - New Patient This patient is new to me today: Yes Date on this admission: 09/23/19 - Critical Care Critical Care patient: Yes Total Critical Care Time (in minutes): 40 Critical Care Statement: The care of this patient involved high complexity decision making to prevent further life threatening deterioration of the patient 's condition and/or to evaluate & treat vital organ system(s) failure or risk of failure. ATTENDING PHYSICIAN STATEMENT I saw and evaluated the patient. I reviewed the resident's note and discussed the case with the resident. I agree with the resident's findings and plan as documented. SUBJECTIVE: OBJECTIVE: ASSESSMENT AND PLAN:
[2019-09-23 15:44] VITALS: BMI 30.7
--- NOTE | 2019-09-23 16:02 | PN ---
Progress Note (short form) - Note Progress Note: Renal follow up for BEKA Pt seen and examined in the ICU awake and alert states he does not feel well but is not specific on BIPAP pain is improved Vital Signs Temperature 97.3 F L 09/23/19 14:00 Pulse Rate 80 09/23/19 14:00 Respiratory Rate 20 09/23/19 14:00 Blood Pressure 106/56 L 09/23/19 14:00 O2 Sat by Pulse Oximetry (%) 99 09/23/19 09:00 Intake & Output 09/20/19 09/21/19 09/22/19 09/23/19 23:59 23:59 23:59 23:59 Intake Total 400 1240 405 Output Total 400 450 Balance 400 840 -45 Weight 97.522 kg 101.264 kg 99.79 kg Mild distress from pain neck supple, no JVD RRR, no M/R CTA (anterior examination) soft, obese, NT/ND no bladder distension + edema in LE + left ankle pain CBC, BMP 09/23/19 05:30 09/23/19 06:00 Current Medications Acetaminophen (Tylenol -) 650 mg PO Q6H PRN PRN Reason: FEVER OR PAIN LEVEL 1 - 3 Amlodipine Besylate (Norvasc -) 5 mg PO DAILY [facility] Last Admin: 09/23/19 09:12 Dose: 5 mg Apixaban (Eliquis -) 5 mg PO BID [facility] Last Admin: 09/23/19 09:13 Dose: 5 mg Aspirin (Ecotrin -) 81 mg PO DAILY [facility] Last Admin: 09/23/19 09:16 Dose: 81 mg Atorvastatin Calcium (Lipitor -) 40 mg PO HS [facility] Last Admin: 09/22/19 21:43 Dose: 40 mg Chlorhexidine Gluconate (Hibiclens For Decolonization -) 1 applic TP HS [facility] Last Admin: 09/22/19 23:00 Dose: 1 applic Diltiazem HCl (Cardizem -) 30 mg PO Q6HPO [facility] Last Admin: 09/23/19 12:40 Dose: 30 mg Duloxetine HCl (Cymbalta -) 20 mg PO DAILY [facility] Last Admin: 09/23/19 09:12 Dose: 20 mg Gabapentin (Neurontin -) 300 mg PO TID [facility] Last Admin: 09/23/19 13:30 Dose: 300 mg Piperacillin Sod/Tazobactam (Sod 3.375 gm/ Dextrose) 50 mls @ 100 mls/hr IVPB Q8H-IV [facility]; Protocol Last Admin: 09/23/19 09:14 Dose: 100 mls/hr Insulin Aspart (Novolog Vial Sliding Scale -) 1 vial SQ ACHS [facility]; Protocol Last Admin: 09/23/19 12:37 Dose: 6 units Insulin Detemir (Levemir Vial) 10 units SQ 0700 [facility] Last Admin: 09/23/19 13:24 Dose: 10 units Lidocaine (Lidoderm Patch -) 1 patch TP DAILY [facility] Last Admin: 09/23/19 09:14 Dose: 1 patch Methylprednisolone Sodium Succinate (Solu-Medrol -) 40 mg IVPB Q8H-IV [facility] Last Admin: 09/23/19 09:14 Dose: 40 mg Metoprolol Tartrate (Lopressor -) 25 mg PO BID [facility] Last Admin: 09/23/19 09:12 Dose: 25 mg Miscellaneous (Lidoderm Patch Removal) 1 each MC DAILY@2200 [facility] Last Admin: 09/22/19 21:43 Dose: 1 each Morphine Sulfate (Morphine Sulfate) 4 mg IVPUSH Q4H PRN PRN Reason: PAIN LEVEL 7 - 10 Multivitamins/Minerals/Vitamin C (Tab-A-Vit -) 1 tab PO DAILY [facility] Last Admin: 09/23/19 09:12 Dose: 1 tab Mupirocin (Bactroban Ointment (For Decolonization) -) 1 applic NS BID [facility] Stop: 09/27/19 21:59 Last Admin: 09/23/19 11:00 Dose: 1 applic Oxycodone HCl (Roxicodone -) 5 mg PO Q4H PRN PRN Reason: PAIN LEVEL 4 - 6 Polyethylene Glycol (Miralax (For Daily Use) -) 17 gm PO BID [facility] Last Admin: 09/23/19 10:45 Dose: 17 grams Polysaccharide Iron Complex (Niferex-150 -) 150 mg PO DAILY [facility] Last Admin: 09/23/19 10:42 Dose: 150 mg Senna/Docusate Sodium (Pericolace -) 1 tablet PO BID [facility] Last Admin: 09/23/19 12:39 Dose: 1 tablet Tamsulosin HCl (Flomax -) 0.4 mg PO DAILY@0830 [facility] Last Admin: 09/23/19 08:35 Dose: 0.4 mg 78 year old gentleman with history of CHF with reduced LVEF, Afib, Anemia and DM with recent admission for gross hematuria and BEKA now presents with diffuse body pain and joint pain with BEKA. 1. Acute kidney injury (differential: obstruvtive uropathy vs. normotensive ATN vs. volume depletion) 2. Joint pains 3. CHF with reduced LVEF 4. Leukocytosis 5. Anemia Renal function essentially unchanged Renal US without signs of obstruction Urine studies show Low FeNa indicating preserved tubular function Check CXR in AM, if no signs of congestion would give additional trial of IVF Hold ACEi for now given reduced eGFR Pain control w/o NSAIDs Trend renal function and electrolytes HR control per cardiology Transfuse as per ICU protocol Thank you Saul Diaz DO
--- NOTE | 2019-09-23 18:44 | CONSULT ---
Consult Consult Specialty:: Surgery Reason for Consultation:: r/o acute cholecystitis - History of Present Illness History of Present Illness: This is a 78 y/o man from [facility] with a PMHx of COPD (3L), HTN, HLD, CAD (s/p Stent), DM, CHF (pEF), Afib (on Eliquis), Anemia, Prostate Ca. Recent admission 08/31-09/17 for Hematuria, Urinary Retention, treated for LLL Pneumonia. Who presents to the ED for SOB. Pt was last seen at [facility] for hematuria, and was found to also have LLL pneumonia and bone scan concerning for Pagett's disease. Noted to have abdominal tenderness on this admission. US abd showed cholelithiasis with thickened GB wall and pericholecystic fluid - History Source History Provided By: Patient - Past Medical History Cardio/Vascular: Yes: AFIB, CAD, CHF (low normal LVEF on 02/25 ECHO), HTN, Hyperlipdemia, Pulmonary Hypertension Pulmonary: Yes: COPD, O2 Dependent, Other (pulmonary htn) Gastrointestinal: Yes: Other (colon polyps). No: Ascites Renal/: Yes: BPH, Other Psych: Yes: Depression (diagnosed 09/2019) Rheumatology: Yes: Gout Endocrine: Yes: Diabetes Mellitus - Past Surgical History Past Surgical History: Yes: Stent - Alcohol/Substance Use Hx Alcohol Use: No History of Substance Use: reports: None - Smoking History Smoking history: Never smoked Have you smoked in the past 12 months: No Aproximately how many cigarettes per day: 0 - Social History Usual Living Arrangement: Long-Term ADL: Support Services History of Recent Travel: No Home Medications - Allergies Allergies/Adverse Reactions: Allergies Allergy/AdvReac Type Severity Reaction Status Date / Time No Known Allergies Allergy Verified 09/20/19 22:46 - Home Medications Home Medications: Ambulatory Orders Alendronate Na [Fosamax (Weekly)] 70 mg PO WEEKLY 01/29/17 Atorvastatin Calcium 40 mg PO HS 01/29/17 Aspirin Coated [Ecotrin -] 81 mg PO DAILY tablet.ec 11/05/17 Amlodipine Besylate 5 mg PO DAILY 05/04/18 Acetaminophen [Tylenol .Regular Strength -] 650 mg PO Q6H PRN tablet 03/07/19 Apixaban [Eliquis -] 5 mg PO BID tablet 03/07/19 Insulin Sliding Scale [Novolog Vial Sliding Scale -] 1 vial SQ ACHS units 03/07 Docusate Sodium [Colace] 300 mg PO HS 06/23/19 Gabapentin 300 mg PO TID 06/23/19 Insulin Glargine,Hum.rec.anlog [Basaglar Kwikpen U-100] 20 unit SQ DAILY Polyethylene Glycol 3350 [Miralax 119 gm Btl -] 17 gm PO DAILY 06/23/19 Tamsulosin HCl [Flomax] 0.4 mg PO DAILY 06/23/19 Zinc Oxide 20% Topical Oint 1 appful DAILY PRN 06/23/19 Lidocaine 5% Patch [Lidoderm -] 1 patch TP DAILY patch 07/01/19 Melatonin 3 mg PO HS 08/31/19 Metoprolol Tartrate 25 mg PO BID 08/31/19 Multivitamin [Multiple Vitamins] 1 each PO DAILY 08/31/19 Albuterol 2.5/Ipratropium 0.5 [Duoneb -] 1 amp NEB RQID amp 09/17/19 Duloxetine HCl [Cymbalta -] 20 mg PO DAILY capsule. 09/17/19 Ferrous Sulfate [Feosol] 325 mg PO BID ud 09/17/19 Lisinopril [Prinivil] 2.5 mg PO DAILY tablet 09/17/19 Magnesium Hydrox 2400MG/30Ml [Milk of Magnesia -] 30 ml PO DAILY PRN cup Sennosides [Senna -] 2 tab PO HS PRN tablet 09/17/19 Sitagliptin Phosphate [Januvia -] 25 mg PO DAILY@0700 tab 09/17/19 Mag Hydrox/Al Hydrox/Simeth [Mylanta *Suspension*] 30 ml PO Q6H 09/21/19 Oxycodone HCl 10 mg PO Q8H PRN 09/21/19 Phenazopyridine HCl [Pyridium] 200 mg PO TID 09/21/19 Piperacillin/Tazob 3.375 gm [Zosyn 3.375GM Ivpb (Pre-Docked)] 3.375 gm IVPB Q8H 09/21/19 Potassium Chloride [K-Dur -] 40 meq PO DAILY 09/21/19 Silver Sulfadiazine 1% Top Cr [Silvadene -] 1 applic TP DAILY 11/13/19 predniSONE [Deltasone] 20 mg PO DAILY 09/21/19 Physical Exam Vital Signs: Vital Signs Temperature 97.5 F L 09/23/19 18:00 Pulse Rate 77 09/23/19 18:00 Respiratory Rate 20 09/23/19 16:00 Blood Pressure 119/72 09/23/19 18:00 O2 Sat by Pulse Oximetry (%) 96 09/23/19 16:04 Constitutional: Yes: No Distress Eyes: Yes: Conjunctiva Clear HENT: Yes: Normocephalic Neck: Yes: Supple Respiratory: Yes: CTA Bilaterally Gastrointestinal: Yes: Abdomen, Obese, Ascites (questionable), Tenderness ( diffuse on all quadrants) ...Rectal Exam: Yes: Deferred Labs: CBC, BMP 09/23/19 05:30 09/23/19 06:00 Imaging - Results Cat Scan: Report Reviewed, Image Reviewed Ultrasound: Report Reviewed, Image Reviewed MRI: Report Reviewed, Image Reviewed Problem List - Problems (1) Acute cholecystitis Assessment/Plan: by abdominal US, clinically unclear if patient has acute cholecystitis or symptomatic gallstones Will order HIDA scan to confirm diagnosis Patient is high risk surgical candidate Conservative management with IV antibiotics, low fat diet, and analgesics If patient's symptoms or condition worsen, may need percutaneous cholecystostomy by IR Recommend Ursodiol for market survey representative management of gallstone disease Code(s): K81.0 - ACUTE CHOLECYSTITIS
--- NOTE | 2019-09-23 19:22 | PN ---
Progress Note (short form) - Note Progress Note: Patient seen and examined on bipap at bed side c/o extremity weakness afvss Cor: RSR, No murmurs, No gallops Lungs: Clear to P&A Abd: Soft, Normal bowel sounds, No organomegaly Ext: motor strength 4/5 labs/meds reviewed a/p 78[facility] from [facility] with COPD, HTN, HLD, CAD, DM, CHF (pEF), Afib (on Eliquis), CKD, polyarticular arthritis--gout, ?Pagets disease hx prostate ca admitted with SOB.Being treated for CHF exacerbation/PNA. Also being evaluated for acute cholecystitis, HIDA scan pending. Hematology is consulted for anemia which appears to be chronic since at least 2017 with worsening this year and macrocytosis. Has mild neutrophilic leukocytosis and normal plt count. Ferritin >2000 (506 one month prior), iron sat 48% (12% one month prior). B12/folate normal. SPEP/FLC normal. BEV with faint IgG kappa. IgG normal. Suspect anemia of inflammation + CKD. h/o prostate cancer several yrs. ago per s/p brachytherapy h/o lupron was treated by dr. sky hernandez bone scan s/o pagets in sacrum/iliacs s/o pagets dating back to 2011 will request neuro consult given extremity weakness--? deconditioning check ldh/cpk/aldolase repeat ferritin
[2019-09-23] MEDS: ATORVASTATIN CA 40 MG TABLET (FP) PO SCH (21:54)
[2019-09-23] MEDS: CHLORHEXIDINE GLUCONATE 4% CLEANSER FOR DECOLONIZATION TP SCH (21:55)
[2019-09-23] MEDS: LIDOCAINE PATCH REMOVAL MC SCH (21:55)
[2019-09-24] MEDS ORDERED: DEXTROSE 5%-WATER - 50 ML IVPB ONE ×3 (01:06→17:31)
[2019-09-24] MEDS ORDERED: PIPERACILLIN/TAZOBACTAM 3.375 GM VIAL IVPB ONE ×3 (01:06→17:31)
[2019-09-24] MEDS: dilTIAZem HCL 30 MG TABLET (FP) PO SCH ×4 (01:20→17:45)
[2019-09-24] MEDS: PIPERACILLIN/TAZOB 3.375 GM 3.375 GM in DEXTROSE 5%-WATER - 50 ML IVPB SCH ×3 (01:20→17:45)
[2019-09-24] MEDS: methylPREDNISolone NA SUCC 40 MG/1 ML VIAL IVPB SCH ×3 (01:20→17:45)
[2019-09-24] MEDS: GABAPENTIN 300 MG CAPSULE (FP) PO SCH ×3 (05:32→22:15)
[2019-09-24] MEDS: INSULIN SLIDING SCALE (NOVOLOG) 1 VIAL SQ SCH ×4 (06:46→22:29)
[2019-09-24] MEDS: INSULIN (LEVEMIR) 100 UNITS/ML UNITS SQ SCH (06:46)
--- NOTE | 2019-09-24 07:13 | PN ---
Progress Note, Physician Chief Complaint: SOB UTI Anemia History of Present Illness: c/o generalized pain polyarticular arthritis with multiple joint swelling SOB on exertion Returned from ICU after episode of SVT's Now with possible cholecystitis HIDA scan pending - Current Medication List Current Medications: Active Medications Acetaminophen (Tylenol -) 650 mg PO Q6H PRN PRN Reason: FEVER OR PAIN LEVEL 1 - 3 Amlodipine Besylate (Norvasc -) 5 mg PO DAILY [facility] Last Admin: 09/23/19 09:12 Dose: 5 mg Apixaban (Eliquis -) 5 mg PO BID [facility] Last Admin: 09/23/19 21:53 Dose: 5 mg Aspirin (Ecotrin -) 81 mg PO DAILY [facility] Last Admin: 09/23/19 09:16 Dose: 81 mg Atorvastatin Calcium (Lipitor -) 40 mg PO HS [facility] Last Admin: 09/23/19 21:54 Dose: 40 mg Chlorhexidine Gluconate (Hibiclens For Decolonization -) 1 applic TP HS [facility] Last Admin: 09/23/19 21:55 Dose: Not Given Diltiazem HCl (Cardizem -) 30 mg PO Q6HPO [facility] Last Admin: 09/24/19 05:32 Dose: 30 mg Duloxetine HCl (Cymbalta -) 20 mg PO DAILY [facility] Last Admin: 09/23/19 09:12 Dose: 20 mg Gabapentin (Neurontin -) 300 mg PO TID [facility] Last Admin: 09/24/19 05:32 Dose: 300 mg Piperacillin Sod/Tazobactam (Sod 3.375 gm/ Dextrose) 50 mls @ 100 mls/hr IVPB Q8H-IV [facility]; Protocol Last Admin: 09/24/19 01:20 Dose: 100 mls/hr Insulin Aspart (Novolog Vial Sliding Scale -) 1 vial SQ ACHS [facility]; Protocol Last Admin: 09/24/19 06:46 Dose: 4 units Insulin Detemir (Levemir Vial) 10 units SQ 0700 [facility] Last Admin: 09/24/19 06:46 Dose: 10 units Lidocaine (Lidoderm Patch -) 1 patch TP DAILY [facility] Last Admin: 09/23/19 09:14 Dose: 1 patch Methylprednisolone Sodium Succinate (Solu-Medrol -) 40 mg IVPB Q8H-IV [facility] Last Admin: 09/24/19 01:20 Dose: 40 mg Metoprolol Tartrate (Lopressor -) 25 mg PO BID [facility] Last Admin: 09/23/19 21:54 Dose: 25 mg Miscellaneous (Lidoderm Patch Removal) 1 each MC DAILY@2200 [facility] Last Admin: 09/23/19 21:55 Dose: 1 each Morphine Sulfate (Morphine Sulfate) 4 mg IVPUSH Q4H PRN PRN Reason: PAIN LEVEL 7 - 10 Multivitamins/Minerals/Vitamin C (Tab-A-Vit -) 1 tab PO DAILY [facility] Last Admin: 09/23/19 09:12 Dose: 1 tab Mupirocin (Bactroban Ointment (For Decolonization) -) 1 applic NS BID [facility] Stop: 09/27/19 21:59 Last Admin: 09/23/19 21:50 Dose: Not Given Oxycodone HCl (Roxicodone -) 5 mg PO Q4H PRN PRN Reason: PAIN LEVEL 4 - 6 Polyethylene Glycol (Miralax (For Daily Use) -) 17 gm PO BID [facility] Last Admin: 09/23/19 21:55 Dose: 17 grams Senna/Docusate Sodium (Pericolace -) 1 tablet PO BID [facility] Last Admin: 09/23/19 21:54 Dose: 1 tablet Tamsulosin HCl (Flomax -) 0.4 mg PO DAILY@0830 [facility] Last Admin: 09/23/19 08:35 Dose: 0.4 mg Ursodiol (Actigal -) 300 mg PO BID [facility] - Objective Vital Signs: Vital Signs Temperature 98.4 F 09/24/19 05:00 Pulse Rate 82 09/24/19 05:00 Respiratory Rate 20 09/23/19 16:00 Blood Pressure 117/74 09/24/19 05:00 O2 Sat by Pulse Oximetry (%) 98 09/23/19 20:45 Constitutional: Yes: Well Nourished, No Distress, Calm Cardiovascular: Yes: Regular Rate and Rhythm Respiratory: Yes: Regular Gastrointestinal: Yes: Normal Bowel Sounds, Abdomen, Obese, Tenderness (diffuse) Genitourinary: Yes: Incontinence Musculoskeletal: Yes: Joint Swelling (multiple), Muscle Weakness Extremities: Yes: WNL Edema: No Peripheral Pulses WNL: Yes Neurological: Yes: Alert, Oriented Psychiatric: Yes: Alert, Oriented Labs: CBC, BMP 09/23/19 05:30 09/23/19 06:00 INR, PTT INR 3.09 (0.83-1.09) H 09/20/19 22:24 Problem List - Problems (1) Leukocytosis Assessment/Plan: -monitor trend -Seen by ID -Cultures: Microbiology 09/21/19 00:00 Blood - Peripheral Venous Blood Culture - Preliminary NO GROWTH OBTAINED AFTER 72 HOURS, INCUBATION TO CONTINUE FOR 2 DAYS. 09/21/19 00:00 Blood - Peripheral Venous Blood Culture - Preliminary NO GROWTH OBTAINED AFTER 72 HOURS, INCUBATION TO CONTINUE FOR 2 DAYS. 09/21/19 18:00 Synovial Fluid - Knee Gram Stain - Final 09/21/19 18:00 Synovial Fluid - Knee Body Fluid Culture - Preliminary NO AEROBIC GROWTH, 24 HRS 09/22/19 19:45 Urine For Antigen Detection Legionella Antigen - Final 09/22/19 19:45 Urine For Antigen Detection Streptococcus pneumoniae Antigen (M - Final 09/21/19 18:40 Nares - Mrsa Screen - Right MRSA Screen - Final NO MRSA ISOLATED 09/21/19 18:40 Nares - Mrsa Screen - Left MRSA Screen - Final NO MRSA ISOLATED 09/21/19 00:28 Urine - Urine - Catheterized Urine Culture - Final NO GROWTH OBTAINED -Tylenol for fever>100.0F -IV Zosyn Problems reviewed: Yes Code(s): D72.829 - ELEVATED WHITE BLOOD CELL COUNT, UNSPECIFIED Qualifiers: Leukocytosis type: unspecified Qualified Code(s): D72.829 - Elevated white blood cell count, unspecified (2) Paget's bone disease Assessment/Plan: -Hematology consult Problems reviewed: Yes Code(s): M88.9 - OSTEITIS DEFORMANS OF UNSPECIFIED BONE (3) Pneumonia Assessment/Plan: -CXR negative for infiltrates -Pulmonary consult -Bronchodilators -Nasal O2 to keep SpO2>90% -CT chest BLLL infiltrates -ID on board -On IV Zosyn -Legionella negative Problems reviewed: Yes Code(s): J18.9 - PNEUMONIA, UNSPECIFIED ORGANISM Qualifiers: Pneumonia type: due to unspecified organism Laterality: left Lung location: lower lobe of lung Qualified Code(s): J18.9 - Pneumonia, unspecified organism (4) BEKA (acute kidney injury) Assessment/Plan: -acute on chronic renal insufficiency -Nephrology consult -Monitor trend -Renal US without signs of obstruction Problems reviewed: Yes Code(s): N17.9 - ACUTE KIDNEY FAILURE, UNSPECIFIED (5) Anemia Assessment/Plan: -Chronic, multifactorial -Iron deficiency in the past -Iron levels high now, will hold iron supplement Problems reviewed: Yes Code(s): D64.9 - ANEMIA, UNSPECIFIED Qualifiers: Anemia type: iron deficiency (6) Atrial fibrillation Assessment/Plan: -paroxysmal -chronic -On eliquis 5 mg po bid Problems reviewed: Yes Code(s): I48.91 - UNSPECIFIED ATRIAL FIBRILLATION (7) BPH (benign prostatic hyperplasia) Assessment/Plan: -On tamsulosin -Seen by Dr Omar Friedman in the past Problems reviewed: Yes Code(s): N40.0 - BENIGN PROSTATIC HYPERPLASIA WITHOUT LOWER URINRY TRACT SYMP (8) Diabetes Assessment/Plan: -Last A1c at 6.4 -BGM AC HS because of medrol -Diabetic low sodium diet Problems reviewed: Yes Code(s): E11.9 - TYPE 2 DIABETES MELLITUS WITHOUT COMPLICATIONS Qualifiers: Diabetes mellitus type: other specified (including TAN) 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: unspecified senior care insulin use status Diabetes mellitus complication status: with other specified complication Qualified Code (s): E13.69 - Other specified diabetes mellitus with other specified complication (9) UTI (urinary tract infection) Assessment/Plan: -UA + nitrites -UC negative Problems reviewed: Yes Code(s): N39.0 - URINARY TRACT INFECTION, SITE NOT SPECIFIED (10) Polyarthralgia Assessment/Plan: -Rheumatology consult -Uric acid normal -ESR, CRP elevated -medrol IV Q8H -Acetaminophen 650 mg Q4H PRN for pain 1-3 or fever>100.0 F -Oxycodone 5 mg Q4H PRN for pain 4-6 -Morphine 2 mg q4h PRN for pain 7-10 -Miralax BID + colace 300 mg po HS for bowel regimen Problems reviewed: Yes Code(s): M25.50 - PAIN IN UNSPECIFIED JOINT (11) Acute cholecystitis Assessment/Plan: -Seen by Surgery -Awaiting HIDA Scan ordered yesterday Problems reviewed: Yes Code(s): K81.0 - ACUTE CHOLECYSTITIS (12) SVT (supraventricular tachycardia) Assessment/Plan: -rate controlled now -On Diltiazem -Tele monitoring Problems reviewed: Yes Code(s): I47.1 - SUPRAVENTRICULAR TACHYCARDIA Assessment/Plan see problem list
[2019-09-24 07:41] LABS: HEMATOCRIT 26.4 % (35.4-49); HEMOGLOBIN 8.3 GM/dL (11.7-16.9); MCH 30.3 pg (25.7-33.7); MCHC 31.5 g/dl (32.0-35.9); MEAN CELL VOLUME 96.4 fl (80-96); MEAN PLT VOLUME 7.9 fl (7.5-11.1); PLATELET COUNT 365 K/MM3 (134-434); RBC 2.74 M/mm3 (4.00-5.60); RDW 19.9 % (11.9-15.9); WHITE BLOOD COUNT 11.9 K/mm3 (4.0-10.0)
[2019-09-24 08:01] LABS: ALBUMIN 2.4 g/dl (3.4-5.0); BILIRUBIN,TOTAL 1.1 mg/dL (0.2-1); BLOOD UREA NITROGEN 78.9 mg/dL (7-18); CALCIUM 9.5 mg/dL (8.5-10.1); CREATININE 1.4 mg/dL (0.55-1.3); MAGNESIUM 3.2 mg/dL (1.8-2.4); PHOSPHOROUS 3.7 mg/dL (2.5-4.9); POTASSIUM 4.5 mmol/L (3.5-5.1); TOT PROT 6.3 g/dl (6.4-8.2)
--- NOTE | 2019-09-24 09:51 | PN ---
Progress Note, Physician History of Present Illness: pulmonary awake,on bipap,c/o sob - Current Medication List Current Medications: Active Medications Acetaminophen (Tylenol -) 650 mg PO Q6H PRN PRN Reason: FEVER OR PAIN LEVEL 1 - 3 Amlodipine Besylate (Norvasc -) 5 mg PO DAILY [facility] Last Admin: 09/23/19 09:12 Dose: 5 mg Apixaban (Eliquis -) 5 mg PO BID [facility] Last Admin: 09/23/19 21:53 Dose: 5 mg Aspirin (Ecotrin -) 81 mg PO DAILY [facility] Last Admin: 09/23/19 09:16 Dose: 81 mg Atorvastatin Calcium (Lipitor -) 40 mg PO HS [facility] Last Admin: 09/23/19 21:54 Dose: 40 mg Chlorhexidine Gluconate (Hibiclens For Decolonization -) 1 applic TP HS [facility] Last Admin: 09/23/19 21:55 Dose: Not Given Diltiazem HCl (Cardizem -) 30 mg PO Q6HPO [facility] Last Admin: 09/24/19 05:32 Dose: 30 mg Duloxetine HCl (Cymbalta -) 20 mg PO DAILY [facility] Last Admin: 09/23/19 09:12 Dose: 20 mg Gabapentin (Neurontin -) 300 mg PO TID [facility] Last Admin: 09/24/19 05:32 Dose: 300 mg Piperacillin Sod/Tazobactam (Sod 3.375 gm/ Dextrose) 50 mls @ 100 mls/hr IVPB Q8H-IV [facility]; Protocol Last Admin: 09/24/19 01:20 Dose: 100 mls/hr Insulin Aspart (Novolog Vial Sliding Scale -) 1 vial SQ ACHS [facility]; Protocol Last Admin: 09/24/19 06:46 Dose: 4 units Insulin Detemir (Levemir Vial) 10 units SQ 0700 [facility] Last Admin: 09/24/19 06:46 Dose: 10 units Lidocaine (Lidoderm Patch -) 1 patch TP DAILY [facility] Last Admin: 09/23/19 09:14 Dose: 1 patch Methylprednisolone Sodium Succinate (Solu-Medrol -) 40 mg IVPB Q8H-IV [facility] Last Admin: 09/24/19 01:20 Dose: 40 mg Metoprolol Tartrate (Lopressor -) 25 mg PO BID [facility] Last Admin: 09/23/19 21:54 Dose: 25 mg Miscellaneous (Lidoderm Patch Removal) 1 each MC DAILY@2200 [facility] Last Admin: 09/23/19 21:55 Dose: 1 each Morphine Sulfate (Morphine Sulfate) 4 mg IVPUSH Q4H PRN PRN Reason: PAIN LEVEL 7 - 10 Multivitamins/Minerals/Vitamin C (Tab-A-Vit -) 1 tab PO DAILY [facility] Last Admin: 09/23/19 09:12 Dose: 1 tab Mupirocin (Bactroban Ointment (For Decolonization) -) 1 applic NS BID [facility] Stop: 09/27/19 21:59 Last Admin: 09/23/19 21:50 Dose: Not Given Oxycodone HCl (Roxicodone -) 5 mg PO Q4H PRN PRN Reason: PAIN LEVEL 4 - 6 Polyethylene Glycol (Miralax (For Daily Use) -) 17 gm PO BID [facility] Last Admin: 09/23/19 21:55 Dose: 17 grams Senna/Docusate Sodium (Pericolace -) 1 tablet PO BID [facility] Last Admin: 09/23/19 21:54 Dose: 1 tablet Tamsulosin HCl (Flomax -) 0.4 mg PO DAILY@0830 [facility] Last Admin: 09/23/19 08:35 Dose: 0.4 mg Ursodiol (Actigal -) 300 mg PO BID [facility] - Objective Vital Signs: Vital Signs Temperature 98.4 F 09/24/19 05:00 Pulse Rate 82 09/24/19 05:00 Respiratory Rate 20 09/23/19 16:00 Blood Pressure 117/74 09/24/19 05:00 O2 Sat by Pulse Oximetry (%) 98 09/23/19 20:45 Constitutional: Yes: Well Nourished, Calm Eyes: Yes: WNL HENT: Yes: WNL Neck: Yes: WNL Cardiovascular: Yes: Pulse Irregular, S1, S2 Respiratory: Yes: Diminished, Rales (bibasilar rales) Gastrointestinal: Yes: Normal Bowel Sounds, Soft Extremities: Yes: WNL Edema: Yes Labs: CBC, BMP 09/24/19 06:35 09/24/19 06:35 INR, PTT INR 3.09 (0.83-1.09) H 09/20/19 22:24 Problem List - Problems (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 - OSTEITIS DEFORMANS OF UNSPECIFIED BONE (2) Pneumonia Code(s): J18.9 - PNEUMONIA, UNSPECIFIED ORGANISM Qualifiers: Pneumonia type: due to unspecified organism Laterality: left Lung location: lower lobe of lung Qualified Code(s): J18.9 - Pneumonia, unspecified organism (3) BEKA (acute kidney injury) Code(s): N17.9 - ACUTE KIDNEY FAILURE, UNSPECIFIED (4) Atrial fibrillation Code(s): I48.91 - UNSPECIFIED ATRIAL FIBRILLATION (5) CHF (congestive heart failure) Code(s): I50.9 - HEART FAILURE, UNSPECIFIED Qualifiers: Heart failure type: unspecified Heart failure chronicity: chronic Qualified Code(s): I50.9 - Heart failure, unspecified (6) Diabetes Code(s): E11.9 - TYPE 2 DIABETES MELLITUS WITHOUT COMPLICATIONS Qualifiers: Diabetes mellitus type: other specified (including TAN) Diabetes mellitus [facility] insulin use: unspecified [facility] insulin use status Diabetes mellitus complication status: with other specified complication Qualified Code (s): E13.69 - Other specified diabetes mellitus with other specified complication (7) Extremity pain Code(s): M79.609 - PAIN IN UNSPECIFIED LIMB (8) Shortness of breath Code(s): R06.02 - SHORTNESS OF BREATH (9) Symptomatic anemia Code(s): D64.9 - ANEMIA, UNSPECIFIED (10) Systolic CHF Code(s): I50.20 - UNSPECIFIED SYSTOLIC (CONGESTIVE) HEART FAILURE (11) Acute on chronic respiratory failure with hypoxia and hypercapnia Code(s): J96.21 - ACUTE AND CHRONIC RESPIRATORY FAILURE WITH HYPOXIA; J96.22 - ACUTE AND CHRONIC RESPIRATORY FAILURE WITH HYPERCAPNIA Assessment/Plan ASSESSMENT AND PLAN: Acute Hypoxic and Hypercapneic Respiratory Failure Acute Pulmonary Edema Acute on Chronic Diastolic Heart Failure Atrial Fibrillation with RVR r/o Pneumonia UTI Acute Kidney Injury COPD Paget's Disease DM Anemia - Rate control as per Cardiology - Lasix as tolerated - BiPAP as needed to assist in work of breathing - O2 to keep SpO2 >90% - antibiotics per ID - Medrol - Inhaled bronchodilators - Continue anticoagulation - hold antihypertensives for now aside from AV paola blockers - ABG - f/u chest- xrays DR CARPENTER
[2019-09-24 10:48] LABS: ADD RBC MORPHOLOGY YES; SMUDGE CELLS 3
[2019-09-24 10:49] LABS: ANISOCYTOSIS 2+; MACROCYTOSIS 1+; PLATELET ESTIMATE NORMAL
[2019-09-24] MEDS: LIDOCAINE 5% TOPICAL PATCH TP SCH (10:49)
[2019-09-24] MEDS: APIXABAN 5 MG TABLET PO SCH ×2 (10:49→22:15)
[2019-09-24] MEDS: MULTIVITAMINS (DAILY MVI) TABLET (FP) PO SCH (10:49)
[2019-09-24] MEDS: DULoxetine HCL 20 MG CAPSULE.DR PO SCH (10:50)
[2019-09-24] MEDS: SENNOSIDES/DOCUSATE COMBO (SENNA PLUS) TABLET (UD) PO SCH ×2 (10:50→22:15)
[2019-09-24] MEDS: amLODIPine BESYLATE 5 MG TABLET (FP) PO SCH (10:50)
[2019-09-24] MEDS: ASPIRIN COATED 81 MG TABLET.EC PO SCH (10:50)
[2019-09-24] MEDS: METOPROLOL TARTRATE 25 MG TABLET (FP) PO SCH ×2 (10:50→22:15)
[2019-09-24] MEDS: TAMSULOSIN HCL 0.4 MG CAP PO SCH (10:50)
[2019-09-24 10:51] LABS: ANISOCYTOSIS 2+; MACROCYTOSIS 1+; PLATELET ESTIMATE NORMAL; SMUDGE CELLS 3
[2019-09-24 10:57] LABS: ARTERIAL BLD GAS O2 SATURATION 95.9 % (95-98); ARTERIAL BLOOD GAS BASE EXCESS 3.9 meq/l (-2-2); ARTERIAL BLOOD GAS PCO2 48.4 mmHg (35-45); ARTERIAL BLOOD GAS pH 7.39 (7.35-7.45)
[2019-09-24 11:01] LABS: ALLENS TEST POSITIVE
[2019-09-24] MEDS ORDERED: BENZOCAINE/MENTH/CETYLPYRD CL 1 EACH LOZENGE MM PRN (11:03)
[2019-09-24] MEDS: MUPIROCIN 2% TOPICAL OINTMENT FOR DECOLONIZATION NS SCH ×2 (11:29→22:15)
[2019-09-24] MEDS: POLYETHYLENE GLYCOL 3350 119 GM BTL PO SCH ×2 (11:42→22:16)
[2019-09-24] MEDS: URSODIOL 300 MG CAPSULE PO SCH ×2 (11:42→22:15)
--- NOTE | 2019-09-24 14:05 | PN ---
Progress Note (short form) - Note Progress Note: awake and alert c/o dry mouth on bipap Vital Signs Period Temp Pulse Resp BP Sys/[place] Pulse Ox Last 24 Hr 97.3 F-98.5 F 73-87 20 109-120/65-79 96-98 cor-rrr llungs decreased bs at bases no thrush or pharyngitis abd soft,still some RUQ tenderness to palpation ext less joint swelling CBC, BMP 09/24/19 06:35 09/24/19 06:35 Microbiology 09/21/19 18:00 Synovial Fluid - Knee Gram Stain - Final 09/21/19 18:00 Synovial Fluid - Knee Body Fluid Culture - Final NO GROWTH OF AEROBIC ORGANISMS AFTER 48 HOURS INCUBATION 09/21/19 18:00 Synovial Fluid - Knee Anaerobic Culture - Final NO ANAEROBES WERE ISOLATED 09/21/19 00:00 Blood - Peripheral Venous Blood Culture - Preliminary NO GROWTH OBTAINED AFTER 72 HOURS, INCUBATION TO CONTINUE FOR 2 DAYS. 09/21/19 00:00 Blood - Peripheral Venous Blood Culture - Preliminary NO GROWTH OBTAINED AFTER 72 HOURS, INCUBATION TO CONTINUE FOR 2 DAYS. 09/22/19 19:45 Urine For Antigen Detection Legionella Antigen - Final 09/22/19 19:45 Urine For Antigen Detection Streptococcus pneumoniae Antigen (M - Final 09/21/19 18:40 Nares - Mrsa Screen - Right MRSA Screen - Final NO MRSA ISOLATED 09/21/19 18:40 Nares - Mrsa Screen - Left MRSA Screen - Final NO MRSA ISOLATED 09/21/19 00:28 Urine - Urine - Catheterized Urine Culture - Final NO GROWTH OBTAINED synovial fluid +urate crystals Current Medications Acetaminophen (Tylenol -) 650 mg PO Q6H PRN PRN Reason: FEVER OR PAIN LEVEL 1 - 3 Amlodipine Besylate (Norvasc -) 5 mg PO DAILY [facility] Last Admin: 09/24/19 10:50 Dose: 5 mg Apixaban (Eliquis -) 5 mg PO BID [facility] Last Admin: 09/24/19 10:49 Dose: 5 mg Aspirin (Ecotrin -) 81 mg PO DAILY [facility] Last Admin: 09/24/19 10:50 Dose: 81 mg Atorvastatin Calcium (Lipitor -) 40 mg PO HS [facility] Last Admin: 09/23/19 21:54 Dose: 40 mg Benzocaine/Menthol (Cepacol Lozenge -) 1 each MM PRN PRN PRN Reason: SORE THROAT Last Admin: 09/24/19 11:43 Dose: 1 each Chlorhexidine Gluconate (Hibiclens For Decolonization -) 1 applic TP HS [facility] Last Admin: 09/23/19 21:55 Dose: Not Given Diltiazem HCl (Cardizem -) 30 mg PO Q6HPO [facility] Last Admin: 09/24/19 11:42 Dose: 30 mg Duloxetine HCl (Cymbalta -) 20 mg PO DAILY [facility] Last Admin: 09/24/19 10:50 Dose: 20 mg Gabapentin (Neurontin -) 300 mg PO TID [facility] Last Admin: 09/24/19 05:32 Dose: 300 mg Piperacillin Sod/Tazobactam (Sod 3.375 gm/ Dextrose) 50 mls @ 100 mls/hr IVPB Q8H-IV [facility]; Protocol Last Admin: 09/24/19 11:42 Dose: 100 mls/hr Insulin Aspart (Novolog Vial Sliding Scale -) 1 vial SQ ACHS [facility]; Protocol Last Admin: 09/24/19 11:43 Dose: 4 units Insulin Detemir (Levemir Vial) 10 units SQ 0700 [facility] Last Admin: 09/24/19 06:46 Dose: 10 units Lidocaine (Lidoderm Patch -) 1 patch TP DAILY [facility] Last Admin: 09/24/19 10:49 Dose: 1 patch Methylprednisolone Sodium Succinate (Solu-Medrol -) 40 mg IVPB Q8H-IV [facility] Last Admin: 09/24/19 11:42 Dose: 40 mg Metoprolol Tartrate (Lopressor -) 25 mg PO BID [facility] Last Admin: 09/24/19 10:50 Dose: 25 mg Miscellaneous (Lidoderm Patch Removal) 1 each MC DAILY@2200 [facility] Last Admin: 09/23/19 21:55 Dose: 1 each Morphine Sulfate (Morphine Sulfate) 4 mg IVPUSH Q4H PRN PRN Reason: PAIN LEVEL 7 - 10 Multivitamins/Minerals/Vitamin C (Tab-A-Vit -) 1 tab PO DAILY [facility] Last Admin: 09/24/19 10:49 Dose: 1 tab Mupirocin (Bactroban Ointment (For Decolonization) -) 1 applic NS BID [facility] Stop: 09/27/19 21:59 Last Admin: 11/16/19 11:29 Dose: Not Given Oxycodone HCl (Roxicodone -) 5 mg PO Q4H PRN PRN Reason: PAIN LEVEL 4 - 6 Polyethylene Glycol (Miralax (For Daily Use) -) 17 gm PO BID [facility] Last Admin: 09/24/19 11:42 Dose: 17 grams Senna/Docusate Sodium (Pericolace -) 1 tablet PO BID [facility] Last Admin: 09/24/19 10:50 Dose: 1 tablet Tamsulosin HCl (Flomax -) 0.4 mg PO DAILY@0830 [facility] Last Admin: 09/24/19 10:50 Dose: 0.4 mg Ursodiol (Actigal -) 300 mg PO BID [facility] Last Admin: 09/24/19 11:42 Dose: 300 mg a/p afib- management per cardiology on zosyn for pneumonia., ?cholycystitis- hida ordered by surgery gouty polyarticular arthritis- improved on steroids anemia- s/p transfusion ele-no hydronephrosis mrsa screen negative, no further vancomycin
--- NOTE | 2019-09-24 15:51 | PN ---
Progress Note, Physician Chief Complaint: abdominal pain History of Present Illness: c/o buttock pain has mild diffuse abdominal pain - Current Medication List Current Medications: Active Medications Acetaminophen (Tylenol -) 650 mg PO Q6H PRN PRN Reason: FEVER OR PAIN LEVEL 1 - 3 Amlodipine Besylate (Norvasc -) 5 mg PO DAILY [facility] Last Admin: 09/24/19 10:50 Dose: 5 mg Apixaban (Eliquis -) 5 mg PO BID [facility] Last Admin: 09/24/19 10:49 Dose: 5 mg Aspirin (Ecotrin -) 81 mg PO DAILY [facility] Last Admin: 09/24/19 10:50 Dose: 81 mg Atorvastatin Calcium (Lipitor -) 40 mg PO HS [facility] Last Admin: 09/23/19 21:54 Dose: 40 mg Benzocaine/Menthol (Cepacol Lozenge -) 1 each MM PRN PRN PRN Reason: SORE THROAT Last Admin: 09/24/19 11:43 Dose: 1 each Chlorhexidine Gluconate (Hibiclens For Decolonization -) 1 applic TP HS [facility] Last Admin: 09/23/19 21:55 Dose: Not Given Diltiazem HCl (Cardizem -) 30 mg PO Q6HPO [facility] Last Admin: 09/24/19 11:42 Dose: 30 mg Duloxetine HCl (Cymbalta -) 20 mg PO DAILY [facility] Last Admin: 09/24/19 10:50 Dose: 20 mg Gabapentin (Neurontin -) 300 mg PO TID [facility] Last Admin: 09/24/19 15:28 Dose: 300 mg Piperacillin Sod/Tazobactam (Sod 3.375 gm/ Dextrose) 50 mls @ 100 mls/hr IVPB Q8H-IV [facility]; Protocol Last Admin: 09/24/19 11:42 Dose: 100 mls/hr Insulin Aspart (Novolog Vial Sliding Scale -) 1 vial SQ ACHS [facility]; Protocol Last Admin: 09/24/19 11:43 Dose: 4 units Insulin Detemir (Levemir Vial) 10 units SQ 0700 [facility] Last Admin: 09/24/19 06:46 Dose: 10 units Lidocaine (Lidoderm Patch -) 1 patch TP DAILY [facility] Last Admin: 09/24/19 10:49 Dose: 1 patch Methylprednisolone Sodium Succinate (Solu-Medrol -) 40 mg IVPB Q8H-IV [facility] Last Admin: 09/24/19 11:42 Dose: 40 mg Metoprolol Tartrate (Lopressor -) 25 mg PO BID [facility] Last Admin: 09/24/19 10:50 Dose: 25 mg Miscellaneous (Lidoderm Patch Removal) 1 each MC DAILY@2200 [facility] Last Admin: 09/23/19 21:55 Dose: 1 each Morphine Sulfate (Morphine Sulfate) 4 mg IVPUSH Q4H PRN PRN Reason: PAIN LEVEL 7 - 10 Multivitamins/Minerals/Vitamin C (Tab-A-Vit -) 1 tab PO DAILY [facility] Last Admin: 09/24/19 10:49 Dose: 1 tab Mupirocin (Bactroban Ointment (For Decolonization) -) 1 applic NS BID [facility] Stop: 09/27/19 21:59 Last Admin: 09/24/19 11:29 Dose: Not Given Oxycodone HCl (Roxicodone -) 5 mg PO Q4H PRN PRN Reason: PAIN LEVEL 4 - 6 Polyethylene Glycol (Miralax (For Daily Use) -) 17 gm PO BID [facility] Last Admin: 09/24/19 11:42 Dose: 17 grams Senna/Docusate Sodium (Pericolace -) 1 tablet PO BID [facility] Last Admin: 09/24/19 10:50 Dose: 1 tablet Tamsulosin HCl (Flomax -) 0.4 mg PO DAILY@0830 [facility] Last Admin: 09/24/19 10:50 Dose: 0.4 mg Ursodiol (Actigal -) 300 mg PO BID [facility] Last Admin: 09/24/19 11:42 Dose: 300 mg - Objective Vital Signs: Vital Signs Temperature 97.9 F 09/24/19 14:00 Pulse Rate 87 09/24/19 14:00 Respiratory Rate 20 09/24/19 14:00 Blood Pressure 127/58 L 09/24/19 14:00 O2 Sat by Pulse Oximetry (%) 95 09/24/19 13:18 Constitutional: Yes: Mild Distress Gastrointestinal: Yes: Soft, Abdomen, Obese, Tenderness (minimal diffuse tenderness) Labs: CBC, BMP 09/24/19 06:35 09/24/19 06:35 INR, PTT INR 3.09 (0.83-1.09) H 09/20/19 22:24 Problem List - Problems (1) Acute cholecystitis Assessment/Plan: f/u HIDA scan Continue iv antibiotics may have clear liquids and advance as tolerated Code(s): K81.0 - ACUTE CHOLECYSTITIS
--- NOTE | 2019-09-24 16:03 | PN ---
Progress Note, Physician History of Present Illness: Pt seen and examined at bedside. He is currently on bipap. - Current Medication List Current Medications: Active Medications Acetaminophen (Tylenol -) 650 mg PO Q6H PRN PRN Reason: FEVER OR PAIN LEVEL 1 - 3 Amlodipine Besylate (Norvasc -) 5 mg PO DAILY [facility] Last Admin: 09/24/19 10:50 Dose: 5 mg Apixaban (Eliquis -) 5 mg PO BID [facility] Last Admin: 09/24/19 10:49 Dose: 5 mg Aspirin (Ecotrin -) 81 mg PO DAILY [facility] Last Admin: 09/24/19 10:50 Dose: 81 mg Atorvastatin Calcium (Lipitor -) 40 mg PO HS [facility] Last Admin: 09/23/19 21:54 Dose: 40 mg Benzocaine/Menthol (Cepacol Lozenge -) 1 each MM PRN PRN PRN Reason: SORE THROAT Last Admin: 09/24/19 11:43 Dose: 1 each Chlorhexidine Gluconate (Hibiclens For Decolonization -) 1 applic TP HS [facility] Last Admin: 09/23/19 21:55 Dose: Not Given Diltiazem HCl (Cardizem -) 30 mg PO Q6HPO [facility] Last Admin: 09/24/19 11:42 Dose: 30 mg Duloxetine HCl (Cymbalta -) 20 mg PO DAILY [facility] Last Admin: 09/24/19 10:50 Dose: 20 mg Gabapentin (Neurontin -) 300 mg PO TID [facility] Last Admin: 09/24/19 15:28 Dose: 300 mg Piperacillin Sod/Tazobactam (Sod 3.375 gm/ Dextrose) 50 mls @ 100 mls/hr IVPB Q8H-IV [facility]; Protocol Last Admin: 09/24/19 11:42 Dose: 100 mls/hr Insulin Aspart (Novolog Vial Sliding Scale -) 1 vial SQ ACHS [facility]; Protocol Last Admin: 09/24/19 11:43 Dose: 4 units Insulin Detemir (Levemir Vial) 10 units SQ 0700 [facility] Last Admin: 09/24/19 06:46 Dose: 10 units Lidocaine (Lidoderm Patch -) 1 patch TP DAILY [facility] Last Admin: 09/24/19 10:49 Dose: 1 patch Methylprednisolone Sodium Succinate (Solu-Medrol -) 40 mg IVPB Q8H-IV [facility] Last Admin: 09/24/19 11:42 Dose: 40 mg Metoprolol Tartrate (Lopressor -) 25 mg PO BID [facility] Last Admin: 09/24/19 10:50 Dose: 25 mg Miscellaneous (Lidoderm Patch Removal) 1 each MC DAILY@2200 [facility] Last Admin: 09/23/19 21:55 Dose: 1 each Morphine Sulfate (Morphine Sulfate) 4 mg IVPUSH Q4H PRN PRN Reason: PAIN LEVEL 7 - 10 Multivitamins/Minerals/Vitamin C (Tab-A-Vit -) 1 tab PO DAILY [facility] Last Admin: 09/24/19 10:49 Dose: 1 tab Mupirocin (Bactroban Ointment (For Decolonization) -) 1 applic NS BID [facility] Stop: 09/27/19 21:59 Last Admin: 09/24/19 11:29 Dose: Not Given Oxycodone HCl (Roxicodone -) 5 mg PO Q4H PRN PRN Reason: PAIN LEVEL 4 - 6 Polyethylene Glycol (Miralax (For Daily Use) -) 17 gm PO BID [facility] Last Admin: 09/24/19 11:42 Dose: 17 grams Senna/Docusate Sodium (Pericolace -) 1 tablet PO BID [facility] Last Admin: 09/24/19 10:50 Dose: 1 tablet Tamsulosin HCl (Flomax -) 0.4 mg PO DAILY@0830 [facility] Last Admin: 09/24/19 10:50 Dose: 0.4 mg Ursodiol (Actigal -) 300 mg PO BID [facility] Last Admin: 09/24/19 11:42 Dose: 300 mg - Objective Vital Signs: Vital Signs Temperature 97.9 F 09/24/19 14:00 Pulse Rate 87 09/24/19 14:00 Respiratory Rate 20 09/24/19 14:00 Blood Pressure 127/58 L 09/24/19 14:00 O2 Sat by Pulse Oximetry (%) 95 09/24/19 13:18 Constitutional: Yes: Calm Eyes: Yes: Conjunctiva Clear HENT: Yes: Atraumatic Neck: Yes: Supple Cardiovascular: Yes: S1, S2 Respiratory: Yes: On BiPap Gastrointestinal: Yes: Normal Bowel Sounds, Soft Genitourinary: Yes: WNL Musculoskeletal: Yes: WNL Edema: LLE: Trace, RLE: Trace Neurological: Yes: Oriented Psychiatric: Yes: Oriented Labs: CBC, BMP 09/24/19 06:35 09/24/19 06:35 INR, PTT INR 3.09 (0.83-1.09) H 09/20/19 22:24 Problem List - Problems (1) BEKA (acute kidney injury) Code(s): N17.9 - ACUTE KIDNEY FAILURE, UNSPECIFIED Assessment/Plan Current Medications Generic Name Dose Route Start Last Admin Trade Name Freq PRN Reason Stop Dose Admin Acetaminophen 650 mg 09/22/19 13:32 Tylenol - PO Q6H PRN FEVER OR PAIN LEVEL 1 - 3 Amlodipine Besylate 5 mg 09/23/19 10:00 09/24/19 10:50 Norvasc - PO 5 mg DAILY [facility] Administration Apixaban 5 mg 09/22/19 22:00 09/24/19 10:49 Eliquis - PO 5 mg BID [facility] Administration Aspirin 81 mg 09/23/19 10:00 09/24/19 10:50 Ecotrin - PO 81 mg DAILY [facility] Administration Atorvastatin Calcium 40 mg 09/22/19 22:00 09/23/19 21:54 Lipitor - PO 40 mg HS [facility] Administration Benzocaine/Menthol 1 each 09/24/19 11:03 09/24/19 11:43 Cepacol Lozenge - MM 1 each PRN PRN Administration SORE THROAT Chlorhexidine Gluconate 1 applic 09/22/19 22:00 09/23/19 21:55 Hibiclens For Decolonization - TP Not Given HS [facility] Diltiazem HCl 30 mg 09/23/19 08:15 09/24/19 11:42 Cardizem - PO 30 mg Q6HPO [facility] Administration Duloxetine HCl 20 mg 09/23/19 10:00 09/24/19 10:50 Cymbalta - PO 20 mg DAILY [facility] Administration Gabapentin 300 mg 09/22/19 14:00 09/24/19 15:28 Neurontin - PO 300 mg TID [facility] Administration Piperacillin Sod/Tazobactam 50 mls @ 100 mls/hr 09/22/19 18:00 09/24/19 11:42 Sod 3.375 gm/ Dextrose IVPB 100 mls/hr Q8H-IV [facility] Administration Protocol Insulin Aspart 1 vial 09/22/19 16:30 09/24/19 11:43 Novolog Vial Sliding Scale - SQ 4 units ACHS [facility] Administration Protocol Insulin Detemir 10 units 09/23/19 11:30 09/24/19 06:46 Levemir Vial SQ 10 units 0700 [facility] Administration Lidocaine 1 patch 09/23/19 10:00 09/24/19 10:49 Lidoderm Patch - TP 1 patch DAILY [facility] Administration Methylprednisolone Sodium Succinate 40 mg 09/22/19 18:00 09/24/19 11:42 Solu-Medrol - IVPB 40 mg Q8H-IV [facility] Administration Metoprolol Tartrate 25 mg 09/22/19 22:00 09/24/19 10:50 Lopressor - PO 25 mg BID [facility] Administration Miscellaneous 1 each 09/22/19 22:00 09/23/19 21:55 Lidoderm Patch Removal MC 1 each DAILY@2200 [facility] Administration Morphine Sulfate 4 mg 09/22/19 13:32 Morphine Sulfate IVPUSH Q4H PRN PAIN LEVEL 7 - 10 Multivitamins/Minerals/Vitamin C 1 tab 09/23/19 10:00 09/24/19 10:49 Tab-A-Vit - PO 1 tab DAILY [facility] Administration Mupirocin 1 applic 09/22/19 22:00 09/24/19 11:29 Bactroban Ointment (For Decolonization) - NS 09/27/19 21:59 Not Given BID [facility] Oxycodone HCl 5 mg 09/22/19 13:32 Roxicodone - PO Q4H PRN PAIN LEVEL 4 - 6 Polyethylene Glycol 17 gm 09/22/19 22:00 09/24/19 11:42 Miralax (For Daily Use) - PO 17 grams BID [facility] Administration Senna/Docusate Sodium 1 tablet 09/23/19 11:30 09/24/19 10:50 Pericolace - PO 1 tablet BID [facility] Administration Tamsulosin HCl 0.4 mg 09/23/19 08:30 09/24/19 10:50 Flomax - PO 0.4 mg DAILY@0830 [facility] Administration Ursodiol 300 mg 09/24/19 10:00 09/24/19 11:42 Actigal - PO 300 mg BID [facility] Administration 1. Acute kidney injury 2. Joint pains 3. CHF 4. Leukocytosis 5. Anemia 6. a-fib Plan - cont to monitor renal function - bipap as needed - hold off fluis for now - will order repeat cxr for am - avoid nsaids - rosa on hold for now - check bladder scan as ultrasound showed increased urine volume in bladder
--- NOTE | 2019-09-24 21:01 | PN ---
Progress Note, Physician History of Present Illness: Continues to have SOB - Current Medication List Current Medications: Active Medications Acetaminophen (Tylenol -) 650 mg PO Q6H PRN PRN Reason: FEVER OR PAIN LEVEL 1 - 3 Amlodipine Besylate (Norvasc -) 5 mg PO DAILY [facility] Last Admin: 09/24/19 10:50 Dose: 5 mg Apixaban (Eliquis -) 5 mg PO BID [facility] Last Admin: 09/24/19 10:49 Dose: 5 mg Aspirin (Ecotrin -) 81 mg PO DAILY [facility] Last Admin: 09/24/19 10:50 Dose: 81 mg Atorvastatin Calcium (Lipitor -) 40 mg PO HS [facility] Last Admin: 09/23/19 21:54 Dose: 40 mg Benzocaine/Menthol (Cepacol Lozenge -) 1 each MM PRN PRN PRN Reason: SORE THROAT Last Admin: 09/24/19 11:43 Dose: 1 each Chlorhexidine Gluconate (Hibiclens For Decolonization -) 1 applic TP HS [facility] Last Admin: 09/23/19 21:55 Dose: Not Given Diltiazem HCl (Cardizem -) 30 mg PO Q6HPO [facility] Last Admin: 09/24/19 17:45 Dose: 30 mg Duloxetine HCl (Cymbalta -) 20 mg PO DAILY [facility] Last Admin: 09/24/19 10:50 Dose: 20 mg Gabapentin (Neurontin -) 300 mg PO TID [facility] Last Admin: 09/24/19 15:28 Dose: 300 mg Piperacillin Sod/Tazobactam (Sod 3.375 gm/ Dextrose) 50 mls @ 100 mls/hr IVPB Q8H-IV [facility]; Protocol Last Admin: 09/24/19 17:45 Dose: 100 mls/hr Insulin Aspart (Novolog Vial Sliding Scale -) 1 vial SQ ACHS [facility]; Protocol Last Admin: 09/24/19 17:20 Dose: 4 units Insulin Detemir (Levemir Vial) 10 units SQ 0700 [facility] Last Admin: 09/24/19 06:46 Dose: 10 units Lidocaine (Lidoderm Patch -) 1 patch TP DAILY [facility] Last Admin: 09/24/19 10:49 Dose: 1 patch Methylprednisolone Sodium Succinate (Solu-Medrol -) 40 mg IVPB Q8H-IV [facility] Last Admin: 09/24/19 17:45 Dose: 40 mg Metoprolol Tartrate (Lopressor -) 25 mg PO BID [facility] Last Admin: 09/24/19 10:50 Dose: 25 mg Miscellaneous (Lidoderm Patch Removal) 1 each MC DAILY@2200 [facility] Last Admin: 09/23/19 21:55 Dose: 1 each Morphine Sulfate (Morphine Sulfate) 4 mg IVPUSH Q4H PRN PRN Reason: PAIN LEVEL 7 - 10 Multivitamins/Minerals/Vitamin C (Tab-A-Vit -) 1 tab PO DAILY [facility] Last Admin: 09/24/19 10:49 Dose: 1 tab Mupirocin (Bactroban Ointment (For Decolonization) -) 1 applic NS BID [facility] Stop: 09/27/19 21:59 Last Admin: 09/24/19 11:29 Dose: Not Given Oxycodone HCl (Roxicodone -) 5 mg PO Q4H PRN PRN Reason: PAIN LEVEL 4 - 6 Polyethylene Glycol (Miralax (For Daily Use) -) 17 gm PO BID [facility] Last Admin: 09/24/19 11:42 Dose: 17 grams Senna/Docusate Sodium (Pericolace -) 1 tablet PO BID [facility] Last Admin: 09/24/19 10:50 Dose: 1 tablet Tamsulosin HCl (Flomax -) 0.4 mg PO DAILY@0830 [facility] Last Admin: 09/24/19 10:50 Dose: 0.4 mg Ursodiol (Actigal -) 300 mg PO BID [facility] Last Admin: 09/24/19 11:42 Dose: 300 mg - Objective Vital Signs: Vital Signs Temperature 98.4 F 09/24/19 18:00 Pulse Rate 74 09/24/19 18:00 Respiratory Rate 20 09/24/19 18:00 Blood Pressure 131/74 09/24/19 18:00 O2 Sat by Pulse Oximetry (%) 98 09/24/19 20:05 Constitutional: Yes: No Distress Cardiovascular: Yes: Regular Rate and Rhythm Respiratory: Yes: Regular, On BiPap Edema: No Labs: CBC, BMP 09/24/19 06:35 09/24/19 06:35 INR, PTT INR 3.09 (0.83-1.09) H 09/20/19 22:24 Assessment/Plan 78M from [facility] with COPD, HTN, HLD, CAD, DM, CHF (pEF), Afib (on Eliquis), CKD, polyarticular arthritis, ?Pagets disease hx prostate ca admitted with SOB. Being treated for CHF exacerbation/PNA. Also being evaluated for acute cholecystitis, HIDA scan pending. Hematology is consulted for anemia which appears to be chronic since at least 2017 with worsening this year and macrocytosis. Has mild neutrophilic leukocytosis and normal plt count. Ferritin >2000 (506 one month prior), iron sat 48% (12% one month prior). B12/folate normal. SPEP/FLC normal. BEV with faint IgG kappa. IgG normal. Suspect anemia of inflammation + CKD. Will need f/u of possible MGUS.
[2019-09-24] MEDS ORDERED: PT OWN MED DRAWER 7, Y5N ONE (21:21)
[2019-09-24] MEDS: CHLORHEXIDINE GLUCONATE 4% CLEANSER FOR DECOLONIZATION TP SCH (22:15)
[2019-09-24] MEDS: LIDOCAINE PATCH REMOVAL MC SCH (22:15)
[2019-09-24] MEDS: ATORVASTATIN CA 40 MG TABLET (FP) PO SCH (22:15)
[2019-09-25] MEDS ORDERED: PIPERACILLIN/TAZOBACTAM 3.375 GM VIAL IVPB ONE ×3 (00:52→17:50)
[2019-09-25] MEDS ORDERED: DEXTROSE 5%-WATER - 50 ML IVPB ONE ×2 (00:53→09:04)
[2019-09-25] MEDS: dilTIAZem HCL 30 MG TABLET (FP) PO SCH ×5 (01:01→23:29)
[2019-09-25] MEDS: methylPREDNISolone NA SUCC 40 MG/1 ML VIAL IVPB SCH ×3 (01:01→21:25)
[2019-09-25] MEDS: PIPERACILLIN/TAZOB 3.375 GM 3.375 GM in DEXTROSE 5%-WATER - 50 ML IVPB SCH ×3 (01:01→21:24)
[2019-09-25] MEDS: GABAPENTIN 300 MG CAPSULE (FP) PO SCH ×3 (06:12→21:28)
[2019-09-25] MEDS: INSULIN SLIDING SCALE (NOVOLOG) 1 VIAL SQ SCH ×4 (06:32→21:56)
[2019-09-25] MEDS: INSULIN (LEVEMIR) 100 UNITS/ML UNITS SQ SCH (06:32)
[2019-09-25 07:43] LABS: ALBUMIN 2.3 g/dl (3.4-5.0); BILIRUBIN,TOTAL 0.8 mg/dL (0.2-1); BLOOD UREA NITROGEN 66.8 mg/dL (7-18); CALCIUM 9.1 mg/dL (8.5-10.1); CREATININE 1.2 mg/dL (0.55-1.3); POTASSIUM 4.6 mmol/L (3.5-5.1); TOT PROT 5.9 g/dl (6.4-8.2)
[2019-09-25] MEDS ORDERED: PT OWN MED DRAWER 7, Y5N ONE ×2 (09:04→21:18)
[2019-09-25] MEDS: TAMSULOSIN HCL 0.4 MG CAP PO SCH (09:08)
--- NOTE | 2019-09-25 09:34 | PN ---
Progress Note, Physician History of Present Illness: pulmonary alert,comfortable on nasal cannula saturation well - Current Medication List Current Medications: Active Medications Acetaminophen (Tylenol -) 650 mg PO Q6H PRN PRN Reason: FEVER OR PAIN LEVEL 1 - 3 Amlodipine Besylate (Norvasc -) 5 mg PO DAILY [facility] Last Admin: 09/24/19 10:50 Dose: 5 mg Apixaban (Eliquis -) 5 mg PO BID [facility] Last Admin: 09/24/19 22:15 Dose: 5 mg Aspirin (Ecotrin -) 81 mg PO DAILY [facility] Last Admin: 09/24/19 10:50 Dose: 81 mg Atorvastatin Calcium (Lipitor -) 40 mg PO HS [facility] Last Admin: 09/24/19 22:15 Dose: 40 mg Benzocaine/Menthol (Cepacol Lozenge -) 1 each MM PRN PRN PRN Reason: SORE THROAT Last Admin: 09/24/19 11:43 Dose: 1 each Chlorhexidine Gluconate (Hibiclens For Decolonization -) 1 applic TP HS [facility] Last Admin: 09/24/19 22:15 Dose: Not Given Diltiazem HCl (Cardizem -) 30 mg PO Q6HPO [facility] Last Admin: 09/25/19 06:12 Dose: 30 mg Duloxetine HCl (Cymbalta -) 20 mg PO DAILY [facility] Last Admin: 09/24/19 10:50 Dose: 20 mg Gabapentin (Neurontin -) 300 mg PO TID [facility] Last Admin: 09/25/19 06:12 Dose: 300 mg Piperacillin Sod/Tazobactam (Sod 3.375 gm/ Dextrose) 50 mls @ 100 mls/hr IVPB Q8H-IV [facility]; Protocol Last Admin: 09/25/19 01:01 Dose: 100 mls/hr Insulin Aspart (Novolog Vial Sliding Scale -) 1 vial SQ ACHS [facility]; Protocol Last Admin: 09/25/19 06:32 Dose: 4 units Insulin Detemir (Levemir Vial) 10 units SQ 0700 [facility] Last Admin: 09/25/19 06:32 Dose: 10 units Lidocaine (Lidoderm Patch -) 1 patch TP DAILY [facility] Last Admin: 09/24/19 10:49 Dose: 1 patch Methylprednisolone Sodium Succinate (Solu-Medrol -) 40 mg IVPB Q8H-IV [facility] Last Admin: 09/25/19 01:01 Dose: 40 mg Metoprolol Tartrate (Lopressor -) 25 mg PO BID [facility] Last Admin: 09/24/19 22:15 Dose: 25 mg Miscellaneous (Lidoderm Patch Removal) 1 each MC DAILY@2200 [facility] Last Admin: 09/24/19 22:15 Dose: 1 each Morphine Sulfate (Morphine Sulfate) 4 mg IVPUSH Q4H PRN PRN Reason: PAIN LEVEL 7 - 10 Multivitamins/Minerals/Vitamin C (Tab-A-Vit -) 1 tab PO DAILY [facility] Last Admin: 09/24/19 10:49 Dose: 1 tab Mupirocin (Bactroban Ointment (For Decolonization) -) 1 applic NS BID [facility] Stop: 09/27/19 21:59 Last Admin: 09/24/19 22:15 Dose: Not Given Oxycodone HCl (Roxicodone -) 5 mg PO Q4H PRN PRN Reason: PAIN LEVEL 4 - 6 Polyethylene Glycol (Miralax (For Daily Use) -) 17 gm PO BID [facility] Last Admin: 09/24/19 22:16 Dose: 17 grams Senna/Docusate Sodium (Pericolace -) 1 tablet PO BID [facility] Last Admin: 09/24/19 22:15 Dose: 1 tablet Tamsulosin HCl (Flomax -) 0.4 mg PO DAILY@0830 [facility] Last Admin: 09/25/19 09:08 Dose: 0.4 mg Ursodiol (Actigal -) 300 mg PO BID [facility] Last Admin: 09/24/19 22:15 Dose: 300 mg - Objective Vital Signs: Vital Signs Temperature 98.7 F 09/25/19 06:00 Pulse Rate 74 09/25/19 06:00 Respiratory Rate 20 09/25/19 06:00 Blood Pressure 136/89 09/25/19 06:00 O2 Sat by Pulse Oximetry (%) 98 09/25/19 00:27 Constitutional: Yes: Well Nourished, Calm Eyes: Yes: WNL HENT: Yes: WNL Neck: Yes: WNL Cardiovascular: Yes: Pulse Irregular, S1, S2 Respiratory: Yes: Diminished Gastrointestinal: Yes: Normal Bowel Sounds, Soft Extremities: Yes: WNL Edema: Yes Labs: 09/25/19 05:48 Laboratory Tests 11/16/19 10:25 ABG pH 7.39 ABG pCO2 at Pt Temp 48.4 H ABG pO2 at Pt Temp 91.0 ABG HCO3 28.8 H ABG O2 Sat (Measured) 95.9 Oxygen Flow Rate 50 Vent Rate 12 Pressure Support Vent 14/4 Problem List - Problems (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 - OSTEITIS DEFORMANS OF UNSPECIFIED BONE (2) Pneumonia Code(s): J18.9 - PNEUMONIA, UNSPECIFIED ORGANISM Qualifiers: Pneumonia type: due to unspecified organism Laterality: left Lung location: lower lobe of lung Qualified Code(s): J18.9 - Pneumonia, unspecified organism (3) BEKA (acute kidney injury) Code(s): N17.9 - ACUTE KIDNEY FAILURE, UNSPECIFIED (4) Atrial fibrillation Code(s): I48.91 - UNSPECIFIED ATRIAL FIBRILLATION (5) CHF (congestive heart failure) Code(s): I50.9 - HEART FAILURE, UNSPECIFIED Qualifiers: Heart failure type: unspecified Heart failure chronicity: chronic Qualified Code(s): I50.9 - Heart failure, unspecified (6) Diabetes Code(s): E11.9 - TYPE 2 DIABETES MELLITUS WITHOUT COMPLICATIONS Qualifiers: Diabetes mellitus type: other specified (including TAN) Diabetes mellitus terminal press operator insulin use: unspecified detention insulin use status Diabetes mellitus complication status: with other specified complication Qualified Code (s): E13.69 - Other specified diabetes mellitus with other specified complication (7) Extremity pain Code(s): M79.609 - PAIN IN UNSPECIFIED LIMB (8) Shortness of breath Code(s): R06.02 - SHORTNESS OF BREATH (9) Symptomatic anemia Code(s): D64.9 - ANEMIA, UNSPECIFIED (10) Systolic CHF Code(s): I50.20 - UNSPECIFIED SYSTOLIC (CONGESTIVE) HEART FAILURE (11) Acute on chronic respiratory failure with hypoxia and hypercapnia Code(s): J96.21 - ACUTE AND CHRONIC RESPIRATORY FAILURE WITH HYPOXIA; J96.22 - ACUTE AND CHRONIC RESPIRATORY FAILURE WITH HYPERCAPNIA Assessment/Plan ASSESSMENT AND PLAN: Acute Hypoxic and Hypercapneic Respiratory Failure Acute Pulmonary Edema Acute on Chronic Diastolic Heart Failure Atrial Fibrillation with RVR r/o Pneumonia UTI Acute Kidney Injury COPD Paget's Disease DM Anemia - Rate control as per Cardiology - Lasix as tolerated - BiPAP as needed to assist in work of breathing - O2 to keep SpO2 >90% - antibiotics per ID - Medrol taper - Inhaled bronchodilators - Continue anticoagulation - f/u chest- xrays DR CARPENTER
[2019-09-25] MEDS: MUPIROCIN 2% TOPICAL OINTMENT FOR DECOLONIZATION NS SCH ×2 (11:21→21:31)
[2019-09-25] MEDS: METOPROLOL TARTRATE 25 MG TABLET (FP) PO SCH ×2 (11:34→21:30)
[2019-09-25] MEDS: APIXABAN 5 MG TABLET PO SCH ×2 (11:34→21:30)
[2019-09-25] MEDS: LIDOCAINE 5% TOPICAL PATCH TP SCH (11:34)
[2019-09-25] MEDS: ASPIRIN COATED 81 MG TABLET.EC PO SCH (11:34)
[2019-09-25] MEDS: DULoxetine HCL 20 MG CAPSULE.DR PO SCH (11:34)
[2019-09-25] MEDS: MULTIVITAMINS (DAILY MVI) TABLET (FP) PO SCH (11:35)
[2019-09-25] MEDS: SENNOSIDES/DOCUSATE COMBO (SENNA PLUS) TABLET (UD) PO SCH ×2 (11:35→21:31)
[2019-09-25] MEDS: amLODIPine BESYLATE 5 MG TABLET (FP) PO SCH (11:35)
[2019-09-25] MEDS: POLYETHYLENE GLYCOL 3350 119 GM BTL PO SCH ×3 (11:35→22:58)
[2019-09-25] MEDS: URSODIOL 300 MG CAPSULE PO SCH ×2 (11:38→21:28)
--- NOTE | 2019-09-25 11:44 | CONSULT ---
Consult - text type - Consultation Consultation Note: Neurology - Primary Care Physician PCP: Jaz Mendieta - Admission Chief Complaint: SOB History of Present Illness: Patient seen in coverage for Dr. Hatfield. 78 y/o man from [facility] with a PMHx of COPD (3L), HTN, HLD, CAD (s/p Stent), DM , CHF (pEF), Afib (on Eliquis), Anemia, Prostate Ca. Recent admission 08/31-09/17 for Hematuria, Urinary Retention, treated for LLL Pneumonia. Patient presented to the ED on day of admission for SOB. Pt was last admitted at [facility] for hematuria, and was found to also have LLL pneumonia and bone scan concerning for Pagett's disease. PT has complaints currently of "poor breathing and pain all over". Pt also endorsed "feeling hot". He denied any productive cough, hemoptysis, leg swelling, chest pain, nausea/vomiting, or diarrhea. Neurology consulted due to LE weakness which he reports is L>R, states that has been chronic and ongoing. Believed to be due to deconditioning and discussed physical therapy and rehab as likely treatment. - Past Medical History Cardiovascular: Yes: AFIB, CAD, CHF (low normal LVEF on 02/25 ECHO), HTN, Hyperlipdemia, Pulmonary Hypertension Pulmonary: Yes: COPD, O2 Dependent, Other (pulmonary htn) Gastrointestinal: Yes: Other (colon polyps). No: Ascites Renal/: Yes: BPH, Other (prostate ca) Heme/Onc: Yes: Anemia Endocrine: Yes: Diabetes Mellitus - Past Surgical History Past Surgical History: Yes: Stent - Smoking History Smoking history: Never smoked Have you smoked in the past 12 months: No Aproximately how many cigarettes per day: 0 - Alcohol/Substance Use Hx Alcohol Use: No History of Substance Use: reports: None - Social History Usual Living Arrangement: Yes: [facility] ADL: Support Services History of Recent Travel: No Home Medications - Allergies Allergies/Adverse Reactions: Allergies Allergy/AdvReac Type Severity Reaction Status Date / Time No Known Allergies Allergy Verified 09/20/19 22:46 Ambulatory Orders Alendronate Na [Fosamax (Weekly)] 70 mg PO WEEKLY 01/29/17 Atorvastatin Calcium 40 mg PO HS 01/29/17 Aspirin Coated [Ecotrin -] 81 mg PO DAILY tablet.ec 11/05/17 Amlodipine Besylate 5 mg PO DAILY 05/04/18 Acetaminophen [Tylenol .Regular Strength -] 650 mg PO Q6H PRN tablet 03/07/19 Apixaban [Eliquis -] 5 mg PO BID tablet 03/07/19 Insulin Sliding Scale [Novolog Vial Sliding Scale -] 1 vial SQ ACHS units 03/07 Docusate Sodium [Colace] 300 mg PO HS 06/23/19 Gabapentin 300 mg PO TID 06/23/19 Insulin Glargine,Hum.rec.anlog [Basaglar Kwikpen U-100] 20 unit SQ DAILY Polyethylene Glycol 3350 [Miralax 119 gm Btl -] 17 gm PO DAILY 06/23/19 Tamsulosin HCl [Flomax] 0.4 mg PO DAILY 06/23/19 Zinc Oxide 20% Topical Oint 1 appful DAILY PRN 06/23/19 Lidocaine 5% Patch [Lidoderm -] 1 patch TP DAILY patch 07/01/19 Melatonin 3 mg PO HS 08/31/19 Metoprolol Tartrate 25 mg PO BID 08/31/19 Multivitamin [Multiple Vitamins] 1 each PO DAILY 08/31/19 Albuterol 2.5/Ipratropium 0.5 [Duoneb -] 1 amp NEB RQID amp 09/17/19 Duloxetine HCl [Cymbalta -] 20 mg PO DAILY capsule. 09/17/19 Ferrous Sulfate [Feosol] 325 mg PO BID ud 09/17/19 Lisinopril [Prinivil] 2.5 mg PO DAILY tablet 09/17/19 Magnesium Hydrox 2400MG/30Ml [Milk of Magnesia -] 30 ml PO DAILY PRN cup Sennosides [Senna -] 2 tab PO HS PRN tablet 09/17/19 Sitagliptin Phosphate [Januvia -] 25 mg PO DAILY@0700 tab 09/17/19 Mag Hydrox/Al Hydrox/Simeth [Mylanta *Suspension*] 30 ml PO Q6H 09/21/19 Oxycodone HCl 10 mg PO Q8H PRN 09/21/19 Phenazopyridine HCl [Pyridium] 200 mg PO TID 09/21/19 Piperacillin/Tazob 3.375 gm [Zosyn 3.375GM Ivpb (Pre-Docked)] 3.375 gm IVPB Q8H 09/21/19 Potassium Chloride [K-Dur -] 40 meq PO DAILY 09/21/19 Silver Sulfadiazine 1% Top Cr [Silvadene -] 1 applic TP DAILY 09/21/19 predniSONE [Deltasone] 20 mg PO DAILY 09/21/19 Active Medications Acetaminophen (Tylenol -) 650 mg PO Q6H PRN PRN Reason: FEVER OR PAIN LEVEL 1 - 3 Amlodipine Besylate (Norvasc -) 5 mg PO DAILY [facility] Last Admin: 09/25/19 11:35 Dose: 5 mg Apixaban (Eliquis -) 5 mg PO BID [facility] Last Admin: 09/25/19 11:34 Dose: 5 mg Aspirin (Ecotrin -) 81 mg PO DAILY [facility] Last Admin: 09/25/19 11:34 Dose: 81 mg Atorvastatin Calcium (Lipitor -) 40 mg PO HS [facility] Last Admin: 09/24/19 22:15 Dose: 40 mg Benzocaine/Menthol (Cepacol Lozenge -) 1 each MM PRN PRN PRN Reason: SORE THROAT Last Admin: 09/24/19 11:43 Dose: 1 each Chlorhexidine Gluconate (Hibiclens For Decolonization -) 1 applic TP HS [facility] Last Admin: 09/24/19 22:15 Dose: Not Given Diltiazem HCl (Cardizem -) 30 mg PO Q6HPO [facility] Last Admin: 09/25/19 11:39 Dose: 30 mg Duloxetine HCl (Cymbalta -) 20 mg PO DAILY [facility] Last Admin: 09/25/19 11:34 Dose: 20 mg Gabapentin (Neurontin -) 300 mg PO TID [facility] Last Admin: 09/25/19 06:12 Dose: 300 mg Piperacillin Sod/Tazobactam (Sod 3.375 gm/ Dextrose) 50 mls @ 100 mls/hr IVPB Q8H-IV [facility]; Protocol Last Admin: 09/25/19 11:35 Dose: 100 mls/hr Insulin Aspart (Novolog Vial Sliding Scale -) 1 vial SQ ACHS [facility]; Protocol Last Admin: 09/25/19 11:35 Dose: 4 units Insulin Detemir (Levemir Vial) 10 units SQ 0700 [facility] Last Admin: 09/25/19 06:32 Dose: 10 units Lidocaine (Lidoderm Patch -) 1 patch TP DAILY [facility] Last Admin: 09/25/19 11:34 Dose: 1 patch Methylprednisolone Sodium Succinate (Solu-Medrol -) 40 mg IVPB Q12H [facility] Last Admin: 09/25/19 11:35 Dose: 40 mg Metoprolol Tartrate (Lopressor -) 25 mg PO BID [facility] Last Admin: 09/25/19 11:34 Dose: 25 mg Miscellaneous (Lidoderm Patch Removal) 1 each MC DAILY@2200 [facility] Last Admin: 09/24/19 22:15 Dose: 1 each Morphine Sulfate (Morphine Sulfate) 4 mg IVPUSH Q4H PRN PRN Reason: PAIN LEVEL 7 - 10 Multivitamins/Minerals/Vitamin C (Tab-A-Vit -) 1 tab PO DAILY [facility] Last Admin: 09/25/19 11:35 Dose: 1 tab Mupirocin (Bactroban Ointment (For Decolonization) -) 1 applic NS BID [facility] Stop: 09/27/19 21:59 Last Admin: 09/25/19 11:21 Dose: Not Given Oxycodone HCl (Roxicodone -) 5 mg PO Q4H PRN PRN Reason: PAIN LEVEL 4 - 6 Polyethylene Glycol (Miralax (For Daily Use) -) 17 gm PO BID [facility] Last Admin: 09/25/19 11:35 Dose: 17 grams Senna/Docusate Sodium (Pericolace -) 1 tablet PO BID [facility] Last Admin: 09/25/19 11:35 Dose: 1 tablet Tamsulosin HCl (Flomax -) 0.4 mg PO DAILY@0830 [facility] Last Admin: 09/25/19 09:08 Dose: 0.4 mg Ursodiol (Actigal -) 300 mg PO BID [facility] Last Admin: 09/25/19 11:38 Dose: Not Given Family Medical History Family History: HTN Review of Systems - Review of Systems Constitutional: reports: No Symptoms Eyes: reports: No Symptoms HENT: reports: No Symptoms Neck: reports: No Symptoms Cardiovascular: reports: Shortness of Breath Respiratory: reports: SOB Gastrointestinal: reports: No Symptoms Genitourinary: reports: No Symptoms Breasts: reports: No Symptoms Reported Musculoskeletal: reports: No Symptoms Integumentary: reports: No Symptoms Neurological: reports: No Symptoms Endocrine: reports: No Symptoms Hematology/Lymphatic: reports: No Symptoms Psychiatric: reports: No Symptoms Physical Examination Vital Signs: Vital Signs Period Temp Pulse Resp BP Sys/[place] Pulse Ox Last 24 Hr 97.9 F-98.7 F 68-87 20-20 127-136/58-89 95-98 Constitutional: Yes: Mild Distress, Obese Eyes: Yes: WNL, Conjunctiva Clear, EOM Intact, PERRL HENT: Yes: WNL, Atraumatic, Normocephalic Neck: Yes: WNL, Supple, Trachea Midline Cardiovascular: Yes: WNL, Pulse Irregular, S1, S2 Respiratory: Yes: Diminished, On Nasal O2, Rhonchi Gastrointestinal: Yes: WNL, Normal Bowel Sounds, Soft, Abdomen, Obese ...Rectal Exam: Yes: Deferred Renal/: Yes: WNL Breast(s): Yes: WNL Musculoskeletal: Yes: Back Pain, Joint Stiffness, Joint Swelling Extremities: Yes: WNL Peripheral Pulses WNL: Yes Neurological: Awake, alert, cranial nerves intact, sensory intact to LT/PP, moves lower extremities but at best 2/5, not able to ambulate, gait deferred CBCD WBC 11.9 K/mm3 (4.0-10.0) H 09/24/19 06:35 RBC 2.74 M/mm3 (4.00-5.60) L 09/24/19 06:35 Hgb 8.3 GM/dL (11.7-16.9) L 09/24/19 06:35 Hct 26.4 % (35.4-49) L 09/24/19 06:35 MCV 96.4 fl (80-96) H 09/24/19 06:35 MCHC 31.5 g/dl (32.0-35.9) L 09/24/19 06:35 RDW 19.9 % (11.9-15.9) H 09/24/19 06:35 Plt Count 365 K/MM3 (134-434) 09/24/19 06:35 MPV 7.9 fl (7.5-11.1) 09/24/19 06:35 CMP Sodium 142 mmol/L (136-145) 09/25/19 05:48 Potassium 4.6 mmol/L (3.5-5.1) 09/25/19 05:48 Chloride 106 mmol/L (98-107) 09/25/19 05:48 Carbon Dioxide 31 mmol/L (21-32) 09/25/19 05:48 Anion Gap 5 MMOL/L (8-16) L 09/25/19 05:48 BUN 66.8 mg/dL (7-18) H 09/25/19 05:48 Creatinine 1.2 mg/dL (0.55-1.3) 09/25/19 05:48 Random Glucose 233 mg/dL (74-106) H 09/25/19 05:48 Calcium 9.1 mg/dL (8.5-10.1) 09/25/19 05:48 Total Bilirubin 0.8 mg/dL (0.2-1) 09/25/19 05:48 AST 9 U/L (15-37) L 09/25/19 05:48 ALT 22 U/L (13-61) 09/25/19 05:48 Alkaline Phosphatase 88 U/L (45-117) 09/25/19 05:48 Total Protein 5.9 g/dl (6.4-8.2) L 09/25/19 05:48 Albumin 2.3 g/dl (3.4-5.0) L 09/25/19 05:48 CARDIAC ENZYMES Creatine Kinase 11 U/L (26-308) L 09/25/19 05:48 Troponin I 0.03 ng/ml (0.00-0.05) 09/22/19 09:34 Assessment/Plan 78 y/o man from [facility] with a PMHx of COPD (3L), HTN, HLD, CAD (s/p Stent), DM , CHF (pEF), Afib (on Eliquis), Anemia, Prostate Ca. Recent admission 08/31-09/17 for Hematuria, Urinary Retention, treated for LLL Pneumonia. Patient presented to the ED on day of admission for SOB. Pt was last admitted at [facility] for hematuria, and was found to also have LLL pneumonia and bone scan concerning for Pagett's disease. PT has complaints currently of "poor breathing and pain all over". Pt also endorsed "feeling hot". He denied any productive cough, hemoptysis, leg swelling, chest pain, nausea/vomiting, or diarrhea. Neurology consulted due to LE weakness which he reports is L>R, states that has been chronic and ongoing. Believed to be due to deconditioning and discussed physical therapy and rehab as likely treatment. Does not have significant back pain to pursue MRI L spine at this point. Would manage conservatively and try to optimize ambulating with therapy/rehab/assistive devices. Fall precautions. DVT ppx.
--- NOTE | 2019-09-25 13:22 | PN ---
Progress Note, Physician Chief Complaint: SOB UTI Anemia History of Present Illness: c/o generalized pain polyarticular arthritis with multiple joint swelling SOB on exertion Returned from ICU after episode of SVT's Now with possible cholecystitis HIDA scan pending - Current Medication List Current Medications: Active Medications Acetaminophen (Tylenol -) 650 mg PO Q6H PRN PRN Reason: FEVER OR PAIN LEVEL 1 - 3 Amlodipine Besylate (Norvasc -) 5 mg PO DAILY [facility] Last Admin: 09/25/19 11:35 Dose: 5 mg Apixaban (Eliquis -) 5 mg PO BID [facility] Last Admin: 09/25/19 11:34 Dose: 5 mg Aspirin (Ecotrin -) 81 mg PO DAILY [facility] Last Admin: 09/25/19 11:34 Dose: 81 mg Atorvastatin Calcium (Lipitor -) 40 mg PO HS [facility] Last Admin: 09/24/19 22:15 Dose: 40 mg Benzocaine/Menthol (Cepacol Lozenge -) 1 each MM PRN PRN PRN Reason: SORE THROAT Last Admin: 09/24/19 11:43 Dose: 1 each Chlorhexidine Gluconate (Hibiclens For Decolonization -) 1 applic TP HS [facility] Last Admin: 09/24/19 22:15 Dose: Not Given Diltiazem HCl (Cardizem -) 30 mg PO Q6HPO [facility] Last Admin: 09/25/19 11:39 Dose: 30 mg Duloxetine HCl (Cymbalta -) 20 mg PO DAILY [facility] Last Admin: 09/25/19 11:34 Dose: 20 mg Gabapentin (Neurontin -) 300 mg PO TID [facility] Last Admin: 09/25/19 06:12 Dose: 300 mg Piperacillin Sod/Tazobactam (Sod 3.375 gm/ Dextrose) 50 mls @ 100 mls/hr IVPB Q8H-IV [facility]; Protocol Last Admin: 09/25/19 11:35 Dose: 100 mls/hr Insulin Aspart (Novolog Vial Sliding Scale -) 1 vial SQ ACHS [facility]; Protocol Last Admin: 09/25/19 11:35 Dose: 4 units Insulin Detemir (Levemir Vial) 10 units SQ 0700 [facility] Last Admin: 09/25/19 06:32 Dose: 10 units Lidocaine (Lidoderm Patch -) 1 patch TP DAILY [facility] Last Admin: 09/25/19 11:34 Dose: 1 patch Methylprednisolone Sodium Succinate (Solu-Medrol -) 40 mg IVPB Q12H [facility] Last Admin: 09/25/19 11:35 Dose: 40 mg Metoprolol Tartrate (Lopressor -) 25 mg PO BID [facility] Last Admin: 09/25/19 11:34 Dose: 25 mg Miscellaneous (Lidoderm Patch Removal) 1 each MC DAILY@2200 [facility] Last Admin: 09/24/19 22:15 Dose: 1 each Morphine Sulfate (Morphine Sulfate) 4 mg IVPUSH Q4H PRN PRN Reason: PAIN LEVEL 7 - 10 Last Admin: 09/25/19 12:53 Dose: 4 mg Multivitamins/Minerals/Vitamin C (Tab-A-Vit -) 1 tab PO DAILY [facility] Last Admin: 09/25/19 11:35 Dose: 1 tab Mupirocin (Bactroban Ointment (For Decolonization) -) 1 applic NS BID [facility] Stop: 09/27/19 21:59 Last Admin: 09/25/19 11:21 Dose: Not Given Oxycodone HCl (Roxicodone -) 5 mg PO Q4H PRN PRN Reason: PAIN LEVEL 4 - 6 Polyethylene Glycol (Miralax (For Daily Use) -) 17 gm PO BID [facility] Last Admin: 09/25/19 11:35 Dose: 17 grams Senna/Docusate Sodium (Pericolace -) 1 tablet PO BID [facility] Last Admin: 09/25/19 11:35 Dose: 1 tablet Tamsulosin HCl (Flomax -) 0.4 mg PO DAILY@0830 [facility] Last Admin: 09/25/19 09:08 Dose: 0.4 mg Ursodiol (Actigal -) 300 mg PO BID [facility] Last Admin: 09/25/19 11:38 Dose: Not Given - Objective Vital Signs: Vital Signs Temperature 98.7 F 09/25/19 06:00 Pulse Rate 74 09/25/19 06:00 Respiratory Rate 20 09/25/19 06:00 Blood Pressure 136/89 09/25/19 06:00 O2 Sat by Pulse Oximetry (%) 98 09/25/19 00:27 Constitutional: Yes: Well Nourished, No Distress, Calm Cardiovascular: Yes: Regular Rate and Rhythm Respiratory: Yes: Regular, On Nasal O2 Gastrointestinal: Yes: Normal Bowel Sounds, Soft, Abdomen, Obese, Tenderness ( diffuse) Genitourinary: Yes: Incontinence Musculoskeletal: Yes: Joint Swelling (multiple), Muscle Weakness Extremities: Yes: WNL Edema: No Peripheral Pulses WNL: Yes Neurological: Yes: Alert, Oriented Psychiatric: Yes: Alert, Oriented Labs: CBC, BMP 09/24/19 06:35 09/25/19 05:48 INR, PTT INR 3.09 (0.83-1.09) H 09/20/19 22:24 Problem List - Problems (1) Leukocytosis Assessment/Plan: -monitor trend -Seen by ID -Cultures: Microbiology 09/21/19 00:00 Blood - Peripheral Venous Blood Culture - Preliminary NO GROWTH OBTAINED AFTER 72 HOURS, INCUBATION TO CONTINUE FOR 2 DAYS. 09/21/19 00:00 Blood - Peripheral Venous Blood Culture - Preliminary NO GROWTH OBTAINED AFTER 72 HOURS, INCUBATION TO CONTINUE FOR 2 DAYS. 09/21/19 18:00 Synovial Fluid - Knee Gram Stain - Final 09/21/19 18:00 Synovial Fluid - Knee Body Fluid Culture - Preliminary NO AEROBIC GROWTH, 24 HRS 09/22/19 19:45 Urine For Antigen Detection Legionella Antigen - Final 09/22/19 19:45 Urine For Antigen Detection Streptococcus pneumoniae Antigen (M - Final 09/21/19 18:40 Nares - Mrsa Screen - Right MRSA Screen - Final NO MRSA ISOLATED 09/21/19 18:40 Nares - Mrsa Screen - Left MRSA Screen - Final NO MRSA ISOLATED 09/21/19 00:28 Urine - Urine - Catheterized Urine Culture - Final NO GROWTH OBTAINED -Tylenol for fever>100.0F -IV Zosyn Problems reviewed: Yes Code(s): D72.829 - ELEVATED WHITE BLOOD CELL COUNT, UNSPECIFIED Qualifiers: Leukocytosis type: unspecified Qualified Code(s): D72.829 - Elevated white blood cell count, unspecified (2) Paget's bone disease Assessment/Plan: -Hematology consult Problems reviewed: Yes Code(s): M88.9 - OSTEITIS DEFORMANS OF UNSPECIFIED BONE (3) Pneumonia Assessment/Plan: -CXR negative for infiltrates -Pulmonary consult -Bronchodilators -Nasal O2 to keep SpO2>90% -CT chest BLLL infiltrates -ID on board -On IV Zosyn -Legionella negative Problems reviewed: Yes Code(s): J18.9 - PNEUMONIA, UNSPECIFIED ORGANISM Qualifiers: Pneumonia type: due to unspecified organism Laterality: left Lung location: lower lobe of lung Qualified Code(s): J18.9 - Pneumonia, unspecified organism (4) BEKA (acute kidney injury) Assessment/Plan: -acute on chronic renal insufficiency -Nephrology consult -Monitor trend -Renal US without signs of obstruction Problems reviewed: Yes Code(s): N17.9 - ACUTE KIDNEY FAILURE, UNSPECIFIED (5) Anemia Assessment/Plan: -Chronic, multifactorial -Iron deficiency in the past -Iron levels high now, will hold iron supplement Problems reviewed: Yes Code(s): D64.9 - ANEMIA, UNSPECIFIED Qualifiers: Anemia type: iron deficiency (6) Atrial fibrillation Assessment/Plan: -paroxysmal -chronic -On eliquis 5 mg po bid Problems reviewed: Yes Code(s): I48.91 - UNSPECIFIED ATRIAL FIBRILLATION (7) BPH (benign prostatic hyperplasia) Assessment/Plan: -On tamsulosin -Seen by Dr Omar Friedman in the past Problems reviewed: Yes Code(s): N40.0 - BENIGN PROSTATIC HYPERPLASIA WITHOUT LOWER URINRY TRACT SYMP (8) Diabetes Assessment/Plan: -Last A1c at 6.4 -BGM AC HS because of medrol -Diabetic low sodium diet Problems reviewed: Yes Code(s): E11.9 - TYPE 2 DIABETES MELLITUS WITHOUT COMPLICATIONS Qualifiers: Diabetes mellitus type: other specified (including TAN) Diabetes mellitus chcf insulin use: unspecified chcf insulin use status Diabetes mellitus complication status: with other specified complication Qualified Code (s): E13.69 - Other specified diabetes mellitus with other specified complication (9) UTI (urinary tract infection) Assessment/Plan: -UA + nitrites -UC negative Problems reviewed: Yes Code(s): N39.0 - URINARY TRACT INFECTION, SITE NOT SPECIFIED (10) Polyarthralgia Assessment/Plan: -Rheumatology consult -Uric acid normal -ESR, CRP elevated -medrol IV Q8H -Acetaminophen 650 mg Q4H PRN for pain 1-3 or fever>100.0 F -Oxycodone 5 mg Q4H PRN for pain 4-6 -Morphine 2 mg q4h PRN for pain 7-10 -Miralax BID + colace 300 mg po HS for bowel regimen Problems reviewed: Yes Code(s): M25.50 - PAIN IN UNSPECIFIED JOINT (11) Acute cholecystitis Assessment/Plan: -Seen by Surgery -Awaiting HIDA Scan ordered yesterday Problems reviewed: Yes Code(s): K81.0 - ACUTE CHOLECYSTITIS (12) SVT (supraventricular tachycardia) Assessment/Plan: -rate controlled now -On Diltiazem -Tele monitoring Problems reviewed: Yes Code(s): I47.1 - SUPRAVENTRICULAR TACHYCARDIA Assessment/Plan see problem list
--- NOTE | 2019-09-25 17:13 | PN ---
Progress Note, Physician History of Present Illness: Pt seen and examined at bedside. He is awake and appears comfortable. He is asking for regular food. - Current Medication List Current Medications: Active Medications Acetaminophen (Tylenol -) 650 mg PO Q6H PRN PRN Reason: FEVER OR PAIN LEVEL 1 - 3 Amlodipine Besylate (Norvasc -) 5 mg PO DAILY [facility] Last Admin: 09/25/19 11:35 Dose: 5 mg Apixaban (Eliquis -) 5 mg PO BID [facility] Last Admin: 09/25/19 11:34 Dose: 5 mg Aspirin (Ecotrin -) 81 mg PO DAILY [facility] Last Admin: 09/25/19 11:34 Dose: 81 mg Atorvastatin Calcium (Lipitor -) 40 mg PO HS [facility] Last Admin: 09/24/19 22:15 Dose: 40 mg Benzocaine/Menthol (Cepacol Lozenge -) 1 each MM PRN PRN PRN Reason: SORE THROAT Last Admin: 09/24/19 11:43 Dose: 1 each Chlorhexidine Gluconate (Hibiclens For Decolonization -) 1 applic TP HS [facility] Last Admin: 09/24/19 22:15 Dose: Not Given Diltiazem HCl (Cardizem -) 30 mg PO Q6HPO [facility] Last Admin: 09/25/19 11:39 Dose: 30 mg Duloxetine HCl (Cymbalta -) 40 mg PO DAILY [facility] Gabapentin (Neurontin -) 300 mg PO TID [facility] Last Admin: 09/25/19 15:41 Dose: 300 mg Piperacillin Sod/Tazobactam (Sod 3.375 gm/ Dextrose) 50 mls @ 100 mls/hr IVPB Q8H-IV [facility]; Protocol Last Admin: 09/25/19 11:35 Dose: 100 mls/hr Insulin Aspart (Novolog Vial Sliding Scale -) 1 vial SQ ACHS [facility]; Protocol Last Admin: 09/25/19 11:35 Dose: 4 units Insulin Detemir (Levemir Vial) 10 units SQ 0700 [facility] Last Admin: 09/25/19 06:32 Dose: 10 units Lidocaine (Lidoderm Patch -) 1 patch TP DAILY [facility] Last Admin: 09/25/19 11:34 Dose: 1 patch Methylprednisolone Sodium Succinate (Solu-Medrol -) 40 mg IVPB Q12H [facility] Last Admin: 09/25/19 11:35 Dose: 40 mg Metoprolol Tartrate (Lopressor -) 25 mg PO BID [facility] Last Admin: 09/25/19 11:34 Dose: 25 mg Miscellaneous (Lidoderm Patch Removal) 1 each MC DAILY@2200 [facility] Last Admin: 09/24/19 22:15 Dose: 1 each Morphine Sulfate (Morphine Sulfate) 4 mg IVPUSH Q4H PRN PRN Reason: PAIN LEVEL 7 - 10 Last Admin: 09/25/19 12:53 Dose: 4 mg Multivitamins/Minerals/Vitamin C (Tab-A-Vit -) 1 tab PO DAILY [facility] Last Admin: 09/25/19 11:35 Dose: 1 tab Mupirocin (Bactroban Ointment (For Decolonization) -) 1 applic NS BID [facility] Stop: 09/27/19 21:59 Last Admin: 09/25/19 11:21 Dose: Not Given Oxycodone HCl (Roxicodone -) 5 mg PO Q4H PRN PRN Reason: PAIN LEVEL 4 - 6 Polyethylene Glycol (Miralax (For Daily Use) -) 17 gm PO BID [facility] Last Admin: 09/25/19 11:35 Dose: 17 grams Senna/Docusate Sodium (Pericolace -) 1 tablet PO BID [facility] Last Admin: 09/25/19 11:35 Dose: 1 tablet Tamsulosin HCl (Flomax -) 0.4 mg PO DAILY@0830 [facility] Last Admin: 09/25/19 09:08 Dose: 0.4 mg Trazodone HCl (Desyrel -) 50 mg PO [facility] Ursodiol (Actigal -) 300 mg PO BID [facility] Last Admin: 09/25/19 11:38 Dose: Not Given - Objective Vital Signs: Vital Signs Temperature 98.7 F 09/25/19 06:00 Pulse Rate 74 09/25/19 06:00 Respiratory Rate 20 09/25/19 06:00 Blood Pressure 136/89 09/25/19 06:00 O2 Sat by Pulse Oximetry (%) 98 09/25/19 00:27 Constitutional: Yes: Calm Eyes: Yes: Conjunctiva Clear HENT: Yes: Atraumatic Neck: Yes: Supple Cardiovascular: Yes: S1, S2 Respiratory: Yes: CTA Bilaterally Gastrointestinal: Yes: Soft Genitourinary: Yes: Incontinence Musculoskeletal: Yes: WNL Edema: Yes Edema: LLE: Trace, RLE: Trace Neurological: Yes: Oriented Psychiatric: Yes: Oriented Labs: CBC, BMP 09/24/19 06:35 09/25/19 05:48 INR, PTT INR 3.09 (0.83-1.09) H 09/20/19 22:24 Problem List - Problems (1) BEKA (acute kidney injury) Code(s): N17.9 - ACUTE KIDNEY FAILURE, UNSPECIFIED Assessment/Plan Current Medications Generic Name Dose Route Start Last Admin Trade Name Freq PRN Reason Stop Dose Admin Acetaminophen 650 mg 09/22/19 13:32 Tylenol - PO Q6H PRN FEVER OR PAIN LEVEL 1 - 3 Amlodipine Besylate 5 mg 09/23/19 10:00 09/25/19 11:35 Norvasc - PO 5 mg DAILY [facility] Administration Apixaban 5 mg 09/22/19 22:00 09/25/19 11:34 Eliquis - PO 5 mg BID [facility] Administration Aspirin 81 mg 09/23/19 10:00 09/25/19 11:34 Ecotrin - PO 81 mg DAILY [facility] Administration Atorvastatin Calcium 40 mg 09/22/19 22:00 09/24/19 22:15 Lipitor - PO 40 mg HS [facility] Administration Benzocaine/Menthol 1 each 09/24/19 11:03 09/24/19 11:43 Cepacol Lozenge - MM 1 each PRN PRN Administration SORE THROAT Chlorhexidine Gluconate 1 applic 09/22/19 22:00 09/24/19 22:15 Hibiclens For Decolonization - TP Not Given HS [facility] Diltiazem HCl 30 mg 09/23/19 08:15 09/25/19 11:39 Cardizem - PO 30 mg Q6HPO [facility] Administration Duloxetine HCl 40 mg 09/25/19 14:01 Cymbalta - PO DAILY [facility] Gabapentin 300 mg 09/22/19 14:00 09/25/19 15:41 Neurontin - PO 300 mg TID [facility] Administration Piperacillin Sod/Tazobactam 50 mls @ 100 mls/hr 09/22/19 18:00 09/25/19 11:35 Sod 3.375 gm/ Dextrose IVPB 100 mls/hr Q8H-IV [facility] Administration Protocol Insulin Aspart 1 vial 09/22/19 16:30 09/25/19 11:35 Novolog Vial Sliding Scale - SQ 4 units ACHS [facility] Administration Protocol Insulin Detemir 10 units 09/23/19 11:30 09/25/19 06:32 Levemir Vial SQ 10 units 0700 [facility] Administration Lidocaine 1 patch 09/23/19 10:00 09/25/19 11:34 Lidoderm Patch - TP 1 patch DAILY [facility] Administration Methylprednisolone Sodium Succinate 40 mg 09/25/19 10:00 09/25/19 11:35 Solu-Medrol - IVPB 40 mg Q12H [facility] Administration Metoprolol Tartrate 25 mg 09/22/19 22:00 09/25/19 11:34 Lopressor - PO 25 mg BID [facility] Administration Miscellaneous 1 each 09/22/19 22:00 09/24/19 22:15 Lidoderm Patch Removal MC 1 each DAILY@2200 [facility] Administration Morphine Sulfate 4 mg 09/22/19 13:32 09/25/19 12:53 Morphine Sulfate IVPUSH 4 mg Q4H PRN Administration PAIN LEVEL 7 - 10 Multivitamins/Minerals/Vitamin C 1 tab 09/23/19 10:00 09/25/19 11:35 Tab-A-Vit - PO 1 tab DAILY [facility] Administration Mupirocin 1 applic 09/22/19 22:00 09/25/19 11:21 Bactroban Ointment (For Decolonization) - NS 09/27/19 21:59 Not Given BID [facility] Oxycodone HCl 5 mg 09/22/19 13:32 Roxicodone - PO Q4H PRN PAIN LEVEL 4 - 6 Polyethylene Glycol 17 gm 09/22/19 22:00 09/25/19 11:35 Miralax (For Daily Use) - PO 17 grams BID [facility] Administration Senna/Docusate Sodium 1 tablet 09/23/19 11:30 09/25/19 11:35 Pericolace - PO 1 tablet BID [facility] Administration Tamsulosin HCl 0.4 mg 09/23/19 08:30 09/25/19 09:08 Flomax - PO 0.4 mg DAILY@0830 [facility] Administration Trazodone HCl 50 mg 09/25/19 22:00 Desyrel - PO HS [facility] Ursodiol 300 mg 09/24/19 10:00 09/25/19 11:38 Actigal - PO Not Given BID [facility] Laboratory Tests 09/23/19 09/24/19 09/25/19 06:00 06:35 05:48 Creatinine 1.6 H 1.4 H 1.2 1. Acute kidney injury 2. Joint pains 3. CHF 4. Leukocytosis 5. Anemia 6. 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
[2019-09-25] MEDS ORDERED: DEXTROSE 5%-WATER - 100 ML IVPB ONE (17:50)
--- NOTE | 2019-09-25 19:05 | PN ---
Progress Note, Physician History of Present Illness: SOB is a little better - Current Medication List Current Medications: Active Medications Acetaminophen (Tylenol -) 650 mg PO Q6H PRN PRN Reason: FEVER OR PAIN LEVEL 1 - 3 Amlodipine Besylate (Norvasc -) 5 mg PO DAILY [facility] Last Admin: 09/25/19 11:35 Dose: 5 mg Apixaban (Eliquis -) 5 mg PO BID [facility] Last Admin: 09/25/19 11:34 Dose: 5 mg Aspirin (Ecotrin -) 81 mg PO DAILY [facility] Last Admin: 09/25/19 11:34 Dose: 81 mg Atorvastatin Calcium (Lipitor -) 40 mg PO HS [facility] Last Admin: 09/24/19 22:15 Dose: 40 mg Benzocaine/Menthol (Cepacol Lozenge -) 1 each MM PRN PRN PRN Reason: SORE THROAT Last Admin: 09/24/19 11:43 Dose: 1 each Chlorhexidine Gluconate (Hibiclens For Decolonization -) 1 applic TP HS [facility] Last Admin: 09/24/19 22:15 Dose: Not Given Diltiazem HCl (Cardizem -) 30 mg PO Q6HPO [facility] Last Admin: 09/25/19 18:32 Dose: 30 mg Duloxetine HCl (Cymbalta -) 40 mg PO DAILY [facility] Gabapentin (Neurontin -) 300 mg PO TID [facility] Last Admin: 09/25/19 15:41 Dose: 300 mg Piperacillin Sod/Tazobactam (Sod 3.375 gm/ Dextrose) 50 mls @ 100 mls/hr IVPB Q8H-IV [facility]; Protocol Last Admin: 09/25/19 11:35 Dose: 100 mls/hr Insulin Aspart (Novolog Vial Sliding Scale -) 1 vial SQ ACHS [facility]; Protocol Last Admin: 09/25/19 18:17 Dose: 6 units Insulin Detemir (Levemir Vial) 10 units SQ 0700 [facility] Last Admin: 09/25/19 06:32 Dose: 10 units Lidocaine (Lidoderm Patch -) 1 patch TP DAILY [facility] Last Admin: 09/25/19 11:34 Dose: 1 patch Methylprednisolone Sodium Succinate (Solu-Medrol -) 40 mg IVPB Q12H [facility] Last Admin: 09/25/19 11:35 Dose: 40 mg Metoprolol Tartrate (Lopressor -) 25 mg PO BID [facility] Last Admin: 09/25/19 11:34 Dose: 25 mg Miscellaneous (Lidoderm Patch Removal) 1 each MC DAILY@2200 [facility] Last Admin: 09/24/19 22:15 Dose: 1 each Morphine Sulfate (Morphine Sulfate) 4 mg IVPUSH Q4H PRN PRN Reason: PAIN LEVEL 7 - 10 Last Admin: 09/25/19 12:53 Dose: 4 mg Multivitamins/Minerals/Vitamin C (Tab-A-Vit -) 1 tab PO DAILY [facility] Last Admin: 09/25/19 11:35 Dose: 1 tab Mupirocin (Bactroban Ointment (For Decolonization) -) 1 applic NS BID [facility] Stop: 09/27/19 21:59 Last Admin: 09/25/19 11:21 Dose: Not Given Oxycodone HCl (Roxicodone -) 5 mg PO Q4H PRN PRN Reason: PAIN LEVEL 4 - 6 Polyethylene Glycol (Miralax (For Daily Use) -) 17 gm PO BID [facility] Last Admin: 09/25/19 11:35 Dose: 17 grams Senna/Docusate Sodium (Pericolace -) 1 tablet PO BID [facility] Last Admin: 09/25/19 11:35 Dose: 1 tablet Tamsulosin HCl (Flomax -) 0.4 mg PO DAILY@0830 [facility] Last Admin: 09/25/19 09:08 Dose: 0.4 mg Trazodone HCl (Desyrel -) 50 mg PO [facility] Ursodiol (Actigal -) 300 mg PO BID [facility] Last Admin: 09/25/19 11:38 Dose: Not Given - Objective Vital Signs: Vital Signs Temperature 97.6 F 09/25/19 10:00 Pulse Rate 79 09/25/19 10:00 Respiratory Rate 20 09/25/19 10:00 Blood Pressure 137/79 09/25/19 10:00 O2 Sat by Pulse Oximetry (%) 98 09/25/19 10:00 Constitutional: Yes: No Distress Eyes: Yes: Conjunctiva Clear Cardiovascular: Yes: Regular Rate and Rhythm Respiratory: Yes: Regular, CTA Bilaterally Gastrointestinal: Yes: Soft Edema: No Labs: CBC, BMP 09/24/19 06:35 09/25/19 05:48 INR, PTT INR 3.09 (0.83-1.09) H 09/20/19 22:24 Assessment/Plan 78M from SNF with COPD, HTN, HLD, CAD, DM, CHF (pEF), Afib (on Eliquis), CKD, polyarticular arthritis, ?Pagets disease hx prostate ca admitted with SOB. Being treated for CHF exacerbation/PNA. Also being evaluated for acute cholecystitis, HIDA scan pending. Hematology is consulted for anemia which appears to be chronic since at least 2017 with worsening this year and macrocytosis. Has mild neutrophilic leukocytosis and normal plt count. Ferritin >2000 (506 one month prior), iron sat 48% (12% one month prior). B12/folate normal. SPEP/FLC normal. BEV with faint IgG kappa. IgG normal. Suspect anemia of inflammation + CKD. Will need f/u of possible MGUS.
--- NOTE | 2019-09-25 20:01 | PN ---
Progress Note, Physician Chief Complaint: Pt is alert; feels better (no dyspnea or palpitations); anxious History of Present Illness: The patient is a year old black man with a past medical history of diabetes, diastolic CHF, afib, anemia, COPD, HTN,, HLD, polyarthritis, Paget's disease, who is here today from [facility] for evaluation of shortness of breath. The patient was recently discharged and was placed at [facility] where he was being treated with antibiotics for pneumonia. While at [facility] the patient was noted to be short of breath since yesterday. Patient denies headache, lightheadedness. Denies fever, chills. Denies chest pain, shortness of breath. Denies nausea, vomiting, diarrhea, abdominal pain. Allergies: NKA PCP: Jaz Mendieta - Current Medication List Current Medications: Active Medications Acetaminophen (Tylenol -) 650 mg PO Q6H PRN PRN Reason: FEVER OR PAIN LEVEL 1 - 3 Amlodipine Besylate (Norvasc -) 5 mg PO DAILY [facility] Last Admin: 09/25/19 11:35 Dose: 5 mg Apixaban (Eliquis -) 5 mg PO BID [facility] Last Admin: 09/25/19 11:34 Dose: 5 mg Aspirin (Ecotrin -) 81 mg PO DAILY [facility] Last Admin: 09/25/19 11:34 Dose: 81 mg Atorvastatin Calcium (Lipitor -) 40 mg PO [facility] Last Admin: 09/24/19 22:15 Dose: 40 mg Benzocaine/Menthol (Cepacol Lozenge -) 1 each MM PRN PRN PRN Reason: SORE THROAT Last Admin: 09/24/19 11:43 Dose: 1 each Chlorhexidine Gluconate (Hibiclens For Decolonization -) 1 applic TP [facility] Last Admin: 09/24/19 22:15 Dose: Not Given Diltiazem HCl (Cardizem -) 30 mg PO Q6HPO [facility] Last Admin: 09/25/19 18:32 Dose: 30 mg Duloxetine HCl (Cymbalta -) 40 mg PO DAILY [facility] Gabapentin (Neurontin -) 300 mg PO TID [facility] Last Admin: 09/25/19 15:41 Dose: 300 mg Piperacillin Sod/Tazobactam (Sod 3.375 gm/ Dextrose) 50 mls @ 100 mls/hr IVPB Q8H-IV [facility]; Protocol Last Admin: 09/25/19 11:35 Dose: 100 mls/hr Insulin Aspart (Novolog Vial Sliding Scale -) 1 vial SQ ACHS [facility]; Protocol Last Admin: 09/25/19 18:17 Dose: 6 units Insulin Detemir (Levemir Vial) 10 units SQ 0700 [facility] Last Admin: 09/25/19 06:32 Dose: 10 units Lidocaine (Lidoderm Patch -) 1 patch TP DAILY [facility] Last Admin: 09/25/19 11:34 Dose: 1 patch Methylprednisolone Sodium Succinate (Solu-Medrol -) 40 mg IVPB Q12H [facility] Last Admin: 09/25/19 11:35 Dose: 40 mg Metoprolol Tartrate (Lopressor -) 25 mg PO BID [facility] Last Admin: 09/25/19 11:34 Dose: 25 mg Miscellaneous (Lidoderm Patch Removal) 1 each MC DAILY@2200 [facility] Last Admin: 09/24/19 22:15 Dose: 1 each Morphine Sulfate (Morphine Sulfate) 4 mg IVPUSH Q4H PRN PRN Reason: PAIN LEVEL 7 - 10 Last Admin: 09/25/19 12:53 Dose: 4 mg Multivitamins/Minerals/Vitamin C (Tab-A-Vit -) 1 tab PO DAILY [facility] Last Admin: 09/25/19 11:35 Dose: 1 tab Mupirocin (Bactroban Ointment (For Decolonization) -) 1 applic NS BID [facility] Stop: 09/27/19 21:59 Last Admin: 09/25/19 11:21 Dose: Not Given Oxycodone HCl (Roxicodone -) 5 mg PO Q4H PRN PRN Reason: PAIN LEVEL 4 - 6 Polyethylene Glycol (Miralax (For Daily Use) -) 17 gm PO BID [facility] Last Admin: 09/25/19 11:35 Dose: 17 grams Senna/Docusate Sodium (Pericolace -) 1 tablet PO BID [facility] Last Admin: 09/25/19 11:35 Dose: 1 tablet Tamsulosin HCl (Flomax -) 0.4 mg PO DAILY@0830 [facility] Last Admin: 09/25/19 09:08 Dose: 0.4 mg Trazodone HCl (Desyrel -) 50 mg PO [facility] Ursodiol (Actigal -) 300 mg PO BID [facility] Last Admin: 09/25/19 11:38 Dose: Not Given - Objective Vital Signs: Vital Signs Temperature 98.2 F 09/25/19 18:00 Pulse Rate 101 H 09/25/19 18:00 Respiratory Rate 20 09/25/19 18:00 Blood Pressure 139/76 09/25/19 18:00 O2 Sat by Pulse Oximetry (%) 98 09/25/19 10:00 Constitutional: Yes: Anxious Labs: CBC, BMP 09/24/19 06:35 09/25/19 05:48 INR, PTT INR 3.09 (0.83-1.09) H 09/20/19 22:24 Problem List - Problems (1) Dehydration Assessment/Plan: BUN markedly elevated since in the past week; CXR: no active pathology. IV fluids; ascertain there is no acute bleed (hx chrnoic anemia). Code(s): E86.0 - DEHYDRATION (2) Acute on chronic respiratory failure with hypoxia and hypercapnia Code(s): J96.21 - ACUTE AND CHRONIC RESPIRATORY FAILURE WITH HYPOXIA; J96.22 - ACUTE AND CHRONIC RESPIRATORY FAILURE WITH HYPERCAPNIA (3) Leukocytosis Code(s): D72.829 - ELEVATED WHITE BLOOD CELL COUNT, UNSPECIFIED Qualifiers: Leukocytosis type: unspecified Qualified Code(s): D72.829 - Elevated white blood cell count, unspecified (4) Paget's bone disease Code(s): M88.9 - OSTEITIS DEFORMANS OF UNSPECIFIED BONE (5) Pneumonia Code(s): J18.9 - PNEUMONIA, UNSPECIFIED ORGANISM Qualifiers: Pneumonia type: due to unspecified organism Laterality: left Lung location: lower lobe of lung Qualified Code(s): J18.9 - Pneumonia, unspecified organism (6) Tachycardia Code(s): R00.0 - TACHYCARDIA, UNSPECIFIED (7) Depression Code(s): F32.9 - MAJOR DEPRESSIVE DISORDER, SINGLE EPISODE, UNSPECIFIED (8) Diabetes Code(s): E11.9 - TYPE 2 DIABETES MELLITUS WITHOUT COMPLICATIONS Qualifiers: Diabetes mellitus type: other specified (including TAN) Diabetes mellitus manager intermediate insulin use: unspecified manager intermediate insulin use status Diabetes mellitus complication status: with other specified complication Qualified Code (s): E13.69 - Other specified diabetes mellitus with other specified complication (9) Diastolic CHF Code(s): I50.30 - UNSPECIFIED DIASTOLIC (CONGESTIVE) HEART FAILURE (10) HLD (hyperlipidemia) Code(s): E78.5 - HYPERLIPIDEMIA, UNSPECIFIED (11) Atrial fibrillation Assessment/Plan: Continue metoprolol ER. Titrated off IV diltiazem; started PO diltiazem 30 mg q6h. Assess and correct anemia, renal insufficiency. Code(s): I48.91 - UNSPECIFIED ATRIAL FIBRILLATION Assessment/Plan ICU time spent : 35 minutes.
--- NOTE | 2019-09-25 20:05 | PN ---
Progress Note, Physician - Current Medication List Current Medications: Active Medications Acetaminophen (Tylenol -) 650 mg PO Q6H PRN PRN Reason: FEVER OR PAIN LEVEL 1 - 3 Amlodipine Besylate (Norvasc -) 5 mg PO DAILY [facility] Last Admin: 09/25/19 11:35 Dose: 5 mg Apixaban (Eliquis -) 5 mg PO BID [facility] Last Admin: 09/25/19 11:34 Dose: 5 mg Aspirin (Ecotrin -) 81 mg PO DAILY [facility] Last Admin: 09/25/19 11:34 Dose: 81 mg Atorvastatin Calcium (Lipitor -) 40 mg PO HS [facility] Last Admin: 09/24/19 22:15 Dose: 40 mg Benzocaine/Menthol (Cepacol Lozenge -) 1 each MM PRN PRN PRN Reason: SORE THROAT Last Admin: 09/24/19 11:43 Dose: 1 each Chlorhexidine Gluconate (Hibiclens For Decolonization -) 1 applic TP [facility] Last Admin: 09/24/19 22:15 Dose: Not Given Diltiazem HCl (Cardizem -) 30 mg PO Q6HPO [facility] Last Admin: 09/25/19 18:32 Dose: 30 mg Duloxetine HCl (Cymbalta -) 40 mg PO DAILY [facility] Gabapentin (Neurontin -) 300 mg PO TID [facility] Last Admin: 09/25/19 15:41 Dose: 300 mg Piperacillin Sod/Tazobactam (Sod 3.375 gm/ Dextrose) 50 mls @ 100 mls/hr IVPB Q8H-IV [facility]; Protocol Last Admin: 09/25/19 11:35 Dose: 100 mls/hr Insulin Aspart (Novolog Vial Sliding Scale -) 1 vial SQ ACHS [facility]; Protocol Last Admin: 09/25/19 18:17 Dose: 6 units Insulin Detemir (Levemir Vial) 10 units SQ 0700 [facility] Last Admin: 09/25/19 06:32 Dose: 10 units Lidocaine (Lidoderm Patch -) 1 patch TP DAILY [facility] Last Admin: 09/25/19 11:34 Dose: 1 patch Methylprednisolone Sodium Succinate (Solu-Medrol -) 40 mg IVPB Q12H [facility] Last Admin: 09/25/19 11:35 Dose: 40 mg Metoprolol Tartrate (Lopressor -) 25 mg PO BID [facility] Last Admin: 09/25/19 11:34 Dose: 25 mg Miscellaneous (Lidoderm Patch Removal) 1 each MC DAILY@2200 [facility] Last Admin: 09/24/19 22:15 Dose: 1 each Morphine Sulfate (Morphine Sulfate) 4 mg IVPUSH Q4H PRN PRN Reason: PAIN LEVEL 7 - 10 Last Admin: 09/25/19 12:53 Dose: 4 mg Multivitamins/Minerals/Vitamin C (Tab-A-Vit -) 1 tab PO DAILY [facility] Last Admin: 09/25/19 11:35 Dose: 1 tab Mupirocin (Bactroban Ointment (For Decolonization) -) 1 applic NS BID [facility] Stop: 09/27/19 21:59 Last Admin: 09/25/19 11:21 Dose: Not Given Oxycodone HCl (Roxicodone -) 5 mg PO Q4H PRN PRN Reason: PAIN LEVEL 4 - 6 Polyethylene Glycol (Miralax (For Daily Use) -) 17 gm PO BID [facility] Last Admin: 09/25/19 11:35 Dose: 17 grams Senna/Docusate Sodium (Pericolace -) 1 tablet PO BID [facility] Last Admin: 09/25/19 11:35 Dose: 1 tablet Tamsulosin HCl (Flomax -) 0.4 mg PO DAILY@0830 [facility] Last Admin: 09/25/19 09:08 Dose: 0.4 mg Trazodone HCl (Desyrel -) [address] [facility] Ursodiol (Actigal -) 300 mg PO BID [facility] Last Admin: 09/25/19 11:38 Dose: Not Given - Objective Vital Signs: Vital Signs Temperature 98.2 F 09/25/19 18:00 Pulse Rate 101 H 09/25/19 18:00 Respiratory Rate 20 09/25/19 18:00 Blood Pressure 139/76 09/25/19 18:00 O2 Sat by Pulse Oximetry (%) 98 09/25/19 10:00 Labs: CBC, BMP 09/24/19 06:35 09/25/19 05:48 INR, PTT INR 3.09 (0.83-1.09) H 09/20/19 22:24 Problem List - Problems (1) Dehydration Code(s): E86.0 - DEHYDRATION (2) Acute on chronic respiratory failure with hypoxia and hypercapnia Code(s): J96.21 - ACUTE AND CHRONIC RESPIRATORY FAILURE WITH HYPOXIA; J96.22 - ACUTE AND CHRONIC RESPIRATORY FAILURE WITH HYPERCAPNIA (3) Leukocytosis Code(s): D72.829 - ELEVATED WHITE BLOOD CELL COUNT, UNSPECIFIED Qualifiers: Leukocytosis type: unspecified Qualified Code(s): D72.829 - Elevated white blood cell count, unspecified (4) Paget's bone disease Code(s): M88.9 - OSTEITIS DEFORMANS OF UNSPECIFIED BONE (5) Pneumonia Code(s): J18.9 - PNEUMONIA, UNSPECIFIED ORGANISM Qualifiers: Pneumonia type: due to unspecified organism Laterality: left Lung location: lower lobe of lung Qualified Code(s): J18.9 - Pneumonia, unspecified organism (6) Tachycardia Code(s): R00.0 - TACHYCARDIA, UNSPECIFIED (7) Depression Code(s): F32.9 - MAJOR DEPRESSIVE DISORDER, SINGLE EPISODE, UNSPECIFIED (8) Diabetes Code(s): E11.9 - TYPE 2 DIABETES MELLITUS WITHOUT COMPLICATIONS Qualifiers: Diabetes mellitus type: other specified (including TAN) Diabetes mellitus intermediate manager insulin use: unspecified nursing home insulin use status Diabetes mellitus complication status: with other specified complication Qualified Code (s): E13.69 - Other specified diabetes mellitus with other specified complication (9) Diastolic CHF Code(s): I50.30 - UNSPECIFIED DIASTOLIC (CONGESTIVE) HEART FAILURE (10) HLD (hyperlipidemia) Code(s): E78.5 - HYPERLIPIDEMIA, UNSPECIFIED (11) Atrial fibrillation Code(s): I48.91 - UNSPECIFIED ATRIAL FIBRILLATION
--- NOTE | 2019-09-25 20:05 | PN ---
Progress Note, Physician Chief Complaint: Pt is alert; anxious. No chest pain or palpitations. Dyspnea on mild exertion. History of Present Illness: The patient is a year old black man with a past medical history of diabetes, diastolic CHF, afib, anemia, COPD, HTN,, HLD, polyarthritis, Paget's disease, who is here today from [facility] for evaluation of shortness of breath. The patient was recently discharged and was placed at [facility] where he was being treated with antibiotics for pneumonia. While at [facility] the patient was noted to be short of breath since yesterday. Patient denies headache, lightheadedness. Denies fever, chills. Denies chest pain, shortness of breath. Denies nausea, vomiting, diarrhea, abdominal pain. Allergies: NKA PCP: Jaz Mendieta - Current Medication List Current Medications: Active Medications Acetaminophen (Tylenol -) 650 mg PO Q6H PRN PRN Reason: FEVER OR PAIN LEVEL 1 - 3 Amlodipine Besylate (Norvasc -) 5 mg PO DAILY [facility] Last Admin: 09/25/19 11:35 Dose: 5 mg Apixaban (Eliquis -) 5 mg PO BID [facility] Last Admin: 09/25/19 11:34 Dose: 5 mg Aspirin (Ecotrin -) 81 mg PO DAILY [facility] Last Admin: 09/25/19 11:34 Dose: 81 mg Atorvastatin Calcium (Lipitor -) 40 mg PO HS [facility] Last Admin: 09/24/19 22:15 Dose: 40 mg Benzocaine/Menthol (Cepacol Lozenge -) 1 each MM PRN PRN PRN Reason: SORE THROAT Last Admin: 09/24/19 11:43 Dose: 1 each Chlorhexidine Gluconate (Hibiclens For Decolonization -) 1 applic TP [facility] Last Admin: 09/24/19 22:15 Dose: Not Given Diltiazem HCl (Cardizem -) 30 mg PO Q6HPO [facility] Last Admin: 09/25/19 18:32 Dose: 30 mg Duloxetine HCl (Cymbalta -) 40 mg PO DAILY [facility] Gabapentin (Neurontin -) 300 mg PO TID [facility] Last Admin: 09/25/19 15:41 Dose: 300 mg Piperacillin Sod/Tazobactam (Sod 3.375 gm/ Dextrose) 50 mls @ 100 mls/hr IVPB Q8H-IV [facility]; Protocol Last Admin: 09/25/19 11:35 Dose: 100 mls/hr Insulin Aspart (Novolog Vial Sliding Scale -) 1 vial SQ ACHS [facility]; Protocol Last Admin: 09/25/19 18:17 Dose: 6 units Insulin Detemir (Levemir Vial) 10 units SQ 0700 [facility] Last Admin: 09/25/19 06:32 Dose: 10 units Lidocaine (Lidoderm Patch -) 1 patch TP DAILY [facility] Last Admin: 09/25/19 11:34 Dose: 1 patch Methylprednisolone Sodium Succinate (Solu-Medrol -) 40 mg IVPB Q12H [facility] Last Admin: 09/25/19 11:35 Dose: 40 mg Metoprolol Tartrate (Lopressor -) 25 mg PO BID [facility] Last Admin: 09/25/19 11:34 Dose: 25 mg Miscellaneous (Lidoderm Patch Removal) 1 each MC DAILY@2200 [facility] Last Admin: 09/24/19 22:15 Dose: 1 each Morphine Sulfate (Morphine Sulfate) 4 mg IVPUSH Q4H PRN PRN Reason: PAIN LEVEL 7 - 10 Last Admin: 09/25/19 12:53 Dose: 4 mg Multivitamins/Minerals/Vitamin C (Tab-A-Vit -) 1 tab PO DAILY [facility] Last Admin: 09/25/19 11:35 Dose: 1 tab Mupirocin (Bactroban Ointment (For Decolonization) -) 1 applic NS BID [facility] Stop: 09/27/19 21:59 Last Admin: 09/25/19 11:21 Dose: Not Given Oxycodone HCl (Roxicodone -) 5 mg PO Q4H PRN PRN Reason: PAIN LEVEL 4 - 6 Polyethylene Glycol (Miralax (For Daily Use) -) 17 gm PO BID [facility] Last Admin: 09/25/19 11:35 Dose: 17 grams Senna/Docusate Sodium (Pericolace -) 1 tablet PO BID [facility] Last Admin: 09/25/19 11:35 Dose: 1 tablet Tamsulosin HCl (Flomax -) 0.4 mg PO DAILY@0830 [facility] Last Admin: 09/25/19 09:08 Dose: 0.4 mg Trazodone HCl (Desyrel -) 50 mg PO [facility] Ursodiol (Actigal -) 300 mg PO BID [facility] Last Admin: 09/25/19 11:38 Dose: Not Given - Objective Vital Signs: Vital Signs Temperature 98.2 F 09/25/19 18:00 Pulse Rate 101 H 09/25/19 18:00 Respiratory Rate 20 09/25/19 18:00 Blood Pressure 139/76 09/25/19 18:00 O2 Sat by Pulse Oximetry (%) 98 09/25/19 10:00 Constitutional: Yes: Anxious Eyes: Yes: WNL HENT: Yes: WNL Neck: Yes: WNL Cardiovascular: Yes: Pulse Irregular, Murmur Respiratory: Yes: Diminished Gastrointestinal: Yes: Soft ...Rectal Exam: Yes: Deferred Genitourinary: No: Anuria Musculoskeletal: Yes: Muscle Weakness Extremities: Yes: Cool Edema: No Peripheral Pulses WNL: Yes Integumentary: Yes: WNL Neurological: Yes: Alert, Weakness Psychiatric: Yes: Alert, Other (anxiety/depression) Labs: CBC, BMP 09/24/19 06:35 09/25/19 05:48 INR, PTT INR 3.09 (0.83-1.09) H 09/20/19 22:24 Abnormal Lab Results 09/26/19 09/27/19 09/27/19 09:45 06:30 06:30 WBC 15.8 H RBC 3.07 L Hgb 9.1 L Hct 29.5 L MCV 96.3 H MCHC 30.8 L RDW 18.7 H Absolute Neuts (auto) 14.9 H Neutrophils % 94.0 H Neutrophils % (Manual) 93.0 H Lymphocytes % 3.4 L Lymphocytes % (Manual) 4.0 L D Monocytes % 2.3 L Monocytes % (Manual) 3 L ESR 74 H Carbon Dioxide 33 H Anion Gap 4 L BUN 41.5 H Random Glucose 224 H Magnesium 2.7 H - ....Imaging Chest X-ray: Image Reviewed EKG: Image Reviewed Other: Image Reviewed Problem List - Problems (1) Dehydration Assessment/Plan: BUN/Cr improving of furosemide. Code(s): E86.0 - DEHYDRATION (2) Acute on chronic respiratory failure with hypoxia and hypercapnia Code(s): J96.21 - ACUTE AND CHRONIC RESPIRATORY FAILURE WITH HYPOXIA; J96.22 - ACUTE AND CHRONIC RESPIRATORY FAILURE WITH HYPERCAPNIA (3) Leukocytosis Code(s): D72.829 - ELEVATED WHITE BLOOD CELL COUNT, UNSPECIFIED Qualifiers: Leukocytosis type: unspecified Qualified Code(s): D72.829 - Elevated white blood cell count, unspecified (4) Paget's bone disease Code(s): M88.9 - OSTEITIS DEFORMANS OF UNSPECIFIED BONE (5) Pneumonia Code(s): J18.9 - PNEUMONIA, UNSPECIFIED ORGANISM Qualifiers: Pneumonia type: due to unspecified organism Laterality: left Lung location: lower lobe of lung Qualified Code(s): J18.9 - Pneumonia, unspecified organism (6) Tachycardia Code(s): R00.0 - TACHYCARDIA, UNSPECIFIED (7) Depression Code(s): F32.9 - MAJOR DEPRESSIVE DISORDER, SINGLE EPISODE, UNSPECIFIED (8) Diabetes Code(s): E11.9 - TYPE 2 DIABETES MELLITUS WITHOUT COMPLICATIONS Qualifiers: Diabetes mellitus type: other specified (including TAN) Diabetes mellitus custodial insulin use: unspecified custodial insulin use status Diabetes mellitus complication status: with other specified complication Qualified Code (s): E13.69 - Other specified diabetes mellitus with other specified complication (9) Diastolic CHF Code(s): I50.30 - UNSPECIFIED DIASTOLIC (CONGESTIVE) HEART FAILURE (10) HLD (hyperlipidemia) Code(s): E78.5 - HYPERLIPIDEMIA, UNSPECIFIED (11) Atrial fibrillation Assessment/Plan: Change to metoprolol and diltiazem long-acting agents. F/u BP and HR. Code(s): I48.91 - UNSPECIFIED ATRIAL FIBRILLATION
[2019-09-25] MEDS: PANTOPRAZOLE SODIUM 40 MG VIAL IVPUSH SCH (21:25)
[2019-09-25] MEDS: traZODone HCL 50 MG TABLET (FP) PO SCH (21:30)
[2019-09-25] MEDS: LIDOCAINE PATCH REMOVAL MC SCH (21:30)
[2019-09-25] MEDS: ATORVASTATIN CA 40 MG TABLET (FP) PO SCH (21:30)
[2019-09-25] MEDS: CHLORHEXIDINE GLUCONATE 4% CLEANSER FOR DECOLONIZATION TP SCH (21:31)
[2019-09-26] MEDS ORDERED: DEXTROSE 5%-WATER - 50 ML IVPB ONE ×3 (01:40→16:45)
[2019-09-26] MEDS ORDERED: PIPERACILLIN/TAZOBACTAM 3.375 GM VIAL IVPB ONE ×3 (01:40→16:45)
[2019-09-26] MEDS: PIPERACILLIN/TAZOB 3.375 GM 3.375 GM in DEXTROSE 5%-WATER - 50 ML IVPB SCH ×3 (01:46→18:01)
[2019-09-26] MEDS: dilTIAZem HCL 30 MG TABLET (FP) PO SCH ×4 (06:14→23:07)
[2019-09-26] MEDS: GABAPENTIN 300 MG CAPSULE (FP) PO SCH ×3 (06:14→22:56)
[2019-09-26] MEDS: INSULIN (LEVEMIR) 100 UNITS/ML UNITS SQ SCH (06:14)
[2019-09-26] MEDS: INSULIN SLIDING SCALE (NOVOLOG) 1 VIAL SQ SCH ×4 (06:15→23:13)
[2019-09-26 07:48] LABS: ALBUMIN 2.4 g/dl (3.4-5.0); BILIRUBIN,TOTAL 0.8 mg/dL (0.2-1); BLOOD UREA NITROGEN 48.6 mg/dL (7-18); CALCIUM 9.3 mg/dL (8.5-10.1); CREATININE 0.9 mg/dL (0.55-1.3); TOT PROT 5.9 g/dl (6.4-8.2)
[2019-09-26] MEDS ORDERED: PT OWN MED DRAWER 7, Y5N ONE ×3 (08:06→23:03)
[2019-09-26] MEDS: TAMSULOSIN HCL 0.4 MG CAP PO SCH (08:29)
[2019-09-26] MEDS: PANTOPRAZOLE SODIUM 40 MG VIAL IVPUSH SCH (09:26)
[2019-09-26] MEDS: ASPIRIN COATED 81 MG TABLET.EC PO SCH (09:27)
[2019-09-26] MEDS: DULoxetine HCL 20 MG CAPSULE.DR PO SCH (09:27)
[2019-09-26] MEDS: APIXABAN 5 MG TABLET PO SCH ×2 (09:27→22:57)
[2019-09-26] MEDS: methylPREDNISolone NA SUCC 40 MG/1 ML VIAL IVPB SCH ×2 (09:27→22:57)
[2019-09-26] MEDS: METOPROLOL TARTRATE 25 MG TABLET (FP) PO SCH ×2 (09:27→22:57)
[2019-09-26] MEDS: amLODIPine BESYLATE 5 MG TABLET (FP) PO SCH (09:27)
[2019-09-26] MEDS: URSODIOL 300 MG CAPSULE PO SCH ×2 (09:27→22:58)
[2019-09-26] MEDS: SENNOSIDES/DOCUSATE COMBO (SENNA PLUS) TABLET (UD) PO SCH ×2 (09:30→22:57)
[2019-09-26] MEDS: MULTIVITAMINS (DAILY MVI) TABLET (FP) PO SCH (09:30)
[2019-09-26] MEDS: POLYETHYLENE GLYCOL 3350 119 GM BTL PO SCH ×2 (09:30→23:04)
[2019-09-26] MEDS: MUPIROCIN 2% TOPICAL OINTMENT FOR DECOLONIZATION NS SCH (09:31)
[2019-09-26] MEDS: LIDOCAINE 5% TOPICAL PATCH TP SCH (09:33)
--- NOTE | 2019-09-26 10:16 | PN ---
Progress Note, Physician History of Present Illness: pulmonary alert,comfortable,-resp distress - Current Medication List Current Medications: Active Medications Acetaminophen (Tylenol -) 650 mg PO Q6H PRN PRN Reason: FEVER OR PAIN LEVEL 1 - 3 Amlodipine Besylate (Norvasc -) 5 mg PO DAILY [facility] Last Admin: 09/26/19 09:27 Dose: 5 mg Apixaban (Eliquis -) 5 mg PO BID [facility] Last Admin: 09/26/19 09:27 Dose: 5 mg Aspirin (Ecotrin -) 81 mg PO DAILY [facility] Last Admin: 09/26/19 09:27 Dose: 81 mg Atorvastatin Calcium (Lipitor -) 40 mg PO HS [facility] Last Admin: 09/25/19 21:30 Dose: 40 mg Benzocaine/Menthol (Cepacol Lozenge -) 1 each MM PRN PRN PRN Reason: SORE THROAT Last Admin: 09/24/19 11:43 Dose: 1 each Chlorhexidine Gluconate (Hibiclens For Decolonization -) 1 applic TP HS [facility] Last Admin: 09/25/19 21:31 Dose: Not Given Diltiazem HCl (Cardizem -) 30 mg PO Q6HPO [facility] Last Admin: 09/26/19 06:14 Dose: 30 mg Duloxetine HCl (Cymbalta -) 40 mg PO DAILY [facility] Last Admin: 09/26/19 09:27 Dose: 40 mg Gabapentin (Neurontin -) 300 mg PO TID [facility] Last Admin: 09/26/19 06:14 Dose: 300 mg Piperacillin Sod/Tazobactam (Sod 3.375 gm/ Dextrose) 50 mls @ 100 mls/hr IVPB Q8H-IV [facility]; Protocol Last Admin: 09/26/19 09:26 Dose: 100 mls/hr Insulin Aspart (Novolog Vial Sliding Scale -) 1 vial SQ ACHS [facility]; Protocol Last Admin: 09/26/19 06:15 Dose: 4 units Insulin Detemir (Levemir Vial) 10 units SQ 0700 [facility] Last Admin: 09/26/19 06:14 Dose: 10 units Lidocaine (Lidoderm Patch -) 1 patch TP DAILY [facility] Last Admin: 09/26/19 09:33 Dose: 1 patch Methylprednisolone Sodium Succinate (Solu-Medrol -) 40 mg IVPB Q12H [facility] Last Admin: 09/26/19 09:27 Dose: 40 mg Metoprolol Tartrate (Lopressor -) 25 mg PO BID [facility] Last Admin: 09/26/19 09:27 Dose: 25 mg Miscellaneous (Lidoderm Patch Removal) 1 each MC DAILY@2200 [facility] Last Admin: 09/25/19 21:30 Dose: 1 each Morphine Sulfate (Morphine Sulfate) 4 mg IVPUSH Q4H PRN PRN Reason: PAIN LEVEL 7 - 10 Last Admin: 09/25/19 12:53 Dose: 4 mg Multivitamins/Minerals/Vitamin C (Tab-A-Vit -) 1 tab PO DAILY [facility] Last Admin: 09/26/19 09:30 Dose: 1 tab Oxycodone HCl (Roxicodone -) 5 mg PO Q4H PRN PRN Reason: PAIN LEVEL 4 - 6 Pantoprazole Sodium (Protonix Iv) 40 mg IVPUSH DAILY [facility] Last Admin: 09/26/19 09:26 Dose: 40 mg Polyethylene Glycol (Miralax (For Daily Use) -) 17 gm PO BID [facility] Last Admin: 09/26/19 09:30 Dose: Not Given Senna/Docusate Sodium (Pericolace -) 1 tablet PO BID [facility] Last Admin: 09/26/19 09:30 Dose: 1 tablet Tamsulosin HCl (Flomax -) 0.4 mg PO DAILY@0830 [facility] Last Admin: 09/26/19 08:29 Dose: 0.4 mg Trazodone HCl (Desyrel -) 50 mg PO HS [facility] Last Admin: 09/25/19 21:30 Dose: 50 mg Ursodiol (Actigal -) 300 mg PO BID [facility] Last Admin: 09/26/19 09:27 Dose: 300 mg - Objective Vital Signs: Vital Signs Temperature 97.7 F 09/26/19 09:12 Pulse Rate 76 09/26/19 09:12 Respiratory Rate 20 09/26/19 09:12 Blood Pressure 142/66 09/26/19 09:12 O2 Sat by Pulse Oximetry (%) 96 09/26/19 09:12 Constitutional: Yes: Well Nourished, Calm Eyes: Yes: WNL HENT: Yes: WNL Neck: Yes: WNL Cardiovascular: Yes: Pulse Irregular, S1, S2 Respiratory: Yes: Diminished Gastrointestinal: Yes: Normal Bowel Sounds, Soft Extremities: Yes: WNL Edema: No Labs: CBC, BMP 09/26/19 06:39 INR, PTT INR 3.09 (0.83-1.09) H 09/20/19 22:24 Problem List - Problems (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 - OSTEITIS DEFORMANS OF UNSPECIFIED BONE (2) Pneumonia Code(s): J18.9 - PNEUMONIA, UNSPECIFIED ORGANISM Qualifiers: Pneumonia type: due to unspecified organism Laterality: left Lung location: lower lobe of lung Qualified Code(s): J18.9 - Pneumonia, unspecified organism (3) BEKA (acute kidney injury) Code(s): N17.9 - ACUTE KIDNEY FAILURE, UNSPECIFIED (4) Atrial fibrillation Code(s): I48.91 - UNSPECIFIED ATRIAL FIBRILLATION (5) CHF (congestive heart failure) Code(s): I50.9 - HEART FAILURE, UNSPECIFIED Qualifiers: Heart failure type: unspecified Heart failure chronicity: chronic Qualified Code(s): I50.9 - Heart failure, unspecified (6) Diabetes Code(s): E11.9 - TYPE 2 DIABETES MELLITUS WITHOUT COMPLICATIONS Qualifiers: Diabetes mellitus type: other specified (including TAN) 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 status Diabetes mellitus complication status: with other specified complication Qualified Code (s): E13.69 - Other specified diabetes mellitus with other specified complication (7) Extremity pain Code(s): M79.609 - PAIN IN UNSPECIFIED LIMB (8) Shortness of breath Code(s): R06.02 - SHORTNESS OF BREATH (9) Symptomatic anemia Code(s): D64.9 - ANEMIA, UNSPECIFIED (10) Systolic CHF Code(s): I50.20 - UNSPECIFIED SYSTOLIC (CONGESTIVE) HEART FAILURE (11) Acute on chronic respiratory failure with hypoxia and hypercapnia Code(s): J96.21 - ACUTE AND CHRONIC RESPIRATORY FAILURE WITH HYPOXIA; J96.22 - ACUTE AND CHRONIC RESPIRATORY FAILURE WITH HYPERCAPNIA Assessment/Plan ASSESSMENT AND PLAN: Acute Hypoxic and Hypercapneic Respiratory Failure Acute Pulmonary Edema Acute on Chronic Diastolic Heart Failure Atrial Fibrillation with RVR r/o Pneumonia UTI Acute Kidney Injury COPD Paget's Disease DM Anemia - Rate control as per Cardiology - Lasix as tolerated - BiPAP as needed to assist in work of breathing - O2 to keep SpO2 >90% - antibiotics per ID - Medrol taper - Inhaled bronchodilators - Continue anticoagulation - f/u chest- x-rays DR CARPENTER
[2019-09-26 10:25] LABS: HEMOGLOBIN 9.1 GM/dL (11.7-16.9); RBC 3.06 M/mm3 (4.00-5.60); WHITE BLOOD COUNT 15.3 K/mm3 (4.0-10.0)
[2019-09-26 10:26] LABS: BASO % 0.3 % (0-2.0); HEMATOCRIT 29.7 % (35.4-49); MCH 29.8 pg (25.7-33.7); MCHC 30.7 g/dl (32.0-35.9); MEAN CELL VOLUME 97.1 fl (80-96); MEAN PLT VOLUME 7.6 fl (7.5-11.1); NEUT % 91.7 % (42.8-82.8); PLATELET COUNT 338 K/MM3 (134-434); RDW 18.7 % (11.9-15.9)
[2019-09-26 11:13] LABS: MACROCYTOSIS 1+; PLATELET ESTIMATE NORMAL
--- NOTE | 2019-09-26 11:55 | PN ---
Progress Note, Physician - Current Medication List Current Medications: Active Medications Acetaminophen (Tylenol -) 650 mg PO Q6H PRN PRN Reason: FEVER OR PAIN LEVEL 1 - 3 Amlodipine Besylate (Norvasc -) 5 mg PO DAILY [facility] Last Admin: 09/26/19 09:27 Dose: 5 mg Apixaban (Eliquis -) 5 mg PO BID [facility] Last Admin: 09/26/19 09:27 Dose: 5 mg Aspirin (Ecotrin -) 81 mg PO DAILY [facility] Last Admin: 09/26/19 09:27 Dose: 81 mg Atorvastatin Calcium (Lipitor -) 40 mg PO HS [facility] Last Admin: 09/25/19 21:30 Dose: 40 mg Benzocaine/Menthol (Cepacol Lozenge -) 1 each MM PRN PRN PRN Reason: SORE THROAT Last Admin: 09/24/19 11:43 Dose: 1 each Chlorhexidine Gluconate (Hibiclens For Decolonization -) 1 applic TP HS [facility] Last Admin: 09/25/19 21:31 Dose: Not Given Diltiazem HCl (Cardizem -) 30 mg PO Q6HPO [facility] Last Admin: 09/26/19 11:50 Dose: 30 mg Duloxetine HCl (Cymbalta -) 40 mg PO DAILY [facility] Last Admin: 09/26/19 09:27 Dose: 40 mg Gabapentin (Neurontin -) 300 mg PO TID [facility] Last Admin: 09/26/19 06:14 Dose: 300 mg Piperacillin Sod/Tazobactam (Sod 3.375 gm/ Dextrose) 50 mls @ 100 mls/hr IVPB Q8H-IV [facility]; Protocol Last Admin: 09/26/19 09:26 Dose: 100 mls/hr Insulin Aspart (Novolog Vial Sliding Scale -) 1 vial SQ ACHS [facility]; Protocol Last Admin: 09/26/19 11:47 Dose: 4 units Insulin Detemir (Levemir Vial) 10 units SQ 0700 [facility] Last Admin: 09/26/19 06:14 Dose: 10 units Lidocaine (Lidoderm Patch -) 1 patch TP DAILY [facility] Last Admin: 09/26/19 09:33 Dose: 1 patch Methylprednisolone Sodium Succinate (Solu-Medrol -) 40 mg IVPB Q12H [facility] Last Admin: 09/26/19 09:27 Dose: 40 mg Metoprolol Tartrate (Lopressor -) 25 mg PO BID [facility] Last Admin: 09/26/19 09:27 Dose: 25 mg Miscellaneous (Lidoderm Patch Removal) 1 each MC DAILY@2200 [facility] Last Admin: 09/25/19 21:30 Dose: 1 each Morphine Sulfate (Morphine Sulfate) 4 mg IVPUSH Q4H PRN PRN Reason: PAIN LEVEL 7 - 10 Last Admin: 09/25/19 12:53 Dose: 4 mg Multivitamins/Minerals/Vitamin C (Tab-A-Vit -) 1 tab PO DAILY [facility] Last Admin: 09/26/19 09:30 Dose: 1 tab Oxycodone HCl (Roxicodone -) 5 mg PO Q4H PRN PRN Reason: PAIN LEVEL 4 - 6 Pantoprazole Sodium (Protonix Iv) 40 mg IVPUSH DAILY [facility] Last Admin: 09/26/19 09:26 Dose: 40 mg Polyethylene Glycol (Miralax (For Daily Use) -) 17 gm PO BID [facility] Last Admin: 09/26/19 09:30 Dose: Not Given Senna/Docusate Sodium (Pericolace -) 1 tablet PO BID [facility] Last Admin: 09/26/19 09:30 Dose: 1 tablet Tamsulosin HCl (Flomax -) 0.4 mg PO DAILY@0830 [facility] Last Admin: 09/26/19 08:29 Dose: 0.4 mg Trazodone HCl (Desyrel -) 50 mg PO HS [facility] Last Admin: 09/25/19 21:30 Dose: 50 mg Ursodiol (Actigal -) 300 mg PO BID [facility] Last Admin: 09/26/19 09:27 Dose: 300 mg - Objective Vital Signs: Vital Signs Temperature 97.7 F 09/26/19 09:12 Pulse Rate 76 09/26/19 09:12 Respiratory Rate 20 09/26/19 09:12 Blood Pressure 142/66 09/26/19 09:12 O2 Sat by Pulse Oximetry (%) 96 09/26/19 09:12 Eyes: Yes: WNL, Conjunctiva Clear, EOM Intact HENT: Yes: WNL, Atraumatic, Normocephalic Neck: Yes: WNL, Supple, Trachea Midline Cardiovascular: Yes: Pulse Irregular Respiratory: Yes: WNL, Regular, CTA Bilaterally Gastrointestinal: Yes: WNL, Normal Bowel Sounds Genitourinary: Yes: WNL Musculoskeletal: Yes: WNL Extremities: Yes: WNL Edema: No Integumentary: Yes: WNL Neurological: Yes: WNL, Alert, Oriented ...Motor Strength: WNL Psychiatric: Yes: WNL Labs: CBC, BMP 09/26/19 09:45 09/26/19 06:39 INR, PTT INR 3.09 (0.83-1.09) H 09/20/19 22:24 Assessment/Plan - Problems (1) Dehydration Code(s): E86.0 - DEHYDRATION (2) Acute on chronic respiratory failure with hypoxia and hypercapnia Code(s): J96.21 - ACUTE AND CHRONIC RESPIRATORY FAILURE WITH HYPOXIA; J96.22 - ACUTE AND CHRONIC RESPIRATORY FAILURE WITH HYPERCAPNIA (3) Leukocytosis Code(s): D72.829 - ELEVATED WHITE BLOOD CELL COUNT, UNSPECIFIED Qualifiers: Leukocytosis type: unspecified Qualified Code(s): D72.829 - Elevated white blood cell count, unspecified (4) Paget's bone disease Code(s): M88.9 - OSTEITIS DEFORMANS OF UNSPECIFIED BONE (5) Pneumonia Code(s): J18.9 - PNEUMONIA, UNSPECIFIED ORGANISM Qualifiers: Pneumonia type: due to unspecified organism Laterality: left Lung location: lower lobe of lung Qualified Code(s): J18.9 - Pneumonia, unspecified organism (6) Tachycardia Code(s): R00.0 - TACHYCARDIA, UNSPECIFIED (7) Depression Code(s): F32.9 - MAJOR DEPRESSIVE DISORDER, SINGLE EPISODE, UNSPECIFIED (8) Diabetes Code(s): E11.9 - TYPE 2 DIABETES MELLITUS WITHOUT COMPLICATIONS Qualifiers: Diabetes mellitus type: other specified (including TAN) Diabetes mellitus [employer] insulin use: unspecified [facility] insulin use status Diabetes mellitus complication status: with other specified complication Qualified Code (s): E13.69 - Other specified diabetes mellitus with other specified complication (9) Diastolic CHF Code(s): I50.30 - UNSPECIFIED DIASTOLIC (CONGESTIVE) HEART FAILURE (10) HLD (hyperlipidemia) Code(s): E78.5 - HYPERLIPIDEMIA, UNSPECIFIED (11) Atrial fibrillation Code(s): I48.91 - UNSPECIFIED ATRIAL FIBRILLATION
[2019-09-26 12:26] LABS: ERYTHROCYTE SEDIMENTATION RATE 74 mm/hr (0-20)
--- NOTE | 2019-09-26 12:40 | PN ---
Progress Note (short form) - Note Progress Note: Renal follow up for BEKA Pt seen and examined at the bedside awake and alert offers no acute complaints no shortness of breath, chest pain, abdominal pain, fever or chills making urine Vital Signs Temperature 97.7 F 09/26/19 09:12 Pulse Rate 76 09/26/19 09:12 Respiratory Rate 20 09/26/19 09:12 Blood Pressure 142/66 09/26/19 09:12 O2 Sat by Pulse Oximetry (%) 96 09/26/19 09:12 Intake & Output 09/23/19 09/24/19 09/25/19 09/26/19 23:59 23:59 23:59 23:59 Intake Total 945 340 370 190 Output Total 550 Balance 395 340 370 190 Weight 99.79 kg Mild distress from pain neck supple, no JVD RRR, no M/R CTA (anterior examination) soft, obese, NT/ND no bladder distension + edema in LE + left ankle pain CBC, BMP 09/26/19 09:45 09/26/19 06:39 Current Medications Acetaminophen (Tylenol -) 650 mg PO Q6H PRN PRN Reason: FEVER OR PAIN LEVEL 1 - 3 Amlodipine Besylate (Norvasc -) 5 mg PO DAILY [facility] Last Admin: 09/26/19 09:27 Dose: 5 mg Apixaban (Eliquis -) 5 mg PO BID [facility] Last Admin: 09/26/19 09:27 Dose: 5 mg Aspirin (Ecotrin -) 81 mg PO DAILY [facility] Last Admin: 09/26/19 09:27 Dose: 81 mg Atorvastatin Calcium (Lipitor -) 40 mg PO [facility] Last Admin: 09/25/19 21:30 Dose: 40 mg Benzocaine/Menthol (Cepacol Lozenge -) 1 each MM PRN PRN PRN Reason: SORE THROAT Last Admin: 09/24/19 11:43 Dose: 1 each Chlorhexidine Gluconate (Hibiclens For Decolonization -) 1 applic TP [facility] Last Admin: 09/25/19 21:31 Dose: Not Given Diltiazem HCl (Cardizem -) 30 mg PO Q6HPO [facility] Last Admin: 09/26/19 11:50 Dose: 30 mg Duloxetine HCl (Cymbalta -) 40 mg PO DAILY [facility] Last Admin: 09/26/19 09:27 Dose: 40 mg Gabapentin (Neurontin -) 300 mg PO TID [facility] Last Admin: 09/26/19 06:14 Dose: 300 mg Piperacillin Sod/Tazobactam (Sod 3.375 gm/ Dextrose) 50 mls @ 100 mls/hr IVPB Q8H-IV [facility]; Protocol Last Admin: 09/26/19 09:26 Dose: 100 mls/hr Insulin Aspart (Novolog Vial Sliding Scale -) 1 vial SQ ACHS [facility]; Protocol Last Admin: 09/26/19 11:47 Dose: 4 units Insulin Detemir (Levemir Vial) 10 units SQ 0700 [facility] Last Admin: 09/26/19 06:14 Dose: 10 units Lidocaine (Lidoderm Patch -) 1 patch TP DAILY [facility] Last Admin: 09/26/19 09:33 Dose: 1 patch Methylprednisolone Sodium Succinate (Solu-Medrol -) 40 mg IVPB Q12H [facility] Last Admin: 09/26/19 09:27 Dose: 40 mg Metoprolol Tartrate (Lopressor -) 25 mg PO BID [facility] Last Admin: 09/26/19 09:27 Dose: 25 mg Miscellaneous (Lidoderm Patch Removal) 1 each MC DAILY@2200 [facility] Last Admin: 09/25/19 21:30 Dose: 1 each Morphine Sulfate (Morphine Sulfate) 4 mg IVPUSH Q4H PRN PRN Reason: PAIN LEVEL 7 - 10 Last Admin: 09/25/19 12:53 Dose: 4 mg Multivitamins/Minerals/Vitamin C (Tab-A-Vit -) 1 tab PO DAILY [facility] Last Admin: 09/26/19 09:30 Dose: 1 tab Oxycodone HCl (Roxicodone -) 5 mg PO Q4H PRN PRN Reason: PAIN LEVEL 4 - 6 Pantoprazole Sodium (Protonix Iv) 40 mg IVPUSH DAILY [facility] Last Admin: 09/26/19 09:26 Dose: 40 mg Polyethylene Glycol (Miralax (For Daily Use) -) 17 gm PO BID [facility] Last Admin: 09/26/19 09:30 Dose: Not Given Senna/Docusate Sodium (Pericolace -) 1 tablet PO BID [facility] Last Admin: 09/26/19 09:30 Dose: 1 tablet Tamsulosin HCl (Flomax -) 0.4 mg PO DAILY@0830 [facility] Last Admin: 09/26/19 08:29 Dose: 0.4 mg Trazodone HCl (Desyrel -) 50 mg PO HS [facility] Last Admin: 09/25/19 21:30 Dose: 50 mg Ursodiol (Actigal -) 300 mg PO BID [facility] Last Admin: 09/26/19 09:27 Dose: 300 mg 78 year old gentleman with history of CHF with reduced LVEF, Afib, Anemia and DM with recent admission for gross hematuria and BEKA now presents with diffuse body pain and joint pain with BEKA. 1. Acute kidney injury now resolved 2. Joint pains 3. CHF with reduced LVEF 4. Leukocytosis 5. Anemia Renal function improved and stable Renal US without signs of obstruction Urine studies show Low FeNa indicating preserved tubular function If renal function remains stable, can restart ACEi as needed for BP Control Trend renal function and electrolytes HR control per cardiology Thank you Saul Diaz DO
--- NOTE | 2019-09-26 13:33 | PN ---
Progress Note, Physician Chief Complaint: patient seen and examined on the telemtry floor awake alert awaiting HIDA scan tolerating clear liquid diet - Current Medication List Current Medications: Active Medications Acetaminophen (Tylenol -) 650 mg PO Q6H PRN PRN Reason: FEVER OR PAIN LEVEL 1 - 3 Amlodipine Besylate (Norvasc -) 5 mg PO DAILY [facility] Last Admin: 09/26/19 09:27 Dose: 5 mg Apixaban (Eliquis -) 5 mg PO BID [facility] Last Admin: 09/26/19 09:27 Dose: 5 mg Aspirin (Ecotrin -) 81 mg PO DAILY [facility] Last Admin: 09/26/19 09:27 Dose: 81 mg Atorvastatin Calcium (Lipitor -) 40 mg PO HS [facility] Last Admin: 09/25/19 21:30 Dose: 40 mg Benzocaine/Menthol (Cepacol Lozenge -) 1 each MM PRN PRN PRN Reason: SORE THROAT Last Admin: 09/24/19 11:43 Dose: 1 each Chlorhexidine Gluconate (Hibiclens For Decolonization -) 1 applic TP HS [facility] Last Admin: 09/25/19 21:31 Dose: Not Given Diltiazem HCl (Cardizem -) 30 mg PO Q6HPO [facility] Last Admin: 09/26/19 11:50 Dose: 30 mg Duloxetine HCl (Cymbalta -) 40 mg PO DAILY [facility] Last Admin: 09/26/19 09:27 Dose: 40 mg Gabapentin (Neurontin -) 300 mg PO TID [facility] Last Admin: 09/26/19 06:14 Dose: 300 mg Piperacillin Sod/Tazobactam (Sod 3.375 gm/ Dextrose) 50 mls @ 100 mls/hr IVPB Q8H-IV [facility]; Protocol Last Admin: 09/26/19 09:26 Dose: 100 mls/hr Insulin Aspart (Novolog Vial Sliding Scale -) 1 vial SQ ACHS [facility]; Protocol Last Admin: 09/26/19 11:47 Dose: 4 units Insulin Detemir (Levemir Vial) 10 units SQ 0700 [facility] Last Admin: 09/26/19 06:14 Dose: 10 units Lidocaine (Lidoderm Patch -) 1 patch TP DAILY [facility] Last Admin: 09/26/19 09:33 Dose: 1 patch Methylprednisolone Sodium Succinate (Solu-Medrol -) 40 mg IVPB Q12H [facility] Last Admin: 09/26/19 09:27 Dose: 40 mg Metoprolol Tartrate (Lopressor -) 25 mg PO BID [facility] Last Admin: 09/26/19 09:27 Dose: 25 mg Miscellaneous (Lidoderm Patch Removal) 1 each MC DAILY@2200 [facility] Last Admin: 09/25/19 21:30 Dose: 1 each Morphine Sulfate (Morphine Sulfate) 4 mg IVPUSH Q4H PRN PRN Reason: PAIN LEVEL 7 - 10 Last Admin: 09/25/19 12:53 Dose: 4 mg Multivitamins/Minerals/Vitamin C (Tab-A-Vit -) 1 tab PO DAILY [facility] Last Admin: 09/26/19 09:30 Dose: 1 tab Oxycodone HCl (Roxicodone -) 5 mg PO Q4H PRN PRN Reason: PAIN LEVEL 4 - 6 Pantoprazole Sodium (Protonix Iv) 40 mg IVPUSH DAILY [facility] Last Admin: 09/26/19 09:26 Dose: 40 mg Polyethylene Glycol (Miralax (For Daily Use) -) 17 gm PO BID [facility] Last Admin: 09/26/19 09:30 Dose: Not Given Senna/Docusate Sodium (Pericolace -) 1 tablet PO BID [facility] Last Admin: 09/26/19 09:30 Dose: 1 tablet Tamsulosin HCl (Flomax -) 0.4 mg PO DAILY@0830 [facility] Last Admin: 09/26/19 08:29 Dose: 0.4 mg Trazodone HCl (Desyrel -) 50 mg PO HS [facility] Last Admin: 09/25/19 21:30 Dose: 50 mg Ursodiol (Actigal -) 300 mg PO BID [facility] Last Admin: 09/26/19 09:27 Dose: 300 mg - Objective Vital Signs: Vital Signs Temperature 97.7 F 09/26/19 09:12 Pulse Rate 76 09/26/19 09:12 Respiratory Rate 20 09/26/19 09:12 Blood Pressure 142/66 09/26/19 09:12 O2 Sat by Pulse Oximetry (%) 96 09/26/19 09:12 Constitutional: Yes: Calm Cardiovascular: Yes: Regular Rate and Rhythm, S1, S2 Respiratory: Yes: Diminished, On Nasal O2 Gastrointestinal: Yes: Normal Bowel Sounds, Soft Neurological: Yes: Alert Labs: CBC, BMP 09/26/19 09:45 09/26/19 06:39 INR, PTT INR 3.09 (0.83-1.09) H 09/20/19 22:24 Problem List - Problems (1) Acute on chronic respiratory failure with hypoxia and hypercapnia Assessment/Plan: bipap at night nasal canula in day bronchodilators medrol taper Code(s): J96.21 - ACUTE AND CHRONIC RESPIRATORY FAILURE WITH HYPOXIA; J96.22 - ACUTE AND CHRONIC RESPIRATORY FAILURE WITH HYPERCAPNIA (2) Atrial fibrillation Assessment/Plan: po cardizem eliquis and metorpolol HR on monitor rate control Code(s): I48.91 - UNSPECIFIED ATRIAL FIBRILLATION (3) Pneumonia Assessment/Plan: on zosyn Microbiology 09/21/19 18:40 Nares - Mrsa Screen - Right MRSA Screen - Final NO MRSA ISOLATED 09/21/19 18:40 Nares - Mrsa Screen - Left MRSA Screen - Final NO MRSA ISOLATED 08/31/19 12:39 Urine - Urine Iqbal Urine Culture - Final Proteus Mirabilis Code(s): J18.9 - PNEUMONIA, UNSPECIFIED ORGANISM Qualifiers: Pneumonia type: due to unspecified organism Laterality: left Lung location: lower lobe of lung Qualified Code(s): J18.9 - Pneumonia, unspecified organism (4) Polyarthralgia Assessment/Plan: gouty arthitis improved on medrol joint fluid with crystals Code(s): M25.50 - PAIN IN UNSPECIFIED JOINT (5) Acute cholecystitis Assessment/Plan: clear liquid diet will advance to soft diet actigal HIDA pending surgery on board iv zosyn leukocytosis is on medrol Code(s): K81.0 - ACUTE CHOLECYSTITIS
--- NOTE | 2019-09-26 15:28 | PN ---
Progress Note (short form) - Note Progress Note: awake and alert no complaints using bipap at night less joint pain Vital Signs Period Temp Pulse Resp BP Sys/[place] Pulse Ox Last 24 Hr 97.4 F-98.2 F 61-101 20-20 122-150/60-76 96-98 cor-rrr lungs clear abd soft,nt less swelling of the joints CBC, BMP 09/26/19 09:45 09/26/19 06:39 Microbiology 09/21/19 00:00 Blood - Peripheral Venous Blood Culture - Final NO GROWTH AFTER 5 DAYS INCUBATION 09/21/19 00:00 Blood - Peripheral Venous Blood Culture - Final NO GROWTH AFTER 5 DAYS INCUBATION 09/21/19 18:00 Synovial Fluid - Knee Gram Stain - Final 09/21/19 18:00 Synovial Fluid - Knee Body Fluid Culture - Final NO GROWTH OF AEROBIC ORGANISMS AFTER 48 HOURS INCUBATION 09/21/19 18:00 Synovial Fluid - Knee Anaerobic Culture - Final NO ANAEROBES WERE ISOLATED 09/22/19 19:45 Urine For Antigen Detection Legionella Antigen - Final 09/22/19 19:45 Urine For Antigen Detection Streptococcus pneumoniae Antigen (M - Final 09/21/19 18:40 Nares - Mrsa Screen - Right MRSA Screen - Final NO MRSA ISOLATED 09/21/19 18:40 Nares - Mrsa Screen - Left MRSA Screen - Final NO MRSA ISOLATED 09/21/19 00:28 Urine - Urine - Catheterized Urine Culture - Final NO GROWTH OBTAINED synovial fluid +urate crystals Current Medications Acetaminophen (Tylenol -) 650 mg PO Q6H PRN PRN Reason: FEVER OR PAIN LEVEL 1 - 3 Amlodipine Besylate (Norvasc -) 5 mg PO DAILY [facility] Last Admin: 09/26/19 09:27 Dose: 5 mg Apixaban (Eliquis -) 5 mg PO BID [facility] Last Admin: 09/26/19 09:27 Dose: 5 mg Aspirin (Ecotrin -) 81 mg PO DAILY [facility] Last Admin: 09/26/19 09:27 Dose: 81 mg Atorvastatin Calcium (Lipitor -) 40 mg PO HS [facility] Last Admin: 09/25/19 21:30 Dose: 40 mg Benzocaine/Menthol (Cepacol Lozenge -) 1 each MM PRN PRN PRN Reason: SORE THROAT Last Admin: 09/24/19 11:43 Dose: 1 each Chlorhexidine Gluconate (Hibiclens For Decolonization -) 1 applic TP HS [facility] Last Admin: 09/25/19 21:31 Dose: Not Given Diltiazem HCl (Cardizem -) 30 mg PO Q6HPO [facility] Last Admin: 09/26/19 11:50 Dose: 30 mg Duloxetine HCl (Cymbalta -) 40 mg PO DAILY [facility] Last Admin: 09/26/19 09:27 Dose: 40 mg Gabapentin (Neurontin -) 300 mg PO TID [facility] Last Admin: 09/26/19 13:30 Dose: 300 mg Piperacillin Sod/Tazobactam (Sod 3.375 gm/ Dextrose) 50 mls @ 100 mls/hr IVPB Q8H-IV [facility]; Protocol Last Admin: 09/26/19 09:26 Dose: 100 mls/hr Insulin Aspart (Novolog Vial Sliding Scale -) 1 vial SQ ACHS [facility]; Protocol Last Admin: 09/26/19 11:47 Dose: 4 units Insulin Detemir (Levemir Vial) 10 units SQ 0700 [facility] Last Admin: 09/26/19 06:14 Dose: 10 units Lidocaine (Lidoderm Patch -) 1 patch TP DAILY [facility] Last Admin: 09/26/19 09:33 Dose: 1 patch Methylprednisolone Sodium Succinate (Solu-Medrol -) 40 mg IVPB Q12H [facility] Last Admin: 09/26/19 09:27 Dose: 40 mg Metoprolol Tartrate (Lopressor -) 25 mg PO BID [facility] Last Admin: 09/26/19 09:27 Dose: 25 mg Miscellaneous (Lidoderm Patch Removal) 1 each MC DAILY@2200 [facility] Last Admin: 09/25/19 21:30 Dose: 1 each Morphine Sulfate (Morphine Sulfate) 4 mg IVPUSH Q4H PRN PRN Reason: PAIN LEVEL 7 - 10 Last Admin: 09/25/19 12:53 Dose: 4 mg Multivitamins/Minerals/Vitamin C (Tab-A-Vit -) 1 tab PO DAILY [facility] Last Admin: 09/26/19 09:30 Dose: 1 tab Oxycodone HCl (Roxicodone -) 5 mg PO Q4H PRN PRN Reason: PAIN LEVEL 4 - 6 Pantoprazole Sodium (Protonix Iv) 40 mg IVPUSH DAILY [facility] Last Admin: 09/26/19 09:26 Dose: 40 mg Polyethylene Glycol (Miralax (For Daily Use) -) 17 gm PO BID [facility] Last Admin: 09/26/19 09:30 Dose: Not Given Senna/Docusate Sodium (Pericolace -) 1 tablet PO BID [facility] Last Admin: 09/26/19 09:30 Dose: 1 tablet Tamsulosin HCl (Flomax -) 0.4 mg PO DAILY@0830 [facility] Last Admin: 09/26/19 08:29 Dose: 0.4 mg Trazodone HCl (Desyrel -) 50 mg PO HS [facility] Last Admin: 09/25/19 21:30 Dose: 50 mg Ursodiol (Actigal -) 300 mg PO BID [facility] Last Admin: 09/26/19 09:27 Dose: 300 mg a/p afib- management per cardiology on zosyn for pneumonia., ?cholycystitis- hida ordered by surgery- day #6 of zosyn-awaiting hida scan gouty polyarticular arthritis- improved on steroids anemia- s/p transfusion ele-no hydronephrosis
[2019-09-26] MEDS: ATORVASTATIN CA 40 MG TABLET (FP) PO SCH (22:57)
[2019-09-26] MEDS: traZODone HCL 50 MG TABLET (FP) PO SCH (22:57)
[2019-09-26] MEDS: CHLORHEXIDINE GLUCONATE 4% CLEANSER FOR DECOLONIZATION TP SCH (22:59)
[2019-09-26] MEDS: LIDOCAINE PATCH REMOVAL MC SCH (22:59)
[2019-09-26] MEDS: MELATONIN 5 MG TABLETS PO PRN (23:11)
[2019-09-27] MEDS ORDERED: PIPERACILLIN/TAZOBACTAM 3.375 GM VIAL IVPB ONE ×3 (01:50→16:56)
[2019-09-27] MEDS ORDERED: DEXTROSE 5%-WATER - 50 ML IVPB ONE ×3 (01:51→16:56)
[2019-09-27] MEDS: PIPERACILLIN/TAZOB 3.375 GM 3.375 GM in DEXTROSE 5%-WATER - 50 ML IVPB SCH ×3 (02:13→17:14)
[2019-09-27] MEDS: dilTIAZem HCL 30 MG TABLET (FP) PO SCH (05:50)
[2019-09-27] MEDS: GABAPENTIN 300 MG CAPSULE (FP) PO SCH ×3 (05:50→21:58)
[2019-09-27] MEDS: INSULIN (LEVEMIR) 100 UNITS/ML UNITS SQ SCH (06:37)
[2019-09-27] MEDS: INSULIN SLIDING SCALE (NOVOLOG) 1 VIAL SQ SCH ×4 (06:37→21:58)
[2019-09-27 07:01] LABS: BASO % 0.2 % (0-2.0); EOS % 0.1 % (0-4.5); HEMATOCRIT 29.5 % (35.4-49); HEMOGLOBIN 9.1 GM/dL (11.7-16.9); LYMPH % 3.4 % (8-40); MCH 29.7 pg (25.7-33.7); MCHC 30.8 g/dl (32.0-35.9); MEAN CELL VOLUME 96.3 fl (80-96); MEAN PLT VOLUME 7.7 fl (7.5-11.1); MONO % 2.3 % (3.8-10.2); PLATELET COUNT 380 K/MM3 (134-434); RBC 3.07 M/mm3 (4.00-5.60); RDW 18.7 % (11.9-15.9); WHITE BLOOD COUNT 15.8 K/mm3 (4.0-10.0)
[2019-09-27 08:03] LABS: BLOOD UREA NITROGEN 41.5 mg/dL (7-18); CREATININE 0.9 mg/dL (0.55-1.3); MAGNESIUM 2.7 mg/dL (1.8-2.4); PHOSPHOROUS 2.8 mg/dL (2.5-4.9); POTASSIUM 4.9 mmol/L (3.5-5.1)
[2019-09-27] MEDS ORDERED: PT OWN MED DRAWER 7, Y5N ONE (08:22)
--- NOTE | 2019-09-27 10:44 | PN ---
Progress Note, Physician Chief Complaint: SOB UTI Anemia History of Present Illness: c/o generalized pain polyarticular arthritis with multiple joint swelling SOB on exertion Returned from ICU after episode of SVT's Now with possible cholecystitis Just returned from HIDA scan - Current Medication List Current Medications: Active Medications Acetaminophen (Tylenol -) 650 mg PO Q6H PRN PRN Reason: FEVER OR PAIN LEVEL 1 - 3 Amlodipine Besylate (Norvasc -) 5 mg PO DAILY [facility] Last Admin: 09/26/19 09:27 Dose: 5 mg Apixaban (Eliquis -) 5 mg PO BID [facility] Last Admin: 09/26/19 22:57 Dose: 5 mg Aspirin (Ecotrin -) 81 mg PO DAILY [facility] Last Admin: 09/26/19 09:27 Dose: 81 mg Atorvastatin Calcium (Lipitor -) 40 mg PO HS [facility] Last Admin: 09/26/19 22:57 Dose: 40 mg Benzocaine/Menthol (Cepacol Lozenge -) 1 each MM PRN PRN PRN Reason: SORE THROAT Last Admin: 09/24/19 11:43 Dose: 1 each Chlorhexidine Gluconate (Hibiclens For Decolonization -) 1 applic TP HS [facility] Last Admin: 09/26/19 22:59 Dose: Not Given Diltiazem HCl (Cardizem Cd -) 120 mg PO DAILY [facility] Duloxetine HCl (Cymbalta -) 40 mg PO DAILY [facility] Last Admin: 09/26/19 09:27 Dose: 40 mg Gabapentin (Neurontin -) 300 mg PO TID [facility] Last Admin: 09/27/19 05:50 Dose: Not Given Piperacillin Sod/Tazobactam (Sod 3.375 gm/ Dextrose) 50 mls @ 100 mls/hr IVPB Q8H-IV [facility]; Protocol Last Admin: 09/27/19 02:13 Dose: 100 mls/hr Insulin Aspart (Novolog Vial Sliding Scale -) 1 vial SQ ACHS [facility]; Protocol Last Admin: 09/27/19 06:37 Dose: Not Given Insulin Detemir (Levemir Vial) 10 units SQ 0700 [facility] Last Admin: 09/27/19 06:37 Dose: Not Given Lidocaine (Lidoderm Patch -) 1 patch TP DAILY [facility] Last Admin: 09/26/19 09:33 Dose: 1 patch Melatonin (Melatonin) 5 mg PO HS PRN PRN Reason: INSOMNIA Last Admin: 09/26/19 23:11 Dose: 5 mg Methylprednisolone Sodium Succinate (Solu-Medrol -) 40 mg IVPB Q12H [facility] Last Admin: 09/26/19 22:57 Dose: 40 mg Metoprolol Succinate (Toprol Xl -) 50 mg PO DAILY [facility] Miscellaneous (Lidoderm Patch Removal) 1 each MC DAILY@2200 [facility] Last Admin: 09/26/19 22:59 Dose: 1 each Multivitamins/Minerals/Vitamin C (Tab-A-Vit -) 1 tab PO DAILY [facility] Last Admin: 09/26/19 09:30 Dose: 1 tab Pantoprazole Sodium (Protonix Iv) 40 mg IVPUSH DAILY [facility] Last Admin: 09/26/19 09:26 Dose: 40 mg Polyethylene Glycol (Miralax (For Daily Use) -) 17 gm PO BID [facility] Last Admin: 09/26/19 23:04 Dose: Not Given Senna/Docusate Sodium (Pericolace -) 1 tablet PO BID [facility] Last Admin: 09/26/19 22:57 Dose: 1 tablet Tamsulosin HCl (Flomax -) 0.4 mg PO DAILY@0830 [facility] Last Admin: 09/26/19 08:29 Dose: 0.4 mg Trazodone HCl (Desyrel -) 50 mg PO [facility] Last Admin: 09/26/19 22:57 Dose: 50 mg Ursodiol (Actigal -) 300 mg PO BID [facility] Last Admin: 09/26/19 22:58 Dose: 300 mg - Objective Vital Signs: Vital Signs Temperature 98.2 F 09/27/19 09:01 Pulse Rate 78 09/27/19 09:01 Respiratory Rate 22 H 09/27/19 09:01 Blood Pressure 135/67 09/27/19 09:01 O2 Sat by Pulse Oximetry (%) 98 09/27/19 09:01 Constitutional: Yes: Well Nourished, No Distress, Calm Cardiovascular: Yes: Regular Rate and Rhythm Respiratory: Yes: Regular Gastrointestinal: Yes: Normal Bowel Sounds, Soft, Abdomen, Obese Genitourinary: Yes: Incontinence Musculoskeletal: Yes: Muscle Weakness Extremities: Yes: WNL Edema: No Peripheral Pulses WNL: Yes Neurological: Yes: Alert, Oriented Psychiatric: Yes: Alert, Oriented Labs: CBC, BMP 09/27/19 06:30 09/27/19 06:30 INR, PTT INR 3.09 (0.83-1.09) H 09/20/19 22:24 Problem List - Problems (1) Leukocytosis Assessment/Plan: -monitor trend -Seen by ID -Cultures: Microbiology 09/21/19 00:00 Blood - Peripheral Venous Blood Culture - Preliminary NO GROWTH OBTAINED AFTER 72 HOURS, INCUBATION TO CONTINUE FOR 2 DAYS. 09/21/19 00:00 Blood - Peripheral Venous Blood Culture - Preliminary NO GROWTH OBTAINED AFTER 72 HOURS, INCUBATION TO CONTINUE FOR 2 DAYS. 09/21/19 18:00 Synovial Fluid - Knee Gram Stain - Final 09/21/19 18:00 Synovial Fluid - Knee Body Fluid Culture - Preliminary NO AEROBIC GROWTH, 24 HRS 09/22/19 19:45 Urine For Antigen Detection Legionella Antigen - Final 09/22/19 19:45 Urine For Antigen Detection Streptococcus pneumoniae Antigen (M - Final 09/21/19 18:40 Nares - Mrsa Screen - Right MRSA Screen - Final NO MRSA ISOLATED 09/21/19 18:40 Nares - Mrsa Screen - Left MRSA Screen - Final NO MRSA ISOLATED 09/21/19 00:28 Urine - Urine - Catheterized Urine Culture - Final NO GROWTH OBTAINED -Tylenol for fever>100.0F -IV Zosyn Problems reviewed: Yes Code(s): D72.829 - ELEVATED WHITE BLOOD CELL COUNT, UNSPECIFIED Qualifiers: Leukocytosis type: unspecified Qualified Code(s): D72.829 - Elevated white blood cell count, unspecified (2) Paget's bone disease Assessment/Plan: -Hematology consult Problems reviewed: Yes Code(s): M88.9 - OSTEITIS DEFORMANS OF UNSPECIFIED BONE (3) Pneumonia Assessment/Plan: -CXR negative for infiltrates -Pulmonary consult -Bronchodilators -Nasal O2 to keep SpO2>90% -CT chest BLLL infiltrates -ID on board -On IV Zosyn -Legionella negative Problems reviewed: Yes Code(s): J18.9 - PNEUMONIA, UNSPECIFIED ORGANISM Qualifiers: Pneumonia type: due to unspecified organism Laterality: left Lung location: lower lobe of lung Qualified Code(s): J18.9 - Pneumonia, unspecified organism (4) BEKA (acute kidney injury) Assessment/Plan: -acute on chronic renal insufficiency -Nephrology consult -Monitor trend -Renal US without signs of obstruction Problems reviewed: Yes Code(s): N17.9 - ACUTE KIDNEY FAILURE, UNSPECIFIED (5) Anemia Assessment/Plan: -Chronic, multifactorial -Iron deficiency in the past -Iron levels high now, will hold iron supplement Problems reviewed: Yes Code(s): D64.9 - ANEMIA, UNSPECIFIED Qualifiers: Anemia type: iron deficiency (6) Atrial fibrillation Assessment/Plan: -paroxysmal -chronic -On eliquis 5 mg po bid Problems reviewed: Yes Code(s): I48.91 - UNSPECIFIED ATRIAL FIBRILLATION (7) BPH (benign prostatic hyperplasia) Assessment/Plan: -On tamsulosin -Seen by Dr Omar Friedman in the past Problems reviewed: Yes Code(s): N40.0 - BENIGN PROSTATIC HYPERPLASIA WITHOUT LOWER URINRY TRACT SYMP (8) Diabetes Assessment/Plan: -Last A1c at 6.4 -BGM AC HS because of medrol -Diabetic low sodium diet Problems reviewed: Yes Code(s): E11.9 - TYPE 2 DIABETES MELLITUS WITHOUT COMPLICATIONS Qualifiers: Diabetes mellitus type: other specified (including TAN) Diabetes mellitus halfway insulin use: 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 (9) UTI (urinary tract infection) Assessment/Plan: -UA + nitrites -UC negative Problems reviewed: Yes Code(s): N39.0 - URINARY TRACT INFECTION, SITE NOT SPECIFIED (10) Polyarthralgia Assessment/Plan: -Rheumatology consult -Uric acid normal -ESR, CRP elevated -medrol IV Q8H -Acetaminophen 650 mg Q4H PRN for pain 1-3 or fever>100.0 F -Oxycodone 5 mg Q4H PRN for pain 4-6 -Morphine 2 mg q4h PRN for pain 7-10 -Miralax BID + colace 300 mg po HS for bowel regimen -Start colchicine with first anderson of 1.2 mg once, then 0.6 mg po daily Problems reviewed: Yes Code(s): M25.50 - PAIN IN UNSPECIFIED JOINT (11) Acute cholecystitis Assessment/Plan: -Seen by Surgery -Awaiting HIDA Scan results -PPI Code(s): K81.0 - ACUTE CHOLECYSTITIS (12) SVT (supraventricular tachycardia) Assessment/Plan: -rate controlled now -On Diltiazem -d/c tele Problems reviewed: Yes Code(s): I47.1 - SUPRAVENTRICULAR TACHYCARDIA Assessment/Plan see problem list
--- NOTE | 2019-09-27 10:48 | PN ---
Progress Note, Physician Chief Complaint: Pt is alert; anxious. No chest pain or palpitations. Dyspnea on mild exertion. C /o generalized weakness, and wants to "get stronger", but resistant to physical therapist's suggestions. History of Present Illness: The patient is a year old black man with a past medical history of diabetes, diastolic CHF, afib, anemia, COPD, HTN,, HLD, polyarthritis, Paget's disease, who is here today from [facility] for evaluation of shortness of breath. The patient was recently discharged and was placed at [facility] where he was being treated with antibiotics for pneumonia. While at [facility] the patient was noted to be short of breath since yesterday. Patient denies headache, lightheadedness. Denies fever, chills. Denies chest pain, shortness of breath. Denies nausea, vomiting, diarrhea, abdominal pain. Allergies: NKA PCP: Jaz Mendieta - Current Medication List Current Medications: Active Medications Acetaminophen (Tylenol -) 650 mg PO Q6H PRN PRN Reason: FEVER OR PAIN LEVEL 1 - 3 Amlodipine Besylate (Norvasc -) 5 mg PO DAILY [facility] Last Admin: 09/26/19 09:27 Dose: 5 mg Apixaban (Eliquis -) 5 mg PO BID [facility] Last Admin: 09/26/19 22:57 Dose: 5 mg Aspirin (Ecotrin -) 81 mg PO DAILY [facility] Last Admin: 09/26/19 09:27 Dose: 81 mg Atorvastatin Calcium (Lipitor -) 40 mg PO HS [facility] Last Admin: 09/26/19 22:57 Dose: 40 mg Benzocaine/Menthol (Cepacol Lozenge -) 1 each MM PRN PRN PRN Reason: SORE THROAT Last Admin: 09/24/19 11:43 Dose: 1 each Chlorhexidine Gluconate (Hibiclens For Decolonization -) 1 applic TP [facility] Last Admin: 09/26/19 22:59 Dose: Not Given Diltiazem HCl (Cardizem Cd -) 120 mg PO DAILY [facility] Duloxetine HCl (Cymbalta -) 40 mg PO DAILY [facility] Last Admin: 09/26/19 09:27 Dose: 40 mg Gabapentin (Neurontin -) 300 mg PO TID [facility] Last Admin: 09/27/19 05:50 Dose: Not Given Piperacillin Sod/Tazobactam (Sod 3.375 gm/ Dextrose) 50 mls @ 100 mls/hr IVPB Q8H-IV [facility]; Protocol Last Admin: 09/27/19 02:13 Dose: 100 mls/hr Insulin Aspart (Novolog Vial Sliding Scale -) 1 vial SQ ACHS [facility]; Protocol Last Admin: 09/27/19 06:37 Dose: Not Given Insulin Detemir (Levemir Vial) 10 units SQ 0700 [facility] Last Admin: 09/27/19 06:37 Dose: Not Given Lidocaine (Lidoderm Patch -) 1 patch TP DAILY [facility] Last Admin: 09/26/19 09:33 Dose: 1 patch Melatonin (Melatonin) 5 mg PO HS PRN PRN Reason: INSOMNIA Last Admin: 09/26/19 23:11 Dose: 5 mg Methylprednisolone Sodium Succinate (Solu-Medrol -) 40 mg IVPB Q12H [facility] Last Admin: 09/26/19 22:57 Dose: 40 mg Metoprolol Succinate (Toprol Xl -) 50 mg PO DAILY [facility] Miscellaneous (Lidoderm Patch Removal) 1 each MC DAILY@2200 [facility] Last Admin: 09/26/19 22:59 Dose: 1 each Multivitamins/Minerals/Vitamin C (Tab-A-Vit -) 1 tab PO DAILY [facility] Last Admin: 09/26/19 09:30 Dose: 1 tab Pantoprazole Sodium (Protonix Iv) 40 mg IVPUSH DAILY [facility] Last Admin: 09/26/19 09:26 Dose: 40 mg Polyethylene Glycol (Miralax (For Daily Use) -) 17 gm PO BID [facility] Last Admin: 09/26/19 23:04 Dose: Not Given Senna/Docusate Sodium (Pericolace -) 1 tablet PO BID [facility] Last Admin: 09/26/19 22:57 Dose: 1 tablet Tamsulosin HCl (Flomax -) 0.4 mg PO DAILY@0830 [facility] Last Admin: 09/26/19 08:29 Dose: 0.4 mg Trazodone HCl (Desyrel -) 50 mg PO HS [facility] Last Admin: 09/26/19 22:57 Dose: 50 mg Ursodiol (Actigal -) 300 mg PO BID [facility] Last Admin: 09/26/19 22:58 Dose: 300 mg - Objective Vital Signs: Vital Signs Temperature 98.2 F 09/27/19 09:01 Pulse Rate 78 09/27/19 09:01 Respiratory Rate 22 H 09/27/19 09:01 Blood Pressure 135/67 09/27/19 09:01 O2 Sat by Pulse Oximetry (%) 98 09/27/19 09:01 Constitutional: Yes: Anxious Eyes: Yes: WNL HENT: Yes: WNL Neck: Yes: WNL Cardiovascular: Yes: Pulse Irregular Respiratory: Yes: Regular Gastrointestinal: Yes: Soft ...Rectal Exam: Yes: Deferred Genitourinary: No: Anuria Musculoskeletal: Yes: Muscle Weakness Extremities: Yes: Cool Edema: No Peripheral Pulses WNL: Yes Integumentary: Yes: WNL Neurological: Yes: Alert, Weakness Psychiatric: Yes: Other (anxious) Labs: CBC, BMP 09/27/19 06:30 09/27/19 06:30 INR, PTT INR 3.09 (0.83-1.09) H 09/20/19 22:24 - ....Imaging Chest X-ray: Image Reviewed Problem List - Problems (1) Dehydration Assessment/Plan: BUN/Cr improving off furosemide. Code(s): E86.0 - DEHYDRATION (2) Acute on chronic respiratory failure with hypoxia and hypercapnia Code(s): J96.21 - ACUTE AND CHRONIC RESPIRATORY FAILURE WITH HYPOXIA; J96.22 - ACUTE AND CHRONIC RESPIRATORY FAILURE WITH HYPERCAPNIA (3) Leukocytosis Code(s): D72.829 - ELEVATED WHITE BLOOD CELL COUNT, UNSPECIFIED Qualifiers: Leukocytosis type: unspecified Qualified Code(s): D72.829 - Elevated white blood cell count, unspecified (4) Paget's bone disease Code(s): M88.9 - OSTEITIS DEFORMANS OF UNSPECIFIED BONE (5) Pneumonia Code(s): J18.9 - PNEUMONIA, UNSPECIFIED ORGANISM Qualifiers: Pneumonia type: due to unspecified organism Laterality: left Lung location: lower lobe of lung Qualified Code(s): J18.9 - Pneumonia, unspecified organism (6) Tachycardia Code(s): R00.0 - TACHYCARDIA, UNSPECIFIED (7) Depression Code(s): F32.9 - MAJOR DEPRESSIVE DISORDER, SINGLE EPISODE, UNSPECIFIED (8) Diabetes Code(s): E11.9 - TYPE 2 DIABETES MELLITUS WITHOUT COMPLICATIONS Qualifiers: Diabetes mellitus type: other specified (including TAN) Diabetes mellitus intermediate insulin use: unspecified intermediate insulin use status Diabetes mellitus complication status: with other specified complication Qualified Code (s): E13.69 - Other specified diabetes mellitus with other specified complication (9) Diastolic CHF Code(s): I50.30 - UNSPECIFIED DIASTOLIC (CONGESTIVE) HEART FAILURE (10) HLD (hyperlipidemia) Assessment/Plan: on statinj Code(s): E78.5 - HYPERLIPIDEMIA, UNSPECIFIED (11) Atrial fibrillation Assessment/Plan: Changed today to metoprolol and diltiazem long-acting agents. F/u BP and HR. Code(s): I48.91 - UNSPECIFIED ATRIAL FIBRILLATION
[2019-09-27] MEDS: PANTOPRAZOLE SODIUM 40 MG VIAL IVPUSH SCH (10:54)
[2019-09-27] MEDS: methylPREDNISolone NA SUCC 40 MG/1 ML VIAL IVPB SCH ×2 (10:54→21:59)
[2019-09-27] MEDS: MULTIVITAMINS (DAILY MVI) TABLET (FP) PO SCH (10:55)
[2019-09-27] MEDS: APIXABAN 5 MG TABLET PO SCH ×2 (10:55→21:57)
[2019-09-27] MEDS: SENNOSIDES/DOCUSATE COMBO (SENNA PLUS) TABLET (UD) PO SCH ×2 (10:55→21:59)
[2019-09-27] MEDS: DULoxetine HCL 20 MG CAPSULE.DR PO SCH (10:55)
[2019-09-27] MEDS: amLODIPine BESYLATE 5 MG TABLET (FP) PO SCH (10:55)
[2019-09-27] MEDS: ASPIRIN COATED 81 MG TABLET.EC PO SCH (10:55)
[2019-09-27] MEDS: METOPROLOL TARTRATE 25 MG TABLET (FP) PO SCH (10:56)
[2019-09-27] MEDS: LIDOCAINE 5% TOPICAL PATCH TP SCH (10:58)
[2019-09-27] MEDS: URSODIOL 300 MG CAPSULE PO SCH ×2 (10:58→21:57)
[2019-09-27] MEDS: POLYETHYLENE GLYCOL 3350 119 GM BTL PO SCH ×2 (10:59→21:57)
[2019-09-27] MEDS: TAMSULOSIN HCL 0.4 MG CAP PO SCH (10:59)
--- NOTE | 2019-09-27 11:43 | PN ---
Progress Note, Physician History of Present Illness: pulmonary awake,mildly dyspneic,-cp - Current Medication List Current Medications: Active Medications Acetaminophen (Tylenol -) 650 mg PO Q6H PRN PRN Reason: FEVER OR PAIN LEVEL 1 - 3 Amlodipine Besylate (Norvasc -) 5 mg PO DAILY [facility] Last Admin: 09/27/19 10:55 Dose: 5 mg Apixaban (Eliquis -) 5 mg PO BID [facility] Last Admin: 09/27/19 10:55 Dose: 5 mg Aspirin (Ecotrin -) 81 mg PO DAILY [facility] Last Admin: 09/27/19 10:55 Dose: 81 mg Atorvastatin Calcium (Lipitor -) 40 mg PO HS [facility] Last Admin: 09/26/19 22:57 Dose: 40 mg Benzocaine/Menthol (Cepacol Lozenge -) 1 each MM PRN PRN PRN Reason: SORE THROAT Last Admin: 09/24/19 11:43 Dose: 1 each Chlorhexidine Gluconate (Hibiclens For Decolonization -) 1 applic TP HS [facility] Last Admin: 09/26/19 22:59 Dose: Not Given Colchicine (Colcrys) 0.6 mg PO DAILY [facility] Colchicine (Colcrys) 1.2 mg PO ONCE ONE Stop: 09/27/19 10:44 Diltiazem HCl (Cardizem Cd -) 120 mg PO DAILY [facility] Last Admin: 09/27/19 10:58 Dose: 120 mg Duloxetine HCl (Cymbalta -) 40 mg PO DAILY [facility] Last Admin: 09/27/19 10:55 Dose: 40 mg Gabapentin (Neurontin -) 300 mg PO TID [facility] Last Admin: 09/27/19 05:50 Dose: Not Given Piperacillin Sod/Tazobactam (Sod 3.375 gm/ Dextrose) 50 mls @ 100 mls/hr IVPB Q8H-IV [facility]; Protocol Last Admin: 09/27/19 10:54 Dose: 100 mls/hr Insulin Aspart (Novolog Vial Sliding Scale -) 1 vial SQ ACHS [facility]; Protocol Last Admin: 09/27/19 11:29 Dose: 6 units Insulin Detemir (Levemir Vial) 10 units SQ 0700 [facility] Last Admin: 09/27/19 06:37 Dose: Not Given Lidocaine (Lidoderm Patch -) 1 patch TP DAILY [facility] Last Admin: 09/27/19 10:58 Dose: 1 patch Melatonin (Melatonin) 5 mg PO HS PRN PRN Reason: INSOMNIA Last Admin: 09/26/19 23:11 Dose: 5 mg Methylprednisolone Sodium Succinate (Solu-Medrol -) 40 mg IVPB Q12H [facility] Last Admin: 09/27/19 10:54 Dose: 40 mg Metoprolol Succinate (Toprol Xl -) 50 mg PO DAILY [facility] Last Admin: 09/27/19 11:02 Dose: 50 mg Miscellaneous (Lidoderm Patch Removal) 1 each MC DAILY@2200 [facility] Last Admin: 09/26/19 22:59 Dose: 1 each Multivitamins/Minerals/Vitamin C (Tab-A-Vit -) 1 tab PO DAILY [facility] Last Admin: 09/27/19 10:55 Dose: 1 tab Pantoprazole Sodium (Protonix Iv) 40 mg IVPUSH DAILY [facility] Last Admin: 09/27/19 10:54 Dose: 40 mg Polyethylene Glycol (Miralax (For Daily Use) -) 17 gm PO BID [facility] Last Admin: 09/27/19 10:59 Dose: Not Given Senna/Docusate Sodium (Pericolace -) 1 tablet PO BID [facility] Last Admin: 09/27/19 10:55 Dose: 1 tablet Tamsulosin HCl (Flomax -) 0.4 mg PO DAILY@0830 [facility] Last Admin: 09/27/19 10:59 Dose: 0.4 mg Trazodone HCl (Desyrel -) 50 mg PO HS [facility] Last Admin: 09/26/19 22:57 Dose: 50 mg Ursodiol (Actigal -) 300 mg PO BID [facility] Last Admin: 09/27/19 10:58 Dose: 300 mg - Objective Vital Signs: Vital Signs Temperature 98.2 F 09/27/19 09:01 Pulse Rate 78 09/27/19 09:01 Respiratory Rate 22 H 09/27/19 09:01 Blood Pressure 135/67 09/27/19 09:01 O2 Sat by Pulse Oximetry (%) 98 09/27/19 09:01 Constitutional: Yes: Well Nourished, Obese (mildly dyspneic) Eyes: Yes: WNL HENT: Yes: WNL Neck: Yes: WNL Cardiovascular: Yes: Pulse Irregular, S1, S2 Respiratory: Yes: Diminished Gastrointestinal: Yes: Normal Bowel Sounds, Soft Extremities: Yes: WNL Edema: Yes Labs: CBC, BMP 09/27/19 06:30 09/27/19 06:30 INR, PTT INR 3.09 (0.83-1.09) H 09/20/19 22:24 Problem List - Problems (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 - OSTEITIS DEFORMANS OF UNSPECIFIED BONE (2) Pneumonia Code(s): J18.9 - PNEUMONIA, UNSPECIFIED ORGANISM Qualifiers: Pneumonia type: due to unspecified organism Laterality: left Lung location: lower lobe of lung Qualified Code(s): J18.9 - Pneumonia, unspecified organism (3) BEKA (acute kidney injury) Code(s): N17.9 - ACUTE KIDNEY FAILURE, UNSPECIFIED (4) Atrial fibrillation Code(s): I48.91 - UNSPECIFIED ATRIAL FIBRILLATION (5) CHF (congestive heart failure) Code(s): I50.9 - HEART FAILURE, UNSPECIFIED Qualifiers: Heart failure type: unspecified Heart failure chronicity: chronic Qualified Code(s): I50.9 - Heart failure, unspecified (6) Diabetes Code(s): E11.9 - TYPE 2 DIABETES MELLITUS WITHOUT COMPLICATIONS Qualifiers: Diabetes mellitus type: other specified (including TAN) Diabetes mellitus intermediate insulin use: unspecified salvage determiner insulin use status Diabetes mellitus complication status: with other specified complication Qualified Code (s): E13.69 - Other specified diabetes mellitus with other specified complication (7) Extremity pain Code(s): M79.609 - PAIN IN UNSPECIFIED LIMB (8) Shortness of breath Code(s): R06.02 - SHORTNESS OF BREATH (9) Symptomatic anemia Code(s): D64.9 - ANEMIA, UNSPECIFIED (10) Systolic CHF Code(s): I50.20 - UNSPECIFIED SYSTOLIC (CONGESTIVE) HEART FAILURE (11) Acute on chronic respiratory failure with hypoxia and hypercapnia Code(s): J96.21 - ACUTE AND CHRONIC RESPIRATORY FAILURE WITH HYPOXIA; J96.22 - ACUTE AND CHRONIC RESPIRATORY FAILURE WITH HYPERCAPNIA Assessment/Plan ASSESSMENT AND PLAN: Acute Hypoxic and Hypercapneic Respiratory Failure Acute Pulmonary Edema Acute on Chronic Diastolic Heart Failure Atrial Fibrillation with RVR r/o Pneumonia UTI Acute Kidney Injury COPD Paget's Disease DM Anemia - Rate control as per Cardiology - Lasix as tolerated - BiPAP as needed to assist in work of breathing - O2 to keep SpO2 >90% - antibiotics per ID - Medrol taper - Inhaled bronchodilators - anticoagulation - f/u chest- x-rays DR CARPENTER
--- NOTE | 2019-09-27 12:21 | PN ---
Progress Note (short form) - Note Progress Note: Renal follow up for BEKA Pt seen and examined at the bedside awake and alert feels better still feels weak no sob, chest pain, abd pain tolerating oral diet Vital Signs Temperature 98.2 F 09/27/19 09:01 Pulse Rate 78 09/27/19 09:01 Respiratory Rate 22 H 09/27/19 09:01 Blood Pressure 135/67 09/27/19 09:01 O2 Sat by Pulse Oximetry (%) 98 09/27/19 09:01 Intake & Output 09/24/19 09/25/19 09/26/19 09/27/19 23:59 23:59 23:59 23:59 Intake Total 340 370 470 70 Balance 340 370 470 70 Mild distress from pain neck supple, no JVD RRR, no M/R CTA (anterior examination) soft, obese, NT/ND no bladder distension + edema in LE + left ankle pain CBC, BMP 09/27/19 06:30 09/27/19 06:30 Current Medications Acetaminophen (Tylenol -) 650 mg PO Q6H PRN PRN Reason: FEVER OR PAIN LEVEL 1 - 3 Amlodipine Besylate (Norvasc -) 5 mg PO DAILY [facility] Last Admin: 09/27/19 10:55 Dose: 5 mg Apixaban (Eliquis -) 5 mg PO BID [facility] Last Admin: 09/27/19 10:55 Dose: 5 mg Aspirin (Ecotrin -) 81 mg PO DAILY [facility] Last Admin: 09/27/19 10:55 Dose: 81 mg Atorvastatin Calcium (Lipitor -) 40 mg PO HS [facility] Last Admin: 09/26/19 22:57 Dose: 40 mg Benzocaine/Menthol (Cepacol Lozenge -) 1 each MM PRN PRN PRN Reason: SORE THROAT Last Admin: 09/24/19 11:43 Dose: 1 each Chlorhexidine Gluconate (Hibiclens For Decolonization -) 1 applic TP HS [facility] Last Admin: 09/26/19 22:59 Dose: Not Given Colchicine (Colcrys) 0.6 mg PO DAILY [facility] Colchicine (Colcrys) 1.2 mg PO ONCE ONE Stop: 09/27/19 10:44 Diltiazem HCl (Cardizem Cd -) 120 mg PO DAILY [facility] Last Admin: 09/27/19 10:58 Dose: 120 mg Duloxetine HCl (Cymbalta -) 40 mg PO DAILY [facility] Last Admin: 09/27/19 10:55 Dose: 40 mg Gabapentin (Neurontin -) 300 mg PO TID [facility] Last Admin: 09/27/19 05:50 Dose: Not Given Piperacillin Sod/Tazobactam (Sod 3.375 gm/ Dextrose) 50 mls @ 100 mls/hr IVPB Q8H-IV [facility]; Protocol Last Admin: 09/27/19 10:54 Dose: 100 mls/hr Insulin Aspart (Novolog Vial Sliding Scale -) 1 vial SQ ACHS [facility]; Protocol Last Admin: 09/27/19 11:29 Dose: 6 units Insulin Detemir (Levemir Vial) 10 units SQ 0700 [facility] Last Admin: 09/27/19 06:37 Dose: Not Given Lidocaine (Lidoderm Patch -) 1 patch TP DAILY [facility] Last Admin: 09/27/19 10:58 Dose: 1 patch Melatonin (Melatonin) 5 mg PO HS PRN PRN Reason: INSOMNIA Last Admin: 09/26/19 23:11 Dose: 5 mg Methylprednisolone Sodium Succinate (Solu-Medrol -) 40 mg IVPB Q12H [facility] Last Admin: 09/27/19 10:54 Dose: 40 mg Metoprolol Succinate (Toprol Xl -) 50 mg PO DAILY [facility] Last Admin: 09/27/19 11:02 Dose: 50 mg Miscellaneous (Lidoderm Patch Removal) 1 each MC DAILY@2200 [facility] Last Admin: 09/26/19 22:59 Dose: 1 each Multivitamins/Minerals/Vitamin C (Tab-A-Vit -) 1 tab PO DAILY [facility] Last Admin: 09/27/19 10:55 Dose: 1 tab Pantoprazole Sodium (Protonix Iv) 40 mg IVPUSH DAILY [facility] Last Admin: 09/27/19 10:54 Dose: 40 mg Polyethylene Glycol (Miralax (For Daily Use) -) 17 gm PO BID [facility] Last Admin: 09/27/19 10:59 Dose: Not Given Senna/Docusate Sodium (Pericolace -) 1 tablet PO BID [facility] Last Admin: 09/27/19 10:55 Dose: 1 tablet Tamsulosin HCl (Flomax -) 0.4 mg PO DAILY@0830 [facility] Last Admin: 09/27/19 10:59 Dose: 0.4 mg Trazodone HCl (Desyrel -) 50 mg PO HS [facility] Last Admin: 09/26/19 22:57 Dose: 50 mg Ursodiol (Actigal -) 300 mg PO BID [facility] Last Admin: 09/27/19 10:58 Dose: 300 mg 78 year old gentleman with history of CHF with reduced LVEF, Afib, Anemia and DM with recent admission for gross hematuria and BEKA now presents with diffuse body pain and joint pain with BEKA. 1. Acute kidney injury now resolved 2. Joint pains 3. CHF with reduced LVEF 4. Leukocytosis 5. Anemia Renal function improved and stable no overt electrolyte or acid/base base disturbance continue antibiotics as per primary team Thank you Saul Diaz DO
[2019-09-27 13:27] LABS: ANISOCYTOSIS 2+; MACROCYTOSIS 1+; PLATELET ESTIMATE NORMAL
[2019-09-27] MEDS ORDERED: COLCHICINE 0.6 MG CAP PO ONE (18:30)
[2019-09-27] MEDS: CHLORHEXIDINE GLUCONATE 4% CLEANSER FOR DECOLONIZATION TP SCH (21:57)
[2019-09-27] MEDS: traZODone HCL 50 MG TABLET (FP) PO SCH (21:57)
[2019-09-27] MEDS: LIDOCAINE PATCH REMOVAL MC SCH (21:57)
[2019-09-27] MEDS: ATORVASTATIN CA 40 MG TABLET (FP) PO SCH (21:57)
[2019-09-27] MEDS: MELATONIN 5 MG TABLETS PO PRN (22:58)
[2019-09-28] MEDS ORDERED: PIPERACILLIN/TAZOBACTAM 3.375 GM VIAL IVPB ONE ×3 (02:53→17:08)
[2019-09-28] MEDS ORDERED: DEXTROSE 5%-WATER - 50 ML IVPB ONE ×3 (02:53→17:08)
[2019-09-28] MEDS: PIPERACILLIN/TAZOB 3.375 GM 3.375 GM in DEXTROSE 5%-WATER - 50 ML IVPB SCH ×3 (03:00→17:08)
[2019-09-28] MEDS: GABAPENTIN 300 MG CAPSULE (FP) PO SCH ×3 (06:32→23:49)
[2019-09-28] MEDS: INSULIN (LEVEMIR) 100 UNITS/ML UNITS SQ SCH (06:37)
[2019-09-28] MEDS: INSULIN SLIDING SCALE (NOVOLOG) 1 VIAL SQ SCH ×4 (06:38→23:49)
[2019-09-28] MEDS ORDERED: INSULIN (LEVEMIR) 100 UNITS/ML UNITS SQ ONE (07:29)
[2019-09-28] MEDS ORDERED: INSULIN (NOVOLOG) ASPART 100 UNITS/ML 10ML VIAL ONE (07:29)
[2019-09-28] MEDS: TAMSULOSIN HCL 0.4 MG CAP PO SCH (09:03)
[2019-09-28] MEDS: PANTOPRAZOLE SODIUM 40 MG VIAL IVPUSH SCH (09:03)
[2019-09-28] MEDS: methylPREDNISolone NA SUCC 40 MG/1 ML VIAL IVPB SCH (09:03)
[2019-09-28] MEDS: COLCHICINE 0.6 MG CAP PO SCH (09:06)
[2019-09-28] MEDS: SENNOSIDES/DOCUSATE COMBO (SENNA PLUS) TABLET (UD) PO SCH ×2 (09:07→23:50)
[2019-09-28] MEDS: amLODIPine BESYLATE 5 MG TABLET (FP) PO SCH (09:08)
[2019-09-28] MEDS: ASPIRIN COATED 81 MG TABLET.EC PO SCH (09:08)
[2019-09-28] MEDS: DULoxetine HCL 20 MG CAPSULE.DR PO SCH (09:08)
[2019-09-28] MEDS: APIXABAN 5 MG TABLET PO SCH ×2 (09:08→23:48)
[2019-09-28] MEDS: MULTIVITAMINS (DAILY MVI) TABLET (FP) PO SCH (09:09)
[2019-09-28] MEDS: POLYETHYLENE GLYCOL 3350 119 GM BTL PO SCH ×2 (09:09→23:49)
[2019-09-28] MEDS: URSODIOL 300 MG CAPSULE PO SCH ×2 (09:13→23:46)
--- NOTE | 2019-09-28 10:21 | PN ---
Progress Note, Physician Chief Complaint: SOB UTI Anemia History of Present Illness: c/o generalized pain polyarticular arthritis with multiple joint swelling SOB on exertion Returned from ICU after episode of SVT's Now with possible cholecystitis Just returned from HIDA scan- results still pending - Current Medication List Current Medications: Active Medications Acetaminophen (Tylenol -) 650 mg PO Q6H PRN PRN Reason: FEVER OR PAIN LEVEL 1 - 3 Amlodipine Besylate (Norvasc -) 5 mg PO DAILY [facility] Last Admin: 09/28/19 09:08 Dose: 5 mg Apixaban (Eliquis -) 5 mg PO BID [facility] Last Admin: 09/28/19 09:08 Dose: 5 mg Aspirin (Ecotrin -) 81 mg PO DAILY [facility] Last Admin: 09/28/19 09:08 Dose: 81 mg Atorvastatin Calcium (Lipitor -) 40 mg PO HS [facility] Last Admin: 09/27/19 21:57 Dose: 40 mg Benzocaine/Menthol (Cepacol Lozenge -) 1 each MM PRN PRN PRN Reason: SORE THROAT Last Admin: 09/24/19 11:43 Dose: 1 each Chlorhexidine Gluconate (Hibiclens For Decolonization -) 1 applic TP HS [facility] Last Admin: 09/27/19 21:57 Dose: Not Given Colchicine (Colcrys) 0.6 mg PO DAILY [facility] Last Admin: 09/28/19 09:06 Dose: 0.6 mg Diltiazem HCl (Cardizem Cd -) 120 mg PO DAILY [facility] Last Admin: 09/28/19 09:08 Dose: 120 mg Duloxetine HCl (Cymbalta -) 40 mg PO DAILY [facility] Last Admin: 09/28/19 09:08 Dose: 40 mg Gabapentin (Neurontin -) 300 mg PO TID [facility] Last Admin: 09/28/19 06:32 Dose: 300 mg Piperacillin Sod/Tazobactam (Sod 3.375 gm/ Dextrose) 50 mls @ 100 mls/hr IVPB Q8H-IV [facility]; Protocol Last Admin: 09/28/19 09:10 Dose: 100 mls/hr Insulin Aspart (Novolog Vial Sliding Scale -) 1 vial SQ ACHS [facility]; Protocol Last Admin: 09/28/19 06:38 Dose: 6 units Insulin Detemir (Levemir Vial) 10 units SQ 0700 [facility] Last Admin: 09/28/19 06:37 Dose: 10 units Lidocaine (Lidoderm Patch -) 1 patch TP DAILY [facility] Last Admin: 09/27/19 10:58 Dose: 1 patch Melatonin (Melatonin) 5 mg PO HS PRN PRN Reason: INSOMNIA Last Admin: 09/27/19 22:58 Dose: 5 mg Methylprednisolone Sodium Succinate (Solu-Medrol -) 40 mg IVPB Q12H [facility] Last Admin: 09/28/19 09:03 Dose: 40 mg Metoprolol Succinate (Toprol Xl -) 50 mg PO DAILY [facility] Last Admin: 09/28/19 09:09 Dose: 50 mg Miscellaneous (Lidoderm Patch Removal) 1 each MC DAILY@2200 [facility] Last Admin: 09/27/19 21:57 Dose: 1 each Multivitamins/Minerals/Vitamin C (Tab-A-Vit -) 1 tab PO DAILY [facility] Last Admin: 09/28/19 09:09 Dose: 1 tab Pantoprazole Sodium (Protonix Iv) 40 mg IVPUSH DAILY [facility] Last Admin: 09/28/19 09:03 Dose: 40 mg Polyethylene Glycol (Miralax (For Daily Use) -) 17 gm PO BID [facility] Last Admin: 09/28/19 09:09 Dose: 17 grams Senna/Docusate Sodium (Pericolace -) 1 tablet PO BID [facility] Last Admin: 09/28/19 09:07 Dose: 1 tablet Tamsulosin HCl (Flomax -) 0.4 mg PO DAILY@0830 [facility] Last Admin: 09/28/19 09:03 Dose: 0.4 mg Trazodone HCl (Desyrel -) 50 mg PO HS [facility] Last Admin: 09/27/19 21:57 Dose: 50 mg Ursodiol (Actigal -) 300 mg PO BID [facility] Last Admin: 09/28/19 09:13 Dose: 300 mg - Objective Vital Signs: Vital Signs Temperature 97.0 F L 09/28/19 08:08 Pulse Rate 89 09/28/19 08:08 Respiratory Rate 20 09/28/19 08:14 Blood Pressure 124/66 09/28/19 08:08 O2 Sat by Pulse Oximetry (%) 98 09/28/19 08:14 Constitutional: Yes: Well Nourished, No Distress, Calm Cardiovascular: Yes: Regular Rate and Rhythm Respiratory: Yes: Regular Gastrointestinal: Yes: WNL, Normal Bowel Sounds, Soft, Abdomen, Obese Genitourinary: Yes: Incontinence Musculoskeletal: Yes: Joint Swelling (Multiple), Muscle Pain Extremities: Yes: WNL Edema: No Peripheral Pulses WNL: Yes Neurological: Yes: Alert, Oriented Psychiatric: Yes: Alert, Oriented Labs: CBC, BMP 09/27/19 06:30 09/27/19 06:30 INR, PTT INR 3.09 (0.83-1.09) H 09/20/19 22:24 Problem List - Problems (1) Leukocytosis Assessment/Plan: -monitor trend -Seen by ID -Cultures: Microbiology 09/21/19 00:00 Blood - Peripheral Venous Blood Culture - Preliminary NO GROWTH OBTAINED AFTER 72 HOURS, INCUBATION TO CONTINUE FOR 2 DAYS. 09/21/19 00:00 Blood - Peripheral Venous Blood Culture - Preliminary NO GROWTH OBTAINED AFTER 72 HOURS, INCUBATION TO CONTINUE FOR 2 DAYS. 09/21/19 18:00 Synovial Fluid - Knee Gram Stain - Final 09/21/19 18:00 Synovial Fluid - Knee Body Fluid Culture - Preliminary NO AEROBIC GROWTH, 24 HRS 09/22/19 19:45 Urine For Antigen Detection Legionella Antigen - Final 09/22/19 19:45 Urine For Antigen Detection Streptococcus pneumoniae Antigen (M - Final 09/21/19 18:40 Nares - Mrsa Screen - Right MRSA Screen - Final NO MRSA ISOLATED 09/21/19 18:40 Nares - Mrsa Screen - Left MRSA Screen - Final NO MRSA ISOLATED 09/21/19 00:28 Urine - Urine - Catheterized Urine Culture - Final NO GROWTH OBTAINED -Tylenol for fever>100.0F -IV Zosyn Problems reviewed: Yes Code(s): D72.829 - ELEVATED WHITE BLOOD CELL COUNT, UNSPECIFIED Qualifiers: Leukocytosis type: unspecified Qualified Code(s): D72.829 - Elevated white blood cell count, unspecified (2) Paget's bone disease Assessment/Plan: -Hematology consult Problems reviewed: Yes Code(s): M88.9 - OSTEITIS DEFORMANS OF UNSPECIFIED BONE (3) Pneumonia Assessment/Plan: -CXR negative for infiltrates -Pulmonary consult -Bronchodilators -Nasal O2 to keep SpO2>90% -CT chest BLLL infiltrates -ID on board -On IV Zosyn -Legionella negative Problems reviewed: Yes Code(s): J18.9 - PNEUMONIA, UNSPECIFIED ORGANISM Qualifiers: Pneumonia type: due to unspecified organism Laterality: left Lung location: lower lobe of lung Qualified Code(s): J18.9 - Pneumonia, unspecified organism (4) BEKA (acute kidney injury) Assessment/Plan: -acute on chronic renal insufficiency -Nephrology consult -Monitor trend -Renal US without signs of obstruction Problems reviewed: Yes Code(s): N17.9 - ACUTE KIDNEY FAILURE, UNSPECIFIED (5) Anemia Assessment/Plan: -Chronic, multifactorial -Iron deficiency in the past -Iron levels high now, will hold iron supplement Problems reviewed: Yes Code(s): D64.9 - ANEMIA, UNSPECIFIED Qualifiers: Anemia type: iron deficiency (6) Atrial fibrillation Assessment/Plan: -paroxysmal -chronic -On eliquis 5 mg po bid Problems reviewed: Yes Code(s): I48.91 - UNSPECIFIED ATRIAL FIBRILLATION (7) BPH (benign prostatic hyperplasia) Assessment/Plan: -On tamsulosin -Seen by Dr Omar Friedman in the past Problems reviewed: Yes Code(s): N40.0 - BENIGN PROSTATIC HYPERPLASIA WITHOUT LOWER URINRY TRACT SYMP (8) Diabetes Assessment/Plan: -Last A1c at 6.4 -BGM AC HS because of medrol -Diabetic low sodium diet Problems reviewed: Yes Code(s): E11.9 - TYPE 2 DIABETES MELLITUS WITHOUT COMPLICATIONS Qualifiers: Diabetes mellitus type: other specified (including TAN) Diabetes mellitus intermediate card tender insulin use: unspecified penitentiary insulin use status Diabetes mellitus complication status: with other specified complication Qualified Code (s): E13.69 - Other specified diabetes mellitus with other specified complication (9) UTI (urinary tract infection) Assessment/Plan: -UA + nitrites -UC negative Problems reviewed: Yes Code(s): N39.0 - URINARY TRACT INFECTION, SITE NOT SPECIFIED (10) Polyarthralgia Assessment/Plan: -Rheumatology consult -Uric acid normal -ESR, CRP elevated -medrol IV Q8H -Acetaminophen 650 mg Q4H PRN for pain 1-3 or fever>100.0 F -Oxycodone 5 mg Q4H PRN for pain 4-6 -Morphine 2 mg q4h PRN for pain 7-10 -Miralax BID + colace 300 mg po HS for bowel regimen -Started colchicine 0.6 mg po daily- maggy better controlled Problems reviewed: Yes Code(s): M25.50 - PAIN IN UNSPECIFIED JOINT (11) Acute cholecystitis Assessment/Plan: -Seen by Surgery -Awaiting HIDA Scan results -PPI Problems reviewed: Yes Code(s): K81.0 - ACUTE CHOLECYSTITIS (12) SVT (supraventricular tachycardia) Assessment/Plan: -rate controlled now -On Diltiazem -d/c tele Problems reviewed: Yes Code(s): I47.1 - SUPRAVENTRICULAR TACHYCARDIA Assessment/Plan see problem list
--- NOTE | 2019-09-28 10:48 | PN ---
Progress Note, Physician - Current Medication List Current Medications: Active Medications Acetaminophen (Tylenol -) 650 mg PO Q6H PRN PRN Reason: FEVER OR PAIN LEVEL 1 - 3 Amlodipine Besylate (Norvasc -) 5 mg PO DAILY [facility] Last Admin: 09/28/19 09:08 Dose: 5 mg Apixaban (Eliquis -) 5 mg PO BID [facility] Last Admin: 09/28/19 09:08 Dose: 5 mg Aspirin (Ecotrin -) 81 mg PO DAILY [facility] Last Admin: 09/28/19 09:08 Dose: 81 mg Atorvastatin Calcium (Lipitor -) 40 mg PO HS [facility] Last Admin: 09/27/19 21:57 Dose: 40 mg Benzocaine/Menthol (Cepacol Lozenge -) 1 each MM PRN PRN PRN Reason: SORE THROAT Last Admin: 09/24/19 11:43 Dose: 1 each Chlorhexidine Gluconate (Hibiclens For Decolonization -) 1 applic TP HS [facility] Last Admin: 09/27/19 21:57 Dose: Not Given Colchicine (Colcrys) 0.6 mg PO DAILY [facility] Last Admin: 09/28/19 09:06 Dose: 0.6 mg Diltiazem HCl (Cardizem Cd -) 120 mg PO DAILY [facility] Last Admin: 09/28/19 09:08 Dose: 120 mg Duloxetine HCl (Cymbalta -) 40 mg PO DAILY [facility] Last Admin: 09/28/19 09:08 Dose: 40 mg Gabapentin (Neurontin -) 300 mg PO TID [facility] Last Admin: 09/28/19 06:32 Dose: 300 mg Piperacillin Sod/Tazobactam (Sod 3.375 gm/ Dextrose) 50 mls @ 100 mls/hr IVPB Q8H-IV [facility]; Protocol Last Admin: 09/28/19 09:10 Dose: 100 mls/hr Insulin Aspart (Novolog Vial Sliding Scale -) 1 vial SQ ACHS [facility]; Protocol Last Admin: 09/28/19 06:38 Dose: 6 units Insulin Detemir (Levemir Vial) 10 units SQ 0700 [facility] Last Admin: 09/28/19 06:37 Dose: 10 units Lidocaine (Lidoderm Patch -) 1 patch TP DAILY [facility] Last Admin: 09/27/19 10:58 Dose: 1 patch Melatonin (Melatonin) 5 mg PO HS PRN PRN Reason: INSOMNIA Last Admin: 09/27/19 22:58 Dose: 5 mg Methylprednisolone Sodium Succinate (Solu-Medrol -) 40 mg IVPB Q12H [facility] Last Admin: 09/28/19 09:03 Dose: 40 mg Metoprolol Succinate (Toprol Xl -) 50 mg PO DAILY [facility] Last Admin: 09/28/19 09:09 Dose: 50 mg Miscellaneous (Lidoderm Patch Removal) 1 each MC DAILY@2200 [facility] Last Admin: 09/27/19 21:57 Dose: 1 each Multivitamins/Minerals/Vitamin C (Tab-A-Vit -) 1 tab PO DAILY [facility] Last Admin: 09/28/19 09:09 Dose: 1 tab Pantoprazole Sodium (Protonix Iv) 40 mg IVPUSH DAILY [facility] Last Admin: 09/28/19 09:03 Dose: 40 mg Polyethylene Glycol (Miralax (For Daily Use) -) 17 gm PO BID [facility] Last Admin: 09/28/19 09:09 Dose: 17 grams Senna/Docusate Sodium (Pericolace -) 1 tablet PO BID [facility] Last Admin: 09/28/19 09:07 Dose: 1 tablet Tamsulosin HCl (Flomax -) 0.4 mg PO DAILY@0830 [facility] Last Admin: 09/28/19 09:03 Dose: 0.4 mg Trazodone HCl (Desyrel -) 50 mg PO HS [facility] Last Admin: 09/27/19 21:57 Dose: 50 mg Ursodiol (Actigal -) 300 mg PO BID [facility] Last Admin: 09/28/19 09:13 Dose: 300 mg - Objective Vital Signs: Vital Signs Temperature 97.0 F L 09/28/19 08:08 Pulse Rate 89 09/28/19 08:08 Respiratory Rate 20 09/28/19 08:14 Blood Pressure 124/66 09/28/19 08:08 O2 Sat by Pulse Oximetry (%) 98 09/28/19 08:14 Eyes: Yes: WNL, Conjunctiva Clear, EOM Intact HENT: Yes: WNL, Atraumatic, Normocephalic Neck: Yes: WNL, Supple, Trachea Midline Cardiovascular: Yes: Pulse Irregular, S1, S2 Respiratory: Yes: WNL, Regular, CTA Bilaterally Gastrointestinal: Yes: WNL, Normal Bowel Sounds Genitourinary: Yes: WNL Musculoskeletal: Yes: WNL Extremities: Yes: WNL Edema: No Integumentary: Yes: WNL Neurological: Yes: WNL, Alert, Oriented ...Motor Strength: WNL Psychiatric: Yes: WNL Labs: CBC, BMP 09/27/19 06:30 09/27/19 06:30 INR, PTT INR 3.09 (0.83-1.09) H 09/20/19 22:24 Assessment/Plan - Problems (1) Dehydration Assessment/Plan: BUN/Cr improving off furosemide. Code(s): E86.0 - DEHYDRATION (2) Acute on chronic respiratory failure with hypoxia and hypercapnia Code(s): J96.21 - ACUTE AND CHRONIC RESPIRATORY FAILURE WITH HYPOXIA; J96.22 - ACUTE AND CHRONIC RESPIRATORY FAILURE WITH HYPERCAPNIA (3) Leukocytosis Code(s): D72.829 - ELEVATED WHITE BLOOD CELL COUNT, UNSPECIFIED Qualifiers: Leukocytosis type: unspecified Qualified Code(s): D72.829 - Elevated white blood cell count, unspecified (4) Paget's bone disease Code(s): M88.9 - OSTEITIS DEFORMANS OF UNSPECIFIED BONE (5) Pneumonia Code(s): J18.9 - PNEUMONIA, UNSPECIFIED ORGANISM Qualifiers: Pneumonia type: due to unspecified organism Laterality: left Lung location: lower lobe of lung Qualified Code(s): J18.9 - Pneumonia, unspecified organism (6) Tachycardia Code(s): R00.0 - TACHYCARDIA, UNSPECIFIED (7) Depression Code(s): F32.9 - MAJOR DEPRESSIVE DISORDER, SINGLE EPISODE, UNSPECIFIED (8) Diabetes Code(s): E11.9 - TYPE 2 DIABETES MELLITUS WITHOUT COMPLICATIONS Qualifiers: Diabetes mellitus type: other specified (including TAN) Diabetes mellitus residential insulin use: unspecified pressroom foreman insulin use status Diabetes mellitus complication status: with other specified complication Qualified Code (s): E13.69 - Other specified diabetes mellitus with other specified complication (9) Diastolic CHF Code(s): I50.30 - UNSPECIFIED DIASTOLIC (CONGESTIVE) HEART FAILURE (10) HLD (hyperlipidemia) Code(s): E78.5 - HYPERLIPIDEMIA, UNSPECIFIED (11) Atrial fibrillation Assessment/Plan: Changed today to metoprolol and diltiazem long-acting agents. F/u BP and HR. Code(s): I48.91 - UNSPECIFIED ATRIAL FIBRILLATION
--- NOTE | 2019-09-28 10:57 | PN ---
Progress Note (short form) - Note Progress Note: NEUROLOGY PROGRESS: Events reviewed. Coverage note from Dr. Saenz read and appreciated. 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 PMHx: COPD on O2, HTN, HLD, CAD (s/p Stent), DM, CHF, Afib, Anemia, Prostate Ca , Paget's disease, Gout: on extensive list of medications. Had a fall OOB while at home requiring hospitalization and stay at [facility] for past 6 months. Gait decline for approximately this time, requiring walker. Also with associated PATEL. Recent admission here for pneumonia on antibiotics. Returns with "whole body pains and weakness" and SOB. Synovial analysis of L knee revealed +Crystals and on IV Medrol. Stay complicated by hypoxia, atrial fibrillation, and dropping H/H requiring brief ICU stay. He received 1 PRBC, started on IV Zoysn and rhythm cardioverted and put on BIPAP. Then returned to and asked to be evaluated for B/L L/E weakness. S/P HIDA scan in evaluation of possible cholecystitis. Mr. Orozco reports he has not ambulated to chair since admission and requires two people for assistance in standing. In his previous admission, he reports he was able to ambulate with a walker with one assist. WBC- 15.8K; H/H 9.2/29.5; CK=11; ESR 140-> 74; CRP 41.6-> 71.7; UA 11/3 Urine WBC= 67; Lyme titres neg GRETEL: Obese. Cor irregular. No bruits. Neck supple. R hand and wrist bandaged. Swollen joints in hand. Wearing diaper- with red melana noted. NEURO: Awake, alert, responsive. Speech fluent but hypophonic. [facility]. 1988. [place]UMP. CNII-CNXII: Sl Masked. EOM's full. Full casillas. No facial. Gag ok. Motor: No drift. Weak R grasp. Decreased SPRING's R > L. Min cogwheeling R > L. Strength proximally and distally otherwise normal. Reflexes normal in arms, reduced at KJ's and absent AJ's. Plantars downgoing. Coordination: No FTN dystaxia. Sensation: Reduced vibration toes Gait: Pt declines at this time. Impression: Mild B/L Cerebral Dysfunction (OMS, chronic) Multifactorial gait dysfunction with contributions of: 1. Peripheral Neuropathy c/w DM 2. R/O autoimmune contribution especially systemic vasculitis contributing to axonal peripheral neuropathy. 3. Mild extrapyramidal features 4. Worsened by Toxic-Metabolic Encephalopathy 5. Early disuse atrophy/ steroid myopathy (both c/w Normal CK) Suggest: Cont gentle hydration and IV antibiotics Cont IV Medrol and as soon as possible. Follow H/H. R/O GI bleed. Physiatry consult. EMG/NCS of R arm and leg Mobilize pt OOB to chair for meals and aggressive bedside PT. Thank you very much, Ren Hatfield MD
--- NOTE | 2019-09-28 11:05 | PN ---
Progress Note, Physician History of Present Illness: pulmonary awake,mildly dyspneic,-resp distress - Current Medication List Current Medications: Active Medications Acetaminophen (Tylenol -) 650 mg PO Q6H PRN PRN Reason: FEVER OR PAIN LEVEL 1 - 3 Amlodipine Besylate (Norvasc -) 5 mg PO DAILY [facility] Last Admin: 09/28/19 09:08 Dose: 5 mg Apixaban (Eliquis -) 5 mg PO BID [facility] Last Admin: 09/28/19 09:08 Dose: 5 mg Aspirin (Ecotrin -) 81 mg PO DAILY [facility] Last Admin: 09/28/19 09:08 Dose: 81 mg Atorvastatin Calcium (Lipitor -) 40 mg PO HS [facility] Last Admin: 09/27/19 21:57 Dose: 40 mg Benzocaine/Menthol (Cepacol Lozenge -) 1 each MM PRN PRN PRN Reason: SORE THROAT Last Admin: 09/24/19 11:43 Dose: 1 each Chlorhexidine Gluconate (Hibiclens For Decolonization -) 1 applic TP HS [facility] Last Admin: 09/27/19 21:57 Dose: Not Given Colchicine (Colcrys) 0.6 mg PO DAILY [facility] Last Admin: 09/28/19 09:06 Dose: 0.6 mg Diltiazem HCl (Cardizem Cd -) 120 mg PO DAILY [facility] Last Admin: 09/28/19 09:08 Dose: 120 mg Duloxetine HCl (Cymbalta -) 40 mg PO DAILY [facility] Last Admin: 09/28/19 09:08 Dose: 40 mg Gabapentin (Neurontin -) 300 mg PO TID [facility] Last Admin: 09/28/19 06:32 Dose: 300 mg Piperacillin Sod/Tazobactam (Sod 3.375 gm/ Dextrose) 50 mls @ 100 mls/hr IVPB Q8H-IV [facility]; Protocol Last Admin: 09/28/19 09:10 Dose: 100 mls/hr Insulin Aspart (Novolog Vial Sliding Scale -) 1 vial SQ ACHS [facility]; Protocol Last Admin: 09/28/19 06:38 Dose: 6 units Insulin Detemir (Levemir Vial) 10 units SQ 0700 [facility] Last Admin: 09/28/19 06:37 Dose: 10 units Lidocaine (Lidoderm Patch -) 1 patch TP DAILY [facility] Last Admin: 09/27/19 10:58 Dose: 1 patch Melatonin (Melatonin) 5 mg PO HS PRN PRN Reason: INSOMNIA Last Admin: 09/27/19 22:58 Dose: 5 mg Methylprednisolone Sodium Succinate (Solu-Medrol -) 40 mg IVPB Q12H [facility] Last Admin: 09/28/19 09:03 Dose: 40 mg Metoprolol Succinate (Toprol Xl -) 50 mg PO DAILY [facility] Last Admin: 09/28/19 09:09 Dose: 50 mg Miscellaneous (Lidoderm Patch Removal) 1 each MC DAILY@2200 [facility] Last Admin: 09/27/19 21:57 Dose: 1 each Multivitamins/Minerals/Vitamin C (Tab-A-Vit -) 1 tab PO DAILY [facility] Last Admin: 09/28/19 09:09 Dose: 1 tab Pantoprazole Sodium (Protonix Iv) 40 mg IVPUSH DAILY [facility] Last Admin: 09/28/19 09:03 Dose: 40 mg Polyethylene Glycol (Miralax (For Daily Use) -) 17 gm PO BID [facility] Last Admin: 09/28/19 09:09 Dose: 17 grams Senna/Docusate Sodium (Pericolace -) 1 tablet PO BID [facility] Last Admin: 09/28/19 09:07 Dose: 1 tablet Tamsulosin HCl (Flomax -) 0.4 mg PO DAILY@0830 [facility] Last Admin: 09/28/19 09:03 Dose: 0.4 mg Trazodone HCl (Desyrel -) 50 mg PO HS [facility] Last Admin: 09/27/19 21:57 Dose: 50 mg Ursodiol (Actigal -) 300 mg PO BID [facility] Last Admin: 09/28/19 09:13 Dose: 300 mg - Objective Vital Signs: Vital Signs Temperature 97.0 F L 09/28/19 08:08 Pulse Rate 89 09/28/19 08:08 Respiratory Rate 20 09/28/19 08:14 Blood Pressure 124/66 09/28/19 08:08 O2 Sat by Pulse Oximetry (%) 98 09/28/19 08:14 Constitutional: Yes: Calm, Obese Eyes: Yes: WNL HENT: Yes: WNL Neck: Yes: WNL Cardiovascular: Yes: Pulse Irregular, S1, S2 Respiratory: Yes: Diminished Gastrointestinal: Yes: Normal Bowel Sounds, Soft Extremities: Yes: WNL Edema: Yes Labs: CBC, BMP 09/27/19 06:30 09/27/19 06:30 INR, PTT INR 3.09 (0.83-1.09) H 09/20/19 22:24 Problem List - Problems (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 - OSTEITIS DEFORMANS OF UNSPECIFIED BONE (2) Pneumonia Code(s): J18.9 - PNEUMONIA, UNSPECIFIED ORGANISM Qualifiers: Qualified Code(s): J18.9 - Pneumonia, unspecified organism (3) BEKA (acute kidney injury) Code(s): N17.9 - ACUTE KIDNEY FAILURE, UNSPECIFIED (4) Atrial fibrillation Code(s): I48.91 - UNSPECIFIED ATRIAL FIBRILLATION (5) CHF (congestive heart failure) Code(s): I50.9 - HEART FAILURE, UNSPECIFIED Qualifiers: Qualified Code(s): I50.9 - Heart failure, unspecified (6) Diabetes Code(s): E11.9 - TYPE 2 DIABETES MELLITUS WITHOUT COMPLICATIONS Qualifiers: Qualified Code(s): E13.69 - Other specified diabetes mellitus with other specified complication (7) Extremity pain Code(s): M79.609 - PAIN IN UNSPECIFIED LIMB (8) Shortness of breath Code(s): R06.02 - SHORTNESS OF BREATH (9) Symptomatic anemia Code(s): D64.9 - ANEMIA, UNSPECIFIED (10) Systolic CHF Code(s): I50.20 - UNSPECIFIED SYSTOLIC (CONGESTIVE) HEART FAILURE (11) Acute on chronic respiratory failure with hypoxia and hypercapnia Code(s): J96.21 - ACUTE AND CHRONIC RESPIRATORY FAILURE WITH HYPOXIA; J96.22 - ACUTE AND CHRONIC RESPIRATORY FAILURE WITH HYPERCAPNIA Assessment/Plan ASSESSMENT AND PLAN: Acute Hypoxic and Hypercapneic Respiratory Failure Acute Pulmonary Edema Acute on Chronic Diastolic Heart Failure Atrial Fibrillation with RVR r/o Pneumonia UTI Acute Kidney Injury COPD Paget's Disease DM Anemia - Rate control as per Cardiology - Lasix as tolerated - BiPAP as needed to assist in work of breathing - O2 to keep SpO2 >90% - antibiotics per ID - Medrol taper - Inhaled bronchodilators - anticoagulation - f/u chest- x-rays DR CARPENTER
[2019-09-28] MEDS: LIDOCAINE 5% TOPICAL PATCH TP SCH (12:58)
[2019-09-28] MEDS ORDERED: traMADol HCL 50 MG TABLET PO ONE (23:47)
[2019-09-28] MEDS ORDERED: ZINC OXIDE 20% TOPICAL OINTMENT 30 GM TUBE TP ONE (23:47)
[2019-09-28] MEDS: traZODone HCL 50 MG TABLET (FP) PO SCH (23:48)
[2019-09-28] MEDS: CHLORHEXIDINE GLUCONATE 4% CLEANSER FOR DECOLONIZATION TP SCH (23:49)
[2019-09-28] MEDS: ATORVASTATIN CA 40 MG TABLET (FP) PO SCH (23:49)
[2019-09-28] MEDS: LIDOCAINE PATCH REMOVAL MC SCH (23:49)
[2019-09-28] MEDS: MELATONIN 5 MG TABLETS PO PRN (23:50)
[2019-09-29] MEDS ORDERED: DEXTROSE 5%-WATER - 50 ML IVPB ONE ×2 (02:05→10:00)
[2019-09-29] MEDS ORDERED: PIPERACILLIN/TAZOBACTAM 3.375 GM VIAL IVPB ONE ×2 (02:05→10:00)
[2019-09-29] MEDS: PIPERACILLIN/TAZOB 3.375 GM 3.375 GM in DEXTROSE 5%-WATER - 50 ML IVPB SCH ×2 (02:30→10:44)
[2019-09-29] MEDS: GABAPENTIN 300 MG CAPSULE (FP) PO SCH ×3 (07:08→21:21)
[2019-09-29] MEDS: INSULIN (LEVEMIR) 100 UNITS/ML UNITS SQ SCH (07:08)
[2019-09-29] MEDS: INSULIN SLIDING SCALE (NOVOLOG) 1 VIAL SQ SCH ×4 (07:09→22:03)
[2019-09-29] MEDS ORDERED: INSULIN (NOVOLOG) ASPART 100 UNITS/ML 10ML VIAL ONE (07:17)
[2019-09-29] MEDS ORDERED: INSULIN (LEVEMIR) 100 UNITS/ML UNITS SQ ONE (07:17)
--- NOTE | 2019-09-29 09:10 | PN ---
Progress Note, Physician Chief Complaint: Pt A&Ox3; no chest pain; used the Bipap mask overnight. Anxious. History of Present Illness: The patient is a year old black man with a past medical history of diabetes, diastolic CHF, afib, anemia, COPD, HTN,, HLD, polyarthritis, Paget's disease, who is here today from [facility] for evaluation of shortness of breath. The patient was recently discharged and was placed at [facility] where he was being treated with antibiotics for pneumonia. While at [facility] the patient was noted to be short of breath since yesterday. Patient denies headache, lightheadedness. Denies fever, chills. Denies chest pain, shortness of breath. Denies nausea, vomiting, diarrhea, abdominal pain. Allergies: NKA PCP: Jaz Mendieta - Current Medication List Current Medications: Active Medications Acetaminophen (Tylenol -) 650 mg PO Q6H PRN PRN Reason: FEVER OR PAIN LEVEL 1 - 3 Apixaban (Eliquis -) 5 mg PO BID [facility] Last Admin: 09/28/19 23:48 Dose: 5 mg Atorvastatin Calcium (Lipitor -) 40 mg PO HS [facility] Last Admin: 09/28/19 23:49 Dose: 40 mg Benzocaine/Menthol (Cepacol Lozenge -) 1 each MM PRN PRN PRN Reason: SORE THROAT Last Admin: 09/24/19 11:43 Dose: 1 each Chlorhexidine Gluconate (Hibiclens For Decolonization -) 1 applic TP HS [facility] Last Admin: 09/28/19 23:49 Dose: Not Given Colchicine (Colcrys) 0.6 mg PO DAILY [facility] Last Admin: 09/28/19 09:06 Dose: 0.6 mg Diltiazem HCl (Cardizem Cd -) 180 mg PO DAILY [facility] Duloxetine HCl (Cymbalta -) 40 mg PO DAILY [facility] Last Admin: 09/28/19 09:08 Dose: 40 mg Gabapentin (Neurontin -) 300 mg PO TID [facility] Last Admin: 09/29/19 07:08 Dose: 300 mg Piperacillin Sod/Tazobactam (Sod 3.375 gm/ Dextrose) 50 mls @ 100 mls/hr IVPB Q8H-IV [facility]; Protocol Last Admin: 09/29/19 02:30 Dose: 100 mls/hr Insulin Aspart (Novolog Vial Sliding Scale -) 1 vial SQ ACHS [facility]; Protocol Last Admin: 09/29/19 07:09 Dose: 2 units Insulin Detemir (Levemir Vial) 10 units SQ 0700 [facility] Last Admin: 09/29/19 07:08 Dose: 10 units Lidocaine (Lidoderm Patch -) 1 patch TP DAILY [facility] Last Admin: 09/28/19 12:58 Dose: 1 patch Melatonin (Melatonin) 5 mg PO HS PRN PRN Reason: INSOMNIA Last Admin: 09/28/19 23:50 Dose: 5 mg Methylprednisolone Sodium Succinate (Solu-Medrol -) 40 mg IVPUSH DAILY [facility] Metoprolol Succinate (Toprol Xl -) 50 mg PO DAILY [facility] Last Admin: 09/28/19 09:09 Dose: 50 mg Miscellaneous (Lidoderm Patch Removal) 1 each MC DAILY@2200 [facility] Last Admin: 09/28/19 23:49 Dose: 1 each Multivitamins/Minerals/Vitamin C (Tab-A-Vit -) 1 tab PO DAILY [facility] Last Admin: 09/28/19 09:09 Dose: 1 tab Pantoprazole Sodium (Protonix Iv) 40 mg IVPUSH DAILY [facility] Last Admin: 09/28/19 09:03 Dose: 40 mg Polyethylene Glycol (Miralax (For Daily Use) -) 17 gm PO BID [facility] Last Admin: 09/28/19 23:49 Dose: Not Given Senna/Docusate Sodium (Pericolace -) 1 tablet PO BID [facility] Last Admin: 09/28/19 23:50 Dose: Not Given Tamsulosin HCl (Flomax -) 0.4 mg PO DAILY@0830 [facility] Last Admin: 09/28/19 09:03 Dose: 0.4 mg Trazodone HCl (Desyrel -) 50 mg PO HS [facility] Last Admin: 09/28/19 23:48 Dose: 50 mg Ursodiol (Actigal -) 300 mg PO BID [facility] Last Admin: 09/28/19 23:46 Dose: 300 mg - Objective Vital Signs: Vital Signs Temperature 97.0 F L 09/29/19 07:12 Pulse Rate 88 09/29/19 07:12 Respiratory Rate 20 09/29/19 07:12 Blood Pressure 136/58 L 09/29/19 07:12 O2 Sat by Pulse Oximetry (%) 100 09/29/19 08:21 Constitutional: Yes: Anxious Eyes: Yes: WNL HENT: Yes: WNL Neck: Yes: WNL Cardiovascular: Yes: Pulse Irregular, S1 (varies in intensity) Respiratory: Yes: Tachypnea Gastrointestinal: Yes: Soft ...Rectal Exam: Yes: Deferred Genitourinary: No: Anuria Breast(s): Yes: WNL Musculoskeletal: Yes: Muscle Weakness Extremities: Yes: Cool Edema: No Peripheral Pulses WNL: Yes Integumentary: Yes: WNL Neurological: Yes: Alert, Oriented, Weakness Psychiatric: Yes: Alert, Oriented, Other (anxiety/depression) Labs: CBC, BMP 09/27/19 06:30 09/27/19 06:30 INR, PTT INR 3.09 (0.83-1.09) H 09/20/19 22:24 - ....Imaging Chest X-ray: Image Reviewed Problem List - Problems (1) Dehydration Assessment/Plan: BUN/Cr improving off furosemide. Hoever, if diuretic nseded for ongoing CHF, would start with low-dose (20 mg ) IV and monitor BUn/Cr, electrolytes, Is and OS, and daily weight carefully. Code(s): E86.0 - DEHYDRATION (2) Acute on chronic respiratory failure with hypoxia and hypercapnia Assessment/Plan: on Bipap nightly. Encourage physical and pulmonary rehabilitation. Code(s): J96.21 - ACUTE AND CHRONIC RESPIRATORY FAILURE WITH HYPOXIA; J96.22 - ACUTE AND CHRONIC RESPIRATORY FAILURE WITH HYPERCAPNIA (3) Leukocytosis Code(s): D72.829 - ELEVATED WHITE BLOOD CELL COUNT, UNSPECIFIED Qualifiers: Leukocytosis type: unspecified Qualified Code(s): D72.829 - Elevated white blood cell count, unspecified (4) Paget's bone disease Code(s): M88.9 - OSTEITIS DEFORMANS OF UNSPECIFIED BONE (5) Pneumonia Assessment/Plan: on antibitotics per ID. Code(s): J18.9 - PNEUMONIA, UNSPECIFIED ORGANISM Qualifiers: Pneumonia type: due to unspecified organism Laterality: left Lung location: lower lobe of lung Qualified Code(s): J18.9 - Pneumonia, unspecified organism (6) Depression Code(s): F32.9 - MAJOR DEPRESSIVE DISORDER, SINGLE EPISODE, UNSPECIFIED (7) Diabetes Code(s): E11.9 - TYPE 2 DIABETES MELLITUS WITHOUT COMPLICATIONS Qualifiers: Diabetes mellitus type: other specified (including TAN) Diabetes mellitus emt intermediate insulin use: unspecified emt intermediate insulin use status Diabetes mellitus complication status: with other specified complication Qualified Code (s): E13.69 - Other specified diabetes mellitus with other specified complication (8) Diastolic CHF Code(s): I50.30 - UNSPECIFIED DIASTOLIC (CONGESTIVE) HEART FAILURE (9) HLD (hyperlipidemia) Assessment/Plan: on statinj Code(s): E78.5 - HYPERLIPIDEMIA, UNSPECIFIED Qualifiers: Hyperlipidemia type: other hyperlipidemia Qualified Code(s): E78.49 - Other hyperlipidemia; E78.4 - Other hyperlipidemia (10) Atrial fibrillation Assessment/Plan: Brief periods of AF with RVR. Will increase diltiazem CD to 130 mg daily (and stop amlodipine, a 2nd calcium channel quirino). Continue metoprolol ER. Continue apixaban for anticoagulation (and stop ASA: increased risk of bleed; anemia; no hx UT, PCI). Code(s): I48.91 - UNSPECIFIED ATRIAL FIBRILLATION (11) NSVT (nonsustained ventricular tachycardia) Assessment/Plan: breif, nonsustanted runs during SVT/AF incident necessitatin ICU earlier this admission. ECHO: normal LVEF. On metoprolol and diltiazem. Maintain electrolytes.; control BP. Coronary artery evaluation when stable. Code(s): I47.2 - VENTRICULAR TACHYCARDIA
--- NOTE | 2019-09-29 10:31 | PN ---
Progress Note, Physician History of Present Illness: PULMONARY AWAKE,NO DISTRESS ON NASAL CANNULA - Current Medication List Current Medications: Active Medications Acetaminophen (Tylenol -) 650 mg PO Q6H PRN PRN Reason: FEVER OR PAIN LEVEL 1 - 3 Apixaban (Eliquis -) 5 mg PO BID [facility] Last Admin: 09/28/19 23:48 Dose: 5 mg Atorvastatin Calcium (Lipitor -) 40 mg PO HS [facility] Last Admin: 09/28/19 23:49 Dose: 40 mg Benzocaine/Menthol (Cepacol Lozenge -) 1 each MM PRN PRN PRN Reason: SORE THROAT Last Admin: 09/24/19 11:43 Dose: 1 each Chlorhexidine Gluconate (Hibiclens For Decolonization -) 1 applic TP HS [facility] Last Admin: 09/28/19 23:49 Dose: Not Given Colchicine (Colcrys) 0.6 mg PO DAILY [facility] Last Admin: 09/28/19 09:06 Dose: 0.6 mg Diltiazem HCl (Cardizem Cd -) 180 mg PO DAILY [facility] Duloxetine HCl (Cymbalta -) 40 mg PO DAILY [facility] Last Admin: 09/28/19 09:08 Dose: 40 mg Gabapentin (Neurontin -) 300 mg PO TID [facility] Last Admin: 09/29/19 07:08 Dose: 300 mg Piperacillin Sod/Tazobactam (Sod 3.375 gm/ Dextrose) 50 mls @ 100 mls/hr IVPB Q8H-IV [facility]; Protocol Last Admin: 09/29/19 02:30 Dose: 100 mls/hr Insulin Aspart (Novolog Vial Sliding Scale -) 1 vial SQ ACHS [facility]; Protocol Last Admin: 09/29/19 07:09 Dose: 2 units Insulin Detemir (Levemir Vial) 10 units SQ 0700 [facility] Last Admin: 09/29/19 07:08 Dose: 10 units Lidocaine (Lidoderm Patch -) 1 patch TP DAILY [facility] Last Admin: 09/28/19 12:58 Dose: 1 patch Melatonin (Melatonin) 5 mg PO HS PRN PRN Reason: INSOMNIA Last Admin: 09/28/19 23:50 Dose: 5 mg Methylprednisolone Sodium Succinate (Solu-Medrol -) 40 mg IVPUSH DAILY [facility] Metoprolol Succinate (Toprol Xl -) 50 mg PO DAILY [facility] Last Admin: 09/28/19 09:09 Dose: 50 mg Miscellaneous (Lidoderm Patch Removal) 1 each MC DAILY@2200 [facility] Last Admin: 09/28/19 23:49 Dose: 1 each Multivitamins/Minerals/Vitamin C (Tab-A-Vit -) 1 tab PO DAILY [facility] Last Admin: 09/28/19 09:09 Dose: 1 tab Pantoprazole Sodium (Protonix Iv) 40 mg IVPUSH DAILY [facility] Last Admin: 09/28/19 09:03 Dose: 40 mg Polyethylene Glycol (Miralax (For Daily Use) -) 17 gm PO BID [facility] Last Admin: 09/28/19 23:49 Dose: Not Given Senna/Docusate Sodium (Pericolace -) 1 tablet PO BID [facility] Last Admin: 09/28/19 23:50 Dose: Not Given Tamsulosin HCl (Flomax -) 0.4 mg PO DAILY@0830 [facility] Last Admin: 09/28/19 09:03 Dose: 0.4 mg Trazodone HCl (Desyrel -) 50 mg PO HS [facility] Last Admin: 09/28/19 23:48 Dose: 50 mg Ursodiol (Actigal -) 300 mg PO BID [facility] Last Admin: 09/28/19 23:46 Dose: 300 mg - Objective Vital Signs: Vital Signs Temperature 97.0 F L 09/29/19 07:12 Pulse Rate 88 09/29/19 07:12 Respiratory Rate 20 09/29/19 07:12 Blood Pressure 136/58 L 09/29/19 07:12 O2 Sat by Pulse Oximetry (%) 100 09/29/19 08:21 Constitutional: Yes: Well Nourished, Calm Eyes: Yes: WNL HENT: Yes: WNL Neck: Yes: WNL Cardiovascular: Yes: Pulse Irregular, S1, S2 Respiratory: Yes: Diminished Gastrointestinal: Yes: Normal Bowel Sounds, Soft Extremities: Yes: WNL Edema: No Labs: CBC, BMP 09/27/19 06:30 09/27/19 06:30 INR, PTT INR 3.09 (0.83-1.09) H 09/20/19 22:24 Problem List - Problems (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 - OSTEITIS DEFORMANS OF UNSPECIFIED BONE (2) Pneumonia Code(s): J18.9 - PNEUMONIA, UNSPECIFIED ORGANISM Qualifiers: Pneumonia type: due to unspecified organism Laterality: left Lung location: lower lobe of lung Qualified Code(s): J18.9 - Pneumonia, unspecified organism (3) BEKA (acute kidney injury) Code(s): N17.9 - ACUTE KIDNEY FAILURE, UNSPECIFIED (4) Atrial fibrillation Code(s): I48.91 - UNSPECIFIED ATRIAL FIBRILLATION (5) CHF (congestive heart failure) Code(s): I50.9 - HEART FAILURE, UNSPECIFIED Qualifiers: Heart failure type: unspecified Heart failure chronicity: chronic Qualified Code(s): I50.9 - Heart failure, unspecified (6) Diabetes Code(s): E11.9 - TYPE 2 DIABETES MELLITUS WITHOUT COMPLICATIONS Qualifiers: Diabetes mellitus type: other specified (including TAN) Diabetes mellitus fpc insulin use: unspecified fpc insulin use status Diabetes mellitus complication status: with other specified complication Qualified Code (s): E13.69 - Other specified diabetes mellitus with other specified complication (7) Extremity pain Code(s): M79.609 - PAIN IN UNSPECIFIED LIMB (8) Shortness of breath Code(s): R06.02 - SHORTNESS OF BREATH (9) Symptomatic anemia Code(s): D64.9 - ANEMIA, UNSPECIFIED (10) Systolic CHF Code(s): I50.20 - UNSPECIFIED SYSTOLIC (CONGESTIVE) HEART FAILURE (11) Acute on chronic respiratory failure with hypoxia and hypercapnia Code(s): J96.21 - ACUTE AND CHRONIC RESPIRATORY FAILURE WITH HYPOXIA; J96.22 - ACUTE AND CHRONIC RESPIRATORY FAILURE WITH HYPERCAPNIA Assessment/Plan ASSESSMENT AND PLAN: Acute Hypoxic and Hypercapneic Respiratory Failure IMPROVING Acute Pulmonary Edema IMPROVING Acute on Chronic Diastolic Heart Failure Atrial Fibrillation with RVR r/o Pneumonia UTI Acute Kidney Injury COPD Paget's Disease DM Anemia - Rate control as per Cardiology - Lasix as tolerated - BiPAP as needed to assist in work of breathing - O2 to keep SpO2 >90% - antibiotics per ID - Medrol taper - Inhaled bronchodilators - anticoagulation - f/u chest- x-ray today DR CARPENTER
[2019-09-29] MEDS: SENNOSIDES/DOCUSATE COMBO (SENNA PLUS) TABLET (UD) PO SCH ×2 (10:42→21:26)
[2019-09-29] MEDS: MULTIVITAMINS (DAILY MVI) TABLET (FP) PO SCH (10:42)
[2019-09-29] MEDS: TAMSULOSIN HCL 0.4 MG CAP PO SCH (10:43)
[2019-09-29] MEDS: DULoxetine HCL 20 MG CAPSULE.DR PO SCH (10:43)
[2019-09-29] MEDS: PANTOPRAZOLE SODIUM 40 MG VIAL IVPUSH SCH (10:43)
[2019-09-29] MEDS: APIXABAN 5 MG TABLET PO SCH ×2 (10:43→21:21)
[2019-09-29] MEDS: COLCHICINE 0.6 MG CAP PO SCH (10:43)
[2019-09-29] MEDS: methylPREDNISolone NA SUCC 40 MG/1 ML VIAL IVPUSH SCH (10:43)
[2019-09-29] MEDS: LIDOCAINE 5% TOPICAL PATCH TP SCH (10:44)
--- NOTE | 2019-09-29 12:31 | PN ---
Progress Note, Physician Chief Complaint: patient seen and examined on bipap - Current Medication List Current Medications: Active Medications Acetaminophen (Tylenol -) 650 mg PO Q6H PRN PRN Reason: FEVER OR PAIN LEVEL 1 - 3 Apixaban (Eliquis -) 5 mg PO BID [facility] Last Admin: 09/29/19 10:43 Dose: 5 mg Atorvastatin Calcium (Lipitor -) 40 mg PO HS [facility] Last Admin: 09/28/19 23:49 Dose: 40 mg Benzocaine/Menthol (Cepacol Lozenge -) 1 each MM PRN PRN PRN Reason: SORE THROAT Last Admin: 09/24/19 11:43 Dose: 1 each Chlorhexidine Gluconate (Hibiclens For Decolonization -) 1 applic TP HS [facility] Last Admin: 09/28/19 23:49 Dose: Not Given Colchicine (Colcrys) 0.6 mg PO DAILY [facility] Last Admin: 09/29/19 10:43 Dose: 0.6 mg Diltiazem HCl (Cardizem Cd -) 180 mg PO DAILY [facility] Last Admin: 09/29/19 10:42 Dose: 180 mg Duloxetine HCl (Cymbalta -) 40 mg PO DAILY [facility] Last Admin: 09/29/19 10:43 Dose: 40 mg Gabapentin (Neurontin -) 300 mg PO TID [facility] Last Admin: 09/29/19 07:08 Dose: 300 mg Piperacillin Sod/Tazobactam (Sod 3.375 gm/ Dextrose) 50 mls @ 100 mls/hr IVPB Q8H-IV [facility]; Protocol Last Admin: 09/29/19 10:44 Dose: 100 mls/hr Insulin Aspart (Novolog Vial Sliding Scale -) 1 vial SQ ACHS [facility]; Protocol Last Admin: 09/29/19 07:09 Dose: 2 units Insulin Detemir (Levemir Vial) 10 units SQ 0700 [facility] Last Admin: 09/29/19 07:08 Dose: 10 units Lidocaine (Lidoderm Patch -) 1 patch TP DAILY [facility] Last Admin: 09/29/19 10:44 Dose: 1 patch Melatonin (Melatonin) 5 mg PO HS PRN PRN Reason: INSOMNIA Last Admin: 09/28/19 23:50 Dose: 5 mg Methylprednisolone Sodium Succinate (Solu-Medrol -) 40 mg IVPUSH DAILY [facility] Last Admin: 09/29/19 10:43 Dose: 40 mg Metoprolol Succinate (Toprol Xl -) 50 mg PO DAILY [facility] Last Admin: 09/29/19 10:42 Dose: 50 mg Miscellaneous (Lidoderm Patch Removal) 1 each MC DAILY@2200 [facility] Last Admin: 09/28/19 23:49 Dose: 1 each Multivitamins/Minerals/Vitamin C (Tab-A-Vit -) 1 tab PO DAILY [facility] Last Admin: 09/29/19 10:42 Dose: 1 tab Pantoprazole Sodium (Protonix Iv) 40 mg IVPUSH DAILY [facility] Last Admin: 09/29/19 10:43 Dose: 40 mg Polyethylene Glycol (Miralax (For Daily Use) -) 17 gm PO BID [facility] Last Admin: 09/28/19 23:49 Dose: Not Given Senna/Docusate Sodium (Pericolace -) 1 tablet PO BID [facility] Last Admin: 09/29/19 10:42 Dose: 1 tablet Tamsulosin HCl (Flomax -) 0.4 mg PO DAILY@0830 [facility] Last Admin: 09/29/19 10:43 Dose: 0.4 mg Trazodone HCl (Desyrel -) 50 mg PO HS [facility] Last Admin: 09/28/19 23:48 Dose: 50 mg Ursodiol (Actigal -) 300 mg PO BID [facility] Last Admin: 09/28/19 23:46 Dose: 300 mg - Objective Vital Signs: Vital Signs Temperature 97.0 F L 09/29/19 07:12 Pulse Rate 88 09/29/19 07:12 Respiratory Rate 20 09/29/19 07:12 Blood Pressure 136/58 L 09/29/19 07:12 O2 Sat by Pulse Oximetry (%) 100 09/29/19 08:21 Constitutional: Yes: Calm Cardiovascular: Yes: Regular Rate and Rhythm, S1, S2 Respiratory: Yes: Diminished, On BiPap Gastrointestinal: Yes: Normal Bowel Sounds, Soft Neurological: Yes: Alert Labs: CBC, BMP 09/27/19 06:30 09/27/19 06:30 INR, PTT INR 3.09 (0.83-1.09) H 09/20/19 22:24 Problem List - Problems (1) Acute on chronic respiratory failure with hypoxia and hypercapnia Assessment/Plan: bipap at night nasal canula in day bronchodilators medrol taper today respiratory status is improving Code(s): J96.21 - ACUTE AND CHRONIC RESPIRATORY FAILURE WITH HYPOXIA; J96.22 - ACUTE AND CHRONIC RESPIRATORY FAILURE WITH HYPERCAPNIA (2) Atrial fibrillation Assessment/Plan: po cardizem eliquis and metorpolol HR on monitor rate control Code(s): I48.91 - UNSPECIFIED ATRIAL FIBRILLATION (3) Pneumonia Assessment/Plan: on zosyn Microbiology 09/21/19 18:40 Nares - Mrsa Screen - Right MRSA Screen - Final NO MRSA ISOLATED 09/21/19 18:40 Nares - Mrsa Screen - Left MRSA Screen - Final NO MRSA ISOLATED 08/31/19 12:39 Urine - Urine Iqbal Urine Culture - Final Proteus Mirabilis Code(s): J18.9 - PNEUMONIA, UNSPECIFIED ORGANISM Qualifiers: Pneumonia type: due to unspecified organism Laterality: left Lung location: lower lobe of lung Qualified Code(s): J18.9 - Pneumonia, unspecified organism (4) Polyarthralgia Assessment/Plan: gouty arthitis improved on medrol joint fluid with crystals-urate Code(s): M25.50 - PAIN IN UNSPECIFIED JOINT (5) Acute cholecystitis Assessment/Plan: clear liquid diet will advance to soft diet actigal HIDA report-no cystic duct obstruction and element of biliary dyskinesia iv zosyn Code(s): K81.0 - ACUTE CHOLECYSTITIS
--- NOTE | 2019-09-29 14:56 | PN ---
Progress Note (short form) - Note Progress Note: awake and alert no complaints on bipap now cxray with incrased LLL aelectasis?fluid?, film is rotated Vital Signs Period Temp Pulse Resp BP Sys/Enamorado Pulse Ox Last 24 Hr 97.0 F-98.2 F 77-88 18-20 120-141/58-74 98-100 cor-rrr lungs decreased bs at bases abd soft,nt ext trace edema CBC, BMP 09/27/19 06:30 09/27/19 06:30 Microbiology 09/21/19 00:00 Blood - Peripheral Venous Blood Culture - Final NO GROWTH AFTER 5 DAYS INCUBATION 09/21/19 00:00 Blood - Peripheral Venous Blood Culture - Final NO GROWTH AFTER 5 DAYS INCUBATION 09/21/19 18:00 Synovial Fluid - Knee Gram Stain - Final 09/21/19 18:00 Synovial Fluid - Knee Body Fluid Culture - Final NO GROWTH OF AEROBIC ORGANISMS AFTER 48 HOURS INCUBATION 09/21/19 18:00 Synovial Fluid - Knee Anaerobic Culture - Final NO ANAEROBES WERE ISOLATED 09/22/19 19:45 Urine For Antigen Detection Legionella Antigen - Final 09/22/19 19:45 Urine For Antigen Detection Streptococcus pneumoniae Antigen (M - Final 09/21/19 18:40 Nares - Mrsa Screen - Right MRSA Screen - Final NO MRSA ISOLATED 09/21/19 18:40 Nares - Mrsa Screen - Left MRSA Screen - Final NO MRSA ISOLATED 09/21/19 00:28 Urine - Urine - Catheterized Urine Culture - Final NO GROWTH OBTAINED synovial fluid +urate crystals hida- no cholycysititis a/p afib- management per cardiology on zosyn for pneumonia., day #9 zosyn 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
--- NOTE | 2019-09-29 15:01 | EKG ---
Test Reason : Blood Pressure : / mmHG Vent. Rate : 084 BPM Atrial Rate : 084 BPM P-R Int : 096 ms QRS Dur : 172 ms QT Int : 420 ms P-R-T Axes : 034 -84 012 degrees QTc Int : 496 ms SINUS RHYTHM WITH SHORT NH WITH PREMATURE ATRIAL COMPLEXES LEFT AXIS DEVIATION NON-SPECIFIC INTRA-VENTRICULAR CONDUCTION BLOCK CANNOT RULE OUT SEPTAL INFARCT (CITED ON OR BEFORE 01-SEP-2019) ABNORMAL ECG WHEN COMPARED WITH ECG OF 23-SEP-2019 08:40, NON-SPECIFIC INTRA-VENTRICULAR CONDUCTION BLOCK HAS REPLACED RIGHT BUNDLE BRANCH BLOCK QUESTIONABLE CHANGE IN INITIAL FORCES OF SEPTAL LEADS Confirmed by [place] TORRES, RUDDY ([id number]) on 09/29/2019 3:01:19 PM Referred By: Confirmed By:RUDDY HO MD
[2019-09-29] MEDS: URSODIOL 300 MG CAPSULE PO SCH ×2 (16:41→21:21)
[2019-09-29] MEDS: POLYETHYLENE GLYCOL 3350 119 GM BTL PO SCH ×2 (16:42→21:27)
--- NOTE | 2019-09-29 18:40 | CONS ---
DATE OF CONSULTATION: 09/29/2019 REFERRING PHYSICIAN: Ren Hatfield MD HISTORY OF PRESENT ILLNESS: The patient is a 78-year-old man with an extensive past medical history, which includes underlying COPD, atrial fibrillation, on Eliquis, coronary artery disease, status post stent, diabetes, congestive heart failure, prostate cancer, who has had multiple recent admission, including an admission from August 31 to September 17 with hematuria, left lower lobe pneumonia. The patient was discharged to [facility], where he developed shortness of breath and was brought back to the emergency room on September 21, 2019. He underwent CT of the chest, which showed atelectasis versus infiltrate, bilateral lung base. Admitting bloodwork, September 20, showed leukocytosis, WBCs 18.6, hemoglobin 7.7, platelet count 339; elevated BUN 27.5, creatinine 1.5; INR 3.09. Patient's most recent bloodwork on September 27, WBCs 15.8, hemoglobin 9.1, platelet count in the 380s; sodium 140, potassium 4.9, chloride 104, CO2 of 33, BUN 41.5, creatinine 0.9, estimated GFR was 95.15. Patient himself complains of numbness, but more diffuse weakness. He states he cannot ambulate currently due to his breathing more than the weakness. The patient was evaluated by Neurology, including a recent followup with Dr. Hatfield, who ordered electrodiagnostic studies of the right upper and right lower extremity. He noted evidence of peripheral neuropathy and wanted to rule out vasculitis or autoimmune condition causing axonal peripheral neuropathy. The patient himself is a very poor historian and is very uncooperative throughout the examination. He is seen lying in bed. REVIEW OF PAST MEDICAL AND SURGICAL HISTORY: As above. COPD, hypertension, hyperlipidemia, coronary artery disease, recent pneumonia, prostate cancer, anemia, atrial fibrillation, congestive heart failure, diabetes. SOCIAL HISTORY: Patient has been down at [facility], per the patient, for at least 5 months. He ambulated last about 4 months ago. He has been seen by Physical Therapy, but unable to stand or ambulate. REVIEW OF SYSTEMS: The patient, again, is very limited in terms of his cooperation. He does note some numbness and weakness, especially in his lower extremities more than upper extremities. He also complains of discomfort in the buttocks area. PHYSICAL EXAMINATION: General: Tall, elderly man seen lying on his left side. He is in no acute distress, but complains throughout the examination. HEENT: He is normocephalic and atraumatic. His extraocular muscles appear intact. Neck: Supple without any palpable spasm. Extremities: He does have some edema in the lower extremities more than the upper extremities, trace. Neuromuscular: He is awake, alert, cooperative. His cranial nerves II through XII are grossly intact. He has slightly masked facies. Extraocular muscles are full. He has atrophy in both upper extremities, significant weakness in the upper extremities, but also in the lower extremity with diminished reflexes throughout the upper and lower limbs, downgoing toes. Sensation: He states he feels pinprick throughout the upper and lower limbs. Some arthritic changes noted in the hands and possibly the knees. RESULTS OF ELECTROMYOGRAM AND NERVE CONDUCTION STUDIES: Please refer to report for details. OVERALL IMPRESSION: 1. Very limited study due to poor cooperation, bedside setting. 2. 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 3. Right carpal tunnel syndrome, possibly severe, but at least moderate. 4. Gait disorder. 5. Deconditioning. 6. Chronic obstructive pulmonary disease. 7. Atrial fibrillation. 8. Leukocytosis. 9. Recent pneumonia. 10. Anemia. 11. Coronary artery disease, status post stent. 12. History of prostate cancer. PLAN/SUGGEST: 1. Follow up with Dr. Hatfield as directed. 2. Would consider followup studies in an outpatient setting. 3. Continue physical therapy. 4. As patient is on Eliquis, no further DVT prophylaxis needed. 5. Followup CBC. 6. Followup chemistry. 7. Probably will need further long-term care. Thank you for this referral. BRIAN DAMON M.D. [id number]
[2019-09-29] MEDS: ATORVASTATIN CA 40 MG TABLET (FP) PO SCH (21:21)
[2019-09-29] MEDS: traZODone HCL 50 MG TABLET (FP) PO SCH (21:21)
[2019-09-29] MEDS: LIDOCAINE PATCH REMOVAL MC SCH (22:03)
[2019-09-30] MEDS: CHLORHEXIDINE GLUCONATE 4% CLEANSER FOR DECOLONIZATION TP SCH ×2 (00:36→22:27)
[2019-09-30] MEDS: INSULIN SLIDING SCALE (NOVOLOG) 1 VIAL SQ SCH ×4 (06:40→22:54)
[2019-09-30] MEDS: GABAPENTIN 300 MG CAPSULE (FP) PO SCH ×3 (06:40→22:23)
[2019-09-30] MEDS: INSULIN (LEVEMIR) 100 UNITS/ML UNITS SQ SCH (06:46)
[2019-09-30] MEDS ORDERED: PT OWN MED DRAWER 7, Y5N ONE (11:07)
[2019-09-30] MEDS: MULTIVITAMINS (DAILY MVI) TABLET (FP) PO SCH (11:11)
[2019-09-30] MEDS: COLCHICINE 0.6 MG CAP PO SCH (11:11)
[2019-09-30] MEDS: APIXABAN 5 MG TABLET PO SCH ×2 (11:13→22:23)
[2019-09-30] MEDS: DULoxetine HCL 20 MG CAPSULE.DR PO SCH (11:13)
[2019-09-30] MEDS: SENNOSIDES/DOCUSATE COMBO (SENNA PLUS) TABLET (UD) PO SCH ×2 (11:13→22:26)
[2019-09-30] MEDS: TAMSULOSIN HCL 0.4 MG CAP PO SCH (11:13)
[2019-09-30] MEDS: URSODIOL 300 MG CAPSULE PO SCH ×2 (11:13→22:24)
[2019-09-30] MEDS: PANTOPRAZOLE SODIUM 40 MG VIAL IVPUSH SCH (11:14)
[2019-09-30] MEDS: methylPREDNISolone NA SUCC 40 MG/1 ML VIAL IVPUSH SCH (11:14)
[2019-09-30] MEDS: LIDOCAINE 5% TOPICAL PATCH TP SCH (11:14)
[2019-09-30] MEDS: POLYETHYLENE GLYCOL 3350 119 GM BTL PO SCH ×2 (11:14→22:27)
--- NOTE | 2019-09-30 11:24 | PN ---
Progress Note, Physician History of Present Illness: PULMONARY WEAK,C/O SOB AT REST - Current Medication List Current Medications: Active Medications Acetaminophen (Tylenol -) 650 mg PO Q6H PRN PRN Reason: FEVER OR PAIN LEVEL 1 - 3 Last Admin: 09/30/19 11:11 Dose: 650 mg Apixaban (Eliquis -) 5 mg PO BID [facility] Last Admin: 09/30/19 11:13 Dose: 5 mg Atorvastatin Calcium (Lipitor -) 40 mg PO HS [facility] Last Admin: 09/29/19 21:21 Dose: 40 mg Benzocaine/Menthol (Cepacol Lozenge -) 1 each MM PRN PRN PRN Reason: SORE THROAT Last Admin: 09/24/19 11:43 Dose: 1 each Chlorhexidine Gluconate (Hibiclens For Decolonization -) 1 applic TP HS [facility] Last Admin: 09/30/19 00:36 Dose: Not Given Colchicine (Colcrys) 0.6 mg PO DAILY [facility] Last Admin: 09/30/19 11:11 Dose: 0.6 mg Diltiazem HCl (Cardizem Cd -) 180 mg PO DAILY [facility] Last Admin: 09/30/19 11:13 Dose: 180 mg Duloxetine HCl (Cymbalta -) 40 mg PO DAILY [facility] Last Admin: 09/30/19 11:13 Dose: 40 mg Gabapentin (Neurontin -) 300 mg PO TID [facility] Last Admin: 09/30/19 06:40 Dose: 300 mg Insulin Aspart (Novolog Vial Sliding Scale -) 1 vial SQ ACHS [facility]; Protocol Last Admin: 09/30/19 06:40 Dose: Not Given Insulin Detemir (Levemir Vial) 10 units SQ 0700 [facility] Last Admin: 09/30/19 06:46 Dose: 10 units Lidocaine (Lidoderm Patch -) 1 patch TP DAILY [facility] Last Admin: 09/30/19 11:14 Dose: 1 patch Melatonin (Melatonin) 5 mg PO HS PRN PRN Reason: INSOMNIA Last Admin: 09/28/19 23:50 Dose: 5 mg Methylprednisolone Sodium Succinate (Solu-Medrol -) 40 mg IVPUSH DAILY [facility] Last Admin: 09/30/19 11:14 Dose: 40 mg Metoprolol Succinate (Toprol Xl -) 50 mg PO DAILY [facility] Last Admin: 09/30/19 11:11 Dose: 50 mg Miscellaneous (Lidoderm Patch Removal) 1 each MC DAILY@2200 [facility] Last Admin: 09/29/19 22:03 Dose: Not Given Multivitamins/Minerals/Vitamin C (Tab-A-Vit -) 1 tab PO DAILY [facility] Last Admin: 09/30/19 11:11 Dose: 1 tab Pantoprazole Sodium (Protonix Iv) 40 mg IVPUSH DAILY [facility] Last Admin: 09/30/19 11:14 Dose: 40 mg Polyethylene Glycol (Miralax (For Daily Use) -) 17 gm PO BID [facility] Last Admin: 09/30/19 11:14 Dose: Not Given Senna/Docusate Sodium (Pericolace -) 1 tablet PO BID [facility] Last Admin: 09/30/19 11:13 Dose: 1 tablet Tamsulosin HCl (Flomax -) 0.4 mg PO DAILY@0830 [facility] Last Admin: 09/30/19 11:13 Dose: 0.4 mg Trazodone HCl (Desyrel -) 50 mg PO HS [facility] Last Admin: 09/29/19 21:21 Dose: 50 mg Ursodiol (Actigal -) 300 mg PO BID [facility] Last Admin: 09/30/19 11:13 Dose: 300 mg - Objective Vital Signs: Vital Signs Temperature 97.7 F 09/30/19 10:00 Pulse Rate 75 09/30/19 10:00 Respiratory Rate 15 09/30/19 10:00 Blood Pressure 146/65 09/30/19 10:00 O2 Sat by Pulse Oximetry (%) 99 09/30/19 10:00 Constitutional: Yes: Well Nourished, Calm Eyes: Yes: WNL HENT: Yes: WNL Neck: Yes: WNL Cardiovascular: Yes: Pulse Irregular, S1, S2 Respiratory: Yes: Rales (MILAGROS CRACKLES) Gastrointestinal: Yes: Normal Bowel Sounds, Soft Extremities: Yes: WNL Edema: No Labs: CBC, BMP 09/27/19 06:30 09/27/19 06:30 INR, PTT INR 3.09 (0.83-1.09) H 09/20/19 22:24 - ....Imaging Cat Scan: Report Reviewed (BILATERAL PATCHY INFILTRATES), Image Reviewed Problem List - Problems (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 - OSTEITIS DEFORMANS OF UNSPECIFIED BONE (2) Pneumonia Code(s): J18.9 - PNEUMONIA, UNSPECIFIED ORGANISM Qualifiers: Pneumonia type: due to unspecified organism Laterality: left Lung location: lower lobe of lung Qualified Code(s): J18.9 - Pneumonia, unspecified organism (3) BEKA (acute kidney injury) Code(s): N17.9 - ACUTE KIDNEY FAILURE, UNSPECIFIED (4) Atrial fibrillation Code(s): I48.91 - UNSPECIFIED ATRIAL FIBRILLATION (5) CHF (congestive heart failure) Code(s): I50.9 - HEART FAILURE, UNSPECIFIED Qualifiers: Heart failure type: unspecified Heart failure chronicity: chronic Qualified Code(s): I50.9 - Heart failure, unspecified (6) Diabetes Code(s): E11.9 - TYPE 2 DIABETES MELLITUS WITHOUT COMPLICATIONS Qualifiers: Diabetes mellitus type: other specified (including TAN) Diabetes mellitus usp insulin use: unspecified usp insulin use status Diabetes mellitus complication status: with other specified complication Qualified Code (s): E13.69 - Other specified diabetes mellitus with other specified complication (7) Extremity pain Code(s): M79.609 - PAIN IN UNSPECIFIED LIMB (8) Shortness of breath Code(s): R06.02 - SHORTNESS OF BREATH (9) Symptomatic anemia Code(s): D64.9 - ANEMIA, UNSPECIFIED (10) Systolic CHF Code(s): I50.20 - UNSPECIFIED SYSTOLIC (CONGESTIVE) HEART FAILURE (11) Acute on chronic respiratory failure with hypoxia and hypercapnia Code(s): J96.21 - ACUTE AND CHRONIC RESPIRATORY FAILURE WITH HYPOXIA; J96.22 - ACUTE AND CHRONIC RESPIRATORY FAILURE WITH HYPERCAPNIA Assessment/Plan ASSESSMENT AND PLAN: Acute Hypoxic and Hypercapneic Respiratory Failure Acute Pulmonary Edema Acute on Chronic Diastolic Heart Failure Atrial Fibrillation with RVR r/o Pneumonia new bilateral patchy infiltrates UTI Acute Kidney Injury COPD Paget's Disease DM Anemia - Rate control as per Cardiology - Lasix as per cardiology - BiPAP as needed to assist in work of breathing - O2 to keep SpO2 >90% - antibiotics per ID - Medrol taper - Inhaled bronchodilators - anticoagulation DR CARPENTER
--- NOTE | 2019-09-30 11:48 | PN ---
Progress Note (short form) - Note Progress Note: awake and alert no complaints wants to know when he will walk less body pain chest ct congestion vs infiltrates with basilar atelectasis and effusions Vital Signs Period Temp Pulse Resp BP Sys/Enamorado Pulse Ox Last 24 Hr 97.0 F-98.2 F 77-88 18-20 120-141/58-74 98-100 cor-rrr lungs decreased bs at bases abd soft,nt ext trace edema CBC, BMP 09/27/19 06:30 09/27/19 06:30 Microbiology 09/21/19 00:00 Blood - Peripheral Venous Blood Culture - Final NO GROWTH AFTER 5 DAYS INCUBATION 09/21/19 00:00 Blood - Peripheral Venous Blood Culture - Final NO GROWTH AFTER 5 DAYS INCUBATION 09/21/19 18:00 Synovial Fluid - Knee Gram Stain - Final 09/21/19 18:00 Synovial Fluid - Knee Body Fluid Culture - Final NO GROWTH OF AEROBIC ORGANISMS AFTER 48 HOURS INCUBATION 09/21/19 18:00 Synovial Fluid - Knee Anaerobic Culture - Final NO ANAEROBES WERE ISOLATED 09/22/19 19:45 Urine For Antigen Detection Legionella Antigen - Final 09/22/19 19:45 Urine For Antigen Detection Streptococcus pneumoniae Antigen (M - Final 09/21/19 18:40 Nares - Mrsa Screen - Right MRSA Screen - Final NO MRSA ISOLATED 09/21/19 18:40 Nares - Mrsa Screen - Left MRSA Screen - Final NO MRSA ISOLATED 09/21/19 00:28 Urine - Urine - Catheterized Urine Culture - Final NO GROWTH OBTAINED synovial fluid +urate crystals hida- no cholycysititis Current Medications Acetaminophen (Tylenol -) 650 mg PO Q6H PRN PRN Reason: FEVER OR PAIN LEVEL 1 - 3 Last Admin: 09/30/19 11:11 Dose: 650 mg Apixaban (Eliquis -) 5 mg PO BID [facility] Last Admin: 09/30/19 11:13 Dose: 5 mg Atorvastatin Calcium (Lipitor -) 40 mg PO HS [facility] Last Admin: 09/29/19 21:21 Dose: 40 mg Benzocaine/Menthol (Cepacol Lozenge -) 1 each MM PRN PRN PRN Reason: SORE THROAT Last Admin: 09/24/19 11:43 Dose: 1 each Chlorhexidine Gluconate (Hibiclens For Decolonization -) 1 applic TP [facility] Last Admin: 09/30/19 00:36 Dose: Not Given Colchicine (Colcrys) 0.6 mg PO DAILY [facility] Last Admin: 09/30/19 11:11 Dose: 0.6 mg Diltiazem HCl (Cardizem Cd -) 180 mg PO DAILY [facility] Last Admin: 09/30/19 11:13 Dose: 180 mg Duloxetine HCl (Cymbalta -) 40 mg PO DAILY [facility] Last Admin: 09/30/19 11:13 Dose: 40 mg Gabapentin (Neurontin -) 300 mg PO TID [facility] Last Admin: 09/30/19 06:40 Dose: 300 mg Insulin Aspart (Novolog Vial Sliding Scale -) 1 vial SQ ACHS [facility]; Protocol Last Admin: 09/30/19 06:40 Dose: Not Given Insulin Detemir (Levemir Vial) 10 units SQ 0700 [facility] Last Admin: 09/30/19 06:46 Dose: 10 units Lidocaine (Lidoderm Patch -) 1 patch TP DAILY [facility] Last Admin: 09/30/19 11:14 Dose: 1 patch Melatonin (Melatonin) 5 mg PO PRN PRN Reason: INSOMNIA Last Admin: 09/28/19 23:50 Dose: 5 mg Methylprednisolone Sodium Succinate (Solu-Medrol -) 40 mg IVPUSH DAILY [facility] Last Admin: 09/30/19 11:14 Dose: 40 mg Metoprolol Succinate (Toprol Xl -) 50 mg PO DAILY [facility] Last Admin: 09/30/19 11:11 Dose: 50 mg Miscellaneous (Lidoderm Patch Removal) 1 each MC DAILY@2200 [facility] Last Admin: 09/29/19 22:03 Dose: Not Given Multivitamins/Minerals/Vitamin C (Tab-A-Vit -) 1 tab PO DAILY [facility] Last Admin: 09/30/19 11:11 Dose: 1 tab Pantoprazole Sodium (Protonix Iv) 40 mg IVPUSH DAILY [facility] Last Admin: 09/30/19 11:14 Dose: 40 mg Polyethylene Glycol (Miralax (For Daily Use) -) 17 gm PO BID [facility] Last Admin: 09/30/19 11:14 Dose: Not Given Senna/Docusate Sodium (Pericolace -) 1 tablet PO BID [facility] Last Admin: 09/30/19 11:13 Dose: 1 tablet Tamsulosin HCl (Flomax -) 0.4 mg PO DAILY@0830 [facility] Last Admin: 09/30/19 11:13 Dose: 0.4 mg Trazodone HCl (Desyrel -) 50 mg PO HS [facility] Last Admin: 09/29/19 21:21 Dose: 50 mg Ursodiol (Actigal -) 300 mg PO BID [facility] Last Admin: 09/30/19 11:13 Dose: 300 mg a/p afib- management per cardiology antibiotics d/parviz -completed 9 days of zosyn- 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
--- NOTE | 2019-09-30 12:58 | PN ---
Progress Note, Physician Chief Complaint: Cardiology - Current Medication List Current Medications: Active Medications Acetaminophen (Tylenol -) 650 mg PO Q6H PRN PRN Reason: FEVER OR PAIN LEVEL 1 - 3 Last Admin: 09/30/19 11:11 Dose: 650 mg Apixaban (Eliquis -) 5 mg PO BID [facility] Last Admin: 09/30/19 11:13 Dose: 5 mg Atorvastatin Calcium (Lipitor -) 40 mg PO HS [facility] Last Admin: 09/29/19 21:21 Dose: 40 mg Benzocaine/Menthol (Cepacol Lozenge -) 1 each MM PRN PRN PRN Reason: SORE THROAT Last Admin: 09/24/19 11:43 Dose: 1 each Chlorhexidine Gluconate (Hibiclens For Decolonization -) 1 applic TP HS [facility] Last Admin: 09/30/19 00:36 Dose: Not Given Colchicine (Colcrys) 0.6 mg PO DAILY [facility] Last Admin: 09/30/19 11:11 Dose: 0.6 mg Diltiazem HCl (Cardizem Cd -) 180 mg PO DAILY [facility] Last Admin: 09/30/19 11:13 Dose: 180 mg Duloxetine HCl (Cymbalta -) 40 mg PO DAILY [facility] Last Admin: 09/30/19 11:13 Dose: 40 mg Gabapentin (Neurontin -) 300 mg PO TID [facility] Last Admin: 09/30/19 06:40 Dose: 300 mg Insulin Aspart (Novolog Vial Sliding Scale -) 1 vial SQ ACHS [facility]; Protocol Last Admin: 09/30/19 12:12 Dose: Not Given Insulin Detemir (Levemir Vial) 10 units SQ 0700 [facility] Last Admin: 09/30/19 06:46 Dose: 10 units Lidocaine (Lidoderm Patch -) 1 patch TP DAILY [facility] Last Admin: 09/30/19 11:14 Dose: 1 patch Melatonin (Melatonin) 5 mg PO HS PRN PRN Reason: INSOMNIA Last Admin: 09/28/19 23:50 Dose: 5 mg Methylprednisolone Sodium Succinate (Solu-Medrol -) 40 mg IVPUSH DAILY [facility] Last Admin: 09/30/19 11:14 Dose: 40 mg Metoprolol Succinate (Toprol Xl -) 50 mg PO DAILY [facility] Last Admin: 09/30/19 11:11 Dose: 50 mg Miscellaneous (Lidoderm Patch Removal) 1 each MC DAILY@2200 [facility] Last Admin: 09/29/19 22:03 Dose: Not Given Multivitamins/Minerals/Vitamin C (Tab-A-Vit -) 1 tab PO DAILY [facility] Last Admin: 09/30/19 11:11 Dose: 1 tab Pantoprazole Sodium (Protonix Iv) 40 mg IVPUSH DAILY [facility] Last Admin: 09/30/19 11:14 Dose: 40 mg Polyethylene Glycol (Miralax (For Daily Use) -) 17 gm PO BID [facility] Last Admin: 09/30/19 11:14 Dose: Not Given Senna/Docusate Sodium (Pericolace -) 1 tablet PO BID [facility] Last Admin: 09/30/19 11:13 Dose: 1 tablet Tamsulosin HCl (Flomax -) 0.4 mg PO DAILY@0830 [facility] Last Admin: 09/30/19 11:13 Dose: 0.4 mg Trazodone HCl (Desyrel -) 50 mg PO HS [facility] Last Admin: 09/29/19 21:21 Dose: 50 mg Ursodiol (Actigal -) 300 mg PO BID [facility] Last Admin: 09/30/19 11:13 Dose: 300 mg - Objective Vital Signs: Vital Signs Temperature 97.7 F 09/30/19 10:00 Pulse Rate 75 09/30/19 10:00 Respiratory Rate 15 09/30/19 10:00 Blood Pressure 146/65 09/30/19 10:00 O2 Sat by Pulse Oximetry (%) 99 09/30/19 10:00 Eyes: Yes: WNL, Conjunctiva Clear, EOM Intact HENT: Yes: WNL, Atraumatic, Normocephalic Neck: Yes: WNL, Supple, Trachea Midline Cardiovascular: Yes: WNL, Regular Rate and Rhythm Respiratory: Yes: WNL, Regular, CTA Bilaterally Gastrointestinal: Yes: WNL, Normal Bowel Sounds Genitourinary: Yes: WNL Musculoskeletal: Yes: WNL Extremities: Yes: WNL Edema: No Integumentary: Yes: WNL Neurological: Yes: WNL, Alert, Oriented ...Motor Strength: WNL Psychiatric: Yes: WNL Labs: CBC, BMP 09/27/19 06:30 09/27/19 06:30 INR, PTT INR 3.09 (0.83-1.09) H 09/20/19 22:24 Assessment/Plan - Problems r/o chf h/o high BNP sob will rechec bnp start lasix IV 20 mg monitor bnp Code(s): E86.0 - DEHYDRATION (2) Acute on chronic respiratory failure with hypoxia and hypercapnia Assessment/Plan: on Bipap nightly. Encourage physical and pulmonary rehabilitation. Code(s): J96.21 - ACUTE AND CHRONIC RESPIRATORY FAILURE WITH HYPOXIA; J96.22 - ACUTE AND CHRONIC RESPIRATORY FAILURE WITH HYPERCAPNIA (3) Leukocytosis Code(s): D72.829 - ELEVATED WHITE BLOOD CELL COUNT, UNSPECIFIED Qualifiers: Leukocytosis type: unspecified Qualified Code(s): D72.829 - Elevated white blood cell count, unspecified (4) Paget's bone disease Code(s): M88.9 - OSTEITIS DEFORMANS OF UNSPECIFIED BONE (5) Pneumonia Assessment/Plan: on antibitotics per ID. Code(s): J18.9 - PNEUMONIA, UNSPECIFIED ORGANISM Qualifiers: Pneumonia type: due to unspecified organism Laterality: left Lung location: lower lobe of lung Qualified Code(s): J18.9 - Pneumonia, unspecified organism (6) Depression Code(s): F32.9 - MAJOR DEPRESSIVE DISORDER, SINGLE EPISODE, UNSPECIFIED (7) Diabetes Code(s): E11.9 - TYPE 2 DIABETES MELLITUS WITHOUT COMPLICATIONS Qualifiers: Diabetes mellitus type: other specified (including TAN) Diabetes mellitus detention insulin use: unspecified superintendent container terminal insulin use status Diabetes mellitus complication status: with other specified complication Qualified Code (s): E13.69 - Other specified diabetes mellitus with other specified complication (8) Diastolic CHF Code(s): I50.30 - UNSPECIFIED DIASTOLIC (CONGESTIVE) HEART FAILURE (9) HLD (hyperlipidemia) Assessment/Plan: on statinj Code(s): E78.5 - HYPERLIPIDEMIA, UNSPECIFIED Qualifiers: Hyperlipidemia type: other hyperlipidemia Qualified Code(s): E78.49 - Other hyperlipidemia; E78.4 - Other hyperlipidemia (10) Atrial fibrillation Assessment/Plan: Brief periods of AF with RVR. Will increase diltiazem CD to 130 mg daily (and stop amlodipine, a 2nd calcium channel quirino). Continue metoprolol ER. Continue apixaban for anticoagulation (and stop ASA: increased risk of bleed; anemia; no hx MO, PCI). Code(s): I48.91 - UNSPECIFIED ATRIAL FIBRILLATION (11) NSVT (nonsustained ventricular tachycardia) Assessment/Plan: breif, nonsustanted runs during SVT/AF incident necessitatin ICU earlier this admission. ECHO: normal LVEF. On metoprolol and diltiazem. Maintain electrolytes.; control BP. Coronary artery evaluation when stable. Code(s): I47.2 - VENTRICULAR TACHYCARDIA
[2019-09-30 14:39] LABS: BASO % 0.3 % (0-2.0); EOS % 0.5 % (0-4.5); HEMOGLOBIN 8.7 GM/dL (11.7-16.9); LYMPH % 2.9 % (8-40); MCH 29.6 pg (25.7-33.7); MEAN CELL VOLUME 98.5 fl (80-96); MEAN PLT VOLUME 7.9 fl (7.5-11.1); NEUT % 95.3 % (42.8-82.8); PLATELET COUNT 364 K/MM3 (134-434); RBC 2.94 M/mm3 (4.00-5.60); RDW 19.6 % (11.9-15.9); WHITE BLOOD COUNT 21.2 K/mm3 (4.0-10.0)
[2019-09-30] MEDS: FUROSEMIDE 40 MG/4 ML INJECTABLE VIAL IVPUSH SCH (14:43)
--- NOTE | 2019-09-30 14:46 | PN ---
Progress Note, Physician Chief Complaint: patient seen and examined on bipap chest Ct noted for increased congestion h/o high Bnp - Current Medication List Current Medications: Active Medications Acetaminophen (Tylenol -) 650 mg PO Q6H PRN PRN Reason: FEVER OR PAIN LEVEL 1 - 3 Last Admin: 09/30/19 11:11 Dose: 650 mg Apixaban (Eliquis -) 5 mg PO BID [facility] Last Admin: 09/30/19 11:13 Dose: 5 mg Atorvastatin Calcium (Lipitor -) 40 mg PO HS [facility] Last Admin: 09/29/19 21:21 Dose: 40 mg Benzocaine/Menthol (Cepacol Lozenge -) 1 each MM PRN PRN PRN Reason: SORE THROAT Last Admin: 09/24/19 11:43 Dose: 1 each Chlorhexidine Gluconate (Hibiclens For Decolonization -) 1 applic TP HS [facility] Last Admin: 09/30/19 00:36 Dose: Not Given Colchicine (Colcrys) 0.6 mg PO DAILY [facility] Last Admin: 09/30/19 11:11 Dose: 0.6 mg Diltiazem HCl (Cardizem Cd -) 180 mg PO DAILY [facility] Last Admin: 09/30/19 11:13 Dose: 180 mg Duloxetine HCl (Cymbalta -) 40 mg PO DAILY [facility] Last Admin: 09/30/19 11:13 Dose: 40 mg Furosemide (Lasix Injection -) 20 mg IVPUSH DAILY [facility] Gabapentin (Neurontin -) 300 mg PO TID [facility] Last Admin: 09/30/19 06:40 Dose: 300 mg Insulin Aspart (Novolog Vial Sliding Scale -) 1 vial SQ ACHS [facility]; Protocol Last Admin: 09/30/19 12:12 Dose: Not Given Insulin Detemir (Levemir Vial) 10 units SQ 0700 [facility] Last Admin: 09/30/19 06:46 Dose: 10 units Lidocaine (Lidoderm Patch -) 1 patch TP DAILY [facility] Last Admin: 09/30/19 11:14 Dose: 1 patch Melatonin (Melatonin) 5 mg PO HS PRN PRN Reason: INSOMNIA Last Admin: 09/28/19 23:50 Dose: 5 mg Methylprednisolone Sodium Succinate (Solu-Medrol -) 40 mg IVPUSH DAILY [facility] Last Admin: 09/30/19 11:14 Dose: 40 mg Metoprolol Succinate (Toprol Xl -) 50 mg PO DAILY [facility] Last Admin: 09/30/19 11:11 Dose: 50 mg Miscellaneous (Lidoderm Patch Removal) 1 each MC DAILY@2200 [facility] Last Admin: 09/29/19 22:03 Dose: Not Given Multivitamins/Minerals/Vitamin C (Tab-A-Vit -) 1 tab PO DAILY [facility] Last Admin: 09/30/19 11:11 Dose: 1 tab Pantoprazole Sodium (Protonix Iv) 40 mg IVPUSH DAILY [facility] Last Admin: 09/30/19 11:14 Dose: 40 mg Polyethylene Glycol (Miralax (For Daily Use) -) 17 gm PO BID [facility] Last Admin: 09/30/19 11:14 Dose: Not Given Senna/Docusate Sodium (Pericolace -) 1 tablet PO BID [facility] Last Admin: 09/30/19 11:13 Dose: 1 tablet Tamsulosin HCl (Flomax -) 0.4 mg PO DAILY@0830 [facility] Last Admin: 09/30/19 11:13 Dose: 0.4 mg Trazodone HCl (Desyrel -) 50 mg PO HS [facility] Last Admin: 09/29/19 21:21 Dose: 50 mg Ursodiol (Actigal -) 300 mg PO BID [facility] Last Admin: 09/30/19 11:13 Dose: 300 mg - Objective Vital Signs: Vital Signs Temperature 98.2 F 09/30/19 14:25 Pulse Rate 69 09/30/19 14:25 Respiratory Rate 17 09/30/19 14:25 Blood Pressure 130/55 L 09/30/19 14:25 O2 Sat by Pulse Oximetry (%) 99 09/30/19 10:00 Constitutional: Yes: Calm Cardiovascular: Yes: Regular Rate and Rhythm, S1, S2 Respiratory: Yes: Diminished, On BiPap Gastrointestinal: Yes: Normal Bowel Sounds, Soft Edema: No Neurological: Yes: Alert, Oriented (to name and place) Labs: INR, PTT INR 3.09 (0.83-1.09) H 09/20/19 22:24 Problem List - Problems (1) Acute on chronic respiratory failure with hypoxia and hypercapnia Assessment/Plan: bipap at night nasal canula in day bronchodilators medrol taper chest CT shows increaed congestion iv lasix started Code(s): J96.21 - ACUTE AND CHRONIC RESPIRATORY FAILURE WITH HYPOXIA; J96.22 - ACUTE AND CHRONIC RESPIRATORY FAILURE WITH HYPERCAPNIA (2) Atrial fibrillation Assessment/Plan: po cardizem eliquis and metorpolol HR on monitor rate control Code(s): I48.91 - UNSPECIFIED ATRIAL FIBRILLATION (3) Pneumonia Assessment/Plan: on zosyn completed 9 days Microbiology 09/21/19 18:40 Nares - Mrsa Screen - Right MRSA Screen - Final NO MRSA ISOLATED 09/21/19 18:40 Nares - Mrsa Screen - Left MRSA Screen - Final NO MRSA ISOLATED 08/31/19 12:39 Urine - Urine Iqbal Urine Culture - Final Proteus Mirabilis Code(s): J18.9 - PNEUMONIA, UNSPECIFIED ORGANISM Qualifiers: Pneumonia type: due to unspecified organism Laterality: left Lung location: lower lobe of lung Qualified Code(s): J18.9 - Pneumonia, unspecified organism (4) Polyarthralgia Assessment/Plan: gouty arthitis improved joint fluid with crystals-urate Code(s): M25.50 - PAIN IN UNSPECIFIED JOINT (5) Acute cholecystitis Assessment/Plan: clear liquid diet will advance to soft diet montserrat WRIGHT report-no cystic duct obstruction and element of biliary dyskinesia iv zosyn- cours completed Code(s): K81.0 - ACUTE CHOLECYSTITIS
--- NOTE | 2019-09-30 14:58 | PN ---
Progress Note (short form) - Note Progress Note: Renal follow up for BEKA Pt seen and examined at the bedside awake and alert wearing CPAP mask reports shortness of breath no chest pain, abdominal pain, fever or chills Vital Signs Temperature 98.2 F 09/30/19 14:25 Pulse Rate 69 09/30/19 14:25 Respiratory Rate 17 09/30/19 14:25 Blood Pressure 130/55 L 09/30/19 14:25 O2 Sat by Pulse Oximetry (%) 99 09/30/19 10:00 Intake & Output 09/27/19 09/28/19 09/29/19 09/30/19 23:59 23:59 23:59 23:59 Intake Total 670 410 250 90 Balance 670 410 250 90 Mild distress from pain neck supple, no JVD RRR, no M/R CTA (anterior examination) soft, obese, NT/ND no bladder distension + edema in LE + left ankle pain CBC, BMP 09/30/19 14:10 Current Medications Acetaminophen (Tylenol -) 650 mg PO Q6H PRN PRN Reason: FEVER OR PAIN LEVEL 1 - 3 Last Admin: 09/30/19 11:11 Dose: 650 mg Apixaban (Eliquis -) 5 mg PO BID [facility] Last Admin: 09/30/19 11:13 Dose: 5 mg Atorvastatin Calcium (Lipitor -) 40 mg PO HS [facility] Last Admin: 09/29/19 21:21 Dose: 40 mg Benzocaine/Menthol (Cepacol Lozenge -) 1 each MM PRN PRN PRN Reason: SORE THROAT Last Admin: 09/24/19 11:43 Dose: 1 each Chlorhexidine Gluconate (Hibiclens For Decolonization -) 1 applic TP [facility] Last Admin: 09/30/19 00:36 Dose: Not Given Colchicine (Colcrys) 0.6 mg PO DAILY [facility] Last Admin: 09/30/19 11:11 Dose: 0.6 mg Diltiazem HCl (Cardizem Cd -) 180 mg PO DAILY [facility] Last Admin: 09/30/19 11:13 Dose: 180 mg Duloxetine HCl (Cymbalta -) 40 mg PO DAILY [facility] Last Admin: 09/30/19 11:13 Dose: 40 mg Furosemide (Lasix Injection -) 20 mg IVPUSH DAILY [facility] Last Admin: 09/30/19 14:43 Dose: 20 mg Gabapentin (Neurontin -) 300 mg PO TID [facility] Last Admin: 09/30/19 06:40 Dose: 300 mg Insulin Aspart (Novolog Vial Sliding Scale -) 1 vial SQ ACHS [facility]; Protocol Last Admin: 09/30/19 12:12 Dose: Not Given Insulin Detemir (Levemir Vial) 10 units SQ 0700 [facility] Last Admin: 09/30/19 06:46 Dose: 10 units Lidocaine (Lidoderm Patch -) 1 patch TP DAILY [facility] Last Admin: 09/30/19 11:14 Dose: 1 patch Melatonin (Melatonin) 5 mg PO HS PRN PRN Reason: INSOMNIA Last Admin: 09/28/19 23:50 Dose: 5 mg Methylprednisolone Sodium Succinate (Solu-Medrol -) 40 mg IVPUSH DAILY [facility] Last Admin: 09/30/19 11:14 Dose: 40 mg Metoprolol Succinate (Toprol Xl -) 50 mg PO DAILY [facility] Last Admin: 09/30/19 11:11 Dose: 50 mg Miscellaneous (Lidoderm Patch Removal) 1 each MC DAILY@2200 [facility] Last Admin: 09/29/19 22:03 Dose: Not Given Multivitamins/Minerals/Vitamin C (Tab-A-Vit -) 1 tab PO DAILY [facility] Last Admin: 09/30/19 11:11 Dose: 1 tab Pantoprazole Sodium (Protonix Iv) 40 mg IVPUSH DAILY [facility] Last Admin: 09/30/19 11:14 Dose: 40 mg Polyethylene Glycol (Miralax (For Daily Use) -) 17 gm PO BID [facility] Last Admin: 09/30/19 11:14 Dose: Not Given Senna/Docusate Sodium (Pericolace -) 1 tablet PO BID [facility] Last Admin: 09/30/19 11:13 Dose: 1 tablet Tamsulosin HCl (Flomax -) 0.4 mg PO DAILY@0830 [facility] Last Admin: 09/30/19 11:13 Dose: 0.4 mg Trazodone HCl (Desyrel -) 50 mg PO HS [facility] Last Admin: 09/29/19 21:21 Dose: 50 mg Ursodiol (Actigal -) 300 mg PO BID [facility] Last Admin: 09/30/19 11:13 Dose: 300 mg 78 year old gentleman with history of CHF with reduced LVEF, Afib, Anemia and DM with recent admission for gross hematuria and BEKA now presents with diffuse body pain and joint pain with BEKA. 1. Acute kidney injury now resolved 2. Joint pains 3. CHF with reduced LVEF 4. Leukocytosis 5. Anemia todays chemistry pending, ordred this am given CT finding of infiltrate/effusions will start on diuretics (Lasix 20mg IV ordered per cardiology) Will continue oral lasix 20mg Daily starting tomorrow and titrate as needed to achieve clinical improvement continue CPAP as needed trend renal function and electrolytes Thank you Saul Diza DO
[2019-09-30 15:11] LABS: ALBUMIN 2.5 g/dl (3.4-5.0); BILIRUBIN,TOTAL 0.7 mg/dL (0.2-1); BLOOD UREA NITROGEN 23.7 mg/dL (7-18); CALCIUM 8.8 mg/dL (8.5-10.1); CREATININE 0.6 mg/dL (0.55-1.3); N-TERMINAL BNP 2231.4 pg/ml (5-450); POTASSIUM 4.4 mmol/L (3.5-5.1); TOT PROT 5.2 g/dl (6.4-8.2)
[2019-09-30 15:21] LABS: ANISOCYTOSIS 1+; PLATELET ESTIMATE NORMAL
[2019-09-30] MEDS: traZODone HCL 50 MG TABLET (FP) PO SCH (22:23)
[2019-09-30] MEDS: ATORVASTATIN CA 40 MG TABLET (FP) PO SCH (22:23)
[2019-09-30] MEDS: LIDOCAINE PATCH REMOVAL MC SCH (22:27)
[2019-10-01] MEDS ORDERED: ACETAMINOPHEN 325 MG TABLET (FP) PO PRN (00:11)
[2019-10-01] MEDS ORDERED: LIDOCAINE PATCH REMOVAL MC SCH (00:11)
[2019-10-01] MEDS ORDERED: LIDOCAINE PATCH REMOVAL MC ONE (00:11)
[2019-10-01] MEDS ORDERED: BENZOCAINE/MENTH/CETYLPYRD CL 1 EACH LOZENGE MM PRN (00:11)
[2019-10-01] MEDS: GABAPENTIN 300 MG CAPSULE (FP) PO SCH ×3 (05:37→21:53)
[2019-10-01] MEDS: INSULIN SLIDING SCALE (NOVOLOG) 1 VIAL SQ SCH ×4 (06:08→21:55)
[2019-10-01] MEDS: INSULIN (LEVEMIR) 100 UNITS/ML UNITS SQ SCH (06:09)
--- NOTE | 2019-10-01 07:18 | PN ---
Progress Note (short form) - Note Progress Note: Coverage for Drs. Ginger Sadler/Vonnie Serra Chief Complaint: Events noted, notes reviewed, seen earlier- resting in bed on BiPAP/mask lethargic in no distress, easily arousable denies any chest pain History of Present Illness: Seen and examined on telemetry. Events noted, notes reviewed, seen earlier- resting in bed on BiPAP/mask lethargic in no distress, easily arousable denies any chest pain Reported paroxysmal atrial fibrillation but initial EKG review revealed MAT/ mutifocal atrial tachycardia with non sustained SVT probable ectopic atrial tachycardia - Current Medication List Current Medications Acetaminophen (Tylenol -) 650 mg PO Q6H PRN PRN Reason: FEVER OR PAIN LEVEL 1 - 3 Apixaban (Eliquis -) 5 mg PO BID [facility] Atorvastatin Calcium (Lipitor -) 40 mg PO HS [facility] Benzocaine/Menthol (Cepacol Lozenge -) 1 each MM Q2H PRN PRN Reason: SORE THROAT Colchicine (Colcrys) 0.6 mg PO DAILY [facility] Diltiazem HCl (Cardizem Cd -) 180 mg PO DAILY [facility] Last Admin: 09/30/19 11:13 Dose: 180 mg Duloxetine HCl (Cymbalta -) 40 mg PO DAILY [facility] Furosemide (Lasix Injection -) 20 mg IVPUSH DAILY [facility] Last Admin: 09/30/19 14:43 Dose: 20 mg Gabapentin (Neurontin -) 300 mg PO TID [facility] Last Admin: 10/01/19 05:37 Dose: 300 mg Insulin Aspart (Novolog Vial Sliding Scale -) 1 vial SQ ACHS [facility]; Protocol Last Admin: 10/01/19 06:08 Dose: Not Given Insulin Detemir (Levemir Vial) 10 units SQ 0700 [facility] Last Admin: 10/01/19 06:09 Dose: 10 units Lidocaine (Lidoderm Patch -) 1 patch TP DAILY [facility] Melatonin (Melatonin) 5 mg PO HS PRN PRN Reason: INSOMNIA Methylprednisolone Sodium Succinate (Solu-Medrol -) 40 mg IVPUSH DAILY [facility] Last Admin: 09/30/19 11:14 Dose: 40 mg Metoprolol Succinate (Toprol Xl -) 50 mg PO DAILY [facility] Miscellaneous (Lidoderm Patch Removal) 1 each MC DAILY@2200 [facility] Multivitamins/Minerals/Vitamin C (Tab-A-Vit -) 1 tab PO DAILY [facility] Pantoprazole Sodium (Protonix Iv) 40 mg IVPUSH DAILY [facility] Polyethylene Glycol (Miralax (For Daily Use) -) 17 gm PO BID [facility] Senna/Docusate Sodium (Pericolace -) 1 tablet PO BID [facility] Tamsulosin HCl (Flomax -) 0.4 mg PO DAILY@0830 [facility] Trazodone HCl (Desyrel -) 50 mg PO HS [facility] Ursodiol (Actigal -) 300 mg PO BID [facility] Review of Systems Unable to obtain` - Objective Vital Signs: Last Vital Signs Temp Pulse Resp BP Pulse Ox 97.6 F 79 20 132/73 95 10/01/19 05:06 10/01/19 05:06 10/01/19 05:06 10/01/19 05:06 09/30/19 21:24 Intake & Output 09/28/19 09/29/19 09/30/19 10/01/19 23:59 23:59 23:59 23:59 Intake Total 410 250 520 Output Total 2 Balance 410 250 518 Neck: Supple Negative JVD No Bruit Respiratory: Scattered Rhonchi Bilaterally Cardiovascular: S1 S2 Irregularly Irregular Gastrointestinal: Soft Benign Normal Bowel Sounds Ext: Edema Labs: CBC, BMP 09/30/19 14:10 10/01/19 06:00 Troponin, BNP 09/30/19 14:10 B-Natriuretic Peptide 2231.4 H Hepatic Panel Total Bilirubin 0.7 mg/dL (0.2-1) 09/30/19 14:10 AST 8 U/L (15-37) L 09/30/19 14:10 ALT 19 U/L (13-61) 09/30/19 14:10 Alkaline Phosphatase 84 U/L (45-117) 09/30/19 14:10 Albumin 2.5 g/dl (3.4-5.0) L 09/30/19 14:10 ABG Results ABG pH 7.39 (7.35-7.45) 09/24/19 10:25 ABG pCO2 at Pt Temp 48.4 mmHg (35-45) H 09/24/19 10:25 ABG pO2 at Pt Temp 91.0 mmHg (80-100) 09/24/19 10:25 ABG HCO3 28.8 mmol/L (22-27) H 09/24/19 10:25 ABG O2 Sat (Measured) 95.9 % (95-98) 09/24/19 10:25 ABG O2 Content 11.6 % vol 09/24/19 10:25 ABG Base Excess 3.9 meq/l (-2-2) H 09/24/19 10:25 Assessment/Plan ASSESSMENT: 1. Acute on chronic respiratory failure related to 2. Acute on chronic class I-II NYHA classification LV diastolic/systolic failure , clinically resolving- and 3. Pneumonia- COPD exacerbation 4. CAD/visual CAC coronary artery calcification- image review angina pectoris 5. Reported paroxysmal atrial fibrillation [id number] score of 4 on DOAC's/ Eliquis, currently evidence of MAT/mutifocal atrial tachycardia- as noted above 6. Paroxysmal non sustained tachycardia 7. Hypertension 8. DM 9. Hyperlipidemia 10. Pre-renal azotemia 11. Anemia PLAN: 1. Continue Lasix IV for an additional 24- 48 hours with close monitoring of renal function and electrolytes, evidence of pre-renal azotemia 2. Continue Toprol XL 3. Continue Cardizem CD 4. Continue Eliquis, A/C may need to be readdressed since initial EKG revealed MAT- to be reviewed with the primary cardiology team 5. Continue Lipitor 6. Antibiotics as per the primary team/ID service Liam Carrera M.D.
[2019-10-01 07:50] LABS: BLOOD UREA NITROGEN 21.1 mg/dL (7-18); CALCIUM 8.8 mg/dL (8.5-10.1); CREATININE 0.7 mg/dL (0.55-1.3); MAGNESIUM 1.9 mg/dL (1.8-2.4); PHOSPHOROUS 2.8 mg/dL (2.5-4.9); POTASSIUM 4.2 mmol/L (3.5-5.1)
--- NOTE | 2019-10-01 09:58 | PN ---
Progress Note, Physician Chief Complaint: Pneumonia Afib History of Present Illness: Previous notes and events reviewed awake and alert breathing on Bipap NAD denies palpiations says breathing is better on Bipap - Current Medication List Current Medications: Active Medications Acetaminophen (Tylenol -) 650 mg PO Q6H PRN PRN Reason: FEVER OR PAIN LEVEL 1 - 3 Apixaban (Eliquis -) 5 mg PO BID [facility] Atorvastatin Calcium (Lipitor -) 40 mg PO HS [facility] Benzocaine/Menthol (Cepacol Lozenge -) 1 each MM Q2H PRN PRN Reason: SORE THROAT Colchicine (Colcrys) 0.6 mg PO DAILY [facility] Diltiazem HCl (Cardizem Cd -) 180 mg PO DAILY [facility] Last Admin: 09/30/19 11:13 Dose: 180 mg Duloxetine HCl (Cymbalta -) 40 mg PO DAILY [facility] Furosemide (Lasix Injection -) 20 mg IVPUSH DAILY [facility] Last Admin: 09/30/19 14:43 Dose: 20 mg Gabapentin (Neurontin -) 300 mg PO TID [facility] Last Admin: 10/01/19 05:37 Dose: 300 mg Insulin Aspart (Novolog Vial Sliding Scale -) 1 vial SQ ACHS [facility]; Protocol Last Admin: 10/01/19 06:08 Dose: Not Given Insulin Detemir (Levemir Vial) 10 units SQ 0700 [facility] Last Admin: 10/01/19 06:09 Dose: 10 units Lidocaine (Lidoderm Patch -) 1 patch TP DAILY [facility] Melatonin (Melatonin) 5 mg PO HS PRN PRN Reason: INSOMNIA Methylprednisolone Sodium Succinate (Solu-Medrol -) 40 mg IVPUSH DAILY [facility] Last Admin: 09/30/19 11:14 Dose: 40 mg Metoprolol Succinate (Toprol Xl -) 50 mg PO DAILY [facility] Miscellaneous (Lidoderm Patch Removal) 1 each MC DAILY@2200 [facility] Multivitamins/Minerals/Vitamin C (Tab-A-Vit -) 1 tab PO DAILY [facility] Pantoprazole Sodium (Protonix Iv) 40 mg IVPUSH DAILY [facility] Polyethylene Glycol (Miralax (For Daily Use) -) 17 gm PO BID [facility] Senna/Docusate Sodium (Pericolace -) 1 tablet PO BID [facility] Tamsulosin HCl (Flomax -) 0.4 mg PO DAILY@0830 [facility] Trazodone HCl (Desyrel -) 50 mg PO HS [facility] Ursodiol (Actigal -) 300 mg PO BID [facility] - Objective Vital Signs: Vital Signs Temperature 97.6 F 10/01/19 05:06 Pulse Rate 79 10/01/19 05:06 Respiratory Rate 20 10/01/19 05:06 Blood Pressure 132/73 10/01/19 05:06 O2 Sat by Pulse Oximetry (%) 98 10/01/19 09:00 Constitutional: Yes: No Distress, Calm Eyes: Yes: Conjunctiva Clear HENT: Yes: Atraumatic Cardiovascular: Yes: Pulse Irregular Respiratory: Yes: Regular, Diminished, On BiPap Gastrointestinal: Yes: Normal Bowel Sounds, Soft Genitourinary: Yes: Incontinence Musculoskeletal: Yes: Joint Swelling (L knee), Muscle Weakness Extremities: Yes: WNL Edema: No Neurological: Yes: Alert, Oriented Psychiatric: Yes: Alert, Oriented Labs: CBC, BMP 09/30/19 14:10 10/01/19 06:00 INR, PTT INR 3.09 (0.83-1.09) H 09/20/19 22:24 Problem List - Problems (1) Tachycardia Assessment/Plan: -Cardiology on board -rate controlled with -tele monitoring Metoprolol and Cardizem Code(s): R00.0 - TACHYCARDIA, UNSPECIFIED (2) Acute on chronic respiratory failure with hypoxia and hypercapnia Assessment/Plan: -Pulm on board -Bronchodilators -O2 via C -Bipap HS -CHest CT shows atelectasis/infiltration at both bases -Keep SpO2 >90% -repeat Chest CT scan shows diffuse bilateral patchy infiltrates suspicious for pneumonia or congestion that have developed since 09/21/2019, persistent bibasilar atelectasis, left greater than right, and small bilateral pleural effusion Code(s): J96.21 - ACUTE AND CHRONIC RESPIRATORY FAILURE WITH HYPOXIA; J96.22 - ACUTE AND CHRONIC RESPIRATORY FAILURE WITH HYPERCAPNIA (3) Leukocytosis Assessment/Plan: -WBC 21.2 -afebrile -BC and UC neg -MRSA screen neg -Legionella neg -Vancomycin and Zosyn discontinued, monitor off -ID on board -Tylenol for temp >100F Code(s): D72.829 - ELEVATED WHITE BLOOD CELL COUNT, UNSPECIFIED Qualifiers: Leukocytosis type: unspecified Qualified Code(s): D72.829 - Elevated white blood cell count, unspecified (4) Paget's bone disease Assessment/Plan: -Hematology on board Code(s): M88.9 - OSTEITIS DEFORMANS OF UNSPECIFIED BONE (5) Pneumonia Assessment/Plan: -WBC 21.2 -afebrile -BC neg -MRSA screen neg -Urine Legionella neg -Vancomycin and Zosyn, completed course monitor off -ID on board -Tylenol for temp >100F -Pulm on board -Bronchodilators -O2 via NC -Bipap HS and PRN -CHest CT shows atelectasis/infiltration at both bases -Keep SpO2 >90% -repeat Chest CT scan shows diffuse bilateral patchy infiltrates suspicious for pneumonia or congestion that have developed since 09/21/2019, persistent bibasilar atelectasis, left greater than right, and small bilateral pleural effusion Code(s): J18.9 - PNEUMONIA, UNSPECIFIED ORGANISM Qualifiers: Pneumonia type: due to unspecified organism Laterality: left Lung location: lower lobe of lung Qualified Code(s): J18.9 - Pneumonia, unspecified organism (6) Polyarthralgia Assessment/Plan: -Rheumatology on board -ESR >140, CRP 41.6, Uric Acid wnl -pain control -s/p aspiration L knee~fluid positive for monosodium urate crystals -IV medrol daily -Colchicine Code(s): M25.50 - PAIN IN UNSPECIFIED JOINT (7) Anemia Assessment/Plan: -Anemia panel reviewed -Hg 8.7 -monitor H/H -transfuse for Hg <7.0 to avoid fluid overload Code(s): D64.9 - ANEMIA, UNSPECIFIED (8) Atrial fibrillation Assessment/Plan: -Eliquis BID -rate controlled with Metoprolol and Cardizem Code(s): I48.91 - UNSPECIFIED ATRIAL FIBRILLATION (9) HLD (hyperlipidemia) Assessment/Plan: -Atorvastatin Code(s): E78.5 - HYPERLIPIDEMIA, UNSPECIFIED Qualifiers: Hyperlipidemia type: other hyperlipidemia Qualified Code(s): E78.49 - Other hyperlipidemia; E78.4 - Other hyperlipidemia (10) Hypertension Assessment/Plan: -Amlodipine -low Na diet Code(s): I10 - ESSENTIAL (PRIMARY) HYPERTENSION Qualifiers: Hypertension type: unspecified Qualified Code(s): I10 - Essential (primary ) hypertension (11) BPH (benign prostatic hyperplasia) Assessment/Plan: -Tamsulosin Code(s): N40.0 - BENIGN PROSTATIC HYPERPLASIA WITHOUT LOWER URINRY TRACT SYMP (12) Diabetes Assessment/Plan: -diet controlled -BGM ACHS Code(s): E11.9 - TYPE 2 DIABETES MELLITUS WITHOUT COMPLICATIONS Qualifiers: Diabetes mellitus type: other specified (including TAN) Diabetes 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 insulin 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: unspecified residential insulin use status Diabetes mellitus complication status: with other specified complication Qualified Code (s): E13.69 - Other specified diabetes mellitus with other specified complication (13) UTI (urinary tract infection) Assessment/Plan: -ID on board -leukocytosis -afebrile -UA shows 3+ leuks, 3+ protein, 2+ bilirubin -UC neg Code(s): N39.0 - URINARY TRACT INFECTION, SITE NOT SPECIFIED (14) BEKA (acute kidney injury) Assessment/Plan: -Renal on board -BUN/Cr 21.1/0.7 -monitor real function Code(s): N17.9 - ACUTE KIDNEY FAILURE, UNSPECIFIED Assessment/Plan see problem list can begin d/c planning to SNF
[2019-10-01] MEDS ORDERED: FUROSEMIDE 20 MG TABLET (FP) PO SCH (10:00)
[2019-10-01] MEDS: DULoxetine HCL 20 MG CAPSULE.DR PO SCH (11:48)
[2019-10-01] MEDS: SENNOSIDES/DOCUSATE COMBO (SENNA PLUS) TABLET (UD) PO SCH ×2 (11:48→21:54)
[2019-10-01] MEDS: methylPREDNISolone NA SUCC 40 MG/1 ML VIAL IVPUSH SCH (11:49)
[2019-10-01] MEDS: APIXABAN 5 MG TABLET PO SCH ×2 (11:49→21:53)
[2019-10-01] MEDS: TAMSULOSIN HCL 0.4 MG CAP PO SCH (11:49)
[2019-10-01] MEDS: MULTIVITAMINS (DAILY MVI) TABLET (FP) PO SCH (11:49)
[2019-10-01] MEDS: FUROSEMIDE 40 MG/4 ML INJECTABLE VIAL IVPUSH SCH (11:49)
[2019-10-01] MEDS: PANTOPRAZOLE SODIUM 40 MG VIAL IVPUSH SCH (11:51)
[2019-10-01] MEDS: LIDOCAINE 5% TOPICAL PATCH TP SCH (11:51)
[2019-10-01] MEDS: COLCHICINE 0.6 MG CAP PO SCH (11:52)
[2019-10-01] MEDS: URSODIOL 300 MG CAPSULE PO SCH ×2 (11:53→21:53)
[2019-10-01] MEDS: POLYETHYLENE GLYCOL 3350 119 GM BTL PO SCH ×2 (11:53→21:54)
--- NOTE | 2019-10-01 12:31 | PN ---
Progress Note (short form) - Note Progress Note: PULMONARY Breathing better. Just taken off BiPAP. Vital Signs Period Temp Pulse Resp BP Sys/Enamorado Pulse Ox Last 24 Hr 97.5 F-98.2 F 69-85 17-20 115-135/55-73 95-98 Intake & Output 09/28/19 09/29/19 09/30/19 10/01/19 23:59 23:59 23:59 23:59 Intake Total 410 250 520 Output Total 2 Balance 410 250 518 Gen: mildly tachypneic at rest Heart: RRR Lung: decreased breath sounds at the bases Abd: soft, nontender Ext: no edema CBC, BMP 09/30/19 14:10 10/01/19 06:00 Active Medications Acetaminophen (Tylenol -) 650 mg PO Q6H PRN PRN Reason: FEVER OR PAIN LEVEL 1 - 3 Apixaban (Eliquis -) 5 mg PO BID [facility] Last Admin: 10/01/19 11:49 Dose: 5 mg Atorvastatin Calcium (Lipitor -) 40 mg PO HS [facility] Benzocaine/Menthol (Cepacol Lozenge -) 1 each MM Q2H PRN PRN Reason: SORE THROAT Colchicine (Colcrys) 0.6 mg PO DAILY [facility] Last Admin: 10/01/19 11:52 Dose: 0.6 mg Diltiazem HCl (Cardizem Cd -) 180 mg PO DAILY [facility] Last Admin: 10/01/19 11:48 Dose: 180 mg Duloxetine HCl (Cymbalta -) 40 mg PO DAILY [facility] Last Admin: 10/01/19 11:48 Dose: 40 mg Furosemide (Lasix Injection -) 20 mg IVPUSH DAILY [facility] Last Admin: 10/01/19 11:49 Dose: 20 mg Gabapentin (Neurontin -) 300 mg PO TID [facility] Last Admin: 10/01/19 05:37 Dose: 300 mg Insulin Aspart (Novolog Vial Sliding Scale -) 1 vial SQ ACHS [facility]; Protocol Last Admin: 10/01/19 06:08 Dose: Not Given Insulin Detemir (Levemir Vial) 10 units SQ 0700 [facility] Last Admin: 10/01/19 06:09 Dose: 10 units Lidocaine (Lidoderm Patch -) 1 patch TP DAILY [facility] Last Admin: 10/01/19 11:51 Dose: 1 patch Melatonin (Melatonin) 5 mg PO HS PRN PRN Reason: INSOMNIA Methylprednisolone Sodium Succinate (Solu-Medrol -) 40 mg IVPUSH DAILY [facility] Last Admin: 10/01/19 11:49 Dose: 40 mg Metoprolol Succinate (Toprol Xl -) 50 mg PO DAILY [facility] Last Admin: 10/01/19 11:47 Dose: 50 mg Miscellaneous (Lidoderm Patch Removal) 1 each MC DAILY@2200 [facility] Multivitamins/Minerals/Vitamin C (Tab-A-Vit -) 1 tab PO DAILY [facility] Last Admin: 10/01/19 11:49 Dose: 1 tab Pantoprazole Sodium (Protonix Iv) 40 mg IVPUSH DAILY [facility] Last Admin: 10/01/19 11:51 Dose: 40 mg Polyethylene Glycol (Miralax (For Daily Use) -) 17 gm PO BID [facility] Last Admin: 10/01/19 11:53 Dose: Not Given Senna/Docusate Sodium (Pericolace -) 1 tablet PO BID [facility] Last Admin: 10/01/19 11:48 Dose: 1 tablet Tamsulosin HCl (Flomax -) 0.4 mg PO DAILY@0830 [facility] Last Admin: 10/01/19 11:49 Dose: 0.4 mg Trazodone HCl (Desyrel -) [address] [facility] Ursodiol (Actigal -) 300 mg PO BID [facility] Last Admin: 10/01/19 11:53 Dose: 300 mg A/P Acute Hypoxic and Hypercapneic Respiratory Failure Acute Pulmonary Edema Acute on Chronic Diastolic Heart Failure Atrial Fibrillation with RVR r/o Pneumonia new bilateral patchy infiltrates UTI Acute Kidney Injury COPD Paget's Disease DM Anemia - rate control per cardiology - continue lasix - monitor urine output, creatinine - continue anticoagulation - BiPAP as needed to assist in work of breathing - O2 to keep SpO2 >90% - completed antibiotics - taper off medrol - inhaled bronchodilators
--- NOTE | 2019-10-01 15:39 | PN ---
Progress Note (short form) - Note Progress Note: 78 year old gentleman with history of CHF with reduced LVEF, Afib, Anemia and DM with recent admission for gross hematuria and BEKA now presents with diffuse body pain and joint pain with BEKA. 1. Acute kidney injury now resolved 2. Joint pains 3. CHF with reduced LVEF 4. Leukocytosis 5. Anemia afib dm recent hosp gross hematuria/beka Current Medications Acetaminophen (Tylenol -) 650 mg PO Q6H PRN PRN Reason: FEVER OR PAIN LEVEL 1 - 3 Apixaban (Eliquis -) 5 mg PO BID [facility] Last Admin: 10/01/19 11:49 Dose: 5 mg Atorvastatin Calcium (Lipitor -) 40 mg PO HS [facility] Benzocaine/Menthol (Cepacol Lozenge -) 1 each MM Q2H PRN PRN Reason: SORE THROAT Colchicine (Colcrys) 0.6 mg PO DAILY [facility] Last Admin: 10/01/19 11:52 Dose: 0.6 mg Diltiazem HCl (Cardizem Cd -) 180 mg PO DAILY [facility] Last Admin: 10/01/19 11:48 Dose: 180 mg Duloxetine HCl (Cymbalta -) 40 mg PO DAILY [facility] Last Admin: 10/01/19 11:48 Dose: 40 mg Furosemide (Lasix Injection -) 20 mg IVPUSH DAILY [facility] Last Admin: 10/01/19 11:49 Dose: 20 mg Gabapentin (Neurontin -) 300 mg PO TID [facility] Last Admin: 10/01/19 05:37 Dose: 300 mg Insulin Aspart (Novolog Vial Sliding Scale -) 1 vial SQ ACHS [facility]; Protocol Last Admin: 10/01/19 13:45 Dose: Not Given Insulin Detemir (Levemir Vial) 10 units SQ 0700 [facility] Last Admin: 10/01/19 06:09 Dose: 10 units Lidocaine (Lidoderm Patch -) 1 patch TP DAILY [facility] Last Admin: 10/01/19 11:51 Dose: 1 patch Melatonin (Melatonin) 5 mg PO HS PRN PRN Reason: INSOMNIA Metoprolol Succinate (Toprol Xl -) 50 mg PO DAILY [facility] Last Admin: 10/01/19 11:47 Dose: 50 mg Miscellaneous (Lidoderm Patch Removal) 1 each MC DAILY@2200 [facility] Multivitamins/Minerals/Vitamin C (Tab-A-Vit -) 1 tab PO DAILY [facility] Last Admin: 10/01/19 11:49 Dose: 1 tab Pantoprazole Sodium (Protonix Iv) 40 mg IVPUSH DAILY [facility] Last Admin: 10/01/19 11:51 Dose: 40 mg Polyethylene Glycol (Miralax (For Daily Use) -) 17 gm PO BID [facility] Last Admin: 10/01/19 11:53 Dose: Not Given Prednisone (Deltasone -) 30 mg PO DAILY [facility] Senna/Docusate Sodium (Pericolace -) 1 tablet PO BID [facility] Last Admin: 10/01/19 11:48 Dose: 1 tablet Tamsulosin HCl (Flomax -) 0.4 mg PO DAILY@0830 [facility] Last Admin: 10/01/19 11:49 Dose: 0.4 mg Trazodone HCl (Desyrel -) 50 mg PO [facility] Ursodiol (Actigal -) 300 mg PO BID [facility] Last Admin: 10/01/19 11:53 Dose: 300 mg Last Vital Signs Temp Pulse Resp BP Pulse Ox 97.6 F 72 16 139/72 98 10/01/19 05:06 10/01/19 10:00 10/01/19 10:00 10/01/19 10:00 10/01/19 10:00 CBC, BMP 09/30/19 14:10 10/01/19 06:00 IMP- beka urinary retention hf on lasix for leg edema tolerating current rx Plan- continue same
--- NOTE | 2019-10-01 17:26 | PN ---
Progress Note, Physician History of Present Illness: AWAKE ON BIPAP BREATHING NON LABORED AFEBRILE WBC REMAINS ELEVATED - Current Medication List Current Medications: Active Medications Acetaminophen (Tylenol -) 650 mg PO Q6H PRN PRN Reason: FEVER OR PAIN LEVEL 1 - 3 Apixaban (Eliquis -) 5 mg PO BID [facility] Last Admin: 10/01/19 11:49 Dose: 5 mg Atorvastatin Calcium (Lipitor -) 40 mg PO HS [facility] Benzocaine/Menthol (Cepacol Lozenge -) 1 each MM Q2H PRN PRN Reason: SORE THROAT Colchicine (Colcrys) 0.6 mg PO DAILY [facility] Last Admin: 10/01/19 11:52 Dose: 0.6 mg Diltiazem HCl (Cardizem Cd -) 180 mg PO DAILY [facility] Last Admin: 10/01/19 11:48 Dose: 180 mg Duloxetine HCl (Cymbalta -) 40 mg PO DAILY [facility] Last Admin: 10/01/19 11:48 Dose: 40 mg Furosemide (Lasix Injection -) 20 mg IVPUSH DAILY [facility] Last Admin: 10/01/19 11:49 Dose: 20 mg Gabapentin (Neurontin -) 300 mg PO TID [facility] Last Admin: 10/01/19 16:23 Dose: 300 mg Insulin Aspart (Novolog Vial Sliding Scale -) 1 vial SQ ACHS [facility]; Protocol Last Admin: 10/01/19 13:45 Dose: Not Given Insulin Detemir (Levemir Vial) 10 units SQ 0700 [facility] Last Admin: 10/01/19 06:09 Dose: 10 units Lidocaine (Lidoderm Patch -) 1 patch TP DAILY [facility] Last Admin: 10/01/19 11:51 Dose: 1 patch Melatonin (Melatonin) 5 mg PO HS PRN PRN Reason: INSOMNIA Metoprolol Succinate (Toprol Xl -) 50 mg PO DAILY [facility] Last Admin: 10/01/19 11:47 Dose: 50 mg Miscellaneous (Lidoderm Patch Removal) 1 each MC DAILY@2200 [facility] Multivitamins/Minerals/Vitamin C (Tab-A-Vit -) 1 tab PO DAILY [facility] Last Admin: 10/01/19 11:49 Dose: 1 tab Pantoprazole Sodium (Protonix Iv) 40 mg IVPUSH DAILY [facility] Last Admin: 10/01/19 11:51 Dose: 40 mg Polyethylene Glycol (Miralax (For Daily Use) -) 17 gm PO BID [facility] Last Admin: 10/01/19 11:53 Dose: Not Given Prednisone (Deltasone -) 30 mg PO DAILY [facility] Senna/Docusate Sodium (Pericolace -) 1 tablet PO BID [facility] Last Admin: 10/01/19 11:48 Dose: 1 tablet Tamsulosin HCl (Flomax -) 0.4 mg PO DAILY@0830 [facility] Last Admin: 10/01/19 11:49 Dose: 0.4 mg Trazodone HCl (Desyrel -) 50 mg PO [facility] Ursodiol (Actigal -) 300 mg PO BID [facility] Last Admin: 10/01/19 11:53 Dose: 300 mg - Objective Vital Signs: Vital Signs Temperature 97.6 F 10/01/19 05:06 Pulse Rate 72 10/01/19 10:00 Respiratory Rate 16 10/01/19 10:00 Blood Pressure 139/72 10/01/19 10:00 O2 Sat by Pulse Oximetry (%) 98 10/01/19 10:00 Constitutional: Yes: No Distress Eyes: Yes: Conjunctiva Clear Cardiovascular: Yes: Regular Rate and Rhythm, S1, S2 Respiratory: Yes: Diminished Gastrointestinal: Yes: Normal Bowel Sounds, Soft Labs: CBC, BMP 09/30/19 14:10 10/01/19 06:00 INR, PTT INR 3.09 (0.83-1.09) H 09/20/19 22:24 Assessment/Plan LEUKOCYTOSIS CHF/ PLEURAL EFFUSIONS S/P COURSE OF ZOSYN OBSERVE OFF ANTIBIOTICS
[2019-10-01] MEDS: ATORVASTATIN CA 40 MG TABLET (FP) PO SCH (21:53)
[2019-10-01] MEDS: LIDOCAINE PATCH REMOVAL MC SCH (21:53)
[2019-10-01] MEDS: traZODone HCL 50 MG TABLET (FP) PO SCH (21:53)
[2019-10-02] MEDS: INSULIN SLIDING SCALE (NOVOLOG) 1 VIAL SQ SCH ×4 (06:20→23:47)
[2019-10-02] MEDS: INSULIN (LEVEMIR) 100 UNITS/ML UNITS SQ SCH (06:21)
[2019-10-02] MEDS: GABAPENTIN 300 MG CAPSULE (FP) PO SCH ×3 (06:21→23:45)
[2019-10-02 07:12] LABS: HEMATOCRIT 28.4 % (35.4-49); MCH 30.8 pg (25.7-33.7); MCHC 31.8 g/dl (32.0-35.9); MEAN CELL VOLUME 96.8 fl (80-96); MEAN PLT VOLUME 7.8 fl (7.5-11.1); PLATELET COUNT 325 K/MM3 (134-434); RBC 2.93 M/mm3 (4.00-5.60); RDW 19.5 % (11.9-15.9); WHITE BLOOD COUNT 18.4 K/mm3 (4.0-10.0)
[2019-10-02 07:28] LABS: ALBUMIN 2.6 g/dl (3.4-5.0); BILIRUBIN,TOTAL 0.8 mg/dL (0.2-1); CALCIUM 9.1 mg/dL (8.5-10.1); CREATININE 0.8 mg/dL (0.55-1.3); POTASSIUM 4.1 mmol/L (3.5-5.1); TOT PROT 5.4 g/dl (6.4-8.2)
--- NOTE | 2019-10-02 07:49 | PN ---
Progress Note (short form) - Note Progress Note: Coverage for Drs. Ginger Sadler/Vonnie Serra Chief Complaint: Events noted, notes reviewed, await and alert- resting in bed off of BiPAP, denies any chest pain History of Present Illness: Seen and examined on telemetry. Events noted, notes reviewed, await and alert- resting in bed off of BiPAP, denies any chest pain As noted on yesterday's note reported paroxysmal atrial fibrillation; initial EKG review revealed MAT/muti- focal atrial tachycardia with non sustained SVT probable ectopic atrial tachycardia - Current Medication List Current Medications Acetaminophen (Tylenol -) 650 mg PO Q6H PRN PRN Reason: FEVER OR PAIN LEVEL 1 - 3 Apixaban (Eliquis -) 5 mg PO BID [facility] Last Admin: 10/01/19 21:53 Dose: 5 mg Atorvastatin Calcium (Lipitor -) 40 mg PO HS [facility] Last Admin: 10/01/19 21:53 Dose: 40 mg Benzocaine/Menthol (Cepacol Lozenge -) 1 each MM Q2H PRN PRN Reason: SORE THROAT Colchicine (Colcrys) 0.6 mg PO DAILY [facility] Last Admin: 10/01/19 11:52 Dose: 0.6 mg Diltiazem HCl (Cardizem Cd -) 180 mg PO DAILY [facility] Last Admin: 10/01/19 11:48 Dose: 180 mg Duloxetine HCl (Cymbalta -) 40 mg PO DAILY [facility] Last Admin: 10/01/19 11:48 Dose: 40 mg Furosemide (Lasix Injection -) 20 mg IVPUSH DAILY [facility] Last Admin: 10/01/19 11:49 Dose: 20 mg Gabapentin (Neurontin -) 300 mg PO TID [facility] Last Admin: 10/02/19 06:21 Dose: 300 mg Insulin Aspart (Novolog Vial Sliding Scale -) 1 vial SQ ACHS [facility]; Protocol Last Admin: 10/02/19 06:20 Dose: Not Given Insulin Detemir (Levemir Vial) 10 units SQ 0700 [facility] Last Admin: 10/02/19 06:21 Dose: 10 units Lidocaine (Lidoderm Patch -) 1 patch TP DAILY [facility] Last Admin: 10/01/19 11:51 Dose: 1 patch Melatonin (Melatonin) 5 mg PO HS PRN PRN Reason: INSOMNIA Metoprolol Succinate (Toprol Xl -) 50 mg PO DAILY [facility] Last Admin: 10/01/19 11:47 Dose: 50 mg Miscellaneous (Lidoderm Patch Removal) 1 each MC DAILY@2200 [facility] Last Admin: 10/01/19 21:53 Dose: 1 each Multivitamins/Minerals/Vitamin C (Tab-A-Vit -) 1 tab PO DAILY [facility] Last Admin: 10/01/19 11:49 Dose: 1 tab Pantoprazole Sodium (Protonix Iv) 40 mg IVPUSH DAILY [facility] Last Admin: 10/01/19 11:51 Dose: 40 mg Polyethylene Glycol (Miralax (For Daily Use) -) 17 gm PO BID [facility] Last Admin: 10/01/19 21:54 Dose: Not Given Prednisone (Deltasone -) 30 mg PO DAILY [facility] Senna/Docusate Sodium (Pericolace -) 1 tablet PO BID [facility] Last Admin: 10/01/19 21:54 Dose: Not Given Tamsulosin HCl (Flomax -) 0.4 mg PO DAILY@0830 [facility] Last Admin: 10/01/19 11:49 Dose: 0.4 mg Trazodone HCl (Desyrel -) 50 mg PO HS [facility] Last Admin: 10/01/19 21:53 Dose: 50 mg Ursodiol (Actigal -) 300 mg PO BID [facility] Last Admin: 10/01/19 21:53 Dose: 300 mg Review of Systems Unable to obtain` - Objective Vital Signs: Last Vital Signs Temp Pulse Resp BP Pulse Ox 97.6 F 87 20 144/72 98 10/02/19 09:43 10/02/19 09:43 10/02/19 09:43 10/02/19 09:43 10/02/19 07:40 Intake & Output 09/29/19 09/30/19 10/01/19 10/02/19 23:59 23:59 23:59 23:59 Intake Total 250 520 260 490 Output Total 2 Balance 250 518 260 490 Neck: Supple Negative JVD No Bruit Respiratory: Scattered Rhonchi Bilaterally Cardiovascular: S1 S2 Irregularly Irregular Gastrointestinal: Soft Benign Normal Bowel Sounds Ext: Edema Labs: CBC, BMP 10/02/19 06:40 10/02/19 06:40 Hepatic Panel Total Bilirubin 0.8 mg/dL (0.2-1) 10/02/19 06:40 AST 11 U/L (15-37) L 10/02/19 06:40 ALT 18 U/L (13-61) 10/02/19 06:40 Alkaline Phosphatase 85 U/L (45-117) 10/02/19 06:40 Albumin 2.6 g/dl (3.4-5.0) L 10/02/19 06:40 INR, PTT INR 3.09 (0.83-1.09) H 09/20/19 22:24 Assessment/Plan ASSESSMENT: 1. Acute on chronic respiratory failure related to 2. Acute on chronic class I-II NYHA classification LV diastolic/systolic failure , clinically resolving- and 3. Pneumonia- COPD exacerbation 4. CAD/visual CAC coronary artery calcification- image review angina pectoris 5. Reported paroxysmal atrial fibrillation [id number] score of 4 on DOAC's/ Eliquis, currently evidence of MAT/mutifocal atrial tachycardia- as noted above 6. Paroxysmal non sustained tachycardia 7. Hypertension 8. DM 9. Hyperlipidemia 10. Pre-renal azotemia 11. Anemia PLAN: 1. Continue Lasix IV for an additional 24 hours with close monitoring of renal function and electrolytes, evidence of pre-renal azotemia 2. Continue Toprol XL 3. Continue Cardizem CD 4. Continue Eliquis, A/C may need to be readdressed since initial EKG revealed MAT- to be reviewed with the primary cardiology team 5. Continue Lipitor 6. Antibiotics as per the primary team/ID service 7. may be transferred to floor care from the cardiovascular point of view Liam Carrera M.D.
--- NOTE | 2019-10-02 09:41 | PN ---
Progress Note, Physician Chief Complaint: Pneumonia Afib History of Present Illness: Previous notes and events reviewed awake and alert breathing on NC NAD denies palpiations leukocytosis complain of loose BMs - Current Medication List Current Medications: Active Medications Acetaminophen (Tylenol -) 650 mg PO Q6H PRN PRN Reason: FEVER OR PAIN LEVEL 1 - 3 Apixaban (Eliquis -) 5 mg PO BID [facility] Last Admin: 10/01/19 21:53 Dose: 5 mg Atorvastatin Calcium (Lipitor -) 40 mg PO HS [facility] Last Admin: 10/01/19 21:53 Dose: 40 mg Benzocaine/Menthol (Cepacol Lozenge -) 1 each MM Q2H PRN PRN Reason: SORE THROAT Colchicine (Colcrys) 0.6 mg PO DAILY [facility] Last Admin: 10/01/19 11:52 Dose: 0.6 mg Diltiazem HCl (Cardizem Cd -) 180 mg PO DAILY [facility] Last Admin: 10/01/19 11:48 Dose: 180 mg Duloxetine HCl (Cymbalta -) 40 mg PO DAILY [facility] Last Admin: 10/01/19 11:48 Dose: 40 mg Furosemide (Lasix Injection -) 20 mg IVPUSH DAILY [facility] Last Admin: 10/01/19 11:49 Dose: 20 mg Gabapentin (Neurontin -) 300 mg PO TID [facility] Last Admin: 10/02/19 06:21 Dose: 300 mg Insulin Aspart (Novolog Vial Sliding Scale -) 1 vial SQ ACHS [facility]; Protocol Last Admin: 10/02/19 06:20 Dose: Not Given Insulin Detemir (Levemir Vial) 10 units SQ 0700 [facility] Last Admin: 10/02/19 06:21 Dose: 10 units Lidocaine (Lidoderm Patch -) 1 patch TP DAILY [facility] Last Admin: 10/01/19 11:51 Dose: 1 patch Melatonin (Melatonin) 5 mg PO HS PRN PRN Reason: INSOMNIA Metoprolol Succinate (Toprol Xl -) 50 mg PO DAILY [facility] Last Admin: 10/01/19 11:47 Dose: 50 mg Miscellaneous (Lidoderm Patch Removal) 1 each MC DAILY@2200 [facility] Last Admin: 10/01/19 21:53 Dose: 1 each Multivitamins/Minerals/Vitamin C (Tab-A-Vit -) 1 tab PO DAILY [facility] Last Admin: 10/01/19 11:49 Dose: 1 tab Pantoprazole Sodium (Protonix Iv) 40 mg IVPUSH DAILY [facility] Last Admin: 10/01/19 11:51 Dose: 40 mg Polyethylene Glycol (Miralax (For Daily Use) -) 17 gm PO BID [facility] Last Admin: 10/01/19 21:54 Dose: Not Given Prednisone (Deltasone -) 30 mg PO DAILY [facility] Senna/Docusate Sodium (Pericolace -) 1 tablet PO BID [facility] Last Admin: 10/01/19 21:54 Dose: Not Given Tamsulosin HCl (Flomax -) 0.4 mg PO DAILY@0830 [facility] Last Admin: 10/01/19 11:49 Dose: 0.4 mg Trazodone HCl (Desyrel -) 50 mg PO HS [facility] Last Admin: 10/01/19 21:53 Dose: 50 mg Ursodiol (Actigal -) 300 mg PO BID [facility] Last Admin: 10/01/19 21:53 Dose: 300 mg - Objective Vital Signs: Vital Signs Temperature 98.8 F 10/01/19 17:00 Pulse Rate 86 10/01/19 22:00 Respiratory Rate 20 10/01/19 20:39 Blood Pressure 130/70 10/01/19 20:39 O2 Sat by Pulse Oximetry (%) 98 10/02/19 07:40 Constitutional: Yes: No Distress, Calm Eyes: Yes: Conjunctiva Clear HENT: Yes: Atraumatic Cardiovascular: Yes: Pulse Irregular Respiratory: Yes: Regular, Cough, Diminished, On Nasal O2 Gastrointestinal: Yes: Normal Bowel Sounds, Soft Genitourinary: Yes: Incontinence Musculoskeletal: Yes: Joint Swelling (b/l hands, L knee), Muscle Weakness Extremities: Yes: WNL Neurological: Yes: Alert Psychiatric: Yes: Alert Labs: CBC, BMP 10/02/19 06:40 10/02/19 06:40 INR, PTT INR 3.09 (0.83-1.09) H 09/20/19 22:24 Microbiology 09/21/19 00:00 Blood - Peripheral Venous Blood Culture - Final NO GROWTH AFTER 5 DAYS INCUBATION 09/21/19 00:00 Blood - Peripheral Venous Blood Culture - Final NO GROWTH AFTER 5 DAYS INCUBATION 09/21/19 18:00 Synovial Fluid - Knee Gram Stain - Final 09/21/19 18:00 Synovial Fluid - Knee Body Fluid Culture - Final NO GROWTH OF AEROBIC ORGANISMS AFTER 48 HOURS INCUBATION 09/21/19 18:00 Synovial Fluid - Knee Anaerobic Culture - Final NO ANAEROBES WERE ISOLATED 09/22/19 19:45 Urine For Antigen Detection Legionella Antigen - Final 09/22/19 19:45 Urine For Antigen Detection Streptococcus pneumoniae Antigen (M - Final 09/21/19 18:40 Nares - Mrsa Screen - Right MRSA Screen - Final NO MRSA ISOLATED 09/21/19 18:40 Nares - Mrsa Screen - Left MRSA Screen - Final NO MRSA ISOLATED 09/21/19 00:28 Urine - Urine - Catheterized Urine Culture - Final NO GROWTH OBTAINED Problem List - Problems (1) Tachycardia Assessment/Plan: -Cardiology on board -rate controlled with Metoprolol and Cardizem -tele monitoring Code(s): R00.0 - TACHYCARDIA, UNSPECIFIED (2) Acute on chronic respiratory failure with hypoxia and hypercapnia Assessment/Plan: -Pulm on board -Bronchodilators -O2 via C -Bipap HS -Prednisone -CHest CT shows atelectasis/infiltration at both bases -Keep SpO2 >90% -repeat Chest CT scan shows diffuse bilateral patchy infiltrates suspicious for pneumonia or congestion that have developed since 09/21/2019, persistent bibasilar atelectasis, left greater than right, and small bilateral pleural effusion Code(s): J96.21 - ACUTE AND CHRONIC RESPIRATORY FAILURE WITH HYPOXIA; J96.22 - ACUTE AND CHRONIC RESPIRATORY FAILURE WITH HYPERCAPNIA (3) Leukocytosis Assessment/Plan: -WBC 18.4 -afebrile -BC and UC neg -MRSA screen neg -Legionella neg -Vancomycin and Zosyn discontinued, monitor off -ID on board -Tylenol for temp >100F -repeat Chest CT scan shows diffuse bilateral patchy infiltrates suspicious for pneumonia or congestion that have developed since 09/21/2019, persistent bibasilar atelectasis, left greater than right, and small bilateral pleural effusion -reconsult ID Code(s): D72.829 - ELEVATED WHITE BLOOD CELL COUNT, UNSPECIFIED Qualifiers: Leukocytosis type: unspecified Qualified Code(s): D72.829 - Elevated white blood cell count, unspecified (4) Paget's bone disease Assessment/Plan: -Hematology on board Code(s): M88.9 - OSTEITIS DEFORMANS OF UNSPECIFIED BONE (5) Pneumonia Assessment/Plan: -WBC 21.2 -afebrile -BC neg -MRSA screen neg -Urine Legionella neg -Vancomycin and Zosyn, completed course monitor off -ID on board -Tylenol for temp >100F -Pulm on board -Bronchodilators -O2 via NC -Bipap HS and PRN -Prednisone -CHest CT shows atelectasis/infiltration at both bases -Keep SpO2 >90% -repeat Chest CT scan shows diffuse bilateral patchy infiltrates suspicious for pneumonia or congestion that have developed since 09/21/2019, persistent bibasilar atelectasis, left greater than right, and small bilateral pleural effusion -reconsult ID Code(s): J18.9 - PNEUMONIA, UNSPECIFIED ORGANISM Qualifiers: Pneumonia type: due to unspecified organism Laterality: left Lung location: lower lobe of lung Qualified Code(s): J18.9 - Pneumonia, unspecified organism (6) Polyarthralgia Assessment/Plan: -Rheumatology on board -ESR >140, CRP 41.6, Uric Acid wnl -pain control -s/p aspiration L knee~fluid positive for monosodium urate crystals -Prednisone -Colchicine Code(s): M25.50 - PAIN IN UNSPECIFIED JOINT (7) Anemia Assessment/Plan: -Anemia panel reviewed -Hg 9.0 -monitor H/H -transfuse for Hg <7.0 to avoid fluid overload Code(s): D64.9 - ANEMIA, UNSPECIFIED (8) Atrial fibrillation Assessment/Plan: -Eliquis BID -rate controlled with Metoprolol and Cardizem Code(s): I48.91 - UNSPECIFIED ATRIAL FIBRILLATION (9) HLD (hyperlipidemia) Assessment/Plan: -Atorvastatin Code(s): E78.5 - HYPERLIPIDEMIA, UNSPECIFIED Qualifiers: Hyperlipidemia type: other hyperlipidemia Qualified Code(s): E78.49 - Other hyperlipidemia; E78.4 - Other hyperlipidemia (10) Hypertension Assessment/Plan: -Amlodipine -low Na diet Code(s): I10 - ESSENTIAL (PRIMARY) HYPERTENSION Qualifiers: Hypertension type: unspecified Qualified Code(s): I10 - Essential (primary ) hypertension (11) BPH (benign prostatic hyperplasia) Assessment/Plan: -Tamsulosin Code(s): N40.0 - BENIGN PROSTATIC HYPERPLASIA WITHOUT LOWER URINRY TRACT SYMP (12) Diabetes Assessment/Plan: -BGM ACHS -Levemir -ISS Code(s): E11.9 - TYPE 2 DIABETES MELLITUS WITHOUT COMPLICATIONS Qualifiers: Diabetes mellitus type: other specified (including TAN) Diabetes mellitus nursing home insulin use: unspecified nursing home insulin use status Diabetes mellitus complication status: with other specified complication Qualified Code (s): E13.69 - Other specified diabetes mellitus with other specified complication (13) UTI (urinary tract infection) Assessment/Plan: -ID on board -leukocytosis -afebrile -UA shows 3+ leuks, 3+ protein, 2+ bilirubin -UC neg Code(s): N39.0 - URINARY TRACT INFECTION, SITE NOT SPECIFIED (14) BEKA (acute kidney injury) Assessment/Plan: -Renal on board -BUN/Cr 21.0/0.8 -monitor real function Code(s): N17.9 - ACUTE KIDNEY FAILURE, UNSPECIFIED Assessment/Plan see problem list can begin d/c planning to SNF
[2019-10-02] MEDS ORDERED: predniSONE 10 MG TABLET (UD) PO SCH (10:00)
[2019-10-02] MEDS: URSODIOL 300 MG CAPSULE PO SCH (11:25)
[2019-10-02] MEDS: TAMSULOSIN HCL 0.4 MG CAP PO SCH (11:25)
[2019-10-02] MEDS: COLCHICINE 0.6 MG CAP PO SCH (11:26)
[2019-10-02] MEDS: DULoxetine HCL 20 MG CAPSULE.DR PO SCH (11:26)
[2019-10-02] MEDS: FUROSEMIDE 40 MG/4 ML INJECTABLE VIAL IVPUSH SCH (11:27)
[2019-10-02] MEDS: LIDOCAINE 5% TOPICAL PATCH TP SCH (11:27)
[2019-10-02] MEDS: APIXABAN 5 MG TABLET PO SCH ×2 (11:27→23:44)
[2019-10-02] MEDS: POLYETHYLENE GLYCOL 3350 119 GM BTL PO SCH ×2 (11:28→23:47)
[2019-10-02] MEDS: PANTOPRAZOLE SODIUM 40 MG VIAL IVPUSH SCH (11:28)
[2019-10-02] MEDS: SENNOSIDES/DOCUSATE COMBO (SENNA PLUS) TABLET (UD) PO SCH ×2 (11:28→23:44)
[2019-10-02] MEDS: MULTIVITAMINS (DAILY MVI) TABLET (FP) PO SCH (11:29)
--- NOTE | 2019-10-02 13:06 | PN ---
Progress Note (short form) - Note Progress Note: PULMONARY Breathing better. Tolerating nasal cannula. Vital Signs Period Temp Pulse Resp BP Sys/Enamorado Pulse Ox Last 24 Hr 97.6 F-98.8 F 79-87 20-20 117-144/56-72 95-100 Intake & Output 09/29/19 09/30/19 10/01/19 10/02/19 23:59 23:59 23:59 23:59 Intake Total 250 520 260 490 Output Total 2 Balance 250 518 260 490 Gen: mildly tachypneic at rest Heart: RRR Lung: decreased breath sounds at the bases Abd: soft, nontender Ext: no edema CBC, BMP 10/02/19 06:40 10/02/19 06:40 Active Medications Acetaminophen (Tylenol -) 650 mg PO Q6H PRN PRN Reason: FEVER OR PAIN LEVEL 1 - 3 Apixaban (Eliquis -) 5 mg PO BID [facility] Last Admin: 10/02/19 11:27 Dose: 5 mg Atorvastatin Calcium (Lipitor -) 40 mg PO HS [facility] Last Admin: 10/01/19 21:53 Dose: 40 mg Benzocaine/Menthol (Cepacol Lozenge -) 1 each MM Q2H PRN PRN Reason: SORE THROAT Colchicine (Colcrys) 0.6 mg PO DAILY [facility] Last Admin: 10/02/19 11:26 Dose: 0.6 mg Diltiazem HCl (Cardizem Cd -) 180 mg PO DAILY [facility] Last Admin: 10/02/19 11:25 Dose: 180 mg Duloxetine HCl (Cymbalta -) 40 mg PO DAILY [facility] Last Admin: 10/02/19 11:26 Dose: 40 mg Furosemide (Lasix Injection -) 20 mg IVPUSH DAILY [facility] Last Admin: 10/02/19 11:27 Dose: 20 mg Gabapentin (Neurontin -) 300 mg PO TID [facility] Last Admin: 10/02/19 06:21 Dose: 300 mg Insulin Aspart (Novolog Vial Sliding Scale -) 1 vial SQ ACHS [facility]; Protocol Last Admin: 10/02/19 12:25 Dose: Not Given Insulin Detemir (Levemir Vial) 10 units SQ 0700 [facility] Last Admin: 10/02/19 06:21 Dose: 10 units Lidocaine (Lidoderm Patch -) 1 patch TP DAILY [facility] Last Admin: 10/02/19 11:27 Dose: 1 patch Melatonin (Melatonin) 5 mg PO HS PRN PRN Reason: INSOMNIA Metoprolol Succinate (Toprol Xl -) 50 mg PO DAILY [facility] Last Admin: 10/02/19 11:30 Dose: 50 mg Miscellaneous (Lidoderm Patch Removal) 1 each MC DAILY@2200 [facility] Last Admin: 10/01/19 21:53 Dose: 1 each Multivitamins/Minerals/Vitamin C (Tab-A-Vit -) 1 tab PO DAILY [facility] Last Admin: 10/02/19 11:29 Dose: 1 tab Pantoprazole Sodium (Protonix Iv) 40 mg IVPUSH DAILY [facility] Last Admin: 10/02/19 11:28 Dose: 40 mg Polyethylene Glycol (Miralax (For Daily Use) -) 17 gm PO BID [facility] Last Admin: 10/02/19 11:28 Dose: Not Given Prednisone (Deltasone -) 30 mg PO DAILY [facility] Last Admin: 10/02/19 11:26 Dose: 30 mg Senna/Docusate Sodium (Pericolace -) 1 tablet PO BID [facility] Last Admin: 10/02/19 11:28 Dose: Not Given Tamsulosin HCl (Flomax -) 0.4 mg PO DAILY@0830 [facility] Last Admin: 10/02/19 11:25 Dose: 0.4 mg Trazodone HCl (Desyrel -) 50 mg PO HS [facility] Last Admin: 10/01/19 21:53 Dose: 50 mg Ursodiol (Actigal -) 300 mg PO BID [facility] Last Admin: 10/02/19 11:25 Dose: 300 mg A/P Acute Hypoxic and Hypercapneic Respiratory Failure Acute Pulmonary Edema Acute on Chronic Diastolic Heart Failure Atrial Fibrillation with RVR r/o Pneumonia new bilateral patchy infiltrates UTI Acute Kidney Injury COPD Paget's Disease DM Anemia - rate control per cardiology - continue lasix - monitor urine output, creatinine - continue anticoagulation - BiPAP as needed to assist in work of breathing - O2 to keep SpO2 >90% - completed antibiotics - taper off prednisone - inhaled bronchodilators
--- NOTE | 2019-10-02 21:57 | PN ---
Progress Note (short form) - Note Progress Note: problems 1. Acute kidney injury now resolved 2. Joint pains 3. CHF with reduced LVEF 4. Leukocytosis 5. Anemia afib dm recent hosp gross hematuria/ele Current Medications Acetaminophen (Tylenol -) 650 mg PO Q6H PRN PRN Reason: FEVER OR PAIN LEVEL 1 - 3 Apixaban (Eliquis -) 5 mg PO BID [facility] Last Admin: 10/02/19 11:27 Dose: 5 mg Atorvastatin Calcium (Lipitor -) 40 mg PO HS [facility] Last Admin: 10/01/19 21:53 Dose: 40 mg Benzocaine/Menthol (Cepacol Lozenge -) 1 each MM Q2H PRN PRN Reason: SORE THROAT Colchicine (Colcrys) 0.6 mg PO DAILY [facility] Last Admin: 10/02/19 11:26 Dose: 0.6 mg Diltiazem HCl (Cardizem Cd -) 180 mg PO DAILY [facility] Last Admin: 10/02/19 11:25 Dose: 180 mg Duloxetine HCl (Cymbalta -) 40 mg PO DAILY [facility] Last Admin: 10/02/19 11:26 Dose: 40 mg Furosemide (Lasix Injection -) 20 mg IVPUSH DAILY [facility] Last Admin: 10/02/19 11:27 Dose: 20 mg Gabapentin (Neurontin -) 300 mg PO TID [facility] Last Admin: 10/02/19 14:30 Dose: 300 mg Insulin Aspart (Novolog Vial Sliding Scale -) 1 vial SQ ACHS [facility]; Protocol Last Admin: 10/02/19 17:02 Dose: 4 units Insulin Detemir (Levemir Vial) 10 units SQ 0700 [facility] Last Admin: 10/02/19 06:21 Dose: 10 units Lidocaine (Lidoderm Patch -) 1 patch TP DAILY [facility] Last Admin: 10/02/19 11:27 Dose: 1 patch Melatonin (Melatonin) 5 mg PO HS PRN PRN Reason: INSOMNIA Metoprolol Succinate (Toprol Xl -) 50 mg PO DAILY [facility] Last Admin: 10/02/19 11:30 Dose: 50 mg Miscellaneous (Lidoderm Patch Removal) 1 each MC DAILY@2200 [facility] Last Admin: 10/01/19 21:53 Dose: 1 each Multivitamins/Minerals/Vitamin C (Tab-A-Vit -) 1 tab PO DAILY [facility] Last Admin: 10/02/19 11:29 Dose: 1 tab Pantoprazole Sodium (Protonix Iv) 40 mg IVPUSH DAILY [facility] Last Admin: 10/02/19 11:28 Dose: 40 mg Polyethylene Glycol (Miralax (For Daily Use) -) 17 gm PO BID [facility] Last Admin: 10/02/19 11:28 Dose: Not Given Prednisone (Deltasone -) 20 mg PO DAILY [facility] Senna/Docusate Sodium (Pericolace -) 1 tablet PO BID [facility] Last Admin: 10/02/19 11:28 Dose: Not Given Tamsulosin HCl (Flomax -) 0.4 mg PO DAILY@0830 [facility] Last Admin: 10/02/19 11:25 Dose: 0.4 mg Trazodone HCl (Desyrel -) 50 mg PO HS [facility] Last Admin: 10/01/19 21:53 Dose: 50 mg Ursodiol (Actigal -) 300 mg PO BID [facility] Last Admin: 10/02/19 11:25 Dose: 300 mg Last Vital Signs Temp Pulse Resp BP Pulse Ox 98.2 F 75 20 133/90 98 10/02/19 17:00 10/02/19 17:00 10/02/19 17:00 10/02/19 17:00 10/02/19 16:13 lungs yulisa heart reg abd soft ext min edema CBC, BMP 10/02/19 06:40 10/02/19 06:40 CBC, BMP 09/30/19 14:10 10/01/19 06:00 IMP- ele urinary retention hf on lasix for leg edema tolerating current rx Plan- continue same
[2019-10-02] MEDS: traZODone HCL 50 MG TABLET (FP) PO SCH (23:44)
[2019-10-02] MEDS: ATORVASTATIN CA 40 MG TABLET (FP) PO SCH (23:45)
[2019-10-02] MEDS: LIDOCAINE PATCH REMOVAL MC SCH (23:46)
[2019-10-03] MEDS: URSODIOL 300 MG CAPSULE PO SCH ×3 (01:43→22:18)
[2019-10-03] MEDS: INSULIN (LEVEMIR) 100 UNITS/ML UNITS SQ SCH (06:37)
[2019-10-03] MEDS: INSULIN SLIDING SCALE (NOVOLOG) 1 VIAL SQ SCH ×4 (06:37→22:21)
[2019-10-03] MEDS: GABAPENTIN 300 MG CAPSULE (FP) PO SCH ×3 (06:39→22:17)
--- NOTE | 2019-10-03 08:08 | PN ---
Progress Note, Physician Chief Complaint: Cardiology - Current Medication List Current Medications: Active Medications Acetaminophen (Tylenol -) 650 mg PO Q6H PRN PRN Reason: FEVER OR PAIN LEVEL 1 - 3 Apixaban (Eliquis -) 5 mg PO BID [facility] Last Admin: 10/02/19 23:44 Dose: 5 mg Atorvastatin Calcium (Lipitor -) 40 mg PO HS [facility] Last Admin: 10/02/19 23:45 Dose: 40 mg Benzocaine/Menthol (Cepacol Lozenge -) 1 each MM Q2H PRN PRN Reason: SORE THROAT Colchicine (Colcrys) 0.6 mg PO DAILY [facility] Last Admin: 10/02/19 11:26 Dose: 0.6 mg Diltiazem HCl (Cardizem Cd -) 180 mg PO DAILY [facility] Last Admin: 10/02/19 11:25 Dose: 180 mg Duloxetine HCl (Cymbalta -) 40 mg PO DAILY [facility] Last Admin: 10/02/19 11:26 Dose: 40 mg Furosemide (Lasix Injection -) 20 mg IVPUSH DAILY [facility] Last Admin: 10/02/19 11:27 Dose: 20 mg Gabapentin (Neurontin -) 300 mg PO TID [facility] Last Admin: 10/03/19 06:39 Dose: 300 mg Insulin Aspart (Novolog Vial Sliding Scale -) 1 vial SQ ACHS [facility]; Protocol Last Admin: 10/03/19 06:37 Dose: Not Given Insulin Detemir (Levemir Vial) 10 units SQ 0700 [facility] Last Admin: 10/03/19 06:37 Dose: 10 units Lidocaine (Lidoderm Patch -) 1 patch TP DAILY [facility] Last Admin: 10/02/19 11:27 Dose: 1 patch Melatonin (Melatonin) 5 mg PO HS PRN PRN Reason: INSOMNIA Metoprolol Succinate (Toprol Xl -) 50 mg PO DAILY [facility] Last Admin: 10/02/19 11:30 Dose: 50 mg Miscellaneous (Lidoderm Patch Removal) 1 each MC DAILY@2200 [facility] Last Admin: 10/02/19 23:46 Dose: 1 each Multivitamins/Minerals/Vitamin C (Tab-A-Vit -) 1 tab PO DAILY [facility] Last Admin: 10/02/19 11:29 Dose: 1 tab Pantoprazole Sodium (Protonix Iv) 40 mg IVPUSH DAILY [facility] Last Admin: 10/02/19 11:28 Dose: 40 mg Polyethylene Glycol (Miralax (For Daily Use) -) 17 gm PO BID [facility] Last Admin: 10/02/19 23:47 Dose: Not Given Prednisone (Deltasone -) 20 mg PO DAILY [facility] Senna/Docusate Sodium (Pericolace -) 1 tablet PO BID [facility] Last Admin: 10/02/19 23:44 Dose: 1 tablet Tamsulosin HCl (Flomax -) 0.4 mg PO DAILY@0830 [facility] Last Admin: 10/02/19 11:25 Dose: 0.4 mg Trazodone HCl (Desyrel -) 50 mg PO HS [facility] Last Admin: 10/02/19 23:44 Dose: 50 mg Ursodiol (Actigal -) 300 mg PO BID [facility] Last Admin: 10/03/19 01:43 Dose: 300 mg - Objective Vital Signs: Vital Signs Temperature 98.3 F 10/03/19 05:40 Pulse Rate 65 10/03/19 05:40 Respiratory Rate 20 10/03/19 05:40 Blood Pressure 138/60 10/03/19 05:40 O2 Sat by Pulse Oximetry (%) 99 10/02/19 22:00 Eyes: Yes: WNL, Conjunctiva Clear, EOM Intact HENT: Yes: WNL, Atraumatic, Normocephalic Neck: Yes: WNL, Supple, Trachea Midline Cardiovascular: Yes: Pulse Irregular, S1, S2 Respiratory: Yes: WNL, Regular, CTA Bilaterally Gastrointestinal: Yes: WNL, Normal Bowel Sounds Genitourinary: Yes: WNL Musculoskeletal: Yes: WNL Extremities: Yes: WNL Edema: No Integumentary: Yes: WNL Neurological: Yes: WNL, Alert, Oriented ...Motor Strength: WNL Psychiatric: Yes: WNL Labs: CBC, BMP 10/02/19 06:40 10/02/19 06:40 INR, PTT INR 3.09 (0.83-1.09) H 09/20/19 22:24 Assessment/Plan - Problems r/o chf h/o high BNP sob will rechec bnp start lasix IV 20 mg monitor bnp Code(s): E86.0 - DEHYDRATION (2) Acute on chronic respiratory failure with hypoxia and hypercapnia Assessment/Plan: on Bipap nightly. Encourage physical and pulmonary rehabilitation. Code(s): J96.21 - ACUTE AND CHRONIC RESPIRATORY FAILURE WITH HYPOXIA; J96.22 - ACUTE AND CHRONIC RESPIRATORY FAILURE WITH HYPERCAPNIA (3) Leukocytosis Code(s): D72.829 - ELEVATED WHITE BLOOD CELL COUNT, UNSPECIFIED Qualifiers: Leukocytosis type: unspecified Qualified Code(s): D72.829 - Elevated white blood cell count, unspecified (4) Paget's bone disease Code(s): M88.9 - OSTEITIS DEFORMANS OF UNSPECIFIED BONE (5) Pneumonia Assessment/Plan: on antibitotics per ID. Code(s): J18.9 - PNEUMONIA, UNSPECIFIED ORGANISM Qualifiers: Pneumonia type: due to unspecified organism Laterality: left Lung location: lower lobe of lung Qualified Code(s): J18.9 - Pneumonia, unspecified organism (6) Depression Code(s): F32.9 - MAJOR DEPRESSIVE DISORDER, SINGLE EPISODE, UNSPECIFIED (7) Diabetes Code(s): E11.9 - TYPE 2 DIABETES MELLITUS WITHOUT COMPLICATIONS Qualifiers: Diabetes mellitus type: other specified (including TAN) Diabetes mellitus lobsterman insulin use: unspecified lobsterman insulin use status Diabetes mellitus complication status: with other specified complication Qualified Code (s): E13.69 - Other specified diabetes mellitus with other specified complication (8) Diastolic CHF Code(s): I50.30 - UNSPECIFIED DIASTOLIC (CONGESTIVE) HEART FAILURE (9) HLD (hyperlipidemia) Assessment/Plan: on statinj Code(s): E78.5 - HYPERLIPIDEMIA, UNSPECIFIED Qualifiers: Hyperlipidemia type: other hyperlipidemia Qualified Code(s): E78.49 - Other hyperlipidemia; E78.4 - Other hyperlipidemia (10) Atrial fibrillation Assessment/Plan: Brief periods of AF with RVR. Will increase diltiazem CD to 130 mg daily (and stop amlodipine, a 2nd calcium channel quirino). Continue metoprolol ER. Continue apixaban for anticoagulation (and stop ASA: increased risk of bleed; anemia; no hx SD, PCI). Code(s): I48.91 - UNSPECIFIED ATRIAL FIBRILLATION (11) NSVT (nonsustained ventricular tachycardia) Assessment/Plan: breif, nonsustanted runs during SVT/AF incident necessitatin ICU earlier this admission. ECHO: normal LVEF. On metoprolol and diltiazem. Maintain electrolytes.; control BP. Coronary artery evaluation when stable. Code(s): I47.2 - VENTRICULAR TACHYCARDIA
[2019-10-03 09:24] LABS: HEMATOCRIT 28.6 % (35.4-49); MCH 30.5 pg (25.7-33.7); MCHC 31.5 g/dl (32.0-35.9); MEAN CELL VOLUME 96.8 fl (80-96); PLATELET COUNT 288 K/MM3 (134-434); RBC 2.95 M/mm3 (4.00-5.60); WHITE BLOOD COUNT 18.1 K/mm3 (4.0-10.0)
[2019-10-03] MEDS ORDERED: PT OWN MED DRAWER 7, Y5N ONE (09:26)
[2019-10-03] MEDS: PANTOPRAZOLE SODIUM 40 MG VIAL IVPUSH SCH (09:29)
[2019-10-03] MEDS: FUROSEMIDE 40 MG/4 ML INJECTABLE VIAL IVPUSH SCH (09:30)
[2019-10-03] MEDS: APIXABAN 5 MG TABLET PO SCH ×2 (09:30→22:17)
[2019-10-03] MEDS: LIDOCAINE 5% TOPICAL PATCH TP SCH (09:30)
[2019-10-03] MEDS: TAMSULOSIN HCL 0.4 MG CAP PO SCH (09:30)
[2019-10-03] MEDS: MULTIVITAMINS (DAILY MVI) TABLET (FP) PO SCH (09:31)
[2019-10-03] MEDS: SENNOSIDES/DOCUSATE COMBO (SENNA PLUS) TABLET (UD) PO SCH ×2 (09:31→22:17)
[2019-10-03] MEDS: DULoxetine HCL 20 MG CAPSULE.DR PO SCH (09:31)
[2019-10-03] MEDS: predniSONE 20 MG TABLET (UD) PO SCH (09:31)
[2019-10-03] MEDS: COLCHICINE 0.6 MG CAP PO SCH (09:31)
[2019-10-03] MEDS: POLYETHYLENE GLYCOL 3350 119 GM BTL PO SCH ×2 (09:32→22:18)
[2019-10-03 09:53] LABS: ALBUMIN 2.7 g/dl (3.4-5.0); BILIRUBIN,TOTAL 0.8 mg/dL (0.2-1); BLOOD UREA NITROGEN 18.5 mg/dL (7-18); CALCIUM 8.8 mg/dL (8.5-10.1); CREATININE 0.7 mg/dL (0.55-1.3); POTASSIUM 3.6 mmol/L (3.5-5.1); TOT PROT 5.3 g/dl (6.4-8.2)
--- NOTE | 2019-10-03 10:33 | PN ---
Progress Note (short form) - Note Progress Note: Resting in NAD on NC O2. Used NIPPV overnight. No acute events overnight. Intake & Output 09/30/19 10/01/19 10/02/19 10/03/19 23:59 23:59 23:59 23:59 Intake Total 520 260 730 Output Total 2 Balance 518 260 730 Last Vital Signs Temp Pulse Resp BP Pulse Ox 98.3 F 65 20 138/60 99 10/03/19 05:40 10/03/19 05:40 10/03/19 05:40 10/03/19 05:40 10/03/19 08:12 Active Medications Acetaminophen (Tylenol -) 650 mg PO Q6H PRN PRN Reason: FEVER OR PAIN LEVEL 1 - 3 Apixaban (Eliquis -) 5 mg PO BID [facility] Last Admin: 10/03/19 09:30 Dose: 5 mg Atorvastatin Calcium (Lipitor -) 40 mg PO HS [facility] Last Admin: 10/02/19 23:45 Dose: 40 mg Benzocaine/Menthol (Cepacol Lozenge -) 1 each MM Q2H PRN PRN Reason: SORE THROAT Colchicine (Colcrys) 0.6 mg PO DAILY [facility] Last Admin: 10/03/19 09:31 Dose: 0.6 mg Diltiazem HCl (Cardizem Cd -) 180 mg PO DAILY [facility] Last Admin: 10/03/19 09:31 Dose: 180 mg Duloxetine HCl (Cymbalta -) 40 mg PO DAILY [facility] Last Admin: 10/03/19 09:31 Dose: 40 mg Furosemide (Lasix Injection -) 20 mg IVPUSH DAILY [facility] Last Admin: 10/03/19 09:30 Dose: 20 mg Gabapentin (Neurontin -) 300 mg PO TID [facility] Last Admin: 10/03/19 06:39 Dose: 300 mg Insulin Aspart (Novolog Vial Sliding Scale -) 1 vial SQ ACHS [facility]; Protocol Last Admin: 10/03/19 06:37 Dose: Not Given Insulin Detemir (Levemir Vial) 10 units SQ 0700 [facility] Last Admin: 10/03/19 06:37 Dose: 10 units Lidocaine (Lidoderm Patch -) 1 patch TP DAILY [facility] Last Admin: 10/03/19 09:30 Dose: 1 patch Melatonin (Melatonin) 5 mg PO HS PRN PRN Reason: INSOMNIA Metoprolol Succinate (Toprol Xl -) 50 mg PO DAILY [facility] Last Admin: 10/03/19 09:31 Dose: 50 mg Miscellaneous (Lidoderm Patch Removal) 1 each MC DAILY@2200 [facility] Last Admin: 10/02/19 23:46 Dose: 1 each Multivitamins/Minerals/Vitamin C (Tab-A-Vit -) 1 tab PO DAILY [facility] Last Admin: 10/03/19 09:31 Dose: 1 tab Pantoprazole Sodium (Protonix Iv) 40 mg IVPUSH DAILY [facility] Last Admin: 10/03/19 09:29 Dose: 40 mg Polyethylene Glycol (Miralax (For Daily Use) -) 17 gm PO BID [facility] Last Admin: 10/03/19 09:32 Dose: 17 grams Prednisone (Deltasone -) 20 mg PO DAILY [facility] Last Admin: 10/03/19 09:31 Dose: 20 mg Senna/Docusate Sodium (Pericolace -) 1 tablet PO BID [facility] Last Admin: 10/03/19 09:31 Dose: 1 tablet Tamsulosin HCl (Flomax -) 0.4 mg PO DAILY@0830 [facility] Last Admin: 10/03/19 09:30 Dose: 0.4 mg Trazodone HCl (Desyrel -) 50 mg PO HS [facility] Last Admin: 10/02/19 23:44 Dose: 50 mg Ursodiol (Actigal -) 300 mg PO BID [facility] Last Admin: 10/03/19 09:31 Dose: 300 mg Gen: Awake and alert, NAD at rest Heart: RRR Lung: decreased breath sounds at the bases Abd: soft, nontender Ext: no edema Laboratory Results - last 24 hr 10/02/19 10/02/19 10/02/19 12:24 17:01 23:40 WBC RBC Hgb Hct MCV MCH MCHC RDW Plt Count MPV Sodium Potassium Chloride Carbon Dioxide Anion Gap BUN Creatinine Est GFR (CKD-EPI)AfAm Est GFR (CKD-EPI)NonAf POC Glucometer 100 239 187 Random Glucose Calcium Total Bilirubin AST ALT Alkaline Phosphatase Total Protein Albumin 10/03/19 10/03/19 10/03/19 06:36 08:17 08:17 WBC 18.1 H RBC 2.95 L Hgb 9.0 L Hct 28.6 L MCV 96.8 H MCH 30.5 MCHC 31.5 L RDW 20.0 H Plt Count 288 MPV 8.0 Sodium 144 Potassium 3.6 Chloride 104 Carbon Dioxide 37 H Anion Gap 3 L BUN 18.5 H Creatinine 0.7 Est GFR (CKD-EPI)AfAm 105.50 Est GFR (CKD-EPI)NonAf 91.03 POC Glucometer 113 Random Glucose 103 Calcium 8.8 Total Bilirubin 0.8 AST 7 L ALT 16 Alkaline Phosphatase 84 Total Protein 5.3 L Albumin 2.7 L A/P Acute Hypoxic and Hypercapneic Respiratory Failure Acute Pulmonary Edema Acute on Chronic Diastolic Heart Failure Atrial Fibrillation with RVR r/o Pneumonia new bilateral patchy infiltrates UTI Acute Kidney Injury COPD Paget's Disease DM Anemia - rate control per cardiology - Lasix - continue anticoagulation - BiPAP as needed to assist in work of breathing - O2 to keep SpO2 >90% - completed antibiotics - taper off prednisone - inhaled bronchodilators - DC planning Dr Salgado
--- NOTE | 2019-10-03 11:27 | PN ---
Progress Note, Physician Chief Complaint: patient seen and examiend on nasal canula complaining of groin rash used bipap at night on iv lasix for inc Bnp and cxr changes - Current Medication List Current Medications: Active Medications Acetaminophen (Tylenol -) 650 mg PO Q6H PRN PRN Reason: FEVER OR PAIN LEVEL 1 - 3 Apixaban (Eliquis -) 5 mg PO BID [facility] Last Admin: 10/03/19 09:30 Dose: 5 mg Atorvastatin Calcium (Lipitor -) 40 mg PO HS [facility] Last Admin: 10/02/19 23:45 Dose: 40 mg Benzocaine/Menthol (Cepacol Lozenge -) 1 each MM Q2H PRN PRN Reason: SORE THROAT Colchicine (Colcrys) 0.6 mg PO DAILY [facility] Last Admin: 10/03/19 09:31 Dose: 0.6 mg Diltiazem HCl (Cardizem Cd -) 180 mg PO DAILY [facility] Last Admin: 10/03/19 09:31 Dose: 180 mg Duloxetine HCl (Cymbalta -) 40 mg PO DAILY [facility] Last Admin: 10/03/19 09:31 Dose: 40 mg Furosemide (Lasix Injection -) 20 mg IVPUSH DAILY [facility] Last Admin: 10/03/19 09:30 Dose: 20 mg Gabapentin (Neurontin -) 300 mg PO TID [facility] Last Admin: 10/03/19 06:39 Dose: 300 mg Insulin Aspart (Novolog Vial Sliding Scale -) 1 vial SQ ACHS [facility]; Protocol Last Admin: 10/03/19 06:37 Dose: Not Given Insulin Detemir (Levemir Vial) 10 units SQ 0700 [facility] Last Admin: 10/03/19 06:37 Dose: 10 units Lidocaine (Lidoderm Patch -) 1 patch TP DAILY [facility] Last Admin: 10/03/19 09:30 Dose: 1 patch Melatonin (Melatonin) 5 mg PO HS PRN PRN Reason: INSOMNIA Metoprolol Succinate (Toprol Xl -) 50 mg PO DAILY [facility] Last Admin: 10/03/19 09:31 Dose: 50 mg Miscellaneous (Lidoderm Patch Removal) 1 each MC DAILY@2200 [facility] Last Admin: 10/02/19 23:46 Dose: 1 each Multivitamins/Minerals/Vitamin C (Tab-A-Vit -) 1 tab PO DAILY [facility] Last Admin: 10/03/19 09:31 Dose: 1 tab Nystatin/Triamcinolone Acetonide (Mycolog Ii Cream -) 1 applic TP BID [facility] Pantoprazole Sodium (Protonix Iv) 40 mg IVPUSH DAILY [facility] Last Admin: 10/03/19 09:29 Dose: 40 mg Polyethylene Glycol (Miralax (For Daily Use) -) 17 gm PO BID [facility] Last Admin: 10/03/19 09:32 Dose: 17 grams Prednisone (Deltasone -) 20 mg PO DAILY [facility] Last Admin: 10/03/19 09:31 Dose: 20 mg Senna/Docusate Sodium (Pericolace -) 1 tablet PO BID [facility] Last Admin: 10/03/19 09:31 Dose: 1 tablet Tamsulosin HCl (Flomax -) 0.4 mg PO DAILY@0830 [facility] Last Admin: 10/03/19 09:30 Dose: 0.4 mg Trazodone HCl (Desyrel -) 50 mg PO HS [facility] Last Admin: 10/02/19 23:44 Dose: 50 mg Ursodiol (Actigal -) 300 mg PO BID [facility] Last Admin: 10/03/19 09:31 Dose: 300 mg - Objective Vital Signs: Vital Signs Temperature 98.3 F 10/03/19 05:40 Pulse Rate 65 10/03/19 05:40 Respiratory Rate 20 10/03/19 05:40 Blood Pressure 138/60 10/03/19 05:40 O2 Sat by Pulse Oximetry (%) 99 10/03/19 08:12 Constitutional: Yes: Calm Cardiovascular: Yes: Regular Rate and Rhythm, S1, S2 Respiratory: Yes: Diminished (at bases), On Nasal O2 Gastrointestinal: Yes: Normal Bowel Sounds, Soft Edema: No Neurological: Yes: Alert, Oriented Labs: CBC, BMP 10/03/19 08:17 10/03/19 08:17 INR, PTT INR 3.09 (0.83-1.09) H 09/20/19 22:24 Problem List - Problems (1) CHF (congestive heart failure) Assessment/Plan: pn iv lasix repeat cxr today repeat BNP to see the trend Code(s): I50.9 - HEART FAILURE, UNSPECIFIED Qualifiers: Heart failure type: unspecified Heart failure chronicity: chronic Qualified Code(s): I50.9 - Heart failure, unspecified (2) Acute on chronic respiratory failure with hypoxia and hypercapnia Assessment/Plan: bipap at night nasal canula in day bronchodilators medrol change to po prednisone chest CT shows increased congestion iv lasix started will get CXR today to look at congestive changes Code(s): J96.21 - ACUTE AND CHRONIC RESPIRATORY FAILURE WITH HYPOXIA; J96.22 - ACUTE AND CHRONIC RESPIRATORY FAILURE WITH HYPERCAPNIA (3) Atrial fibrillation Assessment/Plan: po cardizem eliquis and metorpolol HR on monitor rate control cardizem increased to 180mg daily Code(s): I48.91 - UNSPECIFIED ATRIAL FIBRILLATION (4) Pneumonia Assessment/Plan: on zosyn completed 9 days- stop abx Microbiology 09/21/19 18:40 Nares - Mrsa Screen - Right MRSA Screen - Final NO MRSA ISOLATED 09/21/19 18:40 Nares - Mrsa Screen - Left MRSA Screen - Final NO MRSA ISOLATED 08/31/19 12:39 Urine - Urine Iqbal Urine Culture - Final Proteus Mirabilis Code(s): J18.9 - PNEUMONIA, UNSPECIFIED ORGANISM Qualifiers: Pneumonia type: due to unspecified organism Laterality: left Lung location: lower lobe of lung Qualified Code(s): J18.9 - Pneumonia, unspecified organism (5) Polyarthralgia Assessment/Plan: gouty arthitis improved joint fluid with crystals-urate Code(s): M25.50 - PAIN IN UNSPECIFIED JOINT (6) Acute cholecystitis Assessment/Plan: clear liquid diet will advance to soft diet actigal EROSA report-no cystic duct obstruction and element of biliary dyskinesia iv zosyn- cours completed Code(s): K81.0 - ACUTE CHOLECYSTITIS (7) Diabetes Assessment/Plan: on insulin bgm note in range Code(s): E11.9 - TYPE 2 DIABETES MELLITUS WITHOUT COMPLICATIONS Qualifiers: Diabetes mellitus type: other specified (including TAN) Diabetes mellitus detention insulin use: unspecified detention insulin use status Diabetes mellitus complication status: with other specified complication Qualified Code (s): E13.69 - Other specified diabetes mellitus with other specified complication
[2019-10-03 12:03] LABS: N-TERMINAL BNP 1715.5 pg/ml (5-450)
--- NOTE | 2019-10-03 13:35 | PN ---
Progress Note (short form) - Note Progress Note: Renal follow up for BEKA Pt seen and examined at the bedside awake and alert feels better no sob, cp, abd pain, fever or chills making urine Vital Signs Temperature 97.9 F 10/03/19 10:00 Pulse Rate 80 10/03/19 10:00 Respiratory Rate 18 10/03/19 10:00 Blood Pressure 137/88 10/03/19 10:00 O2 Sat by Pulse Oximetry (%) 100 10/03/19 09:00 Intake & Output 09/30/19 10/01/19 10/02/19 10/03/19 23:59 23:59 23:59 23:59 Intake Total 520 260 730 Output Total 2 Balance 518 260 730 NAD neck supple, no JVD RRR, no M/R Dec BS at lung bases soft, obese, NT/ND no bladder distension trace edema in LE CBC, BMP 10/03/19 08:17 10/03/19 08:17 Current Medications Acetaminophen (Tylenol -) 650 mg PO Q6H PRN PRN Reason: FEVER OR PAIN LEVEL 1 - 3 Apixaban (Eliquis -) 5 mg PO BID [facility] Last Admin: 10/03/19 09:30 Dose: 5 mg Atorvastatin Calcium (Lipitor -) 40 mg PO HS [facility] Last Admin: 10/02/19 23:45 Dose: 40 mg Benzocaine/Menthol (Cepacol Lozenge -) 1 each MM Q2H PRN PRN Reason: SORE THROAT Colchicine (Colcrys) 0.6 mg PO DAILY [facility] Last Admin: 10/03/19 09:31 Dose: 0.6 mg Diltiazem HCl (Cardizem Cd -) 180 mg PO DAILY [facility] Last Admin: 10/03/19 09:31 Dose: 180 mg Duloxetine HCl (Cymbalta -) 40 mg PO DAILY [facility] Last Admin: 10/03/19 09:31 Dose: 40 mg Furosemide (Lasix Injection -) 20 mg IVPUSH DAILY [facility] Last Admin: 10/03/19 09:30 Dose: 20 mg Gabapentin (Neurontin -) 300 mg PO TID [facility] Last Admin: 10/03/19 06:39 Dose: 300 mg Insulin Aspart (Novolog Vial Sliding Scale -) 1 vial SQ [facility]; Protocol Last Admin: 10/03/19 12:23 Dose: Not Given Insulin Detemir (Levemir Vial) 10 units SQ 0700 [facility] Last Admin: 10/03/19 06:37 Dose: 10 units Lidocaine (Lidoderm Patch -) 1 patch TP DAILY [facility] Last Admin: 10/03/19 09:30 Dose: 1 patch Melatonin (Melatonin) 5 mg PO HS PRN PRN Reason: INSOMNIA Metoprolol Succinate (Toprol Xl -) 50 mg PO DAILY [facility] Last Admin: 10/03/19 09:31 Dose: 50 mg Miscellaneous (Lidoderm Patch Removal) 1 each MC DAILY@2200 [facility] Last Admin: 10/02/19 23:46 Dose: 1 each Multivitamins/Minerals/Vitamin C (Tab-A-Vit -) 1 tab PO DAILY [facility] Last Admin: 10/03/19 09:31 Dose: 1 tab Nystatin/Triamcinolone Acetonide (Mycolog Ii Cream -) 1 applic TP BID [facility] Pantoprazole Sodium (Protonix Iv) 40 mg IVPUSH DAILY [facility] Last Admin: 10/03/19 09:29 Dose: 40 mg Polyethylene Glycol (Miralax (For Daily Use) -) 17 gm PO BID [facility] Last Admin: 10/03/19 09:32 Dose: 17 grams Prednisone (Deltasone -) 20 mg PO DAILY [facility] Last Admin: 10/03/19 09:31 Dose: 20 mg Senna/Docusate Sodium (Pericolace -) 1 tablet PO BID [facility] Last Admin: 10/03/19 09:31 Dose: 1 tablet Tamsulosin HCl (Flomax -) 0.4 mg PO DAILY@0830 [facility] Last Admin: 10/03/19 09:30 Dose: 0.4 mg Trazodone HCl (Desyrel -) 50 mg PO HS [facility] Last Admin: 10/02/19 23:44 Dose: 50 mg Ursodiol (Actigal -) 300 mg PO BID [facility] Last Admin: 10/03/19 09:31 Dose: 300 mg 78 year old gentleman with history of CHF with reduced LVEF, Afib, Anemia and DM with recent admission for gross hematuria and BEKA now presents with diffuse body pain and joint pain with BEKA. 1. Acute kidney injury now resolved 2. Joint pains 3. CHF with reduced LVEF 4. Leukocytosis 5. Anemia CXR still shows bilateral congestion, clinically improved Renal function stable titrate lasix as needed to achieve euvolemia Thank you Saul Diaz DO
[2019-10-03] MEDS: NYSTATIN/TRIAMCINOLONE TOPICAL CREAM 15 GM TUBE TP SCH ×2 (14:57→22:18)
[2019-10-03] MEDS ORDERED: INSULIN (NOVOLOG) ASPART 100 UNITS/ML 10ML VIAL ONE (21:47)
[2019-10-03] MEDS: ATORVASTATIN CA 40 MG TABLET (FP) PO SCH (22:17)
[2019-10-03] MEDS: traZODone HCL 50 MG TABLET (FP) PO SCH (22:17)
[2019-10-03] MEDS: LIDOCAINE PATCH REMOVAL MC SCH (22:18)
[2019-10-04] MEDS: INSULIN (LEVEMIR) 100 UNITS/ML UNITS SQ SCH (06:30)
[2019-10-04] MEDS: GABAPENTIN 300 MG CAPSULE (FP) PO SCH ×3 (06:31→21:38)
[2019-10-04] MEDS: INSULIN SLIDING SCALE (NOVOLOG) 1 VIAL SQ SCH ×4 (06:46→21:45)
[2019-10-04] MEDS: TAMSULOSIN HCL 0.4 MG CAP PO SCH (08:37)
[2019-10-04] MEDS ORDERED: PT OWN MED DRAWER 7, Y5N ONE ×2 (10:15→21:20)
[2019-10-04] MEDS: FUROSEMIDE 40 MG/4 ML INJECTABLE VIAL IVPUSH SCH (10:17)
[2019-10-04] MEDS: APIXABAN 5 MG TABLET PO SCH ×2 (10:18→21:38)
[2019-10-04] MEDS: MULTIVITAMINS (DAILY MVI) TABLET (FP) PO SCH (10:18)
[2019-10-04] MEDS: SENNOSIDES/DOCUSATE COMBO (SENNA PLUS) TABLET (UD) PO SCH ×3 (10:18→21:37)
[2019-10-04] MEDS: predniSONE 20 MG TABLET (UD) PO SCH (10:18)
[2019-10-04] MEDS: PANTOPRAZOLE SODIUM 40 MG VIAL IVPUSH SCH (10:18)
[2019-10-04] MEDS: URSODIOL 300 MG CAPSULE PO SCH ×2 (10:19→21:38)
[2019-10-04] MEDS: COLCHICINE 0.6 MG CAP PO SCH (10:19)
[2019-10-04] MEDS: DULoxetine HCL 20 MG CAPSULE.DR PO SCH (10:19)
[2019-10-04] MEDS: LIDOCAINE 5% TOPICAL PATCH TP SCH (10:19)
[2019-10-04] MEDS: POLYETHYLENE GLYCOL 3350 119 GM BTL PO SCH ×2 (10:20→21:38)
--- NOTE | 2019-10-04 11:15 | PN ---
Progress Note (short form) - Note Progress Note: Resting in NAD on NC O2. Used NIPPV overnight. No acute events overnight. Intake & Output 10/01/19 10/02/19 10/03/19 10/04/19 23:59 23:59 23:59 23:59 Intake Total 260 730 400 520 Balance 260 730 400 520 Last Vital Signs Temp Pulse Resp BP Pulse Ox 97.9 F 82 20 110/61 100 10/04/19 09:31 10/04/19 09:31 10/04/19 09:31 10/04/19 09:31 10/04/19 07:30 Active Medications Acetaminophen (Tylenol -) 650 mg PO Q6H PRN PRN Reason: FEVER OR PAIN LEVEL 1 - 3 Apixaban (Eliquis -) 5 mg PO BID [facility] Last Admin: 10/04/19 10:18 Dose: 5 mg Atorvastatin Calcium (Lipitor -) 40 mg PO HS [facility] Last Admin: 10/03/19 22:17 Dose: 40 mg Benzocaine/Menthol (Cepacol Lozenge -) 1 each MM Q2H PRN PRN Reason: SORE THROAT Colchicine (Colcrys) 0.6 mg PO DAILY [facility] Last Admin: 10/04/19 10:19 Dose: 0.6 mg Diltiazem HCl (Cardizem Cd -) 180 mg PO DAILY [facility] Last Admin: 10/04/19 10:19 Dose: 180 mg Duloxetine HCl (Cymbalta -) 40 mg PO DAILY [facility] Last Admin: 10/04/19 10:19 Dose: 40 mg Furosemide (Lasix Injection -) 20 mg IVPUSH DAILY [facility] Last Admin: 10/04/19 10:17 Dose: 20 mg Gabapentin (Neurontin -) 300 mg PO TID [facility] Last Admin: 10/04/19 06:31 Dose: 300 mg Insulin Aspart (Novolog Vial Sliding Scale -) 1 vial SQ ACHS [facility]; Protocol Last Admin: 10/04/19 06:46 Dose: Not Given Insulin Detemir (Levemir Vial) 10 units SQ 0700 [facility] Last Admin: 10/04/19 06:30 Dose: 10 units Lidocaine (Lidoderm Patch -) 1 patch TP DAILY [facility] Last Admin: 10/04/19 10:19 Dose: 1 patch Melatonin (Melatonin) 5 mg PO HS PRN PRN Reason: INSOMNIA Metoprolol Succinate (Toprol Xl -) 50 mg PO DAILY [facility] Last Admin: 10/04/19 10:18 Dose: 50 mg Miscellaneous (Lidoderm Patch Removal) 1 each MC DAILY@2200 [facility] Last Admin: 10/03/19 22:18 Dose: 1 each Multivitamins/Minerals/Vitamin C (Tab-A-Vit -) 1 tab PO DAILY [facility] Last Admin: 10/04/19 10:18 Dose: 1 tab Nystatin/Triamcinolone Acetonide (Mycolog Ii Cream -) 1 applic TP BID [facility] Last Admin: 10/03/19 22:18 Dose: 1 applic Pantoprazole Sodium (Protonix Iv) 40 mg IVPUSH DAILY [facility] Last Admin: 10/04/19 10:18 Dose: 40 mg Polyethylene Glycol (Miralax (For Daily Use) -) 17 gm PO BID [facility] Last Admin: 10/04/19 10:20 Dose: Not Given Prednisone (Deltasone -) 20 mg PO DAILY [facility] Last Admin: 10/04/19 10:18 Dose: 20 mg Senna/Docusate Sodium (Pericolace -) 1 tablet PO BID [facility] Last Admin: 10/04/19 10:33 Dose: Not Given Tamsulosin HCl (Flomax -) 0.4 mg PO DAILY@0830 [facility] Last Admin: 10/04/19 08:37 Dose: 0.4 mg Trazodone HCl (Desyrel -) 50 mg PO HS [facility] Last Admin: 10/03/19 22:17 Dose: 50 mg Ursodiol (Actigal -) 300 mg PO BID [facility] Last Admin: 10/04/19 10:19 Dose: 300 mg Gen: Awake and alert, NAD at rest Heart: RRR Lung: decreased breath sounds at the bases Abd: soft, nontender Ext: no edema Laboratory Results - last 24 hr 10/03/19 10/03/19 10/03/19 08:17 11:24 16:54 Sodium 144 Potassium 3.6 Chloride 104 Carbon Dioxide 37 H Anion Gap 3 L BUN 18.5 H Creatinine 0.7 Est GFR (CKD-EPI)AfAm 105.50 Est GFR (CKD-EPI)NonAf 91.03 POC Glucometer 147 246 Random Glucose 103 Calcium 8.8 Total Bilirubin 0.8 AST 7 L ALT 16 Alkaline Phosphatase 84 B-Natriuretic Peptide 1715.5 H Total Protein 5.3 L Albumin 2.7 L 10/03/19 10/04/19 22:20 06:43 Sodium Potassium Chloride Carbon Dioxide Anion Gap BUN Creatinine Est GFR (CKD-EPI)AfAm Est GFR (CKD-EPI)NonAf POC Glucometer 228 98 Random Glucose Calcium Total Bilirubin AST ALT Alkaline Phosphatase B-Natriuretic Peptide Total Protein Albumin A/P Acute Hypoxic and Hypercapneic Respiratory Failure Acute Pulmonary Edema Acute on Chronic Diastolic Heart Failure Atrial Fibrillation with RVR r/o Pneumonia new bilateral patchy infiltrates UTI Acute Kidney Injury COPD Paget's Disease DM Anemia - rate control per cardiology - Lasix - continue anticoagulation - BiPAP as needed to assist in work of breathing - O2 to keep SpO2 >90% - completed antibiotics - taper off prednisone - inhaled bronchodilators - DC planning Dr Salgado
--- NOTE | 2019-10-04 11:35 | DS ---
Physical Examination Vital Signs: Vital Signs Temperature 97.9 F 10/04/19 09:31 Pulse Rate 82 10/04/19 09:31 Respiratory Rate 20 10/04/19 09:31 Blood Pressure 110/61 10/04/19 09:31 O2 Sat by Pulse Oximetry (%) 100 10/04/19 07:30 Findings/Remarks: This is a 78 y/o man from [facility] with a PMHx of COPD (3L), HTN, HLD, CAD (s/p Stent), DM, CHF (pEF), Afib (on Eliquis), Anemia, Prostate Ca. Recent admission 08/31-09/17 for Hematuria, Urinary Retention, treated for LLL Pneumonia. Who presents to the ED for SOB. Pt was last seen at [facility] for hematuria, and was found to also have LLL pneumonia and bone scan concerning for Pagett's disease. PT complains currently of "poor breathing and pain all over". Pt also endorses "feeling hot". He denies any productive cough, hemoptysis, leg swelling, chest pain, nausea/vomiting, or diarrhea. Constitutional: Yes: Well Nourished, No Distress, Calm Cardiovascular: Yes: Regular Rate and Rhythm Respiratory: Yes: Regular Gastrointestinal: Yes: Normal Bowel Sounds, Soft, Abdomen, Obese Renal/: Yes: WNL Musculoskeletal: Yes: Muscle Weakness Extremities: Yes: WNL Edema: No Peripheral Pulses WNL: Yes Neurological: Yes: Alert, Oriented Psychiatric: Yes: Alert, Oriented Labs: CBC, BMP 10/03/19 08:17 10/03/19 08:17 Discharge Summary Problems reviewed: Yes Reason For Visit: PAGET'S DISEASE OF BONE, LEUKOCYTOSIS, PNEUMONIA Current Active Problems Acute cholecystitis (Acute) Acute on chronic respiratory failure with hypoxia and hypercapnia (Acute) Dehydration (Acute) Leukocytosis (Acute) NSVT (nonsustained ventricular tachycardia) (Acute) Paget's bone disease (Acute) Pneumonia (Acute) Polyarthralgia (Acute) Undifferentiated inflammatory arthritis (Acute) Laboratory Last Values WBC 18.1 K/mm3 (4.0-10.0) H 10/03/19 08:17 Corrected WBC (auto) Cancelled 09/26/19 06:39 RBC 2.95 M/mm3 (4.00-5.60) L 10/03/19 08:17 Hgb 9.0 GM/dL (11.7-16.9) L 10/03/19 08:17 Hct 28.6 % (35.4-49) L 10/03/19 08:17 MCV 96.8 fl (80-96) H 10/03/19 08:17 MCH 30.5 pg (25.7-33.7) 10/03/19 08:17 MCHC 31.5 g/dl (32.0-35.9) L 10/03/19 08:17 RDW 20.0 % (11.9-15.9) H 10/03/19 08:17 Plt Count 288 K/MM3 (134-434) 10/03/19 08:17 MPV 8.0 fl (7.5-11.1) 10/03/19 08:17 Absolute Neuts (auto) 20.2 K/mm3 (1.5-8.0) H 09/30/19 14:10 Total Counted 98 09/24/19 06:35 Neutrophils % 95.3 % (42.8-82.8) H 09/30/19 14:10 Neutrophils % (Manual) 95.9 % (42.8-82.8) H 09/30/19 14:10 Band Neutrophils % 0.0 % 09/30/19 14:10 Lymphocytes % 2.9 % (8-40) L 09/30/19 14:10 Lymphocytes % (Manual) 1.0 % (8-40) L D 09/30/19 14:10 Monocytes % 1.0 % (3.8-10.2) L 09/30/19 14:10 Monocytes % (Manual) 3 % (3.8-10.2) L 09/30/19 14:10 Eosinophils % 0.5 % (0-4.5) D 09/30/19 14:10 Eosinophils % (Manual) 0.0 % (0-4.5) 09/30/19 14:10 Basophils % 0.3 % (0-2.0) 09/30/19 14:10 Basophils % (Manual) 0.0 % (0-2.0) 09/30/19 14:10 Myelocytes % (Man) 0 % (0-2) 09/30/19 14:10 Promyelocytes % (Man) 0 % (0-2) 09/30/19 14:10 Blast Cells % (Manual) 0 % (0-0) 09/30/19 14:10 Nucleated RBC % 0 % (0-0) 09/30/19 14:10 Metamyelocytes 0 % (0-2) 09/30/19 14:10 Smudge Cells 3 09/24/19 06:35 Hypochromia 0 09/30/19 14:10 Platelet Estimate Normal 09/30/19 14:10 Platelet Comment Present 09/22/19 07:50 Polychromasia 1+ 09/30/19 14:10 Poikilocytosis 0 09/30/19 14:10 Basophilic Stippling 1+ 09/30/19 14:10 Anisocytosis 1+ 09/30/19 14:10 Microcytosis 1+ 09/22/19 22:00 Macrocytosis 1+ 09/27/19 06:30 Fragmented RBCs 1+ 09/22/19 07:50 Schistocytes 1+ 09/21/19 07:58 ESR 74 mm/hr (0-20) H 09/26/19 09:45 Retic Count 2.26 % (0.5-1.5) H D 09/22/19 07:50 PT with INR 36.90 SEC (9.7-13.0) H 09/20/19 22:24 INR 3.09 (0.83-1.09) H 09/20/19 22:24 D-Dimer 2322 ng/ml (0-500) H 09/22/19 11:25 Anticoagulation Therapy No Result Required. 09/24/19 10:25 Puncture Site Right radial 09/24/19 10:25 ABG pH 7.39 (7.35-7.45) 09/24/19 10:25 ABG pCO2 at Pt Temp 48.4 mmHg (35-45) H 09/24/19 10:25 ABG pO2 at Pt Temp 91.0 mmHg (80-100) 09/24/19 10:25 ABG HCO3 28.8 mmol/L (22-27) H 09/24/19 10:25 ABG O2 Sat (Measured) 95.9 % (95-98) 09/24/19 10:25 ABG O2 Content 11.6 % vol 09/24/19 10:25 ABG Base Excess 3.9 meq/l (-2-2) H 09/24/19 10:25 Jose Test Positive 09/24/19 10:25 VBG pH 7.33 (7.31-7.41) 09/20/19 22:24 POC VBG pCO2 57.6 mmHg (38-52) H 09/20/19 22:24 POC VBG pO2 64.5 mmHg (28-48) H 09/20/19 22:24 VBG HCO3 29.5 mmol/L (23-29) H 09/20/19 22:24 VBG O2 Sat (Amy) 88.0 % (70-80) H 09/20/19 22:24 VBG Base Excess 3.8 meq/l (-2-2) H 09/20/19 22:24 O2 Delivery Device Bipap 09/24/19 10:25 Oxygen Flow Rate 50 09/24/19 10:25 Vent Mode No Result Required. 09/24/19 10:25 Vent Rate 12 09/24/19 10:25 Mechanical Rate No Result Required. 09/24/19 10:25 Pressure Support Vent 14/4 09/24/19 10:25 Sodium 144 mmol/L (136-145) 10/03/19 08:17 Potassium 3.6 mmol/L (3.5-5.1) 10/03/19 08:17 Chloride 104 mmol/L (98-107) 10/03/19 08:17 Carbon Dioxide 37 mmol/L (21-32) H 10/03/19 08:17 Anion Gap 3 MMOL/L (8-16) L 10/03/19 08:17 BUN 18.5 mg/dL (7-18) H 10/03/19 08:17 Creatinine 0.7 mg/dL (0.55-1.3) 10/03/19 08:17 Est GFR (CKD-EPI)AfAm 105.50 10/03/19 08:17 Est GFR (CKD-EPI)NonAf 91.03 10/03/19 08:17 POC Glucometer 98 UNITS (80-120) 10/04/19 06:43 Random Glucose 103 mg/dL (74-106) 10/03/19 08:17 Lactic Acid 1.4 mmol/L (0.4-2.0) 09/21/19 01:40 Uric Acid 7.1 mg/dL (2.6-7.2) 09/21/19 07:58 Calcium 8.8 mg/dL (8.5-10.1) 10/03/19 08:17 Phosphorus 2.8 mg/dL (2.5-4.9) 10/01/19 06:00 Magnesium 1.9 mg/dL (1.8-2.4) 10/01/19 06:00 Iron 49 ug/dL (50-175) L 09/22/19 07:50 TIBC 101 ug/dL (250-450) L 09/22/19 07:50 Iron Saturation 48 % (17.5-39) H 09/22/19 07:50 Unsaturated IBC 52 ug/dL (200-275) L 09/22/19 07:50 Ferritin 1938.8 ng/ml (8-388) H 09/25/19 05:48 Total Bilirubin 0.8 mg/dL (0.2-1) 10/03/19 08:17 AST 7 U/L (15-37) L 10/03/19 08:17 ALT 16 U/L (13-61) 10/03/19 08:17 Alkaline Phosphatase 84 U/L (45-117) 10/03/19 08:17 LD Total 140 IU/L (121-224) 09/25/19 05:48 Creatine Kinase 11 U/L (26-308) L 09/25/19 05:48 Troponin I 0.03 ng/ml (0.00-0.05) 09/22/19 09:34 C-Reactive Protein 4.7 MG/DL (0.00-0.3) H 09/26/19 06:39 B-Natriuretic Peptide 1715.5 pg/ml (5-450) H 10/03/19 08:17 Total Protein 5.3 g/dl (6.4-8.2) L 10/03/19 08:17 Albumin 2.7 g/dl (3.4-5.0) L 10/03/19 08:17 LDL 1 Fraction 26.0 IU/L (17-32) 09/25/19 05:48 LDL 2 Fraction 39.0 IU/L (25-40) 09/25/19 05:48 LDL 3 Fraction 19.0 IU/L (17-27) 09/25/19 05:48 LDL 4 Fraction 6.0 IU/L (5-13) 09/25/19 05:48 LDL 5 Fraction 10.0 IU/L (4-20) 09/25/19 05:48 Aldolase 4.6 U/L (3.3-10.3) 09/25/19 05:48 Urine Color Red 09/21/19 00:28 Urine Appearance Cloudy 09/21/19 00:28 Urine pH 5.0 (5.0-8.0) D 09/21/19 00:28 Ur Specific [place] 1.015 (1.010-1.035) 09/21/19 00:28 Urine Protein 3+ (NEGATIVE) H 09/21/19 00:28 Urine Glucose (UA) Trace (NEGATIVE) 09/21/19: Urine Ketones 1+ (NEGATIVE) H 09/21/19 00:28 Urine Blood 3+ (NEGATIVE) H 09/21/19 00:28 Urine Nitrite Positive (NEGATIVE) 09/21/19 00: Urine Bilirubin 3+ (NEGATIVE) H 09/21/19 00:28 Urine Urobilinogen 4.0 e.u/dl mg/dL (0.2-1.0) 09/21/19 00:28 Ur Leukocyte Esterase 3+ (NEGATIVE) H 09/21/19 00:28 Urine WBC (Auto) 67 /hpf (0-5) 09/21/19 00:28 Urine RBC (Auto) 2310 /hpf (0-4) 09/21/19 00:28 Urine Casts (Auto) 9 /lpf (0-8) 09/21/19 00:28 U Epithel Cells (Auto) Few /HPF (0-5/HPF) 09/21/19 00:28 Urine Bacteria (Auto) 360 /hpf (NEGATIVE) 09/21/19 00:28 Urine Eosinophils None seen % (.) 09/22/19 19:45 Ur Random Creatinine 100.0 mg/dL (30-150) 09/22/19 19:45 U Random Total Protein 174.7 mg/dL (0-11.9) H 09/22/19 19:45 Ur Random Sodium 9 MMOL/L (40-220) L 09/22/19 19:45 Ur Random Urea Nitrogn 747 mg/dL (350-1000) 09/22/19 19:45 Synovial Source Sinovial 09/21/19 18:00 Synovial WBC 61.228 /mm3 09/21/19 18:00 Synovial RBC 93541 /mm3 09/21/19 18:00 Synovial Neutrophils 84 % 09/21/19 18:00 Synovial Lymphocytes 5 % 09/21/19 18:00 Synovial Monocytes 8 % 09/21/19 18:00 Synovial Histocytes No Result Required. 09/21/19 18:00 Synovial Plasma Cells No Result Required. 09/21/19 18:00 Synovial LE Cells No Result Required. 09/21/19 18:00 Synovial Macrophages 3 % 09/21/19 18:00 Synovial Other Cells No Result Required. 09/21/19 18:00 Synovial Diff Comment No Result Required. 09/21/19 18:00 Synovial Crystals Positive 09/21/19 18:00 Random Vancomycin 16.9 ug/ml (18-26) L 09/24/19 06:35 Lyme Screen IgG & IgM <0.91 ISR (0.00-0.90) 09/22/19 11:25 Lyme IgM 23 kDa Band No Result Required. 09/22/19 11:25 Lyme IgM 39 kDa Band No Result Required. 09/22/19 11:25 Lyme IgM 41 kDa Band No Result Required. 09/22/19 11:25 Blood Type O POSITIVE 09/20/19 22:24 Antibody Screen Negative 09/20/19 22:24 Crossmatch See Detail 09/20/19 22:24 Microbiology 09/21/19 00:00 Blood - Peripheral Venous Blood Culture - Final NO GROWTH AFTER 5 DAYS INCUBATION 09/21/19 00:00 Blood - Peripheral Venous Blood Culture - Final NO GROWTH AFTER 5 DAYS INCUBATION 09/21/19 18:00 Synovial Fluid - Knee Gram Stain - Final 09/21/19 18:00 Synovial Fluid - Knee Body Fluid Culture - Final NO GROWTH OF AEROBIC ORGANISMS AFTER 48 HOURS INCUBATION 09/21/19 18:00 Synovial Fluid - Knee Anaerobic Culture - Final NO ANAEROBES WERE ISOLATED 09/22/19 19:45 Urine For Antigen Detection Legionella Antigen - Final 09/22/19 19:45 Urine For Antigen Detection Streptococcus pneumoniae Antigen (M - Final 09/21/19 18:40 Nares - Mrsa Screen - Right MRSA Screen - Final NO MRSA ISOLATED 09/21/19 18:40 Nares - Mrsa Screen - Left MRSA Screen - Final NO MRSA ISOLATED 09/21/19 00:28 Urine - Urine - Catheterized Urine Culture - Final NO GROWTH OBTAINED Vital Signs Temp 97.9 F 10/04/19 09:31 Pulse 82 10/04/19 09:31 Resp 20 10/04/19 09:31 BP 110/61 10/04/19 09:31 Pulse Ox 100 10/04/19 07:30 Intake & Output 10/03/19 10/03/19 10/04/19 11:59 23:59 11:59 Intake Total 400 520 Balance 400 520 Intake: Oral 400 520 Other: Voiding Method Incontinent Incontinent External Catheter # Unmeasured Voids Void 3 2 Bowel Movement No No No # Bowel Movements 1 Condition: Stable - Instructions Referrals: Jaz Mendieta MD [Primary Care Provider] - Saul Diaz MD [Staff Physician] - Disposition: CARE HOME FACILITY - Home Medications Comprehensive Discharge Medication List: Ambulatory Orders Alendronate Na [Fosamax (Weekly)] 70 mg PO WEEKLY 01/29/17 Atorvastatin Calcium 40 mg PO HS 01/29/17 Aspirin Coated [Ecotrin -] 81 mg PO DAILY tablet.ec 11/05/17 Amlodipine Besylate 5 mg PO DAILY 05/04/18 Acetaminophen [Tylenol .Regular Strength -] 650 mg PO Q6H PRN tablet 03/07/19 Apixaban [Eliquis -] 5 mg PO BID tablet 03/07/19 Insulin Sliding Scale [Novolog Vial Sliding Scale -] 1 vial SQ ACHS units 03/07 Docusate Sodium [Colace] 300 mg PO HS 06/23/19 Gabapentin 300 mg PO TID 06/23/19 Insulin Glargine,Hum.rec.anlog [Basaglar Kwikpen U-100] 20 unit SQ DAILY Polyethylene Glycol 3350 [Miralax 119 gm Btl -] 17 gm PO DAILY 06/23/19 Tamsulosin HCl [Flomax] 0.4 mg PO DAILY 06/23/19 Zinc Oxide 20% Topical Oint 1 appful DAILY PRN 06/23/19 Lidocaine 5% Patch [Lidoderm -] 1 patch TP DAILY patch 07/01/19 Melatonin 3 mg PO HS 08/31/19 Metoprolol Tartrate 25 mg PO BID 08/31/19 Multivitamin [Multiple Vitamins] 1 each PO DAILY 08/31/19 Albuterol 2.5/Ipratropium 0.5 [Duoneb -] 1 amp NEB RQID amp 09/17/19 Duloxetine HCl [Cymbalta -] 20 mg PO DAILY capsule. 09/17/19 Ferrous Sulfate [Feosol] 325 mg PO BID ud 09/17/19 Lisinopril [Prinivil] 2.5 mg PO DAILY tablet 09/17/19 Magnesium Hydrox 2400MG/30Ml [Milk of Magnesia -] 30 ml PO DAILY PRN cup Sennosides [Senna -] 2 tab PO HS PRN tablet 09/17/19 Sitagliptin Phosphate [Januvia -] 25 mg PO DAILY@0700 tab 09/17/19 Mag Hydrox/Al Hydrox/Simeth [Mylanta *Suspension*] 30 ml PO Q6H 09/21/19 Oxycodone HCl 10 mg PO Q8H PRN 09/21/19 Phenazopyridine HCl [Pyridium] 200 mg PO TID 09/21/19 Piperacillin/Tazob 3.375 gm [Zosyn 3.375GM Ivpb (Pre-Docked)] 3.375 gm IVPB Q8H 09/21/19 Potassium Chloride [K-Dur -] 40 meq PO DAILY 09/21/19 Silver Sulfadiazine 1% Top Cr [Silvadene -] 1 applic TP DAILY 09/21/19 predniSONE [Deltasone] 20 mg PO DAILY 09/21/19 Colchicine [Colcrys] 0.6 mg PO DAILY cap 10/04/19 Diltiazem Cd [Cardizem Cd -] 180 mg PO DAILY cap.cd.24h 10/04/19 Furosemide [Lasix -] 20 mg PO DAILY tablet 10/04/19 Insulin (Levemir) [Levemir Vial] 10 units SQ 0700 units 10/04/19 Insulin Sliding Scale [Novolog Vial Sliding Scale -] 1 vial SQ ACHS units 10/04 Lidocaine Patch Removal [Lidoderm Patch Removal] 1 each MC DAILY@2200 each Melatonin 5 mg PO HS PRN tab 10/04/19 Metoprolol Succinate [Toprol XL -] 50 mg PO DAILY tab.sr.24h 10/04/19 Nystatin/Triamcinolone Top Cr [Mycolog II -] 1 applic TP BID applic 10/04/19 Pantoprazole Sodium [Protonix -] 40 mg PO DAILY #30 tablet.ec 10/04/19 Polyethylene Glycol 3350 [Miralax 119 gm Btl -] 17 gm PO BID bottle 10/04/19 Sennosides/Docusate Sodium [Pericolace -] 1 tablet PO BID tablet 10/04/19 Ursodiol [Actigal -] 300 mg PO BID capsule 10/04/19 predniSONE [Deltasone -] 20 mg PO DAILY tablet 10/04/19 traZODone HCL [Desyrel -] 50 mg PO HS tablet 10/04/19
--- NOTE | 2019-10-04 11:39 | PN ---
Progress Note, Physician Chief Complaint: Cardiology - Current Medication List Current Medications: Active Medications Acetaminophen (Tylenol -) 650 mg PO Q6H PRN PRN Reason: FEVER OR PAIN LEVEL 1 - 3 Apixaban (Eliquis -) 5 mg PO BID [facility] Last Admin: 10/04/19 10:18 Dose: 5 mg Atorvastatin Calcium (Lipitor -) 40 mg PO HS [facility] Last Admin: 10/03/19 22:17 Dose: 40 mg Benzocaine/Menthol (Cepacol Lozenge -) 1 each MM Q2H PRN PRN Reason: SORE THROAT Colchicine (Colcrys) 0.6 mg PO DAILY [facility] Last Admin: 10/04/19 10:19 Dose: 0.6 mg Diltiazem HCl (Cardizem Cd -) 180 mg PO DAILY [facility] Last Admin: 10/04/19 10:19 Dose: 180 mg Duloxetine HCl (Cymbalta -) 40 mg PO DAILY [facility] Last Admin: 10/04/19 10:19 Dose: 40 mg Furosemide (Lasix -) 20 mg PO DAILY [facility] Gabapentin (Neurontin -) 300 mg PO TID [facility] Last Admin: 10/04/19 06:31 Dose: 300 mg Insulin Aspart (Novolog Vial Sliding Scale -) 1 vial SQ ACHS [facility]; Protocol Last Admin: 10/04/19 06:46 Dose: Not Given Insulin Detemir (Levemir Vial) 10 units SQ 0700 [facility] Last Admin: 10/04/19 06:30 Dose: 10 units Lidocaine (Lidoderm Patch -) 1 patch TP DAILY [facility] Last Admin: 10/04/19 10:19 Dose: 1 patch Melatonin (Melatonin) 5 mg PO HS PRN PRN Reason: INSOMNIA Metoprolol Succinate (Toprol Xl -) 50 mg PO DAILY [facility] Last Admin: 10/04/19 10:18 Dose: 50 mg Miscellaneous (Lidoderm Patch Removal) 1 each MC DAILY@2200 [facility] Last Admin: 10/03/19 22:18 Dose: 1 each Multivitamins/Minerals/Vitamin C (Tab-A-Vit -) 1 tab PO DAILY [facility] Last Admin: 10/04/19 10:18 Dose: 1 tab Nystatin/Triamcinolone Acetonide (Mycolog Ii Cream -) 1 applic TP BID [facility] Last Admin: 10/03/19 22:18 Dose: 1 applic Pantoprazole Sodium (Protonix Iv) 40 mg IVPUSH DAILY [facility] Last Admin: 10/04/19 10:18 Dose: 40 mg Polyethylene Glycol (Miralax (For Daily Use) -) 17 gm PO BID [facility] Last Admin: 10/04/19 10:20 Dose: Not Given Prednisone (Deltasone -) 20 mg PO DAILY [facility] Last Admin: 10/04/19 10:18 Dose: 20 mg Senna/Docusate Sodium (Pericolace -) 1 tablet PO BID [facility] Last Admin: 10/04/19 10:33 Dose: Not Given Tamsulosin HCl (Flomax -) 0.4 mg PO DAILY@0830 [facility] Last Admin: 10/04/19 08:37 Dose: 0.4 mg Trazodone HCl (Desyrel -) 50 mg PO HS [facility] Last Admin: 10/03/19 22:17 Dose: 50 mg Ursodiol (Actigal -) 300 mg PO BID [facility] Last Admin: 10/04/19 10:19 Dose: 300 mg - Objective Vital Signs: Vital Signs Temperature 97.9 F 10/04/19 09:31 Pulse Rate 82 10/04/19 09:31 Respiratory Rate 20 10/04/19 09:31 Blood Pressure 110/61 10/04/19 09:31 O2 Sat by Pulse Oximetry (%) 100 10/04/19 07:30 Eyes: Yes: WNL, Conjunctiva Clear, EOM Intact HENT: Yes: WNL, Atraumatic, Normocephalic Neck: Yes: WNL, Supple, Trachea Midline Cardiovascular: Yes: WNL, Regular Rate and Rhythm Respiratory: Yes: WNL, Regular, CTA Bilaterally Gastrointestinal: Yes: WNL, Normal Bowel Sounds Genitourinary: Yes: WNL Musculoskeletal: Yes: WNL Extremities: Yes: WNL Edema: No Integumentary: Yes: WNL Neurological: Yes: WNL, Alert, Oriented ...Motor Strength: WNL Psychiatric: Yes: WNL Labs: CBC, BMP 10/03/19 08:17 10/03/19 08:17 INR, PTT INR 3.09 (0.83-1.09) H 09/20/19 22:24 Assessment/Plan - Problems r/o chf h/o high BNP sob will rechec bnp start lasix IV 20 mg monitor bnp Code(s): E86.0 - DEHYDRATION (2) Acute on chronic respiratory failure with hypoxia and hypercapnia Assessment/Plan: on Bipap nightly. Encourage physical and pulmonary rehabilitation. Code(s): J96.21 - ACUTE AND CHRONIC RESPIRATORY FAILURE WITH HYPOXIA; J96.22 - ACUTE AND CHRONIC RESPIRATORY FAILURE WITH HYPERCAPNIA (3) Leukocytosis Code(s): D72.829 - ELEVATED WHITE BLOOD CELL COUNT, UNSPECIFIED Qualifiers: Leukocytosis type: unspecified Qualified Code(s): D72.829 - Elevated white blood cell count, unspecified (4) Paget's bone disease Code(s): M88.9 - OSTEITIS DEFORMANS OF UNSPECIFIED BONE (5) Pneumonia Assessment/Plan: on antibitotics per ID. Code(s): J18.9 - PNEUMONIA, UNSPECIFIED ORGANISM Qualifiers: Pneumonia type: due to unspecified organism Laterality: left Lung location: lower lobe of lung Qualified Code(s): J18.9 - Pneumonia, unspecified organism (6) Depression Code(s): F32.9 - MAJOR DEPRESSIVE DISORDER, SINGLE EPISODE, UNSPECIFIED (7) Diabetes Code(s): E11.9 - TYPE 2 DIABETES MELLITUS WITHOUT COMPLICATIONS Qualifiers: Diabetes mellitus type: other specified (including TAN) Diabetes mellitus buttermaker continuous churn insulin use: unspecified fdc insulin use status Diabetes mellitus complication status: with other specified complication Qualified Code (s): E13.69 - Other specified diabetes mellitus with other specified complication (8) Diastolic CHF Code(s): I50.30 - UNSPECIFIED DIASTOLIC (CONGESTIVE) HEART FAILURE (9) HLD (hyperlipidemia) Assessment/Plan: on statinj Code(s): E78.5 - HYPERLIPIDEMIA, UNSPECIFIED Qualifiers: Hyperlipidemia type: other hyperlipidemia Qualified Code(s): E78.49 - Other hyperlipidemia; E78.4 - Other hyperlipidemia (10) Atrial fibrillation Assessment/Plan: Brief periods of AF with RVR. Will increase diltiazem CD to 130 mg daily (and stop amlodipine, a 2nd calcium channel quirino). Continue metoprolol ER. Continue apixaban for anticoagulation (and stop ASA: increased risk of bleed; anemia; no hx VA, PCI). Code(s): I48.91 - UNSPECIFIED ATRIAL FIBRILLATION (11) NSVT (nonsustained ventricular tachycardia) Assessment/Plan: breif, nonsustanted runs during SVT/AF incident necessitatin ICU earlier this admission. ECHO: normal LVEF. On metoprolol and diltiazem. Maintain electrolytes.; control BP. Coronary artery evaluation when stable. Code(s): I47.2 - VENTRICULAR TACHYCARDIA
[2019-10-04] MEDS: NYSTATIN/TRIAMCINOLONE TOPICAL CREAM 15 GM TUBE TP SCH ×2 (11:41→21:38)
--- NOTE | 2019-10-04 15:45 | PN ---
Progress Note (short form) - Note Progress Note: Renal follow up for BEKA Pt seen and examined at the bedside awake and alert on BIPAP sob is persistent but not worse Vital Signs Temperature 98.2 F 10/04/19 15:10 Pulse Rate 92 H 10/04/19 15:10 Respiratory Rate 20 10/04/19 09:31 Blood Pressure 128/51 L 10/04/19 15:10 O2 Sat by Pulse Oximetry (%) 96 10/04/19 11:45 Intake & Output 10/01/19 10/02/19 10/03/19 10/04/19 23:59 23:59 23:59 23:59 Intake Total 260 730 400 520 Balance 260 730 400 520 NAD neck supple, no JVD RRR, no M/R Dec BS at lung bases soft, obese, NT/ND no bladder distension trace edema in LE CBC, BMP 10/03/19 08:17 10/03/19 08:17 Current Medications Acetaminophen (Tylenol -) 650 mg PO Q6H PRN PRN Reason: FEVER OR PAIN LEVEL 1 - 3 Apixaban (Eliquis -) 5 mg PO BID [facility] Last Admin: 10/04/19 10:18 Dose: 5 mg Atorvastatin Calcium (Lipitor -) 40 mg PO HS [facility] Last Admin: 10/03/19 22:17 Dose: 40 mg Benzocaine/Menthol (Cepacol Lozenge -) 1 each MM Q2H PRN PRN Reason: SORE THROAT Colchicine (Colcrys) 0.6 mg PO DAILY [facility] Last Admin: 10/04/19 10:19 Dose: 0.6 mg Diltiazem HCl (Cardizem Cd -) 180 mg PO DAILY [facility] Last Admin: 10/04/19 10:19 Dose: 180 mg Duloxetine HCl (Cymbalta -) 40 mg PO DAILY [facility] Last Admin: 10/04/19 10:19 Dose: 40 mg Furosemide (Lasix -) 20 mg PO DAILY [facility] Gabapentin (Neurontin -) 300 mg PO TID [facility] Last Admin: 10/04/19 13:26 Dose: 300 mg Insulin Aspart (Novolog Vial Sliding Scale -) 1 vial SQ ACHS [facility]; Protocol Last Admin: 10/04/19 11:41 Dose: Not Given Insulin Detemir (Levemir Vial) 10 units SQ 0700 [facility] Last Admin: 10/04/19 06:30 Dose: 10 units Lidocaine (Lidoderm Patch -) 1 patch TP DAILY [facility] Last Admin: 10/04/19 10:19 Dose: 1 patch Melatonin (Melatonin) 5 mg PO HS PRN PRN Reason: INSOMNIA Metoprolol Succinate (Toprol Xl -) 50 mg PO DAILY [facility] Last Admin: 10/04/19 10:18 Dose: 50 mg Miscellaneous (Lidoderm Patch Removal) 1 each MC DAILY@2200 [facility] Last Admin: 10/03/19 22:18 Dose: 1 each Multivitamins/Minerals/Vitamin C (Tab-A-Vit -) 1 tab PO DAILY [facility] Last Admin: 10/04/19 10:18 Dose: 1 tab Nystatin/Triamcinolone Acetonide (Mycolog Ii Cream -) 1 applic TP BID [facility] Last Admin: 10/04/19 11:41 Dose: 1 applic Pantoprazole Sodium (Protonix -) 40 mg PO DAILY [facility] Polyethylene Glycol (Miralax (For Daily Use) -) 17 gm PO BID [facility] Last Admin: 10/04/19 10:20 Dose: Not Given Prednisone (Deltasone -) 20 mg PO DAILY [facility] Last Admin: 10/04/19 10:18 Dose: 20 mg Senna/Docusate Sodium (Pericolace -) 1 tablet PO BID [facility] Last Admin: 10/04/19 10:33 Dose: Not Given Tamsulosin HCl (Flomax -) 0.4 mg PO DAILY@0830 [facility] Last Admin: 10/04/19 08:37 Dose: 0.4 mg Trazodone HCl (Desyrel -) 50 mg PO HS [facility] Last Admin: 10/03/19 22:17 Dose: 50 mg Ursodiol (Actigal -) 300 mg PO BID [facility] Last Admin: 10/04/19 10:19 Dose: 300 mg Vancomycin HCl (Vancomycin Oral Solution) 125 mg PO Q6HPO [facility] 78 year old gentleman with history of CHF with reduced LVEF, Afib, Anemia and DM with recent admission for gross hematuria and EBKA now presents with diffuse body pain and joint pain with BEKA. 1. Acute kidney injury now resolved 2. Joint pains 3. CHF with reduced LVEF 4. Leukocytosis 5. Anemia Renal function stable converted to oral Lasix check CXR in AM cardiology follow up Thank you Saul Diaz DO
[2019-10-04] MEDS: VANCOMYCIN 250 MG/5 ML ORAL SOLUTION PO SCH ×2 (17:51→23:41)
[2019-10-04] MEDS: traZODone HCL 50 MG TABLET (FP) PO SCH (21:38)
[2019-10-04] MEDS: ATORVASTATIN CA 40 MG TABLET (FP) PO SCH (21:38)
[2019-10-04] MEDS: LIDOCAINE PATCH REMOVAL MC SCH (21:41)
[2019-10-05] MEDS: GABAPENTIN 300 MG CAPSULE (FP) PO SCH ×3 (06:47→22:56)
[2019-10-05] MEDS: INSULIN SLIDING SCALE (NOVOLOG) 1 VIAL SQ SCH ×4 (06:47→22:57)
[2019-10-05] MEDS: VANCOMYCIN 250 MG/5 ML ORAL SOLUTION PO SCH ×4 (06:47→23:11)
[2019-10-05] MEDS: INSULIN (LEVEMIR) 100 UNITS/ML UNITS SQ SCH (06:48)
[2019-10-05 08:42] LABS: BLOOD UREA NITROGEN 18.2 mg/dL (7-18); CALCIUM 8.5 mg/dL (8.5-10.1); CREATININE 0.8 mg/dL (0.55-1.3); MAGNESIUM 1.6 mg/dL (1.8-2.4); PHOSPHOROUS 1.9 mg/dL (2.5-4.9); POTASSIUM 3.4 mmol/L (3.5-5.1)
--- NOTE | 2019-10-05 10:55 | PN ---
Progress Note, Physician Chief Complaint: Pneumonia Afib History of Present Illness: Previous notes and events reviewed awake and alert breathing on NC NAD denies chest pain or palpitations sts his breathing is not getting better pt appeal discharge - Current Medication List Current Medications: Active Medications Acetaminophen (Tylenol -) 650 mg PO Q6H PRN PRN Reason: FEVER OR PAIN LEVEL 1 - 3 Apixaban (Eliquis -) 5 mg PO BID [facility] Last Admin: 10/04/19 21:38 Dose: 5 mg Atorvastatin Calcium (Lipitor -) 40 mg PO HS [facility] Last Admin: 10/04/19 21:38 Dose: 40 mg Benzocaine/Menthol (Cepacol Lozenge -) 1 each MM Q2H PRN PRN Reason: SORE THROAT Colchicine (Colcrys) 0.6 mg PO DAILY [facility] Last Admin: 10/04/19 10:19 Dose: 0.6 mg Diltiazem HCl (Cardizem Cd -) 180 mg PO DAILY [facility] Last Admin: 10/04/19 10:19 Dose: 180 mg Duloxetine HCl (Cymbalta -) 40 mg PO DAILY [facility] Last Admin: 10/04/19 10:19 Dose: 40 mg Furosemide (Lasix -) 20 mg PO DAILY [facility] Gabapentin (Neurontin -) 300 mg PO TID [facility] Last Admin: 10/05/19 06:47 Dose: 300 mg Insulin Aspart (Novolog Vial Sliding Scale -) 1 vial SQ ACHS [facility]; Protocol Last Admin: 10/05/19 06:47 Dose: Not Given Insulin Detemir (Levemir Vial) 10 units SQ 0700 [facility] Last Admin: 10/05/19 06:48 Dose: 10 units Lidocaine (Lidoderm Patch -) 1 patch TP DAILY [facility] Last Admin: 10/04/19 10:19 Dose: 1 patch Melatonin (Melatonin) 5 mg PO HS PRN PRN Reason: INSOMNIA Metoprolol Succinate (Toprol Xl -) 50 mg PO DAILY [facility] Last Admin: 10/04/19 10:18 Dose: 50 mg Miscellaneous (Lidoderm Patch Removal) 1 each MC DAILY@2200 [facility] Last Admin: 10/04/19 21:41 Dose: 1 each Multivitamins/Minerals/Vitamin C (Tab-A-Vit -) 1 tab PO DAILY [facility] Last Admin: 10/04/19 10:18 Dose: 1 tab Nystatin/Triamcinolone Acetonide (Mycolog Ii Cream -) 1 applic TP BID [facility] Last Admin: 10/04/19 21:38 Dose: 1 applic Pantoprazole Sodium (Protonix -) 40 mg PO DAILY [facility] Polyethylene Glycol (Miralax (For Daily Use) -) 17 gm PO BID [facility] Last Admin: 10/04/19 21:38 Dose: Not Given Prednisone (Deltasone -) 20 mg PO DAILY [facility] Last Admin: 10/04/19 10:18 Dose: 20 mg Senna/Docusate Sodium (Pericolace -) 1 tablet PO BID [facility] Last Admin: 10/04/19 21:37 Dose: 1 tablet Tamsulosin HCl (Flomax -) 0.4 mg PO DAILY@0830 [facility] Last Admin: 10/04/19 08:37 Dose: 0.4 mg Trazodone HCl (Desyrel -) 50 mg PO HS [facility] Last Admin: 10/04/19 21:38 Dose: 50 mg Ursodiol (Actigal -) 300 mg PO BID [facility] Last Admin: 10/04/19 21:38 Dose: 300 mg Vancomycin HCl (Vancomycin Oral Solution) 125 mg PO Q6HPO [facility] Last Admin: 10/05/19 06:47 Dose: 125 mg - Objective Vital Signs: Vital Signs Temperature 98.3 F 10/05/19 06:10 Pulse Rate 93 H 10/05/19 06:10 Respiratory Rate 20 10/05/19 06:10 Blood Pressure 129/67 10/05/19 06:10 O2 Sat by Pulse Oximetry (%) 99 10/05/19 02:14 Constitutional: Yes: No Distress, Calm Eyes: Yes: Conjunctiva Clear HENT: Yes: Atraumatic Cardiovascular: Yes: Regular Rate and Rhythm Respiratory: Yes: Regular, Cough, Diminished, On Nasal O2 Gastrointestinal: Yes: Normal Bowel Sounds, Soft Musculoskeletal: Yes: Joint Swelling, Muscle Weakness Extremities: Yes: WNL Edema: No Neurological: Yes: Alert, Oriented Psychiatric: Yes: Alert, Oriented Labs: CBC, BMP 10/03/19 08:17 10/05/19 07:00 INR, PTT INR 3.09 (0.83-1.09) H 09/20/19 22:24 Microbiology 10/03/19 14:00 Stool Gram Stain - Final 10/03/19 14:00 Stool Clostridioides difficile Antigen - Final 10/03/19 14:00 Stool Clostridioides difficile Toxin Assay - Final 10/03/19 14:00 Stool Salmonella/Shigella Culture - Preliminary NO ENTERIC PATHOGENS, 24 HOURS, ON PRIMARY PLATES 10/03/19 14:00 Stool Yersinia Culture - Preliminary NO ENTERIC PATHOGENS, 24 HOURS, ON PRIMARY PLATES 10/03/19 14:00 Stool Vibrio Culture - Final NO GROWTH OF VIBRIO SPECIES OBTAINED 10/03/19 14:00 Stool Escherichia coli 0157 Culture - Final NO GROWTH OF E COLI 0157 OBTAINED 09/21/19 00:00 Blood - Peripheral Venous Blood Culture - Final NO GROWTH AFTER 5 DAYS INCUBATION 09/21/19 00:00 Blood - Peripheral Venous Blood Culture - Final NO GROWTH AFTER 5 DAYS INCUBATION 09/21/19 18:00 Synovial Fluid - Knee Gram Stain - Final 09/21/19 18:00 Synovial Fluid - Knee Body Fluid Culture - Final NO GROWTH OF AEROBIC ORGANISMS AFTER 48 HOURS INCUBATION 09/21/19 18:00 Synovial Fluid - Knee Anaerobic Culture - Final NO ANAEROBES WERE ISOLATED 09/22/19 19:45 Urine For Antigen Detection Legionella Antigen - Final 09/22/19 19:45 Urine For Antigen Detection Streptococcus pneumoniae Antigen (M - Final 09/21/19 18:40 Nares - Mrsa Screen - Right MRSA Screen - Final NO MRSA ISOLATED 09/21/19 18:40 Nares - Mrsa Screen - Left MRSA Screen - Final NO MRSA ISOLATED 09/21/19 00:28 Urine - Urine - Catheterized Urine Culture - Final NO GROWTH OBTAINED Problem List - Problems (1) Tachycardia Assessment/Plan: -Cardiology on board -rate controlled with Metoprolol and Cardizem -tele monitoring discontinued Code(s): R00.0 - TACHYCARDIA, UNSPECIFIED (2) Acute on chronic respiratory failure with hypoxia and hypercapnia Assessment/Plan: -Pulm on board -Bronchodilators -O2 via C -Bipap HS -Prednisone -CHest CT shows atelectasis/infiltration at both bases -Keep SpO2 >90% -repeat Chest CT scan shows diffuse bilateral patchy infiltrates suspicious for pneumonia or congestion that have developed since 09/21/2019, persistent bibasilar atelectasis, left greater than right, and small bilateral pleural effusion Code(s): J96.21 - ACUTE AND CHRONIC RESPIRATORY FAILURE WITH HYPOXIA; J96.22 - ACUTE AND CHRONIC RESPIRATORY FAILURE WITH HYPERCAPNIA (3) Leukocytosis Assessment/Plan: -WBC 18.1 -afebrile -BC and UC neg -MRSA screen neg -Legionella neg -Vancomycin and Zosyn discontinued, monitor off -ID on board -Tylenol for temp >100F -repeat Chest CT scan shows diffuse bilateral patchy infiltrates suspicious for pneumonia or congestion that have developed since 09/21/2019, persistent bibasilar atelectasis, left greater than right, and small bilateral pleural effusion -reconsult ID Code(s): D72.829 - ELEVATED WHITE BLOOD CELL COUNT, UNSPECIFIED Qualifiers: Leukocytosis type: unspecified Qualified Code(s): D72.829 - Elevated white blood cell count, unspecified (4) Paget's bone disease Assessment/Plan: -Hematology on board Code(s): M88.9 - OSTEITIS DEFORMANS OF UNSPECIFIED BONE (5) Pneumonia Assessment/Plan: -WBC 18.1 -afebrile -BC neg -MRSA screen neg -Urine Legionella neg -Vancomycin and Zosyn, completed course monitor off -ID on board -Tylenol for temp >100F -Pulm on board -Bronchodilators -O2 via NC -Bipap HS and PRN -Prednisone -CHest CT shows atelectasis/infiltration at both bases -Keep SpO2 >90% -repeat Chest CT scan shows diffuse bilateral patchy infiltrates suspicious for pneumonia or congestion that have developed since 09/21/2019, persistent bibasilar atelectasis, left greater than right, and small bilateral pleural effusion -reconsult ID Code(s): J18.9 - PNEUMONIA, UNSPECIFIED ORGANISM Qualifiers: Pneumonia type: due to unspecified organism Laterality: left Lung location: lower lobe of lung Qualified Code(s): J18.9 - Pneumonia, unspecified organism (6) Polyarthralgia Assessment/Plan: -Rheumatology on board -ESR >140, CRP 41.6, Uric Acid wnl -pain control -s/p aspiration L knee~fluid positive for monosodium urate crystals -Prednisone -Colchicine Code(s): M25.50 - PAIN IN UNSPECIFIED JOINT (7) Anemia Assessment/Plan: -Anemia panel reviewed -Hg 9.0 -monitor H/H -transfuse for Hg <7.0 to avoid fluid overload Code(s): D64.9 - ANEMIA, UNSPECIFIED (8) Atrial fibrillation Assessment/Plan: -Eliquis BID -rate controlled with Metoprolol and Cardizem Code(s): I48.91 - UNSPECIFIED ATRIAL FIBRILLATION (9) HLD (hyperlipidemia) Assessment/Plan: -Atorvastatin Code(s): E78.5 - HYPERLIPIDEMIA, UNSPECIFIED Qualifiers: Hyperlipidemia type: other hyperlipidemia Qualified Code(s): E78.49 - Other hyperlipidemia; E78.4 - Other hyperlipidemia (10) Hypertension Assessment/Plan: -Amlodipine -low Na diet Code(s): I10 - ESSENTIAL (PRIMARY) HYPERTENSION Qualifiers: Hypertension type: unspecified Qualified Code(s): I10 - Essential (primary ) hypertension (11) BPH (benign prostatic hyperplasia) Assessment/Plan: -Tamsulosin Code(s): N40.0 - BENIGN PROSTATIC HYPERPLASIA WITHOUT LOWER URINRY TRACT SYMP (12) Diabetes Assessment/Plan: -BGM ACHS -Levemir -ISS Code(s): E11.9 - TYPE 2 DIABETES MELLITUS WITHOUT COMPLICATIONS Qualifiers: Diabetes mellitus type: other specified (including TAN) Diabetes mellitus senior care insulin use: unspecified senior care insulin use status Diabetes mellitus complication status: with other specified complication Qualified Code (s): E13.69 - Other specified diabetes mellitus with other specified complication (13) UTI (urinary tract infection) Assessment/Plan: -ID on board -leukocytosis -afebrile -UA shows 3+ leuks, 3+ protein, 2+ bilirubin -UC neg Code(s): N39.0 - URINARY TRACT INFECTION, SITE NOT SPECIFIED (14) BEKA (acute kidney injury) Assessment/Plan: -Renal on board -BUN/Cr 2118.2/0.8 -monitor real function Code(s): N17.9 - ACUTE KIDNEY FAILURE, UNSPECIFIED Assessment/Plan see problem list can begin d/c planning to SNF appeal discharge, pending results
--- NOTE | 2019-10-05 11:20 | PN ---
Progress Note, Physician Chief Complaint: Cardiology - Current Medication List Current Medications: Active Medications Acetaminophen (Tylenol -) 650 mg PO Q6H PRN PRN Reason: FEVER OR PAIN LEVEL 1 - 3 Apixaban (Eliquis -) 5 mg PO BID [facility] Last Admin: 10/04/19 21:38 Dose: 5 mg Atorvastatin Calcium (Lipitor -) 40 mg PO HS [facility] Last Admin: 10/04/19 21:38 Dose: 40 mg Benzocaine/Menthol (Cepacol Lozenge -) 1 each MM Q2H PRN PRN Reason: SORE THROAT Colchicine (Colcrys) 0.6 mg PO DAILY [facility] Last Admin: 10/04/19 10:19 Dose: 0.6 mg Diltiazem HCl (Cardizem Cd -) 180 mg PO DAILY [facility] Last Admin: 10/04/19 10:19 Dose: 180 mg Duloxetine HCl (Cymbalta -) 40 mg PO DAILY [facility] Last Admin: 10/04/19 10:19 Dose: 40 mg Furosemide (Lasix -) 20 mg PO DAILY [facility] Gabapentin (Neurontin -) 300 mg PO TID [facility] Last Admin: 10/05/19 06:47 Dose: 300 mg Insulin Aspart (Novolog Vial Sliding Scale -) 1 vial SQ ACHS [facility]; Protocol Last Admin: 10/05/19 06:47 Dose: Not Given Insulin Detemir (Levemir Vial) 10 units SQ 0700 [facility] Last Admin: 10/05/19 06:48 Dose: 10 units Lidocaine (Lidoderm Patch -) 1 patch TP DAILY [facility] Last Admin: 10/04/19 10:19 Dose: 1 patch Melatonin (Melatonin) 5 mg PO HS PRN PRN Reason: INSOMNIA Metoprolol Succinate (Toprol Xl -) 50 mg PO DAILY [facility] Last Admin: 10/04/19 10:18 Dose: 50 mg Miscellaneous (Lidoderm Patch Removal) 1 each MC DAILY@2200 [facility] Last Admin: 10/04/19 21:41 Dose: 1 each Multivitamins/Minerals/Vitamin C (Tab-A-Vit -) 1 tab PO DAILY [facility] Last Admin: 10/04/19 10:18 Dose: 1 tab Nystatin/Triamcinolone Acetonide (Mycolog Ii Cream -) 1 applic TP BID [facility] Last Admin: 10/04/19 21:38 Dose: 1 applic Pantoprazole Sodium (Protonix -) 40 mg PO DAILY [facility] Polyethylene Glycol (Miralax (For Daily Use) -) 17 gm PO BID [facility] Last Admin: 10/04/19 21:38 Dose: Not Given Prednisone (Deltasone -) 20 mg PO DAILY [facility] Last Admin: 10/04/19 10:18 Dose: 20 mg Senna/Docusate Sodium (Pericolace -) 1 tablet PO BID [facility] Last Admin: 10/04/19 21:37 Dose: 1 tablet Tamsulosin HCl (Flomax -) 0.4 mg PO DAILY@0830 [facility] Last Admin: 10/04/19 08:37 Dose: 0.4 mg Trazodone HCl (Desyrel -) 50 mg PO HS [facility] Last Admin: 10/04/19 21:38 Dose: 50 mg Ursodiol (Actigal -) 300 mg PO BID [facility] Last Admin: 10/04/19 21:38 Dose: 300 mg Vancomycin HCl (Vancomycin Oral Solution) 125 mg PO Q6HPO [facility] Last Admin: 10/05/19 06:47 Dose: 125 mg - Objective Vital Signs: Vital Signs Temperature 98.9 F 10/05/19 11:06 Pulse Rate 104 H 10/05/19 11:06 Respiratory Rate 20 10/05/19 11:06 Blood Pressure 122/73 10/05/19 11:06 O2 Sat by Pulse Oximetry (%) 99 10/05/19 02:14 Eyes: Yes: WNL, Conjunctiva Clear, EOM Intact HENT: Yes: WNL, Atraumatic, Normocephalic Neck: Yes: WNL, Supple, Trachea Midline Cardiovascular: Yes: WNL, Regular Rate and Rhythm Respiratory: Yes: WNL, Regular, CTA Bilaterally Gastrointestinal: Yes: WNL, Normal Bowel Sounds Genitourinary: Yes: WNL Musculoskeletal: Yes: WNL Extremities: Yes: WNL Edema: No Integumentary: Yes: WNL Neurological: Yes: WNL, Alert, Oriented ...Motor Strength: WNL Psychiatric: Yes: WNL Labs: CBC, BMP 10/03/19 08:17 10/05/19 07:00 INR, PTT INR 3.09 (0.83-1.09) H 09/20/19 22:24 Assessment/Plan - Problems r/o chf h/o high BNP sob will rechec bnp start lasix IV 20 mg monitor bnp Code(s): E86.0 - DEHYDRATION (2) Acute on chronic respiratory failure with hypoxia and hypercapnia Assessment/Plan: on Bipap nightly. Encourage physical and pulmonary rehabilitation. Code(s): J96.21 - ACUTE AND CHRONIC RESPIRATORY FAILURE WITH HYPOXIA; J96.22 - ACUTE AND CHRONIC RESPIRATORY FAILURE WITH HYPERCAPNIA (3) Leukocytosis Code(s): D72.829 - ELEVATED WHITE BLOOD CELL COUNT, UNSPECIFIED Qualifiers: Leukocytosis type: unspecified Qualified Code(s): D72.829 - Elevated white blood cell count, unspecified (4) Paget's bone disease Code(s): M88.9 - OSTEITIS DEFORMANS OF UNSPECIFIED BONE (5) Pneumonia Assessment/Plan: on antibitotics per ID. Code(s): J18.9 - PNEUMONIA, UNSPECIFIED ORGANISM Qualifiers: Pneumonia type: due to unspecified organism Laterality: left Lung location: lower lobe of lung Qualified Code(s): J18.9 - Pneumonia, unspecified organism (6) Depression Code(s): F32.9 - MAJOR DEPRESSIVE DISORDER, SINGLE EPISODE, UNSPECIFIED (7) Diabetes Code(s): E11.9 - TYPE 2 DIABETES MELLITUS WITHOUT COMPLICATIONS Qualifiers: Diabetes mellitus type: other specified (including TAN) Diabetes mellitus manager terminal insulin use: unspecified snf insulin use status Diabetes mellitus complication status: with other specified complication Qualified Code (s): E13.69 - Other specified diabetes mellitus with other specified complication (8) Diastolic CHF Code(s): I50.30 - UNSPECIFIED DIASTOLIC (CONGESTIVE) HEART FAILURE (9) HLD (hyperlipidemia) Assessment/Plan: on statinj Code(s): E78.5 - HYPERLIPIDEMIA, UNSPECIFIED Qualifiers: Hyperlipidemia type: other hyperlipidemia Qualified Code(s): E78.49 - Other hyperlipidemia; E78.4 - Other hyperlipidemia (10) Atrial fibrillation Assessment/Plan: Brief periods of AF with RVR. Will increase diltiazem CD to 130 mg daily (and stop amlodipine, a 2nd calcium channel quirino). Continue metoprolol ER. Continue apixaban for anticoagulation (and stop ASA: increased risk of bleed; anemia; no hx FL, PCI). Code(s): I48.91 - UNSPECIFIED ATRIAL FIBRILLATION (11) NSVT (nonsustained ventricular tachycardia) Assessment/Plan: breif, nonsustanted runs during SVT/AF incident necessitatin ICU earlier this admission. ECHO: normal LVEF. On metoprolol and diltiazem. Maintain electrolytes.; control BP. Coronary artery evaluation when stable. Code(s): I47.2 - VENTRICULAR TACHYCARDIA
[2019-10-05] MEDS: FUROSEMIDE 20 MG TABLET (FP) PO SCH (11:28)
[2019-10-05] MEDS: predniSONE 20 MG TABLET (UD) PO SCH (11:28)
[2019-10-05] MEDS: SENNOSIDES/DOCUSATE COMBO (SENNA PLUS) TABLET (UD) PO SCH ×2 (11:28→22:56)
[2019-10-05] MEDS: TAMSULOSIN HCL 0.4 MG CAP PO SCH (11:28)
[2019-10-05] MEDS: URSODIOL 300 MG CAPSULE PO SCH ×2 (11:28→22:56)
[2019-10-05] MEDS: COLCHICINE 0.6 MG CAP PO SCH (11:28)
[2019-10-05] MEDS: PANTOPRAZOLE 40 MG TABLET (FP) PO SCH (11:28)
[2019-10-05] MEDS: LIDOCAINE 5% TOPICAL PATCH TP SCH (11:28)
[2019-10-05] MEDS: MULTIVITAMINS (DAILY MVI) TABLET (FP) PO SCH (11:29)
[2019-10-05] MEDS: DULoxetine HCL 20 MG CAPSULE.DR PO SCH (11:30)
[2019-10-05] MEDS: APIXABAN 5 MG TABLET PO SCH ×2 (11:30→22:56)
[2019-10-05] MEDS: POLYETHYLENE GLYCOL 3350 119 GM BTL PO SCH ×2 (11:31→22:56)
[2019-10-05] MEDS: NYSTATIN/TRIAMCINOLONE TOPICAL CREAM 15 GM TUBE TP SCH ×2 (11:33→22:56)
[2019-10-05] MEDS ORDERED: POTASSIUM CHLORIDE TABS 20 MEQ TABLET.ER (FP) PO ONE (11:57)
[2019-10-05] MEDS ORDERED: MAGNESIUM SULF 50% (8.12 MEQ/2 ML-1 GM VIAL) IVPB ONE (12:05)
[2019-10-05] MEDS ORDERED: POTASSIUM PHOSPHATE 30 MM in DEXTROSE 5%-WATER - 500 ML IVPB ONE (12:15)
--- NOTE | 2019-10-05 13:44 | PN ---
Progress Note (short form) - Note Progress Note: Renal follow up for BEKA Pt seen and examined at the bedside awake and alert on NC O2, sob is improved had 2 loose BM's yesterday now on isolation for C diff making urine no chest pain, abd pain, fever or chills Vital Signs Temperature 98.9 F 10/05/19 11:06 Pulse Rate 104 H 10/05/19 11:06 Respiratory Rate 20 10/05/19 11:06 Blood Pressure 122/73 10/05/19 11:06 O2 Sat by Pulse Oximetry (%) 99 10/05/19 02:14 Intake & Output 10/02/19 10/03/19 10/04/19 10/05/19 23:59 23:59 23:59 23:59 Intake Total 730 400 720 200 Balance 730 400 720 200 NAD neck supple, no JVD RRR, no M/R Dec BS at lung bases soft, obese, NT/ND no bladder distension trace edema in LE CBC, BMP 10/03/19 08:17 10/05/19 07:00 Current Medications Acetaminophen (Tylenol -) 650 mg PO Q6H PRN PRN Reason: FEVER OR PAIN LEVEL 1 - 3 Apixaban (Eliquis -) 5 mg PO BID [facility] Last Admin: 10/05/19 11:30 Dose: 5 mg Atorvastatin Calcium (Lipitor -) 40 mg PO HS [facility] Last Admin: 10/04/19 21:38 Dose: 40 mg Benzocaine/Menthol (Cepacol Lozenge -) 1 each MM Q2H PRN PRN Reason: SORE THROAT Colchicine (Colcrys) 0.6 mg PO DAILY [facility] Last Admin: 10/05/19 11:28 Dose: 0.6 mg Diltiazem HCl (Cardizem Cd -) 180 mg PO DAILY [facility] Last Admin: 10/05/19 11:28 Dose: 180 mg Duloxetine HCl (Cymbalta -) 40 mg PO DAILY [facility] Last Admin: 10/05/19 11:30 Dose: 40 mg Furosemide (Lasix -) 20 mg PO DAILY [facility] Last Admin: 10/05/19 11:28 Dose: 20 mg Gabapentin (Neurontin -) 300 mg PO TID [facility] Last Admin: 10/05/19 13:18 Dose: 300 mg Potassium Phosphate 30 mm/ (Dextrose) 510 mls @ 62.5 mls/hr IVPB ONCE ONE Stop: 10/05/19 20:24 Insulin Aspart (Novolog Vial Sliding Scale -) 1 vial SQ ACHS [facility]; Protocol Last Admin: 10/05/19 11:39 Dose: 2 units Insulin Detemir (Levemir Vial) 10 units SQ 0700 [facility] Last Admin: 10/05/19 06:48 Dose: 10 units Lidocaine (Lidoderm Patch -) 1 patch TP DAILY [facility] Last Admin: 10/05/19 11:28 Dose: 1 patch Melatonin (Melatonin) 5 mg PO HS PRN PRN Reason: INSOMNIA Metoprolol Succinate (Toprol Xl -) 50 mg PO DAILY [facility] Last Admin: 10/05/19 11:30 Dose: 50 mg Miscellaneous (Lidoderm Patch Removal) 1 each MC DAILY@2200 [facility] Last Admin: 10/04/19 21:41 Dose: 1 each Multivitamins/Minerals/Vitamin C (Tab-A-Vit -) 1 tab PO DAILY [facility] Last Admin: 10/05/19 11:29 Dose: 1 tab Nystatin/Triamcinolone Acetonide (Mycolog Ii Cream -) 1 applic TP BID [facility] Last Admin: 10/05/19 11:33 Dose: 1 applic Pantoprazole Sodium (Protonix -) 40 mg PO DAILY [facility] Last Admin: 10/05/19 11:28 Dose: 40 mg Polyethylene Glycol (Miralax (For Daily Use) -) 17 gm PO BID [facility] Last Admin: 10/05/19 11:31 Dose: 17 grams Prednisone (Deltasone -) 20 mg PO DAILY [facility] Last Admin: 10/05/19 11:28 Dose: 20 mg Senna/Docusate Sodium (Pericolace -) 1 tablet PO BID [facility] Last Admin: 10/05/19 11:28 Dose: 1 tablet Tamsulosin HCl (Flomax -) 0.4 mg PO DAILY@0830 [facility] Last Admin: 10/05/19 11:28 Dose: 0.4 mg Trazodone HCl (Desyrel -) 50 mg PO HS [facility] Last Admin: 10/04/19 21:38 Dose: 50 mg Ursodiol (Actigal -) 300 mg PO BID [facility] Last Admin: 10/05/19 11:28 Dose: 300 mg Vancomycin HCl (Vancomycin Oral Solution) 125 mg PO Q6HPO [facility] Last Admin: 10/05/19 13:18 Dose: 125 mg 78 year old gentleman with history of CHF with reduced LVEF, Afib, Anemia and DM with recent admission for gross hematuria and BEKA now presents with diffuse body pain and joint pain with BEKA. 1. Acute kidney injury now resolved 2. Joint pains 3. CHF with reduced LVEF 4. Leukocytosis 5. Anemia Renal function stable will supplament potassium, phosphate and Mg oral intake as tolerated continue low dose Lasix daily trend renal function and electrolytes continue abx as per primary Thank you Saul Diaz DO
--- NOTE | 2019-10-05 14:34 | PN ---
Progress Note (short form) - Note Progress Note: PULMONARY Back on BiPAP with improvement. Saturating 99% on 40% FiO2. Vital Signs Period Temp Pulse Resp BP Sys/Enamorado Pulse Ox Last 24 Hr 98.2 F-98.9 F 92-104 20-20 112-129/51-73 95-99 Gen: NAD on BiPAP Heart: RRR Lung: decreased breath sounds at the bases Abd: soft, nontender Ext: no edema CBC, BMP 10/03/19 08:17 10/05/19 07:00 Active Medications Acetaminophen (Tylenol -) 650 mg PO Q6H PRN PRN Reason: FEVER OR PAIN LEVEL 1 - 3 Apixaban (Eliquis -) 5 mg PO BID [facility] Last Admin: 10/05/19 11:30 Dose: 5 mg Atorvastatin Calcium (Lipitor -) 40 mg PO HS [facility] Last Admin: 10/04/19 21:38 Dose: 40 mg Benzocaine/Menthol (Cepacol Lozenge -) 1 each MM Q2H PRN PRN Reason: SORE THROAT Colchicine (Colcrys) 0.6 mg PO DAILY [facility] Last Admin: 10/05/19 11:28 Dose: 0.6 mg Diltiazem HCl (Cardizem Cd -) 180 mg PO DAILY [facility] Last Admin: 10/05/19 11:28 Dose: 180 mg Duloxetine HCl (Cymbalta -) 40 mg PO DAILY [facility] Last Admin: 10/05/19 11:30 Dose: 40 mg Furosemide (Lasix -) 20 mg PO DAILY [facility] Last Admin: 10/05/19 11:28 Dose: 20 mg Gabapentin (Neurontin -) 300 mg PO TID [facility] Last Admin: 10/05/19 13:18 Dose: 300 mg Potassium Phosphate 30 mm/ (Dextrose) 510 mls @ 62.5 mls/hr IVPB ONCE ONE Stop: 10/05/19 20:24 Insulin Aspart (Novolog Vial Sliding Scale -) 1 vial SQ ACHS [facility]; Protocol Last Admin: 10/05/19 11:39 Dose: 2 units Insulin Detemir (Levemir Vial) 10 units SQ 0700 [facility] Last Admin: 10/05/19 06:48 Dose: 10 units Lidocaine (Lidoderm Patch -) 1 patch TP DAILY [facility] Last Admin: 10/05/19 11:28 Dose: 1 patch Melatonin (Melatonin) 5 mg PO HS PRN PRN Reason: INSOMNIA Metoprolol Succinate (Toprol Xl -) 50 mg PO DAILY [facility] Last Admin: 10/05/19 11:30 Dose: 50 mg Miscellaneous (Lidoderm Patch Removal) 1 each MC DAILY@2200 [facility] Last Admin: 10/04/19 21:41 Dose: 1 each Multivitamins/Minerals/Vitamin C (Tab-A-Vit -) 1 tab PO DAILY [facility] Last Admin: 10/05/19 11:29 Dose: 1 tab Nystatin/Triamcinolone Acetonide (Mycolog Ii Cream -) 1 applic TP BID [facility] Last Admin: 10/05/19 11:33 Dose: 1 applic Pantoprazole Sodium (Protonix -) 40 mg PO DAILY [facility] Last Admin: 10/05/19 11:28 Dose: 40 mg Polyethylene Glycol (Miralax (For Daily Use) -) 17 gm PO BID [facility] Last Admin: 10/05/19 11:31 Dose: 17 grams Prednisone (Deltasone -) 20 mg PO DAILY [facility] Last Admin: 10/05/19 11:28 Dose: 20 mg Senna/Docusate Sodium (Pericolace -) 1 tablet PO BID [facility] Last Admin: 10/05/19 11:28 Dose: 1 tablet Tamsulosin HCl (Flomax -) 0.4 mg PO DAILY@0830 [facility] Last Admin: 10/05/19 11:28 Dose: 0.4 mg Trazodone HCl (Desyrel -) 50 mg PO HS [facility] Last Admin: 10/04/19 21:38 Dose: 50 mg Ursodiol (Actigal -) 300 mg PO BID [facility] Last Admin: 10/05/19 11:28 Dose: 300 mg Vancomycin HCl (Vancomycin Oral Solution) 125 mg PO Q6HPO [facility] Last Admin: 10/05/19 13:18 Dose: 125 mg A/P Acute Hypoxic and Hypercapneic Respiratory Failure Acute Pulmonary Edema Acute on Chronic Diastolic Heart Failure Atrial Fibrillation with RVR r/o Pneumonia new bilateral patchy infiltrates UTI Acute Kidney Injury COPD Paget's Disease DM Anemia - rate control per cardiology - continue lasix - monitor urine output, creatinine - continue anticoagulation - BiPAP as needed to assist in work of breathing - O2 to keep SpO2 >90% - completed antibiotics - taper off prednisone - inhaled bronchodilators
[2019-10-05] MEDS ORDERED: INSULIN (LEVEMIR) 100 UNITS/ML UNITS SQ ONE (18:38)
[2019-10-05] MEDS ORDERED: INSULIN (NOVOLOG) ASPART 100 UNITS/ML 10ML VIAL ONE (18:38)
[2019-10-05] MEDS: ALBUTEROL SO4 0.042% IH SOL 1.25 MG/3 ML VIAL.NEB NEB PRN (20:59)
[2019-10-05] MEDS: LIDOCAINE PATCH REMOVAL MC SCH (22:56)
[2019-10-05] MEDS: ATORVASTATIN CA 40 MG TABLET (FP) PO SCH (22:56)
[2019-10-05] MEDS: traZODone HCL 50 MG TABLET (FP) PO SCH (22:56)
[2019-10-06] MEDS: VANCOMYCIN 250 MG/5 ML ORAL SOLUTION PO SCH ×4 (06:35→23:55)
[2019-10-06] MEDS: GABAPENTIN 300 MG CAPSULE (FP) PO SCH ×3 (06:36→22:09)
[2019-10-06] MEDS: INSULIN (LEVEMIR) 100 UNITS/ML UNITS SQ SCH (06:36)
[2019-10-06] MEDS: INSULIN SLIDING SCALE (NOVOLOG) 1 VIAL SQ SCH ×4 (06:36→22:20)
[2019-10-06 08:48] LABS: BLOOD UREA NITROGEN 14.4 mg/dL (7-18); CALCIUM 8.5 mg/dL (8.5-10.1); CREATININE 0.7 mg/dL (0.55-1.3); MAGNESIUM 1.9 mg/dL (1.8-2.4); PHOSPHOROUS 2.4 mg/dL (2.5-4.9); POTASSIUM 3.4 mmol/L (3.5-5.1)
--- NOTE | 2019-10-06 09:32 | PN ---
Progress Note, Physician History of Present Illness: no complaints today - Current Medication List Current Medications: Active Medications Acetaminophen (Tylenol -) 650 mg PO Q6H PRN PRN Reason: FEVER OR PAIN LEVEL 1 - 3 Albuterol Sulfate (Ventolin 0.042trength) -) 1 amp NEB Q6H PRN PRN Reason: SHORT OF BREATH/WHEEZING Last Admin: 10/05/19 20:59 Dose: 1 amp Apixaban (Eliquis -) 5 mg PO BID [facility] Last Admin: 10/05/19 22:56 Dose: 5 mg Atorvastatin Calcium (Lipitor -) 40 mg PO HS [facility] Last Admin: 10/05/19 22:56 Dose: 40 mg Benzocaine/Menthol (Cepacol Lozenge -) 1 each MM Q2H PRN PRN Reason: SORE THROAT Colchicine (Colcrys) 0.6 mg PO DAILY [facility] Last Admin: 10/05/19 11:28 Dose: 0.6 mg Diltiazem HCl (Cardizem Cd -) 180 mg PO DAILY [facility] Last Admin: 10/05/19 11:28 Dose: 180 mg Duloxetine HCl (Cymbalta -) 40 mg PO DAILY [facility] Last Admin: 10/05/19 11:30 Dose: 40 mg Furosemide (Lasix -) 20 mg PO DAILY [facility] Last Admin: 10/05/19 11:28 Dose: 20 mg Gabapentin (Neurontin -) 300 mg PO TID [facility] Last Admin: 10/06/19 06:36 Dose: 300 mg Insulin Aspart (Novolog Vial Sliding Scale -) 1 vial SQ ACHS [facility]; Protocol Last Admin: 10/06/19 06:36 Dose: Not Given Insulin Detemir (Levemir Vial) 10 units SQ 0700 [facility] Last Admin: 10/06/19 06:36 Dose: 10 units Lidocaine (Lidoderm Patch -) 1 patch TP DAILY [facility] Last Admin: 10/05/19 11:28 Dose: 1 patch Melatonin (Melatonin) 5 mg PO HS PRN PRN Reason: INSOMNIA Metoprolol Succinate (Toprol Xl -) 50 mg PO DAILY [facility] Last Admin: 10/05/19 11:30 Dose: 50 mg Miscellaneous (Lidoderm Patch Removal) 1 each MC DAILY@2200 [facility] Last Admin: 10/05/19 22:56 Dose: 1 each Multivitamins/Minerals/Vitamin C (Tab-A-Vit -) 1 tab PO DAILY [facility] Last Admin: 10/05/19 11:29 Dose: 1 tab Nystatin/Triamcinolone Acetonide (Mycolog Ii Cream -) 1 applic TP BID [facility] Last Admin: 10/05/19 22:56 Dose: 1 applic Pantoprazole Sodium (Protonix -) 40 mg PO DAILY [facility] Last Admin: 10/05/19 11:28 Dose: 40 mg Polyethylene Glycol (Miralax (For Daily Use) -) 17 gm PO BID [facility] Last Admin: 10/05/19 22:56 Dose: 17 grams Prednisone (Deltasone -) 20 mg PO DAILY [facility] Last Admin: 10/05/19 11:28 Dose: 20 mg Senna/Docusate Sodium (Pericolace -) 1 tablet PO BID [facility] Last Admin: 10/05/19 22:56 Dose: 1 tablet Tamsulosin HCl (Flomax -) 0.4 mg PO DAILY@0830 [facility] Last Admin: 10/05/19 11:28 Dose: 0.4 mg Trazodone HCl (Desyrel -) 50 mg PO HS [facility] Last Admin: 10/05/19 22:56 Dose: 50 mg Ursodiol (Actigal -) 300 mg PO BID [facility] Last Admin: 10/05/19 22:56 Dose: 300 mg Vancomycin HCl (Vancomycin Oral Solution) 125 mg PO Q6HPO [facility] Last Admin: 10/06/19 06:35 Dose: 125 mg - Objective Vital Signs: Vital Signs Temperature 98.2 F 10/05/19 23:00 Pulse Rate 98 H 10/05/19 23:00 Respiratory Rate 24 H 10/05/19 23:00 Blood Pressure 112/65 10/05/19 23:00 O2 Sat by Pulse Oximetry (%) 97 10/06/19 00:40 Cardiovascular: Yes: S1, S2 Respiratory: Yes: Regular, CTA Bilaterally Gastrointestinal: Yes: Normal Bowel Sounds, Soft Labs: CBC, BMP 10/03/19 08:17 10/06/19 07:35 INR, PTT INR 3.09 (0.83-1.09) H 09/20/19 22:24 Assessment/Plan - Problems (1) Tachycardia Assessment/Plan: -Cardiology on board -rate controlled with Metoprolol and Cardizem -tele monitoring discontinued Code(s): R00.0 - TACHYCARDIA, UNSPECIFIED (2) Acute on chronic respiratory failure with hypoxia and hypercapnia Assessment/Plan: -Pulm on board -Bronchodilators -O2 via C -Bipap HS -Prednisone -CHest CT shows atelectasis/infiltration at both bases -Keep SpO2 >90% -repeat Chest CT scan shows diffuse bilateral patchy infiltrates suspicious for pneumonia or congestion that have developed since 09/21/2019, persistent bibasilar atelectasis, left greater than right, and small bilateral pleural effusion Code(s): J96.21 - ACUTE AND CHRONIC RESPIRATORY FAILURE WITH HYPOXIA; J96.22 - ACUTE AND CHRONIC RESPIRATORY FAILURE WITH HYPERCAPNIA (3) Leukocytosis Assessment/Plan: -WBC 18.1 -afebrile -BC and UC neg -MRSA screen neg -Legionella neg -Vancomycin and Zosyn discontinued, monitor off -ID on board -Tylenol for temp >100F -repeat Chest CT scan shows diffuse bilateral patchy infiltrates suspicious for pneumonia or congestion that have developed since 09/21/2019, persistent bibasilar atelectasis, left greater than right, and small bilateral pleural effusion -reconsult ID Code(s): D72.829 - ELEVATED WHITE BLOOD CELL COUNT, UNSPECIFIED Qualifiers: Leukocytosis type: unspecified Qualified Code(s): D72.829 - Elevated white blood cell count, unspecified (4) Paget's bone disease Assessment/Plan: -Hematology on board Code(s): M88.9 - OSTEITIS DEFORMANS OF UNSPECIFIED BONE (5) Pneumonia Assessment/Plan: -WBC 18.1 -afebrile -BC neg -MRSA screen neg -Urine Legionella neg -Vancomycin and Zosyn, completed course monitor off -ID on board -Tylenol for temp >100F -Pulm on board -Bronchodilators -O2 via NC -Bipap HS and PRN -Prednisone -CHest CT shows atelectasis/infiltration at both bases -Keep SpO2 >90% -repeat Chest CT scan shows diffuse bilateral patchy infiltrates suspicious for pneumonia or congestion that have developed since 09/21/2019, persistent bibasilar atelectasis, left greater than right, and small bilateral pleural effusion -reconsult ID Code(s): J18.9 - PNEUMONIA, UNSPECIFIED ORGANISM Qualifiers: Pneumonia type: due to unspecified organism Laterality: left Lung location: lower lobe of lung Qualified Code(s): J18.9 - Pneumonia, unspecified organism (6) Polyarthralgia Assessment/Plan: -Rheumatology on board -ESR >140, CRP 41.6, Uric Acid wnl -pain control -s/p aspiration L knee~fluid positive for monosodium urate crystals -Prednisone -Colchicine Code(s): M25.50 - PAIN IN UNSPECIFIED JOINT (7) Anemia Assessment/Plan: -Anemia panel reviewed -Hg 9.0 -monitor H/H -transfuse for Hg <7.0 to avoid fluid overload Code(s): D64.9 - ANEMIA, UNSPECIFIED (8) Atrial fibrillation Assessment/Plan: -Eliquis BID -rate controlled with Metoprolol and Cardizem Code(s): I48.91 - UNSPECIFIED ATRIAL FIBRILLATION (9) HLD (hyperlipidemia) Assessment/Plan: -Atorvastatin Code(s): E78.5 - HYPERLIPIDEMIA, UNSPECIFIED Qualifiers: Hyperlipidemia type: other hyperlipidemia Qualified Code(s): E78.49 - Other hyperlipidemia; E78.4 - Other hyperlipidemia (10) Hypertension Assessment/Plan: -Amlodipine -low Na diet Code(s): I10 - ESSENTIAL (PRIMARY) HYPERTENSION Qualifiers: Hypertension type: unspecified Qualified Code(s): I10 - Essential (primary ) hypertension (11) BPH (benign prostatic hyperplasia) Assessment/Plan: -Tamsulosin Code(s): N40.0 - BENIGN PROSTATIC HYPERPLASIA WITHOUT LOWER URINRY TRACT SYMP (12) Diabetes Assessment/Plan: -BGM ACHS -Levemir -ISS Code(s): E11.9 - TYPE 2 DIABETES MELLITUS WITHOUT COMPLICATIONS Qualifiers: Diabetes mellitus type: other specified (including TAN) Diabetes mellitus scalehouse attendant insulin use: unspecified mcfp insulin use status Diabetes mellitus complication status: with other specified complication Qualified Code (s): E13.69 - Other specified diabetes mellitus with other specified complication (13) UTI (urinary tract infection) Assessment/Plan: -ID on board -leukocytosis -afebrile -UA shows 3+ leuks, 3+ protein, 2+ bilirubin -UC neg Code(s): N39.0 - URINARY TRACT INFECTION, SITE NOT SPECIFIED (14) BEKA (acute kidney injury) Assessment/Plan: -Renal on board -BUN/Cr 2118.2/0.8 -monitor real function Code(s): N17.9 - ACUTE KIDNEY FAILURE, UNSPECIFIED
[2019-10-06] MEDS: ALBUTEROL SO4 0.042% IH SOL 1.25 MG/3 ML VIAL.NEB NEB PRN ×2 (09:33→15:01)
[2019-10-06] MEDS: POLYETHYLENE GLYCOL 3350 119 GM BTL PO SCH ×2 (09:38→22:08)
[2019-10-06] MEDS: URSODIOL 300 MG CAPSULE PO SCH ×2 (09:38→22:10)
[2019-10-06] MEDS: SENNOSIDES/DOCUSATE COMBO (SENNA PLUS) TABLET (UD) PO SCH ×2 (09:38→22:10)
[2019-10-06] MEDS: PANTOPRAZOLE 40 MG TABLET (FP) PO SCH (09:38)
[2019-10-06] MEDS: FUROSEMIDE 20 MG TABLET (FP) PO SCH (09:38)
[2019-10-06] MEDS: TAMSULOSIN HCL 0.4 MG CAP PO SCH (09:38)
[2019-10-06] MEDS: APIXABAN 5 MG TABLET PO SCH ×2 (09:38→22:09)
[2019-10-06] MEDS: COLCHICINE 0.6 MG CAP PO SCH (09:38)
[2019-10-06] MEDS: MULTIVITAMINS (DAILY MVI) TABLET (FP) PO SCH (09:38)
[2019-10-06] MEDS: predniSONE 20 MG TABLET (UD) PO SCH (09:38)
[2019-10-06] MEDS: NYSTATIN/TRIAMCINOLONE TOPICAL CREAM 15 GM TUBE TP SCH ×2 (09:39→22:07)
[2019-10-06] MEDS: LIDOCAINE 5% TOPICAL PATCH TP SCH (09:46)
--- NOTE | 2019-10-06 10:11 | PN ---
Progress Note (short form) - Note Progress Note: PULMONARY BiPAP with improvement Offers no complaints VSS/AFEBRILE Gen: NAD on BiPAP Heart: RRR Lung: decreased breath sounds at the bases Abd: soft, nontender Ext: no edema Chart reviewed A/P Acute Hypoxic and Hypercapneic Respiratory Failure Acute Pulmonary Edema Acute on Chronic Diastolic Heart Failure Atrial Fibrillation with RVR r/o Pneumonia new bilateral patchy infiltrates UTI Acute Kidney Injury COPD Paget's Disease DM Anemia - rate control per cardiology - continue lasix - monitor urine output, creatinine - continue anticoagulation - BiPAP as needed to assist in work of breathing - O2 to keep SpO2 >90% - completed antibiotics - taper off prednisone - inhaled bronchodilators Fabio LEWIS MD
--- NOTE | 2019-10-06 12:35 | PN ---
Progress Note, Physician Chief Complaint: The patient seen and examind in his bedd. Comfortable. Had two loose BBM today Being fed, and tolerates food - Current Medication List Current Medications: Active Medications Acetaminophen (Tylenol -) 650 mg PO Q6H PRN PRN Reason: FEVER OR PAIN LEVEL 1 - 3 Albuterol Sulfate (Ventolin 0.042trength) -) 1 amp NEB Q6H PRN PRN Reason: SHORT OF BREATH/WHEEZING Last Admin: 10/06/19 09:33 Dose: 1 amp Apixaban (Eliquis -) 5 mg PO BID [facility] Last Admin: 10/06/19 09:38 Dose: 5 mg Atorvastatin Calcium (Lipitor -) 40 mg PO HS [facility] Last Admin: 10/05/19 22:56 Dose: 40 mg Benzocaine/Menthol (Cepacol Lozenge -) 1 each MM Q2H PRN PRN Reason: SORE THROAT Colchicine (Colcrys) 0.6 mg PO DAILY [facility] Last Admin: 10/06/19 09:38 Dose: 0.6 mg Diltiazem HCl (Cardizem Cd -) 180 mg PO DAILY [facility] Last Admin: 10/06/19 09:38 Dose: 180 mg Duloxetine HCl (Cymbalta -) 40 mg PO DAILY [facility] Last Admin: 10/05/19 11:30 Dose: 40 mg Furosemide (Lasix -) 20 mg PO DAILY [facility] Last Admin: 10/06/19 09:38 Dose: 20 mg Gabapentin (Neurontin -) 300 mg PO TID [facility] Last Admin: 10/06/19 06:36 Dose: 300 mg Insulin Aspart (Novolog Vial Sliding Scale -) 1 vial SQ ACHS [facility]; Protocol Last Admin: 10/06/19 06:36 Dose: Not Given Insulin Detemir (Levemir Vial) 10 units SQ 0700 [facility] Last Admin: 10/06/19 06:36 Dose: 10 units Lidocaine (Lidoderm Patch -) 1 patch TP DAILY [facility] Last Admin: 10/06/19 09:46 Dose: 1 patch Melatonin (Melatonin) 5 mg PO HS PRN PRN Reason: INSOMNIA Metoprolol Succinate (Toprol Xl -) 50 mg PO DAILY [facility] Last Admin: 10/06/19 09:38 Dose: 50 mg Miscellaneous (Lidoderm Patch Removal) 1 each MC DAILY@2200 [facility] Last Admin: 10/05/19 22:56 Dose: 1 each Multivitamins/Minerals/Vitamin C (Tab-A-Vit -) 1 tab PO DAILY [facility] Last Admin: 10/06/19 09:38 Dose: 1 tab Nystatin/Triamcinolone Acetonide (Mycolog Ii Cream -) 1 applic TP BID [facility] Last Admin: 10/06/19 09:39 Dose: 1 applic Pantoprazole Sodium (Protonix -) 40 mg PO DAILY [facility] Last Admin: 10/06/19 09:38 Dose: 40 mg Polyethylene Glycol (Miralax (For Daily Use) -) 17 gm PO BID [facility] Last Admin: 10/06/19 09:38 Dose: 17 grams Prednisone (Deltasone -) 20 mg PO DAILY [facility] Last Admin: 10/06/19 09:38 Dose: 20 mg Senna/Docusate Sodium (Pericolace -) 1 tablet PO BID [facility] Last Admin: 10/06/19 09:38 Dose: 1 tablet Tamsulosin HCl (Flomax -) 0.4 mg PO DAILY@0830 [facility] Last Admin: 10/06/19 09:38 Dose: 0.4 mg Trazodone HCl (Desyrel -) 50 mg PO HS [facility] Last Admin: 10/05/19 22:56 Dose: 50 mg Ursodiol (Actigal -) 300 mg PO BID [facility] Last Admin: 10/06/19 09:38 Dose: 300 mg Vancomycin HCl (Vancomycin Oral Solution) 125 mg PO Q6HPO [facility] Last Admin: 10/06/19 06:35 Dose: 125 mg - Objective Vital Signs: Vital Signs Temperature 98.2 F 10/05/19 23:00 Pulse Rate 98 H 10/05/19 23:00 Respiratory Rate 24 H 10/05/19 23:00 Blood Pressure 112/65 10/05/19 23:00 O2 Sat by Pulse Oximetry (%) 97 10/06/19 00:40 Constitutional: Yes: Anxious HENT: Yes: Normocephalic Neck: Yes: Trachea Midline Cardiovascular: Yes: Regular Rate and Rhythm, Tachycardia Respiratory: Yes: CTA Bilaterally, Diminished Gastrointestinal: Yes: Normal Bowel Sounds, Soft Genitourinary: No: Bladder Distention, CVA Tenderness - Left, CVA Tenderness - Right Neurological: Yes: Alert, Confusion Labs: CBC, BMP 10/03/19 08:17 10/06/19 07:35 INR, PTT INR 3.09 (0.83-1.09) H 09/20/19 22:24 Assessment/Plan 78 year old gentleman with history of CHF with reduced LVEF, Ch. Afib, Anemia and DM2 with recent admission for gross hematuria and BEKA now presents with diffuse body pain and joint pain with BEKA. Renal functions normal. No overt signs of CHF. Minimal hypokalemia...possibly from loss from GI tract. Serum Mg improved. Will give another dose oF KPhos. Amarilys Hung MD
[2019-10-06] MEDS ORDERED: POTASSIUM PHOSPHATE 15 MM in DEXTROSE 5%-WATER - 250 ML IVPB ONE (12:36)
[2019-10-06] MEDS ORDERED: PT OWN MED DRAWER 7, Y5N ONE (13:00)
[2019-10-06] MEDS: DULoxetine HCL 20 MG CAPSULE.DR PO SCH (13:43)
--- NOTE | 2019-10-06 14:39 | PN ---
Progress Note (short form) - Note Progress Note: Patient seen and examined on bipap Last Vital Signs Temp Pulse Resp BP Pulse Ox 98.2 F 98 H 24 H 112/65 97 10/05/19 23:00 10/05/19 23:00 10/05/19 23:00 10/05/19 23:00 10/06/19 00:40 Cor: RSR, No murmurs, No gallops Lungs: Clear to P&A Abd: Soft, Normal bowel sounds, No organomegaly Ext: motor strength 4/5 labs/meds reviewed Active Medications Generic Name Dose Route Start Last Admin Trade Name Freq PRN Reason Stop Dose Admin Acetaminophen 650 mg 10/01/19 00:11 Tylenol - PO Q6H PRN FEVER OR PAIN LEVEL 1 - 3 Albuterol Sulfate 1 amp 10/05/19 18:59 10/06/19 15:01 Ventolin 0.042trength) - NEB 1 amp Q6H PRN Administration SHORT OF BREATH/WHEEZING Apixaban 5 mg 10/01/19 10:00 10/06/19 09:38 Eliquis - PO 5 mg BID [facility] Administration Atorvastatin Calcium 40 mg 10/01/19 22:00 10/05/19 22:56 Lipitor - PO 40 mg HS [facility] Administration Benzocaine/Menthol 1 each 10/01/19 00:11 Cepacol Lozenge - MM Q2H PRN SORE THROAT Colchicine 0.6 mg 10/01/19 10:00 10/06/19 09:38 Colcrys PO 0.6 mg DAILY [facility] Administration Diltiazem HCl 180 mg 09/29/19 10:00 10/06/19 09:38 Cardizem Cd - PO 180 mg DAILY [facility] Administration Duloxetine HCl 40 mg 10/01/19 10:00 10/06/19 13:43 Cymbalta - PO 40 mg DAILY [facility] Administration Furosemide 20 mg 10/05/19 10:00 10/06/19 09:38 Lasix - PO 20 mg DAILY [facility] Administration Gabapentin 300 mg 10/01/19 06:00 10/06/19 13:47 Neurontin - PO 300 mg TID [facility] Administration Potassium Phosphate 15 mm/ 255 mls @ 51 mls/hr 10/06/19 12:36 10/06/19 13:44 Dextrose IVPB 10/06/19 17:35 51 mls/hr ONCE ONE Administration Insulin Aspart 1 vial 10/01/19 07:00 10/06/19 13:51 Novolog Vial Sliding Scale - SQ 4 units ACHS [facility] Administration Protocol Insulin Detemir 10 units 10/01/19 07:00 10/06/19 06:36 Levemir Vial SQ 10 units 0700 [facility] Administration Lidocaine 1 patch 10/01/19 10:00 10/06/19 09:46 Lidoderm Patch - TP 1 patch DAILY [facility] Administration Melatonin 5 mg 10/01/19 00:11 Melatonin PO HS PRN INSOMNIA Metoprolol Succinate 50 mg 10/01/19 10:00 10/06/19 09:38 Toprol Xl - PO 50 mg DAILY [facility] Administration Miscellaneous 1 each 10/01/19 22:00 10/05/19 22:56 Lidoderm Patch Removal MC 1 each DAILY@2200 [facility] Administration Multivitamins/Minerals/Vitamin C 1 tab 10/01/19 10:00 10/06/19 09:38 Tab-A-Vit - PO 1 tab DAILY [facility] Administration Nystatin/Triamcinolone Acetonide 1 applic 10/03/19 11:30 10/06/19 09:39 Mycolog Ii Cream - TP 1 applic BID [facility] Administration Pantoprazole Sodium 40 mg 10/05/19 10:00 10/06/19 09:38 Protonix - PO 40 mg DAILY [facility] Administration Polyethylene Glycol 17 gm 10/01/19 10:00 10/06/19 09:38 Miralax (For Daily Use) - PO 17 grams BID [facility] Administration Prednisone 20 mg 10/03/19 10:00 10/06/19 09:38 Deltasone - PO 20 mg DAILY [facility] Administration Senna/Docusate Sodium 1 tablet 10/01/19 10:00 10/06/19 09:38 Pericolace - PO 1 tablet BID [facility] Administration Tamsulosin HCl 0.4 mg 10/01/19 08:30 10/06/19 09:38 Flomax - PO 0.4 mg DAILY@0830 [facility] Administration Trazodone HCl 50 mg 10/01/19 22:00 10/05/19 22:56 Desyrel - PO 50 mg HS [facility] Administration Ursodiol 300 mg 10/01/19 10:00 10/06/19 09:38 Actigal - PO 300 mg BID [facility] Administration Vancomycin HCl 125 mg 10/04/19 18:00 10/06/19 13:43 Vancomycin Oral Solution PO 125 mg Q6HPO [facility] Administration a/p 78M from SNF with COPD, HTN, HLD, CAD, DM, CHF (pEF), Afib (on Eliquis), CKD, polyarticular arthritis--gout, ?Pagets disease hx prostate ca admitted with SOB.Being treated for CHF exacerbation/PNA. Also being evaluated for acute cholecystitis, HIDA scan pending. Hematology is consulted for anemia which appears to be chronic since at least 2017 with worsening this year and macrocytosis. Has mild neutrophilic leukocytosis and normal plt count. Ferritin >2000 (506 one month prior), iron sat 48% (12% one month prior). B12/folate normal. SPEP/FLC normal. BEV with faint IgG kappa. IgG normal. Suspect anemia of inflammation + CKD. h/o prostate cancer several yrs. ago per s/p brachytherapy h/o lupron was treated by dr. sky hernandez bone scan s/o pagets in sacrum/iliacs s/o pagets dating back to 2011 Gout on colchicine On prednisone on eliquis
[2019-10-06] MEDS: LIDOCAINE PATCH REMOVAL MC SCH (22:08)
[2019-10-06] MEDS: ATORVASTATIN CA 40 MG TABLET (FP) PO SCH (22:09)
[2019-10-06] MEDS: traZODone HCL 50 MG TABLET (FP) PO SCH (22:09)
[2019-10-06] MEDS: MELATONIN 5 MG TABLETS PO PRN (22:21)
[2019-10-07] MEDS: VANCOMYCIN 250 MG/5 ML ORAL SOLUTION PO SCH ×4 (05:27→23:15)
[2019-10-07] MEDS: GABAPENTIN 300 MG CAPSULE (FP) PO SCH ×3 (05:27→21:45)
[2019-10-07] MEDS: INSULIN (LEVEMIR) 100 UNITS/ML UNITS SQ SCH (06:09)
[2019-10-07] MEDS: INSULIN SLIDING SCALE (NOVOLOG) 1 VIAL SQ SCH ×4 (06:09→22:03)
[2019-10-07] MEDS: ALBUTEROL SO4 0.042% IH SOL 1.25 MG/3 ML VIAL.NEB NEB PRN ×3 (07:50→20:57)
[2019-10-07] MEDS ORDERED: PT OWN MED DRAWER 7, Y5N ONE (10:29)
[2019-10-07] MEDS: SENNOSIDES/DOCUSATE COMBO (SENNA PLUS) TABLET (UD) PO SCH ×2 (10:42→21:45)
[2019-10-07] MEDS: COLCHICINE 0.6 MG CAP PO SCH (10:42)
[2019-10-07] MEDS: URSODIOL 300 MG CAPSULE PO SCH ×2 (10:42→21:45)
[2019-10-07] MEDS: predniSONE 20 MG TABLET (UD) PO SCH (10:43)
[2019-10-07] MEDS: FUROSEMIDE 20 MG TABLET (FP) PO SCH (10:43)
[2019-10-07] MEDS: PANTOPRAZOLE 40 MG TABLET (FP) PO SCH (10:43)
[2019-10-07] MEDS: APIXABAN 5 MG TABLET PO SCH ×2 (10:43→21:45)
[2019-10-07] MEDS: DULoxetine HCL 20 MG CAPSULE.DR PO SCH (10:43)
[2019-10-07] MEDS: TAMSULOSIN HCL 0.4 MG CAP PO SCH (10:43)
[2019-10-07] MEDS: POLYETHYLENE GLYCOL 3350 119 GM BTL PO SCH ×2 (10:44→21:46)
[2019-10-07] MEDS: MULTIVITAMINS (DAILY MVI) TABLET (FP) PO SCH (10:44)
[2019-10-07] MEDS: NYSTATIN/TRIAMCINOLONE TOPICAL CREAM 15 GM TUBE TP SCH ×2 (10:44→21:46)
[2019-10-07] MEDS: LIDOCAINE 5% TOPICAL PATCH TP SCH (10:44)
[2019-10-07 11:39] LABS: ALBUMIN 2.6 g/dl (3.4-5.0); BILIRUBIN,TOTAL 0.7 mg/dL (0.2-1); BLOOD UREA NITROGEN 15.9 mg/dL (7-18); CALCIUM 8.4 mg/dL (8.5-10.1); CREATININE 0.8 mg/dL (0.55-1.3); MAGNESIUM 1.6 mg/dL (1.8-2.4); PHOSPHOROUS 2.1 mg/dL (2.5-4.9); POTASSIUM 3.4 mmol/L (3.5-5.1); TOT PROT 4.9 g/dl (6.4-8.2)
[2019-10-07] MEDS ORDERED: MAGNESIUM SULF 50% (8.12 MEQ/2 ML-1 GM VIAL) IVPB ONE (11:45)
--- NOTE | 2019-10-07 12:07 | PN ---
Progress Note (short form) - Note Progress Note: PULMONARY BiPAP with improvement Lacks energy Feels discomfort in suprapubic area which he feels is causing him to be SOB VSS/AFEBRILE Gen: NAD on BiPAP Heart: RRR Lung: decreased breath sounds at the bases Abd: soft, nontender Ext: no edema Chart reviewed A/P Acute Hypoxic and Hypercapneic Respiratory Failure Acute Pulmonary Edema Acute on Chronic Diastolic Heart Failure Atrial Fibrillation with RVR r/o Pneumonia new bilateral patchy infiltrates UTI Acute Kidney Injury COPD Paget's Disease DM Anemia - rate control per cardiology - continue lasix - monitor urine output, creatinine - continue anticoagulation - BiPAP as needed to assist in work of breathing - O2 to keep SpO2 >90% - completed antibiotics - taper off prednisone - inhaled bronchodilators Fabio LEWIS MD
--- NOTE | 2019-10-07 12:08 | PN ---
Progress Note, Physician Chief Complaint: Pneumonia Afib History of Present Illness: Previous notes and events reviewed awake and alert breathing on NC NAD denies chest pain or palpitations sts his breathing is not getting better sts having one episode of diarrhea this AM - Current Medication List Current Medications: Active Medications Acetaminophen (Tylenol -) 650 mg PO Q6H PRN PRN Reason: FEVER OR PAIN LEVEL 1 - 3 Albuterol Sulfate (Ventolin 0.042trength) -) 1 amp NEB Q6H PRN PRN Reason: SHORT OF BREATH/WHEEZING Last Admin: 10/07/19 07:50 Dose: 1 amp Apixaban (Eliquis -) 5 mg PO BID [facility] Last Admin: 10/07/19 10:43 Dose: 5 mg Atorvastatin Calcium (Lipitor -) 40 mg PO HS [facility] Last Admin: 10/06/19 22:09 Dose: 40 mg Benzocaine/Menthol (Cepacol Lozenge -) 1 each MM Q2H PRN PRN Reason: SORE THROAT Colchicine (Colcrys) 0.6 mg PO DAILY [facility] Last Admin: 10/07/19 10:42 Dose: 0.6 mg Diltiazem HCl (Cardizem Cd -) 180 mg PO DAILY [facility] Last Admin: 10/07/19 10:42 Dose: 180 mg Duloxetine HCl (Cymbalta -) 40 mg PO DAILY [facility] Last Admin: 10/07/19 10:43 Dose: 40 mg Furosemide (Lasix -) 20 mg PO DAILY [facility] Last Admin: 10/07/19 10:43 Dose: 20 mg Gabapentin (Neurontin -) 300 mg PO TID [facility] Last Admin: 10/07/19 05:27 Dose: 300 mg Potassium Phosphate 30 mm/ (Sodium Chloride) 510 mls @ 62.5 mls/hr IVPB ONCE ONE Stop: 10/07/19 21:09 Insulin Aspart (Novolog Vial Sliding Scale -) 1 vial SQ ACHS [facility]; Protocol Last Admin: 10/07/19 06:09 Dose: 4 units Insulin Detemir (Levemir Vial) 10 units SQ 0700 [facility] Last Admin: 10/07/19 06:09 Dose: 10 units Lidocaine (Lidoderm Patch -) 1 patch TP DAILY [facility] Last Admin: 10/07/19 10:44 Dose: 1 patch Melatonin (Melatonin) 5 mg PO HS PRN PRN Reason: INSOMNIA Last Admin: 10/06/19 22:21 Dose: 5 mg Metoprolol Succinate (Toprol Xl -) 50 mg PO DAILY [facility] Last Admin: 10/07/19 10:43 Dose: 50 mg Miscellaneous (Lidoderm Patch Removal) 1 each MC DAILY@2200 [facility] Last Admin: 10/06/19 22:08 Dose: 1 each Multivitamins/Minerals/Vitamin C (Tab-A-Vit -) 1 tab PO DAILY [facility] Last Admin: 10/07/19 10:44 Dose: 1 tab Nystatin/Triamcinolone Acetonide (Mycolog Ii Cream -) 1 applic TP BID [facility] Last Admin: 10/07/19 10:44 Dose: 1 applic Pantoprazole Sodium (Protonix -) 40 mg PO DAILY [facility] Last Admin: 10/07/19 10:43 Dose: 40 mg Polyethylene Glycol (Miralax (For Daily Use) -) 17 gm PO BID [facility] Last Admin: 10/07/19 10:44 Dose: Not Given Prednisone (Deltasone -) 20 mg PO DAILY [facility] Last Admin: 10/07/19 10:43 Dose: 20 mg Senna/Docusate Sodium (Pericolace -) 1 tablet PO BID [facility] Last Admin: 10/07/19 10:42 Dose: 1 tablet Tamsulosin HCl (Flomax -) 0.4 mg PO DAILY@0830 [facility] Last Admin: 10/07/19 10:43 Dose: 0.4 mg Trazodone HCl (Desyrel -) 50 mg PO HS [facility] Last Admin: 10/06/19 22:09 Dose: 50 mg Ursodiol (Actigal -) 300 mg PO BID [facility] Last Admin: 10/07/19 10:42 Dose: 300 mg Vancomycin HCl (Vancomycin Oral Solution) 125 mg PO Q6HPO [facility] Last Admin: 10/07/19 05:27 Dose: 125 mg - Objective Vital Signs: Vital Signs Temperature 98 F 10/07/19 10:00 Pulse Rate 89 10/07/19 10:00 Respiratory Rate 18 10/07/19 10:00 Blood Pressure 128/46 L 10/07/19 10:00 O2 Sat by Pulse Oximetry (%) 100 10/07/19 08:49 Constitutional: Yes: No Distress, Calm Eyes: Yes: Conjunctiva Clear HENT: Yes: Atraumatic Cardiovascular: Yes: Regular Rate and Rhythm Respiratory: Yes: Regular, Diminished, On Nasal O2 Gastrointestinal: Yes: Normal Bowel Sounds, Soft Genitourinary: Yes: Incontinence Musculoskeletal: Yes: Muscle Weakness Extremities: Yes: WNL Neurological: Yes: Alert, Oriented Psychiatric: Yes: Alert, Oriented Labs: CBC, BMP 10/03/19 08:17 10/07/19 10:45 INR, PTT INR 3.09 (0.83-1.09) H 09/20/19 22:24 Microbiology 10/03/19 14:00 Gram Stain - Final Stool Clostridioides difficile Antigen - Final Clostridioides difficile Toxin Assay - Final Salmonella/Shigella Culture - Final NO GROWTH OF SALMONELLA OR SHIGELLA SPECIES OBTAINED Campylobacter Culture - Final NO GROWTH OF CAMPYLOBACTER SPECIES OBTAINED Yersinia Culture - Final NO GROWTH OF YERSINIA SPECIES OBTAINED Vibrio Culture - Final NO GROWTH OF VIBRIO SPECIES OBTAINED Escherichia coli 0157 Culture - Final NO GROWTH OF E COLI 0157 OBTAINED Problem List - Problems (1) Tachycardia Assessment/Plan: -Cardiology on board -rate controlled with Metoprolol and Cardizem -tele monitoring discontinued Code(s): R00.0 - TACHYCARDIA, UNSPECIFIED (2) Acute on chronic respiratory failure with hypoxia and hypercapnia Assessment/Plan: -Pulm on board -Bronchodilators -O2 via C -Bipap HS -Prednisone -CHest CT shows atelectasis/infiltration at both bases -Keep SpO2 >90% -repeat Chest CT scan shows diffuse bilateral patchy infiltrates suspicious for pneumonia or congestion that have developed since 09/21/2019, persistent bibasilar atelectasis, left greater than right, and small bilateral pleural effusion Code(s): J96.21 - ACUTE AND CHRONIC RESPIRATORY FAILURE WITH HYPOXIA; J96.22 - ACUTE AND CHRONIC RESPIRATORY FAILURE WITH HYPERCAPNIA (3) Leukocytosis Assessment/Plan: -WBC 18.1 -afebrile -BC and UC neg -MRSA screen neg -Legionella neg -Vancomycin and Zosyn discontinued, monitor off -ID on board -Tylenol for temp >100F -repeat Chest CT scan shows diffuse bilateral patchy infiltrates suspicious for pneumonia or congestion that have developed since 09/21/2019, persistent bibasilar atelectasis, left greater than right, and small bilateral pleural effusion -reconsult ID Code(s): D72.829 - ELEVATED WHITE BLOOD CELL COUNT, UNSPECIFIED Qualifiers: Leukocytosis type: unspecified Qualified Code(s): D72.829 - Elevated white blood cell count, unspecified (4) Paget's bone disease Assessment/Plan: -Hematology on board Code(s): M88.9 - OSTEITIS DEFORMANS OF UNSPECIFIED BONE (5) Pneumonia Assessment/Plan: -WBC 18.1 -afebrile -BC neg -MRSA screen neg -Urine Legionella neg -Vancomycin and Zosyn, completed course monitor off -ID on board -Tylenol for temp >100F -Pulm on board -Bronchodilators -O2 via NC -Bipap HS and PRN -Prednisone -CHest CT shows atelectasis/infiltration at both bases -Keep SpO2 >90% -repeat Chest CT scan shows diffuse bilateral patchy infiltrates suspicious for pneumonia or congestion that have developed since 09/21/2019, persistent bibasilar atelectasis, left greater than right, and small bilateral pleural effusion -reconsult ID Code(s): J18.9 - PNEUMONIA, UNSPECIFIED ORGANISM Qualifiers: Pneumonia type: due to unspecified organism Laterality: left Lung location: lower lobe of lung Qualified Code(s): J18.9 - Pneumonia, unspecified organism (6) Polyarthralgia Assessment/Plan: -Rheumatology on board -ESR >140, CRP 41.6, Uric Acid wnl -pain control -s/p aspiration L knee~fluid positive for monosodium urate crystals -Prednisone -Colchicine Code(s): M25.50 - PAIN IN UNSPECIFIED JOINT (7) Anemia Assessment/Plan: -Anemia panel reviewed -Hg 9.0 -monitor H/H -transfuse for Hg <7.0 to avoid fluid overload Code(s): D64.9 - ANEMIA, UNSPECIFIED (8) Atrial fibrillation Assessment/Plan: -Eliquis BID -rate controlled with Metoprolol and Cardizem Code(s): I48.91 - UNSPECIFIED ATRIAL FIBRILLATION (9) HLD (hyperlipidemia) Assessment/Plan: -Atorvastatin Code(s): E78.5 - HYPERLIPIDEMIA, UNSPECIFIED Qualifiers: Hyperlipidemia type: other hyperlipidemia Qualified Code(s): E78.49 - Other hyperlipidemia; E78.4 - Other hyperlipidemia (10) Hypertension Assessment/Plan: -Amlodipine -low Na diet Code(s): I10 - ESSENTIAL (PRIMARY) HYPERTENSION Qualifiers: Hypertension type: unspecified Qualified Code(s): I10 - Essential (primary ) hypertension (11) BPH (benign prostatic hyperplasia) Assessment/Plan: -Tamsulosin Code(s): N40.0 - BENIGN PROSTATIC HYPERPLASIA WITHOUT LOWER URINRY TRACT SYMP (12) Diabetes Assessment/Plan: -BGM ACHS -Levemir -ISS Code(s): E11.9 - TYPE 2 DIABETES MELLITUS WITHOUT COMPLICATIONS Qualifiers: Diabetes mellitus type: other specified (including TAN) Diabetes mellitus 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 insulin use: unspecified correction insulin use status Diabetes mellitus complication status: with other specified complication Qualified Code (s): E13.69 - Other specified diabetes mellitus with other specified complication (13) UTI (urinary tract infection) Assessment/Plan: -ID on board -leukocytosis -afebrile -UA shows 3+ leuks, 3+ protein, 2+ bilirubin -UC neg Code(s): N39.0 - URINARY TRACT INFECTION, SITE NOT SPECIFIED (14) BEKA (acute kidney injury) Assessment/Plan: -Renal on board -BUN/Cr 15.9/0.8 -monitor real function Code(s): N17.9 - ACUTE KIDNEY FAILURE, UNSPECIFIED Assessment/Plan see problem list can begin d/c planning to SNF appeal discharge, pending results
[2019-10-07] MEDS ORDERED: POTASSIUM PHOSPHATE 30 MM in SODIUM CHLORIDE 500 ML IVPB ONE (13:00)
[2019-10-07] MEDS ORDERED: FUROSEMIDE 20 MG TABLET (FP) PO ONE (13:29)
--- NOTE | 2019-10-07 13:31 | PN ---
Progress Note (short form) - Note Progress Note: Renal follow up for BEKA Pt seen and examined at the bedside awake and alert complains of shortness of breath and orthopnea Vital Signs Temperature 98 F 10/07/19 10:00 Pulse Rate 89 10/07/19 10:00 Respiratory Rate 18 10/07/19 10:00 Blood Pressure 128/46 L 10/07/19 10:00 O2 Sat by Pulse Oximetry (%) 100 10/07/19 12:20 Intake & Output 10/04/19 10/05/19 10/06/19 10/07/19 23:59 23:59 23:59 23:59 Intake Total 720 560 400 400 Balance 720 560 400 400 NAD RRR, no M/R Dec BS at lung bases soft, obese, NT/ND trace edema in LE CBC, BMP 10/03/19 08:17 10/07/19 10:45 Current Medications Acetaminophen (Tylenol -) 650 mg PO Q6H PRN PRN Reason: FEVER OR PAIN LEVEL 1 - 3 Albuterol Sulfate (Ventolin 0.042trength) -) 1 amp NEB Q6H PRN PRN Reason: SHORT OF BREATH/WHEEZING Last Admin: 10/07/19 12:21 Dose: 1 amp Apixaban (Eliquis -) 5 mg PO BID [facility] Last Admin: 10/07/19 10:43 Dose: 5 mg Atorvastatin Calcium (Lipitor -) 40 mg PO HS [facility] Last Admin: 10/06/19 22:09 Dose: 40 mg Benzocaine/Menthol (Cepacol Lozenge -) 1 each MM Q2H PRN PRN Reason: SORE THROAT Colchicine (Colcrys) 0.6 mg PO DAILY [facility] Last Admin: 10/07/19 10:42 Dose: 0.6 mg Diltiazem HCl (Cardizem Cd -) 180 mg PO DAILY [facility] Last Admin: 10/07/19 10:42 Dose: 180 mg Duloxetine HCl (Cymbalta -) 40 mg PO DAILY [facility] Last Admin: 10/07/19 10:43 Dose: 40 mg Furosemide (Lasix -) 20 mg PO DAILY [facility] Last Admin: 10/07/19 10:43 Dose: 20 mg Gabapentin (Neurontin -) 300 mg PO TID [facility] Last Admin: 10/07/19 05:27 Dose: 300 mg Potassium Phosphate 30 mm/ (Sodium Chloride) 510 mls @ 62.5 mls/hr IVPB ONCE ONE Stop: 10/07/19 21:09 Insulin Aspart (Novolog Vial Sliding Scale -) 1 vial SQ ACHS [facility]; Protocol Last Admin: 10/07/19 12:53 Dose: Not Given Insulin Detemir (Levemir Vial) 10 units SQ 0700 [facility] Last Admin: 10/07/19 06:09 Dose: 10 units Lidocaine (Lidoderm Patch -) 1 patch TP DAILY [facility] Last Admin: 10/07/19 10:44 Dose: 1 patch Melatonin (Melatonin) 5 mg PO HS PRN PRN Reason: INSOMNIA Last Admin: 10/06/19 22:21 Dose: 5 mg Metoprolol Succinate (Toprol Xl -) 50 mg PO DAILY [facility] Last Admin: 10/07/19 10:43 Dose: 50 mg Miscellaneous (Lidoderm Patch Removal) 1 each MC DAILY@2200 [facility] Last Admin: 10/06/19 22:08 Dose: 1 each Multivitamins/Minerals/Vitamin C (Tab-A-Vit -) 1 tab PO DAILY [facility] Last Admin: 10/07/19 10:44 Dose: 1 tab Nystatin/Triamcinolone Acetonide (Mycolog Ii Cream -) 1 applic TP BID [facility] Last Admin: 10/07/19 10:44 Dose: 1 applic Pantoprazole Sodium (Protonix -) 40 mg PO DAILY [facility] Last Admin: 10/07/19 10:43 Dose: 40 mg Polyethylene Glycol (Miralax (For Daily Use) -) 17 gm PO BID [facility] Last Admin: 10/07/19 10:44 Dose: Not Given Prednisone (Deltasone -) 15 mg PO DAILY [facility] Senna/Docusate Sodium (Pericolace -) 1 tablet PO BID [facility] Last Admin: 10/07/19 10:42 Dose: 1 tablet Tamsulosin HCl (Flomax -) 0.4 mg PO DAILY@0830 [facility] Last Admin: 10/07/19 10:43 Dose: 0.4 mg Trazodone HCl (Desyrel -) 50 mg PO HS [facility] Last Admin: 10/06/19 22:09 Dose: 50 mg Ursodiol (Actigal -) 300 mg PO BID [facility] Last Admin: 10/07/19 10:42 Dose: 300 mg Vancomycin HCl (Vancomycin Oral Solution) 125 mg PO Q6HPO [facility] Last Admin: 10/07/19 05:27 Dose: 125 mg 78 year old gentleman with history of CHF with reduced LVEF, Afib, Anemia and DM with recent admission for gross hematuria and BEKA now presents with diffuse body pain and joint pain with BEKA. 1. Acute kidney injury now resolved 2. Joint pains 3. CHF with reduced LVEF 4. Leukocytosis 5. Anemia 6. Hypophosphatemia 7. Hypokalemia 8. Hypomagnesemia 9. C diff colitis Renal function stable will supplament potassium, phosphate and Mg Increase Lasix to 40mg PO daily Check CXR in the AM BIPAP as needed Trend renal function and electrolytes Thank you Saul Diaz DO
[2019-10-07] MEDS ORDERED: ALBUTEROL SO4 0.083% IH SOL 2.5 MG/3 ML VIAL.NEB. NEB ONE (15:10)
[2019-10-07] MEDS: ATORVASTATIN CA 40 MG TABLET (FP) PO SCH (21:45)
[2019-10-07] MEDS: traZODone HCL 50 MG TABLET (FP) PO SCH (21:45)
[2019-10-07] MEDS: LIDOCAINE PATCH REMOVAL MC SCH (21:46)
[2019-10-08] MEDS: VANCOMYCIN 250 MG/5 ML ORAL SOLUTION PO SCH ×3 (05:32→17:15)
[2019-10-08] MEDS: GABAPENTIN 300 MG CAPSULE (FP) PO SCH ×3 (05:32→22:51)
[2019-10-08] MEDS: INSULIN SLIDING SCALE (NOVOLOG) 1 VIAL SQ SCH ×4 (06:21→23:00)
[2019-10-08] MEDS: INSULIN (LEVEMIR) 100 UNITS/ML UNITS SQ SCH (06:21)
[2019-10-08 08:51] LABS: HEMATOCRIT 27.7 % (35.4-49); HEMOGLOBIN 8.7 GM/dL (11.7-16.9); MCH 30.7 pg (25.7-33.7); MCHC 31.4 g/dl (32.0-35.9); MEAN CELL VOLUME 97.9 fl (80-96); MEAN PLT VOLUME 8.3 fl (7.5-11.1); PLATELET COUNT 151 K/MM3 (134-434); RBC 2.83 M/mm3 (4.00-5.60); RDW 20.5 % (11.9-15.9); WHITE BLOOD COUNT 20.1 K/mm3 (4.0-10.0)
[2019-10-08 09:19] LABS: ALBUMIN 2.5 g/dl (3.4-5.0); BILIRUBIN,TOTAL 0.8 mg/dL (0.2-1); BLOOD UREA NITROGEN 14.4 mg/dL (7-18); CALCIUM 8.7 mg/dL (8.5-10.1); CREATININE 0.7 mg/dL (0.55-1.3); MAGNESIUM 1.9 mg/dL (1.8-2.4); PHOSPHOROUS 2.8 mg/dL (2.5-4.9); POTASSIUM 3.6 mmol/L (3.5-5.1); TOT PROT 5.1 g/dl (6.4-8.2)
--- NOTE | 2019-10-08 09:30 | PN ---
Progress Note, Physician History of Present Illness: c/o sob 02 sat 100% - Current Medication List Current Medications: Active Medications Acetaminophen (Tylenol -) 650 mg PO Q6H PRN PRN Reason: FEVER OR PAIN LEVEL 1 - 3 Albuterol Sulfate (Ventolin 0.042trength) -) 1 amp NEB Q6H PRN PRN Reason: SHORT OF BREATH/WHEEZING Last Admin: 10/07/19 20:57 Dose: 1 amp Apixaban (Eliquis -) 5 mg PO BID [facility] Last Admin: 10/07/19 21:45 Dose: 5 mg Atorvastatin Calcium (Lipitor -) 40 mg PO HS [facility] Last Admin: 10/07/19 21:45 Dose: 40 mg Benzocaine/Menthol (Cepacol Lozenge -) 1 each MM Q2H PRN PRN Reason: SORE THROAT Colchicine (Colcrys) 0.6 mg PO DAILY [facility] Last Admin: 10/07/19 10:42 Dose: 0.6 mg Diltiazem HCl (Cardizem Cd -) 180 mg PO DAILY [facility] Last Admin: 10/07/19 10:42 Dose: 180 mg Duloxetine HCl (Cymbalta -) 40 mg PO DAILY [facility] Last Admin: 10/07/19 10:43 Dose: 40 mg Furosemide (Lasix -) 40 mg PO DAILY [facility] Gabapentin (Neurontin -) 300 mg PO TID [facility] Last Admin: 10/08/19 05:32 Dose: Not Given Insulin Aspart (Novolog Vial Sliding Scale -) 1 vial SQ ACHS [facility]; Protocol Last Admin: 10/08/19 06:21 Dose: Not Given Insulin Detemir (Levemir Vial) 10 units SQ 0700 [facility] Last Admin: 10/08/19 06:21 Dose: Not Given Lidocaine (Lidoderm Patch -) 1 patch TP DAILY [facility] Last Admin: 10/07/19 10:44 Dose: 1 patch Melatonin (Melatonin) 5 mg PO HS PRN PRN Reason: INSOMNIA Last Admin: 10/06/19 22:21 Dose: 5 mg Metoprolol Succinate (Toprol Xl -) 50 mg PO DAILY [facility] Last Admin: 10/07/19 10:43 Dose: 50 mg Miscellaneous (Lidoderm Patch Removal) 1 each MC DAILY@2200 [facility] Last Admin: 10/07/19 21:46 Dose: 1 each Multivitamins/Minerals/Vitamin C (Tab-A-Vit -) 1 tab PO DAILY [facility] Last Admin: 10/07/19 10:44 Dose: 1 tab Nystatin/Triamcinolone Acetonide (Mycolog Ii Cream -) 1 applic TP BID [facility] Last Admin: 10/07/19 21:46 Dose: 1 applic Pantoprazole Sodium (Protonix -) 40 mg PO DAILY [facility] Last Admin: 10/07/19 10:43 Dose: 40 mg Polyethylene Glycol (Miralax (For Daily Use) -) 17 gm PO BID [facility] Last Admin: 10/07/19 21:46 Dose: 17 grams Prednisone (Deltasone -) 15 mg PO DAILY [facility] Senna/Docusate Sodium (Pericolace -) 1 tablet PO BID [facility] Last Admin: 10/07/19 21:45 Dose: 1 tablet Tamsulosin HCl (Flomax -) 0.4 mg PO DAILY@0830 [facility] Last Admin: 10/07/19 10:43 Dose: 0.4 mg Trazodone HCl (Desyrel -) 50 mg PO HS [facility] Last Admin: 10/07/19 21:45 Dose: 50 mg Ursodiol (Actigal -) 300 mg PO BID [facility] Last Admin: 10/07/19 21:45 Dose: 300 mg Vancomycin HCl (Vancomycin Oral Solution) 125 mg PO Q6HPO [facility] Last Admin: 10/08/19 05:32 Dose: Not Given - Objective Vital Signs: Vital Signs Temperature 98.5 F 10/08/19 06:00 Pulse Rate 63 10/08/19 06:00 Respiratory Rate 18 10/08/19 06:00 Blood Pressure 118/67 10/08/19 06:00 O2 Sat by Pulse Oximetry (%) 99 10/08/19 00:06 Cardiovascular: Yes: S1, S2 Respiratory: Yes: Diminished, On Nasal O2 Gastrointestinal: Yes: Normal Bowel Sounds, Soft Labs: CBC, BMP 10/08/19 07:50 10/08/19 07:50 INR, PTT INR 3.09 (0.83-1.09) H 09/20/19 22:24 Assessment/Plan - Problems (1) Tachycardia Assessment/Plan: -Cardiology on board -rate controlled with Metoprolol and Cardizem -tele monitoring discontinued Code(s): R00.0 - TACHYCARDIA, UNSPECIFIED (2) Acute on chronic respiratory failure with hypoxia and hypercapnia Assessment/Plan: -Pulm on board -Bronchodilators -O2 via C -Bipap -Prednisone -CHest CT shows atelectasis/infiltration at both bases--cxr now -Keep SpO2 >90% -repeat Chest CT scan shows diffuse bilateral patchy infiltrates suspicious for pneumonia or congestion that have developed since 09/21/2019, persistent bibasilar atelectasis, left greater than right, and small bilateral pleural effusion Code(s): J96.21 - ACUTE AND CHRONIC RESPIRATORY FAILURE WITH HYPOXIA; J96.22 - ACUTE AND CHRONIC RESPIRATORY FAILURE WITH HYPERCAPNIA (3) Leukocytosis Assessment/Plan: -WBC 20--id follow up -afebrile -BC and UC neg -MRSA screen neg -Legionella neg -Vancomycin and Zosyn discontinued, monitor off -ID on board -Tylenol for temp >100F -repeat Chest CT scan shows diffuse bilateral patchy infiltrates suspicious for pneumonia or congestion that have developed since 09/21/2019, persistent bibasilar atelectasis, left greater than right, and small bilateral pleural effusion -reconsult ID Code(s): D72.829 - ELEVATED WHITE BLOOD CELL COUNT, UNSPECIFIED Qualifiers: Leukocytosis type: unspecified Qualified Code(s): D72.829 - Elevated white blood cell count, unspecified (4) Paget's bone disease Assessment/Plan: -Hematology on board Code(s): M88.9 - OSTEITIS DEFORMANS OF UNSPECIFIED BONE (5) Pneumonia Assessment/Plan: -WBC 20 -afebrile -BC neg -MRSA screen neg -Urine Legionella neg -Vancomycin and Zosyn, completed course monitor off -ID on board -Tylenol for temp >100F -Pulm on board -Bronchodilators -O2 via NC -Bipap HS and PRN -Prednisone -CHest CT shows atelectasis/infiltration at both bases -Keep SpO2 >90% -repeat Chest CT scan shows diffuse bilateral patchy infiltrates suspicious for pneumonia or congestion that have developed since 09/21/2019, persistent bibasilar atelectasis, left greater than right, and small bilateral pleural effusion -reconsult ID Code(s): J18.9 - PNEUMONIA, UNSPECIFIED ORGANISM Qualifiers: Pneumonia type: due to unspecified organism Laterality: left Lung location: lower lobe of lung Qualified Code(s): J18.9 - Pneumonia, unspecified organism (6) Polyarthralgia Assessment/Plan: -Rheumatology on board -ESR >140, CRP 41.6, Uric Acid wnl -pain control -s/p aspiration L knee~fluid positive for monosodium urate crystals -Prednisone -Colchicine Code(s): M25.50 - PAIN IN UNSPECIFIED JOINT (7) Anemia Assessment/Plan: -Anemia panel reviewed -Hg 9.0 -monitor H/H -transfuse for Hg <7.0 to avoid fluid overload Code(s): D64.9 - ANEMIA, UNSPECIFIED (8) Atrial fibrillation Assessment/Plan: -Eliquis BID -rate controlled with Metoprolol and Cardizem Code(s): I48.91 - UNSPECIFIED ATRIAL FIBRILLATION (9) HLD (hyperlipidemia) Assessment/Plan: -Atorvastatin Code(s): E78.5 - HYPERLIPIDEMIA, UNSPECIFIED Qualifiers: Hyperlipidemia type: other hyperlipidemia Qualified Code(s): E78.49 - Other hyperlipidemia; E78.4 - Other hyperlipidemia (10) Hypertension Assessment/Plan: -Amlodipine -low Na diet Code(s): I10 - ESSENTIAL (PRIMARY) HYPERTENSION Qualifiers: Hypertension type: unspecified Qualified Code(s): I10 - Essential (primary ) hypertension (11) BPH (benign prostatic hyperplasia) Assessment/Plan: -Tamsulosin Code(s): N40.0 - BENIGN PROSTATIC HYPERPLASIA WITHOUT LOWER URINRY TRACT SYMP (12) Diabetes Assessment/Plan: -BGM ACHS -Levemir -ISS Code(s): E11.9 - TYPE 2 DIABETES MELLITUS WITHOUT COMPLICATIONS Qualifiers: Diabetes mellitus type: other specified (including TAN) Diabetes mellitus intermediate insulin use: unspecified intermediate insulin use status Diabetes mellitus complication status: with other specified complication Qualified Code (s): E13.69 - Other specified diabetes mellitus with other specified complication (13) UTI (urinary tract infection) Assessment/Plan: -ID on board -leukocytosis -afebrile -UA shows 3+ leuks, 3+ protein, 2+ bilirubin -UC neg Code(s): N39.0 - URINARY TRACT INFECTION, SITE NOT SPECIFIED (14) BEKA (acute kidney injury) Assessment/Plan: -Renal on board -BUN/Cr 2118.2/0.8 -monitor real function Code(s): N17.9 - ACUTE KIDNEY FAILURE, UNSPECIFIED
[2019-10-08] MEDS ORDERED: predniSONE 10 MG TABLET (UD) PO SCH (10:00)
[2019-10-08] MEDS ORDERED: PT OWN MED DRAWER 7, Y5N ONE (10:49)
[2019-10-08] MEDS: URSODIOL 300 MG CAPSULE PO SCH ×2 (10:54→22:51)
[2019-10-08] MEDS: DULoxetine HCL 20 MG CAPSULE.DR PO SCH (10:54)
[2019-10-08] MEDS: LIDOCAINE 5% TOPICAL PATCH TP SCH (10:54)
[2019-10-08] MEDS: FUROSEMIDE 20 MG TABLET (FP) PO SCH (10:55)
[2019-10-08] MEDS: PANTOPRAZOLE 40 MG TABLET (FP) PO SCH (10:55)
[2019-10-08] MEDS: TAMSULOSIN HCL 0.4 MG CAP PO SCH (10:55)
[2019-10-08] MEDS: APIXABAN 5 MG TABLET PO SCH ×2 (10:55→22:51)
[2019-10-08] MEDS: COLCHICINE 0.6 MG CAP PO SCH (10:55)
[2019-10-08] MEDS: predniSONE 10 MG TABLET (UD) PO SCH (10:55)
[2019-10-08] MEDS: MULTIVITAMINS (DAILY MVI) TABLET (FP) PO SCH (10:58)
[2019-10-08] MEDS: SENNOSIDES/DOCUSATE COMBO (SENNA PLUS) TABLET (UD) PO SCH (10:59)
[2019-10-08] MEDS: POLYETHYLENE GLYCOL 3350 119 GM BTL PO SCH (10:59)
[2019-10-08] MEDS: NYSTATIN/TRIAMCINOLONE TOPICAL CREAM 15 GM TUBE TP SCH ×2 (11:02→23:08)
--- NOTE | 2019-10-08 15:54 | PN ---
Progress Note (short form) - Note Progress Note: asked to f/u for leukocytosis awake and alert no complaints reports 2 to 3 loose stools has been on po vancomycin since 10/04 continued SOB abd pain this am- now improved Vital Signs Period Temp Pulse Resp BP Sys/En[place]ado Pulse Ox Last 24 Hr 98 F-98.5 F 63-94 18-20 114-130/59-69 97-100 alert on bipap cor-rrr lungs decreased bs at bses abd soft,nt ext much less edema of the hands or feet CBC, BMP 10/08/19 07:50 10/08/19 07:50 Microbiology 10/03/19 14:00 Stool Gram Stain - Final 10/03/19 14:00 Stool Clostridioides difficile Antigen - Final 10/03/19 14:00 Stool Clostridioides difficile Toxin Assay - Final 10/03/19 14:00 Stool Salmonella/Shigella Culture - Final NO GROWTH OF SALMONELLA OR SHIGELLA SPECIES OBTAINED 10/03/19 14:00 Stool Campylobacter Culture - Final NO GROWTH OF CAMPYLOBACTER SPECIES OBTAINED 10/03/19 14:00 Stool Yersinia Culture - Final NO GROWTH OF YERSINIA SPECIES OBTAINED 10/03/19 14:00 Stool Vibrio Culture - Final NO GROWTH OF VIBRIO SPECIES OBTAINED 10/03/19 14:00 Stool Escherichia coli 0157 Culture - Final NO GROWTH OF E COLI 0157 OBTAINED 09/21/19 00:00 Blood - Peripheral Venous Blood Culture - Final NO GROWTH AFTER 5 DAYS INCUBATION 09/21/19 00:00 Blood - Peripheral Venous Blood Culture - Final NO GROWTH AFTER 5 DAYS INCUBATION 09/21/19 18:00 Synovial Fluid - Knee Gram Stain - Final 09/21/19 18:00 Synovial Fluid - Knee Body Fluid Culture - Final NO GROWTH OF AEROBIC ORGANISMS AFTER 48 HOURS INCUBATION 09/21/19 18:00 Synovial Fluid - Knee Anaerobic Culture - Final NO ANAEROBES WERE ISOLATED 09/22/19 19:45 Urine For Antigen Detection Legionella Antigen - Final 09/22/19 19:45 Urine For Antigen Detection Streptococcus pneumoniae Antigen (M - Final 09/21/19 18:40 Nares - Mrsa Screen - Right MRSA Screen - Final NO MRSA ISOLATED 09/21/19 18:40 Nares - Mrsa Screen - Left MRSA Screen - Final NO MRSA ISOLATED 09/21/19 00:28 Urine - Urine - Catheterized Urine Culture - Final NO GROWTH OBTAINED cxray unchanged synovial fluid +urate crystals hida- no cholycysititis meds reviewed a/p leukocytosis- suspect steroids +cdiff antigen- on po vancomycin-day 4- loose stools persist- will d/c miralax and pericolace (standing orders) afib- management per cardiology 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
[2019-10-08] MEDS: ATORVASTATIN CA 40 MG TABLET (FP) PO SCH (22:51)
[2019-10-08] MEDS: traZODone HCL 50 MG TABLET (FP) PO SCH (22:51)
[2019-10-08] MEDS: NYSTATIN POWDER 100,000 UNITS/GM - 15 GM TOPICAL POWDER TP SCH (23:07)
[2019-10-08] MEDS: LIDOCAINE PATCH REMOVAL MC SCH (23:09)
[2019-10-08] MEDS: ALBUTEROL SO4 0.042% IH SOL 1.25 MG/3 ML VIAL.NEB NEB PRN (23:45)
[2019-10-09] MEDS: VANCOMYCIN 250 MG/5 ML ORAL SOLUTION PO SCH ×5 (01:13→23:58)
[2019-10-09] MEDS: GABAPENTIN 300 MG CAPSULE (FP) PO SCH ×3 (07:07→21:20)
[2019-10-09] MEDS: INSULIN (LEVEMIR) 100 UNITS/ML UNITS SQ SCH (07:17)
[2019-10-09] MEDS: INSULIN SLIDING SCALE (NOVOLOG) 1 VIAL SQ SCH ×4 (07:17→21:24)
[2019-10-09] MEDS: TAMSULOSIN HCL 0.4 MG CAP PO SCH (11:36)
[2019-10-09] MEDS: COLCHICINE 0.6 MG CAP PO SCH (11:36)
[2019-10-09] MEDS: URSODIOL 300 MG CAPSULE PO SCH ×2 (11:36→21:20)
[2019-10-09] MEDS: FUROSEMIDE 20 MG TABLET (FP) PO SCH (11:36)
[2019-10-09] MEDS: PANTOPRAZOLE 40 MG TABLET (FP) PO SCH (11:36)
[2019-10-09] MEDS: APIXABAN 5 MG TABLET PO SCH ×2 (11:36→21:20)
[2019-10-09] MEDS: NYSTATIN/TRIAMCINOLONE TOPICAL CREAM 15 GM TUBE TP SCH ×2 (11:37→21:30)
[2019-10-09] MEDS: DULoxetine HCL 20 MG CAPSULE.DR PO SCH (11:37)
[2019-10-09] MEDS: LIDOCAINE 5% TOPICAL PATCH TP SCH (11:37)
[2019-10-09] MEDS: predniSONE 10 MG TABLET (UD) PO SCH (11:37)
[2019-10-09] MEDS: MULTIVITAMINS (DAILY MVI) TABLET (FP) PO SCH (11:38)
[2019-10-09] MEDS: NYSTATIN POWDER 100,000 UNITS/GM - 15 GM TOPICAL POWDER TP SCH ×2 (11:38→21:29)
--- NOTE | 2019-10-09 12:31 | DS ---
Physical Examination Vital Signs: Vital Signs Temperature 98.7 F 10/09/19 06:00 Pulse Rate 77 10/09/19 06:00 Respiratory Rate 20 10/09/19 06:00 Blood Pressure 127/66 10/09/19 06:00 O2 Sat by Pulse Oximetry (%) 96 10/09/19 08:13 Labs: CBC, BMP 10/08/19 07:50 10/08/19 07:50 Discharge Summary Problems reviewed: Yes Reason For Visit: PAGET'S DISEASE OF BONE, LEUKOCYTOSIS, PNEUMONIA Current Active Problems Acute cholecystitis (Acute) Acute on chronic respiratory failure with hypoxia and hypercapnia (Acute) Dehydration (Acute) Leukocytosis (Acute) NSVT (nonsustained ventricular tachycardia) (Acute) Paget's bone disease (Acute) Pneumonia (Acute) Polyarthralgia (Acute) Undifferentiated inflammatory arthritis (Acute) Hospital Course: - Problems (1) Tachycardia Assessment/Plan: -Cardiology on board -rate controlled with Metoprolol and Cardizem -tele monitoring discontinued Code(s): R00.0 - TACHYCARDIA, UNSPECIFIED (2) Acute on chronic respiratory failure with hypoxia and hypercapnia Assessment/Plan: -Pulm on board -Bronchodilators -O2 via C -Bipap -Prednisone -CHest CT shows atelectasis/infiltration at both bases--CXR NO CHANGE- ATELECTASIS -Keep SpO2 >90% -repeat Chest CT scan shows diffuse bilateral patchy infiltrates suspicious for pneumonia or congestion that have developed since 09/21/2019, persistent bibasilar atelectasis, left greater than right, and small bilateral pleural effusion Code(s): J96.21 - ACUTE AND CHRONIC RESPIRATORY FAILURE WITH HYPOXIA; J96.22 - ACUTE AND CHRONIC RESPIRATORY FAILURE WITH HYPERCAPNIA (3) Leukocytosis Assessment/Plan: -WBC 20--id follow up NOTED MAYBE STEROID INDUCED -afebrile -BC and UC neg -MRSA screen neg -Legionella neg -Vancomycin and Zosyn discontinued, monitor off -ID on board -Tylenol for temp >100F -repeat Chest CT scan shows diffuse bilateral patchy infiltrates suspicious for pneumonia or congestion that have developed since 09/21/2019, persistent bibasilar atelectasis, left greater than right, and small bilateral pleural effusion Code(s): D72.829 - ELEVATED WHITE BLOOD CELL COUNT, UNSPECIFIED Qualifiers: Leukocytosis type: unspecified Qualified Code(s): D72.829 - Elevated white blood cell count, unspecified (4) Paget's bone disease Assessment/Plan: -Hematology on board Code(s): M88.9 - OSTEITIS DEFORMANS OF UNSPECIFIED BONE (5) Pneumonia Assessment/Plan: -WBC 20 -afebrile -BC neg -MRSA screen neg -Urine Legionella neg -Vancomycin and Zosyn, completed course monitor off -ID on board -Tylenol for temp >100F -Pulm on board -Bronchodilators -O2 via NC -Bipap HS and PRN -Prednisone -CHest CT shows atelectasis/infiltration at both bases -Keep SpO2 >90% -repeat Chest CT scan shows diffuse bilateral patchy infiltrates suspicious for pneumonia or congestion that have developed since 09/21/2019, persistent bibasilar atelectasis, left greater than right, and small bilateral pleural effusion -reconsult ID Code(s): J18.9 - PNEUMONIA, UNSPECIFIED ORGANISM Qualifiers: Pneumonia type: due to unspecified organism Laterality: left Lung location: lower lobe of lung Qualified Code(s): J18.9 - Pneumonia, unspecified organism (6) Polyarthralgia Assessment/Plan: -Rheumatology on board -ESR >140, CRP 41.6, Uric Acid wnl -pain control -s/p aspiration L knee~fluid positive for monosodium urate crystals -Prednisone -Colchicine Code(s): M25.50 - PAIN IN UNSPECIFIED JOINT (7) Anemia Assessment/Plan: -Anemia panel reviewed -Hg 9.0 -monitor H/H -transfuse for Hg <7.0 to avoid fluid overload Code(s): D64.9 - ANEMIA, UNSPECIFIED (8) Atrial fibrillation Assessment/Plan: -Eliquis BID -rate controlled with Metoprolol and Cardizem Code(s): I48.91 - UNSPECIFIED ATRIAL FIBRILLATION (9) HLD (hyperlipidemia) Assessment/Plan: -Atorvastatin Code(s): E78.5 - HYPERLIPIDEMIA, UNSPECIFIED Qualifiers: Hyperlipidemia type: other hyperlipidemia Qualified Code(s): E78.49 - Other hyperlipidemia; E78.4 - Other hyperlipidemia (10) Hypertension Assessment/Plan: -Amlodipine -low Na diet Code(s): I10 - ESSENTIAL (PRIMARY) HYPERTENSION Qualifiers: Hypertension type: unspecified Qualified Code(s): I10 - Essential (primary ) hypertension (11) BPH (benign prostatic hyperplasia) Assessment/Plan: -Tamsulosin Code(s): N40.0 - BENIGN PROSTATIC HYPERPLASIA WITHOUT LOWER URINRY TRACT SYMP (12) Diabetes Assessment/Plan: -BGM ACHS -Levemir -ISS Code(s): E11.9 - TYPE 2 DIABETES MELLITUS WITHOUT COMPLICATIONS Qualifiers: Diabetes mellitus type: other specified (including TAN) Diabetes mellitus half-way insulin use: unspecified tank terminal gauger insulin use status Diabetes mellitus complication status: with other specified complication Qualified Code (s): E13.69 - Other specified diabetes mellitus with other specified complication (13) UTI (urinary tract infection) Assessment/Plan: -ID on board -leukocytosis -afebrile -UA shows 3+ leuks, 3+ protein, 2+ bilirubin -UC neg Code(s): N39.0 - URINARY TRACT INFECTION, SITE NOT SPECIFIED (14) BEKA (acute kidney injury) Assessment/Plan: -Renal on board -BUN/Cr 2118.2/0.8 -monitor real function Code(s): N17.9 - ACUTE KIDNEY FAILURE, UNSPECIFIED (8) CDIF Assessment/Plan: On po Vanco Condition: Stable - Instructions Referrals: Jaz Mendieta MD [Primary Care Provider] - Saul Diaz MD [Staff Physician] - Disposition: CUSTODIAL FACILITY - Home Medications Comprehensive Discharge Medication List: Ambulatory Orders Alendronate Na [Fosamax (Weekly)] 70 mg PO WEEKLY 01/29/17 Atorvastatin Calcium 40 mg PO HS 01/29/17 Aspirin Coated [Ecotrin -] 81 mg PO DAILY tablet.ec 11/05/17 Amlodipine Besylate 5 mg PO DAILY 05/04/18 Acetaminophen [Tylenol .Regular Strength -] 650 mg PO Q6H PRN tablet 03/07/19 Apixaban [Eliquis -] 5 mg PO BID tablet 03/07/19 Insulin Sliding Scale [Novolog Vial Sliding Scale -] 1 vial SQ ACHS units 03/07 Docusate Sodium [Colace] 300 mg PO HS 06/23/19 Gabapentin 300 mg PO TID 06/23/19 Insulin Glargine,Hum.rec.anlog [Basaglar Kwikpen U-100] 20 unit SQ DAILY Polyethylene Glycol 3350 [Miralax 119 gm Btl -] 17 gm PO DAILY 06/23/19 Tamsulosin HCl [Flomax] 0.4 mg PO DAILY 06/23/19 Zinc Oxide 20% Topical Oint 1 appful DAILY PRN 06/23/19 Lidocaine 5% Patch [Lidoderm -] 1 patch TP DAILY patch 07/01/19 Melatonin 3 mg PO HS 08/31/19 Metoprolol Tartrate 25 mg PO BID 08/31/19 Multivitamin [Multiple Vitamins] 1 each PO DAILY 08/31/19 Albuterol 2.5/Ipratropium 0.5 [Duoneb -] 1 amp NEB RQID amp 09/17/19 Duloxetine HCl [Cymbalta -] 20 mg PO DAILY capsule. 09/17/19 Ferrous Sulfate [Feosol] 325 mg PO BID ud 09/17/19 Lisinopril [Prinivil] 2.5 mg PO DAILY tablet 09/17/19 Magnesium Hydrox 2400MG/30Ml [Milk of Magnesia -] 30 ml PO DAILY PRN cup Sennosides [Senna -] 2 tab PO HS PRN tablet 09/17/19 Sitagliptin Phosphate [Januvia -] 25 mg PO DAILY@0700 tab 09/17/19 Mag Hydrox/Al Hydrox/Simeth [Mylanta *Suspension*] 30 ml PO Q6H 09/21/19 Oxycodone HCl 10 mg PO Q8H PRN 09/21/19 Phenazopyridine HCl [Pyridium] 200 mg PO TID 09/21/19 Piperacillin/Tazob 3.375 gm [Zosyn 3.375GM Ivpb (Pre-Docked)] 3.375 gm IVPB Q8H 09/21/19 Potassium Chloride [K-Dur -] 40 meq PO DAILY 09/21/19 Silver Sulfadiazine 1% Top Cr [Silvadene -] 1 applic TP DAILY 09/21/19 predniSONE [Deltasone] 20 mg PO DAILY 09/21/19 Colchicine [Colcrys] 0.6 mg PO DAILY cap 10/04/19 Diltiazem Cd [Cardizem Cd -] 180 mg PO DAILY cap.cd.24h 10/04/19 Furosemide [Lasix -] 20 mg PO DAILY tablet 10/04/19 Insulin (Levemir) [Levemir Vial] 10 units SQ 0700 units 10/04/19 Insulin Sliding Scale [Novolog Vial Sliding Scale -] 1 vial SQ ACHS units 10/04 Lidocaine Patch Removal [Lidoderm Patch Removal] 1 each MC DAILY@2200 each Melatonin 5 mg PO HS PRN tab 10/04/19 Metoprolol Succinate [Toprol XL -] 50 mg PO DAILY tab.sr.24h 10/04/19 Nystatin/Triamcinolone Top Cr [Mycolog II -] 1 applic TP BID applic 10/04/19 Pantoprazole Sodium [Protonix -] 40 mg PO DAILY #30 tablet.ec 10/04/19 Polyethylene Glycol 3350 [Miralax 119 gm Btl -] 17 gm PO BID bottle 10/04/19 Sennosides/Docusate Sodium [Pericolace -] 1 tablet PO BID tablet 10/04/19 Ursodiol [Actigal -] 300 mg PO BID capsule 10/04/19 predniSONE [Deltasone -] 20 mg PO DAILY tablet 10/04/19 traZODone HCL [Desyrel -] 50 mg PO HS tablet 10/04/19
--- NOTE | 2019-10-09 13:14 | PN ---
Progress Note (short form) - Note Progress Note: PULMONARY BiPAP with improvement Lacks energy Feels discomfort in suprapubic area which he feels is causing him to be SOB VSS/AFEBRILE Gen: NAD on BiPAP Heart: RRR Lung: decreased breath sounds at the bases Abd: soft, nontender Ext: no edema Chart reviewed CXR NO CHANGE A/P Acute Hypoxic and Hypercapneic Respiratory Failure Acute Pulmonary Edema Acute on Chronic Diastolic Heart Failure Atrial Fibrillation with RVR r/o Pneumonia new bilateral patchy infiltrates UTI Acute Kidney Injury COPD Paget's Disease DM Anemia - rate control per cardiology - continue lasix - monitor urine output, creatinine - continue anticoagulation - BiPAP as needed to assist in work of breathing - O2 to keep SpO2 >90% - completed antibiotics - taper off prednisone - inhaled bronchodilators Fabio LEWIS MD
[2019-10-09] MEDS: ALBUTEROL SO4 0.042% IH SOL 1.25 MG/3 ML VIAL.NEB NEB PRN (16:39)
[2019-10-09] MEDS ORDERED: INSULIN (NOVOLOG) ASPART 100 UNITS/ML 10ML VIAL ONE (18:02)
[2019-10-09] MEDS ORDERED: PT OWN MED DRAWER 7, Y5N ONE (18:02)
[2019-10-09] MEDS ORDERED: INSULIN (LEVEMIR) 100 UNITS/ML UNITS SQ ONE (18:02)
[2019-10-09 18:38] LABS: BASO % 0.2 % (0-2.0); EOS % 0.2 % (0-4.5); HEMATOCRIT 29.9 % (35.4-49); HEMOGLOBIN 9.1 GM/dL (11.7-16.9); LYMPH % 2.2 % (8-40); MCH 30.7 pg (25.7-33.7); MCHC 30.6 g/dl (32.0-35.9); MEAN CELL VOLUME 100.3 fl (80-96); MEAN PLT VOLUME 8.8 fl (7.5-11.1); MONO % 1.3 % (3.8-10.2); NEUT % 96.1 % (42.8-82.8); PLATELET COUNT 127 K/MM3 (134-434); RBC 2.98 M/mm3 (4.00-5.60); RDW 20.6 % (11.9-15.9); WHITE BLOOD COUNT 25.9 K/mm3 (4.0-10.0)
[2019-10-09 18:57] LABS: ALBUMIN 2.5 g/dl (3.4-5.0); BILIRUBIN,TOTAL 0.6 mg/dL (0.2-1); BLOOD UREA NITROGEN 12.2 mg/dL (7-18); CALCIUM 8.6 mg/dL (8.5-10.1); CREATININE 0.7 mg/dL (0.55-1.3); TOT PROT 5.1 g/dl (6.4-8.2)
[2019-10-09] MEDS: traZODone HCL 50 MG TABLET (FP) PO SCH (21:20)
[2019-10-09] MEDS: MELATONIN 5 MG TABLETS PO PRN (21:21)
[2019-10-09 21:42] LABS: ANISOCYTOSIS 2+
[2019-10-09 21:43] LABS: PLATELET ESTIMATE SLT DECREASE
[2019-10-09] MEDS: ATORVASTATIN CA 40 MG TABLET (FP) PO SCH (22:27)
[2019-10-09] MEDS: LIDOCAINE PATCH REMOVAL MC SCH (22:27)
[2019-10-10] MEDS: GABAPENTIN 300 MG CAPSULE (FP) PO SCH ×3 (06:52→21:41)
[2019-10-10] MEDS: INSULIN (LEVEMIR) 100 UNITS/ML UNITS SQ SCH (06:52)
[2019-10-10] MEDS: VANCOMYCIN 250 MG/5 ML ORAL SOLUTION PO SCH ×3 (06:52→19:18)
[2019-10-10] MEDS: INSULIN SLIDING SCALE (NOVOLOG) 1 VIAL SQ SCH ×4 (06:53→22:34)
[2019-10-10] MEDS: ALBUTEROL SO4 0.042% IH SOL 1.25 MG/3 ML VIAL.NEB NEB PRN ×3 (07:35→15:50)
[2019-10-10 08:25] LABS: BASO % 0.3 % (0-2.0); EOS % 2.2 % (0-4.5); HEMATOCRIT 27.3 % (35.4-49); HEMOGLOBIN 8.6 GM/dL (11.7-16.9); LYMPH % 5.5 % (8-40); MCH 30.7 pg (25.7-33.7); MCHC 31.4 g/dl (32.0-35.9); MEAN CELL VOLUME 97.9 fl (80-96); MEAN PLT VOLUME 8.5 fl (7.5-11.1); MONO % 2.2 % (3.8-10.2); NEUT % 89.8 % (42.8-82.8); PLATELET COUNT 119 K/MM3 (134-434); RBC 2.79 M/mm3 (4.00-5.60); RDW 20.9 % (11.9-15.9); WHITE BLOOD COUNT 16.8 K/mm3 (4.0-10.0)
[2019-10-10 08:37] LABS: BLOOD UREA NITROGEN 11.4 mg/dL (7-18); CALCIUM 8.4 mg/dL (8.5-10.1); CREATININE 0.6 mg/dL (0.55-1.3); MAGNESIUM 1.7 mg/dL (1.8-2.4); PHOSPHOROUS 2.5 mg/dL (2.5-4.9); POTASSIUM 3.4 mmol/L (3.5-5.1)
[2019-10-10] MEDS: LIDOCAINE 5% TOPICAL PATCH TP SCH (11:00)
[2019-10-10] MEDS: TAMSULOSIN HCL 0.4 MG CAP PO SCH (11:01)
[2019-10-10] MEDS: FUROSEMIDE 20 MG TABLET (FP) PO SCH (11:01)
[2019-10-10] MEDS: PANTOPRAZOLE 40 MG TABLET (FP) PO SCH (11:02)
[2019-10-10] MEDS: URSODIOL 300 MG CAPSULE PO SCH (11:02)
[2019-10-10] MEDS: MULTIVITAMINS (DAILY MVI) TABLET (FP) PO SCH (11:02)
[2019-10-10] MEDS: APIXABAN 5 MG TABLET PO SCH ×2 (11:02→21:41)
[2019-10-10] MEDS: COLCHICINE 0.6 MG CAP PO SCH (11:02)
--- NOTE | 2019-10-10 11:02 | PN ---
Progress Note, Physician Chief Complaint: Pneumonia Afib History of Present Illness: Previous notes and events reviewed awake and alert breathing on NC NAD denies chest pain or palpitations complain of generalized itchy, rash - Current Medication List Current Medications: Active Medications Acetaminophen (Tylenol -) 650 mg PO Q6H PRN PRN Reason: FEVER OR PAIN LEVEL 1 - 3 Albuterol Sulfate (Ventolin 0.042trength) -) 1 amp NEB Q6H PRN PRN Reason: SHORT OF BREATH/WHEEZING Last Admin: 10/10/19 07:35 Dose: 1 amp Apixaban (Eliquis -) 5 mg PO BID [facility] Last Admin: 10/09/19 21:20 Dose: 5 mg Atorvastatin Calcium (Lipitor -) 40 mg PO HS [facility] Last Admin: 10/09/19 22:27 Dose: 40 mg Benzocaine/Menthol (Cepacol Lozenge -) 1 each MM Q2H PRN PRN Reason: SORE THROAT Colchicine (Colcrys) 0.6 mg PO DAILY [facility] Last Admin: 10/09/19 11:36 Dose: 0.6 mg Diltiazem HCl (Cardizem Cd -) 180 mg PO DAILY [facility] Last Admin: 10/09/19 11:37 Dose: 180 mg Duloxetine HCl (Cymbalta -) 40 mg PO DAILY [facility] Last Admin: 10/09/19 11:37 Dose: 40 mg Furosemide (Lasix -) 40 mg PO DAILY [facility] Last Admin: 10/09/19 11:36 Dose: 40 mg Gabapentin (Neurontin -) 300 mg PO TID [facility] Last Admin: 10/10/19 06:52 Dose: 300 mg Insulin Aspart (Novolog Vial Sliding Scale -) 1 vial SQ ACHS [facility]; Protocol Last Admin: 10/10/19 06:53 Dose: Not Given Insulin Detemir (Levemir Vial) 10 units SQ 0700 [facility] Last Admin: 10/10/19 06:52 Dose: 10 units Lidocaine (Lidoderm Patch -) 1 patch TP DAILY [facility] Last Admin: 10/09/19 11:37 Dose: 1 patch Melatonin (Melatonin) 5 mg PO HS PRN PRN Reason: INSOMNIA Last Admin: 10/09/19 21:21 Dose: 5 mg Metoprolol Succinate (Toprol Xl -) 50 mg PO DAILY [facility] Last Admin: 10/09/19 11:36 Dose: 50 mg Miscellaneous (Lidoderm Patch Removal) 1 each MC DAILY@2200 [facility] Last Admin: 10/09/19 22:27 Dose: 1 each Multivitamins/Minerals/Vitamin C (Tab-A-Vit -) 1 tab PO DAILY [facility] Last Admin: 10/09/19 11:38 Dose: 1 tab Nystatin (Nystop Powder -) 1 applic TP BID [facility] Last Admin: 10/09/19 21:29 Dose: 1 applic Nystatin/Triamcinolone Acetonide (Mycolog Ii Cream -) 1 applic TP BID [facility] Last Admin: 10/09/19 21:30 Dose: 1 applic Pantoprazole Sodium (Protonix -) 40 mg PO DAILY [facility] Last Admin: 10/09/19 11:36 Dose: 40 mg Prednisone (Deltasone -) 15 mg PO DAILY [facility] Last Admin: 10/09/19 11:37 Dose: 15 mg Tamsulosin HCl (Flomax -) 0.4 mg PO DAILY@0830 [facility] Last Admin: 10/09/19 11:36 Dose: 0.4 mg Trazodone HCl (Desyrel -) 50 mg PO HS [facility] Last Admin: 10/09/19 21:20 Dose: 50 mg Ursodiol (Actigal -) 300 mg PO BID [facility] Last Admin: 10/09/19 21:20 Dose: 300 mg Vancomycin HCl (Vancomycin Oral Solution) 125 mg PO Q6HPO [facility] Last Admin: 10/10/19 06:52 Dose: 125 mg - Objective Vital Signs: Vital Signs Temperature 98.0 F 10/10/19 06:00 Pulse Rate 106 H 10/10/19 06:00 Respiratory Rate 18 10/10/19 06:00 Blood Pressure 108/65 10/10/19 06:00 O2 Sat by Pulse Oximetry (%) 100 10/10/19 08:17 Constitutional: Yes: No Distress, Calm Eyes: Yes: Conjunctiva Clear HENT: Yes: Atraumatic Cardiovascular: Yes: Regular Rate and Rhythm Respiratory: Yes: Regular, Diminished, On Nasal O2 Gastrointestinal: Yes: Normal Bowel Sounds, Soft Genitourinary: Yes: Incontinence Musculoskeletal: Yes: Muscle Weakness Extremities: Yes: WNL Edema: No Integumentary: Yes: Rash Neurological: Yes: Alert, Oriented Psychiatric: Yes: Alert, Oriented Labs: CBC, BMP 10/10/19 06:40 10/10/19 06:40 INR, PTT INR 3.09 (0.83-1.09) H 09/20/19 22:24 Microbiology 10/03/19 14:00 Stool Gram Stain - Final 10/03/19 14:00 Stool Clostridioides difficile Antigen - Final 10/03/19 14:00 Stool Clostridioides difficile Toxin Assay - Final 10/03/19 14:00 Stool Salmonella/Shigella Culture - Final NO GROWTH OF SALMONELLA OR SHIGELLA SPECIES OBTAINED 10/03/19 14:00 Stool Campylobacter Culture - Final NO GROWTH OF CAMPYLOBACTER SPECIES OBTAINED 10/03/19 14:00 Stool Yersinia Culture - Final NO GROWTH OF YERSINIA SPECIES OBTAINED 10/03/19 14:00 Stool Vibrio Culture - Final NO GROWTH OF VIBRIO SPECIES OBTAINED 10/03/19 14:00 Stool Escherichia coli 0157 Culture - Final NO GROWTH OF E COLI 0157 OBTAINED 09/21/19 00:00 Blood - Peripheral Venous Blood Culture - Final NO GROWTH AFTER 5 DAYS INCUBATION 09/21/19 00:00 Blood - Peripheral Venous Blood Culture - Final NO GROWTH AFTER 5 DAYS INCUBATION 09/21/19 18:00 Synovial Fluid - Knee Gram Stain - Final 09/21/19 18:00 Synovial Fluid - Knee Body Fluid Culture - Final NO GROWTH OF AEROBIC ORGANISMS AFTER 48 HOURS INCUBATION 09/21/19 18:00 Synovial Fluid - Knee Anaerobic Culture - Final NO ANAEROBES WERE ISOLATED 09/22/19 19:45 Urine For Antigen Detection Legionella Antigen - Final 09/22/19 19:45 Urine For Antigen Detection Streptococcus pneumoniae Antigen (M - Final 09/21/19 18:40 Nares - Mrsa Screen - Right MRSA Screen - Final NO MRSA ISOLATED 09/21/19 18:40 Nares - Mrsa Screen - Left MRSA Screen - Final NO MRSA ISOLATED 09/21/19 00:28 Urine - Urine - Catheterized Urine Culture - Final NO GROWTH OBTAINED Problem List - Problems (1) Tachycardia Assessment/Plan: -Cardiology on board -rate controlled with Metoprolol and Cardizem -tele monitoring discontinued Code(s): R00.0 - TACHYCARDIA, UNSPECIFIED (2) Acute on chronic respiratory failure with hypoxia and hypercapnia Assessment/Plan: -Pulm on board -Bronchodilators -O2 via C -Bipap HS -Prednisone -CHest CT shows atelectasis/infiltration at both bases -Keep SpO2 >90% -repeat Chest CT scan shows diffuse bilateral patchy infiltrates suspicious for pneumonia or congestion that have developed since 09/21/2019, persistent bibasilar atelectasis, left greater than right, and small bilateral pleural effusion Code(s): J96.21 - ACUTE AND CHRONIC RESPIRATORY FAILURE WITH HYPOXIA; J96.22 - ACUTE AND CHRONIC RESPIRATORY FAILURE WITH HYPERCAPNIA (3) Leukocytosis Assessment/Plan: -WBC 16.8 -afebrile -BC and UC neg -MRSA screen neg -Legionella neg -Vancomycin and Zosyn discontinued, monitor off -ID on board -Tylenol for temp >100F -repeat Chest CT scan shows diffuse bilateral patchy infiltrates suspicious for pneumonia or congestion that have developed since 09/21/2019, persistent bibasilar atelectasis, left greater than right, and small bilateral pleural effusion -reconsult ID -patient is on steroid Code(s): D72.829 - ELEVATED WHITE BLOOD CELL COUNT, UNSPECIFIED Qualifiers: Leukocytosis type: unspecified Qualified Code(s): D72.829 - Elevated white blood cell count, unspecified (4) Paget's bone disease Assessment/Plan: -Hematology on board Code(s): M88.9 - OSTEITIS DEFORMANS OF UNSPECIFIED BONE (5) Pneumonia Assessment/Plan: -WBC 16.8 -afebrile -BC neg -MRSA screen neg -Urine Legionella neg -Vancomycin and Zosyn, completed course monitor off -ID on board -Tylenol for temp >100F -Pulm on board -Bronchodilators -O2 via NC -Bipap HS and PRN -Prednisone -CHest CT shows atelectasis/infiltration at both bases -Keep SpO2 >90% -repeat Chest CT scan shows diffuse bilateral patchy infiltrates suspicious for pneumonia or congestion that have developed since 09/21/2019, persistent bibasilar atelectasis, left greater than right, and small bilateral pleural effusion -reconsult ID and no new recommendations Code(s): J18.9 - PNEUMONIA, UNSPECIFIED ORGANISM Qualifiers: Pneumonia type: due to unspecified organism Laterality: left Lung location: lower lobe of lung Qualified Code(s): J18.9 - Pneumonia, unspecified organism (6) Polyarthralgia Assessment/Plan: -Rheumatology on board -ESR >140, CRP 41.6, Uric Acid wnl -pain control -s/p aspiration L knee~fluid positive for monosodium urate crystals -Prednisone -Colchicine Code(s): M25.50 - PAIN IN UNSPECIFIED JOINT (7) Anemia Assessment/Plan: -Anemia panel reviewed -Hg 8.6 -monitor H/H -transfuse for Hg <7.0 to avoid fluid overload Code(s): D64.9 - ANEMIA, UNSPECIFIED (8) Atrial fibrillation Assessment/Plan: -Eliquis BID -rate controlled with Metoprolol and Cardizem Code(s): I48.91 - UNSPECIFIED ATRIAL FIBRILLATION (9) HLD (hyperlipidemia) Assessment/Plan: -Atorvastatin Code(s): E78.5 - HYPERLIPIDEMIA, UNSPECIFIED Qualifiers: Hyperlipidemia type: other hyperlipidemia Qualified Code(s): E78.49 - Other hyperlipidemia; E78.4 - Other hyperlipidemia (10) Hypertension Assessment/Plan: -Amlodipine -low Na diet Code(s): I10 - ESSENTIAL (PRIMARY) HYPERTENSION Qualifiers: Hypertension type: unspecified Qualified Code(s): I10 - Essential (primary ) hypertension (11) BPH (benign prostatic hyperplasia) Assessment/Plan: -Tamsulosin Code(s): N40.0 - BENIGN PROSTATIC HYPERPLASIA WITHOUT LOWER URINRY TRACT SYMP (12) Diabetes Assessment/Plan: -BGM ACHS -Levemir -ISS Code(s): E11.9 - TYPE 2 DIABETES MELLITUS WITHOUT COMPLICATIONS Qualifiers: Diabetes mellitus type: other specified (including TAN) Diabetes mellitus jail insulin use: unspecified termite helper insulin use status Diabetes mellitus complication status: with other specified complication Qualified Code (s): E13.69 - Other specified diabetes mellitus with other specified complication (13) UTI (urinary tract infection) Assessment/Plan: -ID on board -leukocytosis -afebrile -UA shows 3+ leuks, 3+ protein, 2+ bilirubin -UC neg Code(s): N39.0 - URINARY TRACT INFECTION, SITE NOT SPECIFIED (14) BEKA (acute kidney injury) Assessment/Plan: -Renal on board -BUN/Cr 11.4/0.6 -monitor real function Code(s): N17.9 - ACUTE KIDNEY FAILURE, UNSPECIFIED (15) Diarrhea Assessment/Plan: -stool culture neg -c diff antigen positive, toxin neg -vancomycin PO q6h Code(s): R19.7 - DIARRHEA, UNSPECIFIED (16) Rash Assessment/Plan: -reconsult ID -hold Actigal -Calamine lotion Code(s): R21 - RASH AND OTHER NONSPECIFIC SKIN ERUPTION Assessment/Plan see problem list dvt ppx
[2019-10-10] MEDS: predniSONE 10 MG TABLET (UD) PO SCH (11:03)
[2019-10-10] MEDS: NYSTATIN/TRIAMCINOLONE TOPICAL CREAM 15 GM TUBE TP SCH ×2 (11:03→21:42)
[2019-10-10] MEDS: NYSTATIN POWDER 100,000 UNITS/GM - 15 GM TOPICAL POWDER TP SCH ×2 (11:04→22:35)
--- NOTE | 2019-10-10 11:06 | PN ---
Progress Note (short form) - Note Progress Note: PULMONARY Breathing slowly improving. On/off BiPAP for comfort. Vital Signs Period Temp Pulse Resp BP Sys/Enamorado Pulse Ox Last 24 Hr 97.9 F-98.8 F 92-112 18-20 108-129/63-83 94-100 Gen: NAD at rest Heart: RRR Lung: decreased breath sounds at the bases Abd: soft, nontender Ext: no edema CBC, BMP 10/10/19 06:40 10/10/19 06:40 Active Medications Acetaminophen (Tylenol -) 650 mg PO Q6H PRN PRN Reason: FEVER OR PAIN LEVEL 1 - 3 Albuterol Sulfate (Ventolin 0.042trength) -) 1 amp NEB Q6H PRN PRN Reason: SHORT OF BREATH/WHEEZING Last Admin: 10/10/19 07:35 Dose: 1 amp Apixaban (Eliquis -) 5 mg PO BID [facility] Last Admin: 10/09/19 21:20 Dose: 5 mg Atorvastatin Calcium (Lipitor -) 40 mg PO HS [facility] Last Admin: 10/09/19 22:27 Dose: 40 mg Benzocaine/Menthol (Cepacol Lozenge -) 1 each MM Q2H PRN PRN Reason: SORE THROAT Colchicine (Colcrys) 0.6 mg PO DAILY [facility] Last Admin: 10/09/19 11:36 Dose: 0.6 mg Diltiazem HCl (Cardizem Cd -) 180 mg PO DAILY [facility] Last Admin: 10/09/19 11:37 Dose: 180 mg Duloxetine HCl (Cymbalta -) 40 mg PO DAILY [facility] Last Admin: 10/09/19 11:37 Dose: 40 mg Furosemide (Lasix -) 40 mg PO DAILY [facility] Last Admin: 10/09/19 11:36 Dose: 40 mg Gabapentin (Neurontin -) 300 mg PO TID [facility] Last Admin: 10/10/19 06:52 Dose: 300 mg Insulin Aspart (Novolog Vial Sliding Scale -) 1 vial SQ ACHS [facility]; Protocol Last Admin: 10/10/19 06:53 Dose: Not Given Insulin Detemir (Levemir Vial) 10 units SQ 0700 [facility] Last Admin: 10/10/19 06:52 Dose: 10 units Lidocaine (Lidoderm Patch -) 1 patch TP DAILY [facility] Last Admin: 10/09/19 11:37 Dose: 1 patch Melatonin (Melatonin) 5 mg PO HS PRN PRN Reason: INSOMNIA Last Admin: 10/09/19 21:21 Dose: 5 mg Metoprolol Succinate (Toprol Xl -) 50 mg PO DAILY [facility] Last Admin: 10/09/19 11:36 Dose: 50 mg Miscellaneous (Lidoderm Patch Removal) 1 each MC DAILY@2200 [facility] Last Admin: 10/09/19 22:27 Dose: 1 each Multivitamins/Minerals/Vitamin C (Tab-A-Vit -) 1 tab PO DAILY [facility] Last Admin: 10/09/19 11:38 Dose: 1 tab Nystatin (Nystop Powder -) 1 applic TP BID [facility] Last Admin: 10/09/19 21:29 Dose: 1 applic Nystatin/Triamcinolone Acetonide (Mycolog Ii Cream -) 1 applic TP BID [facility] Last Admin: 10/09/19 21:30 Dose: 1 applic Pantoprazole Sodium (Protonix -) 40 mg PO DAILY [facility] Last Admin: 10/09/19 11:36 Dose: 40 mg Prednisone (Deltasone -) 15 mg PO DAILY [facility] Last Admin: 10/09/19 11:37 Dose: 15 mg Tamsulosin HCl (Flomax -) 0.4 mg PO DAILY@0830 [facility] Last Admin: 10/09/19 11:36 Dose: 0.4 mg Trazodone HCl (Desyrel -) 50 mg PO HS [facility] Last Admin: 10/09/19 21:20 Dose: 50 mg Ursodiol (Actigal -) 300 mg PO BID [facility] Last Admin: 10/09/19 21:20 Dose: 300 mg Vancomycin HCl (Vancomycin Oral Solution) 125 mg PO Q6HPO [facility] Last Admin: 10/10/19 06:52 Dose: 125 mg A/P Acute Hypoxic and Hypercapneic Respiratory Failure Acute Pulmonary Edema Acute on Chronic Diastolic Heart Failure Atrial Fibrillation with RVR r/o Pneumonia new bilateral patchy infiltrates UTI Acute Kidney Injury COPD Paget's Disease DM Anemia - rate control per cardiology - continue lasix - monitor urine output, creatinine - continue anticoagulation - BiPAP as needed to assist in work of breathing - O2 to keep SpO2 >90% - completed antibiotics - taper off prednisone - inhaled bronchodilators - can be discharged to [facility] from pulmonary standpoint with BiPAP as needed
[2019-10-10] MEDS: DULoxetine HCL 20 MG CAPSULE.DR PO SCH (11:14)
--- NOTE | 2019-10-10 12:46 | PN ---
Progress Note (short form) - Note Progress Note: Renal follow up for BEKA Pt seen and examined at the bedside awake and alert offers no acute complaints no diarrhea today Vital Signs Temperature 98.0 F 10/10/19 06:00 Pulse Rate 106 H 10/10/19 06:00 Respiratory Rate 18 10/10/19 06:00 Blood Pressure 108/65 10/10/19 06:00 O2 Sat by Pulse Oximetry (%) 100 10/10/19 12:00 Intake & Output 10/07/19 10/08/19 10/09/19 10/10/19 23:59 23:59 23:59 23:59 Intake Total 800 0 450 100 Balance 800 0 450 100 NAD RRR, no M/R Dec BS at lung bases soft, obese, NT/ND trace edema in LE CBC, BMP 10/10/19 06:40 10/10/19 06:40 Current Medications Acetaminophen (Tylenol -) 650 mg PO Q6H PRN PRN Reason: FEVER OR PAIN LEVEL 1 - 3 Albuterol Sulfate (Ventolin 0.042trength) -) 1 amp NEB Q6H PRN PRN Reason: SHORT OF BREATH/WHEEZING Last Admin: 10/10/19 12:00 Dose: 1 amp Apixaban (Eliquis -) 5 mg PO BID [facility] Last Admin: 10/10/19 11:02 Dose: 5 mg Atorvastatin Calcium (Lipitor -) 40 mg PO HS [facility] Last Admin: 10/09/19 22:27 Dose: 40 mg Benzocaine/Menthol (Cepacol Lozenge -) 1 each MM Q2H PRN PRN Reason: SORE THROAT Colchicine (Colcrys) 0.6 mg PO DAILY [facility] Last Admin: 10/10/19 11:02 Dose: 0.6 mg Diltiazem HCl (Cardizem Cd -) 180 mg PO DAILY [facility] Last Admin: 10/10/19 11:03 Dose: 180 mg Duloxetine HCl (Cymbalta -) 40 mg PO DAILY [facility] Last Admin: 10/10/19 11:14 Dose: 40 mg Furosemide (Lasix -) 40 mg PO DAILY [facility] Last Admin: 10/10/19 11:01 Dose: 40 mg Gabapentin (Neurontin -) 300 mg PO TID [facility] Last Admin: 10/10/19 06:52 Dose: 300 mg Insulin Aspart (Novolog Vial Sliding Scale -) 1 vial SQ ACHS [facility]; Protocol Last Admin: 10/10/19 06:53 Dose: Not Given Insulin Detemir (Levemir Vial) 10 units SQ 0700 [facility] Last Admin: 10/10/19 06:52 Dose: 10 units Lidocaine (Lidoderm Patch -) 1 patch TP DAILY [facility] Last Admin: 10/10/19 11:00 Dose: 1 patch Melatonin (Melatonin) 5 mg PO HS PRN PRN Reason: INSOMNIA Last Admin: 10/09/19 21:21 Dose: 5 mg Metoprolol Succinate (Toprol Xl -) 50 mg PO DAILY [facility] Last Admin: 10/10/19 11:02 Dose: 50 mg Miscellaneous (Lidoderm Patch Removal) 1 each MC DAILY@2200 [facility] Last Admin: 10/09/19 22:27 Dose: 1 each Multivitamins/Minerals/Vitamin C (Tab-A-Vit -) 1 tab PO DAILY [facility] Last Admin: 10/10/19 11:02 Dose: 1 tab Nystatin (Nystop Powder -) 1 applic TP BID [facility] Last Admin: 10/10/19 11:04 Dose: 1 applic Nystatin/Triamcinolone Acetonide (Mycolog Ii Cream -) 1 applic TP BID [facility] Last Admin: 10/10/19 11:03 Dose: 1 applic Pantoprazole Sodium (Protonix -) 40 mg PO DAILY [facility] Last Admin: 10/10/19 11:02 Dose: 40 mg Potassium Chloride (K-Dur -) 20 meq PO DAILY [facility] Prednisone (Deltasone -) 15 mg PO DAILY [facility] Last Admin: 10/10/19 11:03 Dose: 15 mg Tamsulosin HCl (Flomax -) 0.4 mg PO DAILY@0830 [facility] Last Admin: 10/10/19 11:01 Dose: 0.4 mg Trazodone HCl (Desyrel -) 50 mg PO HS [facility] Last Admin: 10/09/19 21:20 Dose: 50 mg Ursodiol (Actigal -) 300 mg PO BID [facility] Last Admin: 10/10/19 11:02 Dose: 300 mg Vancomycin HCl (Vancomycin Oral Solution) 125 mg PO Q6HPO [facility] Last Admin: 10/10/19 06:52 Dose: 125 mg 78 year old gentleman with history of CHF with reduced LVEF, Afib, Anemia and DM with recent admission for gross hematuria and BEKA now presents with diffuse body pain and joint pain with BEKA. 1. Acute kidney injury now resolved 2. Joint pains 3. CHF with reduced LVEF 4. Leukocytosis 5. Anemia 6. Hypophosphatemia 7. Hypokalemia 8. Hypomagnesemia 9. C diff colitis Renal function stable continue Lasix daily, will add daily KCL as well Continue flomax daily no renal contraindication to discharge. Thank you Saul Diaz DO
--- NOTE | 2019-10-10 13:27 | PN ---
Progress Note (short form) - Note Progress Note: asked to f/u by nurse patient with itchy rash diarrhea has diminished off miralax and senna leukocytosis is improved on steroid taper Vital Signs Period Temp Pulse Resp BP Sys/Enamorado Pulse Ox Last 24 Hr 97.9 F-98.8 F 92-112 18-20 108-129/55-83 94-100 cor-rrr lungs decreased bs at bases abd soft,nt ext no edema skin - diffuse macular rash abdomen, arms, legs and back- patient describes as itchy CBC, BMP 10/10/19 06:40 10/10/19 06:40 Microbiology 10/03/19 14:00 Stool Gram Stain - Final 10/03/19 14:00 Stool Clostridioides difficile Antigen - Final 10/03/19 14:00 Stool Clostridioides difficile Toxin Assay - Final 10/03/19 14:00 Stool Salmonella/Shigella Culture - Final NO GROWTH OF SALMONELLA OR SHIGELLA SPECIES OBTAINED 10/03/19 14:00 Stool Campylobacter Culture - Final NO GROWTH OF CAMPYLOBACTER SPECIES OBTAINED 10/03/19 14:00 Stool Yersinia Culture - Final NO GROWTH OF YERSINIA SPECIES OBTAINED 10/03/19 14:00 Stool Vibrio Culture - Final NO GROWTH OF VIBRIO SPECIES OBTAINED 10/03/19 14:00 Stool Escherichia coli 0157 Culture - Final NO GROWTH OF E COLI 0157 OBTAINED 09/21/19 00:00 Blood - Peripheral Venous Blood Culture - Final NO GROWTH AFTER 5 DAYS INCUBATION 09/21/19 00:00 Blood - Peripheral Venous Blood Culture - Final NO GROWTH AFTER 5 DAYS INCUBATION 09/21/19 18:00 Synovial Fluid - Knee Gram Stain - Final 09/21/19 18:00 Synovial Fluid - Knee Body Fluid Culture - Final NO GROWTH OF AEROBIC ORGANISMS AFTER 48 HOURS INCUBATION 09/21/19 18:00 Synovial Fluid - Knee Anaerobic Culture - Final NO ANAEROBES WERE ISOLATED 09/22/19 19:45 Urine For Antigen Detection Legionella Antigen - Final 09/22/19 19:45 Urine For Antigen Detection Streptococcus pneumoniae Antigen (M - Final 09/21/19 18:40 Nares - Mrsa Screen - Right MRSA Screen - Final NO MRSA ISOLATED 09/21/19 18:40 Nares - Mrsa Screen - Left MRSA Screen - Final NO MRSA ISOLATED 09/21/19 00:28 Urine - Urine - Catheterized Urine Culture - Final NO GROWTH OBTAINED cxray unchanged synovial fluid +urate crystals hida- no cholycysititis meds reviewed a/p rash- c/w drug rash- doubt po vanco as it is poorly absorbed, ?actigall- consider d/c, consider derm evaluation if rash persists after d/c actigall then would d/c po vancomycin as well leukocytosis- suspect steroids- improving with steroid taper +cdiff antigen- on po vancomycin-day 6- loose stools improving afib- management per cardiology gouty polyarticular arthritis- improved on steroids anemia- s/p transfusion observe off antibiotics continue bipap please call back if needed
[2019-10-10] MEDS: POTASSIUM CHLORIDE TABS 20 MEQ TABLET.ER (FP) PO SCH (14:15)
--- NOTE | 2019-10-10 16:06 | PN ---
Progress Note, Physician Chief Complaint: Cardiology - Current Medication List Current Medications: Active Medications Acetaminophen (Tylenol -) 650 mg PO Q6H PRN PRN Reason: FEVER OR PAIN LEVEL 1 - 3 Albuterol Sulfate (Ventolin 0.042trength) -) 1 amp NEB Q6H PRN PRN Reason: SHORT OF BREATH/WHEEZING Last Admin: 10/10/19 12:00 Dose: 1 amp Apixaban (Eliquis -) 5 mg PO BID [facility] Last Admin: 10/10/19 11:02 Dose: 5 mg Atorvastatin Calcium (Lipitor -) 40 mg PO HS [facility] Last Admin: 10/09/19 22:27 Dose: 40 mg Benzocaine/Menthol (Cepacol Lozenge -) 1 each MM Q2H PRN PRN Reason: SORE THROAT Calamine (Calamine 8% Topical Lotion -) 1 applic TP BID PRN PRN Reason: FOR ITCHING Colchicine (Colcrys) 0.6 mg PO DAILY [facility] Last Admin: 10/10/19 11:02 Dose: 0.6 mg Diltiazem HCl (Cardizem Cd -) 180 mg PO DAILY [facility] Last Admin: 10/10/19 11:03 Dose: 180 mg Duloxetine HCl (Cymbalta -) 40 mg PO DAILY [facility] Last Admin: 10/10/19 11:14 Dose: 40 mg Furosemide (Lasix -) 40 mg PO DAILY [facility] Last Admin: 10/10/19 11:01 Dose: 40 mg Gabapentin (Neurontin -) 300 mg PO TID [facility] Last Admin: 10/10/19 14:16 Dose: 300 mg Insulin Aspart (Novolog Vial Sliding Scale -) 1 vial SQ ACHS [facility]; Protocol Last Admin: 10/10/19 12:55 Dose: Not Given Insulin Detemir (Levemir Vial) 10 units SQ 0700 [facility] Last Admin: 10/10/19 06:52 Dose: 10 units Lidocaine (Lidoderm Patch -) 1 patch TP DAILY [facility] Last Admin: 10/10/19 11:00 Dose: 1 patch Melatonin (Melatonin) 5 mg PO HS PRN PRN Reason: INSOMNIA Last Admin: 10/09/19 21:21 Dose: 5 mg Metoprolol Succinate (Toprol Xl -) 50 mg PO DAILY [facility] Last Admin: 10/10/19 11:02 Dose: 50 mg Miscellaneous (Lidoderm Patch Removal) 1 each MC DAILY@2200 [facility] Last Admin: 10/09/19 22:27 Dose: 1 each Multivitamins/Minerals/Vitamin C (Tab-A-Vit -) 1 tab PO DAILY [facility] Last Admin: 10/10/19 11:02 Dose: 1 tab Nystatin (Nystop Powder -) 1 applic TP BID [facility] Last Admin: 10/10/19 11:04 Dose: 1 applic Nystatin/Triamcinolone Acetonide (Mycolog Ii Cream -) 1 applic TP BID [facility] Last Admin: 10/10/19 11:03 Dose: 1 applic Pantoprazole Sodium (Protonix -) 40 mg PO DAILY [facility] Last Admin: 10/10/19 11:02 Dose: 40 mg Potassium Chloride (K-Dur -) 20 meq PO DAILY [facility] Last Admin: 10/10/19 14:15 Dose: 20 meq Prednisone (Deltasone -) 15 mg PO DAILY [facility] Last Admin: 10/10/19 11:03 Dose: 15 mg Tamsulosin HCl (Flomax -) 0.4 mg PO DAILY@0830 [facility] Last Admin: 10/10/19 11:01 Dose: 0.4 mg Trazodone HCl (Desyrel -) 50 mg PO HS [facility] Last Admin: 10/09/19 21:20 Dose: 50 mg Ursodiol (Actigal -) 300 mg PO BID [facility] Last Admin: 10/10/19 11:02 Dose: 300 mg Vancomycin HCl (Vancomycin Oral Solution) 125 mg PO Q6HPO [facility] Last Admin: 10/10/19 14:15 Dose: 125 mg - Objective Vital Signs: Vital Signs Temperature 98.1 F 10/10/19 14:42 Pulse Rate 115 H 10/10/19 14:42 Respiratory Rate 18 10/10/19 14:42 Blood Pressure 124/61 10/10/19 14:42 O2 Sat by Pulse Oximetry (%) 100 10/10/19 12:00 Eyes: Yes: WNL, Conjunctiva Clear, EOM Intact HENT: Yes: WNL, Atraumatic, Normocephalic Neck: Yes: WNL, Supple, Trachea Midline Cardiovascular: Yes: WNL, Regular Rate and Rhythm Respiratory: Yes: WNL, Regular, CTA Bilaterally Gastrointestinal: Yes: WNL, Normal Bowel Sounds Genitourinary: Yes: WNL Musculoskeletal: Yes: WNL Extremities: Yes: WNL Edema: No Integumentary: Yes: WNL Neurological: Yes: WNL, Alert, Oriented ...Motor Strength: WNL Psychiatric: Yes: WNL Labs: CBC, BMP 10/10/19 06:40 10/10/19 06:40 INR, PTT INR 3.09 (0.83-1.09) H 09/20/19 22:24 Assessment/Plan - Problems r/o chf h/o high BNP sob will rechec bnp start lasix IV 20 mg monitor bnp Code(s): E86.0 - DEHYDRATION (2) Acute on chronic respiratory failure with hypoxia and hypercapnia Assessment/Plan: on Bipap nightly. Encourage physical and pulmonary rehabilitation. Code(s): J96.21 - ACUTE AND CHRONIC RESPIRATORY FAILURE WITH HYPOXIA; J96.22 - ACUTE AND CHRONIC RESPIRATORY FAILURE WITH HYPERCAPNIA (3) Leukocytosis Code(s): D72.829 - ELEVATED WHITE BLOOD CELL COUNT, UNSPECIFIED Qualifiers: Leukocytosis type: unspecified Qualified Code(s): D72.829 - Elevated white blood cell count, unspecified (4) Paget's bone disease Code(s): M88.9 - OSTEITIS DEFORMANS OF UNSPECIFIED BONE (5) Pneumonia Assessment/Plan: on antibitotics per ID. Code(s): J18.9 - PNEUMONIA, UNSPECIFIED ORGANISM Qualifiers: Pneumonia type: due to unspecified organism Laterality: left Lung location: lower lobe of lung Qualified Code(s): J18.9 - Pneumonia, unspecified organism (6) Depression Code(s): F32.9 - MAJOR DEPRESSIVE DISORDER, SINGLE EPISODE, UNSPECIFIED (7) Diabetes Code(s): E11.9 - TYPE 2 DIABETES MELLITUS WITHOUT COMPLICATIONS Qualifiers: Diabetes mellitus type: other specified (including TAN) Diabetes mellitus [facility] insulin use: unspecified long term acute care registered nurse insulin use status Diabetes mellitus complication status: with other specified complication Qualified Code (s): E13.69 - Other specified diabetes mellitus with other specified complication (8) Diastolic CHF Code(s): I50.30 - UNSPECIFIED DIASTOLIC (CONGESTIVE) HEART FAILURE (9) HLD (hyperlipidemia) Assessment/Plan: on statinj Code(s): E78.5 - HYPERLIPIDEMIA, UNSPECIFIED Qualifiers: Hyperlipidemia type: other hyperlipidemia Qualified Code(s): E78.49 - Other hyperlipidemia; E78.4 - Other hyperlipidemia (10) Atrial fibrillation Assessment/Plan: Brief periods of AF with RVR. Will increase diltiazem CD to 130 mg daily (and stop amlodipine, a 2nd calcium channel quirino). Continue metoprolol ER. Continue apixaban for anticoagulation (and stop ASA: increased risk of bleed; anemia; no hx FL, PCI). Code(s): I48.91 - UNSPECIFIED ATRIAL FIBRILLATION (11) NSVT (nonsustained ventricular tachycardia) Assessment/Plan: breif, nonsustanted runs during SVT/AF incident necessitatin ICU earlier this admission. ECHO: normal LVEF. On metoprolol and diltiazem. Maintain electrolytes.; control BP. Coronary artery evaluation when stable. Code(s): I47.2 - VENTRICULAR TACHYCARDIA
[2019-10-10] MEDS: CALAMINE 8% TOPICAL LOTION 177 ML BOTTLE TP PRN (17:36)
[2019-10-10] MEDS: ATORVASTATIN CA 40 MG TABLET (FP) PO SCH (21:41)
[2019-10-10] MEDS: LIDOCAINE PATCH REMOVAL MC SCH (21:42)
[2019-10-10] MEDS: traZODone HCL 50 MG TABLET (FP) PO SCH (21:42)
[2019-10-11] MEDS: VANCOMYCIN 250 MG/5 ML ORAL SOLUTION PO SCH ×3 (00:38→11:32)
[2019-10-11] MEDS: GABAPENTIN 300 MG CAPSULE (FP) PO SCH ×2 (05:53→15:02)
[2019-10-11] MEDS: INSULIN (LEVEMIR) 100 UNITS/ML UNITS SQ SCH (06:00)
[2019-10-11] MEDS: INSULIN SLIDING SCALE (NOVOLOG) 1 VIAL SQ SCH ×3 (06:00→17:01)
[2019-10-11] MEDS: COLCHICINE 0.6 MG CAP PO SCH (10:23)
[2019-10-11] MEDS: PANTOPRAZOLE 40 MG TABLET (FP) PO SCH (10:23)
[2019-10-11] MEDS: FUROSEMIDE 20 MG TABLET (FP) PO SCH (10:23)
[2019-10-11] MEDS: POTASSIUM CHLORIDE TABS 20 MEQ TABLET.ER (FP) PO SCH (10:24)
[2019-10-11] MEDS: TAMSULOSIN HCL 0.4 MG CAP PO SCH (10:24)
[2019-10-11] MEDS: LIDOCAINE 5% TOPICAL PATCH TP SCH (10:24)
[2019-10-11] MEDS: predniSONE 10 MG TABLET (UD) PO SCH (10:24)
[2019-10-11] MEDS: APIXABAN 5 MG TABLET PO SCH (10:24)
[2019-10-11] MEDS: MULTIVITAMINS (DAILY MVI) TABLET (FP) PO SCH (10:24)
[2019-10-11] MEDS: NYSTATIN POWDER 100,000 UNITS/GM - 15 GM TOPICAL POWDER TP SCH (10:25)
--- NOTE | 2019-10-11 11:06 | PN ---
Progress Note (short form) - Note Progress Note: PULMONARY Breathing slowly improving. Used BiPAP overnight for comfort. Anxious about leaving hospital. Vital Signs Period Temp Pulse Resp BP Sys/Enam[place]ado Pulse Ox Last 24 Hr 97.8 F-98.6 F 88-115 18-20 116-137/61-85 96-100 Gen: NAD at rest Heart: RRR Lung: decreased breath sounds at the bases Abd: soft, nontender Ext: no edema CBC, BMP 10/10/19 06:40 10/10/19 06:40 Active Medications Acetaminophen (Tylenol -) 650 mg PO Q6H PRN PRN Reason: FEVER OR PAIN LEVEL 1 - 3 Apixaban (Eliquis -) 5 mg PO BID [facility] Last Admin: 10/11/19 10:24 Dose: 5 mg Atorvastatin Calcium (Lipitor -) 40 mg PO HS [facility] Last Admin: 10/10/19 21:41 Dose: 40 mg Benzocaine/Menthol (Cepacol Lozenge -) 1 each MM Q2H PRN PRN Reason: SORE THROAT Calamine (Calamine 8% Topical Lotion -) 1 applic TP BID PRN PRN Reason: FOR ITCHING Last Admin: 10/10/19 17:36 Dose: 1 appful Colchicine (Colcrys) 0.6 mg PO DAILY [facility] Last Admin: 10/11/19 10:23 Dose: 0.6 mg Diltiazem HCl (Cardizem Cd -) 180 mg PO DAILY [facility] Last Admin: 10/11/19 10:24 Dose: 180 mg Duloxetine HCl (Cymbalta -) 40 mg PO DAILY [facility] Last Admin: 10/10/19 11:14 Dose: 40 mg Furosemide (Lasix -) 40 mg PO DAILY [facility] Last Admin: 10/11/19 10:23 Dose: 40 mg Gabapentin (Neurontin -) 300 mg PO TID [facility] Last Admin: 10/11/19 05:53 Dose: 300 mg Insulin Aspart (Novolog Vial Sliding Scale -) 1 vial SQ ACHS [facility]; Protocol Last Admin: 10/11/19 06:00 Dose: Not Given Insulin Detemir (Levemir Vial) 10 units SQ 0700 [facility] Last Admin: 10/11/19 06:00 Dose: 10 units Lidocaine (Lidoderm Patch -) 1 patch TP DAILY [facility] Last Admin: 10/11/19 10:24 Dose: 1 patch Melatonin (Melatonin) 5 mg PO HS PRN PRN Reason: INSOMNIA Last Admin: 10/09/19 21:21 Dose: 5 mg Metoprolol Succinate (Toprol Xl -) 50 mg PO DAILY [facility] Last Admin: 10/11/19 10:24 Dose: 50 mg Miscellaneous (Lidoderm Patch Removal) 1 each MC DAILY@2200 [facility] Last Admin: 10/10/19 21:42 Dose: 1 each Multivitamins/Minerals/Vitamin C (Tab-A-Vit -) 1 tab PO DAILY [facility] Last Admin: 10/11/19 10:24 Dose: 1 tab Nystatin (Nystop Powder -) 1 applic TP BID [facility] Last Admin: 10/11/19 10:25 Dose: 1 applic Nystatin/Triamcinolone Acetonide (Mycolog Ii Cream -) 1 applic TP BID [facility] Last Admin: 10/10/19 21:42 Dose: 1 applic Pantoprazole Sodium (Protonix -) 40 mg PO DAILY [facility] Last Admin: 10/11/19 10:23 Dose: 40 mg Potassium Chloride (K-Dur -) 20 meq PO DAILY [facility] Last Admin: 10/11/19 10:24 Dose: 20 meq Prednisone (Deltasone -) 15 mg PO DAILY [facility] Last Admin: 10/11/19 10:24 Dose: 15 mg Tamsulosin HCl (Flomax -) 0.4 mg PO DAILY@0830 [facility] Last Admin: 10/11/19 10:24 Dose: 0.4 mg Trazodone HCl (Desyrel -) 50 mg PO HS [facility] Last Admin: 10/10/19 21:42 Dose: 50 mg Ursodiol (Actigal -) 300 mg PO BID [facility] Last Admin: 10/10/19 11:02 Dose: 300 mg Vancomycin HCl (Vancomycin Oral Solution) 125 mg PO Q6HPO [facility] Last Admin: 10/11/19 05:53 Dose: 125 mg A/P Acute Hypoxic and Hypercapneic Respiratory Failure improving Acute Pulmonary Edema resolved Acute on Chronic Diastolic Heart Failure Atrial Fibrillation with RVR r/o Pneumonia new bilateral patchy infiltrates UTI Acute Kidney Injury COPD Paget's Disease DM Anemia - rate control per cardiology - continue lasix - monitor urine output, creatinine - continue anticoagulation - BiPAP as needed to assist in work of breathing - O2 to keep SpO2 >90% - completed antibiotics - taper off prednisone - inhaled bronchodilators - can be discharged to SNF from pulmonary standpoint with BiPAP as needed
--- NOTE | 2019-10-11 11:06 | PN ---
Progress Note, Physician Chief Complaint: SOB UTI Anemia History of Present Illness: Now has generalized rash, which is improved - Current Medication List Current Medications: Active Medications Acetaminophen (Tylenol -) 650 mg PO Q6H PRN PRN Reason: FEVER OR PAIN LEVEL 1 - 3 Apixaban (Eliquis -) 5 mg PO BID [facility] Last Admin: 10/11/19 10:24 Dose: 5 mg Atorvastatin Calcium (Lipitor -) 40 mg PO HS [facility] Last Admin: 10/10/19 21:41 Dose: 40 mg Benzocaine/Menthol (Cepacol Lozenge -) 1 each MM Q2H PRN PRN Reason: SORE THROAT Calamine (Calamine 8% Topical Lotion -) 1 applic TP BID PRN PRN Reason: FOR ITCHING Last Admin: 10/10/19 17:36 Dose: 1 appful Colchicine (Colcrys) 0.6 mg PO DAILY [facility] Last Admin: 10/11/19 10:23 Dose: 0.6 mg Diltiazem HCl (Cardizem Cd -) 180 mg PO DAILY [facility] Last Admin: 10/11/19 10:24 Dose: 180 mg Duloxetine HCl (Cymbalta -) 40 mg PO DAILY [facility] Last Admin: 10/10/19 11:14 Dose: 40 mg Furosemide (Lasix -) 40 mg PO DAILY [facility] Last Admin: 10/11/19 10:23 Dose: 40 mg Gabapentin (Neurontin -) 300 mg PO TID [facility] Last Admin: 10/11/19 05:53 Dose: 300 mg Insulin Aspart (Novolog Vial Sliding Scale -) 1 vial SQ ACHS [facility]; Protocol Last Admin: 10/11/19 06:00 Dose: Not Given Insulin Detemir (Levemir Vial) 10 units SQ 0700 [facility] Last Admin: 10/11/19 06:00 Dose: 10 units Lidocaine (Lidoderm Patch -) 1 patch TP DAILY [facility] Last Admin: 10/11/19 10:24 Dose: 1 patch Melatonin (Melatonin) 5 mg PO HS PRN PRN Reason: INSOMNIA Last Admin: 10/09/19 21:21 Dose: 5 mg Metoprolol Succinate (Toprol Xl -) 50 mg PO DAILY [facility] Last Admin: 10/11/19 10:24 Dose: 50 mg Miscellaneous (Lidoderm Patch Removal) 1 each MC DAILY@2200 [facility] Last Admin: 10/10/19 21:42 Dose: 1 each Multivitamins/Minerals/Vitamin C (Tab-A-Vit -) 1 tab PO DAILY [facility] Last Admin: 10/11/19 10:24 Dose: 1 tab Nystatin (Nystop Powder -) 1 applic TP BID [facility] Last Admin: 10/11/19 10:25 Dose: 1 applic Nystatin/Triamcinolone Acetonide (Mycolog Ii Cream -) 1 applic TP BID [facility] Last Admin: 10/10/19 21:42 Dose: 1 applic Pantoprazole Sodium (Protonix -) 40 mg PO DAILY [facility] Last Admin: 10/11/19 10:23 Dose: 40 mg Potassium Chloride (K-Dur -) 20 meq PO DAILY [facility] Last Admin: 10/11/19 10:24 Dose: 20 meq Prednisone (Deltasone -) 15 mg PO DAILY [facility] Last Admin: 10/11/19 10:24 Dose: 15 mg Tamsulosin HCl (Flomax -) 0.4 mg PO DAILY@0830 [facility] Last Admin: 10/11/19 10:24 Dose: 0.4 mg Trazodone HCl (Desyrel -) 50 mg PO HS [facility] Last Admin: 10/10/19 21:42 Dose: 50 mg Ursodiol (Actigal -) 300 mg PO BID [facility] Last Admin: 10/10/19 11:02 Dose: 300 mg Vancomycin HCl (Vancomycin Oral Solution) 125 mg PO Q6HPO [facility] Last Admin: 10/11/19 05:53 Dose: 125 mg - Objective Vital Signs: Vital Signs Temperature 97.8 F 10/11/19 10:51 Pulse Rate 103 H 10/11/19 10:51 Respiratory Rate 20 10/11/19 10:51 Blood Pressure 137/85 10/11/19 10:51 O2 Sat by Pulse Oximetry (%) 100 10/11/19 10:51 Constitutional: Yes: Well Nourished, No Distress, Calm Cardiovascular: Yes: Regular Rate and Rhythm Respiratory: Yes: Regular, On Nasal O2, SOB on Exertion Gastrointestinal: Yes: Normal Bowel Sounds, Soft, Abdomen, Obese Genitourinary: Yes: Incontinence Musculoskeletal: Yes: WNL Extremities: Yes: WNL Edema: No Peripheral Pulses WNL: Yes Neurological: Yes: Alert, Oriented Psychiatric: Yes: Alert, Oriented Labs: CBC, BMP 10/10/19 06:40 10/10/19 06:40 INR, PTT INR 3.09 (0.83-1.09) H 09/20/19 22:24 Problem List - Problems (1) Leukocytosis Assessment/Plan: -monitor trend -Seen by ID -Cultures: Microbiology 09/21/19 00:00 Blood - Peripheral Venous Blood Culture - Preliminary NO GROWTH OBTAINED AFTER 72 HOURS, INCUBATION TO CONTINUE FOR 2 DAYS. 09/21/19 00:00 Blood - Peripheral Venous Blood Culture - Preliminary NO GROWTH OBTAINED AFTER 72 HOURS, INCUBATION TO CONTINUE FOR 2 DAYS. 09/21/19 18:00 Synovial Fluid - Knee Gram Stain - Final 09/21/19 18:00 Synovial Fluid - Knee Body Fluid Culture - Preliminary NO AEROBIC GROWTH, 24 HRS 09/22/19 19:45 Urine For Antigen Detection Legionella Antigen - Final 09/22/19 19:45 Urine For Antigen Detection Streptococcus pneumoniae Antigen (M - Final 09/21/19 18:40 Nares - Mrsa Screen - Right MRSA Screen - Final NO MRSA ISOLATED 09/21/19 18:40 Nares - Mrsa Screen - Left MRSA Screen - Final NO MRSA ISOLATED 09/21/19 00:28 Urine - Urine - Catheterized Urine Culture - Final NO GROWTH OBTAINED -Tylenol for fever>100.0F Problems reviewed: Yes Code(s): D72.829 - ELEVATED WHITE BLOOD CELL COUNT, UNSPECIFIED Qualifiers: Leukocytosis type: unspecified Qualified Code(s): D72.829 - Elevated white blood cell count, unspecified (2) Paget's bone disease Assessment/Plan: -Hematology consult Problems reviewed: Yes Code(s): M88.9 - OSTEITIS DEFORMANS OF UNSPECIFIED BONE (3) Pneumonia Assessment/Plan: -resolved -Last CXR negative for infiltrates -Pulmonary consult -Bronchodilators -Nasal O2 to keep SpO2>90% -CT chest BLLL infiltrates -ID on board -Legionella negative Problems reviewed: Yes Code(s): J18.9 - PNEUMONIA, UNSPECIFIED ORGANISM Qualifiers: Pneumonia type: due to unspecified organism Laterality: left Lung location: lower lobe of lung Qualified Code(s): J18.9 - Pneumonia, unspecified organism (4) BEKA (acute kidney injury) Assessment/Plan: -acute on chronic renal insufficiency -Nephrology consult -Monitor trend -Renal US without signs of obstruction Problems reviewed: Yes Code(s): N17.9 - ACUTE KIDNEY FAILURE, UNSPECIFIED (5) Anemia Assessment/Plan: -Chronic, multifactorial -Iron deficiency in the past -Iron levels high now, will hold iron supplement Problems reviewed: Yes Code(s): D64.9 - ANEMIA, UNSPECIFIED Qualifiers: Anemia type: iron deficiency (6) Atrial fibrillation Assessment/Plan: -paroxysmal -chronic -On eliquis 5 mg po bid Problems reviewed: Yes Code(s): I48.91 - UNSPECIFIED ATRIAL FIBRILLATION (7) BPH (benign prostatic hyperplasia) Assessment/Plan: -On tamsulosin -Seen by Dr Omar Friedman in the past Problems reviewed: Yes Code(s): N40.0 - BENIGN PROSTATIC HYPERPLASIA WITHOUT LOWER URINRY TRACT SYMP (8) Diabetes Assessment/Plan: -Last A1c at 6.4 -BGM AC HS because of medrol -Diabetic low sodium diet Problems reviewed: Yes Code(s): E11.9 - TYPE 2 DIABETES MELLITUS WITHOUT COMPLICATIONS Qualifiers: Diabetes mellitus type: other specified (including TAN) Diabetes mellitus intermediate insulin use: unspecified intermediate project manager insulin use status Diabetes mellitus complication status: with other specified complication Qualified Code (s): E13.69 - Other specified diabetes mellitus with other specified complication (9) UTI (urinary tract infection) Assessment/Plan: -UA + nitrites -UC negative Problems reviewed: Yes Code(s): N39.0 - URINARY TRACT INFECTION, SITE NOT SPECIFIED (10) Polyarthralgia Assessment/Plan: -Rheumatology consult -Uric acid normal -ESR, CRP elevated -medrol IV Q8H -Acetaminophen 650 mg Q4H PRN for pain 1-3 or fever>100.0 F -Oxycodone 5 mg Q4H PRN for pain 4-6 -Morphine 2 mg q4h PRN for pain 7-10 -Miralax BID + colace 300 mg po HS for bowel regimen -Started colchicine 0.6 mg po daily- maggy better controlled Problems reviewed: Yes Code(s): M25.50 - PAIN IN UNSPECIFIED JOINT (11) Acute cholecystitis Assessment/Plan: -Seen by Surgery -Awaiting HIDA Scan results -PPI Problems reviewed: Yes Code(s): K81.0 - ACUTE CHOLECYSTITIS (12) C. difficile diarrhea Assessment/Plan: -Seen by ID -On PO Vanco Problems reviewed: Yes Code(s): A04.72 - ENTEROCOLITIS D/T CLOSTRIDIUM DIFFICILE, NOT SPCF RECUR Assessment/Plan see problem list
[2019-10-11] MEDS: DULoxetine HCL 20 MG CAPSULE.DR PO SCH (11:33)
[2019-10-11] MEDS ORDERED: PT OWN MED DRAWER 7, Y5N ONE (12:02)
[2019-10-11] MEDS: NYSTATIN/TRIAMCINOLONE TOPICAL CREAM 15 GM TUBE TP SCH (12:25)
--- NOTE | 2019-10-11 14:58 | PN ---
Progress Note, Physician Chief Complaint: Cardiology - Current Medication List Current Medications: Active Medications Acetaminophen (Tylenol -) 650 mg PO Q6H PRN PRN Reason: FEVER OR PAIN LEVEL 1 - 3 Last Admin: 10/11/19 12:24 Dose: 650 mg Apixaban (Eliquis -) 5 mg PO BID [facility] Last Admin: 10/11/19 10:24 Dose: 5 mg Atorvastatin Calcium (Lipitor -) 40 mg PO HS [facility] Last Admin: 10/10/19 21:41 Dose: 40 mg Benzocaine/Menthol (Cepacol Lozenge -) 1 each MM Q2H PRN PRN Reason: SORE THROAT Calamine (Calamine 8% Topical Lotion -) 1 applic TP BID PRN PRN Reason: FOR ITCHING Last Admin: 10/10/19 17:36 Dose: 1 appful Colchicine (Colcrys) 0.6 mg PO DAILY [facility] Last Admin: 10/11/19 10:23 Dose: 0.6 mg Diltiazem HCl (Cardizem Cd -) 180 mg PO DAILY [facility] Last Admin: 10/11/19 10:24 Dose: 180 mg Duloxetine HCl (Cymbalta -) 40 mg PO DAILY [facility] Last Admin: 10/11/19 11:33 Dose: 40 mg Furosemide (Lasix -) 40 mg PO DAILY [facility] Last Admin: 10/11/19 10:23 Dose: 40 mg Gabapentin (Neurontin -) 300 mg PO TID [facility] Last Admin: 10/11/19 05:53 Dose: 300 mg Insulin Aspart (Novolog Vial Sliding Scale -) 1 vial SQ ACHS [facility]; Protocol Last Admin: 10/11/19 12:25 Dose: Not Given Insulin Detemir (Levemir Vial) 10 units SQ 0700 [facility] Last Admin: 10/11/19 06:00 Dose: 10 units Lidocaine (Lidoderm Patch -) 1 patch TP DAILY [facility] Last Admin: 10/11/19 10:24 Dose: 1 patch Melatonin (Melatonin) 5 mg PO HS PRN PRN Reason: INSOMNIA Last Admin: 10/09/19 21:21 Dose: 5 mg Metoprolol Succinate (Toprol Xl -) 50 mg PO DAILY [facility] Last Admin: 10/11/19 10:24 Dose: 50 mg Miscellaneous (Lidoderm Patch Removal) 1 each MC DAILY@2200 [facility] Last Admin: 10/10/19 21:42 Dose: 1 each Multivitamins/Minerals/Vitamin C (Tab-A-Vit -) 1 tab PO DAILY [facility] Last Admin: 10/11/19 10:24 Dose: 1 tab Nystatin (Nystop Powder -) 1 applic TP BID [facility] Last Admin: 10/11/19 10:25 Dose: 1 applic Nystatin/Triamcinolone Acetonide (Mycolog Ii Cream -) 1 applic TP BID [facility] Last Admin: 10/11/19 12:25 Dose: 1 applic Pantoprazole Sodium (Protonix -) 40 mg PO DAILY [facility] Last Admin: 10/11/19 10:23 Dose: 40 mg Potassium Chloride (K-Dur -) 20 meq PO DAILY [facility] Last Admin: 10/11/19 10:24 Dose: 20 meq Prednisone (Deltasone -) 15 mg PO DAILY [facility] Last Admin: 10/11/19 10:24 Dose: 15 mg Tamsulosin HCl (Flomax -) 0.4 mg PO DAILY@0830 [facility] Last Admin: 10/11/19 10:24 Dose: 0.4 mg Trazodone HCl (Desyrel -) 50 mg PO HS [facility] Last Admin: 10/10/19 21:42 Dose: 50 mg Ursodiol (Actigal -) 300 mg PO BID [facility] Last Admin: 10/10/19 11:02 Dose: 300 mg Vancomycin HCl (Vancomycin Oral Solution) 125 mg PO Q6HPO [facility] Last Admin: 10/11/19 11:32 Dose: 125 mg - Objective Vital Signs: Vital Signs Temperature 97.8 F 10/11/19 10:51 Pulse Rate 103 H 10/11/19 10:51 Respiratory Rate 20 10/11/19 10:51 Blood Pressure 137/85 10/11/19 10:51 O2 Sat by Pulse Oximetry (%) 100 10/11/19 10:51 Eyes: Yes: WNL, Conjunctiva Clear, EOM Intact HENT: Yes: WNL, Atraumatic, Normocephalic Neck: Yes: WNL, Supple, Trachea Midline Cardiovascular: Yes: WNL, Regular Rate and Rhythm Respiratory: Yes: WNL, Regular, CTA Bilaterally Gastrointestinal: Yes: WNL, Normal Bowel Sounds Genitourinary: Yes: WNL Musculoskeletal: Yes: WNL Extremities: Yes: WNL Edema: No Integumentary: Yes: WNL Neurological: Yes: WNL, Alert, Oriented ...Motor Strength: WNL Psychiatric: Yes: WNL Labs: CBC, BMP 10/10/19 06:40 10/10/19 06:40 INR, PTT INR 3.09 (0.83-1.09) H 09/20/19 22:24 Assessment/Plan - Problems r/o chf h/o high BNP sob will rechec bnp start lasix IV 20 mg monitor bnp Code(s): E86.0 - DEHYDRATION (2) Acute on chronic respiratory failure with hypoxia and hypercapnia Assessment/Plan: on Bipap nightly. Encourage physical and pulmonary rehabilitation. Code(s): J96.21 - ACUTE AND CHRONIC RESPIRATORY FAILURE WITH HYPOXIA; J96.22 - ACUTE AND CHRONIC RESPIRATORY FAILURE WITH HYPERCAPNIA (3) Leukocytosis Code(s): D72.829 - ELEVATED WHITE BLOOD CELL COUNT, UNSPECIFIED Qualifiers: Leukocytosis type: unspecified Qualified Code(s): D72.829 - Elevated white blood cell count, unspecified (4) Paget's bone disease Code(s): M88.9 - OSTEITIS DEFORMANS OF UNSPECIFIED BONE (5) Pneumonia Assessment/Plan: on antibitotics per ID. Code(s): J18.9 - PNEUMONIA, UNSPECIFIED ORGANISM Qualifiers: Pneumonia type: due to unspecified organism Laterality: left Lung location: lower lobe of lung Qualified Code(s): J18.9 - Pneumonia, unspecified organism (6) Depression Code(s): F32.9 - MAJOR DEPRESSIVE DISORDER, SINGLE EPISODE, UNSPECIFIED (7) Diabetes Code(s): E11.9 - TYPE 2 DIABETES MELLITUS WITHOUT COMPLICATIONS Qualifiers: Diabetes mellitus type: other specified (including TAN) Diabetes mellitus usp insulin use: unspecified usp insulin use status Diabetes mellitus complication status: with other specified complication Qualified Code (s): E13.69 - Other specified diabetes mellitus with other specified complication (8) Diastolic CHF Code(s): I50.30 - UNSPECIFIED DIASTOLIC (CONGESTIVE) HEART FAILURE (9) HLD (hyperlipidemia) Assessment/Plan: on statinj Code(s): E78.5 - HYPERLIPIDEMIA, UNSPECIFIED Qualifiers: Hyperlipidemia type: other hyperlipidemia Qualified Code(s): E78.49 - Other hyperlipidemia; E78.4 - Other hyperlipidemia (10) Atrial fibrillation Assessment/Plan: Brief periods of AF with RVR. Will increase diltiazem CD to 130 mg daily (and stop amlodipine, a 2nd calcium channel quirino). Continue metoprolol ER. Continue apixaban for anticoagulation (and stop ASA: increased risk of bleed; anemia; no hx MD, PCI). Code(s): I48.91 - UNSPECIFIED ATRIAL FIBRILLATION (11) NSVT (nonsustained ventricular tachycardia) Assessment/Plan: breif, nonsustanted runs during SVT/AF incident necessitatin ICU earlier this admission. ECHO: normal LVEF. On metoprolol and diltiazem. Maintain electrolytes.; control BP. Coronary artery evaluation when stable. Code(s): I47.2 - VENTRICULAR TACHYCARDIA
[2019-10-11] MEDS: CALAMINE 8% TOPICAL LOTION 177 ML BOTTLE TP PRN (15:21)
--- NOTE | 2019-10-11 15:45 | PN ---
Progress Note (short form) - Note Progress Note: Renal follow up for BEKA Pt seen and examined at the bedside awake and alert on BIPAP no acute complaints upset about being discharged Vital Signs Temperature 97.5 F L 10/11/19 15:20 Pulse Rate 90 10/11/19 15:20 Respiratory Rate 20 10/11/19 15:20 Blood Pressure 127/59 L 10/11/19 15:20 O2 Sat by Pulse Oximetry (%) 100 10/11/19 10:51 Intake & Output 10/08/19 10/09/19 10/10/19 10/11/19 23:59 23:59 23:59 23:59 Intake Total 0 450 400 0 Balance 0 450 400 0 NAD RRR, no M/R Dec BS at lung bases soft, obese, NT/ND trace edema in LE CBC, BMP 10/10/19 06:40 10/10/19 06:40 Current Medications Acetaminophen (Tylenol -) 650 mg PO Q6H PRN PRN Reason: FEVER OR PAIN LEVEL 1 - 3 Last Admin: 10/11/19 12:24 Dose: 650 mg Apixaban (Eliquis -) 5 mg PO BID [facility] Last Admin: 10/11/19 10:24 Dose: 5 mg Atorvastatin Calcium (Lipitor -) 40 mg PO HS [facility] Last Admin: 10/10/19 21:41 Dose: 40 mg Benzocaine/Menthol (Cepacol Lozenge -) 1 each MM Q2H PRN PRN Reason: SORE THROAT Calamine (Calamine 8% Topical Lotion -) 1 applic TP BID PRN PRN Reason: FOR ITCHING Last Admin: 10/10/19 17:36 Dose: 1 appful Colchicine (Colcrys) 0.6 mg PO DAILY [facility] Last Admin: 10/11/19 10:23 Dose: 0.6 mg Diltiazem HCl (Cardizem Cd -) 180 mg PO DAILY [facility] Last Admin: 10/11/19 10:24 Dose: 180 mg Duloxetine HCl (Cymbalta -) 40 mg PO DAILY [facility] Last Admin: 10/11/19 11:33 Dose: 40 mg Furosemide (Lasix -) 40 mg PO DAILY [facility] Last Admin: 10/11/19 10:23 Dose: 40 mg Gabapentin (Neurontin -) 300 mg PO TID [facility] Last Admin: 10/11/19 05:53 Dose: 300 mg Insulin Aspart (Novolog Vial Sliding Scale -) 1 vial SQ ACHS [facility]; Protocol Last Admin: 10/11/19 12:25 Dose: Not Given Insulin Detemir (Levemir Vial) 10 units SQ 0700 [facility] Last Admin: 10/11/19 06:00 Dose: 10 units Lidocaine (Lidoderm Patch -) 1 patch TP DAILY [facility] Last Admin: 10/11/19 10:24 Dose: 1 patch Melatonin (Melatonin) 5 mg PO HS PRN PRN Reason: INSOMNIA Last Admin: 10/09/19 21:21 Dose: 5 mg Metoprolol Succinate (Toprol Xl -) 50 mg PO DAILY [facility] Last Admin: 10/11/19 10:24 Dose: 50 mg Miscellaneous (Lidoderm Patch Removal) 1 each MC DAILY@2200 [facility] Last Admin: 10/10/19 21:42 Dose: 1 each Multivitamins/Minerals/Vitamin C (Tab-A-Vit -) 1 tab PO DAILY [facility] Last Admin: 10/11/19 10:24 Dose: 1 tab Nystatin (Nystop Powder -) 1 applic TP BID [facility] Last Admin: 10/11/19 10:25 Dose: 1 applic Nystatin/Triamcinolone Acetonide (Mycolog Ii Cream -) 1 applic TP BID [facility] Last Admin: 10/11/19 12:25 Dose: 1 applic Pantoprazole Sodium (Protonix -) 40 mg PO DAILY [facility] Last Admin: 10/11/19 10:23 Dose: 40 mg Potassium Chloride (K-Dur -) 20 meq PO DAILY [facility] Last Admin: 10/11/19 10:24 Dose: 20 meq Prednisone (Deltasone -) 15 mg PO DAILY [facility] Last Admin: 10/11/19 10:24 Dose: 15 mg Tamsulosin HCl (Flomax -) 0.4 mg PO DAILY@0830 [facility] Last Admin: 10/11/19 10:24 Dose: 0.4 mg Trazodone HCl (Desyrel -) 50 mg PO HS [facility] Last Admin: 10/10/19 21:42 Dose: 50 mg Ursodiol (Actigal -) 300 mg PO BID [facility] Last Admin: 10/10/19 11:02 Dose: 300 mg Vancomycin HCl (Vancomycin Oral Solution) 125 mg PO Q6HPO [facility] Last Admin: 10/11/19 11:32 Dose: 125 mg 78 year old gentleman with history of CHF with reduced LVEF, Afib, Anemia and DM with recent admission for gross hematuria and BEKA now presents with diffuse body pain and joint pain with BEKA. 1. Acute kidney injury now resolved 2. Joint pains 3. CHF with reduced LVEF 4. Leukocytosis 5. Anemia 6. Hypophosphatemia 7. Hypokalemia 8. Hypomagnesemia 9. C diff colitis awake and alert Continue current meds including Lasix and potassium upon discharge should have labs checked in 1 weeks. stable for discharge from renal perspective. Thank you Saul iDaz DO
[2019-10-11] MEDS ORDERED: INSULIN (NOVOLOG) ASPART 100 UNITS/ML 10ML VIAL ONE (16:56)
[2019-10-11 18:39] VITALS: BP 125/64; PULSE 91; TEMP 98.3
== END 2019-10-11 18:56 | DRG 193 ==
LOC: JER 21:22 → JERBED 09-21 00:59 → J5S 09-21 03:27 → JICU 09-22 12:15 → J4W 09-23 19:05 → J6S 10-02 17:36 → J7W 10-05 00:14
PROVIDERS: ADMIT Internal Medicine; ATTEND Family Medicine
PROC: 0S9D3ZX Drainage of Left Knee Joint, Percutaneous Approach, Diagnostic (ICD-10-PCS; principal; 2019-09-21)
DX: J18.9 Pneumonia, unspecified organism (principal); J96.21 Acute and chronic respiratory failure with hypoxia; I50.33 Acute on chronic diastolic (congestive) heart failure; J96.22 Acute and chronic respiratory failure with hypercapnia; N17.9 Acute kidney failure, unspecified; I47.1 Supraventricular tachycardia; N39.0 Urinary tract infection, site not specified; J98.11 Atelectasis; J90 Pleural effusion, not elsewhere classified; J81.1 Chronic pulmonary edema; A04.72 Enterocolitis due to Clostridium difficile, not specified as recurrent; I47.2 Ventricular tachycardia; K80.00 Calculus of gallbladder with acute cholecystitis without obstruction; M06.4 Inflammatory polyarthropathy; J44.9 Chronic obstructive pulmonary disease, unspecified; E11.9 Type 2 diabetes mellitus without complications; I11.0 Hypertensive heart disease with heart failure; I25.10 Atherosclerotic heart disease of native coronary artery without angina pectoris; E78.5 Hyperlipidemia, unspecified; D64.9 Anemia, unspecified; I27.20 Pulmonary hypertension, unspecified; F32.9 Major depressive disorder, single episode, unspecified; M88.9 Osteitis deformans of unspecified bone; I48.0 Paroxysmal atrial fibrillation; D72.829 Elevated white blood cell count, unspecified; N40.0 Benign prostatic hyperplasia without lower urinary tract symptoms; E86.0 Dehydration; I45.10 Unspecified right bundle-branch block; E87.6 Hypokalemia; E83.42 Hypomagnesemia; R21 Rash and other nonspecific skin eruption; E83.39 Other disorders of phosphorus metabolism; M10.9 Gout, unspecified; E66.9 Obesity, unspecified; Z68.30 Body mass index [BMI] 30.0-30.9, adult; Z99.81 Dependence on supplemental oxygen; Z85.46 Personal history of malignant neoplasm of prostate
CPT/HCPCS: 36415; 36430; 36600; 71045-TC-FY; 71250-TC; 76700-TC; 76705-TC; 76775-TC; 76856-TC; 78226-TC; 80048; 80053; 81003; 82085; 82550; 82565; 82728; 82803; 82962; 83540; 83550; 83605; 83615; 83625; 83735; 83880; 84100; 84156; 84300; 84481; 84484; 84540; 84550; 85025; 85027; 85044; 85379; 85610; 85651; 86140; 86618; 86850; 86900; 86901; 86922; 87040; 87045; 87046; 87070; 87075; 87081; 87086; 87205; 87324; 87449; 87493; 87899; 89051; 89060; 93005; 93010; 94640; 94660; 97116-GP; 97161-GP; 99284-25; A9537; G0480; J0131; J7030; P9038; P9058

== ENCOUNTER 2020-08-21 04:43 | Day surgery (SDC) | payer OTHER ==
[2020-08-20 14:27] VITALS: BMI 23.7
[~2020-08-21 04:43] MED LIST: ceFAZolin 2 GRAM PREMIX BAG IVPB ONE
--- OUTSIDE RECORDS SUMMARY | 2020-08-21 04:47 | XMS ---
:1940 [facility] Care [facility] Providers Name Role Phone Aura, Nayel Unavailable [phone] Aura, Nayel Unavailable [phone] Aura, Nayel Unavailable [phone] Aura, Nayel Unavailable [phone] Aura, Nayel Unavailable [phone] AURA NAYEL, NAYEL Unavailable Unavailable Re-disclosure Warning The records that you are about to access may contain information from federally- assisted alcohol or drug abuse programs. If such information is present, then the following federally mandated warning applies: This information has been disclosed to you from records protected by federal confidentiality rules (42 CFR part 2). The federal rules prohibit you from making any further disclosure of this information unless further disclosure is expressly permitted by the written consent of the person to whom it pertains or as otherwise permitted by 42 CFR part 2. A general authorization for the release of medical or other information is NOT sufficient for this purpose. The Federal rules restrict any use of the information to criminally investigate or prosecute any alcohol or drug abuse patient.The records that you are about to access may contain highly sensitive health information, the redisclosure of which is protected by Article 27-F of the [place] State Public Health law. If you continue you may haveaccess to information: Regarding HIV / AIDS; Provided by facilities licensed or operated by the [facility] Office of Mental Health; or Provided by the [facility] Office for People With Developmental Disabilities. If such information is present, then the following [facility] mandated warning applies: This information has been disclosed to you from confidential records which are protected by state law. State law prohibits you from making any further disclosure of this information without the specific written consent of the person to whom it pertains, or as otherwise permitted by law. Any unauthorized further disclosure in violation of state law may result in a fine or correction sentence or both. A general authorization for the release of medical or other information is NOT sufficient authorization for further disclosure. Encounters Encounter Providers Location Date Indications Data Source(s ) Outpatient Attender: CHUY Avery 07/25/2020 [facility] 07:40:00 AM Medical Shiv VERAAdmitter: EDT CHUY VERAReferrer: CHUY VERA Attender: [facility] 07/25/2020 [facility] ([facility] 07:40:00 AM [facility] EDT - Center) 07/25/2020 07:40:00 AM EDT Insurance Providers Payer name Policy type Policy ID Covered Covered democrat's Policy P rajwinder / Coverage democrat ID relationship to Al Inf ormation type al MEDICAID [id number] SP [id number] MEDICARE [id number] SP [id number] MEDICAID [id number] SP [id number] HANH MEDICARE [id number] SP [id number] ISAEL [id number] SP [id number] MEDICARE ADV PLAN W [id number] 01 [id number] MEDICARE [id number] SP [id number] A BRIGGS [id number] SP [id number] HEALTHCARE (MEDICARE) HANH MEDICARE [id number] SP [id number] BRIGGS [id number] SP [id number] HEALTHCARE (MEDICARE) MEDICARE [id number] SP [id number] A MEDICARE [id number] SP [id number] A MEDICARE [id number] SP [id number] A Problems, Conditions, and Diagnoses Code Display Name Description Problem Type Effective Data Sour ce(s) Dates Z13.820 Encounter for ENCOUNTER FOR Diagnosis 07/25/2020 [facility] for [facility] OSTEOPOROSIS EDT Results ID Date Data Source [id number] 05/28/2020 01:33:00 PM EDT [facility] Name Value Range Interpretation Description Data Sup porting Code Source(s) Document(s ) SARS [facility] Coronavirus 2 RNA Presence Respiratory Specimen CHIARA Probe Detection This lab was ordered by [facility] a nd reported by [facility]. ID Date Data Source [id number] 05/26/2020 10:20:00 PM EDT [facility] Name Value Range Interpretation Description Data Source(s ) Supporting Code Document(s ) SARS [facility] Coronavirus 2 - [facility] RNA Presence [facility] Respiratory Specimen CHIARA Probe Detection This lab was ordered by [facility] a nd reported by [facility]. ID Date Data Source [id number] 05/25/2020 12:00:00 AM EDT [facility] Name Value Range Interpretation Code Description Data Lisa rce(s) Supporting Document(s ) 2019-nCoV [facility] RNA XXX CHIARA+probe- Imp This lab was ordered by [facility] and reported by [facility]. ID Date Data Source [id number] 04/26/2020 07:23:00 PM EDT [facility] Name Value Range Interpretation Description Data Sup porting Code Source(s) Document(s ) 2019 Novel [facility] Coronavirus RNA Interpretation Unspecified Specimen Qualitative CHIARA Probe Detection This lab was ordered by [id number] and reported by [facility]. ID Date Data Source [id number] 04/21/2020 09:30:00 AM EDT [facility] Name Value Range Interpretation Description Data Sup porting Code Source(s) Document(s ) SARS [facility] CORONAVIRUS 2 RNA This lab was ordered by [facility] and reported by [facility]. ID Date Data Source [id number] 04/10/2020 11:20:00 AM EDT [facility] Name Value Range Interpretation Description Data Sup porting Code Source(s) Document(s ) SARS [facility] CORONAVIRUS 2 RNA This lab was ordered by [facility] and reported by [facility]. ID Date Data Source [id number] 04/09/2020 12:00:00 AM EDT [facility] Name Value Range Interpretation Code Description Data Lisa rce(s) Supporting Document(s ) 2019-nCoV [facility] RNA XXX CHIARA+probe- Imp This lab was ordered by [facility] and reported by [facility]. ID Date Data Source [id number] 03/14/2020 12:00:00 AM EDT [facility] Name Value Range Interpretation Code Description Data Lisa [facility](s) Supporting Document(s ) 2018-nCoV [facility] RNA XXX CHIARA+probe- Imp This lab was ordered by [facility] and reported by [employer] Procedure
[2020-08-21] MEDS ORDERED: ceFAZolin SODIUM 1 GM VIAL ONE (15:00)
[2020-08-21] MEDS ORDERED: PROPOFOL 20 ML ONE (15:00)
[2020-08-21] MEDS ORDERED: SODIUM CHLORIDE 0.9% P/F 10 ML VIAL IJ ONE (15:02)
[2020-08-21] MEDS ORDERED: MIDAZOLAM HCL 2 MG/2 ML SINGLE DOSE VIAL ONE (16:36)
[2020-08-21] MEDS ORDERED: ONDANSETRON 4 MG/2 ML VIAL IVPUSH PRN (17:48)
--- NOTE | 2020-08-21 17:50 | OP ---
Operative Note - Note: Operative Date: 08/21/20 Pre-Operative Diagnosis: gross hematuria, ca. prostate. Operation: cysto turp (necrotic prostate tissue) Findings: bleeding necrotic, obstructing prostate tissue Post-Operative Diagnosis: Same as Pre-op Surgeon: Omar Friedman Anesthesia: General Specimens Removed: [prostate tissue Estimated Blood Loss (mls): 20 Drains & Tubes with Location: 22f 10cc thomas Drains, Volume Out (mls): 0 Blood Volume Replaced (mls): 0 Fluid Volume Replaced (mls): 0 Operative Report Dictated: Yes
[2020-08-21] MEDS ORDERED: ACETAMINOPHEN 325 MG TABLET (FP) PO PRN (17:51)
[2020-08-21 18:42] VITALS: PULSE 84
--- NOTE | 2020-08-21 19:09 | HP ---
DATE OF ADMISSION: 08/21/2020 HISTORY OF PRESENT ILLNESS: The patient is a 79-year-old male with history of prostate cancer. He has undergone radiation, seed implantation in the past. He also has history of high blood pressure, coronary artery disease, and dyslipidemia. Patient also recently diagnosed with atrial fibrillation. He is on Norvasc, a statin, Lasix, isosorbide, and metoprolol. History last PSA was 0.1. this year revealed possible metastases to the thoracic and lumbar spine. Patient has been recommenced on total androgen ablation as well as Erleada 4 tablets daily. He complains of frequency, urgency, dribbling, post void residual was more than 200 mL. PHYSICAL EXAMINATION: Revealed a soft abdomen. There was some suprapubic fullness. His penis revealed a normal meatus. His prostate was 1+, firm, and nontender. IMPRESSION: At present is recurrent prostate hypertrophy, possible bladder neck contraction. Patient will need a cystoscopy and transurethral resection/vaporization of prostate or transurethral resection/vaporization of prostate, bladder neck. This will be performed at [facility]. Will get medical clearance from his primary medical doctor. Seema [id number]
--- NOTE | 2020-08-21 19:41 | OP ---
DATE OF OPERATION: 08/21/2020 PREOPERATIVE DIAGNOSIS: History of prostate cancer, prostatism, obstructive uropathy, large postvoid residual. POSTOPERATIVE DIAGNOSIS: Recurrent necrotic prostate tissue causing bladder outlet obstruction. OPERATIVE PROCEDURE: Cystourethroscopy and transurethral resection and transurethral vaporization of prostate and bladder neck. ANESTHESIA: General. DESCRIPTION OF PROCEDURE: Under above stated anesthesia, patient was prepped and draped in the usual sterile manner. He was placed in the dorsal lithotomy position. Cystoscopy revealed a normal anterior urethra. Prostatic urethra revealed overgrowth of necrotic prostate tissue. This was in the way of the bladder neck. There was also necrotic tissue at the bladder neck with almost complete obstruction of the bladder. The bladder revealed a grade 3 trabeculation. No lesions or calculi were seen. Necrotic prostate tissue was resected in the usual fashion. Hemostasis was secured with electrocoagulation. Excess tissue was then vaporized from the 6 o'clock position to the 12 o'clock position on the right side. Same thing was done on the left side. Hemostasis was secured again with electrocoagulation. The scope was removed. A 3-way Iqbal was inserted. This was connected to bladder irrigation. The patient tolerated the procedure well. He returned to the recovery room in good condition. Seema [id number]
--- NOTE | 2020-08-21 19:45 | OP ---
DATE OF OPERATION: DATE OF DICTATION: 08/21/2020 HISTORY OF PRESENT ILLNESS: The patient is a 79-year-old male with history of prostate cancer status post radiation seed implant, history of intermittent gross hematuria, severe prostatism, will undergo cystoscopy, possible biopsy, possible prostate resection. POSTOPERATIVE DIAGNOSIS: Bleeding encroaching prostate tissue. OPERATIVE PROCEDURE: Cystoscopy, transurethral resection of prostate. ANESTHESIA: General. DESCRIPTION OF PROCEDURE: Under above stated anesthesia, patient was prepped and draped in the usual sterile manner. Cystoscopy under direct vision revealed a normal anterior urethra. Prostatic urethra revealed necrotic hemorrhagic prostate tissue encroaching on the bladder neck. Resectoscope was inserted and all necrotic tissue was resected. The base was cauterized for hemostasis. Prostate chips were evacuated with an EllScirra evacuator. No active bleeding was noted. Ureteral orifices were within normal limits with efflux of clear urine. Dome and lateral painting were also normal with no lesions. The bladder was emptied. Scope was removed. A 22 Iqbal was left in place. The patient tolerated the procedure well. He returned to the recovery room in good condition. Seema [id number]
[2020-08-21 20:00] VITALS: BP 150/80; TEMP 97.8
--- NOTE | 2020-08-23 18:03 | PATH ---
Surgical Pathology Report Patient Name: KAYLEEN CORBETT [facility]. Rec. #: [id number] /Age/Gender: 1940 (Age: 79) / M Account: [id number] Location: [facility] SURGICAL Taken: 08/21/2020 Received: 08/22/2020 Reported: 08/23/2020 Physicians: Omar Friedman M.D. Specimen(s) Received PROSTATIC URETHERAL BIOPSY Clinical History Prostate cancer and hematuria Final Diagnosis PROSTATIC URETHRAL BIOPSY: UROTHELIAL AND SQUAMOUS MUCOSA WITH SUBJACENT STROMAL TISSUE SHOWING EPITHELIAL EROSION, ACUTE AND CHRONIC INFLAMMATION, AND STROMAL FIBROSIS. NO EVIDENCE OF MALIGNANCY. Electronically Signed Nidia Singh M.D. Gross Description Received in formalin labeled "prostatic urethral biopsy," is a less than 1 g aggregate of three jo, firm to rubbery portions of tissue ranging from 0.4-1.0 cm in greatest dimension, consistent with prostate chips. The specimen is submitted in toto in one cassette. 08/22/2020 saudi08/22/2020
== END 2020-08-21 18:45 ==
LOC: JASU-SURG 04:43
PROVIDERS: ATTEND Urology
PROC: 0TJB8ZZ Inspection of Bladder, Via Natural or Artificial Opening Endoscopic (ICD-10-PCS; 2020-08-21)
PROC: 0VB08ZX Excision of Prostate, Via Natural or Artificial Opening Endoscopic, Diagnostic (ICD-10-PCS; 2020-08-21)
PROC: 0VT08ZZ Resection of Prostate, Via Natural or Artificial Opening Endoscopic (ICD-10-PCS; principal; 2020-08-21 13:00)
DX: N40.0 Benign prostatic hyperplasia without lower urinary tract symptoms (principal); R31.0 Gross hematuria; Z85.46 Personal history of malignant neoplasm of prostate; Z92.3 Personal history of irradiation
CPT/HCPCS: 87086; 87186; 88305-TC; 94760

== ENCOUNTER 2020-11-10 17:26 | Inpatient (IN) | payer OTHER ==
[2020-11-10] MEDS ORDERED: dilTIAZem HCL 50 MG/10 ML - 10 ML VIAL IVPUSH ONE (18:14)
[2020-11-10] MEDS ORDERED: dilTIAZem HCL 50 MG/10 ML - 10 ML VIAL ONE (19:01)
[2020-11-10] MEDS ORDERED: SODIUM CHLORIDE 0.9% 500 ML INFUS.BAG IV ONE (19:28)
[2020-11-10 19:43] LABS: BASO % 0.7 % (0-2.0); EOS % 2.3 % (0-4.5); HEMOGLOBIN 10.2 GM/dL (11.7-16.9); LYMPH % 22.4 % (8-40); MCH 32.2 pg (25.7-33.7); MEAN CELL VOLUME 100.7 fl (80-96); NEUT % 63.6 % (42.8-82.8); PLATELET COUNT 240 K/MM3 (134-434); RBC 3.17 M/mm3 (4.00-5.60); RDW 17.2 % (11.9-15.9); WHITE BLOOD COUNT 5.8 K/mm3 (4.0-10.0)
[2020-11-10] MEDS ORDERED: ACETAMINOPHEN 1000 MG/100 ML VIAL (NON FORMULARY) IVPB ONE (20:09)
[2020-11-10 20:16] LABS: POTASSIUM 4.3 mmol/L (3.5-5.1)
[2020-11-10 20:19] LABS: BLOOD UREA NITROGEN 37.1 mg/dL (7-18); CALCIUM 9.4 mg/dL (8.5-10.1)
[2020-11-10 20:20] LABS: ALBUMIN 3.6 g/dl (3.4-5.0); MAGNESIUM 1.6 mg/dL (1.8-2.4)
[2020-11-10 20:23] LABS: CREATININE 1.7 mg/dL (0.55-1.3); PHOSPHOROUS 4.9 mg/dL (2.5-4.9)
[2020-11-10] MEDS ORDERED: ACETAMINOPHEN INJECTION 100 ML IVPB ONE (20:23)
[2020-11-10 20:24] LABS: BILIRUBIN,TOTAL 0.4 mg/dL (0.2-1); TOT PROT 6.1 g/dl (6.4-8.2)
[2020-11-10 20:25] LABS: N-TERMINAL BNP 12832.6 pg/ml (5-450)
[2020-11-10] MEDS ORDERED: MAGNESIUM SULF 50% (8.12 MEQ/2 ML-1 GM VIAL) IVPB ONE (20:55)
[2020-11-10] MEDS ORDERED: CEFTRIAXONE 1,000 MG in DEXTROSE 5%-WATER - 50 ML IVPB ONE (21:08)
[2020-11-10] MEDS ORDERED: DOXYCYCLINE INJECTION 100 MG in DEXTROSE 5%-WATER - 100 ML IVPB ONE (21:08)
[2020-11-10 21:22] LABS: INR 1.31 (0.83-1.09)
[2020-11-10 21:25] LABS: ACTIVATED PTT 30.4 SECONDS (25.2-36.5)
[2020-11-10] MEDS ORDERED: DOXYCYCLINE HYCLATE 100 MG VIAL ONE (22:17)
[2020-11-10] MEDS ORDERED: CEFTRIAXONE 1 GM/50 ML BAG ONE (22:17)
[2020-11-10] MEDS ORDERED: MAGNESIUM SULFATE IN WATER 2 GM/50 ML IVPB IVPB ONE ×2 (22:18→23:36)
[2020-11-10 23:14] LABS: BILIRUBIN,DIRECT 0.2 mg/dL (0.0-0.2)
[2020-11-10] MEDS ORDERED: dilTIAZem HCL 125 MG/25 ML - 25 ML VIAL ONE (23:36)
[2020-11-10] MEDS ORDERED: HEPARIN NA (PORCINE) 5,000 UNITS/ML 1ML VIAL IVPUSH ONE (23:41)
[2020-11-10 23:42] LABS: EPI CELLS 7 /uL (0-25.1); HYALINE CASTS 1 /uL (0-3.1); URINE APPEARANCE TURBID; URINE BACTERIA 5435 /uL (0-1359); URINE BILIRUBIN NEGATIVE (NEGATIVE); URINE COLOR YELLOW; URINE GLUCOSE (UA) NEGATIVE (NEGATIVE); URINE KETONE NEGATIVE (NEGATIVE); URINE LEUK ESTERASE 3+ (NEGATIVE); URINE NITRITE NEGATIVE (NEGATIVE); URINE PROTEIN 1+ (NEGATIVE); URINE RBC 86 /uL (0-23.9); URINE UROBILINOGEN 0.2 mg/dL (0.2-1.0); URINE WBC 2759 /uL (0-25.8)
[2020-11-10] MEDS ORDERED: HEPARIN NA (PORCINE) 5,000 UNITS/ML 1ML VIAL IVPUSH PRN ×2 (23:42)
[2020-11-10] MEDS ORDERED: dilTIAZem HCL 60 MG TABLET PO ONE (23:50)
[2020-11-11] MEDS ORDERED: HEPARIN INFUSION - 25,000 UNITS/500 ML INFUS.BAG IVPB ONE (00:19)
[2020-11-11] MEDS ORDERED: HEPARIN NA (PORCINE) 5,000 UNITS/ML 1ML VIAL ONE ×2 (00:19→20:08)
[2020-11-11] MEDS: dilTIAZem HCL 50 MG/10 ML - 10 ML VIAL IVPUSH ONE ×2 (00:30→02:10)
[2020-11-11] MEDS: HEPARIN SOD,PORK IN 0.45% NACL 25,000 UNITS/500 ML INFUS.BAG IVPB SCH ×2 (00:45→23:50)
[2020-11-11] MEDS: MAGNESIUM SULF 50% (8.12 MEQ/2 ML-1 GM VIAL) IVPB ONE ×2 (00:45→02:24)
[2020-11-11] MEDS ORDERED: dilTIAZem HCL 60 MG TABLET ONE ×2 (02:14→11:05)
[2020-11-11 07:34] LABS: BASO % 0.7 % (0-2.0); EOS % 3.6 % (0-4.5); HEMATOCRIT 32.7 % (35.4-49); HEMOGLOBIN 10.6 GM/dL (11.7-16.9); LYMPH % 18.3 % (8-40); MCH 33.1 pg (25.7-33.7); MCHC 32.6 g/dl (32.0-35.9); MEAN CELL VOLUME 101.5 fl (80-96); MEAN PLT VOLUME 8.6 fl (7.5-11.1); MONO % 11.9 % (3.8-10.2); NEUT % 65.5 % (42.8-82.8); PLATELET COUNT 226 K/MM3 (134-434); RBC 3.22 M/mm3 (4.00-5.60); RDW 17.1 % (11.9-15.9); WHITE BLOOD COUNT 6.7 K/mm3 (4.0-10.0)
[2020-11-11 08:11] LABS: POTASSIUM 3.5 mmol/L (3.5-5.1)
[2020-11-11 08:14] LABS: ALBUMIN 3.6 g/dl (3.4-5.0)
[2020-11-11 08:18] LABS: CREATININE 1.6 mg/dL (0.55-1.3)
[2020-11-11 08:19] LABS: BILIRUBIN,TOTAL 0.4 mg/dL (0.2-1); TOT PROT 6.2 g/dl (6.4-8.2)
[2020-11-11] MEDS ORDERED: DOXYCYCLINE INJECTION 100 MG in DEXTROSE 5%-WATER - 100 ML IVPB SCH (10:00)
[2020-11-11] MEDS ORDERED: PATIENT'S OWN MEDICATION (NON-FORMULARY) (Lactulose [Lactulose] 10 GM/15 ML Solution) PO SCH (10:00)
[2020-11-11] MEDS ORDERED: PATIENT'S OWN MEDICATION (NON-FORMULARY) (Ferrous Sulfate [Ferrous Sulfate] 325 MG Tablet) PO SCH (10:00)
[2020-11-11] MEDS: INSULIN SLIDING SCALE (NOVOLOG) 1 VIAL SQ SCH ×4 (10:00→23:22)
[2020-11-11] MEDS ORDERED: PATIENT'S OWN MEDICATION (NON-FORMULARY) (Multivitamin [Multivitamin] 1 EACH Tablet) PO SCH (10:00)
[2020-11-11] MEDS: FERROUS SO4 325 MG TABLET (FP) PO SCH (10:30)
[2020-11-11] MEDS: ASPIRIN COATED 81 MG TABLET.EC PO SCH (10:30)
[2020-11-11] MEDS: DULoxetine HCL 30 MG CAPSULE.DR PO SCH (10:30)
[2020-11-11] MEDS: LACTULOSE 20 GM/30 ML UDC (FOR ORAL USE ONLY) PO SCH (10:30)
[2020-11-11] MEDS: metoPROLOL SUCCINATE 25 MG TAB.SR.24H (FP) PO SCH (10:30)
[2020-11-11] MEDS: TORSEMIDE 20 MG TABLET (FP) PO SCH (10:30)
[2020-11-11] MEDS: GABAPENTIN 100 MG CAPSULE PO SCH (10:30)
[2020-11-11] MEDS: CARBIDOPA/LEVODOPA 25/100 TABLET (FP) PO SCH ×2 (10:30→21:47)
[2020-11-11] MEDS: CEFTRIAXONE 1 GM in DEXTROSE 5%-WATER - 50 ML IVPB SCH (11:00)
[2020-11-11] MEDS: TAMSULOSIN HCL 0.4 MG CAP PO SCH (11:00)
[2020-11-11] MEDS ORDERED: ASPIRIN COATED 81 MG TABLET.EC ONE (11:04)
[2020-11-11] MEDS ORDERED: LACTULOSE 20 GM/30 ML UDC (FOR ORAL USE ONLY) ONE (11:04)
[2020-11-11] MEDS ORDERED: CARBIDOPA/LEVODOPA 25/100 TABLET (FP) ONE ×3 (11:05→21:36)
[2020-11-11] MEDS ORDERED: metoPROLOL SUCCINATE 25 MG TAB.SR.24H (FP) ONE (11:05)
[2020-11-11] MEDS ORDERED: GABAPENTIN 100 MG CAPSULE ONE (11:05)
[2020-11-11] MEDS ORDERED: TAMSULOSIN HCL 0.4 MG CAP ONE (11:05)
[2020-11-11] MEDS ORDERED: DULoxetine HCL 30 MG CAPSULE.DR PO ONE (11:06)
[2020-11-11] MEDS ORDERED: FERROUS SO4 325 MG TABLET (FP) ONE (11:06)
[2020-11-11] MEDS ORDERED: DOXYCYCLINE HYCLATE 100 MG VIAL ONE (11:07)
[2020-11-11] MEDS ORDERED: CEFTRIAXONE 1 GM/50 ML BAG ONE (11:08)
[2020-11-11] MEDS ORDERED: SODIUM CHLORIDE 1,000 ML IV SCH (11:15)
[2020-11-11] MEDS: MULTIVITAMINS (DAILY MVI) TABLET (FP) PO SCH (12:03)
[2020-11-11] MEDS: INSULIN (LEVEMIR) 100 UNITS/ML UNITS SQ SCH (18:19)
[2020-11-11] MEDS ORDERED: ATORVASTATIN CA 40 MG TABLET (FP) ONE (21:36)
[2020-11-11] MEDS: ATORVASTATIN CA 40 MG TABLET (FP) PO SCH (21:47)
[2020-11-11] MEDS: SENNOSIDES/DOCUSATE COMBO (SENNA PLUS) TABLET (UD) PO SCH (23:22)
[2020-11-12 05:59] LABS: HEMATOCRIT 30.6 % (35.4-49); MCHC 32.6 g/dl (32.0-35.9); MEAN CELL VOLUME 101.5 fl (80-96); MEAN PLT VOLUME 8.5 fl (7.5-11.1); PLATELET COUNT 213 K/MM3 (134-434); RBC 3.02 M/mm3 (4.00-5.60); RDW 16.6 % (11.9-15.9); WHITE BLOOD COUNT 6.8 K/mm3 (4.0-10.0)
[2020-11-12] MEDS: INSULIN (LEVEMIR) 100 UNITS/ML UNITS SQ SCH (08:00)
[2020-11-12] MEDS: TAMSULOSIN HCL 0.4 MG CAP PO SCH (08:42)
[2020-11-12] MEDS: INSULIN SLIDING SCALE (NOVOLOG) 1 VIAL SQ SCH ×4 (09:28→23:49)
[2020-11-12] MEDS ORDERED: LACTULOSE 20 GM/30 ML UDC (FOR ORAL USE ONLY) ONE (09:50)
[2020-11-12] MEDS ORDERED: ASPIRIN COATED 81 MG TABLET.EC ONE (09:50)
[2020-11-12] MEDS ORDERED: metoPROLOL SUCCINATE 25 MG TAB.SR.24H (FP) ONE (09:51)
[2020-11-12] MEDS ORDERED: MULTIVITAMINS (DAILY MVI) TABLET (FP) ONE (09:51)
[2020-11-12] MEDS ORDERED: CARBIDOPA/LEVODOPA 25/100 TABLET (FP) ONE (09:52)
[2020-11-12] MEDS ORDERED: FERROUS SO4 325 MG TABLET (FP) ONE (09:52)
[2020-11-12] MEDS ORDERED: CEFTRIAXONE 1 GM/50 ML BAG ONE (09:52)
[2020-11-12] MEDS ORDERED: TAMSULOSIN HCL 0.4 MG CAP ONE (09:52)
[2020-11-12] MEDS ORDERED: GABAPENTIN 100 MG CAPSULE ONE (09:52)
[2020-11-12] MEDS ORDERED: DULoxetine HCL 30 MG CAPSULE.DR PO ONE (09:52)
[2020-11-12 10:34] LABS: POTASSIUM 3.6 mmol/L (3.5-5.1)
[2020-11-12 10:35] LABS: BLOOD UREA NITROGEN 30.6 mg/dL (7-18)
[2020-11-12 10:39] LABS: CREATININE 1.4 mg/dL (0.55-1.3)
[2020-11-12] MEDS: GABAPENTIN 100 MG CAPSULE PO SCH (12:30)
[2020-11-12] MEDS: metoPROLOL SUCCINATE 25 MG TAB.SR.24H (FP) PO SCH (12:30)
[2020-11-12] MEDS: LACTULOSE 20 GM/30 ML UDC (FOR ORAL USE ONLY) PO SCH (12:30)
[2020-11-12] MEDS: CARBIDOPA/LEVODOPA 25/100 TABLET (FP) PO SCH (12:30)
[2020-11-12] MEDS: TORSEMIDE 20 MG TABLET (FP) PO SCH (12:30)
[2020-11-12] MEDS: ASPIRIN COATED 81 MG TABLET.EC PO SCH (12:30)
[2020-11-12] MEDS: FERROUS SO4 325 MG TABLET (FP) PO SCH (12:30)
[2020-11-12] MEDS: MULTIVITAMINS (DAILY MVI) TABLET (FP) PO SCH (12:30)
[2020-11-12] MEDS: DULoxetine HCL 30 MG CAPSULE.DR PO SCH (12:30)
[2020-11-12] MEDS: CEFTRIAXONE 1 GM in DEXTROSE 5%-WATER - 50 ML IVPB SCH (14:10)
[2020-11-12] MEDS ORDERED: ATORVASTATIN CA 40 MG TABLET (FP) ONE (23:42)
[2020-11-12] MEDS: ATORVASTATIN CA 40 MG TABLET (FP) PO SCH (23:44)
[2020-11-13] MEDS: INSULIN (LEVEMIR) 100 UNITS/ML UNITS SQ SCH (06:21)
[2020-11-13] MEDS: INSULIN SLIDING SCALE (NOVOLOG) 1 VIAL SQ SCH ×4 (06:21→21:12)
[2020-11-13 06:39] LABS: HEMATOCRIT 29.7 % (35.4-49); HEMOGLOBIN 9.7 GM/dL (11.7-16.9); MCH 33.2 pg (25.7-33.7); MCHC 32.5 g/dl (32.0-35.9); MEAN PLT VOLUME 8.7 fl (7.5-11.1); PLATELET COUNT 210 K/MM3 (134-434); RBC 2.91 M/mm3 (4.00-5.60); RDW 16.5 % (11.9-15.9); WHITE BLOOD COUNT 6.2 K/mm3 (4.0-10.0)
[2020-11-13 06:59] LABS: POTASSIUM 3.5 mmol/L (3.5-5.1)
[2020-11-13 07:06] LABS: CALCIUM 8.9 mg/dL (8.5-10.1)
[2020-11-13 07:07] LABS: BLOOD UREA NITROGEN 22.1 mg/dL (7-18)
[2020-11-13 07:10] LABS: CREATININE 1.1 mg/dL (0.55-1.3)
[2020-11-13] MEDS: SENNOSIDES/DOCUSATE COMBO (SENNA PLUS) TABLET (UD) PO SCH ×2 (08:43→21:11)
[2020-11-13] MEDS: CARBIDOPA/LEVODOPA 25/100 TABLET (FP) PO SCH ×3 (08:43→21:12)
[2020-11-13] MEDS ORDERED: DEXTROSE 5%-WATER - 50 ML IVPB ONE (09:22)
[2020-11-13] MEDS ORDERED: cefTRIAXone SODIUM 1 GM VIAL ONE (09:22)
[2020-11-13] MEDS ORDERED: PT OWN MED DRAWER 7, Y5N ONE (09:24)
[2020-11-13] MEDS: HEPARIN SOD,PORK IN 0.45% NACL 25,000 UNITS/500 ML INFUS.BAG IVPB SCH ×2 (09:33→09:46)
[2020-11-13] MEDS: MULTIVITAMINS (DAILY MVI) TABLET (FP) PO SCH (09:36)
[2020-11-13] MEDS: DULoxetine HCL 30 MG CAPSULE.DR PO SCH (09:36)
[2020-11-13] MEDS: TAMSULOSIN HCL 0.4 MG CAP PO SCH (09:36)
[2020-11-13] MEDS: FERROUS SO4 325 MG TABLET (FP) PO SCH (09:37)
[2020-11-13] MEDS: ASPIRIN COATED 81 MG TABLET.EC PO SCH (09:37)
[2020-11-13] MEDS: GABAPENTIN 100 MG CAPSULE PO SCH (09:37)
[2020-11-13] MEDS: TORSEMIDE 20 MG TABLET (FP) PO SCH (09:37)
[2020-11-13] MEDS: metoPROLOL SUCCINATE 25 MG TAB.SR.24H (FP) PO SCH (09:37)
[2020-11-13] MEDS: LACTULOSE 20 GM/30 ML UDC (FOR ORAL USE ONLY) PO SCH (09:38)
[2020-11-13] MEDS: CEFTRIAXONE 1 GM in DEXTROSE 5%-WATER - 50 ML IVPB SCH (09:39)
[2020-11-13] MEDS: ATORVASTATIN CA 40 MG TABLET (FP) PO SCH (21:11)
[2020-11-14] MEDS: HEPARIN SOD,PORK IN 0.45% NACL 25,000 UNITS/500 ML INFUS.BAG IVPB SCH ×2 (00:44→11:07)
[2020-11-14] MEDS: INSULIN SLIDING SCALE (NOVOLOG) 1 VIAL SQ SCH ×4 (06:36→21:18)
[2020-11-14] MEDS: INSULIN (LEVEMIR) 100 UNITS/ML UNITS SQ SCH (06:36)
[2020-11-14] MEDS ORDERED: PT OWN MED DRAWER 7, Y5N ONE ×2 (09:20→11:54)
[2020-11-14] MEDS ORDERED: cefTRIAXone SODIUM 1 GM VIAL ONE (09:20)
[2020-11-14] MEDS ORDERED: DEXTROSE 5%-WATER - 50 ML IVPB ONE (09:21)
[2020-11-14] MEDS: TORSEMIDE 20 MG TABLET (FP) PO SCH (09:28)
[2020-11-14] MEDS: GABAPENTIN 100 MG CAPSULE PO SCH (09:28)
[2020-11-14] MEDS: TAMSULOSIN HCL 0.4 MG CAP PO SCH (09:28)
[2020-11-14] MEDS: FERROUS SO4 325 MG TABLET (FP) PO SCH (09:28)
[2020-11-14] MEDS: CARBIDOPA/LEVODOPA 25/100 TABLET (FP) PO SCH ×2 (09:30→21:17)
[2020-11-14] MEDS: DULoxetine HCL 30 MG CAPSULE.DR PO SCH (09:31)
[2020-11-14] MEDS: metoPROLOL SUCCINATE 25 MG TAB.SR.24H (FP) PO SCH (09:31)
[2020-11-14] MEDS: MULTIVITAMINS (DAILY MVI) TABLET (FP) PO SCH (09:31)
[2020-11-14] MEDS: ASPIRIN COATED 81 MG TABLET.EC PO SCH (09:31)
[2020-11-14] MEDS: LACTULOSE 20 GM/30 ML UDC (FOR ORAL USE ONLY) PO SCH (09:32)
[2020-11-14] MEDS: CEFTRIAXONE 1 GM in DEXTROSE 5%-WATER - 50 ML IVPB SCH (09:32)
[2020-11-14 10:08] LABS: HEMATOCRIT 30.4 % (35.4-49); HEMOGLOBIN 9.5 GM/dL (11.7-16.9); MCH 32.7 pg (25.7-33.7); MCHC 31.3 g/dl (32.0-35.9); MEAN CELL VOLUME 104.4 fl (80-96); PLATELET COUNT 193 K/MM3 (134-434); RBC 2.91 M/mm3 (4.00-5.60); RDW 17.1 % (11.9-15.9); WHITE BLOOD COUNT 6.5 K/mm3 (4.0-10.0)
[2020-11-14] MEDS: APALUTAMIDE 60 MG PO SCH (11:53)
[2020-11-14] MEDS ORDERED: dilTIAZem HCL 60 MG TABLET PO ONE (13:23)
[2020-11-14] MEDS ORDERED: MEROPENEM 1 GM VIAL (RESTRICTED TO ID) IVPB ONE (17:07)
[2020-11-14] MEDS ORDERED: DEXTROSE 5%-WATER 100 ML IVPB ONE (17:07)
[2020-11-14] MEDS: MEROPENEM 1 GM in DEXTROSE 5%-WATER 100 ML IVPB SCH (17:12)
[2020-11-14] MEDS: ATORVASTATIN CA 40 MG TABLET (FP) PO SCH (21:17)
[2020-11-14] MEDS: SENNOSIDES/DOCUSATE COMBO (SENNA PLUS) TABLET (UD) PO SCH (21:18)
[2020-11-14] MEDS: POLYETHYLENE GLYCOL 3350 119 GM BTL PO SCH (23:12)
[2020-11-15] MEDS ORDERED: DEXTROSE 5%-WATER 100 ML IVPB ONE ×3 (02:00→17:47)
[2020-11-15] MEDS ORDERED: MEROPENEM 1 GM VIAL (RESTRICTED TO ID) IVPB ONE ×3 (02:00→17:47)
[2020-11-15] MEDS: HEPARIN SOD,PORK IN 0.45% NACL 25,000 UNITS/500 ML INFUS.BAG IVPB SCH (02:10)
[2020-11-15] MEDS: MEROPENEM 1 GM in DEXTROSE 5%-WATER 100 ML IVPB SCH ×3 (02:12→18:19)
[2020-11-15] MEDS ORDERED: PT OWN MED DRAWER 7, Y5N ONE ×2 (06:21→07:42)
[2020-11-15] MEDS: ALBUTEROL SO4 2.5/IPRATROPIUM 0.5 INH SOL 3 ML VIAL.NEB. NEB PRN (06:34)
[2020-11-15 06:41] LABS: BASO % 1.9 % (0-2.0); EOS % 5.9 % (0-4.5); HEMATOCRIT 33.9 % (35.4-49); HEMOGLOBIN 10.6 GM/dL (11.7-16.9); LYMPH % 12.2 % (8-40); MCH 32.5 pg (25.7-33.7); MCHC 31.1 g/dl (32.0-35.9); MEAN CELL VOLUME 104.4 fl (80-96); MEAN PLT VOLUME 8.7 fl (7.5-11.1); MONO % 9.5 % (3.8-10.2); NEUT % 70.5 % (42.8-82.8); PLATELET COUNT 188 K/MM3 (134-434); RBC 3.24 M/mm3 (4.00-5.60); RDW 17.1 % (11.9-15.9); WHITE BLOOD COUNT 6.7 K/mm3 (4.0-10.0)
[2020-11-15 06:48] LABS: INR 1.2 (0.83-1.09); PROTHROMBIN TIME (PATIENT) 14.7 SEC (9.7-13.0)
[2020-11-15 06:50] LABS: ACTIVATED PTT 63.9 SECONDS (25.2-36.5)
[2020-11-15] MEDS: INSULIN (LEVEMIR) 100 UNITS/ML UNITS SQ SCH (06:55)
[2020-11-15] MEDS: INSULIN SLIDING SCALE (NOVOLOG) 1 VIAL SQ SCH ×4 (06:55→22:14)
[2020-11-15] MEDS: APALUTAMIDE 60 MG PO SCH ×2 (06:56→07:16)
[2020-11-15 07:02] LABS: POTASSIUM 3.8 mmol/L (3.5-5.1)
[2020-11-15 07:03] LABS: CALCIUM 9.4 mg/dL (8.5-10.1)
[2020-11-15 07:04] LABS: BLOOD UREA NITROGEN 19.8 mg/dL (7-18); MAGNESIUM 1.7 mg/dL (1.8-2.4)
[2020-11-15 07:07] LABS: CREATININE 1.1 mg/dL (0.55-1.3); PHOSPHOROUS 3.6 mg/dL (2.5-4.9)
[2020-11-15] MEDS: TAMSULOSIN HCL 0.4 MG CAP PO SCH (08:39)
[2020-11-15] MEDS: FERROUS SO4 325 MG TABLET (FP) PO SCH (10:51)
[2020-11-15] MEDS: DULoxetine HCL 30 MG CAPSULE.DR PO SCH (10:51)
[2020-11-15] MEDS: TORSEMIDE 20 MG TABLET (FP) PO SCH (10:51)
[2020-11-15] MEDS: GABAPENTIN 100 MG CAPSULE PO SCH (10:51)
[2020-11-15] MEDS: CARBIDOPA/LEVODOPA 25/100 TABLET (FP) PO SCH ×2 (10:51→22:13)
[2020-11-15] MEDS: LACTULOSE 20 GM/30 ML UDC (FOR ORAL USE ONLY) PO SCH (10:51)
[2020-11-15] MEDS: MULTIVITAMINS (DAILY MVI) TABLET (FP) PO SCH (10:52)
[2020-11-15] MEDS: ASPIRIN COATED 81 MG TABLET.EC PO SCH (10:52)
[2020-11-15] MEDS: WARFARIN NA 7.5 MG TABLET (FP) PO SCH (18:19)
[2020-11-15] MEDS: ATORVASTATIN CA 40 MG TABLET (FP) PO SCH (22:13)
[2020-11-15] MEDS: SENNOSIDES/DOCUSATE COMBO (SENNA PLUS) TABLET (UD) PO SCH (22:13)
[2020-11-15] MEDS: POLYETHYLENE GLYCOL 3350 119 GM BTL PO SCH (22:13)
[2020-11-16] MEDS ORDERED: MEROPENEM 1 GM VIAL (RESTRICTED TO ID) IVPB ONE ×3 (01:24→18:36)
[2020-11-16] MEDS ORDERED: DEXTROSE 5%-WATER 100 ML IVPB ONE ×3 (01:24→18:36)
[2020-11-16] MEDS: MEROPENEM 1 GM in DEXTROSE 5%-WATER 100 ML IVPB SCH ×3 (01:28→18:44)
[2020-11-16] MEDS: HEPARIN SOD,PORK IN 0.45% NACL 25,000 UNITS/500 ML INFUS.BAG IVPB SCH ×3 (01:29→23:41)
[2020-11-16] MEDS: ALBUTEROL SO4 2.5/IPRATROPIUM 0.5 INH SOL 3 ML VIAL.NEB. NEB PRN ×2 (03:20→22:01)
[2020-11-16] MEDS ORDERED: PT OWN MED DRAWER 7, Y5N ONE (06:03)
[2020-11-16] MEDS: APALUTAMIDE 60 MG PO SCH (06:23)
[2020-11-16] MEDS: INSULIN (LEVEMIR) 100 UNITS/ML UNITS SQ SCH (06:28)
[2020-11-16] MEDS: INSULIN SLIDING SCALE (NOVOLOG) 1 VIAL SQ SCH ×4 (06:28→21:54)
[2020-11-16] MEDS: TORSEMIDE 20 MG TABLET (FP) PO SCH (09:19)
[2020-11-16] MEDS: CARBIDOPA/LEVODOPA 25/100 TABLET (FP) PO SCH ×2 (09:19→21:52)
[2020-11-16] MEDS: MULTIVITAMINS (DAILY MVI) TABLET (FP) PO SCH (09:19)
[2020-11-16] MEDS: FERROUS SO4 325 MG TABLET (FP) PO SCH (09:19)
[2020-11-16] MEDS: GABAPENTIN 100 MG CAPSULE PO SCH (09:19)
[2020-11-16] MEDS: TAMSULOSIN HCL 0.4 MG CAP PO SCH (09:19)
[2020-11-16] MEDS: ASPIRIN COATED 81 MG TABLET.EC PO SCH (09:20)
[2020-11-16] MEDS: DULoxetine HCL 30 MG CAPSULE.DR PO SCH (09:20)
[2020-11-16] MEDS: LACTULOSE 20 GM/30 ML UDC (FOR ORAL USE ONLY) PO SCH (09:21)
[2020-11-16 11:30] LABS: HEMOGLOBIN 9.6 GM/dL (11.7-16.9); MCHC 31.9 g/dl (32.0-35.9); MEAN CELL VOLUME 103.2 fl (80-96); PLATELET COUNT 190 K/MM3 (134-434); RBC 2.91 M/mm3 (4.00-5.60); RDW 17.5 % (11.9-15.9); WHITE BLOOD COUNT 6.9 K/mm3 (4.0-10.0)
[2020-11-16 11:49] LABS: POTASSIUM 3.8 mmol/L (3.5-5.1)
[2020-11-16 11:51] LABS: INR 1.31 (0.83-1.09)
[2020-11-16 11:54] LABS: ACTIVATED PTT 60.6 SECONDS (25.2-36.5)
[2020-11-16 11:59] LABS: BLOOD UREA NITROGEN 19.7 mg/dL (7-18); CALCIUM 9.8 mg/dL (8.5-10.1)
[2020-11-16 12:03] LABS: CREATININE 1.1 mg/dL (0.55-1.3)
[2020-11-16] MEDS: WARFARIN NA 7.5 MG TABLET (FP) PO SCH (18:44)
[2020-11-16] MEDS: ATORVASTATIN CA 40 MG TABLET (FP) PO SCH (21:52)
[2020-11-16] MEDS: SENNOSIDES/DOCUSATE COMBO (SENNA PLUS) TABLET (UD) PO SCH (21:52)
[2020-11-16] MEDS: POLYETHYLENE GLYCOL 3350 119 GM BTL PO SCH (21:54)
[2020-11-17] MEDS ORDERED: MEROPENEM 1 GM VIAL (RESTRICTED TO ID) IVPB ONE ×3 (01:01→17:10)
[2020-11-17] MEDS ORDERED: DEXTROSE 5%-WATER 100 ML IVPB ONE ×3 (01:02→17:10)
[2020-11-17] MEDS: MEROPENEM 1 GM in DEXTROSE 5%-WATER 100 ML IVPB SCH ×3 (01:04→17:15)
[2020-11-17] MEDS: INSULIN (LEVEMIR) 100 UNITS/ML UNITS SQ SCH (06:35)
[2020-11-17] MEDS: INSULIN SLIDING SCALE (NOVOLOG) 1 VIAL SQ SCH ×4 (06:36→21:38)
[2020-11-17] MEDS: APALUTAMIDE 60 MG PO SCH (06:36)
[2020-11-17 07:07] LABS: INR 1.48 (0.83-1.09)
[2020-11-17 07:15] LABS: POTASSIUM 4.2 mmol/L (3.5-5.1)
[2020-11-17 07:17] LABS: BLOOD UREA NITROGEN 19.3 mg/dL (7-18); CALCIUM 9.5 mg/dL (8.5-10.1)
[2020-11-17 07:20] LABS: CREATININE 1.1 mg/dL (0.55-1.3)
[2020-11-17] MEDS: LACTULOSE 20 GM/30 ML UDC (FOR ORAL USE ONLY) PO SCH (09:23)
[2020-11-17] MEDS: TORSEMIDE 20 MG TABLET (FP) PO SCH (09:24)
[2020-11-17] MEDS: CARBIDOPA/LEVODOPA 25/100 TABLET (FP) PO SCH ×2 (09:24→21:38)
[2020-11-17] MEDS: TAMSULOSIN HCL 0.4 MG CAP PO SCH (09:24)
[2020-11-17] MEDS: MULTIVITAMINS (DAILY MVI) TABLET (FP) PO SCH (09:24)
[2020-11-17] MEDS: GABAPENTIN 100 MG CAPSULE PO SCH (09:24)
[2020-11-17] MEDS: DULoxetine HCL 30 MG CAPSULE.DR PO SCH (09:24)
[2020-11-17] MEDS: ASPIRIN COATED 81 MG TABLET.EC PO SCH (09:25)
[2020-11-17] MEDS: FERROUS SO4 325 MG TABLET (FP) PO SCH (09:25)
[2020-11-17] MEDS: ALBUTEROL SO4 2.5/IPRATROPIUM 0.5 INH SOL 3 ML VIAL.NEB. NEB PRN (09:41)
[2020-11-17] MEDS: WARFARIN NA 10 MG TABLET PO SCH (17:16)
[2020-11-17] MEDS: SENNOSIDES/DOCUSATE COMBO (SENNA PLUS) TABLET (UD) PO SCH (21:38)
[2020-11-17] MEDS: ATORVASTATIN CA 40 MG TABLET (FP) PO SCH (21:38)
[2020-11-17] MEDS: POLYETHYLENE GLYCOL 3350 119 GM BTL PO SCH (21:39)
[2020-11-18] MEDS: ALBUTEROL SO4 2.5/IPRATROPIUM 0.5 INH SOL 3 ML VIAL.NEB. NEB PRN ×3 (00:23→16:59)
[2020-11-18] MEDS ORDERED: DEXTROSE 5%-WATER 100 ML IVPB ONE ×3 (02:28→17:15)
[2020-11-18] MEDS ORDERED: MEROPENEM 1 GM VIAL (RESTRICTED TO ID) IVPB ONE ×3 (02:28→17:15)
[2020-11-18] MEDS: MEROPENEM 1 GM in DEXTROSE 5%-WATER 100 ML IVPB SCH ×3 (02:35→17:20)
[2020-11-18] MEDS: HEPARIN SOD,PORK IN 0.45% NACL 25,000 UNITS/500 ML INFUS.BAG IVPB SCH (02:35)
[2020-11-18] MEDS: APALUTAMIDE 60 MG PO SCH (07:10)
[2020-11-18] MEDS: INSULIN (LEVEMIR) 100 UNITS/ML UNITS SQ SCH (07:10)
[2020-11-18] MEDS: INSULIN SLIDING SCALE (NOVOLOG) 1 VIAL SQ SCH ×4 (07:48→22:08)
[2020-11-18 07:59] LABS: INR 2.77 (0.83-1.09); PROTHROMBIN TIME (PATIENT) 32.5 SEC (9.7-13.0)
[2020-11-18] MEDS: TAMSULOSIN HCL 0.4 MG CAP PO SCH (08:48)
[2020-11-18] MEDS: DULoxetine HCL 30 MG CAPSULE.DR PO SCH (10:17)
[2020-11-18] MEDS: GABAPENTIN 100 MG CAPSULE PO SCH (10:17)
[2020-11-18] MEDS: TORSEMIDE 20 MG TABLET (FP) PO SCH (10:17)
[2020-11-18] MEDS: CARBIDOPA/LEVODOPA 25/100 TABLET (FP) PO SCH ×2 (10:17→21:33)
[2020-11-18] MEDS: FERROUS SO4 325 MG TABLET (FP) PO SCH (10:17)
[2020-11-18] MEDS: MULTIVITAMINS (DAILY MVI) TABLET (FP) PO SCH (10:17)
[2020-11-18] MEDS: LACTULOSE 20 GM/30 ML UDC (FOR ORAL USE ONLY) PO SCH (10:18)
[2020-11-18] MEDS: ASPIRIN COATED 81 MG TABLET.EC PO SCH (10:18)
[2020-11-18] MEDS: WARFARIN NA 10 MG TABLET PO SCH (17:19)
[2020-11-18] MEDS: ATORVASTATIN CA 40 MG TABLET (FP) PO SCH (21:31)
[2020-11-18] MEDS: POLYETHYLENE GLYCOL 3350 119 GM BTL PO SCH (21:32)
[2020-11-18] MEDS: SENNOSIDES/DOCUSATE COMBO (SENNA PLUS) TABLET (UD) PO SCH (21:33)
[2020-11-19] MEDS ORDERED: MEROPENEM 1 GM VIAL (RESTRICTED TO ID) IVPB ONE ×3 (01:28→17:09)
[2020-11-19] MEDS ORDERED: DEXTROSE 5%-WATER 100 ML IVPB ONE ×3 (01:28→17:09)
[2020-11-19] MEDS: MEROPENEM 1 GM in DEXTROSE 5%-WATER 100 ML IVPB SCH ×3 (01:33→17:27)
[2020-11-19] MEDS: ALBUTEROL SO4 2.5/IPRATROPIUM 0.5 INH SOL 3 ML VIAL.NEB. NEB PRN ×2 (05:24→15:25)
[2020-11-19] MEDS: APALUTAMIDE 60 MG PO SCH (06:05)
[2020-11-19] MEDS: INSULIN SLIDING SCALE (NOVOLOG) 1 VIAL SQ SCH ×4 (06:05→21:28)
[2020-11-19] MEDS: INSULIN (LEVEMIR) 100 UNITS/ML UNITS SQ SCH (06:06)
[2020-11-19] MEDS: TAMSULOSIN HCL 0.4 MG CAP PO SCH (09:17)
[2020-11-19] MEDS: GABAPENTIN 100 MG CAPSULE PO SCH (09:18)
[2020-11-19] MEDS: TORSEMIDE 20 MG TABLET (FP) PO SCH (09:18)
[2020-11-19] MEDS: LACTULOSE 20 GM/30 ML UDC (FOR ORAL USE ONLY) PO SCH (09:18)
[2020-11-19] MEDS: MULTIVITAMINS (DAILY MVI) TABLET (FP) PO SCH (09:18)
[2020-11-19] MEDS: CARBIDOPA/LEVODOPA 25/100 TABLET (FP) PO SCH ×2 (09:18→21:24)
[2020-11-19] MEDS: FERROUS SO4 325 MG TABLET (FP) PO SCH (09:18)
[2020-11-19] MEDS: DULoxetine HCL 30 MG CAPSULE.DR PO SCH (09:18)
[2020-11-19 11:12] LABS: BASO % 0.7 % (0-2.0); EOS % 6.2 % (0-4.5); HEMATOCRIT 30.7 % (35.4-49); HEMOGLOBIN 9.6 GM/dL (11.7-16.9); LYMPH % 15.9 % (8-40); MCH 32.5 pg (25.7-33.7); MCHC 31.4 g/dl (32.0-35.9); MEAN CELL VOLUME 103.4 fl (80-96); MEAN PLT VOLUME 8.7 fl (7.5-11.1); NEUT % 66.2 % (42.8-82.8); PLATELET COUNT 214 K/MM3 (134-434); RBC 2.96 M/mm3 (4.00-5.60); WHITE BLOOD COUNT 6.1 K/mm3 (4.0-10.0)
[2020-11-19 11:36] LABS: CALCIUM 9.6 mg/dL (8.5-10.1)
[2020-11-19 11:37] LABS: ALBUMIN 3.4 g/dl (3.4-5.0); BLOOD UREA NITROGEN 23.5 mg/dL (7-18)
[2020-11-19 11:40] LABS: CREATININE 1.2 mg/dL (0.55-1.3)
[2020-11-19 12:02] LABS: INR 4.58 (0.83-1.09)
[2020-11-19 12:08] LABS: POTASSIUM 4.2 mmol/L (3.5-5.1)
[2020-11-19 12:11] LABS: BILIRUBIN,TOTAL 0.4 mg/dL (0.2-1)
[2020-11-19] MEDS ORDERED: WARFARIN NA 7.5 MG TABLET (FP) PO SCH (18:00)
[2020-11-19] MEDS: SENNOSIDES/DOCUSATE COMBO (SENNA PLUS) TABLET (UD) PO SCH (21:24)
[2020-11-19] MEDS: POLYETHYLENE GLYCOL 3350 119 GM BTL PO SCH (21:24)
[2020-11-19] MEDS: ATORVASTATIN CA 40 MG TABLET (FP) PO SCH (21:24)
[2020-11-19] MEDS ORDERED: ALBUTEROL SO4 2.5/IPRATROPIUM 0.5 INH SOL 3 ML VIAL.NEB. NEB ONE (23:17)
[2020-11-19] MEDS ORDERED: ALBUTEROL SO4 2.5/IPRATROPIUM 0.5 INH SOL 3 ML VIAL.NEB. NEB PRN (23:20)
[2020-11-20] MEDS ORDERED: MEROPENEM 1 GM VIAL (RESTRICTED TO ID) IVPB ONE ×3 (01:00→17:06)
[2020-11-20] MEDS ORDERED: DEXTROSE 5%-WATER 100 ML IVPB ONE ×3 (01:00→17:06)
[2020-11-20] MEDS: MEROPENEM 1 GM in DEXTROSE 5%-WATER 100 ML IVPB SCH ×3 (01:14→17:15)
[2020-11-20] MEDS ORDERED: ALBUTEROL SO4 2.5/IPRATROPIUM 0.5 INH SOL 3 ML VIAL.NEB. NEB PRN (05:58)
[2020-11-20] MEDS ORDERED: PT OWN MED DRAWER 7, Y5N ONE ×2 (06:03→06:13)
[2020-11-20] MEDS: APALUTAMIDE 60 MG PO SCH (06:15)
[2020-11-20] MEDS: INSULIN SLIDING SCALE (NOVOLOG) 1 VIAL SQ SCH ×4 (06:17→22:36)
[2020-11-20] MEDS: INSULIN (LEVEMIR) 100 UNITS/ML UNITS SQ SCH (07:08)
[2020-11-20 08:32] LABS: HEMATOCRIT 29.3 % (35.4-49); HEMOGLOBIN 9.4 GM/dL (11.7-16.9); LYMPH % 16.5 % (8-40); MCH 33.3 pg (25.7-33.7); MCHC 32.2 g/dl (32.0-35.9); MEAN CELL VOLUME 103.4 fl (80-96); MEAN PLT VOLUME 9.1 fl (7.5-11.1); NEUT % 61.1 % (42.8-82.8); PLATELET COUNT 202 K/MM3 (134-434); RBC 2.83 M/mm3 (4.00-5.60); RDW 17.1 % (11.9-15.9); WHITE BLOOD COUNT 5.1 K/mm3 (4.0-10.0)
[2020-11-20 08:33] LABS: BASO % 0.8 % (0-2.0); EOS % 9.6 % (0-4.5)
[2020-11-20 08:36] LABS: PROTHROMBIN TIME (PATIENT) 54.8 SEC (9.7-13.0)
[2020-11-20 08:47] LABS: POTASSIUM 4.6 mmol/L (3.5-5.1)
[2020-11-20 08:52] LABS: CALCIUM 9.8 mg/dL (8.5-10.1)
[2020-11-20 08:53] LABS: ALBUMIN 3.2 g/dl (3.4-5.0); BLOOD UREA NITROGEN 22.5 mg/dL (7-18)
[2020-11-20 08:56] LABS: CREATININE 1.1 mg/dL (0.55-1.3)
[2020-11-20 08:57] LABS: BILIRUBIN,TOTAL 0.5 mg/dL (0.2-1); TOT PROT 5.8 g/dl (6.4-8.2)
[2020-11-20] MEDS: MULTIVITAMINS (DAILY MVI) TABLET (FP) PO SCH (09:21)
[2020-11-20] MEDS: CARBIDOPA/LEVODOPA 25/100 TABLET (FP) PO SCH ×2 (09:21→22:35)
[2020-11-20] MEDS: DULoxetine HCL 30 MG CAPSULE.DR PO SCH (09:21)
[2020-11-20] MEDS: FERROUS SO4 325 MG TABLET (FP) PO SCH (09:21)
[2020-11-20] MEDS: LACTULOSE 20 GM/30 ML UDC (FOR ORAL USE ONLY) PO SCH (09:22)
[2020-11-20] MEDS: TAMSULOSIN HCL 0.4 MG CAP PO SCH (09:22)
[2020-11-20] MEDS: GABAPENTIN 100 MG CAPSULE PO SCH (09:22)
[2020-11-20] MEDS: TORSEMIDE 20 MG TABLET (FP) PO SCH (09:22)
[2020-11-20 09:59] LABS: INR 4.66 (0.83-1.09)
[2020-11-20] MEDS: ALBUTEROL SO4 2.5/IPRATROPIUM 0.5 INH SOL 3 ML VIAL.NEB. NEB PRN ×2 (14:05→20:30)
[2020-11-20] MEDS: POLYETHYLENE GLYCOL 3350 119 GM BTL PO SCH (22:35)
[2020-11-20] MEDS: SENNOSIDES/DOCUSATE COMBO (SENNA PLUS) TABLET (UD) PO SCH (22:35)
[2020-11-20] MEDS: ATORVASTATIN CA 40 MG TABLET (FP) PO SCH (22:35)
[2020-11-21] MEDS ORDERED: DEXTROSE 5%-WATER 100 ML IVPB ONE ×3 (01:43→17:46)
[2020-11-21] MEDS ORDERED: MEROPENEM 1 GM VIAL (RESTRICTED TO ID) IVPB ONE ×3 (01:43→17:46)
[2020-11-21] MEDS: MEROPENEM 1 GM in DEXTROSE 5%-WATER 100 ML IVPB SCH ×3 (01:45→17:48)
[2020-11-21] MEDS: APALUTAMIDE 60 MG PO SCH (05:59)
[2020-11-21] MEDS: INSULIN SLIDING SCALE (NOVOLOG) 1 VIAL SQ SCH ×4 (05:59→21:21)
[2020-11-21] MEDS: INSULIN (LEVEMIR) 100 UNITS/ML UNITS SQ SCH (05:59)
[2020-11-21] MEDS ORDERED: PT OWN MED DRAWER 7, Y5N ONE (06:01)
[2020-11-21 07:10] LABS: HEMATOCRIT 30.8 % (35.4-49); MCH 33.2 pg (25.7-33.7); MCHC 32.5 g/dl (32.0-35.9); PLATELET COUNT 224 K/MM3 (134-434); RBC 3.02 M/mm3 (4.00-5.60); RDW 16.3 % (11.9-15.9); WHITE BLOOD COUNT 6.4 K/mm3 (4.0-10.0)
[2020-11-21 07:16] LABS: INR 3.33 (0.83-1.09); PROTHROMBIN TIME (PATIENT) 39.6 SEC (9.7-13.0)
[2020-11-21 07:29] LABS: POTASSIUM 4.2 mmol/L (3.5-5.1)
[2020-11-21 07:47] LABS: CALCIUM 9.8 mg/dL (8.5-10.1)
[2020-11-21 07:48] LABS: BLOOD UREA NITROGEN 22.9 mg/dL (7-18)
[2020-11-21] MEDS: ALBUTEROL SO4 2.5/IPRATROPIUM 0.5 INH SOL 3 ML VIAL.NEB. NEB PRN ×2 (09:19→21:03)
[2020-11-21] MEDS: TAMSULOSIN HCL 0.4 MG CAP PO SCH (09:31)
[2020-11-21] MEDS: TORSEMIDE 20 MG TABLET (FP) PO SCH (09:31)
[2020-11-21] MEDS: DULoxetine HCL 30 MG CAPSULE.DR PO SCH (09:32)
[2020-11-21] MEDS: FERROUS SO4 325 MG TABLET (FP) PO SCH (09:32)
[2020-11-21] MEDS: LACTULOSE 20 GM/30 ML UDC (FOR ORAL USE ONLY) PO SCH (09:32)
[2020-11-21] MEDS: GABAPENTIN 100 MG CAPSULE PO SCH (09:32)
[2020-11-21] MEDS: CARBIDOPA/LEVODOPA 25/100 TABLET (FP) PO SCH ×2 (09:32→21:20)
[2020-11-21] MEDS: MULTIVITAMINS (DAILY MVI) TABLET (FP) PO SCH (09:32)
[2020-11-21] MEDS ORDERED: WARFARIN NA 2 MG TABLET PO SCH (18:15)
[2020-11-21] MEDS: WARFARIN NA 2 MG TABLET PO SCH (18:33)
[2020-11-21] MEDS: ATORVASTATIN CA 40 MG TABLET (FP) PO SCH (21:20)
[2020-11-21] MEDS: SENNOSIDES/DOCUSATE COMBO (SENNA PLUS) TABLET (UD) PO SCH (21:20)
[2020-11-21] MEDS: POLYETHYLENE GLYCOL 3350 119 GM BTL PO SCH (21:21)
[2020-11-22] MEDS: ALBUTEROL SO4 2.5/IPRATROPIUM 0.5 INH SOL 3 ML VIAL.NEB. NEB PRN ×3 (02:19→15:25)
[2020-11-22] MEDS ORDERED: MEROPENEM 1 GM VIAL (RESTRICTED TO ID) IVPB ONE ×3 (02:22→17:20)
[2020-11-22] MEDS ORDERED: DEXTROSE 5%-WATER 100 ML IVPB ONE ×3 (02:23→17:20)
[2020-11-22] MEDS: MEROPENEM 1 GM in DEXTROSE 5%-WATER 100 ML IVPB SCH ×3 (02:28→17:55)
[2020-11-22] MEDS: APALUTAMIDE 60 MG PO SCH (06:18)
[2020-11-22] MEDS: INSULIN (LEVEMIR) 100 UNITS/ML UNITS SQ SCH (06:18)
[2020-11-22] MEDS: INSULIN SLIDING SCALE (NOVOLOG) 1 VIAL SQ SCH ×4 (06:19→21:44)
[2020-11-22 07:08] LABS: POTASSIUM 4.2 mmol/L (3.5-5.1)
[2020-11-22 07:14] LABS: BLOOD UREA NITROGEN 24.7 mg/dL (7-18)
[2020-11-22 07:15] LABS: CALCIUM 9.5 mg/dL (8.5-10.1); MAGNESIUM 1.9 mg/dL (1.8-2.4)
[2020-11-22 07:17] LABS: CREATININE 1.1 mg/dL (0.55-1.3); PHOSPHOROUS 3.6 mg/dL (2.5-4.9)
[2020-11-22] MEDS: LACTULOSE 20 GM/30 ML UDC (FOR ORAL USE ONLY) PO SCH (10:06)
[2020-11-22] MEDS: FERROUS SO4 325 MG TABLET (FP) PO SCH (10:07)
[2020-11-22] MEDS: GABAPENTIN 100 MG CAPSULE PO SCH (10:07)
[2020-11-22] MEDS: CARBIDOPA/LEVODOPA 25/100 TABLET (FP) PO SCH ×2 (10:07→21:43)
[2020-11-22] MEDS: DULoxetine HCL 30 MG CAPSULE.DR PO SCH (10:07)
[2020-11-22] MEDS: TAMSULOSIN HCL 0.4 MG CAP PO SCH (10:07)
[2020-11-22] MEDS: MULTIVITAMINS (DAILY MVI) TABLET (FP) PO SCH (10:08)
[2020-11-22] MEDS: TORSEMIDE 20 MG TABLET (FP) PO SCH (10:08)
[2020-11-22 16:26] LABS: INR 2.9 (0.83-1.09); PROTHROMBIN TIME (PATIENT) 34.6 SEC (9.7-13.0)
[2020-11-22] MEDS: WARFARIN NA 2 MG TABLET PO SCH (17:55)
[2020-11-22] MEDS: ATORVASTATIN CA 40 MG TABLET (FP) PO SCH (21:43)
[2020-11-22] MEDS: POLYETHYLENE GLYCOL 3350 119 GM BTL PO SCH (21:43)
[2020-11-22] MEDS: SENNOSIDES/DOCUSATE COMBO (SENNA PLUS) TABLET (UD) PO SCH (21:43)
[2020-11-23] MEDS: ALBUTEROL SO4 2.5/IPRATROPIUM 0.5 INH SOL 3 ML VIAL.NEB. NEB PRN ×4 (00:07→21:00)
[2020-11-23] MEDS ORDERED: DEXTROSE 5%-WATER 100 ML IVPB ONE ×3 (01:23→17:29)
[2020-11-23] MEDS ORDERED: MEROPENEM 1 GM VIAL (RESTRICTED TO ID) IVPB ONE ×3 (01:23→17:28)
[2020-11-23] MEDS: MEROPENEM 1 GM in DEXTROSE 5%-WATER 100 ML IVPB SCH ×3 (01:29→17:33)
[2020-11-23] MEDS: APALUTAMIDE 60 MG PO SCH (06:15)
[2020-11-23] MEDS: INSULIN (LEVEMIR) 100 UNITS/ML UNITS SQ SCH (06:15)
[2020-11-23] MEDS: INSULIN SLIDING SCALE (NOVOLOG) 1 VIAL SQ SCH ×4 (06:17→21:15)
[2020-11-23 07:04] LABS: BASO % 0.9 % (0-2.0); EOS % 7.2 % (0-4.5); HEMATOCRIT 30.2 % (35.4-49); HEMOGLOBIN 9.8 GM/dL (11.7-16.9); LYMPH % 17.8 % (8-40); MCH 32.9 pg (25.7-33.7); MCHC 32.5 g/dl (32.0-35.9); MEAN CELL VOLUME 101.2 fl (80-96); MEAN PLT VOLUME 8.8 fl (7.5-11.1); MONO % 10.7 % (3.8-10.2); NEUT % 63.4 % (42.8-82.8); PLATELET COUNT 211 K/MM3 (134-434); RBC 2.99 M/mm3 (4.00-5.60); RDW 16.4 % (11.9-15.9); WHITE BLOOD COUNT 6.9 K/mm3 (4.0-10.0)
[2020-11-23 07:13] LABS: POTASSIUM 4.2 mmol/L (3.5-5.1)
[2020-11-23 07:16] LABS: CALCIUM 9.5 mg/dL (8.5-10.1)
[2020-11-23 07:17] LABS: ALBUMIN 3.5 g/dl (3.4-5.0); BLOOD UREA NITROGEN 30.4 mg/dL (7-18)
[2020-11-23 07:19] LABS: CREATININE 1.2 mg/dL (0.55-1.3)
[2020-11-23 07:22] LABS: BILIRUBIN,TOTAL 0.4 mg/dL (0.2-1); TOT PROT 6.3 g/dl (6.4-8.2)
[2020-11-23 07:23] LABS: INR 2.58 (0.83-1.09); PROTHROMBIN TIME (PATIENT) 30.9 SEC (9.7-13.0)
[2020-11-23] MEDS: TORSEMIDE 20 MG TABLET (FP) PO SCH (09:26)
[2020-11-23] MEDS: CARBIDOPA/LEVODOPA 25/100 TABLET (FP) PO SCH ×2 (09:26→21:15)
[2020-11-23] MEDS: GABAPENTIN 100 MG CAPSULE PO SCH (09:26)
[2020-11-23] MEDS: MULTIVITAMINS (DAILY MVI) TABLET (FP) PO SCH (09:26)
[2020-11-23] MEDS: FERROUS SO4 325 MG TABLET (FP) PO SCH (09:26)
[2020-11-23] MEDS: DULoxetine HCL 30 MG CAPSULE.DR PO SCH (09:26)
[2020-11-23] MEDS: TAMSULOSIN HCL 0.4 MG CAP PO SCH (09:26)
[2020-11-23] MEDS: LACTULOSE 20 GM/30 ML UDC (FOR ORAL USE ONLY) PO SCH (09:27)
[2020-11-23] MEDS ORDERED: TORSEMIDE 20 MG TABLET (FP) PO ONE (11:45)
[2020-11-23] MEDS: WARFARIN NA 2 MG TABLET PO SCH (17:33)
[2020-11-23] MEDS: POLYETHYLENE GLYCOL 3350 119 GM BTL PO SCH (21:15)
[2020-11-23] MEDS: SENNOSIDES/DOCUSATE COMBO (SENNA PLUS) TABLET (UD) PO SCH (21:15)
[2020-11-23] MEDS: ATORVASTATIN CA 40 MG TABLET (FP) PO SCH (21:15)
[2020-11-24] MEDS: MEROPENEM 1 GM in DEXTROSE 5%-WATER 100 ML IVPB SCH ×2 (01:22→11:17)
[2020-11-24] MEDS: INSULIN SLIDING SCALE (NOVOLOG) 1 VIAL SQ SCH ×4 (06:14→22:12)
[2020-11-24] MEDS: INSULIN (LEVEMIR) 100 UNITS/ML UNITS SQ SCH (06:16)
[2020-11-24] MEDS: APALUTAMIDE 60 MG PO SCH (06:16)
[2020-11-24] MEDS ORDERED: PT OWN MED DRAWER 7, Y5N ONE (06:18)
[2020-11-24] MEDS: ALBUTEROL SO4 2.5/IPRATROPIUM 0.5 INH SOL 3 ML VIAL.NEB. NEB PRN (07:55)
[2020-11-24 09:44] LABS: INR 2.03 (0.83-1.09); PROTHROMBIN TIME (PATIENT) 24.5 SEC (9.7-13.0)
[2020-11-24 09:53] LABS: POTASSIUM 4.2 mmol/L (3.5-5.1)
[2020-11-24] MEDS ORDERED: DEXTROSE 5%-WATER 100 ML IVPB ONE (09:54)
[2020-11-24] MEDS ORDERED: MEROPENEM 1 GM VIAL (RESTRICTED TO ID) IVPB ONE (09:54)
[2020-11-24] MEDS: GABAPENTIN 100 MG CAPSULE PO SCH (09:58)
[2020-11-24] MEDS: TORSEMIDE 20 MG TABLET (FP) PO SCH (09:58)
[2020-11-24] MEDS: DULoxetine HCL 30 MG CAPSULE.DR PO SCH (09:58)
[2020-11-24] MEDS: CARBIDOPA/LEVODOPA 25/100 TABLET (FP) PO SCH ×2 (09:58→21:57)
[2020-11-24] MEDS: TAMSULOSIN HCL 0.4 MG CAP PO SCH (09:58)
[2020-11-24] MEDS: FERROUS SO4 325 MG TABLET (FP) PO SCH (09:59)
[2020-11-24] MEDS: MULTIVITAMINS (DAILY MVI) TABLET (FP) PO SCH (09:59)
[2020-11-24] MEDS: LACTULOSE 20 GM/30 ML UDC (FOR ORAL USE ONLY) PO SCH (09:59)
[2020-11-24 10:01] LABS: CALCIUM 9.6 mg/dL (8.5-10.1)
[2020-11-24 10:02] LABS: BLOOD UREA NITROGEN 29.8 mg/dL (7-18); MAGNESIUM 1.9 mg/dL (1.8-2.4)
[2020-11-24 10:05] LABS: CREATININE 1.1 mg/dL (0.55-1.3)
[2020-11-24] MEDS: ALBUTEROL SO4 2.5/IPRATROPIUM 0.5 INH SOL 3 ML VIAL.NEB. NEB SCH ×3 (11:58→20:48)
[2020-11-24] MEDS: WARFARIN NA 2 MG TABLET PO SCH (17:03)
[2020-11-24] MEDS: SENNOSIDES/DOCUSATE COMBO (SENNA PLUS) TABLET (UD) PO SCH (21:57)
[2020-11-24] MEDS: ATORVASTATIN CA 40 MG TABLET (FP) PO SCH (21:57)
[2020-11-24] MEDS: POLYETHYLENE GLYCOL 3350 119 GM BTL PO SCH (22:00)
[2020-11-24] MEDS ORDERED: WARFARIN NA 2 MG TABLET PO ONE (22:56)
[2020-11-25] MEDS: ALBUTEROL SO4 0.083% IH SOL 2.5 MG/3 ML VIAL.NEB. NEB PRN (01:51)
[2020-11-25] MEDS: APALUTAMIDE 60 MG PO SCH (06:46)
[2020-11-25] MEDS: ALBUTEROL SO4 2.5/IPRATROPIUM 0.5 INH SOL 3 ML VIAL.NEB. NEB SCH ×4 (07:50→20:56)
[2020-11-25] MEDS: INSULIN SLIDING SCALE (NOVOLOG) 1 VIAL SQ SCH ×4 (08:11→22:53)
[2020-11-25] MEDS: INSULIN (LEVEMIR) 100 UNITS/ML UNITS SQ SCH (08:11)
[2020-11-25] MEDS: TAMSULOSIN HCL 0.4 MG CAP PO SCH (08:58)
[2020-11-25] MEDS ORDERED: PT OWN MED DRAWER 7, Y5N ONE (10:19)
[2020-11-25] MEDS: LACTULOSE 20 GM/30 ML UDC (FOR ORAL USE ONLY) PO SCH (10:22)
[2020-11-25] MEDS: DULoxetine HCL 30 MG CAPSULE.DR PO SCH (10:23)
[2020-11-25] MEDS: CARBIDOPA/LEVODOPA 25/100 TABLET (FP) PO SCH ×2 (10:24→21:44)
[2020-11-25] MEDS: TORSEMIDE 20 MG TABLET (FP) PO SCH (10:24)
[2020-11-25] MEDS: GABAPENTIN 100 MG CAPSULE PO SCH (10:24)
[2020-11-25] MEDS: FERROUS SO4 325 MG TABLET (FP) PO SCH (10:24)
[2020-11-25] MEDS: MULTIVITAMINS (DAILY MVI) TABLET (FP) PO SCH (10:25)
[2020-11-25 10:40] LABS: BASO % 0.9 % (0-2.0); EOS % 6.4 % (0-4.5); HEMATOCRIT 28.9 % (35.4-49); HEMOGLOBIN 9.5 GM/dL (11.7-16.9); INR 2.54 (0.83-1.09); LYMPH % 21.1 % (8-40); MCH 32.9 pg (25.7-33.7); MCHC 32.9 g/dl (32.0-35.9); MEAN PLT VOLUME 9.2 fl (7.5-11.1); MONO % 9.1 % (3.8-10.2); NEUT % 62.5 % (42.8-82.8); PLATELET COUNT 219 K/MM3 (134-434); PROTHROMBIN TIME (PATIENT) 29.9 SEC (9.7-13.0); RBC 2.89 M/mm3 (4.00-5.60); RDW 15.9 % (11.9-15.9); WHITE BLOOD COUNT 6.4 K/mm3 (4.0-10.0)
[2020-11-25 10:50] LABS: POTASSIUM 4.2 mmol/L (3.5-5.1)
[2020-11-25 11:09] LABS: ALBUMIN 3.5 g/dl (3.4-5.0); BLOOD UREA NITROGEN 30.3 mg/dL (7-18); CALCIUM 9.5 mg/dL (8.5-10.1)
[2020-11-25 11:12] LABS: CREATININE 1.2 mg/dL (0.55-1.3)
[2020-11-25 11:13] LABS: BILIRUBIN,TOTAL 0.6 mg/dL (0.2-1)
[2020-11-25] MEDS: WARFARIN NA 3 MG TABLET PO SCH (17:32)
[2020-11-25] MEDS: SENNOSIDES/DOCUSATE COMBO (SENNA PLUS) TABLET (UD) PO SCH (21:44)
[2020-11-25] MEDS: ATORVASTATIN CA 40 MG TABLET (FP) PO SCH (21:44)
[2020-11-25] MEDS: POLYETHYLENE GLYCOL 3350 119 GM BTL PO SCH (22:46)
[2020-11-26] MEDS ORDERED: METOPROLOL TARTRATE 5 MG/5 ML VIAL IVPUSH PRN (03:46)
[2020-11-26] MEDS: APALUTAMIDE 60 MG PO SCH (06:00)
[2020-11-26] MEDS: INSULIN SLIDING SCALE (NOVOLOG) 1 VIAL SQ SCH ×4 (06:00→22:19)
[2020-11-26] MEDS: INSULIN (LEVEMIR) 100 UNITS/ML UNITS SQ SCH (06:02)
[2020-11-26] MEDS: ALBUTEROL SO4 2.5/IPRATROPIUM 0.5 INH SOL 3 ML VIAL.NEB. NEB SCH ×4 (08:03→20:00)
[2020-11-26] MEDS: TAMSULOSIN HCL 0.4 MG CAP PO SCH (09:15)
[2020-11-26] MEDS: LACTULOSE 20 GM/30 ML UDC (FOR ORAL USE ONLY) PO SCH (10:08)
[2020-11-26] MEDS: CARBIDOPA/LEVODOPA 25/100 TABLET (FP) PO SCH ×2 (10:08→22:10)
[2020-11-26] MEDS: MULTIVITAMINS (DAILY MVI) TABLET (FP) PO SCH (10:09)
[2020-11-26] MEDS: TORSEMIDE 20 MG TABLET (FP) PO SCH (10:09)
[2020-11-26] MEDS: DULoxetine HCL 30 MG CAPSULE.DR PO SCH (10:09)
[2020-11-26] MEDS: FERROUS SO4 325 MG TABLET (FP) PO SCH (10:09)
[2020-11-26] MEDS: GABAPENTIN 100 MG CAPSULE PO SCH (10:09)
[2020-11-26] MEDS: WARFARIN NA 3 MG TABLET PO SCH (17:43)
[2020-11-26] MEDS: ATORVASTATIN CA 40 MG TABLET (FP) PO SCH (22:10)
[2020-11-26] MEDS: SENNOSIDES/DOCUSATE COMBO (SENNA PLUS) TABLET (UD) PO SCH (22:10)
[2020-11-26] MEDS: POLYETHYLENE GLYCOL 3350 119 GM BTL PO SCH (22:12)
[2020-11-27] MEDS: ALBUTEROL SO4 0.083% IH SOL 2.5 MG/3 ML VIAL.NEB. NEB PRN (02:22)
[2020-11-27] MEDS: INSULIN (LEVEMIR) 100 UNITS/ML UNITS SQ SCH (06:44)
[2020-11-27] MEDS: INSULIN SLIDING SCALE (NOVOLOG) 1 VIAL SQ SCH ×4 (06:44→21:32)
[2020-11-27] MEDS: APALUTAMIDE 60 MG PO SCH (06:48)
[2020-11-27 07:51] LABS: BASO % 0.7 % (0-2.0); EOS % 6.9 % (0-4.5); HEMATOCRIT 28.9 % (35.4-49); HEMOGLOBIN 9.2 GM/dL (11.7-16.9); LYMPH % 17.3 % (8-40); MCH 32.4 pg (25.7-33.7); MCHC 31.9 g/dl (32.0-35.9); MEAN CELL VOLUME 101.5 fl (80-96); MEAN PLT VOLUME 9.2 fl (7.5-11.1); MONO % 9.7 % (3.8-10.2); NEUT % 65.4 % (42.8-82.8); PLATELET COUNT 226 K/MM3 (134-434); RBC 2.85 M/mm3 (4.00-5.60); RDW 16.1 % (11.9-15.9); WHITE BLOOD COUNT 6.2 K/mm3 (4.0-10.0)
[2020-11-27 07:58] LABS: INR 3.13 (0.83-1.09); PROTHROMBIN TIME (PATIENT) 37.2 SEC (9.7-13.0)
[2020-11-27 08:18] LABS: POTASSIUM 4.3 mmol/L (3.5-5.1)
[2020-11-27] MEDS: ALBUTEROL SO4 2.5/IPRATROPIUM 0.5 INH SOL 3 ML VIAL.NEB. NEB SCH ×4 (08:40→21:14)
[2020-11-27 08:59] LABS: CALCIUM 9.4 mg/dL (8.5-10.1)
[2020-11-27 09:00] LABS: ALBUMIN 3.5 g/dl (3.4-5.0); BLOOD UREA NITROGEN 37.2 mg/dL (7-18)
[2020-11-27 09:03] LABS: CREATININE 1.3 mg/dL (0.55-1.3)
[2020-11-27 09:04] LABS: BILIRUBIN,TOTAL 0.4 mg/dL (0.2-1)
[2020-11-27] MEDS: DULoxetine HCL 30 MG CAPSULE.DR PO SCH (09:42)
[2020-11-27] MEDS: LACTULOSE 20 GM/30 ML UDC (FOR ORAL USE ONLY) PO SCH (09:42)
[2020-11-27] MEDS: TAMSULOSIN HCL 0.4 MG CAP PO SCH (09:42)
[2020-11-27] MEDS: TORSEMIDE 20 MG TABLET (FP) PO SCH (09:43)
[2020-11-27] MEDS: GABAPENTIN 100 MG CAPSULE PO SCH (09:43)
[2020-11-27] MEDS: FERROUS SO4 325 MG TABLET (FP) PO SCH (09:43)
[2020-11-27] MEDS: MULTIVITAMINS (DAILY MVI) TABLET (FP) PO SCH (09:43)
[2020-11-27] MEDS: CARBIDOPA/LEVODOPA 25/100 TABLET (FP) PO SCH ×2 (09:43→21:27)
[2020-11-27] MEDS ORDERED: FUROSEMIDE 40 MG/4 ML INJECTABLE VIAL IVPUSH ONE (14:00)
[2020-11-27] MEDS ORDERED: WARFARIN NA 2 MG TABLET PO SCH (18:00)
[2020-11-27] MEDS: WARFARIN NA 3 MG TABLET PO SCH (18:18)
[2020-11-27] MEDS: SENNOSIDES/DOCUSATE COMBO (SENNA PLUS) TABLET (UD) PO SCH (21:27)
[2020-11-27] MEDS: ATORVASTATIN CA 40 MG TABLET (FP) PO SCH (21:27)
[2020-11-27] MEDS: POLYETHYLENE GLYCOL 3350 119 GM BTL PO SCH (21:28)
[2020-11-28] MEDS: ALBUTEROL SO4 0.083% IH SOL 2.5 MG/3 ML VIAL.NEB. NEB PRN (01:36)
[2020-11-28] MEDS ORDERED: PT OWN MED DRAWER 7, Y5N ONE (05:57)
[2020-11-28] MEDS: APALUTAMIDE 60 MG PO SCH (06:23)
[2020-11-28] MEDS: INSULIN SLIDING SCALE (NOVOLOG) 1 VIAL SQ SCH ×4 (06:28→21:22)
[2020-11-28] MEDS: INSULIN (LEVEMIR) 100 UNITS/ML UNITS SQ SCH (06:28)
[2020-11-28] MEDS: ALBUTEROL SO4 2.5/IPRATROPIUM 0.5 INH SOL 3 ML VIAL.NEB. NEB SCH ×4 (07:59→20:31)
[2020-11-28] MEDS: LACTULOSE 20 GM/30 ML UDC (FOR ORAL USE ONLY) PO SCH (09:35)
[2020-11-28] MEDS: TAMSULOSIN HCL 0.4 MG CAP PO SCH (09:37)
[2020-11-28] MEDS: CARBIDOPA/LEVODOPA 25/100 TABLET (FP) PO SCH ×2 (09:37→21:13)
[2020-11-28] MEDS: MULTIVITAMINS (DAILY MVI) TABLET (FP) PO SCH (09:37)
[2020-11-28] MEDS: GABAPENTIN 100 MG CAPSULE PO SCH (09:37)
[2020-11-28] MEDS: DULoxetine HCL 30 MG CAPSULE.DR PO SCH (09:37)
[2020-11-28] MEDS: FERROUS SO4 325 MG TABLET (FP) PO SCH (09:38)
[2020-11-28] MEDS: TORSEMIDE 20 MG TABLET (FP) PO SCH (09:38)
[2020-11-28 12:28] LABS: INR 2.57 (0.83-1.09); PROTHROMBIN TIME (PATIENT) 30.7 SEC (9.7-13.0)
[2020-11-28 13:11] LABS: POTASSIUM 4.6 mmol/L (3.5-5.1)
[2020-11-28 13:19] LABS: CALCIUM 9.7 mg/dL (8.5-10.1)
[2020-11-28 13:20] LABS: BLOOD UREA NITROGEN 36.7 mg/dL (7-18); MAGNESIUM 2.1 mg/dL (1.8-2.4)
[2020-11-28 13:23] LABS: CREATININE 1.3 mg/dL (0.55-1.3)
[2020-11-28] MEDS: WARFARIN NA 3 MG TABLET PO SCH (17:45)
[2020-11-28] MEDS ORDERED: SIMETHICONE 80 MG TAB.CHEW (FP) PO ONE (21:00)
[2020-11-28] MEDS: POLYETHYLENE GLYCOL 3350 119 GM BTL PO SCH (21:13)
[2020-11-28] MEDS: ATORVASTATIN CA 40 MG TABLET (FP) PO SCH (21:13)
[2020-11-28] MEDS: SENNOSIDES/DOCUSATE COMBO (SENNA PLUS) TABLET (UD) PO SCH (21:13)
[2020-11-28] MEDS: NYSTATIN/TRIAMCINOLONE TOPICAL CREAM 15 GM TUBE TP SCH (21:13)
[2020-11-29] MEDS ORDERED: PT OWN MED DRAWER 7, Y5N ONE (06:06)
[2020-11-29] MEDS: APALUTAMIDE 60 MG PO SCH (06:23)
[2020-11-29] MEDS: INSULIN SLIDING SCALE (NOVOLOG) 1 VIAL SQ SCH ×4 (06:23→22:50)
[2020-11-29] MEDS: INSULIN (LEVEMIR) 100 UNITS/ML UNITS SQ SCH (06:23)
[2020-11-29 08:28] LABS: EOS % 9.1 % (0-4.5); HEMATOCRIT 27.8 % (35.4-49); HEMOGLOBIN 8.9 GM/dL (11.7-16.9); LYMPH % 14.8 % (8-40); MCH 32.7 pg (25.7-33.7); MCHC 31.9 g/dl (32.0-35.9); MEAN CELL VOLUME 102.4 fl (80-96); MEAN PLT VOLUME 9.2 fl (7.5-11.1); MONO % 8.7 % (3.8-10.2); NEUT % 66.4 % (42.8-82.8); PLATELET COUNT 230 K/MM3 (134-434); RBC 2.72 M/mm3 (4.00-5.60); RDW 16.2 % (11.9-15.9); WHITE BLOOD COUNT 5.5 K/mm3 (4.0-10.0)
[2020-11-29 08:30] LABS: CALCIUM 8.9 mg/dL (8.5-10.1)
[2020-11-29 08:31] LABS: BLOOD UREA NITROGEN 33.2 mg/dL (7-18)
[2020-11-29 08:34] LABS: CREATININE 1.2 mg/dL (0.55-1.3); PHOSPHOROUS 4.4 mg/dL (2.5-4.9)
[2020-11-29] MEDS: ALBUTEROL SO4 2.5/IPRATROPIUM 0.5 INH SOL 3 ML VIAL.NEB. NEB SCH (08:41)
[2020-11-29] MEDS: DULoxetine HCL 30 MG CAPSULE.DR PO SCH (09:05)
[2020-11-29] MEDS: TORSEMIDE 20 MG TABLET (FP) PO SCH (09:05)
[2020-11-29] MEDS: MULTIVITAMINS (DAILY MVI) TABLET (FP) PO SCH (09:06)
[2020-11-29] MEDS: LACTULOSE 20 GM/30 ML UDC (FOR ORAL USE ONLY) PO SCH (09:06)
[2020-11-29] MEDS: TAMSULOSIN HCL 0.4 MG CAP PO SCH (09:06)
[2020-11-29] MEDS: GABAPENTIN 100 MG CAPSULE PO SCH (09:06)
[2020-11-29] MEDS: NYSTATIN/TRIAMCINOLONE TOPICAL CREAM 15 GM TUBE TP SCH ×2 (09:06→22:50)
[2020-11-29] MEDS: FERROUS SO4 325 MG TABLET (FP) PO SCH (09:06)
[2020-11-29] MEDS: CARBIDOPA/LEVODOPA 25/100 TABLET (FP) PO SCH ×2 (09:06→22:50)
[2020-11-29 11:48] LABS: INR 2.65 (0.83-1.09); PROTHROMBIN TIME (PATIENT) 31.2 SEC (9.7-13.0)
[2020-11-29] MEDS: WARFARIN NA 3 MG TABLET PO SCH (17:11)
[2020-11-29] MEDS ORDERED: ALBUTEROL SO4 2.5/IPRATROPIUM 0.5 INH SOL 3 ML VIAL.NEB. NEB ONE (20:28)
[2020-11-29] MEDS: SENNOSIDES/DOCUSATE COMBO (SENNA PLUS) TABLET (UD) PO SCH (22:50)
[2020-11-29] MEDS: POLYETHYLENE GLYCOL 3350 119 GM BTL PO SCH (22:50)
[2020-11-29] MEDS: ATORVASTATIN CA 40 MG TABLET (FP) PO SCH (22:50)
[2020-11-30] MEDS ORDERED: PT OWN MED DRAWER 7, Y5N ONE ×3 (05:44→21:21)
[2020-11-30] MEDS: INSULIN SLIDING SCALE (NOVOLOG) 1 VIAL SQ SCH ×4 (06:33→21:30)
[2020-11-30] MEDS: APALUTAMIDE 60 MG PO SCH (06:33)
[2020-11-30] MEDS: INSULIN (LEVEMIR) 100 UNITS/ML UNITS SQ SCH (06:33)
[2020-11-30 07:43] LABS: BASO % 0.8 % (0-2.0); EOS % 7.6 % (0-4.5); HEMATOCRIT 27.5 % (35.4-49); HEMOGLOBIN 8.7 GM/dL (11.7-16.9); LYMPH % 16.5 % (8-40); MCH 32.3 pg (25.7-33.7); MCHC 31.7 g/dl (32.0-35.9); MEAN PLT VOLUME 9.3 fl (7.5-11.1); MONO % 8.7 % (3.8-10.2); NEUT % 66.4 % (42.8-82.8); PLATELET COUNT 226 K/MM3 (134-434); RBC 2.69 M/mm3 (4.00-5.60); RDW 15.8 % (11.9-15.9); WHITE BLOOD COUNT 5.3 K/mm3 (4.0-10.0)
[2020-11-30 07:50] LABS: INR 2.4 (0.83-1.09); PROTHROMBIN TIME (PATIENT) 28.3 SEC (9.7-13.0)
[2020-11-30 08:02] LABS: POTASSIUM 4.1 mmol/L (3.5-5.1)
[2020-11-30 08:04] LABS: ALBUMIN 3.4 g/dl (3.4-5.0); BLOOD UREA NITROGEN 34.7 mg/dL (7-18); CALCIUM 9.3 mg/dL (8.5-10.1); MAGNESIUM 2.1 mg/dL (1.8-2.4)
[2020-11-30 08:07] LABS: CREATININE 1.3 mg/dL (0.55-1.3)
[2020-11-30 08:08] LABS: PHOSPHOROUS 4.3 mg/dL (2.5-4.9)
[2020-11-30 08:09] LABS: BILIRUBIN,TOTAL 0.5 mg/dL (0.2-1); TOT PROT 5.8 g/dl (6.4-8.2)
[2020-11-30] MEDS: MULTIVITAMINS (DAILY MVI) TABLET (FP) PO SCH (09:09)
[2020-11-30] MEDS: TAMSULOSIN HCL 0.4 MG CAP PO SCH (09:09)
[2020-11-30] MEDS: DULoxetine HCL 30 MG CAPSULE.DR PO SCH (09:09)
[2020-11-30] MEDS: TORSEMIDE 20 MG TABLET (FP) PO SCH ×2 (09:09→17:10)
[2020-11-30] MEDS: FERROUS SO4 325 MG TABLET (FP) PO SCH (09:10)
[2020-11-30] MEDS: CARBIDOPA/LEVODOPA 25/100 TABLET (FP) PO SCH ×2 (09:10→21:29)
[2020-11-30] MEDS: NYSTATIN/TRIAMCINOLONE TOPICAL CREAM 15 GM TUBE TP SCH ×2 (09:10→21:30)
[2020-11-30] MEDS: GABAPENTIN 100 MG CAPSULE PO SCH (09:10)
[2020-11-30] MEDS: LACTULOSE 20 GM/30 ML UDC (FOR ORAL USE ONLY) PO SCH (09:10)
[2020-11-30] MEDS ORDERED: SODIUM PHOSPHATE/NA BIPHOS 133 ML ENEMA PR ONE (15:06)
[2020-11-30] MEDS ORDERED: MAGNESIUM CITRATE 300 ML BOTTLE PO ONE (15:06)
[2020-11-30] MEDS: ALBUTEROL SO4 2.5/IPRATROPIUM 0.5 INH SOL 3 ML VIAL.NEB. NEB SCH ×2 (16:00→20:28)
[2020-11-30] MEDS: LIPASE/PROTEASE/AMYLASE 36,000 UNIT CAPSULE PO SCH (17:14)
[2020-11-30] MEDS: WARFARIN NA 5 MG TABLET PO SCH (18:12)
[2020-11-30] MEDS ORDERED: INSULIN SLIDING SCALE (NOVOLOG) 1 VIAL SQ ONE (19:00)
[2020-11-30] MEDS: PANTOPRAZOLE 40 MG TABLET PO SCH (21:29)
[2020-11-30] MEDS: SENNOSIDES/DOCUSATE COMBO (SENNA PLUS) TABLET (UD) PO SCH (21:30)
[2020-11-30] MEDS: ATORVASTATIN CA 40 MG TABLET (FP) PO SCH (21:30)
[2020-11-30] MEDS: POLYETHYLENE GLYCOL 3350 119 GM BTL PO SCH (22:08)
[2020-11-30] MEDS: RIFAXIMIN 550 MG TABLET (UD) PO SCH (23:11)
[2020-12-01] MEDS: APALUTAMIDE 60 MG PO SCH (06:58)
[2020-12-01] MEDS: TORSEMIDE 20 MG TABLET (FP) PO SCH ×2 (06:58→13:52)
[2020-12-01] MEDS: INSULIN (LEVEMIR) 100 UNITS/ML UNITS SQ SCH (06:58)
[2020-12-01] MEDS: INSULIN SLIDING SCALE (NOVOLOG) 1 VIAL SQ SCH ×4 (06:58→21:38)
[2020-12-01 07:49] LABS: INR 2.01 (0.83-1.09); POTASSIUM 4.2 mmol/L (3.5-5.1); PROTHROMBIN TIME (PATIENT) 24.2 SEC (9.7-13.0)
[2020-12-01 08:15] LABS: CALCIUM 9.7 mg/dL (8.5-10.1)
[2020-12-01 08:16] LABS: BLOOD UREA NITROGEN 34.6 mg/dL (7-18); MAGNESIUM 2.3 mg/dL (1.8-2.4)
[2020-12-01 08:19] LABS: CREATININE 1.2 mg/dL (0.55-1.3)
[2020-12-01 08:20] LABS: PHOSPHOROUS 4.2 mg/dL (2.5-4.9)
[2020-12-01] MEDS ORDERED: PT OWN MED DRAWER 7, Y5N ONE ×2 (08:20→18:16)
[2020-12-01] MEDS: TAMSULOSIN HCL 0.4 MG CAP PO SCH (08:22)
[2020-12-01] MEDS: LIPASE/PROTEASE/AMYLASE 36,000 UNIT CAPSULE PO SCH ×3 (08:23→16:57)
[2020-12-01] MEDS: ALBUTEROL SO4 2.5/IPRATROPIUM 0.5 INH SOL 3 ML VIAL.NEB. NEB SCH ×4 (08:37→22:50)
[2020-12-01] MEDS: RIFAXIMIN 550 MG TABLET (UD) PO SCH ×2 (10:01→21:29)
[2020-12-01] MEDS: DULoxetine HCL 30 MG CAPSULE.DR PO SCH (10:01)
[2020-12-01] MEDS: MULTIVITAMINS (DAILY MVI) TABLET (FP) PO SCH (10:01)
[2020-12-01] MEDS: FERROUS SO4 325 MG TABLET (FP) PO SCH (10:01)
[2020-12-01] MEDS: LACTULOSE 20 GM/30 ML UDC (FOR ORAL USE ONLY) PO SCH (10:01)
[2020-12-01] MEDS: CARBIDOPA/LEVODOPA 25/100 TABLET (FP) PO SCH ×2 (10:01→21:45)
[2020-12-01] MEDS: PANTOPRAZOLE 40 MG TABLET PO SCH ×2 (10:01→21:29)
[2020-12-01] MEDS: GABAPENTIN 100 MG CAPSULE PO SCH (10:02)
[2020-12-01] MEDS: NYSTATIN/TRIAMCINOLONE TOPICAL CREAM 15 GM TUBE TP SCH ×2 (10:02→21:30)
[2020-12-01] MEDS: WARFARIN NA 5 MG TABLET PO SCH (17:39)
[2020-12-01] MEDS ORDERED: METOPROLOL TARTRATE 5 MG/5 ML VIAL IVPUSH PRN (20:30)
[2020-12-01] MEDS: ATORVASTATIN CA 40 MG TABLET (FP) PO SCH (21:29)
[2020-12-01] MEDS: SENNOSIDES/DOCUSATE COMBO (SENNA PLUS) TABLET (UD) PO SCH (21:30)
[2020-12-01] MEDS: POLYETHYLENE GLYCOL 3350 119 GM BTL PO SCH (21:30)
[2020-12-01] MEDS: metoPROLOL SUCCINATE 25 MG TAB.SR.24H (FP) PO SCH (21:45)
[2020-12-02] MEDS: INSULIN SLIDING SCALE (NOVOLOG) 1 VIAL SQ SCH ×4 (06:04→22:28)
[2020-12-02] MEDS: INSULIN (LEVEMIR) 100 UNITS/ML UNITS SQ SCH (06:05)
[2020-12-02] MEDS: TORSEMIDE 20 MG TABLET (FP) PO SCH ×3 (06:27→16:06)
[2020-12-02] MEDS: ALBUTEROL SO4 2.5/IPRATROPIUM 0.5 INH SOL 3 ML VIAL.NEB. NEB SCH ×4 (07:30→20:48)
[2020-12-02] MEDS: LIPASE/PROTEASE/AMYLASE 36,000 UNIT CAPSULE PO SCH ×3 (09:40→16:50)
[2020-12-02] MEDS: LACTULOSE 20 GM/30 ML UDC (FOR ORAL USE ONLY) PO SCH (09:42)
[2020-12-02] MEDS: TAMSULOSIN HCL 0.4 MG CAP PO SCH (09:43)
[2020-12-02] MEDS: MULTIVITAMINS (DAILY MVI) TABLET (FP) PO SCH (09:44)
[2020-12-02] MEDS: GABAPENTIN 100 MG CAPSULE PO SCH (09:44)
[2020-12-02] MEDS: CARBIDOPA/LEVODOPA 25/100 TABLET (FP) PO SCH ×2 (09:44→21:45)
[2020-12-02] MEDS: RIFAXIMIN 550 MG TABLET (UD) PO SCH ×2 (09:44→21:46)
[2020-12-02] MEDS: PANTOPRAZOLE 40 MG TABLET PO SCH ×2 (09:44→21:44)
[2020-12-02] MEDS: DULoxetine HCL 30 MG CAPSULE.DR PO SCH (09:45)
[2020-12-02] MEDS: FERROUS SO4 325 MG TABLET (FP) PO SCH (09:45)
[2020-12-02] MEDS: metoPROLOL SUCCINATE 25 MG TAB.SR.24H (FP) PO SCH ×2 (09:46→22:29)
[2020-12-02] MEDS: NYSTATIN/TRIAMCINOLONE TOPICAL CREAM 15 GM TUBE TP SCH ×2 (09:55→22:28)
[2020-12-02 14:01] LABS: INR 2.69 (0.83-1.09); PROTHROMBIN TIME (PATIENT) 32.1 SEC (9.7-13.0)
[2020-12-02] MEDS: APALUTAMIDE 240 MG PO SCH (17:34)
[2020-12-02] MEDS ORDERED: WARFARIN NA 3 MG TABLET PO SCH (18:00)
[2020-12-02] MEDS: ATORVASTATIN CA 40 MG TABLET (FP) PO SCH (21:44)
[2020-12-02] MEDS: SENNOSIDES/DOCUSATE COMBO (SENNA PLUS) TABLET (UD) PO SCH (21:44)
[2020-12-02] MEDS: POLYETHYLENE GLYCOL 3350 119 GM BTL PO SCH (22:26)
[2020-12-03] MEDS: TORSEMIDE 20 MG TABLET (FP) PO SCH ×2 (06:13→13:27)
[2020-12-03] MEDS: INSULIN (LEVEMIR) 100 UNITS/ML UNITS SQ SCH (06:15)
[2020-12-03] MEDS: INSULIN SLIDING SCALE (NOVOLOG) 1 VIAL SQ SCH ×4 (06:17→21:12)
[2020-12-03] MEDS: APALUTAMIDE 240 MG PO SCH (06:18)
[2020-12-03] MEDS: ALBUTEROL SO4 2.5/IPRATROPIUM 0.5 INH SOL 3 ML VIAL.NEB. NEB SCH ×4 (07:00→20:02)
[2020-12-03] MEDS: LIPASE/PROTEASE/AMYLASE 36,000 UNIT CAPSULE PO SCH ×3 (09:26→17:17)
[2020-12-03] MEDS: FERROUS SO4 325 MG TABLET (FP) PO SCH (09:26)
[2020-12-03] MEDS: CARBIDOPA/LEVODOPA 25/100 TABLET (FP) PO SCH ×2 (09:27→21:07)
[2020-12-03] MEDS: PANTOPRAZOLE 40 MG TABLET PO SCH ×2 (09:27→21:06)
[2020-12-03] MEDS: TAMSULOSIN HCL 0.4 MG CAP PO SCH (09:27)
[2020-12-03] MEDS: DULoxetine HCL 30 MG CAPSULE.DR PO SCH (09:27)
[2020-12-03] MEDS: RIFAXIMIN 550 MG TABLET (UD) PO SCH ×2 (09:27→21:06)
[2020-12-03] MEDS: GABAPENTIN 100 MG CAPSULE PO SCH (09:27)
[2020-12-03] MEDS: LACTULOSE 20 GM/30 ML UDC (FOR ORAL USE ONLY) PO SCH (09:28)
[2020-12-03] MEDS: MULTIVITAMINS (DAILY MVI) TABLET (FP) PO SCH (09:30)
[2020-12-03] MEDS: metoPROLOL SUCCINATE 25 MG TAB.SR.24H (FP) PO SCH ×2 (09:30→21:06)
[2020-12-03] MEDS: NYSTATIN/TRIAMCINOLONE TOPICAL CREAM 15 GM TUBE TP SCH ×2 (09:31→21:07)
[2020-12-03 09:34] LABS: INR 2.36 (0.83-1.09); PROTHROMBIN TIME (PATIENT) 27.8 SEC (9.7-13.0)
[2020-12-03 12:49] LABS: POTASSIUM 4.1 mmol/L (3.5-5.1)
[2020-12-03 12:51] LABS: BLOOD UREA NITROGEN 35.6 mg/dL (7-18); CALCIUM 9.6 mg/dL (8.5-10.1)
[2020-12-03 12:55] LABS: CREATININE 1.2 mg/dL (0.55-1.3)
[2020-12-03] MEDS ORDERED: PT OWN MED DRAWER 7, Y5N ONE ×3 (17:14→22:54)
[2020-12-03] MEDS ORDERED: HEPARIN NA (PORCINE) 5,000 UNITS/ML 1ML VIAL IVPUSH ONE (20:37)
[2020-12-03] MEDS: SENNOSIDES/DOCUSATE COMBO (SENNA PLUS) TABLET (UD) PO SCH (21:06)
[2020-12-03] MEDS: ATORVASTATIN CA 40 MG TABLET (FP) PO SCH (21:06)
[2020-12-03] MEDS: POLYETHYLENE GLYCOL 3350 119 GM BTL PO SCH (21:07)
[2020-12-03] MEDS ORDERED: HEPARIN NA (PORCINE) 5,000 UNITS/ML 1ML VIAL IVPUSH PRN ×2 (21:21)
[2020-12-03] MEDS: HEPARIN SOD,PORK IN 0.45% NACL 25,000 UNITS/500 ML INFUS.BAG IVPB SCH (23:33)
[2020-12-04] MEDS: BACITRACIN 15 GM TUBE TOPICAL OINTMENT TP SCH ×3 (01:30→22:14)
[2020-12-04] MEDS ORDERED: ALBUTEROL SO4 0.083% IH SOL 2.5 MG/3 ML VIAL.NEB. NEB ONE (01:44)
[2020-12-04] MEDS ORDERED: ALBUTEROL SO4 0.083% IH SOL 2.5 MG/3 ML VIAL.NEB. NEB PRN (02:00)
[2020-12-04] MEDS: MINERAL OIL/PET HY-PHL TOPICAL OINTMENT 454 GM JAR TP SCH ×3 (03:44→22:14)
[2020-12-04] MEDS ORDERED: PT OWN MED DRAWER 7, Y5N ONE ×5 (06:10→16:59)
[2020-12-04] MEDS: TORSEMIDE 20 MG TABLET (FP) PO SCH ×2 (06:10→13:51)
[2020-12-04] MEDS: APALUTAMIDE 240 MG PO SCH (06:11)
[2020-12-04] MEDS: INSULIN (LEVEMIR) 100 UNITS/ML UNITS SQ SCH (06:14)
[2020-12-04] MEDS: INSULIN SLIDING SCALE (NOVOLOG) 1 VIAL SQ SCH ×4 (06:14→22:08)
[2020-12-04] MEDS: TAMSULOSIN HCL 0.4 MG CAP PO SCH (08:08)
[2020-12-04] MEDS: LIPASE/PROTEASE/AMYLASE 36,000 UNIT CAPSULE PO SCH ×3 (08:09→17:03)
[2020-12-04] MEDS: ALBUTEROL SO4 2.5/IPRATROPIUM 0.5 INH SOL 3 ML VIAL.NEB. NEB SCH ×4 (08:15→19:26)
[2020-12-04 08:38] LABS: BASO % 1.1 % (0-2.0); EOS % 8.3 % (0-4.5); HEMATOCRIT 27.7 % (35.4-49); HEMOGLOBIN 8.8 GM/dL (11.7-16.9); LYMPH % 16.1 % (8-40); MCH 32.5 pg (25.7-33.7); MCHC 31.8 g/dl (32.0-35.9); MEAN CELL VOLUME 102.1 fl (80-96); MEAN PLT VOLUME 9.4 fl (7.5-11.1); MONO % 9.4 % (3.8-10.2); NEUT % 65.1 % (42.8-82.8); PLATELET COUNT 214 K/MM3 (134-434); RBC 2.71 M/mm3 (4.00-5.60); RDW 15.8 % (11.9-15.9); WHITE BLOOD COUNT 5.6 K/mm3 (4.0-10.0)
[2020-12-04] MEDS: DULoxetine HCL 30 MG CAPSULE.DR PO SCH (09:26)
[2020-12-04] MEDS: RIFAXIMIN 550 MG TABLET (UD) PO SCH ×2 (09:26→22:07)
[2020-12-04] MEDS: GABAPENTIN 100 MG CAPSULE PO SCH (09:26)
[2020-12-04] MEDS: FERROUS SO4 325 MG TABLET (FP) PO SCH (09:26)
[2020-12-04] MEDS: PANTOPRAZOLE 40 MG TABLET PO SCH ×2 (09:27→22:07)
[2020-12-04] MEDS: CARBIDOPA/LEVODOPA 25/100 TABLET (FP) PO SCH ×2 (09:27→22:07)
[2020-12-04] MEDS: metoPROLOL SUCCINATE 25 MG TAB.SR.24H (FP) PO SCH ×2 (09:27→22:08)
[2020-12-04] MEDS: MULTIVITAMINS (DAILY MVI) TABLET (FP) PO SCH (09:27)
[2020-12-04 09:29] LABS: MAGNESIUM 2.1 mg/dL (1.8-2.4)
[2020-12-04] MEDS: LACTULOSE 20 GM/30 ML UDC (FOR ORAL USE ONLY) PO SCH (09:29)
[2020-12-04 09:41] LABS: INR 1.79 (0.83-1.09); PROTHROMBIN TIME (PATIENT) 21.7 SEC (9.7-13.0)
[2020-12-04 09:44] LABS: ACTIVATED PTT 60.9 SECONDS (25.2-36.5)
[2020-12-04] MEDS: HEPARIN SOD,PORK IN 0.45% NACL 25,000 UNITS/500 ML INFUS.BAG IVPB SCH ×3 (09:49→18:29)
[2020-12-04 11:57] LABS: POTASSIUM 3.7 mmol/L (3.5-5.1)
[2020-12-04 12:00] LABS: CALCIUM 9.4 mg/dL (8.5-10.1)
[2020-12-04 12:01] LABS: ALBUMIN 3.6 g/dl (3.4-5.0); BLOOD UREA NITROGEN 32.4 mg/dL (7-18)
[2020-12-04 12:03] LABS: CREATININE 1.2 mg/dL (0.55-1.3)
[2020-12-04 12:04] LABS: PHOSPHOROUS 3.8 mg/dL (2.5-4.9)
[2020-12-04 12:05] LABS: BILIRUBIN,TOTAL 0.5 mg/dL (0.2-1); TOT PROT 6.3 g/dl (6.4-8.2)
[2020-12-04] MEDS: NYSTATIN/TRIAMCINOLONE TOPICAL CREAM 15 GM TUBE TP SCH ×2 (12:31→22:08)
[2020-12-04 17:49] LABS: BF WBC & OTHER NUCLEATED CELLS 379 /mm3
[2020-12-04 18:53] LABS: BODY FLUID MACROPHAGES 46 %; BODY FLUID MESOTHELIAL 24 %
[2020-12-04] MEDS: ATORVASTATIN CA 40 MG TABLET (FP) PO SCH (22:07)
[2020-12-04] MEDS: POLYETHYLENE GLYCOL 3350 119 GM BTL PO SCH (22:07)
[2020-12-05] MEDS: POLYETHYLENE GLYCOL 3350 119 GM BTL PO SCH ×3 (05:46→21:33)
[2020-12-05] MEDS: TORSEMIDE 20 MG TABLET (FP) PO SCH ×2 (05:46→13:46)
[2020-12-05] MEDS: INSULIN (LEVEMIR) 100 UNITS/ML UNITS SQ SCH (06:30)
[2020-12-05] MEDS: APALUTAMIDE 240 MG PO SCH (06:30)
[2020-12-05] MEDS: INSULIN SLIDING SCALE (NOVOLOG) 1 VIAL SQ SCH ×4 (06:31→21:27)
[2020-12-05] MEDS ORDERED: PT OWN MED DRAWER 7, Y5N ONE ×3 (07:34→17:10)
[2020-12-05] MEDS: LIPASE/PROTEASE/AMYLASE 36,000 UNIT CAPSULE PO SCH ×3 (08:11→17:11)
[2020-12-05] MEDS: TAMSULOSIN HCL 0.4 MG CAP PO SCH (08:12)
[2020-12-05] MEDS: ALBUTEROL SO4 2.5/IPRATROPIUM 0.5 INH SOL 3 ML VIAL.NEB. NEB SCH ×4 (08:33→20:52)
[2020-12-05 08:46] LABS: HEMATOCRIT 23.5 % (35.4-49); HEMOGLOBIN 7.2 GM/dL (11.7-16.9); MCH 32.5 pg (25.7-33.7); MCHC 30.6 g/dl (32.0-35.9); MEAN PLT VOLUME 9.8 fl (7.5-11.1); PLATELET COUNT 145 K/MM3 (134-434); RBC 2.21 M/mm3 (4.00-5.60)
[2020-12-05] MEDS: MULTIVITAMINS (DAILY MVI) TABLET (FP) PO SCH (09:21)
[2020-12-05] MEDS: PANTOPRAZOLE 40 MG TABLET PO SCH ×2 (09:21→21:27)
[2020-12-05] MEDS: GABAPENTIN 100 MG CAPSULE PO SCH (09:21)
[2020-12-05] MEDS: RIFAXIMIN 550 MG TABLET (UD) PO SCH ×2 (09:21→21:25)
[2020-12-05] MEDS: CARBIDOPA/LEVODOPA 25/100 TABLET (FP) PO SCH ×2 (09:21→21:25)
[2020-12-05] MEDS: FERROUS SO4 325 MG TABLET (FP) PO SCH (09:21)
[2020-12-05] MEDS: DULoxetine HCL 30 MG CAPSULE.DR PO SCH (09:21)
[2020-12-05] MEDS: MINERAL OIL/PET HY-PHL TOPICAL OINTMENT 454 GM JAR TP SCH ×2 (09:53→21:28)
[2020-12-05] MEDS: NYSTATIN/TRIAMCINOLONE TOPICAL CREAM 15 GM TUBE TP SCH ×2 (09:53→21:27)
[2020-12-05] MEDS: BACITRACIN 15 GM TUBE TOPICAL OINTMENT TP SCH ×2 (09:53→21:28)
[2020-12-05] MEDS: metoPROLOL SUCCINATE 25 MG TAB.SR.24H (FP) PO SCH ×2 (11:04→21:26)
[2020-12-05 12:29] LABS: INR 1.48 (0.83-1.09); PROTHROMBIN TIME (PATIENT) 17.7 SEC (9.7-13.0)
[2020-12-05 12:32] LABS: ACTIVATED PTT 85.1 SECONDS (25.2-36.5)
[2020-12-05] MEDS: HEPARIN SOD,PORK IN 0.45% NACL 25,000 UNITS/500 ML INFUS.BAG IVPB SCH ×4 (12:43→22:40)
[2020-12-05] MEDS ORDERED: MAGNESIUM CITRATE 300 ML BOTTLE PO ONE ×2 (16:57→22:00)
[2020-12-05] MEDS ORDERED: WARFARIN NA 5 MG TABLET PO SCH (18:00)
[2020-12-05 20:01] LABS: HEMATOCRIT 29.1 % (35.4-49); HEMOGLOBIN 9.3 GM/dL (11.7-16.9); MCH 32.5 pg (25.7-33.7); MCHC 31.8 g/dl (32.0-35.9); MEAN CELL VOLUME 102.2 fl (80-96); MEAN PLT VOLUME 9.4 fl (7.5-11.1); PLATELET COUNT 218 K/MM3 (134-434); RBC 2.85 M/mm3 (4.00-5.60); RDW 15.6 % (11.9-15.9); WHITE BLOOD COUNT 6.3 K/mm3 (4.0-10.0)
[2020-12-05] MEDS: ATORVASTATIN CA 40 MG TABLET (FP) PO SCH (21:25)
[2020-12-06] MEDS: POLYETHYLENE GLYCOL 3350 119 GM BTL PO SCH ×3 (06:41→21:08)
[2020-12-06] MEDS: INSULIN (LEVEMIR) 100 UNITS/ML UNITS SQ SCH (06:41)
[2020-12-06] MEDS: TORSEMIDE 20 MG TABLET (FP) PO SCH ×2 (06:41→13:30)
[2020-12-06] MEDS: INSULIN SLIDING SCALE (NOVOLOG) 1 VIAL SQ SCH ×4 (06:50→21:20)
[2020-12-06] MEDS: APALUTAMIDE 240 MG PO SCH (06:50)
[2020-12-06] MEDS: ALBUTEROL SO4 2.5/IPRATROPIUM 0.5 INH SOL 3 ML VIAL.NEB. NEB SCH ×4 (07:45→20:08)
[2020-12-06] MEDS ORDERED: PT OWN MED DRAWER 7, Y5N ONE ×3 (07:59→17:31)
[2020-12-06] MEDS: TAMSULOSIN HCL 0.4 MG CAP PO SCH (08:18)
[2020-12-06] MEDS: LIPASE/PROTEASE/AMYLASE 36,000 UNIT CAPSULE PO SCH ×3 (08:18→17:32)
[2020-12-06] MEDS: DULoxetine HCL 30 MG CAPSULE.DR PO SCH (09:16)
[2020-12-06] MEDS: FERROUS SO4 325 MG TABLET (FP) PO SCH (09:17)
[2020-12-06] MEDS: GABAPENTIN 100 MG CAPSULE PO SCH (09:17)
[2020-12-06] MEDS: PANTOPRAZOLE 40 MG TABLET PO SCH ×2 (09:17→21:08)
[2020-12-06] MEDS: MULTIVITAMINS (DAILY MVI) TABLET (FP) PO SCH (09:17)
[2020-12-06] MEDS: RIFAXIMIN 550 MG TABLET (UD) PO SCH ×2 (09:17→21:08)
[2020-12-06] MEDS: CARBIDOPA/LEVODOPA 25/100 TABLET (FP) PO SCH ×2 (09:17→21:09)
[2020-12-06] MEDS: metoPROLOL SUCCINATE 25 MG TAB.SR.24H (FP) PO SCH ×2 (09:17→21:09)
[2020-12-06 09:45] LABS: POTASSIUM 3.9 mmol/L (3.5-5.1)
[2020-12-06 10:03] LABS: BASO % 0.8 % (0-2.0); EOS % 7.4 % (0-4.5); HEMOGLOBIN 9.1 GM/dL (11.7-16.9); LYMPH % 19.3 % (8-40); MCHC 32.5 g/dl (32.0-35.9); MEAN CELL VOLUME 101.5 fl (80-96); MEAN PLT VOLUME 9.4 fl (7.5-11.1); MONO % 8.3 % (3.8-10.2); NEUT % 64.2 % (42.8-82.8); PLATELET COUNT 194 K/MM3 (134-434); RBC 2.76 M/mm3 (4.00-5.60); WHITE BLOOD COUNT 5.3 K/mm3 (4.0-10.0)
[2020-12-06 10:09] LABS: BLOOD UREA NITROGEN 27.7 mg/dL (7-18); CALCIUM 9.1 mg/dL (8.5-10.1)
[2020-12-06 10:12] LABS: CREATININE 1.2 mg/dL (0.55-1.3)
[2020-12-06] MEDS: NYSTATIN/TRIAMCINOLONE TOPICAL CREAM 15 GM TUBE TP SCH ×2 (11:28→21:07)
[2020-12-06] MEDS: BACITRACIN 15 GM TUBE TOPICAL OINTMENT TP SCH ×2 (11:28→21:19)
[2020-12-06] MEDS: MINERAL OIL/PET HY-PHL TOPICAL OINTMENT 454 GM JAR TP SCH ×2 (11:28→21:07)
[2020-12-06 13:24] LABS: ALBUMIN 3.3 g/dl (3.4-5.0); BILIRUBIN,TOTAL 0.5 mg/dL (0.2-1); TOT PROT 5.7 g/dl (6.4-8.2)
[2020-12-06] MEDS ORDERED: BISACODYL 5 MG TABLET.DR (FP) PO ONE (14:00)
[2020-12-06 15:07] LABS: BODY FLUID ALBUMIN 2.4 g/dL (Not Estab.)
[2020-12-06] MEDS ORDERED: POLYETHYLENE GLYCOL 3350 255 GM BTL PO ONE (16:00)
[2020-12-06] MEDS: ATORVASTATIN CA 40 MG TABLET (FP) PO SCH (21:08)
[2020-12-06] MEDS: HEPARIN SOD,PORK IN 0.45% NACL 25,000 UNITS/500 ML INFUS.BAG IVPB SCH (22:42)
[2020-12-07] MEDS ORDERED: SODIUM PHOSPHATE/NA BIPHOS 133 ML ENEMA PR ONE (05:00)
[2020-12-07] MEDS: TORSEMIDE 20 MG TABLET (FP) PO SCH ×2 (06:27→13:17)
[2020-12-07] MEDS: POLYETHYLENE GLYCOL 3350 119 GM BTL PO SCH ×3 (06:27→22:01)
[2020-12-07] MEDS: APALUTAMIDE 240 MG PO SCH (06:36)
[2020-12-07] MEDS: INSULIN SLIDING SCALE (NOVOLOG) 1 VIAL SQ SCH ×4 (06:37→22:08)
[2020-12-07] MEDS: INSULIN (LEVEMIR) 100 UNITS/ML UNITS SQ SCH (06:37)
[2020-12-07] MEDS: ALBUTEROL SO4 2.5/IPRATROPIUM 0.5 INH SOL 3 ML VIAL.NEB. NEB SCH ×4 (08:00→20:38)
[2020-12-07] MEDS: LIPASE/PROTEASE/AMYLASE 36,000 UNIT CAPSULE PO SCH ×3 (08:15→17:50)
[2020-12-07] MEDS ORDERED: PT OWN MED DRAWER 7, Y5N ONE ×4 (10:35→21:11)
[2020-12-07] MEDS: TAMSULOSIN HCL 0.4 MG CAP PO SCH (10:44)
[2020-12-07] MEDS: DULoxetine HCL 30 MG CAPSULE.DR PO SCH (10:45)
[2020-12-07] MEDS: RIFAXIMIN 550 MG TABLET (UD) PO SCH ×2 (10:45→21:58)
[2020-12-07] MEDS: CARBIDOPA/LEVODOPA 25/100 TABLET (FP) PO SCH ×2 (10:45→21:58)
[2020-12-07] MEDS: GABAPENTIN 100 MG CAPSULE PO SCH (10:46)
[2020-12-07] MEDS: BACITRACIN 15 GM TUBE TOPICAL OINTMENT TP SCH ×2 (10:46→22:00)
[2020-12-07] MEDS: SPIRONOLACTONE 25 MG TABLET PO SCH (10:46)
[2020-12-07] MEDS: MULTIVITAMINS (DAILY MVI) TABLET (FP) PO SCH (10:46)
[2020-12-07] MEDS: NYSTATIN/TRIAMCINOLONE TOPICAL CREAM 15 GM TUBE TP SCH ×2 (10:46→21:59)
[2020-12-07] MEDS: PANTOPRAZOLE 40 MG TABLET PO SCH ×2 (10:46→21:58)
[2020-12-07] MEDS: MINERAL OIL/PET HY-PHL TOPICAL OINTMENT 454 GM JAR TP SCH ×2 (10:47→22:00)
[2020-12-07] MEDS: metoPROLOL SUCCINATE 25 MG TAB.SR.24H (FP) PO SCH ×2 (10:48→21:59)
[2020-12-07] MEDS ORDERED: HEPARIN NA (PORCINE) 5,000 UNITS/ML 1ML VIAL IVPUSH PRN ×2 (10:56)
[2020-12-07] MEDS ORDERED: ALBUTEROL SO4 0.083% IH SOL 2.5 MG/3 ML VIAL.NEB. NEB PRN (10:56)
[2020-12-07 11:31] LABS: BASO % 0.7 % (0-2.0); EOS % 6.3 % (0-4.5); HEMATOCRIT 27.3 % (35.4-49); HEMOGLOBIN 8.9 GM/dL (11.7-16.9); LYMPH % 19.3 % (8-40); MCH 32.9 pg (25.7-33.7); MCHC 32.5 g/dl (32.0-35.9); MEAN CELL VOLUME 101.3 fl (80-96); MEAN PLT VOLUME 9.2 fl (7.5-11.1); MONO % 10.3 % (3.8-10.2); NEUT % 63.4 % (42.8-82.8); PLATELET COUNT 195 K/MM3 (134-434); RBC 2.69 M/mm3 (4.00-5.60); RDW 15.9 % (11.9-15.9); WHITE BLOOD COUNT 4.4 K/mm3 (4.0-10.0)
[2020-12-07 11:54] LABS: CHLORIDE 99 mmol/L (98-107); POTASSIUM 3.5 mmol/L (3.5-5.1); SODIUM 141 mmol/L (136-145)
[2020-12-07 11:57] LABS: BLOOD UREA NITROGEN 21.7 mg/dL (7-18); CALCIUM 9.1 mg/dL (8.5-10.1)
[2020-12-07 11:58] LABS: ALBUMIN 3.3 g/dl (3.4-5.0); ANION GAP 2 MMOL/L (8-16); CO2 40 mmol/L (21-32); GLUCOSE,RANDOM 90 mg/dL (74-106)
[2020-12-07 12:00] LABS: SGPT/ALT < 6 U/L (13-61)
[2020-12-07 12:01] LABS: CREATININE 1.1 mg/dL (0.55-1.3); SGOT/AST 10 U/L (15-37)
[2020-12-07 12:02] LABS: BILIRUBIN,TOTAL 0.8 mg/dL (0.2-1); TOT PROT 5.8 g/dl (6.4-8.2)
[2020-12-07 12:03] LABS: ALK PHOS 92 U/L (45-117)
[2020-12-07] MEDS ORDERED: WARFARIN NA 2 MG TABLET PO SCH (20:49)
[2020-12-07] MEDS: ATORVASTATIN CA 40 MG TABLET (FP) PO SCH (21:59)
[2020-12-08] MEDS ORDERED: PT OWN MED DRAWER 7, Y5N ONE ×5 (04:37→17:10)
[2020-12-08] MEDS: TORSEMIDE 20 MG TABLET (FP) PO SCH ×2 (06:26→14:23)
[2020-12-08] MEDS: APALUTAMIDE 240 MG PO SCH (06:26)
[2020-12-08] MEDS: POLYETHYLENE GLYCOL 3350 119 GM BTL PO SCH ×4 (06:29→21:15)
[2020-12-08] MEDS: INSULIN (LEVEMIR) 100 UNITS/ML UNITS SQ SCH (06:36)
[2020-12-08] MEDS: INSULIN SLIDING SCALE (NOVOLOG) 1 VIAL SQ SCH ×4 (06:37→21:25)
[2020-12-08] MEDS: ALBUTEROL SO4 2.5/IPRATROPIUM 0.5 INH SOL 3 ML VIAL.NEB. NEB SCH ×4 (07:50→21:15)
[2020-12-08 08:55] LABS: BASO % 0.6 % (0-2.0); EOS % 4.6 % (0-4.5); HEMATOCRIT 25.6 % (35.4-49); HEMATOCRIT 25.9 % (35.4-49); HEMOGLOBIN 8.5 GM/dL (11.7-16.9); HEMOGLOBIN 8.6 GM/dL (11.7-16.9); LYMPH % 23.9 % (8-40); MCH 33.2 pg (25.7-33.7); MCH 33.4 pg (25.7-33.7); MCHC 33.1 g/dl (32.0-35.9); MCHC 33.3 g/dl (32.0-35.9); MEAN CELL VOLUME 100.3 fl (80-96); MEAN CELL VOLUME 100.5 fl (80-96); MEAN PLT VOLUME 8.7 fl (7.5-11.1); MEAN PLT VOLUME 8.8 fl (7.5-11.1); MONO % 8.4 % (3.8-10.2); NEUT % 62.5 % (42.8-82.8); PLATELET COUNT 183 K/MM3 (134-434); RBC 2.55 M/mm3 (4.00-5.60); RBC 2.58 M/mm3 (4.00-5.60); RDW 15.5 % (11.9-15.9); WHITE BLOOD COUNT 5.3 K/mm3 (4.0-10.0); WHITE BLOOD COUNT 5.5 K/mm3 (4.0-10.0)
[2020-12-08 09:17] LABS: POTASSIUM 3.8 mmol/L (3.5-5.1)
[2020-12-08 09:24] LABS: CALCIUM 9.2 mg/dL (8.5-10.1)
[2020-12-08 09:25] LABS: INR 1.47 (0.83-1.09); PROTHROMBIN TIME (PATIENT) 17.9 SEC (9.7-13.0)
[2020-12-08 09:26] LABS: ALBUMIN 3.2 g/dl (3.4-5.0); BLOOD UREA NITROGEN 24.5 mg/dL (7-18)
[2020-12-08 09:29] LABS: CREATININE 1.3 mg/dL (0.55-1.3)
[2020-12-08 09:30] LABS: BILIRUBIN,TOTAL 0.7 mg/dL (0.2-1); TOT PROT 5.7 g/dl (6.4-8.2)
[2020-12-08] MEDS: DULoxetine HCL 30 MG CAPSULE.DR PO SCH (09:56)
[2020-12-08] MEDS: MULTIVITAMINS (DAILY MVI) TABLET (FP) PO SCH (09:56)
[2020-12-08] MEDS: GABAPENTIN 100 MG CAPSULE PO SCH (09:56)
[2020-12-08] MEDS: PANTOPRAZOLE 40 MG TABLET PO SCH ×2 (09:56→21:14)
[2020-12-08] MEDS: CARBIDOPA/LEVODOPA 25/100 TABLET (FP) PO SCH ×2 (09:56→21:14)
[2020-12-08] MEDS: TAMSULOSIN HCL 0.4 MG CAP PO SCH (09:56)
[2020-12-08] MEDS: RIFAXIMIN 550 MG TABLET (UD) PO SCH ×2 (09:56→21:14)
[2020-12-08] MEDS: SPIRONOLACTONE 25 MG TABLET PO SCH ×2 (09:56→14:23)
[2020-12-08] MEDS: LIPASE/PROTEASE/AMYLASE 36,000 UNIT CAPSULE PO SCH ×3 (09:57→17:27)
[2020-12-08] MEDS: BACITRACIN 15 GM TUBE TOPICAL OINTMENT TP SCH ×2 (09:57→21:16)
[2020-12-08] MEDS: MINERAL OIL/PET HY-PHL TOPICAL OINTMENT 454 GM JAR TP SCH ×2 (09:57→21:17)
[2020-12-08] MEDS: NYSTATIN/TRIAMCINOLONE TOPICAL CREAM 15 GM TUBE TP SCH ×2 (09:57→21:18)
[2020-12-08] MEDS: metoPROLOL SUCCINATE 25 MG TAB.SR.24H (FP) PO SCH ×2 (09:57→21:18)
[2020-12-08] MEDS ORDERED: SPIRONOLACTONE 25 MG TABLET PO SCH (12:23)
[2020-12-08] MEDS: WARFARIN NA 10 MG TABLET PO SCH (17:27)
[2020-12-08] MEDS: ATORVASTATIN CA 40 MG TABLET (FP) PO SCH (21:14)
[2020-12-09] MEDS: BENZOCAINE/MENTH/CETYLPYRD CL 1 EACH LOZENGE MM PRN ×3 (01:55→17:39)
[2020-12-09] MEDS: TORSEMIDE 20 MG TABLET (FP) PO SCH ×2 (05:51→14:46)
[2020-12-09] MEDS: POLYETHYLENE GLYCOL 3350 119 GM BTL PO SCH ×3 (05:51→21:28)
[2020-12-09] MEDS: INSULIN (LEVEMIR) 100 UNITS/ML UNITS SQ SCH (05:59)
[2020-12-09] MEDS: APALUTAMIDE 240 MG PO SCH (06:04)
[2020-12-09] MEDS: INSULIN SLIDING SCALE (NOVOLOG) 1 VIAL SQ SCH ×4 (06:05→21:42)
[2020-12-09] MEDS ORDERED: PT OWN MED DRAWER 7, Y5N ONE (06:25)
[2020-12-09] MEDS: ALBUTEROL SO4 2.5/IPRATROPIUM 0.5 INH SOL 3 ML VIAL.NEB. NEB SCH ×4 (07:43→21:10)
[2020-12-09 08:18] LABS: HEMATOCRIT 25.6 % (35.4-49); HEMOGLOBIN 8.3 GM/dL (11.7-16.9); MCH 32.8 pg (25.7-33.7); MCHC 32.4 g/dl (32.0-35.9); MEAN CELL VOLUME 101.1 fl (80-96); MEAN PLT VOLUME 8.9 fl (7.5-11.1); PLATELET COUNT 171 K/MM3 (134-434); RBC 2.53 M/mm3 (4.00-5.60); WHITE BLOOD COUNT 5.1 K/mm3 (4.0-10.0)
[2020-12-09] MEDS: DULoxetine HCL 30 MG CAPSULE.DR PO SCH (09:19)
[2020-12-09] MEDS: PANTOPRAZOLE 40 MG TABLET PO SCH ×2 (09:20→21:31)
[2020-12-09] MEDS: SPIRONOLACTONE 25 MG TABLET PO SCH (09:20)
[2020-12-09] MEDS: TAMSULOSIN HCL 0.4 MG CAP PO SCH (09:21)
[2020-12-09] MEDS: metoPROLOL SUCCINATE 25 MG TAB.SR.24H (FP) PO SCH ×2 (09:21→21:35)
[2020-12-09] MEDS: RIFAXIMIN 550 MG TABLET (UD) PO SCH ×2 (09:21→21:30)
[2020-12-09] MEDS: MULTIVITAMINS (DAILY MVI) TABLET (FP) PO SCH (09:22)
[2020-12-09] MEDS: CARBIDOPA/LEVODOPA 25/100 TABLET (FP) PO SCH ×2 (09:22→21:30)
[2020-12-09] MEDS: LIPASE/PROTEASE/AMYLASE 36,000 UNIT CAPSULE PO SCH ×3 (09:23→17:11)
[2020-12-09] MEDS: NYSTATIN/TRIAMCINOLONE TOPICAL CREAM 15 GM TUBE TP SCH ×2 (09:23→21:28)
[2020-12-09] MEDS: GABAPENTIN 100 MG CAPSULE PO SCH (09:23)
[2020-12-09] MEDS: MINERAL OIL/PET HY-PHL TOPICAL OINTMENT 454 GM JAR TP SCH ×2 (09:24→21:29)
[2020-12-09] MEDS: BACITRACIN 15 GM TUBE TOPICAL OINTMENT TP SCH ×2 (09:24→21:29)
[2020-12-09 13:03] LABS: INR 1.44 (0.83-1.09); PROTHROMBIN TIME (PATIENT) 17.2 SEC (9.7-13.0)
[2020-12-09] MEDS: WARFARIN NA 10 MG TABLET PO SCH (17:11)
[2020-12-09] MEDS: ATORVASTATIN CA 40 MG TABLET (FP) PO SCH (21:31)
[2020-12-10] MEDS: BENZOCAINE/MENTH/CETYLPYRD CL 1 EACH LOZENGE MM PRN ×4 (03:47→23:07)
[2020-12-10] MEDS: POLYETHYLENE GLYCOL 3350 119 GM BTL PO SCH ×3 (06:04→22:19)
[2020-12-10] MEDS: TORSEMIDE 20 MG TABLET (FP) PO SCH ×2 (06:04→15:16)
[2020-12-10] MEDS: APALUTAMIDE 240 MG PO SCH (06:06)
[2020-12-10] MEDS: INSULIN (LEVEMIR) 100 UNITS/ML UNITS SQ SCH (06:07)
[2020-12-10] MEDS: INSULIN SLIDING SCALE (NOVOLOG) 1 VIAL SQ SCH ×4 (06:11→22:24)
[2020-12-10] MEDS ORDERED: PT OWN MED DRAWER 7, Y5N ONE (06:30)
[2020-12-10 07:56] LABS: BASO % 0.7 % (0-2.0); EOS % 6.8 % (0-4.5); HEMATOCRIT 25.5 % (35.4-49); HEMOGLOBIN 8.3 GM/dL (11.7-16.9); LYMPH % 17.8 % (8-40); MCH 32.9 pg (25.7-33.7); MCHC 32.7 g/dl (32.0-35.9); MEAN CELL VOLUME 100.6 fl (80-96); MEAN PLT VOLUME 9.1 fl (7.5-11.1); MONO % 8.2 % (3.8-10.2); NEUT % 66.5 % (42.8-82.8); PLATELET COUNT 176 K/MM3 (134-434); RBC 2.54 M/mm3 (4.00-5.60); RDW 15.6 % (11.9-15.9); WHITE BLOOD COUNT 5.2 K/mm3 (4.0-10.0)
[2020-12-10 08:00] LABS: POTASSIUM 4.5 mmol/L (3.5-5.1)
[2020-12-10 08:05] LABS: INR 1.78 (0.83-1.09); PROTHROMBIN TIME (PATIENT) 21.5 SEC (9.7-13.0)
[2020-12-10 08:07] LABS: ALBUMIN 3.3 g/dl (3.4-5.0); BLOOD UREA NITROGEN 35.8 mg/dL (7-18); CALCIUM 9.3 mg/dL (8.5-10.1)
[2020-12-10 08:09] LABS: BILIRUBIN,TOTAL 0.5 mg/dL (0.2-1); TOT PROT 5.9 g/dl (6.4-8.2)
[2020-12-10 08:10] LABS: CREATININE 1.2 mg/dL (0.55-1.3)
[2020-12-10] MEDS: ALBUTEROL SO4 2.5/IPRATROPIUM 0.5 INH SOL 3 ML VIAL.NEB. NEB SCH ×4 (08:46→19:55)
[2020-12-10] MEDS: LIPASE/PROTEASE/AMYLASE 36,000 UNIT CAPSULE PO SCH ×3 (09:45→17:39)
[2020-12-10] MEDS: DULoxetine HCL 30 MG CAPSULE.DR PO SCH (09:45)
[2020-12-10] MEDS: GABAPENTIN 100 MG CAPSULE PO SCH (09:46)
[2020-12-10] MEDS: RIFAXIMIN 550 MG TABLET (UD) PO SCH ×2 (09:46→22:18)
[2020-12-10] MEDS: PANTOPRAZOLE 40 MG TABLET PO SCH ×2 (09:46→22:18)
[2020-12-10] MEDS: TAMSULOSIN HCL 0.4 MG CAP PO SCH (09:46)
[2020-12-10] MEDS: SPIRONOLACTONE 25 MG TABLET PO SCH (09:47)
[2020-12-10] MEDS: CARBIDOPA/LEVODOPA 25/100 TABLET (FP) PO SCH ×2 (09:47→22:18)
[2020-12-10] MEDS: BACITRACIN 15 GM TUBE TOPICAL OINTMENT TP SCH ×2 (09:48→22:18)
[2020-12-10] MEDS: NYSTATIN/TRIAMCINOLONE TOPICAL CREAM 15 GM TUBE TP SCH ×2 (09:48→22:18)
[2020-12-10] MEDS: MINERAL OIL/PET HY-PHL TOPICAL OINTMENT 454 GM JAR TP SCH ×2 (09:48→22:19)
[2020-12-10] MEDS: metoPROLOL SUCCINATE 25 MG TAB.SR.24H (FP) PO SCH ×2 (09:48→22:19)
[2020-12-10] MEDS: MULTIVITAMINS (DAILY MVI) TABLET (FP) PO SCH (11:22)
[2020-12-10] MEDS ORDERED: LACTULOSE 20 GM/30 ML UDC (FOR ORAL USE ONLY) PO PRN (11:24)
[2020-12-10] MEDS ORDERED: HEPARIN NA (PORCINE) 5,000 UNITS/ML 1ML VIAL IVPUSH PRN ×2 (12:48)
[2020-12-10] MEDS: HEPARIN SOD,PORK IN 0.45% NACL 25,000 UNITS/500 ML INFUS.BAG IVPB SCH (15:16)
[2020-12-10] MEDS ORDERED: WARFARIN NA 5 MG TABLET PO SCH (18:00)
[2020-12-10] MEDS: ATORVASTATIN CA 40 MG TABLET (FP) PO SCH (22:18)
[2020-12-11] MEDS: POLYETHYLENE GLYCOL 3350 119 GM BTL PO SCH ×3 (05:33→22:40)
[2020-12-11] MEDS: TORSEMIDE 20 MG TABLET (FP) PO SCH ×2 (05:33→13:05)
[2020-12-11] MEDS: APALUTAMIDE 240 MG PO SCH (06:10)
[2020-12-11] MEDS: INSULIN SLIDING SCALE (NOVOLOG) 1 VIAL SQ SCH ×4 (06:11→21:13)
[2020-12-11] MEDS: INSULIN (LEVEMIR) 100 UNITS/ML UNITS SQ SCH (06:11)
[2020-12-11] MEDS ORDERED: PT OWN MED DRAWER 7, Y5N ONE ×3 (06:19→17:26)
[2020-12-11] MEDS: ALBUTEROL SO4 2.5/IPRATROPIUM 0.5 INH SOL 3 ML VIAL.NEB. NEB SCH ×4 (08:10→21:34)
[2020-12-11 09:21] LABS: BASO % 0.9 % (0-2.0); EOS % 6.8 % (0-4.5); HEMATOCRIT 28.3 % (35.4-49); HEMOGLOBIN 9.1 GM/dL (11.7-16.9); LYMPH % 19.7 % (8-40); MCH 32.9 pg (25.7-33.7); MCHC 32.3 g/dl (32.0-35.9); MEAN CELL VOLUME 101.9 fl (80-96); MEAN PLT VOLUME 9.3 fl (7.5-11.1); MONO % 7.3 % (3.8-10.2); NEUT % 65.3 % (42.8-82.8); PLATELET COUNT 192 K/MM3 (134-434); RBC 2.78 M/mm3 (4.00-5.60); RDW 15.9 % (11.9-15.9); WHITE BLOOD COUNT 5.9 K/mm3 (4.0-10.0)
[2020-12-11 09:29] LABS: INR 2.11 (0.83-1.09)
[2020-12-11 09:33] LABS: ACTIVATED PTT 58.9 SECONDS (25.2-36.5)
[2020-12-11 09:49] LABS: POTASSIUM 3.9 mmol/L (3.5-5.1)
[2020-12-11] MEDS: SPIRONOLACTONE 25 MG TABLET PO SCH (09:54)
[2020-12-11] MEDS: CARBIDOPA/LEVODOPA 25/100 TABLET (FP) PO SCH ×2 (09:54→21:04)
[2020-12-11] MEDS: GABAPENTIN 100 MG CAPSULE PO SCH (09:55)
[2020-12-11] MEDS: MULTIVITAMINS (DAILY MVI) TABLET (FP) PO SCH (09:55)
[2020-12-11] MEDS: metoPROLOL SUCCINATE 25 MG TAB.SR.24H (FP) PO SCH ×2 (09:55→21:03)
[2020-12-11] MEDS: DULoxetine HCL 30 MG CAPSULE.DR PO SCH (09:55)
[2020-12-11] MEDS: PANTOPRAZOLE 40 MG TABLET PO SCH ×2 (09:55→21:03)
[2020-12-11] MEDS: TAMSULOSIN HCL 0.4 MG CAP PO SCH (09:55)
[2020-12-11] MEDS: RIFAXIMIN 550 MG TABLET (UD) PO SCH ×2 (09:55→21:03)
[2020-12-11] MEDS: MINERAL OIL/PET HY-PHL TOPICAL OINTMENT 454 GM JAR TP SCH ×2 (09:56→21:05)
[2020-12-11] MEDS: BACITRACIN 15 GM TUBE TOPICAL OINTMENT TP SCH ×2 (09:57→21:04)
[2020-12-11] MEDS: LIPASE/PROTEASE/AMYLASE 36,000 UNIT CAPSULE PO SCH ×3 (10:04→17:39)
[2020-12-11 10:05] LABS: ALBUMIN 3.5 g/dl (3.4-5.0); BLOOD UREA NITROGEN 39.9 mg/dL (7-18); CALCIUM 9.3 mg/dL (8.5-10.1)
[2020-12-11 10:08] LABS: CREATININE 1.4 mg/dL (0.55-1.3)
[2020-12-11 10:10] LABS: BILIRUBIN,TOTAL 0.4 mg/dL (0.2-1); TOT PROT 6.3 g/dl (6.4-8.2)
[2020-12-11] MEDS: BENZOCAINE/MENTH/CETYLPYRD CL 1 EACH LOZENGE MM PRN (11:16)
[2020-12-11] MEDS: HEPARIN SOD,PORK IN 0.45% NACL 25,000 UNITS/500 ML INFUS.BAG IVPB SCH (15:39)
[2020-12-11] MEDS: NYSTATIN/TRIAMCINOLONE TOPICAL CREAM 15 GM TUBE TP SCH ×2 (17:38→21:04)
[2020-12-11] MEDS ORDERED: WARFARIN NA 7.5 MG TABLET (FP) PO SCH (18:00)
[2020-12-11] MEDS: ATORVASTATIN CA 40 MG TABLET (FP) PO SCH (21:03)
[2020-12-12] MEDS: TORSEMIDE 20 MG TABLET (FP) PO SCH ×2 (05:20→14:10)
[2020-12-12] MEDS: POLYETHYLENE GLYCOL 3350 119 GM BTL PO SCH ×3 (05:20→22:55)
[2020-12-12] MEDS: APALUTAMIDE 240 MG PO SCH (06:02)
[2020-12-12] MEDS: INSULIN (LEVEMIR) 100 UNITS/ML UNITS SQ SCH (06:03)
[2020-12-12] MEDS: INSULIN SLIDING SCALE (NOVOLOG) 1 VIAL SQ SCH ×4 (06:15→23:01)
[2020-12-12] MEDS ORDERED: PT OWN MED DRAWER 7, Y5N ONE ×5 (06:35→21:32)
[2020-12-12] MEDS: ALBUTEROL SO4 2.5/IPRATROPIUM 0.5 INH SOL 3 ML VIAL.NEB. NEB SCH (07:48)
[2020-12-12 08:22] LABS: HEMATOCRIT 25.2 % (35.4-49); HEMOGLOBIN 8.2 GM/dL (11.7-16.9); MCH 32.8 pg (25.7-33.7); MCHC 32.7 g/dl (32.0-35.9); MEAN CELL VOLUME 100.4 fl (80-96); MEAN PLT VOLUME 9.4 fl (7.5-11.1); PLATELET COUNT 172 K/MM3 (134-434); RBC 2.51 M/mm3 (4.00-5.60); RDW 15.8 % (11.9-15.9); WHITE BLOOD COUNT 4.8 K/mm3 (4.0-10.0)
[2020-12-12] MEDS: TAMSULOSIN HCL 0.4 MG CAP PO SCH (08:34)
[2020-12-12 10:24] LABS: ALBUMIN 3.4 g/dl (3.4-5.0); BILIRUBIN,TOTAL 0.3 mg/dL (0.2-1); BLOOD UREA NITROGEN 45.7 mg/dL (7-18); CALCIUM 9.1 mg/dL (8.5-10.1); CREATININE 1.3 mg/dL (0.55-1.3); POTASSIUM 3.8 mmol/L (3.5-5.1); TOT PROT 6.1 g/dl (6.4-8.2)
[2020-12-12] MEDS: SPIRONOLACTONE 25 MG TABLET PO SCH (10:24)
[2020-12-12 10:26] LABS: INR 2.08 (0.83-1.09)
[2020-12-12] MEDS: CARBIDOPA/LEVODOPA 25/100 TABLET (FP) PO SCH ×2 (10:26→22:53)
[2020-12-12] MEDS: DULoxetine HCL 30 MG CAPSULE.DR PO SCH (10:26)
[2020-12-12] MEDS: GABAPENTIN 100 MG CAPSULE PO SCH (10:26)
[2020-12-12] MEDS: PANTOPRAZOLE 40 MG TABLET PO SCH ×2 (10:26→22:53)
[2020-12-12] MEDS: RIFAXIMIN 550 MG TABLET (UD) PO SCH ×2 (10:27→22:53)
[2020-12-12] MEDS: MULTIVITAMINS (DAILY MVI) TABLET (FP) PO SCH (10:27)
[2020-12-12] MEDS: metoPROLOL SUCCINATE 25 MG TAB.SR.24H (FP) PO SCH ×2 (10:27→23:00)
[2020-12-12] MEDS: MINERAL OIL/PET HY-PHL TOPICAL OINTMENT 454 GM JAR TP SCH ×2 (10:27→22:54)
[2020-12-12] MEDS: BACITRACIN 15 GM TUBE TOPICAL OINTMENT TP SCH ×2 (10:28→22:54)
[2020-12-12] MEDS: NYSTATIN/TRIAMCINOLONE TOPICAL CREAM 15 GM TUBE TP SCH ×2 (10:28→22:55)
[2020-12-12] MEDS: LIPASE/PROTEASE/AMYLASE 36,000 UNIT CAPSULE PO SCH ×3 (11:06→17:39)
[2020-12-12] MEDS: HEPARIN SOD,PORK IN 0.45% NACL 25,000 UNITS/500 ML INFUS.BAG IVPB SCH ×2 (14:11→15:59)
[2020-12-12] MEDS: WARFARIN NA 10 MG TABLET PO SCH (17:44)
[2020-12-12] MEDS ORDERED: INSULIN (NOVOLOG) ASPART 100 UNITS/ML 10ML VIAL ONE (19:38)
[2020-12-12] MEDS: ALBUTEROL SO4 2.5/IPRATROPIUM 0.5 INH SOL 3 ML VIAL.NEB. NEB PRN (22:30)
[2020-12-12] MEDS: ATORVASTATIN CA 40 MG TABLET (FP) PO SCH (22:53)
[2020-12-13] MEDS: TORSEMIDE 20 MG TABLET (FP) PO SCH ×2 (05:57→13:59)
[2020-12-13] MEDS: POLYETHYLENE GLYCOL 3350 119 GM BTL PO SCH ×3 (05:57→21:32)
[2020-12-13] MEDS: INSULIN (LEVEMIR) 100 UNITS/ML UNITS SQ SCH (06:00)
[2020-12-13] MEDS: APALUTAMIDE 240 MG PO SCH (06:00)
[2020-12-13] MEDS: ALBUTEROL SO4 2.5/IPRATROPIUM 0.5 INH SOL 3 ML VIAL.NEB. NEB PRN (06:00)
[2020-12-13] MEDS: INSULIN SLIDING SCALE (NOVOLOG) 1 VIAL SQ SCH ×4 (07:39→21:32)
[2020-12-13] MEDS ORDERED: PT OWN MED DRAWER 7, Y5N ONE ×5 (08:23→18:18)
[2020-12-13] MEDS: TAMSULOSIN HCL 0.4 MG CAP PO SCH (08:29)
[2020-12-13 08:35] LABS: HEMATOCRIT 25.3 % (35.4-49); HEMOGLOBIN 8.3 GM/dL (11.7-16.9); MCH 33.2 pg (25.7-33.7); MCHC 32.7 g/dl (32.0-35.9); MEAN CELL VOLUME 101.7 fl (80-96); MEAN PLT VOLUME 9.4 fl (7.5-11.1); PLATELET COUNT 168 K/MM3 (134-434); RBC 2.48 M/mm3 (4.00-5.60); RDW 15.8 % (11.9-15.9); WHITE BLOOD COUNT 4.2 K/mm3 (4.0-10.0)
[2020-12-13] MEDS: LIPASE/PROTEASE/AMYLASE 36,000 UNIT CAPSULE PO SCH ×3 (10:27→17:44)
[2020-12-13] MEDS: DULoxetine HCL 30 MG CAPSULE.DR PO SCH (10:32)
[2020-12-13] MEDS: CARBIDOPA/LEVODOPA 25/100 TABLET (FP) PO SCH ×2 (10:32→21:20)
[2020-12-13] MEDS: MULTIVITAMINS (DAILY MVI) TABLET (FP) PO SCH (10:32)
[2020-12-13] MEDS: PANTOPRAZOLE 40 MG TABLET PO SCH ×2 (10:32→21:20)
[2020-12-13] MEDS: GABAPENTIN 100 MG CAPSULE PO SCH (10:32)
[2020-12-13] MEDS: MINERAL OIL/PET HY-PHL TOPICAL OINTMENT 454 GM JAR TP SCH ×2 (10:33→21:21)
[2020-12-13] MEDS: metoPROLOL SUCCINATE 25 MG TAB.SR.24H (FP) PO SCH ×2 (10:33→21:33)
[2020-12-13] MEDS: RIFAXIMIN 550 MG TABLET (UD) PO SCH ×2 (10:33→21:21)
[2020-12-13] MEDS: NYSTATIN/TRIAMCINOLONE TOPICAL CREAM 15 GM TUBE TP SCH ×2 (10:34→21:22)
[2020-12-13] MEDS: BACITRACIN 15 GM TUBE TOPICAL OINTMENT TP SCH ×2 (10:34→21:21)
[2020-12-13] MEDS: SPIRONOLACTONE 25 MG TABLET PO SCH (12:08)
[2020-12-13 14:56] VITALS: BMI 29.2
[2020-12-13] MEDS: HEPARIN SOD,PORK IN 0.45% NACL 25,000 UNITS/500 ML INFUS.BAG IVPB SCH ×2 (15:55→18:20)
[2020-12-13] MEDS: WARFARIN NA 10 MG TABLET PO SCH (17:44)
[2020-12-13 18:45] LABS: INR 2.89 (0.83-1.09); PROTHROMBIN TIME (PATIENT) 33.9 SEC (9.7-13.0)
[2020-12-13] MEDS ORDERED: INSULIN (NOVOLOG) ASPART 100 UNITS/ML 10ML VIAL ONE (20:56)
[2020-12-13] MEDS: ATORVASTATIN CA 40 MG TABLET (FP) PO SCH (21:21)
[2020-12-14] MEDS: TORSEMIDE 20 MG TABLET (FP) PO SCH ×2 (05:50→13:54)
[2020-12-14] MEDS: POLYETHYLENE GLYCOL 3350 119 GM BTL PO SCH ×3 (06:37→22:14)
[2020-12-14] MEDS: INSULIN (LEVEMIR) 100 UNITS/ML UNITS SQ SCH (06:38)
[2020-12-14] MEDS: APALUTAMIDE 240 MG PO SCH (06:38)
[2020-12-14] MEDS: INSULIN SLIDING SCALE (NOVOLOG) 1 VIAL SQ SCH ×4 (07:31→22:15)
[2020-12-14] MEDS: ALBUTEROL SO4 2.5/IPRATROPIUM 0.5 INH SOL 3 ML VIAL.NEB. NEB PRN ×2 (07:58→15:11)
[2020-12-14] MEDS: LIPASE/PROTEASE/AMYLASE 36,000 UNIT CAPSULE PO SCH ×3 (08:26→17:10)
[2020-12-14] MEDS: TAMSULOSIN HCL 0.4 MG CAP PO SCH (08:26)
[2020-12-14] MEDS: SPIRONOLACTONE 25 MG TABLET PO SCH (09:01)
[2020-12-14] MEDS: GABAPENTIN 100 MG CAPSULE PO SCH (09:01)
[2020-12-14] MEDS: PANTOPRAZOLE 40 MG TABLET PO SCH ×2 (09:01→22:15)
[2020-12-14] MEDS: CARBIDOPA/LEVODOPA 25/100 TABLET (FP) PO SCH ×2 (09:01→22:15)
[2020-12-14] MEDS: MULTIVITAMINS (DAILY MVI) TABLET (FP) PO SCH (09:02)
[2020-12-14] MEDS: RIFAXIMIN 550 MG TABLET (UD) PO SCH (09:02)
[2020-12-14 09:26] LABS: HEMATOCRIT 26.6 % (35.4-49); HEMOGLOBIN 8.7 GM/dL (11.7-16.9); MCHC 32.7 g/dl (32.0-35.9); MEAN PLT VOLUME 9.5 fl (7.5-11.1); PLATELET COUNT 191 K/MM3 (134-434); RBC 2.64 M/mm3 (4.00-5.60); RDW 15.9 % (11.9-15.9); WHITE BLOOD COUNT 4.8 K/mm3 (4.0-10.0)
[2020-12-14 09:33] LABS: INR 2.14 (0.83-1.09); PROTHROMBIN TIME (PATIENT) 25.8 SEC (9.7-13.0)
[2020-12-14 09:36] LABS: ACTIVATED PTT 40.1 SECONDS (25.2-36.5)
[2020-12-14] MEDS: DULoxetine HCL 30 MG CAPSULE.DR PO SCH (10:06)
[2020-12-14] MEDS: metoPROLOL SUCCINATE 25 MG TAB.SR.24H (FP) PO SCH ×2 (10:06→22:15)
[2020-12-14] MEDS: BACITRACIN 15 GM TUBE TOPICAL OINTMENT TP SCH ×2 (11:24→22:14)
[2020-12-14] MEDS: NYSTATIN/TRIAMCINOLONE TOPICAL CREAM 15 GM TUBE TP SCH ×2 (11:24→22:14)
[2020-12-14] MEDS: MINERAL OIL/PET HY-PHL TOPICAL OINTMENT 454 GM JAR TP SCH ×2 (11:24→22:14)
[2020-12-14] MEDS ORDERED: PT OWN MED DRAWER 7, Y5N ONE ×2 (11:38→17:07)
[2020-12-14] MEDS ORDERED: WARFARIN NA 5 MG TABLET PO SCH (18:00)
[2020-12-14] MEDS ORDERED: WARFARIN NA 7.5 MG TABLET (FP) PO SCH (18:00)
[2020-12-14] MEDS: ATORVASTATIN CA 40 MG TABLET (FP) PO SCH (22:14)
[2020-12-15 06:58] VITALS: BP 121/62; PULSE 63; TEMP 97.8
[2020-12-15] MEDS: TORSEMIDE 20 MG TABLET (FP) PO SCH (07:07)
[2020-12-15] MEDS: POLYETHYLENE GLYCOL 3350 119 GM BTL PO SCH (07:08)
[2020-12-15] MEDS: APALUTAMIDE 240 MG PO SCH (07:08)
[2020-12-15] MEDS: INSULIN SLIDING SCALE (NOVOLOG) 1 VIAL SQ SCH (07:09)
[2020-12-15] MEDS: INSULIN (LEVEMIR) 100 UNITS/ML UNITS SQ SCH (07:09)
[2020-12-15] MEDS: ALBUTEROL SO4 2.5/IPRATROPIUM 0.5 INH SOL 3 ML VIAL.NEB. NEB PRN (07:51)
[2020-12-15] MEDS: DULoxetine HCL 30 MG CAPSULE.DR PO SCH (08:53)
[2020-12-15] MEDS: metoPROLOL SUCCINATE 25 MG TAB.SR.24H (FP) PO SCH (08:53)
[2020-12-15] MEDS: LIPASE/PROTEASE/AMYLASE 36,000 UNIT CAPSULE PO SCH (08:53)
[2020-12-15] MEDS: TAMSULOSIN HCL 0.4 MG CAP PO SCH (08:53)
[2020-12-15] MEDS: PANTOPRAZOLE 40 MG TABLET PO SCH (08:54)
[2020-12-15] MEDS: MULTIVITAMINS (DAILY MVI) TABLET (FP) PO SCH (08:55)
[2020-12-15] MEDS: CARBIDOPA/LEVODOPA 25/100 TABLET (FP) PO SCH (08:56)
[2020-12-15] MEDS: SPIRONOLACTONE 25 MG TABLET PO SCH (08:56)
[2020-12-15] MEDS: NYSTATIN/TRIAMCINOLONE TOPICAL CREAM 15 GM TUBE TP SCH ×2 (08:57→08:58)
[2020-12-15] MEDS: GABAPENTIN 100 MG CAPSULE PO SCH (08:58)
== END 2020-12-15 12:47 | disposition home health service (06) | DRG 175 ==
LOC: JER 17:26 → JERBED 23:44 → J4S 11-13 01:57 → J8W 11-24 01:20 → J4S 11-26 03:34 → J5WEST-2 12-01 20:29 → J8W 12-03 12:32
PROVIDERS: ADMIT Internal Medicine; ATTEND Internal Medicine
PROC: 0W9G3ZX Drainage of Peritoneal Cavity, Percutaneous Approach, Diagnostic (ICD-10-PCS; principal; 2020-12-04)
PROC: 0DBP8ZX Excision of Rectum, Via Natural or Artificial Opening Endoscopic, Diagnostic (ICD-10-PCS; 2020-12-07)
DX: I26.99 Other pulmonary embolism without acute cor pulmonale (principal); J18.9 Pneumonia, unspecified organism; I50.43 Acute on chronic combined systolic (congestive) and diastolic (congestive) heart failure; J98.11 Atelectasis; N17.9 Acute kidney failure, unspecified; I24.8 Other forms of acute ischemic heart disease; R18.8 Other ascites; I48.92 Unspecified atrial flutter; I13.0 Hypertensive heart and chronic kidney disease with heart failure and stage 1 through stage 4 chronic kidney disease, or unspecified chronic kidney disease; N39.0 Urinary tract infection, site not specified; J96.11 Chronic respiratory failure with hypoxia; K56.7 Ileus, unspecified; J44.9 Chronic obstructive pulmonary disease, unspecified; E78.5 Hyperlipidemia, unspecified; Z95.5 Presence of coronary angioplasty implant and graft; E11.9 Type 2 diabetes mellitus without complications; I48.91 Unspecified atrial fibrillation; Z85.46 Personal history of malignant neoplasm of prostate; I27.20 Pulmonary hypertension, unspecified; N40.0 Benign prostatic hyperplasia without lower urinary tract symptoms; M10.9 Gout, unspecified; F32.9 Major depressive disorder, single episode, unspecified; D64.9 Anemia, unspecified; E83.42 Hypomagnesemia; R14.0 Abdominal distension (gaseous); Z99.81 Dependence on supplemental oxygen; K57.90 Diverticulosis of intestine, part unspecified, without perforation or abscess without bleeding; K59.09 Other constipation; I25.119 Atherosclerotic heart disease of native coronary artery with unspecified angina pectoris; G20 Parkinson's disease; D63.1 Anemia in chronic kidney disease; G47.30 Sleep apnea, unspecified; E11.22 Type 2 diabetes mellitus with diabetic chronic kidney disease; N18.9 Chronic kidney disease, unspecified; E66.9 Obesity, unspecified; Z68.28 Body mass index [BMI] 28.0-28.9, adult; B96.20 Unspecified Escherichia coli [E. coli] as the cause of diseases classified elsewhere
CPT/HCPCS: 36415; 71045-TC-FY; 71275-TC; 74018-TC-FY; 74019-TC-FY; 74176-TC; 76705-TC; 76942-TC; 80048; 80053; 81003; 82042; 82150; 82248; 82272; 82465; 82550; 82728; 82945; 82962; 83605; 83615; 83735; 83880; 83986; 84100; 84153; 84157; 84439; 84443; 84478; 84484; 85025; 85027; 85379; 85384; 85610; 85730; 86140; 87040; 87070; 87075; 87086; 87102; 87116; 87186; 87205; 87206; 87210; 87804; 88108; 88305-TC; 93005; 93010; 93306-TC; 93970-TC; 93976; 94640; 94761; 97116-GP; 97161-GP; 99291; C9803; J0131; J1644; U0003

== ENCOUNTER 2021-02-24 17:35 | Inpatient (IN) | payer OTHER ==
[2021-02-24 18:24] LABS: VENOUS BASE EXCESS 1.7 mmol/L (-2-2); VENOUS O2 SATURATION 64.9 % (70-80); VENOUS PCO2 51.4 mmHg (38-52); VENOUS PH 7.354 (7.310-7.410)
[2021-02-24 18:26] LABS: BASO % 0.9 % (0-2.0); EOS % 3.1 % (0-4.5); HEMATOCRIT 30.9 % (35.4-49); HEMOGLOBIN 9.9 GM/dL (11.7-16.9); LYMPH % 19.7 % (8-40); MCH 32.7 pg (25.7-33.7); MEAN CELL VOLUME 102.2 fl (80-96); MEAN PLT VOLUME 9.1 fl (7.5-11.1); MONO % 9.9 % (3.8-10.2); NEUT % 66.4 % (42.8-82.8); PLATELET COUNT 223 K/MM3 (134-434); RBC 3.02 M/mm3 (4.00-5.60); RDW 16.3 % (11.9-15.9); WHITE BLOOD COUNT 6.2 K/mm3 (4.0-10.0)
[2021-02-24 18:32] LABS: INR 2.45 (0.83-1.09); PROTHROMBIN TIME (PATIENT) 29.4 SEC (9.7-13.0)
[2021-02-24 18:34] LABS: ACTIVATED PTT 38.2 SECONDS (25.2-36.5)
[2021-02-24 18:47] LABS: ALBUMIN 3.8 g/dl (3.4-5.0)
[2021-02-24 18:50] LABS: CREATININE 1.7 mg/dL (0.55-1.3)
[2021-02-24 18:52] LABS: BILIRUBIN,TOTAL 0.5 mg/dL (0.2-1); TOT PROT 6.5 g/dl (6.4-8.2)
[2021-02-24 18:55] LABS: N-TERMINAL BNP 9360.4 pg/ml (5-450)
[2021-02-24] MEDS ORDERED: SODIUM CHLORIDE 0.9% 500 ML INFUS.BAG IV ONE (19:08)
[2021-02-24 20:05] LABS: CALCIUM 8.9 mg/dL (8.5-10.1)
[2021-02-24 20:06] LABS: BLOOD UREA NITROGEN 45.5 mg/dL (7-18)
[2021-02-24 20:09] LABS: CREATININE 1.6 mg/dL (0.55-1.3)
[2021-02-24] MEDS ORDERED: DIGOXIN 0.5 MG/2 ML AMPUL IVPUSH ONE (20:40)
[2021-02-24] MEDS ORDERED: DIGOXIN 0.5 MG/2 ML AMPUL ONE (20:42)
[2021-02-24 22:48] LABS: BASO % 1.2 % (0-2.0); EOS % 3.4 % (0-4.5); HEMATOCRIT 29.5 % (35.4-49); HEMOGLOBIN 9.5 GM/dL (11.7-16.9); LYMPH % 18.4 % (8-40); MCH 32.7 pg (25.7-33.7); MCHC 32.1 g/dl (32.0-35.9); MEAN CELL VOLUME 101.9 fl (80-96); MEAN PLT VOLUME 8.5 fl (7.5-11.1); MONO % 10.8 % (3.8-10.2); NEUT % 66.2 % (42.8-82.8); PLATELET COUNT 207 K/MM3 (134-434); RBC 2.89 M/mm3 (4.00-5.60); RDW 16.2 % (11.9-15.9)
[2021-02-24] MEDS ORDERED: MORPHINE SULFATE 2 MG/ML VIAL IVPUSH ONE (23:42)
[2021-02-24] MEDS ORDERED: MORPHINE SULFATE 2 MG/ML VIAL ONE (23:44)
[2021-02-25] MEDS: MUPIROCIN 2% TOPICAL OINTMENT FOR DECOLONIZATION NS SCH ×3 (00:37→21:03)
[2021-02-25] MEDS ORDERED: METOPROLOL TARTRATE 5 MG/5 ML VIAL IVPUSH ONE (02:35)
[2021-02-25] MEDS ORDERED: METOPROLOL TARTRATE 5 MG/5 ML VIAL ONE (02:38)
[2021-02-25] MEDS ORDERED: AMIODARONE IN DEXTROSE,ISO-OSM 360 MG/200 ML BAG IVPB ONE (03:45)
[2021-02-25] MEDS ORDERED: AMIODARONE IN DEXTROSE,ISO-OSM 150 MG/100 ML BAG IVPB ONE (03:45)
[2021-02-25 07:36] LABS: BASO % 0.8 % (0-2.0); EOS % 3.3 % (0-4.5); HEMOGLOBIN 10.3 GM/dL (11.7-16.9); LYMPH % 21.4 % (8-40); MCH 33.3 pg (25.7-33.7); MCHC 32.3 g/dl (32.0-35.9); MEAN CELL VOLUME 103.1 fl (80-96); MEAN PLT VOLUME 9.2 fl (7.5-11.1); MONO % 14.2 % (3.8-10.2); NEUT % 60.3 % (42.8-82.8); PLATELET COUNT 227 K/MM3 (134-434); RDW 16.3 % (11.9-15.9); WHITE BLOOD COUNT 6.2 K/mm3 (4.0-10.0)
[2021-02-25 07:41] LABS: CALCIUM 9.1 mg/dL (8.5-10.1)
[2021-02-25 07:42] LABS: ALBUMIN 3.7 g/dl (3.4-5.0); BLOOD UREA NITROGEN 44.3 mg/dL (7-18); MAGNESIUM 2.1 mg/dL (1.8-2.4)
[2021-02-25 07:45] LABS: CREATININE 1.6 mg/dL (0.55-1.3); PHOSPHOROUS 4.8 mg/dL (2.5-4.9)
[2021-02-25 07:46] LABS: BILIRUBIN,TOTAL 0.6 mg/dL (0.2-1)
[2021-02-25 07:47] LABS: TOT PROT 6.2 g/dl (6.4-8.2)
[2021-02-25] MEDS ORDERED: AMIODARONE IN DEXTROSE,ISO-OSM 360 MG/200 ML BAG IVPB SCH (09:45)
[2021-02-25 13:47] LABS: EPI CELLS 6 /uL (0-25.1); HYALINE CASTS 1 /uL (0-3.1); URINE APPEARANCE CLOUDY; URINE BACTERIA >9,000 /uL (0-1359); URINE BILIRUBIN NEGATIVE (NEGATIVE); URINE COLOR YELLOW; URINE GLUCOSE (UA) NEGATIVE (NEGATIVE); URINE KETONE NEGATIVE (NEGATIVE); URINE LEUK ESTERASE 2+ (NEGATIVE); URINE NITRITE NEGATIVE (NEGATIVE); URINE PROTEIN TRACE (NEGATIVE); URINE RBC 21 /uL (0-23.9); URINE UROBILINOGEN 0.2 mg/dL (0.2-1.0); URINE WBC 529 /uL (0-25.8)
[2021-02-25] MEDS: DEXTROSE 5%-WATER - 1,000 ML IV SCH (16:53)
[2021-02-25] MEDS: PANTOPRAZOLE SODIUM 40 MG VIAL IVPUSH SCH (21:03)
[2021-02-25] MEDS: CHLORHEXIDINE GLUCONATE 4% CLEANSER FOR DECOLONIZATION TP SCH (21:03)
[2021-02-26 06:56] LABS: BASO % 0.6 % (0-2.0); EOS % 5.2 % (0-4.5); HEMATOCRIT 31.1 % (35.4-49); HEMOGLOBIN 9.9 GM/dL (11.7-16.9); LYMPH % 11.2 % (8-40); MCH 33.4 pg (25.7-33.7); MEAN CELL VOLUME 104.3 fl (80-96); MEAN PLT VOLUME 8.7 fl (7.5-11.1); MONO % 10.6 % (3.8-10.2); NEUT % 72.4 % (42.8-82.8); PLATELET COUNT 195 K/MM3 (134-434); RBC 2.98 M/mm3 (4.00-5.60); RDW 15.9 % (11.9-15.9); WHITE BLOOD COUNT 5.5 K/mm3 (4.0-10.0)
[2021-02-26 07:14] LABS: BLOOD UREA NITROGEN 30.9 mg/dL (7-18); CALCIUM 9.9 mg/dL (8.5-10.1)
[2021-02-26 07:15] LABS: ALBUMIN 3.7 g/dl (3.4-5.0); MAGNESIUM 2.3 mg/dL (1.8-2.4)
[2021-02-26 07:18] LABS: CREATININE 1.3 mg/dL (0.55-1.3); PHOSPHOROUS 3.9 mg/dL (2.5-4.9)
[2021-02-26 07:19] LABS: BILIRUBIN,TOTAL 0.5 mg/dL (0.2-1); TOT PROT 6.4 g/dl (6.4-8.2)
[2021-02-26] MEDS: PANTOPRAZOLE SODIUM 40 MG VIAL IVPUSH SCH ×2 (10:19→21:08)
[2021-02-26] MEDS: MUPIROCIN 2% TOPICAL OINTMENT FOR DECOLONIZATION NS SCH ×2 (10:19→21:08)
[2021-02-26] MEDS: ALBUTEROL SO4 2.5/IPRATROPIUM 0.5 INH SOL 3 ML VIAL.NEB. NEB SCH ×3 (12:20→20:49)
[2021-02-26] MEDS: DEXTROSE 5%-WATER - 1,000 ML IV SCH (16:57)
[2021-02-26] MEDS ORDERED: MAGNESIUM CITRATE 300 ML BOTTLE PO ONE (19:54)
[2021-02-26] MEDS ORDERED: PT OWN MED DRAWER 7, Y5N ONE (21:02)
[2021-02-26] MEDS: RIFAXIMIN 550 MG TABLET (UD) PO SCH (21:07)
[2021-02-26] MEDS: LIPASE/PROTEASE/AMYLASE 36,000 UNIT CAPSULE PO SCH (21:07)
[2021-02-26] MEDS: METOCLOPRAMIDE HCL 10 MG TABLET (FP) PO SCH (21:07)
[2021-02-26] MEDS: CHLORHEXIDINE GLUCONATE 4% CLEANSER FOR DECOLONIZATION TP SCH (21:08)
[2021-02-26] MEDS: BISACODYL 5 MG TABLET.DR (FP) PO ONE (21:09)
[2021-02-26] MEDS ORDERED: DEXTROSE 5%-WATER - 1,000 ML IV SCH (23:52)
[2021-02-27] MEDS: BISACODYL 5 MG TABLET.DR (FP) PO ONE (00:56)
[2021-02-27] MEDS: LIPASE/PROTEASE/AMYLASE 36,000 UNIT CAPSULE PO SCH ×3 (08:37→16:43)
[2021-02-27] MEDS: METOCLOPRAMIDE HCL 10 MG TABLET (FP) PO SCH ×3 (08:39→16:43)
[2021-02-27] MEDS: ALBUTEROL SO4 2.5/IPRATROPIUM 0.5 INH SOL 3 ML VIAL.NEB. NEB SCH ×4 (08:50→20:00)
[2021-02-27] MEDS ORDERED: MUPIROCIN 2% TOPICAL OINTMENT FOR DECOLONIZATION NS SCH (10:00)
[2021-02-27] MEDS: PANTOPRAZOLE SODIUM 40 MG VIAL IVPUSH SCH ×2 (10:04→21:56)
[2021-02-27] MEDS: metoPROLOL SUCCINATE 25 MG TAB.SR.24H (FP) PO SCH (12:17)
[2021-02-27] MEDS: RIFAXIMIN 550 MG TABLET (UD) PO SCH ×3 (12:18→21:55)
[2021-02-27] MEDS: AMINO ACIDS/PROTEIN HYDROLYS 30 ML LIQUID.PKT PO SCH (16:43)
[2021-02-27] MEDS ORDERED: CHLORHEXIDINE GLUCONATE 4% CLEANSER FOR DECOLONIZATION TP SCH (22:00)
[2021-02-28] MEDS: RIFAXIMIN 550 MG TABLET (UD) PO SCH ×3 (06:26→21:04)
[2021-02-28] MEDS: METOCLOPRAMIDE HCL 10 MG TABLET (FP) PO SCH ×3 (06:26→17:28)
[2021-02-28] MEDS: ALBUTEROL SO4 2.5/IPRATROPIUM 0.5 INH SOL 3 ML VIAL.NEB. NEB SCH ×4 (07:19→21:00)
[2021-02-28 08:09] LABS: INR 1.61 (0.83-1.09); PROTHROMBIN TIME (PATIENT) 19.5 SEC (9.7-13.0)
[2021-02-28] MEDS: LIPASE/PROTEASE/AMYLASE 36,000 UNIT CAPSULE PO SCH ×3 (09:11→18:05)
[2021-02-28] MEDS: AMINO ACIDS/PROTEIN HYDROLYS 30 ML LIQUID.PKT PO SCH ×2 (09:11→18:05)
[2021-02-28] MEDS: PANTOPRAZOLE SODIUM 40 MG VIAL IVPUSH SCH ×2 (11:26→21:04)
[2021-02-28] MEDS: metoPROLOL SUCCINATE 25 MG TAB.SR.24H (FP) PO SCH (11:26)
[2021-02-28] MEDS: LOSARTAN POTASSIUM 25 MG TABLET PO SCH (14:44)
[2021-02-28] MEDS ORDERED: PIPERACILLIN/TAZOB 3.375 GM 3.375 GM in DEXTROSE 5%-WATER - 50 ML IVPB SCH (18:45)
[2021-02-28] MEDS ORDERED: PIPERACILLIN/TAZOBACTAM 3.375 GM VIAL IVPB ONE (19:22)
[2021-02-28] MEDS ORDERED: DEXTROSE 5%-WATER - 50 ML IVPB ONE (19:22)
[2021-02-28] MEDS: PIPERACILLIN/TAZOB 3.375 GM 3.375 GM in DEXTROSE 5%-WATER - 50 ML IVPB SCH (19:29)
[2021-03-01] MEDS ORDERED: DEXTROSE 5%-WATER - 50 ML IVPB ONE ×2 (01:19→09:18)
[2021-03-01] MEDS ORDERED: PIPERACILLIN/TAZOBACTAM 3.375 GM VIAL IVPB ONE ×2 (01:19→09:18)
[2021-03-01] MEDS: PIPERACILLIN/TAZOB 3.375 GM 3.375 GM in DEXTROSE 5%-WATER - 50 ML IVPB SCH ×2 (03:00→09:33)
[2021-03-01] MEDS: RIFAXIMIN 550 MG TABLET (UD) PO SCH ×3 (06:25→21:05)
[2021-03-01] MEDS: ERLEADA 60 MG PO SCH (06:25)
[2021-03-01] MEDS: METOCLOPRAMIDE HCL 10 MG TABLET (FP) PO SCH ×2 (06:26→11:57)
[2021-03-01] MEDS: ALBUTEROL SO4 2.5/IPRATROPIUM 0.5 INH SOL 3 ML VIAL.NEB. NEB SCH ×3 (07:35→20:10)
[2021-03-01 08:32] LABS: BASO % 0.8 % (0-2.0); EOS % 4.6 % (0-4.5); HEMATOCRIT 28.7 % (35.4-49); HEMOGLOBIN 9.3 GM/dL (11.7-16.9); LYMPH % 15.9 % (8-40); MCH 33.6 pg (25.7-33.7); MCHC 32.3 g/dl (32.0-35.9); MEAN CELL VOLUME 103.9 fl (80-96); MEAN PLT VOLUME 8.6 fl (7.5-11.1); MONO % 10.1 % (3.8-10.2); NEUT % 68.6 % (42.8-82.8); PLATELET COUNT 191 K/MM3 (134-434); RBC 2.77 M/mm3 (4.00-5.60); RDW 16.1 % (11.9-15.9); WHITE BLOOD COUNT 5.1 K/mm3 (4.0-10.0)
[2021-03-01] MEDS: metoPROLOL SUCCINATE 25 MG TAB.SR.24H (FP) PO SCH ×2 (08:55→09:32)
[2021-03-01] MEDS: LIPASE/PROTEASE/AMYLASE 36,000 UNIT CAPSULE PO SCH ×3 (09:00→17:57)
[2021-03-01] MEDS: AMINO ACIDS/PROTEIN HYDROLYS 30 ML LIQUID.PKT PO SCH ×2 (09:00→17:56)
[2021-03-01 09:04] LABS: ALBUMIN 3.5 g/dl (3.4-5.0); BLOOD UREA NITROGEN 25.8 mg/dL (7-18)
[2021-03-01 09:07] LABS: CREATININE 1.2 mg/dL (0.55-1.3)
[2021-03-01] MEDS ORDERED: METOPROLOL TARTRATE 5 MG/5 ML VIAL ONE (09:08)
[2021-03-01 09:09] LABS: BILIRUBIN,TOTAL 0.6 mg/dL (0.2-1); TOT PROT 6.3 g/dl (6.4-8.2)
[2021-03-01] MEDS: LOSARTAN POTASSIUM 25 MG TABLET PO SCH (09:32)
[2021-03-01] MEDS: PANTOPRAZOLE 40 MG TABLET PO SCH (09:32)
[2021-03-01] MEDS ORDERED: METOPROLOL TARTRATE 5 MG/5 ML VIAL IVPB ONE (09:45)
[2021-03-01] MEDS ORDERED: METOPROLOL TARTRATE 5 MG/5 ML VIAL IVPUSH ONE (10:15)
[2021-03-01] MEDS ORDERED: MEROPENEM 1 GM VIAL (RESTRICTED TO ID) IVPB ONE (13:07)
[2021-03-01] MEDS ORDERED: DEXTROSE 5%-WATER 100 ML IVPB ONE (13:07)
[2021-03-01] MEDS ORDERED: AMIODARONE HCL INJECTION 150 MG in DEXTROSE 5%-WATER - 100 ML IVPB ONE (13:54)
[2021-03-01] MEDS ORDERED: AMIODARONE HCL INJECTION 450 MG in DEXTROSE 5%-WATER - 241 ML IVPB ONE (13:55)
[2021-03-01] MEDS: MEROPENEM 1 GM in DEXTROSE 5%-WATER 100 ML IVPB SCH ×2 (14:37→17:56)
[2021-03-01] MEDS ORDERED: PT OWN MED DRAWER 7, Y5N ONE (15:22)
[2021-03-01] MEDS: CARVEDILOL 3.125 MG TABLET (FP) PO SCH (21:05)
[2021-03-02] MEDS ORDERED: DEXTROSE 5%-WATER 100 ML IVPB ONE ×3 (01:25→18:10)
[2021-03-02] MEDS ORDERED: MEROPENEM 1 GM VIAL (RESTRICTED TO ID) IVPB ONE ×3 (01:25→18:10)
[2021-03-02] MEDS: MEROPENEM 1 GM in DEXTROSE 5%-WATER 100 ML IVPB SCH ×3 (01:42→18:36)
[2021-03-02] MEDS ORDERED: PT OWN MED DRAWER 7, Y5N ONE ×4 (05:28→22:00)
[2021-03-02] MEDS: RIFAXIMIN 550 MG TABLET (UD) PO SCH ×3 (06:00→22:02)
[2021-03-02] MEDS: ERLEADA 60 MG PO SCH (06:25)
[2021-03-02] MEDS: ALBUTEROL SO4 2.5/IPRATROPIUM 0.5 INH SOL 3 ML VIAL.NEB. NEB SCH ×4 (08:45→20:38)
[2021-03-02] MEDS: AMINO ACIDS/PROTEIN HYDROLYS 30 ML LIQUID.PKT PO SCH ×2 (09:57→17:39)
[2021-03-02] MEDS: LIPASE/PROTEASE/AMYLASE 36,000 UNIT CAPSULE PO SCH ×3 (09:57→17:37)
[2021-03-02] MEDS: LOSARTAN POTASSIUM 25 MG TABLET PO SCH (09:58)
[2021-03-02] MEDS: PANTOPRAZOLE 40 MG TABLET PO SCH (09:58)
[2021-03-02] MEDS: CARVEDILOL 3.125 MG TABLET (FP) PO SCH ×2 (09:58→22:02)
[2021-03-02] MEDS: POLYETHYLENE GLYCOL 3350 119 GM BTL PO SCH (22:02)
[2021-03-02] MEDS: DOCUSATE SODIUM 100 MG CAPSULE (FP) PO SCH (22:02)
[2021-03-03] MEDS ORDERED: MEROPENEM 1 GM VIAL (RESTRICTED TO ID) IVPB ONE ×3 (01:03→16:22)
[2021-03-03] MEDS ORDERED: DEXTROSE 5%-WATER 100 ML IVPB ONE ×3 (01:04→16:22)
[2021-03-03] MEDS: MEROPENEM 1 GM in DEXTROSE 5%-WATER 100 ML IVPB SCH ×3 (01:18→17:06)
[2021-03-03] MEDS ORDERED: PT OWN MED DRAWER 7, Y5N ONE ×4 (05:58→21:47)
[2021-03-03] MEDS: RIFAXIMIN 550 MG TABLET (UD) PO SCH ×3 (05:58→21:56)
[2021-03-03] MEDS: ERLEADA 60 MG PO SCH (06:04)
[2021-03-03] MEDS: ALBUTEROL SO4 2.5/IPRATROPIUM 0.5 INH SOL 3 ML VIAL.NEB. NEB SCH (07:30)
[2021-03-03] MEDS: AMINO ACIDS/PROTEIN HYDROLYS 30 ML LIQUID.PKT PO SCH ×2 (08:51→17:06)
[2021-03-03] MEDS: LIPASE/PROTEASE/AMYLASE 36,000 UNIT CAPSULE PO SCH ×3 (08:52→17:06)
[2021-03-03] MEDS: LOSARTAN POTASSIUM 25 MG TABLET PO SCH (09:20)
[2021-03-03] MEDS: CARVEDILOL 3.125 MG TABLET (FP) PO SCH ×2 (09:20→21:56)
[2021-03-03] MEDS: PANTOPRAZOLE 40 MG TABLET PO SCH (09:20)
[2021-03-03] MEDS: POLYETHYLENE GLYCOL 3350 119 GM BTL PO SCH (09:22)
[2021-03-03 10:15] LABS: BASO % 0.8 % (0-2.0); EOS % 6.6 % (0-4.5); HEMATOCRIT 27.9 % (35.4-49); LYMPH % 10.8 % (8-40); MCH 33.6 pg (25.7-33.7); MCHC 32.4 g/dl (32.0-35.9); MEAN CELL VOLUME 103.8 fl (80-96); MEAN PLT VOLUME 8.6 fl (7.5-11.1); MONO % 8.8 % (3.8-10.2); PLATELET COUNT 209 K/MM3 (134-434); RBC 2.69 M/mm3 (4.00-5.60); RDW 15.9 % (11.9-15.9); WHITE BLOOD COUNT 5.7 K/mm3 (4.0-10.0)
[2021-03-03 10:36] LABS: ALBUMIN 3.6 g/dl (3.4-5.0); BLOOD UREA NITROGEN 31.2 mg/dL (7-18)
[2021-03-03 10:39] LABS: CREATININE 1.2 mg/dL (0.55-1.3)
[2021-03-03 10:41] LABS: BILIRUBIN,TOTAL 0.8 mg/dL (0.2-1); TOT PROT 6.4 g/dl (6.4-8.2)
[2021-03-03] MEDS ORDERED: BISACODYL 5 MG TABLET.DR (FP) PO ONE (11:37)
[2021-03-03] MEDS ORDERED: HEPARIN NA (PORCINE) 5,000 UNITS/ML 1ML VIAL IVPUSH PRN (14:04)
[2021-03-03] MEDS ORDERED: BISACODYL 10 MG SUPP.RECT PR ONE (14:20)
[2021-03-03 16:14] LABS: INR 1.28 (0.83-1.09); PROTHROMBIN TIME (PATIENT) 15.4 SEC (9.7-13.0)
[2021-03-03] MEDS: HEPARIN SOD,PORK IN 0.45% NACL 25,000 UNIT/500 ML INFUS.BAG IVPB SCH (17:41)
[2021-03-03] MEDS: SODIUM PHOSPHATE/NA BIPHOS 133 ML ENEMA RC SCH ×2 (17:45→21:56)
[2021-03-03] MEDS: MAGNESIUM CITRATE 300 ML BOTTLE PO SCH ×2 (17:45→21:56)
[2021-03-03] MEDS: ACETAMINOPHEN 325 MG TABLET (FP) PO PRN (17:47)
[2021-03-03] MEDS ORDERED: IRON SUCROSE INJECTION 100 MG in SODIUM CHLORIDE 95 ML IVPB ONE (20:19)
[2021-03-03] MEDS: DOCUSATE SODIUM 100 MG CAPSULE (FP) PO SCH (21:56)
[2021-03-04] MEDS ORDERED: MEROPENEM 1 GM VIAL (RESTRICTED TO ID) IVPB ONE ×3 (01:00→17:42)
[2021-03-04] MEDS ORDERED: DEXTROSE 5%-WATER 100 ML IVPB ONE ×3 (01:01→17:42)
[2021-03-04] MEDS: HEPARIN NA (PORCINE) 5,000 UNITS/ML 1ML VIAL IVPUSH PRN (01:44)
[2021-03-04] MEDS: MEROPENEM 1 GM in DEXTROSE 5%-WATER 100 ML IVPB SCH ×3 (01:44→18:30)
[2021-03-04] MEDS: RIFAXIMIN 550 MG TABLET (UD) PO SCH ×3 (06:55→22:22)
[2021-03-04] MEDS: ERLEADA 60 MG PO SCH (06:56)
[2021-03-04] MEDS ORDERED: PT OWN MED DRAWER 7, Y5N ONE ×3 (08:24→22:10)
[2021-03-04] MEDS: AMINO ACIDS/PROTEIN HYDROLYS 30 ML LIQUID.PKT PO SCH ×2 (08:33→17:27)
[2021-03-04] MEDS: PANTOPRAZOLE 40 MG TABLET PO SCH (10:54)
[2021-03-04] MEDS: CARVEDILOL 3.125 MG TABLET (FP) PO SCH ×2 (10:54→22:22)
[2021-03-04] MEDS: LOSARTAN POTASSIUM 25 MG TABLET PO SCH (10:54)
[2021-03-04] MEDS: LIPASE/PROTEASE/AMYLASE 36,000 UNIT CAPSULE PO SCH ×3 (10:57→17:27)
[2021-03-04] MEDS: POLYETHYLENE GLYCOL 3350 119 GM BTL PO SCH (10:59)
[2021-03-04 15:47] VITALS: BMI 31.6
[2021-03-04] MEDS ORDERED: WARFARIN NA 10 MG TABLET PO ONE (18:00)
[2021-03-04] MEDS: DOCUSATE SODIUM 100 MG CAPSULE (FP) PO SCH (22:14)
[2021-03-04] MEDS: HEPARIN SOD,PORK IN 0.45% NACL 25,000 UNIT/500 ML INFUS.BAG IVPB SCH (22:21)
[2021-03-04] MEDS ORDERED: IRON SUCROSE INJECTION 100 MG in SODIUM CHLORIDE 95 ML IVPB ONE (23:00)
[2021-03-04] MEDS: ALBUTEROL SO4 2.5/IPRATROPIUM 0.5 INH SOL 3 ML VIAL.NEB. NEB PRN (23:00)
[2021-03-05] MEDS ORDERED: MEROPENEM 1 GM VIAL (RESTRICTED TO ID) IVPB ONE ×3 (01:19→17:28)
[2021-03-05] MEDS ORDERED: DEXTROSE 5%-WATER 100 ML IVPB ONE ×3 (01:20→17:28)
[2021-03-05] MEDS: MEROPENEM 1 GM in DEXTROSE 5%-WATER 100 ML IVPB SCH ×3 (01:23→17:32)
[2021-03-05] MEDS: ALBUTEROL SO4 2.5/IPRATROPIUM 0.5 INH SOL 3 ML VIAL.NEB. NEB PRN ×3 (05:09→21:17)
[2021-03-05] MEDS: RIFAXIMIN 550 MG TABLET (UD) PO SCH ×3 (06:06→22:05)
[2021-03-05] MEDS ORDERED: PT OWN MED DRAWER 7, Y5N ONE ×6 (06:07→21:49)
[2021-03-05] MEDS: ERLEADA 60 MG PO SCH (06:07)
[2021-03-05 06:44] LABS: ACTIVATED PTT 40.5 SECONDS (25.2-36.5)
[2021-03-05 06:50] LABS: EOS % 6.7 % (0-4.5); HEMOGLOBIN 8.4 GM/dL (11.7-16.9); LYMPH % 18.2 % (8-40); MCH 33.9 pg (25.7-33.7); MCHC 32.4 g/dl (32.0-35.9); MEAN CELL VOLUME 104.4 fl (80-96); MEAN PLT VOLUME 8.5 fl (7.5-11.1); MONO % 11.5 % (3.8-10.2); NEUT % 62.6 % (42.8-82.8); PLATELET COUNT 190 K/MM3 (134-434); RBC 2.49 M/mm3 (4.00-5.60); RDW 15.5 % (11.9-15.9); WHITE BLOOD COUNT 4.3 K/mm3 (4.0-10.0)
[2021-03-05 06:52] LABS: CALCIUM 9.8 mg/dL (8.5-10.1)
[2021-03-05 06:54] LABS: ALBUMIN 3.2 g/dl (3.4-5.0); BLOOD UREA NITROGEN 29.2 mg/dL (7-18)
[2021-03-05 06:58] LABS: BILIRUBIN,TOTAL 0.4 mg/dL (0.2-1)
[2021-03-05 08:25] LABS: INR 1.27 (0.83-1.09); PROTHROMBIN TIME (PATIENT) 15.3 SEC (9.7-13.0)
[2021-03-05] MEDS: AMINO ACIDS/PROTEIN HYDROLYS 30 ML LIQUID.PKT PO SCH ×2 (08:31→17:32)
[2021-03-05] MEDS: LIPASE/PROTEASE/AMYLASE 36,000 UNIT CAPSULE PO SCH ×3 (08:31→17:32)
[2021-03-05] MEDS: PANTOPRAZOLE 40 MG TABLET PO SCH (09:48)
[2021-03-05] MEDS: MULTIVITAMINS (DAILY MVI) TABLET (FP) PO SCH (09:48)
[2021-03-05] MEDS: CARVEDILOL 3.125 MG TABLET (FP) PO SCH ×2 (09:48→22:05)
[2021-03-05] MEDS: LOSARTAN POTASSIUM 25 MG TABLET PO SCH (09:48)
[2021-03-05] MEDS: POLYETHYLENE GLYCOL 3350 119 GM BTL PO SCH (09:49)
[2021-03-05] MEDS: HEPARIN SOD,PORK IN 0.45% NACL 25,000 UNIT/500 ML INFUS.BAG IVPB SCH (16:38)
[2021-03-05] MEDS ORDERED: WARFARIN NA 10 MG TABLET PO ONE (18:00)
[2021-03-05] MEDS: HEPARIN NA (PORCINE) 5,000 UNITS/ML 1ML VIAL IVPUSH PRN (19:33)
[2021-03-05] MEDS: DOCUSATE SODIUM 100 MG CAPSULE (FP) PO SCH (22:04)
[2021-03-06] MEDS ORDERED: DEXTROSE 5%-WATER 100 ML IVPB ONE ×3 (00:43→16:15)
[2021-03-06] MEDS ORDERED: MEROPENEM 1 GM VIAL (RESTRICTED TO ID) IVPB ONE ×3 (00:43→16:14)
[2021-03-06] MEDS: MEROPENEM 1 GM in DEXTROSE 5%-WATER 100 ML IVPB SCH ×3 (03:25→17:06)
[2021-03-06] MEDS: ALBUTEROL SO4 2.5/IPRATROPIUM 0.5 INH SOL 3 ML VIAL.NEB. NEB PRN ×3 (05:43→21:15)
[2021-03-06] MEDS ORDERED: PT OWN MED DRAWER 7, Y5N ONE ×3 (05:51→21:55)
[2021-03-06] MEDS: RIFAXIMIN 550 MG TABLET (UD) PO SCH ×3 (06:11→21:35)
[2021-03-06] MEDS: ERLEADA 60 MG PO SCH (06:11)
[2021-03-06 07:21] LABS: BASO % 0.7 % (0-2.0); EOS % 6.7 % (0-4.5); HEMATOCRIT 26.4 % (35.4-49); HEMOGLOBIN 8.3 GM/dL (11.7-16.9); LYMPH % 16.7 % (8-40); MCH 33.3 pg (25.7-33.7); MCHC 31.5 g/dl (32.0-35.9); MEAN CELL VOLUME 105.9 fl (80-96); MEAN PLT VOLUME 8.6 fl (7.5-11.1); MONO % 10.6 % (3.8-10.2); NEUT % 65.3 % (42.8-82.8); PLATELET COUNT 208 K/MM3 (134-434); RBC 2.49 M/mm3 (4.00-5.60); WHITE BLOOD COUNT 4.2 K/mm3 (4.0-10.0)
[2021-03-06 07:26] LABS: ACTIVATED PTT 89.4 SECONDS (25.2-36.5)
[2021-03-06 07:56] LABS: ALBUMIN 3.3 g/dl (3.4-5.0); BILIRUBIN,TOTAL 0.4 mg/dL (0.2-1); BLOOD UREA NITROGEN 31.3 mg/dL (7-18)
[2021-03-06] MEDS: LIPASE/PROTEASE/AMYLASE 36,000 UNIT CAPSULE PO SCH ×3 (08:15→17:05)
[2021-03-06] MEDS: AMINO ACIDS/PROTEIN HYDROLYS 30 ML LIQUID.PKT PO SCH ×2 (08:16→17:05)
[2021-03-06 08:53] LABS: INR 1.24 (0.83-1.09); PROTHROMBIN TIME (PATIENT) 15.2 SEC (9.7-13.0)
[2021-03-06] MEDS: LOSARTAN POTASSIUM 25 MG TABLET PO SCH (10:16)
[2021-03-06] MEDS: MULTIVITAMINS (DAILY MVI) TABLET (FP) PO SCH (10:16)
[2021-03-06] MEDS: CARVEDILOL 3.125 MG TABLET (FP) PO SCH ×2 (10:16→21:35)
[2021-03-06] MEDS: PANTOPRAZOLE 40 MG TABLET PO SCH (10:16)
[2021-03-06] MEDS: POLYETHYLENE GLYCOL 3350 119 GM BTL PO SCH (10:22)
[2021-03-06 10:35] LABS: ANISOCYTOSIS 1+; MACROCYTOSIS 0; PLATELET ESTIMATE NORMAL
[2021-03-06] MEDS: HEPARIN SOD,PORK IN 0.45% NACL 25,000 UNIT/500 ML INFUS.BAG IVPB SCH (14:52)
[2021-03-06] MEDS ORDERED: WARFARIN NA 10 MG TABLET PO ONE (18:00)
[2021-03-06] MEDS: DOCUSATE SODIUM 100 MG CAPSULE (FP) PO SCH (21:38)
[2021-03-06] MEDS ORDERED: IRON SUCROSE INJECTION 100 MG in SODIUM CHLORIDE 95 ML IVPB ONE (23:12)
[2021-03-07] MEDS ORDERED: IRON SUCROSE INJECTION 100 MG in SODIUM CHLORIDE 95 ML IVPB ONE (00:30)
[2021-03-07] MEDS ORDERED: MEROPENEM 1 GM VIAL (RESTRICTED TO ID) IVPB ONE ×3 (01:59→16:38)
[2021-03-07] MEDS ORDERED: DEXTROSE 5%-WATER 100 ML IVPB ONE ×3 (02:00→16:38)
[2021-03-07] MEDS: MEROPENEM 1 GM in DEXTROSE 5%-WATER 100 ML IVPB SCH ×3 (02:06→17:15)
[2021-03-07] MEDS: ALBUTEROL SO4 2.5/IPRATROPIUM 0.5 INH SOL 3 ML VIAL.NEB. NEB PRN ×4 (06:17→21:12)
[2021-03-07] MEDS ORDERED: PT OWN MED DRAWER 7, Y5N ONE ×7 (06:28→21:12)
[2021-03-07] MEDS: RIFAXIMIN 550 MG TABLET (UD) PO SCH ×3 (06:32→21:16)
[2021-03-07] MEDS: ERLEADA 60 MG PO SCH (06:36)
[2021-03-07 06:49] LABS: HEMATOCRIT 26.9 % (35.4-49); HEMOGLOBIN 8.5 GM/dL (11.7-16.9); MCH 33.1 pg (25.7-33.7); MCHC 31.8 g/dl (32.0-35.9); MEAN CELL VOLUME 104.3 fl (80-96); MEAN PLT VOLUME 8.7 fl (7.5-11.1); PLATELET COUNT 214 K/MM3 (134-434); RBC 2.58 M/mm3 (4.00-5.60); RDW 16.3 % (11.9-15.9); WHITE BLOOD COUNT 4.4 K/mm3 (4.0-10.0)
[2021-03-07] MEDS: AMINO ACIDS/PROTEIN HYDROLYS 30 ML LIQUID.PKT PO SCH ×2 (08:26→17:15)
[2021-03-07] MEDS: LIPASE/PROTEASE/AMYLASE 36,000 UNIT CAPSULE PO SCH ×3 (08:26→17:15)
[2021-03-07 08:35] LABS: INR 1.27 (0.83-1.09); PROTHROMBIN TIME (PATIENT) 15.3 SEC (9.7-13.0)
[2021-03-07] MEDS: PANTOPRAZOLE 40 MG TABLET PO SCH (09:22)
[2021-03-07] MEDS: CARVEDILOL 3.125 MG TABLET (FP) PO SCH ×2 (09:22→21:16)
[2021-03-07] MEDS: MULTIVITAMINS (DAILY MVI) TABLET (FP) PO SCH (09:22)
[2021-03-07] MEDS: LOSARTAN POTASSIUM 25 MG TABLET PO SCH (09:22)
[2021-03-07] MEDS: POLYETHYLENE GLYCOL 3350 119 GM BTL PO SCH (09:27)
[2021-03-07] MEDS: HEPARIN SOD,PORK IN 0.45% NACL 25,000 UNIT/500 ML INFUS.BAG IVPB SCH (17:15)
[2021-03-07] MEDS ORDERED: WARFARIN NA 7.5 MG TABLET PO ONE (18:00)
[2021-03-07] MEDS: SENNOSIDES 8.6MG TABLET (FP) PO PRN (21:16)
[2021-03-08] MEDS ORDERED: PT OWN MED DRAWER 7, Y5N ONE ×10 (00:44→21:25)
[2021-03-08] MEDS ORDERED: MEROPENEM 1 GM VIAL (RESTRICTED TO ID) IVPB ONE ×3 (00:45→16:20)
[2021-03-08] MEDS ORDERED: DEXTROSE 5%-WATER 100 ML IVPB ONE ×3 (00:45→16:21)
[2021-03-08] MEDS: MEROPENEM 1 GM in DEXTROSE 5%-WATER 100 ML IVPB SCH ×3 (01:22→17:00)
[2021-03-08] MEDS: ALBUTEROL SO4 2.5/IPRATROPIUM 0.5 INH SOL 3 ML VIAL.NEB. NEB PRN ×4 (03:30→20:18)
[2021-03-08] MEDS: RIFAXIMIN 550 MG TABLET (UD) PO SCH ×3 (05:49→21:27)
[2021-03-08] MEDS: ERLEADA 60 MG PO SCH (06:24)
[2021-03-08 07:53] LABS: HEMATOCRIT 25.7 % (35.4-49); HEMOGLOBIN 8.3 GM/dL (11.7-16.9); MCHC 32.2 g/dl (32.0-35.9); MEAN CELL VOLUME 102.8 fl (80-96); MEAN PLT VOLUME 8.7 fl (7.5-11.1); PLATELET COUNT 211 K/MM3 (134-434); WHITE BLOOD COUNT 4.5 K/mm3 (4.0-10.0)
[2021-03-08 08:03] LABS: INR 1.46 (0.83-1.09); PROTHROMBIN TIME (PATIENT) 17.8 SEC (9.7-13.0)
[2021-03-08 08:05] LABS: ACTIVATED PTT 63.7 SECONDS (25.2-36.5)
[2021-03-08] MEDS: LIPASE/PROTEASE/AMYLASE 36,000 UNIT CAPSULE PO SCH ×3 (08:49→16:40)
[2021-03-08] MEDS: AMINO ACIDS/PROTEIN HYDROLYS 30 ML LIQUID.PKT PO SCH ×2 (08:49→16:40)
[2021-03-08] MEDS: PANTOPRAZOLE 40 MG TABLET PO SCH (09:03)
[2021-03-08] MEDS: CARVEDILOL 3.125 MG TABLET (FP) PO SCH ×2 (09:04→21:27)
[2021-03-08] MEDS: MULTIVITAMINS (DAILY MVI) TABLET (FP) PO SCH (09:04)
[2021-03-08] MEDS: LOSARTAN POTASSIUM 25 MG TABLET PO SCH (09:04)
[2021-03-08] MEDS: POLYETHYLENE GLYCOL 3350 119 GM BTL PO SCH ×2 (13:33→21:28)
[2021-03-08] MEDS: HEPARIN SOD,PORK IN 0.45% NACL 25,000 UNIT/500 ML INFUS.BAG IVPB SCH (13:44)
[2021-03-08] MEDS: APIXABAN 5 MG TABLET PO SCH (21:27)
[2021-03-08] MEDS: SENNOSIDES 8.6MG TABLET (FP) PO PRN (21:27)
[2021-03-09] MEDS ORDERED: DEXTROSE 5%-WATER 100 ML IVPB ONE ×3 (01:49→16:53)
[2021-03-09] MEDS ORDERED: MEROPENEM 1 GM VIAL (RESTRICTED TO ID) IVPB ONE ×3 (01:49→16:52)
[2021-03-09] MEDS: ALBUTEROL SO4 2.5/IPRATROPIUM 0.5 INH SOL 3 ML VIAL.NEB. NEB PRN ×5 (02:17→20:12)
[2021-03-09] MEDS: MEROPENEM 1 GM in DEXTROSE 5%-WATER 100 ML IVPB SCH ×3 (02:17→17:12)
[2021-03-09] MEDS ORDERED: PT OWN MED DRAWER 7, Y5N ONE ×6 (05:59→21:02)
[2021-03-09] MEDS: POLYETHYLENE GLYCOL 3350 119 GM BTL PO SCH ×3 (06:11→21:20)
[2021-03-09] MEDS: RIFAXIMIN 550 MG TABLET (UD) PO SCH ×3 (06:11→21:20)
[2021-03-09] MEDS: ERLEADA 60 MG PO SCH (06:11)
[2021-03-09 07:07] LABS: HEMATOCRIT 26.1 % (35.4-49); HEMOGLOBIN 8.4 GM/dL (11.7-16.9); MCH 33.4 pg (25.7-33.7); MCHC 32.2 g/dl (32.0-35.9); MEAN CELL VOLUME 103.7 fl (80-96); MEAN PLT VOLUME 8.3 fl (7.5-11.1); PLATELET COUNT 206 K/MM3 (134-434); RBC 2.51 M/mm3 (4.00-5.60); RDW 16.1 % (11.9-15.9); WHITE BLOOD COUNT 4.6 K/mm3 (4.0-10.0)
[2021-03-09] MEDS: AMINO ACIDS/PROTEIN HYDROLYS 30 ML LIQUID.PKT PO SCH ×2 (08:27→17:13)
[2021-03-09] MEDS: LIPASE/PROTEASE/AMYLASE 36,000 UNIT CAPSULE PO SCH ×3 (08:27→17:13)
[2021-03-09] MEDS: PANTOPRAZOLE 40 MG TABLET PO SCH (09:01)
[2021-03-09] MEDS: CARVEDILOL 3.125 MG TABLET (FP) PO SCH ×2 (09:02→21:20)
[2021-03-09] MEDS: MULTIVITAMINS (DAILY MVI) TABLET (FP) PO SCH (09:02)
[2021-03-09] MEDS: APIXABAN 5 MG TABLET PO SCH ×2 (09:02→21:20)
[2021-03-09] MEDS: LOSARTAN POTASSIUM 25 MG TABLET PO SCH (09:02)
[2021-03-09] MEDS: DOCUSATE SODIUM 100 MG CAPSULE (FP) PO SCH (21:19)
[2021-03-09] MEDS: NYSTATIN 100,000 UNIT/GM TOPICAL CREAM 15 GM TUBE TP SCH (21:20)
[2021-03-10] MEDS ORDERED: DEXTROSE 5%-WATER 100 ML IVPB ONE ×3 (01:09→17:07)
[2021-03-10] MEDS ORDERED: MEROPENEM 1 GM VIAL (RESTRICTED TO ID) IVPB ONE ×3 (01:09→17:07)
[2021-03-10] MEDS: MEROPENEM 1 GM in DEXTROSE 5%-WATER 100 ML IVPB SCH ×3 (01:12→17:13)
[2021-03-10] MEDS: ALBUTEROL SO4 2.5/IPRATROPIUM 0.5 INH SOL 3 ML VIAL.NEB. NEB PRN ×4 (01:29→19:25)
[2021-03-10] MEDS ORDERED: PT OWN MED DRAWER 7, Y5N ONE ×5 (06:02→20:57)
[2021-03-10] MEDS: RIFAXIMIN 550 MG TABLET (UD) PO SCH ×3 (06:21→21:23)
[2021-03-10] MEDS: ERLEADA 60 MG PO SCH (06:22)
[2021-03-10] MEDS: POLYETHYLENE GLYCOL 3350 119 GM BTL PO SCH ×3 (06:23→21:23)
[2021-03-10] MEDS: LIPASE/PROTEASE/AMYLASE 36,000 UNIT CAPSULE PO SCH ×3 (08:26→17:13)
[2021-03-10] MEDS: AMINO ACIDS/PROTEIN HYDROLYS 30 ML LIQUID.PKT PO SCH ×2 (08:26→17:13)
[2021-03-10 09:21] LABS: CALCIUM 9.6 mg/dL (8.5-10.1)
[2021-03-10 09:22] LABS: ALBUMIN 3.5 g/dl (3.4-5.0); BLOOD UREA NITROGEN 36.2 mg/dL (7-18)
[2021-03-10 09:25] LABS: CREATININE 1.1 mg/dL (0.55-1.3)
[2021-03-10 09:26] LABS: BILIRUBIN,TOTAL 0.5 mg/dL (0.2-1)
[2021-03-10 09:27] LABS: TOT PROT 6.3 g/dl (6.4-8.2)
[2021-03-10 09:40] LABS: BASO % 0.8 % (0-2.0); EOS % 6.4 % (0-4.5); HEMATOCRIT 27.1 % (35.4-49); HEMOGLOBIN 8.9 GM/dL (11.7-16.9); LYMPH % 18.1 % (8-40); MCH 33.6 pg (25.7-33.7); MCHC 32.8 g/dl (32.0-35.9); MEAN CELL VOLUME 102.5 fl (80-96); MEAN PLT VOLUME 8.5 fl (7.5-11.1); MONO % 8.3 % (3.8-10.2); NEUT % 66.4 % (42.8-82.8); PLATELET COUNT 225 K/MM3 (134-434); RBC 2.64 M/mm3 (4.00-5.60); RDW 16.1 % (11.9-15.9); WHITE BLOOD COUNT 6.1 K/mm3 (4.0-10.0)
[2021-03-10] MEDS: MULTIVITAMINS (DAILY MVI) TABLET (FP) PO SCH (10:00)
[2021-03-10] MEDS: APIXABAN 5 MG TABLET PO SCH ×2 (10:00→21:23)
[2021-03-10] MEDS: CARVEDILOL 3.125 MG TABLET (FP) PO SCH ×2 (10:00→21:23)
[2021-03-10] MEDS: PANTOPRAZOLE 40 MG TABLET PO SCH (10:00)
[2021-03-10] MEDS: LOSARTAN POTASSIUM 25 MG TABLET PO SCH (10:01)
[2021-03-10] MEDS: NYSTATIN 100,000 UNIT/GM TOPICAL CREAM 15 GM TUBE TP SCH ×2 (10:02→21:23)
[2021-03-10] MEDS: DOCUSATE SODIUM 100 MG CAPSULE (FP) PO SCH (21:23)
[2021-03-10] MEDS: ACETAMINOPHEN 325 MG TABLET (FP) PO PRN (21:26)
[2021-03-11] MEDS ORDERED: DEXTROSE 5%-WATER 100 ML IVPB ONE ×3 (00:48→17:22)
[2021-03-11] MEDS ORDERED: MEROPENEM 1 GM VIAL (RESTRICTED TO ID) IVPB ONE ×3 (00:48→17:22)
[2021-03-11] MEDS: MEROPENEM 1 GM in DEXTROSE 5%-WATER 100 ML IVPB SCH ×3 (01:06→17:25)
[2021-03-11] MEDS ORDERED: MAG HYDROX/AL HYDROX/SIMETH 30 ML UNIT-DOSE CUP PO ONE (01:30)
[2021-03-11] MEDS: ALBUTEROL SO4 2.5/IPRATROPIUM 0.5 INH SOL 3 ML VIAL.NEB. NEB PRN ×4 (02:35→23:58)
[2021-03-11] MEDS ORDERED: PT OWN MED DRAWER 7, Y5N ONE ×7 (06:07→22:42)
[2021-03-11] MEDS: RIFAXIMIN 550 MG TABLET (UD) PO SCH ×3 (06:35→22:42)
[2021-03-11] MEDS: POLYETHYLENE GLYCOL 3350 119 GM BTL PO SCH ×3 (06:35→22:40)
[2021-03-11] MEDS: LIPASE/PROTEASE/AMYLASE 36,000 UNIT CAPSULE PO SCH ×3 (10:08→17:24)
[2021-03-11] MEDS: LOSARTAN POTASSIUM 25 MG TABLET PO SCH (10:09)
[2021-03-11] MEDS: PANTOPRAZOLE 40 MG TABLET PO SCH (10:09)
[2021-03-11] MEDS: CARVEDILOL 3.125 MG TABLET (FP) PO SCH ×2 (10:09→22:39)
[2021-03-11] MEDS: APIXABAN 5 MG TABLET PO SCH ×2 (10:09→22:39)
[2021-03-11] MEDS: MULTIVITAMINS (DAILY MVI) TABLET (FP) PO SCH (10:09)
[2021-03-11] MEDS: AMINO ACIDS/PROTEIN HYDROLYS 30 ML LIQUID.PKT PO SCH ×2 (10:10→17:24)
[2021-03-11] MEDS: ERLEADA 60 MG PO SCH (10:11)
[2021-03-11] MEDS: NYSTATIN 100,000 UNIT/GM TOPICAL CREAM 15 GM TUBE TP SCH ×2 (10:12→22:40)
[2021-03-11] MEDS ORDERED: MAG HYDROX/AL HYDROX/SIMETH 30 ML UNIT-DOSE CUP PO PRN (15:46)
[2021-03-11] MEDS: DOCUSATE SODIUM 100 MG CAPSULE (FP) PO SCH (22:39)
[2021-03-12] MEDS ORDERED: DEXTROSE 5%-WATER 100 ML IVPB ONE ×3 (01:23→16:31)
[2021-03-12] MEDS ORDERED: MEROPENEM 1 GM VIAL (RESTRICTED TO ID) IVPB ONE ×3 (01:23→16:31)
[2021-03-12] MEDS: MEROPENEM 1 GM in DEXTROSE 5%-WATER 100 ML IVPB SCH ×3 (01:27→18:18)
[2021-03-12] MEDS: ALBUTEROL SO4 2.5/IPRATROPIUM 0.5 INH SOL 3 ML VIAL.NEB. NEB PRN ×3 (06:30→20:18)
[2021-03-12] MEDS: POLYETHYLENE GLYCOL 3350 119 GM BTL PO SCH ×3 (06:31→22:08)
[2021-03-12] MEDS: ERLEADA 60 MG PO SCH (07:39)
[2021-03-12] MEDS ORDERED: PT OWN MED DRAWER 7, Y5N ONE ×4 (09:19→16:31)
[2021-03-12] MEDS: LOSARTAN POTASSIUM 25 MG TABLET PO SCH (09:35)
[2021-03-12] MEDS: CARVEDILOL 3.125 MG TABLET (FP) PO SCH ×2 (09:35→22:07)
[2021-03-12] MEDS: LIPASE/PROTEASE/AMYLASE 36,000 UNIT CAPSULE PO SCH ×3 (09:35→17:19)
[2021-03-12] MEDS: PANTOPRAZOLE 40 MG TABLET PO SCH (09:35)
[2021-03-12] MEDS: AMINO ACIDS/PROTEIN HYDROLYS 30 ML LIQUID.PKT PO SCH ×2 (09:35→17:19)
[2021-03-12] MEDS: APIXABAN 5 MG TABLET PO SCH (09:35)
[2021-03-12] MEDS: NYSTATIN 100,000 UNIT/GM TOPICAL CREAM 15 GM TUBE TP SCH ×2 (09:50→22:08)
[2021-03-12] MEDS: MULTIVITAMINS (DAILY MVI) TABLET (FP) PO SCH (09:50)
[2021-03-12] MEDS: DOCUSATE SODIUM 100 MG CAPSULE (FP) PO SCH (22:08)
[2021-03-13] MEDS ORDERED: MEROPENEM 1 GM VIAL (RESTRICTED TO ID) IVPB ONE ×3 (01:38→18:06)
[2021-03-13] MEDS ORDERED: DEXTROSE 5%-WATER 100 ML IVPB ONE ×3 (01:39→18:06)
[2021-03-13] MEDS: MEROPENEM 1 GM in DEXTROSE 5%-WATER 100 ML IVPB SCH ×3 (01:42→18:11)
[2021-03-13] MEDS ORDERED: PT OWN MED DRAWER 7, Y5N ONE ×5 (06:01→18:07)
[2021-03-13] MEDS: POLYETHYLENE GLYCOL 3350 119 GM BTL PO SCH ×3 (06:02→21:24)
[2021-03-13] MEDS: ERLEADA 60 MG PO SCH (06:03)
[2021-03-13 06:52] LABS: BASO % 1.1 % (0-2.0); EOS % 8.5 % (0-4.5); HEMATOCRIT 26.7 % (35.4-49); HEMOGLOBIN 8.4 GM/dL (11.7-16.9); LYMPH % 16.6 % (8-40); MCHC 31.6 g/dl (32.0-35.9); MEAN CELL VOLUME 104.6 fl (80-96); MEAN PLT VOLUME 8.7 fl (7.5-11.1); MONO % 9.7 % (3.8-10.2); NEUT % 64.1 % (42.8-82.8); PLATELET COUNT 223 K/MM3 (134-434); RBC 2.55 M/mm3 (4.00-5.60); RDW 15.9 % (11.9-15.9); WHITE BLOOD COUNT 4.6 K/mm3 (4.0-10.0)
[2021-03-13 07:09] LABS: ALBUMIN 3.5 g/dl (3.4-5.0); BLOOD UREA NITROGEN 38.2 mg/dL (7-18); CALCIUM 9.5 mg/dL (8.5-10.1)
[2021-03-13 07:13] LABS: BILIRUBIN,TOTAL 0.3 mg/dL (0.2-1)
[2021-03-13 07:14] LABS: TOT PROT 6.1 g/dl (6.4-8.2)
[2021-03-13] MEDS: ALBUTEROL SO4 2.5/IPRATROPIUM 0.5 INH SOL 3 ML VIAL.NEB. NEB PRN ×4 (07:40→20:13)
[2021-03-13] MEDS: AMINO ACIDS/PROTEIN HYDROLYS 30 ML LIQUID.PKT PO SCH ×2 (08:48→18:11)
[2021-03-13] MEDS: LIPASE/PROTEASE/AMYLASE 36,000 UNIT CAPSULE PO SCH ×3 (08:55→18:12)
[2021-03-13] MEDS: CARVEDILOL 3.125 MG TABLET (FP) PO SCH ×2 (09:09→21:24)
[2021-03-13] MEDS: MULTIVITAMINS (DAILY MVI) TABLET (FP) PO SCH (09:09)
[2021-03-13] MEDS: PANTOPRAZOLE 40 MG TABLET PO SCH (09:09)
[2021-03-13] MEDS: LOSARTAN POTASSIUM 25 MG TABLET PO SCH (09:09)
[2021-03-13] MEDS: NYSTATIN 100,000 UNIT/GM TOPICAL CREAM 15 GM TUBE TP SCH ×2 (12:49→21:24)
[2021-03-13] MEDS: DOCUSATE SODIUM 100 MG CAPSULE (FP) PO SCH (21:24)
[2021-03-14] MEDS: ALBUTEROL SO4 2.5/IPRATROPIUM 0.5 INH SOL 3 ML VIAL.NEB. NEB PRN ×5 (00:41→20:48)
[2021-03-14] MEDS ORDERED: DEXTROSE 5%-WATER 100 ML IVPB ONE ×3 (01:22→17:21)
[2021-03-14] MEDS ORDERED: MEROPENEM 1 GM VIAL (RESTRICTED TO ID) IVPB ONE ×3 (01:22→17:21)
[2021-03-14] MEDS: MEROPENEM 1 GM in DEXTROSE 5%-WATER 100 ML IVPB SCH ×3 (01:41→17:29)
[2021-03-14] MEDS: ACETAMINOPHEN 325 MG TABLET (FP) PO PRN (03:41)
[2021-03-14] MEDS: ERLEADA 60 MG PO SCH (06:03)
[2021-03-14] MEDS: POLYETHYLENE GLYCOL 3350 119 GM BTL PO SCH ×3 (06:03→21:35)
[2021-03-14] MEDS: PANTOPRAZOLE 40 MG TABLET PO SCH (06:03)
[2021-03-14] MEDS ORDERED: PT OWN MED DRAWER 7, Y5N ONE ×5 (08:08→17:22)
[2021-03-14] MEDS: AMINO ACIDS/PROTEIN HYDROLYS 30 ML LIQUID.PKT PO SCH ×2 (08:13→17:29)
[2021-03-14] MEDS: LOSARTAN POTASSIUM 25 MG TABLET PO SCH (09:30)
[2021-03-14] MEDS: CARVEDILOL 3.125 MG TABLET (FP) PO SCH ×2 (09:30→21:33)
[2021-03-14] MEDS: MULTIVITAMINS (DAILY MVI) TABLET (FP) PO SCH (09:30)
[2021-03-14] MEDS: LIPASE/PROTEASE/AMYLASE 36,000 UNIT CAPSULE PO SCH ×3 (09:30→17:29)
[2021-03-14] MEDS: NYSTATIN 100,000 UNIT/GM TOPICAL CREAM 15 GM TUBE TP SCH ×2 (09:31→21:35)
[2021-03-14] MEDS: DOCUSATE SODIUM 100 MG CAPSULE (FP) PO SCH (21:35)
[2021-03-15] MEDS: ALBUTEROL SO4 2.5/IPRATROPIUM 0.5 INH SOL 3 ML VIAL.NEB. NEB PRN ×3 (03:10→19:35)
[2021-03-15] MEDS ORDERED: PT OWN MED DRAWER 7, Y5N ONE ×5 (06:34→16:32)
[2021-03-15] MEDS: PANTOPRAZOLE 40 MG TABLET PO SCH (06:36)
[2021-03-15] MEDS: ERLEADA 60 MG PO SCH (06:36)
[2021-03-15] MEDS: POLYETHYLENE GLYCOL 3350 119 GM BTL PO SCH ×3 (06:36→21:43)
[2021-03-15 06:41] LABS: BASO % 1.1 % (0-2.0); EOS % 8.9 % (0-4.5); HEMATOCRIT 25.1 % (35.4-49); HEMOGLOBIN 8.2 GM/dL (11.7-16.9); MCH 33.6 pg (25.7-33.7); MCHC 32.8 g/dl (32.0-35.9); MEAN CELL VOLUME 102.7 fl (80-96); PLATELET COUNT 236 K/MM3 (134-434); RBC 2.44 M/mm3 (4.00-5.60); RDW 15.7 % (11.9-15.9); WHITE BLOOD COUNT 4.4 K/mm3 (4.0-10.0)
[2021-03-15 06:48] LABS: INR 1.29 (0.83-1.09); PROTHROMBIN TIME (PATIENT) 15.7 SEC (9.7-13.0)
[2021-03-15 06:58] LABS: CALCIUM 8.9 mg/dL (8.5-10.1)
[2021-03-15 06:59] LABS: ALBUMIN 3.4 g/dl (3.4-5.0); BLOOD UREA NITROGEN 47.5 mg/dL (7-18)
[2021-03-15 07:02] LABS: CREATININE 1.1 mg/dL (0.55-1.3)
[2021-03-15 07:04] LABS: BILIRUBIN,TOTAL 0.3 mg/dL (0.2-1)
[2021-03-15] MEDS: LOSARTAN POTASSIUM 25 MG TABLET PO SCH (09:02)
[2021-03-15] MEDS: AMINO ACIDS/PROTEIN HYDROLYS 30 ML LIQUID.PKT PO SCH ×2 (09:03→17:12)
[2021-03-15] MEDS: MULTIVITAMINS (DAILY MVI) TABLET (FP) PO SCH (09:03)
[2021-03-15] MEDS: LIPASE/PROTEASE/AMYLASE 36,000 UNIT CAPSULE PO SCH ×3 (09:03→17:12)
[2021-03-15] MEDS: CARVEDILOL 3.125 MG TABLET (FP) PO SCH ×2 (09:03→21:44)
[2021-03-15] MEDS: NYSTATIN 100,000 UNIT/GM TOPICAL CREAM 15 GM TUBE TP SCH ×2 (09:03→21:44)
[2021-03-15 13:02] LABS: BF WBC & OTHER NUCLEATED CELLS 452 /mm3
[2021-03-15 14:15] LABS: BODY FLUID MACROPHAGES 73 %; BODY FLUID MESOTHELIAL 3 %
[2021-03-15] MEDS: DOCUSATE SODIUM 100 MG CAPSULE (FP) PO SCH (21:43)
[2021-03-16] MEDS: ALBUTEROL SO4 2.5/IPRATROPIUM 0.5 INH SOL 3 ML VIAL.NEB. NEB PRN ×5 (01:35→21:18)
[2021-03-16] MEDS ORDERED: PT OWN MED DRAWER 7, Y5N ONE ×5 (05:30→16:39)
[2021-03-16] MEDS: POLYETHYLENE GLYCOL 3350 119 GM BTL PO SCH ×3 (05:46→21:30)
[2021-03-16] MEDS: PANTOPRAZOLE 40 MG TABLET PO SCH (06:27)
[2021-03-16] MEDS: ERLEADA 60 MG PO SCH (06:28)
[2021-03-16 07:09] LABS: BASO % 1.2 % (0-2.0); EOS % 9.5 % (0-4.5); HEMATOCRIT 27.6 % (35.4-49); HEMOGLOBIN 8.8 GM/dL (11.7-16.9); MCH 32.8 pg (25.7-33.7); MCHC 31.8 g/dl (32.0-35.9); MEAN CELL VOLUME 103.3 fl (80-96); MEAN PLT VOLUME 8.9 fl (7.5-11.1); NEUT % 56.3 % (42.8-82.8); PLATELET COUNT 247 K/MM3 (134-434); RBC 2.67 M/mm3 (4.00-5.60); RDW 15.4 % (11.9-15.9); WHITE BLOOD COUNT 4.2 K/mm3 (4.0-10.0)
[2021-03-16 07:28] LABS: ALBUMIN 3.6 g/dl (3.4-5.0); BLOOD UREA NITROGEN 45.2 mg/dL (7-18); CALCIUM 9.2 mg/dL (8.5-10.1)
[2021-03-16 07:31] LABS: CREATININE 1.1 mg/dL (0.55-1.3)
[2021-03-16 07:33] LABS: BILIRUBIN,TOTAL 0.3 mg/dL (0.2-1)
[2021-03-16] MEDS: LIPASE/PROTEASE/AMYLASE 36,000 UNIT CAPSULE PO SCH ×3 (08:43→17:05)
[2021-03-16] MEDS: AMINO ACIDS/PROTEIN HYDROLYS 30 ML LIQUID.PKT PO SCH ×2 (08:43→17:05)
[2021-03-16] MEDS: CARVEDILOL 3.125 MG TABLET (FP) PO SCH ×2 (09:07→21:17)
[2021-03-16] MEDS: LOSARTAN POTASSIUM 25 MG TABLET PO SCH (09:07)
[2021-03-16] MEDS: MULTIVITAMINS (DAILY MVI) TABLET (FP) PO SCH (09:07)
[2021-03-16] MEDS: APIXABAN 5 MG TABLET PO SCH ×2 (09:07→21:18)
[2021-03-16] MEDS: NYSTATIN 100,000 UNIT/GM TOPICAL CREAM 15 GM TUBE TP SCH ×2 (09:07→21:30)
[2021-03-16] MEDS: DOCUSATE SODIUM 100 MG CAPSULE (FP) PO SCH (21:18)
[2021-03-16] MEDS: SENNOSIDES 8.6MG TABLET (FP) PO PRN (21:18)
[2021-03-17] MEDS: ALBUTEROL SO4 2.5/IPRATROPIUM 0.5 INH SOL 3 ML VIAL.NEB. NEB PRN ×4 (03:28→22:12)
[2021-03-17] MEDS ORDERED: PT OWN MED DRAWER 7, Y5N ONE ×6 (06:51→17:59)
[2021-03-17] MEDS: PANTOPRAZOLE 40 MG TABLET PO SCH (06:52)
[2021-03-17] MEDS: POLYETHYLENE GLYCOL 3350 119 GM BTL PO SCH ×3 (06:52→22:11)
[2021-03-17] MEDS: ERLEADA 60 MG PO SCH (06:55)
[2021-03-17] MEDS: AMINO ACIDS/PROTEIN HYDROLYS 30 ML LIQUID.PKT PO SCH ×2 (08:28→18:02)
[2021-03-17] MEDS: LIPASE/PROTEASE/AMYLASE 36,000 UNIT CAPSULE PO SCH ×3 (08:28→18:02)
[2021-03-17] MEDS: CARVEDILOL 3.125 MG TABLET (FP) PO SCH ×2 (10:04→21:18)
[2021-03-17] MEDS: APIXABAN 5 MG TABLET PO SCH ×2 (10:04→21:18)
[2021-03-17] MEDS: MULTIVITAMINS (DAILY MVI) TABLET (FP) PO SCH (10:04)
[2021-03-17] MEDS: LOSARTAN POTASSIUM 25 MG TABLET PO SCH (10:04)
[2021-03-17] MEDS: NYSTATIN 100,000 UNIT/GM TOPICAL CREAM 15 GM TUBE TP SCH ×2 (12:13→21:19)
[2021-03-17] MEDS ORDERED: METOPROLOL TARTRATE 5 MG/5 ML VIAL IVPUSH PRN (12:24)
[2021-03-17] MEDS: SPIRONOLACTONE 25 MG TABLET PO SCH (14:43)
[2021-03-17] MEDS: FUROSEMIDE 40 MG TABLET (FP) PO SCH (14:43)
[2021-03-17] MEDS: DOCUSATE SODIUM 100 MG CAPSULE (FP) PO SCH (22:11)
[2021-03-18] MEDS: ALBUTEROL SO4 2.5/IPRATROPIUM 0.5 INH SOL 3 ML VIAL.NEB. NEB PRN ×2 (04:00→10:00)
[2021-03-18] MEDS ORDERED: PT OWN MED DRAWER 7, Y5N ONE ×6 (06:32→16:57)
[2021-03-18] MEDS: POLYETHYLENE GLYCOL 3350 119 GM BTL PO SCH ×2 (06:34→14:26)
[2021-03-18] MEDS: ERLEADA 60 MG PO SCH (06:34)
[2021-03-18] MEDS: PANTOPRAZOLE 40 MG TABLET PO SCH (06:34)
[2021-03-18] MEDS: AMINO ACIDS/PROTEIN HYDROLYS 30 ML LIQUID.PKT PO SCH (08:45)
[2021-03-18] MEDS: LIPASE/PROTEASE/AMYLASE 36,000 UNIT CAPSULE PO SCH ×2 (08:45→12:58)
[2021-03-18] MEDS: CARVEDILOL 3.125 MG TABLET (FP) PO SCH (10:41)
[2021-03-18] MEDS: LOSARTAN POTASSIUM 25 MG TABLET PO SCH (10:41)
[2021-03-18] MEDS: APIXABAN 5 MG TABLET PO SCH (10:42)
[2021-03-18] MEDS: SPIRONOLACTONE 25 MG TABLET PO SCH (10:42)
[2021-03-18] MEDS: NYSTATIN 100,000 UNIT/GM TOPICAL CREAM 15 GM TUBE TP SCH (10:42)
[2021-03-18] MEDS: MULTIVITAMINS (DAILY MVI) TABLET (FP) PO SCH (10:42)
[2021-03-18] MEDS: FUROSEMIDE 40 MG TABLET (FP) PO SCH (10:42)
[2021-03-18] MEDS ORDERED: AMIODARONE HCL 200 MG TABLET PO SCH (11:45)
[2021-03-18 13:11] VITALS: BP 112/57; PULSE 77; TEMP 97.6
[2021-03-19 15:07] LABS: BODY FLUID ALBUMIN 2.1 g/dL (Not Estab.)
== END 2021-03-18 18:02 | disposition home health service (06) | DRG 309 ==
LOC: JER 17:35 → JERBED 22:09 → JICU 23:36 → J6WEST-2 02-26 23:28 → J4W 03-01 12:43 → J4S 03-02 18:06
PROVIDERS: ADMIT Internal Medicine Pulmonary Disease; ATTEND Internal Medicine
PROC: 0W9G3ZX Drainage of Peritoneal Cavity, Percutaneous Approach, Diagnostic (ICD-10-PCS; principal; 2021-03-15)
DX: I48.0 Paroxysmal atrial fibrillation (principal); K92.2 Gastrointestinal hemorrhage, unspecified; I24.8 Other forms of acute ischemic heart disease; J96.11 Chronic respiratory failure with hypoxia; I50.42 Chronic combined systolic (congestive) and diastolic (congestive) heart failure; R18.8 Other ascites; N39.0 Urinary tract infection, site not specified; Z16.12 Extended spectrum beta lactamase (ESBL) resistance; I25.119 Atherosclerotic heart disease of native coronary artery with unspecified angina pectoris; J44.9 Chronic obstructive pulmonary disease, unspecified; E78.5 Hyperlipidemia, unspecified; E11.9 Type 2 diabetes mellitus without complications; N40.0 Benign prostatic hyperplasia without lower urinary tract symptoms; I95.9 Hypotension, unspecified; Z95.5 Presence of coronary angioplasty implant and graft; I27.20 Pulmonary hypertension, unspecified; E66.01 Morbid (severe) obesity due to excess calories; Z68.32 Body mass index [BMI] 32.0-32.9, adult; R00.0 Tachycardia, unspecified; I12.9 Hypertensive chronic kidney disease with stage 1 through stage 4 chronic kidney disease, or unspecified chronic kidney disease; N18.9 Chronic kidney disease, unspecified; D50.9 Iron deficiency anemia, unspecified; K59.00 Constipation, unspecified
CPT/HCPCS: 36415; 71045-TC-FY; 74019-TC-FY; 74021-TC-FY; 74176-TC; 76705-TC; 76942-TC; 80048; 80053; 81003; 82042; 82150; 82272; 82465; 82550; 82553; 82803; 82945; 82962; 83605; 83615; 83690; 83735; 83880; 83986; 84100; 84157; 84443; 84478; 84484; 85025; 85027; 85610; 85730; 86301; 86850; 86900; 86901; 87040; 87070; 87075; 87086; 87102; 87116; 87186; 87205; 87206; 87210; 87804; 88108; 88305-TC; 93005; 93010; 93306-TC; 94640; 97116-GP; 97162-GP; 99291; C9803; J0282; J1644; J1756; U0003; U0005

== ENCOUNTER 2021-05-17 09:05 | Inpatient (IN) | payer OTHER ==
[2021-05-17 10:06] LABS: BASO % 0.8 % (0-2.0); EOS % 5.4 % (0-4.5); LYMPH % 12.6 % (8-40); MCH 31.9 pg (25.7-33.7); MCHC 31.9 g/dl (32.0-35.9); MEAN CELL VOLUME 99.9 fl (80-96); MONO % 7.3 % (3.8-10.2); NEUT % 73.9 % (42.8-82.8); PLATELET COUNT 268 10^3/uL (134-434); RDW 17.2 % (11.9-15.9)
[2021-05-17 10:24] LABS: ALBUMIN 3.8 g/dl (3.4-5.0); CALCIUM 9.2 mg/dL (8.5-10.1)
[2021-05-17 10:25] LABS: BLOOD UREA NITROGEN 62.5 mg/dL (7-18)
[2021-05-17 10:27] LABS: INR 1.95 (0.83-1.09); PROTHROMBIN TIME (PATIENT) 23.5 SEC (9.7-13.0)
[2021-05-17 10:28] LABS: CREATININE 1.8 mg/dL (0.55-1.3)
[2021-05-17 10:29] LABS: BILIRUBIN,TOTAL 0.4 mg/dL (0.2-1); TOT PROT 6.5 g/dl (6.4-8.2)
[2021-05-17 10:30] LABS: ACTIVATED PTT 35.9 SECONDS (25.2-36.5)
[2021-05-17 15:58] LABS: HEMATOCRIT 24.2 % (35.4-49); HEMOGLOBIN 7.8 GM/dL (11.7-16.9); MCH 31.2 pg (25.7-33.7); MCHC 32.3 g/dl (32.0-35.9); MEAN CELL VOLUME 96.6 fl (80-96); PLATELET COUNT 249 10^3/uL (134-434); WHITE BLOOD COUNT 6.2 K/mm3 (4.0-10.0)
[2021-05-17 16:19] LABS: CALCIUM 9.1 mg/dL (8.5-10.1)
[2021-05-17 16:20] LABS: BLOOD UREA NITROGEN 62.2 mg/dL (7-18)
[2021-05-17 16:23] LABS: CREATININE 1.8 mg/dL (0.55-1.3)
[2021-05-17] MEDS ORDERED: SENNOSIDES 8.6MG TABLET (FP) PO PRN (17:39)
[2021-05-17 18:35] LABS: EPI CELLS 1 /uL (0-25.1); HYALINE CASTS 0 /uL (0-3.1); PH,URINE 5.5 (5.0-8.0); URINE APPEARANCE CLEAR; URINE BACTERIA 136 /uL (0-1359); URINE BILIRUBIN NEGATIVE (NEGATIVE); URINE COLOR YELLOW; URINE GLUCOSE (UA) NEGATIVE (NEGATIVE); URINE KETONE NEGATIVE (NEGATIVE); URINE LEUK ESTERASE 2+ (NEGATIVE); URINE NITRITE NEGATIVE (NEGATIVE); URINE PROTEIN NEGATIVE (NEGATIVE); URINE RBC 6 /uL (0-23.9); URINE UROBILINOGEN 0.2 mg/dL (0.2-1.0); URINE WBC 130 /uL (0-25.8)
[2021-05-17] MEDS: ATORVASTATIN CA 40 MG TABLET (FP) PO SCH (21:16)
[2021-05-17] MEDS: CARVEDILOL 3.125 MG TABLET (FP) PO SCH (21:16)
[2021-05-17] MEDS: CARBIDOPA/LEVODOPA 25/100 TABLET (FP) PO SCH (21:17)
[2021-05-17] MEDS: DOCUSATE SODIUM 100 MG CAPSULE (FP) PO SCH (21:17)
[2021-05-17] MEDS ORDERED: PT OWN MED DRAWER 7, Y5N ONE (21:19)
[2021-05-17] MEDS ORDERED: POLYETHYLENE GLYCOL 3350 119 GM BTL PO SCH (22:00)
[2021-05-17] MEDS: AMIODARONE HCL 200 MG TABLET PO SCH (22:21)
[2021-05-17] MEDS: POLYETHYLENE GLYCOL (HEALTHYLAX) 3350 17 GM PACKET PO SCH (22:49)
[2021-05-18 00:55] VITALS: BMI 30.9
[2021-05-18] MEDS: POLYETHYLENE GLYCOL (HEALTHYLAX) 3350 17 GM PACKET PO SCH ×3 (06:18→21:28)
[2021-05-18] MEDS: INSULIN (LEVEMIR) 100 UNITS/ML UNITS SQ SCH (06:19)
[2021-05-18] MEDS ORDERED: DULoxetine HCL 30 MG CAPSULE.DR PO ONE (09:03)
[2021-05-18] MEDS ORDERED: PT OWN MED DRAWER 7, Y5N ONE ×3 (09:06→16:30)
[2021-05-18] MEDS: FERROUS SO4 325 MG TABLET (FP) PO SCH (09:07)
[2021-05-18] MEDS: FUROSEMIDE 40 MG TABLET (FP) PO SCH (09:07)
[2021-05-18] MEDS: TAMSULOSIN HCL 0.4 MG CAP PO SCH (09:07)
[2021-05-18] MEDS: LIPASE/PROTEASE/AMYLASE 36,000 UNIT CAPSULE PO SCH ×3 (09:07→17:02)
[2021-05-18] MEDS: CARBIDOPA/LEVODOPA 25/100 TABLET (FP) PO SCH ×2 (09:07→21:28)
[2021-05-18] MEDS: LOSARTAN POTASSIUM 25 MG TABLET PO SCH (09:07)
[2021-05-18] MEDS: MULTIVITAMINS (DAILY MVI) TABLET (FP) PO SCH (09:07)
[2021-05-18] MEDS: SPIRONOLACTONE 25 MG TABLET PO SCH (09:07)
[2021-05-18] MEDS: CARVEDILOL 3.125 MG TABLET (FP) PO SCH ×2 (09:07→21:28)
[2021-05-18] MEDS: PANTOPRAZOLE 40 MG TABLET PO SCH (09:07)
[2021-05-18] MEDS: ASPIRIN COATED 81 MG TABLET.EC PO SCH (09:07)
[2021-05-18] MEDS ORDERED: APALUTAMIDE 60 MG PO SCH (10:00)
[2021-05-18] MEDS ORDERED: DULoxetine HCL 60 MG CAPSULE.DR PO SCH (10:00)
[2021-05-18 10:01] LABS: BASO % 0.7 % (0-2.0); EOS % 5.8 % (0-4.5); HEMATOCRIT 24.1 % (35.4-49); HEMOGLOBIN 7.8 GM/dL (11.7-16.9); LYMPH % 10.6 % (8-40); MCH 31.6 pg (25.7-33.7); MCHC 32.2 g/dl (32.0-35.9); MEAN CELL VOLUME 98.2 fl (80-96); MEAN PLT VOLUME 7.7 fl (7.5-11.1); NEUT % 75.9 % (42.8-82.8); PLATELET COUNT 264 10^3/uL (134-434); RBC 2.45 M/mm3 (4.00-5.60); RDW 19.9 % (11.9-15.9); WHITE BLOOD COUNT 6.2 K/mm3 (4.0-10.0)
[2021-05-18 10:18] LABS: BLOOD UREA NITROGEN 46.9 mg/dL (7-18); CALCIUM 9.2 mg/dL (8.5-10.1)
[2021-05-18 10:19] LABS: ALBUMIN 3.6 g/dl (3.4-5.0); BILIRUBIN,TOTAL 0.7 mg/dL (0.2-1); CREATININE 1.5 mg/dL (0.55-1.3)
[2021-05-18 10:20] LABS: TOT PROT 6.2 g/dl (6.4-8.2)
[2021-05-18] MEDS: AMIODARONE HCL 200 MG TABLET PO SCH (11:05)
[2021-05-18] MEDS: ATORVASTATIN CA 40 MG TABLET (FP) PO SCH (21:28)
[2021-05-18] MEDS: DOCUSATE SODIUM 100 MG CAPSULE (FP) PO SCH (21:29)
[2021-05-19] MEDS: POLYETHYLENE GLYCOL (HEALTHYLAX) 3350 17 GM PACKET PO SCH ×3 (06:01→21:37)
[2021-05-19] MEDS: INSULIN (LEVEMIR) 100 UNITS/ML UNITS SQ SCH (06:01)
[2021-05-19] MEDS ORDERED: PT OWN MED DRAWER 7, Y5N ONE ×3 (09:02→21:31)
[2021-05-19] MEDS: TAMSULOSIN HCL 0.4 MG CAP PO SCH (09:13)
[2021-05-19] MEDS: LIPASE/PROTEASE/AMYLASE 36,000 UNIT CAPSULE PO SCH ×3 (09:13→17:48)
[2021-05-19] MEDS: DULoxetine HCL 30 MG CAPSULE.DR PO SCH (09:13)
[2021-05-19] MEDS: MULTIVITAMINS (DAILY MVI) TABLET (FP) PO SCH (09:14)
[2021-05-19] MEDS: ASPIRIN COATED 81 MG TABLET.EC PO SCH (09:14)
[2021-05-19] MEDS: PANTOPRAZOLE 40 MG TABLET PO SCH (09:14)
[2021-05-19] MEDS: FERROUS SO4 325 MG TABLET (FP) PO SCH (09:14)
[2021-05-19] MEDS: AMIODARONE HCL 200 MG TABLET PO SCH (09:15)
[2021-05-19] MEDS: CARBIDOPA/LEVODOPA 25/100 TABLET (FP) PO SCH ×2 (09:15→21:36)
[2021-05-19] MEDS: FUROSEMIDE 40 MG TABLET (FP) PO SCH (10:18)
[2021-05-19] MEDS: CARVEDILOL 3.125 MG TABLET (FP) PO SCH ×2 (10:18→21:37)
[2021-05-19] MEDS: SPIRONOLACTONE 25 MG TABLET PO SCH (10:18)
[2021-05-19] MEDS: LOSARTAN POTASSIUM 25 MG TABLET PO SCH (10:18)
[2021-05-19] MEDS: ALBUTEROL SO4 2.5/IPRATROPIUM 0.5 INH SOL 3 ML VIAL.NEB. NEB PRN ×2 (12:14→18:04)
[2021-05-19] MEDS ORDERED: IRON SUCROSE INJECTION 100 MG in SODIUM CHLORIDE 95 ML IVPB ONE (21:00)
[2021-05-19] MEDS: DOCUSATE SODIUM 100 MG CAPSULE (FP) PO SCH (21:36)
[2021-05-19] MEDS: ATORVASTATIN CA 40 MG TABLET (FP) PO SCH (21:36)
[2021-05-19] MEDS: SACUBITRIL/VALSARTAN 24 MG-26 MG TABLET PO SCH (21:36)
[2021-05-20] MEDS: INSULIN (LEVEMIR) 100 UNITS/ML UNITS SQ SCH (06:05)
[2021-05-20] MEDS: POLYETHYLENE GLYCOL (HEALTHYLAX) 3350 17 GM PACKET PO SCH ×3 (06:05→21:45)
[2021-05-20] MEDS: ALBUTEROL SO4 2.5/IPRATROPIUM 0.5 INH SOL 3 ML VIAL.NEB. NEB PRN ×3 (07:20→20:51)
[2021-05-20] MEDS: TAMSULOSIN HCL 0.4 MG CAP PO SCH (08:37)
[2021-05-20 09:06] LABS: BASO % 0.5 % (0-2.0); EOS % 5.5 % (0-4.5); HEMATOCRIT 20.2 % (35.4-49); LYMPH % 11.7 % (8-40); MCH 31.2 pg (25.7-33.7); MCHC 31.7 g/dl (32.0-35.9); MEAN CELL VOLUME 98.5 fl (80-96); MEAN PLT VOLUME 7.7 fl (7.5-11.1); MONO % 7.5 % (3.8-10.2); NEUT % 74.8 % (42.8-82.8); PLATELET COUNT 251 10^3/uL (134-434); RBC 2.05 M/mm3 (4.00-5.60); WHITE BLOOD COUNT 5.3 K/mm3 (4.0-10.0)
[2021-05-20 09:10] LABS: HEMOGLOBIN 6.4 GM/dL (11.7-16.9)
[2021-05-20 09:25] LABS: BLOOD UREA NITROGEN 32.4 mg/dL (7-18)
[2021-05-20 09:26] LABS: ALBUMIN 3.4 g/dl (3.4-5.0)
[2021-05-20 09:30] LABS: CREATININE 1.2 mg/dL (0.55-1.3)
[2021-05-20 09:31] LABS: BILIRUBIN,TOTAL 0.4 mg/dL (0.2-1); TOT PROT 5.5 g/dl (6.4-8.2)
[2021-05-20] MEDS ORDERED: PT OWN MED DRAWER 7, Y5N ONE ×4 (10:14→21:25)
[2021-05-20] MEDS: AMIODARONE HCL 200 MG TABLET PO SCH ×2 (10:17→10:26)
[2021-05-20] MEDS: SPIRONOLACTONE 25 MG TABLET PO SCH ×2 (10:17→10:21)
[2021-05-20] MEDS: MULTIVITAMINS (DAILY MVI) TABLET (FP) PO SCH (10:17)
[2021-05-20] MEDS: LIPASE/PROTEASE/AMYLASE 36,000 UNIT CAPSULE PO SCH ×3 (10:17→18:00)
[2021-05-20] MEDS: CARBIDOPA/LEVODOPA 25/100 TABLET (FP) PO SCH ×2 (10:18→21:44)
[2021-05-20] MEDS: ASPIRIN COATED 81 MG TABLET.EC PO SCH (10:18)
[2021-05-20] MEDS: FERROUS SO4 325 MG TABLET (FP) PO SCH (10:18)
[2021-05-20] MEDS: CARVEDILOL 3.125 MG TABLET (FP) PO SCH ×3 (10:18→21:45)
[2021-05-20] MEDS: SACUBITRIL/VALSARTAN 24 MG-26 MG TABLET PO SCH ×2 (10:18→21:48)
[2021-05-20] MEDS: PANTOPRAZOLE 40 MG TABLET PO SCH (10:18)
[2021-05-20] MEDS: DULoxetine HCL 30 MG CAPSULE.DR PO SCH (10:18)
[2021-05-20] MEDS: FUROSEMIDE 40 MG TABLET (FP) PO SCH ×2 (10:18→10:26)
[2021-05-20] MEDS: DOCUSATE SODIUM 100 MG CAPSULE (FP) PO SCH (21:44)
[2021-05-20] MEDS: ATORVASTATIN CA 40 MG TABLET (FP) PO SCH (21:45)
[2021-05-21] MEDS: POLYETHYLENE GLYCOL (HEALTHYLAX) 3350 17 GM PACKET PO SCH ×3 (06:12→21:13)
[2021-05-21] MEDS: INSULIN (LEVEMIR) 100 UNITS/ML UNITS SQ SCH (06:12)
[2021-05-21] MEDS: ALBUTEROL SO4 2.5/IPRATROPIUM 0.5 INH SOL 3 ML VIAL.NEB. NEB PRN (07:26)
[2021-05-21] MEDS: LIPASE/PROTEASE/AMYLASE 36,000 UNIT CAPSULE PO SCH ×3 (08:07→17:40)
[2021-05-21] MEDS ORDERED: PT OWN MED DRAWER 7, Y5N ONE ×3 (09:19→21:00)
[2021-05-21] MEDS: FERROUS SO4 325 MG TABLET (FP) PO SCH (09:26)
[2021-05-21] MEDS: CARBIDOPA/LEVODOPA 25/100 TABLET (FP) PO SCH ×2 (09:26→21:09)
[2021-05-21] MEDS: DULoxetine HCL 30 MG CAPSULE.DR PO SCH (09:26)
[2021-05-21] MEDS: MULTIVITAMINS (DAILY MVI) TABLET (FP) PO SCH (09:26)
[2021-05-21] MEDS: PANTOPRAZOLE 40 MG TABLET PO SCH (09:26)
[2021-05-21] MEDS: TAMSULOSIN HCL 0.4 MG CAP PO SCH (09:26)
[2021-05-21] MEDS: SACUBITRIL/VALSARTAN 24 MG-26 MG TABLET PO SCH ×2 (09:27→21:08)
[2021-05-21] MEDS: AMIODARONE HCL 200 MG TABLET PO SCH (09:31)
[2021-05-21] MEDS: CARVEDILOL 3.125 MG TABLET (FP) PO SCH ×2 (09:31→21:08)
[2021-05-21] MEDS: SPIRONOLACTONE 25 MG TABLET PO SCH (09:31)
[2021-05-21] MEDS: FUROSEMIDE 40 MG TABLET (FP) PO SCH (09:31)
[2021-05-21 09:33] LABS: BASO % 1.2 % (0-2.0); EOS % 5.6 % (0-4.5); HEMATOCRIT 22.5 % (35.4-49); HEMOGLOBIN 7.3 GM/dL (11.7-16.9); LYMPH % 12.1 % (8-40); MCH 30.8 pg (25.7-33.7); MCHC 32.5 g/dl (32.0-35.9); MEAN CELL VOLUME 94.7 fl (80-96); MEAN PLT VOLUME 7.6 fl (7.5-11.1); MONO % 5.8 % (3.8-10.2); NEUT % 75.3 % (42.8-82.8); PLATELET COUNT 274 10^3/uL (134-434); RBC 2.38 M/mm3 (4.00-5.60); RDW 21.3 % (11.9-15.9); WHITE BLOOD COUNT 6.8 K/mm3 (4.0-10.0)
[2021-05-21 10:19] LABS: CALCIUM 9.3 mg/dL (8.5-10.1)
[2021-05-21 10:20] LABS: ALBUMIN 3.5 g/dl (3.4-5.0); BLOOD UREA NITROGEN 31.7 mg/dL (7-18)
[2021-05-21 10:23] LABS: CREATININE 1.2 mg/dL (0.55-1.3)
[2021-05-21 10:24] LABS: BILIRUBIN,TOTAL 0.6 mg/dL (0.2-1)
[2021-05-21 10:25] LABS: TOT PROT 6.1 g/dl (6.4-8.2)
[2021-05-21] MEDS: ATORVASTATIN CA 40 MG TABLET (FP) PO SCH (21:08)
[2021-05-21] MEDS: DOCUSATE SODIUM 100 MG CAPSULE (FP) PO SCH (21:09)
[2021-05-22] MEDS: POLYETHYLENE GLYCOL (HEALTHYLAX) 3350 17 GM PACKET PO SCH ×3 (05:56→21:18)
[2021-05-22 08:30] LABS: BASO % 0.6 % (0-2.0); EOS % 6.2 % (0-4.5); HEMATOCRIT 24.3 % (35.4-49); LYMPH % 11.9 % (8-40); MCH 30.9 pg (25.7-33.7); MCHC 32.9 g/dl (32.0-35.9); MEAN CELL VOLUME 93.8 fl (80-96); MEAN PLT VOLUME 7.2 fl (7.5-11.1); MONO % 7.2 % (3.8-10.2); NEUT % 74.1 % (42.8-82.8); PLATELET COUNT 258 10^3/uL (134-434); RBC 2.59 M/mm3 (4.00-5.60); RDW 21.3 % (11.9-15.9); WHITE BLOOD COUNT 6.4 K/mm3 (4.0-10.0)
[2021-05-22] MEDS: LIPASE/PROTEASE/AMYLASE 36,000 UNIT CAPSULE PO SCH ×3 (08:31→16:53)
[2021-05-22] MEDS: CARBIDOPA/LEVODOPA 25/100 TABLET (FP) PO SCH ×2 (09:36→21:18)
[2021-05-22] MEDS: FERROUS SO4 325 MG TABLET (FP) PO SCH (09:36)
[2021-05-22] MEDS: DULoxetine HCL 30 MG CAPSULE.DR PO SCH (09:36)
[2021-05-22] MEDS: SPIRONOLACTONE 25 MG TABLET PO SCH (09:36)
[2021-05-22] MEDS: CARVEDILOL 3.125 MG TABLET (FP) PO SCH ×2 (09:36→21:18)
[2021-05-22] MEDS: TAMSULOSIN HCL 0.4 MG CAP PO SCH (09:36)
[2021-05-22] MEDS: MULTIVITAMINS (DAILY MVI) TABLET (FP) PO SCH (09:36)
[2021-05-22] MEDS: FUROSEMIDE 40 MG TABLET (FP) PO SCH (09:36)
[2021-05-22] MEDS: PANTOPRAZOLE 40 MG TABLET PO SCH (09:36)
[2021-05-22] MEDS: SACUBITRIL/VALSARTAN 24 MG-26 MG TABLET PO SCH ×2 (09:38→21:18)
[2021-05-22] MEDS: AMIODARONE HCL 200 MG TABLET PO SCH (09:38)
[2021-05-22] MEDS: ALBUTEROL SO4 2.5/IPRATROPIUM 0.5 INH SOL 3 ML VIAL.NEB. NEB PRN (20:11)
[2021-05-22] MEDS ORDERED: PT OWN MED DRAWER 7, Y5N ONE (21:12)
[2021-05-22] MEDS: ATORVASTATIN CA 40 MG TABLET (FP) PO SCH (21:18)
[2021-05-22] MEDS: DOCUSATE SODIUM 100 MG CAPSULE (FP) PO SCH (21:18)
[2021-05-23] MEDS: POLYETHYLENE GLYCOL (HEALTHYLAX) 3350 17 GM PACKET PO SCH ×2 (05:13→13:29)
[2021-05-23] MEDS: INSULIN (LEVEMIR) 100 UNITS/ML UNITS SQ SCH (06:00)
[2021-05-23] MEDS: ALBUTEROL SO4 2.5/IPRATROPIUM 0.5 INH SOL 3 ML VIAL.NEB. NEB PRN ×2 (07:30→14:30)
[2021-05-23] MEDS ORDERED: PT OWN MED DRAWER 7, Y5N ONE ×2 (07:55→09:38)
[2021-05-23] MEDS: LIPASE/PROTEASE/AMYLASE 36,000 UNIT CAPSULE PO SCH ×3 (08:06→17:00)
[2021-05-23 08:40] LABS: BASO % 0.9 % (0-2.0); EOS % 6.5 % (0-4.5); HEMATOCRIT 24.1 % (35.4-49); HEMOGLOBIN 7.9 GM/dL (11.7-16.9); LYMPH % 16.2 % (8-40); MCH 30.7 pg (25.7-33.7); MCHC 32.6 g/dl (32.0-35.9); MEAN CELL VOLUME 94.1 fl (80-96); MEAN PLT VOLUME 7.8 fl (7.5-11.1); NEUT % 69.4 % (42.8-82.8); PLATELET COUNT 278 10^3/uL (134-434); RBC 2.56 M/mm3 (4.00-5.60); RDW 20.2 % (11.9-15.9); WHITE BLOOD COUNT 6.2 K/mm3 (4.0-10.0)
[2021-05-23 09:02] LABS: CALCIUM 9.1 mg/dL (8.5-10.1)
[2021-05-23 09:03] LABS: ALBUMIN 3.6 g/dl (3.4-5.0); BLOOD UREA NITROGEN 33.9 mg/dL (7-18)
[2021-05-23 09:06] LABS: CREATININE 1.1 mg/dL (0.55-1.3)
[2021-05-23 09:07] LABS: BILIRUBIN,TOTAL 0.7 mg/dL (0.2-1)
[2021-05-23] MEDS: TAMSULOSIN HCL 0.4 MG CAP PO SCH (09:21)
[2021-05-23] MEDS: AMIODARONE HCL 200 MG TABLET PO SCH (09:41)
[2021-05-23] MEDS: CARBIDOPA/LEVODOPA 25/100 TABLET (FP) PO SCH (09:41)
[2021-05-23] MEDS: DULoxetine HCL 30 MG CAPSULE.DR PO SCH (09:41)
[2021-05-23] MEDS: SACUBITRIL/VALSARTAN 24 MG-26 MG TABLET PO SCH (09:41)
[2021-05-23] MEDS: PANTOPRAZOLE 40 MG TABLET PO SCH (09:41)
[2021-05-23] MEDS: FERROUS SO4 325 MG TABLET (FP) PO SCH (09:41)
[2021-05-23] MEDS: CARVEDILOL 3.125 MG TABLET (FP) PO SCH (09:41)
[2021-05-23] MEDS: FUROSEMIDE 40 MG TABLET (FP) PO SCH (09:42)
[2021-05-23] MEDS: MULTIVITAMINS (DAILY MVI) TABLET (FP) PO SCH (09:42)
[2021-05-23] MEDS: SPIRONOLACTONE 25 MG TABLET PO SCH (09:42)
[2021-05-23 12:01] LABS: N-TERMINAL BNP 2611.5 pg/ml (5-450)
[2021-05-23 14:25] VITALS: BP 102/50; PULSE 73; TEMP 97.5
== END 2021-05-23 18:10 | disposition home health service (06) | DRG 813 ==
LOC: JER 09:05 → JERBED 10:58 → J6S 18:17
PROVIDERS: ADMIT Internal Medicine; ATTEND Internal Medicine
PROC: 30233N1 Transfusion of Nonautologous Red Blood Cells into Peripheral Vein, Percutaneous Approach (ICD-10-PCS; principal; 2021-05-17)
DX: D68.32 Hemorrhagic disorder due to extrinsic circulating anticoagulants (principal); K92.2 Gastrointestinal hemorrhage, unspecified; K56.609 Unspecified intestinal obstruction, unspecified as to partial versus complete obstruction; I50.42 Chronic combined systolic (congestive) and diastolic (congestive) heart failure; I24.8 Other forms of acute ischemic heart disease; N17.9 Acute kidney failure, unspecified; I13.0 Hypertensive heart and chronic kidney disease with heart failure and stage 1 through stage 4 chronic kidney disease, or unspecified chronic kidney disease; J44.9 Chronic obstructive pulmonary disease, unspecified; I10 Essential (primary) hypertension; E78.00 Pure hypercholesterolemia, unspecified; N18.9 Chronic kidney disease, unspecified; I25.119 Atherosclerotic heart disease of native coronary artery with unspecified angina pectoris; E11.9 Type 2 diabetes mellitus without complications; I48.0 Paroxysmal atrial fibrillation; N40.0 Benign prostatic hyperplasia without lower urinary tract symptoms; F32.9 Major depressive disorder, single episode, unspecified; M10.9 Gout, unspecified; I27.20 Pulmonary hypertension, unspecified; K86.81 Exocrine pancreatic insufficiency; T39.015A Adverse effect of aspirin, initial encounter; T45.515A Adverse effect of anticoagulants, initial encounter; E66.9 Obesity, unspecified; Z68.31 Body mass index [BMI] 31.0-31.9, adult; D64.9 Anemia, unspecified; Z99.81 Dependence on supplemental oxygen; Z95.5 Presence of coronary angioplasty implant and graft; Z86.711 Personal history of pulmonary embolism; Z85.46 Personal history of malignant neoplasm of prostate
CPT/HCPCS: 36415; 36430; 36511; 71045-TC-FY; 74019-TC-FY; 80048; 80053; 80061; 81003; 82272; 82607; 82728; 82747; 82962; 83036; 83540; 83550; 83690; 83721; 83880; 84439; 84443; 84466; 84484; 85014; 85025; 85027; 85610; 85730; 86078; 86850; 86880; 86900; 86901; 86922; 93005; 93010; 94640; 99285-25; C9803; J1756; P9038; P9058; U0003; U0005

== ENCOUNTER 2021-05-28 16:38 | Inpatient (IN) | payer OTHER ==
[2021-05-28 17:51] VITALS: BMI 28.0
[2021-05-28 18:50] LABS: BASO % 0.6 % (0-2.0); EOS % 3.6 % (0-4.5); HEMATOCRIT 15.5 % (35.4-49); LYMPH % 12.3 % (8-40); MCH 31.8 pg (25.7-33.7); MCHC 32.9 g/dl (32.0-35.9); MEAN CELL VOLUME 96.7 fl (80-96); MEAN PLT VOLUME 7.7 fl (7.5-11.1); MONO % 7.4 % (3.8-10.2); NEUT % 76.1 % (42.8-82.8); PLATELET COUNT 279 10^3/uL (134-434); RDW 20.8 % (11.9-15.9); WHITE BLOOD COUNT 7.7 K/mm3 (4.0-10.0)
[2021-05-28 18:58] LABS: INR 1.19 (0.83-1.09); PROTHROMBIN TIME (PATIENT) 14.6 SEC (9.7-13.0)
[2021-05-28 19:00] LABS: ACTIVATED PTT 28.5 SECONDS (25.2-36.5)
[2021-05-28 19:09] LABS: HEMOGLOBIN 5.1 GM/dL (11.7-16.9)
[2021-05-28 19:23] LABS: CALCIUM 8.6 mg/dL (8.5-10.1)
[2021-05-28 19:24] LABS: ALBUMIN 3.4 g/dl (3.4-5.0)
[2021-05-28 19:27] LABS: CREATININE 1.7 mg/dL (0.55-1.3)
[2021-05-28 19:29] LABS: BILIRUBIN,TOTAL 0.4 mg/dL (0.2-1); TOT PROT 5.8 g/dl (6.4-8.2)
[2021-05-28 19:54] LABS: BLOOD UREA NITROGEN 61.4 mg/dL (7-18)
[2021-05-28 19:55] LABS: ANISOCYTOSIS 2+; MACROCYTOSIS 0; PLATELET ESTIMATE NORMAL
[2021-05-28] MEDS ORDERED: IRON SUCROSE INJECTION 100 MG in SODIUM CHLORIDE 95 ML IVPB ONE (23:14)
[2021-05-29] MEDS: SACUBITRIL/VALSARTAN 24 MG-26 MG TABLET PO SCH ×3 (00:44→22:24)
[2021-05-29] MEDS: LIPASE/PROTEASE/AMYLASE 36,000 UNIT CAPSULE PO SCH ×4 (00:55→17:30)
[2021-05-29] MEDS ORDERED: POLYETHYLENE GLYCOL 3350 119 GM BTL PO SCH (06:00)
[2021-05-29 06:52] LABS: BASO % 1.1 % (0-2.0); EOS % 2.5 % (0-4.5); HEMATOCRIT 21.6 % (35.4-49); HEMOGLOBIN 7.1 GM/dL (11.7-16.9); LYMPH % 11.2 % (8-40); MCH 30.8 pg (25.7-33.7); MCHC 32.9 g/dl (32.0-35.9); MEAN CELL VOLUME 93.4 fl (80-96); MEAN PLT VOLUME 7.1 fl (7.5-11.1); MONO % 7.3 % (3.8-10.2); NEUT % 77.9 % (42.8-82.8); PLATELET COUNT 265 10^3/uL (134-434); RBC 2.32 M/mm3 (4.00-5.60); WHITE BLOOD COUNT 7.7 K/mm3 (4.0-10.0)
[2021-05-29 07:18] LABS: ALBUMIN 3.5 g/dl (3.4-5.0); BLOOD UREA NITROGEN 52.1 mg/dL (7-18); CALCIUM 8.8 mg/dL (8.5-10.1)
[2021-05-29 07:22] LABS: CREATININE 1.6 mg/dL (0.55-1.3)
[2021-05-29 07:23] LABS: BILIRUBIN,TOTAL 0.6 mg/dL (0.2-1); TOT PROT 5.9 g/dl (6.4-8.2)
[2021-05-29] MEDS ORDERED: ACETAMINOPHEN 325 MG TABLET (FP) PO ONE (09:00)
[2021-05-29] MEDS: CARVEDILOL 3.125 MG TABLET (FP) PO SCH ×2 (11:19→22:00)
[2021-05-29] MEDS: TAMSULOSIN HCL 0.4 MG CAP PO SCH (11:19)
[2021-05-29] MEDS: DULoxetine HCL 30 MG CAPSULE.DR PO SCH (11:19)
[2021-05-29] MEDS: SPIRONOLACTONE 25 MG TABLET PO SCH (11:20)
[2021-05-29] MEDS: PANTOPRAZOLE 40 MG TABLET PO SCH (11:20)
[2021-05-29] MEDS: CARBIDOPA/LEVODOPA 25/100 TABLET (FP) PO SCH ×2 (11:21→22:00)
[2021-05-29] MEDS: AMIODARONE HCL 200 MG TABLET PO SCH (11:21)
[2021-05-29] MEDS ORDERED: FUROSEMIDE 40 MG/4 ML INJECTABLE VIAL IVPUSH ONE (11:30)
[2021-05-29] MEDS: ALBUTEROL SO4 2.5/IPRATROPIUM 0.5 INH SOL 3 ML VIAL.NEB. NEB PRN ×3 (11:50→21:46)
[2021-05-29] MEDS: POLYETHYLENE GLYCOL (HEALTHYLAX) 3350 17 GM PACKET PO SCH ×2 (14:03→22:00)
[2021-05-29] MEDS ORDERED: PT OWN MED DRAWER 7, Y5N ONE ×2 (17:29→21:31)
[2021-05-29 18:14] LABS: EPI CELLS 3 /uL (0-25.1); HYALINE CASTS 0 /uL (0-3.1); URINE APPEARANCE CLEAR; URINE BACTERIA 80 /uL (0-1359); URINE BILIRUBIN NEGATIVE (NEGATIVE); URINE COLOR YELLOW; URINE GLUCOSE (UA) NEGATIVE (NEGATIVE); URINE KETONE NEGATIVE (NEGATIVE); URINE LEUK ESTERASE 2+ (NEGATIVE); URINE NITRITE NEGATIVE (NEGATIVE); URINE PROTEIN NEGATIVE (NEGATIVE); URINE RBC 14 /uL (0-23.9); URINE UROBILINOGEN 0.2 mg/dL (0.2-1.0); URINE WBC 104 /uL (0-25.8)
[2021-05-29] MEDS ORDERED: DOCUSATE SODIUM 100 MG CAPSULE (FP) PO SCH (22:00)
[2021-05-29] MEDS: ATORVASTATIN CA 20 MG TABLET (FP) PO SCH (22:00)
[2021-05-29] MEDS: INSULIN SLIDING SCALE (NOVOLOG) 1 VIAL SQ SCH (22:14)
[2021-05-30] MEDS: POLYETHYLENE GLYCOL (HEALTHYLAX) 3350 17 GM PACKET PO SCH ×3 (06:10→21:20)
[2021-05-30] MEDS: INSULIN SLIDING SCALE (NOVOLOG) 1 VIAL SQ SCH ×4 (06:15→21:27)
[2021-05-30] MEDS ORDERED: KETAMINE HCL 200 MG/20 ML VIAL ONE (06:46)
[2021-05-30] MEDS ORDERED: EPINEPHrine 1:10,000 (P-F SYR) 1 MG/10 ML DISP.SYRIN ONE (07:16)
[2021-05-30] MEDS ORDERED: PT OWN MED DRAWER 7, Y5N ONE ×3 (08:50→21:18)
[2021-05-30] MEDS: TAMSULOSIN HCL 0.4 MG CAP PO SCH (09:19)
[2021-05-30] MEDS: LIPASE/PROTEASE/AMYLASE 36,000 UNIT CAPSULE PO SCH ×3 (09:19→17:11)
[2021-05-30] MEDS: SACUBITRIL/VALSARTAN 24 MG-26 MG TABLET PO SCH ×2 (10:02→21:22)
[2021-05-30] MEDS: CARVEDILOL 3.125 MG TABLET (FP) PO SCH ×2 (10:02→21:21)
[2021-05-30] MEDS: CARBIDOPA/LEVODOPA 25/100 TABLET (FP) PO SCH ×2 (10:02→21:21)
[2021-05-30] MEDS: DULoxetine HCL 30 MG CAPSULE.DR PO SCH (10:02)
[2021-05-30] MEDS: APALUTAMIDE 60 MG PO SCH (10:02)
[2021-05-30] MEDS: AMIODARONE HCL 200 MG TABLET PO SCH (10:02)
[2021-05-30] MEDS: SPIRONOLACTONE 25 MG TABLET PO SCH (10:02)
[2021-05-30] MEDS: PANTOPRAZOLE 40 MG TABLET PO SCH (10:02)
[2021-05-30 10:57] LABS: BASO % 0.4 % (0-2.0); EOS % 3.8 % (0-4.5); HEMATOCRIT 21.9 % (35.4-49); HEMOGLOBIN 7.1 GM/dL (11.7-16.9); LYMPH % 9.3 % (8-40); MCH 30.5 pg (25.7-33.7); MCHC 32.6 g/dl (32.0-35.9); MEAN CELL VOLUME 93.8 fl (80-96); MEAN PLT VOLUME 7.7 fl (7.5-11.1); MONO % 5.4 % (3.8-10.2); NEUT % 81.1 % (42.8-82.8); PLATELET COUNT 257 10^3/uL (134-434); RBC 2.34 M/mm3 (4.00-5.60); RDW 19.3 % (11.9-15.9); WHITE BLOOD COUNT 7.7 K/mm3 (4.0-10.0)
[2021-05-30 11:35] LABS: ALBUMIN 3.2 g/dl (3.4-5.0); BILIRUBIN,TOTAL 0.5 mg/dL (0.2-1); BLOOD UREA NITROGEN 43.5 mg/dL (7-18); CREATININE 1.4 mg/dL (0.55-1.3)
[2021-05-30 11:36] LABS: TOT PROT 5.5 g/dl (6.4-8.2)
[2021-05-30 11:40] LABS: CALCIUM 8.8 mg/dL (8.5-10.1)
[2021-05-30] MEDS: ALBUTEROL SO4 2.5/IPRATROPIUM 0.5 INH SOL 3 ML VIAL.NEB. NEB PRN ×2 (15:25→19:40)
[2021-05-30] MEDS: ATORVASTATIN CA 20 MG TABLET (FP) PO SCH (21:21)
[2021-05-31] MEDS: INSULIN SLIDING SCALE (NOVOLOG) 1 VIAL SQ SCH ×4 (06:50→22:02)
[2021-05-31] MEDS: POLYETHYLENE GLYCOL (HEALTHYLAX) 3350 17 GM PACKET PO SCH ×3 (06:50→22:02)
[2021-05-31] MEDS: LIPASE/PROTEASE/AMYLASE 36,000 UNIT CAPSULE PO SCH ×3 (08:10→17:57)
[2021-05-31 09:30] LABS: BASO % 0.5 % (0-2.0); EOS % 3.5 % (0-4.5); HEMATOCRIT 21.6 % (35.4-49); HEMOGLOBIN 7.3 GM/dL (11.7-16.9); LYMPH % 7.2 % (8-40); MCH 31.3 pg (25.7-33.7); MCHC 33.9 g/dl (32.0-35.9); MEAN CELL VOLUME 92.5 fl (80-96); MEAN PLT VOLUME 7.2 fl (7.5-11.1); NEUT % 83.8 % (42.8-82.8); PLATELET COUNT 244 10^3/uL (134-434); RBC 2.34 M/mm3 (4.00-5.60); RDW 19.4 % (11.9-15.9); WHITE BLOOD COUNT 7.4 K/mm3 (4.0-10.0)
[2021-05-31] MEDS ORDERED: PT OWN MED DRAWER 7, Y5N ONE ×2 (09:47→22:06)
[2021-05-31] MEDS: DULoxetine HCL 30 MG CAPSULE.DR PO SCH (10:01)
[2021-05-31] MEDS: SPIRONOLACTONE 25 MG TABLET PO SCH (10:02)
[2021-05-31] MEDS: CARVEDILOL 6.25 MG TABLET (FP) PO SCH ×2 (10:02→22:01)
[2021-05-31] MEDS: PANTOPRAZOLE 40 MG TABLET PO SCH (10:02)
[2021-05-31] MEDS: TAMSULOSIN HCL 0.4 MG CAP PO SCH (10:02)
[2021-05-31] MEDS: CARBIDOPA/LEVODOPA 25/100 TABLET (FP) PO SCH ×2 (10:02→22:01)
[2021-05-31] MEDS: APALUTAMIDE 60 MG PO SCH ×2 (10:02→10:06)
[2021-05-31] MEDS: SACUBITRIL/VALSARTAN 24 MG-26 MG TABLET PO SCH ×2 (10:04→22:03)
[2021-05-31] MEDS: AMIODARONE HCL 200 MG TABLET PO SCH (10:06)
[2021-05-31 10:09] LABS: ALBUMIN 3.3 g/dl (3.4-5.0); BLOOD UREA NITROGEN 38.6 mg/dL (7-18); CALCIUM 8.8 mg/dL (8.5-10.1)
[2021-05-31 10:13] LABS: CREATININE 1.3 mg/dL (0.55-1.3)
[2021-05-31 10:14] LABS: BILIRUBIN,TOTAL 0.7 mg/dL (0.2-1); TOT PROT 5.6 g/dl (6.4-8.2)
[2021-05-31] MEDS: ALBUTEROL SO4 2.5/IPRATROPIUM 0.5 INH SOL 3 ML VIAL.NEB. NEB PRN ×4 (10:26→22:47)
[2021-05-31] MEDS: ATORVASTATIN CA 20 MG TABLET (FP) PO SCH (22:01)
[2021-06-01] MEDS: POLYETHYLENE GLYCOL (HEALTHYLAX) 3350 17 GM PACKET PO SCH ×3 (05:57→21:49)
[2021-06-01] MEDS: INSULIN SLIDING SCALE (NOVOLOG) 1 VIAL SQ SCH ×4 (06:04→21:50)
[2021-06-01] MEDS: LIPASE/PROTEASE/AMYLASE 36,000 UNIT CAPSULE PO SCH ×3 (07:51→17:06)
[2021-06-01] MEDS ORDERED: PT OWN MED DRAWER 7, Y5N ONE ×4 (07:51→21:52)
[2021-06-01] MEDS: SPIRONOLACTONE 25 MG TABLET PO SCH (09:37)
[2021-06-01] MEDS: AMIODARONE HCL 200 MG TABLET PO SCH (09:38)
[2021-06-01] MEDS: SACUBITRIL/VALSARTAN 24 MG-26 MG TABLET PO SCH ×2 (09:38→21:54)
[2021-06-01] MEDS: CARVEDILOL 6.25 MG TABLET (FP) PO SCH ×2 (09:38→21:49)
[2021-06-01] MEDS: PANTOPRAZOLE 40 MG TABLET PO SCH (09:39)
[2021-06-01] MEDS: CARBIDOPA/LEVODOPA 25/100 TABLET (FP) PO SCH ×2 (09:39→21:49)
[2021-06-01] MEDS: TAMSULOSIN HCL 0.4 MG CAP PO SCH (09:39)
[2021-06-01] MEDS: DULoxetine HCL 30 MG CAPSULE.DR PO SCH (09:39)
[2021-06-01] MEDS: APALUTAMIDE 60 MG PO SCH (09:40)
[2021-06-01] MEDS: ALBUTEROL SO4 2.5/IPRATROPIUM 0.5 INH SOL 3 ML VIAL.NEB. NEB PRN ×2 (14:38→19:41)
[2021-06-01] MEDS: ATORVASTATIN CA 20 MG TABLET (FP) PO SCH (21:49)
[2021-06-01] MEDS: ACETAMINOPHEN 325 MG TABLET (FP) PO PRN (23:10)
[2021-06-02] MEDS: POLYETHYLENE GLYCOL (HEALTHYLAX) 3350 17 GM PACKET PO SCH ×3 (05:34→21:22)
[2021-06-02] MEDS: INSULIN SLIDING SCALE (NOVOLOG) 1 VIAL SQ SCH ×4 (06:12→21:27)
[2021-06-02] MEDS ORDERED: PT OWN MED DRAWER 7, Y5N ONE ×2 (07:37→21:16)
[2021-06-02] MEDS: LIPASE/PROTEASE/AMYLASE 36,000 UNIT CAPSULE PO SCH ×3 (07:42→16:57)
[2021-06-02] MEDS: TAMSULOSIN HCL 0.4 MG CAP PO SCH (07:42)
[2021-06-02 08:46] LABS: BASO % 0.5 % (0-2.0); HEMATOCRIT 17.9 % (35.4-49); LYMPH % 8.4 % (8-40); MCH 31.4 pg (25.7-33.7); MCHC 33.4 g/dl (32.0-35.9); MEAN CELL VOLUME 94.2 fl (80-96); MEAN PLT VOLUME 7.4 fl (7.5-11.1); MONO % 6.3 % (3.8-10.2); NEUT % 80.8 % (42.8-82.8); PLATELET COUNT 208 10^3/uL (134-434); RDW 19.8 % (11.9-15.9); WHITE BLOOD COUNT 7.2 K/mm3 (4.0-10.0)
[2021-06-02 09:00] LABS: BLOOD UREA NITROGEN 35.8 mg/dL (7-18); CALCIUM 8.6 mg/dL (8.5-10.1)
[2021-06-02 09:03] LABS: CREATININE 1.2 mg/dL (0.55-1.3)
[2021-06-02 09:05] LABS: BILIRUBIN,TOTAL 0.4 mg/dL (0.2-1); TOT PROT 5.2 g/dl (6.4-8.2)
[2021-06-02] MEDS: APALUTAMIDE 60 MG PO SCH (10:08)
[2021-06-02] MEDS: PANTOPRAZOLE 40 MG TABLET PO SCH (10:09)
[2021-06-02] MEDS: CARBIDOPA/LEVODOPA 25/100 TABLET (FP) PO SCH ×2 (10:09→21:22)
[2021-06-02] MEDS: DULoxetine HCL 30 MG CAPSULE.DR PO SCH (10:09)
[2021-06-02] MEDS: CARVEDILOL 6.25 MG TABLET (FP) PO SCH ×2 (10:09→21:24)
[2021-06-02] MEDS: SACUBITRIL/VALSARTAN 24 MG-26 MG TABLET PO SCH ×2 (10:10→21:24)
[2021-06-02] MEDS: SPIRONOLACTONE 25 MG TABLET PO SCH (10:11)
[2021-06-02] MEDS: AMIODARONE HCL 200 MG TABLET PO SCH (10:11)
[2021-06-02] MEDS: ALBUTEROL SO4 2.5/IPRATROPIUM 0.5 INH SOL 3 ML VIAL.NEB. NEB PRN ×2 (11:48→20:11)
[2021-06-02] MEDS ORDERED: IRON SUCROSE INJECTION 100 MG in SODIUM CHLORIDE 95 ML IVPB ONE (20:12)
[2021-06-02] MEDS: ATORVASTATIN CA 20 MG TABLET (FP) PO SCH (21:22)
[2021-06-02] MEDS: ACETAMINOPHEN 325 MG TABLET (FP) PO PRN (23:32)
[2021-06-03] MEDS: POLYETHYLENE GLYCOL (HEALTHYLAX) 3350 17 GM PACKET PO SCH ×3 (06:03→21:37)
[2021-06-03] MEDS: INSULIN SLIDING SCALE (NOVOLOG) 1 VIAL SQ SCH ×4 (06:59→21:38)
[2021-06-03] MEDS ORDERED: PT OWN MED DRAWER 7, Y5N ONE ×3 (08:47→21:35)
[2021-06-03] MEDS: TAMSULOSIN HCL 0.4 MG CAP PO SCH (08:51)
[2021-06-03] MEDS: LIPASE/PROTEASE/AMYLASE 36,000 UNIT CAPSULE PO SCH ×3 (08:51→17:01)
[2021-06-03 09:15] LABS: BASO % 0.5 % (0-2.0); HEMATOCRIT 20.6 % (35.4-49); LYMPH % 10.4 % (8-40); MCH 31.3 pg (25.7-33.7); MCHC 33.5 g/dl (32.0-35.9); MEAN CELL VOLUME 93.4 fl (80-96); MEAN PLT VOLUME 7.8 fl (7.5-11.1); MONO % 6.3 % (3.8-10.2); NEUT % 77.8 % (42.8-82.8); PLATELET COUNT 228 10^3/uL (134-434); RDW 18.9 % (11.9-15.9); RETICULOCYTES 3.58 % (0.5-1.5); WHITE BLOOD COUNT 7.2 K/mm3 (4.0-10.0)
[2021-06-03 09:26] LABS: HEMOGLOBIN 6.9 GM/dL (11.7-16.9)
[2021-06-03] MEDS: SPIRONOLACTONE 25 MG TABLET PO SCH (09:35)
[2021-06-03] MEDS: APALUTAMIDE 60 MG PO SCH (09:35)
[2021-06-03] MEDS: CARVEDILOL 6.25 MG TABLET (FP) PO SCH ×2 (09:36→21:37)
[2021-06-03] MEDS: SACUBITRIL/VALSARTAN 24 MG-26 MG TABLET PO SCH ×2 (09:36→21:37)
[2021-06-03] MEDS: AMIODARONE HCL 200 MG TABLET PO SCH (09:36)
[2021-06-03 09:45] LABS: ALBUMIN 3.2 g/dl (3.4-5.0)
[2021-06-03 09:47] LABS: CALCIUM 8.6 mg/dL (8.5-10.1)
[2021-06-03 09:48] LABS: BLOOD UREA NITROGEN 40.7 mg/dL (7-18)
[2021-06-03 09:51] LABS: CREATININE 1.3 mg/dL (0.55-1.3)
[2021-06-03 09:52] LABS: BILIRUBIN,TOTAL 0.5 mg/dL (0.2-1); TOT PROT 5.5 g/dl (6.4-8.2)
[2021-06-03] MEDS: CARBIDOPA/LEVODOPA 25/100 TABLET (FP) PO SCH ×2 (10:18→21:37)
[2021-06-03] MEDS: PANTOPRAZOLE 40 MG TABLET PO SCH (10:18)
[2021-06-03] MEDS: DULoxetine HCL 30 MG CAPSULE.DR PO SCH (10:18)
[2021-06-03 12:31] VITALS: TEMP 98.4
[2021-06-03 19:01] VITALS: BP 96/48; PULSE 85
[2021-06-03] MEDS: ATORVASTATIN CA 20 MG TABLET (FP) PO SCH (21:37)
[2021-06-03] MEDS ORDERED: ALBUTEROL SO4 2.5/IPRATROPIUM 0.5 INH SOL 3 ML VIAL.NEB. NEB PRN (22:47)
== END 2021-06-03 23:50 | disposition short-term general hospital (02) | DRG 378 ==
LOC: JER 16:38 → JERBED 20:57 → UNDOADMOB 20:57 → INTOOBSV 20:57 → J6S 05-29 08:21 → JERBED 05-29 08:21 → J6S 05-29 10:37 → OBSVTOIN 05-31 11:17
PROVIDERS: ADMIT Internal Medicine; ATTEND Internal Medicine
PROC: 30233N1 Transfusion of Nonautologous Red Blood Cells into Peripheral Vein, Percutaneous Approach (ICD-10-PCS; principal; 2021-05-28)
PROC: 0DJ08ZZ Inspection of Upper Intestinal Tract, Via Natural or Artificial Opening Endoscopic (ICD-10-PCS; 2021-05-30)
DX: K92.2 Gastrointestinal hemorrhage, unspecified (principal); I50.42 Chronic combined systolic (congestive) and diastolic (congestive) heart failure; D64.9 Anemia, unspecified; F32.9 Major depressive disorder, single episode, unspecified; E11.9 Type 2 diabetes mellitus without complications; E78.5 Hyperlipidemia, unspecified; G20 Parkinson's disease; I48.0 Paroxysmal atrial fibrillation; C61 Malignant neoplasm of prostate; N40.0 Benign prostatic hyperplasia without lower urinary tract symptoms; I25.10 Atherosclerotic heart disease of native coronary artery without angina pectoris; Z98.61 Coronary angioplasty status; E66.9 Obesity, unspecified; Z68.27 Body mass index [BMI] 27.0-27.9, adult; I11.0 Hypertensive heart disease with heart failure; J44.9 Chronic obstructive pulmonary disease, unspecified
CPT/HCPCS: 36415; 36430; 36511; 71045-TC-FY; 76700-TC; 80053; 81003; 82272; 82550; 82962; 83010; 83615; 84484; 85025; 85045; 85610; 85730; 86850; 86900; 86901; 86922; 93005; 93010; 94640; 99285-25; C9803; G0378; J1756; P9038; P9058; U0003; U0005

== ENCOUNTER 2022-01-14 14:10 | Inpatient (IN) | payer OTHER ==
[2022-01-14] MEDS ORDERED: METOPROLOL TARTRATE 5 MG/5 ML VIAL IVPUSH ONE ×2 (15:20→15:59)
[2022-01-14 15:31] LABS: INR 1.82 (0.83-1.09); PROTHROMBIN TIME (PATIENT) 21.1 SEC (9.7-13.0)
[2022-01-14 15:34] LABS: ACTIVATED PTT 38.2 SECONDS (25.2-36.5)
[2022-01-14 15:36] LABS: ALBUMIN 3.7 g/dl (3.4-5.0); BLOOD UREA NITROGEN 33.1 mg/dL (7-18); MAGNESIUM 1.4 mg/dL (1.8-2.4)
[2022-01-14 15:39] LABS: CREATININE 1.7 mg/dL (0.55-1.3)
[2022-01-14 15:40] LABS: TOT PROT 6.6 g/dl (6.4-8.2)
[2022-01-14 15:41] LABS: BILIRUBIN,TOTAL 0.7 mg/dL (0.2-1)
[2022-01-14 15:42] LABS: BASO % 0.9 % (0-2.0); HEMOGLOBIN 9.6 GM/dL (11.7-16.9); LYMPH % 9.3 % (8-40); MCH 36.7 pg (25.7-33.7); MCHC 33.2 g/dl (32.0-35.9); MEAN CELL VOLUME 110.6 fl (80-96); MEAN PLT VOLUME 8.3 fl (7.5-11.1); NEUT % 74.8 % (42.8-82.8); PLATELET COUNT 185 10^3/uL (134-434); RBC 2.62 M/mm3 (4.00-5.60); RDW 16.3 % (11.9-15.9); WHITE BLOOD COUNT 4.4 K/mm3 (4.0-10.0)
[2022-01-14] MEDS ORDERED: METOPROLOL TARTRATE 5 MG/5 ML VIAL ONE ×2 (15:44→16:04)
[2022-01-14 15:45] LABS: N-TERMINAL BNP 6969.6 pg/ml (5-450)
[2022-01-14] MEDS ORDERED: METOPROLOL TARTRATE 25 MG TABLET (FP) PO ONE (16:19)
[2022-01-14] MEDS ORDERED: METOPROLOL TARTRATE 50 MG TABLET (FP) ONE (19:32)
[2022-01-14] MEDS ORDERED: APIXABAN 5 MG TABLET PO SCH (22:00)
[2022-01-14] MEDS ORDERED: HEPARIN NA (PORCINE) 5,000 UNITS/ML 1ML VIAL SQ SCH (22:00)
[2022-01-14] MEDS ORDERED: CARBIDOPA/LEVODOPA 25/100 TABLET (FP) ONE (22:10)
[2022-01-14] MEDS ORDERED: APIXABAN 5 MG TABLET ONE (22:10)
[2022-01-14] MEDS: CARBIDOPA/LEVODOPA 25/100 TABLET (FP) PO SCH (22:15)
[2022-01-14] MEDS ORDERED: ACETAMINOPHEN 325 MG TABLET (FP) PO ONE (22:36)
[2022-01-14] MEDS ORDERED: ACETAMINOPHEN 325 MG TABLET (FP) ONE (22:38)
[2022-01-14 23:28] LABS: MACROCYTOSIS 2+
[2022-01-15 00:45] LABS: EPI CELLS 2 /uL (0-25.1); HYALINE CASTS 1 /uL (0-3.1); URINE APPEARANCE CLEAR; URINE BACTERIA 3820 /uL (0-1359); URINE BILIRUBIN NEGATIVE (NEGATIVE); URINE COLOR YELLOW; URINE GLUCOSE (UA) NEGATIVE (NEGATIVE); URINE KETONE NEGATIVE (NEGATIVE); URINE LEUK ESTERASE TRACE (NEGATIVE); URINE NITRITE NEGATIVE (NEGATIVE); URINE PROTEIN NEGATIVE (NEGATIVE); URINE RBC 5 /uL (0-23.9); URINE UROBILINOGEN 0.2 mg/dL (0.2-1.0); URINE WBC 107 /uL (0-25.8)
[2022-01-15] MEDS: LEVOTHYROXINE NA 50 MCG TABLET (FP) PO SCH (08:40)
[2022-01-15] MEDS ORDERED: TAMSULOSIN HCL 0.4 MG CAP ONE (08:42)
[2022-01-15] MEDS ORDERED: LEVOTHYROXINE NA 25 MCG TABLET (FP) ONE (08:42)
[2022-01-15] MEDS: TAMSULOSIN HCL 0.4 MG CAP PO SCH (08:44)
[2022-01-15] MEDS ORDERED: CARBIDOPA/LEVODOPA 25/100 TABLET (FP) ONE (10:27)
[2022-01-15] MEDS ORDERED: PANTOPRAZOLE 40 MG TABLET ONE (10:27)
[2022-01-15] MEDS: SACUBITRIL/VALSARTAN 24 MG-26 MG TABLET PO SCH ×2 (10:34→21:49)
[2022-01-15] MEDS: CARVEDILOL 6.25 MG TABLET (FP) PO SCH ×2 (10:34→21:49)
[2022-01-15] MEDS: CARBIDOPA/LEVODOPA 25/100 TABLET (FP) PO SCH ×2 (10:35→21:49)
[2022-01-15] MEDS: PANTOPRAZOLE 40 MG TABLET PO SCH (10:35)
[2022-01-15 10:49] LABS: BASO % 0.6 % (0-2.0); EOS % 5.8 % (0-4.5); HEMATOCRIT 30.6 % (35.4-49); HEMOGLOBIN 10.1 GM/dL (11.7-16.9); LYMPH % 11.3 % (8-40); MCH 36.7 pg (25.7-33.7); MCHC 33.2 g/dl (32.0-35.9); MEAN CELL VOLUME 110.7 fl (80-96); MEAN PLT VOLUME 8.4 fl (7.5-11.1); NEUT % 72.3 % (42.8-82.8); PLATELET COUNT 186 10^3/uL (134-434); RBC 2.76 M/mm3 (4.00-5.60); WHITE BLOOD COUNT 4.7 K/mm3 (4.0-10.0)
[2022-01-15 11:04] LABS: ALBUMIN 3.9 g/dl (3.4-5.0); BLOOD UREA NITROGEN 32.2 mg/dL (7-18); MAGNESIUM 1.4 mg/dL (1.8-2.4)
[2022-01-15 11:07] LABS: CREATININE 1.6 mg/dL (0.55-1.3); PHOSPHOROUS 4.3 mg/dL (2.5-4.9)
[2022-01-15 11:09] LABS: BILIRUBIN,TOTAL 0.8 mg/dL (0.2-1); TOT PROT 6.7 g/dl (6.4-8.2)
[2022-01-15] MEDS: FUROSEMIDE 40 MG/4 ML INJECTABLE VIAL IVPUSH SCH ×2 (12:30→17:46)
[2022-01-15] MEDS ORDERED: FUROSEMIDE 40 MG/4 ML INJECTABLE VIAL ONE (12:38)
[2022-01-15 17:45] VITALS: BMI 30.7
[2022-01-15] MEDS ORDERED: METOPROLOL TARTRATE 5 MG/5 ML VIAL IVPUSH ONE (18:20)
[2022-01-15] MEDS ORDERED: METOPROLOL TARTRATE 5 MG/5 ML VIAL ONE (18:23)
[2022-01-15] MEDS: APIXABAN 2.5 MG TABLET PO SCH ×2 (19:17→21:49)
[2022-01-16] MEDS: FUROSEMIDE 40 MG/4 ML INJECTABLE VIAL IVPUSH SCH (06:47)
[2022-01-16] MEDS: LEVOTHYROXINE NA 50 MCG TABLET (FP) PO SCH (06:47)
[2022-01-16 07:00] LABS: BASO % 0.8 % (0-2.0); EOS % 6.1 % (0-4.5); HEMATOCRIT 28.9 % (35.4-49); HEMOGLOBIN 9.4 GM/dL (11.7-16.9); LYMPH % 8.5 % (8-40); MCH 36.3 pg (25.7-33.7); MCHC 32.4 g/dl (32.0-35.9); MEAN CELL VOLUME 112.1 fl (80-96); MEAN PLT VOLUME 8.6 fl (7.5-11.1); MONO % 9.5 % (3.8-10.2); NEUT % 75.1 % (42.8-82.8); PLATELET COUNT 196 10^3/uL (134-434); RBC 2.58 M/mm3 (4.00-5.60); RDW 15.4 % (11.9-15.9); WHITE BLOOD COUNT 4.5 K/mm3 (4.0-10.0)
[2022-01-16 07:07] LABS: CALCIUM 8.7 mg/dL (8.5-10.1)
[2022-01-16 07:08] LABS: ALBUMIN 3.5 g/dl (3.4-5.0)
[2022-01-16 07:10] LABS: BLOOD UREA NITROGEN 27.9 mg/dL (7-18); CREATININE 1.4 mg/dL (0.55-1.3)
[2022-01-16 07:12] LABS: BILIRUBIN,TOTAL 0.8 mg/dL (0.2-1); TOT PROT 6.2 g/dl (6.4-8.2)
[2022-01-16] MEDS: APIXABAN 2.5 MG TABLET PO SCH ×2 (09:00→22:02)
[2022-01-16] MEDS: PANTOPRAZOLE 40 MG TABLET PO SCH (09:00)
[2022-01-16] MEDS: SACUBITRIL/VALSARTAN 24 MG-26 MG TABLET PO SCH ×2 (09:00→22:02)
[2022-01-16] MEDS: CARVEDILOL 6.25 MG TABLET (FP) PO SCH ×2 (09:00→22:02)
[2022-01-16] MEDS: TAMSULOSIN HCL 0.4 MG CAP PO SCH (09:00)
[2022-01-16] MEDS: CARBIDOPA/LEVODOPA 25/100 TABLET (FP) PO SCH ×2 (09:01→22:03)
[2022-01-17] MEDS: LEVOTHYROXINE NA 50 MCG TABLET (FP) PO SCH (06:02)
[2022-01-17 08:31] LABS: BASO % 0.5 % (0-2.0); EOS % 4.8 % (0-4.5); HEMATOCRIT 28.6 % (35.4-49); HEMOGLOBIN 9.5 GM/dL (11.7-16.9); LYMPH % 12.3 % (8-40); MCH 36.8 pg (25.7-33.7); MCHC 33.2 g/dl (32.0-35.9); MEAN CELL VOLUME 110.9 fl (80-96); MEAN PLT VOLUME 8.2 fl (7.5-11.1); MONO % 9.5 % (3.8-10.2); NEUT % 72.9 % (42.8-82.8); PLATELET COUNT 205 10^3/uL (134-434); RBC 2.58 M/mm3 (4.00-5.60); RDW 15.7 % (11.9-15.9)
[2022-01-17 08:46] LABS: BLOOD UREA NITROGEN 23.2 mg/dL (7-18); CALCIUM 8.6 mg/dL (8.5-10.1); MAGNESIUM 1.2 mg/dL (1.8-2.4)
[2022-01-17 08:47] LABS: ALBUMIN 3.2 g/dl (3.4-5.0)
[2022-01-17 08:48] LABS: CHOLESTEROL 135 mg/dL (50-200); TRIGLYCERIDES 74 mg/dL (0-150)
[2022-01-17 08:49] LABS: CREATININE 1.3 mg/dL (0.55-1.3); PHOSPHOROUS 3.1 mg/dL (2.5-4.9)
[2022-01-17 08:50] LABS: LDL CHOLESTEROL (ONLY SJRH) 67 mg/dL (5-100)
[2022-01-17 08:51] LABS: BILIRUBIN,TOTAL 0.7 mg/dL (0.2-1)
[2022-01-17 08:57] LABS: HDL CHOLESTEROL 55 mg/dL (40-60)
[2022-01-17] MEDS: CARVEDILOL 6.25 MG TABLET (FP) PO SCH (09:16)
[2022-01-17] MEDS: TAMSULOSIN HCL 0.4 MG CAP PO SCH (09:16)
[2022-01-17] MEDS: CARBIDOPA/LEVODOPA 25/100 TABLET (FP) PO SCH (09:16)
[2022-01-17] MEDS: PANTOPRAZOLE 40 MG TABLET PO SCH (09:16)
[2022-01-17] MEDS: APIXABAN 2.5 MG TABLET PO SCH (09:16)
[2022-01-17] MEDS: SACUBITRIL/VALSARTAN 24 MG-26 MG TABLET PO SCH (09:17)
[2022-01-17] MEDS ORDERED: FUROSEMIDE 40 MG/4 ML INJECTABLE VIAL IVPUSH SCH (10:00)
[2022-01-17 15:25] VITALS: BP 116/77; PULSE 90; TEMP 97.5
== END 2022-01-17 16:30 | disposition home or self-care (01) | DRG 291 ==
LOC: JER 14:10 → JERBED 17:14 → OBSVTOIN 01-15 11:19 → J4W 01-15 16:27
PROVIDERS: ADMIT Internal Medicine; ATTEND Internal Medicine
DX: I11.0 Hypertensive heart disease with heart failure (principal); I50.43 Acute on chronic combined systolic (congestive) and diastolic (congestive) heart failure; I47.1 Supraventricular tachycardia; N17.9 Acute kidney failure, unspecified; R18.8 Other ascites; I42.9 Cardiomyopathy, unspecified; E78.5 Hyperlipidemia, unspecified; I48.91 Unspecified atrial fibrillation; I25.119 Atherosclerotic heart disease of native coronary artery with unspecified angina pectoris; J44.9 Chronic obstructive pulmonary disease, unspecified; I48.0 Paroxysmal atrial fibrillation; I27.20 Pulmonary hypertension, unspecified; E11.9 Type 2 diabetes mellitus without complications; I45.10 Unspecified right bundle-branch block; E03.9 Hypothyroidism, unspecified; G20 Parkinson's disease; E66.3 Overweight; Z68.31 Body mass index [BMI] 31.0-31.9, adult; M41.9 Scoliosis, unspecified; N40.0 Benign prostatic hyperplasia without lower urinary tract symptoms; K74.60 Unspecified cirrhosis of liver; D64.9 Anemia, unspecified; M10.9 Gout, unspecified; F32.A Depression, unspecified; Z99.81 Dependence on supplemental oxygen; Z95.5 Presence of coronary angioplasty implant and graft; Z86.711 Personal history of pulmonary embolism; Z85.46 Personal history of malignant neoplasm of prostate
CPT/HCPCS: 36415; 71045-TC-FY; 80053; 80061; 81003; 83036; 83605; 83690; 83735; 83880; 84100; 84439; 84443; 84484; 85025; 85610; 85730; 87086; 87186; 93005; 93010; 99285-25; C9803; G0378; U0003; U0005

== ENCOUNTER 2022-12-18 14:05 | Inpatient (IN) | payer OTHER ==
[2022-12-18 14:39] VITALS: BMI 27.0
[2022-12-18] MEDS ORDERED: SODIUM CHLORIDE 0.9% 500 ML INFUS.BAG IV ONE (14:56)
[2022-12-18 16:01] LABS: BASO % 0.8 % (0-2.0); EOS % 2.6 % (0-4.5); HEMATOCRIT 26.5 % (35.4-49); HEMOGLOBIN 8.5 GM/dL (11.7-16.9); LYMPH % 10.1 % (8-40); MCH 35.6 pg (25.7-33.7); MEAN CELL VOLUME 111.2 fl (80-96); MEAN PLT VOLUME 9.8 fl (7.5-11.1); MONO % 10.4 % (3.8-10.2); NEUT % 76.1 % (42.8-82.8); PLATELET COUNT 215 10^3/uL (134-434); RBC 2.39 M/mm3 (4.00-5.60); RDW 17.1 % (11.9-15.9); WHITE BLOOD COUNT 5.2 K/mm3 (4.0-10.0)
[2022-12-18 16:38] LABS: ALBUMIN 3.2 g/dl (3.4-5.0); BLOOD UREA NITROGEN 56.4 mg/dL (7-18); CALCIUM 7.8 mg/dL (8.5-10.1); CHLORIDE 107 mmol/L (98-107); CO2 24 mmol/L (21-32); CREATININE 2.6 mg/dL (0.55-1.3); GLUCOSE,RANDOM 65 mg/dL (74-106); SGOT/AST 61 U/L (15-37); SODIUM 137 mmol/L (136-145)
[2022-12-18 16:39] LABS: TOT PROT 6.5 g/dl (6.4-8.2)
[2022-12-18 16:40] LABS: ALK PHOS 140 U/L (45-117); BILIRUBIN,TOTAL 0.7 mg/dL (0.2-1)
[2022-12-18 16:42] LABS: N-TERMINAL BNP 8642.3 pg/ml (5-450)
[2022-12-18 16:50] LABS: ANION GAP 6 MMOL/L (8-16); ANISOCYTOSIS 2+; MACROCYTOSIS 2+; MAGNESIUM 0.5 mg/dL (1.8-2.4); OVALOCYTE 2+; SGPT/ALT 10 U/L (13-61); TEAR DROP CELLS 1+
[2022-12-18] MEDS ORDERED: ASPIRIN 81 MG CHEWABLE TABLETS PO ONE (17:08)
[2022-12-18] MEDS ORDERED: DEXTROSE 50%-WATER 25 GM/50 ML DISP.SYRIN ONE (17:08)
[2022-12-18] MEDS ORDERED: DEXTROSE 50%-WATER - 25 GM/50 ML VIAL IVPUSH ONE (17:15)
[2022-12-18] MEDS ORDERED: ASPIRIN 81 MG CHEWABLE TABLETS ONE (17:16)
[2022-12-18 17:43] LABS: VENOUS BASE EXCESS -4.6 mmol/L (-2-2); VENOUS O2 SATURATION 23.6 % (70-80); VENOUS PCO2 54.6 mmHg (38-52); VENOUS PH 7.24 (7.310-7.410)
[2022-12-18 18:18] LABS: CHLORIDE 106 mmol/L (98-107); SODIUM 140 mmol/L (136-145)
[2022-12-18 18:20] LABS: ANION GAP 8 MMOL/L (8-16); BLOOD UREA NITROGEN 56.9 mg/dL (7-18); CO2 26 mmol/L (21-32); GLUCOSE,RANDOM 69 mg/dL (74-106)
[2022-12-18 18:23] LABS: CREATININE 2.6 mg/dL (0.55-1.3)
[2022-12-18 18:28] LABS: MAGNESIUM 0.5 mg/dL (1.8-2.4)
[2022-12-18] MEDS ORDERED: MAGNESIUM SULFATE IN WATER 2 GM/50 ML IVPB IVPB ONE (18:35)
[2022-12-19] MEDS ORDERED: MAGNESIUM SULFATE IN WATER 2 GM/50 ML IVPB IVPB ONE (01:00)
[2022-12-19 01:56] LABS: CHLORIDE 109 mmol/L (98-107); SODIUM 141 mmol/L (136-145)
[2022-12-19 01:58] LABS: ALBUMIN 3.1 g/dl (3.4-5.0); ANION GAP 7 MMOL/L (8-16); BLOOD UREA NITROGEN 55.6 mg/dL (7-18); CALCIUM 7.7 mg/dL (8.5-10.1); CO2 25 mmol/L (21-32); GLUCOSE,RANDOM 94 mg/dL (74-106)
[2022-12-19 02:01] LABS: PHOSPHOROUS 3.4 mg/dL (2.5-4.9); SGOT/AST 40 U/L (15-37); SGPT/ALT 10 U/L (13-61)
[2022-12-19 02:02] LABS: CREATININE 2.5 mg/dL (0.55-1.3)
[2022-12-19 02:03] LABS: BILIRUBIN,TOTAL 0.7 mg/dL (0.2-1); TOT PROT 5.9 g/dl (6.4-8.2)
[2022-12-19 02:04] LABS: ALK PHOS 135 U/L (45-117)
[2022-12-19 02:12] LABS: MAGNESIUM 0.8 mg/dL (1.8-2.4)
[2022-12-19] MEDS ORDERED: MAGNESIUM SULF 50% (8.12 MEQ/2 ML-1 GM VIAL) IVPB ONE (04:00)
[2022-12-19] MEDS: LEVOTHYROXINE NA 50 MCG TABLET (FP) PO SCH (06:22)
[2022-12-19 07:30] LABS: BASO % 0.4 % (0-2.0); EOS % 2.1 % (0-4.5); HEMATOCRIT 25.9 % (35.4-49); HEMOGLOBIN 8.2 GM/dL (11.7-16.9); LYMPH % 8.1 % (8-40); MCH 35.4 pg (25.7-33.7); MCHC 31.8 g/dl (32.0-35.9); MEAN CELL VOLUME 111.2 fl (80-96); MEAN PLT VOLUME 9.1 fl (7.5-11.1); MONO % 9.3 % (3.8-10.2); NEUT % 80.1 % (42.8-82.8); PLATELET COUNT 178 10^3/uL (134-434); RBC 2.33 M/mm3 (4.00-5.60); RDW 16.9 % (11.9-15.9)
[2022-12-19 08:21] LABS: CHLORIDE 108 mmol/L (98-107); SODIUM 143 mmol/L (136-145)
[2022-12-19 08:32] LABS: CALCIUM 8.7 mg/dL (8.5-10.1)
[2022-12-19 08:35] LABS: ALBUMIN 3.2 g/dl (3.4-5.0); ANION GAP 10 MMOL/L (8-16); BLOOD UREA NITROGEN 56.9 mg/dL (7-18); CO2 25 mmol/L (21-32); GLUCOSE,RANDOM 84 mg/dL (74-106)
[2022-12-19 08:38] LABS: CREATININE 2.5 mg/dL (0.55-1.3); SGOT/AST 42 U/L (15-37); SGPT/ALT 9 U/L (13-61)
[2022-12-19 08:40] LABS: BILIRUBIN,TOTAL 0.7 mg/dL (0.2-1); TOT PROT 6.2 g/dl (6.4-8.2)
[2022-12-19 08:41] LABS: ALK PHOS 139 U/L (45-117)
[2022-12-19 08:42] LABS: INR 1.27 (0.83-1.09); PROTHROMBIN TIME (PATIENT) 14.7 SEC (9.7-13.0)
[2022-12-19] MEDS ORDERED: COLCHICINE 0.6 MG TAB PO SCH (10:00)
[2022-12-19] MEDS: CARBIDOPA/LEVODOPA 25/100 TABLET (FP) PO SCH ×2 (10:18→21:39)
[2022-12-19] MEDS: SACUBITRIL/VALSARTAN 24 MG-26 MG TABLET PO SCH ×2 (10:18→21:39)
[2022-12-19] MEDS: DIGOXIN 0.125 MG TABLET PO SCH (10:18)
[2022-12-19] MEDS: HEPARIN NA (PORCINE) 5,000 UNITS/ML 1ML VIAL SQ SCH ×2 (10:18→21:38)
[2022-12-19] MEDS: DULoxetine HCL 30 MG CAPSULE.DR PO SCH (10:18)
[2022-12-19] MEDS: PANTOPRAZOLE 40 MG TABLET PO SCH (10:19)
[2022-12-19] MEDS ORDERED: SODIUM CHLORIDE 0.45% 1,000 ML IV SCH (12:30)
[2022-12-19] MEDS: ALBUTEROL SO4 2.5/IPRATROPIUM 0.5 INH SOL 3 ML VIAL.NEB. NEB SCH ×2 (16:40→20:10)
[2022-12-19 19:28] LABS: EPI CELLS 19 /uL (0-25.1); HYALINE CASTS 2 /uL (0-3.1); URINE APPEARANCE CLEAR; URINE BACTERIA 6226 /uL (0-1359); URINE BILIRUBIN NEGATIVE (NEGATIVE); URINE COLOR YELLOW; URINE GLUCOSE (UA) NEGATIVE (NEGATIVE); URINE KETONE TRACE (NEGATIVE); URINE LEUK ESTERASE 1+ (NEGATIVE); URINE NITRITE NEGATIVE (NEGATIVE); URINE PROTEIN 1+ (NEGATIVE); URINE RBC 17 /uL (0-23.9); URINE WBC 95 /uL (0-25.8)
[2022-12-19] MEDS: ATORVASTATIN CA 40 MG TABLET (FP) PO SCH (21:39)
[2022-12-19] MEDS: TAMSULOSIN HCL 0.4 MG CAP PO SCH (21:39)
[2022-12-20] MEDS ORDERED: ALBUTEROL SO4 2.5/IPRATROPIUM 0.5 INH SOL 3 ML VIAL.NEB. NEB ONE (02:45)
[2022-12-20] MEDS: LEVOTHYROXINE NA 50 MCG TABLET (FP) PO SCH (06:12)
[2022-12-20 07:59] LABS: BASO % 0.6 % (0-2.0); EOS % 3.2 % (0-4.5); HEMATOCRIT 26.8 % (35.4-49); HEMOGLOBIN 8.6 GM/dL (11.7-16.9); LYMPH % 7.4 % (8-40); MCH 36.2 pg (25.7-33.7); MCHC 32.2 g/dl (32.0-35.9); MEAN CELL VOLUME 112.5 fl (80-96); MEAN PLT VOLUME 8.9 fl (7.5-11.1); MONO % 9.5 % (3.8-10.2); NEUT % 79.3 % (42.8-82.8); PLATELET COUNT 168 10^3/uL (134-434); RBC 2.38 M/mm3 (4.00-5.60); RDW 16.9 % (11.9-15.9); WHITE BLOOD COUNT 5.4 K/mm3 (4.0-10.0)
[2022-12-20] MEDS: ALBUTEROL SO4 2.5/IPRATROPIUM 0.5 INH SOL 3 ML VIAL.NEB. NEB SCH ×4 (08:10→20:28)
[2022-12-20 08:34] LABS: CALCIUM 8.4 mg/dL (8.5-10.1)
[2022-12-20 08:35] LABS: ALBUMIN 3.1 g/dl (3.4-5.0); BLOOD UREA NITROGEN 51.4 mg/dL (7-18); MAGNESIUM 1.7 mg/dL (1.8-2.4)
[2022-12-20 08:38] LABS: CREATININE 2.3 mg/dL (0.55-1.3)
[2022-12-20 08:40] LABS: BILIRUBIN,TOTAL 0.7 mg/dL (0.2-1); TOT PROT 5.9 g/dl (6.4-8.2)
[2022-12-20] MEDS: MULTIVITAMINS (DAILY MVI) TABLET (FP) PO SCH (09:50)
[2022-12-20] MEDS: ZINC SULFATE 220 MG CAPSULE (FP) PO SCH (09:50)
[2022-12-20] MEDS: DULoxetine HCL 30 MG CAPSULE.DR PO SCH (09:51)
[2022-12-20] MEDS: COLCHICINE 0.6 MG TAB PO SCH (09:51)
[2022-12-20] MEDS: CARBIDOPA/LEVODOPA 25/100 TABLET (FP) PO SCH ×2 (09:51→21:44)
[2022-12-20] MEDS: DIGOXIN 0.125 MG TABLET PO SCH (09:52)
[2022-12-20] MEDS: PANTOPRAZOLE 40 MG TABLET PO SCH (09:53)
[2022-12-20] MEDS: ASCORBIC ACID 250 MG TABLET (FP) PO SCH (09:53)
[2022-12-20] MEDS: SACUBITRIL/VALSARTAN 24 MG-26 MG TABLET PO SCH ×2 (09:53→21:44)
[2022-12-20] MEDS: HEPARIN NA (PORCINE) 5,000 UNITS/ML 1ML VIAL SQ SCH ×2 (09:53→21:46)
[2022-12-20] MEDS ORDERED: MAGNESIUM SULFATE IN WATER 2 GM/50 ML IVPB IVPB ONE (17:15)
[2022-12-20] MEDS: ATORVASTATIN CA 40 MG TABLET (FP) PO SCH (21:45)
[2022-12-20] MEDS: TAMSULOSIN HCL 0.4 MG CAP PO SCH (21:46)
[2022-12-21] MEDS: LEVOTHYROXINE NA 50 MCG TABLET (FP) PO SCH (06:11)
[2022-12-21] MEDS: ALBUTEROL SO4 2.5/IPRATROPIUM 0.5 INH SOL 3 ML VIAL.NEB. NEB SCH ×4 (07:56→19:43)
[2022-12-21] MEDS: DULoxetine HCL 30 MG CAPSULE.DR PO SCH (10:50)
[2022-12-21] MEDS: SACUBITRIL/VALSARTAN 24 MG-26 MG TABLET PO SCH ×2 (10:50→21:52)
[2022-12-21] MEDS: ASCORBIC ACID 250 MG TABLET (FP) PO SCH (10:50)
[2022-12-21] MEDS: metoPROLOL SUCCINATE 25 MG TAB.SR.24H (FP) PO SCH (10:50)
[2022-12-21] MEDS: COLCHICINE 0.6 MG TAB PO SCH (10:51)
[2022-12-21] MEDS: PANTOPRAZOLE 40 MG TABLET PO SCH (10:52)
[2022-12-21] MEDS: MULTIVITAMINS (DAILY MVI) TABLET (FP) PO SCH (10:52)
[2022-12-21] MEDS: HEPARIN NA (PORCINE) 5,000 UNITS/ML 1ML VIAL SQ SCH ×2 (10:52→21:53)
[2022-12-21] MEDS: CARBIDOPA/LEVODOPA 25/100 TABLET (FP) PO SCH ×2 (10:52→21:52)
[2022-12-21] MEDS: ZINC SULFATE 220 MG CAPSULE (FP) PO SCH (10:52)
[2022-12-21] MEDS ORDERED: FUROSEMIDE 40 MG/4 ML INJECTABLE VIAL IVPUSH ONE (11:18)
[2022-12-21] MEDS ORDERED: ALBUMIN HUMAN 25% 100 ML VIAL IV ONE (12:30)
[2022-12-21 13:30] LABS: BASO % 0.6 % (0-2.0); EOS % 2.6 % (0-4.5); HEMOGLOBIN 8.6 GM/dL (11.7-16.9); LYMPH % 7.8 % (8-40); MCH 35.2 pg (25.7-33.7); MCHC 31.6 g/dl (32.0-35.9); MEAN CELL VOLUME 111.2 fl (80-96); MONO % 8.5 % (3.8-10.2); NEUT % 80.5 % (42.8-82.8); PLATELET COUNT 188 10^3/uL (134-434); RBC 2.43 M/mm3 (4.00-5.60); RDW 17.5 % (11.9-15.9); WHITE BLOOD COUNT 5.7 K/mm3 (4.0-10.0)
[2022-12-21 14:09] LABS: CALCIUM 8.8 mg/dL (8.5-10.1)
[2022-12-21 14:10] LABS: ALBUMIN 3.2 g/dl (3.4-5.0); CREATININE 2.1 mg/dL (0.55-1.3); MAGNESIUM 2.1 mg/dL (1.8-2.4)
[2022-12-21 14:12] LABS: PHOSPHOROUS 2.9 mg/dL (2.5-4.9)
[2022-12-21 14:13] LABS: TOT PROT 6.2 g/dl (6.4-8.2)
[2022-12-21 14:14] LABS: BILIRUBIN,TOTAL 0.7 mg/dL (0.2-1)
[2022-12-21] MEDS: ATORVASTATIN CA 40 MG TABLET (FP) PO SCH (21:52)
[2022-12-21] MEDS: TAMSULOSIN HCL 0.4 MG CAP PO SCH (21:52)
[2022-12-22] MEDS: LEVOTHYROXINE NA 50 MCG TABLET (FP) PO SCH (06:24)
[2022-12-22] MEDS: ALBUTEROL SO4 2.5/IPRATROPIUM 0.5 INH SOL 3 ML VIAL.NEB. NEB SCH ×4 (07:15→20:05)
[2022-12-22 08:35] LABS: BASO % 0.6 % (0-2.0); EOS % 2.8 % (0-4.5); HEMATOCRIT 25.9 % (35.4-49); HEMOGLOBIN 8.2 GM/dL (11.7-16.9); LYMPH % 9.8 % (8-40); MCH 35.4 pg (25.7-33.7); MCHC 31.7 g/dl (32.0-35.9); MEAN CELL VOLUME 111.6 fl (80-96); MEAN PLT VOLUME 8.9 fl (7.5-11.1); MONO % 12.4 % (3.8-10.2); NEUT % 74.4 % (42.8-82.8); PLATELET COUNT 170 10^3/uL (134-434); RBC 2.32 M/mm3 (4.00-5.60); RDW 17.6 % (11.9-15.9); WHITE BLOOD COUNT 4.7 K/mm3 (4.0-10.0)
[2022-12-22 08:49] LABS: CALCIUM 9.1 mg/dL (8.5-10.1)
[2022-12-22 08:50] LABS: ALBUMIN 3.2 g/dl (3.4-5.0)
[2022-12-22 08:53] LABS: CREATININE 2.2 mg/dL (0.55-1.3)
[2022-12-22 08:55] LABS: BILIRUBIN,TOTAL 0.8 mg/dL (0.2-1)
[2022-12-22 09:37] LABS: ANISOCYTOSIS 1+; MACROCYTOSIS 1+
[2022-12-22] MEDS: metoPROLOL SUCCINATE 25 MG TAB.SR.24H (FP) PO SCH (09:59)
[2022-12-22] MEDS: CARBIDOPA/LEVODOPA 25/100 TABLET (FP) PO SCH ×2 (10:03→21:49)
[2022-12-22] MEDS: DULoxetine HCL 30 MG CAPSULE.DR PO SCH (10:03)
[2022-12-22] MEDS: COLCHICINE 0.6 MG TAB PO SCH (10:03)
[2022-12-22] MEDS: SACUBITRIL/VALSARTAN 24 MG-26 MG TABLET PO SCH ×2 (10:03→21:51)
[2022-12-22] MEDS: MULTIVITAMINS (DAILY MVI) TABLET (FP) PO SCH (10:03)
[2022-12-22] MEDS: ASCORBIC ACID 250 MG TABLET (FP) PO SCH (10:05)
[2022-12-22] MEDS: HEPARIN NA (PORCINE) 5,000 UNITS/ML 1ML VIAL SQ SCH ×2 (10:06→21:51)
[2022-12-22] MEDS: PANTOPRAZOLE 40 MG TABLET PO SCH (10:06)
[2022-12-22] MEDS: ZINC SULFATE 220 MG CAPSULE (FP) PO SCH (10:14)
[2022-12-22] MEDS: BANATROL PLUS POWDER PACKET PO SCH (21:48)
[2022-12-22] MEDS: TAMSULOSIN HCL 0.4 MG CAP PO SCH (21:49)
[2022-12-22] MEDS: ATORVASTATIN CA 40 MG TABLET (FP) PO SCH (21:49)
[2022-12-23] MEDS: BANATROL PLUS POWDER PACKET PO SCH ×3 (06:02→21:27)
[2022-12-23] MEDS: LEVOTHYROXINE NA 50 MCG TABLET (FP) PO SCH (06:02)
[2022-12-23] MEDS: ALBUTEROL SO4 2.5/IPRATROPIUM 0.5 INH SOL 3 ML VIAL.NEB. NEB SCH ×4 (08:46→20:08)
[2022-12-23] MEDS: ZINC SULFATE 220 MG CAPSULE (FP) PO SCH (11:02)
[2022-12-23] MEDS: PANTOPRAZOLE 40 MG TABLET PO SCH (11:02)
[2022-12-23] MEDS: CARBIDOPA/LEVODOPA 25/100 TABLET (FP) PO SCH ×2 (11:02→21:28)
[2022-12-23] MEDS: COLCHICINE 0.6 MG TAB PO SCH (11:02)
[2022-12-23] MEDS: metoPROLOL SUCCINATE 25 MG TAB.SR.24H (FP) PO SCH (11:04)
[2022-12-23] MEDS: DULoxetine HCL 30 MG CAPSULE.DR PO SCH (11:04)
[2022-12-23] MEDS: SACUBITRIL/VALSARTAN 24 MG-26 MG TABLET PO SCH ×2 (11:04→21:27)
[2022-12-23] MEDS: MULTIVITAMINS (DAILY MVI) TABLET (FP) PO SCH (11:05)
[2022-12-23] MEDS: ASCORBIC ACID 250 MG TABLET (FP) PO SCH (11:05)
[2022-12-23] MEDS: HEPARIN NA (PORCINE) 5,000 UNITS/ML 1ML VIAL SQ SCH ×2 (11:05→21:27)
[2022-12-23] MEDS: FUROSEMIDE 40 MG/4 ML INJECTABLE VIAL IVPUSH SCH (14:47)
[2022-12-23 15:31] LABS: BF WBC & OTHER NUCLEATED CELLS 209 /mm3
[2022-12-23 15:32] LABS: BODY FLUID MACROPHAGES 58 %; BODY FLUID MESOTHELIAL 7 %; BODY FLUID MONOCYTE 12 %
[2022-12-23 17:23] LABS: HEMATOCRIT 26.2 % (35.4-49); HEMOGLOBIN 8.2 GM/dL (11.7-16.9); MCH 34.9 pg (25.7-33.7); MCHC 31.2 g/dl (32.0-35.9); MEAN CELL VOLUME 111.9 fl (80-96); MEAN PLT VOLUME 8.4 fl (7.5-11.1); PLATELET COUNT 172 10^3/uL (134-434); RBC 2.34 M/mm3 (4.00-5.60); RDW 17.3 % (11.9-15.9); WHITE BLOOD COUNT 5.8 K/mm3 (4.0-10.0)
[2022-12-23 17:51] LABS: ALBUMIN 3.1 g/dl (3.4-5.0); BLOOD UREA NITROGEN 49.5 mg/dL (7-18); CALCIUM 9.4 mg/dL (8.5-10.1)
[2022-12-23 17:54] LABS: CREATININE 2.4 mg/dL (0.55-1.3)
[2022-12-23 17:56] LABS: BILIRUBIN,TOTAL 0.5 mg/dL (0.2-1)
[2022-12-23] MEDS: TAMSULOSIN HCL 0.4 MG CAP PO SCH (21:27)
[2022-12-23] MEDS: ATORVASTATIN CA 40 MG TABLET (FP) PO SCH (21:27)
[2022-12-24] MEDS: FUROSEMIDE 40 MG/4 ML INJECTABLE VIAL IVPUSH SCH ×2 (05:53→14:57)
[2022-12-24] MEDS: BANATROL PLUS POWDER PACKET PO SCH ×3 (05:53→22:08)
[2022-12-24] MEDS: LEVOTHYROXINE NA 50 MCG TABLET (FP) PO SCH (06:04)
[2022-12-24 07:18] LABS: HEMATOCRIT 25.7 % (35.4-49); HEMOGLOBIN 8.1 GM/dL (11.7-16.9); MCH 35.2 pg (25.7-33.7); MCHC 31.6 g/dl (32.0-35.9); MEAN CELL VOLUME 111.6 fl (80-96); MEAN PLT VOLUME 9.4 fl (7.5-11.1); PLATELET COUNT 183 10^3/uL (134-434); WHITE BLOOD COUNT 5.5 K/mm3 (4.0-10.0)
[2022-12-24] MEDS: ALBUTEROL SO4 2.5/IPRATROPIUM 0.5 INH SOL 3 ML VIAL.NEB. NEB SCH ×2 (07:34→11:32)
[2022-12-24 09:37] LABS: CALCIUM 9.5 mg/dL (8.5-10.1)
[2022-12-24 09:39] LABS: ALBUMIN 2.9 g/dl (3.4-5.0); BLOOD UREA NITROGEN 47.6 mg/dL (7-18)
[2022-12-24 09:41] LABS: CREATININE 2.2 mg/dL (0.55-1.3)
[2022-12-24 09:43] LABS: BILIRUBIN,TOTAL 0.5 mg/dL (0.2-1); TOT PROT 5.7 g/dl (6.4-8.2)
[2022-12-24] MEDS: metoPROLOL SUCCINATE 25 MG TAB.SR.24H (FP) PO SCH (11:59)
[2022-12-24] MEDS: ASCORBIC ACID 250 MG TABLET (FP) PO SCH (11:59)
[2022-12-24] MEDS: MULTIVITAMINS (DAILY MVI) TABLET (FP) PO SCH (11:59)
[2022-12-24] MEDS: SACUBITRIL/VALSARTAN 24 MG-26 MG TABLET PO SCH ×2 (11:59→22:09)
[2022-12-24] MEDS: COLCHICINE 0.6 MG TAB PO SCH (11:59)
[2022-12-24] MEDS: DULoxetine HCL 30 MG CAPSULE.DR PO SCH (12:00)
[2022-12-24] MEDS: HEPARIN NA (PORCINE) 5,000 UNITS/ML 1ML VIAL SQ SCH ×2 (12:00→22:08)
[2022-12-24] MEDS: ZINC SULFATE 220 MG CAPSULE (FP) PO SCH (12:00)
[2022-12-24] MEDS: PANTOPRAZOLE 40 MG TABLET PO SCH (12:00)
[2022-12-24] MEDS: CARBIDOPA/LEVODOPA 25/100 TABLET (FP) PO SCH ×2 (12:00→22:09)
[2022-12-24 13:10] LABS: BODY FLUID ALBUMIN 2.2 g/dL (Not Estab.)
[2022-12-24] MEDS: ATORVASTATIN CA 40 MG TABLET (FP) PO SCH (22:09)
[2022-12-24] MEDS: TAMSULOSIN HCL 0.4 MG CAP PO SCH (22:09)
[2022-12-24] MEDS ORDERED: ALBUTEROL SO4 2.5/IPRATROPIUM 0.5 INH SOL 3 ML VIAL.NEB. NEB PRN (22:43)
[2022-12-25] MEDS: BANATROL PLUS POWDER PACKET PO SCH ×3 (06:36→22:44)
[2022-12-25] MEDS: FUROSEMIDE 40 MG/4 ML INJECTABLE VIAL IVPUSH SCH ×2 (06:36→14:22)
[2022-12-25] MEDS: LEVOTHYROXINE NA 50 MCG TABLET (FP) PO SCH (06:36)
[2022-12-25 09:33] LABS: CALCIUM 9.4 mg/dL (8.5-10.1)
[2022-12-25 09:34] LABS: ALBUMIN 2.9 g/dl (3.4-5.0); BLOOD UREA NITROGEN 41.6 mg/dL (7-18)
[2022-12-25 09:38] LABS: BILIRUBIN,TOTAL 0.6 mg/dL (0.2-1); TOT PROT 5.7 g/dl (6.4-8.2)
[2022-12-25] MEDS: metoPROLOL SUCCINATE 25 MG TAB.SR.24H (FP) PO SCH (10:42)
[2022-12-25] MEDS: CARBIDOPA/LEVODOPA 25/100 TABLET (FP) PO SCH ×2 (10:42→21:00)
[2022-12-25] MEDS: DULoxetine HCL 30 MG CAPSULE.DR PO SCH (10:44)
[2022-12-25] MEDS: COLCHICINE 0.6 MG TAB PO SCH (10:44)
[2022-12-25] MEDS: ZINC SULFATE 220 MG CAPSULE (FP) PO SCH (10:44)
[2022-12-25] MEDS: HEPARIN NA (PORCINE) 5,000 UNITS/ML 1ML VIAL SQ SCH ×2 (10:44→21:01)
[2022-12-25] MEDS: SACUBITRIL/VALSARTAN 24 MG-26 MG TABLET PO SCH ×2 (10:44→21:05)
[2022-12-25] MEDS: MULTIVITAMINS (DAILY MVI) TABLET (FP) PO SCH (10:45)
[2022-12-25] MEDS: ASCORBIC ACID 250 MG TABLET (FP) PO SCH (10:47)
[2022-12-25] MEDS: PANTOPRAZOLE 40 MG TABLET PO SCH (10:48)
[2022-12-25] MEDS ORDERED: LOPERAMIDE HCL 2 MG CAPSULE PO ONE (12:40)
[2022-12-25] MEDS: ACETAMINOPHEN 325 MG TABLET (FP) PO PRN (20:57)
[2022-12-25] MEDS: ATORVASTATIN CA 40 MG TABLET (FP) PO SCH (21:00)
[2022-12-25] MEDS: TAMSULOSIN HCL 0.4 MG CAP PO SCH (21:01)
[2022-12-25] MEDS ORDERED: MAGNESIUM SULFATE IN WATER 2 GM/50 ML IVPB IVPB ONE (23:00)
[2022-12-26] MEDS: LEVOTHYROXINE NA 50 MCG TABLET (FP) PO SCH (06:03)
[2022-12-26] MEDS: FUROSEMIDE 40 MG/4 ML INJECTABLE VIAL IVPUSH SCH ×2 (06:03→14:28)
[2022-12-26] MEDS: BANATROL PLUS POWDER PACKET PO SCH ×3 (06:03→21:30)
[2022-12-26] MEDS: MULTIVITAMINS (DAILY MVI) TABLET (FP) PO SCH (11:24)
[2022-12-26] MEDS: CARBIDOPA/LEVODOPA 25/100 TABLET (FP) PO SCH ×2 (11:24→21:29)
[2022-12-26] MEDS: ASCORBIC ACID 250 MG TABLET (FP) PO SCH (11:24)
[2022-12-26] MEDS: metoPROLOL SUCCINATE 25 MG TAB.SR.24H (FP) PO SCH (11:25)
[2022-12-26] MEDS: PANTOPRAZOLE 40 MG TABLET PO SCH (11:25)
[2022-12-26] MEDS: ZINC SULFATE 220 MG CAPSULE (FP) PO SCH (11:25)
[2022-12-26] MEDS: DULoxetine HCL 30 MG CAPSULE.DR PO SCH (11:25)
[2022-12-26] MEDS: SACUBITRIL/VALSARTAN 24 MG-26 MG TABLET PO SCH ×2 (11:26→21:29)
[2022-12-26] MEDS: COLCHICINE 0.6 MG TAB PO SCH (11:26)
[2022-12-26] MEDS: ALBUTEROL SO4 2.5/IPRATROPIUM 0.5 INH SOL 3 ML VIAL.NEB. NEB SCH ×3 (13:41→20:04)
[2022-12-26 18:14] LABS: BLOOD UREA NITROGEN 36.9 mg/dL (7-18); CALCIUM 9.9 mg/dL (8.5-10.1)
[2022-12-26 18:15] LABS: ALBUMIN 3.2 g/dl (3.4-5.0)
[2022-12-26 18:18] LABS: CREATININE 1.9 mg/dL (0.55-1.3)
[2022-12-26 18:29] LABS: BILIRUBIN,TOTAL 0.6 mg/dL (0.2-1)
[2022-12-26] MEDS: TAMSULOSIN HCL 0.4 MG CAP PO SCH (21:29)
[2022-12-26] MEDS: ATORVASTATIN CA 40 MG TABLET (FP) PO SCH (21:29)
[2022-12-26] MEDS: ACETAMINOPHEN 325 MG TABLET (FP) PO PRN (21:41)
[2022-12-27] MEDS: ALBUTEROL SO4 2.5/IPRATROPIUM 0.5 INH SOL 3 ML VIAL.NEB. NEB SCH ×6 (00:30→20:23)
[2022-12-27] MEDS: LEVOTHYROXINE NA 50 MCG TABLET (FP) PO SCH (05:59)
[2022-12-27] MEDS: BANATROL PLUS POWDER PACKET PO SCH ×3 (05:59→21:39)
[2022-12-27] MEDS: FUROSEMIDE 40 MG/4 ML INJECTABLE VIAL IVPUSH SCH ×2 (05:59→13:13)
[2022-12-27] MEDS: DULoxetine HCL 30 MG CAPSULE.DR PO SCH (09:15)
[2022-12-27] MEDS: SACUBITRIL/VALSARTAN 24 MG-26 MG TABLET PO SCH ×2 (09:15→21:39)
[2022-12-27] MEDS: ZINC SULFATE 220 MG CAPSULE (FP) PO SCH (09:15)
[2022-12-27] MEDS: metoPROLOL SUCCINATE 25 MG TAB.SR.24H (FP) PO SCH (09:15)
[2022-12-27] MEDS: CARBIDOPA/LEVODOPA 25/100 TABLET (FP) PO SCH ×2 (09:15→21:40)
[2022-12-27] MEDS: VITAMIN B COMP W-C 1 EA TABLET (NEPHRO-VITE) PO SCH (09:16)
[2022-12-27] MEDS: PANTOPRAZOLE 40 MG TABLET PO SCH (09:16)
[2022-12-27] MEDS: ACETAMINOPHEN 325 MG TABLET (FP) PO PRN (21:40)
[2022-12-27] MEDS: TAMSULOSIN HCL 0.4 MG CAP PO SCH (21:40)
[2022-12-27] MEDS: ATORVASTATIN CA 40 MG TABLET (FP) PO SCH (21:40)
[2022-12-28] MEDS: ALBUTEROL SO4 2.5/IPRATROPIUM 0.5 INH SOL 3 ML VIAL.NEB. NEB SCH ×6 (00:10→20:08)
[2022-12-28] MEDS: FUROSEMIDE 40 MG/4 ML INJECTABLE VIAL IVPUSH SCH ×2 (06:34→13:26)
[2022-12-28] MEDS: BANATROL PLUS POWDER PACKET PO SCH ×3 (06:35→22:04)
[2022-12-28] MEDS: LEVOTHYROXINE NA 50 MCG TABLET (FP) PO SCH (06:35)
[2022-12-28] MEDS: metoPROLOL SUCCINATE 25 MG TAB.SR.24H (FP) PO SCH (09:17)
[2022-12-28] MEDS: VITAMIN B COMP W-C 1 EA TABLET (NEPHRO-VITE) PO SCH (09:19)
[2022-12-28] MEDS: ZINC SULFATE 220 MG CAPSULE (FP) PO SCH (09:19)
[2022-12-28] MEDS: PANTOPRAZOLE 40 MG TABLET PO SCH (09:19)
[2022-12-28] MEDS: SACUBITRIL/VALSARTAN 24 MG-26 MG TABLET PO SCH ×2 (09:19→22:05)
[2022-12-28] MEDS: DULoxetine HCL 30 MG CAPSULE.DR PO SCH (09:19)
[2022-12-28] MEDS: CARBIDOPA/LEVODOPA 25/100 TABLET (FP) PO SCH ×2 (09:20→22:04)
[2022-12-28] MEDS: ATORVASTATIN CA 40 MG TABLET (FP) PO SCH (22:04)
[2022-12-28] MEDS: TAMSULOSIN HCL 0.4 MG CAP PO SCH (22:05)
[2022-12-28] MEDS: ACETAMINOPHEN 325 MG TABLET (FP) PO PRN (22:08)
[2022-12-29] MEDS: ALBUTEROL SO4 2.5/IPRATROPIUM 0.5 INH SOL 3 ML VIAL.NEB. NEB SCH ×6 (00:11→20:05)
[2022-12-29] MEDS: BANATROL PLUS POWDER PACKET PO SCH ×3 (06:35→22:09)
[2022-12-29] MEDS: LEVOTHYROXINE NA 50 MCG TABLET (FP) PO SCH (06:35)
[2022-12-29] MEDS: FUROSEMIDE 40 MG/4 ML INJECTABLE VIAL IVPUSH SCH ×2 (06:35→14:43)
[2022-12-29] MEDS: metoPROLOL SUCCINATE 25 MG TAB.SR.24H (FP) PO SCH (09:44)
[2022-12-29] MEDS: CARBIDOPA/LEVODOPA 25/100 TABLET (FP) PO SCH ×2 (09:45→22:09)
[2022-12-29] MEDS: VITAMIN B COMP W-C 1 EA TABLET (NEPHRO-VITE) PO SCH (09:45)
[2022-12-29] MEDS: SACUBITRIL/VALSARTAN 24 MG-26 MG TABLET PO SCH ×2 (09:45→23:00)
[2022-12-29] MEDS: ZINC SULFATE 220 MG CAPSULE (FP) PO SCH (09:45)
[2022-12-29] MEDS: PANTOPRAZOLE 40 MG TABLET PO SCH (09:45)
[2022-12-29] MEDS: DULoxetine HCL 30 MG CAPSULE.DR PO SCH (09:45)
[2022-12-29] MEDS: ACETAMINOPHEN 325 MG TABLET (FP) PO PRN (12:00)
[2022-12-29] MEDS: LIPASE/PROTEASE/AMYLASE 36,000 UNIT CAPSULE PO SCH (17:50)
[2022-12-29] MEDS: ATORVASTATIN CA 40 MG TABLET (FP) PO SCH (22:09)
[2022-12-29] MEDS: TAMSULOSIN HCL 0.4 MG CAP PO SCH (22:09)
[2022-12-29] MEDS: RIFAXIMIN 550 MG TABLET PO SCH (22:09)
[2022-12-30] MEDS: ALBUTEROL SO4 2.5/IPRATROPIUM 0.5 INH SOL 3 ML VIAL.NEB. NEB SCH ×7 (04:00→23:50)
[2022-12-30] MEDS: LEVOTHYROXINE NA 50 MCG TABLET (FP) PO SCH (06:56)
[2022-12-30] MEDS: FUROSEMIDE 40 MG/4 ML INJECTABLE VIAL IVPUSH SCH ×2 (06:56→13:12)
[2022-12-30] MEDS: BANATROL PLUS POWDER PACKET PO SCH ×3 (06:57→22:33)
[2022-12-30 08:55] LABS: BASO % 0.8 % (0-2.0); EOS % 5.9 % (0-4.5); HEMATOCRIT 25.2 % (35.4-49); LYMPH % 14.4 % (8-40); MCH 34.6 pg (25.7-33.7); MCHC 31.9 g/dl (32.0-35.9); MEAN CELL VOLUME 108.5 fl (80-96); MEAN PLT VOLUME 8.4 fl (7.5-11.1); MONO % 6.9 % (3.8-10.2); PLATELET COUNT 202 10^3/uL (134-434); RBC 2.33 M/mm3 (4.00-5.60); RDW 16.2 % (11.9-15.9); WHITE BLOOD COUNT 5.7 K/mm3 (4.0-10.0)
[2022-12-30 09:22] LABS: BLOOD UREA NITROGEN 29.2 mg/dL (7-18); CALCIUM 9.4 mg/dL (8.5-10.1)
[2022-12-30 09:25] LABS: CREATININE 1.4 mg/dL (0.55-1.3)
[2022-12-30 09:26] LABS: BILIRUBIN,TOTAL 0.6 mg/dL (0.2-1); TOT PROT 5.9 g/dl (6.4-8.2)
[2022-12-30] MEDS: DULoxetine HCL 30 MG CAPSULE.DR PO SCH (10:04)
[2022-12-30] MEDS: ZINC SULFATE 220 MG CAPSULE (FP) PO SCH (10:04)
[2022-12-30] MEDS: CARBIDOPA/LEVODOPA 25/100 TABLET (FP) PO SCH ×2 (10:05→22:34)
[2022-12-30] MEDS: metoPROLOL SUCCINATE 25 MG TAB.SR.24H (FP) PO SCH (10:05)
[2022-12-30] MEDS: PANTOPRAZOLE 40 MG TABLET PO SCH (10:05)
[2022-12-30] MEDS: RIFAXIMIN 550 MG TABLET PO SCH (10:05)
[2022-12-30] MEDS: VITAMIN B COMP W-C 1 EA TABLET (NEPHRO-VITE) PO SCH (10:05)
[2022-12-30] MEDS: LIPASE/PROTEASE/AMYLASE 36,000 UNIT CAPSULE PO SCH ×3 (10:06→17:30)
[2022-12-30] MEDS: SACUBITRIL/VALSARTAN 24 MG-26 MG TABLET PO SCH ×2 (10:06→22:34)
[2022-12-30 10:49] LABS: ANISOCYTOSIS 1+; MACROCYTOSIS 2+; OVALOCYTE 1+
[2022-12-30] MEDS: metroNIDAZOLE 250 MG TABLET PO SCH ×2 (13:17→22:34)
[2022-12-30] MEDS ORDERED: POTASSIUM CHLORIDE ORAL LIQUID 20 MEQ/15 ML PO ONE (15:13)
[2022-12-30] MEDS: DABIGATRAN ETEXILATE MESYLATE 75 MG CAPSULE PO SCH (17:29)
[2022-12-30] MEDS: SILVER SULFADIAZINE 1% TOP CREAM 50 GM JAR TP SCH (22:34)
[2022-12-30] MEDS: TAMSULOSIN HCL 0.4 MG CAP PO SCH (22:34)
[2022-12-30] MEDS: ATORVASTATIN CA 40 MG TABLET (FP) PO SCH (22:34)
[2022-12-31] MEDS: ALBUTEROL SO4 2.5/IPRATROPIUM 0.5 INH SOL 3 ML VIAL.NEB. NEB SCH ×3 (04:45→11:39)
[2022-12-31] MEDS: BANATROL PLUS POWDER PACKET PO SCH ×3 (05:21→22:23)
[2022-12-31] MEDS: metroNIDAZOLE 250 MG TABLET PO SCH ×3 (05:21→22:25)
[2022-12-31] MEDS: FUROSEMIDE 40 MG TABLET (FP) PO SCH ×2 (05:57→13:43)
[2022-12-31] MEDS: LEVOTHYROXINE NA 50 MCG TABLET (FP) PO SCH (06:00)
[2022-12-31] MEDS: LIPASE/PROTEASE/AMYLASE 36,000 UNIT CAPSULE PO SCH ×3 (09:56→16:37)
[2022-12-31] MEDS: SACUBITRIL/VALSARTAN 24 MG-26 MG TABLET PO SCH ×2 (09:59→22:56)
[2022-12-31] MEDS: ZINC SULFATE 220 MG CAPSULE (FP) PO SCH (10:01)
[2022-12-31] MEDS: DULoxetine HCL 30 MG CAPSULE.DR PO SCH (10:01)
[2022-12-31] MEDS: VITAMIN B COMP W-C 1 EA TABLET (NEPHRO-VITE) PO SCH (10:01)
[2022-12-31] MEDS: metoPROLOL SUCCINATE 25 MG TAB.SR.24H (FP) PO SCH (10:01)
[2022-12-31] MEDS: CARBIDOPA/LEVODOPA 25/100 TABLET (FP) PO SCH ×2 (10:02→22:24)
[2022-12-31] MEDS: DABIGATRAN ETEXILATE MESYLATE 75 MG CAPSULE PO SCH ×2 (10:02→22:23)
[2022-12-31] MEDS: SILVER SULFADIAZINE 1% TOP CREAM 50 GM JAR TP SCH ×2 (10:02→22:24)
[2022-12-31] MEDS: PANTOPRAZOLE 40 MG TABLET PO SCH (10:02)
[2022-12-31 10:41] LABS: ALBUMIN 3.1 g/dl (3.4-5.0); BLOOD UREA NITROGEN 29.1 mg/dL (7-18); CALCIUM 9.5 mg/dL (8.5-10.1)
[2022-12-31 10:44] LABS: CREATININE 1.5 mg/dL (0.55-1.3)
[2022-12-31 10:46] LABS: BILIRUBIN,TOTAL 0.5 mg/dL (0.2-1); TOT PROT 6.3 g/dl (6.4-8.2)
[2022-12-31] MEDS: LOPERAMIDE HCL 2 MG CAPSULE PO SCH (16:37)
[2022-12-31] MEDS: ATORVASTATIN CA 40 MG TABLET (FP) PO SCH (22:23)
[2022-12-31] MEDS: TAMSULOSIN HCL 0.4 MG CAP PO SCH (22:25)
[2023-01-01] MEDS: metroNIDAZOLE 250 MG TABLET PO SCH ×3 (06:17→22:44)
[2023-01-01] MEDS: BANATROL PLUS POWDER PACKET PO SCH ×3 (06:17→22:44)
[2023-01-01] MEDS: LEVOTHYROXINE NA 50 MCG TABLET (FP) PO SCH (06:17)
[2023-01-01] MEDS: FUROSEMIDE 40 MG TABLET (FP) PO SCH ×2 (06:17→14:48)
[2023-01-01 08:07] LABS: ALBUMIN 2.9 g/dl (3.4-5.0); BLOOD UREA NITROGEN 27.3 mg/dL (7-18); CALCIUM 9.4 mg/dL (8.5-10.1)
[2023-01-01 08:10] LABS: CREATININE 1.3 mg/dL (0.55-1.3)
[2023-01-01 08:12] LABS: BILIRUBIN,TOTAL 0.6 mg/dL (0.2-1); TOT PROT 5.7 g/dl (6.4-8.2)
[2023-01-01 08:50] LABS: BASO % 0.7 % (0-2.0); EOS % 7.5 % (0-4.5); HEMATOCRIT 23.8 % (35.4-49); HEMOGLOBIN 7.8 GM/dL (11.7-16.9); LYMPH % 10.9 % (8-40); MCH 34.6 pg (25.7-33.7); MCHC 32.8 g/dl (32.0-35.9); MEAN CELL VOLUME 105.5 fl (80-96); MEAN PLT VOLUME 9.2 fl (7.5-11.1); MONO % 7.8 % (3.8-10.2); NEUT % 73.1 % (42.8-82.8); PLATELET COUNT 197 10^3/uL (134-434); RBC 2.25 M/mm3 (4.00-5.60); RDW 16.4 % (11.9-15.9); WHITE BLOOD COUNT 5.3 K/mm3 (4.0-10.0)
[2023-01-01] MEDS ORDERED: SODIUM PHOSPHATE/NA BIPHOS 133 ML ENEMA RC ONE (10:04)
[2023-01-01] MEDS: DABIGATRAN ETEXILATE MESYLATE 75 MG CAPSULE PO SCH ×2 (10:08→22:45)
[2023-01-01] MEDS: DULoxetine HCL 30 MG CAPSULE.DR PO SCH (10:08)
[2023-01-01] MEDS: VITAMIN B COMP W-C 1 EA TABLET (NEPHRO-VITE) PO SCH (10:08)
[2023-01-01] MEDS: metoPROLOL SUCCINATE 25 MG TAB.SR.24H (FP) PO SCH (10:08)
[2023-01-01] MEDS: CARBIDOPA/LEVODOPA 25/100 TABLET (FP) PO SCH ×2 (10:08→22:46)
[2023-01-01] MEDS: PANTOPRAZOLE 40 MG TABLET PO SCH (10:08)
[2023-01-01] MEDS: SACUBITRIL/VALSARTAN 24 MG-26 MG TABLET PO SCH ×2 (10:08→22:44)
[2023-01-01] MEDS: ZINC SULFATE 220 MG CAPSULE (FP) PO SCH (10:08)
[2023-01-01] MEDS: LIPASE/PROTEASE/AMYLASE 36,000 UNIT CAPSULE PO SCH ×3 (10:09→22:43)
[2023-01-01] MEDS: SILVER SULFADIAZINE 1% TOP CREAM 50 GM JAR TP SCH ×2 (10:09→22:46)
[2023-01-01] MEDS: LOPERAMIDE HCL 2 MG CAPSULE PO SCH (10:10)
[2023-01-01] MEDS ORDERED: ALBUTEROL SO4 2.5/IPRATROPIUM 0.5 INH SOL 3 ML VIAL.NEB. NEB ONE (11:30)
[2023-01-01] MEDS: TAMSULOSIN HCL 0.4 MG CAP PO SCH (22:44)
[2023-01-01] MEDS: ATORVASTATIN CA 40 MG TABLET (FP) PO SCH (22:45)
[2023-01-01] MEDS: COLCHICINE 0.6 MG CAP PO SCH (22:51)
[2023-01-02] MEDS: ACETAMINOPHEN 325 MG TABLET (FP) PO PRN ×2 (01:59→23:49)
[2023-01-02] MEDS: LEVOTHYROXINE NA 50 MCG TABLET (FP) PO SCH (06:59)
[2023-01-02] MEDS: BANATROL PLUS POWDER PACKET PO SCH ×3 (06:59→22:32)
[2023-01-02] MEDS: FUROSEMIDE 40 MG TABLET (FP) PO SCH ×2 (07:00→15:22)
[2023-01-02] MEDS: metroNIDAZOLE 250 MG TABLET PO SCH ×3 (07:00→22:32)
[2023-01-02 07:49] LABS: HEMATOCRIT 22.9 % (35.4-49); HEMOGLOBIN 7.5 GM/dL (11.7-16.9); MCH 34.8 pg (25.7-33.7); MCHC 32.7 g/dl (32.0-35.9); MEAN CELL VOLUME 106.5 fl (80-96); MEAN PLT VOLUME 8.7 fl (7.5-11.1); PLATELET COUNT 197 10^3/uL (134-434); RBC 2.15 M/mm3 (4.00-5.60); RDW 16.4 % (11.9-15.9); WHITE BLOOD COUNT 5.3 K/mm3 (4.0-10.0)
[2023-01-02] MEDS: LIPASE/PROTEASE/AMYLASE 36,000 UNIT CAPSULE PO SCH ×3 (08:18→17:55)
[2023-01-02 08:35] LABS: CALCIUM 9.4 mg/dL (8.5-10.1)
[2023-01-02 08:36] LABS: ALBUMIN 2.9 g/dl (3.4-5.0); BLOOD UREA NITROGEN 36.5 mg/dL (7-18)
[2023-01-02] MEDS ORDERED: SODIUM PHOSPHATE/NA BIPHOS 133 ML ENEMA RC ONE (08:38)
[2023-01-02 08:39] LABS: CREATININE 1.5 mg/dL (0.55-1.3)
[2023-01-02 08:40] LABS: BILIRUBIN,TOTAL 1.3 mg/dL (0.2-1); TOT PROT 5.8 g/dl (6.4-8.2)
[2023-01-02] MEDS: COLCHICINE 0.6 MG CAP PO SCH (10:44)
[2023-01-02] MEDS: SACUBITRIL/VALSARTAN 24 MG-26 MG TABLET PO SCH ×2 (10:44→22:35)
[2023-01-02] MEDS: DULoxetine HCL 30 MG CAPSULE.DR PO SCH (10:46)
[2023-01-02] MEDS: ZINC SULFATE 220 MG CAPSULE (FP) PO SCH (10:46)
[2023-01-02] MEDS: metoPROLOL SUCCINATE 25 MG TAB.SR.24H (FP) PO SCH (10:46)
[2023-01-02] MEDS: CARBIDOPA/LEVODOPA 25/100 TABLET (FP) PO SCH ×2 (10:47→22:34)
[2023-01-02] MEDS: PANTOPRAZOLE 40 MG TABLET PO SCH (10:47)
[2023-01-02] MEDS: VITAMIN B COMP W-C 1 EA TABLET (NEPHRO-VITE) PO SCH (10:47)
[2023-01-02] MEDS: DABIGATRAN ETEXILATE MESYLATE 75 MG CAPSULE PO SCH ×2 (10:47→22:34)
[2023-01-02] MEDS: ALBUTEROL SO4 2.5/IPRATROPIUM 0.5 INH SOL 3 ML VIAL.NEB. NEB PRN (17:02)
[2023-01-02] MEDS: SILVER SULFADIAZINE 1% TOP CREAM 50 GM JAR TP SCH ×2 (18:44→22:36)
[2023-01-02] MEDS ORDERED: TAMSULOSIN HCL 0.4 MG CAP PO SCH (22:00)
[2023-01-02] MEDS ORDERED: ATORVASTATIN CA 40 MG TABLET (FP) PO SCH (22:00)
[2023-01-03] MEDS: BANATROL PLUS POWDER PACKET PO SCH (05:34)
[2023-01-03] MEDS: FUROSEMIDE 40 MG TABLET (FP) PO SCH (05:35)
[2023-01-03] MEDS: metroNIDAZOLE 250 MG TABLET PO SCH (05:35)
[2023-01-03] MEDS ORDERED: LEVOTHYROXINE NA 50 MCG TABLET (FP) PO SCH (07:00)
[2023-01-03] MEDS: ALBUTEROL SO4 2.5/IPRATROPIUM 0.5 INH SOL 3 ML VIAL.NEB. NEB PRN (08:10)
[2023-01-03] MEDS ORDERED: metoPROLOL SUCCINATE 25 MG TAB.SR.24H (FP) PO SCH (10:00)
[2023-01-03] MEDS ORDERED: PANTOPRAZOLE 40 MG TABLET PO SCH (10:00)
[2023-01-03] MEDS ORDERED: DULoxetine HCL 30 MG CAPSULE.DR PO SCH (10:00)
[2023-01-03] MEDS: LIPASE/PROTEASE/AMYLASE 36,000 UNIT CAPSULE PO SCH ×2 (10:31→11:01)
[2023-01-03] MEDS: COLCHICINE 0.6 MG CAP PO SCH (10:55)
[2023-01-03] MEDS: SACUBITRIL/VALSARTAN 24 MG-26 MG TABLET PO SCH (10:56)
[2023-01-03] MEDS: VITAMIN B COMP W-C 1 EA TABLET (NEPHRO-VITE) PO SCH (10:57)
[2023-01-03] MEDS: DABIGATRAN ETEXILATE MESYLATE 75 MG CAPSULE PO SCH (10:57)
[2023-01-03] MEDS: CARBIDOPA/LEVODOPA 25/100 TABLET (FP) PO SCH (10:57)
[2023-01-03 11:17] VITALS: BP 117/68; PULSE 95; RESP 18; TEMP 97.8
== END 2023-01-03 17:29 | DRG 291 ==
LOC: JER 14:05 → JERBED 18:42 → J4S 22:51 → J7W 12-29 11:09
PROVIDERS: ADMIT Internal Medicine; ATTEND Internal Medicine
PROC: 0W9G3ZX Drainage of Peritoneal Cavity, Percutaneous Approach, Diagnostic (ICD-10-PCS; principal; 2022-12-23)
DX: I13.0 Hypertensive heart and chronic kidney disease with heart failure and stage 1 through stage 4 chronic kidney disease, or unspecified chronic kidney disease (principal); I50.33 Acute on chronic diastolic (congestive) heart failure; N17.9 Acute kidney failure, unspecified; R18.8 Other ascites; I24.8 Other forms of acute ischemic heart disease; J44.9 Chronic obstructive pulmonary disease, unspecified; E11.9 Type 2 diabetes mellitus without complications; I48.91 Unspecified atrial fibrillation; E78.5 Hyperlipidemia, unspecified; Z85.46 Personal history of malignant neoplasm of prostate; G20 Parkinson's disease; E83.42 Hypomagnesemia; E83.51 Hypocalcemia; M10.9 Gout, unspecified; D50.9 Iron deficiency anemia, unspecified; N18.9 Chronic kidney disease, unspecified; F32.A Depression, unspecified; E03.9 Hypothyroidism, unspecified; K59.00 Constipation, unspecified; I25.119 Atherosclerotic heart disease of native coronary artery with unspecified angina pectoris; Z95.5 Presence of coronary angioplasty implant and graft; R19.7 Diarrhea, unspecified
CPT/HCPCS: 0241U-QW; 36415; 71045-TC-FY; 74019-TC-FY; 74176-TC; 76705-TC; 76775-TC; 76942-TC; 80048; 80053; 80162; 81003; 82042; 82150; 82272; 82436; 82465; 82550; 82553; 82570; 82728; 82803; 82945; 82962; 83540; 83550; 83605; 83615; 83735; 83880; 83986; 83993; 84100; 84133; 84157; 84300; 84478; 84484; 84550; 85025; 85027; 85610; 86850; 86900; 86901; 87045; 87046; 87070; 87075; 87102; 87116; 87205; 87206; 87210; 87324; 87449; 88108; 88305-TC; 93005; 93010; 93306-TC; 93970-TC; 94640; 97116-GP; 99285-25; C9803-CS; J1644; U0003; U0005

== ENCOUNTER 2023-01-24 18:51 | Inpatient (IN) | payer OTHER ==
[2023-01-24] MEDS ORDERED: SODIUM CHLORIDE 0.9% 500 ML INFUS.BAG IV ONE (20:50)
[2023-01-24 21:34] LABS: CALCIUM 9.5 mg/dL (8.5-10.1)
[2023-01-24 21:35] LABS: ALBUMIN 3.7 g/dl (3.4-5.0); BLOOD UREA NITROGEN 85.5 mg/dL (7-18)
[2023-01-24 21:38] LABS: CREATININE 2.5 mg/dL (0.55-1.3)
[2023-01-24] MEDS ORDERED: PIPERACILLIN/TAZOB 4.5 GM 4.5 GM in DEXTROSE 5%-WATER 100 ML IVPB ONE (21:38)
[2023-01-24 21:39] LABS: BILIRUBIN,TOTAL 0.5 mg/dL (0.2-1); TOT PROT 6.7 g/dl (6.4-8.2)
[2023-01-24 21:40] LABS: BASO % 1.2 % (0-2.0); EOS % 8.7 % (0-4.5); HEMATOCRIT 28.5 % (35.4-49); HEMOGLOBIN 9.1 GM/dL (11.7-16.9); LYMPH % 12.6 % (8-40); MCH 33.4 pg (25.7-33.7); MCHC 31.9 g/dl (32.0-35.9); MEAN CELL VOLUME 104.5 fl (80-96); MONO % 8.3 % (3.8-10.2); NEUT % 69.2 % (42.8-82.8); PLATELET COUNT 212 10^3/uL (134-434); RBC 2.73 M/mm3 (4.00-5.60); WHITE BLOOD COUNT 4.9 K/mm3 (4.0-10.0)
[2023-01-24] MEDS ORDERED: PIPERACILLIN/TAZOB 4.5 GM 4.5 GM/100 ML BAG IVPB ONE (21:41)
[2023-01-24] MEDS ORDERED: LIDOCAINE HCL 1%, 10 MG/ML (50 mL VIAL) SQ ONE (21:57)
[2023-01-24 22:05] LABS: INR 1.6 (0.83-1.09); PROTHROMBIN TIME (PATIENT) 18.5 SEC (9.7-13.0)
[2023-01-24] MEDS ORDERED: LIDOCAINE HCL 1%, 10 MG/ML (10ML VIAL) MDV ONE (22:06)
[2023-01-24 22:07] LABS: ACTIVATED PTT 50.5 SECONDS (25.2-36.5)
[2023-01-24 22:13] LABS: MAGNESIUM 1.5 mg/dL (1.8-2.4)
[2023-01-25 00:52] LABS: BF WBC & OTHER NUCLEATED CELLS 127 /mm3
[2023-01-25] MEDS ORDERED: FUROSEMIDE 40 MG/4 ML INJECTABLE VIAL IVPUSH ONE (03:05)
[2023-01-25] MEDS ORDERED: SENNOSIDES 8.6MG TABLET (FP) PO PRN (03:37)
[2023-01-25] MEDS ORDERED: ACETAMINOPHEN 1000 MG/100 ML BAG IVPB ONE (04:44)
[2023-01-25] MEDS ORDERED: ACETAMINOPHEN INJECTION 100 ML IVPB ONE (04:47)
[2023-01-25] MEDS ORDERED: VANCOMYCIN/WATER 1,250 MG/250 ML BAG (RESTRICTED TO ID ONLY) IVPB SCH ×2 (06:00→06:15)
[2023-01-25 07:19] LABS: BODY FLUID MESOTHELIAL 10 %; BODY FLUID MONOCYTE 22 %
[2023-01-25] MEDS ORDERED: KCL 10 MEQ IVPB 20 MEQ/200 ML INFUS.BAG IVPB ONE (07:54)
[2023-01-25] MEDS ORDERED: POTASSIUM CHLORIDE ORAL LIQUID 20 MEQ/15 ML ONE (07:58)
[2023-01-25] MEDS: LIPASE/PROTEASE/AMYLASE 36,000 UNIT CAPSULE PO SCH ×3 (09:15→18:28)
[2023-01-25] MEDS ORDERED: PANTOPRAZOLE 40 MG TABLET PO ONE (10:59)
[2023-01-25] MEDS ORDERED: CHOLECALCIFEROL (VIT D3) 1,000 UNIT (25 MCG) TABLET ONE (10:59)
[2023-01-25] MEDS ORDERED: ZINC SULFATE 220 MG CAPSULE (FP) ONE (10:59)
[2023-01-25] MEDS ORDERED: POLYETHYLENE GLYCOL (HEALTHYLAX) 3350 17 GM PACKET ONE (10:59)
[2023-01-25] MEDS ORDERED: TAMSULOSIN HCL 0.4 MG CAP ONE ×2 (11:00→21:17)
[2023-01-25] MEDS ORDERED: LEVOTHYROXINE NA 50 MCG TABLET (FP) ONE (11:00)
[2023-01-25] MEDS ORDERED: CARBIDOPA/LEVODOPA 25/100 TABLET (FP) ONE ×2 (11:00→21:17)
[2023-01-25] MEDS ORDERED: FERROUS SO4 325 MG TABLET (FP) ONE (11:00)
[2023-01-25] MEDS ORDERED: metoPROLOL SUCCINATE 25 MG TAB.SR.24H (FP) PO ONE (11:00)
[2023-01-25] MEDS ORDERED: COLCHICINE 0.6 MG TAB ONE (11:00)
[2023-01-25] MEDS ORDERED: PIPERACILLIN/TAZOB 2.25 GM 2.25 GM/50 ML BAG IVPB ONE ×3 (11:00→21:17)
[2023-01-25] MEDS ORDERED: DULoxetine HCL 30 MG CAPSULE.DR PO ONE (11:00)
[2023-01-25] MEDS ORDERED: VANCOMYCIN/WATER 1250 MG 1,250 MG/250 ML BAG IVPB ONE (11:01)
[2023-01-25] MEDS: LEVOTHYROXINE NA 50 MCG TABLET (FP) PO SCH (11:37)
[2023-01-25] MEDS: PANTOPRAZOLE 40 MG TABLET PO SCH (11:38)
[2023-01-25] MEDS: CARBIDOPA/LEVODOPA 25/100 TABLET (FP) PO SCH ×2 (11:38→21:39)
[2023-01-25] MEDS: VITAMIN B COMP W-C 1 EA TABLET (NEPHRO-VITE) PO SCH (11:38)
[2023-01-25] MEDS: PIPERACILLIN/TAZOB 2.25 GM 2.25 GM in DEXTROSE 5%-WATER - 50 ML IVPB SCH ×4 (11:38→21:39)
[2023-01-25] MEDS: FERROUS SO4 325 MG TABLET (FP) PO SCH (11:38)
[2023-01-25] MEDS: metoPROLOL SUCCINATE 25 MG TAB.SR.24H (FP) PO SCH (11:38)
[2023-01-25] MEDS: ZINC SULFATE 220 MG CAPSULE (FP) PO SCH (11:38)
[2023-01-25] MEDS: CHOLECALCIFEROL (VIT D3) 1,000 UNIT (25 MCG) TABLET PO SCH (11:38)
[2023-01-25] MEDS: POLYETHYLENE GLYCOL (HEALTHYLAX) 3350 17 GM PACKET PO SCH (11:38)
[2023-01-25] MEDS: DULoxetine HCL 30 MG CAPSULE.DR PO SCH (11:38)
[2023-01-25] MEDS: MAG HYDROX/AL HYDROX/SIMETH 30 ML UNIT-DOSE CUP PO SCH ×4 (11:38→21:39)
[2023-01-25] MEDS: COLCHICINE 0.6 MG TAB PO SCH (11:39)
[2023-01-25] MEDS ORDERED: dilTIAZem HCL 125 MG/25 ML - 25 ML VIAL ONE (12:44)
[2023-01-25] MEDS ORDERED: dilTIAZem HCL 50 MG/10 ML - 10 ML VIAL IVPUSH ONE (13:04)
[2023-01-25] MEDS: ALBUTEROL SO4 2.5/IPRATROPIUM 0.5 INH SOL 3 ML VIAL.NEB. NEB PRN ×2 (16:59→21:39)
[2023-01-25] MEDS ORDERED: MELATONIN 5 MG TABLETS ONE (21:16)
[2023-01-25] MEDS ORDERED: ATORVASTATIN CA 40 MG TABLET (FP) ONE (21:16)
[2023-01-25] MEDS ORDERED: HEPARIN NA (PORCINE) 5,000 UNITS/ML 1ML VIAL ONE (21:17)
[2023-01-25] MEDS ORDERED: MAG HYDROX/AL HYDROX/SIMETH 30 ML UNIT-DOSE CUP ONE (21:17)
[2023-01-25] MEDS ORDERED: ALBUTEROL SO4 2.5/IPRATROPIUM 0.5 INH SOL 3 ML VIAL.NEB. NEB ONE (21:35)
[2023-01-25] MEDS: MELATONIN 1 MG TABLET PO SCH (21:39)
[2023-01-25] MEDS: HEPARIN NA (PORCINE) 5,000 UNITS/ML 1ML VIAL SQ SCH (21:39)
[2023-01-25] MEDS: ATORVASTATIN CA 40 MG TABLET (FP) PO SCH (21:39)
[2023-01-25] MEDS: TAMSULOSIN HCL 0.4 MG CAP PO SCH (21:39)
[2023-01-25] MEDS: RIFAXIMIN 550 MG TABLET PO SCH (22:30)
[2023-01-26] MEDS ORDERED: PIPERACILLIN/TAZOB 2.25 GM 2.25 GM in DEXTROSE 5%-WATER - 50 ML IVPB SCH ×2 (03:00→18:00)
[2023-01-26] MEDS: ALBUTEROL SO4 2.5/IPRATROPIUM 0.5 INH SOL 3 ML VIAL.NEB. NEB PRN ×3 (03:07→17:52)
[2023-01-26] MEDS ORDERED: PIPERACILLIN/TAZOB 2.25 GM 2.25 GM/50 ML BAG IVPB ONE (04:15)
[2023-01-26] MEDS: PIPERACILLIN/TAZOB 2.25 GM 2.25 GM in DEXTROSE 5%-WATER - 50 ML IVPB SCH ×2 (04:19→17:52)
[2023-01-26] MEDS ORDERED: VANCOMYCIN/WATER 1,250 MG/250 ML BAG (RESTRICTED TO ID ONLY) IVPB SCH (06:00)
[2023-01-26] MEDS ORDERED: LEVOTHYROXINE NA 50 MCG TABLET (FP) ONE (08:28)
[2023-01-26] MEDS ORDERED: ALBUTEROL SO4 2.5/IPRATROPIUM 0.5 INH SOL 3 ML VIAL.NEB. NEB ONE ×2 (08:36→08:37)
[2023-01-26] MEDS: LEVOTHYROXINE NA 50 MCG TABLET (FP) PO SCH (08:47)
[2023-01-26] MEDS ORDERED: PANTOPRAZOLE 40 MG TABLET PO ONE (09:14)
[2023-01-26] MEDS ORDERED: POLYETHYLENE GLYCOL (HEALTHYLAX) 3350 17 GM PACKET ONE (09:14)
[2023-01-26] MEDS ORDERED: ZINC SULFATE 220 MG CAPSULE (FP) ONE (09:14)
[2023-01-26] MEDS ORDERED: DULoxetine HCL 30 MG CAPSULE.DR PO ONE (09:15)
[2023-01-26] MEDS ORDERED: CARBIDOPA/LEVODOPA 25/100 TABLET (FP) ONE (09:15)
[2023-01-26] MEDS ORDERED: CHOLECALCIFEROL (VIT D3) 1,000 UNIT (25 MCG) TABLET ONE (09:15)
[2023-01-26] MEDS ORDERED: FERROUS SO4 325 MG TABLET (FP) ONE (09:15)
[2023-01-26] MEDS ORDERED: COLCHICINE 0.6 MG TAB ONE (09:15)
[2023-01-26] MEDS ORDERED: MAG HYDROX/AL HYDROX/SIMETH 30 ML UNIT-DOSE CUP ONE ×2 (09:16→13:53)
[2023-01-26] MEDS ORDERED: HEPARIN NA (PORCINE) 5,000 UNITS/ML 1ML VIAL ONE (09:16)
[2023-01-26] MEDS: FERROUS SO4 325 MG TABLET (FP) PO SCH (10:56)
[2023-01-26] MEDS: HEPARIN NA (PORCINE) 5,000 UNITS/ML 1ML VIAL SQ SCH ×2 (10:56→22:35)
[2023-01-26] MEDS: POLYETHYLENE GLYCOL (HEALTHYLAX) 3350 17 GM PACKET PO SCH (10:56)
[2023-01-26] MEDS: DULoxetine HCL 30 MG CAPSULE.DR PO SCH (10:56)
[2023-01-26] MEDS: LIPASE/PROTEASE/AMYLASE 36,000 UNIT CAPSULE PO SCH ×3 (10:56→17:54)
[2023-01-26] MEDS: COLCHICINE 0.6 MG TAB PO SCH (10:56)
[2023-01-26] MEDS: PANTOPRAZOLE 40 MG TABLET PO SCH (10:57)
[2023-01-26] MEDS: CHOLECALCIFEROL (VIT D3) 1,000 UNIT (25 MCG) TABLET PO SCH (10:57)
[2023-01-26] MEDS: RIFAXIMIN 550 MG TABLET PO SCH ×2 (10:57→22:44)
[2023-01-26] MEDS: metoPROLOL SUCCINATE 25 MG TAB.SR.24H (FP) PO SCH (10:57)
[2023-01-26] MEDS: MAG HYDROX/AL HYDROX/SIMETH 30 ML UNIT-DOSE CUP PO SCH ×4 (10:57→22:35)
[2023-01-26] MEDS: VITAMIN B COMP W-C 1 EA TABLET (NEPHRO-VITE) PO SCH (10:57)
[2023-01-26] MEDS: ZINC SULFATE 220 MG CAPSULE (FP) PO SCH (10:57)
[2023-01-26] MEDS: CARBIDOPA/LEVODOPA 25/100 TABLET (FP) PO SCH ×2 (10:57→22:35)
[2023-01-26] MEDS ORDERED: FUROSEMIDE 40 MG/4 ML INJECTABLE VIAL ONE (16:24)
[2023-01-26] MEDS: FUROSEMIDE 40 MG/4 ML INJECTABLE VIAL IVPUSH SCH (16:24)
[2023-01-26] MEDS ORDERED: CEFTRIAXONE 1 GM in DEXTROSE 5%-WATER - 50 ML IVPB SCH (16:30)
[2023-01-26] MEDS ORDERED: SODIUM CHLORIDE 500 ML IV SCH (16:45)
[2023-01-26 21:53] LABS: CALCIUM 9.1 mg/dL (8.5-10.1)
[2023-01-26 21:54] LABS: BLOOD UREA NITROGEN 85.6 mg/dL (7-18); MAGNESIUM 1.6 mg/dL (1.8-2.4)
[2023-01-26 21:57] LABS: CREATININE 2.6 mg/dL (0.55-1.3); PHOSPHOROUS 3.6 mg/dL (2.5-4.9)
[2023-01-26] MEDS: MELATONIN 1 MG TABLET PO SCH (22:34)
[2023-01-26] MEDS: TAMSULOSIN HCL 0.4 MG CAP PO SCH (22:34)
[2023-01-26] MEDS: ATORVASTATIN CA 40 MG TABLET (FP) PO SCH (22:35)
[2023-01-27] MEDS: ALBUTEROL SO4 2.5/IPRATROPIUM 0.5 INH SOL 3 ML VIAL.NEB. NEB PRN ×7 (01:27→23:17)
[2023-01-27] MEDS: PIPERACILLIN/TAZOB 2.25 GM 2.25 GM in DEXTROSE 5%-WATER - 50 ML IVPB SCH ×2 (02:36→10:30)
[2023-01-27] MEDS: LEVOTHYROXINE NA 50 MCG TABLET (FP) PO SCH (06:19)
[2023-01-27] MEDS: LIPASE/PROTEASE/AMYLASE 36,000 UNIT CAPSULE PO SCH ×3 (07:51→17:50)
[2023-01-27 08:00] LABS: CHLORIDE 110 mmol/L (98-107); SODIUM 144 mmol/L (136-145)
[2023-01-27 08:02] LABS: CALCIUM 9.4 mg/dL (8.5-10.1)
[2023-01-27 08:03] LABS: ALBUMIN 3.2 g/dl (3.4-5.0); ANION GAP 7 MMOL/L (8-16); BLOOD UREA NITROGEN 82.5 mg/dL (7-18); CO2 27 mmol/L (21-32); GLUCOSE,RANDOM 98 mg/dL (74-106)
[2023-01-27 08:06] LABS: CREATININE 2.6 mg/dL (0.55-1.3); SGOT/AST 10 U/L (15-37)
[2023-01-27 08:07] LABS: BILIRUBIN,TOTAL 0.7 mg/dL (0.2-1)
[2023-01-27 08:08] LABS: TOT PROT 6.1 g/dl (6.4-8.2)
[2023-01-27 08:09] LABS: ALK PHOS 89 U/L (45-117)
[2023-01-27 08:10] LABS: BASO % 0.6 % (0-2.0); HEMOGLOBIN 8.9 GM/dL (11.7-16.9); LYMPH % 7.4 % (8-40); MCH 33.5 pg (25.7-33.7); MCHC 31.7 g/dl (32.0-35.9); MEAN CELL VOLUME 105.6 fl (80-96); MEAN PLT VOLUME 9.3 fl (7.5-11.1); MONO % 7.1 % (3.8-10.2); NEUT % 75.9 % (42.8-82.8); PLATELET COUNT 191 10^3/uL (134-434); RBC 2.65 M/mm3 (4.00-5.60); RDW 17.5 % (11.9-15.9); WHITE BLOOD COUNT 6.3 K/mm3 (4.0-10.0)
[2023-01-27 08:13] LABS: SGPT/ALT < 6 U/L (13-61)
[2023-01-27 09:02] LABS: ANISOCYTOSIS 1+; MACROCYTOSIS 1+
[2023-01-27] MEDS: ACETAMINOPHEN 325 MG TABLET (FP) PO PRN (10:28)
[2023-01-27] MEDS: ZINC SULFATE 220 MG CAPSULE (FP) PO SCH (10:29)
[2023-01-27] MEDS: POLYETHYLENE GLYCOL (HEALTHYLAX) 3350 17 GM PACKET PO SCH (10:29)
[2023-01-27] MEDS: CARBIDOPA/LEVODOPA 25/100 TABLET (FP) PO SCH ×2 (10:29→22:12)
[2023-01-27] MEDS: MAG HYDROX/AL HYDROX/SIMETH 30 ML UNIT-DOSE CUP PO SCH ×4 (10:29→22:15)
[2023-01-27] MEDS: PANTOPRAZOLE 40 MG TABLET PO SCH (10:29)
[2023-01-27] MEDS: COLCHICINE 0.6 MG TAB PO SCH (10:29)
[2023-01-27] MEDS: CHOLECALCIFEROL (VIT D3) 1,000 UNIT (25 MCG) TABLET PO SCH (10:30)
[2023-01-27] MEDS: metoPROLOL SUCCINATE 25 MG TAB.SR.24H (FP) PO SCH ×3 (10:30→18:47)
[2023-01-27] MEDS: VITAMIN B COMP W-C 1 EA TABLET (NEPHRO-VITE) PO SCH (10:30)
[2023-01-27] MEDS: DULoxetine HCL 30 MG CAPSULE.DR PO SCH (10:31)
[2023-01-27] MEDS: FERROUS SO4 325 MG TABLET (FP) PO SCH (10:31)
[2023-01-27] MEDS: HEPARIN NA (PORCINE) 5,000 UNITS/ML 1ML VIAL SQ SCH ×2 (10:31→22:11)
[2023-01-27] MEDS: FUROSEMIDE 40 MG/4 ML INJECTABLE VIAL IVPUSH SCH (10:31)
[2023-01-27] MEDS: RIFAXIMIN 550 MG TABLET PO SCH ×2 (11:07→22:12)
[2023-01-27 17:07] LABS: BODY FLUID ALBUMIN 2.3 g/dL (Not Estab.)
[2023-01-27] MEDS: ALBUMIN HUMAN 25% 100 ML VIAL IV SCH ×2 (17:13→22:06)
[2023-01-27] MEDS: METOPROLOL TARTRATE 5 MG/5 ML VIAL IVPUSH SCH ×2 (17:14→22:10)
[2023-01-27] MEDS: TAMSULOSIN HCL 0.4 MG CAP PO SCH (22:11)
[2023-01-27] MEDS: ATORVASTATIN CA 40 MG TABLET (FP) PO SCH (22:12)
[2023-01-27] MEDS: MELATONIN 1 MG TABLET PO SCH (22:12)
[2023-01-28] MEDS: METOPROLOL TARTRATE 5 MG/5 ML VIAL IVPUSH SCH ×6 (02:09→22:08)
[2023-01-28] MEDS: LEVOTHYROXINE NA 50 MCG TABLET (FP) PO SCH (06:18)
[2023-01-28 07:59] LABS: CHLORIDE 109 mmol/L (98-107); SODIUM 143 mmol/L (136-145)
[2023-01-28 08:02] LABS: ALBUMIN 3.5 g/dl (3.4-5.0); CALCIUM 9.3 mg/dL (8.5-10.1)
[2023-01-28 08:03] LABS: ANION GAP 8 MMOL/L (8-16); BLOOD UREA NITROGEN 81.4 mg/dL (7-18); CO2 26 mmol/L (21-32); GLUCOSE,RANDOM 86 mg/dL (74-106)
[2023-01-28 08:06] LABS: CREATININE 2.8 mg/dL (0.55-1.3); SGOT/AST 9 U/L (15-37)
[2023-01-28 08:07] LABS: BILIRUBIN,TOTAL 0.7 mg/dL (0.2-1); TOT PROT 6.1 g/dl (6.4-8.2)
[2023-01-28 08:08] LABS: ALK PHOS 80 U/L (45-117)
[2023-01-28] MEDS: LIPASE/PROTEASE/AMYLASE 36,000 UNIT CAPSULE PO SCH ×3 (08:11→17:43)
[2023-01-28 08:12] LABS: SGPT/ALT < 6 U/L (13-61)
[2023-01-28 08:18] LABS: BASO % 0.2 % (0-2.0); HEMATOCRIT 27.1 % (35.4-49); HEMOGLOBIN 8.7 GM/dL (11.7-16.9); LYMPH % 2.4 % (8-40); MCH 33.8 pg (25.7-33.7); MCHC 32.3 g/dl (32.0-35.9); MEAN CELL VOLUME 104.5 fl (80-96); MEAN PLT VOLUME 9.4 fl (7.5-11.1); NEUT % 85.4 % (42.8-82.8); PLATELET COUNT 184 10^3/uL (134-434); RBC 2.59 M/mm3 (4.00-5.60); RDW 17.1 % (11.9-15.9)
[2023-01-28] MEDS: PANTOPRAZOLE 40 MG TABLET PO SCH (11:00)
[2023-01-28] MEDS: POLYETHYLENE GLYCOL (HEALTHYLAX) 3350 17 GM PACKET PO SCH ×2 (11:00)
[2023-01-28] MEDS: RIFAXIMIN 550 MG TABLET PO SCH (11:00)
[2023-01-28] MEDS: CARBIDOPA/LEVODOPA 25/100 TABLET (FP) PO SCH ×2 (11:00→22:09)
[2023-01-28] MEDS: metoPROLOL SUCCINATE 25 MG TAB.SR.24H (FP) PO SCH (11:00)
[2023-01-28] MEDS: MAG HYDROX/AL HYDROX/SIMETH 30 ML UNIT-DOSE CUP PO SCH ×4 (11:00→22:39)
[2023-01-28] MEDS: FUROSEMIDE 40 MG/4 ML INJECTABLE VIAL IVPUSH SCH ×2 (11:00)
[2023-01-28] MEDS: COLCHICINE 0.6 MG TAB PO SCH (11:00)
[2023-01-28] MEDS: ZINC SULFATE 220 MG CAPSULE (FP) PO SCH (11:00)
[2023-01-28] MEDS: FERROUS SO4 325 MG TABLET (FP) PO SCH ×3 (11:00→17:45)
[2023-01-28] MEDS: CHOLECALCIFEROL (VIT D3) 1,000 UNIT (25 MCG) TABLET PO SCH (11:00)
[2023-01-28] MEDS: VITAMIN B COMP W-C 1 EA TABLET (NEPHRO-VITE) PO SCH (11:00)
[2023-01-28] MEDS: DULoxetine HCL 30 MG CAPSULE.DR PO SCH (11:00)
[2023-01-28] MEDS: HEPARIN NA (PORCINE) 5,000 UNITS/ML 1ML VIAL SQ SCH ×2 (11:00→22:09)
[2023-01-28] MEDS: ALBUMIN HUMAN 25% 12.5 GM/50 ML VIAL IV SCH ×2 (12:33→13:50)
[2023-01-28] MEDS: ALBUTEROL SO4 2.5/IPRATROPIUM 0.5 INH SOL 3 ML VIAL.NEB. NEB PRN ×3 (12:39→20:16)
[2023-01-28] MEDS: ALBUMIN HUMAN 25% 100 ML VIAL IV SCH ×2 (14:00→22:06)
[2023-01-28] MEDS ORDERED: diphenhydrAMINE HCL 25 MG CAPSULE (FP) PO ONE (19:00)
[2023-01-28] MEDS: TAMSULOSIN HCL 0.4 MG CAP PO SCH (22:08)
[2023-01-28] MEDS: MELATONIN 1 MG TABLET PO SCH (22:08)
[2023-01-28] MEDS: ATORVASTATIN CA 40 MG TABLET (FP) PO SCH (22:09)
[2023-01-29] MEDS: METOPROLOL TARTRATE 5 MG/5 ML VIAL IVPUSH SCH ×6 (01:30→23:27)
[2023-01-29] MEDS: LEVOTHYROXINE NA 50 MCG TABLET (FP) PO SCH (06:47)
[2023-01-29] MEDS: ALBUTEROL SO4 2.5/IPRATROPIUM 0.5 INH SOL 3 ML VIAL.NEB. NEB PRN ×3 (07:39→20:23)
[2023-01-29] MEDS ORDERED: DIGOXIN 0.5 MG/2 ML AMPUL IVPUSH ONE (07:45)
[2023-01-29] MEDS: LIPASE/PROTEASE/AMYLASE 36,000 UNIT CAPSULE PO SCH ×3 (08:04→18:15)
[2023-01-29] MEDS: FERROUS SO4 325 MG TABLET (FP) PO SCH ×3 (08:04→18:15)
[2023-01-29 08:13] LABS: BASO % 0.2 % (0-2.0); EOS % 6.7 % (0-4.5); HEMATOCRIT 26.4 % (35.4-49); HEMOGLOBIN 8.3 GM/dL (11.7-16.9); LYMPH % 3.1 % (8-40); MCH 33.1 pg (25.7-33.7); MCHC 31.6 g/dl (32.0-35.9); MEAN CELL VOLUME 104.9 fl (80-96); MEAN PLT VOLUME 9.1 fl (7.5-11.1); PLATELET COUNT 184 10^3/uL (134-434); RBC 2.52 M/mm3 (4.00-5.60); RDW 17.3 % (11.9-15.9); WHITE BLOOD COUNT 14.1 K/mm3 (4.0-10.0)
[2023-01-29 08:30] LABS: ALBUMIN 3.7 g/dl (3.4-5.0); CALCIUM 9.6 mg/dL (8.5-10.1)
[2023-01-29 08:33] LABS: CREATININE 3.3 mg/dL (0.55-1.3)
[2023-01-29 08:35] LABS: BILIRUBIN,TOTAL 0.7 mg/dL (0.2-1); TOT PROT 6.3 g/dl (6.4-8.2)
[2023-01-29 08:36] LABS: BLOOD UREA NITROGEN 81.8 mg/dL (7-18)
[2023-01-29] MEDS: FUROSEMIDE 40 MG/4 ML INJECTABLE VIAL IVPUSH SCH (10:18)
[2023-01-29] MEDS ORDERED: ALBUMIN HUMAN 5% 250 ML IV SOLUTION IV SCH (10:30)
[2023-01-29] MEDS: COLCHICINE 0.6 MG TAB PO SCH (10:52)
[2023-01-29] MEDS: DULoxetine HCL 30 MG CAPSULE.DR PO SCH (10:53)
[2023-01-29] MEDS: POLYETHYLENE GLYCOL (HEALTHYLAX) 3350 17 GM PACKET PO SCH (10:53)
[2023-01-29] MEDS: HEPARIN NA (PORCINE) 5,000 UNITS/ML 1ML VIAL SQ SCH ×2 (10:55→23:27)
[2023-01-29] MEDS: MAG HYDROX/AL HYDROX/SIMETH 30 ML UNIT-DOSE CUP PO SCH ×5 (10:56→23:28)
[2023-01-29] MEDS: VITAMIN B COMP W-C 1 EA TABLET (NEPHRO-VITE) PO SCH (10:56)
[2023-01-29] MEDS: ZINC SULFATE 220 MG CAPSULE (FP) PO SCH (10:57)
[2023-01-29] MEDS: PANTOPRAZOLE 40 MG TABLET PO SCH (10:58)
[2023-01-29] MEDS: CARBIDOPA/LEVODOPA 25/100 TABLET (FP) PO SCH ×2 (10:58→23:28)
[2023-01-29] MEDS: metoPROLOL SUCCINATE 25 MG TAB.SR.24H (FP) PO SCH (10:59)
[2023-01-29] MEDS: CHOLECALCIFEROL (VIT D3) 1,000 UNIT (25 MCG) TABLET PO SCH (10:59)
[2023-01-29] MEDS: ASCORBIC ACID 500 MG TABLET (FP) PO SCH (10:59)
[2023-01-29] MEDS: DIGOXIN 0.5 MG/2 ML AMPUL IVPUSH SCH ×2 (15:07→20:15)
[2023-01-29] MEDS: ALBUMIN HUMAN 25% 12.5 GM/50 ML VIAL IV SCH ×2 (18:13→20:14)
[2023-01-29] MEDS: TAMSULOSIN HCL 0.4 MG CAP PO SCH (23:27)
[2023-01-29] MEDS: ATORVASTATIN CA 40 MG TABLET (FP) PO SCH (23:28)
[2023-01-29] MEDS: MELATONIN 1 MG TABLET PO SCH (23:28)
[2023-01-30] MEDS: METOPROLOL TARTRATE 5 MG/5 ML VIAL IVPUSH SCH ×6 (02:44→21:33)
[2023-01-30] MEDS: DIGOXIN 0.5 MG/2 ML AMPUL IVPUSH SCH (02:45)
[2023-01-30] MEDS: LEVOTHYROXINE NA 50 MCG TABLET (FP) PO SCH (06:19)
[2023-01-30 07:56] LABS: BASO % 0.3 % (0-2.0); EOS % 7.3 % (0-4.5); HEMATOCRIT 26.1 % (35.4-49); HEMOGLOBIN 8.1 GM/dL (11.7-16.9); LYMPH % 2.8 % (8-40); MCH 32.7 pg (25.7-33.7); MCHC 31.1 g/dl (32.0-35.9); MEAN CELL VOLUME 105.2 fl (80-96); MEAN PLT VOLUME 9.2 fl (7.5-11.1); MONO % 3.5 % (3.8-10.2); NEUT % 86.1 % (42.8-82.8); PLATELET COUNT 194 10^3/uL (134-434); RBC 2.49 M/mm3 (4.00-5.60); RDW 17.4 % (11.9-15.9); WHITE BLOOD COUNT 15.9 K/mm3 (4.0-10.0)
[2023-01-30 08:16] LABS: CALCIUM 9.5 mg/dL (8.5-10.1)
[2023-01-30 08:17] LABS: ALBUMIN 3.8 g/dl (3.4-5.0); BLOOD UREA NITROGEN 82.2 mg/dL (7-18)
[2023-01-30 08:19] LABS: CREATININE 3.5 mg/dL (0.55-1.3)
[2023-01-30 08:21] LABS: BILIRUBIN,TOTAL 0.8 mg/dL (0.2-1); TOT PROT 6.3 g/dl (6.4-8.2)
[2023-01-30] MEDS: LIPASE/PROTEASE/AMYLASE 36,000 UNIT CAPSULE PO SCH ×3 (08:25→17:46)
[2023-01-30] MEDS: FERROUS SO4 325 MG TABLET (FP) PO SCH ×3 (08:25→17:46)
[2023-01-30] MEDS: CARBIDOPA/LEVODOPA 25/100 TABLET (FP) PO SCH ×2 (10:49→21:35)
[2023-01-30] MEDS: PANTOPRAZOLE 40 MG TABLET PO SCH (10:49)
[2023-01-30] MEDS: CHOLECALCIFEROL (VIT D3) 1,000 UNIT (25 MCG) TABLET PO SCH (10:49)
[2023-01-30] MEDS: HEPARIN NA (PORCINE) 5,000 UNITS/ML 1ML VIAL SQ SCH ×2 (10:49→21:35)
[2023-01-30] MEDS: ZINC SULFATE 220 MG CAPSULE (FP) PO SCH (10:49)
[2023-01-30] MEDS: metoPROLOL SUCCINATE 25 MG TAB.SR.24H (FP) PO SCH (10:49)
[2023-01-30] MEDS: DULoxetine HCL 30 MG CAPSULE.DR PO SCH (10:49)
[2023-01-30] MEDS: MAG HYDROX/AL HYDROX/SIMETH 30 ML UNIT-DOSE CUP PO SCH ×4 (10:49→21:35)
[2023-01-30] MEDS: VITAMIN B COMP W-C 1 EA TABLET (NEPHRO-VITE) PO SCH (10:49)
[2023-01-30] MEDS: COLCHICINE 0.6 MG TAB PO SCH (10:49)
[2023-01-30] MEDS: POLYETHYLENE GLYCOL (HEALTHYLAX) 3350 17 GM PACKET PO SCH (10:50)
[2023-01-30] MEDS: FUROSEMIDE 40 MG/4 ML INJECTABLE VIAL IVPUSH SCH (10:50)
[2023-01-30] MEDS: ASCORBIC ACID 500 MG TABLET (FP) PO SCH (10:52)
[2023-01-30] MEDS: ALBUTEROL SO4 2.5/IPRATROPIUM 0.5 INH SOL 3 ML VIAL.NEB. NEB PRN (14:12)
[2023-01-30 19:06] LABS: EPI CELLS 21 /uL (0-25.1); HYALINE CASTS 8 /uL (0-3.1); URINE APPEARANCE CLOUDY; URINE BACTERIA 4 /uL (0-1359); URINE BILIRUBIN NEGATIVE (NEGATIVE); URINE COLOR DK YELLOW; URINE GLUCOSE (UA) NEGATIVE (NEGATIVE); URINE KETONE TRACE (NEGATIVE); URINE LEUK ESTERASE 2+ (NEGATIVE); URINE NITRITE NEGATIVE (NEGATIVE); URINE PROTEIN 2+ (NEGATIVE); URINE RBC 15 /uL (0-23.9); URINE UROBILINOGEN 0.2 mg/dL (0.2-1.0); URINE WBC 170 /uL (0-25.8)
[2023-01-30] MEDS: MELATONIN 1 MG TABLET PO SCH (21:34)
[2023-01-30] MEDS: TAMSULOSIN HCL 0.4 MG CAP PO SCH (21:35)
[2023-01-30] MEDS: ATORVASTATIN CA 40 MG TABLET (FP) PO SCH (21:35)
[2023-01-31] MEDS: METOPROLOL TARTRATE 5 MG/5 ML VIAL IVPUSH SCH ×6 (01:27→21:05)
[2023-01-31] MEDS: ACETAMINOPHEN 325 MG TABLET (FP) PO PRN ×2 (04:59→12:33)
[2023-01-31] MEDS: diphenhydrAMINE HCL 25 MG CAPSULE (FP) PO PRN ×2 (05:05→18:19)
[2023-01-31] MEDS: LEVOTHYROXINE NA 50 MCG TABLET (FP) PO SCH (06:46)
[2023-01-31 09:50] LABS: BASO % 0.3 % (0-2.0); EOS % 5.1 % (0-4.5); HEMATOCRIT 27.3 % (35.4-49); HEMOGLOBIN 8.7 GM/dL (11.7-16.9); LYMPH % 1.7 % (8-40); MCH 33.5 pg (25.7-33.7); MCHC 31.8 g/dl (32.0-35.9); MEAN CELL VOLUME 105.3 fl (80-96); MEAN PLT VOLUME 9.1 fl (7.5-11.1); MONO % 4.2 % (3.8-10.2); NEUT % 88.7 % (42.8-82.8); PLATELET COUNT 192 10^3/uL (134-434); RBC 2.59 M/mm3 (4.00-5.60); WHITE BLOOD COUNT 18.6 K/mm3 (4.0-10.0)
[2023-01-31] MEDS: FUROSEMIDE 40 MG/4 ML INJECTABLE VIAL IVPUSH SCH (09:57)
[2023-01-31] MEDS: LIPASE/PROTEASE/AMYLASE 36,000 UNIT CAPSULE PO SCH ×3 (09:57→17:11)
[2023-01-31] MEDS: HEPARIN NA (PORCINE) 5,000 UNITS/ML 1ML VIAL SQ SCH ×2 (09:57→21:57)
[2023-01-31] MEDS: ASCORBIC ACID 500 MG TABLET (FP) PO SCH (09:58)
[2023-01-31] MEDS: DULoxetine HCL 30 MG CAPSULE.DR PO SCH (09:58)
[2023-01-31] MEDS: FERROUS SO4 325 MG TABLET (FP) PO SCH ×3 (09:58→17:01)
[2023-01-31] MEDS: PANTOPRAZOLE 40 MG TABLET PO SCH (09:58)
[2023-01-31] MEDS: CARBIDOPA/LEVODOPA 25/100 TABLET (FP) PO SCH ×2 (09:58→21:58)
[2023-01-31] MEDS: ZINC SULFATE 220 MG CAPSULE (FP) PO SCH (09:58)
[2023-01-31] MEDS: MAG HYDROX/AL HYDROX/SIMETH 30 ML UNIT-DOSE CUP PO SCH ×4 (09:58→21:57)
[2023-01-31] MEDS: COLCHICINE 0.6 MG TAB PO SCH (09:58)
[2023-01-31] MEDS: VITAMIN B COMP W-C 1 EA TABLET (NEPHRO-VITE) PO SCH (10:00)
[2023-01-31] MEDS: metoPROLOL SUCCINATE 25 MG TAB.SR.24H (FP) PO SCH (10:00)
[2023-01-31] MEDS: CHOLECALCIFEROL (VIT D3) 1,000 UNIT (25 MCG) TABLET PO SCH (10:01)
[2023-01-31] MEDS: POLYETHYLENE GLYCOL (HEALTHYLAX) 3350 17 GM PACKET PO SCH (10:11)
[2023-01-31 10:19] LABS: ALBUMIN 3.2 g/dl (3.4-5.0); BLOOD UREA NITROGEN 89.3 mg/dL (7-18); CALCIUM 9.5 mg/dL (8.5-10.1)
[2023-01-31 10:23] LABS: CREATININE 4.1 mg/dL (0.55-1.3)
[2023-01-31 10:25] LABS: BILIRUBIN,TOTAL 0.7 mg/dL (0.2-1); TOT PROT 5.9 g/dl (6.4-8.2)
[2023-01-31 11:50] LABS: ANISOCYTOSIS 1+; HELMET CELLS 1+; MACROCYTOSIS 0
[2023-01-31] MEDS: ALBUMIN HUMAN 25% 100 ML VIAL IV SCH ×2 (16:59→22:50)
[2023-01-31] MEDS: AMINO ACIDS/PROTEIN HYDROLYS 30 ML LIQUID.PKT PO SCH (17:01)
[2023-01-31] MEDS: OCTREOTIDE ACETATE 100 MCG/1 ML SQ SCH ×3 (17:11→22:50)
[2023-01-31] MEDS: MIDODRINE HCL PO SCH (17:30)
[2023-01-31] MEDS ORDERED: methylPREDNISolone NA SUCC 125 MG/2 ML VIAL IVPUSH ONE (17:42)
[2023-01-31] MEDS ORDERED: MIDODRINE HCL 5 MG TABLET PO SCH (18:00)
[2023-01-31] MEDS ORDERED: MIDODRINE HCL 2.5 MG TABLET PO SCH ×2 (18:00)
[2023-01-31] MEDS: CLINDAMYCIN 600MG PREMIX IVPB 600 MG/50 ML BAG IVPB SCH (19:05)
[2023-01-31] MEDS: AZTREONAM 0.5 GM in DEXTROSE 5%-WATER - 50 ML IVPB SCH (21:56)
[2023-01-31] MEDS: TAMSULOSIN HCL 0.4 MG CAP PO SCH (21:57)
[2023-01-31] MEDS: MELATONIN 1 MG TABLET PO SCH (21:57)
[2023-01-31] MEDS: ATORVASTATIN CA 40 MG TABLET (FP) PO SCH (21:57)
[2023-02-01] MEDS: METOPROLOL TARTRATE 5 MG/5 ML VIAL IVPUSH SCH ×6 (01:00→22:41)
[2023-02-01] MEDS: CLINDAMYCIN 600MG PREMIX IVPB 600 MG/50 ML BAG IVPB SCH ×3 (02:27→18:06)
[2023-02-01] MEDS: ALBUMIN HUMAN 25% 100 ML VIAL IV SCH ×2 (06:19→11:47)
[2023-02-01] MEDS: AZTREONAM 0.5 GM in DEXTROSE 5%-WATER - 50 ML IVPB SCH ×2 (06:57→22:41)
[2023-02-01] MEDS: LEVOTHYROXINE NA 50 MCG TABLET (FP) PO SCH (06:57)
[2023-02-01] MEDS: FERROUS SO4 325 MG TABLET (FP) PO SCH ×3 (08:28→18:07)
[2023-02-01] MEDS: AMINO ACIDS/PROTEIN HYDROLYS 30 ML LIQUID.PKT PO SCH ×2 (08:28→18:07)
[2023-02-01] MEDS: LIPASE/PROTEASE/AMYLASE 36,000 UNIT CAPSULE PO SCH ×3 (08:28→18:07)
[2023-02-01] MEDS: OCTREOTIDE ACETATE 100 MCG/1 ML SQ SCH ×3 (09:38→22:43)
[2023-02-01] MEDS: MAG HYDROX/AL HYDROX/SIMETH 30 ML UNIT-DOSE CUP PO SCH ×4 (09:39→22:42)
[2023-02-01] MEDS: CARBIDOPA/LEVODOPA 25/100 TABLET (FP) PO SCH ×2 (09:39→22:43)
[2023-02-01] MEDS: VITAMIN B COMP W-C 1 EA TABLET (NEPHRO-VITE) PO SCH (09:39)
[2023-02-01] MEDS: DULoxetine HCL 30 MG CAPSULE.DR PO SCH (09:39)
[2023-02-01] MEDS: PANTOPRAZOLE 40 MG TABLET PO SCH (09:40)
[2023-02-01] MEDS: COLCHICINE 0.6 MG TAB PO SCH (09:40)
[2023-02-01] MEDS: CHOLECALCIFEROL (VIT D3) 1,000 UNIT (25 MCG) TABLET PO SCH (09:40)
[2023-02-01] MEDS: metoPROLOL SUCCINATE 25 MG TAB.SR.24H (FP) PO SCH (09:40)
[2023-02-01] MEDS: ZINC SULFATE 220 MG CAPSULE (FP) PO SCH (09:40)
[2023-02-01] MEDS: HEPARIN NA (PORCINE) 5,000 UNITS/ML 1ML VIAL SQ SCH (09:40)
[2023-02-01] MEDS: ASCORBIC ACID 500 MG TABLET (FP) PO SCH (09:40)
[2023-02-01] MEDS: MIDODRINE HCL PO SCH (09:40)
[2023-02-01] MEDS: POLYETHYLENE GLYCOL (HEALTHYLAX) 3350 17 GM PACKET PO SCH (09:41)
[2023-02-01] MEDS: FUROSEMIDE 40 MG/4 ML INJECTABLE VIAL IVPUSH SCH (09:44)
[2023-02-01 11:58] LABS: HEMATOCRIT 27.3 % (35.4-49); HEMOGLOBIN 8.3 GM/dL (11.7-16.9); MCH 32.9 pg (25.7-33.7); MCHC 30.4 g/dl (32.0-35.9); MEAN CELL VOLUME 108.2 fl (80-96); MEAN PLT VOLUME 8.7 fl (7.5-11.1); PLATELET COUNT 204 10^3/uL (134-434); RBC 2.52 M/mm3 (4.00-5.60); RDW 18.3 % (11.9-15.9); WHITE BLOOD COUNT 23.3 K/mm3 (4.0-10.0)
[2023-02-01 12:26] LABS: ALBUMIN 3.4 g/dl (3.4-5.0); BLOOD UREA NITROGEN 95.5 mg/dL (7-18); CALCIUM 9.5 mg/dL (8.5-10.1); MAGNESIUM 1.8 mg/dL (1.8-2.4)
[2023-02-01 12:28] LABS: CREATININE 4.5 mg/dL (0.55-1.3)
[2023-02-01 12:30] LABS: BILIRUBIN,TOTAL 0.7 mg/dL (0.2-1); TOT PROT 5.9 g/dl (6.4-8.2)
[2023-02-01] MEDS: ALBUTEROL SO4 2.5/IPRATROPIUM 0.5 INH SOL 3 ML VIAL.NEB. NEB PRN (14:00)
[2023-02-01] MEDS: ACETAMINOPHEN 325 MG TABLET (FP) PO PRN (14:28)
[2023-02-01] MEDS: MIDODRINE HCL 5 MG TABLET PO SCH ×2 (14:29→18:06)
[2023-02-01] MEDS: HYDROCORTISONE 0.5% TOPICAL CREAM 30 GM TUBE TP PRN (18:25)
[2023-02-01] MEDS: MELATONIN 1 MG TABLET PO SCH (22:42)
[2023-02-01] MEDS: ATORVASTATIN CA 40 MG TABLET (FP) PO SCH (22:42)
[2023-02-01] MEDS: TAMSULOSIN HCL 0.4 MG CAP PO SCH (22:42)
[2023-02-02] MEDS: METOPROLOL TARTRATE 5 MG/5 ML VIAL IVPUSH SCH ×6 (01:00→21:34)
[2023-02-02] MEDS: CLINDAMYCIN 600MG PREMIX IVPB 600 MG/50 ML BAG IVPB SCH ×3 (03:04→17:52)
[2023-02-02] MEDS: AZTREONAM 0.5 GM in DEXTROSE 5%-WATER - 50 ML IVPB SCH ×2 (06:21→19:18)
[2023-02-02] MEDS: OCTREOTIDE ACETATE 100 MCG/1 ML SQ SCH ×3 (06:21→21:37)
[2023-02-02] MEDS: LEVOTHYROXINE NA 50 MCG TABLET (FP) PO SCH (06:21)
[2023-02-02] MEDS: FERROUS SO4 325 MG TABLET (FP) PO SCH ×3 (08:37→17:52)
[2023-02-02] MEDS: LIPASE/PROTEASE/AMYLASE 36,000 UNIT CAPSULE PO SCH ×2 (08:37→14:35)
[2023-02-02] MEDS: AMINO ACIDS/PROTEIN HYDROLYS 30 ML LIQUID.PKT PO SCH ×2 (08:37→17:53)
[2023-02-02 08:50] LABS: HEMATOCRIT 29.3 % (35.4-49); MCH 32.8 pg (25.7-33.7); MCHC 30.7 g/dl (32.0-35.9); MEAN PLT VOLUME 9.1 fl (7.5-11.1); PLATELET COUNT 210 10^3/uL (134-434); RBC 2.74 M/mm3 (4.00-5.60); RDW 17.7 % (11.9-15.9); WHITE BLOOD COUNT 28.5 K/mm3 (4.0-10.0)
[2023-02-02 09:05] LABS: CHLORIDE 105 mmol/L (98-107); SODIUM 139 mmol/L (136-145)
[2023-02-02 09:14] LABS: CREATININE 5.1 mg/dL (0.55-1.3)
[2023-02-02 09:16] LABS: ALBUMIN 3.7 g/dl (3.4-5.0); ALK PHOS 69 U/L (45-117); ANION GAP 10 MMOL/L (8-16); BILIRUBIN,TOTAL 0.7 mg/dL (0.2-1); CO2 23 mmol/L (21-32); GLUCOSE,RANDOM 166 mg/dL (74-106); SGOT/AST 7 U/L (15-37); TOT PROT 6.2 g/dl (6.4-8.2)
[2023-02-02 09:18] LABS: CALCIUM 9.4 mg/dL (8.5-10.1); SGPT/ALT 9 U/L (13-61)
[2023-02-02 09:52] LABS: ANISOCYTOSIS 2+; MACROCYTOSIS 0; OVALOCYTE 2+
[2023-02-02] MEDS: metoPROLOL SUCCINATE 25 MG TAB.SR.24H (FP) PO SCH (10:16)
[2023-02-02] MEDS: MAG HYDROX/AL HYDROX/SIMETH 30 ML UNIT-DOSE CUP PO SCH ×4 (10:16→21:37)
[2023-02-02] MEDS: CARBIDOPA/LEVODOPA 25/100 TABLET (FP) PO SCH ×2 (10:16→21:38)
[2023-02-02] MEDS: ASCORBIC ACID 500 MG TABLET (FP) PO SCH (10:16)
[2023-02-02] MEDS: ACETAMINOPHEN 325 MG TABLET (FP) PO PRN (10:16)
[2023-02-02] MEDS: PANTOPRAZOLE 40 MG TABLET PO SCH (10:17)
[2023-02-02] MEDS: VITAMIN B COMP W-C 1 EA TABLET (NEPHRO-VITE) PO SCH (10:17)
[2023-02-02] MEDS: COLCHICINE 0.6 MG TAB PO SCH (10:17)
[2023-02-02] MEDS: CHOLECALCIFEROL (VIT D3) 1,000 UNIT (25 MCG) TABLET PO SCH (10:17)
[2023-02-02] MEDS: POLYETHYLENE GLYCOL (HEALTHYLAX) 3350 17 GM PACKET PO SCH (10:18)
[2023-02-02] MEDS: DULoxetine HCL 30 MG CAPSULE.DR PO SCH (10:18)
[2023-02-02] MEDS: ZINC SULFATE 220 MG CAPSULE (FP) PO SCH (10:18)
[2023-02-02] MEDS: MIDODRINE HCL 5 MG TABLET PO SCH ×3 (10:30→17:51)
[2023-02-02] MEDS ORDERED: ALBUMIN HUMAN 25% 100 ML VIAL IV ONE (15:00)
[2023-02-02 15:25] LABS: BF WBC & OTHER NUCLEATED CELLS 314 /mm3
[2023-02-02] MEDS ORDERED: SODIUM CHLORIDE 500 ML IV STA (15:36)
[2023-02-02 15:47] LABS: BODY FLUID MESOTHELIAL 1 %; BODY FLUID MONOCYTE 33 %
[2023-02-02] MEDS: SODIUM ZIRCONIUM CYCLOSILICATE (LOKELMA) 5 GM PACKET PO SCH (16:21)
[2023-02-02] MEDS: MELATONIN 1 MG TABLET PO SCH (21:37)
[2023-02-02] MEDS: TAMSULOSIN HCL 0.4 MG CAP PO SCH (21:37)
[2023-02-02] MEDS: ATORVASTATIN CA 40 MG TABLET (FP) PO SCH (21:37)
[2023-02-02] MEDS: HEPARIN NA (PORCINE) 5,000 UNITS/ML 1ML VIAL SQ SCH (22:57)
[2023-02-03] MEDS: METOPROLOL TARTRATE 5 MG/5 ML VIAL IVPUSH SCH ×6 (01:05→23:08)
[2023-02-03] MEDS: CLINDAMYCIN 600MG PREMIX IVPB 600 MG/50 ML BAG IVPB SCH ×2 (02:14→09:45)
[2023-02-03] MEDS: LEVOTHYROXINE NA 50 MCG TABLET (FP) PO SCH (06:40)
[2023-02-03] MEDS: AZTREONAM 0.5 GM in DEXTROSE 5%-WATER - 50 ML IVPB SCH ×2 (06:40→18:02)
[2023-02-03] MEDS: OCTREOTIDE ACETATE 100 MCG/1 ML SQ SCH ×3 (06:40→23:08)
[2023-02-03] MEDS: PANTOPRAZOLE 40 MG TABLET PO SCH (09:43)
[2023-02-03] MEDS: MIDODRINE HCL 5 MG TABLET PO SCH ×3 (09:43→17:03)
[2023-02-03] MEDS: COLCHICINE 0.6 MG TAB PO SCH (09:43)
[2023-02-03] MEDS: CARBIDOPA/LEVODOPA 25/100 TABLET (FP) PO SCH ×2 (09:43→23:07)
[2023-02-03] MEDS: VITAMIN B COMP W-C 1 EA TABLET (NEPHRO-VITE) PO SCH (09:44)
[2023-02-03] MEDS: FERROUS SO4 325 MG TABLET (FP) PO SCH ×3 (09:44→16:43)
[2023-02-03] MEDS: HEPARIN NA (PORCINE) 5,000 UNITS/ML 1ML VIAL SQ SCH ×2 (09:44→23:08)
[2023-02-03] MEDS: ASCORBIC ACID 500 MG TABLET (FP) PO SCH (09:44)
[2023-02-03] MEDS: DULoxetine HCL 30 MG CAPSULE.DR PO SCH (09:44)
[2023-02-03] MEDS: SODIUM ZIRCONIUM CYCLOSILICATE (LOKELMA) 5 GM PACKET PO SCH (09:44)
[2023-02-03] MEDS: ZINC SULFATE 220 MG CAPSULE (FP) PO SCH (09:44)
[2023-02-03] MEDS: CHOLECALCIFEROL (VIT D3) 1,000 UNIT (25 MCG) TABLET PO SCH (09:44)
[2023-02-03] MEDS: POLYETHYLENE GLYCOL (HEALTHYLAX) 3350 17 GM PACKET PO SCH ×2 (09:44→10:27)
[2023-02-03] MEDS: MAG HYDROX/AL HYDROX/SIMETH 30 ML UNIT-DOSE CUP PO SCH ×5 (09:45→23:19)
[2023-02-03] MEDS: AMINO ACIDS/PROTEIN HYDROLYS 30 ML LIQUID.PKT PO SCH ×3 (09:45→16:44)
[2023-02-03] MEDS: metoPROLOL SUCCINATE 25 MG TAB.SR.24H (FP) PO SCH (09:48)
[2023-02-03 12:07] LABS: MEAN CELL VOLUME 106.7 fl (80-96); MEAN PLT VOLUME 8.5 fl (7.5-11.1); PLATELET COUNT 197 10^3/uL (134-434); RBC 2.81 M/mm3 (4.00-5.60); RDW 17.8 % (11.9-15.9)
[2023-02-03 12:22] LABS: CHLORIDE 109 mmol/L (98-107); SODIUM 143 mmol/L (136-145)
[2023-02-03 12:26] LABS: ALBUMIN 3.4 g/dl (3.4-5.0); ANION GAP 8 MMOL/L (8-16); CO2 25 mmol/L (21-32); GLUCOSE,RANDOM 127 mg/dL (74-106)
[2023-02-03 12:27] LABS: WHITE BLOOD COUNT 32.5 K/mm3 (4.0-10.0)
[2023-02-03 12:29] LABS: CREATININE 5.7 mg/dL (0.55-1.3); SGPT/ALT 6 U/L (13-61)
[2023-02-03 12:30] LABS: ALK PHOS 72 U/L (45-117)
[2023-02-03 12:31] LABS: BILIRUBIN,TOTAL 0.6 mg/dL (0.2-1)
[2023-02-03 12:32] LABS: BLOOD UREA NITROGEN 117.6 mg/dL (7-18); SGOT/AST < 3 U/L (15-37)
[2023-02-03 12:42] LABS: ANISOCYTOSIS 0; HELMET CELLS 0; HOWELL-JOLLY BODIES 0; MACROCYTOSIS 0; OVALOCYTE 0; ROULEAU 0; SICKELED CELLS 0; TARGET CELLS 0; TEAR DROP CELLS 0; TOXIC GRANULATION 0
[2023-02-03] MEDS: ALBUTEROL SO4 2.5/IPRATROPIUM 0.5 INH SOL 3 ML VIAL.NEB. NEB PRN (20:10)
[2023-02-03] MEDS: MELATONIN 1 MG TABLET PO SCH (23:07)
[2023-02-03] MEDS: RIFAXIMIN 550 MG TABLET PO SCH (23:07)
[2023-02-03] MEDS: ATORVASTATIN CA 40 MG TABLET (FP) PO SCH (23:07)
[2023-02-03] MEDS: TAMSULOSIN HCL 0.4 MG CAP PO SCH (23:07)
[2023-02-04] MEDS: METOPROLOL TARTRATE 5 MG/5 ML VIAL IVPUSH SCH ×6 (01:00→21:34)
[2023-02-04] MEDS: ALBUTEROL SO4 2.5/IPRATROPIUM 0.5 INH SOL 3 ML VIAL.NEB. NEB PRN (01:17)
[2023-02-04] MEDS: OCTREOTIDE ACETATE 100 MCG/1 ML SQ SCH ×3 (06:15→21:43)
[2023-02-04] MEDS: LEVOTHYROXINE NA 50 MCG TABLET (FP) PO SCH (06:16)
[2023-02-04] MEDS: AZTREONAM 0.5 GM in DEXTROSE 5%-WATER - 50 ML IVPB SCH ×2 (07:01→18:00)
[2023-02-04 07:53] LABS: HEMATOCRIT 29.3 % (35.4-49); MCH 32.3 pg (25.7-33.7); MCHC 30.8 g/dl (32.0-35.9); MEAN CELL VOLUME 105.1 fl (80-96); MEAN PLT VOLUME 8.4 fl (7.5-11.1); PLATELET COUNT 185 10^3/uL (134-434); RBC 2.78 M/mm3 (4.00-5.60); RDW 17.8 % (11.9-15.9)
[2023-02-04 08:00] LABS: CHLORIDE 109 mmol/L (98-107); SODIUM 143 mmol/L (136-145)
[2023-02-04 08:13] LABS: WHITE BLOOD COUNT 35.4 K/mm3 (4.0-10.0)
[2023-02-04 08:20] LABS: ANION GAP 10 MMOL/L (8-16); CALCIUM 9.4 mg/dL (8.5-10.1); CO2 24 mmol/L (21-32); GLUCOSE,RANDOM 98 mg/dL (74-106)
[2023-02-04 08:21] LABS: ALBUMIN 3.3 g/dl (3.4-5.0)
[2023-02-04 08:23] LABS: CREATININE 6.2 mg/dL (0.55-1.3); SGOT/AST 6 U/L (15-37)
[2023-02-04 08:24] LABS: BILIRUBIN,TOTAL 0.6 mg/dL (0.2-1)
[2023-02-04 08:25] LABS: ALK PHOS 73 U/L (45-117)
[2023-02-04 08:42] LABS: BLOOD UREA NITROGEN 130.8 mg/dL (7-18); SGPT/ALT < 6 U/L (13-61)
[2023-02-04] MEDS: VITAMIN B COMP W-C 1 EA TABLET (NEPHRO-VITE) PO SCH (10:16)
[2023-02-04] MEDS: DULoxetine HCL 30 MG CAPSULE.DR PO SCH (10:16)
[2023-02-04] MEDS: PANTOPRAZOLE 40 MG TABLET PO SCH (10:16)
[2023-02-04] MEDS: metoPROLOL SUCCINATE 25 MG TAB.SR.24H (FP) PO SCH (10:16)
[2023-02-04] MEDS: CARBIDOPA/LEVODOPA 25/100 TABLET (FP) PO SCH ×2 (10:16→21:37)
[2023-02-04] MEDS: ZINC SULFATE 220 MG CAPSULE (FP) PO SCH (10:16)
[2023-02-04] MEDS: COLCHICINE 0.6 MG TAB PO SCH (10:16)
[2023-02-04] MEDS: FERROUS SO4 325 MG TABLET (FP) PO SCH ×3 (10:17→16:31)
[2023-02-04] MEDS: ASCORBIC ACID 500 MG TABLET (FP) PO SCH (10:17)
[2023-02-04] MEDS: MIDODRINE HCL 5 MG TABLET PO SCH ×3 (10:17→17:15)
[2023-02-04] MEDS: HEPARIN NA (PORCINE) 5,000 UNITS/ML 1ML VIAL SQ SCH ×2 (10:17→21:38)
[2023-02-04] MEDS: CHOLECALCIFEROL (VIT D3) 1,000 UNIT (25 MCG) TABLET PO SCH (10:17)
[2023-02-04] MEDS: AMINO ACIDS/PROTEIN HYDROLYS 30 ML LIQUID.PKT PO SCH ×2 (10:18→16:31)
[2023-02-04] MEDS: POLYETHYLENE GLYCOL (HEALTHYLAX) 3350 17 GM PACKET PO SCH ×2 (10:18→13:17)
[2023-02-04] MEDS: MAG HYDROX/AL HYDROX/SIMETH 30 ML UNIT-DOSE CUP PO SCH ×5 (10:21→21:39)
[2023-02-04] MEDS: RIFAXIMIN 550 MG TABLET PO SCH ×2 (10:21→21:37)
[2023-02-04] MEDS: SODIUM ZIRCONIUM CYCLOSILICATE (LOKELMA) 5 GM PACKET PO SCH (10:22)
[2023-02-04] MEDS: metroNIDAZOLE 250 MG TABLET PO SCH ×2 (13:31→21:37)
[2023-02-04 15:07] LABS: BODY FLUID ALBUMIN 2.4 g/dL (Not Estab.)
[2023-02-04] MEDS: ATORVASTATIN CA 40 MG TABLET (FP) PO SCH (21:38)
[2023-02-04] MEDS: MELATONIN 1 MG TABLET PO SCH (21:38)
[2023-02-04] MEDS: TAMSULOSIN HCL 0.4 MG CAP PO SCH (21:38)
[2023-02-05] MEDS: METOPROLOL TARTRATE 5 MG/5 ML VIAL IVPUSH SCH ×6 (02:23→21:35)
[2023-02-05] MEDS: metroNIDAZOLE 250 MG TABLET PO SCH (06:07)
[2023-02-05] MEDS: LEVOTHYROXINE NA 50 MCG TABLET (FP) PO SCH (06:07)
[2023-02-05] MEDS: AZTREONAM 0.5 GM in DEXTROSE 5%-WATER - 50 ML IVPB SCH ×2 (06:08→18:03)
[2023-02-05] MEDS: OCTREOTIDE ACETATE 100 MCG/1 ML SQ SCH ×3 (06:08→21:44)
[2023-02-05 07:21] LABS: MCH 32.6 pg (25.7-33.7); MCHC 31.1 g/dl (32.0-35.9); MEAN CELL VOLUME 104.8 fl (80-96); MEAN PLT VOLUME 8.5 fl (7.5-11.1); PLATELET COUNT 179 10^3/uL (134-434); RBC 2.77 M/mm3 (4.00-5.60); RDW 17.3 % (11.9-15.9)
[2023-02-05 07:35] LABS: CHLORIDE 108 mmol/L (98-107); SODIUM 142 mmol/L (136-145)
[2023-02-05 07:44] LABS: CALCIUM 9.3 mg/dL (8.5-10.1)
[2023-02-05 07:45] LABS: ALBUMIN 3.3 g/dl (3.4-5.0); ANION GAP 10 MMOL/L (8-16); CO2 24 mmol/L (21-32); GLUCOSE,RANDOM 107 mg/dL (74-106)
[2023-02-05 07:48] LABS: CREATININE 6.8 mg/dL (0.55-1.3); SGOT/AST 3 U/L (15-37)
[2023-02-05 07:50] LABS: BILIRUBIN,TOTAL 0.7 mg/dL (0.2-1)
[2023-02-05 07:51] LABS: ALK PHOS 78 U/L (45-117)
[2023-02-05 08:16] LABS: SGPT/ALT < 6 U/L (13-61)
[2023-02-05 09:15] LABS: ANISOCYTOSIS 2+; MACROCYTOSIS 2+
[2023-02-05] MEDS: DULoxetine HCL 30 MG CAPSULE.DR PO SCH (10:35)
[2023-02-05] MEDS: ZINC SULFATE 220 MG CAPSULE (FP) PO SCH (10:35)
[2023-02-05] MEDS: COLCHICINE 0.6 MG TAB PO SCH (10:35)
[2023-02-05] MEDS: PANTOPRAZOLE 40 MG TABLET PO SCH (10:35)
[2023-02-05] MEDS: CARBIDOPA/LEVODOPA 25/100 TABLET (FP) PO SCH ×2 (10:35→21:44)
[2023-02-05] MEDS: VITAMIN B COMP W-C 1 EA TABLET (NEPHRO-VITE) PO SCH (10:35)
[2023-02-05] MEDS: metoPROLOL SUCCINATE 25 MG TAB.SR.24H (FP) PO SCH (10:35)
[2023-02-05] MEDS: MIDODRINE HCL 5 MG TABLET PO SCH ×3 (10:36→18:03)
[2023-02-05] MEDS: CHOLECALCIFEROL (VIT D3) 1,000 UNIT (25 MCG) TABLET PO SCH (10:36)
[2023-02-05] MEDS: HEPARIN NA (PORCINE) 5,000 UNITS/ML 1ML VIAL SQ SCH ×2 (10:36→21:39)
[2023-02-05] MEDS: ASCORBIC ACID 500 MG TABLET (FP) PO SCH (10:36)
[2023-02-05] MEDS: FERROUS SO4 325 MG TABLET (FP) PO SCH ×3 (10:36→17:39)
[2023-02-05] MEDS: POLYETHYLENE GLYCOL (HEALTHYLAX) 3350 17 GM PACKET PO SCH (10:37)
[2023-02-05] MEDS: AMINO ACIDS/PROTEIN HYDROLYS 30 ML LIQUID.PKT PO SCH ×2 (10:37→17:39)
[2023-02-05] MEDS: SODIUM ZIRCONIUM CYCLOSILICATE (LOKELMA) 5 GM PACKET PO SCH (10:38)
[2023-02-05] MEDS: MAG HYDROX/AL HYDROX/SIMETH 30 ML UNIT-DOSE CUP PO SCH ×4 (10:39→21:43)
[2023-02-05] MEDS: RIFAXIMIN 550 MG TABLET PO SCH ×2 (10:39→21:44)
[2023-02-05] MEDS: VANCOMYCIN 1 GM/200 ML PREMIX BAG (RESTRICTED TO ID ONLY) IVPB ONE ×2 (12:07→16:19)
[2023-02-05 14:31] VITALS: BMI 31.9
[2023-02-05] MEDS: ALBUMIN HUMAN 25% 12.5 GM/50 ML VIAL IV SCH ×3 (16:35→18:10)
[2023-02-05] MEDS ORDERED: SODIUM CHLORIDE 250 ML IV PRN (16:38)
[2023-02-05] MEDS: MUPIROCIN 2% TOPICAL OINTMENT FOR DECOLONIZATION NS SCH ×2 (21:38→21:54)
[2023-02-05] MEDS: TAMSULOSIN HCL 0.4 MG CAP PO SCH (21:39)
[2023-02-05] MEDS: ATORVASTATIN CA 40 MG TABLET (FP) PO SCH (21:41)
[2023-02-05] MEDS: CHLORHEXIDINE GLUCONATE 4% CLEANSER FOR DECOLONIZATION TP SCH (21:41)
[2023-02-05] MEDS: MELATONIN 1 MG TABLET PO SCH ×2 (21:55→22:15)
[2023-02-06] MEDS: METOPROLOL TARTRATE 5 MG/5 ML VIAL IVPUSH SCH ×6 (00:01→22:00)
[2023-02-06] MEDS: OCTREOTIDE ACETATE 100 MCG/1 ML SQ SCH ×3 (06:11→23:13)
[2023-02-06] MEDS: LEVOTHYROXINE NA 50 MCG TABLET (FP) PO SCH (06:14)
[2023-02-06 07:13] LABS: BASO % 0.2 % (0-2.0); HEMATOCRIT 26.1 % (35.4-49); HEMOGLOBIN 8.3 GM/dL (11.7-16.9); LYMPH % 2.6 % (8-40); MCHC 31.7 g/dl (32.0-35.9); MEAN CELL VOLUME 104.1 fl (80-96); MEAN PLT VOLUME 8.9 fl (7.5-11.1); MONO % 2.3 % (3.8-10.2); NEUT % 93.9 % (42.8-82.8); PLATELET COUNT 160 10^3/uL (134-434); RBC 2.51 M/mm3 (4.00-5.60); RDW 17.6 % (11.9-15.9); WHITE BLOOD COUNT 27.4 K/mm3 (4.0-10.0)
[2023-02-06] MEDS: AZTREONAM 0.5 GM in DEXTROSE 5%-WATER - 50 ML IVPB SCH ×2 (07:18→18:03)
[2023-02-06 07:25] LABS: CHLORIDE 108 mmol/L (98-107); SODIUM 142 mmol/L (136-145)
[2023-02-06 07:30] LABS: GLUCOSE,RANDOM 99 mg/dL (74-106)
[2023-02-06 07:31] LABS: ALBUMIN 3.1 g/dl (3.4-5.0); ANION GAP 7 MMOL/L (8-16); CALCIUM 9.3 mg/dL (8.5-10.1); CO2 27 mmol/L (21-32); MAGNESIUM 2.2 mg/dL (1.8-2.4)
[2023-02-06 07:33] LABS: CREATININE 5.8 mg/dL (0.55-1.3); PHOSPHOROUS 3.2 mg/dL (2.5-4.9); SGOT/AST 5 U/L (15-37); SGPT/ALT < 6 U/L (13-61)
[2023-02-06 07:35] LABS: BILIRUBIN,TOTAL 0.7 mg/dL (0.2-1); TOT PROT 5.8 g/dl (6.4-8.2)
[2023-02-06 07:36] LABS: ALK PHOS 72 U/L (45-117)
[2023-02-06 07:40] LABS: BLOOD UREA NITROGEN 108.4 mg/dL (7-18)
[2023-02-06] MEDS: SODIUM ZIRCONIUM CYCLOSILICATE (LOKELMA) 5 GM PACKET PO SCH (09:28)
[2023-02-06] MEDS: MIDODRINE HCL 5 MG TABLET PO SCH ×3 (09:29→17:48)
[2023-02-06] MEDS: CARBIDOPA/LEVODOPA 25/100 TABLET (FP) PO SCH ×2 (09:29→22:21)
[2023-02-06] MEDS: AMINO ACIDS/PROTEIN HYDROLYS 30 ML LIQUID.PKT PO SCH ×2 (09:30→17:48)
[2023-02-06] MEDS: FERROUS SO4 325 MG TABLET (FP) PO SCH ×3 (09:30→17:48)
[2023-02-06] MEDS: CHOLECALCIFEROL (VIT D3) 1,000 UNIT (25 MCG) TABLET PO SCH (09:30)
[2023-02-06] MEDS: VITAMIN B COMP W-C 1 EA TABLET (NEPHRO-VITE) PO SCH (09:30)
[2023-02-06] MEDS: ASCORBIC ACID 500 MG TABLET (FP) PO SCH (09:30)
[2023-02-06] MEDS: metoPROLOL SUCCINATE 25 MG TAB.SR.24H (FP) PO SCH (09:30)
[2023-02-06] MEDS: ZINC SULFATE 220 MG CAPSULE (FP) PO SCH (09:30)
[2023-02-06] MEDS: RIFAXIMIN 550 MG TABLET PO SCH ×2 (09:30→22:21)
[2023-02-06] MEDS: PANTOPRAZOLE 40 MG TABLET PO SCH (09:30)
[2023-02-06] MEDS: HEPARIN NA (PORCINE) 5,000 UNITS/ML 1ML VIAL SQ SCH ×2 (09:31→22:20)
[2023-02-06] MEDS: MAG HYDROX/AL HYDROX/SIMETH 30 ML UNIT-DOSE CUP PO SCH ×4 (09:31→22:21)
[2023-02-06] MEDS: MUPIROCIN 2% TOPICAL OINTMENT FOR DECOLONIZATION NS SCH ×2 (10:00→22:19)
[2023-02-06] MEDS: DULoxetine HCL 30 MG CAPSULE.DR PO SCH (10:00)
[2023-02-06 10:12] LABS: ANISOCYTOSIS 1+; MACROCYTOSIS 1+
[2023-02-06] MEDS: COLLAGENASE CLOSTRIDIUM HIST. 30 GRAMS TUBE TP SCH (14:53)
[2023-02-06] MEDS: TAMSULOSIN HCL 0.4 MG CAP PO SCH (22:20)
[2023-02-06] MEDS: MELATONIN 1 MG TABLET PO SCH (22:21)
[2023-02-06] MEDS: CHLORHEXIDINE GLUCONATE 4% CLEANSER FOR DECOLONIZATION TP SCH (22:21)
[2023-02-06] MEDS: ATORVASTATIN CA 40 MG TABLET (FP) PO SCH (22:21)
[2023-02-07] MEDS: METOPROLOL TARTRATE 5 MG/5 ML VIAL IVPUSH SCH ×6 (00:08→21:11)
[2023-02-07] MEDS: OCTREOTIDE ACETATE 100 MCG/1 ML SQ SCH ×3 (05:16→21:18)
[2023-02-07] MEDS: AZTREONAM 0.5 GM in DEXTROSE 5%-WATER - 50 ML IVPB SCH (06:54)
[2023-02-07] MEDS: LEVOTHYROXINE NA 50 MCG TABLET (FP) PO SCH (06:54)
[2023-02-07] MEDS: HEPARIN NA (PORCINE) 5,000 UNITS/ML 1ML VIAL SQ SCH ×3 (08:17→21:13)
[2023-02-07] MEDS: MIDODRINE HCL 5 MG TABLET PO SCH ×4 (08:18→17:21)
[2023-02-07] MEDS ORDERED: SODIUM CHLORIDE 250 ML IV PRN (08:58)
[2023-02-07 09:37] LABS: HEMATOCRIT 24.9 % (35.4-49); HEMOGLOBIN 7.7 GM/dL (11.7-16.9); MCH 32.1 pg (25.7-33.7); MCHC 30.9 g/dl (32.0-35.9); MEAN CELL VOLUME 103.8 fl (80-96); MEAN PLT VOLUME 7.8 fl (7.5-11.1); PLATELET COUNT 168 10^3/uL (134-434); RDW 17.7 % (11.9-15.9); WHITE BLOOD COUNT 19.1 K/mm3 (4.0-10.0)
[2023-02-07] MEDS ORDERED: PHENYLEPHRINE NS PREMIX 50,000 MCG/500 ML BAG CVP SCH (09:45)
[2023-02-07 09:58] LABS: BLOOD UREA NITROGEN 95.7 mg/dL (7-18)
[2023-02-07 09:59] LABS: CALCIUM 9.1 mg/dL (8.5-10.1)
[2023-02-07] MEDS: ALBUMIN HUMAN 25% 12.5 GM/50 ML VIAL IV SCH ×4 (10:00→12:30)
[2023-02-07 10:02] LABS: CREATININE 5.3 mg/dL (0.55-1.3)
[2023-02-07] MEDS: RIFAXIMIN 550 MG TABLET PO SCH ×2 (12:50→21:16)
[2023-02-07] MEDS: MAG HYDROX/AL HYDROX/SIMETH 30 ML UNIT-DOSE CUP PO SCH ×4 (12:50→22:14)
[2023-02-07] MEDS: AMINO ACIDS/PROTEIN HYDROLYS 30 ML LIQUID.PKT PO SCH ×2 (12:50→17:21)
[2023-02-07] MEDS: COLLAGENASE CLOSTRIDIUM HIST. 30 GRAMS TUBE TP SCH (12:51)
[2023-02-07] MEDS: CHOLECALCIFEROL (VIT D3) 1,000 UNIT (25 MCG) TABLET PO SCH (12:51)
[2023-02-07] MEDS: FERROUS SO4 325 MG TABLET (FP) PO SCH ×3 (12:51→17:21)
[2023-02-07] MEDS: PANTOPRAZOLE 40 MG TABLET PO SCH (12:51)
[2023-02-07] MEDS: DULoxetine HCL 30 MG CAPSULE.DR PO SCH (12:51)
[2023-02-07] MEDS: CARBIDOPA/LEVODOPA 25/100 TABLET (FP) PO SCH ×2 (12:51→21:16)
[2023-02-07] MEDS: VITAMIN B COMP W-C 1 EA TABLET (NEPHRO-VITE) PO SCH (12:51)
[2023-02-07] MEDS: ASCORBIC ACID 500 MG TABLET (FP) PO SCH (12:51)
[2023-02-07] MEDS: ZINC SULFATE 220 MG CAPSULE (FP) PO SCH (12:51)
[2023-02-07] MEDS: MUPIROCIN 2% TOPICAL OINTMENT FOR DECOLONIZATION NS SCH ×2 (12:52→21:21)
[2023-02-07] MEDS: metoPROLOL SUCCINATE 25 MG TAB.SR.24H (FP) PO SCH (12:56)
[2023-02-07 13:00] LABS: ANISOCYTOSIS 0; MACROCYTOSIS 0; OVALOCYTE 1+
[2023-02-07] MEDS ORDERED: VANCOMYCIN PREMIX 1.5 GM 1,500 MG/300 ML BAG IVPB ONE (13:30)
[2023-02-07] MEDS: COLLOIDAL OATMEAL 1 BAR EACH TP PRN (17:22)
[2023-02-07] MEDS: LYTES/YERBA SANTA 60 ML SPRAY MM PRN (17:22)
[2023-02-07] MEDS: HYDROCORTISONE 0.5% TOPICAL CREAM 30 GM TUBE TP PRN (17:22)
[2023-02-07] MEDS: ATORVASTATIN CA 40 MG TABLET (FP) PO SCH (21:16)
[2023-02-07] MEDS: TAMSULOSIN HCL 0.4 MG CAP PO SCH (21:16)
[2023-02-07] MEDS: CHLORHEXIDINE GLUCONATE 4% CLEANSER FOR DECOLONIZATION TP SCH (21:20)
[2023-02-07] MEDS: MELATONIN 1 MG TABLET PO SCH (21:20)
[2023-02-07] MEDS: ACETAMINOPHEN 325 MG TABLET (FP) PO PRN (21:20)
[2023-02-08] MEDS: METOPROLOL TARTRATE 5 MG/5 ML VIAL IVPUSH SCH ×6 (00:57→22:10)
[2023-02-08] MEDS: OCTREOTIDE ACETATE 100 MCG/1 ML SQ SCH ×3 (05:16→21:50)
[2023-02-08] MEDS: LEVOTHYROXINE NA 50 MCG TABLET (FP) PO SCH ×2 (06:18→06:23)
[2023-02-08 07:25] LABS: HEMATOCRIT 25.1 % (35.4-49); HEMOGLOBIN 8.1 GM/dL (11.7-16.9); MCH 33.2 pg (25.7-33.7); MCHC 32.3 g/dl (32.0-35.9); MEAN PLT VOLUME 9.4 fl (7.5-11.1); PLATELET COUNT 176 10^3/uL (134-434); RBC 2.44 M/mm3 (4.00-5.60); RDW 17.5 % (11.9-15.9); WHITE BLOOD COUNT 17.2 K/mm3 (4.0-10.0)
[2023-02-08 08:05] LABS: CALCIUM 8.8 mg/dL (8.5-10.1)
[2023-02-08 08:06] LABS: BLOOD UREA NITROGEN 74.2 mg/dL (7-18); MAGNESIUM 1.9 mg/dL (1.8-2.4)
[2023-02-08 08:09] LABS: CREATININE 4.8 mg/dL (0.55-1.3); PHOSPHOROUS 2.4 mg/dL (2.5-4.9)
[2023-02-08] MEDS: AMINO ACIDS/PROTEIN HYDROLYS 30 ML LIQUID.PKT PO SCH ×2 (09:20→17:08)
[2023-02-08] MEDS: MAG HYDROX/AL HYDROX/SIMETH 30 ML UNIT-DOSE CUP PO SCH ×4 (09:20→21:52)
[2023-02-08] MEDS: RIFAXIMIN 550 MG TABLET PO SCH ×2 (09:20→21:48)
[2023-02-08] MEDS: MIDODRINE HCL 5 MG TABLET PO SCH ×3 (09:21→17:08)
[2023-02-08] MEDS: ASCORBIC ACID 500 MG TABLET (FP) PO SCH (09:21)
[2023-02-08] MEDS: CHOLECALCIFEROL (VIT D3) 1,000 UNIT (25 MCG) TABLET PO SCH (09:21)
[2023-02-08] MEDS: PANTOPRAZOLE 40 MG TABLET PO SCH (09:21)
[2023-02-08] MEDS: DULoxetine HCL 30 MG CAPSULE.DR PO SCH (09:21)
[2023-02-08] MEDS: ZINC SULFATE 220 MG CAPSULE (FP) PO SCH (09:21)
[2023-02-08] MEDS: HEPARIN NA (PORCINE) 5,000 UNITS/ML 1ML VIAL SQ SCH ×2 (09:21→21:51)
[2023-02-08] MEDS: FERROUS SO4 325 MG TABLET (FP) PO SCH ×3 (09:21→17:08)
[2023-02-08] MEDS: diphenhydrAMINE HCL 25 MG CAPSULE (FP) PO PRN (09:21)
[2023-02-08] MEDS: CARBIDOPA/LEVODOPA 25/100 TABLET (FP) PO SCH ×2 (09:21→21:48)
[2023-02-08] MEDS: metoPROLOL SUCCINATE 25 MG TAB.SR.24H (FP) PO SCH (09:23)
[2023-02-08] MEDS: COLLAGENASE CLOSTRIDIUM HIST. 30 GRAMS TUBE TP SCH (09:23)
[2023-02-08] MEDS: MUPIROCIN 2% TOPICAL OINTMENT FOR DECOLONIZATION NS SCH ×2 (09:23→21:51)
[2023-02-08] MEDS: VITAMIN B COMP W-C 1 EA TABLET (NEPHRO-VITE) PO SCH (09:24)
[2023-02-08] MEDS: LYTES/YERBA SANTA 60 ML SPRAY MM PRN (09:27)
[2023-02-08] MEDS: COLLOIDAL OATMEAL 1 BAR EACH TP PRN (09:28)
[2023-02-08] MEDS: MINERAL OIL/PETROLAT/WATER TOPICAL CREAM 454 GM JAR TP PRN (09:44)
[2023-02-08] MEDS ORDERED: AMINO ACIDS 4.25%/D5W 1,000 ML IV SCH (14:00)
[2023-02-08] MEDS: AMINO ACIDS 4.25%/D5W 1,000 ML IV SCH (17:08)
[2023-02-08] MEDS: ATORVASTATIN CA 40 MG TABLET (FP) PO SCH (21:48)
[2023-02-08] MEDS: TAMSULOSIN HCL 0.4 MG CAP PO SCH (21:48)
[2023-02-08] MEDS: CHLORHEXIDINE GLUCONATE 4% CLEANSER FOR DECOLONIZATION TP SCH (21:48)
[2023-02-08] MEDS: MELATONIN 1 MG TABLET PO SCH (21:49)
[2023-02-09] MEDS: METOPROLOL TARTRATE 5 MG/5 ML VIAL IVPUSH SCH ×6 (02:22→21:34)
[2023-02-09] MEDS: OCTREOTIDE ACETATE 100 MCG/1 ML SQ SCH ×3 (06:16→21:59)
[2023-02-09] MEDS: LEVOTHYROXINE NA 50 MCG TABLET (FP) PO SCH (06:19)
[2023-02-09 07:47] LABS: HEMATOCRIT 26.5 % (35.4-49); HEMOGLOBIN 8.5 GM/dL (11.7-16.9); MCH 33.1 pg (25.7-33.7); MCHC 32.1 g/dl (32.0-35.9); MEAN CELL VOLUME 103.1 fl (80-96); MEAN PLT VOLUME 9.4 fl (7.5-11.1); PLATELET COUNT 213 10^3/uL (134-434); RBC 2.57 M/mm3 (4.00-5.60); RDW 17.8 % (11.9-15.9); WHITE BLOOD COUNT 21.1 K/mm3 (4.0-10.0)
[2023-02-09 08:59] LABS: BLOOD UREA NITROGEN 80.6 mg/dL (7-18)
[2023-02-09 09:02] LABS: CREATININE 5.6 mg/dL (0.55-1.3); PHOSPHOROUS 2.9 mg/dL (2.5-4.9)
[2023-02-09] MEDS: FERROUS SO4 325 MG TABLET (FP) PO SCH ×3 (10:15→16:40)
[2023-02-09] MEDS: AMINO ACIDS/PROTEIN HYDROLYS 30 ML LIQUID.PKT PO SCH ×2 (10:38→16:40)
[2023-02-09] MEDS: ASCORBIC ACID 500 MG TABLET (FP) PO SCH (10:39)
[2023-02-09] MEDS: diphenhydrAMINE HCL 25 MG CAPSULE (FP) PO PRN (10:39)
[2023-02-09] MEDS: RIFAXIMIN 550 MG TABLET PO SCH ×2 (10:39→21:32)
[2023-02-09] MEDS: ZINC SULFATE 220 MG CAPSULE (FP) PO SCH (10:39)
[2023-02-09] MEDS: MAG HYDROX/AL HYDROX/SIMETH 30 ML UNIT-DOSE CUP PO SCH ×4 (10:40→21:32)
[2023-02-09] MEDS: MIDODRINE HCL 5 MG TABLET PO SCH ×3 (10:40→17:25)
[2023-02-09] MEDS: VITAMIN B COMP W-C 1 EA TABLET (NEPHRO-VITE) PO SCH (10:40)
[2023-02-09] MEDS: COLLAGENASE CLOSTRIDIUM HIST. 30 GRAMS TUBE TP SCH (10:40)
[2023-02-09] MEDS: metoPROLOL SUCCINATE 25 MG TAB.SR.24H (FP) PO SCH (10:40)
[2023-02-09] MEDS: CARBIDOPA/LEVODOPA 25/100 TABLET (FP) PO SCH ×2 (10:40→21:32)
[2023-02-09] MEDS: DULoxetine HCL 30 MG CAPSULE.DR PO SCH (10:40)
[2023-02-09] MEDS: CHOLECALCIFEROL (VIT D3) 1,000 UNIT (25 MCG) TABLET PO SCH (10:40)
[2023-02-09] MEDS: PANTOPRAZOLE 40 MG TABLET PO SCH (10:40)
[2023-02-09] MEDS: MUPIROCIN 2% TOPICAL OINTMENT FOR DECOLONIZATION NS SCH ×2 (10:41→21:29)
[2023-02-09] MEDS: HYDROCORTISONE 0.5% TOPICAL CREAM 30 GM TUBE TP PRN (10:41)
[2023-02-09] MEDS: COLLOIDAL OATMEAL 1 BAR EACH TP PRN (10:41)
[2023-02-09] MEDS: MINERAL OIL/PETROLAT/WATER TOPICAL CREAM 454 GM JAR TP PRN (10:41)
[2023-02-09] MEDS: HEPARIN NA (PORCINE) 5,000 UNITS/ML 1ML VIAL SQ SCH ×2 (10:41→21:30)
[2023-02-09] MEDS: ACETAMINOPHEN 325 MG TABLET (FP) PO PRN (16:40)
[2023-02-09] MEDS: AMINO ACIDS 4.25%/D5W 1,000 ML IV SCH (16:40)
[2023-02-09] MEDS ORDERED: VANCOMYCIN 500 MG VIAL (RESTRICTED TO ID ONLY) IVPB ONE (17:57)
[2023-02-09] MEDS ORDERED: VANCOMYCIN 500 MG in DEXTROSE 5%-WATER - 100 ML IVPB ONE (19:00)
[2023-02-09] MEDS: TAMSULOSIN HCL 0.4 MG CAP PO SCH (21:30)
[2023-02-09] MEDS: CHLORHEXIDINE GLUCONATE 4% CLEANSER FOR DECOLONIZATION TP SCH (21:32)
[2023-02-09] MEDS: ATORVASTATIN CA 40 MG TABLET (FP) PO SCH (21:32)
[2023-02-09] MEDS: MELATONIN 1 MG TABLET PO SCH (21:59)
[2023-02-10] MEDS: METOPROLOL TARTRATE 5 MG/5 ML VIAL IVPUSH SCH ×6 (01:03→21:45)
[2023-02-10] MEDS: LEVOTHYROXINE NA 50 MCG TABLET (FP) PO SCH (06:33)
[2023-02-10] MEDS: OCTREOTIDE ACETATE 100 MCG/1 ML SQ SCH ×3 (06:33→22:55)
[2023-02-10 07:43] LABS: HEMATOCRIT 25.3 % (35.4-49); HEMOGLOBIN 8.1 GM/dL (11.7-16.9); MCHC 31.9 g/dl (32.0-35.9); MEAN CELL VOLUME 103.6 fl (80-96); MEAN PLT VOLUME 9.3 fl (7.5-11.1); PLATELET COUNT 230 10^3/uL (134-434); RBC 2.45 M/mm3 (4.00-5.60); RDW 17.7 % (11.9-15.9); WHITE BLOOD COUNT 20.1 K/mm3 (4.0-10.0)
[2023-02-10 08:02] LABS: CHLORIDE 106 mmol/L (98-107); SODIUM 142 mmol/L (136-145)
[2023-02-10 08:04] LABS: CALCIUM 8.9 mg/dL (8.5-10.1)
[2023-02-10 08:05] LABS: ALBUMIN 2.9 g/dl (3.4-5.0); ANION GAP 11 MMOL/L (8-16); CO2 25 mmol/L (21-32); GLUCOSE,RANDOM 177 mg/dL (74-106); MAGNESIUM 2.1 mg/dL (1.8-2.4)
[2023-02-10 08:08] LABS: CREATININE 5.9 mg/dL (0.55-1.3); PHOSPHOROUS 2.7 mg/dL (2.5-4.9); SGOT/AST 8 U/L (15-37)
[2023-02-10 08:10] LABS: BILIRUBIN,TOTAL 0.7 mg/dL (0.2-1); TOT PROT 5.6 g/dl (6.4-8.2)
[2023-02-10 08:11] LABS: ALK PHOS 71 U/L (45-117)
[2023-02-10 08:18] LABS: SGPT/ALT < 6 U/L (13-61)
[2023-02-10] MEDS: ALBUMIN HUMAN 25% 12.5 GM/50 ML VIAL IV SCH ×4 (09:00→11:15)
[2023-02-10] MEDS: COLLAGENASE CLOSTRIDIUM HIST. 30 GRAMS TUBE TP SCH (09:42)
[2023-02-10] MEDS: ASCORBIC ACID 500 MG TABLET (FP) PO SCH (09:42)
[2023-02-10] MEDS: MIDODRINE HCL 5 MG TABLET PO SCH ×3 (09:42→17:37)
[2023-02-10] MEDS: DULoxetine HCL 30 MG CAPSULE.DR PO SCH (09:42)
[2023-02-10] MEDS: PANTOPRAZOLE 40 MG TABLET PO SCH (09:42)
[2023-02-10] MEDS: CARBIDOPA/LEVODOPA 25/100 TABLET (FP) PO SCH ×2 (09:42→21:44)
[2023-02-10] MEDS: CHOLECALCIFEROL (VIT D3) 1,000 UNIT (25 MCG) TABLET PO SCH (09:43)
[2023-02-10] MEDS: MAG HYDROX/AL HYDROX/SIMETH 30 ML UNIT-DOSE CUP PO SCH ×4 (09:43→21:42)
[2023-02-10] MEDS: ZINC SULFATE 220 MG CAPSULE (FP) PO SCH (09:43)
[2023-02-10] MEDS: metoPROLOL SUCCINATE 25 MG TAB.SR.24H (FP) PO SCH (09:43)
[2023-02-10] MEDS: HEPARIN NA (PORCINE) 5,000 UNITS/ML 1ML VIAL SQ SCH ×2 (09:43→21:42)
[2023-02-10] MEDS: AMINO ACIDS/PROTEIN HYDROLYS 30 ML LIQUID.PKT PO SCH ×2 (09:44→17:37)
[2023-02-10] MEDS: FERROUS SO4 325 MG TABLET (FP) PO SCH ×3 (09:44→17:36)
[2023-02-10] MEDS: MUPIROCIN 2% TOPICAL OINTMENT FOR DECOLONIZATION NS SCH (09:44)
[2023-02-10] MEDS: RIFAXIMIN 550 MG TABLET PO SCH (09:45)
[2023-02-10] MEDS: VITAMIN B COMP W-C 1 EA TABLET (NEPHRO-VITE) PO SCH (09:45)
[2023-02-10] MEDS ORDERED: EPOETIN ALFA-EPBX 10,000 UNIT/ML VIAL IVPUSH ONE (10:00)
[2023-02-10] MEDS ORDERED: SODIUM CHLORIDE 250 ML IV PRN (10:00)
[2023-02-10] MEDS: AMINO ACIDS 4.25%/D5W 1,000 ML IV SCH (14:53)
[2023-02-10] MEDS: TAMSULOSIN HCL 0.4 MG CAP PO SCH (21:44)
[2023-02-10] MEDS: MELATONIN 1 MG TABLET PO SCH (21:44)
[2023-02-10] MEDS: ATORVASTATIN CA 40 MG TABLET (FP) PO SCH (21:44)
[2023-02-10] MEDS: CHLORHEXIDINE GLUCONATE 4% CLEANSER FOR DECOLONIZATION TP SCH (21:44)
[2023-02-11] MEDS: METOPROLOL TARTRATE 5 MG/5 ML VIAL IVPUSH SCH ×6 (01:36→22:59)
[2023-02-11] MEDS: OCTREOTIDE ACETATE 100 MCG/1 ML SQ SCH ×3 (06:57→22:58)
[2023-02-11] MEDS: LEVOTHYROXINE NA 50 MCG TABLET (FP) PO SCH (06:57)
[2023-02-11] MEDS: AMINO ACIDS/PROTEIN HYDROLYS 30 ML LIQUID.PKT PO SCH ×2 (09:51→16:34)
[2023-02-11] MEDS: metoPROLOL SUCCINATE 25 MG TAB.SR.24H (FP) PO SCH (09:51)
[2023-02-11] MEDS: DULoxetine HCL 30 MG CAPSULE.DR PO SCH (09:52)
[2023-02-11] MEDS: FERROUS SO4 325 MG TABLET (FP) PO SCH ×3 (09:52→16:34)
[2023-02-11] MEDS: HEPARIN NA (PORCINE) 5,000 UNITS/ML 1ML VIAL SQ SCH ×2 (09:52→22:58)
[2023-02-11] MEDS: PANTOPRAZOLE 40 MG TABLET PO SCH (09:53)
[2023-02-11] MEDS: MIDODRINE HCL 5 MG TABLET PO SCH ×3 (09:53→17:07)
[2023-02-11] MEDS: ZINC SULFATE 220 MG CAPSULE (FP) PO SCH (09:53)
[2023-02-11] MEDS: ASCORBIC ACID 500 MG TABLET (FP) PO SCH (09:53)
[2023-02-11] MEDS: CARBIDOPA/LEVODOPA 25/100 TABLET (FP) PO SCH ×2 (09:53→22:58)
[2023-02-11] MEDS: VITAMIN B COMP W-C 1 EA TABLET (NEPHRO-VITE) PO SCH (09:53)
[2023-02-11] MEDS: CHOLECALCIFEROL (VIT D3) 1,000 UNIT (25 MCG) TABLET PO SCH (09:53)
[2023-02-11] MEDS ORDERED: VANCOMYCIN/WATER FOR INJ (PEG) 1,000 MG/200 ML BAG IVPB ONE (14:41)
[2023-02-11] MEDS: AMINO ACIDS 4.25%/D5W 1,000 ML IV SCH (15:25)
[2023-02-11] MEDS: MAG HYDROX/AL HYDROX/SIMETH 30 ML UNIT-DOSE CUP PO SCH ×4 (15:36→22:56)
[2023-02-11] MEDS: COLLAGENASE CLOSTRIDIUM HIST. 30 GRAMS TUBE TP SCH (16:35)
[2023-02-11] MEDS ORDERED: diphenhydrAMINE HCL 25 MG CAPSULE (FP) PO PRN (20:42)
[2023-02-11] MEDS ORDERED: HYDROCORTISONE 0.5% TOPICAL CREAM 30 GM TUBE TP PRN (20:42)
[2023-02-11] MEDS ORDERED: ACETAMINOPHEN 325 MG TABLET (FP) PO PRN (20:42)
[2023-02-11] MEDS ORDERED: COLLOIDAL OATMEAL 1 BAR EACH TP PRN (20:42)
[2023-02-11] MEDS ORDERED: LYTES/YERBA SANTA 60 ML SPRAY MM PRN (20:42)
[2023-02-11] MEDS ORDERED: MINERAL OIL/PETROLAT/WATER TOPICAL CREAM 454 GM JAR TP PRN (20:42)
[2023-02-11] MEDS ORDERED: SENNOSIDES 8.6MG TABLET (FP) PO PRN (20:42)
[2023-02-11] MEDS: TAMSULOSIN HCL 0.4 MG CAP PO SCH (22:57)
[2023-02-11] MEDS: MELATONIN 1 MG TABLET PO SCH (22:57)
[2023-02-11] MEDS: ATORVASTATIN CA 40 MG TABLET (FP) PO SCH (22:57)
[2023-02-12] MEDS: METOPROLOL TARTRATE 5 MG/5 ML VIAL IVPUSH SCH ×6 (01:56→23:34)
[2023-02-12] MEDS: OCTREOTIDE ACETATE 100 MCG/1 ML SQ SCH ×3 (05:42→23:34)
[2023-02-12] MEDS: LEVOTHYROXINE NA 50 MCG TABLET (FP) PO SCH (06:14)
[2023-02-12] MEDS: FERROUS SO4 325 MG TABLET (FP) PO SCH ×3 (08:27→18:05)
[2023-02-12] MEDS: AMINO ACIDS/PROTEIN HYDROLYS 30 ML LIQUID.PKT PO SCH ×2 (08:28→18:05)
[2023-02-12] MEDS ORDERED: POLYETHYLENE GLYCOL (HEALTHYLAX) 3350 17 GM PACKET PO SCH (10:00)
[2023-02-12] MEDS: MIDODRINE HCL 5 MG TABLET PO SCH ×3 (10:31→18:06)
[2023-02-12 10:54] LABS: BASO % 0.2 % (0-2.0); EOS % 0.5 % (0-4.5); HEMATOCRIT 26.6 % (35.4-49); HEMOGLOBIN 8.5 GM/dL (11.7-16.9); LYMPH % 4.4 % (8-40); MCH 33.3 pg (25.7-33.7); MCHC 32.2 g/dl (32.0-35.9); MEAN CELL VOLUME 103.7 fl (80-96); MEAN PLT VOLUME 9.2 fl (7.5-11.1); MONO % 4.9 % (3.8-10.2); PLATELET COUNT 299 10^3/uL (134-434); RBC 2.56 M/mm3 (4.00-5.60); RDW 18.2 % (11.9-15.9); WHITE BLOOD COUNT 15.7 K/mm3 (4.0-10.0)
[2023-02-12 11:22] LABS: CHLORIDE 104 mmol/L (98-107); SODIUM 139 mmol/L (136-145)
[2023-02-12 11:26] LABS: ALBUMIN 3.1 g/dl (3.4-5.0); ANION GAP 9 MMOL/L (8-16); CO2 26 mmol/L (21-32); GLUCOSE,RANDOM 181 mg/dL (74-106)
[2023-02-12 11:29] LABS: CREATININE 5.6 mg/dL (0.55-1.3)
[2023-02-12 11:30] LABS: SGOT/AST 5 U/L (15-37)
[2023-02-12] MEDS: HEPARIN NA (PORCINE) 5,000 UNITS/ML 1ML VIAL SQ SCH ×2 (11:30→23:31)
[2023-02-12 11:31] LABS: BILIRUBIN,TOTAL 0.7 mg/dL (0.2-1)
[2023-02-12 11:32] LABS: ALK PHOS 63 U/L (45-117)
[2023-02-12 11:34] LABS: BLOOD UREA NITROGEN 79.2 mg/dL (7-18)
[2023-02-12 11:37] LABS: SGPT/ALT < 6 U/L (13-61)
[2023-02-12] MEDS: DULoxetine HCL 30 MG CAPSULE.DR PO SCH (12:29)
[2023-02-12] MEDS: COLCHICINE 0.6 MG TAB PO SCH (12:29)
[2023-02-12] MEDS: MAG HYDROX/AL HYDROX/SIMETH 30 ML UNIT-DOSE CUP PO SCH ×4 (12:30→23:28)
[2023-02-12] MEDS: VITAMIN B COMP W-C 1 EA TABLET (NEPHRO-VITE) PO SCH (12:30)
[2023-02-12] MEDS: ZINC SULFATE 220 MG CAPSULE (FP) PO SCH (12:31)
[2023-02-12] MEDS: CARBIDOPA/LEVODOPA 25/100 TABLET (FP) PO SCH ×2 (12:32→23:29)
[2023-02-12] MEDS: PANTOPRAZOLE 40 MG TABLET PO SCH (12:32)
[2023-02-12] MEDS: ASCORBIC ACID 500 MG TABLET (FP) PO SCH (12:33)
[2023-02-12] MEDS: metoPROLOL SUCCINATE 25 MG TAB.SR.24H (FP) PO SCH (12:33)
[2023-02-12] MEDS: CHOLECALCIFEROL (VIT D3) 1,000 UNIT (25 MCG) TABLET PO SCH (12:34)
[2023-02-12] MEDS: COLLAGENASE CLOSTRIDIUM HIST. 30 GRAMS TUBE TP SCH (13:19)
[2023-02-12] MEDS ORDERED: AMINO ACIDS 4.25%/D5W 1,000 ML IV SCH ×2 (14:00→16:22)
[2023-02-12] MEDS ORDERED: SODIUM CHLORIDE 250 ML IV STA (16:22)
[2023-02-12] MEDS: AMINO ACIDS 4.25%/D5W 1,000 ML IV SCH (17:29)
[2023-02-12] MEDS: MELATONIN 1 MG TABLET PO SCH (23:29)
[2023-02-12] MEDS: TAMSULOSIN HCL 0.4 MG CAP PO SCH (23:29)
[2023-02-12] MEDS: ATORVASTATIN CA 40 MG TABLET (FP) PO SCH (23:29)
[2023-02-13] MEDS: METOPROLOL TARTRATE 5 MG/5 ML VIAL IVPUSH SCH ×6 (02:11→21:00)
[2023-02-13] MEDS: OCTREOTIDE ACETATE 100 MCG/1 ML SQ SCH ×2 (06:07→14:09)
[2023-02-13] MEDS: LEVOTHYROXINE NA 50 MCG TABLET (FP) PO SCH (06:07)
[2023-02-13] MEDS: MAG HYDROX/AL HYDROX/SIMETH 30 ML UNIT-DOSE CUP PO SCH ×4 (11:25→22:58)
[2023-02-13] MEDS: AMINO ACIDS/PROTEIN HYDROLYS 30 ML LIQUID.PKT PO SCH ×2 (11:25→17:51)
[2023-02-13] MEDS: ASCORBIC ACID 500 MG TABLET (FP) PO SCH (11:26)
[2023-02-13] MEDS: MIDODRINE HCL 5 MG TABLET PO SCH ×3 (11:26→17:50)
[2023-02-13] MEDS: FERROUS SO4 325 MG TABLET (FP) PO SCH ×3 (11:26→17:50)
[2023-02-13] MEDS: DULoxetine HCL 30 MG CAPSULE.DR PO SCH (11:27)
[2023-02-13] MEDS: ZINC SULFATE 220 MG CAPSULE (FP) PO SCH (11:27)
[2023-02-13] MEDS: metoPROLOL SUCCINATE 25 MG TAB.SR.24H (FP) PO SCH (11:28)
[2023-02-13] MEDS: PANTOPRAZOLE 40 MG TABLET PO SCH (11:28)
[2023-02-13] MEDS: COLCHICINE 0.6 MG TAB PO SCH (11:28)
[2023-02-13] MEDS: CHOLECALCIFEROL (VIT D3) 1,000 UNIT (25 MCG) TABLET PO SCH (11:28)
[2023-02-13] MEDS: CARBIDOPA/LEVODOPA 25/100 TABLET (FP) PO SCH ×2 (11:29→22:58)
[2023-02-13] MEDS: HEPARIN NA (PORCINE) 5,000 UNITS/ML 1ML VIAL SQ SCH ×2 (11:29→22:52)
[2023-02-13] MEDS: COLLAGENASE CLOSTRIDIUM HIST. 30 GRAMS TUBE TP SCH (11:37)
[2023-02-13 12:25] LABS: CHLORIDE 103 mmol/L (98-107); SODIUM 136 mmol/L (136-145)
[2023-02-13 12:28] LABS: CALCIUM 9.5 mg/dL (8.5-10.1); GLUCOSE,RANDOM 176 mg/dL (74-106)
[2023-02-13 12:29] LABS: ALBUMIN 3.1 g/dl (3.4-5.0); ANION GAP 11 MMOL/L (8-16); BLOOD UREA NITROGEN 90.8 mg/dL (7-18); CO2 22 mmol/L (21-32)
[2023-02-13 12:32] LABS: CREATININE 6.2 mg/dL (0.55-1.3); SGOT/AST 7 U/L (15-37); SGPT/ALT < 6 U/L (13-61)
[2023-02-13 12:33] LABS: BILIRUBIN,TOTAL 0.8 mg/dL (0.2-1)
[2023-02-13 12:35] LABS: ALK PHOS 60 U/L (45-117)
[2023-02-13] MEDS: VITAMIN B COMP W-C 1 EA TABLET (NEPHRO-VITE) PO SCH (13:27)
[2023-02-13] MEDS ORDERED: SODIUM CHLORIDE 500 ML IV STA (14:19)
[2023-02-13] MEDS ORDERED: ALBUMIN HUMAN 25% 12.5 GM/50 ML VIAL IV SCH (14:30)
[2023-02-13] MEDS: ALBUMIN HUMAN 25% 100 ML VIAL IV SCH ×2 (17:44→21:00)
[2023-02-13] MEDS: AMINO ACIDS 4.25%/D5W 1,000 ML IV SCH (20:00)
[2023-02-13] MEDS: MELATONIN 1 MG TABLET PO SCH (22:58)
[2023-02-13] MEDS: TAMSULOSIN HCL 0.4 MG CAP PO SCH (22:58)
[2023-02-13] MEDS: ATORVASTATIN CA 40 MG TABLET (FP) PO SCH (22:58)
[2023-02-14] MEDS: METOPROLOL TARTRATE 5 MG/5 ML VIAL IVPUSH SCH ×6 (01:15→21:00)
[2023-02-14] MEDS: OCTREOTIDE ACETATE 100 MCG/1 ML SQ SCH ×5 (01:31→22:00)
[2023-02-14] MEDS: LEVOTHYROXINE NA 50 MCG TABLET (FP) PO SCH (06:00)
[2023-02-14] MEDS: AMINO ACIDS/PROTEIN HYDROLYS 30 ML LIQUID.PKT PO SCH ×2 (08:55→18:23)
[2023-02-14] MEDS: FERROUS SO4 325 MG TABLET (FP) PO SCH ×3 (08:55→18:23)
[2023-02-14] MEDS: MIDODRINE HCL 5 MG TABLET PO SCH ×3 (09:10→19:23)
[2023-02-14] MEDS: CARBIDOPA/LEVODOPA 25/100 TABLET (FP) PO SCH ×2 (09:11→23:52)
[2023-02-14] MEDS: COLCHICINE 0.6 MG TAB PO SCH (09:11)
[2023-02-14] MEDS: PANTOPRAZOLE 40 MG TABLET PO SCH (09:11)
[2023-02-14] MEDS: VITAMIN B COMP W-C 1 EA TABLET (NEPHRO-VITE) PO SCH (09:11)
[2023-02-14] MEDS: CHOLECALCIFEROL (VIT D3) 1,000 UNIT (25 MCG) TABLET PO SCH (09:12)
[2023-02-14] MEDS: DULoxetine HCL 30 MG CAPSULE.DR PO SCH (09:12)
[2023-02-14] MEDS: HEPARIN NA (PORCINE) 5,000 UNITS/ML 1ML VIAL SQ SCH ×2 (09:12→23:51)
[2023-02-14] MEDS: ZINC SULFATE 220 MG CAPSULE (FP) PO SCH (09:12)
[2023-02-14] MEDS: ASCORBIC ACID 500 MG TABLET (FP) PO SCH (09:12)
[2023-02-14] MEDS: metoPROLOL SUCCINATE 25 MG TAB.SR.24H (FP) PO SCH (09:12)
[2023-02-14] MEDS: MAG HYDROX/AL HYDROX/SIMETH 30 ML UNIT-DOSE CUP PO SCH ×4 (09:13→23:52)
[2023-02-14] MEDS: COLLAGENASE CLOSTRIDIUM HIST. 30 GRAMS TUBE TP SCH (12:00)
[2023-02-14] MEDS: AMINO ACIDS 4.25%/D5W 1,000 ML IV SCH (19:19)
[2023-02-14] MEDS: TAMSULOSIN HCL 0.4 MG CAP PO SCH (23:51)
[2023-02-14] MEDS: MELATONIN 1 MG TABLET PO SCH (23:52)
[2023-02-14] MEDS: ATORVASTATIN CA 40 MG TABLET (FP) PO SCH (23:52)
[2023-02-15] MEDS: METOPROLOL TARTRATE 5 MG/5 ML VIAL IVPUSH SCH ×6 (01:41→23:08)
[2023-02-15] MEDS: OCTREOTIDE ACETATE 100 MCG/1 ML SQ SCH ×3 (05:41→22:00)
[2023-02-15] MEDS: LEVOTHYROXINE NA 50 MCG TABLET (FP) PO SCH (06:17)
[2023-02-15] MEDS ORDERED: diphenhydrAMINE HCL 25 MG CAPSULE (FP) PO PRN (07:10)
[2023-02-15] MEDS ORDERED: LYTES/YERBA SANTA 60 ML SPRAY MM PRN (07:10)
[2023-02-15] MEDS ORDERED: HYDROCORTISONE 0.5% TOPICAL CREAM 30 GM TUBE TP PRN (07:10)
[2023-02-15] MEDS ORDERED: MINERAL OIL/PETROLAT/WATER TOPICAL CREAM 454 GM JAR TP PRN (07:10)
[2023-02-15] MEDS ORDERED: ACETAMINOPHEN 325 MG TABLET (FP) PO PRN (07:10)
[2023-02-15] MEDS ORDERED: COLLOIDAL OATMEAL 1 BAR EACH TP PRN (07:10)
[2023-02-15] MEDS ORDERED: SENNOSIDES 8.6MG TABLET (FP) PO PRN (07:10)
[2023-02-15] MEDS ORDERED: COLCHICINE 0.6 MG TAB PO SCH (10:00)
[2023-02-15] MEDS ORDERED: MAG HYDROX/AL HYDROX/SIMETH 30 ML UNIT-DOSE CUP PO SCH (10:00)
[2023-02-15] MEDS: AMINO ACIDS/PROTEIN HYDROLYS 30 ML LIQUID.PKT PO SCH ×2 (10:28→17:24)
[2023-02-15] MEDS: FERROUS SO4 325 MG TABLET (FP) PO SCH ×3 (10:28→17:23)
[2023-02-15] MEDS: TAMSULOSIN HCL 0.4 MG CAP PO SCH (10:37)
[2023-02-15] MEDS: MIDODRINE HCL 5 MG TABLET PO SCH ×3 (10:38→17:23)
[2023-02-15] MEDS: PANTOPRAZOLE 40 MG TABLET PO SCH (10:38)
[2023-02-15] MEDS: CARBIDOPA/LEVODOPA 25/100 TABLET (FP) PO SCH ×2 (10:38→23:09)
[2023-02-15] MEDS: DULoxetine HCL 30 MG CAPSULE.DR PO SCH (10:39)
[2023-02-15] MEDS: ZINC SULFATE 220 MG CAPSULE (FP) PO SCH (10:40)
[2023-02-15] MEDS: CHOLECALCIFEROL (VIT D3) 1,000 UNIT (25 MCG) TABLET PO SCH (10:40)
[2023-02-15] MEDS: HEPARIN NA (PORCINE) 5,000 UNITS/ML 1ML VIAL SQ SCH ×2 (10:41→23:10)
[2023-02-15] MEDS: VITAMIN B COMP W-C 1 EA TABLET (NEPHRO-VITE) PO SCH (10:41)
[2023-02-15] MEDS: COLLAGENASE CLOSTRIDIUM HIST. 30 GRAMS TUBE TP SCH (10:42)
[2023-02-15] MEDS: ASCORBIC ACID 500 MG TABLET (FP) PO SCH (10:43)
[2023-02-15] MEDS: metoPROLOL SUCCINATE 25 MG TAB.SR.24H (FP) PO SCH (10:43)
[2023-02-15 13:27] LABS: HEMATOCRIT 28.1 % (35.4-49); HEMOGLOBIN 8.8 GM/dL (11.7-16.9); MCH 33.2 pg (25.7-33.7); MCHC 31.3 g/dl (32.0-35.9); MEAN CELL VOLUME 106.2 fl (80-96); MEAN PLT VOLUME 8.8 fl (7.5-11.1); PLATELET COUNT 288 10^3/uL (134-434); RBC 2.65 M/mm3 (4.00-5.60); RDW 18.7 % (11.9-15.9); WHITE BLOOD COUNT 12.5 K/mm3 (4.0-10.0)
[2023-02-15 13:56] LABS: CHLORIDE 103 mmol/L (98-107); SODIUM 138 mmol/L (136-145)
[2023-02-15 13:58] LABS: CALCIUM 8.7 mg/dL (8.5-10.1)
[2023-02-15 13:59] LABS: ALBUMIN 3.5 g/dl (3.4-5.0); ANION GAP 14 MMOL/L (8-16); CO2 22 mmol/L (21-32); GLUCOSE,RANDOM 199 mg/dL (74-106)
[2023-02-15 14:02] LABS: CREATININE 7.1 mg/dL (0.55-1.3); SGOT/AST 11 U/L (15-37); SGPT/ALT 6 U/L (13-61)
[2023-02-15 14:03] LABS: BILIRUBIN,TOTAL 0.8 mg/dL (0.2-1)
[2023-02-15 14:04] LABS: TOT PROT 6.5 g/dl (6.4-8.2)
[2023-02-15 14:05] LABS: ALK PHOS 59 U/L (45-117)
[2023-02-15 14:11] LABS: BLOOD UREA NITROGEN 105.2 mg/dL (7-18)
[2023-02-15 14:57] LABS: ANISOCYTOSIS 0; MACROCYTOSIS 1+; OVALOCYTE 1+
[2023-02-15] MEDS: AMINO ACIDS 4.25%/D5W 1,000 ML IV SCH (17:22)
[2023-02-15] MEDS ORDERED: MELATONIN 1 MG TABLET PO SCH (22:00)
[2023-02-15] MEDS: ATORVASTATIN CA 40 MG TABLET (FP) PO SCH (23:09)
[2023-02-16] MEDS: METOPROLOL TARTRATE 5 MG/5 ML VIAL IVPUSH SCH ×6 (01:18→21:14)
[2023-02-16] MEDS: LEVOTHYROXINE NA 50 MCG TABLET (FP) PO SCH (07:07)
[2023-02-16] MEDS: OCTREOTIDE ACETATE 100 MCG/1 ML SQ SCH ×3 (07:07→21:16)
[2023-02-16 08:17] LABS: BASO % 0.3 % (0-2.0); EOS % 0.7 % (0-4.5); HEMATOCRIT 28.6 % (35.4-49); HEMOGLOBIN 8.8 GM/dL (11.7-16.9); LYMPH % 5.2 % (8-40); MCH 32.9 pg (25.7-33.7); MCHC 30.9 g/dl (32.0-35.9); MEAN CELL VOLUME 106.6 fl (80-96); MEAN PLT VOLUME 8.4 fl (7.5-11.1); MONO % 3.9 % (3.8-10.2); NEUT % 89.9 % (42.8-82.8); PLATELET COUNT 300 10^3/uL (134-434); RBC 2.69 M/mm3 (4.00-5.60); RDW 18.7 % (11.9-15.9)
[2023-02-16 08:39] LABS: CHLORIDE 102 mmol/L (98-107); SODIUM 136 mmol/L (136-145)
[2023-02-16 08:41] LABS: CALCIUM 8.9 mg/dL (8.5-10.1)
[2023-02-16 08:42] LABS: ALBUMIN 3.4 g/dl (3.4-5.0); ANION GAP 12 MMOL/L (8-16); CO2 23 mmol/L (21-32); GLUCOSE,RANDOM 171 mg/dL (74-106)
[2023-02-16 08:45] LABS: CREATININE 7.4 mg/dL (0.55-1.3); SGOT/AST 6 U/L (15-37)
[2023-02-16 08:47] LABS: BILIRUBIN,TOTAL 0.9 mg/dL (0.2-1); TOT PROT 6.4 g/dl (6.4-8.2)
[2023-02-16 08:48] LABS: ALK PHOS 63 U/L (45-117)
[2023-02-16 08:49] LABS: BLOOD UREA NITROGEN 113.6 mg/dL (7-18); SGPT/ALT < 6 U/L (13-61)
[2023-02-16] MEDS: ZINC SULFATE 220 MG CAPSULE (FP) PO SCH (10:34)
[2023-02-16] MEDS: PANTOPRAZOLE 40 MG TABLET PO SCH (10:34)
[2023-02-16] MEDS: TAMSULOSIN HCL 0.4 MG CAP PO SCH (10:34)
[2023-02-16] MEDS: DULoxetine HCL 30 MG CAPSULE.DR PO SCH (10:35)
[2023-02-16] MEDS: MIDODRINE HCL 5 MG TABLET PO SCH ×3 (10:35→17:24)
[2023-02-16] MEDS: CHOLECALCIFEROL (VIT D3) 1,000 UNIT (25 MCG) TABLET PO SCH (10:36)
[2023-02-16] MEDS: CARBIDOPA/LEVODOPA 25/100 TABLET (FP) PO SCH ×2 (10:36→21:15)
[2023-02-16] MEDS: HEPARIN NA (PORCINE) 5,000 UNITS/ML 1ML VIAL SQ SCH ×2 (10:36→21:15)
[2023-02-16] MEDS: FERROUS SO4 325 MG TABLET (FP) PO SCH ×3 (10:36→17:23)
[2023-02-16] MEDS: AMINO ACIDS/PROTEIN HYDROLYS 30 ML LIQUID.PKT PO SCH ×2 (10:37→17:24)
[2023-02-16] MEDS: VITAMIN B COMP W-C 1 EA TABLET (NEPHRO-VITE) PO SCH (10:43)
[2023-02-16] MEDS: ASCORBIC ACID 500 MG TABLET (FP) PO SCH (10:43)
[2023-02-16] MEDS: metoPROLOL SUCCINATE 25 MG TAB.SR.24H (FP) PO SCH (10:44)
[2023-02-16] MEDS: COLLAGENASE CLOSTRIDIUM HIST. 30 GRAMS TUBE TP SCH (10:46)
[2023-02-16] MEDS: AMINO ACIDS 4.25%/D5W 1,000 ML IV SCH (16:12)
[2023-02-16] MEDS: ATORVASTATIN CA 40 MG TABLET (FP) PO SCH (21:15)
[2023-02-17] MEDS: LEVOTHYROXINE NA 50 MCG TABLET (FP) PO SCH (06:29)
[2023-02-17] MEDS: OCTREOTIDE ACETATE 100 MCG/1 ML SQ SCH ×3 (06:29→21:34)
[2023-02-17 07:23] LABS: HEMATOCRIT 26.5 % (35.4-49); HEMOGLOBIN 8.6 GM/dL (11.7-16.9); MCH 34.1 pg (25.7-33.7); MCHC 32.4 g/dl (32.0-35.9); MEAN CELL VOLUME 105.3 fl (80-96); MEAN PLT VOLUME 8.7 fl (7.5-11.1); PLATELET COUNT 259 10^3/uL (134-434); RBC 2.51 M/mm3 (4.00-5.60); RDW 18.7 % (11.9-15.9); WHITE BLOOD COUNT 10.9 K/mm3 (4.0-10.0)
[2023-02-17 07:39] LABS: CHLORIDE 102 mmol/L (98-107); SODIUM 135 mmol/L (136-145)
[2023-02-17 07:42] LABS: CALCIUM 9.3 mg/dL (8.5-10.1)
[2023-02-17 07:43] LABS: ALBUMIN 3.4 g/dl (3.4-5.0); ANION GAP 10 MMOL/L (8-16); CO2 23 mmol/L (21-32); GLUCOSE,RANDOM 140 mg/dL (74-106)
[2023-02-17 07:46] LABS: SGOT/AST 8 U/L (15-37); SGPT/ALT 7 U/L (13-61)
[2023-02-17 07:48] LABS: BILIRUBIN,TOTAL 0.8 mg/dL (0.2-1); TOT PROT 6.4 g/dl (6.4-8.2)
[2023-02-17 07:49] LABS: ALK PHOS 63 U/L (45-117)
[2023-02-17 08:16] LABS: BLOOD UREA NITROGEN 115.6 mg/dL (7-18)
[2023-02-17 08:43] LABS: ANISOCYTOSIS 1+; MACROCYTOSIS 1+; TEAR DROP CELLS 1+
[2023-02-17] MEDS: CARBIDOPA/LEVODOPA 25/100 TABLET (FP) PO SCH ×2 (09:35→21:35)
[2023-02-17] MEDS: CHOLECALCIFEROL (VIT D3) 1,000 UNIT (25 MCG) TABLET PO SCH (09:35)
[2023-02-17] MEDS: MIDODRINE HCL 5 MG TABLET PO SCH ×3 (09:35→18:12)
[2023-02-17] MEDS: TAMSULOSIN HCL 0.4 MG CAP PO SCH (09:36)
[2023-02-17] MEDS: PANTOPRAZOLE 40 MG TABLET PO SCH (09:36)
[2023-02-17] MEDS: metoPROLOL SUCCINATE 25 MG TAB.SR.24H (FP) PO SCH (09:36)
[2023-02-17] MEDS: FERROUS SO4 325 MG TABLET (FP) PO SCH ×3 (09:36→18:12)
[2023-02-17] MEDS: VITAMIN B COMP W-C 1 EA TABLET (NEPHRO-VITE) PO SCH (09:36)
[2023-02-17] MEDS: HEPARIN NA (PORCINE) 5,000 UNITS/ML 1ML VIAL SQ SCH ×2 (09:37→21:34)
[2023-02-17] MEDS: ZINC SULFATE 220 MG CAPSULE (FP) PO SCH (09:37)
[2023-02-17] MEDS: DULoxetine HCL 30 MG CAPSULE.DR PO SCH (09:37)
[2023-02-17] MEDS: AMINO ACIDS/PROTEIN HYDROLYS 30 ML LIQUID.PKT PO SCH ×2 (09:37→18:12)
[2023-02-17] MEDS: COLLAGENASE CLOSTRIDIUM HIST. 30 GRAMS TUBE TP SCH (09:38)
[2023-02-17] MEDS: ASCORBIC ACID 500 MG TABLET (FP) PO SCH (09:38)
[2023-02-17] MEDS: AMINO ACIDS 4.25%/D5W 1,000 ML IV SCH ×2 (16:34→18:11)
[2023-02-17] MEDS: ATORVASTATIN CA 40 MG TABLET (FP) PO SCH (21:34)
[2023-02-18] MEDS: LEVOTHYROXINE NA 50 MCG TABLET (FP) PO SCH (06:57)
[2023-02-18] MEDS: OCTREOTIDE ACETATE 100 MCG/1 ML SQ SCH ×3 (06:57→22:23)
[2023-02-18] MEDS: MIDODRINE HCL 5 MG TABLET PO SCH ×3 (10:15→17:27)
[2023-02-18] MEDS: ZINC SULFATE 220 MG CAPSULE (FP) PO SCH (10:15)
[2023-02-18] MEDS: CARBIDOPA/LEVODOPA 25/100 TABLET (FP) PO SCH ×2 (10:15→21:57)
[2023-02-18] MEDS: CHOLECALCIFEROL (VIT D3) 1,000 UNIT (25 MCG) TABLET PO SCH (10:16)
[2023-02-18] MEDS: metoPROLOL SUCCINATE 25 MG TAB.SR.24H (FP) PO SCH (10:17)
[2023-02-18] MEDS: DULoxetine HCL 30 MG CAPSULE.DR PO SCH (10:17)
[2023-02-18] MEDS: FERROUS SO4 325 MG TABLET (FP) PO SCH ×3 (10:17→17:27)
[2023-02-18] MEDS: PANTOPRAZOLE 40 MG TABLET PO SCH (10:18)
[2023-02-18] MEDS: HEPARIN NA (PORCINE) 5,000 UNITS/ML 1ML VIAL SQ SCH ×2 (10:18→21:57)
[2023-02-18] MEDS: VITAMIN B COMP W-C 1 EA TABLET (NEPHRO-VITE) PO SCH (10:18)
[2023-02-18] MEDS: COLLAGENASE CLOSTRIDIUM HIST. 30 GRAMS TUBE TP SCH (10:18)
[2023-02-18] MEDS: AMINO ACIDS/PROTEIN HYDROLYS 30 ML LIQUID.PKT PO SCH ×2 (10:18→17:27)
[2023-02-18] MEDS: TAMSULOSIN HCL 0.4 MG CAP PO SCH (10:18)
[2023-02-18] MEDS: ASCORBIC ACID 500 MG TABLET (FP) PO SCH (10:19)
[2023-02-18] MEDS: AMINO ACIDS 4.25%/D5W 1,000 ML IV SCH (17:27)
[2023-02-18] MEDS: ATORVASTATIN CA 40 MG TABLET (FP) PO SCH (21:57)
[2023-02-19] MEDS: LEVOTHYROXINE NA 50 MCG TABLET (FP) PO SCH (06:58)
[2023-02-19] MEDS: OCTREOTIDE ACETATE 100 MCG/1 ML SQ SCH ×3 (06:58→22:12)
[2023-02-19] MEDS: FERROUS SO4 325 MG TABLET (FP) PO SCH ×3 (08:38→18:46)
[2023-02-19] MEDS: AMINO ACIDS/PROTEIN HYDROLYS 30 ML LIQUID.PKT PO SCH ×3 (08:39→19:11)
[2023-02-19 10:02] LABS: HEMATOCRIT 25.4 % (35.4-49); HEMOGLOBIN 8.2 GM/dL (11.7-16.9); MCHC 32.1 g/dl (32.0-35.9); MEAN CELL VOLUME 105.8 fl (80-96); PLATELET COUNT 198 10^3/uL (134-434); RDW 19.7 % (11.9-15.9); WHITE BLOOD COUNT 9.5 K/mm3 (4.0-10.0)
[2023-02-19 10:24] LABS: CALCIUM 9.1 mg/dL (8.5-10.1)
[2023-02-19 10:28] LABS: CREATININE 5.2 mg/dL (0.55-1.3)
[2023-02-19 10:40] LABS: BLOOD UREA NITROGEN 76.7 mg/dL (7-18)
[2023-02-19] MEDS ORDERED: SODIUM CHLORIDE 250 ML IV PRN ×2 (11:05→13:11)
[2023-02-19] MEDS ORDERED: EPOETIN ALFA-EPBX 10,000 UNIT/ML VIAL IVPUSH ONE (11:44)
[2023-02-19] MEDS: TAMSULOSIN HCL 0.4 MG CAP PO SCH (11:48)
[2023-02-19] MEDS: MIDODRINE HCL 5 MG TABLET PO SCH ×3 (11:48→18:46)
[2023-02-19] MEDS: DULoxetine HCL 30 MG CAPSULE.DR PO SCH (11:49)
[2023-02-19] MEDS: ZINC SULFATE 220 MG CAPSULE (FP) PO SCH (11:49)
[2023-02-19] MEDS: ASCORBIC ACID 500 MG TABLET (FP) PO SCH (11:49)
[2023-02-19] MEDS: VITAMIN B COMP W-C 1 EA TABLET (NEPHRO-VITE) PO SCH (11:49)
[2023-02-19] MEDS: CHOLECALCIFEROL (VIT D3) 1,000 UNIT (25 MCG) TABLET PO SCH (11:50)
[2023-02-19] MEDS: PANTOPRAZOLE 40 MG TABLET PO SCH (11:50)
[2023-02-19] MEDS: CARBIDOPA/LEVODOPA 25/100 TABLET (FP) PO SCH ×2 (11:51→22:11)
[2023-02-19] MEDS: metoPROLOL SUCCINATE 25 MG TAB.SR.24H (FP) PO SCH (11:51)
[2023-02-19] MEDS: HEPARIN NA (PORCINE) 5,000 UNITS/ML 1ML VIAL SQ SCH ×2 (11:51→22:12)
[2023-02-19] MEDS: KCL 10 MEQ IVPB 10 MEQ/100 ML INFUS.BAG IVPB SCH ×2 (12:58→13:58)
[2023-02-19] MEDS ORDERED: metoPROLOL SUCCINATE 25 MG TAB.SR.24H (FP) PO ONE (12:59)
[2023-02-19] MEDS ORDERED: AMIODARONE IN DEXTROSE,ISO-OSM 150 MG/100 ML BAG IVPB ONE (13:00)
[2023-02-19] MEDS: COLLAGENASE CLOSTRIDIUM HIST. 30 GRAMS TUBE TP SCH (13:26)
[2023-02-19 13:32] LABS: MAGNESIUM 1.9 mg/dL (1.8-2.4)
[2023-02-19 13:35] LABS: PHOSPHOROUS 3.3 mg/dL (2.5-4.9)
[2023-02-19] MEDS: METOPROLOL TARTRATE 25 MG TABLET (FP) PO SCH ×2 (13:59→22:12)
[2023-02-19] MEDS ORDERED: METOPROLOL TARTRATE 50 MG TABLET (FP) PO SCH ×2 (14:00→22:00)
[2023-02-19] MEDS: AMINO ACIDS 4.25%/D5W 1,000 ML IV SCH (16:20)
[2023-02-19] MEDS: ATORVASTATIN CA 40 MG TABLET (FP) PO SCH (22:12)
[2023-02-20] MEDS: METOPROLOL TARTRATE 25 MG TABLET (FP) PO SCH ×3 (06:32→21:30)
[2023-02-20] MEDS: OCTREOTIDE ACETATE 100 MCG/1 ML SQ SCH ×3 (06:33→21:31)
[2023-02-20] MEDS: LEVOTHYROXINE NA 50 MCG TABLET (FP) PO SCH (06:33)
[2023-02-20] MEDS: AMINO ACIDS/PROTEIN HYDROLYS 30 ML LIQUID.PKT PO SCH ×2 (09:01→18:36)
[2023-02-20] MEDS: FERROUS SO4 325 MG TABLET (FP) PO SCH ×3 (09:01→18:36)
[2023-02-20] MEDS ORDERED: metoPROLOL SUCCINATE 25 MG TAB.SR.24H (FP) PO SCH (10:00)
[2023-02-20] MEDS ORDERED: SODIUM CHLORIDE 250 ML IV PRN (10:24)
[2023-02-20] MEDS: ZINC SULFATE 220 MG CAPSULE (FP) PO SCH (10:56)
[2023-02-20] MEDS: MIDODRINE HCL 5 MG TABLET PO SCH ×3 (10:56→19:36)
[2023-02-20] MEDS: VITAMIN B COMP W-C 1 EA TABLET (NEPHRO-VITE) PO SCH (10:56)
[2023-02-20] MEDS: PANTOPRAZOLE 40 MG TABLET PO SCH (10:56)
[2023-02-20] MEDS: DULoxetine HCL 30 MG CAPSULE.DR PO SCH (10:56)
[2023-02-20] MEDS: CARBIDOPA/LEVODOPA 25/100 TABLET (FP) PO SCH ×2 (10:56→21:31)
[2023-02-20] MEDS: COLLAGENASE CLOSTRIDIUM HIST. 30 GRAMS TUBE TP SCH (10:57)
[2023-02-20] MEDS: CHOLECALCIFEROL (VIT D3) 1,000 UNIT (25 MCG) TABLET PO SCH (10:57)
[2023-02-20] MEDS: ASCORBIC ACID 500 MG TABLET (FP) PO SCH (10:57)
[2023-02-20] MEDS: HEPARIN NA (PORCINE) 5,000 UNITS/ML 1ML VIAL SQ SCH ×2 (10:57→21:29)
[2023-02-20] MEDS: TAMSULOSIN HCL 0.4 MG CAP PO SCH (10:57)
[2023-02-20] MEDS: AMINO ACIDS 4.25%/D5W 1,000 ML IV SCH (11:46)
[2023-02-20] MEDS: METOPROLOL TARTRATE 5 MG/5 ML VIAL IVPUSH PRN (15:13)
[2023-02-20] MEDS ORDERED: ATORVASTATIN CA 20 MG TABLET (FP) ONE (21:19)
[2023-02-20] MEDS: ATORVASTATIN CA 40 MG TABLET (FP) PO SCH (21:30)
[2023-02-21] MEDS: METOPROLOL TARTRATE 25 MG TABLET (FP) PO SCH (05:49)
[2023-02-21] MEDS: OCTREOTIDE ACETATE 100 MCG/1 ML SQ SCH (05:50)
[2023-02-21] MEDS: LEVOTHYROXINE NA 50 MCG TABLET (FP) PO SCH (06:17)
[2023-02-21] MEDS: AMINO ACIDS/PROTEIN HYDROLYS 30 ML LIQUID.PKT PO SCH (08:18)
[2023-02-21] MEDS: FERROUS SO4 325 MG TABLET (FP) PO SCH ×2 (08:18→11:02)
[2023-02-21] MEDS: TAMSULOSIN HCL 0.4 MG CAP PO SCH (08:18)
[2023-02-21] MEDS ORDERED: EPOETIN ALFA-EPBX 10,000 UNIT/ML VIAL IVPUSH ONE (08:30)
[2023-02-21 08:56] VITALS: TEMP 99
[2023-02-21] MEDS: VITAMIN B COMP W-C 1 EA TABLET (NEPHRO-VITE) PO SCH (09:24)
[2023-02-21] MEDS: DULoxetine HCL 30 MG CAPSULE.DR PO SCH (09:24)
[2023-02-21] MEDS: MIDODRINE HCL 5 MG TABLET PO SCH (09:24)
[2023-02-21] MEDS: ZINC SULFATE 220 MG CAPSULE (FP) PO SCH (09:24)
[2023-02-21] MEDS: ASCORBIC ACID 500 MG TABLET (FP) PO SCH (09:25)
[2023-02-21] MEDS: CHOLECALCIFEROL (VIT D3) 1,000 UNIT (25 MCG) TABLET PO SCH (09:25)
[2023-02-21] MEDS: CARBIDOPA/LEVODOPA 25/100 TABLET (FP) PO SCH (09:25)
[2023-02-21] MEDS: PANTOPRAZOLE 40 MG TABLET PO SCH (09:25)
[2023-02-21] MEDS: COLLAGENASE CLOSTRIDIUM HIST. 30 GRAMS TUBE TP SCH (09:26)
[2023-02-21 09:32] LABS: HEMATOCRIT 28.4 % (35.4-49); HEMOGLOBIN 8.7 GM/dL (11.7-16.9); MCH 32.7 pg (25.7-33.7); MCHC 30.6 g/dl (32.0-35.9); MEAN CELL VOLUME 107.1 fl (80-96); MEAN PLT VOLUME 9.7 fl (7.5-11.1); PLATELET COUNT 188 10^3/uL (134-434); RBC 2.65 M/mm3 (4.00-5.60); RDW 19.7 % (11.9-15.9); WHITE BLOOD COUNT 11.1 K/mm3 (4.0-10.0)
[2023-02-21 09:49] LABS: CALCIUM 8.6 mg/dL (8.5-10.1)
[2023-02-21 09:50] LABS: BLOOD UREA NITROGEN 69.9 mg/dL (7-18); MAGNESIUM 1.8 mg/dL (1.8-2.4)
[2023-02-21 09:54] LABS: CREATININE 4.9 mg/dL (0.55-1.3); PHOSPHOROUS 3.4 mg/dL (2.5-4.9)
[2023-02-21] MEDS: AMINO ACIDS 4.25%/D5W 1,000 ML IV SCH (11:01)
[2023-02-21] MEDS: HEPARIN NA (PORCINE) 5,000 UNITS/ML 1ML VIAL SQ SCH (11:56)
[2023-02-21] MEDS: METOPROLOL TARTRATE 5 MG/5 ML VIAL IVPUSH PRN (12:30)
[2023-02-21] MEDS ORDERED: GLUCAGON 1 MG KIT IVPUSH ONE (12:50)
[2023-02-21] MEDS ORDERED: RAPID SEQUENCE INTUBATION KIT NR ONE (12:52)
[2023-02-21] MEDS ORDERED: DOPAMINE 400 MG/D5W - 400,000 MCG/250 ML INFUS.BAG IVPB SCH (13:00)
[2023-02-21] MEDS ORDERED: LACTATED RINGERS SOLUTION 1,000 ML/1,000 ML INFUS.BAG IV ONE (13:00)
[2023-02-21] MEDS ORDERED: FENTANYL NS IVPB 500 MCG/100 ML BAG IVPB SCH (13:15)
[2023-02-21] MEDS ORDERED: MIDAZOLAM IN 0.9 % SOD.CHLORID 100 MG/100 ML PLAST..BAG IVPB SCH (13:15)
[2023-02-21] MEDS ORDERED: VASOPRESSIN 40 UNITS/100 ML BAG IV SCH (13:15)
[2023-02-21] MEDS ORDERED: NOREPINEPHRINE BITARTRATE/D5W 8 MG/250 ML BAG IVPB SCH (13:15)
[2023-02-21 13:16] VITALS: BP 110/50; PULSE 90
[2023-02-21 13:41] VITALS: RESP 16
== END 2023-02-21 15:10 | disposition expired | DRG 871 ==
LOC: JER 18:51 → JERBED 21:46 → J4W 01-26 16:59 → JICU 02-05 16:17 → J7W 02-10 18:24 → J4W 02-13 17:27 → JICU 02-21 13:35
PROVIDERS: ADMIT Internal Medicine; ATTEND Internal Medicine
PROC: 0W9G3ZX Drainage of Peritoneal Cavity, Percutaneous Approach, Diagnostic (ICD-10-PCS; principal; 2023-01-27)
PROC: 06HM33Z Insertion of Infusion Device into Right Femoral Vein, Percutaneous Approach (ICD-10-PCS; 2023-02-05)
PROC: B54BZZA Ultrasonography of Right Lower Extremity Veins, Guidance (ICD-10-PCS; 2023-02-05)
PROC: 5A1D70Z Performance of Urinary Filtration, Intermittent, Less than 6 Hours Per Day (ICD-10-PCS; 2023-02-05)
PROC: 5A1D70Z Performance of Urinary Filtration, Intermittent, Less than 6 Hours Per Day (ICD-10-PCS; 2023-02-06)
PROC: 06HN33Z Insertion of Infusion Device into Left Femoral Vein, Percutaneous Approach (ICD-10-PCS; 2023-02-17)
PROC: B54CZZA Ultrasonography of Left Lower Extremity Veins, Guidance (ICD-10-PCS; 2023-02-17)
PROC: 0BH17EZ Insertion of Endotracheal Airway into Trachea, Via Natural or Artificial Opening (ICD-10-PCS; 2023-02-21)
PROC: 5A1935Z Respiratory Ventilation, Less than 24 Consecutive Hours (ICD-10-PCS; 2023-02-21)
DX: A41.9 Sepsis, unspecified organism (principal); I50.43 Acute on chronic combined systolic (congestive) and diastolic (congestive) heart failure; J18.9 Pneumonia, unspecified organism; N18.6 End stage renal disease; R18.8 Other ascites; I13.2 Hypertensive heart and chronic kidney disease with heart failure and with stage 5 chronic kidney disease, or end stage renal disease; N17.9 Acute kidney failure, unspecified; J96.11 Chronic respiratory failure with hypoxia; I24.8 Other forms of acute ischemic heart disease; N18.9 Chronic kidney disease, unspecified; J44.9 Chronic obstructive pulmonary disease, unspecified; Z99.81 Dependence on supplemental oxygen; E78.5 Hyperlipidemia, unspecified; I25.10 Atherosclerotic heart disease of native coronary artery without angina pectoris; G20 Parkinson's disease; E03.9 Hypothyroidism, unspecified; N40.0 Benign prostatic hyperplasia without lower urinary tract symptoms; K21.9 Gastro-esophageal reflux disease without esophagitis; I27.20 Pulmonary hypertension, unspecified; F32.A Depression, unspecified; M10.9 Gout, unspecified; D50.9 Iron deficiency anemia, unspecified; I48.0 Paroxysmal atrial fibrillation; I34.0 Nonrheumatic mitral (valve) insufficiency; K74.60 Unspecified cirrhosis of liver; R19.7 Diarrhea, unspecified; L27.0 Generalized skin eruption due to drugs and medicaments taken internally; T50.995A Adverse effect of other drugs, medicaments and biological substances, initial encounter; E87.5 Hyperkalemia; D63.1 Anemia in chronic kidney disease; Z85.46 Personal history of malignant neoplasm of prostate
CPT/HCPCS: 0241U-QW; 36415; 71045-TC-FY; 74018-TC-FY; 74019-TC-FY; 76705-TC; 76775-TC; 76856-TC; 76942-TC; 80048; 80053; 81003; 82042; 82150; 82272; 82436; 82465; 82570; 82945; 82962; 83036; 83605; 83615; 83735; 83880; 83986; 84100; 84133; 84157; 84300; 84478; 84484; 85025; 85027; 85610; 85730; 86803; 86850; 86900; 86901; 87040; 87070; 87075; 87077; 87081; 87086; 87102; 87116; 87186; 87205; 87206; 87210; 87324; 87340; 87449; 88108; 88305-TC; 93005; 93010; 94002; 94640; 97116-GP; 97162-GP; 99285-25; G0480; J1644; P9047; Q5106